=== PATIENT | female | born 1945 | race Caucasian/White ===

== ENCOUNTER → 2017-04-19 13:28 | Outpatient (CLI) | payer MEDICARE, SELFPAY ==
--- NOTE | 2017-04-19 13:34 | MRI_ITS ---
STUDY: MRI BRAIN WITH AND WITHOUT CONTRAST REASON FOR EXAM: Female, 72 years old. Chronic headaches TECHNIQUE: Standardized multiplanar fat and water weighted pulse sequences were obtained. 7 ml of Gadavist contrast material was administered intravenously for the contrast portion of the examination. COMPARISON: CT of the brain on April 17, 2014 FINDINGS: Mild atrophy and periventricular white matter ischemic changes without mass effect or restricted diffusion.. Normal bilateral basal ganglia. Normal thalami. There is no extra-axial fluid accumulation. Normal flow voids within the major intracranial circulation suggesting patency by spin echo criteria. Normal venous enhancement. There is no enhancing intra-axial or extra-axial abnormality. Normal sella turcica, pituitary gland, infundibular stalk, optic chiasm and hypothalamus. Normal tectal plate and pineal gland. Normal midbrain, swati and medulla. Normal cerebellum. Normal basal cisterns. Normal bilateral temporal bones. Normal bilateral internal auditory canals. There are postsurgical changes of the orbits.. There is mild mucosal thickening in the maxillary and ethmoid sinuses.. There are postsurgical changes involving the right maxillary antrum Normal calvarium and skull base. Normal visualized soft tissue structures. Normal visualized upper cervical spine. MRI/Brain W/WO Contrast IMPRESSION: Atrophy and periventricular white matter ischemic changes without evidence for acute infarct. No evidence for obstructive hydrocephalus mass or acute bleed. Bilateral maxillary and ethmoid sinus disease Electronically Signed: Steven Ratliff MD at 22:17 EST , Service support ,
== END ==
PROVIDERS: Family Provider Internal Medicine; PCP Internal Medicine; Visit Provider Internal Medicine
DX: R51 Headache (principal)
CPT/HCPCS: 70553; A9585

== ENCOUNTER → 2017-06-09 11:48 | Outpatient (CLI) | payer MEDICARE, SELFPAY ==
--- NOTE | 2017-06-09 11:52 | RAD_ITS ---
STUDY: X-RAY - THORACIC SPINE REASON FOR EXAM: Female, 72 years old. Chronic pain TECHNIQUE: 2 view(s) of the thoracic spine were obtained. COMPARISON: None. FINDINGS: Normal kyphosis of the thoracic spine. There is no substantial scoliosis. Normal thoracic vertebrae and endplates. Normal disc space heights. The soft tissue structures are unremarkable. RAD/Thoracic Spine 3 Views IMPRESSION: Normal x-ray examination of the thoracic spine. Electronically Signed: Jose Antonio Jensen DO at 0:00 EDT , Service support ,
--- NOTE | 2017-06-09 11:52 | RAD_ITS ---
STUDY: X-RAY - LUMBAR SPINE REASON FOR EXAM: Female, 72 years old. Chronic pain. TECHNIQUE: 5 view(s) of the lumbar spine were obtained. COMPARISON: Thoracic spine, June 09, 2017. FINDINGS: Normal lumbar lordosis. There is slight reversal of lumbar lordosis. There is a normal alignment of the vertebrae. There is multilevel endplate spondylosis of the lumbar vertebrae. There is multi-level degenerative disc disease with multi-level disc space narrowing. There is no evidence of acute fracture or loss of vertebral axial height. There is no demonstrated spondylolysis of the pars interarticulares. There is atherosclerotic calcification of the abdominal aorta without a demonstrated aneurysm. RAD/L/S Spine Min 4 Views IMPRESSION: Degenerative changes of the cervical spine without acute fracture or subluxation. Electronically Signed: Brennan Mike DO at 16:29 EDT Tel [phone], Service support ,
== END ==
PROVIDERS: Family Provider Internal Medicine; PCP Internal Medicine; Visit Provider Internal Medicine
DX: M47.896 Other spondylosis, lumbar region (principal); M51.16 Intervertebral disc disorders with radiculopathy, lumbar region; G89.29 Other chronic pain
CPT/HCPCS: 72072; 72110

== ENCOUNTER → 2017-07-07 09:28 | Outpatient (CLI) | payer MEDICARE, SELFPAY ==
[2017-07-07 10:25] LABS: AST(SGOT) 19 U/L (15-37); Alanine Aminotransfer ALT/SGPT 14 U/L (13-56); Albumin, Serum 3.7 g/dL (3.2-5.0); Alkaline Phosphatase 55 U/L (45-117); Bilirubin, Direct 0.09 mg/dL (0.00-0.30); Cholesterol 199 mg/dL (200); High Density Lipoprotein 80 mg/dL; Protein, Total 6.7 g/dL (6.4-8.2); Thyroid Stim Hormone (TSH) 5.71 uIU/mL (0.358-3.74); Triglycerides 92 mg/dL; Very Low Density Lipoprotein 18 mg/dL (5-40)
== END ==
PROVIDERS: Family Provider Internal Medicine; PCP Internal Medicine; Visit Provider Internal Medicine Cardiovascular Disease
DX: E78.5 Hyperlipidemia, unspecified (principal); R07.9 Chest pain, unspecified
CPT/HCPCS: 36415; 80061; 80076; 84443

== ENCOUNTER → 2017-07-15 06:15 | Outpatient (CLI) | payer MEDICARE, SELFPAY ==
--- NOTE | 2017-07-15 13:07 | STRESSREP ---
Stress Test Report Date: 07/15/2017 Procedure: Pharmacologic stress nuclear imaging study Indications: Chest pain Consent: Per the patient Procedure: The patient underwent pharmacologic (Regadenoson) evaluation with a peak heart rate of 90 beats per minute (60 predicted maximal heart rate) and a peak blood pressure of 158/52 mmHg. The baseline ECG demonstrated sinus rhythm; poor R-wave progression; nonspecific ST and T-wave abnormality. The peak pharmacologic ECG demonstrated no obvious ECG changes. There were no cardiac dysrhythmias pretest, during pharmacologic infusion, or recovery. There was no complaint of chest discomfort during pharmacologic infusion or recovery. The examination was discontinued secondary to completion of protocol. Impression: 1. Pharmacologic (Regadenoson) evaluation 2. Peak pharmacologic ECG with no obvious ECG changes. 3. There were no cardiac dysrhythmias pretest, during pharmacologic infusion, or recovery 4. Nuclear images pending Myocardial perfusion imaging study: Technique: The patient was injected with 11.7 millicuries of technetium 99m Cardiolite and subsequently rest SPECT Cardiolite nuclear imaging was obtained in the horizontal long, vertical long, and short axis views. The patient underwent pharmacologic (Regadenoson) evaluation with a peak heart rate of 90 beats per minute (60 % percent predicted maximal heart rate) and a peak blood pressure of 158/52 mmHg. The patient was injected with 3.5 millicuries of technetium 99m Cardiolite and subsequently stress SPECT Cardiolite nuclear imaging was obtained in the horizontal long, vertical long, and short axis views. A gated Cardiolite study at peak stress was obtained. Interpretation: Rest and stress SPECT Cardiolite nuclear imaging status post realignment, normalization, and attenuation correction demonstrate of uniform tracer uptake and myocardial perfusion appearing within normal limits. There is end systolic thickening and brightening. The gated Cardiolite study demonstrates myocardial thickening and inward wall motion. The reported LVEF is 70 %. Impression: 1. Rest and stress SPECT Cardiolite nuclear imaging demonstrate relative uniform tracer uptake and myocardial perfusion appearing within normal limits. 2. The gated Cardiolite study reports an LVEF of 70 %. This note was generated with [facility] software. It may contain incorrect words, spelling, and punctuation that were not noted in checking the note before signing.
== END ==
PROVIDERS: Family Provider Internal Medicine; PCP Internal Medicine; Visit Provider Internal Medicine Cardiovascular Disease
DX: I25.10 Atherosclerotic heart disease of native coronary artery without angina pectoris (principal); I48.0 Paroxysmal atrial fibrillation; I10 Essential (primary) hypertension; E78.5 Hyperlipidemia, unspecified; R07.9 Chest pain, unspecified
CPT/HCPCS: 78452; 93017; A9500; A4216; J2785

== ENCOUNTER → 2017-08-12 13:29 | Outpatient (CLI) | payer MEDICARE, SELFPAY ==
[2017-08-12 15:22] LABS: Thyroid Stim Hormone (TSH) 2.85 uIU/mL (0.358-3.74)
== END ==
PROVIDERS: Family Provider Internal Medicine; PCP Internal Medicine; Visit Provider Internal Medicine Cardiovascular Disease
DX: E03.9 Hypothyroidism, unspecified (principal)
CPT/HCPCS: 36415; 84443

== ENCOUNTER 2017-08-20 12:00 | Outpatient (RCR) | payer MEDICARE, SELFPAY ==
--- NOTE | 2017-07-07 14:27 | HP.PTEVAL_ITS ---
Patient's Visit Information LUPE ALCOCER is a 72 year old F referred to Physical Therapy by Zuri Gutierrez DO with a diagnosis of LOW BACK PAIN. Date of Evaluation: 07/07/17 Physical Therapist: Domenic Ayala PT, - Visit Plan Frequency: 2x /Week Duration: 5WEEKS Plan: POSTURAL EX'S,DLS ,MODALTIES - Subjective Subjective: This 72 y/o female presents with physical therapy low back pain for many years. Patient has symmtrical lumbar pain desribed ache. Patient seen DR barajas PT ,did x-rays. Symptoms worse with standing 5min ,walking,bending lifting. Symptoms resting in bed,ice. Patient has TENS unit. Denies parathesia/ tingling. Bowel/bladder good. Coughing/sneeezing increase symptoms. Sleeping good at night.Patient has h/o prior treatment PT cervical/lumbar. VOCATION: retired. SOCIAL: - Pain Bilateral Back Pain Intensity (Out of 10): 5 Pain Intensity Range: 10 - Objective POSTURE: mild foward posture,reduce lordosis ,mild thoracic kyphosis. GAIT: reciprocal pattern ,mild foward posture. NEURO:denies parathesia/tingling , reflexes L3-4,L4-5,L5-S1. PALAPTION: unremarkable. SYMMTRIES : align. MMT: quads/hams 4/5,4-/5,ankle 5/5. LUMBAR ROM: flexion min /mod loss ,mod extension ,side glides min loss. FLEXABLITY: hams min tight - Special Tests L/S Slump test left side: Negative L/S Slump test right side: Negative L/S Left Straight Leg Raise: Negative L/S Right Straight Leg Raise: Negative Lumbar Standing: Flexion - Mechanical Response: No effect Lumbar Standing: Flexion - Symptoms During Testing: Increases Lumbar Standing: Flexion - Symptoms After Testing: No worse Lumbar Standing: Extension - Mechanical Response: No effect Lumbar Standing: Extension - Symptoms During Testing: Increases Lumbar Standing: Extension - Symptoms After Testing: Worse - Goals Goal 1:: Independant with HEP. Goal Time Frame: 4-6 Weeks Goal 2:: Patient to be Independant with posture for ADL'S Goal Time Frame: 4-6 Weeks Goal 3:: Patient to decrease lumbar pain by 50% or greater to improve function Goal Time Frame: 4-6 Weeks Goal 4:: Patient improve lumbar ROM for function of recovery Goal Time Frame: 4-6 Weeks Goal 5:: Patient be able to perform ADL'S and housework tasks with min limiations Goal Time Frame: 4-6 Weeks - Rehabilitation Potential Physical Therapy Diagnosis: Patient has symmtrical lumbar pain which impairs ROM ,strength thus causes impairments with gait ,standing and ADL'S Rehabilitation Potential: Good - Anticipated Interventions Patient/Client Instruction: Educate patient on: Condition, Plan of Care For the Purpose of:: To decrease pain, To increase ROM, To improve muscle performance and motor function, To improve ability to perform ADL's, To improve ability of physical actions for home/community/work/leisure, To improve health of tissue, To decrease soft tissue restriction, To increase flexibility/ROM, To reduce risk of recurrence, To improve ability to perform tasks related to life management Therapeutic Exercise to Include: Strength training, Body mechanics, Postural training, Dynamic Lumbar Stabilization For the Purpose of:: To decrease pain, To increase ROM, To improve muscle performance and motor function, To increase tolerance to activity/condition/ position, To improve performance and independence with ADL's, To improve ability of physical actions for home/community/work/leisure, To improve health of tissue, To decrease soft tissue restriction, To improve ability to perform tasks related to life management Thank you for the opportunity to evaluate your patient. For Medicare and Medicare HMO plans, please review the plan of care and approve it. It will need to be FAXED BACK to us at [phone] for Medicare purposes. Please let me know if there are questions or concerns regarding this plan of care. Physician Signature: Date:
--- NOTE | 2017-08-06 12:06 | HP.PTREVAL_ITS ---
Zuri Gutierrez, DO, It has been my pleasure to treat LUPE ALCOCER over the last 7 visits for LOW BACK PAIN. Please see the progress note below for an update on the physical therapy plan of care! Subjective: Pt still has back pain. She reports that this is helping. She feels she is one big pain from head to knees with THOMPSON's. Pt is doing her exercises at home. Pt reports that she feels she can do her ADl's with min difficulty but stairs and laundry to the basement are hard. Objective/Function: Pt subjectively reports that the longer the day goes on the worse her posture gets. Stairs: up and down stairs recip with 1 hand rail. sit to stand: able to stand without UE support but a little unsteady. LUMBAR ROM: flexion 75% normal ROM, Ext 50% normal ROM, SB B 75% normal ROM ,. FLEXABLITY: hams min tight B ( alittle pain behind the knees with SLR testing). Plan Plan: Try to get 3 additiional visits from insurance to transfer to [facility] for core stability, Le strength, stretching..... Goals Goal 1:: Independant with HEP. Goal Time Frame: 4-6 Weeks Goal Progress: Goal Met Goal 2:: Patient to be Independant with posture for ADL'S Goal Time Frame: 4-6 Weeks Goal Progress: Progressing Goal 3:: Patient to decrease lumbar pain by 50% or greater to improve function Goal Time Frame: 4-6 Weeks Goal Progress: Progressing Goal 4:: Patient improve lumbar ROM for function of recovery Goal Time Frame: 4-6 Weeks Goal 5:: Patient be able to perform ADL'S and housework tasks with min limiations Goal Time Frame: 4-6 Weeks Goal Progress: Goal Met Anticipated Interventions Patient/Client Instruction: Educate patient on: Condition, Plan of Care For the Purpose of:: To decrease pain, To increase ROM, To improve muscle performance and motor function, To improve ability to perform ADL's, To improve ability of physical actions for home/community/work/leisure, To improve health of tissue, To decrease soft tissue restriction, To increase flexibility/ROM, To reduce risk of recurrence, To improve ability to perform tasks related to life management Therapeutic Exercise to Include: Strength training, Body mechanics, Postural training, Dynamic Lumbar Stabilization For the Purpose of:: To decrease pain, To increase ROM, To improve muscle performance and motor function, To increase tolerance to activity/condition/ position, To improve performance and independence with ADL's, To improve ability of physical actions for home/community/work/leisure, To improve health of tissue, To decrease soft tissue restriction, To improve ability to perform tasks related to life management Please do not hesitate to contact me at [phone] by phone or Fax: if you have questions or concerns regarding this new plan of care! Sincerely, Shanon Ferrara
--- NOTE | 2017-10-29 07:26 | HP.PTDCNRP_ITS ---
HP - Discharge Summary (1) - Patient Information LUPE ALCOCER was seen in my office for initial evaluation on 07/07/17. The following Plan of Care was established for this patient: Initial Frequency: 2x /Week Initial Duration: 5WEEKS - Anticipated Interventions Patient/Client Instruction: Educate patient on: Condition, Plan of Care For the Purpose of:: To decrease pain, To increase ROM, To improve muscle performance and motor function, To improve ability to perform ADL's, To improve ability of physical actions for home/community/work/leisure, To improve health of tissue, To decrease soft tissue restriction, To increase flexibility/ROM, To reduce risk of recurrence, To improve ability to perform tasks related to life management Therapeutic Exercise to Include: Strength training, Body mechanics, Postural training, Dynamic Lumbar Stabilization For the Purpose of:: To decrease pain, To increase ROM, To improve muscle performance and motor function, To increase tolerance to activity/condition/ position, To improve performance and independence with ADL's, To improve ability of physical actions for home/community/work/leisure, To improve health of tissue, To decrease soft tissue restriction, To improve ability to perform tasks related to life management This patient was last seen in our office 08/20/17. Pertinent comments regarding their Physical therapy will appear below: This patient seen for PT for low back pain for 9 visits DLS ,postural ex's , modalities for pain relieve then had a MRI . At this point ,patient is d/c . At this point I will be discontinuing this patient from physical therapy. I would be happy to see this patient again in the future if found appropriate by the physician. Thank you! Domenic Ayala, PT,
== END 2017-08-20 19:00 | disposition home or self-care (01) ==
LOC: PT 12:00
PROVIDERS: Family Provider Internal Medicine; PCP Internal Medicine; Visit Provider Internal Medicine
DX: M54.5 Low back pain (principal); E78.5 Hyperlipidemia, unspecified; R07.9 Chest pain, unspecified
CPT/HCPCS: 36415; 80061; 80076; 84443; 97035; 97110; 97162; 97530

== ENCOUNTER → 2017-08-25 16:27 | Outpatient (CLI) | payer MEDICARE, SELFPAY ==
--- NOTE | 2017-08-25 16:27 | DT_ITS ---
This patient was seen during an EMR downtime August 23, 2017 - August 30, 2017. This patient may have a combination of paper and electronic documentation or all paper documentation. All documentation is viewable within the e-chart portion of [facility] for each patient visit.
--- NOTE | 2017-08-25 16:30 | MRI_ITS ---
STUDY: MRI LUMBAR SPINE WITHOUT CONTRAST REASON FOR EXAM: Female, 72 years old. chronic low back pain, nki, no radiculopathy. TECHNIQUE: Standardized fat and water weighted pulse sequences were obtained in the sagittal and axial planes. COMPARISON: None FINDINGS: Normal lumbar lordosis. There is no substantial scoliosis. Normal conus medullaris that terminates at the L1 L1-2: There is mild disc space narrowing and anterior spondylosis. There is no significant central canal or foraminal stenosis. L2-3: There is moderate disc space narrowing and endplate spondylosis. There is a mild disc bulge asymmetric to the left with mild left foraminal stenosis. There is facet hypertrophy with mild central canal stenosis. There is no significant right foraminal stenosis. L3-4: There is moderate disc space narrowing and endplate spondylosis. There is a mild disc bulge and facet hypertrophy with mild central canal stenosis. There is mild bilateral foraminal stenosis. L4-5: There is moderate disc space narrowing and endplate spondylosis. There is moderate disc bulge asymmetric to the right with moderate right foraminal stenosis. There is facet hypertrophy with mild central canal and mild left foraminal stenosis. L5-S1: There is moderate disc space narrowing and endplate spondylosis. There is a mild disc bulge and facet arthropathy without significant central stenosis. There is moderate right and mild left foraminal stenosis. Normal visualized sacral ala. Normal visualized paraspinous soft tissue structures. MRI/Spine Lumbar (Routine) IMPRESSION: L4/L5: Moderate right foraminal stenosis. L5/S1: Moderate right foraminal stenosis Electronically Signed: Carlos Pizano MD at 8:39 EDT Tel , Service support ,
== END ==
PROVIDERS: Family Provider Internal Medicine; PCP Internal Medicine; Visit Provider Internal Medicine
DX: M54.5 Low back pain (principal)
CPT/HCPCS: 72148

== ENCOUNTER → 2017-11-10 12:41 | Outpatient (CLI) | payer MEDICARE, SELFPAY ==
[2017-11-10 13:37] LABS: Absolute Lymphocyte Count 1.23 X10^3/ul (0.83-4.51); Absolute Neutrophil Count 3.1 X10^3/uL (2.0-7.7); Basophil# 0.03 X10^3/uL; Basophil% 0.6 % (0-1); Eosinophil# 0.05 X10^3/uL; Hematocrit 36.1 % (37-47); Hemoglobin 11.9 g/dl (12.0-15.0); Lymphocyte # 1.23 X10^3/ul (4.0); Lymphocyte % 25.7 % (19-41); Mean Corpuscular Hgb 31.5 pg (27.0-32.0); Mean Corpuscular Volume 95.5 fL (81-99); Mean Platelet Vol. 10.2 fl (6.2-12.0); Monocyte# 0.39 X10^3/uL; Monocyte% 8.2 % (0-10); Neutrophil # 3.08 X10^3/uL (2.7-7.7); Neutrophil % 64.5 % (47-70); POSITIVE COUNT NO; POSITIVE DIFFERENTIAL NO; POSITIVE MORPHOLOGY NO; Platelet Count 274 K/mm3 (150-450); RBC Distribution Width CV 12.4 % (11.6-14.6); RBC Distribution Width SD 42.2 fl (35.1-43.9); Red Blood Count 3.78 M/mm3 (4.2-5.4); White Blood Count 4.8 K/mm3 (4.4-11.0)
[2017-11-10 14:05] LABS: Hemoglobin A1c 5.5 % (4.2-6.3)
[2017-11-10 14:10] LABS: BUN 30 mg/dL (7-18); Creatinine, Serum 1.56 mg/dL (0.55-1.02); EST Glomerular Filtration Rate 35 mL/min (>60); Glucose 96 mg/dL (74-106)
[2017-11-10 14:11] LABS: ALB/GLOB Ratio 1.2 RATIO (0.9-2.4); AST(SGOT) 25 U/L (15-37); Alanine Aminotransfer ALT/SGPT 21 U/L (13-56); Albumin, Serum 4.3 g/dL (3.2-5.0); Alkaline Phosphatase 39 U/L (45-117); Anion Gap 9 (5-15); BUN/Creat Ratio 19.2 RATIO (10-20); Calcium,Total 9.2 mg/dL (8.5-10.1); Chloride 102 mmol/L (98-107); Cholesterol 180 mg/dL (200); Est Glom Filt Rate - Afr Amer 42 mL/min (>60); Globulin 3.5 g/dL (2.2-4.2); High Density Lipoprotein 76 mg/dL; Potassium 3.7 mmol/L (3.5-5.1); Protein, Total 7.8 g/dL (6.4-8.2); Sodium Level 136 mmol/L (136-145); Thyroid Stim Hormone (TSH) 4.65 uIU/mL (0.358-3.74); Triglycerides 88 mg/dL; Very Low Density Lipoprotein 18 mg/dL (5-40)
== END ==
PROVIDERS: Family Provider Internal Medicine; PCP Internal Medicine; Visit Provider Internal Medicine
DX: R73.09 Other abnormal glucose (principal); E78.4 Other hyperlipidemia; R94.6 Abnormal results of thyroid function studies
CPT/HCPCS: 36415; 80053; 80061; 83036; 84443; 85025

== ENCOUNTER → 2017-12-10 10:06 | Outpatient (CLI) | payer MEDICARE, SELFPAY ==
--- NOTE | 2017-12-10 10:09 | CDU_ITS ---
Reason For Study: Stenosis Rt. Velocities/BP Lt. Velocities/BP Prox CCA 84.4/15.8 cm/sec. Prox CCA 89.6/9.43 cm/sec. Mid CCA 80.9/13.5 cm/sec. Mid CCA 101/19.6 cm/sec. Dist CCA 85/19.3 cm/sec. Dist CCA 83.3/17.3 cm/sec. Prox ICA 84.4/18.2 cm/sec. Prox ICA 105/18.1 cm/sec. Mid ICA 93.8/24.6 cm/sec. Mid ICA 86.6/17 cm/sec. Dist ICA 107/32.2 cm/sec. Dist ICA 87.9/21.7 cm/sec. Rt. ICA/CCA = 1.27. Lt. ICA/CCA = 1.17. Prox ECA 123 cm/sec. Prox ECA 87.9 cm/sec. Rt. Vert. 54.2/10.2 cm/sec. Lt. Vert. 64/15.3 cm/sec. Right Extracranial There is intimal thickening but no significant atherosclerotic plaque noted in the right common carotid artery. There is heterogeneous, irregular atherosclerotic plaque noted in the right internal carotid artery. There is heterogeneous, irregular atherosclerotic plaque noted in the right external carotid artery. Antegrade flow is noted in the right vertebral artery. Left Extracranial There is intimal thickening but no significant atherosclerotic plaque noted in the left common carotid artery. There is heterogeneous, smooth atherosclerotic plaque noted in the left internal carotid artery. There is heterogeneous, smooth atherosclerotic plaque noted in the left external carotid artery. Antegrade flow is noted in the left vertebral artery. Procedure Carotid Duplex 25072. Exam performed in department. Interpretation Summary Mild (<50%) stenosis right extracranial internal carotid. Mild (<50%) stenosis left extracranial internal carotid. Flow within the vertebral arteries is antegrade bilaterally. Ordering Physician: Zuri Gutierrez Referring Physician: Zuri Gutierrez Performed By: Riaz Ashley RVT and Student
--- NOTE | 2017-12-10 10:48 | BI_ITS ---
MAMMOGRAPHY - BILATERAL SCREENING REASON FOR EXAM: Female, 72 years old. Routine annual screening examination. PERTINENT HISTORY: Sister with breast cancer. TECHNIQUE: Digital bilateral breast pee (3D mammographic acquisition) in the CC and MLO projections. 2-D mediolateral oblique (MLO) and craniocaudad (CC) views of both breasts were obtained. CAD: Full Field Digital Mammography with Computer Added Detection was performed. COMPARISON: Comparison is made with prior examination dated November 19, 2016 and November 19, 2015. FINDINGS: Breast Composition: The breasts are heterogeneously dense, which may obscure small masses. There are no dominant masses or suspicious calcifications. Stable bilateral secretory calcification. No other significant abnormalities are identified. There has been no significant change since the prior study. BI/SCREENING MAMM (CAD), BILAT IMPRESSION: Stable bilateral screening mammogram. Yearly follow-up mammogram recommended. (A) ASSESSMENT CATEGORY: BIRADS Category 2: Benign. A letter regarding these results will be sent to the patient by the facility within 30 days. Approximately 10% of breast cancers are not detected by mammography. A normal mammogram should not delay biopsy of a clinically suspicious abnormality. [id number] Electronically Signed: Johnny Gilman MD at 13:14 EDT Tel [phone], Service support ,
== END ==
PROVIDERS: Family Provider Internal Medicine; PCP Internal Medicine; Visit Provider Internal Medicine
DX: I65.23 Occlusion and stenosis of bilateral carotid arteries (principal); Z12.31 Encounter for screening mammogram for malignant neoplasm of breast
CPT/HCPCS: 77063; 77067; 93880

== ENCOUNTER → 2017-12-23 11:25 | Outpatient (CLI) | payer MEDICARE, SELFPAY ==
--- NOTE | 2017-12-23 11:30 | RAD_ITS ---
STUDY: X-RAY - THORACIC SPINE REASON FOR EXAM: Female, 72 years old. Upper back pain TECHNIQUE: 2 view(s) of the thoracic spine were obtained. COMPARISON: 06/09/2017 FINDINGS: There is an increase in the normal thoracic kyphosis. There is no substantial scoliosis. There is multilevel endplate spondylosis of the thoracic vertebrae. There is multilevel disc space narrowing of the thoracic spine. The soft tissue structures are unremarkable. RAD/Thoracic Spine 2 Views IMPRESSION: Multilevel degenerative changes, no demonstrated fracture Electronically Signed: Deshawn Odonnell MD at 15:23 EDT , Service support ,
--- NOTE | 2017-12-23 11:31 | RAD_ITS ---
STUDY: X-RAY - CERVICAL SPINE REASON FOR EXAM: Female, 72 years old. Neck pain and headache TECHNIQUE: 3 view(s) of the cervical spine were obtained. COMPARISON: 2015 FINDINGS: Normal anterior atlantoaxial articulation. Normal odontoid process. Normal cervical lordosis. There is multi-level endplate spondylosis. There is multi-level degenerative disc disease with multilevel disc space narrowing. The soft tissue structures are unremarkable. There is no demonstrated fracture of the cervical spine. RAD/Cerv Spine 2 or 3 Views IMPRESSION: Multilevel degenerative changes, no demonstrated fracture Electronically Signed: Deshawn Odonnell MD at 15:23 EDT , Service support ,
== END ==
PROVIDERS: Family Provider Internal Medicine; PCP Internal Medicine; Referring Provider Nurse Practitioner Family; Visit Provider Nurse Practitioner Family
DX: M54.6 Pain in thoracic spine (principal); M54.2 Cervicalgia
CPT/HCPCS: 72040; 72070

== ENCOUNTER → 2018-02-16 09:09 | Outpatient (CLI) | payer MEDICARE, SELFPAY ==
[2018-01-25 11:19] VITALS: BMI 25.0
[2018-02-16 10:30] LABS: Absolute Lymphocyte Count 1.48 X10^3/ul (0.83-4.51); Basophil# 0.04 X10^3/uL; Eosinophil# 0.13 X10^3/uL; Eosinophils% 3.2 % (0-5); Hematocrit 36.7 % (37-47); Hemoglobin 11.2 g/dl (12.0-15.0); Lymphocyte # 1.48 X10^3/ul (4.0); Lymphocyte % 36.8 % (19-41); Mean Corp Hgb Conc 30.5 g/gl (32-36); Mean Corpuscular Hgb 30.8 pg (27.0-32.0); Mean Corpuscular Volume 100.8 fL (81-99); Mean Platelet Vol. 10.2 fl (6.2-12.0); Monocyte# 0.37 X10^3/uL; Monocyte% 9.2 % (0-10); Neutrophil % 49.8 % (47-70); Platelet Count 249 K/mm3 (150-450); RBC Distribution Width CV 13.1 % (11.6-14.6); RBC Distribution Width SD 48.1 fl (35.1-43.9); Red Blood Count 3.64 M/mm3 (4.2-5.4)
[2018-02-16 10:41] LABS: POSITIVE COUNT NO; POSITIVE DIFFERENTIAL NO; POSITIVE MORPHOLOGY NO
[2018-02-16 11:01] LABS: Hemoglobin A1c 5.5 % (4.2-6.3)
[2018-02-16 11:13] LABS: ALB/GLOB Ratio 1.1 RATIO (0.9-2.4); AST(SGOT) 12 U/L (15-37); Alanine Aminotransfer ALT/SGPT 17 U/L (13-56); Albumin, Serum 3.6 g/dL (3.2-5.0); Alkaline Phosphatase 40 U/L (45-117); Anion Gap 7 (5-15); BUN 25 mg/dL (7-18); BUN/Creat Ratio 20.3 RATIO (10-20); Calcium,Total 9.2 mg/dL (8.5-10.1); Chloride 108 mmol/L (98-107); Cholesterol 183 mg/dL (200); Creatinine, Serum 1.23 mg/dL (0.55-1.02); EST Glomerular Filtration Rate 46 mL/min (>60); Est Glom Filt Rate - Afr Amer 55 mL/min (>60); Globulin 3.4 g/dL (2.2-4.2); Glucose 90 mg/dL (74-106); High Density Lipoprotein 80 mg/dL; Potassium 4.4 mmol/L (3.5-5.1); Sodium Level 144 mmol/L (136-145); Triglycerides 82 mg/dL; Very Low Density Lipoprotein 16 mg/dL (5-40)
--- OUTSIDE RECORDS SUMMARY | 2018-04-13 15:05 | XMS RPT_ITS | Continuity of Care Document ---
:1945 Author Organization [facility] Address [address] [facility] [address] [place] [address] Phone Care Team Providers Name Role Phone Enrike Jaimes DO Unavailable Cipriano JC, Mike Avelar Unavailable Dayron Monique Unavailable Domenic Navarrete Nixa Unavailable Steven Carlisle MD Unavailable [facility]ly [facility], [facility] Unavailable Phong Graham Unavailable Mao Benitez Unavailable Unavailable Sonam Adams Unavailable Unavailable Albert JC, Madyson Roman Unavailable Unavailable Unavailable Problems Name Dates Details Abnormal stress test (R94.39, 794.39) Status: Active Abnormal TSH (R79.89, 790.6) Comments: adjust meds Status: Active Actinic keratoses (L57.0, 702.0) Comments: cryo x 1 lesion left foreram 45 sec with good response consent signed Status: Active Arthritis (M19.90, 716.90) Status: Active Atrial fibrillation (I48.91, 427.31) Status: Active Bilateral carotid artery stenosis (I65.23, 433.10) Comments: risk factor modificaion Status: Active BMI 25.0-25.9,adult (Z68.25, V85.21) Status: Active Bronchitis, acute (J20.9, 466.0) Status: Active Chest pain at rest (R07.9, 786.50) Status: Active Chronic headaches (R51, 784.0) Comments: and memory loss- abnormal ct of brain Status: Active Chronic low back pain without sciatica (M54.5, 724.2) Status: Active Chronic right shoulder pain (M25.511, 719.41) Status: Active Chronic thoracic back pain (M54.6, 724.1) Status: Active COPD (chronic obstructive pulmonary disease) (J44.9, 496) Status: Active Coronary artery disease (I25.10, 414.00) Status: Active Deliveries (Parity) Comments: 1. 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, 724.02) Status: Active Gastroesophageal reflux disease without esophagitis (K21.9, 530.81) Comments: chronic stable-continue present regimen Status: Active Headache (R51, 784.0) Status: Active Hypertension, benign (I10, 401.1) Comments: chronic stable-continue present regimen Status: Active 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 (G43.719, 346.71) Status: Active Low back pain (Renamed from Lumbago) (M54.5, 724.2) Status: Active Lung nodule (R91.1, 793.11) Status: Active [facility] Physical Status: Active [facility] PHYSICAL Status: Active Medicare annual wellness visit, initial (Z00.00, V70.0) Status: Active Memory loss (R41.3, 780.93) Comments: she see neuro Status: Active Need for prophylactic vaccination and inoculation against influenza (Renamed from Need for immunization against influenza) (Z23, V04.81) Status: Active Need for prophylactic vaccination and inoculation against influenza (Renamed from Need for immunization against influenza) (Z23, V04.81) Status: Active Obstructive sleep apnea, adult (G47.33, 327.23) Status: Active Orthostasis (I95.1, 458.0) Comments: push fluids support hose slow position change and change losarten to lunch Status: Active Other hyperlipidemia (E78.49, 272.4) Comments: good control Status: Active Other osteoporosis (M81.8, 733.09) Comments: we are ordering prolia Status: Active Pneumococcal vaccination given (Z23, V06.6) Status: Active Postmenopausal (Renamed from Postmenopausal status) (Z78.0, V49.81) Status: Active Pregnancies () Comments: 1. Status: Active Pulmonary emboli (I26.99, 415.19) Comments: last cta shows improve Status: Active Thoracic spine pain (M54.6, 724.1) Comments: has had pt nsaids and xrays still painful Status: Active Tobacco abuse, in remission (Renamed from Tobacco dependence in remission) (F17.201, V15.82) Status: Active Trigger finger of left thumb (M65.312, 727.03) Status: Active Unspecified Diagnosis Status: Active Medications Name Dates Details Advair Diskus 250-50 MCG/DOSE Inhalation Aerosol Powder Breath Activated 1 puff Aero Pow Br Act bid for 90 days Quantity: 3 {Disk} Refills: 3 Ordered:25-Jan-2017 Fast DO Enrike AFast DO, Enrike A Start : 25-Jan-2017 Active AMIODARONE HCL, 200MG (Oral Tablet) 1 (one) Tablet Tablet two times daily for 30 days Quantity: 60 {Tablet} Refills: 0 Ordered:02-Jul-2015 Fast DO, Enrike AFast DO, Enrike A Start : 02-Jul-2015 Active AmLODIPine Besylate 10 MG Oral Tablet 1 (one) Tablet daily for 90 days Quantity: 90 {Tablet} Refills: 3 Ordered:09-Oct-2017 Faviocatalina HUSAINnj MCDUFFIE, Enrike A Start : 09-Oct-2017 Active ASPIRIN LOW DOSE, 81MG (Oral Tablet) 1 tab daily (81 MG) Active Atorvastatin Calcium 80 MG Oral Tablet 1 (one) Tablet daily for 0 days Quantity: 90 {Tablet} Refills: 3 Ordered:22-Feb-2018 Enrike LISHAnj DO, Enrike A Start : 22-Feb-2018 Active CALCIUM, 500MG (Oral Tablet) 2 tabs daily (500 MG) Active Carvedilol 25 MG Oral Tablet 1/2 Tablet bid for 0 days Quantity: 90 {Tablet} Refills: 3 Ordered:07-Mar-2018 Favioa LISHAnj MCDUFFIE, Enrike A Start : 07-Mar-2018 Active Dexilant 60 MG Oral Capsule Delayed Release 1 (one) Capsule DR daily for 90 days Quantity: 90 {Capsule} Refills: 3 Ordered:26-Jan-2018 Mao Benitez Start : 26-Jan-2018 Active DULoxetine HCl 60 MG Oral Capsule Delayed Release Particles 1 (one) Capsule qd in evening for 0 days Quantity: 90 {Capsule} Refills: 3 Ordered:22-Feb-2018 Faviocatalina HUSAINnj MCDUFFIE, Enrike A Start : 22-Feb-2018 Active IPRATROPIUM BROMIDE, 0.06% (Nasal Solution) 2 sprays each nostril daily (0.06 %) Active Isosorbide Dinitrate 30 MG Oral Tablet 1 tab Tablet daily for 0 days Quantity: 90 {Tablet} Refills: 3 Ordered:22-Feb-2018 Faviocatalina HUSAINnj MCDUFFIE, Enrike A Start : 22-Feb-2018 Active Levothyroxine Sodium 25 MCG Oral Tablet 1 (one) Tablet qd for 0 days Quantity: 114 {Tablet} Refills: 3 Ordered:22-Feb-2018 Favioa LISHAnj DO, Enrike A Start : 22-Feb-2018 Active Comments:2 on sat and sun Losartan Potassium-HCTZ 100-25 MG Oral Tablet 1 (one) Tablet qd for 90 days Quantity: 90 {Tablet} Refills: 3 Ordered:26-Jan-2018 Mao Benitez Start : 26-Jan-2018 Active Meloxicam 15 MG Oral Tablet 1 (one) Tablet daily for 90 days Quantity: 90 {Tablet} Refills: 3 Ordered:05-Aug-2017 Enrike Jaimes DO, DO, Enrike Arnold Start : 05-Aug-2017 Active Montelukast Sodium 10 MG Oral Tablet 1 (one) Tablet daily for 90 days Quantity: 90 {Tablet} Refills: 3 Ordered:01-Mar-2018 Enrike Jaimes DO, DO, Enrike Arnold Start : 01-Mar-2018 Active MULTIVITAMIN (PO Tab) 1 (one) daily Active Prolia 60 MG/ML Subcutaneous Solution 1 (one) Solution Solution 1 injection every 6 months for 0 days Quantity: 1 {Pre-filled_Pen_Syringe} Refills: 1 Ordered:12-Jul-2017 Enrike Jaimes DO, DO, Debra A Start : 12-Jul-2017 Active Comments:Pt gets funding thru the [employer] so send a bill to either them or the pt and then they will [id number] 07/28/16 RaNITidine HCl 300 MG Oral Tablet 1 tab Tablet daily for 90 days Quantity: 90 {Tablet} Refills: 3 Ordered:26-Jan-2018 Mao Benitez Start : 26-Jan-2018 Active VITAMIN E, 400UNIT (Oral Tablet) 1 (one) daily (400 UNIT) Active Xarelto 20 MG Oral Tablet 1 (one) Tablet daily for 0 days Quantity: 30 {Tablet} Refills: 3 Ordered:17-Jan-2018 Enrike Jaimes DO, DO, Enrike Arnold Start : 17-Jan-2018 Active Cefdinir 300 MG Oral Capsule 1 (one) Capsule bid for 0 days Quantity: 28 {Capsule} Refills: 0 Ordered:09-Jun-2017 Mao Benitez Start : 13-Apr-2017 End : 09-Jun-2017 Inactive Hydrocodone-Acetaminophen 5-325 MG Oral Tablet 1 (one) Tablet q 8 hours prn for 0 days Quantity: 20 {Tablet} Refills: 0 Ordered:17-Nov-2017 MONICA Ruelas Start : 13-Aug-2017 End : 17-Nov-2017 Inactive Comments:twenty Klor-Con M20 20 MEQ Oral Tablet Extended Release 1 (one) Tablet ER bid for 5 days Quantity: 10 {Tablet} Refills: 0 Ordered:09-Apr-2016 Madyson Montiel MD Start : 09-Apr-2016 End : 14-Apr-2016 Inactive LEVAQUIN, 500MG (Oral Tablet) 1 (one) Tablet daily [id number] for 14 days Quantity: 14 {Tablet} Refills: 0 Ordered:23-Apr-2014 Enrike Jaimes DO, DO Enrike A Start : 23-Apr-2014 End : 07-May-2014 Inactive Comments:with probiotic PredniSONE 10 MG Oral Tablet 3 (three) Tablet pills for 3 days 2 pils for 3 days 1 pill for 3 days for 0 days Quantity: 18 {Tablet} Refills: 0 Ordered:26-Mar-2017 Enrike Jaimes DOnj Enrike A Start : 02-Feb-2017 End : 26-Mar-2017 Inactive Comments:take with food in [facility] meloxicam while on this Promethazine HCl 12.5 MG Oral Tablet 1 (one) Tablet q 6 hours prn for 0 days Quantity: 20 {Tablet} Refills: 0 Ordered:14-Apr-2016 MONICA Ruelas Start : 09-Apr-2016 End : 14-Apr-2016 Inactive Comments:twenty TRAMADOL HCL, 50MG (Oral Tablet) 1 (one) Tablet daily for 30 days Quantity: 30 {Tablet} Refills: 0 Ordered:24-Oct-2014 Enrike Jaimes DO, DO Enrike A Start : 24-Oct-2014 End : 23-Nov-2014 Inactive Comments:thirty VITAMIN D3, 1000UNIT (Oral Capsule) 1 cap daily (1000 UNIT) Inactive Amitriptyline HCl 10 MG Oral Tablet 2 (two) Tablet daily for 90 days Quantity: 180 {Tablet} Refills: 3 Ordered:04-Sep-2016 Sonam Adams Start : 31-May-2015 End : 04-Sep-2016 Discontinued DIVALPROEX SODIUM, 500MG (Oral Tablet Delayed Release) [address] daily for 0 days Quantity: 60 {Tablet} Refills: 0 Ordered:13-Nov-2014 Enrike Jaimes DO, DO Enrike A Start : 13-Nov-2014 End : 13-Nov-2014 Discontinued Comments:Dr. Navarrete RANITIDINE HCL, 300MG (Oral Capsule) 1 cap daily (300 MG) End : 17-Jul-2015 Discontinued Allergies and Adverse Reactions Name Dates Details No Known Allergies (Allergy) Onset: 25-Dec-2016 Status: Active No Known Drug Allergies (Allergy) Onset: 16-Apr-2014 Status: Active Past Medical History Name Dates Details Abnormal CT of the chest (R93.89, 793.2) Status: Resolved as of 16-Nov-2017 Abnormal urine (R82.90, 791.9) Status: Inactive as of 18-Dec-2016 Acute bronchitis (J20.9, 466.0) Status: Resolved as of 16-Nov-2017 Acute pain of left knee (M25.562, 719.46) Comments: seeing knapic Status: Resolved as of 18-Dec-2016 Acute sinusitis (J01.90, 461.9) Status: Resolved as of 16-Nov-2017 Allergic rhinitis (J30.9, 477.9) Status: Inactive as of 09-Jun-2017 Anemia (D64.9, 285.9) Status: Resolved as of 16-Nov-2017 Atypical chest pain (R07.89, 786.59) Comments: think fibro - has had thorough cardio pulm workup and tender to touch on exam Status: Resolved as of 18-Dec-2016 BMI 22.0-22.9, adult (Z68.22, V85.1) Status: Inactive as of 09-Jun-2017 BMI 23.0-23.9, adult (Z68.23, V85.1) Status: Inactive as of 22-Feb-2018 BMI 24.0-24.9, adult (Z68.24, V85.1) Status: Resolved as of 16-Nov-2017 BMI 24.0-24.9, adult (Z68.24, V85.1) Status: Resolved as of 17-Nov-2017 BMI 25.0-25.9,adult (Z68.25, V85.21) Status: Resolved as of 18-Dec-2016 Body mass index (BMI) 23.0-23.9, adult (Z68.23, V85.1) Status: Resolved as of 18-Dec-2016 Chest pain, unspecified type (R07.9, 786.50) Comments: has had 2 stress test in last month and cta of chest which show clots gone and had rencent pneumonia- so will followup onthat?? wonder musclular?rib out of place Status: Resolved as of 18-Dec-2016 COPD exacerbation (J44.1, 491.21) Status: Resolved as of 16-Nov-2017 Cough (R05, 786.2) Status: Inactive as of 09-Jun-2017 Cough (R05, 786.2) Comments: see pulm Status: Resolved as of 25-Sep-2014 D-dimer, elevated (R79.89, 790.92) Status: Resolved as of 23-Apr-2014 Dehydration (E86.0, 276.51) Comments: had liter of fluid last , feeling better, needs labs checked today been taking potassium bid doing betetr now eating and drinking now. Status: Resolved as of 14-Apr-2016 Drug toxicity (R89.2, 796.0) Status: Resolved as of 14-Jun-2014 Encounter for screening mammogram for breast cancer (Renamed from Encounter for screening mammogram for malignant neoplasm of breast) (Z12.31, V76.12) Status: Resolved as of 16-Nov-2017 Fatigue (R53.83, 780.79) Status: Resolved as of 16-Nov-2017 Gastroenteritis (K52.9, 558.9) Comments: think. iral seeing this now. evualate at home with meds and [facility] i went to house, called in [employer] [employer], told her brat diet slowly, my nurse went out to finish IV and draw labs. Status: Resolved as of 16-Nov-2017 Hypokalemia (E87.6, 276.8) Comments: will recheck related to diarrhea and vomting. Status: Resolved as of 16-Nov-2017 Impaired Fasting Glucose (Renamed from Elevated fasting blood sugar) (R73.01, 790.21) Status: Resolved as of 16-Nov-2017 Muscle pain, cervical (M54.2, 723.1) Status: Resolved as of 16-Nov-2017 Nausea (R11.0, 787.02) Status: Resolved as of 16-Nov-2017 Neck pain (M54.2, 723.1) Comments: doing pt some improve Status: Inactive as of 09-Jun-2017 Need for zoster vaccination (Renamed from Need for shingles vaccine) (Z23, V04.89) Status: Resolved as of 16-Nov-2017 Neoplasm of uncertain behavior of skin (D48.5, 238.2) Comments: 5 mm punch biopsy left forearm done after consent signed and 1percent lido with epi for anesthesia- patient tolerated well discussed risk bleeding infection- may need more removal done if cancer- sent for pathology Status: Resolved as of 16-Nov-2017 Non-smoker (Z78.9, V49.89) Status: Resolved as of 16-Nov-2017 Other specified nutritional anemias (D53.8, 281.8) Comments: chronic stable-continue present regimen Status: Resolved as of 16-Nov-2017 Precordial pain (R07.2, 786.51) Status: Resolved as of 16-Nov-2017 Right upper quadrant pain (R10.11, 789.01) Status: Resolved as of 16-Nov-2017 screening Status: Inactive as of 11-Feb-2015 Shortness of breath at rest (R06.02, 786.05) Status: Resolved as of 16-Nov-2017 Swelling of Limb (Renamed from Limb swelling) (M79.89, 729.81) Status: Resolved as of 23-Apr-2014 Syncopal episodes (R55, 780.2) Status: Resolved as of 16-Nov-2017 Syncope (R55, 780.2) Status: Resolved as of 14-Jun-2014 Unspecified Diagnosis Status: Resolved as of 16-Nov-2017 Unspecified Diagnosis Status: Inactive as of 11-Feb-2015 Unstable angina (I20.0, 411.1) Status: Resolved as of 16-Nov-2017 Procedures Procedure Dates Details bone spur right foot Completed Jaw Surgery Completed Sinus Surgery Completed Date Value Details 25-Jan-2018 Oncology Visit Report Result: Comments: See Note; NOTES: [facility] [address] [place] [address] [place] [address] OFFICE VISIT Date of Service: 01/25/18 1145 MR#: [id number] Acct: [id number] Name: LUPE LOPEZ Rep #: [id number] : 1945 From: Red Spaulding MD Age/Sex: 72/F Location: OMD Status: Signed Subjective - Date of Service Date of Service:: 01/25/18 - Chief Complaint F/u for anemia and Neutro penia - History of Present Illness Ms. Lupe Lopez is a pleasant 72 year old woman with a past medical history for coronary artery disease, arthritis, osteoporosis, KATINA and hypertension who present ed with incidental findings of leukopenia and anemia. Subsequently she underwent BMBX 07/31/2014, which showed variable cellular marrow, multiple minute lymphoid aggregates in clot section (polytopic by IHC). She developed an unprovoked PE 06/13/15. Began Xarelto and continues per cardiology for management of paroxysmal atrial fibrillation. She was found to have iron deficiency and started on Iron and o range juice. She comes in for follow up. - Past Medical/Social History Past Medical History Past Medical History: Anemia,COPD,Heart disease,Hyperlipidemia, Hypertension,Pneumonia Other Past Medical Hi story: Cough Pulmonary Embolism Past Surgical History Other Surgical History: Jaw surgery, sinus surgery, foot surgery, hand surgery Mole removed 12-10-15\ skin leison on forehead and left elbow remov ed pre cancer 12-25-16 Family History Paternal Past Medical History: Unknown Paternal History of Cancer Bone cancer Maternal Past Medical History: Unknown Social History Social History: No changes Sm oking Status Former smoker Review of Systems Constitutional:: Denies: Fever, Sweats, Weight loss, Appetite change, Chills Cardiovascular:: Denies: Chest pain, Palpitations, Dyspnea on exertion, Ortho pnea, PND, Shortness of breath Respiratory: Denies: Cough, Hemoptysis, Shortness of Breath, Wheezing Gastrointestinal:: Denies: Abdominal pain, Nausea, Vomiting, Diarrhea, Constipation, Hematochezia Gen itourinary: Denies: Dysuria, Hematuria, 15, Flank pain Musculoskeletal:: Denies: Back pain, Myalgia, Arthralgia Skin: Denies: Rash, Skin Changes, Wounds Neurological:: Denies: Headache, Dizziness, Visua l changes, Tinnitus, Hearing loss Psychiatric: Denies: Anxiety, Depression, Homicidal Ideations, Suicidal Ideations Vital Signs Height 5 ft 5 in Weight: 68.266 kg Weight in Pounds 150.5 lbs Pulse Ox 98 - Physical Exam General: Alert, Oriented x3, No apparent distress HEENT: Atraumatic, PERRLA, EOMI, Normocephalic Oropharynx:: Dry mucosa Neck:: Supple, Trachea midline. Negative for: JVD, bilateral Cardiac:: Regular rate, Regular rhythm, Normal S1, Normal S2. Negative for: Murmur Lungs: Clear to auscultation, Excusion symmetrical. Negative for: Rhonchi, Wheezes Laboratory Data: Laboratory Tests Assessment and Plan Iron Deficiency-resolved. Anemia-mild and cyclical. Neutropenia- mild and cyclical. Clinically stable, no need for therapy. Plan is to continue Iron supplements with Vitamin C o r [place] juice. Check stool for FOBT. RTC 6 months with CBC, CMP, Iron studies. Medications: Prescriptions This Visit Medication Instructions Recorded Meloxicam [Mobic] 15 mg PO DAILY 06/16/16 Rivaroxa ban [Xarelto] 20 mg PO DAILY 06/29/16 Primary Care Provider: Enrike Jaimes DO Referring Provider: - Problem List (1) Iron deficiency Status: Resolved (2) Anemia Status: Chronic Qualifiers: Anemia typ e: unspecified type Qualified Code(s): D64.9 - Anemia, unspecified (3) Leukopenia Status: Chronic Code Visit Office Visits / Consults: 39629 OV L3 Est 01/25/18 1153 <Electronically signed by Red Spaulding MD> Date Red Spaulding MD Cosigner Signature: Date (if applicable) CC: Enrike Jaimes DO 23-Dec-2017 Cerv Spine 2 or 3 Views Result: Comments: See Note; NOTES: [facility] Imaging Services [address] [place] [id number] Cerv Spine 2 or 3 Views MR#: [id number] Acct: [id number] Name: LUPE LOPEZ Rep #: [id number] : 1945 F 72 From: Ming Odonnell MD PCP: Enrike Jaimes DO Status: REG CLI Study: Cerv Spine 2 or 3 Views Date of Exam: 12/23/17 Exam# [id number] Ordering Dr: Karla Berry EXECUTIVE ADMINISTRATIVE ASSISTANT-C STUDY: X-RAY - C ERVICAL SPINE REASON FOR EXAM: Female, 72 years old. Neck pain and headache TECHNIQUE: 3 view(s) of the cervical spine were obtained. COMPARISON: 2015 FINDINGS: N ormal anterior atlantoaxial articulation. Normal odontoid process. Normal cervical lordosis. There is multi-level endplate spondylosis. There is multi-level degenerative disc disease with multilevel di sc space narrowing. The soft tissue structures are unremarkable. There is no demonstrated fracture of the cervical spine. RAD/Cerv Spine 2 or 3 Views IMPRESSION: Multilevel degenerative changes, no demonstrated fracture Electronically Signed: Deshawn Odonnell MD at 15:23 EDT , Service support , Fax CC: Enrike Jaimes DO; Karla Berry Sugar Cane Grower: Signed 23-Dec-2017 Thoracic Spine 2 Views Result: Comments: See Note; NOTES: [facility] Imaging Services [address] [place] [id number] Thoracic Spine 2 Views MR#: [id number] Acct: [id number] Name: LUPE LOPEZ Rep #: [id number] : 1945 F 72 From: Ming Odonnell MD PCP: Enrike Jaimes DO Status: REG CLI Study: Thoracic Spine 2 Views Date of Exam: 12/23/17 Exam# [id number] Ordering Dr: Karla Berry STUDY: X-RAY - THO RACIC SPINE REASON FOR EXAM: Female, 72 years old. Upper back pain TECHNIQUE: 2 view(s) of the thoracic spine were obtained. COMPARISON: 06/09/2017 FINDINGS: There is an increase in the normal thoracic kyphosis. There is no substantial scoliosis. There is multilevel endplate spondylosis of the thoracic vertebrae. There is multilevel disc space narrowing of the th oracic spine. The soft tissue structures are unremarkable. RAD/Thoracic Spine 2 Views IMPRESSION: Multilevel degenerative changes, no demonstrat ed fracture Electronically Signed: Deshawn Odonnell MD at 15:23 EDT , Service support , CC: Enrike Jaimes DO; Karla LOPEZ Prebish Sugar Cane Grower: Signed 11-Dec-2017 Carotid Duplex Ultrasound Result: Comments: See Note; NOTES: [facility] Cardiovascular Services [address] [place] [address] Carotid Duplex Ultrasound 12/10/17 1013 MR#: [id number] Acct: [id number] Name: LUPE BOOGIE Rep #: [id number] : 1945 72 From: Brice Murphy MD Attending Dr: Enrike Jaimes DO Status: REG CLI Ordering Dr: Enrike Jaimes DO Date: 12/10/17 Location: [facility] Sex: F C Admitted: Reason For Study: Stenosis Rt. Velocities/BP Lt. Velocities/BP Prox CCA 84.4/15.8 cm/sec. Prox CCA 89.6/9.43 cm/sec. Mid CCA 80.9/13.5 cm/sec. Mid CCA 101/19.6 cm/sec. Dist CCA 85/19.3 cm/sec. Dist CCA 83.3/1 7.3 cm/sec. Prox ICA 84.4/18.2 cm/sec. Prox ICA 105/18.1 cm/sec. Mid ICA 93.8/24.6 cm/sec. Mid ICA 86.6/17 cm/sec. Dist ICA 107/32.2 cm/sec. Dist ICA 87.9/21.7 cm/sec. Rt. ICA/CCA = 1.27. Lt. ICA/CCA = 1.17. Prox ECA 123 cm/sec. Prox ECA 87.9 cm/sec. Rt. Vert. 54.2/10.2 cm/sec. Lt. Vert. 64/15.3 cm/sec. Right Extracranial There is intimal thickening but no significant atherosclerotic plaque noted in the right common carotid artery. There is heterogeneous, irregular atherosclerotic plaque noted in the right internal carotid artery. There is heterogeneous, irregular atherosclerotic plaque noted in th e right external carotid artery. Antegrade flow is noted in the right vertebral artery. Left Extracranial There is intimal thickening but no significant atherosclerotic plaque noted in the left common carotid artery. There is heterogeneous, smooth atherosclerotic plaque noted in the left internal carotid artery. There is heterogeneous, smooth atherosclerotic plaque noted in the left external carotid artery. Antegrade flow is noted in the left vertebral artery. Procedure Carotid Duplex 24571. Exam performed in department. Interpretation Summary Mild (<50%) stenosis right extracranial inter nal carotid. Mild (<50%) stenosis left extracranial internal carotid. Flow within the vertebral arteries is antegrade bilaterally. Ordering Physician: Enrike Jaimes Referring Physician: Enrike Jaimes Performed By: Riaz Ashley RVT and Student 12/11/17 1406 Date Brice Murphy MD CC: Enrike Jaimes DO Date Dictated: 12/10/17 1013 Date Transcribed: 12/11/17 1406 Sugar Cane Grower: Signed 10-Dec-2017 SCREENING MAMM (CAD), BILAT Result: Comments: See Note; NOTES: [facility] Imaging Services [address] [place] [address] SCREENING MAMM (CAD), BILAT MR#: [id number] Acct: [id number] Name: LUPE LOPEZ Rep #: [id number] : 1945 F 72 From: Johnny Gilman MD PCP: Enrike Jaimes DO Status: REG CLI Study: SCREENING MAMM (CAD), BILAT Date of Exam: 12/10/17 Exam# [id number] Ordering Dr: Enrike Jaimes DO MAMM OGRAPHY - BILATERAL SCREENING REASON FOR EXAM: Female, 72 years old. Routine annual screening examination. PERTINENT HISTORY: Sister with breast cancer. TECHNIQUE: Digital bilateral breast pee (3D m ammographic acquisition) in the CC and MLO projections. 2-D mediolateral oblique (MLO) and craniocaudad (CC) views of both breasts were obtained. CAD: Full Field Digital Mammography with Computer Added Detection was performed. COMPARISON: Comparison is made with prior examination dated November 19, 2016 and November 19, 2015. FINDINGS: Breast Composition: The breasts are heterogeneously dense, which may obscure small masses. There are no dominant masses or suspicious calcifications. Stable bilateral secretory calcification. No other significant abnormalities are i dentified. There has been no significant change since the prior study. BI/SCREENING MAMM (CAD), BILAT IMPRESSION: Stable bilateral screening mamm ogram. Yearly follow-up mammogram recommended. (A) ASSESSMENT CATEGORY: BIRADS Category 2: Benign. A letter regarding these results will be sent to the patient by [facility] within 30 days. Approximately 10% of breast cancers are not detected by mammography. A normal mammogram should not delay biopsy of a clinically suspicious abnormality. [id number] Electronical ly Signed: Johnny Gilman MD at 13:14 EDT Tel [phone], Service support , CC: Enrike Jaimes DO Sugar Cane Grower: Signed 30-Nov-2017 Pulmonary Visit Report Result: Comments: See Note; NOTES: [facility] [address] [place] [address] OFFICE VISIT Date of Service: 11/30/17 MR#: [id number] Acct: [id number] Name: LUPE BOOGIE Rep #: [id number] : 1945 Provider: Merlin Pop MD Age/Sex: 72/F Location: [facility] Status: Signed Assessment AND Plan Problems 1. Moderate persistent asthma without complication J45. 40 2. Lung nodule R91.1 3. Paroxysmal atrial fibrillation I48.0 Plan Appears to be doing well from a respiratory standpoint. Patient does follow with oncology for lung nodule. Will continue on Advair t herapy. Will repeat pulmonary function test prior to next visit to ensure stability. Patient does have a history of paroxysmal A. fib, but appears to be in rhythm on physical exam. Patient is on appropr iate anticoagulation without bleeding complications. Patient has yet to receive a flu shot, so one will be given. Continue current therapy. Orders Orders: Medications Discontinued: azelastine admini ster into [id number] mcg (0.14 mL) Intranasal BIDJ30.2 Merlin Pop MD nostril Discontinued Reason: Pt no longer taking HPI 6 M FU: Chief Complaint: Chronic cough Details: Patient is a 72-year-old [facility] female, currently under care of Dr. Jaimes, who presents for evaluation secondary to chronic cough. Since last visit, patient denies any ER visits, hospitalizations or prednisone burst. Patient fe els that overall she is subjectively unchanged compared to previous. Patient states she has been compliant with her Advair therapy. Patient denies any complications such as thrush, hoarseness or sore t hroat. Patient estimates that she uses her albuterol approximately once per month. Patient continues to have significant issues with sinus congestion and postnasal drip associated with seasonal allergi es. Patient states that she has been receiving allergy shots, but has not noted any significant change in overall condition. Patient does have 2 nasal sprays on her Sarah, but states that she only uses 1 of them. Patient believes this is Flonase, but is not sure. Patient denies any complications such as epistaxis. Patient has remained on blood thinners and rate control for her paroxysmal A. fib. Patie nt denies any recent palpitations, lower extremity edema or change in weight. Intake Vital Signs09/11/18 Height 5 ft 5 in 11/30/17 Weight: 66.224 kg Intake Visit Reasons: 6 M FU Multilith Operator Required: No Accompanied by: Family / Other Allergies No Known Allergies Allergy (Verified 11/30/17 06:54) Medications Amlodipine [Norvasc] 10 mg PO DAILY 06/20/15 [History Confirmed 11/30/17] Aspirin [Aspi rin, Baby] 81 mg PO DAILY@0800 06/20/15 [History Confirmed 11/30/17] Atorvastatin Calcium [Lipitor] 60 mg PO QHS 06/20/15 [History Confirmed 11/30/17] Calcium Carbonate/Vitamin D3 [Calcium 600-Vit D3 40 0 Caplet] 1 ea PO DAILY 06/20/15 [History Confirmed 11/30/17] Carvedilol [Coreg (Beta Jonn)] 12.5 mg PO BID 06/20/15 [History Confirmed 11/30/17] Cholecalciferol (VIT D3) [Vitamin D3] 1,000 unit PO D AILY 06/20/15 [History Confirmed 11/30/17] Dexlansoprazole [Dexilant] 60 mg PO DAILY 06/20/15 [History Confirmed 11/30/17] Losartan/Hydrochlorothiazide [Hyzaar 100-25 Tablet] 1 tab PO DAILY 06/20/15 [Hi story Confirmed 11/30/17] Montelukast [Singulair] 10 mg PO DAILY 06/20/15 [History Confirmed 11/30/17] Opcon-A 1 drp OP PRN PRN 06/20/15 [History Confirmed 11/30/17] Ranitidine [Zantac] 300 mg PO DAILY 06/20/15 [History Confirmed 11/30/17] Vitamin E 1,000 unit PO DAILY 06/20/15 [History Confirmed 11/30/17] Meloxicam [Mobic] 15 mg PO DAILY 06/16/16 [History Confirmed 11/30/17] Rivaroxaban [Xarelto] 20 mg PO DAILY 06/29/16 [History Confirmed 11/30/17] fluticasone 250 mcg-salmeterol 50 mcg/dose blistr powdr for inhalation 1 inh INHALATION Q12H 06/16/17 [History Confirmed 11/30/17] fluticasone 50 mcg/ac tuation nasal spray,suspension 1 spray INTRANASAL BID #16 g 06/21/17 [Rx Confirmed 11/30/17] isosorbide dinitrate 30 mg tablet 30 mg PO QDAY tab 07/01/17 [History Confirmed 11/30/17] ascorbic acid (michaela min C) 500 mg capsule 500 mg PO QDAY cap 07/05/17 [History Confirmed 11/30/17] duloxetine 30 mg capsule,delayed release 30 mg PO QDAY 07/05/17 [History Confirmed 11/30/17] ferrous sulfate 325 mg (65 mg iron) tablet 325 mg PO QDAY tab 07/05/17 [History Confirmed 11/30/17] levothyroxine 25 mcg tablet 25 mcg PO QDAY #30 tab 07/08/17 [Rx Confirmed 11/30/17] amiodarone 200 mg tablet 200 mg PO QDAY #90 tab 07/19/17 [Rx Confirmed 11/30/17] PFSH Medical History Carotid stenosis (Chronic) GERD (gastroesophageal reflux disease) (Chronic) Lung nodule (Chronic) Atherosclerotic heart disease of [place] coronary artery without angina pectoris (Chronic) Moderate persistent asthma (Chronic) Chest pain (Acute) COPD (chronic obstructive pulmonary disease) (Chronic) Paroxysmal atrial fibrillation (Chronic) Hyperlipidemia (Chronic) Iron deficiency (Resolved) Hypertension (Chronic) Fibromyalgia (Chronic) History of pulmonary embolism (Chronic) Surgical History (Rev iewed 11/30/17 @ 06:54 by Lakesha Henriquez) History of foot surgery (Resolved) History of hand surgery (Resolved) History of mandibular surgery (Resolved) History of sinus surgery (Resolved) mole remova l (Resolved) Family History Sister Breast cancer Brother Heart disease Sister Diabetes Social History Smoking Status: Former smoker second hand exposu re: No alcohol intake: never substance use type: does not use Review of Systems Const CONSTITUTIONAL: Positive seasonal allergies; negative anorexia, body ache, chills, daytime sleepiness, fever( s), night sweats, oral thrush, stops breathing during sleep, weight loss, sleeping in chair, fatigue, weight loss, weight gain, frequent colds, other, headache(s) or orthopnea EETM Ear Nose Throat Mouth : Positive hearing normal and nasal discharge; negative hard of hearing, hoarseness, dry mouth in morning, change in vision, itchy eyes, eye pain, swallowing Difficulty, ear pain, nose bleed, headache(s ), mouth pain, nasal congestion, post nasal drip, sinus pain, sinus pressure, sore throat or other Cardio Cardiovascular: Negative chest pain, chest pain at rest, chest pain with activity, irregular hea rt rhythm, edema, shortness of breath when lying down, palpitations, murmur or other Resp Respiratory: Positive as per HPI and cough cough: Positive productive color: Positive thick and clear; negative shortness of breath, pain with cough, wheezing, chest congestion, chest tightness, pain on inspiration, inhalers, increase use of rescue inhalers, snoring, apnea or other Gastro Gastrointestional: Negat anjel bloody stools, change in appetite, difficulty swallowing, reflux, hematemesis, melena stool, loose stool, constipation or other Genitourinary: Negative blood in urine, nocturia, pain with urinati on or other Musc Musculoskeletal: Negative body pain, back pain, neck pain or other Skin/Breast Skin/Breast: Negative dry skin, itching, rash, unusual bruising, breast lump or other Neuro Neurological: Negative restless legs, confusion, weakness or other Psych Psychocological: Negative abnormal sleep pattern, anxiety, thoughts of hurting self/others, hopelessness or other Lymph Lymphatic: Negative eas y bleeding, easy bruising, swollen lymph nodes or other Exam Const Constitutional: Positive conversant, cooperative, in no acute respiratory distress, healthy appearing, well developed, well nourished and good hygiene; negative smells of smoke, appears older than stated age or ill appearing Head Head: Positive normocephalic and atraumatic; negative cyanosis of lips/distal nose, frontal sinus tendern ess or maxillary sinus tenderness Eyes Eye: Positive clear conjunctiva; negative nystagmus, scleral abnormality or cataract present Ears Ear: Positive hearing normal and external ears normal; negative h gonzález of hearing Nose Nose: Positive external nose normal, septum normal and clear nasal discharge; negative epistaxis or nasal polyp Mouth Mouth: Positive oral mucosae normal, no lesions and posterior or opharynx is adequate; negative post nasal drip, malodorous breath or oral thrush present Mallampati Score: II: Mallampati Score Neck Neck: Positive normal visual inspection, full ROM and trachea midline ; negative lymphadenopathy or JVD Chest Wall Chest: Positive normal inspection of the chest and symmetric chest movement; negative crepitus or tenderness Resp lung sounds: Positive clear to auscultation , good air exchange, normal expiratory time and normal respiratory effort; negative wheezes, rhonchi, rales, use of accessory muscles, wheeze present on forced exhalation or dullness to percussion Cardi o Cardiac: Positive regular rate, regular rhythm, S1 normal and S2 normal; negative murmur, rub or gallop GI GI: Positive normal to inspection and normal bowel sounds; negative distended, ascites or epi gastric tenderness Genitourinary: Positive deferred Musc Musculoskeletal: Positive steady gait; negative using an assistive device for ambulation, kyphosis or scoliosis Skin Pulmonary Skin Exam: Posi tive intact; negative rash, lesion, ulcers, erythema or dermal atrophy Pulses Pulse: Yes radial pulses present Extremities Extremities: Yes capillary refill normal, No clubbing, No cyanosis, No edema, N o stasis dermatitis Neuro Neurologic: Yes conversant, Yes no focal neuro deficits, Yes normal concentration, Yes understands questions, Yes cooperative, Yes normal cognition, Yes normal coordination Lym ph Lymphatic: No lymphadenopathy Psych Appearance: Positive grossly normal Mental Status: Positive mental status grossly normal Mood: Positive congruent mood Affect: Positive normal affect Immunizatio ns flu vacc (65yr up)-MF59C(PF) 45 mcg(15 mcgx3)/0.5 mL IM syringe Performing Provider: Merlin Pop MD Administered by: Lakesha Henriquez on 11/30/17 10:27 Dose Route Admin Location Lot Number Ex piration Date [facility] Internal Security Manager 0.5 mL IM Left Deltoid [id number] 07/19/17 48061-549-30 SEQIRUS VIS Given Date VIS Publication Date 11/30/17 10/26/14 Eligibility Eligibility Date Coding Level of Care Code O ff vis,est,level 3 Diagnoses Moderate persistent asthma without complication J45.40 Asthma complication type: uncomplicated Lung nodule R91.1 Paroxysmal atrial fibrillation I48.0 11/30/17 1054 & #60;Electronically signed by Merlin Pop MD> Date Merlin Mujica Signature: Date (if applicable) CC: Enrike Jaimes DO 09-Sep-2017 Downtime Report Result: Comments: See Note; NOTES: [facility] Medical Records Department [address] [place] [address] Downtime Report MR#: [id number] Acct: [id number] Name: LUPE LOPEZ Rep #: [id number] : 1945 72 From: Turner Diop PCP: Enrike Jaimes DO Status: REG CLI This patient was seen during an EMR downtime August 23, 2017 - August 30, 2017. This patient may have a combination of rosa maria r and electronic documentation or all paper documentation. All documentation is viewable within the e-chart portion of [employer] for each patient visit. 27-Aug-2017 Spine Lumbar (Routine) Result: Comments: See Note; NOTES: [facility] Imaging Services [address] [place] [address] Spine Lumbar (Routine) MR#: [id number] Acct: [id number] Name: CHASE LOPEZCatalina Rep #: [id number] : 1945 F 72 From: Carlos Pizano PCP: Enrike Jaimes DO Status: REG CLI Study: Spine Lumbar (Routine) Date of Exam: 08/25/17 Exam# [id number] Ordering Dr: Enrike Jaimes DO STUDY: MRI LUMBAR SPINE WITHOUT CONTRAST REASON FOR EXAM: Female, 72 years old. chronic low back pain, nki, no radiculopathy. TECHNIQUE: Standardized fat and water weighted pulse sequences were obtained in the sagittal and axial planes. COMPARISON: None FINDINGS: Normal lumbar lordosis. There is no substantial scoliosis. Normal conus medullaris that terminates at the L1 L1-2: There is mild disc space narrowing and anterior spondylosis. There is no significant central canal or foraminal stenosis. L2-3: There is moderate disc space narrowing and endplate spondylosis. There is a mil d disc bulge asymmetric to the left with mild left foraminal stenosis. There is facet hypertrophy with mild central canal stenosis. There is no significant right foraminal stenosis. L3-4: There is mode rate disc space narrowing and endplate spondylosis. There is a mild disc bulge and facet hypertrophy with mild central canal stenosis. There is mild bilateral foraminal stenosis. L4-5: There is moderat e disc space narrowing and endplate spondylosis. There is moderate disc bulge asymmetric to the right with moderate right foraminal stenosis. There is facet hypertrophy with mild central canal and mild left foraminal stenosis. L5-S1: There is moderate disc space narrowing and endplate spondylosis. There is a mild disc bulge and facet arthropathy without significant central stenosis. There is moderate right and mild left foraminal stenosis. Normal visualized sacral ala. Normal visualized paraspinous soft tissue structures. MRI/Spine Lumbar ( Routine) IMPRESSION: L4/L5: Moderate right foraminal stenosis. L5/S1: Moderate right foraminal stenosis Electronically Signed: Carlos Pizano MD at 8:39 EDT Tel , Service suppo rt , CC: Ernike Jaimes DO Sugar Cane Grower: Signed 11-Aug-2017 Re-Evaluation - PT (1) Result: Comments: See Note; NOTES: [facility] [address] [place] [address]. [address] [place] [address] Fax REEVALUATION / MEDICARE RECERTI FICATION PHYSICAL THERAPY MR#: [id number] Acct: [id number] Name: LUPE LOPEZ Rep #: [id number] : 1945 72 From: Shanon Ferrara MPT Referring DrBrooke: Enrike Jaimes DO Status: REG RCR Insurance: [facility] MEDICARE PPO SELF PAY INSURANCE Enrike Fast, DO, It has been my pleasure to treat LUPE LOPEZ over the last 7 visits for LOW BACK PAIN. Please see the progress note below for an update on [facility] physical therapy plan of care! Subjective: Pt still has back pain. She reports that this is helping. She feels she is one big pain from head to knees with ROME's. Pt is doing her exercises at home. Pt reports that she feels she can do her ADl's with min difficulty but stairs and laundry to the basement are hard. Objective/Function: Pt subjectively reports that the longer the day goes on the worse her posture gets. Stairs: up and down stairs recip with 1 hand rail. sit to stand: able to stand without UE support but a little unsteady. LUMBAR ROM: flexion 75% normal ROM, Ext 50% normal ROM, SB B 75% n ormal ROM ,. FLEXABLITY: hams min tight B ( alittle pain behind the knees with SLR testing). Plan Plan: Try to get 3 additiional visits from insurance to transfer to [facility] program for c ore stability, Le strength, stretching..... Goals Goal 1:: Independant with HEP. Goal Time Frame: 4-6 Weeks Goal Progress: Goal Met Goal 2:: Patient to be Independant with posture for ADL'S Goal Time F rame: 4-6 Weeks Goal Progress: Progressing Goal 3:: Patient to decrease lumbar pain by 50% or greater to improve function Goal Time Frame: 4-6 Weeks Goal Progress: Progressing Goal 4:: Patient improve l umbar ROM for function of recovery Goal Time Frame: 4-6 Weeks Goal 5:: Patient be able to perform ADL'S and housework tasks with min limiations Goal Time Frame: 4-6 Weeks Goal Progress: Goal Met Antici pated Interventions Patient/Client Instruction: Educate patient on: Condition, Plan of Care For the Purpose of:: To decrease pain, To increase ROM, To improve muscle performance and motor function, To i mprove ability to perform ADL's, To improve ability of physical actions for home/community/work/leisure, To improve health of tissue, To decrease soft tissue restriction, To increase flexibility/ROM, To reduce risk of recurrence, To improve ability to perform tasks related to life management Therapeutic Exercise to Include: Strength training, Body mechanics, Postural training, Dynamic Lumbar Stabiliza tion For the Purpose of:: To decrease pain, To increase ROM, To improve muscle performance and motor function, To increase tolerance to activity/condition/position, To improve performance and independen ce with ADL's, To improve ability of physical actions for home/community/work/leisure, To improve health of tissue, To decrease soft tissue restriction, To improve ability to perform tasks related to li fe management Please do not hesitate to contact me at [phone] by phone or if you have questions or concerns regarding this new plan of care! Sincerely, Shanon Ferrara &#60 ;Electronically signed by Shanon Ferrara MPT> 08/11/17 1913 CC: Enrike Jaimes DO Signed For Medicare only, by signing this I certify the plan of care. Physicians Signature Date 27-Jul-2017 Oncology Visit Report Result: Comments: See Note; NOTES: [facility] Oncology [address] [place] [address] OFFICE VISIT Date of Service: 07/27/17 1128 MR#: [id number] Acct: [id number] Name: LUPE LOPEZ Rep #: [id number] : 1945 From: Red Spaulding MD Age/Sex: 72/F Location: OMD Status: Signed Subjective - Date of Service Date of Service:: 07/27/17 - Chief Complaint F/u for anemia and Neutro penia - History of Present Illness Ms. Lupe Lopez is a pleasant 72 year old woman with a past medical history for coronary artery disease, arthritis, osteoporosis, KATINA and hypertension who present ed with incidental findings of leukopenia and anemia. Subsequently she underwent BMBX 07/31/2014, which showed variable cellular marrow, multiple minute lymphoid aggregates in clot section (polytopic by IHC). She developed an unprovoked PE 06/13/15. Began Xarelto and continues per cardiology for management of paroxysmal atrial fibrillation. She was found to have iron deficiency and started on Iron and o range juice. She comes in for follow up. - Past Medical/Social History Past Medical History Past Medical History: Anemia,COPD,Heart disease,Hyperlipidemia, Hypertension,Pneumonia Other Past Medical Hi story: Cough Pulmonary Embolism Past Surgical History Other Surgical History: Jaw surgery, sinus surgery, foot surgery, hand surgery Mole removed 12-10-15\ skin leison on forehead and left elbow remov ed pre cancer 12-25-16 Family History Paternal Past Medical History: Unknown Paternal History of Cancer Bone cancer Maternal Past Medical History: Unknown Social History Social History: No changes Sm oking Status Former smoker Review of Systems Constitutional:: Denies: Fever, Sweats, Weight loss, Appetite change, Chills Cardiovascular:: Denies: Chest pain, Palpitations, Dyspnea on exertion, Ortho pnea, PND, Shortness of breath Respiratory: Denies: Cough, Hemoptysis, Shortness of Breath, Wheezing Gastrointestinal:: Denies: Abdominal pain, Nausea, Vomiting, Diarrhea, Constipation, Hematochezia Gen itourinary: Denies: Dysuria, Hematuria, 15, Flank pain Musculoskeletal:: Denies: Back pain, Myalgia, Arthralgia Skin: Denies: Rash, Skin Changes, Wounds Neurological:: Denies: Headache, Dizziness, Visua l changes, Tinnitus, Hearing loss Psychiatric: Denies: Anxiety, Depression, Homicidal Ideations, Suicidal Ideations Vital Signs Height 5 ft 5 in Weight: 67.132 kg Weight in Pounds 148.0 lbs Pulse Ox 98 - Physical Exam General: Alert, Oriented x3, No apparent distress Laboratory Data: Laboratory Tests WBC Hgb Plt Count Absolute Neuts (auto) Iron 55 TIBC Iron Saturation Ferritin 29 Albumin 4.0 Assessment and Plan Iron Deficiency-resolved. Anemia resolved. Neutropenia resolved. Plan is to continue Iron supplements with Vitamin C or [place] juice. RTC 6 months with CBC, CMP, Iron studies. Wy dications: Prescriptions This Visit Medication Instructions Recorded Meloxicam [Mobic] 15 mg PO DAILY 06/16/16 Rivaroxaban [Xarelto] 20 mg PO DAILY 06/29/16 Primary Care Provider: Enrike Jaimes DO Refe rring Provider: - Problem List (1) Iron deficiency Status: Resolved Code Visit Office Visits / Consults: 08202 OV L3 Est 07/27/17 1135 <Electronically signed by Red Spaulding MD> Date Red Spaulding MD Cosigner Signature: Date (if applicable) CC: 15-Jul-2017 Stress Report Result: Comments: See Note; NOTES: [facility] Cardiovascular Services [address] [place] [address] MR#: [id number] Acct: [id number] Name: LUPE LOPEZ Rep #: [id number] : [birth year] 72 From: Mike Cota MD Primary Care: Enrike Jaimes DO Status: REG CLI Ordering Dr: Sex: F C Stress Test Report Date: 07/15/2017 Procedure: Pharmacologic stress nuclear imaging study Indicat ions: Chest pain Consent: Per the patient Procedure: The patient underwent pharmacologic (Regadenoson) evaluation with a peak heart rate of 90 beats per minute (60 predicted maximal heart rate) and a peak blood pressure of 158/52 mmHg. The baseline ECG demonstrated sinus rhythm; poor R-wave progression; nonspecific ST and T-wave abnormality. The peak pharmacologic ECG demonstrated no obvious ECG c hanges. There were no cardiac dysrhythmias pretest, during pharmacologic infusion, or recovery. There was no complaint of chest discomfort during pharmacologic infusion or recovery. The examination w as discontinued secondary to completion of protocol. Impression: 1. Pharmacologic (Regadenoson) evaluation 2. Peak pharmacologic ECG with no obvious ECG changes. 3. There were no cardiac dysrhythmias pretest, during pharmacologic infusion, or recovery 4. Nuclear images pending Myocardial perfusion imaging study: Technique: The patient was injected with 11.7 millicuries of technetium 99m Cardiolit e and subsequently rest SPECT Cardiolite nuclear imaging was obtained in the horizontal long, vertical long, and short axis views. The patient underwent pharmacologic (Regadenoson) evaluation with a pea k heart rate of 90 beats per minute (60 % percent predicted maximal heart rate) and a peak blood pressure of 158/52 mmHg. The patient was injected with 3.5 millicuries of technetium 99m Cardiolite and s ubsequently stress SPECT Cardiolite nuclear imaging was obtained in the horizontal long, vertical long, and short axis views. A gated Cardiolite study at peak stress was obtained. Interpretation: Rest and stress SPECT Cardiolite nuclear imaging status post realignment, normalization, and attenuation correction demonstrate of uniform tracer uptake and myocardial perfusion appearing within normal limi ts. There is end systolic thickening and brightening. The gated Cardiolite study demonstrates myocardial thickening and inward wall motion. The reported LVEF is 70 %. Impression: 1. Rest and stress SP ECT Cardiolite nuclear imaging demonstrate relative uniform tracer uptake and myocardial perfusion appearing within normal limits. 2. The gated Cardiolite study reports an LVEF of 70 %. This note was g enerated with [employer] software. It may contain incorrect words, spelling, and punctuation that were not noted in checking the note before signing. 07/15/17 1311 <Electronically s igned by Mike Cota MD> Date Mike Cota MD CC: Enrike Jaimes DO; Mike Cota MD Date Dictated: 07/15/17 130 Date Transcribed: 07/15/17 130 Sugar Cane Grower: PM Signed 08-Jul-2017 Inital Evaluation (1) - PT Result: Comments: See Note; NOTES: [facility] Physical Therapy [facility] [place], [place] [id number] Fax REHABILITATION SERVICES INITIAL EVALUATION MR#: [id number] Acct: [id number] Name: LUPE LOPEZ Rep #: [id number] : 1945 72 From: Domenic Ayala PT, Cert. MDT, OCS Referring DrBrooke: Enrike Jaimes DO Status: REG RCR Insurance: [employer] MEDIC[employer] PPO SELF PAY INSURANCE Patient's Visit Information LUPE LOPEZ is a 72 year old F referred to Physical Therapy by Enrike Jaimes DO with a diagnosis of LOW BACK PAIN. Date of Evaluat ion: 07/07/17 Physical Therapist: Domenic Ayala PT, - Visit Plan Frequency: 2x /Week Duration: 5WEEKS Plan: POSTURAL EX'S,DLS ,MODALTIES - Subjective Subjective: This 72 y/o female presents with ph ysical therapy low back pain for many years. Patient has symmtrical lumbar pain desribed ache. Patient seen DR recommended PT ,did x-rays. Symptoms worse with standing 5min ,walking,bending lifting. Sym ptoms resting in bed,ice. Patient has TENS unit. Denies parathesia/tingling. Bowel/bladder good. Coughing/sneeezing increase symptoms. Sleeping good at night.Patient has h/o prior treatment PT cervical/ lumbar. VOCATION: retired. SOCIAL: - Pain Bilateral Back Pain Intensity (Out of 10): 5 Pain Intensity Range: 10 - Objective POSTURE: mild foward posture,reduce lordosis ,mild thoracic kyphosis . GAIT: reciprocal pattern ,mild foward posture. NEURO:denies parathesia/tingling ,reflexes L3-4,L4-5,L5-S1. PALAPTION: unremarkable. SYMMTRIES : align. MMT: quads/hams 4/5,4-/5,ankle 5/5. LUMBAR ROM: f lexion min /mod loss ,mod extension,side glides min loss. FLEXABLITY: hams min tight - Special Tests L/S Slump test left side: Negative L/S Slump test right side: Negative L/S Left Straight Leg Raise: Negative L/S Right Straight Leg Raise: Negative Lumbar Standing: Flexion - Mechanical Response: No effect Lumbar Standing: Flexion - Symptoms During Testing: Increases Lumbar Standing: Flexion - Symptom s After Testing: No worse Lumbar Standing: Extension - Mechanical Response: No effect Lumbar Standing: Extension - Symptoms During Testing: Increases Lumbar Standing: Extension - Symptoms After Testing: Worse - Goals Goal 1:: Independant with HEP. Goal Time Frame: 4-6 Weeks Goal 2:: Patient to be Independant with posture for ADL'S Goal Time Frame: 4-6 Weeks Goal 3:: Patient to decrease lumbar pain by 50% or greater to improve function Goal Time Frame: 4-6 Weeks Goal 4:: Patient improve lumbar ROM for function of recovery Goal Time Frame: 4-6 Weeks Goal 5:: Patient be able to perform ADL'S and house work tasks with min limiations Goal Time Frame: 4-6 Weeks - Rehabilitation Potential Physical Therapy Diagnosis: Patient has symmtrical lumbar pain which impairs ROM,strength thus causes impairments wi th gait ,standing and ADL'S Rehabilitation Potential: Good - Anticipated Interventions Patient/Client Instruction: Educate patient on: Condition, Plan of Care For the Purpose of:: To decrease pain, To increase ROM, To improve muscle performance and motor function, To improve ability to perform ADL's, To improve ability of physical actions for home/community/work/leisure, To improve health of tissue, To decrease soft tissue restriction, To increase flexibility/ROM, To reduce risk of recurrence, To improve ability to perform tasks related to life management Therapeutic Exercise to Include: Strength t raining, Body mechanics, Postural training, Dynamic Lumbar Stabilization For the Purpose of:: To decrease pain, To increase ROM, To improve muscle performance and motor function, To increase tolerance t o activity/condition/position, To improve performance and independence with ADL's, To improve ability of physical actions for home/community/work/leisure, To improve health of tissue, To decrease soft t issue restriction, To improve ability to perform tasks related to life management Thank you for the opportunity to evaluate your patient. For Medicare and Medicare HMO plans, please review the plan of care and approve it. It will need to be FAXED BACK to us at [phone] for Medicare purposes. Please let me know if there are questions or concerns regarding this plan of care. Physician Luther william: Date: <Electronically signed by Domenic Ayala PT, Cert. FABRIZIO, MELO> 07/08/17 1332 CC: Enrike Jaimes DO D HEMA Signed For Medicare only, by signing this I certify the plan of care. Physicians Signature Date 05-Jul-2017 Cardiology Visit Report Result: Comments: See Note; NOTES: [facility] [address] [place] [address] OFFICE VISIT Date of Service: 07/05/17 MR#: [id number] Acct: [id number] Name: LUPE LOPEZ Rep #: [id number] : 1945 Provider: Mike Cota MD Age/Sex: 72/F Location: [facility] Status: Signed HPI HPI Details: LUPE LOPEZ, is a 72 F who presents to the office today for for outpatien t cardiovascular follow-up. Since her last visit of 10/02/2016 she states overall she is doing reasonably well. She denies any ongoing palpitations or rapid heart rates. She continues to note episodes of chest discomfort which she states are mainly mid sternal to right sided. They occur sometimes with increased breathing. They do not necessarily associated with nausea, emesis, or diaphoresis. She has d enied orthopnea, PND, and peripheral pitting edema. There has been no near syncope or syncope. Her last lipid profile appears to been in November 2016 at which time it appeared to be under reasonably good control. Her previous transthoracic echocardiogram from 06/12/2015 is as noted below. Interpretation Summary Left ventricular systolic function is normal. The estimated ejection fraction is 65 %. T he left atrium is mildly enlarged. There is mild mitral annular calcification. Mild (1+) mitral valve insufficiency. Mild tricuspid valve insufficiency. Mild diffuse aortic valve thickening. Trivial aor tic valve insufficiency. Right ventricular systolic pressure estimated to be 35 mmHg. Transmitral diastolic flow velocities suggest diastolic dysfunction (pseudonormal pattern). Her last stress test fr om 06/28/2015 is as noted below. CONCLUSION: 1. Normal pharmacologic myocardial perfusion stress test with no evidence of ischemia. 2. Preserved ejection fraction. Her previous diagnostic cardiac cathete rization from [facility] from 05/03/2009 is as noted below. ASSESSMENT: 1. Mild to moderate coronary atherosclerosis, non-flow limiting by angiography. 2. Presered left [id number] systolic a nd diastolic function. CLINICAL CORRELATION: This Is a 64-year-old wtio presents with angina ha1ng atypical features, she has nonflowIlmTting disease hr which aggressiw medical therapy is warranted Incl uding aspirin, beta jonn, DAPHNEY Inhibitor, and statin therapy. She did have ectopic atrial lachycardia for which beta jonn gien in the orthodontic laboratory technician, she will be started on beta jonn upon discharge ho ny, She will ultimately follow up with her primary physician and cardiclogist as an outpatient. EMMA GARCIA, DO, FACC, FSCAI, FACQI He also has continued laboratory follow-up based upon being on amiod arone therapy. It appears that she has had follow-up hepatic studies earlier this year. Her TSH was from November of last year. She has had PFTs less than a year ago. She is also had a chest CT scan pe rformed less than a year ago. Intake Vital Signs07/05/17 Height 5 ft 5 in 07/05/17 Weight: 149 lb 07/05/17 Body Mass Index (BMI) 24.7 07/05/17 Blood Pressure 152/64 Intake Visit Reasons: 9 M FU Amador hernandez No Known Allergies Allergy (Verified 07/05/17 10:21) Medications Amlodipine [Norvasc] 10 mg PO DAILY 06/20/15 [History Confirmed 07/05/17] Aspirin [Aspirin, Baby] 81 mg PO DAILY@0800 [History Confirmed 07/05/17] Atorvastatin Calcium [Lipitor] 60 mg PO QHS 06/20/15 [History Confirmed 07/05/17] Calcium Carbonate/Vitamin D3 [Calcium 600-Vit D3 400 Caplet] 1 ea PO DAILY 06/20/15 [His tory Confirmed 07/05/17] Carvedilol [Coreg (Beta Jonn)] 12.5 mg PO BID 06/20/15 [History Confirmed 07/05/17] Cholecalciferol (VIT D3) [Vitamin D3] 1,000 unit PO DAILY 06/20/15 [History Confirmed 06/20 09/06] Dexlansoprazole [Dexilant] 60 mg PO DAILY 06/20/15 [History Confirmed 07/05/17] Losartan/Hydrochlorothiazide [Hyzaar 100-25 Tablet] 1 tab PO DAILY 06/20/15 [History Confirmed 07/05/17] Montelukast [Singulair] 10 mg PO DAILY 06/20/15 [History Confirmed 07/05/17] Opcon-A 1 drp OP PRN PRN 06/20/15 [History Confirmed 07/05/17] Ranitidine [Zantac] 300 mg PO DAILY 06/20/15 [History Confirmed 07/05/17] Vitamin E 1,000 unit PO DAILY 06/20/15 [History Confirmed 07/05/17] Meloxicam [Mobic] 15 mg PO DAILY 06/16/16 [History Confirmed 07/05/17] Rivaroxaban [Xarelto] 20 mg PO DAILY 06/29/16 [History Confirm ed 07/05/17] fluticasone 250 mcg-salmeterol 50 mcg/dose blistr powdr for inhalation 1 inh INHALATION Q12H 06/16/17 [History Confirmed 07/05/17] azelastine 0.15 % (205.5 mcg) nasal spray 205.5 mcg INTRAN SHAI BID #30 ml 06/21/17 [Rx Confirmed 07/05/17] fluticasone 50 mcg/actuation nasal spray,suspension 1 spray INTRANASAL BID #16 g 06/21/17 [Rx Confirmed 07/05/17] amiodarone 200 mg tablet 200 mg PO QDAY 07/01/17 [History Confirmed 07/05/17] isosorbide dinitrate 30 mg tablet 30 mg PO QDAY tab 07/01/17 [History Confirmed 07/05/17] ascorbic acid (vitamin C) 500 mg capsule 500 mg PO QDAY cap 07/05/17 [His tory Confirmed 07/05/17] duloxetine 30 mg capsule,delayed release 30 mg PO QDAY 07/05/17 [History Confirmed 07/05/17] ferrous sulfate 325 mg (65 mg iron) tablet 325 mg PO QDAY tab 07/05/17 [History Conf irmed 07/05/17] [facility] Medical History Carotid stenosis (Chronic) GERD (gastroesophageal reflux disease) (Chronic) Lung nodule (Chronic) Atherosclerotic heart disease of [place] coronary artery without angina pectoris (Chronic) Moderate persistent asthma (Chronic) Chest pain (Acute) COPD (chronic obstructive pulmonary disease) (Chronic) Paroxysmal atria l fibrillation (Chronic) Hyperlipidemia (Chronic) Iron deficiency (Chronic) Hypertension (Chronic) Fibromyalgia (Chronic) History of pulmonary embolism (Chronic) Surgical History History of foot surgery (Resolved) History of hand surgery (Resolved) History of mandibular surgery (Resolved) History of sinus surgery (Resolved) mole removal (Resolved) F amily History Sister Breast cancer Brother Heart disease Sister Diabetes Social History Smoking Status: Former smoker second hand exposure: No alcohol intake: never substance use type: does not use ROS Const Const: Positive for fatigue; negative for body ache, fever(s), chills, night sweats, daytime sleepiness, difficulty sleeping, weight gain, weight loss, increased appetite, poor appetite, anorexia, other, frequent falls, weakness, excessive sweating or headache(s) Eyes Eyes: Negative for blind spots, loss of peripheral vision, transient lo ss of vision, change in vision, floaters, tunnel vision, other, blurry vision or double vision ENT ENT: Negative for dizziness, headache(s), tongue swelling, lip swelling or balance problems Cardio Ches t Pain: Yes Character: other (Heaviness) Onset: at rest Location: mid sternal, right chest Duration: minutes, hours (Up to 30 minutes) Exacerbation: other (Breathing), rest Palpitations: No Edema: None Muscle aches with walking: None Additional Details: Chest pain, mid sternal to right chest, as a heaviness, worsened with breathing but also at rest. She states Dr. Pop believes it is most likely mus culoskeletal. Resp Respiratory: Negative for SOB with activity, SOB at rest, SOB orthopnea\SOB lying down, Cough, Coughing up blood/hemoptysis, chest congestion, pain on inspiration, snoring, stridor, w heezing, crackles, paroxysmal nocturnal dyspnea or other Additional Details: Patient reports constant dry cough GI GI: Negative nausea, vomiting, heartburn, constipation, belching, bloating, cramping, v omiting blood/hematemesis, bright, red blood in stools, black,tarry stools, loose stools, Difficulty Swallowing or other : Negative for hematuria, frequent nighttime urination/ nocturia, erectile d ysfunction or abnormal vaginal bleeding Musc Musc: Positive for muscle aches/ myalgia (Chronic back pain / starting therapy.); negative for balance problems, muscle weakness or joint pain Skin Skin: Neg ative redness, non-healing lesions, unusual bruising, skin ulcer, wounds, jaundice, other or rash Neuro Neuro: Negative for lightheadedness, near syncope, syncope, orthostatic symptoms, confusion, memor y loss, restless legs, vertigo, seizures, lack of coordination, other, frequent falls, weakness, blurry vision, double vision, dizziness or headache(s) John Hematologic/Lymphatic: Negative for easy blee ding, easy bruising, enlarged lymph nodes or other Endo Endo: Positive for fatigue; negative for cold intolerance, heat intolerance, excessive sweating, flushing, increased thirst/drinking, increased hu nger, hair loss, hair growth or other Psych Psych: Negative for anxiety, depression, thoughts of harming anyone, thoughts of harming yourself, visual hallucinations, panic attacks or audible hallucinati ons Allergy Allergy/Immunology: Negative for throat swelling, Negative for hives, Negative for tongue swelling, Negative for lip swelling, Negative for rash Cardiology Exam Const Appearance: cooperati ve, healthy appearing, comfortable and well developed Nutritional Appearance: average body habitus Orientation: alert, awake and oriented x3 Head Head: normal to inspection and normocephalic Ears: heari ng grossly normal bilaterally Nose: external nose normal Face and Sinus: face symmetric Mouth: oral mucosae normal Teeth and gingiva: fair dentition Eyes General: appearance normal, both eyes and all re lated structures Eyelids: eyelids normal Conjunctivae: conjunctivae normal Pupils: PERRL EOM: EOM intact bilaterally Neck Neck: normal visual inspection Carotids: normal carotid upstroke Chest Chest ins pection: normal inspection of the chest and symmetric chest movement Auscultation: Bilateral: Clear to Auscultation Cardio Palpation: normal PMI Heart sounds: S1 normal and S2 normal GI GI: normal to in spection, soft, no hepatosplenomegaly and bowel sounds present Neuro General: alert, awake, oriented x3, gait normal and moves all extremities Skin Skin: no rashes or lesions noted Extremities Pulses: N ormal: Right Radial Pulse, Left Radial Pulse Lower Extremity Edema: None: Bilateral Psych Psychological: normal affect Assessment AND Plan 1. Paroxysmal atrial fibrillation I48.0 Plan She appears to b e remaining in sinus rhythm at this time. This is based upon her follow-up ECG today demonstrating sinus rhythm/sinus bradycardia with a first-degree AV block with no acute ECG changes. She will contin ue her current medical therapy which has included medications for rate control therapy as well as antiarrhythmic therapy and anticoagulant therapy. Orders Orders: 2. CAD (coronary artery disease) I25.1 0 Plan She does have a history of underlying CAD. The previous studies are as noted above. She continues with chest discomfort which is somewhat atypical and may be musculoskeletal. However she will be reassessed with a follow-up pharmacologic stress nuclear imaging study. Depending upon the results she may or may not need further evaluation with diagnostic cardiac catheterization. Orders Orders: 3. Hyperlipidemia, unspecified hyperlipidemia type E78.5 Plan She will continue risk factor evaluation and care. This will include a future fasting lipid/hepatic profile. Orders Orders: 4. Essential hyper tension I10 Plan She states her blood pressure does fluctuate up and down. She notes that is not uncommon it may elevate in the physician's office and then be normal later on in the day. At the present time there been no abrupt changes in her medications. If her blood pressure trends are noted to be elevating that her medications may need to be adjusted. Orders Orders: 5. Chest pain, unspecified type R07.9 Plan Again she does have chest discomfort. It is somewhat atypical. However based upon her cardiovascular risk factors and previous diagnosis she will be reassessed with a follow-up pharmacologic stress nuclear imaging study. Orders Orders: Plan Detail Additional Comments She will continue medical management. She will undergo outpatient evaluation as noted above. She will continue with future outpatient cardiovascular follow-up as well. She will notify the office of any concerns in the interim. In the meantime she will continue to follow with her primary care physician. She will also follow with her hollock maker based on her underlying pulmonary disease process and history of pulmonary embolism. Thank you for allowing me to participate in the care of your patient. Please don't hesitate to call if any issues arise. This note was generated using a voice recognition system and there may be incorrect words, spelling or punctuation that were not noted when reviewing the office note prior to saving. Follow Up 9 Months (PFM) Coding Level of Care Code Off vis,est,level 4 Diagnoses Paroxysmal atrial fibrillation I48.0 CAD (coronary artery disease) I25.10 Coronary Disease-Associated Arter y/Lesion type: [place] artery Hyperlipidemia, unspecified hyperlipidemia type E78.5 Hyperlipidemia type: unspecified Essential hypertension I10 Hypertension type: essential hypertension Chest pain, unspe cified type R07.9 Chest pain type: unspecified Coding Level of Care Code Off vis,est,level 4 Diagnoses Paroxysmal atrial fibrillation I48.0 CAD (coronary artery disease) I25.10 Coronary Disease-Assoc iated Artery/Lesion type: [place] artery Hyperlipidemia, unspecified hyperlipidemia type E78.5 Hyperlipidemia type: unspecified Essential hypertension I10 Hypertension type: essential hypertension Chest pain, unspecified type R07.9 Chest pain type: unspecified 07/05/17 1123 <Electronically signed by Mike Cota MD> Date Mike washburn MD Cosigner Signature: Date (if applicable) CC: Enrike Jaimes DO 05-Jul-2017 12 Lead EKG performed by [facility] Result: Comments: See Note; NOTES: [facility] [address] [place] [address] 12 Lead EKG performed by [facility] 07/05/17 1033 MR#: [id number] Acct: [id number] Name: LUPE SANDOVAL Rep #: [id number] : 1945 72 From: Mike Cota MD Attending Dr: Mike Cota MD Status: DEP AMB Ordering Dr: Mike Cota MD Date: 07/05/17 Location: [facility] Sex: F C Admitted: BMS/12 Lead EKG performed by [facility] ECG Report Interpretation Sinus Bradycardia -First degree A-V block Poor R wave progressionElectronically signed on 2017 at 11:45 by Mike Cota 07/05/17 1146 Date Mike Cota MD CC: Enrike Jaimes DO Date Dictated: 07/05/171032 Date Transcribed: 07/05/171032 Sugar Cane Grower: PM Signed 16-Jun-2017 Pulmonary Visit Report Result: Comments: See Note; NOTES: [facility] [id number] [facility] [place] [address] OFFICE VISIT Date of Service: 06/16/17 MR#: [id number] Acct: [id number] Name: LUPE BOOGIE Rep #: [id number] : 1945 Provider: Kirsten Padilla Age/Sex: 72/F Location: [facility] Status: Signed Assessment AND Plan 1. Moderate persistent asthma without complication J45.40 St atus Chronic Plan Continue Advair. She does not appear to be in exacerbation of her asthma today. No indication for antibiotics or prednisone. Will attempt to control the postnasal drip, therefore contr olling her cough. Placing her on Dymista 1 spray each nostril twice daily. She has been encouraged to contact the office after 2 weeks on the medication she has not seen improvement in her symptoms. Ot genet, follow-up with Dr. Pop in 6 months. 2. Seasonal allergic rhinitis, unspecified trigger J30.2 Status Chronic Plan Plan to step up therapy for the postnasal drip. Otherwise no maintenance medi cation changes. Follow-up with Dr. Pop in 6 months. Plan Detail Other Medications New: azelastine-fluticasone 137-50 mcg/spray (Dymista) administer in1 spray Intranasal BID to each nostril Follow U p 6 Months (BWA) HPI 6 M FU: Chief Complaint: Cough HPI Comments Details: This patient presents the office today for a routine follow-up on her moderate persistent asthma and seasonal allergies. She i s ambulatory and currently on room air. She reports that over the last 6 months she has not been to the ED urgent care for any breathing problems. She has not required antibiotics or prednisone for any respiratory illnesses. She does admit that she had the flu twice over the winter but did not require antibiotics to treated. He treated her symptoms, rested and overcame the illness w [facility] intervention. She continues to use Advair twice daily. She does rinse her mouth out after each use. She denies any medication side effects such as sore throat or thrush. She is using her ipratro pium bromide nasal spray, but continues to have a postnasal drip. She also continues to have a chronic nonproductive cough. She denies any sputum production or hemoptysis. She denies any wheezing, chest tightness or chest pain. She has not experienced any palpitations. She denies any fever, body aches or chills. See complete review of systems. She does report some dyspnea on exertion, occasionally she feels short of breath at rest. His symptoms have not changed since her last office visit, is not worse and has not gotten any better. Intake Vital Signs06/16/17 Height 5 ft 5 in 06/16/17 Weight: 144 lb Intake Visit Reasons: 6 M FU Allergies No Known Allergies Allergy (Verified 06/16/17 10:18) Medications Amlodipine [Norvasc] 10 mg PO DAILY 06/20/15 [History Confirmed 06/16/17] Aspirin [Aspi rin, Baby] 81 mg PO DAILY@0800 06/20/15 [History Confirmed 06/16/17] Atorvastatin Calcium [Lipitor] 60 mg PO QHS 06/20/15 [History Confirmed 06/16/17] Calcium Carbonate/Vitamin D3 [Calcium 600-Vit D3 40 0 Caplet] 1 ea PO DAILY 06/20/15 [History Confirmed 06/16/17] Carvedilol [Coreg (Beta Jonn)] 12.5 mg PO BID 06/20/15 [History Confirmed 06/16/17] Cholecalciferol (VIT D3) [Vitamin D3] 1,000 unit PO D AILY 06/20/15 [History Confirmed 06/16/17] Dexlansoprazole [Dexilant] 60 mg PO DAILY 06/20/15 [History Confirmed 06/16/17] Ipratropium [place] 0.06% [ATROVENT NASAL SPRAY] 1 spray NASAL PRN PRN 06/20/15 [History Confirmed 06/16/17] Isosorbide Dinitrate [Isordil] 30 mg PO DAILY 06/20/15 [History Confirmed 06/16/17] Losartan/Hydrochlorothiazide [Hyzaar 100-25 Tablet] 1 tab PO DAILY 06/20/15 [History Con firmed 06/16/17] Montelukast [Singulair] 10 mg PO DAILY 06/20/15 [History Confirmed 06/16/17] Multivitamins,Therapeutic [Multivitamin] 1 tab PO DAILY 06/20/15 [History Confirmed 06/16/17] Opcon-A 1 drp OP PRN PRN 06/20/15 [History Confirmed 06/16/17] Ranitidine [Zantac] 300 mg PO DAILY 06/20/15 [History Confirmed 06/16/17] Vitamin E 1,000 unit PO DAILY 06/20/15 [History Confirmed 06/16/17] Meloxicam [ Mobic] 15 mg PO DAILY 06/16/16 [History Confirmed 06/16/17] Amiodarone HCl 200 tab PO DAILY 06/29/16 [History Confirmed 06/16/17] Rivaroxaban [Xarelto] 20 mg PO DAILY 06/29/16 [History Confirmed 8] azelastine-fluticasone 137 mcg-50 mcg/spray nasal spray 1 spray INTRANASAL BID #23 g 06/16/17 [Rx Confirmed 06/16/17] fluticasone 250 mcg-salmeterol 50 mcg/dose blistr powdr for inhalation 1 inh INHA LATION Q12H 06/16/17 [History Confirmed 06/16/17] PFSH Medical History MOLE REMOVAL (Acute) Lung nodule (Chronic) Chronic cough (Chronic) Chest discomfort (Chronic) History of pulmonary embolism (Resolved) BMI 26.0-26.9,adult (Chronic) Atherosclerotic heart disease of [place] coronary artery without angina pectoris (Chronic) Moderate persistent asthma (Chronic) Seasonal allergies (Chronic) Pneumonia (Suspected) CAD (coronary artery disease) (Chronic) Chest pain (Acute) Pulmonary embolism on right (Chronic) COPD (chronic obstructive pulmonary d isease) (Chronic) Paroxysmal atrial fibrillation (Chronic) Hyperlipidemia (Chronic) Iron deficiency (Chronic) Neutropenia (Resolved) Anemia (Resolved) Hypertension (Chronic) Surgical History History of mandibular surgery (Resolved) History of sinus surgery (Resolved) H/O foot surgery (Resolved) H/O hand surgery (Resolved) Family History (Revie wed06/16/17 @ 17:00 by MARLENI SharmaC) Sister Breast cancer Brother Heart disease Sister Diabetes Social History Smoking Status: Former smoker second hand exposure: No alcohol intake: never substance use type: does not use Review of Systems Const CONSTITUTIONAL: Positive fatigue; negative anorexia, body ache, chills, daytime sleepiness, fever(s), night sweats, oral thrush, stops parris athing during sleep, weight loss, sleeping in chair, weight loss, weight gain, frequent colds, seasonal allergies, other, headache(s) or orthopnea EETM Ear Nose Throat Mouth: Positive hearing normal, na kanchan discharge and post nasal drip; negative hard of hearing, hoarseness, dry mouth in morning, change in vision, itchy eyes, eye pain, swallowing Difficulty, ear pain, nose bleed, headache(s), mouth jez n, nasal congestion, sinus pain, sinus pressure, sore throat or other Cardio Cardiovascular: Negative chest pain, chest pain at rest, chest pain with activity, irregular heart rhythm, edema, shortness o f breath when lying down, palpitations, murmur or other Resp Respiratory: Positive as per HPI, shortness of breath and cough cough: Positive non-productive; negative pain with cough, wheezing, chest con gestion, chest tightness, pain on inspiration, inhalers, increase use of rescue inhalers, snoring, apnea or other Gastro Gastrointestional: Negative bloody stools, change in appetite, difficulty swallow ing, reflux, hematemesis, melena stool, loose stool, constipation or other Genitourinary: Negative blood in urine, nocturia, pain with urination or other Musc Musculoskeletal: Negative body pain, elle k pain, neck pain or other Skin/Breast Skin/Breast: Negative dry skin, itching, rash, unusual bruising, breast lump or other Neuro Neurological: Negative restless legs, confusion, weakness or other Psyc h Psychocological: Negative abnormal sleep pattern, anxiety, thoughts of hurting self/others, hopelessness or other Lymph Lymphatic: Negative easy bleeding, easy bruising, swollen lymph nodes or other Exam Const Constitutional: Positive conversant, cooperative, in no acute respiratory distress, healthy appearing, well developed, well nourished and good hygiene Head Head: Positive normocephalic and a traumatic; negative cyanosis of lips/distal nose Eyes Eye: Positive clear conjunctiva and nystagmus; negative scleral abnormality Ears Ear: Positive hearing normal and external ears normal; negative angeline d of hearing Nose Nose: Positive external nose normal and no nasal discharge; negative epistaxis Mouth Mouth: Positive post nasal drip, oral mucosae normal, no lesions, good dentition and posterior orop harynx is adequate; negative malodorous breath or oral thrush present Mallampati Score: I: Mallampati Score Neck Neck: Positive normal visual inspection, full ROM and trachea midline; negative lymphaden opathy, JVD or tender Chest Wall Chest: Positive normal inspection of the chest and symmetric chest movement; negative increased A/P diameter Resp lung sounds: Positive clear to auscultation, good air e xchange, normal expiratory time and normal respiratory effort; negative wheezes, wheeze present on forced exhalation, rhonchi, rales or dullness to percussion Cardio Cardiac: Positive regular rate, regu lar rhythm, S1 normal and S2 normal; negative murmur GI GI: Positive normal to inspection and normal bowel sounds; negative distended Genitourinary: Positive deferred Musc Musculoskeletal: Positive s teady gait and ROM normal; negative kyphosis or scoliosis Skin Pulmonary Skin Exam: Positive intact; negative rash, lesion, ulcers, erythema or scaly Pulses Pulse: Yes pulses normal x4 extremities Extre mities Extremities: No edema, Yes capillary refill normal, No clubbing, No cyanosis, No stasis dermatitis Neuro Neurologic: Yes conversant, Yes no focal neuro deficits, Yes cooperative, Yes normal cogni tion, Yes normal coordination, Yes normal concentration, Yes understands questions Lymph Lymphatic: No lymphadenopathy, No tenderness, No cervical adenopathy, No axillary adenopathy Psych Appearance: Po sitive grossly normal, eye contact and well kempt Mental Status: Positive mental status grossly normal Mood: Positive congruent mood Affect: Positive normal affect Coding Level of Care Code Off vis,es t,level 4 Diagnoses Moderate persistent asthma without complication J45.40 Asthma complication type: uncomplicated Seasonal allergic rhinitis, unspecified trigger J30.2 Allergic rhinitis trigger: unspe cified 06/16/17 9786 <Electronically signed by Kirsten LOPEZ> Date Kirsten Simer Signature: Date ___ (if applicable) CC: Enrike Jaimes DO 09-Jun-2017 L/S Spine Min 4 Views Result: Comments: See Note; NOTES: [facility] Imaging Services [address] [place] [address] L/S Spine Min 4 Views MR#: [id number] Acct: [id number] Name: LUPE LOPEZ Rep #: [id number] : 1945 F 72 From: Brennan Mike DO PCP: Enrike Jaimes DO Status: REG CLI Study: L/S Spine Min 4 Views Date of Exam: 06/09/17 Exam# [id number] Ordering Dr: Enrike Jaimes DO STUDY: X-RAY - LUMBAR S PINE REASON FOR EXAM: Female, 72 years old. Chronic pain. TECHNIQUE: 5 view(s) of the lumbar spine were obtained. COMPARISON: Thoracic spine, June 09, 2017. FIND INGS: Normal lumbar lordosis. There is slight reversal of lumbar lordosis. There is a normal alignment of the vertebrae. There is multilevel endplate spondylosis of the lumbar vertebrae. There is multi -level degenerative disc disease with multi-level disc space narrowing. There is no evidence of acute fracture or loss of vertebral axial height. There is no demonstrated spondylolysis of the pars inter articulares. There is atherosclerotic calcification of the abdominal aorta without a demonstrated aneurysm. 0072 RAD/L/S Spine Min 4 Views IMPRESSION : Degenerative changes of the cervical spine without acute fracture or subluxation. Electronically Signed: Brennan Mike DO at 16:29 EDT Tel [phone], Service support , Fax CC: Enrike Jaimes DO Sugar Cane Grower: Signed 09-Jun-2017 Thoracic Spine 3 Views Result: Comments: See Note; NOTES: [facility] Imaging Services [address] [place] [address] Thoracic Spine 3 Views MR#: [id number] Acct: [id number] Name: LUPE LOPEZ Rep #: [id number] : 1945 F 72 From: Jose Antonio Jensen PCP: Enrike Jaimes DO Status: REG CLI Study: Thoracic Spine 3 Views Date of Exam: 06/09/17 Exam# [id number] Ordering Dr: Enrike Jaimes DO STUDY: X-RAY - THORACIC SP INE REASON FOR EXAM: Female, 72 years old. Chronic pain TECHNIQUE: 2 view(s) of the thoracic spine were obtained. COMPARISON: None. FINDINGS: Normal kyphosis of t he thoracic spine. There is no substantial scoliosis. Normal thoracic vertebrae and endplates. Normal disc space heights. The soft tissue structures are unremarkable. _ RAD/Thoracic Spine 3 Views IMPRESSION: Normal x-ray examination of the thoracic spine. Electronically Signed: Jose Antonio Jensen DO at 0:00 EDT , Service suppo rt , CC: Enrike Jaimes DO Sugar Cane Grower: Signed 19-Apr-2017 Brain W/WO Contrast Result: Comments: See Note; NOTES: [facility] Imaging Services [address] [place] [address] Brain W/WO Contrast MR#: [id number] Acct: [id number] Name: LUPE LOPEZ Rep #: [id number] : 1945 F 72 From: Steven Ratliff MD PCP: Enrike Jaimes DO Status: REG CLI Study: Brain W/WO Contrast Date of Exam: 04/19/17 Exam# [id number] Ordering Dr: Enrike Jaimes DO STUDY: MRI BRAIN WITH AN D WITHOUT CONTRAST REASON FOR EXAM: Female, 72 years old. Chronic headaches TECHNIQUE: Standardized multiplanar fat and water weighted pulse sequences were obtained. 7 ml of Gadavist contrast material was administered intravenously for the contrast portion of the examination. COMPARISON: CT of the brain on April 17, 2014 FINDINGS: Mild atrophy and periventricu lar white matter ischemic changes without mass effect or restricted diffusion.. Normal bilateral basal ganglia. Normal thalami. There is no extra-axial fluid accumulation. Normal flow voids within the major intracranial circulation suggesting patency by spin echo criteria. Normal venous enhancement. There is no enhancing intra-axial or extra-axial abnormality. Normal sella turcica, pituitary gland, infundibular stalk, optic chiasm and hypothalamus. Normal tectal plate and pineal gland. Normal midbrain, swati and medulla. Normal cerebellum. Normal basal cisterns. Normal bilateral temporal bones. N ormal bilateral internal auditory canals. There are postsurgical changes of the orbits.. There is mild mucosal thickening in the maxillary and ethmoid sinuses.. There are postsurgical changes involving the right maxillary antrum Normal calvarium and skull base. Normal visualized soft tissue structures. Normal visualized upper cervical spine. MR I/Brain W/WO Contrast IMPRESSION: Atrophy and periventricular white matter ischemic changes without evidence for acute infarct. No evidence for obstructive hydrocephalus mass or acute bleed. Bilateral m axillary and ethmoid sinus disease Electronically Signed: Steven Ratliff MD at 22:17 EST , Service support , CC: Enrike Jaimes DO Sugar Cane Grower: Signed 05-Jan-2017 Hepatobilliary Img w/Pharm Int Result: Comments: See Note; NOTES: [facility] Imaging Services [address] [place] [address] Hepatobilliary Img w/Pharm Int MR#: [id number] Acct: [id number] Name: LUPE LOPEZ Rep # : [id number] : 1945 F 71 From: Dom Sorto DO PCP: Enrike Jaimes DO Status: REG CLI Study: Hepatobilliary Img w/Pharm Int Date of Exam: 01/05/17 Exam# [id number] Ordering Dr: Enrike Jaimes DO CLI NICAL: 71-year-old female with history of right upper quadrant abdominal pain. RADIONUCLIDE HEPATOBILIARY SCINTIGRAPHY COMPARISON: Gallbladder ultrasound report 12/23/2016 FINDINGS: Following the int ravenous administration of 5.6 mCi of 99m Tc Mebrofenin, hepatobiliary images reveal: 1. Relatively prompt and homogeneous radiopharmaceutical concentration is noted by a normal sized liver. No parench ymal defects are identified. 2. Gallbladder activity is identified at 10 minutes post radiopharmaceutical administration. 3. Intestinal tract is not visualized during 60 minutes of sequential image acqu isition. Small bowel is defined following the administration of the fatty meal. 4. Washout of the radiopharmaceutical by the hepatic parenchyma appears qualitatively normal. The patient was administere d a fatty meal (8 ounces Boost). The post fatty meal ingestion gallbladder ejection fraction calculated at 52 minutes was noted to be 84.0 % (normal greater than 30%). NM/Hepatobill iary Img w/Pharm Int IMPRESSION: 1. NORMAL 99m Tc Mebrofenin hepatobiliary imaging examination with fatty meal ingestion. A. A gallbladder ejection fraction calculated to be greater than 30% following the administration of an ingested fatty meal makes the probability of functional hepatobiliary disease (gallbladder and/or sphincter of Oddi dyskinesia) and/or organic hepatobiliary disease (chronic sagrario lculous cholecystitis and/or cystic duct syndrome) to be low. (Minesh and Jonathan, J Nucl Med 43: 1603, 2002). Electronically Signed: Dom Sorto DO at 11:45 EDT Tel , Service support , CC: Enrike Jaimes DO Sugar Cane Grower: Signed 23-Dec-2016 Gallbladder Result: Comments: See Note; NOTES: [facility] Imaging Services [address] [place] [address] Gallbladder MR#: [id number] Acct: [id number] Name: LUPE LOPEZ Rep #: [id number] : F 71 From: Terri Dash MD PCP: Enrike Jaimes DO Status: REG CLI Study: Gallbladder Date of Exam: 12/23/16 Exam# [id number] Ordering Dr: Enrike Jamies DO US Gallbladder (abdomen limited) INDICATION: RUQ PAIN X 1 WEEK COMPARISON: None TECHNIQUE: Ultrasonographic grayscale and limited Doppler investigation of the right upper quadrant. FINDINGS: The liver measures 12 cm and demonstrate s normal echogenicity. The gallbladder appears unremarkable without evidence of colon wall thickening or pericholecystic fluid. Adjacent bowel is noted. Mcneill sign is negative. There is no evidence of pericholecystic fluid. Pancreas is not well seen. Right kidney is normal in size with 13 cm and demonstrates no evidence of hydronephrosis. A 6 cm cortical renal cyst is incidentally noted. ORDER #: [id number] US/Gallbladder IMPRESSION: 6 cm right cortical renal cyst. Unremarkable gallbladder. at 0058 Reported and signed b y: Terri Dash MD Electronically Signed: Terri Dash MD at 23:56 EDT Tel , Service support , CC: Enrike Jaimes DO Sugar Cane Grower: Signed 19-Nov-2016 SCREENING MAMM (CAD), BILAT Result: Comments: See Note; NOTES: [facility] Imaging Services [address] [place] [address] SCREENING MAMM (CAD), BILAT MR#: [id number] Acct: [id number] Name: LUPE LOPEZ Rep #: [id number] : 1945 F 71 From: Johnny Gilman MD PCP: Enrike Jaimes DO Status: REG CLI Study: SCREENING MAMM (CAD), BILAT Date of Exam: 11/19/16 Exam# [id number] Ordering Dr: Enrike Jaimes DO MAMM OGRAPHY - BILATERAL SCREENING REASON FOR EXAM: Female, 71 years old. Routine annual screening examination. PERTINENT HISTORY: Sister with breast cancer. TECHNIQUE: Digital bilateral breast pee (3D m ammographic acquisition) in the CC and MLO projections. 2-D mediolateral oblique (MLO) and craniocaudad (CC) views of both breasts were obtained. CAD: Full Field Digital Mammography with Computer Added Detection was performed. COMPARISON: Comparison is made with prior study dated November 19, 2015 and October 02, 2014. FINDINGS: Breast Composition: The breasts are hete rogeneously dense, which may obscure small masses. There are no dominant masses or suspicious calcifications. Stable appearance of the vascular and secretory calcifications. No other significant abnor malities are identified. There has been no significant change since the prior study. HPBI/SCREENING MAMM (CAD), BILAT IMPRESSION: Stable bilatera l screening mammogram. Yearly follow-up mammogram recommended. (A) ASSESSMENT CATEGORY: BIRADS Category 2: Benign. A letter regarding these results will be sent to the patient by the facility within 30 days. Approximately 10% of breast cancers are not detected by mammography. A normal mammogram should not delay biopsy of a clinically suspicious abnormality. RS20 15 Electronically Signed: Johnny Gilman MD at 11:14 EDT Tel [phone], Service support , CC: Enrike Jaimes DO Sugar Cane Grower: Signed 17-Nov-2016 6 Minute Walk Test Result: Comments: See Note; NOTES: [facility] Pulmonary Services/Neurology [address] [place] [address] MR#: [id number] Acct: [id number] Name: LUPE LOPEZ Rep #: [id number] : 04/14/1944 71 From: Merlin Pop MD Referring Dr: Kirsten Padilla EXECUTIVE ADMINISTRATIVE ASSISTANT Date: Ordering Dr: Sex: F C Location: PSN PSN 6 Minute Walk Test - 6 Minute Walk Test 6 Minute Walk Test: 6 Minute Walk Test PS N:6-Minute Walk Test Start: 11/17/16 11:09 Freq: Status: Active Document 11/17/16 11:00 HG (Rec: 11/17/16 11:11 HG [id number]) 6 Minute Walk Test Date Performed 11/17/16 Time Performed 11:00 Height 1.65 m W eight: 63.503 kg Weight in Pounds 140.[address]: Kirsten Padilla Assistive device used: None Pre-test Oxygen Delivery Method Room Air Pulse Ox 99 Pulse Rate (beats/min) 64 Dyspnea Masood Scale (0 -10) 1 Exertion Masood Scale (6-20) 6 1st minute Oxygen Delivery Method Room Air Pulse Ox 98 Pulse Rate (beats/min) 67 2nd minute Oxygen Delivery Method Room Air Pulse Ox 98 Pulse Rate (beats/min) 72 3rd minute Oxygen Delivery Method Room Air Pulse Ox 97 Pulse Rate (beats/min) 76 4th minute Oxygen Delivery Method Room Air Pulse Ox 98 Pulse Rate (beats/min) 74 5th minute Oxygen Delivery Method Room Air P ulse Ox 97 Pulse Rate (beats/min) 74 6th minute Oxygen Delivery Method Room Air Pulse Ox 98 Pulse Rate (beats/min) 75 Post-test Oxygen Delivery Method Room Air Pulse Ox 98 Pulse Rate (beats/min) 71 Dysp salma Masood Scale (0-10) 2 Exertion Masood Scale (6-20) 8 Full Laps Walked 14 Partial Lap, Number of Tiles Walked 0 Total Distance Walked (ft) 826 - Interpretation Interpretation: The patient was able to ambulate a total of 826 feet over the course of 6 minutes on room air with no assistive devices or breaks. The patient experienced no significant desaturation or tachycardia. These findings are consist ent with a musculoskeletal limitation exercise tolerance. - Recommendations Recommendations: No supplemental oxygen is indicated at this time. 11/17/16 154 <Electronically signed by Merlin Pop MD> Date Merlin Pop MD CC: Date Dictated: 11/17/161548 Date Transcribed: 11/17/161548 Sugar Cane Grower: Merlin Pop Signed 12-Nov-2016 Pulmonary Function Report Comp Result: Comments: See Note; NOTES: [facility] Pulmonary Services/Neurology [address] [place] [address] MR#: [id number] Acct: [id number] Name: LUPE LOPEZ Rep #: [id number] : 71 From: Merlin Pop MD Referring Dr: Kirsten Padilla EXECUTIVE ADMINISTRATIVE ASSISTANT Status: REG CLI Ordering Dr: Date: Location: [facility] Sex: F C COMPLETE PULMONARY FUNCTION TEST INTERPRETATION Brief HPI: Patient is a 71 year old female, currently under the care of myself, who presents to [facility] for complete pulmonary function tests secondary to diagnosis of COPD. Respiratory therapist reports good effort and reproducible results. Interpretation: Forced expiration spirometry shows a mild large airways obstructive ventilatory defect with an FEV1 of 80 % predicted. There is a signifi cant bronchodilator response by ATS criteria. Spirograms are of good quality and plateau slowly, indicating slowly emptying areas of the lungs. The respiratory flow volume loop shows a decreased expirat ory flow rates at high lung volumes consistent with small airways obstruction. Lung volumes by body plethysmography show a normal total lung capacity at 5 L, 98 % predicted. All other lung volumes are within normal limits. Diffusion capacity by carbon monoxide is normal at 82 % predicted. The airway resistance is normal. Previous pulmonary function tests from 12/06/2015 show no significant change. Impression: Partially reversible mild large airways obstructive ventilatory defect with relatively preserved diffusion capacity. 11/12/166 <Electronically signed by Merlin Pop MD&#6 2; Date Merlin Pop MD CC: Merlin Pop MD; Enrike Jaimes DO Date Dictated: 11/12/16 1533 Date Transcribed: 11/12/161532 Sugar Cane Grower: EDENILSON Signed 06-Oct-2016 Chest without Contrast Result: Comments: See Note; NOTES: [facility] Imaging Services [address] [place] [address] Verdana 4d Chest without Contrast MR#: [id number] Acct: [id number] Name: LUPE LOPEZ p #: [id number] : 1945 F 71 From: Sonam Hendricks MD PCP: Enrike Jaimes DO Status: REG CLI Study: Chest without Contrast Date of Exam: 10/06/16 Exam# [id number] Ordering Dr: Enrike Jaimes DO STUDY: CT CHEST WITHOUT CONTRAST REASON FOR EXAM: Female, 71 years old. Follow-up nodule RADIATION DOSAGE (If Supplied By Facility): CTDIvol = ( 8.47 ) mGy, DLP = ( 317.35 ) mGycm TECHNIQUE: Transaxial suha ging was performed without the administration of intravenous contrast material. Multiplanar coronal and sagittal images were reformatted. Individualized dose optimization techniques were used for this CT. COMPARISON: February 21, 2016 FINDINGS: There is a 3 mm opacity in the periphery of the right middle lobe on image 52. There is a 4 mm opacity in the periphery of the right lower lobe on image 62. There is a 3 mm opacity in the superior segment of the right lower lobe on image 42. There is a 3 mm opacity in the superior segment of the left lower lobe on image 50. There is minimal scarring in the lingula. There is no demonstrated pleural abnormality. There is mild enlargement of the heart. Coronary artery calcifications are present. Normal mediastinum. Norm al hilar regions. Normal unenhanced pulmonary arteries. There is atherosclerotic calcification of the aortic arch with tortuosity and elongation of the aortic arch and descending thoracic aorta. There are mild degenerative changes in the visualized spine. There is a 5 cm benign cyst in the lower pole of the right kidney. There are small cysts scattered in the liver. __ CT/Chest without Contrast IMPRESSION: There are a few scattered nodular opacities which measure less than 5 mm in size. Based on the new Fleischner criteria, no further follow-up is needed. There is no pleural effusion or significant lymphadenopathy. There is no focal airspace disease. Electronically Signed: Sonam Hendricks MD at 23:59 EDT Tel [phone], Service support , CC: Enrike Jaimes DO Sugar Cane Grower: Signed 29-Sep-2016 Dexa Bone Density Study (HP) Result: Comments: See Note; NOTES: [facility] Imaging Services [address] [place] [address] Verdana 4d Dexa Bone Density Study (HP) MR#: [id number] Acct: [id number] Name: BRAYDON LOPEZ Rep #: [id number] : 1945 F 71 From: Johnny Gilman MD PCP: Enrike Jaimes DO Status: [facility] CLI Study: Dexa Bone Density Study (HP) Date of Exam: 09/29/16 Exam# [id number] Ordering Dr: Szymanski DO STUDY: DUAL ENERGY X-RAY ABSORPTIOMETRY / DXA REASON FOR EXAM: Female, 71 years old. The patient is postmenopausal. Loss of height. TECHNIQUE: Bone Mineral Density (BMD) measurements of lumba r spine and bilateral hips were obtained. COMPARISON: None. FINDINGS: Lumbar Spine (L1-L4): g/cm2 (0.910) / T-score (-2.1) / Z-score (- 0.4) Findings are suggestive of osteopenia with a moderate fracture risk. Increased thoracic kyphosis. Left Femur Total: g/cm2 (0.636) / T-score (-3.0) / Z-score (-1.4) Left Femoral Neck: g/cm2 (0.679) / T-score (-2.6) / Z-score (-0.8) Right Femur Total: g/cm2 (0.647) / T-score (-2.9) / Z-score (-1.3) Right Femoral Neck: g/cm2 (0.653) / T-score (-2.8) / Z-score (-1.0) BD/Dexa Bone Density Study () IMPRESSION: The patient is considered osteoporotic as outlined below according to World Kade Organization (WHO) criteria with a high fracture risk. Reference Information: The T-score is the number of standard deviations above or below the standard which is normal for young adults at their peak bone mineral density. The World Health Organization (WHO) interprets the T-scores as follows: Above -1 Normal bone density Between -1 and -2.5 Osteopenia Equal to / or below -2.5 Osteoporosis As a practical clinical guideline, osteopenia may be graded as follows: Mild -1 through -1.5 Moderate -1.6 through -2.0 Severe -2.1 through -2.4 The Z-score is the number of standard deviations above or below age-matched controls. A Z-score of les s than -1.5 would be considered abnormal. References: 1. NIH Osteoporosis and Related Bone Diseases http://www.osteo.org 2. International Society for Clinical Densitometry http://www.iscd.org 3. Nation al Osteoporosis Foundation http://www.nof.org Electronically Signed: Johnny Gilman MD at 9:38 EDT Tel [phone], Service support , CC: Enrike Jaimes DO Sugar Cane Grower: Signed 19-Sep-2016 Carotid Duplex Ultrasound Result: Comments: See Note; NOTES: [facility] Cardiovascular Services [address] [place] [address] Carotid Duplex Ultrasound 09/18/16 1406 MR#: [id number] Acct: [id number] Name: LUPE BOOGIE Rep #: [id number] : 1945 71 From: Brice Murphy MD Attending Dr: Enrike Jaimes DO Status: REG CLI Ordering Dr: Enrike Jaimes DO Date: 09/18/16 Location: [facility] Sex: F C Admitted: Reason For Study: carotid stenosis Rt. Velocities/BP Lt. Velocities/BP Prox CCA 86.2/12.9 cm/sec. Prox CCA 92.6/12.3 cm/sec. Mid CCA 100.0/16.4 cm/sec. Mid CCA 106.0/17.6 cm/sec. Dist CCA 94.4/21.1 cm/sec. Di st CCA 107.0/19.3 cm/sec. Prox ICA 86.8/22.3 cm/sec. Prox ICA 109.0/19.6 cm/sec. Mid ICA 109.0/28.7 cm/sec. Mid ICA 126.0/20.4 cm/sec. Dist ICA 122.0/33.4 cm/sec. Dist ICA 105.0/28.7 cm/sec. Rt. ICA/CCA = 122.0/100.0=1.2. Lt. ICA/CCA = 126.0/106.0=1.2. Prox ECA 181.0/11.0 cm/sec. Prox ECA 135.0/6.29 cm/sec. Rt. Vert. 55.4/12.2 cm/sec. Lt. Vert. 61.7/13.7 cm/sec. Right Extracranial There is intimal th ickening but no significant atherosclerotic plaque noted in the right common carotid artery. There is heterogeneous, irregular atherosclerotic plaque noted in the right internal carotid artery. There is heterogeneous, irregular atherosclerotic plaque noted in the right external carotid artery. Antegrade flow is noted in the right vertebral artery. Left Extracranial There is intimal thickening but no significant atherosclerotic plaque noted in the left common carotid artery. There is heterogeneous, irregular atherosclerotic plaque noted in the left internal carotid artery. There is heterogeneous, sm ooth atherosclerotic plaque noted in the left external carotid artery. Antegrade flow is noted in the left vertebral artery. Procedure Carotid Duplex 36383. The exam was diagnostic. Exam performed in [facility]. Interpretation Summary Mild (<50%) stenosis right extracranial internal carotid. Mild (<50%) stenosis left extracranial internal carotid. Flow within the vertebral arteries i s antegrade bilaterally. There has been no significant change since a prior study on 05/23/2015. Or dering Physician: Enrike Jaimes Referring Physician: Enrike Jaimes Performed By: Wendy López, RDCS, RVT 09/19/16 0944 Date Brice Murphy MD CC: Enrike Jaimes DO Date Dictated: 09/18/16 1406 Date Transcribed: 09/19/16943 Sugar Cane Grower: Signed 16-Sep-2016 PT D/C Summary (1) Result: Comments: See Note; NOTES: [facility] Physical Therapy [facility] [place] [address] Fax REHABILITATION SERVICES DISCHAR GE SUMMARY MR#: [id number] Acct: [id number] Name: LUPE LOPEZ Rep #: [id number] : 1945 71 From: Shanon CASTILLO Referring DrBrooke: Enrike Jaimes DO Status: REG RCR Insurance: ANTH MEDICARE P PO HP - PT D/C Summary It has been my pleasure to treat LUPE LOPEZ under orders from Enrike Jaimes DO, for the diagnosis of Neck Pain for a total of 12 visit(s). Discharge Date: 09/15/16 Please see the following information for a summary of their discharge status. - Subjective Subjective: Pt has some R shoulder blade pain that has been there for a long time and that pain comes and goes. L si ded neck pain that she came in for is gone. Still has ROME every day but that is improved and that has been there for years and the only thing that helped that was a series of botox injections but insuran ce does not comever that. Doing HEP at home. - Pain Neck Pain Pain Intensity (Out of 10): 3 Shoulder blade pain Pain Intensity (Out of 10): 4 - Overall Improvement % Improvement: 100 - Objecti ve Objective/Function: Pt felt a little less tight with MT today. - Goals Goal 1:: I HEP Goal Progress: Goal Met Goal 2:: Decrease frequency of ROME to 2X/ week instead if every day. Goal Progress: Progr essing Goal 3:: Increase c-spine AROM by 25% each plane (C-spine AROM at time of the eval: C-spine AROM: flex 75%, ext 50%, Rot L 50%, Rot R 75%, SB B 50%) Goal Progress: Goal Met Goal 4:: Decrease neck pain to 1/10 with ADL's Goal Progress: Progressing Goal 5:: Sit with upright posture during treatment sessions. Goal Progress: Goal Met - Plan Plan: C-spine AROM:flex 100%, ext 50%, SB R 75%, SB L 100 %, Rot B 80%. Posture is good. ROME is 1X/ day - D/C Information Discharge Comments: DC PT If there are questions or concerns regarding this patient's physical therapy, please feel free to call me at . Thank you for the referral of this patient. Sincerely, Shanon Ferrara <Electronically signed by Shanon Ferrara MPT> 09/16/16 1054 CC: Enrike Jaimes DO Signed 26-Aug-2016 Re-Evaluation - PT (1) Result: Comments: See Note; NOTES: [facility] [address] [place] [address]. [address] [place] [address] Fax REEVALUATION / MEDICARE RECERTI KALEN Juanito 4d PHYSICAL THERAPY MR#: [id number] Acct: [id number] Name: LUPE LOPEZ Rep #: [id number] : 1945 71 From: Shanon Ferrara MPT Referring DrBrooke: Enrike Jaimes DO Status: REG RCR Insu erika: AN[employer]M MEDICARE PPO Enrike Jaimes DO, It has been my pleasure to treat LUPE LOPEZ over the last 8 visits for Neck Pain. Please see the progress note below for an update on the physical th erapy plan of care! Subjective: Pt reports that her pain depends on the day. She feels that PT is helping because she can move her neck much better than she did. She still having trouble with her shoul maddy blade area. She feels better when she leaves therapy. ROME still everyday but somedays they are not as bad as other days. Objective/Function: Posture: Sits with more upright posture. C-spine AROM: fle x 75%, ext 50% , SB B 50% B, Rot B 75% (still tight especially with upper traps and with side bending). Retraction and extension of the c-spine decreased R sided scapular pain. Palpation: tender and TIG HT along sub occiput and mid and upper trap areas Plan Plan: Await insurance approval for additional visits to increase c-spine AROM, decrease muscular tightness via manual and or traction, decrease fr eq of ROME and continued HEP, postural exercises and modalities PRN. Goals Goal 1:: I HEP Goal Time Frame: 4-6 Weeks Goal Progress: Goal Met Goal 2:: Decrease frequency of ROME to 2X/ week instead if every day. Goal Time Frame: 4-6 Weeks Goal Progress: Progressing Goal 3:: Increase c-spine AROM by 25% each plane (C-spine AROM at time of the eval: C-spine AROM: flex 75%, ext 50%, Rot L 50%, Rot R 75%, SB B 50%) Goal Time Frame: 4-6 Weeks Goal 4:: Decrease neck pain to 1/10 with ADL's Goal Time Frame: 4-6 Weeks Goal Progress: Progressing Goal 5:: Sit with upright posture during treatment sessions. Goal T sen Frame: 4-6 Weeks Goal Progress: Progressing Anticipated Interventions Patient/Client Instruction: Educate patient on: Plan of Care For the Purpose of:: To decrease pain, To increase ROM, To improve nutrient delivery to tissue, To improve muscle performance and motor function Therapeutic Exercise to Include: Strength training, Postural training, Flexibilty training, Relaxation training, Passive RO M, Active ROM, Scapular Strength/Stabilization For the Purpose of:: To decrease pain, To decrease swelling/inflammation, To increase ROM, To improve nutrient delivery to tissue, To improve muscle perfor patrica and motor function, To improve ability to perform ADL's Manual Therapy Techniques to Include: Passive ROM, Soft tissue mobilization For the Purpose of:: To decrease pain, To decrease swelling/infl ammation, To increase ROM, To increase oxygenation perfusion, To improve muscle performance and motor function, To improve ability to perform ADL's IF ES: Yes Cryotherapy (ice pack, ice massage): Yes Th ermo therapy (hot pack): Yes Ultrasound (thermal/non thermal): Yes For the Purpose of:: To decrease pain, To decrease swelling/inflammation, To increase ROM, To improve nutrient delivery to tissue, To i mprove muscle performance and motor function, To improve ability to perform ADL's Please do not hesitate to contact me at [phone] by phone or if you have questions or concerns reg arding this new plan of care! Sincerely, Shanon Ferrara <Electronically signed by Shanon Ferrara MPT> 08/26/16 1829 CC: Enrike Jaimes DO Signed For Medic are only, by signing this I certify the plan of care. Physicians Signature Date 28-Jul-2016 Inital Evaluation (1) - PT Result: Comments: See Note; NOTES: [facility] [place], [place] [address] Fax REHABILITATION SERVICES INITIAL EVALUATION MR#: [id number] Acct: [id number] Name: LUPE LOPEZ Rep #: [id number] : 1945 71 From: Shanon CASTILLO Referring Dr.: Enrike Jaimes DO Status: REG RCR Insurance: [employer]M MEDICARE F[employer]OM BLUE Patient's Visit Information LUPE LOPEZ is a 71 year old F referred to Physical Therapy by Enrike Jaimes DO with a diagnosis of Neck Pain. Date of Evaluation: 07/28/16 Physical Therap ist: Shanon Ferrara - Visit Plan Frequency: 2x /Week Duration: 4-6 Weeks Plan: 2X/ week for 4-6 weeks for C-spine MT to parapsinals, occiput, mid traps and upper traps, postural exercise and scapular s tability, modalities for pain control with HEP and modalities PRN - Subjective Subjective: Pt reports that she has neck pain that started about a week ago. It just started hurting and it hurt worse and worse and then she went to the Dr. She says that it hurts on the L side of her neck and goes down to shoulders. It is both side but hurts more on the L today. Dr did not do x-rays. She has had off and on neck pain for awhile and has had PT before for it. Pt did do the tractin over the door a few years ago and that healed. Pt has no arm N AND t or weakness. Pt is not sleeping well because of neck pain . She has a ROME almost every day - Pain Neck Pain Pain Intensity (Out of 10): 6 - Objective C-spine AROM: flex 75%, ext 50%, Rot L 50%, Rot R 75%, SB B 50%. UE AROM: WFL B. UE MMT: SHoulder flex, ab d ER, IR 4/5 B. Palpation: extremely tight B mid traps and c-spine paraspinals. VERY tender at occiput as well. Supine manual traction and suboccipital release was a little uncomfotable for the pt but w hen we were done X 5 min her ROME had decreased and her neck felt less stiff. Posture: Sits with Increased PPT and rounded shoulders with slight FW head posture - Goals Goal 1:: I HEP Goal Time Frame: 4- 6 Weeks Goal 2:: Decrease frequency of ROME to 2X/ week instead if every day. Goal Time Frame: 4-6 Weeks Goal 3:: Increase c-spine AROM by 25% each plane (C-spine AROM at time of the eval: C-spine AROM: f diane 75%, ext 50%, Rot L 50%, Rot R 75%, SB B 50%) Goal Time Frame: 4-6 Weeks Goal 4:: Decrease neck pain to 1/10 with ADL's Goal Time Frame: 4-6 Weeks Goal 5:: Sit with upright posture during treatment sessions. Goal Time Frame: 4-6 Weeks - Rehabilitation Potential Rehabilitation Potential: Good - Anticipated Interventions Patient/Client Instruction: Educate patient on: Plan of Care For the Purpose of:: To decrease pain, To increase ROM, To improve nutrient delivery to tissue, To improve muscle performance and motor function Therapeutic Exercise to Include: Strength training, Postural training, Fl exibilty training, Relaxation training, Passive ROM, Active ROM, Scapular Strength/Stabilization For the Purpose of:: To decrease pain, To decrease swelling/inflammation, To increase ROM, To improve nut rient delivery to tissue, To improve muscle performance and motor function, To improve ability to perform ADL's Manual Therapy Techniques to Include: Passive ROM, Soft tissue mobilization For the Purpos e of:: To decrease pain, To decrease swelling/inflammation, To increase ROM, To increase oxygenation perfusion, To improve muscle performance and motor function, To improve ability to perform ADL's IF E S: Yes Cryotherapy (ice pack, ice massage): Yes Thermo therapy (hot pack): Yes Ultrasound (thermal/non thermal): Yes For the Purpose of:: To decrease pain, To decrease swelling/inflammation, To increase ROM, To improve nutrient delivery to tissue, To improve muscle performance and motor function, To improve ability to perform ADL's Thank you for the opportunity to evaluate your patient. For Medic are and Medicare HMO plans, please review the plan of care and approve it. It will need to be FAXED BACK to us at [phone] for Medicare purposes. Please let me know if there are questions or reza rns regarding this plan of care. Physician Signature: Date: <Electronically signed by Shanon Ferrara MPT> 07/28/16 1629 CC: Enrike Jaimes DO Signed For Medicare only, by signing this I certify the plan of care. Physicians Signature Date 08-Jul-2016 Oncology Progress Note Result: Comments: See Note; NOTES: [facility] Medical Records Department [address] [place] [address] Oncology Progress Note MR#: [id number] Acct: [id number] Name: LUPE LOPEZ Rep #: [id number] : 1945 71 From: Red Spaulding MD PCP: Enrike Jaimes DO Status: REG RCR DATE OF SERVICE: 06/29/2016 PROBLEM: Leukopenia and anemia. CHIEF COMPLAINT: Followup for leukopenia and anem ia. HISTORY OF PRESENTING ILLNESS: A 71-year-old woman presented with leukopenia and anemia. She had a bone marrow biopsy in 2014, which showed no abnormalities to explain leukopenia and anemia. The pa tieradha is on observation, comes in for followup today. REVIEW OF SYSTEMS: She feels well, denies weight loss, fever, nausea, vomiting, bruising, numbness or tingling sensation in the legs. All other sys tems reviewed and negative. PHYSICAL EXAMINATION: VITAL SIGNS: Reviewed. Blood pressure 134/74, pulse is 54, respirations 18, temperature 97.6. GENERAL: Elderly woman in no acute distress. LABS: 06/29 reviewed. WBC 4.7, hemoglobin 11.1, platelets 246, neutrophil count 2.7. ASSESSMENT: Mild anemia, leukopenia is resolved based on today's labs. Discussed findings with the patient. PLAN: To cont inue observation. Return to clinic in 6 months with CBC, CMP, iron profile, vitamin B12 and folate. Rde Spaulding MD T: NTS JOB: [id number] 07/08/16 1043 <Electronically signed by Red Spaulding MD> Date Red Spaulding MD Cosigner Signature (If Indicated): Date CC: Date Dictated: 06/20 Date Transcribed: 06/30/162251 Sugar Cane Grower: Signed 21-Feb-2016 Chest without Contrast Result: Comments: See Note; NOTES: [facility] Imaging Services [address] [place] [address] Verdana 4d Chest without Contrast MR#: [id number] Acct: [id number] Name: LUPE LOPEZ p #: [id number] : 1945 F 71 From: Barrett Small MD PCP: Enrike Jaimes DO Status: REG CLI Study: Chest without Contrast Date of Exam: 02/21/16 Exam# [id number] Ordering Dr: Enrike Jaimes DO STUDY : CT CHEST WITHOUT CONTRAST REASON FOR EXAM: Female, 71 years old. Follow-up lung nodule. RADIATION DOSAGE (If Supplied By Facility): CTDIvol = ( 9.25 ) mGy, DLP = ( 339.86 ) mGycm TECHNIQUE: Transax ial imaging was performed without the administration of intravenous contrast material. Individualized dose optimization techniques were used for this CT. COMPARISON: CTA chest 06/20/2015. CT scan chest 10/24/2015. FINDINGS: As seen on axial images 70-71, there is a 6.9 x 4.0 mm noncalcified lung nodule in the lateral periphery of the right lower lobe (average diame ter 5.4 mm).. This has not increased in size since the October 2014 exam. There is mild atelectasis within the lung bases. There are no demonstrated acute pulmonary infiltrates. There is no demonstrated pleural abnormality. Normal heart and pericardium. There are coronary artery calcifications. Normal mediastinum. Normal hilar regions. Normal unenhanced pulmonary arteries. There are atherosclerotic c alcifications of the thoracic aorta and great vessels. There are multi-level degenerative changes of the thoracic spine. There is no demonstrated abnormality of the visualized upper abdomen. CT/Chest without Contrast IMPRESSION: 5.4 mm right lower lobe lung nodule demonstrates stability over the last 16 months. Based on Fleischner Society Harley gray, suggested follow-up for a 4-6 mm lung nodule is as follows: Low risk patients: Follow-up CT Chest at 12 months. If no change, no further imaging needed. High risk patients: Initial follow-up CT Chest at 6 -12 months and then at 18 - 24 months if no change. Atherosclerosis. No evidence for acute cardiopulmonary pathology. Electronically Signed: Barrett Small MD at 2:43 EST , Service support [phone], CC: Enrike Jaimes DO Sugar Cane Grower: Signed 08-Dec-2015 Pulmonary Function Report Comp Result: Comments: See Note; NOTES: [facility] Pulmonary Services/Neurology [facility] [place] [address] Pulmonary Function Test (Comp) MR#: [id number] Acct: [id number] Name: Evelia LOPEZ Rep #: [id number] : 1945 70 From: Merlin Pop MD Referring Dr: Kirsten Padilla EXECUTIVE ADMINISTRATIVE ASSISTANT Status: REG CLI Ordering Dr: Kirsten Padilla EXECUTIVE ADMINISTRATIVE ASSISTANT-C Date: 12/06/15 Location: [facility] Sex: F C DATE OF S VICE: 12/06/2015 BRIEF HISTORY OF PRESENT ILLNESS: The patient is a 70-year-old female, currently under the care of Kirsten Padilla, who presents for complete pulmonary function test braulio osborne to a diagnosis of chronic cough. Respiratory therapist reported good patient effort and reproducible results. INTERPRETATION: Forced expiration spirometry demonstrates a mild large airways obstruc tive ventilatory defect. There is no significant response to bronchodilators using strict ATS criteria. Spirograms are of good quality and do not plateau indicating slowly emptying areas of the lung. Th e respiratory flow volume loop shows decreased expiratory flow rates at all lung volumes consistent with airways obstruction. Lung volumes by body plethysmography show all lung volumes within normal li mits; however, there is a trend towards air trapping with hyperinflation. This did not reach clinical significance. Diffusion capacity by single breath carbon monoxide is preserved at 80% of predicted. Airway resistance is normal. This study was compared to a previous study completed on December 26, 2014, which shows no significant change in spirometry. IMPRESSION: Irreversible 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 MD Geri GALLO C: The patient's primary care physician T: NTS JOB: [id number] 12/08/15 0651 <Electronically signed by Merlin Pop MD> Date __ Merlin Pop MD CC: Merlin Pop MD; Kirsten Padilla; Enrike Jaimes DO Date Dictated: 12/07/15 1235 Date Transcribed: 12/07/15 1235 Sugar Cane Grower: Signed 19-Nov-2015 Bilat Scrn Digital AND CAD Result: Comments: See Note; NOTES: [facility] Imaging Services [address] [place] [address] Verdana 4d Bilat Scrn Digital AND CAD MR#: [id number] Acct: [id number] Name: DYLAN LOPEZ Rep #: [id number] : 1945 F 70 From: Johnny Gilman MD PCP: Enrike Jaimes DO Status: REG CLI Study: Bilat Scrn Digital AND CAD Date of Exam: 11/19/15 Exam# [id number] Ordering Dr: Enrike Jaimes DO MAMMOGRAPHY - BILATERAL SCREENING REASON FOR EXAM: Female, 70 years old. Routine annual screening examination. PERTINENT HISTORY: Sister with breast cancer. TECHNIQUE: Digital bilateral breast pee (3D mammographic acquisition) in the CC and MLO projections. 2-D mediolateral oblique (MLO) and craniocaudad (CC) views of both breasts were obtained. CAD: Full Field Digital Mammography with Comp uter Added Detection was performed. COMPARISON: Comparison is made with prior study dated October 02, 2014. FINDINGS: Breast Composition: The breasts are heterogeneous ly dense, which may obscure small masses. There are no dominant masses or suspicious calcifications. No other significant abnormalities are identified. There has been no significant change since the p rior study. HPBI/Bilat Scrn Digital AND CAD IMPRESSION: Stable bilateral screening mammogram. Yearly follow-up mammogram recommended. (A) ASSESSMENT CATEGORY: BIRADS Category 1: Negative. A letter regarding these results will be sent to the patient by the facility within 30 days. Approximately 10% of breas t cancers are not detected by mammography. A normal mammogram should not delay biopsy of a clinically suspicious abnormality. [id number] Electronically Signed: Johnny Gilman MD at 8:15 ED T Tel [phone], Service support [phone], CC: Enrike Jaimes DO Sugar Cane Grower: Signed 07-Oct-2015 Knee 4 or More Views Result: Comments: See Note; NOTES: [facility] Imaging Services [address] [place] [address] Verda 4d Knee 4 or More Views MR#: [id number] Acct: [id number] Name: LUPE LOPEZ Rep #: [id number] : 1945 F 70 From: Johnny Gilman MD PCP: Enrike Jaimes DO Status: REG CLI Study: Knee 4 or More Views Date of Exam: 10/07/15 Exam# [id number] Ordering Dr: Yamileth Jaimes DO STUDY: X-RAY - LEFT KNEE REASON FOR EXAM: Female, 70 years old. Atraumatic knee pain. TECHNIQUE: 4 view(s) of the knee. COMPARISON: None. FINDING S: Normal visualized distal femur. Normal visualized proximal tibia and fibula. Normal proximal tibiofibular articulation. Normal medial femorotibial compartment. Normal lateral femorotibial compar tment. Normal patellofemoral articulation. Minimal joint effusion. IMPRESSION: Minimal joint effusion. Electronically Signed: Johnny Gilman MD at 13:02 EDT Tel [phone], Service support [phone], RAD/Knee 4 or More Views IMPRESSION: Minimal joint effusion. Electronically Signed: Johnny Gilman MD at 13:02 EDT Tel [phone], Service support [phone], CC: Enrike Jaimes DO Sugar Cane Grower: Signed 27-Aug-2015 PT D/C Summary (1) Result: Comments: See Note; NOTES: [facility] [address] [place] [address]. [address] [place], [place] [address] Fax REHABILITATION RVICES DISCHARGE SUMMARY MR#: [id number] Acct: [id number] Name: LUPE LOPEZ Rep #: [id number] : 1945 70 From: Domenic Ayala PT, Cert. MDT Referring DrBrooke: Enrike Jaimes DO Status: REG R CR Insurance: AN[employer]M MEDICARE F[facility]OM [facility] - PT D/C Summary It has been my pleasure to treat LUPE LOPEZ under orders from Enrike Jaimes DO, for the diagnosis of CHRONIC RIGHT SHOULDER JEZ N /CERVICAL OA for a total of 7 visit(s). Discharge Date: 08/27/15 Please see the following information for a summary of their discharge status. - Subjective Subjective: RIGHT SCAPULAR SORE..THO RACIC ALSO MY KNEE IS PAIN FULL TODAY . MAY SEE MD. NO CERVICAL PAIN - Pain Right Shoulder Pain Intensity (Out of 10): 0 Right Scapula Pain Intensity (Out of 10): 3 Bilateral Neck Pain Intensity (Out of 10): 0 - Overall Improvement % Improvement: 40 - Objective Objective/Function: POSTURE: MILD FOWARD POSTURE. PALPATION : RIGHT SCAPULAR MT. BUE ROM : WFL. CERVICAL ROM : M IN LOSS ALL PLNES FLEXION WFL NO PAIN OTHER STRETCHING UT - Goals Goal 1:: Independant with HEP. Goal Progress: Goal Met Goal 2:: Independant with posture for ADL'S Goal Progress: Goal Met Goal 3 :: Decrease cervical and shoulder pain by 50% or greater to improve function and ADLS'S Goal Progress: Progressing Goal 4:: Patient be able to perform ADLS' and houswork activities with min limitation s. Goal 5:: pATIENT TO BE D/C TO prophalaxis Goal Progress: Progressing - Plan Plan: D/C - D/C Information Discharge Comments: Patient progrssing toward goals responded well with tx but cont to have tighyness spasm right scapuar ,manual techqnues helps to decrease pain alog with postural ex's If there are questions or concerns regarding this patient's physical therapy, please feel free to c all me at [phone]. Thank you for the referral of this patient. Sincerely, Domenic Ayala <Electronically signed by Domenic Ayala PT, Cert. JCT> 08/27/15 1406 CC: Enrike Jaimes DO Signed -Jul-2015 Inital Evaluation (1) - PT Result: Comments: See Note; NOTES: [facility] [address] [place] [address]. [address] [place] [address] Fax REHABILITATION SE RVICES INITIAL EVALUATION MR#: [id number] Acct: [id number] Name: LUPE LOPEZ Rep #: [id number] : 1945 70 From: Domenic Ayala PT, CertBrooke JCT Referring DrBrooke: Enrike Jaimes DO Status: REG RCR Insurance: [employer]M MEDICARE FREEDOM BLUE Patient's Visit Information LUPE LOPEZ is a 70 year old F referred to Physical Therapy by Enrike Jaimes with a diagnosis of CHRONIC RIGHT SHOULDER PAIN /CERVICAL OA. Date of Evaluation: 08/05/15 Physical Therapist: Domenic Ayala - Visit Plan Frequency: 2x /Week Duration: 4 Weeks - Subjective Subjective: This 70 y/o female presents to hysical therapy with cervical pain and shoulder pain for severla years which has been worseing past several months. Location of pain right lower scapular and anterior shoulder pain. Symptoms worse wit h lifting ,turning neck affects neck. Symptoms better with TENS unit at home. Denies parathesia/tingling. Denies nausea/ tinnitus/. History of cervical /shoulder pain . No injury's or predisposing fact ors.Patient also c/o ROME. SOCIAL: . VOCATION: retired - Pain Right Shoulder Pain Intensity (Out of 10): 3 Pain Intensity Range: 10 Comment: anterior Right Scapula Pain Intensity (Out of 10): 3 Pain Intensity Range: 10 Bilateral Neck Pain Intensity (Out of 10): 3 Pain Intensity Range: 10 - Objective POSTURE: rounded shoulders head foward,right scapular winging. PALPA TION: anterior shoulder. NUERO: denies parathesia/tinglin ,reflexes 2/3 C5-6-7,MYTOMES inact. AROM CERVICAL : flexion min ,extension/rotation/lateral flexion mod limited. AROM SHOULDER : flexion /abdu ction 150 degrees,ER 90 ,IR 75 degrees. with 1:1 G-H ratio,. CAPSULAR:mild tight. MMT: RTC 4/5,deltoid 4-/5,bicep/tricep 4/5 - Special Tests C/S Radiculapathy - Left Upper limb tension test: Negativ e C/S Radiculapathy - Right Upper limb tension test: Negative C/S Radiculapathy - Left Spurlings: Negative C/S Radiculapathy - Right Spurlings: Negative C/S Radiculapathy - Left Cervical distraction : Negative C/S Radiculapathy - Right Cervical distraction: Negative Vertebral Artery Test: Negative Cervical Sitting: Protrusion - Mechanical Response: No effect Cervical Sitting: Protrusion - Sympt oms During Testing: No effect Cervical Sitting: Protrusion - Symptoms After Testing: No effect Cervical Sitting: Retraction - Mechanical Response: No effect Cervical Sitting: Retraction - Symptoms Du ring Testing: Increases Cervical Sitting: Retraction - Symptoms After Testing: No worse Comments:: ERP R Shoulder Empty Can - SS: Negative R Shoulder Belly Press - SupScap: Negative R Shoulder Neer - Impingement: Negative R Shoulder Rainey Vinicius - Impingement: Negative - Goals Goal 1:: Independant with HEP. Goal Time Frame: 4-6 Weeks Goal 2:: Independant with posture for ADL'S Goal Time Frame: 4-6 Weeks Goal 3:: Decrease cervical and shoulder pain by 50% or greater to improve function and ADLS'S Goal Time Frame: 4-6 Weeks Goal 4:: Patient be able to perform ADLS' and houswork activ ities with min limitations. Goal Time Frame: 4-6 Weeks Goal 5:: pATIENT TO BE D/C TO prophalaxis Goal Time Frame: 4-6 Weeks - Rehabilitation Potential Physical Therapy Diagnosis: This is patient h as history of cervical pain and shoulder pain which with positive response with cervical traction impairs finction and ADL'S thus will benifit from skilled PT Rehabilitation Potential: Good - Antic ipated Interventions Patient/Client Instruction: Educate patient on: Condition, Plan of Care For the Purpose of:: To decrease pain, To increase ROM, To improve muscle performance and motor function, T o improve ability to perform ADL's, To increase tolerance to activity/condition/ position, To improve ability of physical actions for home/community/work/leisure, To improve health of tissue, To increa se flexibility/ROM, To improve ability to perform tasks related to life management Therapeutic Exercise to Include: Strength training, Body mechanics, Postural training, Flexibilty training, Active R OM For the Purpose of:: To decrease pain, To increase ROM, To improve nutrient delivery to tissue, To improve muscle performance and motor function, To increase tolerance to activity/condition/ positio n, To improve performance and independence with ADL's, To improve ability of physical actions for home/community/work/leisure, To decrease soft tissue restriction, To increase flexibility/ROM, To impr ove ability to perform tasks related to life management Manual Therapy Techniques to Include: Mobilization Comment: crvical traction For the Purpose of:: To decrease pain, To increase ROM, To improve health of tissue, To decrease soft tissue restriction, To increase flexibility/ROM, To improve safety, To improve ability to perform tasks related to life management IF ES: Yes Cryotherapy (ice pac k, ice massage): Yes Thermo therapy (hot pack): Yes Ultrasound (thermal/non thermal): Yes For the Purpose of:: To decrease pain, To increase ROM, To increase oxygenation perfusion, To increase ene ance to activity/condition/position, To improve health of tissue, To decrease soft tissue restriction Thank you for the opportunity to evaluate your patient. For Medicare and Medicare HMO plans, please review the plan of care and approve it. It will need to be FAXED BACK to us at [phone] for Medicare purposes. Please let me know if there are questions or concerns regarding this plan o f care. Physician Signature: Date: <Electronically signed by Domenic Ayala PT, Cert. MDT> 08/06/15 1016 CC: Enrike mauro DO Signed For Medicare only, by signing this I certify the plan of care. Physicians Signature Date 30-Jul-2015 Cerv Spine 4 or 5 Views Result: Comments: See Note; NOTES: [facility] Imaging Services [address] [place] [address] Verdana 4d Cerv Spine 4 or 5 Views MR#: [id number] Acct: [id number] Name: LUPE MCCARTHY Rep #: [id number] : 1945 F 70 From: Vu Hankins MD PCP: Enrike Jaimes DO Status: REG CLI Study: Cerv Spine 4 or 5 Views Date of Exam: 07/30/15 Exam# [id number] Ordering Dr: Szymanski DO STUDY: X-RAY - CERVICAL SPINE REASON FOR EXAM: Female, 70 years old. Neck pain extending into shoulder. TECHNIQUE: 6 view(s) of the cervical spine were obtained. COMPARISON: None ____ FINDINGS: There is diffuse osteopenia. Normal anterior atlantoaxial articulation. Normal odontoid process. Normal cervical lordosis. Normal vertebral bodies and end plates. There is intervertebral disc space narrowing at C4-5, C5-6 and C6-7 with osteophyte formation. There is bilateral neural foraminal encroachment at C5-6 and C6-7 bilaterally. There is uncovert ebral and facet joint sclerosis. There is marked carotid calcifications bilaterally. IMPRESSION: Diffuse osteopenia with moderate cervical spondylosis. Electr onically Signed: Vu Hankins MD at 17:12 EDT , Service support [phone], RAD/Cerv Spine 4 or 5 Views IMPRESSION: Diffuse oste openia with moderate cervical spondylosis. Electronically Signed: Vu Hankins MD at 17:12 EDT , Service support [phone], CC: Enrike Jaimes DO Sugar Cane Grower: Signed 30-Jul-2015 Shoulder min 2 Views Result: Comments: See Note; NOTES: [facility] Imaging Services [address] [place] [id number] Verdana 4d Shoulder min 2 Views MR#: [id number] Acct: [id number] Name: LUPE LOPEZ Rep #: [id number] : 1945 F 70 From: Vu Hankins MD PCP: Enrike Jaimes DO Status: REG CLI Study: Shoulder min 2 Views Date of Exam: 07/30/15 Exam# [id number] Ordering Dr: Enrike Jaimes DO STUDY: X-RAY - RIGHT SHOULDER REASON FOR EXAM: Female, 70 years old. Right shoulder pain. TECHNIQUE: 4 view(s) of the shoulder. COMPARISON: None. FINDIN GS: Normal glenohumeral articulation. Normal acromioclavicular joint. Normal acromion. Normal humeral head and visualized proximal humerus. The soft tissue structures are unremarkable. Normal vi sualized pulmonary apex. IMPRESSION: Normal x-ray examination of the shoulder. Electronically Signed: Vu Hankins MD at 17:12 EDT Tel , Service support [phone], RAD/Shoulder min 2 Views IMPRESSION: Normal x-ray examination of the shoulder. Electronically Signed: Vu Hankins MD 07/29 at 17:12 EDT , Service support [phone], CC: Enrike Jaimes DO [employer]ane Grower: Signed 02-Jul-2015 Chest PA and Lateral Result: Comments: See Note; NOTES: [facility] Imaging Services [address] [place] [address] Verdana 4d Chest PA and Lateral MR#: [id number] Acct: [id number] Name: LUPE LOPEZ Rep #: [id number] : 1945 F 70 From: Johnny Gilman MD PCP: Enrike Jaimes DO Status: REG CLI Study: Chest PA and Lateral Date of Exam: 07/02/15 Exam# [id number] Ordering Dr: Yamileth Jaimes DO STUDY: X-RAY CHEST REASON FOR EXAM: Female, 70 years old. Chest pain. Back pain. TECHNIQUE: PA and lateral views of the chest. COMPARISON: Comparison is made with prior examination yuval ed June 20, 2015 FINDINGS: Hyperinflation. The previously seen right upper lobe infiltrate has resolved. Scattered calcified granulomas. There is no demonstra benjamin pleural abnormality. Normal size heart. Normal mediastinum and iglesia. Normal visualized pulmonary arteries. There is atherosclerotic calcification of the aortic arch with tortuosity. There is demineralization of the osseous structures. Normal visualized ribs, clavicles, and shoulders. There is no demonstrated abnormality of the visualized soft tissue structures of the upper abdomen. ___ IMPRESSION: The previously seen right upper lobe infiltrate has resolved. No acute abnormality is seen at this time. Electronically Signed: Johnny Gilman MD at 11:24 EDT Tel [phone], Service support [phone], RAD/Chest PA and Lateral IMPRESSION: The previously seen right upper lobe infiltrate rome s resolved. No acute abnormality is seen at this time. Electronically Signed: Johnny Gilman MD at 11:24 EDT Tel [phone], Service support [phone], CC: Enrike Jaimes DO [employer] Cane Grower: Signed 02-Jul-2015 ELECTROCARDIOGRAM, COMPLETE (ECG) ([id number]) Comments: ekg showed normal sinus rhythym, normal axis, no acute st/t wave changes sinus maggie Result: [MEASUREMENTS ANALYSIS] Date of Test: 07/02/2015 10:18:39; Heart Rate: 56; CT Interval: 222; QRS: 100; QT Interval: 448; Corrected QT Interval (QTc): 441; P Wave [place]: 90; QRS Wave [place]: 6; T Wave [place]: 18; Blood Pressure: 156/64 [ECG DIAGNOSTIC STATEMENTS] Date of Test: 07/02/2015 10:18:39; Summary: Sinus Bradycardia -First degree A-V block Tessy = 222BORDERLINE RHYTHM 02-Jul-2015 Spirometry (77477) Comments: good effort and curve normal Result: 24-Jun-2015 Venous Duplex Lower Extremity Result: Comments: See Note; NOTES: [facility] Cardiovascular Services [address] [place] [address] Venous Duplex US - Ibrahima Extrem 06/24/15 1102 MR#: [id number] Acct: [id number] Name: LUPE LOPEZ Rep #: [id number] : 1945 70 From: Brice Murphy MD Attending Dr: Enrike Jaimes DO Status: REG CLI Ordering Dr: Enrike Jaimes DO Date: 06/24/15 Location: [facility] Sex: F C Admitted: Reason For Study: Pulmonary Embolism RIGHT LEFT GSV is normal. GSV is normal. CFV is compressible, spontaneous, phasic, CFV is compressible, spontaneous, phasic , competent and de monstrates normal competent, and demonstrates normal augmentation. augmentation. FV is compressible, spontaneous, phasic, FV is compressible, spontaneous, phasic, competent and demonstrates normal co mpetent and demonstrates normal augmentation. augmentation. POP V is compressible, spontaneous, phasic, POP V is compressible, spontaneous, phasic, competent and demonstrates normal competent and de monstrates normal augmentation. augmentation. PTV is compressible. T/P Trunk is compressible. RT PerV is compressible. PTV is compressible. Bright intraluminal echoes noted in Rt T/P LT PerV is comp ressible. Trunk consistent with chronic clot (very small area). Procedure Exam performed in department. A preliminary report was called and/or faxed to Dr. Jaimes. Interpretation Summary Chronic deep vein thrombosis is noted in the right tibio-peroneal trunk, which demonstrates bright intraluminal echogenicity. The remainder of the right lower extremity deep venous system is patent and comp ressible. Deep veins of the left lower extremity are patent and compressible segmentally. There is no evidence of left lower extremity deep vein thrombosis. Valvular competence appears intact within the proximal deep venous systems bilaterally. The greater saphenous veins appear bilaterally patent and compressible segmentally. Ordering Physician: Enrike Jaimes Referring Physician: Enrike Jaimes Performed By: Asia Rogers, STEVE, RVT 07:0 8 PM 06/24/15 1908 Date Brice Murphy MD CC: Enrike Jaimes DO Date Dictated: 06/24/15 1102 Date Transcribed: 06/24/15 1908 Sugar Cane Grower: Signed 20-Jun-2015 CTA Chest W/WO Contrast Result: Comments: See Note; NOTES: [facility] Imaging Services [address] [place] [address] Verdana 4d CTA Chest W/WO Contrast MR#: [id number] Acct: [id number] Name: LUPE MCCARTHY Rep #: [id number] : 1945 F 70 From: Johnny Gilman MD PCP: Enrike Jaimes DO Status: REG ER Study: CTA Chest W/WO Contrast Date of Exam: 06/20/15 Exam# [id number] Ordering Dr: Sonam Colon MD STUDY: CTA CHEST REASON FOR EXAM: Female, 70 years old. Chest pain. History of recent pulmonary embolism. RADIATION DOSAGE (If Supplied By Facility): CTDIvol = ( 26.16 ) mGy, D LP = ( 616.38 ) mGycm TECHNIQUE: The examination was performed with the intravenous administration of 100CC ml of Isovue 370 contrast material. Post-processing of the angiographic images was perfor med, with multiplanar reformation and 3D reconstruction. Individualized dose optimization techniques were used for this CT. COMPARISON: Comparison is made with prior study dated June 13, 2015. __ FINDINGS: The previously seen intraluminal filling defects in the right and left upper lobe pulmonary arterial branches are not seen at this time. Normal thoraci c aorta and visualized great vessels. There is no demonstrated aortic dissection. Normal heart and pericardium. Normal mediastinum. Mild enlargement of right hilar lymph node. Normal visualized trachea and bronchi. The lungs are well expanded. There now is evidence of focal infiltrate in the posterior aspect of the right upper lobe. This most likely represents a focal pneumonic infiltrate. Stable 3 mm noncalcified nodule in the peripheral anterior aspect of the right lower lobe. Stable lingular scarring. Normal pleura. Normal chest wall structures. There are degenerative changes o f thoracic spine. Is a small cyst in the medial aspect of the left kidney. IMPRESSION: New infiltrate in the posterior lateral aspect of the right upper lobe. The previously seen pulmonary emboli in the upper lobes are not seen at this time. Electronically Signed: Johnny Gilman MD at 15:25 EDT Tel [phone], Service support [phone], CC: Enrike Jaimes DO; Sonam Sheth MD Sugar Cane Grower: Signed 20-Jun-2015 Chest 1 View (Portable) Result: Comments: See Note; NOTES: [facility] Imaging Services [address] [place] [address] Verda 4d Chest 1 View (Portable) MR#: [id number] Acct: [id number] Name: LUPE MCCARTHY Rep #: [id number] : 1945 F 70 From: Johnny Gilman MD PCP: Enrike Jaimes DO Status: REG ER Study: Chest 1 View (Portable) Date of Exam: 06/20/15 Exam# [id number] Ordering Dr: Sonam Colon MD STUDY: X-RAY CHEST REASON FOR EXAM: Female, 70 years old. 2 day history of right-sided chest pain. TECHNIQUE: Single AP portable view of the chest. COMPARISON: Comparison is made with prior study dated June 13, 2015. FINDINGS: EKG electrodes are seen. There now is evidence of a focal infiltration in the right upper lobe. Followup is recommended. There is no demonstrated pleural abnormality. Normal size heart. Normal mediastinum and iglesia. Normal visualized pulmonary arteries. There is atherosclerotic calcification of the aorti c arch with tortuosity. Normal visualized thoracic spine. Normal visualized ribs, clavicles, and shoulders. There is no demonstrated abnormality of the visualized soft tissue structures of the up per abdomen. IMPRESSION: Focal infiltration in the right upper lobe. Electronically Signed: Johnny Gilman MD at 13:07 EDT Tel [phone], Se rvice support [phone], RAD/Chest 1 View (Portable) IMPRESSION: Focal infiltration in the right upper lobe. Electronically Signed: Johnny Gilman MD at 13:07 EDT Tel [phone], Service support [phone], CC: Enrike Jaimes DO; Sonam Sheth MD Sugar Cane Grower: Signed 20-Jun-2015 ELECTROCARDIOGRAM, COMPLETE (ECG) ([id number]) Result: [MEASUREMENTS ANALYSIS] Date of Test: 06/20/2015 10:36:19; Heart Rate: 61; CT Interval: 216; QRS: 100; QT Interval: 426; Corrected QT Interval (QTc): 427; P Wave [place]: 62; QRS Wave [place]: 8; T Wave [place]: 28; Blood Pressure: 160/62 [ECG DIAGNOSTIC STATEMENTS] Date of Test: 06/20/2015 10:36:19; Summary: Sinus Rhythm WITHIN NORMAL LIMITS 15-Jun-2015 Echocardiogram Complete Result: Comments: See Note; NOTES: [facility] Cardiovascular Services [address] [place] [id number] Echo Complete 06/12/15 1110 MR#: [id number] Acct: [id number] Name: LUPE PHILLIPS Rep #: [id number] : 1945 70 From: Mike Cota MD Attending Dr: Mike Cota MD Status: PRE CLI Ordering Dr: Mike Cota MD Date: 06/12/15 Location: [facility] Sex: F C Admit benjamin: Reason For Study: CAD/ASHD Procedure This was a 2D Doppler, Color Flow transthoracic echocardiogram. The exam was of adequate technical quality. Exam performed in department. PT did NOT take am HTN med, will take as soon as she gets home and monitor her BP this afternoon. Instructed to call [facility] if systolic BP does not return to her normal (130's). Left Ventricle Normal LV size. Left ventricular systolic function is normal. The estimated ejection fraction is 65 %. No regional wall motion abnormalities noted. Right Ventricle Normal RV size. Normal systolic function. Atria The left atrium is mildly enlarged. Normal right atrium. No doppler evidence for ASD. Mitral Valve There is mild mitral annular calcification. Normal mitral valve. Mild (1+) mitral valve insufficiency. Tricuspid Valve Normal tricuspid valve. Mild tricuspid valve insufficiency. Right ventricular systolic pressure estimated to be 35 mmHg. Aortic Valve Trisinus/trileaflet a ortic valve. Mild diffuse aortic valve thickening. Trivial aortic valve insufficiency. Pulmonic Valve The pulmonic valve is not well visualized. Great Vessels Normal sized aortic root. Pericardi um/Pleural No pericardial effusion. MMode/2D Measurements AND Calculations LVIDd: 4.6 cm IVSd: 1.1 cm Ao root diam: 3.0 cm LVIDs: 2.5 cm LVPWd: 0.91 cm RVDd: 3.3 cm FS: 44.9 % LAV(MOD-bp): 74.6 ml LA A4 area: 21.2 cm2 RA A4 area: 16.7 cm2 LAV(MOD-bp) Indexed: 41.5 ml/m2 LAV(MOD-sp2): 73.3 ml LAV(MOD-sp4): 68. 6 ml Doppler Measurements AND Calculations MV E max jose: 127.8 cm/sec Lat Peak E' Jose: 8.5 cm/sec Med Peak E' Jose: 11.2 cm/sec MV A max jose: 65.3 cm/sec E/E' lat: 15.0 E/E' med: 11.4 MV E/A: 2.0 Ao V2 max: 140.4 cm/sec LV V1 max: 100.8 cm/sec MR max jose: 515.7 cm/sec Ao max P.9 mmHg LV V1 max P.1 mmHg MR max P.4 mmHg Ao max PG (full): 3.8 mmHg PA V2 max: 86.2 cm/sec TR max jose: 273.4 cm/sec TR max P.1 mmH g Interpretation Summary Left ventricular systolic function is normal. The estimated ejection fraction is 65 %. The left atrium is mildly enlarged. There is mild mitral annular calcification. Mild (1+) mitral valve insufficiency. Mild tricuspid valve insufficiency. Mild diffuse aortic valve thickening. Trivial aortic valve insufficiency. Right ventricular systolic pressure estimated to be 35 mmHg. Transmitral diastolic flow velocities suggest diastolic dysfunction (pseudonormal pattern). ____ __ Ordering Physician: Mike Cota Referring Physician: Enrike Jaimes Performed By: Wendy López, RDCS, RVT 06/15/15 122 6 Date Mike Cota MD CC: Enrike Jaimes DO; Mike Cota MD Date Dictated: 06/12/15 1110 Date Transcribed: 06/15/15 1226 Sugar Cane Grower: Signed 13-Jun-2015 History and Physical Exam Result: Comments: See Note; NOTES: [facility] Medical Records Department [address] [place] [address] History and Physical 06/13/15 1251 MR#: [id number] Acct: [id number] Name: LUEP LOPEZ Rep #: [id number] : 1945 70 From: Jess Sparrow MD PCP: Enrike Jaimes DO Status: REG ER Y Location: ED History of Present Illness Date of Admission: 06/13/15 ief Complaint: Cough, right-sided chest pain. The patient is a 70 year old F with past medical history as mentioned above presented to the emergency room because of cough and right-sided chest pain. F ew days ago, she started having symptoms of upper respiratory tract infection with cough with white sputum, nasal congestion and malaise. For the last couple of days, she has been having right upper c hest pain, pressure -like pain, mainly on the right side of the chest, occasionally aggravated by coughing or deep breath, associated with mild shortness of breath and has been constant since yesterday . She denied left-sided chest pain, palpitation, syncope or presyncope. Couple of weeks ago, she had nuclear stress test which apparently has been abnormal, scheduled to go for cardiac catheterization on 06/26/2015. Today, she went to her PCPs office and she felt dizzy and lightheaded, EKG was done and she was very short of breath and she was sent to the emergency room. In the ER, she was dyspneic and short of breath, vital signs were stable, pulse oximeter was 100% on 2 L nasal cannula. Routine blood work is remarkable for chronic anemia and creatinine of 1.3. EKG showed normal sinus rhythm, n o acute ischemic changes. Chest x-ray showed no acute findings. CT angiography of the chest showed right upper lung PE. Past Medical History Past Medical History (Chronic Problems): Chronic Proble ms Hyperlipidemia (Chronic) Hypertension (Chronic) Paroxysmal atrial fibrillation (Chronic) Pulmonary embolism on right (Chronic) Allergies No Known Allergies Allergy (Verified 07/16/14 14:04) Home Medications: Ambulatory Orders Medication Instructions Recorded Amitriptyline HCl [Amitriptyline 20 mg PO DAILY 07/02/14 HCl] Amlodipine [Norvasc] 5 mg PO DAILY 07/02/14 Aspirin [ Aspirin, Baby] 81 mg PO DAILY@0800 07/02/14 Atorvastatin Calcium [Lipitor] 60 mg PO QHS 07/02/14 Azelastine HCl [Astelin] 2 spray NASAL DAILY 07/02/14 Calcium (Elemental) 500 mg PO BID 07/02/14 Carvedilol [Coreg] 12.5 mg PO BID 07/02/14 Cholecalciferol (VIT D3) [Vitamin 1,000 unit PO DAILY 07/02/14 D3] Dexlansoprazole [Dexilant] 60 mg PO DAILY 07/02/14 Fluticasone/Salmeterol [Advair 1 puff INHALATION BID 07/02/14 250/50 Mcg Diskus] Isosorbide Mononitrate [Imdur] 30 mg PO DAILY 07/02/14 Losartan/Hydrochlorothiazide 100 mg PO DAILY 07/02/14 [Losartan-Hctz 100-25 mg Tab] Mo ntelukast [Singulair] 10 mg PO DAILY 07/02/14 Ranitidine [Zantac] 300 mg PO DAILY 07/02/14 TraMADol [Ultram (G)] 50 mg PO Q6H PRN PRN 07/02/14 Meloxicam [Mobic] 15 mg PO DAILY 07/05/14 Multivit -Min/FA/Lycopene/Lut 1 tab PO DAILY 07/12/14 [Centrum Silver Tablet] Surgical History: - - Bilateral jaw surgery. 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 Denies: Edema, Heaviness, Light Headedness, Orthopnea, Palpitations, Paroxysmal Noc. Dyspnea, Syncope Res piratory: Reports: Cough, Shortness of breath upon exertion, Sputum production. Denies: Hemoptysis, Pleuritic Pain, Wheezing Gastrointestinal: Denies: Abdominal Pain, Constipation, Diarrhea, Nausea, V omiting Genitourinary: Denies: Dysuria, Frequency, Hematuria Musculoskeletal: Denies: Arm Pain, Back Pain, Foot Pain Skin: Denies: Dryness, Rash Neurological: Denies: Balance problems, Blurred visio n, Double vision, Change in Speech, Slurred speech, Confusion, Focal weakness, Headaches, Incoordination, Numbness Psychiatric: Denies: Anxiety, Depression Endocrine: Denies: Change in Body Habitus, Polydipsia VTE Information - Inpt Only VTE Present on Admission: No VTE Mechan Device Prophylaxis: None VTE Pharm Prophylaxis ordered?: No - Physical Exam General: Alert, Oriented x3, Cooperativ e HEENT: Atraumatic, PERRLA, EOMI Oral: Moist Mucosa, No Gingival or Mucosal Lesions/ Ulcerations Neck: Supple, No JVD, Negative Carotid Bruits, Thyroid Normal Size and Texture Lungs: Clear to auscu ltation, No rhonchi, No wheeze, No rales Cardiovascular: Regular rate, Regular Rhythm, Normal S1, Normal S2 Abdomen: Bowel Sounds Present, Soft, Non Tender, Non-Distended, No Hepato-splenomegaly Extr emities: No clubbing, No cyanosis, No edema Skin: No rashes, No breakdown Neurological: Neuro grossly intact Psych/Mental Status: Normal Affect, Appropriate Vital Signs Temp Pulse Resp BP Pulse O x 97.2 F 54 18 113/55 98 06/13/15 10:09 06/13/15 12:48 06/13/15 12:48 06/13/15 12:48 06/13/15 12:48 Oxygen Flow Rate 2 Oxygen Delivery Method Nasal Cannula Weight: 169 lb 15.622 oz Body Mass Index (BMI) 28.3 Laboratory Tests Past 24 Hrs 06/13/15 10:25 WBC 6.0 RBC 3.73 L Hgb 11.7 L Hct 34.8 L MCV 93.3 MCH 31.4 MCHC 33.6 RDW 12.8 RDW Differential 41.9 Plt Count 208 MPV 10.7 Immature Gran % (Auto) 0.200 Neut % (Auto) 51.1 Lymph % (Auto) 33.9 Barnes % (Auto) 11.5 H Eos % (Auto) 2.3 Baso % (Auto) 1.0 Absolute Neuts (auto) 3.1 Absolute Lymphs (auto) 2. 03 Total Counted Not Reportable PT 13.4 INR 1.0 Sodium 142 Potassium 3.6 Chloride 106 Carbon Dioxide 26.0 Anion Gap 10 BUN 25 H Creatinine 1.31 H Estim Creat Clear Calc 35.96 Est GFR (MDRD) Af Amer 52 L Est GFR (MDRD) Non-Af 43 L BUN/Creatinine Ratio 19.1 Glucose 104 Calcium 9.8 Total Creatine Kinase 69 CK-MB (CK-2) < 0.5 CK-MB (CK-2) Rel Index TNP Tropo ayden I < 0.02 B-Natriuretic Peptide 94.1 Assessment/Plan Active and Suspected Problems COPD (chronic obstructive pulmonary disease) (Acute) This is a 70 years old female patient admit benjamin because of right upper chest pain, cough and mild shortness of breath and she was found to have right upper lung PE. She had history of recent nuclear stress test and she is scheduled to go for ca rdiac catheterization on 2015. #1 pleuritic chest pain/right lung PE: She received 1 dose of subcu Lovenox in the ER, therapeutic dose. At this time, vital signs are stable, pulse ox is 98% on 2 L by nasal cannula. Plan: Admit to PCU, cardiac monitoring, serial cardiac enzymes because of recent abnormal stress test, start Zyrtec to twice a day, incentive spirometer, PT OT ventilation and treatment. #2 cough/acute bronchitis: Chest x-ray showed no acute findings. CT angiography of the chest showed no acute infiltrate. Plan: Incentive spirometer, testing for influenza types a and B, R obitussin when necessary. #3 chronic iron deficiency anemia: Admission hemoglobin stable, no evidence of active bleeding. She follows up with as outpatient and she is getting iron injections. At this time, stable, no indication for transfusion or iron injection. #4 mild dehydration: As indicated by slight elevated creatinine. Baseline creatinine is normal. Admission creatinine is 1.3. Pl an: IV fluids, repeat BMP tomorrow morning. #5 hypertension: Blood pressure stable, continue home medications. #6 hyperlipidemia: Continue statins. #7 COPD: Clinically stable, DuoNeb every 6 hours . #8 paroxysmal A. fib: At this time, she is in sinus rhythm. EKG reviewed. She never been on anticoagulation in the past. #9 DVT prophylaxis: Started on Xarelto. This note was generated with Dra ba dictation software. It may contain incorrect words, spelling, and punctuation that were not noted in checking the note before signing. 06/13/15 1300 <Electronically signed by Jess correa MD> Date Jess Sparrow MD Cosigner Signature (if applicable): Date CC: Enrike Jaimes DO; Jess Sparrow Signed 13-Jun-2015 Chest 1 View (Portable) Result: Comments: See Note; NOTES: [facility] Imaging Services [address] [place] [address] Verdana 4d Chest 1 View (Portable) MR#: [id number] Acct: [id number] Name: LUPE MCCARTHY Rep #: [id number] : 1945 F 70 From: Vu Hankins MD PCP: Enrike Jaimes DO Status: REG ER Study: Chest 1 View (Portable) Date of Exam: 06/13/15 Exam# [id number] Ordering Dr: Jessie Ogden MD STUDY: X-RAY CHEST REASON FOR EXAM: Female, 70 years old. Right- sided chest pain starting this morning. TECHNIQUE: Single frontal view of the chest. COMPARISON: None. FINDINGS: The lungs are mildly hyperexpanded and there are granulomatous calcifications. There is no demonstrated pleural abnormality. There is cardiomegaly. Normal mediast inum and iglesia. Normal visualized pulmonary arteries. There is aortic tortuosity with calcification. Normal visualized thoracic spine. Normal visualized ribs, clavicles, and shoulders. There is no demonstrated abnormality of the visualized soft tissue structures of the upper abdomen. IMPRESSION: Cardiomegaly with mild hyperexpansion. No acute or active c ardiopulmonary disease. Electronically Signed: Vu Hankins MD at 10:55 EDT , Service support [phone], RAD/Chest 1 View (Port able) IMPRESSION: Cardiomegaly with mild hyperexpansion. No acute or active cardiopulmonary disease. Electronically Signed: Vu Hankins MD at 10:55 EDT , Service sup port [phone], CC: Enrike Jaimes DO; Kane Ogden MD Sugar Cane Grower: Signed 13-Jun-2015 CTA Chest W/WO Contrast Result: Comments: See Note; NOTES: [facility] Imaging Services [address] [place] [address] Verdana 4d CTA Chest W/WO Contrast MR#: [id number] Acct: [id number] Name: LUPE MCCARTHY Rep #: [id number] : 1945 F 70 From: Johnny Gilman MD PCP: Enrike Jaimes DO Status: REG ER Study: CTA Chest W/WO Contrast Date of Exam: 06/13/15 Exam# [id number] Ordering Dr: Kane Lujan MD STUDY: CTA CHEST REASON FOR EXAM: Female, 70 years old. Right-sided chest pain. Cough. RADIATION DOSAGE (If Supplied By Facility): CTDIvol = ( 21.02 ) mGy, DLP = ( 606.33 ) mGy cm TECHNIQUE: The examination was performed with the intravenous administration of 75cc ml of Isovue 370 contrast material. Post-processing of the angiographic images was performed, with multiplanar reformation and 3D reconstruction. COMPARISON: Comparison is made with prior study dated October 23, 2014. FINDINGS: Filling defects are seen in the right uppe r lobe pulmonary arterial branches in keeping with the pulmonary embolism. Small intrarenal filling defects are also seen in the left upper lobe pulmonary branches. Normal thoracic aorta and visuali zed great vessels. There is no demonstrated aortic dissection. Normal heart and pericardium. Normal mediastinum. Slightly enlarged right hilar lymph node. Normal visualized trachea and bronchi. Hyperinflation. Stable 3 mm noncalcified nodule in the peripheral anterior aspect of the right lower lobe adjacent to the right major fissure. This is unchanged. Stable focal scarring in the lingula r segment of the left upper lobe as well as mild scarring at the lung bases. Normal pleura. Normal chest wall structures. There are degenerative changes of thoracic spine. Normal visualized upp er abdomen. IMPRESSION: Findings in keeping with the pulmonary emboli in the right and left upper lobe pulmonary arterial branches. N.B. : The above informatio n has been verbally conveyed by Johnny Gilman MD to [facility] ED RN, on 06/13/2015 12:08:48 (ET). Electronically Signed: Johnny Gilman MD at 12:08 EDT Tel [phone], Service support [phone], N.B. : The above information has been verbally conveyed by Johnny Gilman MD to [facility] ED RN, on 06/13/2015 12:08:48 (ET). CC: Favio Jaimes DO; Kane Ogden MD Sugar Cane Grower: Signed 13-Jun-2015 EKG ([id number]) Comments: nsr no acute chg Result: [MEASUREMENTS ANALYSIS] Date of Test: 06/13/2015 09:41:07; Heart Rate: 71; CT Interval: 194; QRS: 96; QT Interval: 420; Corrected QT Interval (QTc): 439; P Wave Lex[place]: 68; QRS Wave [place]: 2; T Wave [place]: 29; Blood Pressure: 140/70 [ECG DIAGNOSTIC STATEMENTS] Date of Test: 06/13/2015 09:41:07; Summary: Sinus Rhythm WITHIN NORMAL LIMITS 23-May-2015 Carotid Duplex Ultrasound Result: Comments: See Note; NOTES: [facility] Cardiovascular Services [address] [place] [address] Carotid Duplex Ultrasound 05/23/15813 MR#: [id number] Acct: [id number] Name: LUPE LOPEZ Rep #: [id number] : 1945 70 From: Brice Murphy MD Attending Dr: Enrike Jaimes DO Status: REG CLI Ordering Dr: Enrike Jaimes DO Date: 05/23/15 Location: CVS Sex: F C Adm itted: Reason For Study: carotid stenosis Rt. Velocities/BP Lt. Velocities/BP Prox CCA 100/24.6 cm/sec. Prox CCA 87.9/16.4 cm/sec. Mid CCA 92.0/25.2 cm/sec. Mid CCA 98.5/27.0 cm/sec. Dist CC A 79.2/20.5 cm/sec. Dist CCA 80.3/23.5 cm/sec. Prox ICA 52.8/19.3 cm/sec. Prox ICA 106/28.7 cm/sec. Mid ICA 107/35.2 cm/sec. Mid ICA 90.9/28.7 cm/sec. Dist ICA 96.6/34.8 cm/sec. Dist ICA 112/36.7 cm/ sec. Rt. ICA/CCA = 1.2. Lt. ICA/CCA = 1.1. Prox ECA 140/15.7 cm/sec. Prox ECA 87.9/7.62 cm/sec. Rt. Vert. 57.5/15.2 cm/sec. Lt. Vert. 69.1/18.9 cm/sec. Right Extracranial There is homogeneous, smo oth atherosclerotic plaque noted in the right common carotid artery. There is heterogeneous, irregular atherosclerotic plaque noted in the right internal carotid artery. There is heterogeneous, irreg ular atherosclerotic plaque noted in the right external carotid artery. Antegrade flow is noted in the right vertebral artery. Left Extracranial There is homogeneous, smooth atherosclerotic plaque n oted in the left common carotid artery. There is heterogeneous, irregular atherosclerotic plaque noted in the left internal carotid artery. There is heterogeneous, irregular atherosclerotic plaque n oted in the left external carotid artery. Antegrade flow is noted in the left vertebral artery. Procedure Carotid Duplex [id number]. The exam was diagnostic. Exam performed in department. Interpretatio n Summary Mild (<50%) stenosis right extracranial internal carotid. Mild (<50%) stenosis left extracranial internal carotid. Flow within the vertebral arteries is antegrade bilaterall y. There has been no significant change since a prior study on 05/03/2014. Ordering Physician: Enrike Jaimes Performed By: Rufino Ashley, RVT 05/23/15 2330 Date Brice Hoyt rn, MD CC: Enrike Jaimes DO Date Dictated: 05/23/1514 Date Transcribed: 05/23/15 233 Sugar Cane Grower: Signed 23-May-2015 Nuclear Stress Test - Treadmil Result: Comments: See Note; NOTES: [facility] Imaging Services [address] [place] [address] Verda 4d Nuclear Stress Test - Treadmil MR#: [id number] Acct: [id number] N ruel: LUPE LOPEZ Rep #: [id number] : 1945 70 From: Mike Cota MD Primary Care: Enrike Jaimes DO Status: REG CLI Ordering Dr: Enrike Jaimes DO Sex: F C DATE OF SERVICE: 05/23/2015 EX ERCISE TOLERANCE TEST: The patient exercised on a Merlin protocol for 6 minutes completing stage 2 achieving a peak heart rate of 193 beats per minute(128% predicted maximum heart rate) and a peak blo od pressure of 194/68 mmHg and a peak MET capacity of approximately 7 METs. The baseline ECG demonstrated normal sinus rhythm. The peak exercise ECG demonstrated approximately [address]-se gment depression in leads II, III, aVF with gradual resolution towards baseline in recovery. There was an occasional PAC and PVC during recovery. Irregular narrow complex tachycardia (peak heart ra te of approximately 190 beats per minute) with associated ST and T-wave changes (depression/inversion) during exercise with spontaneous resolution to sinus rhythm during exercise appearing compatible with an episode of paroxysmal atrial fibrillation. There was no complaint of chest discomfort during exercise or recovery. The examination was discontinued secondary to dyspnea. IMPRESSION: 1. T echnically adequate (percent predicted maximum heart rate greater than 85%) exercise tolerance test. 2. Peak exercise ECG with approximately [address]- segment depression in leads II, III, aVF with gradual resolution towards baseline in recovery. 3. Occasional PAC and PVC during recovery. 4. Irregular narrow complex tachycardia (peak heart rate of approximately 190 beats per minute) wi th associated ST and T-wave changes (depression/inversion) during exercise with spontaneous resolution to sinus rhythm during exercise appearing compatible with an episode of paroxysmal atrial fibrill ation. 5. Nuclear images pending. MYOCARDIAL PERFUSION IMAGING STUDY: TECHNIQUE: The patient was injected with 10.7 mCi of Tc99m Cardiolite and subsequently rest SPECT Cardiolite nuclear imaging was obtained in the horizontal long, vertical long and short axes views. The patient exercised on a Merlin protocol for 6 minutes completing stage 2, achieving a peak heart rate of 193 beats per minute , 128% predicted maximum heart rate) and a peak blood pressure of 194/68 mmHg and a peak MET capacity of 7 METs. The patient was injected with 31.4 mCi of Tc99m Cardiolite and subsequently stress SPEC T Cardiolite nuclear imaging was obtained in the horizontal long, vertical long and short axes views. A gated Cardiolite study at peak stress was obtained. INTERPRETATION: Rest and stress SPECT Car diolite nuclear imaging, status post realignment and normalization, demonstrates at rest significant extracardiac and gastrointestinal tracer uptake near the inferior and inferolateral segments. This is less prominent following stress. Otherwise, there appears to be relative uniform tracer uptake. There is notation of end systolic thickening and brightening. The gated Cardiolite study demonstrates myocardial thickening and inward wall motion. The reported LVEF is 72%. There are no myocardial perfusion changes considered diagnostic for stress-induced myocardial ischemia or previous myocardial injury/infarction. IMPRESSION: 1. Rest and stress SPECT Cardiolite nuclear imaging demonstrate relative uniform tracer uptake and myocardial perfusion appearing within normal limits. 2. The gated C ardiolite study reports an LVEF of 72%. Mike Cota MD T: [facility] JOB: [id number] 05/23/152009 <Electronically signed by Mike Cota MD> Date Mike Cota MD CC: Enrike Jaimes DO Date Dictated: 05/23/15 1023 Date Transcribed: 05/23/15 1023 Sugar Cane Grower: Signed 20-May-2015 ELECTROCARDIOGRAM, COMPLETE (ECG) ([id number]) Comments: ekg showed normal sinus rhythym, normal axis, no acute st/t wave changes Result: [MEASUREMENTS ANALYSIS] Date of Test: 05/20/2015 11:04:03; Heart Rate: 63; CT Interval: 210; QRS: 99; QT Interval: 408; Corrected QT Interval (QTc): 413; P Wave Lexington: 56; QRS Wave Lexington: 10; T Wave Lexington: 27; Blood Pressure: 152/76 [ECG DIAGNOSTIC STATEMENTS] Date of Test: 05/20/2015 11:04:03; Summary: Sinus Rhythm WITHIN NORMAL LIMITS 11-Apr-2015 12 Lead Electrocardiogram Result: Comments: See Note; NOTES: [facility] Cardiovascular Services [address] [place] [address] 12 Lead EKG 03/28/15 1548 MR#: [id number] Acct: [id number] Name: LUPE BOOGIE Rep #: [id number] : 1945 70 From: Mike Cota MD Attending Dr: Kane Spain DO Status: REG CLI Ordering Dr: Vu Lagos PA-C Date: 03/28/15 Location: LAB Sex: F C Admitted : Test Reason : PREOP Blood Pressure : / mmHG Vent. Rate : 062 BPM Atrial Rate : 062 BPM P-R Int : 194 ms QRS Dur : 094 ms QT Int : 402 ms P-R-T Axes : 083 003 029 degrees QTc Int : 4 08 ms Normal sinus rhythm Normal ECG Confirmed by CIPRIANO JC, MIKE ([id number]), editor & co founder TERRI DIOP ([id number]) on 04/11/2015 2:14:19 PM Referred By: CHRISTOPHER Confirmed By:MIKE COTA MD 04/11/15 141 4 Date Mike Cota MD CC: Enrike Jaimes DO Date Dictated: 03/28/15 1548 Date Transcribed: 03/28/15 1548 Sugar Cane Grower: Signed 25-Dec-2014 Pulmonary Function Report Comp Result: Comments: See Note; NOTES: [facility] Pulmonary Services/Neurology [address] [place] [address] Pulmonary Function Test (Comp) MR#: [id number] Acct: [id number] Name: LUPE PHILLIPS Rep #: [id number] : 1945 69 From: Merlin Pop MD Referring Dr: Merlin Pop MD Status: REG CLI Ordering Dr: Merlin Pop MD Date: 11/27/14 Location: [facility] Sex: F C DATE OF SERVICE: 11/27/2014 BRIEF HISTORY OF PRESENT ILLNESS: The patient is a 69-year-old female, currently under the care of myself, who presents for a complete pulmonary function test secondary to a diagnosis of chronic cough and lung nodule. The respiratory therapist reported good patient effort and reproducible results. INTERPRETATION: Forced expiration spirometry demonstrates a mild l arge airways obstructive ventilatory defect. There is no significant response to bronchodilators. Spirograms are of good quality and do not plateau indicating slowing emptying areas of the lung. The r espiratory flow volume loop shows decreased expiratory flow rates at high lung volumes consistent with small airways obstruction. Lung volumes by body plethysmography show all lung volumes within no rmal limits. Diffusion capacity by single breath carbon monoxide is at the lower limit of normal. Airway resistance is normal. No previous studies are available for comparison. IMPRESSION: Irreve rsible mild large airways obstructive ventilatory defect with preserved diffusion capacity and lung volumes. MERLIN POP MD T: [facility] JOB: [id number] . Date: 11/28/14 Tech.: Temp: PBar: Height(in.): Weight(lbs.): Diagnosis: Medication: : Dyspnea Rest: Dyspnea Exercise: Cough: Productive (cc): Persistent: Smoker: How Long (pk/yrs): Stopped (yrs): Cigarettes: Cigars: 1 1438 <Electronically signed by Merlin Pop MD> Date Merlin Pop MD CC: Merlin Pop MD; Enrike Jaimes DO Date Dictated: 11/03 Date Transcribed: 11/27/141628 Sugar Cane Grower: Signed 23-Oct-2014 PT Discharge Summary Result: Comments: See Note; NOTES: [facility] Physical Therapy [facility] [address] [place] [address]. [address] [place] [address] Fax REHABILITATION SERVICES DISCHARGE SUMMARY MR#: [id number] Acct: [id number] Name: LUPE LOPEZ Rep #: [id number] : 1945 69 From: Barbie Mcguire Referring DrBrooke: Enrike Jaimes DO Status: DIS RCR Eval Date: Dischar ge Date: 10/19/14 DATE OF SERVICE: Date of initial evaluation was September 26, 2014. Lupe Lopez is a 69-year-old female referred to physical therapy by Dr. Jaimes with medical diagnosis of bilatera l knee pain. The patient attended physical therapy for 7 visits. Subjectively, at this time, she feels a little bit better. The hardest part is getting up from the floor. She sees the MD in a few wee ks. Pain at its worst is 6/10, best is 2/10. OBJECTIVE: POSTURE: Forward head, rounded shoulders, increased kyphosis. GAIT: No deviation noted. PALPATION: Tender along medial joint line. FLEXIBILI TY: Hamstrings have a mild restriction. STRENGTH: Core strength/stabilization is fair. Hip strength is 4+/5 throughout. Knee flexion, extension 5/5, dorsiflexion and plantar flexion 5/5. BALANCE: The patient can single leg stance for approximately 5 seconds without loss of balance. Her LEFS score is 48/80 with a G code of 8979 CI, G8980 CJ. PT feels at this time the patient is making progress tow ards goal. She would like to be discharged and continue independent with a home exercise program with [employer]neakers. Barbie Mcguire DPT T: [facility] JOB: [id number] <Electronically signed by Monika Mcguire > 10/23/14 1021 CC: Signed 23-Oct-2014 Chest WITH Contrast Result: Comments: See Note; NOTES: [facility] Imaging Services [address] [place] [address] CAT Scan Report MR#: [id number] Acct: [id number] Name: LUPE LOPEZ Rep #: [id number] : 1945 F 69 From: Johnny Gilman MD PCP: Enrike Jaimes DO Status: REG CLI Study: Chest WITH Contrast Date of Exam: 10/23/14 Exam# [id number] Ordering Dr: Merlin Pop MD STUDY: CT CHEST WITH CONTRAST REASON FOR EXAM: Female, 69 years old. Chronic cough. RADIATION DOSAGE (If Supplied By Facility): CTDIvol = ( 12.86 ) mGy, DLP = ( 499.70 ) mGycm TECHNIQUE: High resolution t ransaxial imaging was performed following intravenous administration of 100mL ml of Isovue 300 contrast material. Multiplanar coronal and sagittal images were reformatted. COMPARISON: Comparison is made with prior examination dated April 17, 2014. FINDINGS: Hyperinflation. Stable 3 mm noncalcified nodule in the peripheral anterior aspect of the right lo wer lobe adjacent to the right major fissure there are the previously seen areas of groundglass appearance have almost completely cleared. Stable scarring is seen in the lateral anterior aspect of th e lingular segment of the left upper lobe. The previously seen nodular density in the medial aspect of the right lower lobe adjacent to the right cardiac shadow in the region of the right pulmonary ve ins, has decreased in size. It presently measures 1.1 cm. This most likely represents an area of scarring and volume loss. No new abnormality is seen. There is no demonstrated pleural abnormality. There are calcifications of the coronary arteries. Normal mediastinum. Normal hilar regions. Normal enhanced pulmonary arteries. There is atherosclerotic calcification of the aortic arch with tortuo sity and elongation of the aortic arch and descending thoracic aorta. There are multi-level degenerative changes of the thoracic spine. There is no demonstrated abnormality of the visualized upper a bdomen. IMPRESSION: Since prior study, the previously seen areas of groundglass appearance in the lower lobes has almost completely cleared. The previously seen density in the medial aspect of the right lower lobe has improved. Electronically Signed: Johnny Gilman MD at 14:28 EDT Tel [phone], Service support [phone], Fax CC: Merlin Pop MD; Enrike Jaimes DO Sugar Cane Grower: Signed 02-Oct-2014 Bilat Screvelia Digital AND CAD Result: Comments: See Note; NOTES: [facility] Imaging Services [address] [place] [address] Breast Imaging Report MR#: [id number] Acct: [id number] Name: LUPE LOPEZ Rep #: [id number] : 1945 F 69 From: Johnny Gilman MD PCP: Enrike Jaimes DO Status: REG CLI Study: Bilat Scrn Digital AND CAD Date of Exam: 10/02/14 Exam# [id number] Ordering Dr: Enrike Jaimes DO MAMMOGRAPHY - BILATERAL SCREENING REASON FOR EXAM: Female, 69 years old. Routine annual screening examination. PERTINENT HISTORY: Sister with breast cancer. TECHNIQUE: Digital examination. Medi olateral oblique (MLO) and craniocaudad (CC) views of both breasts were obtained. CAD: CAD was performed on this study. COMPARISON: Comparison is made with prior examination dated July 07, 2012. FINDINGS: Breast Composition: The breasts are heterogeneously dense, which may obscure small masses. There are no dominant masses or suspicious calcifications. No other significant abnormalities are identified. There has been no significant change since the prior study. IMPRESSION: Stable bilateral screening mammogram . Yearly follow-up recommended. (A) ASSESSMENT CATEGORY: BIRADS Category 1: Negative. A [facility] regarding these results [facility] days. Approximately 10% of breast cancers are not detected by mammography. A normal mammogram should not delay biopsy of a clinically suspicious abnormality. Electronically Signed: Isma Gilman MD at 12:54 EDT Tel [phone], Service support [phone], CC: Enrike Jaimes DO Sugar Cane Grower: Signed 27-Sep-2014 Inital Evaluation - PT Result: Comments: See Note; NOTES: [facility] Physical Therapy [facility] [place] [address] Fax REHABILITATION SERVICES INITIAL EVALUATION MR#: [id number] Acct: [id number] Name: LUPE LOPEZ Rep #: [id number] : 1945 69 From: Barbie Mcguire Referring DrBrooke: Enrike Jaimes DO Status: REG RCR Insurance: [employer] Eval Date: DATE OF SERVICE: 09/26/2014 REASON FOR EVALUATION: Lupe is a 69-year-old female referred to physical therapy by Dr. Jaimes with medical diagnosis of bilateral knee pain. SUBJECTIVE: The patient reports that she has had knee pain on and off for years. Pain at its worst is an 8/10, best is a 3/10, currently is 3- 4/10. Aggravated by going down stairs and s quatting. Eases are knee sleeve. No radiating pain, no numbness and tingling. The patient reports dull and achy most of the time, but sometimes it is sharp and shooting when she goes up and down stair s. She reports that she had x-rays, which showed that there was a kneecap issue. Sleep is disturbed. She is very active and watches her grandchildren throughout the week. 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 MEDICATIONS: The patient has a list if needed. Goals are to have less pain in knees and increase d movement. OBJECTIVE: POSTURE: Forward head, rounded shoulders, increased kyphosis. GAIT: Slightly antalgic with toes pointed out to the side and decreased stance time with short steps. PALPATION : Tender along the medial joint line bilaterally. RANGE OF MOTION: 0 degrees of extension to 125 degrees of flexion. SENSATION/REFLEXES: Intact. FLEXIBILITY: Hamstrings have a moderate restriction. STRENGTH: Core strength/stabilization is fair minus. Hip strength is 4-/5 throughout. Knee flexion, extension is 4+/5, dorsiflexion and plantar flexion is 5/5. BALANCE: The patient can weight shift; h owever, she is unable to single leg stance without upper extremity assistance. SPECIAL TESTS: Ascend and descend stairs reciprocally, but does report pain. LEFS score is 56/80 with a G code of 8978 CJ, G8979 CI. INITIAL TREATMENT EVALUATION: Educated the patient on diagnosis and plan of care. The patient is agreeable to plan of care. Instructed the patient on home exercise program, which incl uded importance of movement. ASSESSMENT: Lupe is a 69-year-old female referred to physical therapy with medical diagnosis of bilateral knee pain. The patient presents with hypomobility. The liz ent has decreased lower extremity strength, flexibility, muscular endurance, abnormal gait pattern, increased pain with stairs. The patient's rehab potential is fair. The patient will benefit from [facility] physical therapy to solve the following problems and meet the following goals. PROBLEM LIST: 1. Decreased knowledge of home exercise program. 2. Decreased strength. 3. Abnormal gait pattern. 4. Increased pain with stairs. GOALS: 1. The patient will be independent with home exercise program progression. 2. The patient will demonstrate 5/5 strength in lower extremity where deficit to ea se ADLs. 3. The patient will ambulate greater than 300 feet with a normalized gait pattern. 4. The patient will ascend and descend 8-inch stairs reciprocally with 1 handrail with 0/10 pain. PLAN O F CARE: The patient will be seen 3 times a week for 4 weeks. The patient will be educated on diagnosis and plan of care. The patient will be educated on home exercise program progression. Interventio ns to include therapeutic exercise, therapeutic activity, neuromuscular education, gait, manual modalities. The patient's discharge plan is independent with home exercise program and return to normali zed activities with decreased pain. Barbie Mcguire DPT T: FERNIE JOB: [id number] <Electronically signed by Barbie Mcguire > 09/27/14 0823 CC: Signed For Medicare only, by signing this I certify the plan of care. Physicians Signature Date 14-Jun-2014 Knee 4 or More Views Result: Comments: See Note; NOTES: [facility] Imaging Services [address] [place] [address] Radiology Report MR#: [id number] Acct: [id number] Name: LUPE LOPEZ Rep #: [id number] : 1945 F 69 From: Frank Sewell MD PCP: Enrike Jaimes DO Status: REG CLI Study: Knee 4 or More Views Date of Exam: 06/14/14 Exam# [id number] Ordering Dr: Enrike Jaimes DO STUDY: X-R AY - RIGHT KNEE REASON FOR EXAM: Female, 69 years old. Bilateral knee pain TECHNIQUE: 4 view(s) of the knee, obtained with weightbearing on AP and lateral. COMPARISON: None. FINDINGS: Normal visualized distal femur. Normal visualized proximal tibia and fibula. Normal proximal tibiofibular articulation. There is generalized osteopenia There is very mil d relative narrowing of the medial compartment joint space. Normal lateral femorotibial compartment. Normal patellofemoral articulation. The soft tissue structures are unremarkable. IMPRESSION: Narrowing of the medial compartment joint space right knee. Generalized osteopenia. Electronically Signed: Ming Sewell MD at 7:48 EDT Tel , Service support [phone], CC: Enrike Jaimes DO [employer]er: Signed 14-Jun-2014 Knee 4 or More Views Result: Comments: See Note; NOTES: [facility] Imaging Services [address] [place] [address] Radiology Report MR#: [id number] Acct: [id number] Name: LUPE LOPEZ Rep #: [id number] : 1945 F 69 From: Frank Sewell MD PCP: Enrike Jaimes DO Status: REG CLI Study: Knee 4 or More Views Date of Exam: 06/14/14 Exam# [id number] Ordering Dr: Enrike Jaimes DO STUDY: X-R AY - LEFT KNEE REASON FOR EXAM: Female, 69 years old. Bilateral knee pain TECHNIQUE: 4 view(s) of the knee, AP and lateral with weightbearing. COMPARISON: None. _ FINDINGS: Normal visualized distal femur. Normal visualized proximal tibia and fibula. Normal proximal tibiofibular articulation. There is generalized osteopenia. There appears to be slight rel ative narrowing of the medial compartment joint space seen on the AP weightbearing view. Normal lateral femorotibial compartment. Normal patellofemoral articulation. The soft tissue structures are u nremarkable. IMPRESSION: Mild relative narrowing of the medial compartment joint space left knee. Generalized osteopenia. Electronically Signed: Ming Carlos che, MD at 7:50 EDT Tel , Service support [phone], RAD/Knee 4 or More Views IMPRESSION: Mild relative narrowing of the medial co mpartment joint space left knee. Generalized osteopenia. Electronically Signed: iMng Sewell MD at 7:50 EDT Tel , Service support [phone], CC: Enrike Jaimes DO [employer]er: Signed 16-May-2014 Carotid Duplex Ultrasound Result: Comments: See Note; NOTES: [facility] Cardiovascular Services [address] [place] [address] 05/03/14 1014 MR#: [id number] Acct: [id number] Name: LUPE LOPEZ Rep #: [id number] : 1945 69 From: Brice Murphy MD Attending Dr: Enrike Jaimes DO Status: REG CLI Ordering Dr: Date: 05/16/14 Location: [facility] Sex: F C Admitted: Rt. Velocities/BP Lt. Velocities/BP Prox CCA 89.1/23.5 cm/sec. Prox CCA 103/28.1 cm/sec. Mid CCA 106/29.9 cm/sec. Mid CCA 113/34.6 cm/sec. Dist CCA 92.0/25.2 cm/sec. Dist CCA 100/30.5 cm/sec. Prox ICA 76.8/24.6 cm/sec. Prox ICA 89.1/ 29.3 cm/sec. Mid ICA 101/33.4 cm/sec. Mid ICA 108/38.1 cm/sec. Dist ICA 117/42.8 cm/sec. Dist ICA 125/47.1 cm/sec. Rt. ICA/CCA = 1.1. Lt. ICA/CCA = 1.1. Prox ECA 93.8/9.38 cm/sec. Prox ECA 87.4/ 9.38 cm/sec. Rt. Vert. 62.1/17.6 cm/sec. Lt. Vert. 87.2/ 25.1 cm/sec. Right Extracranial There is homogeneous, smooth atherosclerotic plaque noted in the right common carotid artery. There is hete rogeneous, irregular atherosclerotic plaque noted in the right internal carotid artery. There is heterogeneous, irregular atherosclerotic plaque noted in the right external carotid artery. Antegrade flow is noted in the right vertebral artery. Left Extracranial There is homogeneous, smooth atherosclerotic plaque noted in the left common carotid artery. There is heterogeneous, irregular athero sclerotic plaque noted in the left internal carotid artery. There is heterogeneous, irregular atherosclerotic plaque noted in the left external carotid artery. Antegrade flow is noted in the left ve rtebral artery. Procedure Carotid Duplex 15424. The exam was diagnostic. Exam performed in department. Interpretation Summary Mild (<50%) stenosis right extracranial internal carotid. Mild (<50%) stenosis left extracranial internal carotid. Flow within the vertebral arteries is antegrade bilaterally. ___ Ordering Physician: Enrike Jaimes D.O. Performed By: Rufino Ashley, RVT 05/03/14 1107 Date ____ Brice Murphy MD CC: Enrike Jaimes DO Date Dictated: 05/03/14 1014 Date Transcribed: 05/03/14 1107 [employer]ane [employer]er: Signed 23-Apr-2014 [facility] ([id number]) Comments: good effort and curve normal Result: 17-Apr-2014 Brain/Head W/WO Contrast Result: Comments: See Note; NOTES: [facility] Imaging Services [address] [place] [address] CAT Scan Report MR#: [id number] Acct: [id number] Name: LUPE LOPEZ Rep #: [id number] : 1945 F 69 From: Johnny Gilman MD PCP: Enrike Jaimes DO Status: REG CLI Study: Brain/Head W/WO Contrast Date of Exam: 04/17/14 Exam# [id number] Ordering Dr: Enrike Jaimes DO STUDY: CT BRAIN WITH AND WITHOUT CONTRAST REASON FOR EXAM: Female, 69 years old. Syncope. RADIATION DOSAGE (If Supplied By Facility): CTDIvol = ( 58 ) mGy, DLP = ( 1042 ) mGycm TECHNIQUE: Transaxial CT imaging of the brain was performed pre and post contrast administration. The examination was performed with intravenous administration of 100CC ml of Isovue 300 contrast material. COMPARISON: None. FINDINGS: Normal soft tissue structures. Normal calvarium. There is mild cerebral atrophy with widening of the extra- axial spaces and ventricular dilatation. T here are areas of decreased attenuation within the white matter tracts of the supratentorial brain, consistent with microvascular disease changes. Normal basal ganglia and thalami. Normal brainstem. Normal cerebellum. There is no intracranial hemorrhage. There are no findings of an acute ischemic infarction. There is calcification of the vertebral arteries as well as the cavernous portions of t he internal carotid arteries bilaterally. Prior maxillary surgery with screw fixation device. Mild mucosal thickening of the left maxillary sinus as well as thickening of the right sphenoid sinus. IMPRESSION: Chronic involutional changes of the brain. Status post sinus surgery with mucosal thickening of left maxillary sinus and right sphenoid sinus. Ebony ctronically Signed: Johnny Gilman MD at 15:01 EST Tel [phone], Service support [phone], CC: Enrike Jaimes DO [employer]er: Signed 17-Apr-2014 CTA Chest W/WO Contrast Result: Comments: See Note; NOTES: [facility] Imaging Services [address] [place] [address] CAT Scan Report MR#: [id number] Acct: [id number] Name: LUPE LOPEZ Rep #: [id number] : 1945 F 69 From: Johnny Gilman MD PCP: Enrike Jaimes DO Status: REG CLI Study: CTA Chest W/WO Contrast Date of Exam: 04/17/14 Exam# [id number] Ordering Dr: Enrike Jaimes DO STUDY: C TA CHEST REASON FOR EXAM: Female, 69 years old. Elevated d-dimer. RADIATION DOSAGE (If Supplied By Facility): CTDIvol = ( 17.85 ) mGy, DLP = ( 655.48 ) mGycm TECHNIQUE: The examination was perfor med with the intravenous administration of 100CC ml of Isovue 300 contrast material. Post-processing of the angiographic images was performed, with multiplanar reformation and 3D reconstruction. CO MPARISON: None. FINDINGS: Normal enhancement of the main pulmonary artery and right and left pulmonary arteries. Normal enhancement of the bilateral peripheral pulmonary arteries. There is no demonstrated pulmonary embolism. There is atherosclerotic calcification of the aortic arch with tortuosity. There is no demonstrated aortic dissection. There are c alcifications of the coronary arteries. Normal mediastinum. Normal hilar regions. Normal visualized trachea and bronchi. The lungs are well expanded. There are scattered areas of increased groundg lass appearance in the peripheral aspect of the right upper lobe as well as abutting the major fissure in the posterior aspect of the right upper lobe. Mild increased markings also seen along the dep endent portions of both lower lobes suggestive of a dependent bibasilar atelectasis. Mild increased groundglass appearance is also seen in the right infrahilar region. There is evidence of a 1.6 cm x 1.4 cm nodular density in the medial aspect of the right lower lobe adjacent to the right cardiac shadow in the region of the right pulmonary veins. This may represent a focal area of scarring. A rep eat CT scan in 4 months is recommended. Normal pleura. Normal chest wall structures. There are degenerative changes of thoracic spine. Normal visualized upper abdomen. IMPRESSION: There is no evidence of pulmonary embolism. Scattered areas of groundglass appearance in both lungs as described. This may represent early pneumonitis. 1.6 cm x 1.4 cm nod ular density in the medial aspect of right lower lobe as described. A four-month followup examination is recommended. Electronically Signed: Johnny Gilman MD at 14:38 EST Tel [phone], Service support [phone], CC: Enrike Jaimes DO [employer]er: Signed Immunization Name Dates Details Influenza vaccine, split, 3yrs &>, IM (FLUZONE) on: Nov-2017 Influenza, preserv. free, enhanced immunogncty, IM on: 14-Dec-2016 Comments: Site: LD Lot #: [id number] Pneumococcal conjugate vaccine, 13 valent, IM on: 22-Apr-2017 Comments: Site: LD Lot #: [id number] Family History Unknown Family Member Name Dates Details Brother 1 Comments: living with cad with cabg and has heart valve issues- at 70- heart issues Status: Active Father Comments: father in 60s from bone cancer Status: Active Mother Comments: in her 60s from ALS Status: Active Sister 1 Comments: in her early 70s from mi Status: Active Sister 2 Comments: - mva and had breast cancer- from the accident Status: Active Sister 3 Comments: alzheimers - in early 70s- 81- she quit eating Status: Active Social History Name Dates Details Caffeine Use Status: Active No Drug Use Status: Active Non Drinker/No Alcohol Use Status: Active Tobacco use: Former smoker. 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 Status: Active Smoking Status Name Dates Details Former smoker Vital Signs Date Test Result Details [id number] Temperature 97.6 f Comments: Method: Temporal Pulse 58 /min Comments: Pattern: Regular Respiration Rate 16 /min Comments: Pattern: Unlabored BP Systolic 132 mm[Hg] Comments: Patient Position: Sitting; Cuff Location: Left Arm; Cuff Size: Standard BP Diastolic 70 mm[Hg] Comments: Patient Position: Sitting; Cuff Location: Left Arm; Cuff Size: Standard Weight 151 lb Height 64.75 in Body Mass Index Calculated 25.32 kg/m2 Body Surface Area Calculated 1.75 m2 [id number] Pulse 72 /min Comments: Pattern: Regular BP Systolic 100 mm[Hg] Comments: Patient Position: Standing; Cuff Location: Left Arm; Cuff Size: Standard BP Diastolic 70 mm[Hg] Comments: Patient Position: Standing; Cuff Location: Left Arm; Cuff Size: Standard :32 Pulse 72 /min Comments: Pattern: Regular BP Systolic 110 mm[Hg] Comments: Patient Position: Sitting; Cuff Location: Left Arm; Cuff Size: Standard BP Diastolic 74 mm[Hg] Comments: Patient Position: Sitting; Cuff Location: Left Arm; Cuff Size: Standard :31 Temperature 97.8 f Comments: Method: Temporal Pulse 76 /min Comments: Pattern: Regular Respiration Rate 20 /min Comments: Pattern: Unlabored O2 SAT 98 % Comments: Room air BP Systolic 140 mm[Hg] Comments: Patient Position: Supine; Cuff Location: Left Arm; Cuff Size: Standard BP Diastolic 74 mm[Hg] Comments: Patient Position: Supine; Cuff Location: Left Arm; Cuff Size: Standard Weight 142 lb Height 64.75 in Body Mass Index Calculated 23.81 kg/m2 Body Surface Area Calculated 1.71 m2 :38 Temperature 97.6 f Comments: Method: Temporal Pulse 70 /min Comments: Pattern: Regular Respiration Rate 16 /min Comments: Pattern: Unlabored BP Systolic 134 mm[Hg] Comments: Patient Position: Sitting; Cuff Location: Left Arm; Cuff Size: Standard BP Diastolic 60 mm[Hg] Comments: Patient Position: Sitting; Cuff Location: Left Arm; Cuff Size: Standard Weight 149 lb Height 64.75 in Body Mass Index Calculated 24.99 kg/m2 Body Surface Area Calculated 1.74 m2 :42 Temperature 97.1 f Comments: Method: Temporal Pulse 68 /min Comments: Pattern: Regular Respiration Rate 16 /min Comments: Pattern: Unlabored BP Systolic 120 mm[Hg] Comments: Patient Position: Sitting; Cuff Location: Left Arm; Cuff Size: Standard BP Diastolic 60 mm[Hg] Comments: Patient Position: Sitting; Cuff Location: Left Arm; Cuff Size: Standard Weight 149 lb Height 64.75 in Body Mass Index Calculated 24.99 kg/m2 Body Surface Area Calculated 1.74 m2 :49 Temperature 97.3 f Comments: Method: Temporal Pulse 64 /min Comments: Pattern: Regular Respiration Rate 16 /min Comments: Pattern: Unlabored BP Systolic 140 mm[Hg] Comments: Patient Position: Sitting; Cuff Location: Left Arm; Cuff Size: Standard BP Diastolic 70 mm[Hg] Comments: Patient Position: Sitting; Cuff Location: Left Arm; Cuff Size: Standard Weight 149 lb Height 64.75 in Body Mass Index Calculated 24.99 kg/m2 Body Surface Area Calculated 1.74 m2 :03 Temperature 97.5 f Comments: Method: Temporal Pulse 53 /min Comments: Pattern: Regular Respiration Rate 16 /min Comments: Pattern: Unlabored BP Systolic 158 mm[Hg] Comments: Patient Position: Sitting; Cuff Location: Left Arm; Cuff Size: Standard BP Diastolic 62 mm[Hg] Comments: Patient Position: Sitting; Cuff Location: Left Arm; Cuff Size: Standard Weight 145 lb Height 64.75 in Body Mass Index Calculated 24.32 kg/m2 Body Surface Area Calculated 1.72 m2 :33 Temperature 97.8 f Comments: Method: Temporal Pulse 68 /min Comments: Pattern: Regular Respiration Rate 16 /min Comments: Pattern: Unlabored BP Systolic 120 mm[Hg] Comments: Patient Position: Sitting; Cuff Location: Left Arm; Cuff Size: Standard BP Diastolic 60 mm[Hg] Comments: Patient Position: Sitting; Cuff Location: Left Arm; Cuff Size: Standard Weight 137 lb Height 64.75 in Body Mass Index Calculated 22.97 kg/m2 Body Surface Area Calculated 1.68 m2 :06 Temperature 97.1 f Comments: Method: Temporal Pulse 60 /min Comments: Pattern: Regular Respiration Rate 16 /min Comments: Pattern: Unlabored O2 SAT 100 % Comments: Room air BP Systolic 148 mm[Hg] Comments: Patient Position: Sitting; Cuff Location: Left Arm; Cuff Size: Standard BP Diastolic 76 mm[Hg] Comments: Patient Position: Sitting; Cuff Location: Left Arm; Cuff Size: Standard Weight 144 lb Height 64.75 in Body Mass Index Calculated 24.15 kg/m2 Body Surface Area Calculated 1.72 m2 :29 Temperature 96.2 f Comments: Method: Temporal Pulse 52 /min Comments: Pattern: Regular Respiration Rate 16 /min Comments: Pattern: Unlabored BP Systolic 122 mm[Hg] Comments: Patient Position: Sitting; Cuff Location: Left Arm; Cuff Size: Standard BP Diastolic 60 mm[Hg] Comments: Patient Position: Sitting; Cuff Location: Left Arm; Cuff Size: Standard Weight 144 lb Height 64.75 in Body Mass Index Calculated 24.15 kg/m2 Body Surface Area Calculated 1.72 m2 [id number] Comments: recheck : 142/60 Temperature 97.9 f Comments: Method: Temporal Pulse 64 /min Comments: Pattern: Regular Respiration Rate 20 /min Comments: Pattern: Unlabored O2 SAT 98 % Comments: Room air BP Systolic 166 mm[Hg] Comments: Patient Position: Sitting; Cuff Location: Left Arm; Cuff Size: Standard BP Diastolic 80 mm[Hg] Comments: Patient Position: Sitting; Cuff Location: Left Arm; Cuff Size: Standard Weight 144 lb Height 64.75 in Body Mass Index Calculated 24.15 kg/m2 Body Surface Area Calculated 1.72 m2 :59 Temperature 97.9 f Comments: Method: Temporal Pulse 56 /min Comments: Pattern: Regular Respiration Rate 16 /min Comments: Pattern: Unlabored O2 SAT 97 % Comments: Room air BP Systolic 140 mm[Hg] Comments: Patient Position: Sitting; Cuff Location: Left Arm; Cuff Size: Standard BP Diastolic 64 mm[Hg] Comments: Patient Position: Sitting; Cuff Location: Left Arm; Cuff Size: Standard Weight 139 lb Height 64.75 in Body Mass Index Calculated 23.31 kg/m2 Body Surface Area Calculated 1.69 m2 :31 Temperature 97 f Comments: Method: Temporal Pulse 60 /min Comments: Pattern: Regular Respiration Rate 16 /min Comments: Pattern: Unlabored O2 SAT 98 % Comments: Room air BP Systolic 112 mm[Hg] Comments: Patient Position: Sitting; Cuff Location: Left Arm; Cuff Size: Standard BP Diastolic 52 mm[Hg] Comments: Patient Position: Sitting; Cuff Location: Left Arm; Cuff Size: Standard Weight 142 lb Height 64.75 in Body Mass Index Calculated 23.81 kg/m2 Body Surface Area Calculated 1.71 m2 :12 Temperature 96.8 f Comments: Method: Temporal Pulse 65 /min Comments: Pattern: Regular Respiration Rate 16 /min Comments: Pattern: Unlabored O2 SAT 97 % Comments: Room air BP Systolic 148 mm[Hg] Comments: Patient Position: Sitting; Cuff Location: Left Arm; Cuff Size: Standard BP Diastolic 74 mm[Hg] Comments: Patient Position: Sitting; Cuff Location: Left Arm; Cuff Size: Standard Weight 145 lb Height 64.75 in Body Mass Index Calculated 24.32 kg/m2 Body Surface Area Calculated 1.72 m2 :45 Temperature 96.6 f Comments: Method: Tympanic Pulse 60 /min Comments: Pattern: Regular Respiration Rate 18 /min Comments: Pattern: Unlabored O2 SAT 97 % Comments: Room air BP Systolic 118 mm[Hg] Comments: Patient Position: Sitting; Cuff Location: Left Arm; Cuff Size: Standard BP Diastolic 58 mm[Hg] Comments: Patient Position: Sitting; Cuff Location: Left Arm; Cuff Size: Standard Weight 147.5 lb Height 64.75 in Body Mass Index Calculated 24.73 kg/m2 Body Surface Area Calculated 1.73 m2 :56 Temperature 97.6 f Comments: Method: Temporal Pulse 64 /min Comments: Pattern: Regular Respiration Rate 20 /min Comments: Pattern: Unlabored O2 SAT 97 % Comments: Room air BP Systolic 140 mm[Hg] Comments: Patient Position: Sitting; Cuff Location: Left Arm; Cuff Size: Standard BP Diastolic 70 mm[Hg] Comments: Patient Position: Sitting; Cuff Location: Left Arm; Cuff Size: Standard Weight 146 lb Height 64.75 in Body Mass Index Calculated 24.48 kg/m2 Body Surface Area Calculated 1.73 m2 :19 Comments: feels afwbrile. therometer not work Pulse 55 /min Comments: Pattern: Regular Respiration Rate 16 /min O2 SAT 99 % Comments: Room air BP Systolic 132 mm[Hg] Comments: Patient Position: Sitting BP Diastolic 70 mm[Hg] Comments: Patient Position: Sitting :11 Temperature 96.6 f Comments: Method: Temporal Pulse 58 /min Comments: Pattern: Regular Respiration Rate 16 /min Comments: Pattern: Unlabored O2 SAT 99 % Comments: Room air BP Systolic 142 mm[Hg] Comments: Patient Position: Sitting; Cuff Location: Left Arm; Cuff Size: Standard BP Diastolic 64 mm[Hg] Comments: Patient Position: Sitting; Cuff Location: Left Arm; Cuff Size: Standard Weight 155 lb Height 64.75 in Body Mass Index Calculated 25.99 kg/m2 Body Surface Area Calculated 1.77 m2 :13 Temperature 96.9 f Comments: Method: Temporal Pulse 52 /min Comments: Pattern: Regular Respiration Rate 15 /min Comments: Pattern: Unlabored O2 SAT 95 % Comments: Room air BP Systolic 142 mm[Hg] Comments: Patient Position: Sitting; Cuff Location: Left Arm; Cuff Size: Standard BP Diastolic 70 mm[Hg] Comments: Patient Position: Sitting; Cuff Location: Left Arm; Cuff Size: Standard Weight 149 lb Height 64.75 in Body Mass Index Calculated 24.99 kg/m2 Body Surface Area Calculated 1.74 m2 :28 Temperature 97 f Comments: Method: Temporal Pulse 64 /min Comments: Pattern: Regular Respiration Rate 16 /min Comments: Pattern: Unlabored O2 SAT 97 % Comments: Room air BP Systolic 132 mm[Hg] Comments: Patient Position: Sitting; Cuff Location: Left Arm; Cuff Size: Standard BP Diastolic 62 mm[Hg] Comments: Patient Position: Sitting; Cuff Location: Left Arm; Cuff Size: Standard Weight 149 lb Height 64.75 in Body Mass Index Calculated 24.99 kg/m2 Body Surface Area Calculated 1.74 m2 :09 Temperature 96.8 f Comments: Method: Temporal Pulse 52 /min Comments: Pattern: Regular Respiration Rate 16 /min Comments: Pattern: Unlabored O2 SAT 96 % Comments: Room air BP Systolic 132 mm[Hg] Comments: Patient Position: Sitting; Cuff Location: Left Arm; Cuff Size: Standard BP Diastolic 64 mm[Hg] Comments: Patient Position: Sitting; Cuff Location: Left Arm; Cuff Size: Standard Weight 152 lb Height 64.75 in Body Mass Index Calculated 25.49 kg/m2 Body Surface Area Calculated 1.76 m2 :36 Temperature 97.6 f Comments: Method: Temporal Pulse 54 /min Comments: Pattern: Regular Respiration Rate 15 /min Comments: Pattern: Unlabored O2 SAT 98 % Comments: Room air BP Systolic 100 mm[Hg] Comments: Patient Position: Sitting; Cuff Location: Left Arm; Cuff Size: Standard BP Diastolic 54 mm[Hg] Comments: Patient Position: Sitting; Cuff Location: Left Arm; Cuff Size: Standard Weight 159 lb Height 64.75 in Body Mass Index Calculated 26.66 kg/m2 Body Surface Area Calculated 1.79 m2 :07 Temperature 97.2 f Comments: Method: Temporal Pulse 62 /min Comments: Pattern: Regular Respiration Rate 15 /min Comments: Pattern: Unlabored O2 SAT 96 % Comments: Room air BP Systolic 150 mm[Hg] Comments: Patient Position: Sitting; Cuff Location: Left Arm; Cuff Size: Standard BP Diastolic 82 mm[Hg] Comments: Patient Position: Sitting; Cuff Location: Left Arm; Cuff Size: Standard Weight 159 lb Height 64.75 in Body Mass Index Calculated 26.66 kg/m2 Body Surface Area Calculated 1.79 m2 :37 Temperature 97.2 f Comments: Method: Temporal Pulse 58 /min Comments: Pattern: Regular Respiration Rate 15 /min Comments: Pattern: Unlabored O2 SAT 99 % Comments: Room air BP Systolic 156 mm[Hg] Comments: Patient Position: Sitting; Cuff Location: Left Arm; Cuff Size: Standard BP Diastolic 64 mm[Hg] Comments: Patient Position: Sitting; Cuff Location: Left Arm; Cuff Size: Standard Weight 159 lb Height 64.5 in Body Mass Index Calculated 26.87 kg/m2 Body Surface Area Calculated 1.78 m2 :30 BP Systolic 160 mm[Hg] Comments: Patient Position: Sitting; Cuff Location: Left Arm; Cuff Size: Standard BP Diastolic 62 mm[Hg] Comments: Patient Position: Sitting; Cuff Location: Left Arm; Cuff Size: Standard :43 Temperature 97.6 f Comments: Method: Temporal Pulse 78 /min Comments: Pattern: Regular Respiration Rate 20 /min Comments: Pattern: Unlabored O2 SAT 98 % Comments: Room air BP Systolic 140 mm[Hg] Comments: Patient Position: Sitting; Cuff Location: Left Arm; Cuff Size: Standard BP Diastolic 80 mm[Hg] Comments: Patient Position: Sitting; Cuff Location: Left Arm; Cuff Size: Standard Weight 158 lb Height 64.5 in Body Mass Index Calculated 26.7 kg/m2 Body Surface Area Calculated 1.78 m2 :47 Temperature 97 f Comments: Method: Temporal Pulse 62 /min Comments: Pattern: Regular Respiration Rate 16 /min Comments: Pattern: Unlabored O2 SAT 99 % Comments: Room air BP Systolic 124 mm[Hg] Comments: Patient Position: Sitting; Cuff Location: Left Arm; Cuff Size: Standard BP Diastolic 82 mm[Hg] Comments: Patient Position: Sitting; Cuff Location: Left Arm; Cuff Size: Standard Weight 158 lb Height 64.5 in Body Mass Index Calculated 26.7 kg/m2 Body Surface Area Calculated 1.78 m2 :13 Temperature 97.7 f Comments: Method: Temporal Pulse 62 /min Comments: Pattern: Regular Respiration Rate 15 /min Comments: Pattern: Unlabored O2 SAT 96 % Comments: Room air BP Systolic 140 mm[Hg] Comments: Patient Position: Sitting; Cuff Location: Left Arm; Cuff Size: Standard BP Diastolic 70 mm[Hg] Comments: Patient Position: Sitting; Cuff Location: Left Arm; Cuff Size: Standard Weight 162 lb Height 64.5 in Body Mass Index Calculated 27.38 kg/m2 Body Surface Area Calculated 1.8 m2 :26 Temperature 97.2 f Comments: Method: Temporal Pulse 68 /min Comments: Pattern: Regular Respiration Rate 15 /min Comments: Pattern: Unlabored BP Systolic 152 mm[Hg] Comments: Patient Position: Sitting; Cuff Location: Left Arm; Cuff Size: Standard BP Diastolic 76 mm[Hg] Comments: Patient Position: Sitting; Cuff Location: Left Arm; Cuff Size: Standard Weight 162 lb Height 64.5 in Body Mass Index Calculated 27.38 kg/m2 Body Surface Area Calculated 1.8 m2 :12 Temperature 97.3 f Comments: Method: Temporal Pulse 73 /min Comments: Pattern: Regular Respiration Rate 16 /min Comments: Pattern: Unlabored O2 SAT 95 % Comments: Room air BP Systolic 142 mm[Hg] Comments: Patient Position: Sitting; Cuff Location: Left Arm; Cuff Size: Standard BP Diastolic 72 mm[Hg] Comments: Patient Position: Sitting; Cuff Location: Left Arm; Cuff Size: Standard Weight 164 lb Height 64.5 in Body Mass Index Calculated 27.72 kg/m2 Body Surface Area Calculated 1.81 m2 :17 Temperature 97.8 f Comments: Method: Temporal Pulse 61 /min Comments: Pattern: Regular Respiration Rate 17 /min Comments: Pattern: Unlabored BP Systolic 132 mm[Hg] Comments: Patient Position: Sitting; Cuff Location: Left Arm; Cuff Size: Standard BP Diastolic 74 mm[Hg] Comments: Patient Position: Sitting; Cuff Location: Left Arm; Cuff Size: Standard Weight 157 lb Height 64.5 in Body Mass Index Calculated 26.53 kg/m2 Body Surface Area Calculated 1.77 m2 :25 Temperature 97.1 f Comments: Method: Oral Pulse 68 /min Comments: Pattern: Regular Respiration Rate 16 /min Comments: Pattern: Unlabored BP Systolic 116 mm[Hg] Comments: Patient Position: Sitting; Cuff Location: Left Arm; Cuff Size: Standard BP Diastolic 62 mm[Hg] Comments: Patient Position: Sitting; Cuff Location: Left Arm; Cuff Size: Standard Weight 154 lb Height 64.5 in Body Mass Index Calculated 26.03 kg/m2 Body Surface Area Calculated 1.76 m2 :19 Temperature 96.7 f Pulse 60 /min Comments: Pattern: Regular Respiration Rate 16 /min Comments: Pattern: Unlabored BP Systolic 100 mm[Hg] Comments: Patient Position: Sitting; Cuff Location: Left Arm; Cuff Size: Standard BP Diastolic 60 mm[Hg] Comments: Patient Position: Sitting; Cuff Location: Left Arm; Cuff Size: Standard Weight 154 lb Height 64.5 in Body Mass Index Calculated 26.03 kg/m2 Body Surface Area Calculated 1.76 m2 :13 Temperature 97.2 f Pulse 72 /min Comments: Pattern: Regular Respiration Rate 16 /min Comments: Pattern: Unlabored BP Systolic 132 mm[Hg] Comments: Patient Position: Sitting; Cuff Location: Left Arm; Cuff Size: Standard BP Diastolic 76 mm[Hg] Comments: Patient Position: Sitting; Cuff Location: Left Arm; Cuff Size: Standard Weight 152 lb Height 64.5 in Body Mass Index Calculated 25.69 kg/m2 Body Surface Area Calculated 1.75 m2 :58 Temperature 97.7 f Pulse 52 /min Comments: Pattern: Regular Respiration Rate 16 /min Comments: Pattern: Unlabored BP Systolic 154 mm[Hg] Comments: Patient Position: Sitting; Cuff Location: Left Arm; Cuff Size: Standard BP Diastolic 84 mm[Hg] Comments: Patient Position: Sitting; Cuff Location: Left Arm; Cuff Size: Standard Weight 150 lb Height 64.5 in Body Mass Index Calculated 25.35 kg/m2 Body Surface Area Calculated 1.74 m2 :36 Comments: Orthoslaying 178/80 Pulse 78sitting 182/84 pulse 83standing 180/88 pulse 89 Temperature 99.2 f Pulse 84 /min Comments: Pattern: Regular Respiration Rate 16 /min Comments: Pattern: Unlabored BP Systolic 152 mm[Hg] Comments: Patient Position: Sitting; Cuff Location: Left Arm; Cuff Size: Large BP Diastolic 80 mm[Hg] Comments: Patient Position: Sitting; Cuff Location: Left Arm; Cuff Size: Large Weight 150 lb Height 64.5 in Body Mass Index Calculated 25.35 kg/m2 Body Surface Area Calculated 1.74 m2 Results Date Description Value Details [id number] CBC W/Diff, Automated Comments: [facility] [address] [place], [place], [id number] Absolute Lymph 1.48 {X10_3/ul} (Normal) Range: 0.83-4.51 Absolute Neut 2.0 {X10_3/uL} (Normal) Range: 2.0-7.7 IM GRAN % 0.000 % (Normal) Range: 0.0-0.9 Comments: IG% - Immature Granulocytes (promyelocytes, myelocytes andmetamyelocytes) > 1% indicates that a LEFT SHIFT is Present. BASO% 1.0 % (Normal) Range: 0-1 EO% 3.2 % (Normal) Range: 0-5 MONO% 9.2 % (Normal) Range: 0-10 LY% 36.8 % (Normal) Range: 19-41 NEUT% 49.8 % (Normal) Range: 47-70 MPV 10.2 fL (Normal) Range: 6.2-12.0 PLT 249 K/mm3 (Normal) Range: 150-450 RDW SD 48.1 fL (Abnormal) Range: 35.1-43.9 RDW CV 13.1 % (Normal) Range: 11.6-14.6 MCHC 30.5 {g/gl} (Abnormal) Range: 32-36 MCH 30.8 pg (Normal) Range: 27.0-32.0 MCV 100.8 fL (Abnormal) Range: 81-99 HCT 36.7 % (Abnormal) Range: 37-47 HGB 11.2 g/dL (Abnormal) Range: 12.0-15.0 RBC 3.64 {M/mm3} (Abnormal) Range: 4.2-5.4 WBC 4.0 K/mm3 (Abnormal) Range: 4.4-11.0 :15 Comprehensive Metabolic Profil Comments: [facility] [address] [place], [place], [id number] GAP 7 (Normal) Range: 5-15 CO2 29.0 mmol/L (Normal) Range: 21.0-32.0 CL 108 mmol/L (Abnormal) Range: 98-107 K 4.4 mmol/L (Normal) Range: 3.5-5.1 NA 144 mmol/L (Normal) Range: 136-145 T BILI 0.30 mg/dL (Normal) Range: 0.20-1.00 ALT 17 U/L (Normal) Range: 13-56 ALK P 40 U/L (Abnormal) Range: 45-117 AST 12 U/L (Abnormal) Range: 15-37 CA 9.2 mg/dL (Normal) Range: 8.5-10.1 A/G 1.1 {RATIO} (Normal) Range: 0.9-2.4 GLOB 3.4 g/dL (Normal) Range: 2.2-4.2 ALB 3.6 g/dL (Normal) Range: 3.2-5.0 T PROT 7.0 g/dL (Normal) Range: 6.4-8.2 BUN/CRE 20.3 {RATIO} (Abnormal) Range: 10-20 EST GFR - AA 55 mL/min (Abnormal) Comments: GFR Calc EST GFR 46 mL/min (Abnormal) Comments: Non- GFR Calc CREAT,SERUM 1.23 mg/dL (Abnormal) Range: 0.55-1.02 Comments: The validity of the calculated GFR AND GFRAA in patients over70 years has not been determined. Clinical correlation isessential. BUN 25 mg/dL (Abnormal) Range: 7-18 GLU 90 mg/dL (Normal) Range: 74-106 Comments: Please note revised GLUCOSE reference range zvbntxoaq53/02/2018. 37-Euk-89911:15 Hemoglobin A1c Comments: [facility] [address] [place], [place], [address] HGB A1C 5.5 % (Normal) Range: 4.2-6.3 :15 Lipid Profile Comments: [facility] [address] [place], [place], [id number] VLDL 16 mg/dL (Normal) Range: 5-40 LDL 87 mg/dL (Normal) Range: 0-130 HDL 80 mg/dL (Normal) Comments: The drugs N-Acetylcysteine and Metamizole may falselydepress this assay. Reference Range HDL <40 mg/dL Low HDL Cholesterol HDL >or= 60 mg/dL High HDL Cholesterol TRIG 82 mg/dL (Normal) Comments: The drugs N-Acetylcysteine and Metamizole may falselydepress this assay.Serum Triglycerides Reference Interval Normal <150 mg/dL Borderline high 150 - 199 mg/dL High 200 - 499 mg/dL Very High > or = 500 mg/dL CHOL 183 mg/dL (Normal) Comments: <200 mg/dL Desirable 200-240 mg/dL Borderline >240 mg/dL High Risk [id number]:15 Thyroid Stim Hormone (TSH) Comments: [facility] [address] [place], [place], [address] TSH 4.30 {uIU/mL} (Abnormal) Range: 0.358-3.74 1-Xmr-070133:25 Stool Occult Blood iFOB Comments: [facility] [address] [place], [place], [address] STOB See Note (Normal) Comments: Reason for Laboratory Test . STOB iFOBOccult Blood Negative [id number] CBC W/Diff, Automated Comments: Reason for Laboratory Test .[facility] [address] [place], [place], [id number] Absolute Lymph 1.23 {X10_3/ul} (Normal) Range: 0.83-4.51 Absolute Neut 1.8 {X10_3/uL} (Abnormal) Range: 2.0-7.7 IM GRAN % 0.000 % (Normal) Range: 0.0-0.9 Comments: IG% - Immature Granulocytes (promyelocytes, myelocytes andmetamyelocytes) > 1% indicates that a LEFT SHIFT is Present. BASO% 0.9 % (Normal) Range: 0-1 EO% 2.6 % (Normal) Range: 0-5 MONO% 9.9 % (Normal) Range: 0-10 LY% 35.8 % (Normal) Range: 19-41 NEUT% 50.8 % (Normal) Range: 47-70 MPV 10.1 fL (Normal) Range: 6.2-12.0 PLT 230 K/mm3 (Normal) Range: 150-450 RDW SD 46.3 fL (Abnormal) Range: 35.1-43.9 RDW CV 12.8 % (Normal) Range: 11.6-14.6 MCHC 31.3 {g/gl} (Abnormal) Range: 32-36 MCH 31.9 pg (Normal) Range: 27.0-32.0 MCV 101.8 fL (Abnormal) Range: 81-99 HCT 34.5 % (Abnormal) Range: 37-47 HGB 10.8 g/dL (Abnormal) Range: 12.0-15.0 RBC 3.39 {M/mm3} (Abnormal) Range: 4.2-5.4 WBC 3.4 K/mm3 (Abnormal) Range: 4.4-11.0 [id number]-[id number]:07 Comprehensive Metabolic Profil Comments: Reason for Laboratory Test .[facility] [address] [place], [place], [id number] GAP 7 (Normal) Range: 5-15 CO2 29.0 mmol/L (Normal) Range: 21.0-32.0 CL 106 mmol/L (Normal) Range: 98-107 K 3.9 mmol/L (Normal) Range: 3.5-5.1 NA 142 mmol/L (Normal) Range: 136-145 T BILI 0.40 mg/dL (Normal) Range: 0.20-1.00 ALT 14 U/L (Normal) Range: 13-56 ALK P 37 U/L (Abnormal) Range: 45-117 AST 15 U/L (Normal) Range: 15-37 CA 8.9 mg/dL (Normal) Range: 8.5-10.1 A/G 1.2 {RATIO} (Normal) Range: 0.9-2.4 GLOB 3.2 g/dL (Normal) Range: 2.2-4.2 ALB 3.8 g/dL (Normal) Range: 3.2-5.0 T PROT 7.0 g/dL (Normal) Range: 6.4-8.2 BUN/CRE 24.1 {RATIO} (Abnormal) Range: 10-20 Estimated CRCL 40.86 ml/min (Normal) EST GFR - AA 61 mL/min (Normal) Comments: GFR Calc EST GFR 51 mL/min (Abnormal) Comments: Non- GFR Calc CREAT,SERUM 1.12 mg/dL (Abnormal) Range: 0.55-1.02 Comments: The validity of the calculated GFR AND GFRAA in patients over70 years has not been determined. Clinical correlation isessential. BUN 27 mg/dL (Abnormal) Range: 7-18 GLU 88 mg/dL (Normal) Range: 74-106 Comments: Please note revised GLUCOSE reference range nunldoocu10/02/2018. 80-Yqz-132763:07 Ferritin Comments: Reason for Laboratory Test .[facility] [address] [place], [place], [address] FERRITIN 26 ng/mL (Normal) Range: 8-252 35-Ash-346621:07 Iron+Iron Binding Capacity Comments: Reason for Laboratory Test .[facility] [address] [place], [place], [address] IRON SATURATION 17.0 % (Normal) Range: 15.0-55.0 IRON 56 ug/dL (Normal) Range: 50-170 TIBC 329 ug/dL (Normal) Range: 250-450 92-Uoe-[id number]:47 CBC W/Diff, Automated Comments: [facility] [address] [place], [place], [id number] Absolute Lymph 1.23 {X10_3/ul} (Normal) Range: 0.83-4.51 Absolute Neut 3.1 {X10_3/uL} (Normal) Range: 2.0-7.7 IM GRAN % 0.000 % (Normal) Range: 0.0-0.9 Comments: IG% - Immature Granulocytes (promyelocytes, myelocytes andmetamyelocytes) > 1% indicates that a LEFT SHIFT is Present. BASO% 0.6 % (Normal) Range: 0-1 EO% 1.0 % (Normal) Range: 0-5 MONO% 8.2 % (Normal) Range: 0-10 LY% 25.7 % (Normal) Range: 19-41 NEUT% 64.5 % (Normal) Range: 47-70 MPV 10.2 fL (Normal) Range: 6.2-12.0 PLT 274 K/mm3 (Normal) Range: 150-450 RDW SD 42.2 fL (Normal) Range: 35.1-43.9 RDW CV 12.4 % (Normal) Range: 11.6-14.6 MCHC 33.0 {g/gl} (Normal) Range: 32-36 MCH 31.5 pg (Normal) Range: 27.0-32.0 MCV 95.5 fL (Normal) Range: 81-99 HCT 36.1 % (Abnormal) Range: 37-47 HGB 11.9 g/dL (Abnormal) Range: 12.0-15.0 RBC 3.78 {M/mm3} (Abnormal) Range: 4.2-5.4 WBC 4.8 K/mm3 (Normal) Range: 4.4-11.0 34-Omb-234985:47 Comprehensive Metabolic Profil Comments: [facility] [address] [place], [address] GAP 9 (Normal) Range: 5-15 CO2 25.0 mmol/L (Normal) Range: 21.0-32.0 CL 102 mmol/L (Normal) Range: 98-107 K 3.7 mmol/L (Normal) Range: 3.5-5.1 NA 136 mmol/L (Normal) Range: 136-145 T BILI 0.70 mg/dL (Normal) Range: 0.20-1.00 ALT 21 U/L (Normal) Range: 13-56 ALK P 39 U/L (Abnormal) Range: 45-117 AST 25 U/L (Normal) Range: 15-37 CA 9.2 mg/dL (Normal) Range: 8.5-10.1 A/G 1.2 {RATIO} (Normal) Range: 0.9-2.4 GLOB 3.5 g/dL (Normal) Range: 2.2-4.2 ALB 4.3 g/dL (Normal) Range: 3.2-5.0 T PROT 7.8 g/dL (Normal) Range: 6.4-8.2 BUN/CRE 19.2 {RATIO} (Normal) Range: 10-20 EST GFR - AA 42 mL/min (Abnormal) Comments: GFR Calc EST GFR 35 mL/min (Abnormal) Comments: Non- GFR Calc CREAT,SERUM 1.56 mg/dL (Abnormal) Range: 0.55-1.02 Comments: The validity of the calculated GFR AND GFRAA in patients over70 years has not been determined. Clinical correlation isessential. BUN 30 mg/dL (Abnormal) Range: 7-18 GLU 96 mg/dL (Normal) Range: 74-106 Comments: Please note revised GLUCOSE reference range dcjzyygtu45/02/2018. 99-Tht-202102:47 Hemoglobin A1c Comments: [facility] [address] [place], [id number] HGB A1C 5.5 % (Normal) Range: 4.2-6.3 91-Sdk-249178:47 Lipid Profile Comments: [facility] [address] [place], [address] VLDL 18 mg/dL (Normal) Range: 5-40 LDL 86 mg/dL (Normal) Range: 0-130 HDL 76 mg/dL (Normal) Comments: The drugs N-Acetylcysteine and Metamizole may falselydepress this assay. Reference Range HDL <40 mg/dL Low HDL Cholesterol HDL >or= 60 mg/dL High HDL Cholesterol TRIG 88 mg/dL (Normal) Comments: The drugs N-Acetylcysteine and Metamizole may falselydepress this assay.Serum Triglycerides Reference Interval Normal <150 mg/dL Borderline high 150 - 199 mg/dL High 200 - 499 mg/dL Very High > or = 500 mg/dL CHOL 180 mg/dL (Normal) Comments: <200 mg/dL Desirable 200-240 mg/dL Borderline >240 mg/dL High Risk [id number]-[id number]:47 Thyroid Stim Hormone (TSH) Comments: [facility] [address] [place], [id number] TSH 4.65 {uIU/mL} (Abnormal) Range: 0.358-3.74 10-Bsa-944319:32 Thyroid Stim Hormone (TSH) Comments: [facility] [address] [place], [place], [address] TSH 2.85 {uIU/mL} (Normal) Range: 0.358-3.74 48-Rul-12195:27 Microscopic Examination Comments: PATIENT WAS FASTINGPERFORMED BY: [facility] [address] [facility] [id number] Bacteria Few (Normal) Mucus Threads Present (Normal) Cast Type Hyaline casts (Normal) Casts Present {/lpf} (Abnormal) Epithelial Cells (non renal) 0-10 {/hpf} (Normal) Range: 0 - 10 RBC 0-2 {/hpf} (Normal) Range: 0 - 2 WBC 0-5 {/hpf} (Normal) Range: 0 - 5 :49 CBC W/Diff, Automated Comments: Reason for Laboratory Test [facility] [address] [place], [place], [address] Absolute Lymph 1.48 {X10_3/ul} (Normal) Range: 0.83-4.51 Absolute Neut 2.1 {X10_3/uL} (Normal) Range: 2.0-7.7 IM GRAN % 0.000 % (Normal) Range: 0.0-0.9 Comments: IG% - Immature Granulocytes (promyelocytes, myelocytes andmetamyelocytes) > 1% indicates that a LEFT SHIFT is Present. BASO% 1.0 % (Normal) Range: 0-1 EO% 2.7 % (Normal) Range: 0-5 MONO% 9.6 % (Normal) Range: 0-10 LY% 35.7 % (Normal) Range: 19-41 NEUT% 51.0 % (Normal) Range: 47-70 MPV 10.4 fL (Normal) Range: 6.2-12.0 PLT 233 K/mm3 (Normal) Range: 150-450 RDW SD 44.0 fL (Abnormal) Range: 35.1-43.9 RDW CV 12.4 % (Normal) Range: 11.6-14.6 MCHC 31.9 {g/gl} (Abnormal) Range: 32-36 MCH 31.6 pg (Normal) Range: 27.0-32.0 MCV 98.9 fL (Normal) Range: 81-99 HCT 37.3 % (Normal) Range: 37-47 HGB 11.9 g/dL (Abnormal) Range: 12.0-15.0 RBC 3.77 {M/mm3} (Abnormal) Range: 4.2-5.4 WBC 4.2 K/mm3 (Abnormal) Range: 4.4-11.0 20-Jul-20178:49 Comprehensive Metabolic Profil Comments: Reason for Laboratory Test [facility] [address] [place], [address] GAP 5 (Normal) Range: 5-15 CO2 31.0 mmol/L (Normal) Range: 21.0-32.0 CL 107 mmol/L (Normal) Range: 98-107 K 4.0 mmol/L (Normal) Range: 3.5-5.1 NA 143 mmol/L (Normal) Range: 136-145 T BILI 0.40 mg/dL (Normal) Range: 0.20-1.00 ALT 19 U/L (Normal) Range: 13-56 ALK P 54 U/L (Normal) Range: 45-117 AST 19 U/L (Normal) Range: 15-37 CA 9.2 mg/dL (Normal) Range: 8.5-10.1 A/G 1.2 {RATIO} (Normal) Range: 0.9-2.4 GLOB 3.3 g/dL (Normal) Range: 2.2-4.2 ALB 4.0 g/dL (Normal) Range: 3.2-5.0 T PROT 7.3 g/dL (Normal) Range: 6.4-8.2 BUN/CRE 22.3 {RATIO} (Abnormal) Range: 10-20 Estimated CRCL 37.82 ml/min (Normal) EST GFR - AA 56 mL/min (Abnormal) Comments: GFR Calc EST GFR 46 mL/min (Abnormal) Comments: Non- GFR Calc CREAT,SERUM 1.21 mg/dL (Abnormal) Range: 0.55-1.02 Comments: The validity of the calculated GFR AND GFRAA in patients over70 years has not been determined. Clinical correlation isessential. BUN 27 mg/dL (Abnormal) Range: 7-18 GLU 85 mg/dL (Normal) Range: 74-106 Comments: Please note revised GLUCOSE reference range dylzghsxc26/02/2018. 20-Jul-20178:49 Ferritin Comments: [facility] [address] [place], [address] FERRITIN 29 ng/mL (Normal) Range: 8-252 20-Jul-20178:49 Iron Comments: Reason for Laboratory Test [facility] [address] [place], [address] IRON 55 ug/dL (Normal) Range: 50-170 :32 Lipid Profile Comments: [facility] [address] [place], [place], [address] VLDL 18 mg/dL (Normal) Range: 5-40 LDL 101 mg/dL (Normal) Range: 0-130 HDL 80 mg/dL (Normal) Comments: The drugs N-Acetylcysteine and Metamizole may falselydepress this assay. Reference Range HDL <40 mg/dL Low HDL Cholesterol HDL >or= 60 mg/dL High HDL Cholesterol TRIG 92 mg/dL (Normal) Comments: The drugs N-Acetylcysteine and Metamizole may falselydepress this assay.Serum Triglycerides Reference Interval Normal <150 mg/dL Borderline high 150 - 199 mg/dL High 200 - 499 mg/dL Very High > or = 500 mg/dL CHOL 199 mg/dL (Normal) Comments: <200 mg/dL Desirable 200-240 mg/dL Borderline >240 mg/dL High Risk :32 Liver Profile Comments: [facility] [address] [place], [address] D BILI 0.09 mg/dL (Normal) Range: 0.00-0.30 T BILI 0.50 mg/dL (Normal) Range: 0.20-1.00 ALT 14 U/L (Normal) Range: 13-56 ALK P 55 U/L (Normal) Range: 45-117 AST 19 U/L (Normal) Range: 15-37 GLOB 3.0 g/dL (Normal) Range: 2.2-4.2 ALB 3.7 g/dL (Normal) Range: 3.2-5.0 T PROT 6.7 g/dL (Normal) Range: 6.4-8.2 :32 Thyroid Stim Hormone (TSH) Comments: [facility] [address] [place], [address] TSH 5.71 {uIU/mL} (Abnormal) Range: 0.358-3.74 :27 SED RATE ERYTHROCYTE (97796) Comments: PATIENT WAS FASTINGPERFORMED BY: [facility] [id number] Sedimentation Rate-Westergren 8 mm/h (Normal) Range: 0-40 :27 C-REACTIVE PROTEIN (49565) Comments: PATIENT WAS FASTINGPERFORMED BY: [facility] [facility] [id number] C-Reactive Protein, Quant 0.6 mg/L (Normal) Range: 0.0-4.9 :27 FOLIC ACID SERUM (00100) Comments: PATIENT WAS FASTINGPERFORMED BY: [facility] [facility] [id number] Folate (Folic Acid), Serum >20.0 ng/mL (Normal) Comments: A serum folate concentration of less than 3.1 ng/mL isconsidered to represent clinical deficiency. :27 VITAMIN B-12 (CYANOCOBALAMIN) Comments: PATIENT WAS FASTINGPERFORMED BY: [facility] [id number] ([id number]) Vitamin B12 681 pg/mL (Normal) Range: 232-1245 :27 TSH (THYROID STIMULATING Comments: PATIENT WAS FASTINGPERFORMED BY: [facility] [id number] HORMONE) (71164) TSH 6.650 {uIU/mL} (Abnormal) Range: 0.450-4.500 :27 LIPID PANEL (04168) Comments: PATIENT WAS FASTINGPERFORMED BY: [facility] [id number] LDL/HDL Ratio 1.4 {ratio} (Normal) Range: 0.0-3.2 Comments: LDL/HDL Ratio Men Women 1/2 Avg.Risk 1.0 1.5 Av g.Risk 3.6 3.2 2X Avg.Risk 6.2 5.0 3X Avg.Risk 8.0 6.1 LDL Cholesterol Calc 105 mg/dL (Abnormal) Range: 0-99 VLDL Cholesterol Tk 16 mg/dL (Normal) Range: 5-40 HDL Cholesterol 74 mg/dL (Normal) Triglycerides 82 mg/dL (Normal) Range: 0-149 Cholesterol, Total 195 mg/dL (Normal) Range: 100-199 :27 HGB A1C (00362) Comments: PATIENT WAS FASTINGPERFORMED BY: [facility] [id number] Hemoglobin A1c 5.6 % (Normal) Range: 4.8-5.6 Comments: . Pre-diabetes: 5.7 - 6.4 Diabetes: >6.4 Glycemic control for adults with diabetes: <7.0 :27 serum free light chains Comments: PATIENT WAS FASTINGPERFORMED BY: [facility] [facility] [id number] ([address]) [place]/Lambda Ratio,S 1.18 (Normal) Range: 0.26-1.65 Free Lambda Lt Chains,S 19.1 mg/L (Normal) Range: 5.7-26.3 Free [place] Lt Chains,S 22.5 mg/L (Abnormal) Range: 3.3-19.4 :27 urine immunofixation (47838) Comments: PATIENT WAS FASTINGPERFORMED BY: [facility] [facility] [id number] THEE Interpretation:U UPEIP (Normal) Comments: No monoclonality detected. :27 serum immunofixation (70504) Comments: PATIENT WAS FASTINGPERFORMED BY: [facility] [facility] [id number] Immunoglobulin M, Qn, Serum 68 mg/dL (Normal) Range: 26-217 Immunoglobulin A, Qn, Serum 111 mg/dL (Normal) Range: 64-422 Immunoglobulin G, Qn, Serum 669 mg/dL (Abnormal) Range: 700-1600 Immunofixation Result, Serum UPEIP (Normal) Comments: No monoclonality detected. :27 URINALYSIS, W/ MICRO (82592) Comments: PATIENT WAS FASTINGPERFORMED BY: [facility] [facility] [id number] Microscopic Examination See below: (Normal) Comments: Microscopic was indicated and was performed. Microscopic Examination MICRON (Normal) Comments: Microscopic follows if indicated. Nitrite, Urine Negative (Normal) Urobilinogen,Semi-Qn 0.2 mg/dL (Normal) Range: 0.2-1.0 Bilirubin Negative (Normal) Occult Blood Negative (Normal) Ketones Negative (Normal) Glucose Negative (Normal) Protein Negative (Normal) WBC Esterase Negative (Normal) Appearance Clear (Normal) Urine-Color Yellow (Normal) pH 6.0 (Normal) Range: 5.0-7.5 Specific [place] 1.019 (Normal) Range: 1.005-1.030 08-Ugy-70657:27 METABOLIC PANEL, COMPREHENSIVE Comments: PATIENT WAS FASTINGPERFORMED BY: [facility] [facility] [id number] (82891) ALT (SGPT) 12 [iU]/L (Normal) Range: 0-32 AST (SGOT) 20 [iU]/L (Normal) Range: 0-40 Alkaline Phosphatase 52 [iU]/L (Normal) Range: 39-117 Bilirubin, Total 0.4 mg/dL (Normal) Range: 0.0-1.2 A/G Ratio 1.9 (Normal) Range: 1.2-2.2 Globulin, Total 2.3 g/dL (Normal) Range: 1.5-4.5 Albumin 4.4 g/dL (Normal) Range: 3.5-4.8 Protein, Total 6.7 g/dL (Normal) Range: 6.0-8.5 Calcium 9.1 mg/dL (Normal) Range: 8.7-10.3 Carbon Dioxide, Total 26 mmol/L (Normal) Range: 18-29 Chloride 103 mmol/L (Normal) Range: 96-106 Potassium 4.8 mmol/L (Normal) Range: 3.5-5.2 Sodium 143 mmol/L (Normal) Range: 134-144 BUN/Creatinine Ratio 20 (Normal) Range: 12-28 eGFR If Africn Am 44 mL/min/1.73 (Abnormal) eGFR If NonAfricn Am 39 mL/min/1.73 (Abnormal) Creatinine 1.37 mg/dL (Abnormal) Range: 0.57-1.00 BUN 27 mg/dL (Normal) Range: 8-27 Glucose 91 mg/dL (Normal) Range: 65-99 [id number] CBC W/Diff, Automated Comments: Reason for Laboratory Test .[facility] [id number] [place], [place], [id number] Absolute Lymph 0.91 {X10_3/ul} (Normal) Range: 0.83-4.51 Absolute Neut 3.5 {X10_3/uL} (Normal) Range: 2.0-7.7 IM GRAN % 0.000 % (Normal) Range: 0.0-0.9 Comments: IG% - Immature Granulocytes (promyelocytes, myelocytes andmetamyelocytes) > 1% indicates that a LEFT SHIFT is Present. BASO% 0.8 % (Normal) Range: 0-1 EO% 1.4 % (Normal) Range: 0-5 MONO% 11.0 % (Abnormal) Range: 0-10 LY% 17.9 % (Abnormal) Range: 19-41 NEUT% 68.9 % (Normal) Range: 47-70 MPV 11.3 fL (Normal) Range: 6.2-12.0 PLT 248 K/mm3 (Normal) Range: 150-450 RDW SD 45.2 fL (Abnormal) Range: 35.1-43.9 RDW CV 13.1 % (Normal) Range: 11.6-14.6 MCHC 31.9 {g/gl} (Abnormal) Range: 32-36 MCH 31.1 pg (Normal) Range: 27.0-32.0 MCV 97.2 fL (Normal) Range: 81-99 HCT 38.5 % (Normal) Range: 37-47 HGB 12.3 g/dL (Normal) Range: 12.0-15.0 RBC 3.96 {M/mm3} (Abnormal) Range: 4.2-5.4 WBC 5.1 K/mm3 (Normal) Range: 4.4-11.0 3-Atj-506789:14 Comprehensive Metabolic Profil Comments: Reason for Laboratory Test .Is Patient Taking Vitamins or Folic Acid Supplements? [facility] [address] [place], [place], [id number] GAP 7 (Normal) Range: 5-15 CO2 30.0 mmol/L (Normal) Range: 21.0-32.0 CL 105 mmol/L (Normal) Range: 98-107 K 3.5 mmol/L (Normal) Range: 3.5-5.1 NA 142 mmol/L (Normal) Range: 136-145 T BILI 0.40 mg/dL (Normal) Range: 0.20-1.00 ALT 28 U/L (Normal) Range: 12-78 ALK P 56 U/L (Normal) Range: 45-117 AST 28 U/L (Normal) Range: 15-37 CA 9.3 mg/dL (Normal) Range: 8.5-10.1 A/G 1.2 {RATIO} (Normal) Range: 0.9-2.4 GLOB 3.4 g/dL (Normal) Range: 2.2-4.2 ALB 4.1 g/dL (Normal) Range: 3.4-5.0 Comments: Please note revised Albumin AND Globulin reference rangeeffective 2017. T PROT 7.5 g/dL (Normal) Range: 6.4-8.2 BUN/CRE 23.3 {RATIO} (Abnormal) Range: 10-20 Estimated CRCL 34.40 ml/min (Normal) EST GFR - AA 50 mL/min (Abnormal) Comments: GFR Calc EST GFR 42 mL/min (Abnormal) Comments: Non- GFR Calc CREAT,SERUM 1.33 mg/dL (Abnormal) Range: 0.55-1.02 Comments: The validity of the calculated GFR AND GFRAA in patients over70 years has not been determined. Clinical correlation isessential. BUN 31 mg/dL (Abnormal) Range: 7-18 GLU 100 mg/dL (Normal) Range: 70-110 [id number]-[id number]:14 Ferritin Comments: Reason for Laboratory Test .Is Patient Taking Vitamins or Folic Acid Supplements? [facility] [address] [place], [place], [id number] FERRITIN 42 ng/mL (Normal) Range: 8-252 [id number]-Woq-[id number]:14 Folates, (Folic Acid) Comments: Reason for Laboratory Test .Is Patient Taking Vitamins or Folic Acid Supplements? [facility] [address] [place], [address] FOLATES 82.80 ng/mL (Abnormal) Range: 3.1-55.4 Comments: Please note revised Folates reference range ipqntozgs24/14/2017. 6-Bag-[id number]:14 Iron+Iron Binding Capacity Comments: Reason for Laboratory Test .Is Patient Taking Vitamins or Folic Acid Supplements? [facility] [address] [place], [address] IRON SATURATION 10.7 % (Abnormal) Range: 15.0-55.0 IRON 36 ug/dL (Abnormal) Range: 50-170 TIBC 335 ug/dL (Normal) Range: 250-450 4-Mzj-909036:14 Vitamin B12 > 2000 pg/mL (Abnormal) Comments: Reason for Laboratory Test .[facility] [address] [place], [id number] Range: 211-911 46-Srq-548487:06 Stool Occult Blood iFOB Comments: [facility] [address] [place], [address] STOB See Note (Normal) Comments: Reason for Laboratory Test . STOB iFOBOccult Blood Negative 32-Voz-19265:18 CBC W/Diff, Automated Comments: [facility] [address] [place], [id number] Absolute Lymph 1.31 {X10_3/ul} (Normal) Range: 0.83-4.51 Absolute Neut 1.6 {X10_3/uL} (Abnormal) Range: 2.0-7.7 IM GRAN % 0.000 % (Normal) Range: 0.0-0.9 Comments: IG% - Immature Granulocytes (promyelocytes, myelocytes andmetamyelocytes) > 1% indicates that a LEFT SHIFT is Present. BASO% 1.2 % (Abnormal) Range: 0-1 EO% 3.5 % (Normal) Range: 0-5 MONO% 10.2 % (Abnormal) Range: 0-10 LY% 38.2 % (Normal) Range: 19-41 NEUT% 46.9 % (Abnormal) Range: 47-70 MPV 10.0 fL (Normal) Range: 6.2-12.0 PLT 272 K/mm3 (Normal) Range: 150-450 RDW SD 49.5 fL (Abnormal) Range: 35.1-43.9 RDW CV 13.7 % (Normal) Range: 11.6-14.6 MCHC 30.2 {g/gl} (Abnormal) Range: 32-36 MCH 29.9 pg (Normal) Range: 27.0-32.0 MCV 98.9 fL (Normal) Range: 81-99 HCT 34.4 % (Abnormal) Range: 37-47 HGB 10.4 g/dL (Abnormal) Range: 12.0-15.0 RBC 3.48 {M/mm3} (Abnormal) Range: 4.2-5.4 WBC 3.4 K/mm3 (Abnormal) Range: 4.4-11.0 71-Euu-37514:18 Comprehensive Metabolic Profil Comments: Is Patient Taking Vitamins or Folic Acid Supplements? [facility] [address] [place], [address] GAP 7 (Normal) Range: 5-15 CO2 28.0 mmol/L (Normal) Range: 21.0-32.0 CL 106 mmol/L (Normal) Range: 98-107 K 4.0 mmol/L (Normal) Range: 3.5-5.1 NA 141 mmol/L (Normal) Range: 136-145 T BILI 0.40 mg/dL (Normal) Range: 0.20-1.00 ALT 17 U/L (Normal) Range: 12-78 ALK P 46 U/L (Normal) Range: 45-117 AST 17 U/L (Normal) Range: 15-37 CA 8.7 mg/dL (Normal) Range: 8.5-10.1 A/G 1.1 {RATIO} (Normal) Range: 0.9-2.4 GLOB 3.5 g/dL (Normal) Range: 2.3-3.5 ALB 3.7 g/dL (Normal) Range: 3.4-5.0 T PROT 7.2 g/dL (Normal) Range: 6.4-8.2 BUN/CRE 24.3 {RATIO} (Abnormal) Range: 10-20 Estimated CRCL 46.90 ml/min (Normal) EST GFR - AA 71 mL/min (Normal) Comments: GFR Calc EST GFR 59 mL/min (Abnormal) Comments: Non- GFR Calc CREAT,SERUM 0.99 mg/dL (Normal) Range: 0.55-1.02 Comments: The validity of the calculated GFR AND GFRAA in patients over70 years has not been determined. Clinical correlation isessential. BUN 24 mg/dL (Abnormal) Range: 7-18 GLU 92 mg/dL (Normal) Range: 70-110 :18 Ferritin Comments: Is Patient Taking Vitamins or Folic Acid Supplements? [facility] [address] [place], [place], [id number] FERRITIN 16 ng/mL (Normal) Range: 8-252 :18 Folates, (Folic Acid) Comments: Is Patient Taking Vitamins or Folic Acid Supplements? [facility] [address] [place], [place], [id number] FOLATES 67.80 ng/mL (Abnormal) Range: 3.1-17.5 :18 Iron+Iron Binding Capacity Comments: Is Patient Taking Vitamins or Folic Acid Supplements? [facility] [address] [place], [place], [phone] IRON SATURATION 11.2 % (Abnormal) Range: 15.0-55.0 IRON 41 ug/dL (Abnormal) Range: 50-170 TIBC 367 ug/dL (Normal) Range: 250-450 :18 Vitamin B12 1297 pg/mL (Abnormal) Comments: [facility] [address] [place], [place], [id number] Range: 211-911 78-Fgm-331341:09 Urinalysis, Office (83741) UA - LEUKOCYTE ESTERASE Negative (Normal) UA - NITRITE Negative (Normal) URINE UROBILINGN DIPAK TIMED 2 mg/dL (Normal) UA - PROTEIN Negative mg/dL (Normal) UA - PH 6.0 (Normal) UA - BLOOD Hemolyzed Trace (Normal) UA - SPECIFIC GRAVITY 1.015 (Normal) UA - KETONES Negative mg/dL (Normal) UA - BILIRUBIN Negative (Normal) UA - GLUCOSE Negative (Normal) 28-Zgz-870283:09 Blood Glucose , Office (97379) Blood Glucose , Office 91 (Normal) 04-Igh-807072:09 HgA1C , Office (41473) HgA1C , Office 5.3 % (Normal) Range: 4.6 - 7.1 :01 CBC W/Diff, Automated Comments: [facility] [address] [place], [place], [id number] Absolute Lymph 0.96 {X10_3/ul} (Normal) Range: 0.83-4.51 Absolute Neut 3.6 {X10_3/uL} (Normal) Range: 2.0-7.7 IM GRAN % 0.000 % (Normal) Range: 0.0-0.9 Comments: IG% - Immature Granulocytes (promyelocytes, myelocytes andmetamyelocytes) > 1% indicates that a LEFT SHIFT is Present. BASO% 0.6 % (Normal) Range: 0-1 EO% 2.0 % (Normal) Range: 0-5 MONO% 7.6 % (Normal) Range: 0-10 LY% 19.1 % (Normal) Range: 19-41 NEUT% 70.7 % (Abnormal) Range: 47-70 MPV 10.3 fL (Normal) Range: 6.2-12.0 PLT 242 K/mm3 (Normal) Range: 150-450 RDW SD 49.7 fL (Abnormal) Range: 35.1-43.9 RDW CV 13.8 % (Normal) Range: 11.6-14.6 MCHC 31.3 {g/gl} (Abnormal) Range: 32-36 MCH 30.3 pg (Normal) Range: 27.0-32.0 MCV 97.0 fL (Normal) Range: 81-99 HCT 35.2 % (Abnormal) Range: 37-47 HGB 11.0 g/dL (Abnormal) Range: 12.0-15.0 RBC 3.63 {M/mm3} (Abnormal) Range: 4.2-5.4 WBC 5.0 K/mm3 (Normal) Range: 4.4-11.0 :01 Comprehensive Metabolic Profil Comments: [facility] [address] [place], [place], [address] GAP 12 (Normal) Range: 5-15 CO2 24.0 mmol/L (Normal) Range: 21.0-32.0 CL 103 mmol/L (Normal) Range: 98-107 K 3.8 mmol/L (Normal) Range: 3.5-5.1 NA 139 mmol/L (Normal) Range: 136-145 T BILI 0.30 mg/dL (Normal) Range: 0.20-1.00 ALT 25 U/L (Normal) Range: 12-78 ALK P 53 U/L (Normal) Range: 45-117 AST 23 U/L (Normal) Range: 15-37 CA 8.8 mg/dL (Normal) Range: 8.5-10.1 A/G 0.9 {RATIO} (Normal) Range: 0.9-2.4 GLOB 3.8 g/dL (Abnormal) Range: 2.3-3.5 ALB 3.6 g/dL (Normal) Range: 3.4-5.0 T PROT 7.4 g/dL (Normal) Range: 6.4-8.2 BUN/CRE 19.8 {RATIO} (Normal) Range: 10-20 EST GFR - AA 59 mL/min (Abnormal) Comments: GFR Calc EST GFR 49 mL/min (Abnormal) Comments: Non- GFR Calc CREAT,SERUM 1.16 mg/dL (Abnormal) Range: 0.55-1.02 Comments: The validity of the calculated GFR AND GFRAA in patients over70 years has not been determined. Clinical correlation isessential. BUN 23 mg/dL (Abnormal) Range: 7-18 GLU 90 mg/dL (Normal) Range: 70-110 :01 Hemoglobin A1c Comments: [facility] [address] [place], [place], [phone] HGB A1C 5.3 % (Normal) Range: 4.2-6.3 :01 THEE + Protein Elect, Serum Comments: Is Patient Fasting? [facility] (refer to report for specific site)refer to report for address and phone number NOTE: Comment (Normal) Comments: Protein electrophoresis scan will follow via computer,mail, or in flight technician delivery. THEE RESULT,S Comment (Normal) Comments: No monoclonality detected. A/G RATIO 1.2 (Normal) Range: 0.7-1.7 GLOBULIN, TOTAL 3.1 g/dL (Normal) Range: 2.2-3.9 M-SPIKE g/dL (Normal) Comments: Not Observed GAMMA GLOBULIN 0.7 g/dL (Normal) Range: 0.4-1.8 BETA GLOBULIN 0.9 g/dL (Normal) Range: 0.7-1.3 BDDGJ-8-BMRR 1.0 g/dL (Normal) Range: 0.4-1.0 FAMNR-1-QNDG 0.5 g/dL (Abnormal) Range: 0.0-0.4 ALBUMIN 3.6 g/dL (Normal) Range: 2.9-4.4 IMMUNOGL M 70 mg/dL (Normal) Range: 26-217 IMMUNO A 114 mg/dL (Normal) Range: 64-422 IMMUNO G 679 mg/dL (Abnormal) Range: 700-1600 PROTEIN,TOTAL 6.7 g/dL (Normal) Range: 6.0-8.5 :01 Immunofixation Urine Comments: Is Patient Fasting? [facility] (refer to report for specific site)refer to report for address and phone number THEE Urine Comment (Normal) Comments: No monoclonality detected.Performed at: [facility] [address] [id number] Director: Samm Galvan PhD, Phone: [phone] 81-Jgp-09472:01 Lipid Profile Comments: [facility] [address] [facility]. [place], [place], [phone] VLDL 19 mg/dL (Normal) Range: 5-40 LDL 75 mg/dL (Normal) Range: 0-130 HDL 77 mg/dL (Normal) Comments: The drugs N-Acetylcysteine and Metamizole may falselydepress this assay. Reference Range HDL <40 mg/dL Low HDL Cholesterol HDL >or= 60 mg/dL High HDL Cholesterol TRIG 96 mg/dL (Normal) Comments: The drugs N-Acetylcysteine and Metamizole may falselydepress this assay.Serum Triglycerides Reference Interval Normal <150 mg/dL Borderline high 150 - 199 mg/dL High 200 - 499 mg/dL Very High > or = 500 mg/dL CHOL 171 mg/dL (Normal) Comments: <200 mg/dL Desirable 200-240 mg/dL Borderline >240 mg/dL High Risk :01 Thyroid Stim Hormone (TSH) Comments: [facility] [address] [place], [id number] TSH 4.87 {uIU/mL} (Abnormal) Range: 0.358-3.74 :01 Vitamin D,25 Hydroxy Comments: [facility] [address] [place], [id number] Vitamin D 25-OH 27.3 ng/mL (Normal) Comments: Vitamin D 25(OH) Status Range Deficiency <20 ng/mL (50nmol/L) Insuffciency 20 - 30 ng/mL (50 - 75 nmol/L) Sufficiency 30 - 100 ng/mL (75 - 250 nmol/L) Toxicity >100 ng/mL (>250 nmol/L) :54 CBC W/Diff, Automated Comments: [facility] [address] [place], [id number] Absolute Lymph 1.70 {X10_3/ul} (Normal) Range: 0.83-4.51 Absolute Neut 2.3 {X10_3/uL} (Normal) Range: 2.0-7.7 IM GRAN % 0.000 % (Normal) Range: 0.0-0.9 Comments: IG% - Immature Granulocytes (promyelocytes, myelocytes andmetamyelocytes) > 1% indicates that a LEFT SHIFT is Present. BASO% 1.1 % (Abnormal) Range: 0-1 EO% 2.9 % (Normal) Range: 0-5 MONO% 8.0 % (Normal) Range: 0-10 LY% 37.8 % (Normal) Range: 19-41 NEUT% 50.2 % (Normal) Range: 47-70 MPV 10.5 fL (Normal) Range: 6.2-12.0 PLT 249 K/mm3 (Normal) Range: 150-450 RDW SD 45.1 fL (Abnormal) Range: 35.1-43.9 RDW CV 13.4 % (Normal) Range: 11.6-14.6 MCHC 31.6 {g/gl} (Abnormal) Range: 32-36 MCH 30.6 pg (Normal) Range: 27.0-32.0 MCV 96.9 fL (Normal) Range: 81-99 HCT 34.2 % (Abnormal) Range: 37-47 HGB 10.8 g/dL (Abnormal) Range: 12.0-15.0 RBC 3.53 {M/mm3} (Abnormal) Range: 4.2-5.4 WBC 4.5 K/mm3 (Normal) Range: 4.4-11.0 :54 Comprehensive Metabolic Profil Comments: 'TROP' Serial specimen #1, #2, #3, or #4: [address] [place] [address] [address] [place], [address] GAP 8 (Normal) Range: 5-15 CO2 25.0 mmol/L (Normal) Range: 21.0-32.0 CL 108 mmol/L (Abnormal) Range: 98-107 K 3.8 mmol/L (Normal) Range: 3.5-5.1 NA 141 mmol/L (Normal) Range: 136-145 T BILI 0.30 mg/dL (Normal) Range: 0.20-1.00 ALT 18 U/L (Normal) Range: 12-78 ALK P 70 U/L (Normal) Range: 45-117 AST 17 U/L (Normal) Range: 15-37 CA 7.6 mg/dL (Abnormal) Range: 8.5-10.1 A/G 1.1 {RATIO} (Normal) Range: 0.9-2.4 GLOB 3.3 g/dL (Normal) Range: 2.3-3.5 ALB 3.6 g/dL (Normal) Range: 3.4-5.0 T PROT 6.9 g/dL (Normal) Range: 6.4-8.2 BUN/CRE 28.2 {RATIO} (Abnormal) Range: 10-20 EST GFR - AA 55 mL/min (Abnormal) Comments: GFR Calc EST GFR 45 mL/min (Abnormal) Comments: Non- GFR Calc CREAT,SERUM 1.24 mg/dL (Abnormal) Range: 0.55-1.02 Comments: The validity of the calculated GFR AND GFRAA in patients over70 years has not been determined. Clinical correlation isessential. BUN 35 mg/dL (Abnormal) Range: 7-18 GLU 91 mg/dL (Normal) Range: 70-110 :54 Hemoglobin A1c Comments: [facility] [address] [place], [address] HGB A1C 5.9 % (Normal) Range: 4.2-6.3 :54 Lipid Profile Comments: 'TROP' Serial specimen #1, #2, #3, or #4: [address] [place] [address] [place], [address] VLDL 31 mg/dL (Normal) Range: 5-40 LDL 67 mg/dL (Normal) Range: 0-130 HDL 66 mg/dL (Normal) Comments: The drugs N-Acetylcysteine and Metamizole may falsely deressthis assay. Reference Range HDL <40 mg/dL Low HDL Cholesterol HDL >or= 60 mg/dL High HDL Cholesterol TRIG 153 mg/dL (Normal) Comments: The drugs N-Acetylcysteine and Metamizole may falsely deressthis assay.Serum Triglycerides Reference Interval Normal <150 mg/dL Borderline high 150 - 199 mg/dL High 200 - 499 mg/dL Very High > or = 500 mg/dL CHOL 164 mg/dL (Normal) Comments: <200 mg/dL Desirable 200-240 mg/dL Borderline >240 mg/dL High Risk :54 Thyroid Stim Hormone (TSH) Comments: 'TROP' Serial specimen #1, #2, #3, or #4: [address] [place] [address] [address] [place], [address] TSH 4.73 {uIU/mL} (Abnormal) Range: 0.358-3.74 :54 Troponin-I Comments: 'TROP' Serial specimen #1, #2, #3, or #4: [address] [place] [address] [place], [address] TROPONIN-I < 0.02 ng/mL (Normal) Comments: TROPONIN-I EXPECTED VALUES <0.05 NEGATIVE 0.06 - 0.59 AT RISK OF UT > OR = 0.60 SUGGEST UT [id number]-Zig-076726:51 CBC W/Diff, Auto - EPLAB Comments: Order Date: 01/01/16Order Info: [id number] - *CBC w/Diff - oncology ONLYComments: DRAW AND HOLD SERUM TUBEOrder Date: 01/01/16Order Info: [id number] - *CBC w/Diff - oncology ONLYComments: DRAW AND HOLD SERUM Only TUBEAt [facility] Outpatient [facility] Medical Oncologypatients receive CBC w/auto Differential ONLY. Physicianwill place an order for a manual differential or Pathologistreview at his discretion. [facility] OUTPATIENT [facility]. [address] [place] [place] [address] [employer]ATIONAL [employer]ATIONS PROFESSOR: JOSE KOHLI DO PH:[phone] Date: 01/01/16Order Info: [id number] - *MISC - Miscellaneous Lab Test #1Comments: Test(s) Ordered by Physician:[facility] [address] [place], [address] Absolute Lymph 1.39 {X10_3/uL} (Normal) Range: 0.83-4.51 Absolute Neut 2.7 {X10_3/uL} (Normal) Range: 2.0-7.7 BASO% 1.6 % (Abnormal) Range: 0-1 EO% 3.7 % (Normal) Range: 0-5 MONO% 7.6 % (Normal) Range: 0-10 LY% 29.4 % (Normal) Range: 19-41 NEUT% 57.8 % (Normal) Range: 47-70 MPV 7.2 fL (Normal) Range: 6.2-12.0 PLT 246 K/mm3 (Normal) Range: 150-450 RDW 13.6 % (Normal) Range: 11.6-14.6 MCHC 32.8 g/dL (Normal) Range: 32-36 MCH 31.7 pg (Normal) Range: 27.0-32.0 MCV 96.6 fL (Normal) Range: 81-99 HCT 33.8 % (Abnormal) Range: 37-47 HGB 11.1 g/dL (Abnormal) Range: 12.0-15.0 RBC 3.51 {M/mm3} (Abnormal) Range: 4.2-5.4 WBC 4.7 K/mm3 (Normal) Range: 4.4-11.0 38-Jbh-211203:51 Comprehensive Metabolic Comments: Order Date: 01/01/16Order Info: [id number] - *CMP Complete Metabolic PanelOrder Info: [id number] - *Uric Acid BloodOrder Info: 2500-7 - *TIBCOrder Info: [id number] - *IronOrder Info: [id number] - *FerritinComments: Ashlyn Martin son:Order Info: [id number] - *LDH -LDH (Lactate Dehydrogenase)Order Date: 01/01/16Order Info: [id number] - *MISC - Miscellaneous Lab Test #1Comments: Test(s) Ordered by Physician:FOLATESSerial Specimen #1, # 2 or #3? 1Is Patient Taking Vitamins or Folic Acid Supplements? [facility] [address] [place], [address] GAP 2 (Abnormal) Range: 5-15 CO2 29.0 mmol/L (Normal) Range: 21.0-32.0 CL 109 mmol/L (Abnormal) Range: 98-107 K 3.8 mmol/L (Normal) Range: 3.5-5.1 NA 140 mmol/L (Normal) Range: 136-145 T BILI 0.50 mg/dL (Normal) Range: 0.20-1.00 ALT 18 U/L (Normal) Range: 12-78 ALK P 75 U/L (Normal) Range: 45-117 AST 20 U/L (Normal) Range: 15-37 CA 9.0 mg/dL (Normal) Range: 8.5-10.1 A/G 1.1 {RATIO} (Normal) Range: 0.9-2.4 GLOB 3.3 g/dL (Normal) Range: 2.3-3.5 ALB 3.7 g/dL (Normal) Range: 3.4-5.0 T PROT 7.0 g/dL (Normal) Range: 6.4-8.2 BUN/CRE 25.2 {RATIO} (Abnormal) Range: 10-20 Estimated CRCL 43.39 ml/min (Normal) EST GFR - AA 65 mL/min (Normal) Comments: GFR Calc EST GFR 54 mL/min (Abnormal) Comments: Non- GFR Calc CREAT,SERUM 1.07 mg/dL (Abnormal) Range: 0.55-1.02 Comments: The validity of the calculated GFR AND GFRAA in patients over70 years has not been determined. Clinical correlation isessential. BUN 27 mg/dL (Abnormal) Range: 7-18 GLU 89 mg/dL (Normal) Range: 70-110 85-Yeq-364340:51 Ferritin Comments: Order Date: 01/01/16Order Info: [id number] - *CMP Complete Metabolic PanelOrder Info: 4-1 - *Uric Acid BloodOrder Info: 2500-7 - *TIBCOrder Info: [id number] - *IronOrder Info: [id number] - *FerritinComments: Ashlyn son:Order Info: [id number] - *LDH -LDH (Lactate Dehydrogenase)Order Date: 01/01/16Order Info: [id number] - *MISC - Miscellaneous Lab Test #1Comments: Test(s) Ordered by Physician:FOLATESSerial Specimen #1, # 2 or #3? 1Is Patient Taking Vitamins or Folic Acid Supplements? [facility] [address] [place], [place], [id number] FERRITIN 14 ng/mL (Normal) Range: 8-252 58-Mhm-081401:51 Folates, (Folic Acid) Comments: Order Date: 01/01/16Order Info: [id number] - *CMP Complete Metabolic PanelOrder Info: 4-1 - *Uric Acid BloodOrder Info: 2500-7 - *TIBCOrder Info: [id number] - *IronOrder Info: [id number] - *FerritinComments: Ashlyn son:Order Info: 2532-0 - *LDH -LDH (Lactate Dehydrogenase)Order Date: 01/01/16Order Info: [id number] - *MISC - Miscellaneous Lab Test #1Comments: Test(s) Ordered by Physician:FOLATESSerial Specimen #1, # 2 or #3? 1Is Patient Taking Vitamins or Folic Acid Supplements? [facility] [address] [place], [address] FOLATES 72.40 ng/mL (Abnormal) Range: 3.1-17.5 23-Ggd-012391:51 Iron Comments: Order Date: 01/01/16Order Info: 0786-1 - *CMP Complete Metabolic PanelOrder Info: 3083-1 - *Uric Acid BloodOrder Info: 2500-7 - *TIBCOrder Info: 2498-4 - *IronOrder Info: 2276-4 - *FerritinComments: Ashlyn son:Order Info: 2532-0 - *LDH -LDH (Lactate Dehydrogenase)Order Date: 01/01/16Order Info: [id number] - *MISC - Miscellaneous Lab Test #1Comments: Test(s) Ordered by Physician:FOLATESSerial Specimen #1, # 2 or #3? 1Is Patient Taking Vitamins or Folic Acid Supplements? [facility] [address] [place], [place], [id number] IRON 40 ug/dL (Abnormal) Range: 50-170 73-Qhu-423422:51 Iron Binding Capacity,Total Comments: Order Date: 01/01/16Order Info: 86-1 - *CMP Complete Metabolic PanelOrder Info: 3083-03 - *Uric Acid BloodOrder Info: 2500-7 - *TIBCOrder Info: 2498-4 - *IronOrder Info: 2276-4 - *FerritinComments: Ashlyn son:Order Info: 2532-0 - *LDH -LDH (Lactate Dehydrogenase)Order Date: 01/01/16Order Info: 3-1 - *MISC - Miscellaneous Lab Test #1Comments: Test(s) Ordered by Physician:FOLATESSerial Specimen #1, # 2 or #3? 1Is Patient Taking Vitamins or Folic Acid Supplements? [facility] [address] [place], [place], [address] TIBC 354 ug/dL (Normal) Range: 250-450 70-Fwp-473863:51 LDH 199 U/L (Normal) Comments: Order Date: 01/01/16Order Info: 0786-1 - *CMP Complete Metabolic PanelOrder Info: 4-1 - *Uric Acid BloodOrder Info: 2500-7 - *TIBCOrder Info: 2498-4 - *IronOrder Info: 2276-4 - *FerritinComments: Ashlyn son:Order Info: 2532-0 - *LDH -LDH (Lactate Dehydrogenase)Order Date: 01/01/16Order Info: 0453-1 - *MISC - Miscellaneous Lab Test #1Comments: Test(s) Ordered by Physician:FOLATESSerial Specimen #1, # 2 or #3? 1Is Patient Taking Vitamins or Folic Acid Supplements? [facility] [address] [place], [address] Range: 84-246 14-Uqe-508715:51 Uric Acid Comments: Order Date: 01/01/16Order Info: 0786-1 - *CMP Complete Metabolic PanelOrder Info: 3084-1 - *Uric Acid BloodOrder Info: 2500-7 - *TIBCOrder Info: 2498-4 - *IronOrder Info: 2276-4 - *FerritinComments: Ashlyn son:Order Info: 2532-0 - *LDH -LDH (Lactate Dehydrogenase)Order Date: 01/01/16Order Info: 0453-1 - *MISC - Miscellaneous Lab Test #1Comments: Test(s) Ordered by Physician:FOLATESSerial Specimen #1, # 2 or #3? 1Is Patient Taking Vitamins or Folic Acid Supplements? [facility] [address] [place], [address] URIC 3.9 mg/dL (Normal) Range: 2.6-6.0 Comments: The drugs N-Acetylcysteine and Metamizole may falsely deressthis assay. [id number]-Gth-[id number]:51 Vitamin B12 809 pg/mL (Normal) Comments: Order Date: 01/01/16Order Info: 2132-9 - *B-12Order Date: 01/01/16Order Info: 0453-1 - *MISC - Miscellaneous Lab Test #1[facility] [address] [place], [address] Range: 211-911 45-Juu-810438:41 D-Dimer Quantitative (DVT/PE) Comments: Order Date: 06/15/16Order Info: 68655-7 - *DDIMQ - Fibrin Degrd Ultrsens Qual/SemiquanOrder Date: 06/15/16Order Info: 79131-1 - *DDIMQ - Fibrin Degrd Ultrsens Qual/[facility] [address] [place], [place], [id number] D-DIMER QUANT 0.28 {FEU/ug/m} (Normal) Range: 0.27-0.49 Comments: NORMAL D-Dimer level (<0.50) indicates no DVT or PE. 1-Hxx-390373:15 Thyroxine (T4) Free, Direct, S Comments: PATIENT NOT FASTINGPERFORMED BY: CB [facility] [id number] [facility] [id number] T4,Free(Direct) 1.22 ng/dL Range: 0.82-1.77 (Normal) Triiodothyronine,Free,Seru 2.2 pg/mL (Normal) Comments: PATIENT NOT FASTINGPERFORMED BY: CB [facility] [id number] [facility] [id number] 4:15 m Range: 2.0-4.4 Written Authorization WAR (Normal) Comments: PATIENT NOT FASTINGPERFORMED BY: CB [facility] [id number] [facility] [id number] 4:15 Comments: Written Authorization Received.Authorization received from MAO BENITEZ [id number] by Jyothi Boland [id number]-Bmx-494606:15 [facility] ([id number]) Comments: PATIENT NOT FASTINGPERFORMED BY: [facility] [id number] [facility] [id number] Please note: SPRCS (Normal) Comments: Protein electrophoresis scan will follow via computer, mail, orcourier delivery. A/G Ratio 1.3 (Normal) Range: 0.7-1.7 Globulin, Total 2.8 g/dL (Normal) Range: 2.2-3.9 M-Abhinav Not Observed g/dL (Normal) Gamma Globulin 0.8 g/dL (Normal) Range: 0.4-1.8 Beta Globulin 0.8 g/dL (Normal) Range: 0.7-1.3 Nyrue-5-Qvbttsij 0.9 g/dL (Normal) Range: 0.4-1.0 Ptdow-9-Gruamcwm 0.2 g/dL (Normal) Range: 0.0-0.4 Albumin 3.6 g/dL (Normal) Range: 2.9-4.4 Protein, Total, Serum 6.4 g/dL (Normal) Range: 6.0-8.5 6-Ysf-419210:15 UPEP ([id number]) Comments: PATIENT NOT FASTINGPERFORMED BY: Blink MessengerSaint [facility] Hospital at SussexCulkmp4296 [facility] [id number] Please note: SPRCS (Normal) Comments: Protein electrophoresis scan will follow via computer, mail, orcourier delivery. M-Abhinav, % Not Observed % (Normal) Gamma Globulin, U 39.7 % (Normal) Beta Globulin, U 30.6 % (Normal) Ojeht-1-Npmmcorr, U 6.8 % (Normal) Ydxrf-7-Bevjntfg, U 2.0 % (Normal) Albumin, U 21.0 % (Normal) Protein,Total,Urine 4.5 mg/dL (Normal) 2-Ugs-201853:15 TSH ([id number]) Comments: PATIENT NOT FASTINGPERFORMED BY: LabMooter MediaSaint Clare's Hospital at SussexZnvekj0526 [facility] [id number] TSH 7.400 {uIU/mL} (Abnormal) Range: 0.450-4.500 3-Epy-461368:15 CBC WITH MANUAL DIFF (32475) Comments: PATIENT NOT FASTINGPERFORMED BY: [place] [facility]6370 [facility] [id number] Immature Grans (Abs) 0.0 {x10E3/uL} (Normal) Range: 0.0-0.1 Immature Granulocytes 0 % (Normal) Baso (Absolute) 0.1 {x10E3/uL} (Normal) Range: 0.0-0.2 Eos (Absolute) 0.1 {x10E3/uL} (Normal) Range: 0.0-0.4 Monocytes(Absolute) 0.3 {x10E3/uL} (Normal) Range: 0.1-0.9 Lymphs (Absolute) 1.6 {x10E3/uL} (Normal) Range: 0.7-3.1 Neutrophils (Absolute) 2.4 {x10E3/uL} (Normal) Range: 1.4-7.0 Basos 1 % (Normal) Eos 3 % (Normal) Monocytes 7 % (Normal) Lymphs 36 % (Normal) Neutrophils 53 % (Normal) Platelets 277 {x10E3/uL} (Normal) Range: 150-379 RDW 14.8 % (Normal) Range: 12.3-15.4 MCHC 32.7 g/dL (Normal) Range: 31.5-35.7 MCH 29.9 pg (Normal) Range: 26.6-33.0 MCV 91 fL (Normal) Range: 79-97 Hematocrit 31.5 % (Abnormal) Range: 34.0-46.6 Hemoglobin 10.3 g/dL (Abnormal) Range: 11.1-15.9 RBC 3.45 {x10E6/uL} (Abnormal) Range: 3.77-5.28 WBC 4.5 {x10E3/uL} (Normal) Range: 3.4-10.8 8-Grg-018773:15 RETICULOCYTE COUNT (87451) Comments: PATIENT NOT FASTINGPERFORMED BY: Blink MessengerCarlsbad Medical CenterUhygnq4195 [facility] [id number] Reticulocyte Count 1.0 % (Normal) Range: 0.6-2.6 9-Srb-844422:15 LDH (LD) (LACTATE DEHYDROGENASE) Comments: PATIENT NOT FASTINGPERFORMED BY: Blink MessengerSaint Clare's Hospital at SussexLcebbd6840 [facility] [id number] (94235) LDH 185 [iU]/L (Normal) Range: 119-226 6-Pwv-588478:15 Iron Binding Capacity (TIBC) Comments: PATIENT NOT FASTINGPERFORMED BY: Blink MessengerSaint Clare's Hospital at SussexYutlbz4989 [facility] [id number] (27412) Iron Saturation 16 % (Normal) Range: 15-55 Iron, Serum 55 ug/dL (Normal) Range: 27-139 UIBC 281 ug/dL (Normal) Range: 118-369 Iron Bind.Cap.(TIBC) 336 ug/dL (Normal) Range: 250-450 8-Ueg-040474:15 Vitamin B-12 (cyanocobalamin) Comments: PATIENT NOT FASTINGPERFORMED BY: Blink MessengerSaint Clare's Hospital at SussexDcxfmq0051 [facility] [id number] (49053) Vitamin B12 979 pg/mL (Abnormal) Range: 211-946 1-Pls-099910:15 Folic Acid Serum (07866) Comments: PATIENT NOT FASTINGPERFORMED BY: LabAscension [facility] Hospital6370 [facility] [id number] Folate (Folic Acid), Serum >20.0 ng/mL (Normal) Comments: A serum folate concentration of less than 3.1 ng/mL isconsidered to represent clinical deficiency. 4-Gdx-488436:15 Ferritin (46658) Comments: PATIENT NOT FASTINGPERFORMED BY: LabCoSaint Clare's Hospital at SussexEnclhl9066 [facility] [id number] Ferritin, Serum 30 ng/mL (Normal) Range: 15-150 39-Knd-100432:05 CBC W/Diff, Automated Comments: [facility] [address] [place], [address] Absolute Lymph 1.49 {X10_3/ul} (Normal) Range: 0.83-4.51 Absolute Neut 2.6 {X10_3/uL} (Normal) Range: 2.0-7.7 IM GRAN % 0.000 % (Normal) Range: 0.0-0.9 Comments: IG% - Immature Granulocytes (promyelocytes, myelocytes andmetamyelocytes) > 1% indicates that a LEFT SHIFT is Present. BASO% 0.9 % (Normal) Range: 0-1 EO% 3.0 % (Normal) Range: 0-5 MONO% 8.4 % (Normal) Range: 0-10 LY% 32.2 % (Normal) Range: 19-41 NEUT% 55.5 % (Normal) Range: 47-70 MPV 10.6 fL (Normal) Range: 6.2-12.0 PLT 258 K/mm3 (Normal) Range: 150-450 RDW SD 49.4 fL (Abnormal) Range: 35.1-43.9 RDW CV 14.2 % (Normal) Range: 11.6-14.6 MCHC 31.2 {g/gl} (Abnormal) Range: 32-36 MCH 29.8 pg (Normal) Range: 27.0-32.0 MCV 95.7 fL (Normal) Range: 81-99 HCT 31.1 % (Abnormal) Range: 37-47 HGB 9.7 g/dL (Abnormal) Range: 12.0-15.0 RBC 3.25 {M/mm3} (Abnormal) Range: 4.2-5.4 WBC 4.6 K/mm3 (Normal) Range: 4.4-11.0 13-Sqg-477031:05 Comprehensive Metabolic Profil Comments: [facility] [address] [place], [place], [address] GAP 8 (Normal) Range: 5-15 CO2 28.0 mmol/L (Normal) Range: 21.0-32.0 CL 105 mmol/L (Normal) Range: 98-107 K 3.6 mmol/L (Normal) Range: 3.5-5.1 NA 141 mmol/L (Normal) Range: 136-145 T BILI 0.40 mg/dL (Normal) Range: 0.20-1.00 ALT 17 U/L (Normal) Range: 12-78 ALK P 63 U/L (Normal) Range: 45-117 AST 16 U/L (Normal) Range: 15-37 CA 9.0 mg/dL (Normal) Range: 8.5-10.1 A/G 1.2 {RATIO} (Normal) Range: 0.9-2.4 GLOB 2.9 g/dL (Normal) Range: 2.3-3.5 ALB 3.6 g/dL (Normal) Range: 3.4-5.0 T PROT 6.5 g/dL (Normal) Range: 6.4-8.2 BUN/CRE 30.2 {RATIO} (Abnormal) Range: 10-20 EST GFR - AA 66 mL/min (Normal) Comments: GFR Calc EST GFR 54 mL/min (Abnormal) Comments: Non- GFR Calc CREAT,SERUM 1.06 mg/dL (Abnormal) Range: 0.55-1.02 Comments: The validity of the calculated GFR AND GFRAA in patients over70 years has not been determined. Clinical correlation isessential. BUN 32 mg/dL (Abnormal) Range: 7-18 GLU 86 mg/dL (Normal) Range: 70-110 92-Prr-040725:05 Hemoglobin A1c Comments: [facility] [address], [address] HGB A1C 5.2 % (Normal) Range: 4.2-6.3 88-Wth-502379:05 Lipid Profile Comments: [facility] [address] [place], [address] VLDL 22 mg/dL (Normal) Range: 5-40 LDL 83 mg/dL (Normal) Range: 0-130 HDL 64 mg/dL (Normal) Comments: The drugs N-Acetylcysteine and Metamizole may falsely deressthis assay. Reference Range HDL <40 mg/dL Low HDL Cholesterol HDL >or= 60 mg/dL High HDL Cholesterol TRIG 112 mg/dL (Normal) Comments: The drugs N-Acetylcysteine and Metamizole may falsely deressthis assay.Serum Triglycerides Reference Interval Normal <150 mg/dL Borderline high 150 - 199 mg/dL High 200 - 499 mg/dL Very High > or = 500 mg/dL CHOL 169 mg/dL (Normal) Comments: <200 mg/dL Desirable 200-240 mg/dL Borderline >240 mg/dL High Risk 48-Sgt-105692:05 Microalb:Creat Ratio,Random UR Comments: [facility] [address] [place], [address] MALB:CREAT 5.0 {mg/g_CRE} (Normal) MICROALBUMIN,UR 7.2 mg/L (Normal) UR CREAT 144.00 mg/dL (Normal) 50-Gdu-491325:05 Vitamin D,25 Hydroxy Comments: [facility] [address]rav[address] [place], [address] Vitamin D 25-OH 40.3 ng/mL (Normal) Comments: Vitamin D 25(OH) Status Range Deficiency <20 ng/mL (50nmol/L) Insuffciency 20 - 30 ng/mL (50 - 75 nmol/L) Sufficiency 30 - 100 ng/mL (75 - 250 nmol/L) Toxicity >100 ng/mL (>250 nmol/L) 71-Sfx-90622:27 CBC with auto diff (53993) Comments: PATIENT WAS FASTINGPERFORMED BY: LabCoSaint Clare's Hospital at SussexHyyiis8970 [facility] [id number] Immature Grans (Abs) 0.0 {x10E3/uL} (Normal) Range: 0.0-0.1 Immature Granulocytes 0 % (Normal) Baso (Absolute) 0.1 {x10E3/uL} (Normal) Range: 0.0-0.2 Eos (Absolute) 0.1 {x10E3/uL} (Normal) Range: 0.0-0.4 Monocytes(Absolute) 0.2 {x10E3/uL} (Normal) Range: 0.1-0.9 Lymphs (Absolute) 1.2 {x10E3/uL} (Normal) Range: 0.7-3.1 Neutrophils (Absolute) 1.7 {x10E3/uL} (Normal) Range: 1.4-7.0 Basos 2 % (Normal) Eos 3 % (Normal) Monocytes 7 % (Normal) Lymphs 36 % (Normal) Neutrophils 52 % (Normal) Platelets 268 {x10E3/uL} (Normal) Range: 150-379 RDW 13.4 % (Normal) Range: 12.3-15.4 MCHC 33.7 g/dL (Normal) Range: 31.5-35.7 MCH 31.0 pg (Normal) Range: 26.6-33.0 MCV 92 fL (Normal) Range: 79-97 Hematocrit 34.4 % (Normal) Range: 34.0-46.6 Hemoglobin 11.6 g/dL (Normal) Range: 11.1-15.9 RBC 3.74 {x10E6/uL} (Abnormal) Range: 3.77-5.28 WBC 3.3 {x10E3/uL} (Abnormal) Range: 3.4-10.8 48-Ova-143587:35 MAGNESIUM (96069) Comments: PATIENT NOT FASTINGPERFORMED BY: [facility] Jhglmh5050 [facility] [id number] Magnesium, Serum 1.8 mg/dL (Normal) Range: 1.6-2.3 :35 POTASSIUM SERUM (84964) Comments: PATIENT NOT FASTINGPERFORMED BY: [facility] Insyat3672 [facility] [id number] Potassium, Serum 4.5 mmol/L (Normal) Range: 3.5-5.2 :00 CBC W/Diff, Automated Comments: [facility] [address] [place], [address] Absolute Lymph 0.91 {X10_3/ul} (Normal) Range: 0.83-4.51 Absolute Neut 2.0 {X10_3/uL} (Normal) Range: 2.0-7.7 IM GRAN % 0.000 % (Normal) Range: 0.0-0.9 Comments: IG% - Immature Granulocytes (promyelocytes, myelocytes andmetamyelocytes) > 1% indicates that a LEFT SHIFT is Present. BASO% 0.3 % (Normal) Range: 0-1 EO% 0.6 % (Normal) Range: 0-5 MONO% 15.9 % (Abnormal) Range: 0-10 LY% 26.3 % (Normal) Range: 19-41 NEUT% 56.9 % (Normal) Range: 47-70 MPV 11.0 fL (Normal) Range: 6.2-12.0 PLT 204 K/mm3 (Normal) Range: 150-450 RDW SD 44.6 fL (Abnormal) Range: 35.1-43.9 RDW CV 12.9 % (Normal) Range: 11.6-14.6 MCHC 31.6 {g/gl} (Abnormal) Range: 32-36 MCH 29.6 pg (Normal) Range: 27.0-32.0 MCV 93.8 fL (Normal) Range: 81-99 HCT 30.4 % (Abnormal) Range: 37-47 HGB 9.6 g/dL (Abnormal) Range: 12.0-15.0 RBC 3.24 {M/mm3} (Abnormal) Range: 4.2-5.4 WBC 3.5 K/mm3 (Abnormal) Range: 4.4-11.0 :00 Comprehensive Metabolic Profil Comments: [facility] [address] [place], [place], [id number] GAP 8 (Normal) Range: 5-15 CO2 31.0 mmol/L (Normal) Range: 21.0-32.0 CL 108 mmol/L (Abnormal) Range: 98-107 K 3.0 mmol/L (Abnormal) Range: 3.5-5.1 NA 147 mmol/L (Abnormal) Range: 136-145 T BILI 0.40 mg/dL (Normal) Range: 0.20-1.00 ALT 46 U/L (Normal) Range: 12-78 ALK P 63 U/L (Normal) Range: 45-117 AST 53 U/L (Abnormal) Range: 15-37 CA 8.1 mg/dL (Abnormal) Range: 8.5-10.1 A/G 1.2 {RATIO} (Normal) Range: 0.9-2.4 GLOB 2.6 g/dL (Normal) Range: 2.3-3.5 ALB 3.0 g/dL (Abnormal) Range: 3.4-5.0 T PROT 5.6 g/dL (Abnormal) Range: 6.4-8.2 BUN/CRE 23.0 {RATIO} (Abnormal) Range: 10-20 EST GFR - AA 83 mL/min (Normal) Comments: GFR Calc EST GFR 68 mL/min (Normal) Comments: Non- GFR Calc CREAT,SERUM 0.87 mg/dL (Normal) Range: 0.55-1.02 Comments: The validity of the calculated GFR AND GFRAA in patients over70 years has not been determined. Clinical correlation isessential. BUN 20 mg/dL (Abnormal) Range: 7-18 GLU 75 mg/dL (Normal) Range: 70-110 82-Rse-62307:00 Erythrocyte Sed Rate Comments: [facility] [address] [place], [place], [id number] SED RATE 21 mm/h (Normal) Range: 0-30 2-Mca-100414:37 CBC W/Diff, Automated Comments: [facility] [address] [place], [place], [id number] Absolute Lymph 1.96 {X10_3/ul} (Normal) Range: 0.83-4.51 Absolute Neut 2.9 {X10_3/uL} (Normal) Range: 2.0-7.7 IM GRAN % 0.000 % (Normal) Range: 0.0-0.9 Comments: IG% - Immature Granulocytes (promyelocytes, myelocytes andmetamyelocytes) > 1% indicates that a LEFT SHIFT is Present. BASO% 0.9 % (Normal) Range: 0-1 EO% 1.3 % (Normal) Range: 0-5 MONO% 8.8 % (Normal) Range: 0-10 LY% 36.0 % (Normal) Range: 19-41 NEUT% 53.0 % (Normal) Range: 47-70 MPV 10.8 fL (Normal) Range: 6.2-12.0 PLT 271 K/mm3 (Normal) Range: 150-450 RDW SD 41.3 fL (Normal) Range: 35.1-43.9 RDW CV 12.2 % (Normal) Range: 11.6-14.6 MCHC 31.5 {g/gl} (Abnormal) Range: 32-36 MCH 30.9 pg (Normal) Range: 27.0-32.0 MCV 98.2 fL (Normal) Range: 81-99 HCT 32.1 % (Abnormal) Range: 37-47 HGB 10.1 g/dL (Abnormal) Range: 12.0-15.0 RBC 3.27 {M/mm3} (Abnormal) Range: 4.2-5.4 WBC 5.5 K/mm3 (Normal) Range: 4.4-11.0 :37 Thyroid Stim Hormone (TSH) Comments: [address] [place], [address] TSH 4.43 {uIU/mL} (Abnormal) Range: 0.358-3.74 :37 Vitamin B12 969 pg/mL (Abnormal) Comments: [address] [place], [address] Range: 211-911 29-Jan-20160:00 CBC W/ Manual Differential Comments: [address] [place], [address] RED CELL MORPH NORM C+C {NORMAL} (Normal) PLT EST ADEQUATE (Normal) EOS 1 % (Normal) Range: 0-5 MONOCYTE 7 % (Normal) Range: 0-10 LYMPH 29 % (Normal) Range: 19-41 SEGS 63 % (Normal) Range: 47-70 CELLS COUNTED 100 (Normal) Absolute Neut 2.4 {X10_3/uL} (Normal) Range: 2.0-7.7 PLT 215 K/mm3 (Normal) Range: 150-450 MCHC 31.5 {g/gl} (Abnormal) Range: 32-36 MCH 30.8 pg (Normal) Range: 27.0-32.0 MCV 97.8 fL (Normal) Range: 81-99 HCT 30.5 % (Abnormal) Range: 37-47 HGB 9.6 g/dL (Abnormal) Range: 12.0-15.0 RBC 3.12 {M/mm3} (Abnormal) Range: 4.2-5.4 WBC 4.5 K/mm3 (Normal) Range: 4.4-11.0 29-Jan-20160:00 Comprehensive Metabolic Profil Comments: ADD ON TSHHas Patient had X-rays with Contrast this admission? NIs Patient on Heparin? [facility] [address] [place], [place], [id number] GAP 7 (Normal) Range: 5-15 CO2 30.0 mmol/L (Normal) Range: 21.0-32.0 CL 110 mmol/L (Abnormal) Range: 98-107 K 3.6 mmol/L (Normal) Range: 3.5-5.1 NA 147 mmol/L (Abnormal) Range: 136-145 T BILI 0.40 mg/dL (Normal) Range: 0.20-1.00 ALT 19 U/L (Normal) Range: 12-78 ALK P 62 U/L (Normal) Range: 45-117 AST 17 U/L (Normal) Range: 15-37 CA 8.9 mg/dL (Normal) Range: 8.5-10.1 A/G 1.6 {RATIO} (Normal) Range: 0.9-2.4 GLOB 2.3 g/dL (Normal) Range: 2.3-3.5 ALB 3.7 g/dL (Normal) Range: 3.4-5.0 T PROT 6.0 g/dL (Abnormal) Range: 6.4-8.2 BUN/CRE 27.2 {RATIO} (Abnormal) Range: 10-20 EST GFR - AA 60 mL/min (Normal) Comments: GFR Calc EST GFR 50 mL/min (Abnormal) Comments: Non- GFR Calc CREAT,SERUM 1.14 mg/dL (Abnormal) Range: 0.55-1.02 Comments: The validity of the calculated GFR AND GFRAA in patients over70 years has not been determined. Clinical correlation isessential. BUN 31 mg/dL (Abnormal) Range: 7-18 GLU 86 mg/dL (Normal) Range: 70-110 :00 Free T3 Comments: ADD ON TSHHas Patient had X-rays with Contrast this admission? NIs Patient on Heparin? [facility] [address] [place], [place], [id number] FREE T3 2.1 pg/mL (Abnormal) Range: 2.18-3.98 :00 T4 Free Direct Comments: ADD ON TSHHas Patient had X-rays with Contrast this admission? NIs Patient on Heparin? [facility] [address] [place], [address] T4 FREE DIRECT 1.30 ng/dL (Normal) Range: 0.76-1.46 29-Jan-20160:00 Thyroid Peroxidase AB Comments: [facility] (refer to report for specific site)refer to report for address and phone number TPO AB [phone] 6 {IU/mL} (Normal) Range: 0-34 Comments: Performed at: [facility] [address] [id number] Director: Samm Galvan PhD, Phone: [phone] 29-Jan-20160:00 Thyroid Stim Hormone (TSH) Comments: ADD ON TSHHas Patient had X-rays with Contrast this admission? NIs Patient on Heparin? [facility] [address] [place], [address] TSH 5.27 {uIU/mL} (Abnormal) Range: 0.358-3.74 87-Knu-676138:38 CBC W/Diff, Auto - EPLAB Comments: At [facility] Outpatient [facility] [place] Medical Oncologypatients receive CBC w/auto Differential ONLY. Physicianwill place an order for a manual differential or Pathologistreview at his discretion. [facility] OUTPATIENT [facility]. [address] [place] [address] INTERNATIONAL RELATIONS PROFESSOR: JOSE KOHLI DO PH:[phone] [facility] [address] [place], [place], [address] Absolute Lymph 1.55 {X10_3/uL} (Normal) Range: 0.83-4.51 Absolute Neut 3.2 {X10_3/uL} (Normal) Range: 2.0-7.7 BASO% 0.9 % (Normal) Range: 0-1 EO% 3.3 % (Normal) Range: 0-5 MONO% 7.2 % (Normal) Range: 0-10 LY% 28.6 % (Normal) Range: 19-41 NEUT% 60.0 % (Normal) Range: 47-70 MPV 6.6 fL (Normal) Range: 6.2-12.0 PLT 205 K/mm3 (Normal) Range: 150-450 RDW 12.5 % (Normal) Range: 11.6-14.6 MCHC 32.6 g/dL (Normal) Range: 32-36 MCH 32.5 pg (Abnormal) Range: 27.0-32.0 MCV 99.7 fL (Abnormal) Range: 81-99 HCT 33.7 % (Abnormal) Range: 37-47 HGB 11.0 g/dL (Abnormal) Range: 12.0-15.0 RBC 3.38 {M/mm3} (Abnormal) Range: 4.2-5.4 WBC 5.4 K/mm3 (Normal) Range: 4.4-11.0 00-Oho-594750:19 Pathology Report Comments: PERFORMED BY: 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 THE SURGICAL MARGINIS INKED BLUE AND THE SPEC IMEN IS BISECTED. THE SPECIMEN IS SUBMITTEDIN CASSETTE(S) A./CORCOR/CORPathologist provided ICD-10:D04.62CPT .[id number] 45-Inj-654556:15 HgA1C , Office (50938) HgA1C , Office 5.7 % (Normal) Range: 4.6 - 7.1 :13 CBC W/Diff, Automated Comments: [facility] [address] [place], [place], [address] Absolute Lymph 1.90 {X10_3/ul} (Normal) Range: 0.83-4.51 Absolute Neut 2.2 {X10_3/uL} (Normal) Range: 2.0-7.7 IM GRAN % 0.000 % (Normal) Range: 0.0-0.9 Comments: IG% - Immature Granulocytes (promyelocytes, myelocytes andmetamyelocytes) > 1% indicates that a LEFT SHIFT is Present. BASO% 0.9 % (Normal) Range: 0-1 EO% 1.6 % (Normal) Range: 0-5 MONO% 6.9 % (Normal) Range: 0-10 LY% 42.4 % (Abnormal) Range: 19-41 NEUT% 48.2 % (Normal) Range: 47-70 MPV 10.3 fL (Normal) Range: 6.2-12.0 PLT 248 K/mm3 (Normal) Range: 150-450 RDW SD 44.0 fL (Abnormal) Range: 35.1-43.9 RDW CV 12.8 % (Normal) Range: 11.6-14.6 MCHC 31.8 {g/gl} (Abnormal) Range: 32-36 MCH 30.8 pg (Normal) Range: 27.0-32.0 MCV 96.9 fL (Normal) Range: 81-99 HCT 37.1 % (Normal) Range: 37-47 HGB 11.8 g/dL (Abnormal) Range: 12.0-15.0 RBC 3.83 {M/mm3} (Abnormal) Range: 4.2-5.4 WBC 4.5 K/mm3 (Normal) Range: 4.4-11.0 00-Aax-420337:13 Comprehensive Metabolic Profil Comments: [facility] [address] [place], [place], [address] GAP 6 (Normal) Range: 5-15 CO2 30.0 mmol/L (Normal) Range: 21.0-32.0 CL 103 mmol/L (Normal) Range: 98-107 K 3.5 mmol/L (Normal) Range: 3.5-5.1 NA 139 mmol/L (Normal) Range: 136-145 T BILI 0.50 mg/dL (Normal) Range: 0.20-1.00 ALT 20 U/L (Normal) Range: 12-78 ALK P 65 U/L (Normal) Range: 50-136 AST 19 U/L (Normal) Range: 15-37 CA 9.3 mg/dL (Normal) Range: 8.5-10.1 A/G 1.2 {RATIO} (Normal) Range: 0.9-2.4 GLOB 3.3 g/dL (Normal) Range: 2.3-3.5 ALB 3.9 g/dL (Normal) Range: 3.4-5.0 T PROT 7.2 g/dL (Normal) Range: 6.4-8.2 BUN/CRE 17.7 {RATIO} (Normal) Range: 10-20 EST GFR - AA 61 mL/min (Normal) Comments: GFR Calc EST GFR 51 mL/min (Abnormal) Comments: Non- GFR Calc CREAT,SERUM 1.13 mg/dL (Normal) Range: 0.55-1.20 Comments: The validity of the calculated GFR AND GFRAA in patients over70 years has not been determined. Clinical correlation isessential. BUN 20 mg/dL (Abnormal) Range: 7-18 GLU 89 mg/dL (Normal) Range: 70-110 82-Mba-101908:13 CRP Comments: [facility] [address] [place], [place], [id number] C-REACTIVE PROT < 2.90 mg/L (Normal) Range: 0.0-3.0 Comments: C-Reactive Protein (CRP) provides useful information for thediagnosis, therapy and monitoring of inflammatory processesand associated diseases. For the evaluation of Relative Riskfor Cardiovascular Dise ase, a High Sensitivity CRP (HSCRP)should be ordered. 84-Lgy-639683:13 Erythrocyte Sed Rate Comments: [facility] [address] [place], [place], [id number] SED RATE 13 mm/h (Normal) Range: 0-30 81-Cps-981755:13 Lipid Profile Comments: [facility] [address] [place], [address] VLDL 32 mg/dL (Normal) Range: 5-40 LDL 86 mg/dL (Normal) Range: 0-130 HDL 60 mg/dL (Normal) Comments: The drugs N-Acetylcysteine and Metamizole may falsely deressthis assay. Reference Range HDL <40 mg/dL Low HDL Cholesterol HDL >or= 60 mg/dL High HDL Cholesterol TRIG 160 mg/dL (Normal) Comments: The drugs N-Acetylcysteine and Metamizole may falsely deressthis assay.Serum Triglycerides Reference Interval Normal <150 mg/dL Borderline high 150 - 199 mg/dL High 200 - 499 mg/dL Very High > or = 500 mg/dL CHOL 178 mg/dL (Normal) Comments: <200 mg/dL Desirable 200-240 mg/dL Borderline >240 mg/dL High Risk 64-Oer-068063:13 Rheumatoid Factor Comments: [facility] [address] [place], [place], [id number] RHEUMATOID FAC < 10.0 {IU/mL} (Normal) 58-Lbg-372439:13 Thyroid Stim Hormone (TSH) Comments: [facility] [address] [place], [address] TSH 4.62 {uIU/mL} (Abnormal) Range: 0.358-3.74 :54 Lipid Profile Comments: ORDERED: CBCD, CMP, LDH, URIC, XTRADR.FAST ORDERED: LIPID, CMP, VITD, CBCDWSum[facility] [address] [place], [address] VLDL 20 mg/dL (Normal) Range: 5-40 LDL 70 mg/dL (Normal) Range: 0-130 HDL 82 mg/dL (Normal) Comments: Reference Range HDL <40 mg/dL Low HDL Cholesterol HDL >or= 60 mg/dL High HDL Cholesterol TRIG 102 mg/dL (Normal) Comments: Serum Triglycerides Reference Interval Normal <150 mg/dL Borderline high 150 - 199 mg/dL High 200 - 499 mg/dL Very High > or = 500 mg/dL CHOL 172 mg/dL (Normal) Comments: <200 mg/dL Desirable 200-240 mg/dL Borderline >240 mg/dL High Risk :54 Vitamin D,25 Hydroxy Comments: [facility] [id number]. [place], [address] Vitamin D 25-OH 43.8 ng/mL (Normal) Comments: Vitamin D 25(OH) Status Range Deficiency <20 ng/mL (50nmol/L) Insuffciency 20 - 30 ng/mL (50 - 75 nmol/L) Sufficiency 30 - 100 ng/mL (75 - 250 nmol/L) Toxicity >100 ng/mL (>250 nmol/L) :53 CBC W/Diff, Automated Comments: [facility] [id number] [place], [address] Absolute Lymph 1.63 {X10_3/ul} (Normal) Range: 0.83-4.51 Absolute Neut 1.8 {X10_3/uL} (Abnormal) Range: 2.0-7.7 IM GRAN % 0.000 % (Normal) Range: 0.0-0.9 Comments: IG% - Immature Granulocytes (promyelocytes, myelocytes andmetamyelocytes) > 1% indicates that a LEFT SHIFT is Present. BASO% 2.2 % (Abnormal) Range: 0-1 EO% 3.8 % (Normal) Range: 0-5 MONO% 11.0 % (Abnormal) Range: 0-10 LY% 39.1 % (Normal) Range: 19-41 NEUT% 43.9 % (Abnormal) Range: 47-70 MPV 11.2 fL (Normal) Range: 6.2-12.0 PLT 223 K/mm3 (Normal) Range: 150-450 RDW SD 45.1 fL (Abnormal) Range: 35.1-43.9 RDW CV 13.4 % (Normal) Range: 11.6-14.6 MCHC 31.6 {g/gl} (Abnormal) Range: 32-36 MCH 30.7 pg (Normal) Range: 27.0-32.0 MCV 97.2 fL (Normal) Range: 81-99 HCT 35.1 % (Abnormal) Range: 37-47 HGB 11.1 g/dL (Abnormal) Range: 12.0-15.0 RBC 3.61 {M/mm3} (Abnormal) Range: 4.2-5.4 WBC 4.2 K/mm3 (Abnormal) Range: 4.4-11.0 :53 Comprehensive Metabolic Profil Comments: [facility] [id number] [place], [place], [id number] GAP 7 (Normal) Range: 5-15 CO2 32.0 mmol/L (Normal) Range: 21.0-32.0 CL 105 mmol/L (Normal) Range: 98-107 K 3.8 mmol/L (Normal) Range: 3.5-5.1 NA 144 mmol/L (Normal) Range: 136-145 T BILI 0.50 mg/dL (Normal) Range: 0.20-1.00 ALT 22 U/L (Normal) Range: 12-78 ALK P 56 U/L (Normal) Range: 50-136 AST 19 U/L (Normal) Range: 15-37 CA 9.8 mg/dL (Normal) Range: 8.5-10.1 A/G 1.2 {RATIO} (Normal) Range: 0.9-2.4 GLOB 3.3 g/dL (Normal) Range: 2.3-3.5 ALB 4.0 g/dL (Normal) Range: 3.4-5.0 T PROT 7.3 g/dL (Normal) Range: 6.4-8.2 BUN/CRE 21.2 {RATIO} (Abnormal) Range: 10-20 EST GFR - AA 61 mL/min (Normal) Comments: GFR Calc EST GFR 51 mL/min (Abnormal) Comments: Non- GFR Calc CREAT,SERUM 1.13 mg/dL (Normal) Range: 0.55-1.20 Comments: The validity of the calculated GFR AND GFRAA in patients over70 years has not been determined. Clinical correlation isessential. BUN 24 mg/dL (Abnormal) Range: 7-18 GLU 84 mg/dL (Normal) Range: 70-110 :53 LDH 182 U/L (Normal) Comments: [facility] [id number] [place], [place], [id number] Range: 84-246 :53 Uric Acid Comments: [facility] [id number] [place], [place], [id number] URIC 4.4 mg/dL (Normal) Range: 2.6-6.0 [id number] CBC W/Diff, Auto - EPLAB Comments: At [facility] Medical Oncologypatients receive CBC w/auto Differential ONLY. Physicianwill place an order for a manual differential or Pathologistreview at his discretion. [facility]. [address] [place] [address] INTERNATIONAL RELATIONS PROFESSOR: JOSE KOHLI DO PH:[phone] [address] [place], [place], [id number] Absolute Lymph 1.40 {X10_3/uL} (Normal) Range: 0.83-4.51 Absolute Neut 2.1 {X10_3/uL} (Normal) Range: 2.0-7.7 BASO% 2.2 % (Abnormal) Range: 0-1 EO% 3.4 % (Normal) Range: 0-5 MONO% 8.3 % (Normal) Range: 0-10 LY% 34.8 % (Normal) Range: 19-41 NEUT% 51.4 % (Normal) Range: 47-70 MPV 8.8 fL (Normal) Range: 6.2-12.0 PLT 227 K/mm3 (Normal) Range: 150-450 RDW 12.1 % (Normal) Range: 11.6-14.6 MCHC 34.8 g/dL (Normal) Range: 32-36 MCH 32.6 pg (Abnormal) Range: 27.0-32.0 MCV 93.6 fL (Normal) Range: 81-99 HCT 32.9 % (Abnormal) Range: 37-47 HGB 11.4 g/dL (Abnormal) Range: 12.0-15.0 RBC 3.51 {M/mm3} (Abnormal) Range: 4.2-5.4 WBC 4.0 K/mm3 (Abnormal) Range: 4.4-11.0 13-Mqr-[id number]:43 CBC W/Diff, Automated Comments: [facility] [address] [place], [place], [id number] Absolute Lymph 1.46 {X10_3/ul} (Normal) Range: 0.83-4.51 Absolute Neut 2.0 {X10_3/uL} (Normal) Range: 2.0-7.7 IM GRAN % 0.300 % (Normal) Range: 0.0-0.9 Comments: IG% - Immature Granulocytes (promyelocytes, myelocytes andmetamyelocytes) > 1% indicates that a LEFT SHIFT is Present. BASO% 1.3 % (Abnormal) Range: 0-1 EO% 2.5 % (Normal) Range: 0-5 MONO% 8.6 % (Normal) Range: 0-10 LY% 36.8 % (Normal) Range: 19-41 NEUT% 50.5 % (Normal) Range: 47-70 MPV 11.0 fL (Normal) Range: 6.2-12.0 PLT 240 K/mm3 (Normal) Range: 150-450 RDW SD 42.5 fL (Normal) Range: 35.1-43.9 RDW CV 12.7 % (Normal) Range: 11.6-14.6 MCHC 31.1 {g/gl} (Abnormal) Range: 32-36 MCH 29.9 pg (Normal) Range: 27.0-32.0 MCV 95.9 fL (Normal) Range: 81-99 HCT 35.0 % (Abnormal) Range: 37-47 HGB 10.9 g/dL (Abnormal) Range: 12.0-15.0 RBC 3.65 {M/mm3} (Abnormal) Range: 4.2-5.4 WBC 4.0 K/mm3 (Abnormal) Range: 4.4-11.0 :43 CRP Comments: 'TROP' Serial specimen #1, #2, #3, or #4: [facility] [address] [place], [address] C-REACTIVE PROT < 2.90 mg/L (Normal) Range: 0.0-3.0 Comments: C-Reactive Protein (CRP) provides useful information for thediagnosis, therapy and monitoring of inflammatory processesand associated diseases. For the evaluation of Relative Riskfor Cardiovascular Dise ase, a High Sensitivity CRP (HSCRP)should be ordered. :43 CRP Comments: 'TROP' Serial specimen #1, #2, #3, or #4: [facility] [address] [place], [address] C-REACTIVE PROT < 2.90 mg/L (Normal) Range: 0.0-3.0 Comments: C-Reactive Protein (CRP) provides useful information for thediagnosis, therapy and monitoring of inflammatory processesand associated diseases. For the evaluation of Relative Riskfor Cardiovascular Dise ase, a High Sensitivity CRP (HSCRP)should be ordered. :43 Erythrocyte Sed Rate Comments: [facility] [address] [place], [place], [id number] SED RATE 9 mm/h (Normal) Range: 0-30 :43 ASSAY, TROPONIN, QUANTITATIVE Comments: stat; 'TROP' Serial specimen #1, #2, #3, or #4: [address] [place], [place], [id number] (aka Troponin I) ([address]) TROPONIN-I < 0.02 ng/mL (Normal) Comments: TROPONIN-I EXPECTED VALUES <0.05 NEGATIVE 0.06 - 0.59 AT RISK OF UT > OR = 0.60 SUGGEST UT 57-Cyi-130564:15 Basic Metabolic Profile (BMP) Comments: PLEASE REDRAW PREVIOUS SPECIMENS MISLABELED'TROP' Serial specimen #1, #2, #3, or #4: 1'CKMB' Serial Specimen #1, #2 or #3? [facility] [address] [place], [address] GAP 2 (Abnormal) Range: 5-15 CO2 31.0 mmol/L (Normal) Range: 21.0-32.0 CL 108 mmol/L (Abnormal) Range: 98-107 K 4.1 mmol/L (Normal) Range: 3.5-5.1 Comments: Slight Hemolysis, Result may be falsely increased. NA 141 mmol/L (Normal) Range: 136-145 CA 9.7 mg/dL (Normal) Range: 8.5-10.1 BUN/CRE 18.7 {RATIO} (Normal) Range: 10-20 Estimated CRCL 44.02 ml/min (Normal) EST GFR - AA 65 mL/min (Normal) Comments: GFR Calc EST GFR 54 mL/min (Abnormal) Comments: Non- GFR Calc CREAT,SERUM 1.07 mg/dL (Normal) Range: 0.55-1.20 Comments: The validity of the calculated GFR AND GFRAA in patients over70 years has not been determined. Clinical correlation isessential. BUN 20 mg/dL (Abnormal) Range: 7-18 GLU 103 mg/dL (Normal) Range: 70-110 39-Jdo-930941:15 CBC W/Diff, Automated Comments: [facility] [address], [address] Absolute Lymph 1.99 {X10_3/ul} (Normal) Range: 0.83-4.51 Absolute Neut 3.1 {X10_3/uL} (Normal) Range: 2.0-7.7 IM GRAN % 0.200 % (Normal) Range: 0.0-0.9 Comments: IG% - Immature Granulocytes (promyelocytes, myelocytes andmetamyelocytes) > 1% indicates that a LEFT SHIFT is Present. BASO% 0.5 % (Normal) Range: 0-1 EO% 3.6 % (Normal) Range: 0-5 MONO% 7.7 % (Normal) Range: 0-10 LY% 34.2 % (Normal) Range: 19-41 NEUT% 53.8 % (Normal) Range: 47-70 MPV 10.7 fL (Normal) Range: 6.2-12.0 PLT 249 K/mm3 (Normal) Range: 150-450 RDW SD 42.5 fL (Normal) Range: 35.1-43.9 RDW CV 12.6 % (Normal) Range: 11.6-14.6 MCHC 33.0 {g/gl} (Normal) Range: 32-36 MCH 31.4 pg (Normal) Range: 27.0-32.0 MCV 95.0 fL (Normal) Range: 81-99 HCT 32.4 % (Abnormal) Range: 37-47 HGB 10.7 g/dL (Abnormal) Range: 12.0-15.0 RBC 3.41 {M/mm3} (Abnormal) Range: 4.2-5.4 WBC 5.8 K/mm3 (Normal) Range: 4.4-11.0 40-Nih-166388:15 CK-MB Quantitative and Index Comments: PLEASE REDRAW PREVIOUS SPECIMENS MISLABELED'TROP' Serial specimen #1, #2, #3, or #4: 1'CKMB' Serial Specimen #1, #2 or #3? 1[facility] [address] [facility]. [place], [place], [address] CKRI 0.7 % (Normal) Range: 0.0-1.4 Comments: RELATIVE INDEX >1.5% IS PRESUMPTIVELY POSITIVE CPKMB 0.6 ng/mL (Normal) Range: 0.0-5.0 Comments: CK-MB and RI Interpretation MB Relative Index Non-AMI <or= 5 NA Indeterminate > 5 <or= 4 AMI > 5 > 4 CPK TOTAL 82 U/L (Normal) Range: 26-192 37-Ucy-837030:15 Partial Thromboplast Time Comments: [facility] [address] [place], [place], [id number] PTT 48.2 s (Abnormal) Range: 24.1-36.2 17-Dnm-665545:15 Prothrombin Time w/INR Comments: [facility] [address] [place], [place], [address] INR 2.3 (Normal) PROTIME 25.3 s (Abnormal) Range: 11.7-14.9 38-Rzh-263409:15 Troponin-I Comments: PLEASE REDRAW PREVIOUS SPECIMENS MISLABELED'TROP' Serial specimen #1, #2, #3, or #4: 1'CKMB' Serial Specimen #1, #2 or #3? 1[facility] [address] [place], [place], [address] TROPONIN-I < 0.02 ng/mL (Normal) Comments: TROPONIN-I EXPECTED VALUES <0.05 NEGATIVE 0.06 - 0.59 AT RISK OF UT > OR = 0.60 SUGGEST UT 52-Wwt-[id number]:25 Basic Metabolic Profile (BMP) Comments: Serial Specimen #1, #2 or #3? 1'TROP' Serial specimen #1, #2, #3, or #4: [facility] [address]yt[address] [place], [place], [address] GAP 10 (Normal) Range: 5-15 CO2 26.0 mmol/L (Normal) Range: 21.0-32.0 CL 106 mmol/L (Normal) Range: 98-107 K 3.6 mmol/L (Normal) Range: 3.5-5.1 NA 142 mmol/L (Normal) Range: 136-145 CA 9.8 mg/dL (Normal) Range: 8.5-10.1 BUN/CRE 19.1 {RATIO} (Normal) Range: 10-20 Estimated CRCL 35.96 ml/min (Normal) EST GFR - AA 52 mL/min (Abnormal) Comments: GFR Calc EST GFR 43 mL/min (Abnormal) Comments: Non- GFR Calc CREAT,SERUM 1.31 mg/dL (Abnormal) Range: 0.55-1.20 Comments: The validity of the calculated GFR AND GFRAA in patients over70 years has not been determined. Clinical correlation isessential. BUN 25 mg/dL (Abnormal) Range: 7-18 GLU 104 mg/dL (Normal) Range: 70-110 12-Dih-102719:25 BNP,B-Type NATRIURETIC PEPTIDE Comments: [facility] [address] [place], [place], [address] B-TYPE STEFAN PEP 94.1 pg/mL (Normal) Range: 0-100 27-Tcg-273598:25 CBC W/Diff, Automated Comments: [facility] [address] [place], [place], [address] Absolute Lymph 2.03 {X10_3/ul} (Normal) Range: 0.83-4.51 Absolute Neut 3.1 {X10_3/uL} (Normal) Range: 2.0-7.7 IM GRAN % 0.200 % (Normal) Range: 0.0-0.9 Comments: IG% - Immature Granulocytes (promyelocytes, myelocytes andmetamyelocytes) > 1% indicates that a LEFT SHIFT is Present. BASO% 1.0 % (Normal) Range: 0-1 EO% 2.3 % (Normal) Range: 0-5 MONO% 11.5 % (Abnormal) Range: 0-10 LY% 33.9 % (Normal) Range: 19-41 NEUT% 51.1 % (Normal) Range: 47-70 MPV 10.7 fL (Normal) Range: 6.2-12.0 PLT 208 K/mm3 (Normal) Range: 150-450 RDW SD 41.9 fL (Normal) Range: 35.1-43.9 RDW CV 12.8 % (Normal) Range: 11.6-14.6 MCHC 33.6 {g/gl} (Normal) Range: 32-36 MCH 31.4 pg (Normal) Range: 27.0-32.0 MCV 93.3 fL (Normal) Range: 81-99 HCT 34.8 % (Abnormal) Range: 37-47 HGB 11.7 g/dL (Abnormal) Range: 12.0-15.0 RBC 3.73 {M/mm3} (Abnormal) Range: 4.2-5.4 WBC 6.0 K/mm3 (Normal) Range: 4.4-11.0 26-Wms-102526:25 CK-MB Quantitative and Index Comments: Serial Specimen #1, #2 or #3? 1'TROP' Serial specimen #1, #2, #3, or #4: [address] [place] [address] [address] [facility] [place], [address] CKRI Test not performed % (Normal) Range: 0.0-1.4 CPKMB < 0.5 ng/mL (Normal) Range: 0.0-5.0 Comments: CK-MB and RI Interpretation MB Relative Index Non-AMI <or= 5 NA Indeterminate > 5 <or= 4 AMI > 5 > 4 CPK TOTAL 69 U/L (Normal) Range: 26-192 03-Ldq-659656:25 Prothrombin Time w/INR Comments: [facility] [address]dvj[address] V[address] [facility] [place], [address] INR 1.0 (Normal) PROTIME 13.4 s (Normal) Range: 11.7-14.9 [id number]-Gbq-015447:25 Troponin-I Comments: Serial Specimen #1, #2 or #3? 1'TROP' Serial specimen #1, #2, #3, or #4: [address] [place] [address] [address] [facility]. [place], [place], [address] TROPONIN-I < 0.02 ng/mL (Normal) Comments: TROPONIN-I EXPECTED VALUES <0.05 NEGATIVE 0.06 - 0.59 AT RISK OF UT > OR = 0.60 SUGGEST UT 02-Gec-024810:50 Urinalysis, Office (24667) UA - LEUKOCYTE ESTERASE Small (Normal) UA - NITRITE Negative (Normal) URINE UROBILINGN DIPAK TIMED Normal mg/dL (Normal) UA - PROTEIN Negative mg/dL (Normal) UA - PH 7.0 (Normal) UA - BLOOD Non Hemolyzed Trace (Normal) UA - SPECIFIC GRAVITY 1.015 (Normal) UA - KETONES Negative mg/dL (Normal) UA - BILIRUBIN Negative (Normal) UA - GLUCOSE Negative (Normal) 90-Kmd-685254:16 URINE ELLE CULTURE-IDENTIFICATN Comments: PATIENT NOT FASTINGPERFORMED BY: [facility] Oevddv4[address] Stephanie Burrelljody [place] [id number] Information: [id number] ([id number]) Result 1 MUG (Normal) Comments: Mixed urogenital flora1,000 Colonies/mL Urine Culture,Comprehensive Final report (Normal) :58 CBC W/Diff, Automated Comments: [facility] [address]fps[address] Rodriguez[address] [place], [place], [id number] ; non-emergent till apt Absolute Lymph 1.57 {X10_3/ul} (Normal) Range: 0.83-4.51 Absolute Neut 3.5 {X10_3/uL} (Normal) Range: 2.0-7.7 IM GRAN % 0.000 % (Normal) Range: 0.0-0.9 Comments: IG% - Immature Granulocytes (promyelocytes, myelocytes andmetamyelocytes) > 1% indicates that a LEFT SHIFT is Present. BASO% 0.5 % (Normal) Range: 0-1 EO% 2.2 % (Normal) Range: 0-5 MONO% 7.0 % (Normal) Range: 0-10 LY% 28.2 % (Normal) Range: 19-41 NEUT% 62.1 % (Normal) Range: 47-70 MPV 10.8 fL (Normal) Range: 6.2-12.0 PLT 236 K/mm3 (Normal) Range: 150-450 RDW SD 45.1 fL (Abnormal) Range: 35.1-43.9 RDW CV 13.1 % (Normal) Range: 11.6-14.6 MCHC 31.9 {g/gl} (Abnormal) Range: 32-36 MCH 30.5 pg (Normal) Range: 27.0-32.0 MCV 95.7 fL (Normal) Range: 81-99 HCT 35.4 % (Abnormal) Range: 37-47 HGB 11.3 g/dL (Abnormal) Range: 12.0-15.0 RBC 3.70 {M/mm3} (Abnormal) Range: 4.2-5.4 WBC 5.6 K/mm3 (Normal) Range: 4.4-11.0 :58 Comprehensive Metabolic Profil Comments: [facility] [address] [place], [place], [address] GAP 8 (Normal) Range: 5-15 CO2 30.0 mmol/L (Normal) Range: 21.0-32.0 CL 107 mmol/L (Normal) Range: 98-107 K 3.6 mmol/L (Normal) Range: 3.5-5.1 NA 145 mmol/L (Normal) Range: 136-145 T BILI 0.50 mg/dL (Normal) Range: 0.20-1.00 ALT 17 U/L (Normal) Range: 12-78 ALK P 52 U/L (Normal) Range: 50-136 AST 19 U/L (Normal) Range: 15-37 CA 9.4 mg/dL (Normal) Range: 8.5-10.1 A/G 1.2 {RATIO} (Normal) Range: 0.9-2.4 GLOB 3.3 g/dL (Normal) Range: 2.3-3.5 ALB 3.9 g/dL (Normal) Range: 3.4-5.0 T PROT 7.2 g/dL (Normal) Range: 6.4-8.2 BUN/CRE 24.2 {RATIO} (Abnormal) Range: 10-20 EST GFR - AA 75 mL/min (Normal) Comments: GFR Calc EST GFR 62 mL/min (Normal) Comments: Non- GFR Calc CREAT,SERUM 0.95 mg/dL (Normal) Range: 0.55-1.20 Comments: The validity of the calculated GFR AND GFRAA in patients over70 years has not been determined. Clinical correlation isessential. BUN 23 mg/dL (Abnormal) Range: 7-18 GLU 85 mg/dL (Normal) Range: 70-110 :58 Hemoglobin A1c Comments: [facility] [address] [place], [address] HGB A1C 5.9 % (Normal) Range: 4.2-6.3 :58 Lipid Profile Comments: [facility] [address] [place], [address] VLDL 14 mg/dL (Normal) Range: 5-40 LDL 73 mg/dL (Normal) Range: 0-130 HDL 85 mg/dL (Normal) Comments: Reference Range HDL <40 mg/dL Low HDL Cholesterol HDL >or= 60 mg/dL High HDL Cholesterol TRIG 70 mg/dL (Normal) Comments: Serum Triglycerides Reference Interval Normal <150 mg/dL Borderline high 150 - 199 mg/dL High 200 - 499 mg/dL Very High > or = 500 mg/dL CHOL 172 mg/dL (Normal) Comments: <200 mg/dL Desirable 200-240 mg/dL Borderline >240 mg/dL High Risk :58 Urinalysis, Complete Comments: How was Urine Obtained? CLEAN [facility] [address]av[address] [place], [address] MUCUS, URINE 0 SEEN {/hpf} (Normal) BACTERIA 1+ {/hpf} (Normal) SQUAM EPI 0-5 SEEN {/hpf} (Normal) Range: 5-10 RBC-UA 0-5 SEEN {/hpf} (Normal) Range: 0-5 WBC 10-25 SEEN {/hpf} (Normal) Range: 0-5 LEUK ESTERASE 100 /ul (Abnormal) OCCULT BLOOD-UR 50 /ul (Abnormal) NITRITE UR Negative (Normal) UROBILI Normal mg/dL (Normal) PROT DIPSTX Negative mg/dL (Normal) pH UR 6.5 (Normal) Range: 5.0 - 8.0 SP.GR. DIPSTX 1.010 (Normal) Range: 1.002-1.030 KETONE UR Negative mg/dL (Normal) BILIRUBIN URINE Negative mg/dL (Normal) GLUCOSE, UR Normal mg/dL (Normal) CLARITY Sl. Cloudy (Normal) COLOR Yellow (Normal) 78-Yhs-02997:26 CBC W/Diff, Auto - EPLAB Comments: At [facility] Outpatient [facility] Medical Oncologypatients receive CBC w/auto Differential ONLY. Physicianwill place an order for a manual differential or Pathologistreview at his discretion. [facility] OUTPATIENT [facility]. [address] [place] [address] INTERNATIONAL RELATIONS PROFESSOR: JOSE KOHLI DO PH:[phone] [facility] [address]sojb[address] [place], [address] ; ordered by Dr. Evgeny Farmer Absolute Lymph 1.88 {X10_3/uL} (Normal) Range: 0.83-4.51 Absolute Neut 4.5 {X10_3/uL} (Normal) Range: 2.0-7.7 BASO% 1.3 % (Abnormal) Range: 0-1 EO% 1.7 % (Normal) Range: 0-5 MONO% 6.0 % (Normal) Range: 0-10 LY% 26.7 % (Normal) Range: 19-41 NEUT% 64.3 % (Normal) Range: 47-70 MPV 7.5 fL (Normal) Range: 6.2-12.0 PLT 196 K/mm3 (Normal) Range: 150-450 RDW 11.8 % (Normal) Range: 11.6-14.6 MCHC 34.8 g/dL (Normal) Range: 32-36 MCH 30.4 pg (Normal) Range: 27.0-32.0 MCV 87.3 fL (Normal) Range: 81-99 HCT 32.6 % (Abnormal) Range: 37-47 HGB 11.4 g/dL (Abnormal) Range: 12.0-15.0 RBC 3.73 {M/mm3} (Abnormal) Range: 4.2-5.4 WBC 7.0 K/mm3 (Normal) Range: 4.4-11.0 4-Zkm-232157:30 Basic Metabolic Profile (BMP) Comments: [facility] [address]ely[address] [place], [address] GAP 8 (Normal) Range: 5-15 CO2 27.0 mmol/L (Normal) Range: 21.0-32.0 CL 110 mmol/L (Abnormal) Range: 98-107 K 4.0 mmol/L (Normal) Range: 3.5-5.1 NA 145 mmol/L (Normal) Range: 136-145 CA 9.0 mg/dL (Normal) Range: 8.5-10.1 BUN/CRE 34.3 {RATIO} (Abnormal) Range: 10-20 EST GFR - AA 86 mL/min (Normal) Comments: GFR Calc EST GFR 71 mL/min (Normal) Comments: Non- GFR Calc CREAT,SERUM 0.85 mg/dL (Normal) Range: 0.55-1.20 Comments: The validity of the calculated GFR AND GFRAA in patients over70 years has not been determined. Clinical correlation isessential. BUN 29 mg/dL (Abnormal) Range: 7-18 GLU 84 mg/dL (Normal) Range: 70-110 6-Qlo-024217:30 CBC-Complete Blood Cnt No Diff Comments: [facility] [address] [place], [place], [id number] MPV 11.8 fL (Normal) Range: 6.2-12.0 PLT 195 K/mm3 (Normal) Range: 150-450 RDW SD 42.7 fL (Normal) Range: 35.1-43.9 RDW CV 12.7 % (Normal) Range: 11.6-14.6 MCHC 31.7 {g/gl} (Abnormal) Range: 32-36 MCH 30.2 pg (Normal) Range: 27.0-32.0 MCV 95.3 fL (Normal) Range: 81-99 HCT 34.4 % (Abnormal) Range: 37-47 HGB 10.9 g/dL (Abnormal) Range: 12.0-15.0 RBC 3.61 {M/mm3} (Abnormal) Range: 4.2-5.4 WBC 6.7 K/mm3 (Normal) Range: 4.4-11.0 29-Xzq-515482:37 CBC W/Diff, Auto - EPLAB Comments: At [facility] Outpatient [facility] Medical Oncologypatients receive CBC w/auto Differential ONLY. Physicianwill place an order for a manual differential or Pathologistreview at his discretion. [facility] OUTPATIENT [facility]. [address] [place] [address] INTERNATIONAL RELATIONS PROFESSOR: JOSE KOHLI DO PH:[phone] [facility] [address] [place], [place], [address] Absolute Lymph 1.77 {X10_3/uL} (Normal) Range: 0.83-4.51 Absolute Neut 1.9 {X10_3/uL} (Abnormal) Range: 2.0-7.7 BASO% 2.0 % (Abnormal) Range: 0-1 EO% 3.2 % (Normal) Range: 0-5 MONO% 8.4 % (Normal) Range: 0-10 LY% 41.3 % (Abnormal) Range: 19-41 NEUT% 45.1 % (Abnormal) Range: 47-70 MPV 6.9 fL (Normal) Range: 6.2-12.0 PLT 194 K/mm3 (Normal) Range: 150-450 RDW 11.5 % (Abnormal) Range: 11.6-14.6 MCHC 33.3 g/dL (Normal) Range: 32-36 MCH 30.1 pg (Normal) Range: 27.0-32.0 MCV 90.5 fL (Normal) Range: 81-99 HCT 33.7 % (Abnormal) Range: 37-47 HGB 11.2 g/dL (Abnormal) Range: 12.0-15.0 RBC 3.72 {M/mm3} (Abnormal) Range: 4.2-5.4 WBC 4.3 K/mm3 (Abnormal) Range: 4.4-11.0 77-Tak-176614:37 Comprehensive Metabolic Profil Comments: Serial Specimen #1, #2 or #3? 1Is Patient Taking Vitamins or Folic Acid Supplements? [facility] [address] [place], [place], [address] GAP 7 (Normal) Range: 5-15 CO2 29.0 mmol/L (Normal) Range: 21.0-32.0 CL 109 mmol/L (Abnormal) Range: 98-107 K 4.1 mmol/L (Normal) Range: 3.5-5.1 NA 145 mmol/L (Normal) Range: 136-145 T BILI 0.60 mg/dL (Normal) Range: 0.20-1.00 ALT 20 U/L (Normal) Range: 12-78 ALK P 45 U/L (Abnormal) Range: 50-136 AST 21 U/L (Normal) Range: 15-37 CA 8.9 mg/dL (Normal) Range: 8.5-10.1 A/G 1.4 {RATIO} (Normal) Range: 0.9-2.4 GLOB 2.9 g/dL (Normal) Range: 2.3-3.5 ALB 4.0 g/dL (Normal) Range: 3.4-5.0 T PROT 6.9 g/dL (Normal) Range: 6.4-8.2 BUN/CRE 37.2 {RATIO} (Abnormal) Range: 10-20 EST GFR - AA 76 mL/min (Normal) Comments: GFR Calc EST GFR 63 mL/min (Normal) Comments: Non- GFR Calc CREAT,SERUM 0.94 mg/dL (Normal) Range: 0.55-1.20 Comments: The validity of the calculated GFR AND GFRAA in patients over70 years has not been determined. Clinical correlation isessential. BUN 35 mg/dL (Abnormal) Range: 7-18 GLU 84 mg/dL (Normal) Range: 70-110 71-Ikc-276716:37 Ferritin Comments: Serial Specimen #1, #2 or #3? 1Is Patient Taking Vitamins or Folic Acid Supplements? [facility] [address] [place], [address] FERRITIN 80 ng/mL (Normal) Range: 8-252 73-Vun-923762:37 Folates, (Folic Acid) Comments: Serial Specimen #1, #2 or #3? 1Is Patient Taking Vitamins or Folic Acid Supplements? [facility] [address] [place], [address] FOLATES 63.40 ng/mL (Abnormal) Range: 3.1-17.5 06-Wnp-661836:37 Iron Comments: Serial Specimen #1, #2 or #3? 1Is Patient Taking Vitamins or Folic Acid Supplements? [facility] [address] [place], [address] IRON 71 ug/dL (Normal) Range: 50-170 57-Swg-843485:37 Iron Binding Capacity,Total Comments: Serial Specimen #1, #2 or #3? 1Is Patient Taking Vitamins or Folic Acid Supplements? [facility] [address] [place], [address] TIBC 335 ug/dL (Normal) Range: 250-450 59-Cbc-552818:37 LDH 162 U/L (Normal) Comments: Serial Specimen #1, #2 or #3? 1Is Patient Taking Vitamins or Folic Acid Supplements? [facility] [address] [place], [address] Range: 84-246 32-Kzr-988405:37 Uric Acid Comments: Serial Specimen #1, #2 or #3? 1Is Patient Taking Vitamins or Folic Acid Supplements? [facility] [address] [place], [address] URIC 4.5 mg/dL (Normal) Range: 2.6-6.0 39-Rad-925532:37 Vitamin B12 1077 pg/mL (Abnormal) Comments: [facility] [address] [place], [address] Range: 211-911 56-Bsd-363088:36 CBC W/Diff, Auto - EPLAB Comments: At [facility] Medical Oncologypatients receive CBC w/auto Differential ONLY. Physicianwill place an order for a manual differential or Pathologistreview at his discretion. [facility]. [address] [place] [address] INTERNATIONAL RELATIONS PROFESSOR: JOSE KOHLI DO PH:[phone] [address] Hospital [address] [place], [id number] Absolute Lymph 1.97 {X10_3/uL} (Normal) Range: 0.83-4.51 Absolute Neut 2.2 {X10_3/uL} (Normal) Range: 2.0-7.7 BASO% 1.9 % (Abnormal) Range: 0-1 EO% 4.5 % (Normal) Range: 0-5 MONO% 8.1 % (Normal) Range: 0-10 LY% 40.9 % (Normal) Range: 19-41 NEUT% 44.6 % (Abnormal) Range: 47-70 MPV 7.3 fL (Normal) Range: 6.2-12.0 PLT 216 K/mm3 (Normal) Range: 150-450 RDW 12.2 % (Normal) Range: 11.6-14.6 MCHC 33.1 g/dL (Normal) Range: 32-36 MCH 30.6 pg (Normal) Range: 27.0-32.0 MCV 92.4 fL (Normal) Range: 81-99 HCT 34.2 % (Abnormal) Range: 37-47 HGB 11.3 g/dL (Abnormal) Range: 12.0-15.0 RBC 3.71 {M/mm3} (Abnormal) Range: 4.2-5.4 WBC 4.8 K/mm3 (Normal) Range: 4.4-11.0 :48 Vitamin D Hydroxy ([id number]) Comments: PATIENT WAS FASTINGPERFORMED BY: [facility] [facility] [id number] Vitamin D, 25-Hydroxy 32.8 ng/mL (Normal) Range: 30.0-100.0 Comments: Vitamin D deficiency has been defined by the [facility] and an Endocrine Society practice guideline as alevel of serum 25-OH vitamin D less than 20 ng/mL (1,2).The Endocrine Society went on to further define vitamin Dinsufficiency as a level between 21 and 29 ng/mL (2).1. IOM ([place] [employer]). 2010. Dietary reference intakes for calcium and D. [place]: The National Academies Press.2. Jose Carlos MF, Flip [place], David ROME, et al. Evaluation, treatment, and prevention of vitamin D deficiency: an Endocrine Society clinical practice guideline. JCEM. 2010; 96(7):1911-30. :48 CBC with auto diff Comments: PATIENT WAS FASTINGPERFORMED BY: [facility] [address]arlakelin[address] [facility] [id number] Information: [id number] ([id number]) Immature Grans (Abs) 0.0 {x10E3/uL} (Normal) Range: 0.0-0.1 Immature Granulocytes 0 % (Normal) Baso (Absolute) 0.1 {x10E3/uL} (Normal) Range: 0.0-0.2 Eos (Absolute) 0.1 {x10E3/uL} (Normal) Range: 0.0-0.4 Monocytes(Absolute) 0.4 {x10E3/uL} (Normal) Range: 0.1-0.9 Lymphs (Absolute) 2.1 {x10E3/uL} (Normal) Range: 0.7-3.1 Neutrophils (Absolute) 2.1 {x10E3/uL} (Normal) Range: 1.4-7.0 Basos 1 % (Normal) Eos 3 % (Normal) Monocytes 9 % (Normal) Lymphs 44 % (Normal) Neutrophils 43 % (Normal) Platelets 231 {x10E3/uL} (Normal) Range: 150-379 RDW 13.3 % (Normal) Range: 12.3-15.4 MCHC 33.2 g/dL (Normal) Range: 31.5-35.7 MCH 30.1 pg (Normal) Range: 26.6-33.0 MCV 91 fL (Normal) Range: 79-97 Hematocrit 33.7 % (Abnormal) Range: 34.0-46.6 Hemoglobin 11.2 g/dL (Normal) Range: 11.1-15.9 RBC 3.72 {x10E6/uL} (Abnormal) Range: 3.77-5.28 WBC 4.8 {x10E3/uL} (Normal) Range: 3.4-10.8 :48 METABOLIC PANEL, COMPREHENSIVE Comments: PATIENT WAS FASTINGPERFORMED BY: [facility]ty[facility] [facility] [id number] ([id number]) ALT (SGPT) 10 [iU]/L (Normal) Range: 0-32 AST (SGOT) 22 [iU]/L (Normal) Range: 0-40 Alkaline Phosphatase, S 42 [iU]/L (Normal) Range: 39-117 Bilirubin, Total 0.3 mg/dL (Normal) Range: 0.0-1.2 A/G Ratio 1.8 (Normal) Range: 1.1-2.5 Globulin, Total 2.3 g/dL (Normal) Range: 1.5-4.5 Albumin, Serum 4.1 g/dL (Normal) Range: 3.6-4.8 Protein, Total, Serum 6.4 g/dL (Normal) Range: 6.0-8.5 Calcium, Serum 9.3 mg/dL (Normal) Range: 8.7-10.3 Carbon Dioxide, Total 23 mmol/L (Normal) Range: 18-29 Chloride, Serum 105 mmol/L (Normal) Range: 97-108 Potassium, Serum 4.3 mmol/L (Normal) Range: 3.5-5.2 Sodium, Serum 144 mmol/L (Normal) Range: 134-144 BUN/Creatinine Ratio 26 (Normal) Range: 11-26 eGFR If Africn Am 61 mL/min/1.73 (Normal) eGFR If NonAfricn Am 53 mL/min/1.73 (Abnormal) Creatinine, Serum 1.07 mg/dL (Abnormal) Range: 0.57-1.00 BUN 28 mg/dL (Abnormal) Range: 8-27 Glucose, Serum 92 mg/dL (Normal) Range: 65-99 :48 LIPID PANEL (73015) Comments: PATIENT WAS FASTINGPERFORMED BY: [employer] [facility] [id number] LDL/HDL Ratio 1.2 {ratio_units} (Normal) Range: 0.0-3.2 Comments: LDL/HDL Ratio Men Women 1/2 Avg.Risk 1.0 1.5 Av g.Risk 3.6 3.2 2X Avg.Risk 6.2 5.0 3X Avg.Risk 8.0 6.1 LDL Cholesterol Calc 76 mg/dL (Normal) Range: 0-99 VLDL Cholesterol Tk 26 mg/dL (Normal) Range: 5-40 HDL Cholesterol 63 mg/dL (Normal) Comments: According to ATP-III Guidelines, HDL-C >59 mg/dL is considered anegative risk factor for CHD. Triglycerides 131 mg/dL (Normal) Range: 0-149 Cholesterol, Total 165 mg/dL (Normal) Range: 100-199 :48 MICROALBUMIN: CREATININE RATIO Comments: PATIENT WAS FASTINGPERFORMED BY: [employer] [facility] [id number] ([id number]) AND (31846) Microalb/Creat Ratio 64.2 {mg/g_creat} (Abnormal) Range: 0.0-30.0 Microalbumin, Urine 46.3 ug/mL (Abnormal) Range: 0.0-17.0 Creatinine, Urine 72.1 mg/dL (Normal) Range: 15.0-278.0 :48 Hemoglobin Glyclated (HGB A1C) Comments: PATIENT WAS FASTINGPERFORMED BY: [employer] [facility] [id number] (17479) Hemoglobin A1c 5.7 % (Abnormal) Range: 4.8-5.6 Comments: . Pre-diabetes: 5.7 - 6.4 Diabetes: >6.4 Glycemic control for adults with diabetes: <7.0 43-Zhs-210070:28 CBC W/Diff, Auto - EPLAB Comments: At [facility] Outpatient [facility] Medical Oncologypatients receive CBC w/auto Differential ONLY. Physicianwill place an order for a manual differential or Pathologistreview at his discretion. [facility]. [address] [place] [address] INTERNATIONAL RELATIONS PROFESSOR: JOSE KOHLI DO PH:[phone] performed at:[facility] [address] [place], [place] [id number] ; handled by evgeny Absolute Lymph 1.89 {X10_3/uL} (Normal) Range: 0.83-4.51 Absolute Neut 2.9 {X10_3/uL} (Normal) Range: 2.0-7.7 BASO% 1.6 % (Abnormal) Range: 0-1 EO% 3.4 % (Normal) Range: 0-5 MONO% 6.1 % (Normal) Range: 0-10 LY% 35.1 % (Normal) Range: 19-41 NEUT% 53.8 % (Normal) Range: 47-70 MPV 7.4 fL (Normal) Range: 6.2-12.0 PLT 225 K/mm3 (Normal) Range: 150-450 RDW 12.7 % (Normal) Range: 11.6-14.6 MCHC 34.0 g/dL (Normal) Range: 32-36 MCH 30.0 pg (Normal) Range: 27.0-32.0 MCV 88.3 fL (Normal) Range: 81-99 HCT 32.0 % (Abnormal) Range: 37-47 HGB 10.9 g/dL (Abnormal) Range: 12.0-15.0 RBC 3.62 {M/mm3} (Abnormal) Range: 4.2-5.4 WBC 5.4 K/mm3 (Normal) Range: 4.4-11.0 :56 CBC W/Diff, Auto - EPLAB Only Comments: At [facility] Out[facility] Medical Oncologypatients receive CBC w/auto Differential ONLY. Physicianwill place an order for a manual differential or Pathologistreview at his discretion. [facility]. [address] [place] [address] INTERNATIONAL RELATIONS PROFESSOR: JOSE KOHLI DO PH:[phone] performed at:[facility] [address] [place] [address] Absolute Neut 2.6 {X10_3/uL} (Normal) Range: 2.0-7.7 BASO% 1.4 % (Abnormal) Range: 0-1 EO% 3.1 % (Normal) Range: 0-5 MONO% 7.2 % (Normal) Range: 0-10 LY% 36.2 % (Normal) Range: 19-41 NEUT% 52.1 % (Normal) Range: 47-70 MPV 7.7 fL (Normal) Range: 6.2-12.0 PLT 209 K/mm3 (Normal) Range: 150-450 RDW 12.2 % (Normal) Range: 11.6-14.6 MCHC 33.7 g/dL (Normal) Range: 32-36 MCH 29.7 pg (Normal) Range: 27.0-32.0 MCV 88.1 fL (Normal) Range: 81-99 HCT 33.2 % (Abnormal) Range: 37-47 HGB 11.2 g/dL (Abnormal) Range: 12.0-15.0 RBC 3.76 {M/mm3} (Abnormal) Range: 4.2-5.4 WBC 5.1 K/mm3 (Normal) Range: 4.4-11.0 :27 Serum Creatinine AND GFR Comments: Test performed at:[facility] [address] [place] [address] EST GFR - AA 62 mL/min (Normal) EST GFR 51 mL/min (Abnormal) CREAT,SERUM 1.12 mg/dL (Normal) Range: 0.55-1.20 Comments: Please note revised CREATININE reference range /22/2015. 4-Zpf-319461:38 CBC W/Diff, Auto - EPLAB Only Comments: At [facility] Outpatient [facility] Medical Oncologypatients receive CBC w/auto Differential ONLY. Physicianwill place an order for a manual differential or Pathologistreview at his discretion. [facility] OUTPATIENT [facility]. [address] [place] [address] INTERNATIONAL RELATIONS PROFESSOR: JOSE KOHLI DO PH:[phone] performed at:[facility] [address] [place], [place] [id number] Absolute Neut 3.0 {X10_3/uL} (Normal) Range: 2.0-7.7 BASO% 1.6 % (Abnormal) Range: 0-1 EO% 2.1 % (Normal) Range: 0-5 MONO% 7.3 % (Normal) Range: 0-10 LY% 38.2 % (Normal) Range: 19-41 NEUT% 50.9 % (Normal) Range: 47-70 MPV 8.3 fL (Normal) Range: 6.2-12.0 PLT 202 K/mm3 (Normal) Range: 150-450 RDW 12.7 % (Normal) Range: 11.6-14.6 MCHC 33.3 g/dL (Normal) Range: 32-36 MCH 29.5 pg (Normal) Range: 27.0-32.0 MCV 88.4 fL (Normal) Range: 81-99 HCT 34.2 % (Abnormal) Range: 37-47 HGB 11.4 g/dL (Abnormal) Range: 12.0-15.0 RBC 3.87 {M/mm3} (Abnormal) Range: 4.2-5.4 WBC 5.8 K/mm3 (Normal) Range: 4.4-11.0 53-Udg-719748:12 FLURESCNT ANTIB SCRN EA Comments: PATIENT WAS FASTINGPERFORMED BY: [facility] [id number] Information: [id number] (83994) celiac profile Immunoglobulin A, Qn, Serum 119 mg/dL (Normal) Range: 91-414 Endomysial Antibody IgA Negative (Normal) t-Transglutaminase (tTG) IgG <2 U/mL (Normal) Range: 0-5 Comments: Negative 0 - 5 Weak Positive 6 - 9 Positive >9 t-Transglutaminase (tTG) IgA <2 U/mL (Normal) Range: 0-3 Comments: Negative 0 - 3 Weak Positive 4 - 10 Positive >10 . Tissue Transglutaminase (tTG) has been identified as the endomysial antigen. Studies have demonstr- ated that endomysial IgA antibo dies have over 99% specificity for gluten sensitive enteropathy. Deamidated Gliadin Abs, IgG 3 {units} (Normal) Range: 0-19 Comments: Negative 0 - 19 Weak Positive 20 - 30 Moderate to Strong Positive >30 Deamidated Gliadin Abs, IgA 3 {units} (Normal) Range: 0-19 Comments: Negative 0 - 19 Weak Positive 20 - 30 Moderate to Strong Positive >30 65-Uff-873912:12 IMMUNOASSAY, ANALYTE Comments: PATIENT WAS FASTINGPERFORMED BY: [facility] [id number] (NON-INFECT) (73066) celiac profile Mitochondrial (M2) Antibody <20.0 {Units} (Normal) Range: 0.0-20.0 Comments: Negative 0.0 - 20.0 Equivocal 20.1 - 24.9 Positive >24.9 . Mitochondrial (M2) Antibodies are found in 90-96% of patients with primary biliary cirrhosis. 70-Len-560124:12 IGA/IGD/IGG/IGM-EACH (70873) Comments: PATIENT WAS FASTINGPERFORMED BY: [employer] [facility] [facility] [id number] Immunoglobulin E, Total 2 {IU/mL} (Normal) Range: 0-100 Immunoglobulin M, Qn, Serum 72 mg/dL (Normal) Range: 40-230 Immunoglobulin G, Qn, Serum 884 mg/dL (Normal) Range: 700-1600 65-Bmy-983493:12 METABOLIC PANEL, COMPREHENSIVE Comments: PATIENT WAS FASTINGPERFORMED BY: [facility] [id number] (04527) ALT (SGPT) 12 [iU]/L (Normal) Range: 0-32 AST (SGOT) 22 [iU]/L (Normal) Range: 0-40 Alkaline Phosphatase, S 50 [iU]/L (Normal) Range: 39-117 Bilirubin, Total 0.5 mg/dL (Normal) Range: 0.0-1.2 A/G Ratio 2.0 (Normal) Range: 1.1-2.5 Globulin, Total 2.2 g/dL (Normal) Range: 1.5-4.5 Albumin, Serum 4.3 g/dL (Normal) Range: 3.6-4.8 Protein, Total, Serum 6.5 g/dL (Normal) Range: 6.0-8.5 Calcium, Serum 9.2 mg/dL (Normal) Range: 8.7-10.3 Carbon Dioxide, Total 23 mmol/L (Normal) Range: 18-29 Chloride, Serum 105 mmol/L (Normal) Range: 97-108 Potassium, Serum 4.3 mmol/L (Normal) Range: 3.5-5.2 Sodium, Serum 143 mmol/L (Normal) Range: 134-144 BUN/Creatinine Ratio 27 (Abnormal) Range: 11-26 eGFR If Africn Am 63 mL/min/1.73 (Normal) eGFR If NonAfricn Am 55 mL/min/1.73 (Abnormal) Creatinine, Serum 1.04 mg/dL (Abnormal) Range: 0.57-1.00 BUN 28 mg/dL (Abnormal) Range: 8-27 Glucose, Serum 94 mg/dL (Normal) Range: 65-99 86-Hqr-188409:12 LIPID PANEL (08277) Comments: PATIENT WAS FASTINGPERFORMED BY: [facility] Jvtkps0228 [facility] [id number] LDL/HDL Ratio 1.2 {ratio_units} (Normal) Range: 0.0-3.2 Comments: LDL/HDL Ratio Men Women 1/2 Avg.Risk 1.0 1.5 Av g.Risk 3.6 3.2 2X Avg.Risk 6.2 5.0 3X Avg.Risk 8.0 6.1 LDL Cholesterol Calc 77 mg/dL (Normal) Range: 0-99 VLDL Cholesterol Tk 28 mg/dL (Normal) Range: 5-40 HDL Cholesterol 63 mg/dL (Normal) Comments: According to ATP-III Guidelines, HDL-C >59 mg/dL is considered anegative risk factor for CHD. Triglycerides 141 mg/dL (Normal) Range: 0-149 Cholesterol, Total 168 mg/dL (Normal) Range: 100-199 4-Fyt-772621:25 HgA1C , Office (98474) HgA1C , Office 5.8 % (Normal) Range: 4.6 - 7.1 :0 COLON BIOPSY (CHOOSE See Note (Normal) Comments: Test performed at:[facility] [address] [place], [place] [id number] 4 SITE) Comments: Patient: LUPE LOPEZ : 1945 (69/F) Acct Num: [id number] Phys: Samm Boo Unit Num: [id number] Loc: LABSPEC Specimen: [id number] Received: 09/13/14 - 1609 Spec Type: C CHASE BX TISSUES TISSUES: GROSS DESCRIPTION Received is one container labeled with the patient name and designated biopsy polyp at mid transverse. The specimen consists of one irreg ular fragment of light gonzalez soft tissue that measures 0.3 x 0.2 x 0.1 cm. The specimen is totallysubmitted in one cassette. / AM: 09/17/14 TC:5 CPT: 36940 HEADER OPERATION: Colonoscopy with biopsy PRE-OP DIAGNOSIS: Anemia TISSUE SUBMITTED: Biopsy polyp - mid transverse - rule out adenoma MICROSCOPIC DIAGNOSIS Mid transverse colon polyp, biopsy: Tubular adenoma. AM: 09/17 Signed Jose Kohli 09/17/14 <signature on file> :58 CBC W/Diff, Auto - EPLAB Only Comments: At [facility] Outpatient [facility] Medical Oncologypatients receive CBC w/auto Differential ONLY. Physicianwill place an order for a manual differential or Pathologistreview at his discretion. [facility] OUTPATIENT [facility]. [address] [place] [address] INTERNATIONAL RELATIONS PROFESSOR: JOSE KOHLI DO PH:[phone] performed at:[facility] [address] [place], [place] [id number] Absolute Neut 1.6 {X10_3/uL} Range: 2.0-7.7 (Abnormal) BASO% 2.1 % (Abnormal) Range: 0-1 EO% 3.2 % (Normal) Range: 0-5 MONO% 8.7 % (Normal) Range: 0-10 LY% 45.7 % (Abnormal) Range: 19-41 NEUT% 40.3 % (Abnormal) Range: 47-70 MPV 7.2 fL (Normal) Range: 6.2-12.0 PLT 205 K/mm3 (Normal) Range: 150-450 RDW 12.6 % (Normal) Range: 11.6-14.6 MCHC 33.9 g/dL (Normal) Range: 32-36 MCH 30.3 pg (Normal) Range: 27.0-32.0 MCV 89.5 fL (Normal) Range: 81-99 HCT 32.2 % (Abnormal) Range: 37-47 HGB 10.9 g/dL (Abnormal) Range: 12.0-15.0 RBC 3.60 {M/mm3} Range: 4.2-5.4 (Abnormal) WBC 4.1 K/mm3 (Abnormal) Range: 4.4-11.0 : BONE MARROW BIOPSY See Note (Normal) Comments: Test performed at:[facility] [address] [place] [address] 00 Comments: Patient: LUPE LOPEZ : 1945 (69/F) Acct Num: [id number] Phys: Evgeny Farmer Unit Num: [id number] Loc: [facility] Specimen: [id number] Received: 07/31/14 - 1215 Spec Type: BMB TISSUES TISSUES: ADDENDUM Addendum Number 1 CYTOGENETICS REPORT FROM [employer] [facility] INTERPRETATION AND COMMENTS: Karyotype: 46,XX[20] A normal female karyotype w as observed in twenty metaphases analyzed. Please see complete report in e-chart or EMR for further details Addendum Signed [facility] 5 <signature on file> BONE MARROW GROSS A - Received is a container labeled with the patient's name and designated lefthip. The specimen consists of a piece of gonzalez bone measur ing 1.5 cm in length and 0.2 cm in diameter. The specimen is totally submitted in one cassette after decalcification. B - Received labeled with the patient's name and designated bone marrow aspirate left hip is a specimen that consists of approximately 9 cc of bloody fluid that on filtration yields multiple minute fragments of light gonzalez soft tissue measuring in aggregate 2.5 x 2 x < 0.1 cm. T he specimen is totally submitted in one cassette. C - Also received are 15 unstained and 1 stained slides. The unstained slides are submitted for appropriate staining. Also received are 2 green t op tubes which are sent to [facility] for flow cytometry and cytogenetics. / AM: 07/31/14 TC:5 CPT: 01423, 92254, 03499 x2, 39883 x3, 67795 BONE MARROW STUDY CBC DATE: 07/31/14 WBC 4.1; RBC 3.60; HGB 10.9; HCT 32.2; MCV 89.5; RDW 12.6; PLTS 205,000. SEGS 4.3%; LYMPHS 45,7%; MONOS 8.7%; EOS 3.2%; BASOS 2.1%. PERIPHERAL SMEAR: Submitted. RBC: Normocytic anemia. WBC: Neutro penia. PLTS: Normomorphic. BONE MARROW ASPIRATE DIFFERENTIAL: 200 cell count. Blasts % (normal 0-2): 2 Promyelocytes % (normal 1-5): 1 Myelocytes and metamyelocytes % (normal 17-41): 24 B ands and Segs % (normal 15-32): 26 Eos % (normal 1-6): 2 Basos % (normal 0-1): 0 Monocytes % (normal 0-4): 1 Erythroid Precursors % (no rmal 17-35): 32 Lymphocytes % (normal 7-13): 11 Plasma Cells % (normal 0-2): 1 ASPIRATE FINDINGS: Site: Left hip. Spicular / Cellular M/E ratio: 1.75 (Normal 1.5 - 4.0) Megakaryocytes : Normomorphic. Erythropoiesis: Normoblastic. Granulopoiesis: Progressive. CORE BIOPSY FINDINGS: Site: Left hip. Adequacy: Adequate. Cellularity %: Variable 5-30% M/E ratio: Within cesia l limits. Megakaryocytes: Adequate Bony trabeculae: Within normal limits. Granulomas: None. Lymphoid aggregate(s): None. Atypical infiltrate(s): None. ASPIRATE CLOT FINDINGS: Site: Left h ip. Marrow Particles: Many. Cellularity %: 25% M/E ratio: Within normal limits. Megakaryocytes: Adequate. Granuloma(s): None. Lymphoid aggregate(s): Multiple, minute and polytypic by IHC. Atypical infiltrate(s): See Above. SPECIAL STAINS (with matched controls): Iron: Stainable iron present. Reticulin: Within normal limits. PAS: Highlights myeloid elements and megakaryocytes. COMMENT IHC ([id number]) supports the above diagnosis. Flow cytometry study from [facility] shows no phenotypic evidence of excess blasts, myeloid dysmaturation or non-Hodgkin lymphoma. Cytogenetic s is pendingat this time. Case has been reviewed in consultation with Dr. Nguyen who concurs with the abovediagnosis. IDC:SJ BONE MARROW DIAGNOSIS Bone marrow biopsy, clot and aspiration (pa rts A-C): Variable cellular bone marrow (0-30%). Multiple minute lymphoid aggregates in clot section (polytypic by IHC). Peripheral anemia and neutropenia. AM: 08/02/14 HEADER OPERATION: Bone marrow biopsy PRE-OPERATIVE DIAGNOSIS: Anemia TISSUE SUBMITTED: A - Core, B - Clot, C - Smears and send outs Signed [facility] 08/06/14 <signature on file> : IMMUNOHISTOCHEMISTRY See Note (Normal) Comments: Test performed at:[facility] [address] [place] [address] 00 Comments: Patient: LUPE LOPEZ : 1945 (69/F) Acct Num: [id number] Phys: Evgeny Farmer Unit Num: [id number] Loc: MARY Specimen: [id number] Received: 08/01/14 - 1158 Spec Type: IMMUN O TISSUES TISSUES: SPECIMEN INFORMATION: Tissue Source: Bone marrow biopsy and clot Clinical Info: Anemia Specimen Number: [id number] A AND B CPT code: 84072, 52763 x19 METHOD OLOGY: Deparaffinized sections of prefer/formalin-fixed tissue or PAP/DQ stained slides are incubated with monoclonal/polyclonal antibodies/oligonucleotide probes. Localization is made via biotin guanakito e immunoperoxidase method. Appropriate controls are performed and reacted as expected. Results on target cell population are indicated in the following table: RESULTS: ANTIBODY / CLONE RESULT Block A CD3 (LN10/PS1) negative CD5 (4C7/SP10) negative CD10 (56C6) negative CD20 (MJ1/L26) negative CD23 (1B12) negative CD45 (X16/99/ RP2/18) positive CD79a (11E3) negative BCL-2 (BCL2/100/D5) negative BCL- 6 (LN22/YN410X/A8) negative Cyclin D 1/BCL-1 (SP4) negative Block B CD3 (LN10/PS1) positive CD5 (4C7/SP10) positive CD10 (56C6) negative CD20 (MJ1/L26) negative CD23 (1B12) negative CD45 (X16/99/ RP2/18) positive CD79a (11E3) negative BCL-2 (BCL2/100/D5) positive BCL-6 (LN22/KK353Q/A8) nega tive Cyclin D1/BCL-1 (SP4) negative These tests were developed and their performance characteristics determined by [facility]. They may not have been cleared or approved by the U.S. Food and Drug Administration. The FDA has determined that such clearance or approval is not necessary. INTERPRETATION: A. Bone marrow biopsy: Polytypic lymphoid aggregates. B. Bone marrow clot: Polytypic lymphoid aggregates. Comment: There is no evidence of lymphoma. AM:jeniffer 08/02/14 PHYSICIAN AND INSTITUTION [place] [address] Signed [facility] 08/06/14 <signature on file> 0-Roi-825766:59 CBC W/Diff, Auto - EPLAB Only Comments: At [facility] Outpatient [facility] Medical Oncologypatients receive CBC w/auto Differential ONLY. Physicianwill place an order for a manual differential or Pathologistreview at his discretion. [facility]. [address] [place] [address] INTERNATIONAL RELATIONS PROFESSOR: JOSE KOHLI DO PH:[phone] performed at:[facility] [address] [place], [place] [phone] Absolute Neut 2.3 {X10_3/uL} (Normal) Range: 2.0-7.7 BASO% 2.0 % (Abnormal) Range: 0-1 EO% 1.5 % (Normal) Range: 0-5 MONO% 9.6 % (Normal) Range: 0-10 LY% 43.7 % (Abnormal) Range: 19-41 NEUT% 43.2 % (Abnormal) Range: 47-70 MPV 7.0 fL (Normal) Range: 6.2-12.0 PLT 207 K/mm3 (Normal) Range: 150-450 RDW 12.9 % (Normal) Range: 11.6-14.6 MCHC 33.9 g/dL (Normal) Range: 32-36 MCH 30.7 pg (Normal) Range: 27.0-32.0 MCV 90.8 fL (Normal) Range: 81-99 HCT 31.1 % (Abnormal) Range: 37-47 HGB 10.5 g/dL (Abnormal) Range: 12.0-15.0 RBC 3.42 {M/mm3} (Abnormal) Range: 4.2-5.4 WBC 5.2 K/mm3 (Normal) Range: 4.4-11.0 90-Geo-78168:23 CBC W/Diff, Auto - EPLAB Only Comments: At [facility] patientsreceive CBC w/auto Differential ONLY. Physician will placean order for a manual differential or Pathologist review athis discretion. [facility]. [address] [place] [address] INTERNATIONAL RELATIONS PROFESSOR: JOSE KOHLI DO PH:[phone] performed at:[facility] [address] [place], [place] [id number] Absolute Neut 2.0 {X10_3/uL} (Normal) Range: 2.0-7.7 BASO% 1.7 % (Abnormal) Range: 0-1 EO% 2.0 % (Normal) Range: 0-5 MONO% 9.1 % (Normal) Range: 0-10 LY% 37.6 % (Normal) Range: 19-41 NEUT% 49.6 % (Normal) Range: 47-70 MPV 7.1 fL (Normal) Range: 6.2-12.0 PLT 215 K/mm3 (Normal) Range: 150-450 RDW 12.4 % (Normal) Range: 11.6-14.6 MCHC 33.4 g/dL (Normal) Range: 32-36 MCH 30.1 pg (Normal) Range: 27.0-32.0 MCV 89.9 fL (Normal) Range: 81-99 HCT 32.0 % (Abnormal) Range: 37-47 HGB 10.7 g/dL (Abnormal) Range: 12.0-15.0 RBC 3.56 {M/mm3} (Abnormal) Range: 4.2-5.4 WBC 4.0 K/mm3 (Abnormal) Range: 4.4-11.0 33-Tfg-65702:23 Comprehensive Metabolic Profil Comments: Serial Specimen #1, #2 or #3? 1Test performed at:[facility] [address] [place], [place] [id number] GAP 6 (Normal) Range: 5-15 CO2 30.0 mmol/L (Normal) Range: 21.0-32.0 CL 104 mmol/L (Normal) Range: 98-107 K 4.2 mmol/L (Normal) Range: 3.5-5.1 NA 140 mmol/L (Normal) Range: 136-145 T BILI 0.50 mg/dL (Normal) Range: 0.00-4.00 ALT 16 U/L (Normal) Range: 12-78 ALK P 57 U/L (Normal) Range: 50-136 AST 19 U/L (Normal) Range: 15-37 CA 9.2 mg/dL (Normal) Range: 8.5-10.1 A/G 1.2 {RATIO} (Normal) Range: 0.9-2.4 GLOB 3.1 g/dL (Normal) Range: 2.7-4.2 ALB 3.8 g/dL (Normal) Range: 3.4-5.0 T PROT 6.9 g/dL (Normal) Range: 6.4-8.2 BUN/CRE 33.0 {RATIO} (Abnormal) Range: 10-20 EST GFR - AA 70 mL/min (Normal) EST GFR 58 mL/min (Abnormal) CREAT,SERUM 1.0 mg/dL (Normal) Range: 0.6-1.0 BUN 33 mg/dL (Abnormal) Range: 7-18 GLU 78 mg/dL (Normal) Range: 70-110 :23 Ferritin Comments: Serial Specimen #1, #2 or #3? 1Test performed at:[facility] [address] [place] [address] FERRITIN 255 ng/mL (Abnormal) Range: 8-252 :23 Iron Comments: Serial Specimen #1, #2 or #3? 1Test performed at:[facility] [address] [place] [address] IRON 72 ug/dL (Normal) Range: 50-170 :23 Iron Binding Capacity,Total Comments: Serial Specimen #1, #2 or #3? 1Test performed at:[facility] [address] [place] [address] TIBC 320 ug/dL (Normal) Range: 250-450 :23 LDH 176 U/L (Normal) Comments: Serial Specimen #1, #2 or #3? 1Test performed at:[facility] [address] [place] [address] Range: 87-241 :23 Uric Acid Comments: Serial Specimen #1, #2 or #3? 1Test performed at:[facility] [address] [place] [address] URIC 5.2 mg/dL (Normal) Range: 2.6-6.0 :45 Copper, Serum or Plasma Comments: Test performed at:[facility] [address] [place] [address] COPPER 112 ug/dL (Normal) Range: 72-166 Comments: Detection Limit = 5Performed at: [facility] SussexVerfjj[address] [place], [place] [address] Director: Scot Nuñez PhD, Phone: [phone] at: [facility] LabCoAmy [place] [address] [place], [place] [address]Eww Director: Satish Mayer MD, Phone: [phone] 25-Jun-20149:45 Lead, Blood Adult 16+yrs Comments: Test performed at:[facility] [address] [facility] [place] [address] LEAD *Form (Normal) Comments: None Detected Environmental Exposure: WHO Recommendation <20 Occupational Exposure: OSHA Lead Std 40 NIKI 30 Detection Limit = 1 6-Lee-126199:43 Comprehensive Metabolic Profil Comments: Serial Specimen #1, #2 or #3? 1Is Patient Taking Vitamins or Folic Acid Supplements? NTest performed at:[facility] [address] [facility]. [place], [place] [id number] GAP 6 (Normal) Range: 5-15 CO2 30.0 mmol/L (Normal) Range: 21.0-32.0 CL 105 mmol/L (Normal) Range: 98-107 K 4.0 mmol/L (Normal) Range: 3.5-5.1 NA 141 mmol/L (Normal) Range: 136-145 T BILI 0.40 mg/dL (Normal) Range: 0.00-4.00 ALT 15 U/L (Normal) Range: 12-78 ALK P 63 U/L (Normal) Range: 50-136 AST 21 U/L (Normal) Range: 15-37 CA 9.4 mg/dL (Normal) Range: 8.5-10.1 A/G 1.2 {RATIO} (Normal) Range: 0.9-2.4 GLOB 3.2 g/dL (Normal) Range: 2.7-4.2 ALB 3.9 g/dL (Normal) Range: 3.4-5.0 T PROT 7.1 g/dL (Normal) Range: 6.4-8.2 BUN/CRE 27.0 {RATIO} (Abnormal) Range: 10-20 EST GFR - AA 70 mL/min (Normal) EST GFR 58 mL/min (Abnormal) CREAT,SERUM 1.0 mg/dL (Normal) Range: 0.6-1.0 BUN 27 mg/dL (Abnormal) Range: 7-18 GLU 86 mg/dL (Normal) Range: 70-110 [id number] Direct Antiglobulin Diann YUVAL Comments: Test performed at:[facility] [id number] [place] [address] DIRECT DIANN= NEG w/POLYSPECIFIC (Normal) [id number] Erythropoietin Comments: Is Patient Fasting? NTest performed at:[facility] [id number] [place] [address] ERYTHROP [id number] 24.8 m[iU]/mL (Abnormal) Range: 2.6-18.5 [id number] Ferritin Comments: Serial Specimen #1, #2 or #3? 1Is Patient Taking Vitamins or Folic Acid Supplements? NTest performed at:[facility] [id number] [place] [address] FERRITIN 11 ng/mL (Normal) Range: 8-252 [id number] Folates, (Folic Acid) Comments: Serial Specimen #1, #2 or #3? 1Is Patient Taking Vitamins or Folic Acid Supplements? NTest performed at:[facility] [id number] [place] [address] FOLATES 48.80 ng/mL (Abnormal) Range: 3.1-17.5 :43 Haptoglobin Comments: Is Patient Fasting? NTest performed at:[facility] [id number] [place] [address] HAPTOGLOB 1628 224 mg/dL (Abnormal) Range: 34-200 Comments: Performed at: - [facility] [id number] Director: Scot Nuñez PhD, Phone: [phone] 3-Rhx-413332:43 THEE + Protein Elect, Serum Comments: Is Patient Fasting? NTest performed at:[facility] [address] [place] [address] NOTE: Comment (Normal) Comments: Protein electrophoresis scan will follow via computer,mail, or in flight technician delivery. THEE RESULT,S Comment: (Normal) Comments: THEE SHOWS ATYPICAL LAMBDA. A/G RATIO 1.4 (Normal) Range: 0.7-2.0 GLOBULIN, TOTAL 2.8 g/dL (Normal) Range: 2.0-4.5 M-SPIKE (Normal) Comments: Not Observed GAMMA GLOBULIN 0.9 g/dL (Normal) Range: 0.5-1.6 BETA GLOBULIN 0.9 g/dL (Normal) Range: 0.6-1.3 SKTEB-4-EDSL 0.9 g/dL (Normal) Range: 0.4-1.2 RHGRU-5-XGDB 0.3 g/dL (Normal) Range: 0.1-0.4 ALBUMIN 3.9 g/dL (Normal) Range: 3.2-5.6 IMMUNOGL M 1792 69 mg/dL (Normal) Range: 40-230 IMMUNO A 1784 133 mg/dL (Normal) Range: 91-414 IMMUNO G 1776 959 mg/dL (Normal) Range: 700-1600 PROTEIN,TOTAL 6.7 g/dL (Normal) Range: 6.0-8.5 :43 Iron Binding Capacity,Total Comments: Serial Specimen #1, #2 or #3? 1Is Patient Taking Vitamins or Folic Acid Supplements? NTest performed at:[facility] [address] [place] [address] TIBC 407 ug/dL (Normal) Range: 250-450 0-Jjx-099667:43 [place] Lambda Light Chains Comments: Is Patient Fasting? NTest performed at:[facility] Ttmvgwmxqz4023 [facility] [place] [address] KAPPA/LAMBDA % 1.35 (Normal) Range: 0.26-1.65 FR LAMBDA LT CH 18.72 mg/L (Normal) Range: 5.71-26.30 FR KAPPA LT CHN 25.25 mg/L (Abnormal) Range: 3.30-19.40 4-Rof-965996:43 LDH 173 U/L (Normal) Comments: Serial Specimen #1, #2 or #3? 1Is Patient Taking Vitamins or Folic Acid Supplements? NTest performed at:[facility] [address] [place] [address] Range: 87-241 6-Nle-649069:43 Retic Panel Comments: Test performed at:[facility] [address] [place] [address] IPF 2.5 % (Normal) Range: 1.0-7.9 Comments: Low PLT + Low IPF suggest a bone marrow production disorderLow PLT + high IPF suggests peripheral destruction(e.g.ITP, TTP, HIT, DIC, autoimmune) or bone marrow recoveryTrending of serial IPF measuremen ts is recommended whenevaluating for bone marrow responesValue above normal range indicates an increase in RBCcellular response from bone marrow. RET-HE 27.6 pg (Abnormal) Range: 30-35 IM RET FRACTION 5.50 % (Normal) Range: 3.00-15.90 RETIC 0.97 % (Normal) Range: 0.5-1.5 8-Fpe-856313:43 Thyroid Stim Hormone (TSH) Comments: Serial Specimen #1, #2 or #3? 1Is Patient Taking Vitamins or Folic Acid Supplements? NTest performed at:[facility] [address] [place] [address] TSH 1.87 {uIU/mL} (Normal) Range: 0.358-3.74 5-Ldz-577653:43 Uric Acid Comments: Serial Specimen #1, #2 or #3? 1Is Patient Taking Vitamins or Folic Acid Supplements? NTest performed at:[facility] [address] [place] [address] URIC 5.0 mg/dL (Normal) Range: 2.6-6.0 8-Bpn-171421:43 Vitamin B12 548 pg/mL (Normal) Comments: Test performed at:[facility] [address] [place] [address] Range: 211-911 8-Zxm-995994:42 CBC W/Diff, Auto - EPLAB Only Comments: [facility] patientsreceive CBC w/auto Differential ONLY. Physician will placean order for a manual differential or Pathologist review athis discretion. [facility]. [address] [place] [address] [place] [address] INTERNATIONAL RELATIONS PROFESSOR: JOSE KOHLI DO PH:[phone] performed at:[facility] [address] [place] [address] Absolute Neut 2.6 {X10_3/uL} (Normal) Range: 2.0-7.7 BASO% 1.8 % (Abnormal) Range: 0-1 EO% 2.1 % (Normal) Range: 0-5 MONO% 7.8 % (Normal) Range: 0-10 LY% 33.9 % (Normal) Range: 19-41 NEUT% 54.4 % (Normal) Range: 47-70 MPV 7.4 fL (Normal) Range: 6.2-12.0 PLT 236 K/mm3 (Normal) Range: 150-450 RDW 11.8 % (Normal) Range: 11.6-14.6 MCHC 35.9 g/dL (Normal) Range: 32-36 MCH 32.5 pg (Abnormal) Range: 27.0-32.0 MCV 90.5 fL (Normal) Range: 81-99 HCT 28.3 % (Abnormal) Range: 37-47 HGB 10.2 g/dL (Abnormal) Range: 12.0-15.0 RBC 3.13 {M/mm3} (Abnormal) Range: 4.2-5.4 WBC 4.8 K/mm3 (Normal) Range: 4.4-11.0 55-Puj-42167:56 METABOLIC PANEL, COMPREHENSIVE Comments: PATIENT WAS FASTINGPERFORMED BY: [facility] SussexFeskkp2073 [facility] [id number] ([id number]) ALT (SGPT) 5 [iU]/L (Normal) Range: 0-32 AST (SGOT) 17 [iU]/L (Normal) Range: 0-40 Alkaline Phosphatase, S 51 [iU]/L (Normal) Range: 39-117 Bilirubin, Total 0.4 mg/dL (Normal) Range: 0.0-1.2 A/G Ratio 1.8 (Normal) Range: 1.1-2.5 Globulin, Total 2.4 g/dL (Normal) Range: 1.5-4.5 Albumin, Serum 4.2 g/dL (Normal) Range: 3.6-4.8 Protein, Total, Serum 6.6 g/dL (Normal) Range: 6.0-8.5 Calcium, Serum 9.4 mg/dL (Normal) Range: 8.7-10.3 Carbon Dioxide, Total 24 mmol/L (Normal) Range: 18-29 Chloride, Serum 100 mmol/L (Normal) Range: 97-108 Potassium, Serum 4.1 mmol/L (Normal) Range: 3.5-5.2 Sodium, Serum 140 mmol/L (Normal) Range: 134-144 BUN/Creatinine Ratio 29 (Abnormal) Range: 11-26 eGFR If Africn Am 76 mL/min/1.73 (Normal) eGFR If NonAfricn Am 66 mL/min/1.73 (Normal) Creatinine, Serum 0.89 mg/dL (Normal) Range: 0.57-1.00 BUN 26 mg/dL (Normal) Range: 8-27 Glucose, Serum 96 mg/dL (Normal) Range: 65-99 :56 LIPID PANEL (26955) Comments: PATIENT WAS FASTINGPERFORMED BY: [facility]70 [facility] [id number] LDL/HDL Ratio 1.3 {ratio_units} (Normal) Range: 0.0-3.2 Comments: LDL/HDL Ratio Men Women 1/2 Avg.Risk 1.0 1.5 Av g.Risk 3.6 3.2 2X Avg.Risk 6.2 5.0 3X Avg.Risk 8.0 6.1 LDL Cholesterol Calc 87 mg/dL (Normal) Range: 0-99 VLDL Cholesterol Tk 22 mg/dL (Normal) Range: 5-40 HDL Cholesterol 67 mg/dL (Normal) Comments: According to ATP-III Guidelines, HDL-C >59 mg/dL is considered anegative risk factor for CHD. Triglycerides 112 mg/dL (Normal) Range: 0-149 Cholesterol, Total 176 mg/dL (Normal) Range: 100-199 :56 CBC W/AUTO DIFF WBC Comments: PATIENT WAS FASTINGPERFORMED BY: [facility] [facility] [id number] Information: [id number] (34502) Immature Grans (Abs) 0.0 {x10E3/uL} (Normal) Range: 0.0-0.1 Immature Granulocytes 0 % (Normal) Baso (Absolute) 0.0 {x10E3/uL} (Normal) Range: 0.0-0.2 Eos (Absolute) 0.0 {x10E3/uL} (Normal) Range: 0.0-0.4 Monocytes(Absolute) 0.4 {x10E3/uL} (Normal) Range: 0.1-0.9 Lymphs (Absolute) 2.1 {x10E3/uL} (Normal) Range: 0.7-3.1 Neutrophils (Absolute) 2.2 {x10E3/uL} (Normal) Range: 1.4-7.0 Basos 1 % (Normal) Eos 1 % (Normal) Monocytes 9 % (Normal) Lymphs 43 % (Normal) Neutrophils 46 % (Normal) Platelets 275 {x10E3/uL} (Normal) Range: 150-379 RDW 13.2 % (Normal) Range: 12.3-15.4 MCHC 31.9 g/dL (Normal) Range: 31.5-35.7 MCH 29.7 pg (Normal) Range: 26.6-33.0 MCV 93 fL (Normal) Range: 79-97 Hematocrit 30.1 % (Abnormal) Range: 34.0-46.6 Hemoglobin 9.6 g/dL (Abnormal) Range: 11.1-15.9 RBC 3.23 {x10E6/uL} (Abnormal) Range: 3.77-5.28 WBC 4.8 {x10E3/uL} (Normal) Range: 3.4-10.8 9-Sdg-399728:44 Protein Electro, Random Urine Comments: PATIENT WAS FASTINGPERFORMED BY: [facility]6[address] [facility] [id number] Please note: SPRCS (Normal) Comments: Protein electrophoresis scan will follow via computer, mail, orcourier delivery. M-Abhinav, % Not Observed % (Normal) Gamma Globulin, U 19.9 % (Normal) Beta Globulin, U 25.8 % (Normal) Dgcun-7-Lpehzvpz, U 12.8 % (Normal) Hippk-3-Myabneiu, U 1.3 % (Normal) Albumin, U 40.2 % (Normal) Protein,Total,Urine 13.5 mg/dL (Normal) Range: 0.0-15.0 :44 Protein Electro.,S Comments: PATIENT WAS FASTINGPERFORMED BY: [place] [id number] [facility] [id number]; will review on 05/07 appt Please note: SPRCS (Normal) Comments: Protein electrophoresis scan will follow via computer, mail, orcourier delivery. A/G Ratio 1.2 (Normal) Range: 0.7-2.0 Globulin, Total 3.0 g/dL (Normal) Range: 2.0-4.5 M-Abhinav Not Observed g/dL (Normal) Gamma Globulin 1.0 g/dL (Normal) Range: 0.5-1.6 Beta Globulin 0.8 g/dL (Normal) Range: 0.6-1.3 Omcqs-9-Sodexhrh 0.9 g/dL (Normal) Range: 0.4-1.2 Myudn-3-Uoctsnzg 0.3 g/dL (Normal) Range: 0.1-0.4 Albumin 3.7 g/dL (Normal) Range: 3.2-5.6 Protein, Total, Serum 6.7 g/dL (Normal) Range: 6.0-8.5 Written Authorization WAR (Normal) Comments: PATIENT WAS FASTINGPERFORMED BY: [facility] [facility] [id number] :44 Comments: Written Authorization Received.Authorization received from ENRIKE JAIMSE [phone] by Jyothi Boland :44 LIPID PANEL (30624) Comments: PATIENT WAS FASTINGPERFORMED BY: [facility] [facility] [id number] LDL/HDL Ratio 1.9 {ratio_units} (Normal) Range: 0.0-3.2 Comments: LDL/HDL Ratio Men Women 1/2 Avg.Risk 1.0 1.5 Av g.Risk 3.6 3.2 2X Avg.Risk 6.2 5.0 3X Avg.Risk 8.0 6.1 LDL Cholesterol Calc 116 mg/dL (Abnormal) Range: 0-99 VLDL Cholesterol Tk 34 mg/dL (Normal) Range: 5-40 HDL Cholesterol 61 mg/dL (Normal) Comments: According to ATP-III Guidelines, HDL-C >59 mg/dL is considered anegative risk factor for CHD. Triglycerides 171 mg/dL (Abnormal) Range: 0-149 Cholesterol, Total 211 mg/dL (Abnormal) Range: 100-199 8-Wrh-768299:37 FECAL OCCULT- Tubes sent home (69689) FECAL OCCULT HGB ASSAY, QUAL, 1-3 SIMULTANEOU positive (Normal) 2-Jtt-318211:44 RETICULOCYTE COUNT MANUL Comments: PATIENT WAS FASTINGPERFORMED BY: [facility] [id number] ([id number]) Reticulocyte Count 1.6 % (Normal) Range: 0.6-2.6 5-Adi-748078:44 LDH (LD) (LACTATE DEHYDROGENASE) Comments: PATIENT WAS FASTINGPERFORMED BY: [facility] [id number] (15557) LDH 207 [iU]/L (Normal) Range: 119-226 5-Eyk-696595:44 IRON BINDING CAPACITY (TIBC) Comments: PATIENT WAS FASTINGPERFORMED BY: [facility] [id number] (63443) Iron Saturation 16 % (Normal) Range: 15-55 Iron, Serum 50 ug/dL (Normal) Range: 35-155 UIBC 270 ug/dL (Normal) Range: 150-375 Iron Bind.Cap.(TIBC) 320 ug/dL (Normal) Range: 250-450 4-Rwq-405581:44 FERRITIN (85173) Comments: PATIENT WAS FASTINGPERFORMED BY: [facility] [id number] Ferritin, Serum 84 ng/mL (Normal) Range: 15-150 9-Rdn-461728:44 CBC W/AUTO DIFF WBC (65785) Comments: PATIENT WAS FASTINGPERFORMED BY: [facility] [id number] Immature Grans (Abs) 0.0 {x10E3/uL} (Normal) Range: 0.0-0.1 Immature Granulocytes 0 % (Normal) Baso (Absolute) 0.1 {x10E3/uL} (Normal) Range: 0.0-0.2 Eos (Absolute) 0.1 {x10E3/uL} (Normal) Range: 0.0-0.4 Monocytes(Absolute) 0.4 {x10E3/uL} (Normal) Range: 0.1-0.9 Lymphs (Absolute) 1.6 {x10E3/uL} (Normal) Range: 0.7-3.1 Neutrophils (Absolute) 1.7 {x10E3/uL} (Normal) Range: 1.4-7.0 Basos 2 % (Normal) Eos 1 % (Normal) Monocytes 12 % (Normal) Lymphs 42 % (Normal) Neutrophils 43 % (Normal) Platelets 343 {x10E3/uL} (Normal) Range: 150-379 RDW 15.6 % (Abnormal) Range: 12.3-15.4 MCHC 32.4 g/dL (Normal) Range: 31.5-35.7 MCH 30.4 pg (Normal) Range: 26.6-33.0 MCV 94 fL (Normal) Range: 79-97 Hematocrit 32.7 % (Abnormal) Range: 34.0-46.6 Hemoglobin 10.6 g/dL (Abnormal) Range: 11.1-15.9 RBC 3.49 {x10E6/uL} (Abnormal) Range: 3.77-5.28 WBC 3.8 {x10E3/uL} (Normal) Range: 3.4-10.8 :44 MICROALBUMIN: CREATININE RATIO Comments: PATIENT WAS FASTINGPERFORMED BY: [facility] [place] [id number] [facility] [id number] (26854) AND (17899) Microalb/Creat Ratio 21.9 {mg/g_creat} (Normal) Range: 0.0-30.0 Microalbumin, Urine 22.0 ug/mL (Abnormal) Range: 0.0-17.0 Creatinine, Urine 100.3 mg/dL (Normal) Range: 15.0-278.0 :44 Hemoglobin Glyclated (HGB A1C) Comments: PATIENT WAS FASTINGPERFORMED BY: [facility] [facility] [id number] (64159) Hemoglobin A1c 5.5 % (Normal) Range: 4.8-5.6 Comments: . Increased risk for diabetes: 5.7 - 6.4 Diabetes: >6.4 Glycemic control for adults with diabetes: <7.0 :39 Microscopic Examination Comments: PATIENT NOT FASTINGPERFORMED BY: [facility]6[address] [facility] [id number] Bacteria Few (Normal) Mucus Threads Present (Normal) Epithelial Cells (non renal) 0-10 {/hpf} (Normal) Range: 0 - 10 RBC 0-2 {/hpf} (Normal) Range: 0 - 2 WBC 6-10 {/hpf} (Abnormal) Range: 0 - 5 :37 D-Dimer (31894) Comments: PATIENT NOT FASTINGPERFORMED BY: [facility]6[address] [facility] [id number] Information: [id number] D-Dimer 0.84 {mg/L_FEU} (Abnormal) Range: 0.00-0.49 Comments: In conjunction with a non-high clinical probability assessment, anormal (<0.50 mg/L FEU) result excludes deep vein thrombosis (DVT)and pulmonary embolism (PE) with high sensitivity. :39 Vitamin D Hydroxy (35104) Comments: PATIENT NOT FASTINGPERFORMED BY: [facility] [facility] [id number] Vitamin D, 25-Hydroxy 38.7 ng/mL (Normal) Range: 30.0-100.0 Comments: Vitamin D deficiency has been defined by the [place] of[employer] and an Endocrine Society practice guideline as alevel of serum 25-OH vitamin D less than 20 ng/mL (1,2).The Endocrine Society went on to further define vitamin Dinsufficiency as a level between 21 and 29 ng/mL (2).1. IOM ([place] of [employer]). 2010. Dietary reference intakes for calcium and D. [place]: The National Academies Press.2. Jose Carlos MF, Flip NC, David ROME, et al. Evaluation, treatment, and prevention of vitamin D deficiency: an Endocrine Society clinical practice guideline. JCEM. 2010; 96(7):1911-30. 54-Mix-116787:39 Valproic Acid (83944) Comments: PATIENT NOT FASTINGPERFORMED BY: [facility] Pnvkkw[address] Brown RoadDublin [place] [id number] Valproic Acid (Depakote),S 105 ug/mL (Abnormal) Range: 50-100 Comments: Detection Limit = 4 <4 indicates None Detected . Toxicity may occur at levels of 100-500. Measurements of free unbound valproic acid may improve the assess- ment of clinical response.Patient drug level exceeds published reference range. Evaluateclinically for signs of potential toxicity. 60-Qfa-509547:39 VITAMIN B-12 (CYANOCOBALAMIN) Comments: PATIENT NOT FASTINGPERFORMED BY: [facility] [address]ut[address] [place] [place] [id number] (46231) Vitamin B12 1017 pg/mL (Abnormal) Range: 211-946 87-Ppf-479133:39 FERRITIN (22883) Comments: PATIENT NOT FASTINGPERFORMED BY: [facility] [address]axhd[address] [place] [id number] Ferritin, Serum 77 ng/mL (Normal) Range: 15-150 59-Wum-107353:39 IRON (82654) Comments: PATIENT NOT FASTINGPERFORMED BY: [facility] [address]zznxy[address] [place] Search ToolsDublin [place] [id number] Iron, Serum 32 ug/dL (Abnormal) Range: 35-155 29-Qbr-156696:39 CBC W/AUTO DIFF WBC Comments: PATIENT NOT FASTINGPERFORMED BY: [facility] Wdfgcb04[address] Search ToolsDublin [place] [id number] Information: [id number],2ND ORDER NO DRAW F EE (54359) Immature Grans (Abs) 0.0 {x10E3/uL} (Normal) Range: 0.0-0.1 Immature Granulocytes 0 % (Normal) Baso (Absolute) 0.0 {x10E3/uL} (Normal) Range: 0.0-0.2 Eos (Absolute) 0.0 {x10E3/uL} (Normal) Range: 0.0-0.4 Monocytes(Absolute) 0.6 {x10E3/uL} (Normal) Range: 0.1-0.9 Lymphs (Absolute) 2.3 {x10E3/uL} (Normal) Range: 0.7-3.1 Neutrophils (Absolute) 3.3 {x10E3/uL} (Normal) Range: 1.4-7.0 Basos 0 % (Normal) Eos 0 % (Normal) Monocytes 9 % (Normal) Lymphs 37 % (Normal) Neutrophils 54 % (Normal) Platelets 217 {x10E3/uL} (Normal) Range: 150-379 RDW 15.5 % (Abnormal) Range: 12.3-15.4 MCHC 33.1 g/dL (Normal) Range: 31.5-35.7 MCH 30.4 pg (Normal) Range: 26.6-33.0 MCV 92 fL (Normal) Range: 79-97 Hematocrit 29.6 % (Abnormal) Range: 34.0-46.6 Hemoglobin 9.8 g/dL (Abnormal) Range: 11.1-15.9 RBC 3.22 {x10E6/uL} (Abnormal) Range: 3.77-5.28 WBC 6.2 {x10E3/uL} (Normal) Range: 3.4-10.8 68-Iaw-643996:39 TSH (18602) Comments: PATIENT NOT FASTINGPERFORMED BY: [facility] Ebcmxe4408 [facility] [id number] TSH 1.800 {uIU/mL} (Normal) Range: 0.450-4.500 56-Zlf-975154:39 URINALYSIS, W/ MICRO (76224) Comments: PATIENT NOT FASTINGPERFORMED BY: [facility] Furtqj2059 [facility] [id number] Microscopic Examination See below: (Normal) Comments: Microscopic was indicated and was performed. Nitrite, Urine Negative (Normal) Urobilinogen,Semi-Qn 0.2 mg/dL (Normal) Range: 0.0-1.9 Bilirubin Negative (Normal) Occult Blood Negative (Normal) Ketones Negative (Normal) Glucose Negative (Normal) Protein Negative (Normal) WBC Esterase 1+ (Abnormal) Appearance Clear (Normal) Urine-Color Yellow (Normal) pH 6.5 (Normal) Range: 5.0-7.5 Specific [place] 1.013 (Normal) Range: 1.005-1.030 60-Fbc-354732:39 METABOLIC PANEL, COMPREHENSIVE Comments: PATIENT NOT FASTINGPERFORMED BY: [facility]Co[facility] SussexVolzyx2376 [facility] [id number] (87745) ALT (SGPT) 5 [iU]/L (Normal) Range: 0-32 AST (SGOT) 16 [iU]/L (Normal) Range: 0-40 Alkaline Phosphatase, S 41 [iU]/L (Normal) Range: 39-117 Bilirubin, Total 0.3 mg/dL (Normal) Range: 0.0-1.2 A/G Ratio 1.8 (Normal) Range: 1.1-2.5 Globulin, Total 2.3 g/dL (Normal) Range: 1.5-4.5 Albumin, Serum 4.1 g/dL (Normal) Range: 3.6-4.8 Protein, Total, Serum 6.4 g/dL (Normal) Range: 6.0-8.5 Calcium, Serum 9.3 mg/dL (Normal) Range: 8.7-10.3 Comments: Please note reference interval change Carbon Dioxide, Total 30 mmol/L (Abnormal) Range: 18-29 Chloride, Serum 97 mmol/L (Normal) Range: 97-108 Potassium, Serum 3.6 mmol/L (Normal) Range: 3.5-5.2 Sodium, Serum 143 mmol/L (Normal) Range: 134-144 BUN/Creatinine Ratio 25 (Normal) Range: 11-26 eGFR If Africn Am 76 mL/min/1.73 (Normal) eGFR If NonAfricn Am 66 mL/min/1.73 (Normal) Creatinine, Serum 0.89 mg/dL (Normal) Range: 0.57-1.00 BUN 22 mg/dL (Normal) Range: 8-27 Glucose, Serum 103 mg/dL (Abnormal) Range: 65-99 Plan of Care Name Dates Details Instructions Unspecified Diagnosis : Eprescribed prescriptions (G8553) Indication: Unspecified Diagnosis BMI 24.0-24.9, adult : Eprescribed prescriptions (G8553) Indication: BMI 24.0-24.9, adult Foraminal stenosis of lumbar region : Eprescribed prescriptions (G8553) Indication: Foraminal stenosis of lumbar region Thoracic spine pain : Eprescribed prescriptions (G8553) Indication: Thoracic spine pain Low back pain (Renamed from Lumbago) : Eprescribed prescriptions (G8553) Indication: Low back pain (Renamed from Lumbago) BMI 22.0-22.9, adult : Eprescribed prescriptions (G8553) Indication: BMI 22.0-22.9, adult Cough : Eprescribed prescriptions (G8553) Indication: Cough Actinic keratoses : Eprescribed prescriptions (G8553) Indication: Actinic keratoses Fibromyalgia (Renamed from Diffuse myofascial pain syndrome) : Eprescribed prescriptions (G8553) Indication: Fibromyalgia (Renamed from Diffuse myofascial pain syndrome) Non-smoker : Eprescribed prescriptions (G8553) Indication: Non-smoker Non-smoker : Eprescribed prescriptions (G8553) Indication: Non-smoker Other hyperlipidemia : Eprescribed prescriptions (G8553) Indication: Other hyperlipidemia [facility] Physical : Eprescribed prescriptions (G8553) Indication: [facility] Physical Impaired Fasting Glucose (Renamed from Elevated fasting blood sugar) : Eprescribed prescriptions (G8553) Indication: Impaired Fasting Glucose (Renamed from Elevated fasting blood sugar) Acute pain of left knee : Eprescribed prescriptions (G8553) Indication: Acute pain of left knee Chronic right shoulder pain : Eprescribed prescriptions (G8553) Indication: Chronic right shoulder pain Medicare annual wellness visit, initial : Eprescribed prescriptions (G8553) Indication: Medicare annual wellness visit, initial Chest pain, unspecified type : Eprescribed prescriptions (G8553) Indication: Chest pain, unspecified type Pulmonary emboli : Eprescribed prescriptions (G8553) Indication: Pulmonary emboli Abnormal stress test : Eprescribed prescriptions (G8553) Indication: Abnormal stress test Impaired Fasting Glucose (Renamed from Elevated fasting blood sugar) : Eprescribed prescriptions (G8553) Indication: Impaired Fasting Glucose (Renamed from Elevated fasting blood sugar) Other hyperlipidemia : Eprescribed prescriptions (G8553) Indication: Other hyperlipidemia Impaired Fasting Glucose (Renamed from Elevated fasting blood sugar) : Eprescribed prescriptions (G8553) Indication: Impaired Fasting Glucose (Renamed from Elevated fasting blood sugar) Other hyperlipidemia : Eprescribed prescriptions (G8553) Indication: Other hyperlipidemia Other hyperlipidemia : Diet, Exercise, and Wt loss Indication: Other hyperlipidemia Other hyperlipidemia : Eprescribed prescriptions (G8553) Indication: Other hyperlipidemia Other hyperlipidemia : Eprescribed prescriptions (G8553) Indication: Other hyperlipidemia Syncope : Fainting (Syncope) *: syncope Indication: Syncope Syncope : Eprescribed prescriptions (G8553) Indication: Syncope Planned Observations CBC W/AUTO DIFF WBC (00492)Indication: Hypertension, benign On: :29 Request METABOLIC PANEL, COMPREHENSIVE (06412)Indication: Hypertension, benign On: :29 Request CBC with auto diff (22875)Indication: Elevated hemoglobin A1c On: 02-Ukr-731389:16 Request METABOLIC PANEL, COMPREHENSIVE (19015)Indication: Elevated hemoglobin A1c On: 88-Swd-010578:16 Request HGB A1C (41064)Indication: Elevated hemoglobin A1c On: 93-Iso-515516:16 Request LIPID PANEL (87304)Indication: Other hyperlipidemia On: 65-Ibv-707106:16 Request TSH (85877)Indication: Abnormal TSH On: 10-Tbs-987420:09 Request TSH (THYROID STIMULATING HORMONE) (72195)Indication: Abnormal TSH On: 90-Dpz-782375:15 Request LIPID PANEL (07313)Indication: Other hyperlipidemia On: 22-Fpx-108084:14 Request CBC with auto diff (31221)Indication: Elevated hemoglobin A1c On: 42-Rwh-282301:14 Request METABOLIC PANEL, COMPREHENSIVE (95039)Indication: Elevated hemoglobin A1c On: 72-Esx-224457:14 Request HGB A1C (14702)Indication: Elevated hemoglobin A1c On: 38-Bsx-777037:14 Request CBC W/AUTO DIFF WBC (60529)Indication: Anemia On: 64-Arh-567080:30 Request CBC with auto diff (45081)Indication: Anemia On: 07-Gtj-670805:02 Request METABOLIC PANEL, COMPREHENSIVE (45338)Indication: Impaired Fasting Glucose (Renamed from Elevated fasting blood sugar) On: 39-Tst-218610:02 Request TSH (46677)Indication: Abnormal TSH On: 77-Zvr-611361:01 Request SED RATE ERYTHROCYTE (89226)Indication: Anemia On: :58 Request C-REACTIVE PROTEIN (42929)Indication: Anemia On: :58 Request FOLIC ACID SERUM (29088)Indication: Anemia On: :58 Request VITAMIN B-12 (CYANOCOBALAMIN) (47523)Indication: Anemia On: :58 Request IGA/IGD/IGG/IGM-EACH (69132)Indication: Anemia On: :33 Request CBC W/AUTO DIFF WBC (57694)Indication: Impaired Fasting Glucose (Renamed from Elevated fasting blood sugar) On: : Request METABOLIC PANEL, COMPREHENSIVE (16528)Indication: Impaired Fasting Glucose (Renamed from Elevated fasting blood sugar) On: : Request Vitamin D Hydroxy (26292)Indication: Other osteoporosis On: : Request CBC with auto diff ([id number])Indication: Anemia On: :22 Request TSH (THYROID STIMULATING HORMONE) ([id number])Indication: Abnormal TSH On: :21 Request HGB A1C (88126)Indication: Impaired Fasting Glucose (Renamed from Elevated fasting blood sugar) On: : Request serum immunofixation (20317)Indication: Anemia On: : Request urine immunofixation ([id number])Indication: Anemia On: : Request LIPID PANEL ([id number])Indication: Other hyperlipidemia On: :15 Request METABOLIC PANEL, COMPREHENSIVE (15615)Indication: Hypertension, benign On: [id number] Request LIPID PANEL ([id number])Indication: Fibromyalgia (Renamed from Diffuse myofascial pain syndrome) On: 62-Mwf-[id number]:14 Request TSH (THYROID STIMULATING HORMONE) ([id number])Indication: Abnormal TSH On: :15 Request HGB A1C (38743)Indication: Impaired Fasting Glucose (Renamed from Elevated fasting blood sugar) On: :15 Request CBC with auto diff (85845)Indication: Hypertension, benign On: :15 Request METABOLIC PANEL, COMPREHENSIVE ([id number])Indication: Hypertension, benign On: :15 Request LIPID PANEL ([id number])Indication: Other hyperlipidemia On: :14 Request ASSAY, TROPONIN, QUANTITATIVE (aka Troponin I) ([id number])Indication: Atypical chest pain On: 9-Cyp-048836:02 Request TSH ([id number])Indication: Abnormal TSH On: 6-Jxw-516342:56 Request CBC WITH MANUAL DIFF ([id number])Indication: Other specified nutritional anemias On: 1-Xpi-231555:48 Request Comments: 1 month TSH (THYROID STIMULATING HORMONE) ([id number])Indication: Hypertension, benign On: :15 Request Iron ([id number])Indication: Anemia On: 2-Xen-792386:59 Request METABOLIC PANEL, COMPREHENSIVE ([id number])Indication: Other osteoporosis On: 1-Syx-377547:01 Request Vitamin D Hydroxy (03661)Indication: Other osteoporosis On: :37 Request LIPID PANEL ([id number])Indication: Other hyperlipidemia On: :36 Request HGB A1C ([id number])Indication: Impaired Fasting Glucose (Renamed from Elevated fasting blood sugar) On: :35 Request MICROALBUMIN: CREATININE RATIO ([id number]) AND ([id number])Indication: Impaired Fasting Glucose (Renamed from Elevated fasting blood sugar) On: :35 Request Metabolic Panel, Comprehensive ([id number])Indication: Gastroenteritis On: 86-Qdn-030366:09 Request CBC, Platelets & Auto Diff ([id number])Indication: Gastroenteritis On: 89-Epx-573744:09 Request Sed Rate Erythrocyte ([id number])Indication: Gastroenteritis On: 07-Vqc-277729:09 Request CBC WITH MANUAL DIFF ([id number])Indication: Anemia On: :12 Request Comments: 6 weeks TSH ([id number])Indication: Abnormal TSH On: 6-Phi-267631:11 Request Comments: 6 weeks VITAMIN B-12 (CYANOCOBALAMIN) ([id number])Indication: Anemia On: :39 Request TSH ([id number])Indication: Abnormal TSH On: 50-Fij-09177:40 Request CBC W/AUTO DIFF WBC ([id number])Indication: Anemia On: 99-Ije-37417:40 Request TSH ([id number])Indication: Abnormal TSH On: 35-Opc-55133:25 Request Comments: ADD ON METABOLIC PANEL, COMPREHENSIVE ([id number])Indication: Impaired Fasting Glucose (Renamed from Elevated fasting blood sugar) On: 69-Dyi-749827:43 Request Anti-TPO Antibody ([id number])Indication: Abnormal TSH On: :42 Request T4, FREE (THYROXINE) ([id number])Indication: Abnormal TSH On: :42 Request T3, FREE (TRIDOTHYRONINE) ([id number])Indication: Abnormal TSH On: :42 Request RHEUMATOID FACTOR-QUANT ([id number])Indication: Chronic right shoulder pain On: :32 Request SED RATE ERYTHROCYTE ([id number])Indication: Chronic right shoulder pain On: :32 Request C-REACTIVE PROTEIN ([id number])Indication: Chronic right shoulder pain On: :32 Request CBC W/AUTO DIFF WBC ([id number])Indication: Hypertension, benign On: :31 Request METABOLIC PANEL, COMPREHENSIVE ([id number])Indication: Hypertension, benign On: :31 Request LIPID PANEL ([id number])Indication: Other hyperlipidemia On: :31 Request TSH ([id number])Indication: Chest pain at rest On: 38-Xww-600761:31 Request HGB A1C ([id number])Indication: Impaired Fasting Glucose (Renamed from Elevated fasting blood sugar) On: 3-Kes-638784:00 Request CBC with auto diff ([id number])Indication: Impaired Fasting Glucose (Renamed from Elevated fasting blood sugar) On: 9-Tkn-183083:00 Request METABOLIC PANEL, COMPREHENSIVE ([id number])Indication: Impaired Fasting Glucose (Renamed from Elevated fasting blood sugar) On: 1-Qrf-137320:00 Request LIPID PANEL ([id number])Indication: Other hyperlipidemia On: 3-Vas-510760:00 Request VITAMIN B-12 (CYANOCOBALAMIN) ([id number])Indication: Other specified nutritional anemias On: 0-Otn-580544:59 Request Vitamin D Hydroxy ([id number])Indication: Other osteoporosis On: :59 Request CBC (AUTO) ([id number])Indication: Other osteoporosis On: :48 Request Vitamin D Hydroxy ([id number])Indication: Other osteoporosis On: :48 Request METABOLIC PANEL, COMPREHENSIVE ([id number])Indication: Other hyperlipidemia On: :48 Request LIPID PANEL ([id number])Indication: Other hyperlipidemia On: :48 Request SED RATE ERYTHROCYTE ([id number])Indication: Chest pain, unspecified type On: :39 Request Comments: stat C-REACTIVE PROTEIN ([id number])Indication: Chest pain, unspecified type On: :39 Request Comments: stat CBC W/AUTO DIFF WBC ([id number])Indication: Chest pain, unspecified type On: :39 Request Comments: stat Hemoglobin Glyclated (HGB A1C) ([id number])Indication: Impaired Fasting Glucose (Renamed from Elevated fasting blood sugar) On: 36-Lif-583379:50 Request URINALYSIS, W/ MICRO ([id number])Indication: Hypertension, benign On: 85-Mda-602234:49 Request CBC with auto diff ([id number])Indication: Other specified nutritional anemias On: 98-Xxz-997656:49 Request METABOLIC PANEL, COMPREHENSIVE ([id number])Indication: Other specified nutritional anemias On: 65-Iyx-587501:49 Request LIPID PANEL ([id number])Indication: Other hyperlipidemia On: 94-Thq-572348:49 Request CBC W/AUTO DIFF WBC ([id number])Indication: Other specified nutritional anemias On: :24 Request METABOLIC PANEL, COMPREHENSIVE ([id number])Indication: Other hyperlipidemia On: 30-Vrq-184698:24 Request LIPID PANEL ([id number])Indication: Other hyperlipidemia On: 30-Vln-092589:24 Request IRON ([id number])Indication: Other specified nutritional anemias On: 8-Khg-154643:37 Request Planned Encounters Medical; [facility] Exam (DF Nurse) - On: 11-May-2018 8:45 [facility] NURSE, [facility] Medical; [facility] Exam (Doctor) - On: 30-May-2018 13:30 [facility] Albert JC, Madyson Roman Planned Procedures Radiology - Cervical SpineBy: Fast On: 19-Nov-2017 Intent DO, Enrike A Fast DO, Enrike A Cartoid DopplerBy: Fast DO, Enrike A On: 17-Nov-2017 Intent Fast DO, Enrike A SCREENING DIGITAL TOMOSYNTHESIS OF On: 17-Nov-2017 Intent BREAST ([id number])By: Fast DO, Enrike A Fast DO, Enrike A MRI OF THORACIC SPINE WITHOUT On: 13-Aug-2017 Intent CONTRAST ([id number])By: Fast DO, Enrike A Fast DO, Enrike A MRI LUMBAR SPINE W/O CONTRAST On: 13-Aug-2017 Intent ([id number])By: Fast DO, Enrike A Fast DO, Enrike A INJECTION, PROLIA ([id number])By: Fast On: 26-Jul-2017 Intent DO, Enrike A Fast DO, Enrike A Comments: Prolia prefilled syringe 60mg/mlLot:[id number]:10/2019L arm SQPt tolerated wellMLONG ,ORTHOTICS TECHNICIAN Radiology - Lumbar SpineBy: Fast DO, On: 09-Jun-2017 Intent Enrike A Fast DO, Enrike A Radiology - Thoracic SpineBy: Fast On: 09-Jun-2017 Intent DO, Enrike A Fast DO, Enrike A MRI OF BRAIN WITH AND WITHOUT On: 13-Apr-2017 Intent CONTRAST ([id number])By: Fast DO, Enrike A Fast DO, Enrike A ELECTROCARDIOGRAM, COMPLETE (ECG) On: 13-Apr-2017 Intent ([id number])By: Fast DO, Enrike A Fast DO, Comments: ekg showed normal sinus rhythym, normal axis, no acute st/t wave changes sinus maggie n o change Enrike A Nuclear Medicine - HIDA w/CCKBy: On: 28-Dec-2016 Intent Fast DO, Enrike A Fast DO, Enrike A Ultrasound - GallbladderBy: Fast DO, On: 18-Dec-2016 Intent Enrike A Fast DO, Enrike A SCREENING DIGITAL TOMOSYNTHESIS OF On: 30-Sep-2016 Intent BREAST ([id number])By: Fast DO, Enrike A Comments: end of oct Fast DO, Enrike A CT - Chest (Without Contrast)By: On: 30-Sep-2016 Intent Fast DO, Enrike A Fast DO, Enrike A Cartoid DopplerBy: Fast DO, Enrike A On: 04-Sep-2016 Intent Fast DO, Enrike A DEXA SCAN AXIAL SKELETON ([id number])By: On: 04-Sep-2016 Intent Fast DO, Enrike A Fast DO, Enrike A Comments: mid september INJECTION, PROLIA ([id number])By: Fast On: 26-Aug-2016 Intent DO, Enrike A Fast DO, Enrike A Comments: prolialot:[id number]:12ite:lt subqroute:subqdose:60mg/mlD.ARNOLDO Ardon ELECTROCARDIOGRAM, COMPLETE (ECG) On: 22-Jul-2016 Intent ([id number])By: Fast DO, Enrike A Fast DO, Comments: ekg showed normal sinus rhythym, normal axis, no acute st/t wave changes Enrike A Cartoid DopplerBy: Fast DO, Enrike A On: 25-May-2016 Intent Fast DO, Enrike A Comments: bilateral INFUSION, NORMAL SALINE SOLUTION , On: 09-Apr-2016 Intent 1000 CC (Special Coverage Instructions Apply. See MCM: 2049) ([id number])By: Madyson Montiel MD ELECTROCARDIOGRAM, COMPLETE (ECG) On: 12-Feb-2016 Intent ([id number])By: Fast DO, Enrike A Fast DO, Comments: ekg showed normal sinus rhythym, normal axis, no acute st/t wave changes Enrike A CT - Chest (Without Contrast)By: On: 12-Feb-2016 Intent Fast DO, Enrike A Fast DO, Enrike A Flu Vaccine (Quadrivalent) [id number]: On: 12-Feb-2016 Intent Fast DO, Enrike A Fast DO, Enrike A Comments: FLUlot: [id number]:17site:Lt deltoidroute:IMdose:.5mlARNOLDO WALLACE ADMINISTRATION OF INFLUENZA VIRUS On: 12-Feb-2016 Intent VACCINE ([id number])By: Fast DO, Enrike A Fast DO, Enrike A MAMMOGRAM, SCREENING, BOTH BREAST On: 13-Nov-2015 Intent ([id number])By: Fast DO, Enrike A Fast DO, Enrike A Radiology - Knee - Left - Weight On: 07-Oct-2015 Intent BearingBy: Fast DO, Enrike A Fast DO, Comments: with sunrise view Enrike A Radiology - Shoulder - RightBy: Fast On: 30-Jul-2015 Intent DO, Enrike A Fast DO, Enrike A Radiology - Cervical SpineBy: Fast On: 30-Jul-2015 Intent DO, Enrike A Fast DO, Enrike A Radiology - Chest- PA and LatBy: On: 02-Jul-2015 Intent Fast DO, Enrike A Fast DO, Enrike A Comments: stat- call results Doppler Ultrasound OtherBy: Fast DO, On: 18-Jun-2015 Intent Enrike A Fast DO, Enrike A Comments: both legs Holter Monitor 24 hrsBy: Fast DO, On: 27-May-2015 Intent Enrike A Fast DO, Enrike A Nuclear Stress Test/Stress On: 20-May-2015 Intent SPECT/TreadmillBy: Fast DO, Enrike A Fast DO, Enrike A Cartoid DopplerBy: Fast DO, Enrike A On: 20-May-2015 Intent Fast DO, Enrike A ZOSTER VACC, [place] ([id number])By: Reva, On: 06-Mar-2015 Intent Ferguson Comments: Zosterlot:[id number]:01/26/16ite:lt subqroute:subqDEMICK, SMA PNEUM VAC ADLT/IMUMNOSPR, SBC/INTRM On: 20-Feb-2015 Intent ([id number])By: Visit, Nurse Comments: Pnuemovaxlot:[id number]:10/30/16site:lt deltoidroute:IMDose:.5mlDEMICK, SMA Flu Vaccine (Quadrivalent) [id number]: On: 11-Feb-2015 Intent Fast DO, Enrike A Fast DO, Enrike A Comments: Lot #:[id number] date: 08/2015Amount given:prefilled syringeSite given:L Dltd, IMGiven by: MARGOTH Garibay and ABN signed ADMINISTRATION OF INFLUENZA VIRUS On: 11-Feb-2015 Intent VACCINE ([id number])By: Fast DO, Enrike A Fast DO, Enrike A MAMMOGRAM, SCREENING, BOTH BREAST On: 25-Sep-2014 Intent ([id number])By: Fast DO, Enrike A Fast DO, Enrike A Radiology - Knee - Left - Weight On: 14-Jun-2014 Intent BearingBy: Fast DO, Enrike A Fast DO, Enrike A Radiology - Knee - Right - Weight On: 14-Jun-2014 Intent BearingBy: Fast DO, Enrike A Fast DO, Enrike A Cartoid DopplerBy: Fast DO, Enrike A On: 23-Apr-2014 Intent Fast DO, Enrike A COMPUTED TOMOGRAPHY ANGIOGRAPHY OF On: 17-Apr-2014 Intent CHEST WITH AND WITHOUT CONTRAST ([id number])By: Enrike Jaimes DO A Fast DO, Enrike A CT - Brain/HeadBy: Fast DO, Enrike A On: 16-Apr-2014 Intent Fast DO, Enrike A Doppler Ultrasound OtherBy: Fast DO, On: 16-Apr-2014 Intent Enrike A Fast DO, Enrike A EKG ([id number])By: Matt MCDUFFIE Enrike A On: 16-Apr-2014 Intent Fast DO, Enrike A Comments: ekg showed normal sinus rhythym, normal axis, no acute st/t wave changes Planned Medications INFUSION, NORMAL SALINE SOLUTION , 1000 CC Ordered: 09-Apr-2016 Pending Madyson Montiel MD INJECTION, PROLIA Ordered: 26-Aug-2016 Pending Fast DO, Enrike A Fast DO, Enrike A INJECTION, PROLIA Ordered: 26-Jul-2017 Pending Fast DO, Enrike A Fast DO, Enrike A Instructions Name Dates Details Unspecified Diagnosis : How to access health information online Indication: Unspecified Diagnosis Unspecified Diagnosis : How to access health information online - Detail Indication: Unspecified Diagnosis Unspecified Diagnosis : Patient Instructions Indication: Unspecified Diagnosis BMI 23.0-23.9, adult : How to access health information online Indication: BMI 23.0-23.9, adult BMI 23.0-23.9, adult : How to access health information online - Detail Indication: BMI 23.0-23.9, adult BMI 23.0-23.9, adult : Patient Instructions Indication: BMI 23.0-23.9, adult BMI 24.0-24.9, adult : How to access health information online Indication: BMI 24.0-24.9, adult BMI 24.0-24.9, adult : How to access health information online - Detail Indication: BMI 24.0-24.9, adult BMI 24.0-24.9, adult : Patient Instructions Indication: BMI 24.0-24.9, adult Foraminal stenosis of lumbar region : How to access health information online Indication: 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 : How to access health information online Indication: 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 : How to access health information online - Detail Indication: 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 : Patient Instructions Indication: Foraminal stenosis of lumbar region Thoracic spine pain : How to access health information online Indication: Thoracic spine pain Thoracic spine pain : How to access health information online - Detail Indication: Thoracic spine pain Thoracic spine pain : Patient Instructions Indication: Thoracic spine pain Low back pain (Renamed from Lumbago) : How to access health information online Indication: Low back pain (Renamed from Lumbago) Low back pain (Renamed from Lumbago) : How to access health information online - Detail Indication: Low back pain (Renamed from Lumbago) Low back pain (Renamed from Lumbago) : Patient Instructions Indication: Low back pain (Renamed from Lumbago) BMI 22.0-22.9, adult : How to access health information online Indication: BMI 22.0-22.9, adult BMI 22.0-22.9, adult : How to access health information online - Detail Indication: BMI 22.0-22.9, adult BMI 22.0-22.9, adult : Patient Instructions Indication: BMI 22.0-22.9, adult Cough : How to access health information online Indication: Cough Cough : How to access health information online - Detail Indication: Cough Cough : Patient Instructions Indication: Cough Actinic keratoses : How to access health information online Indication: Actinic keratoses Actinic keratoses : How to access health information online - Detail Indication: Actinic keratoses Actinic keratoses : Patient Instructions Indication: Actinic keratoses Impaired Fasting Glucose (Renamed from Elevated fasting blood sugar) : How to access health information online Indication: Impaired Fasting Glucose (Renamed from Elevated fasting blood sugar) Impaired Fasting Glucose (Renamed from Elevated fasting blood sugar) : How to access health information online - Detail Indication: Impaired Fasting Glucose (Renamed from Elevated fasting blood sugar) Impaired Fasting Glucose (Renamed from Elevated fasting blood sugar) : Patient Instructions Indication: Impaired Fasting Glucose (Renamed from Elevated fasting blood sugar) Fibromyalgia (Renamed from Diffuse myofascial pain syndrome) : How to access health information online Indication: Fibromyalgia (Renamed from Diffuse myofascial pain syndrome) Fibromyalgia (Renamed from Diffuse myofascial pain syndrome) : How to access health information online - Detail Indication: Fibromyalgia (Renamed from Diffuse myofascial pain syndrome) Fibromyalgia (Renamed from Diffuse myofascial pain syndrome) : Patient Instructions Indication: Fibromyalgia (Renamed from Diffuse myofascial pain syndrome) Non-smoker : How to access health information online Indication: Non-smoker Non-smoker : How to access health information online - Detail Indication: Non-smoker Non-smoker : Patient Instructions Indication: Non-smoker Non-smoker : How to access health information online Indication: Non-smoker Non-smoker : How to access health information online - Detail Indication: Non-smoker Non-smoker : Patient Instructions Indication: Non-smoker Other hyperlipidemia : How to access health information online Indication: Other hyperlipidemia Other hyperlipidemia : How to access health information online - Detail Indication: Other hyperlipidemia Other hyperlipidemia : Patient Instructions Indication: Other hyperlipidemia Dehydration : How to access health information online Indication: Dehydration Dehydration : How to access health information online - Detail Indication: Dehydration Dehydration : Patient Instructions Indication: Dehydration [facility] Physical : How to access health information online Indication: [facility] Physical [facility] Physical : How to access health information online - Detail Indication: [facility] Physical [facility] Physical : Patient Instructions Indication: [facility] Physical Neoplasm of uncertain behavior of skin : How to access health information online Indication: Neoplasm of uncertain behavior of skin Neoplasm of uncertain behavior of skin : How to access health information online - Detail Indication: Neoplasm of uncertain behavior of skin Neoplasm of uncertain behavior of skin : Patient Instructions Indication: Neoplasm of uncertain behavior of skin Impaired Fasting Glucose (Renamed from Elevated fasting blood sugar) : How to access health information online Indication: Impaired Fasting Glucose (Renamed from Elevated fasting blood sugar) Impaired Fasting Glucose (Renamed from Elevated fasting blood sugar) : How to access health information online - Detail Indication: Impaired Fasting Glucose (Renamed from Elevated fasting blood sugar) Impaired Fasting Glucose (Renamed from Elevated fasting blood sugar) : Patient Instructions Indication: Impaired Fasting Glucose (Renamed from Elevated fasting blood sugar) Acute pain of left knee : How to access health information online Indication: Acute pain of left knee Acute pain of left knee : How to access health information online - Detail Indication: Acute pain of left knee Acute pain of left knee : Patient Instructions Indication: Acute pain of left knee Chronic right shoulder pain : How to access health information online Indication: Chronic right shoulder pain Chronic right shoulder pain : How to access health information online - Detail Indication: Chronic right shoulder pain Chronic right shoulder pain : Patient Instructions Indication: Chronic right shoulder pain Medicare annual wellness visit, initial : How to access health information online Indication: Medicare annual wellness visit, initial Medicare annual wellness visit, initial : How to access health information online - Detail Indication: Medicare annual wellness visit, initial Medicare annual wellness visit, initial : Patient Instructions Indication: Medicare annual wellness visit, initial Chest pain, unspecified type : How to access health information online Indication: Chest pain, unspecified type Chest pain, unspecified type : How to access health information online - Detail Indication: Chest pain, unspecified type Chest pain, unspecified type : Patient Instructions Indication: Chest pain, unspecified type Pulmonary emboli : How to access health information online Indication: Pulmonary emboli Pulmonary emboli : How to access health information online - Detail Indication: Pulmonary emboli Pulmonary emboli : Patient Instructions Indication: Pulmonary emboli Pulmonary emboli : How to access health information online Indication: Pulmonary emboli Pulmonary emboli : How to access health information online - Detail Indication: Pulmonary emboli Pulmonary emboli : Patient Instructions Indication: Pulmonary emboli Abnormal stress test : How to access health information online Indication: Abnormal stress test Abnormal stress test : How to access health information online - Detail Indication: Abnormal stress test Abnormal stress test : Patient Instructions Indication: Abnormal stress test Impaired Fasting Glucose (Renamed from Elevated fasting blood sugar) : How to access health information online Indication: Impaired Fasting Glucose (Renamed from Elevated fasting blood sugar) Impaired Fasting Glucose (Renamed from Elevated fasting blood sugar) : How to access health information online - Detail Indication: Impaired Fasting Glucose (Renamed from Elevated fasting blood sugar) Impaired Fasting Glucose (Renamed from Elevated fasting blood sugar) : Patient Instructions Indication: Impaired Fasting Glucose (Renamed from Elevated fasting blood sugar) Other hyperlipidemia : How to access health information online Indication: Other hyperlipidemia Other hyperlipidemia : How to access health information online - Detail Indication: Other hyperlipidemia Other hyperlipidemia : Patient Instructions Indication: Other hyperlipidemia Other osteoporosis : How to access health information online Indication: Other osteoporosis Other osteoporosis : How to access health information online - Detail Indication: Other osteoporosis Other osteoporosis : Patient Instructions Indication: Other osteoporosis Impaired Fasting Glucose (Renamed from Elevated fasting blood sugar) : Patient Instructions Indication: Impaired Fasting Glucose (Renamed from Elevated fasting blood sugar) Other hyperlipidemia : Patient Instructions Indication: Other hyperlipidemia Other hyperlipidemia : Patient Instructions Indication: Other hyperlipidemia Other hyperlipidemia : Patient Instructions Indication: Other hyperlipidemia Syncope : Patient Instructions Indication: Syncope Advance Directives Name Dates Details Immunization Registry [place] - Effective on 02/22/2018. Effective: 22-Feb-2018 Expiration date unspecified Encounters Office Visit On: 22-Feb-2018 12:48 Encounter Reason: Follow up tests - Date: (02/16 blood work)., [ADDITIONAL REASON] Follow up for chronic medical issues - The patient feels well with minor complai End: 22-Feb-2018 21:28 nts, has good energy level and is sleeping well (new mask for CPAP so sleeping better). Patient has been compliant with instructions. Current medication use: no side effects and compliant with dosing re gimen. Patient sleeps 6 hours per night. Impact of disease: emotional impact-moderate. Nutrition: balanced diet and supplemental vitamins. The medical issues the patient is following up for include card iac issues, depression, fibromyalgia, gastric reflux, high blood pressure, high cholesterol, hypothyroid, osteoporosis/osteopenia and other (KATINA, memory loss, hx. PE). Note for Follow up for chronic me dical issues: her weight up she said eating too much junk food- bp is good- got new mask for cpap and sleeping better and energy better- just had eye exam needs cataract surgery both eyes daughter says she doing better the fog is better - tolerating meds taking 2 thyroid on wednesday not missing- she getting injections in the back from Dr Lema and really helping and per her daughter she doing alot better Encounter Diagnosis: Unspecified Diagnosis , Tobacco abuse, in remission (Renamed from Tobacco dependence in remission), BMI 25.0-25.9,adult, Other hyperlipidemia, Abnormal TSH, Chronic low back pain without sciatica, Memory loss, Elevated hemoglobin A1c, Hypertension, benign, Other osteoporosis, Bilateral carotid artery stenosis [facility] Phone Encounter On: 19-Nov-2017 9:16 Encounter Diagnosis: Chronic headaches End: 19-Nov-2017 9:18 [facility] Office Visit On: 17-Nov-2017 15:30 Encounter Reason: Follow up for chronic medical issues - The patient does not feel well and has decreased energy level. Patient has been compliant with instructions. Current medication use: no side effects and compliant End: 18-Nov-2017 21:59 with dosing regimen. Patient sleeps 5 hours per night. Impact of disease: emotional impact-moderate. Nutrition: balanced diet and supplemental vitamins. The medical issues the patient is following up fo r include cardiac issues, depression, fibromyalgia, gastric reflux, high blood pressure, high cholesterol, hypothyroid, osteoporosis/osteopenia and other (KATINA, memory loss, hx. PE). Note for Follow up for chronic medical issues: went over med list with daughter and patient and discussed dizzy -change meds aaround- is orthostatic - bp good no afib sx no stroke sx no chest pain just hurts from head to toe with spine issues and getting spinal injection by dr Rivera Diagnosis: Abnormal TSH, BMI 23.0-23.9, adult, Tobacco abuse, in remission (Renamed from Tobacco dependence in remission), Memory loss, Elevated hemoglobin A1c, Encounter for screening mammogram for breast cancer (Renamed from Encounter for screening mammogram for malignant neoplasm of breast), Other hyperlipidemia, Bilateral carotid artery stenosis, Hypertension, benign, Chronic low back pain without sciatica, Orthostasis [facility] Office Visit On: 17-Sep-2017 11:33 Encounter Reason: Skin Lesions - Lesion(s) are located on the left arm. The patient describes the lesion(s) as itchy, brown and white. Onset was month(s) ago. The symptoms occur constantly. The patient describes this as worsening. End: 17-Sep-2017 11:54 Encounter Diagnosis: Non-smoker, BMI 24.0-24.9, adult, Actinic keratoses [facility] Office Visit On: 06-Sep-2017 15:37 Encounter Reason: Follow up acute care visit - The patient feels the same (did physical therapy but was not helpful. Back is still feeling the same as it did before). Patient has been compliant with instructions. Current End: 10-Sep-2017 8:37 medication use: no side effects (hydrocodone), compliant with dosing regimen and considered effective by patient. Note for Follow up acute care visit: sx same had injection in back years ago, [ADDITIONAL REASON] Follow up tests - Date: (08/27/17 MRI back). Encounter Diagnosis: Non-smoker, BMI 24.0-24.9, adult, Foraminal stenosis of lumbar region, Chronic low back pain without sciatica, Hypertension, benign, Other hyperlipidemia, Elevated hemoglobin A1c, Abnormal TSH [facility] Visit On: 13-Aug-2017 9:38 Encounter Reason: Follow up for chronic medical issues - The patient feels well with minor complaints (Having a lot of headaches and back pain. Seeing Bavis for the headaches and doing therapy for the back pain but doesn End: 16-Aug-2017 19:16 't seem to be helping), has good energy level and is sleeping poorly (depends on the day). Patient has been compliant with instructions. Current medication use: no side effects, compliant with dosing re gimen and considered effective by patient. Patient sleeps 5 (depends on the dayl trouble falling asleep and gets up to use the restrooom) hours per night. Impact of disease: emotional impact-mild. Nutri tion: balanced diet and supplemental vitamins. The medical issues the patient is following up for include blood sugar issues, cardiac issues, fibromyalgia, gastric reflux, high blood pressure, high chol esterol, osteoporosis/osteopenia and other (KATINA, anemia, migraine, PE). Note for Follow up for chronic medical issues: she had pt and taking meloxicam still alot of pain in low back and throacic and c ervical- she saw liliana in june but didnt address memory so will call his office and ask him to do so - she saw cardio we reviewed her labs, [ADDITIONAL REASON] Follow up tests - Date: (08/10 blood work). Encounter Diagnosis: Tobacco abuse, in remission (Renamed from Tobacco dependence in remission), BMI 24.0-24.9, adult, Chronic low back pain without sciatica, Thoracic spine pain, Hypertension, benign, Other hyperlipidemia, Elevated hemoglobin A1c, Abnormal TSH [facility] Visit On: 26-Jul-2017 10:52 Encounter Reason: Injections - The medication the patient is here to receive is other (prolia).Encounter Diagnosis: Other osteoporosis End: 26-Jul-2017 11:46 [facility] Visit On: 09-Jun-2017 10:55 Encounter Reason: Follow up for chronic medical issues - The patient feels well with minor complaints (a lot of back pain. Uses a TENZ unit at home but only helps so much. Neck pain and headaches as well), has decreased End: 10-Jun-2017 9:03 energy level (feels lazy, no motivation) and is sleeping poorly. Patient has been compliant with instructions. Current medication use: no side effects, compliant with dosing regimen and considered effec tive by patient. Patient sleeps 5 (depends on the dayl trouble falling asleep and gets up to use the restrooom) hours per night. Impact of disease: emotional impact-mild. Nutrition: balanced diet and stearns pplemental vitamins. The medical issues the patient is following up for include blood sugar issues, cardiac issues, fibromyalgia, gastric reflux, high blood pressure, high cholesterol, osteoporosis/oste openia and other (KATINA, anemia, migraine, PE). Note for Follow up for chronic medical issues: back pain chornic there all time certain things maybe worse no falls- her neck did get better with pt all t magalie symptoms back again - she maybe doing some of pt exercsies at home-cymbalta increase may have helped pain of fibro other locations-Encounter Diagnosis: Tobacco abuse, in remission (Renamed from Tobacco dependence in remission), BMI 24.0-24.9, adult, Low back pain (Renamed from Lumbago), Chronic thoracic back pain, Hypertension, benign, Fibromyalgia (Renamed from Diffuse myofascial pain syndrome), Memory loss, Other hyperlipidemia, Abnormal TSH, Impaired Fasting Glucose (Renamed from Elevated fasting blood sugar), Anemia [facility] Visit On: 29-Apr-2017 21:00 Encounter Diagnosis: Unspecified Diagnosis End: 02-May-2017 18:25 [facility] Visit On: 13-Apr-2017 9:33 Encounter Reason: Physical female exam - General health: feels well with minor complaints (has had a chest cold for a couple weeks), has decreased energy level, is sleeping poorly and is sleeping well. The patient's appe End: 29-Apr-2017 20:58 tite is normal. Nutrition: normal/adequate. Exercises 0 days per week. Sleeps on average 5 hours per night. Normal bowel and bladder habits. Safety measures include appropriate use of safety belts and h ome smoke detectors. There are no current emotional problems. screening, colonoscopy and screening, mammography. Note for Physical exam: has cut back on chips and junk and weight has come down and bp is better-- she has had cough sticking around couple weeks- and no fever but wont go away- little sob no wheeze- back been bothering whole back using tens no falls- energy level better- did just see hem e and blood count improved get his letter- no more abdominal pain-Encounter Diagnosis: Tobacco abuse, in remission (Renamed from Tobacco dependence in remission), BMI 22.0-22.9, adult, Anemia, Impaired Fasting Glucose (Renamed from Elevated fasting blood sugar), [facility], Other hyperlipidemia, Memory loss, Abnormal TSH, Hypertension, benign, Acute sinusitis, Fibromyalgia (Renamed from Diffuse myofascial pain syndrome), Chronic headaches [facility] Visit On: 02-Feb-2017 13:01 Encounter Reason: Cough - The onset of the cough has been 3 weeks ago. The cough is characterized as productive of mucoid sputum. The amount of sputum produced is scanty. The cough occurs all the time. The symptoms have End: 02-Feb-2017 13:31 been associated with headache, hoarseness, runny nose and sore throat, while the symptoms have not been associated with fever or wheezing. the color of the sputum is clear. Note for Cough : throat be tter now but still moist cough and sob no fever- no wheezingEncounter Diagnosis: Cough, BMI 24.0-24.9, adult, Tobacco abuse, in remission (Renamed from Tobacco dependence in remission), COPD exacerbation, Acute bronchitis [facility] Phone Encounter On: 28-Dec-2016 16:39 Encounter Diagnosis: Right upper quadrant pain End: 28-Dec-2016 16:41 [facility] Office Visit On: 25-Dec-2016 10:26 Encounter Reason: Skin Lesion, Facial - Symptoms include pigmentation change and lesion itching. The condition involves a single lesion. Lesion(s) are located on the right forehead. The patient describes the lesion(s) as End: 25-Dec-2016 10:51 flat. Onset was year(s) ago. The patient describes this as worsening. Note for Facial skin lesion: also noted one on left forearmEncounter Diagnosis: Actinic keratoses, BMI 24.0-24.9, adult [facility] Visit On: 18-Dec-2016 11:00 Encounter Reason: Follow up for chronic medical issues - The patient feels well with minor complaints and has decreased energy level. Patient has been compliant with instructions. Current medication use: no side effects, End: 18-Dec-2016 15:07 compliant with dosing regimen and considered effective by patient. Patient sleeps 5 hours per night. Impact of disease: emotional impact-mild. Nutrition: balanced diet and supplemental vitamins. The me dical issues the patient is following up for include blood sugar issues, cardiac issues, fibromyalgia, gastric reflux, high blood pressure, high cholesterol, osteoporosis/osteopenia and other (KATINA, anem ia, migraine, PE). Note for Follow up for chronic medical issues: other than abd sx she has been feeling better - her neck feeling better with pt and her knees better with the shot- she occ back pain if overdoes it - not feeling like bp is up- - no gerdEncounter Diagnosis: BMI 24.0- 24.9, adult, Impaired Fasting Glucose (Renamed from Elevated fasting blood sugar), Tobacco abuse, in remission (Renamed from Tobacco dependence in remission), Right upper quadrant pain, Hypertension, benign, Gastroesophageal reflux disease without esophagitis, Anemia, Actinic keratoses [facility] Visit On: 30-Sep-2016 9:51 Encounter Reason: Follow up Meds - The patient feels well with minor complaints, has good energy level and is sleeping poorly. Patient has been compliant with instructions. Current medication use: no side effects and com End: 02-Oct-2016 14:47 pliant with dosing regimen. Patient sleeps 5 hours per night. Note for Follow up Meds: Follow-up on starting Duloxitine for fibromyalgia pain. Pt states its helps and sometimes depending on the day, h as aches and pains.- her neck issues is better- she toekrating the duloxetine- she tolerate prolia and definitley needs because bone density worse we talked about walking as important for bones, [ADDITIONAL REASON] Follow up tests - Diagnostic tests include other (carotid doppler and bone dexa). Date: (09/19/16). Encounter Diagnosis: Fibromyalgia (Renamed from Diffuse myofascial pain syndrome), Body mass index (BMI) 23.0-23.9, adult, Non-smoker, Other osteoporosis, Bilateral carotid artery stenosis, Hypertension, benign, Other hyperlipidemia, Abnormal TSH, Impaired Fasting Glucose (Renamed from Elevated fasting blood sugar), Lung nodule, Anemia, Encounter for screening mammogram for breast cancer (Renamed from Encounter for screening mammogram for malignant neoplasm of breast) [facility] Visit On: 04-Sep-2016 10:21 Encounter Reason: Follow up for chronic medical issues - The patient feels well with minor complaints (back pain which she is doing therapy for and seems to be helping and fatigue), has decreased energy level and is slee End: 06-Sep-2016 20:43 ping poorly. Patient has been compliant with instructions. Current medication use: no side effects and compliant with dosing regimen. Patient sleeps 5 hours per night. Nutrition: balanced diet and inapp ropriate diet. The medical issues the patient is following up for include All identified problems below, blood sugar issues, cardiac issues (cad), fibromyalgia, gastric reflux, high blood pressure, high cholesterol, osteoporosis/osteopenia and other (anemia, ROME, allergic rhinitis, arthritis, katina, carotid stenosis). Note for Follow up for chronic medical issues: she is doing therapy and with some dieudonne nges in therapy - seems to be some improvement but next day seems back to where was- allergies not too ??bad except some watery itchy- gtting allergy shots- she is not eating the junk like used to and weight down and bp is good, [ADDITIONAL REASON] Follow up tests - Diagnostic tests include other (labs). Date: (08/31/16). Encounter Diagnosis: Non-smoker, Fibromyalgia (Renamed from Diffuse myofascial pain syndrome), Neck pain, Atypical chest pain, Abnormal TSH, Hypertension, benign, Bilateral carotid artery stenosis, Other osteoporosis, Postmenopausal (Renamed from Postmenopausal status), Body mass index (BMI) 23.0-23.9, adult [facility] Visit On: 26-Aug-2016 10:31 Encounter Reason: Nurse procedure visit - The symptoms have been associated with other (prolia).Encounter Diagnosis: Other osteoporosis End: 26-Aug-2016 10:53 [facility] Visit On: 22-Jul-2016 16:09 Encounter Reason: Neck pain - The onset of the neck pain has been sudden following no specific incident and has been occurring in a persistent pattern for 3 days. The course has been gradually improving. The neck pain i End: 23-Jul-2016 21:12 s described as a moderate sharp stabbing. The neck pain is described as being located in the sides of cervical spine. The back pain does not radiate The symptoms have been associated with neck stiffness and headache, while the symptoms have not been associated with chills, dysuria, fever or trauma. Note for Neck pain : left side of neck sharp and radiate into jaw- not into arm- chest maybe as well- this like the chest symptoms she worked up before for by geeta kang- told is muscular- not happening now- not sweaty not sob -not happening with exertion -not predicatable hurts worse to move neck - had carotids doneEncounter Diagnosis: BMI 25.0-25.9,adult, Non-smoker, Neck pain, Abnormal TSH, Atypical chest pain [facility] Phone Encounter On: 27-May-2016 14:46 Encounter Diagnosis: Other specified nutritional anemias End: 27-May-2016 14:50 [facility] Visit On: 25-May-2016 11:07 Encounter Reason: Follow up for chronic medical issues - The patient feels well with no complaints, has good energy level and is sleeping well. Patient has been compliant with instructions. Current medication use: no ayush End: 25-May-2016 22:33 e effects and compliant with dosing regimen. Patient sleeps 6 (alternates- sometimes 3hrs) hours per night. Nutrition: balanced diet and inappropriate diet. The medical issues the patient is following u p for include All identified problems below, blood sugar issues, cardiac issues (cad), fibromyalgia, gastric reflux, high blood pressure, high cholesterol, osteoporosis/osteopenia and other (anemia, ROME, allergic rhinitis, arthritis, katina, carotid stenosis). Note for Follow up for chronic medical issues: did have eye exam and no more gi sx and bp is good and sugar is normal and has cut back on sweets- she is seeing Dr Graham and had allergy testing and is allergic to everything and now getting allergy injections - hasnt changed cough yet but early the ear is intermittent sharp pain- knees better - Cipriano thinks her chest sx are muscluar , [ADDITIONAL REASON] Follow up tests - Diagnostic tests include other (labs). Date: (04/2016). Encounter Diagnosis: Other hyperlipidemia, Non-smoker, BMI 25.0- 25.9,adult, Gastroesophageal reflux disease without esophagitis, Bilateral carotid artery stenosis, Abnormal TSH, Anemia, Hypertension, benign, Lung nodule, Impaired Fasting Glucose (Renamed from Elevated fasting blood sugar) [facility] Visit On: 14-Apr-2016 14:56 Encounter Reason: Follow up acute care visit - The patient feeling better since last seen and improving. Patient has been compliant with instructions. Current medication use: no side effects, compliant with dosing regime End: 14-Apr-2016 15:19 n and considered effective by patient. Patient sleeps 7 hours per night. Impact of disease: emotional impact-mild. Nutrition: balanced diet and supplemental vitamins. The medical issues the patient is following up for include other (dehydration ). Encounter Diagnosis: Dehydration, Non-smoker, Hypokalemia [facility] Phone Encounter On: 09-Apr-2016 14:28 Encounter Diagnosis: Hypokalemia End: 09-Apr-2016 14:30 [facility] Visit On: 09-Apr-2016 11:15 Encounter Diagnosis: Gastroenteritis, Dehydration, Atrial fibrillation End: 09-Apr-2016 12:19 [facility] Phone Encounter On: 09-Apr-2016 10:17 Encounter Diagnosis: Nausea End: 09-Apr-2016 10:24 [facility] Lab Order On: 09-Apr-2016 9:08 Encounter Diagnosis: Gastroenteritis End: 09-Apr-2016 10:09 [facility] Phone Encounter On: 24-Feb-2016 16:10 Encounter Diagnosis: Abnormal TSH, Anemia End: 24-Feb-2016 16:13 [facility] Visit On: 12-Feb-2016 8:07 Encounter Reason: Physical female exam - General health: feels well with no complaints, has good energy level and is sleeping well. The patient's appetite is normal. Nutrition: normal/adequate. Exercises 2 days per week. End: 26-Feb-2016 22:16 Sleeps on average 7 hours per night. Normal bowel and bladder habits. Safety measures include appropriate use of safety belts and home smoke detectors. There are no current emotional problems. 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 Date: (01/29/16). Encounter Diagnosis: [facility], Non-smoker, BMI 25.0-25.9,adult, Need for prophylactic vaccination and inoculation against influenza (Renamed from Need for immunization against influenza), Lung nodule, Anemia, Abnormal TSH, Impaired Fasting Glucose (Renamed from Elevated fasting blood sugar), Gastroesophageal reflux disease without esophagitis, Bilateral carotid artery stenosis, Other hyperlipidemia, Osteoporosis, Memory loss [facility] Phone Encounter On: 30-Jan-2016 7:25 Encounter Diagnosis: Abnormal TSH End: 30-Jan-2016 7:26 [facility] Visit On: 20-Nov-2015 11:12 Encounter Reason: Punch Biopsy - abnormal skin lesion on left upper forearm-elbow area.Encounter Diagnosis: Neoplasm of uncertain behavior of skin, Non-smoker End: 20-Nov-2015 13:13 [facility] Visit On: 13-Nov-2015 15:11 Encounter Reason: Follow up for chronic medical issues - The patient feels well with minor complaints (cough continues, clear mucas), has good energy level and is sleeping well. Patient has been compliant with instructio End: 17-Nov-2015 20:03 ns. Current medication use: no side effects and compliant with dosing regimen. Patient sleeps 6 (alternates- sometimes 3hrs) hours per night. Nutrition: inappropriate diet. The medical issues the patien t is following up for include All identified problems below, blood sugar issues, cardiac issues (cad), fibromyalgia, gastric reflux, high blood pressure, high cholesterol, osteoporosis/osteopenia and ot her (anemia, ROME, allergic rhinitis, arthritis, katina, carotid stenosis). Note for Follow up for chronic medical issues: has seen lung doc they are follwoing lung nodule not growin gand she back on advai r for copd/cough - and was [facility] they monitoring her = bp is good weight down few pounds and watching her diet - no gerd- - saw Christopher for knee and he iniitiating treatment not quite as bad- she has had cough for many years and seen pulm for workup - she apprentlyhas longstanding allergies used to get shots not getting now would reconsider, [ADDITIONAL REASON] Follow up tests - Diagnostic tests include other (labs). Date: (11/05/15). Encounter Diagnosis: Impaired Fasting Glucose (Renamed from Elevated fasting blood sugar), Non-smoker, Abnormal TSH, Acute pain of left knee, Hypertension, benign, Other specified nutritional anemias, Bilateral carotid artery stenosis, Gastroesophageal reflux disease without esophagitis, COPD (chronic obstructive pulmonary disease), Encounter for screening mammogram for breast cancer (Renamed from Encounter for screening mammogram for malignant neoplasm of breast), Cough, Neoplasm of uncertain behavior of skin [facility] Visit On: 07-Oct-2015 11:07 Encounter Reason: Knee Pain - Symptoms include knee pain, decreased range of motion, difficulty bearing weight and difficulty ambulating, while symptoms do not include swelling, warmth, redness or stiffness. Symptoms are End: 07-Oct-2015 11:44 located in the left knee. The pain radiates to the left lower leg. The patient describes the pain as sharp and aching. Onset was sudden week(s) ago. The symptoms occur constantly. The patient describes symptoms as moderate in severity and worsening. Symptoms are exacerbated by motion at the knee, weight bearing, walking, kneeling and squatting. Associated symptoms do not include fever or chills. The patient is not currently being treated for this problem. Note for Knee pain: weight down hasnt been eating as much junk- new issue ab out 2 weeks notice left knee hurts on the side and back when walki ng- not with sitting much- no trauma not swelling- tylenol not helpingEncounter Diagnosis: Acute pain of left knee [facility] Office Visit On: 30-Jul-2015 11:30 Encounter Reason: Follow up tests - Diagnostic tests include other (labs). Date: (07/27/15). Current symptoms include other (cervical back issues continue- radiating into right shoulder now)., End: 01-Aug-2015 22:14 [ADDITIONAL REASON] Shoulder Problem - Note for Shoulder problem: right shoulder bothers her and neck stiff - pain into axilla and radiates ??down to upper arm- no weak or numb in arm- can radiate into [id number] Encounter Diagnosis: Chronic right shoulder pain, Tobacco abuse, in remission (Renamed from Tobacco dependence in remission), Hypertension, benign, Other hyperlipidemia, Chest pain at rest [facility] Visit On: 17-Jul-2015 9:53 Encounter Reason: Annual Medicare Exam - The patient had reviewed and updated the family history, medication/s, past medical history and social history. Yes the patient did have (Mini mental exam passed with .whispe End: 18-Jul-2015 9:39 r test passed with 05/22.) a mini mental status exam done today. The activities of daily living the patient needs help with are none. The patient has driven in past 6 months, but the patient has not had f ecal incontinence, had urinary incontinence, missed or ran out of medications to soon, fallen in the past 6 months, gotten lost, has a medalert necklace or bracelet, put area rugs through house or put h andrails in bathroom. The patient has completed the following preventative measures: mammography (2014) and colonoscopy (08/2014- repeat in 4 years). The patient does have durable power of consumer attorney and l iving will (she thinks). The patient has noticed staying at home rather than doing something new or going out and lack of energy. Other providers contributing to the patient's care are extrusion former (Dr. Cota), hollock maker (Dr. Pop) and other: (Digital Advisor- Dr. Villa sees eye dr mann.). Note for Annual Medicare Exam: bps have been good at home- saw cardio about cp they feel it is blood clot doing it-at this point Encounter Diagnosis: Medicare annual wellness visit, initial, Other hyperlipidemia, Osteoporosis [facility] Office Visit On: 02-Jul-2015 9:34 Encounter Reason: Back pain - The onset of the pain has been sudden and has been occurring in a persistent pattern for 2 days. The course has been increasing. The pain is characterized as stabbing. The pain is described End: 02-Jul-2015 22:47 as being located in the upper back (thorasic area- where bra is). There are no precipitating factors. The symptoms have no aggravating factors. The symptoms have no relieving factors. There has been no associated abdominal pain, chills, fever or hip pain. Note for Pain: Radiates into her chest.- mid thoracic and up to shoulders and into chest- not more sob- cough has improved- not coughing up much - no fever- just came on yesterday when sitting on couch-hadnt been doing anything prior- she saw Dr montiel on 06/19 for chest pain this unlike that she was sent to er and had stress test and seen by car meek - stress test neg and cta showed the blood clots looked better but had pneumonia- was sent home on cefdiniir- she said she had some of this while in hospitla and this not as bad as the pain while in the hospital -- p[ain is constant- -moving and coughing doesnt make worse - but can reach and pinpoint with left hand over right shoulder where hurt and can reproduce - Encounter Diagnosis: Chest pain, unspecified type, Pulmonary emboli [facility] Visit On: 20-Jun-2015 9:43 Encounter Reason: Follow up acute care visit - The patient worsening. Patient has been compliant with instructions. Current medication use: no side effects, compliant with dosing regimen and considered effective by patie End: 20-Jun-2015 12:12 nt. Patient sleeps 7 hours per night. Impact of disease: emotional impact-mild. Nutrition: balanced diet and supplemental vitamins. The medical issues the patient is following up for include other (PE/chest pain ).Encounter Diagnosis: Pulmonary emboli, Tobacco abuse, in remission (Renamed from Tobacco dependence in remission), Unstable angina [facility] Office Visit On: 18-Jun-2015 11:41 Encounter Reason: Transition into care - The patient is transitioning into care from a hospital and a summary of care was reviewed ., [ADDITIONAL REASON] Follow up hospital - Reason for ER visit: note: (PE). The patient feels well wit End: 18-Jun-2015 22:57 h minor complaints (feeling better, but some sore throat yet and coughing), has decreased energy level and is sleeping well. Patient has been compliant with instructions. Current medication use: no side effects and compliant with dosing regimen. Patient sleeps 5 hours per night. Note for Follow up hospital: had chest pain sent to er had bilateral pulm emboli- and is on xarelto- no travel and no rece nt procedures- she saw Dr Pop prior to coming - and should be on xarelto for 6 months- no leg swelling- sx have improved less pain little sob Encounter Diagnosis: Pulmonary emboli, Lung nodule, Bilateral carotid artery stenosis, Bronchitis, acute [facility] Historical Summary On: 17-Jun-2015 13:57 Encounter Diagnosis: Pulmonary emboli End: 17-Jun-2015 14:34 [facility] Office Visit On: 13-Jun-2015 9:34 Encounter Diagnosis: Chest pain at rest, Shortness of breath at rest, Hypertension, benign, Coronary artery disease, Abnormal stress test End: 13-Jun-2015 9:54 [facility] Phone Encounter On: 31-May-2015 15:06 Encounter Diagnosis: Hypertension, benign End: 31-May-2015 15:07 [facility] Office Visit On: 27-May-2015 10:10 Encounter Reason: Follow up tests - Diagnostic tests include cardiovascular nuclear scan and treadmill exercise stress test. Date: (05/23/15). Note for Discuss procedure results: she does occasionally have palps has cut End: 27-May-2015 22:27 back on caffeine no chest pain recently- and her bp ??looks better since last visit - is taking aspirin dailyEncounter Diagnosis: Abnormal stress test, Atrial fibrillation, Bilateral carotid artery stenosis, Hypertension, benign [facility] Office Visit On: 20-May-2015 10:15 Encounter Reason: Follow up for chronic medical issues - The patient feels well with minor complaints (allergies flared up- singular not helping), has good energy level and is sleeping well. Patient has been compliant wi End: 21-May-2015 20:28 th instructions. Current medication use: no side effects and compliant with dosing regimen. Patient sleeps 7 hours per night. Nutrition: inappropriate diet. The medical issues the patient is following u p for include All identified problems below, blood sugar issues, cardiac issues (cad), fibromyalgia, gastric reflux, high blood pressure, high cholesterol, osteoporosis/osteopenia and other (anemia, ROME, allergic rhinitis, arthritis, katina, carotid stenosis). Note for Follow up for chronic medical issues: she feeling pretty good other than allergy symtpoms- getting chest pain at night has happen once e very few months like used to- lasts minutes to hour never with exertion no sob no syncope- doesnt take anything just goes away- not sure if gerd, [ADDITIONAL REASON] Follow up tests - Diagnostic tests include other (labs). Date: (05/10/15). Encounter Diagnosis: Impaired Fasting Glucose (Renamed from Elevated fasting blood sugar), Bilateral carotid artery stenosis, Precordial pain, Other specified nutritional anemias, Osteoporosis, Gastroesophageal reflux disease without esophagitis, Hypertension, benign, Other hyperlipidemia, Abnormal urine [facility] Office Visit On: 06-Mar-2015 11:06 Encounter Diagnosis: Need for zoster vaccination (Renamed from Need for shingles vaccine) End: 06-Mar-2015 11:20 [facility] Office Visit On: 20-Feb-2015 9:55 Encounter Reason: Injections - The medication the patient is here to receive is other.Encounter Diagnosis: Pneumococcal vaccination given End: 20-Feb-2015 10:23 [facility] Office Visit On: 11-Feb-2015 10:58 Encounter Reason: Follow up for chronic medical issues - The patient feels well with minor complaints (left leg pain), has good energy level and is sleeping well. Patient has been compliant with instructions. Current med End: 11-Feb-2015 11:50 ication use: no side effects and compliant with dosing regimen. Patient sleeps 7 hours per night. Nutrition: inappropriate diet. The medical issues the patient is following up for include All identified problems below, blood sugar issues, cardiac issues (cad), fibromyalgia, gastric reflux, high blood pressure, high cholesterol, osteoporosis/osteopenia and other (anemia, ROME, allergic rhinitis, arthriti s, katina, carotid stenosis). Note for Follow up for chronic medical issues: she saw neuro they put her back on valproex and we talked about how that gave her toxicity before- she having headaches and he trying to set her up with bipap to see if helps- she ;seeing heme and her count doing better has follwoup in next 2 months- seeing Yassine and her lung nodule and stuff is getting better- still coughing and he working ont his=- no gerd or stomach issues- no syncope, [ADDITIONAL REASON] Follow up tests - Diagnostic tests include other (labs). Date: (01/2015). , [ADDITIONAL REASON] Leg pain - The leg pain began gradually over time and has been occurring for months. The symptoms have been occurring in an intermittent pattern. The symptoms are described as a tig htness and piercing pain and are moderate in severity. There is involvement of the left lower extremity. Note for Leg pain: comes and goes- happens when stands up or streetches out- if bends knee sto ps - never with sitting- lasts tendinous - only lasts seconds we discussed come back if becomes mopre persistant think tendon or nerve Encounter Diagnosis: Other hyperlipidemia, Need for prophylactic vaccination and inoculation against influenza (Renamed from Need for immunization against influenza), Other specified nutritional anemias, Trigger finger of left thumb, Bilateral carotid artery stenosis, Hypertension, benign, GERD (gastroesophageal reflux disease), Lung Nodule (518.89), Impaired Fasting Glucose (Renamed from Elevated fasting blood sugar) [facility] Office Visit On: 13-Nov-2014 11:05 Encounter Reason: Follow up tests - Diagnostic tests include other (labs). Date: (11.05.2014 & 10.23.14 & 10.02.14). Note for Discuss procedure results: Feeling good other than her chronic cough and headaches which she sees neuro for., End: 13-Nov-2014 22:40 [ADDITIONAL REASON] Trigger Finger - Left thumb. Duration of couple weeks. No known cause or injury. Aches and sometimes hurts. Encounter Diagnosis: Headache (784.0), Osteoporosis (733.00), Hypertension,benign(401.1), GERD (530.81), Hyperlipidemia, Unspecified (272.4), Impaired Fasting Glucose (Renamed from Elevated fasting blood sugar), Knee Pain (Renamed from Gonalgia), Trigger thumb [facility] Phone Encounter On: 31-Oct-2014 10:25 Encounter Diagnosis: Osteoporosis (733.00) End: 31-Oct-2014 10:28 [facility] Phone Encounter On: 25-Oct-2014 10:43 [facility] End: 25-Oct-2014 10:52 Refill Request On: 09-Oct-2014 11:54 Encounter Diagnosis: Headache (784.0) End: 09-Oct-2014 12:01 [facility] Office Visit On: 25-Sep-2014 10:11 Encounter Reason: Follow up for chronic medical issues - The patient feels well with minor complaints (priya naiknt helping with the knee pain/arthritis), has good energy level and is sleeping well. Patient has been compli End: 25-Sep-2014 22:08 ant with instructions. Current medication use: no side effects and compliant with dosing regimen. Patient sleeps 7 hours per night. Nutrition: inappropriate diet. The medical issues the patient is follo wing up for include All identified problems below, blood sugar issues, cardiac issues (cad), fibromyalgia, gastric reflux, high blood pressure, high cholesterol, osteoporosis/osteopenia and other (anemi a, ROME, allergic rhinitis, arthritis, katina, carotid stenosis). Note for Follow up for chronic medical issues: he saw Dr Burns and had bone marrow biopsy and told neg - she was getting iv iron and wouldn t hold so had colonsocopy- one polyp and followup 4 years per patient she has appt with jade today- saw pulm and doing more workup on nodule and pfts- and amitryptyline not effective- on botox workedEncounter Diagnosis: Impaired Fasting Glucose (Renamed from Elevated fasting blood sugar), Headache (784.0), Lung Nodule (518.89), Hyperlipidemia, Unspecified (272.4), Anemia(285.9), Knee Pain (Renamed from Gonalgia), Hypertension,benign(401.1), GERD (530.81), screening [facility] Office Visit On: 14-Jun-2014 11:16 Encounter Reason: Follow up tests - Diagnostic tests include other (labs). Date: (06/05/14). Follow up visit with no current symptoms. Note for Discuss procedure results: Pt states she's feeling much better.-not dizzy s End: 14-Jun-2014 13:14 yncope and thinking better - and bp is good - knees hurt alot not swelling stairs an issue- has appt with dr Pop next weekEncounter Diagnosis: Hyperlipidemia, Unspecified (272.4), Knee Pain (Renamed from Gonalgia), Headache (784.0), Drug toxicity , Syncope, Carotid Stenosis (433.10), Anemia(285.9), Lung Nodule (518.89), Cough [facility] Office Visit On: 07-May-2014 10:10 Encounter Reason: Follow up tests - Diagnostic tests include other (labs). Date: (04/23/14). Current symptoms include joint pains (right shoulder- arthritis?). Note for Discuss procedure results: nomore dizzy or syncope End: 07-May-2014 20:07 and bp was better- no gerd -feeling signfiicantly better- hemoglobin coming up - may have been the toxicity from depakote- still cough despite levaquin has had for long time- shoulder beter now last week had hard time lifting no trauma better now Encounter Diagnosis: Hyperlipidemia, Unspecified (272.4), Abnormal CT of the chest, Anemia(285.9), Carotid Stenosis (433.10), Lung Nodule (518.89), Cough, Hypertension,benign(401.1) [facility] Phone Encounter On: 24-Apr-2014 10:14 [facility] End: 24-Apr-2014 10:20 Office Visit On: 23-Apr-2014 9:54 Encounter Reason: Follow up tests - Diagnostic tests include CT scan (cta chest and brain) and other (labs). Date: (04/16/14 and 04/17/14). Current symptoms include other (bp's have been elevated). Note for Discuss proced End: 24-Apr-2014 15:54 ure results: in general feeling better she is less sedate off depakaote and edema better and balance better and fatigue better- she was using divalproex for headaches- - not getting headaches back off this- sees Katy for cpap and liliana for rome- was not taking losarten that she has rx and needs to with bp - cough crhonic ??but some better with levaquin- was told anemic in [place] but long time ago- she not see blood in stool or dark stools and had colosnocopy few years ago ok and no blood in stoolEncounter Diagnosis: Hyperlipidemia, Unspecified (272.4), Headache (784.0), arthritis,unspecified (716.90), Hypertension,benign(401.1), Cough, Lung Nodule (518.89), Carotid Stenosis (433.10), Impaired Fasting Glucose (Renamed from Elevated fasting blood sugar), Anemia(285.9), Allergic Rhinitis(477.9), GERD (530.81), Coronary Artery Disease (414.00), D-dimer, elevated, Swelling of Limb (Renamed from Limb swelling), Drug toxicity [facility] Phone Encounter On: 17-Apr-2014 16:21 Encounter Diagnosis: Unspecified Diagnosis End: 17-Apr-2014 16:23 [facility] Phone Encounter On: 17-Apr-2014 12:58 Encounter Diagnosis: D-dimer, elevated End: 17-Apr-2014 13:00 [facility] Office Visit On: 16-Apr-2014 14:23 Encounter Reason: Syncope - The onset of the syncope has been sudden and has been occurring in an intermittent pattern for 3 months. The course has been recurrent. There has been no associated chest pain, dizziness, head End: 16-Apr-2014 22:47 ache, nausea, palpitations, sweating or vertigo. Note for Syncope: gets glaze over eyes looses color- and then goes out- usually when standing - not when sitting- usually when changes position- was ab le to run and work out side until last 2 years- - 4-5 years ago had - had cath and has blockages- saw Dr wiggins for same sx- and just had echo doesnt have results- , [ADDITIONAL REASON] Edema - The onset of the edema has been gradual and has been occurring in an intermittent pattern for 3 months. The course has been increasing. The edema is described as being locat ed in both lower extremities. There has been no associated abdominal pain, chest pain, dyspnea, redness or calf pain. Note for Edema: checks bp at home routienly at home running 130/90- but sometimes diastolic 70s - Encounter Diagnosis: Syncope, Swelling of Limb (Renamed from Limb swelling), Fatigue [facility] Payers [place]/Medicare Adv Olivia LOPEZ; a guarantor
--- OUTSIDE RECORDS SUMMARY | 2018-04-13 15:08 | XMS RPT_ITS | Continuity of Care Document ---
:1945 Author Organization [facility] Address [address] [place] [address] Phone Care Team Providers Name Role Phone Enrike Jaimes DO Unavailable Cipriano JC, Mike Avelar Unavailable Dayron Monique Unavailable Domenic Navarrete Orlando Unavailable Steven Carlisle MD Unavailable [facility], [facility] Unavailable Phong Graham Unavailable Mao Benitez Unavailable [...] 90 {Tablet} Refills: 3 Ordered:09-Oct-2017 Faviocatalina HUSAINnj MCUDFFIE, Enrike A Start : 09-Oct-2017 Active ASPIRIN [...] 12-Jul-2017 Active Comments:Pt gets funding thru the [employer] so send a bill to either them or the pt and then they will re-bypcfks-dya 07/28/16 RaNITidine HCl 300 MG Oral Tablet [...] 500MG (Oral Tablet) 1 (one) Tablet daily p14bmle for 14 days Quantity: 14 {Tablet} Refills: [...] : 26-Mar-2017 Inactive Comments:take with food in [facility] meloxicam while on this Promethazine HCl 12.5 [...] evualate at [facility] i [facility], called in [employer], told her brat diet slowly, my nurse [...] Visit Report Result: Comments: See Note; NOTES: [facility] [address] [place] [address] [place] [address] OFFICE VISIT Date of Service: 01/25/18 1145 MR#: [id number] Acct: [id number] Name: LUPE LOPEZ Rep #: [id number] : 1945 From: Red Spaulding MD Age/Sex: [...] Iron supplements with Vitamin C o r [place] juice. Check stool for FOBT. RTC 6 [...] Chronic Code Visit Office Visits / Consults: 62306 OV L3 Est 01/25/18 1153 <Electronically signed by Red Spaulding MD> Date Red Spaulding MD Cosigner Signature: Date (if applicable) CC: Enrike Jaimes DO 23-Dec-2017 Cerv Spine 2 or 3 Views Result: Comments: See Note; NOTES: [facility] Imaging Services [address] [place] [address] Cerv Spine 2 or 3 Views MR#: [id number] Acct: [id number] Name: LUPE LOPEZ Rep #: [id number] : 1945 F 72 From: Ming Odonnell MD PCP: Enrike Jaimes DO Status: REG CLI Study: Cerv Spine 2 or 3 Views Date of Exam: 12/23/17 Exam# [id number] Ordering Dr: Karla Berry PRODUCTION MACHINIST-C STUDY: X-RAY - C ERVICAL SPINE REASON [...] Fax CC: Enrike Jaimes DO; Karla Berry Automatic Dry Starch Operator: Signed 23-Dec-2017 Thoracic Spine 2 Views Result: Comments: See Note; NOTES: [facility] Imaging Services [address] [place] [address] Thoracic Spine 2 Views MR#: [id number] Acct: [id number] Name: LUPE LOPEZ Rep #: [id number] : 1945 F 72 From: Ming Odonnell MD PCP: Enrike Jaimes DO Status: REG CLI Study: Thoracic Spine 2 Views Date of Exam: 12/23/17 Exam# [id number] Ordering Dr: Karla Berry STUDY: X-RAY - [...] CC: Enrike Jaimes DO; Karla LOPEZ Prebish Automatic Dry Starch Operator: Signed 11-Dec-2017 Carotid Duplex Ultrasound Result: Comments: See Note; NOTES: [facility] Cardiovascular Services [address] [place] [address] Carotid Duplex Ultrasound 12/10/17 1013 MR#: [id number] Acct: [id number] Name: LUPE BOOGIE Rep #: [id number] : 1945 72 From: Brice Murphy MD Attending Dr: Enrike Jaimes DO Status: REG CLI Ordering Dr: Enrike Jaimes DO Date: 12/10/17 Location: [facility] Sex: F C Admitted: Reason For Study: [...] the left vertebral artery. Procedure Carotid Duplex 94244. Exam performed in department. Interpretation Summary Mild (<50%) stenosis right extracranial inter nal carotid. Mild (<50%) stenosis left extracranial internal carotid. Flow within the vertebral arteries is antegrade bilaterally. Ordering Physician: Enrike Jaimes Referring Physician: Enrike Jaimes Performed By: Riaz Ashley RVT and Student 12/11/17 1406 Date Brice Murphy MD CC: Enrike Jaimes DO Date Dictated: 12/10/17 1013 Date Transcribed: 12/11/17 1406 Automatic Dry Starch Operator: Signed 10-Dec-2017 SCREENING MAMM (CAD), BILAT Result: Comments: See Note; NOTES: [facility] Imaging Services [address] [place] [address] SCREENING MAMM (CAD), BILAT MR#: [id number] Acct: [id number] Name: LUPE LOPEZ Rep #: [id number] : 1945 F 72 From: Johnny Gilman MD PCP: Enrike Jaimes DO Status: REG CLI Study: SCREENING MAMM (CAD), BILAT Date of Exam: 12/10/17 Exam# [id number] Ordering Dr: Enrike Jaimes DO MAMM OGRAPHY [...] will be sent to the patient by [facility] within 30 days. Approximately 10% of breast cancers are not detected by mammography. A normal mammogram should not delay biopsy of a clinically suspicious abnormality. [id number] Electronical ly Signed: Johnny Gilman MD at 13:14 EDT Tel [phone], Service support , CC: Enrike Jaimes DO Automatic Dry Starch Operator: Signed 30-Nov-2017 Pulmonary Visit Report Result: Comments: See Note; NOTES: [facility] [place] [address] [place] [address] OFFICE VISIT Date of Service: 11/30/17 MR#: [id number] Acct: [id number] Name: LUPE BOOGIE Rep #: [id number] : 1945 Provider: Merlin Pop MD Age/Sex: 72/F [place] [facility] Status: Signed Assessment AND Plan Problems 1. [...] Orders: Medications Discontinued: azelastine admini ster into oeot366.5 mcg (0.14 mL) Intranasal BIDJ30.2 Merlin Pop MD nostril Discontinued Reason: Pt no longer taking HPI 6 M FU: Chief Complaint: Chronic cough Details: Patient is a 72-[facility] [place] [facility], currently under care of Dr. 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 Accompanied by: Family / Other [...] Lung nodule (Chronic) Atherosclerotic heart disease of [place] coronary artery without angina pectoris (Chronic) Moderate [...] Admin Location Lot Number Ex piration Date [facility] Public Health Program Manager 0.5 mL IM Left Deltoid [id number] 07/19/17 87988-170-95 SEQIRUS VIS Given Date VIS Publication Date [...] Downtime Report Result: Comments: See Note; NOTES: [facility] Medical Records Department [address] [place] [address] Downtime Report MR#: [id number] Acct: [id number] Name: LUPE LOPEZ Rep #: [id number] : 1945 72 From: Turner Diop PCP: Enrike Jaimes DO Status: REG CLI This patient was seen during an EMR downtime August 23, 2017 - August 30, 2017. This patient may have a combination of rosa maria r and electronic documentation or all paper documentation. All documentation is viewable within the e-chart portion of [employer] for each patient visit. 27-Aug-2017 Spine Lumbar (Routine) Result: Comments: See Note; NOTES: [facility] Imaging Services [address] [place] [address] Spine Lumbar (Routine) MR#: [id number] Acct: [id number] Name: CHASE LOPEZCatalina Rep #: [id number] : 1945 F 72 From: Carlos Pizano PCP: Enrike Jaimes DO Status: REG CLI Study: Spine Lumbar (Routine) Date of Exam: 08/25/17 Exam# [id number] Ordering Dr: Enrike Jaimes DO STUDY: MRI [...] Tel , Service suppo rt , CC: Enrike Jaimes DO Automatic Dry Starch Operator: Signed 11-Aug-2017 Re-Evaluation - PT (1) Result: Comments: See Note; NOTES: [facility] [address] [place] [address]. [address] [place] [address] Fax REEVALUATION / MEDICARE RECERTI FICATION PHYSICAL THERAPY MR#: [id number] Acct: [id number] Name: LUPE LOPEZ Rep #: [id number] : 1945 72 From: Shanon Ferrara MPT Referring DrBrooke: Enrike Jaimes DO Status: REG RCR Insurance: [facility] MEDICARE PPO SELF PAY INSURANCE Enrike Fast, DO, It has been my pleasure to treat LUPE LOPEZ over the last 7 visits for LOW BACK PAIN. Please see the progress note below for an update on [facility] physical therapy plan of care! Subjective: Pt [...] do not hesitate to contact me at [phone] by phone or if you have questions or concerns regarding this new plan of care! Sincerely, Shanon Ferrara &#60 ;Electronically signed by Shanon Ferrara MPT> 08/11/17 1913 CC: Enrike Jaimes DO Signed For Medicare only, by signing this I certify the plan of care. Physicians Signature Date 27-Jul-2017 Oncology Visit Report Result: Comments: See Note; NOTES: [facility] [address] [facility] [place] [address] OFFICE VISIT Date of Service: 07/27/17 1128 MR#: [id number] Acct: [id number] Name: LUPE LOPEZ Rep #: [id number] : 1945 From: Red Spaulding MD Age/Sex: [...] continue Iron supplements with Vitamin C or [place] juice. RTC 6 months with CBC, CMP, Iron studies. Md dications: Prescriptions This Visit Medication Instructions Recorded Meloxicam [Mobic] 15 mg PO DAILY 06/16/16 Rivaroxaban [Xarelto] 20 mg PO DAILY 06/29/16 Primary Care Provider: Enrike Jaimes DO Refe rring Provider: - Problem List (1) Iron deficiency Status: Resolved Code Visit Office Visits / Consults: 69783 OV L3 Est 07/27/17 1135 <Electronically signed by Red Spaluding MD> Date Red Spaulding MD Cosigner Signature: Date (if applicable) CC: 15-Jul-2017 Stress Report Result: Comments: See Note; NOTES: [facility] Cardiovascular Services [address] [place] [address] MR#: [id number] Acct: [id number] Name: LUPE LOPEZ Rep #: [id number] : [birth year] 72 From: Mike Cota MD [...] %. This note was g enerated with Fres[employer] Mediaation software. It may contain incorrect words, spelling, and punctuation that were not noted in checking the note before signing. 07/15/17 1311 <Electronically s igned by Mike Cota MD> Date Mike Cota MD CC: Enrike Jaimes DO; Mike Cota MD Date Dictated: 07/15/17 130 Date Transcribed: 07/15/17 130 Automatic Dry Starch Operator: PM Signed 08-Jul-2017 Inital Evaluation (1) - PT Result: Comments: See Note; NOTES: [facility] Physical Therapy [address] [place], [place] [address] Fax REHABILITATION SERVICES INITIAL EVALUATION MR#: [id number] Acct: [id number] Name: LUPE LOPEZ Rep #: [id number] [...] to be FAXED BACK to us at [phone] for Medicare purposes. Please let me know [...] Visit Report Result: Comments: See Note; NOTES: [facility] [address] [place] [address] OFFICE VISIT Date of Service: 07/05/17 MR#: [id number] Acct: [id number] Name: LUPE LOPEZ Rep #: [id number] : 1945 Provider: Mike Cota MD Age/Sex: 72/F [place] [facility] Status: Signed HPI HPI Details: LUPE LOPEZ, [...] Her previous diagnostic cardiac cathete rization from [facility] from 05/03/2009 is as noted below. ASSESSMENT: 1. Mild to moderate coronary atherosclerosis, non-flow limiting by angiography. 2. Presered left vtyf9tdtwe systolic a nd diastolic function. CLINICAL CORRELATION: This Is a 64-year-old wtio presents with angina ha1ng atypical features, she has nonflowIlmTting disease hr which aggressiw medical therapy is warranted Incl uding aspirin, beta jonn, DAPHNEY Inhibitor, and statin therapy. 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 She will also follow with her machinist/machine builder based on her underlying pulmonary disease process [...] disease) I25.10 Coronary Disease-Associated Arter y/Lesion type: [place] artery Hyperlipidemia, unspecified hyperlipidemia type E78.5 Hyperlipidemia type: unspecified Essential hypertension I10 Hypertension type: essential hypertension Chest pain, unspe cified type R07.9 Chest pain type: unspecified Coding Level of Care Code Off vis,est,level 4 Diagnoses Paroxysmal atrial fibrillation I48.0 CAD (coronary artery disease) I25.10 Coronary Disease-Assoc iated Artery/Lesion type: [place] artery Hyperlipidemia, unspecified hyperlipidemia type E78.5 Hyperlipidemia type: unspecified Essential hypertension I10 Hypertension type: essential hypertension Chest pain, unspecified type R07.9 Chest pain type: unspecified 07/05/17 1123 <Electronically signed by Mike Cota MD> Date Mike washburn MD Cosigner Signature: Date (if applicable) CC: Enrike Jaimes DO 05-Jul-2017 12 Lead EKG performed by [facility] Result: Comments: See Note; NOTES: [facility] [address] [place] [address] 12 Lead EKG performed by [facility] 07/05/17 1033 MR#: [id number] Acct: [id number] Name: LUPE SANDOVAL Rep #: [id number] : 1945 72 From: Mike Cota MD Attending Dr: Mike Cota MD Status: DEP AMB Ordering Dr: Mike Cota MD Date: 07/05/17 [place] [facility] [place]: F C Admitted: BMS/12 Lead EKG performed by [facility] ECG Report Interpretation Sinus Bradycardia -First degree A-V block Poor R wave progressionElectronically signed on 2017 at 11:45 by Mike Cota 07/05/17 1146 Date Mike Cota MD CC: Enrike Jaimes DO Date Dictated: 07/05/171032 Date Transcribed: 07/05/171032 Automatic Dry Starch Operator: PM Signed 16-Jun-2017 Pulmonary Visit Report Result: Comments: See Note; NOTES: [facility] [place] [address] [facility] [place] [address] OFFICE VISIT Date of Service: 06/16/17 MR#: [id number] Acct: [id number] Name: LUPE BOOGIE Rep #: [id number] : 1945 Provider: Kirsten Padilla Age/Sex: 72/F Location[place] [facility] Status: Signed Assessment AND Plan 1. Moderate [...] symptoms, rested and overcame the illness w [facility] intervention. She continues to use Advair twice [...] PO DAILY 06/20/15 [History Confirmed 06/16/17] Ipratropium [place] 0.06% [ATROVENT NASAL SPRAY] 1 spray NASAL [...] BMI 26.0-26.9,adult (Chronic) Atherosclerotic heart disease of [place] coronary artery without angina pectoris (Chronic) Moderate [...] J30.2 Allergic rhinitis trigger: unspe cified 06/16/17 8776 <Electronically signed by Kirsten LOPEZ> Date Kirsten Simer Signature: Date ___ (if applicable) CC: Enrike Jaimes DO 09-Jun-2017 L/S Spine Min 4 Views Result: Comments: See Note; NOTES: [facility] Imaging Services [address] [place] [address] L/S Spine Min 4 Views MR#: [id number] Acct: [id number] Name: LUPE LOPEZ Rep #: [id number] : 1945 F 72 From: Brennan Mike DO PCP: Enrike Jaimes DO Status: REG CLI Study: L/S Spine Min 4 Views Date of Exam: 06/09/17 Exam# [id number] Ordering Dr: Enrike Jaimes DO STUDY: X-RAY [...] Brennan Mike DO at 16:29 EDT Tel [phone], Service support , Fax CC: Enrike Jaimes DO Automatic Dry Starch Operator: Signed 09-Jun-2017 Thoracic Spine 3 Views Result: Comments: See Note; NOTES: [facility] Imaging Services [address] [place] [address] Thoracic Spine 3 Views MR#: [id number] Acct: [id number] Name: LUPE LOPEZ Rep #: [id number] : 1945 F 72 From: Jose Antonio Jensen PCP: Enrike Jaimes DO Status: REG CLI Study: Thoracic Spine 3 Views Date of Exam: 06/09/17 Exam# [id number] Ordering Dr: Enrike Jaimes DO STUDY: X-RAY [...] suppo rt , CC: Enrike Jaimes DO Automatic Dry Starch Operator: Signed 19-Apr-2017 Brain W/WO Contrast Result: Comments: See Note; NOTES: [facility] Imaging Services [address] [place] [address] Brain W/WO Contrast MR#: [id number] Acct: [id number] Name: LUPE LOPEZ Rep #: [id number] : 1945 F 72 From: Steven Ratliff MD PCP: Enrike Jaimes DO Status: REG CLI Study: Brain W/WO Contrast Date of Exam: 04/19/17 Exam# [id number] Ordering Dr: Enrike Jaimes DO STUDY: MRI [...] Service support , CC: Enrike Jaimes DO Automatic Dry Starch Operator: Signed 05-Jan-2017 Hepatobilliary Img w/Pharm Int Result: Comments: See Note; NOTES: [facility] Imaging Services [address] [place] [address] Hepatobilliary Img w/Pharm Int MR#: [id number] Acct: [id number] Name: LUPE LOPEZ Rep # : [id number] : 1945 F 71 From: Dom Sorto DO PCP: Enrike Jaimes DO Status: REG CLI Study: Hepatobilliary Img w/Pharm Int Date of Exam: 01/05/17 Exam# [id number] Ordering Dr: Enrike Jaimes DO CLI NICAL: [...] Service support , CC: Enrike Jaimes DO Automatic Dry Starch Operator: Signed 23-Dec-2016 Gallbladder Result: Comments: See Note; NOTES: [facility] Imaging Services [address] [place] [address] Gallbladder MR#: [id number] Acct: [id number] Name: LUPE LOPEZ Rep #: [id number] : F 71 From: Terri Dash MD PCP: Enrike Jaimes DO Status: REG CLI Study: Gallbladder Date of Exam: 12/23/16 Exam# [id number] Ordering Dr: Enrike Jaimes DO US Gallbladder (abdomen limited) INDICATION: RUQ [...] Service support , CC: Enrike Jaimes DO Automatic Dry Starch Operator: Signed 19-Nov-2016 SCREENING MAMM (CAD), BILAT Result: Comments: See Note; NOTES: [facility] Imaging Services [address] [place] [address] SCREENING MAMM (CAD), BILAT MR#: [id number] Acct: [id number] Name: LUPE LOPEZ Rep #: [id number] : 1945 F 71 From: Johnny Gilman MD PCP: Enrike Jaimes DO Status: REG CLI Study: SCREENING MAMM (CAD), BILAT Date of Exam: 11/19/16 Exam# [id number] Ordering Dr: Enrike Jaimes DO MAMM OGRAPHY [...] Johnny Gilman MD at 11:14 EDT Tel [phone], Service support , CC: Enrike Jaimes DO Automatic Dry Starch Operator: Signed 17-Nov-2016 6 Minute Walk Test Result: Comments: See Note; NOTES: [facility] Pulmonary Services/Neurology [address] [place] [address] MR#: [id number] Acct: [id number] Name: LUPE LOPEZ Rep #: [id number] : 04/14/1944 71 From: Merlin Pop MD Referring Dr: Kirsten Padilla PRODUCTION MACHINIST Date: Ordering Dr: Sex: F C Location: PSN PSN 6 Minute Walk Test - 6 Minute Walk Test 6 Minute Walk Test: 6 Minute Walk Test PS N:6-Minute Walk Test Start: 11/17/16 11:09 Freq: Status: Active Document 11/17/16 11:00 HG (Rec: 11/17/16 11:11 HG [id number]) 6 Minute Walk Test Date Performed 11/17/16 [...] CC: Date Dictated: 11/17/161548 Date Transcribed: 11/17/161548 Automatic Dry Starch Operator: Merlin Pop Signed 12-Nov-2016 Pulmonary Function Report Comp Result: Comments: See Note; NOTES: [facility] Pulmonary Services/Neurology [address] [place] [address] MR#: [id number] Acct: [id number] Name: LUPE LOPEZ Rep #: [id number] : 71 From: Merlin Pop MD Referring Dr: Kirsten Padilla PRODUCTION MACHINIST Status: REG CLI Ordering Dr: Date: Location: [facility] Sex: F C COMPLETE PULMONARY FUNCTION TEST INTERPRETATION Brief HPI: Patient is a 71 year old female, currently under the care of myself, who presents to [facility] for complete pulmonary function tests secondary to [...] Date Dictated: 11/12/16 1533 Date Transcribed: 11/12/161532 Automatic Dry Starch Operator: EDENILSON Signed 06-Oct-2016 Chest without Contrast Result: Comments: See Note; NOTES: [facility] Imaging Services [address] [place] [address] Verdana 4d Chest without Contrast MR#: [id number] Acct: [id number] Name: LUPE LOPEZ p #: [id number] : 1945 F 71 From: Sonam Hendricks MD PCP: Enrike Jaimes DO Status: REG CLI Study: Chest without Contrast Date of Exam: 10/06/16 Exam# [id number] Ordering Dr: Enrike Jaimes DO STUDY: CT [...] Sonam Hendricks MD at 23:59 EDT Tel [phone], Service support , CC: Enrike Jaimes DO Automatic Dry Starch Operator: Signed 29-Sep-2016 Dexa Bone Density Study (HP) Result: Comments: See Note; NOTES: [facility] Imaging Services [address] [place] [address] Verdana 4d Dexa Bone Density Study (HP) MR#: [id number] Acct: [id number] Name: BRAYDON LOPEZ Rep #: [id number] : 1945 F 71 From: Jhonny Gilman MD PCP: Enrike Jaimes DO Status: [facility] CLI Study: Dexa Bone Density Study (HP) Date of Exam: 09/29/16 Exam# [id number] Ordering Dr: Szymanski DO STUDY: DUAL ENERGY [...] Johnny Gilman MD at 9:38 EDT Tel [phone], Service support , CC: Enrike Jaimes DO Automatic Dry Starch Operator: Signed 19-Sep-2016 Carotid Duplex Ultrasound Result: Comments: See Note; NOTES: [facility] Cardiovascular Services [address] [place] [address] Carotid Duplex Ultrasound 09/18/16 1406 MR#: [id number] Acct: [id number] Name: LUPE BOOGIE Rep #: [id number] : 1945 71 From: Brice Murphy MD Attending Dr: Enrike Jaimes DO Status: REG CLI Ordering Dr: Enrike Jaimes DO Date: 09/18/16 Location: [facility] Sex: F C Admitted: Reason For Study: [...] the left vertebral artery. Procedure Carotid Duplex 64616. The exam was diagnostic. Exam performed in [facility]. Interpretation Summary Mild (<50%) stenosis [...] Date Dictated: 09/18/16 1406 Date Transcribed: 09/19/16943 Automatic Dry Starch Operator: Signed 16-Sep-2016 PT D/C Summary (1) Result: Comments: See Note; NOTES: [facility] Physical Therapy Health[address] [place] [address] Fax REHABILITATION SERVICES DISCHAR GE SUMMARY MR#: [id number] Acct: [id number] Name: LUPE LOPEZ Rep #: [id number] [...] PT (1) Result: Comments: See Note; NOTES: [facility] Physical Therapy [facility] [address] [place] [address]. [address] [place] [address] Fax REEVALUATION / MEDICARE RECERTI KALEN Juanito 4d PHYSICAL THERAPY MR#: [id number] Acct: [id number] Name: LUPE LOPEZ Rep #: [id number] : 1945 71 From: Shanon Ferrara MPT [...] do not hesitate to contact me at [phone] by phone or if you have questions or concerns reg arding this new plan of care! Sincerely, Shanon Ferrara <Electronically signed by Shanon Ferrara MPT> 08/26/16 1826 CC: Enrike Jaimes DO Signed For Medic are only, by signing this I certify the plan of care. Physicians Signature Date 28-Jul-2016 Inital Evaluation (1) - PT Result: Comments: See Note; NOTES: [facility] Physical Therapy [facility] [place], [place] [address] Fax REHABILITATION SERVICES INITIAL EVALUATION MR#: [id number] Acct: [id number] Name: LUPE LOPEZ Rep #: [id number] [...] to be FAXED BACK to us at [phone] for Medicare purposes. Please let me know if there are questions or reza rns regarding this plan of care. Physician Signature: Date: <Electronically signed by Shanon Ferrara MPT> 07/28/16 1629 CC: Enrike Jaimes DO Signed For Medicare only, by signing this I certify the plan of care. Physicians Signature Date 08-Jul-2016 Oncology Progress Note Result: Comments: See Note; NOTES: [facility] Medical Records Department [address] [place] [address] Oncology Progress Note MR#: [id number] Acct: [id number] Name: LUPE LOPEZ Rep #: [id number] : 1945 71 From: Red Spaulding MD [...] CMP, iron profile, vitamin B12 and folate. Red Spaulding MD T: NTS JOB: [id number] 07/08/16 1043 <Electronically signed by Red Spaulding MD> Date Red Spaulding MD Cosigner Signature (If Indicated): Date CC: Date Dictated: 06/20 Date Transcribed: 06/30/162251 Automatic Dry Starch Operator: Signed 21-Feb-2016 Chest without Contrast Result: Comments: See Note; NOTES: [facility] Imaging Services [address] [place] [address] Verdana 4d Chest without Contrast MR#: [id number] Acct: [id number] Name: LUPE LOPEZ p #: [id number] : 1945 F 71 From: Barrett Small MD PCP: Enrike Jaimes DO Status: REG CLI Study: Chest without Contrast Date of Exam: 02/21/16 Exam# [id number] Ordering Dr: Enrike Jaimes DO STUDY : [...] MD at 2:43 EST , Service support [phone], CC: Enrike Jaimes DO Automatic Dry Starch Operator: Signed 08-Dec-2015 Pulmonary Function Report Comp Result: Comments: See Note; NOTES: [facility] Pulmonary Services/Neurology [facility] [place] [address] Pulmonary Function Test (Comp) MR#: [id number] Acct: [id number] Name: Evelia LOPEZ Rep #: [id number] : 1945 70 From: Merlin Pop MD Referring Dr: Kirsten Padilla PRODUCTION MACHINIST Status: REG CLI Ordering Dr: Kirsten Padilla PRODUCTION MACHINIST-C Date: 12/06/15 Location: [facility] Sex: F C DATE OF S VICE: [...] patient's primary care physician T: NTS JOB: [id number] 12/08/15 0651 <Electronically signed by Merlin Pop MD> Date __ Merlin Pop MD CC: Merlin Pop MD; Kirsten Padilla; Enrike Jaimes DO Date Dictated: 12/07/15 1235 Date Transcribed: 12/07/15 1235 Automatic Dry Starch Operator: Signed 19-Nov-2015 Bilat Scrn Digital AND CAD Result: Comments: See Note; NOTES: [facility] Imaging Services [address] [place] [address] Verdana 4d Bilat Scrn Digital AND CAD MR#: [id number] Acct: [id number] Name: DYLAN LOPEZ Rep #: [id number] : 1945 F 70 From: Johnny Gilman MD PCP: Enrike Jaimes DO Status: REG CLI Study: Bilat Scrn Digital AND CAD Date of Exam: 11/19/15 Exam# [id number] Ordering Dr: Enrike Jaimes DO MAMMOGRAPHY - [...] delay biopsy of a clinically suspicious abnormality. [id number] Electronically Signed: Johnny Gilman MD at 8:15 ED T Tel [phone], Service support [phone], CC: Enrike Jaimes DO Automatic Dry Starch Operator: Signed 07-Oct-2015 Knee 4 or More Views Result: Comments: See Note; NOTES: [facility] Imaging Services [address] [place] [address] Verda 4d Knee 4 or More Views MR#: [id number] Acct: [id number] Name: LUPE LOPEZ Rep #: [id number] : 1945 F 70 From: Johnny Gilman MD PCP: Enrike Jaimes DO Status: REG CLI Study: Knee 4 or More Views Date of Exam: 10/07/15 Exam# [id number] Ordering Dr: Yamileth Jaimes DO STUDY: X-RAY [...] Johnny Gilman MD at 13:02 EDT Tel [phone], Service support [phone], RAD/Knee 4 or More Views IMPRESSION: Minimal joint effusion. Electronically Signed: Johnny Gilman MD at 13:02 EDT Tel [phone], Service support [phone], CC: Enrike Jaimes DO Automatic Dry Starch Operator: Signed 27-Aug-2015 PT D/C Summary (1) Result: Comments: See Note; NOTES: [facility] Physical [facility] [address] [place] [address]. [address] [place], [place] [address] Fax REHABILITATION RVICES DISCHARGE SUMMARY MR#: [id number] Acct: [id number] Name: LUPE LOPEZ Rep #: [id number] : 1945 70 From: Domenic Ayala PT, Cert. MDT Referring DrBrooke: Enrike Jaimes DO Status: REG R CR Insurance: [employer] MED[employer]ARE [facility] - PT D/C Summary It has been [...] feel free to c all me at [phone]. Thank you for the referral of this patient. Sincerely, Domenic Ayala <Electronically signed by Domenic Ayala PT, Cert. JCT> 08/27/15 1406 CC: Enrike Jaimes DO Signed -Jul-2015 Inital Evaluation (1) - PT Result: Comments: See Note; NOTES: [facility] Physical Therapy [facility] [address] [place] [address]. [address] [place] [address] Fax REHABILITATION SE RVICES INITIAL EVALUATION MR#: [id number] Acct: [id number] Name: LUPE LOPEZ Rep #: [id number] : 1945 70 From: Domenic Ayala PT, [...] to be FAXED BACK to us at [phone] for Medicare purposes. Please let me know [...] 5 Views Result: Comments: See Note; NOTES: [facility] Imaging Services [address] [place] [address] Verdana 4d Cerv Spine 4 or 5 Views MR#: [id number] Acct: [id number] Name: LUPE MCCARTHY Rep #: [id number] : 1945 F 70 From: Vu Hankins MD PCP: Enrike Jaimes DO Status: REG CLI Study: Cerv Spine 4 or 5 Views Date of Exam: 07/30/15 Exam# [id number] Ordering Dr: Szymanski DO STUDY: X-RAY - [...] MD at 17:12 EDT , Service support [phone], RAD/Cerv Spine 4 or 5 Views IMPRESSION: Diffuse oste openia with moderate cervical spondylosis. Electronically Signed: Vu Hankins MD at 17:12 EDT , Service support [phone], CC: Enrike Jaimes DO Automatic Dry Starch Operator: Signed 30-Jul-2015 Shoulder min 2 Views Result: Comments: See Note; NOTES: [facility] Imaging Services [address] [place] [address] Verdana 4d Shoulder min 2 Views MR#: [id number] Acct: [id number] Name: LUPE LOPEZ Rep #: [id number] : 1945 F 70 From: Vu Hankins MD PCP: Enrike Jaimes DO Status: REG CLI Study: Shoulder min 2 Views Date of Exam: 07/30/15 Exam# [id number] Ordering Dr: Enrike Jaimes DO STUDY: X-RAY [...] at 17:12 EDT Tel , Service support [phone], RAD/Shoulder min 2 Views IMPRESSION: Normal x-ray examination of the shoulder. Electronically Signed: Vu Hankins MD 07/29 at 17:12 EDT , Service support [phone], CC: Enrike Jaimes DO Automatic Dry Starch Operator: Signed 02-Jul-2015 Chest PA and Lateral Result: Comments: See Note; NOTES: [facility] Imaging Services [address] [place] [address] Verdana 4d Chest PA and Lateral MR#: [id number] Acct: [id number] Name: LUPE LOPEZ Rep #: [id number] : 1945 F 70 From: Johnny Gilman MD PCP: Enrike Jaimes DO Status: REG CLI Study: Chest PA and Lateral Date of Exam: 07/02/15 Exam# [id number] Ordering Dr: Yamileth Jaimes DO STUDY: X-RAY [...] Johnny Gilman MD at 11:24 EDT Tel [phone], Service support [phone], RAD/Chest PA and Lateral IMPRESSION: The previously seen right upper lobe infiltrate rome s resolved. No acute abnormality is seen at this time. Electronically Signed: Johnny Gilman MD at 11:24 EDT Tel [phone], Service support [phone], CC: Enrike Jaimes DO Automatic Dry Starch Operator: Signed 02-Jul-2015 ELECTROCARDIOGRAM, COMPLETE (ECG) (05095) Comments: ekg showed normal sinus rhythym, normal axis, no acute st/t wave changes sinus maggie Result: [MEASUREMENTS ANALYSIS] Date of Test: 07/02/2015 10:18:39; Heart Rate: 56; OK Interval: 222; QRS: 100; QT Interval: 448; Corrected QT Interval (QTc): 441; P Wave [place]: 90; QRS Wave [place]: 6; T Wave [place]: 18; Blood Pressure: 156/64 [ECG DIAGNOSTIC STATEMENTS] Date of Test: 07/02/2015 10:18:39; Summary: Sinus Bradycardia -First degree A-V block Tessy = 222BORDERLINE RHYTHM 02-Jul-2015 Spirometry (62363) Comments: good effort and curve normal Result: 24-Jun-2015 Venous Duplex Lower Extremity Result: Comments: See Note; NOTES: [facility] Cardiovascular Services [address] [place] [address] Venous Duplex US - Ibrahima Extrem 06/24/15 1102 MR#: [id number] Acct: [id number] Name: LUPE LOPEZ Rep #: [id number] : 1945 70 From: Brice Murphy MD [...] Dictated: 06/24/15 1102 Date Transcribed: 06/24/15 1908 Automatic Dry Starch Operator: Signed 20-Jun-2015 CTA Chest W/WO Contrast Result: Comments: See Note; NOTES: [facility] Imaging Services [address] [place] [address] Verdana 4d CTA Chest W/WO Contrast MR#: [id number] Acct: [id number] Name: LUPE MCCARTHY Rep #: [id number] : 1945 F 70 From: Johnny Gilman MD PCP: Enrike Jaimes DO Status: REG ER Study: CTA Chest W/WO Contrast Date of Exam: 06/20/15 Exam# [id number] Ordering Dr: Sonam Colon MD STUDY: CTA [...] Johnny Gilman MD at 15:25 EDT Tel [phone], Service support , CC: Enrike Jaimes DO; Sonam Sheth MD Automatic Dry Starch Operator: Signed 20-Jun-2015 Chest 1 View (Portable) Result: Comments: See Note; NOTES: [facility] Imaging Services [address] [place] [address] Verda 4d Chest 1 View (Portable) MR#: [id number] Acct: [id number] Name: LUPE MCCARTHY Rep #: [id number] : 1945 F 70 From: Johnny Gilman MD PCP: Enrike Jaimes DO Status: REG ER Study: Chest 1 View (Portable) Date of Exam: 06/20/15 Exam# [id number] Ordering Dr: Sonam Colon MD STUDY: X-RAY [...] Johnny Gilman MD at 13:07 EDT Tel [phone], Se rvice support [phone], RAD/Chest 1 View (Portable) IMPRESSION: Focal infiltration in the right upper lobe. Electronically Signed: Johnny Gilman MD at 13:07 EDT Tel [phone], Service support [phone], CC: Enrike Jaimes DO; Sonam Sheth MD Automatic Dry Starch Operator: Signed 20-Jun-2015 ELECTROCARDIOGRAM, COMPLETE (ECG) (45702) Result: [MEASUREMENTS ANALYSIS] Date of Test: 06/20/2015 10:36:19; Heart Rate: 61; OK Interval: 216; QRS: 100; QT Interval: 426; Corrected QT Interval (QTc): 427; P Wave [place]: 62; QRS Wave [place]: 8; T Wave [place]: 28; Blood Pressure: 160/62 [ECG DIAGNOSTIC STATEMENTS] Date of Test: 06/20/2015 10:36:19; Summary: Sinus Rhythm WITHIN NORMAL LIMITS 15-Jun-2015 Echocardiogram Complete Result: Comments: See Note; NOTES: [facility] Cardiovascular Services [address] [place] [address] Echo Complete 06/12/15 1110 MR#: [id number] Acct: [id number] Name: LUPE PHILLIPS Rep #: [id number] : 1945 70 From: Mike Cota MD Attending Dr: Mike Cota MD Status: PRE CLI Ordering Dr: Mike Cota MD Date: 06/12/15 Location: [facility] Sex: F C Admit benjamin: Reason For Study: CAD/ASHD Procedure This was a 2D Doppler, Color Flow transthoracic echocardiogram. The exam was of adequate technical quality. Exam performed in department. PT did NOT take am HTN med, will take as soon as she gets home and monitor her BP this afternoon. Instructed to call [facility] if systolic BP does not [...] Dictated: 06/12/15 1110 Date Transcribed: 06/15/15 1226 Automatic Dry Starch Operator: Signed 13-Jun-2015 History and Physical Exam Result: Comments: See Note; NOTES: [facility] Medical Records Department [address] [place] [address] History and Physical 06/13/15 1251 MR#: [id number] Acct: [id number] Name: LUPE LOPEZ Rep #: [id number] : 1945 70 From: Jess Sparrow MD [...] surgery. 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 ENGINEER history Lives: Spouse/ Significant Other Smoking [...] % (Auto) 51.1 Lymph % (Auto) 33.9 [place] % (Auto) 11.5 H Eos % (Auto) [...] View (Portable) Result: Comments: See Note; NOTES: [facility] Imaging Services [address] [place] [address] Verdana 4d Chest 1 View (Portable) MR#: [id number] Acct: [id number] Name: LUPE MCCARTHY Rep #: [id number] : 1945 F 70 From: Vu Hankins MD PCP: Enrike Jaimes DO Status: REG ER Study: Chest 1 View (Portable) Date of Exam: 06/13/15 Exam# [id number] Ordering Dr: Jessie Ogden MD STUDY: X-RAY [...] MD at 10:55 EDT , Service support [phone], RAD/Chest 1 View (Port able) IMPRESSION: Cardiomegaly with mild hyperexpansion. No acute or active cardiopulmonary disease. Electronically Signed: Vu Hankins MD at 10:55 EDT , Service sup port [phone], CC: Enrike Jaimes DO; Kane Ogden MD Automatic Dry Starch Operator: Signed 13-Jun-2015 CTA Chest W/WO Contrast Result: Comments: See Note; NOTES: [facility] Imaging Services [address] [place] [address] Verdana 4d CTA Chest W/WO Contrast MR#: [id number] Acct: [id number] Name: LUPE MCCARTHY Rep #: [id number] : 1945 F 70 From: Johnny Gilman MD PCP: Enrike Jaimes DO Status: REG ER Study: CTA Chest W/WO Contrast Date of Exam: 06/13/15 Exam# [id number] Ordering Dr: Kane Lujan MD STUDY: CTA [...] verbally conveyed by Johnny Gilman MD to [facility] ED RN, on 06/13/2015 12:08:48 (ET). Electronically Signed: Johnny Gilman MD at 12:08 EDT Tel [phone], Service support [phone], N.B. : The above information has been verbally conveyed by Johnny Gilman MD to [facility] ED RN, on 06/13/2015 12:08:48 (ET). CC: Favio Jaimes DO; Kane Ogden MD Automatic Dry Starch Operator: Signed 13-Jun-2015 EKG (64881) Comments: nsr no acute chg Result: [MEASUREMENTS ANALYSIS] Date of Test: 06/13/2015 09:41:07; Heart Rate: 71; OK Interval: 194; QRS: 96; QT Interval: 420; Corrected QT Interval (QTc): 439; P Wave [place]: 68; QRS Wave [place]: 2; T Wave [place]: 29; Blood Pressure: 140/70 [ECG DIAGNOSTIC STATEMENTS] Date of Test: 06/13/2015 09:41:07; Summary: Sinus Rhythm WITHIN NORMAL LIMITS 23-May-2015 Carotid Duplex Ultrasound Result: Comments: See Note; NOTES: [facility] Cardiovascular Services [address] [place] [address] Carotid Duplex Ultrasound 05/23/15813 MR#: [id number] Acct: [id number] Name: LUPE LOPEZ Rep #: [id number] : 1945 70 From: Brice Murphy MD [...] the left vertebral artery. Procedure Carotid Duplex 97819. The exam was diagnostic. Exam performed in [...] Date Dictated: 05/23/1514 Date Transcribed: 05/23/15 233 Automatic Dry Starch Operator: Signed 23-May-2015 Nuclear Stress Test - Treadmil Result: Comments: See Note; NOTES: [facility] Imaging Services [address] [place] [address] Verda 4d Nuclear Stress Test - Treadmil MR#: [id number] Acct: [id number] N ruel: LUPE LOPEZ Rep #: [id number] : 1945 70 From: Mike Cota MD [...] LVEF of 72%. Mike Cota MD T: [facility] JOB: [id number] 05/23/152009 <Electronically signed by Mike Cota MD> Date Mike Cota MD CC: Enrike Jaimes DO Date Dictated: 05/23/15 1023 Date Transcribed: 05/23/15 1023 Automatic Dry Starch Operator: Signed 20-May-2015 ELECTROCARDIOGRAM, COMPLETE (ECG) (24563) Comments: ekg showed normal sinus rhythym, normal axis, no acute st/t wave changes Result: [MEASUREMENTS ANALYSIS] Date of Test: 05/20/2015 11:04:03; Heart Rate: 63; OK Interval: 210; QRS: 99; QT Interval: 408; Corrected QT Interval (QTc): 413; P Wave [place]: 56; QRS Wave [place]: 10; T Wave [place]: 27; Blood Pressure: 152/76 [ECG DIAGNOSTIC STATEMENTS] Date of Test: 05/20/2015 11:04:03; Summary: Sinus Rhythm WITHIN NORMAL LIMITS 11-Apr-2015 12 Lead Electrocardiogram Result: Comments: See Note; NOTES: [facility] Cardiovascular Services [address] [place] [address] 1945[address] 12 Lead EKG 03/28/15 1548 MR#: [id number] Acct: [id number] Name: LUPE BOOGIE Rep #: [id number] : 1945 70 From: Mike Cota MD [...] Normal ECG Confirmed by CIPRIANO JC, MIKE ([id number]), editor index TERRI DIOP (56) on 04/11/2015 2:14:19 PM Referred By: CHRISTOPHER Confirmed By:MIKE COTA MD 04/11/15 141 4 Date Mike Cota MD CC: Enrike Jaimes DO Date Dictated: 03/28/15 1548 Date Transcribed: 03/28/15 1548 Automatic Dry Starch Operator: Signed 25-Dec-2014 Pulmonary Function Report Comp Result: Comments: See Note; NOTES: [facility] Pulmonary Services/Neurology [address] [place] [address] Pulmonary Function Test (Comp) MR#: [id number] Acct: [id number] Name: LUPE PHILLIPS Rep #: [id number] : 1945 69 From: Merlin Pop MD Referring Dr: Merlin Pop MD Status: REG CLI Ordering Dr: Merlin Pop MD Date: 11/27/14 Location: [facility] Sex: F C DATE OF SERVICE: 11/27/2014 [...] and lung volumes. MERLIN POP MD T: [facility] JOB: [id number] . Date: 11/28/14 Tech.: Temp: PBar: Height(in.): Weight(lbs.): Diagnosis: Medication: : Dyspnea Rest: Dyspnea Exercise: Cough: Productive (cc): Persistent: Smoker: How Long (pk/yrs): Stopped (yrs): Cigarettes: Cigars: 1 1438 <Electronically signed by Merlin Pop MD> Date Merlin Pop MD CC: Merlin Ppo MD; Enrike Jaimes DO Date Dictated: 11/03 Date Transcribed: 11/27/141628 Automatic Dry Starch Operator: Signed 23-Oct-2014 PT Discharge Summary Result: Comments: See Note; NOTES: [facility] Physical [facility] [address] [place] [address]. [address] [place] [address] Fax REHABILITATION SERVICES DISCHARGE SUMMARY MR#: [id number] Acct: [id number] Name: LUPE LOPEZ Rep #: [id number] : 1945 69 From: Barbie Mcguire Referring [...] Sneakers. Barbie Mcguire DPT T: [facility] JOB: [id number] <Electronically signed by Monika Mcguire > 10/23/14 1021 CC: Signed 23-Oct-2014 Chest WITH Contrast Result: Comments: See Note; NOTES: [facility] Imaging Services [address] [place] [address] CAT Scan Report MR#: [id number] Acct: [id number] Name: LUPE LOPEZ Rep #: [id number] : 1945 F 69 From: Johnny Gilman MD PCP: Enrike Jaimes DO Status: REG CLI Study: Chest WITH Contrast Date of Exam: 10/23/14 Exam# [id number] Ordering Dr: Merlin Pop MD STUDY: CT [...] Johnny Gilman MD at 14:28 EDT Tel [phone], Service support [phone], Fax CC: Merlin Pop MD; Enrike Jaimes DO Automatic Dry Starch Operator: Signed 02-Oct-2014 Bilat Screvelia Digital AND CAD Result: Comments: See Note; NOTES: [facility] Imaging Services [address] [place] [address] Breast Imaging Report MR#: [id number] Acct: [id number] Name: LUPE LOPEZ Rep #: [id number] : 1945 F 69 From: Johnny Gilman MD PCP: Enrike Jaimes DO Status: REG CLI Study: Bilat Scrn Digital AND CAD Date of Exam: 10/02/14 Exam# [id number] Ordering Dr: Enrike Jaimes DO MAMMOGRAPHY - [...] [facility]. Approximately 10% of breast cancers are not detected by mammography. A normal mammogram should not delay biopsy of a clinically suspicious abnormality. Electronically Signed: Isma Gilman MD at 12:54 EDT Tel [phone], Service support [phone], CC: Enrike Jaimes DO Automatic Dry Starch Operator: Signed 27-Sep-2014 Inital Evaluation - PT Result: Comments: See Note; NOTES: [facility]. [address] [place] [address] Fax REHABILITATION SERVICES INITIAL EVALUATION MR#: [id number] Acct: [id number] Name: LUPE LOPEZ Rep #: [id number] : 1945 69 From: Barbie Mcguire Referring [...] no stent that she does see a deckhand shrimp boat. MEDICATIONS: The patient has a list if [...] is fair. The patient will benefit from [facility] physical therapy to solve the following [...] pain. Barbie Mcguire DPT T: [facility] JOB: [id number] <Electronically signed by Barbie Mcguire > 09/27/14 0823 CC: Signed For Medicare only, by signing this I certify the plan of care. Physicians Signature Date 14-Jun-2014 Knee 4 or More Views Result: Comments: See Note; NOTES: [facility] Imaging Services [address] [place] [address] Radiology Report MR#: [id number] Acct: [id number] Name: LUPE LOPEZ Rep #: [id number] : 1945 F 69 From: Frank Sewell MD PCP: Enrike Jaimes DO Status: REG CLI Study: Knee 4 or More Views Date of Exam: 06/14/14 Exam# [id number] Ordering Dr: Enrike Jaimes DO STUDY: X-R [...] at 7:48 EDT Tel , Service support [phone], CC: Enrike Jaimes DO Automatic Dry Starch Operator: Signed 14-Jun-2014 Knee 4 or More Views Result: Comments: See Note; NOTES: [facility] Imaging Services [address] [place] [address] Radiology Report MR#: [id number] Acct: [id number] Name: LUPE LOPEZ Rep #: [id number] : 1945 F 69 From: Frank Sewell MD PCP: Enrike Jaimes DO Status: REG CLI Study: Knee 4 or More Views Date of Exam: 06/14/14 Exam# [id number] Ordering Dr: Enrike Jaimes DO STUDY: X-R [...] at 7:50 EDT Tel , Service support [phone], RAD/Knee 4 or More Views IMPRESSION: Mild relative narrowing of the medial co mpartment joint space left knee. Generalized osteopenia. Electronically Signed: iMng Sewell MD at 7:50 EDT Tel , Service support [phone], CC: Enrike Jaimes DO Automatic Dry Starch Operator: Signed 16-May-2014 Carotid Duplex Ultrasound Result: Comments: See Note; NOTES: [facility] Cardiovascular Services [address] [place] [address] 05/03/14 1014 MR#: [id number] Acct: [id number] Name: LUPE LOPEZ Rep #: [id number] [...] left ve rtebral artery. Procedure Carotid Duplex 21220. The exam was diagnostic. Exam performed in department. Interpretation Summary Mild (<50%) stenosis right extracranial internal carotid. Mild (<50%) stenosis left extracranial internal carotid. Flow within the vertebral arteries is antegrade bilaterally. ___ Ordering Physician: Enrike Jaimes D.O. Performed By: Rufino Ashley, RVT 05/03/14 1107 Date ____ Brice Murphy MD CC: Enrike Jaimes DO Date Dictated: 05/03/14 1014 Date Transcribed: 05/03/14 1107 Automatic Dry Starch Operator: Signed 23-Apr-2014 [facility] ([id number]) Comments: good effort and curve normal Result: 17-Apr-2014 Brain/Head W/WO Contrast Result: Comments: See Note; NOTES: [facility] Imaging Services [address] [place] [address] CAT Scan Report MR#: [id number] Acct: [id number] Name: LUPE LOPEZ Rep #: [id number] : 1945 F 69 From: Johnny Gilman MD PCP: Enrike Jaimes DO Status: REG CLI Study: Brain/Head W/WO Contrast Date of Exam: 04/17/14 Exam# [id number] Ordering Dr: Enrike Jaimes DO STUDY: CT [...] Johnny Gilman MD at 15:01 EST Tel [phone], Service support [phone], CC: Enrike Jaimes DO Automatic Dry Starch Operator: Signed 17-Apr-2014 CTA Chest W/WO Contrast Result: Comments: See Note; NOTES: [facility] Imaging Services [address] [place] [address] CAT Scan Report MR#: [id number] Acct: [id number] Name: LUPE LOPEZ Rep #: [id number] : 1945 F 69 From: Johnny Gilman MD PCP: Enrike Jaimes DO Status: REG CLI Study: CTA Chest W/WO Contrast Date of Exam: 04/17/14 Exam# [id number] Ordering Dr: Enrike Jaimes DO STUDY: C [...] Johnny Gilman MD at 14:38 EST Tel [phone], Service support [phone], CC: Enrike Jaimes DO Automatic Dry Starch Operator: Signed Immunization Name Dates Details Influenza vaccine, split, 3yrs &>, IM (FLUZONE) on: Nov-2017 Influenza, preserv. 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 [place], [place], [address] Absolute Lymph 1.48 {X10_3/ul} (Normal) Range: 0.83-4.51 [...] Range: 4.4-11.0 :15 Comprehensive Metabolic Profil Comments: [facility] [address] [place], [place], [address] GAP 7 (Normal) Range: 5-15 CO2 29.0 [...] Comments: Please note revised GLUCOSE reference range dqfegejuz39/02/2018. 06-Cty-86977:15 Hemoglobin A1c Comments: [facility] [address] [place], [place], [address] HGB A1C 5.5 % (Normal) Range: 4.2-6.3 :15 Lipid Profile Comments: [facility] [address] [place], [place], [address] VLDL 16 mg/dL (Normal) Range: 5-40 LDL [...] 200-240 mg/dL Borderline >240 mg/dL High Risk 65-Zux-75385:15 Thyroid Stim Hormone (TSH) Comments: [facility] [address] [facility] [address] [place], [place], [address] TSH 4.30 {uIU/mL} (Abnormal) Range: 0.358-3.74 7-Bcm-098763:25 Stool Occult Blood iFOB Comments: [facility] [address] [place], [place], [address] STOB See Note (Normal) Comments: Reason for Laboratory Test . STOB iFOBOccult Blood Negative 80-Ywf-222659:07 CBC W/Diff, Automated Comments: Reason for Laboratory Test .[facility] [address] [facility] [address] [place], [place], [address] Absolute Lymph 1.23 {X10_3/ul} (Normal) Range: 0.83-4.51 [...] 4.2-5.4 WBC 3.4 K/mm3 (Abnormal) Range: 4.4-11.0 62-Dxl-199572:07 Comprehensive Metabolic Profil Comments: Reason for Laboratory Test .[facility] [address] [place], [place], [address] GAP 7 (Normal) Range: 5-15 CO2 29.0 [...] Comments: Please note revised GLUCOSE reference range kuszelncu32/02/2018. 51-Has-785939:07 Ferritin Comments: Reason for Laboratory Test .[facility] [address] [place], [place], [address] FERRITIN 26 ng/mL (Normal) Range: 8-252 09-Bea-718136:07 Iron+Iron Binding Capacity Comments: Reason for Laboratory Test .[facility] [address] [place], [place], [address] IRON SATURATION 17.0 % (Normal) Range: 15.0-55.0 IRON 56 ug/dL (Normal) Range: 50-170 TIBC 329 ug/dL (Normal) Range: 250-450 90-Ghu-262109:47 CBC W/Diff, Automated Comments: [facility] [address] [address] [place], [place], [address] Absolute Lymph 1.23 {X10_3/ul} (Normal) Range: 0.83-4.51 [...] 4.2-5.4 WBC 4.8 K/mm3 (Normal) Range: 4.4-11.0 04-Gqn-547612:47 Comprehensive Metabolic Profil Comments: [facility] Anmbpippty4[address] [place], [address] GAP 9 (Normal) Range: 5-15 CO2 25.0 [...] Comments: Please note revised GLUCOSE reference range /02/2018. 19-Hkp-264956:47 Hemoglobin A1c Comments: [facility] Ptkpjdgwrg8251 [address]. [place], [address] HGB A1C 5.5 % (Normal) Range: 4.2-6.3 52-Lav-878343:47 Lipid Profile Comments: [facility] Ejxcbdforq6372 [address]. [place], [address]1 VLDL 18 mg/dL (Normal) Range: 5-40 LDL [...] 200-240 mg/dL Borderline >240 mg/dL High Risk 23-Wal-027003:47 Thyroid Stim Hormone (TSH) Comments: [facility] Jxuaxdsoqz9663 [address] Rodriguez. [place], [id number] TSH 4.65 {uIU/mL} (Abnormal) Range: 0.358-3.74 37-Kac-859187:32 Thyroid Stim Hormone (TSH) Comments: [facility] Dcbewhxfny2645 [address]. [place], [place], [address] TSH 2.85 {uIU/mL} (Normal) Range: 0.358-3.74 08-Qir-90364:27 Microscopic Examination Comments: PATIENT WAS FASTINGPERFORMED BY: [facility] Nrfotj3314 [facility] [id number] Bacteria Few (Normal) Mucus Threads Present (Normal) Cast Type Hyaline casts (Normal) Casts Present {/lpf} (Abnormal) Epithelial Cells (non renal) 0-10 {/hpf} (Normal) Range: 0 - 10 RBC 0-2 {/hpf} (Normal) Range: 0 - 2 WBC 0-5 {/hpf} (Normal) Range: 0 - 5 :49 CBC W/Diff, Automated Comments: Reason for Laboratory Test [facility] Lblgwkxxsy8860 [address] [place], [place], [address] Absolute Lymph 1.48 {X10_3/ul} (Normal) Range: 0.83-4.51 [...] Metabolic Profil Comments: Reason for Laboratory Test [facility] Rxamefvmwu7487 [place], [address] GAP 5 (Normal) Range: 5-15 [...] Comments: Please note revised GLUCOSE reference range wlortezcn37/02/2018. 20-Jul-20178:49 Ferritin Comments: Reason for Laboratory Test [facility] Wgghkpllfg6700 [place], [address] FERRITIN 29 ng/mL (Normal) Range: 8-252 20-Jul-20178:49 Iron Comments: Reason for Laboratory Test [facility] Ptcuyoerdo4168 [place], [address] IRON 55 ug/dL (Normal) Range: 50-170 :32 Lipid Profile Comments: [facility] Yxvsfohkuw3984 [address] [place], [place], [id number] VLDL 18 mg/dL (Normal) Range: 5-40 LDL [...] mg/dL High Risk :32 Liver Profile Comments: [facility] Szevmccath0562 [place], [address] D BILI 0.09 mg/dL (Normal) Range: 0.00-0.30 T BILI 0.50 mg/dL (Normal) Range: 0.20-1.00 ALT 14 U/L (Normal) Range: 13-56 ALK P 55 U/L (Normal) Range: 45-117 AST 19 U/L (Normal) Range: 15-37 GLOB 3.0 g/dL (Normal) Range: 2.2-4.2 ALB 3.7 g/dL (Normal) Range: 3.2-5.0 T PROT 6.7 g/dL (Normal) Range: 6.4-8.2 :32 Thyroid Stim Hormone (TSH) Comments: [facility] Hpcrtakodv1042 [place], [address] TSH 5.71 {uIU/mL} (Abnormal) Range: 0.358-3.74 :27 SED RATE ERYTHROCYTE (68434) Comments: PATIENT WAS FASTINGPERFORMED BY: LabCoNew Bridge Medical CenterGfbmop3661 [facility] [id number] Sedimentation Rate-Westergren 8 mm/h (Normal) Range: 0-40 :27 C-REACTIVE PROTEIN (50850) Comments: PATIENT WAS FASTINGPERFORMED BY: [facility]6370 [facility] [id number] C-Reactive Protein, Quant 0.6 mg/L (Normal) Range: 0.0-4.9 :27 FOLIC ACID SERUM (49168) Comments: PATIENT WAS FASTINGPERFORMED BY: [facility]6370 [facility] [id number] Folate (Folic Acid), Serum >20.0 ng/mL (Normal) Comments: A serum folate concentration of less than 3.1 ng/mL isconsidered to represent clinical deficiency. :27 VITAMIN B-12 (CYANOCOBALAMIN) Comments: PATIENT WAS FASTINGPERFORMED BY: [facility]6370 [facility] [id number] (81252) Vitamin B12 681 pg/mL (Normal) Range: 232-1245 :27 TSH (THYROID STIMULATING Comments: PATIENT WAS FASTINGPERFORMED BY: [facility]6370 [facility] [id number] HORMONE) (28048) TSH 6.650 {uIU/mL} (Abnormal) Range: 0.450-4.500 :27 LIPID PANEL (13246) Comments: PATIENT WAS FASTINGPERFORMED BY: [facility]6370 [facility] [id number] LDL/HDL Ratio 1.4 {ratio} (Normal) Range: 0.0-3.2 [...] mg/dL (Normal) Range: 100-199 :27 HGB A1C (08915) Comments: PATIENT WAS FASTINGPERFORMED BY: [facility]6370 [facility] [id number] Hemoglobin A1c 5.6 % (Normal) Range: 4.8-5.6 Comments: . Pre-diabetes: 5.7 - 6.4 Diabetes: >6.4 Glycemic control for adults with diabetes: <7.0 :27 serum free light chains Comments: PATIENT WAS FASTINGPERFORMED BY: ChipSensorsNew Bridge Medical CenterQlvynm6235 [facility] [id number] (76311) [place]/Lambda Ratio,S 1.18 (Normal) Range: 0.26-1.65 Free Lambda Lt Chains,S 19.1 mg/L (Normal) Range: 5.7-26.3 Free [place] Lt Chains,S 22.5 mg/L (Abnormal) Range: 3.3-19.4 :27 urine immunofixation (05098) Comments: PATIENT WAS FASTINGPERFORMED BY: [facility]6370 [facility] [id number] THEE Interpretation:U UPEIP (Normal) Comments: No monoclonality detected. :27 serum immunofixation (55690) Comments: PATIENT WAS FASTINGPERFORMED BY: [facility]6370 [facility] [id number] Immunoglobulin M, Qn, Serum 68 mg/dL (Normal) Range: 26-217 Immunoglobulin A, Qn, Serum 111 mg/dL (Normal) Range: 64-422 Immunoglobulin G, Qn, Serum 669 mg/dL (Abnormal) Range: 700-1600 Immunofixation Result, Serum UPEIP (Normal) Comments: No monoclonality detected. :27 URINALYSIS, W/ MICRO (17466) Comments: PATIENT WAS FASTINGPERFORMED BY: [facility]6370 [facility] [id number] Microscopic Examination See below: (Normal) Comments: Microscopic was indicated and was performed. Microscopic Examination MICRON (Normal) Comments: Microscopic follows if indicated. Nitrite, Urine Negative (Normal) Urobilinogen,Semi-Qn 0.2 mg/dL (Normal) Range: 0.2-1.0 Bilirubin Negative (Normal) Occult Blood Negative (Normal) Ketones Negative (Normal) Glucose Negative (Normal) Protein Negative (Normal) WBC Esterase Negative (Normal) Appearance Clear (Normal) Urine-Color Yellow (Normal) pH 6.0 (Normal) Range: 5.0-7.5 Specific [place] 1.019 (Normal) Range: 1.005-1.030 71-Vyv-86245:27 METABOLIC PANEL, COMPREHENSIVE Comments: PATIENT WAS FASTINGPERFORMED BY: [facility]6370 [facility] [id number] (01420) ALT (SGPT) 12 [iU]/L (Normal) Range: 0-32 [...] 8-27 Glucose 91 mg/dL (Normal) Range: 65-99 4-Mer-618380:14 CBC W/Diff, Automated Comments: Reason for Laboratory Test .[facility] Mskqgriuzo93[address] [place], [place], [address] Absolute Lymph 0.91 {X10_3/ul} (Normal) Range: 0.83-4.51 [...] 4.2-5.4 WBC 5.1 K/mm3 (Normal) Range: 4.4-11.0 9-Cit-112011:14 Comprehensive Metabolic Profil Comments: Reason for Laboratory Test .Is Patient Taking Vitamins or Folic Acid Supplements? [facility] [address] [place], [place], [address] GAP 7 (Normal) Range: 5-15 CO2 30.0 [...] 7-18 GLU 100 mg/dL (Normal) Range: 70-110 8-Qwe-875037:14 Ferritin Comments: Reason for Laboratory Test .Is Patient Taking Vitamins or Folic Acid Supplements? [facility] [address] [place], [place], [address] FERRITIN 42 ng/mL (Normal) Range: 8-252 7-Jzg-214874:14 Folates, (Folic Acid) Comments: Reason for Laboratory Test .Is Patient Taking Vitamins or Folic Acid Supplements? [facility] [address] [place], [address] FOLATES 82.80 ng/mL (Abnormal) Range: 3.1-55.4 Comments: Please note revised Folates reference range /14/2017. 8-Iek-543491:14 Iron+Iron Binding Capacity Comments: Reason for Laboratory Test .Is Patient Taking Vitamins or Folic Acid Supplements? [facility] Nfccxtykoj8941 [address] [place], [address] IRON SATURATION 10.7 % (Abnormal) Range: 15.0-55.0 IRON 36 ug/dL (Abnormal) Range: 50-170 TIBC 335 ug/dL (Normal) Range: 250-450 8-Pdm-724803:14 Vitamin B12 > 2000 pg/mL (Abnormal) Comments: Reason for Laboratory Test .[facility] Ndkncerglz2314 [address] [place], [address] Range: 211-911 08-Mhj-078999:06 Stool Occult Blood iFOB Comments: [facility] Armgygqumb34[address] [place], [address] STOB See Note (Normal) Comments: Reason for Laboratory Test . STOB iFOBOccult Blood Negative 83-Bnb-99487:18 CBC W/Diff, Automated Comments: [facility] Dhdjjlxcjg3975 [address]. [place], [address] Absolute Lymph 1.31 {X10_3/ul} (Normal) Range: 0.83-4.51 [...] 4.2-5.4 WBC 3.4 K/mm3 (Abnormal) Range: 4.4-11.0 56-Qoj-13221:18 Comprehensive Metabolic Profil Comments: Is Patient Taking Vitamins or Folic Acid Supplements? [facility] Tmfbnbjdxc1437 [place], [address] GAP 7 (Normal) Range: 5-15 CO2 28.0 [...] Taking Vitamins or Folic Acid Supplements? [facility] Fmvzyzduot5499 [address] [place], [place], [address] FERRITIN 16 ng/mL (Normal) Range: 8-252 :18 Folates, (Folic Acid) Comments: Is Patient Taking Vitamins or Folic Acid Supplements? [facility] Awmlvftkfl8164 [address] [place], [place], [address] FOLATES 67.80 ng/mL (Abnormal) Range: 3.1-17.5 :18 Iron+Iron Binding Capacity Comments: Is Patient Taking Vitamins or Folic Acid Supplements? [facility] Qvwipoztec7406 [address] [place], [place], [address] IRON SATURATION 11.2 % (Abnormal) Range: 15.0-55.0 IRON 41 ug/dL (Abnormal) Range: 50-170 TIBC 367 ug/dL (Normal) Range: 250-450 :18 Vitamin B12 1297 pg/mL (Abnormal) Comments: [facility] Pliwogaqct4817 [address] [place], [place], [address] Range: 211-911 64-Liy-621237:09 Urinalysis, Office (00438) UA - LEUKOCYTE ESTERASE Negative (Normal) UA - NITRITE Negative (Normal) URINE UROBILINGN DIPAK TIMED 2 mg/dL (Normal) UA - PROTEIN Negative mg/dL (Normal) UA - PH 6.0 (Normal) UA - BLOOD Hemolyzed Trace (Normal) UA - SPECIFIC GRAVITY 1.015 (Normal) UA - KETONES Negative mg/dL (Normal) UA - BILIRUBIN Negative (Normal) UA - GLUCOSE Negative (Normal) 61-Lht-111443:09 Blood Glucose , Office (38463) Blood Glucose , Office 91 (Normal) 58-Kai-422592:09 HgA1C , Office (07285) HgA1C , Office 5.3 % (Normal) Range: 4.6 - 7.1 :01 CBC W/Diff, Automated Comments: [facility] [address] [place], [place], [address] Absolute Lymph 0.96 {X10_3/ul} (Normal) Range: 0.83-4.51 [...] Range: 4.4-11.0 :01 Comprehensive Metabolic Profil Comments: [facility] [address] [place], [place], [address] GAP 12 (Normal) Range: 5-15 CO2 24.0 [...] (Normal) Range: 70-110 :01 Hemoglobin A1c Comments: [facility] Vadptlwqku25[address] [place], [place], [address] HGB A1C 5.3 % (Normal) Range: 4.2-6.3 :01 THEE + Protein Elect, Serum Comments: Is Patient Fasting? [facility] (refer to report for specific site)refer to report for address and phone number NOTE: Comment (Normal) Comments: Protein electrophoresis scan will follow via computer,mail, or editor index delivery. THEE RESULT,S Comment (Normal) Comments: No monoclonality detected. A/G RATIO 1.2 (Normal) Range: 0.7-1.7 GLOBULIN, TOTAL 3.1 g/dL (Normal) Range: 2.2-3.9 M-SPIKE g/dL (Normal) Comments: Not Observed GAMMA GLOBULIN 0.7 g/dL (Normal) Range: 0.4-1.8 BETA GLOBULIN 0.9 g/dL (Normal) Range: 0.7-1.3 BYKDB-2-MDHA 1.0 g/dL (Normal) Range: 0.4-1.0 QCFKW-8-WPCN 0.5 g/dL (Abnormal) Range: 0.0-0.4 ALBUMIN 3.6 [...] Comment (Normal) Comments: No monoclonality detected.Performed at: [facility] [address] [id number] Director: Samm Galvan PhD, Phone: [phone] 33-Kcf-81861:01 Lipid Profile Comments: [facility] Ogmvdukobu2912 [address] [facility] [place], [place], [address] VLDL 19 mg/dL (Normal) Range: 5-40 LDL [...] Risk :01 Thyroid Stim Hormone (TSH) Comments: [facility] Daycplyhip3545 [address]. [place], [address] TSH 4.87 {uIU/mL} (Abnormal) Range: 0.358-3.74 :01 Vitamin D,25 Hydroxy Comments: [facility] Mhdpintvrd4051 [address] [place], [address] Vitamin D 25-OH 27.3 ng/mL (Normal) Comments: Vitamin D 25(OH) Status Range Deficiency <20 ng/mL (50nmol/L) Insuffciency 20 - 30 ng/mL (50 - 75 nmol/L) Sufficiency 30 - 100 ng/mL (75 - 250 nmol/L) Toxicity >100 ng/mL (>250 nmol/L) :54 CBC W/Diff, Automated Comments: [facility] Fiaeczgojt0447 [address] Rdoriguez. [place], [address] Absolute Lymph 1.70 {X10_3/ul} (Normal) Range: 0.83-4.51 [...] Serial specimen #1, #2, #3, or #4: [address] [place] [address] Ayhhmbvqft[address] [place], [address] GAP 8 (Normal) Range: 5-15 CO2 25.0 [...] (Normal) Range: 70-110 :54 Hemoglobin A1c Comments: [facility] Uhcddoezbg5195 [place], [address] HGB A1C 5.9 % (Normal) Range: 4.2-6.3 :54 Lipid Profile Comments: 'TROP' Serial specimen #1, #2, #3, or #4: [address] [place] [address] [place], [address] VLDL 31 mg/dL (Normal) Range: 5-40 [...] Serial specimen #1, #2, #3, or #4: [address] [place] [address] Sgohkgfvaf4380 [place], [address] TSH 4.73 {uIU/mL} (Abnormal) Range: 0.358-3.74 :54 Troponin-I Comments: 'TROP' Serial specimen #1, #2, #3, or #4: [address] [place] [address] [place], [address] TROPONIN-I < 0.02 ng/mL (Normal) Comments: TROPONIN-I EXPECTED VALUES <0.05 NEGATIVE 0.06 - 0.59 AT RISK OF OK > OR = 0.60 SUGGEST OK 96-Qfo-749725:51 CBC W/Diff, Auto - EPLAB Comments: Order Date: 01/01/16Order Info: [id number] - *CBC w/Diff - oncology ONLYComments: DRAW AND HOLD SERUM TUBEOrder Date: 01/01/16Order Info: [id number] - *CBC w/Diff - oncology ONLYComments: DRAW AND HOLD SERUM Only TUBEAt [facility] Medical Oncologypatients receive CBC w/auto Differential ONLY. Physicianwill place an order for a manual differential or Pathologistreview at his discretion. [facility]. [address] [place] [address] [address] HVAC LEAD: JOSE KOHLI DO PH:[phone] Date: 01/01/16Order Info: [id number] - *MISC - Miscellaneous Lab Test #1Comments: Test(s) Ordered by Physician:[facility] Sidxoeffxk[address] [place], [address] Absolute Lymph 1.39 {X10_3/uL} (Normal) Range: 0.83-4.51 [...] 4.2-5.4 WBC 4.7 K/mm3 (Normal) Range: 4.4-11.0 02-Wlq-914337:51 Comprehensive Metabolic Comments: Order Date: 01/01/16Order Info: [id number] - *CMP Complete Metabolic PanelOrder Info: 3084-1 - *Uric Acid BloodOrder Info: 2500-7 - *TIBCOrder Info: 3028-4 - *IronOrder Info: 8676-4 - *FerritinComments: Ashlyn Martin son:Order Info: 2532-0 - *LDH -LDH (Lactate Dehydrogenase)Order Date: 01/01/16Order Info: [id number] - *MISC - Miscellaneous Lab Test #1Comments: Test(s) Ordered by Physician:FOLATESSerial Specimen #1, # 2 or #3? 1Is Patient Taking Vitamins or Folic Acid Supplements? [facility] Irjycfwsed[address] [place], [address] GAP 2 (Abnormal) Range: 5-15 CO2 29.0 [...] 7-18 GLU 89 mg/dL (Normal) Range: 70-110 90-Btq-809892:51 Ferritin Comments: Order Date: 01/01/16Order Info: 0786-1 [...] Taking Vitamins or Folic Acid Supplements? [facility] [address] [place], [place], [address] FERRITIN 14 ng/mL (Normal) Range: 8-252 99-Sqj-951452:51 Folates, (Folic Acid) Comments: Order Date: 01/01/16Order [...] Taking Vitamins or Folic Acid Supplements? [facility] [address] [place], [address] FOLATES 72.40 ng/mL (Abnormal) Range: 3.1-17.5 58-May-735777:51 Iron Comments: Order Date: 01/01/16Order Info: 0786-1 [...] Taking Vitamins or Folic Acid Supplements? [facility] Eqflearyeg6693 [address] [place], [place], [address] IRON 40 ug/dL (Abnormal) Range: 50-170 32-Ump-952159:51 Iron Binding Capacity,Total Comments: Order Date: 01/01/16Order [...] Taking Vitamins or Folic Acid Supplements? [facility] Lpibdgsplw1174 [address] [place], [place], [address] TIBC 354 ug/dL (Normal) Range: 250-450 09-Xdi-449448:51 LDH 199 U/L (Normal) Comments: Order Date: [...] Taking Vitamins or Folic Acid Supplements? [facility] [address] [place], [address] Range: 84-246 29-Inu-356757:51 Uric Acid Comments: Order Date: 01/01/16Order Info: [...] Taking Vitamins or Folic Acid Supplements? [facility] [address] [place], [address] URIC 3.9 mg/dL (Normal) Range: 2.6-6.0 Comments: The drugs N-Acetylcysteine and Metamizole may falsely deressthis assay. 69-Ogn-905213:51 Vitamin B12 809 pg/mL (Normal) Comments: Order Date: 01/01/16Order Info: [id number] - *B-12Order Date: 01/01/16Order Info: 0453-1 - *MISC - Miscellaneous Lab Test [facility] [address]rwx[address] [place], [address] Range: 211-911 02-Cya-619892:41 D-Dimer Quantitative (DVT/PE) Comments: Order Date: 06/15/16Order Info: [id number] - *DDIMQ - Fibrin Degrd Ultrsens Qual/SemiquanOrder Date: 06/15/16Order Info: [id number] - *DDIMQ - Fibrin Degrd Ultrsens Qual/[facility] Udcqxwtflw[address] [place], [place], [address] D-DIMER QUANT 0.28 {FEU/ug/m} (Normal) Range: 0.27-0.49 Comments: NORMAL D-Dimer level (<0.50) indicates no DVT or PE. 6-Ubb-105474:15 Thyroxine (T4) Free, Direct, S Comments: PATIENT NOT FASTINGPERFORMED BY: CB [facility] Vmikqe2778 [facility] [id number] T4,Free(Direct) 1.22 ng/dL Range: 0.82-1.77 (Normal) Triiodothyronine,Free,Seru 2.2 pg/mL (Normal) Comments: PATIENT NOT FASTINGPERFORMED BY: [facility] Iuhaos1384 [facility] [id number] 4:15 m Range: 2.0-4.4 Written Authorization WAR (Normal) Comments: PATIENT NOT FASTINGPERFORMED BY: [facility] Wauoks8604 [facility] [id number] 4:15 Comments: Written Authorization Received.Authorization received from MAO BENITEZ [id number] by Jyothi Boland 0-Szr-886643:15 [facility] (94061) Comments: PATIENT NOT FASTINGPERFORMED BY: [facility] Pvvypf3178 [facility] [id number] Please note: SPRCS (Normal) Comments: Protein electrophoresis scan will follow via computer, mail, orcourier delivery. A/G Ratio 1.3 (Normal) Range: 0.7-1.7 Globulin, Total 2.8 g/dL (Normal) Range: 2.2-3.9 M-Abhinav Not Observed g/dL (Normal) Gamma Globulin 0.8 g/dL (Normal) Range: 0.4-1.8 Beta Globulin 0.8 g/dL (Normal) Range: 0.7-1.3 Onbte-0-Tegahfox 0.9 g/dL (Normal) Range: 0.4-1.0 Aodqk-8-Oqgxngef 0.2 g/dL (Normal) Range: 0.0-0.4 Albumin 3.6 g/dL (Normal) Range: 2.9-4.4 Protein, Total, Serum 6.4 g/dL (Normal) Range: 6.0-8.5 9-Hnp-701094:15 UPEP (54904) Comments: PATIENT NOT FASTINGPERFORMED BY: ChipSensorsNew Bridge Medical CenterKcfkwj5508 [facility] [id number] Please note: SPRCS (Normal) Comments: Protein electrophoresis scan will follow via computer, mail, orcourier delivery. M-Abhinav, % Not Observed % (Normal) Gamma Globulin, U 39.7 % (Normal) Beta Globulin, U 30.6 % (Normal) Dsakj-7-Oognaknk, U 6.8 % (Normal) Icmxh-3-Zphildzm, U 2.0 % (Normal) Albumin, U 21.0 % (Normal) Protein,Total,Urine 4.5 mg/dL (Normal) 2-Xem-051760:15 TSH (15321) Comments: PATIENT NOT FASTINGPERFORMED BY: LabOBOOKNew Bridge Medical CenterFfjqpl3503 [facility] [id number] TSH 7.400 {uIU/mL} (Abnormal) Range: 0.450-4.500 3-Dsv-471593:15 CBC WITH MANUAL DIFF (41143) Comments: PATIENT NOT FASTINGPERFORMED BY: JobyalM[facility]aren [facility]6370 [facility] [id number] Immature Grans (Abs) 0.0 {x10E3/uL} (Normal) Range: [...] 3.77-5.28 WBC 4.5 {x10E3/uL} (Normal) Range: 3.4-10.8 9-Mtu-429001:15 RETICULOCYTE COUNT (67381) Comments: PATIENT NOT FASTINGPERFORMED BY: ChipSensorsNorthern Navajo Medical CenterYtdlgm8621 [facility] [id number] Reticulocyte Count 1.0 % (Normal) Range: 0.6-2.6 7-Tgc-952557:15 LDH (LD) (LACTATE DEHYDROGENASE) Comments: PATIENT NOT FASTINGPERFORMED BY: ChipSensorsNew Bridge Medical CenterLofydk4175 [facility] [id number] (29184) LDH 185 [iU]/L (Normal) Range: 119-226 2-Oun-506893:15 Iron Binding Capacity (TIBC) Comments: PATIENT NOT FASTINGPERFORMED BY: ChipSensorsNew Bridge Medical CenterVjvxmo1925 [facility] [id number] (85517) Iron Saturation 16 % (Normal) Range: 15-55 Iron, Serum 55 ug/dL (Normal) Range: 27-139 UIBC 281 ug/dL (Normal) Range: 118-369 Iron Bind.Cap.(TIBC) 336 ug/dL (Normal) Range: 250-450 8-Upu-686278:15 Vitamin B-12 (cyanocobalamin) Comments: PATIENT NOT FASTINGPERFORMED BY: ChipSensorsNew Bridge Medical CenterFvhaze0049 [facility] [id number] (31150) Vitamin B12 979 pg/mL (Abnormal) Range: 211-946 3-Vox-356591:15 Folic Acid Serum (29389) Comments: PATIENT NOT FASTINGPERFORMED BY: LabMclaren [facility] Michigan6370 [facility] [id number] Folate (Folic Acid), Serum >20.0 ng/mL (Normal) Comments: A serum folate concentration of less than 3.1 ng/mL isconsidered to represent clinical deficiency. 7-Vzu-809842:15 Ferritin (70894) Comments: PATIENT NOT FASTINGPERFORMED BY: LabCoNew Bridge Medical CenterJihaqb9510 [facility] [id number] Ferritin, Serum 30 ng/mL (Normal) Range: 15-150 68-Syq-750685:05 CBC W/Diff, Automated Comments: [facility] Krejmmoekp[address] [place], [address] Absolute Lymph 1.49 {X10_3/ul} (Normal) Range: 0.83-4.51 [...] 4.2-5.4 WBC 4.6 K/mm3 (Normal) Range: 4.4-11.0 30-Fjz-212214:05 Comprehensive Metabolic Profil Comments: [facility] [address]whutbqxcp[address] [place], [place], [address] GAP 8 (Normal) Range: 5-15 CO2 28.0 [...] 7-18 GLU 86 mg/dL (Normal) Range: 70-110 97-Gmv-375166:05 Hemoglobin A1c Comments: [facility] Lruvefhxur[address] [place], [address] HGB A1C 5.2 % (Normal) Range: 4.2-6.3 71-Vzw-771034:05 Lipid Profile Comments: [facility] Totdoqzsay2613 [place], [address] VLDL 22 mg/dL (Normal) Range: 5-40 [...] 200-240 mg/dL Borderline >240 mg/dL High Risk 97-Gyo-702753:05 Microalb:Creat Ratio,Random UR Comments: [facility] Esgzgmkjfl3613 [place], [address] MALB:CREAT 5.0 {mg/g_CRE} (Normal) MICROALBUMIN,UR 7.2 mg/L (Normal) UR CREAT 144.00 mg/dL (Normal) 29-Bes-611490:05 Vitamin D,25 Hydroxy Comments: [facility] Tefjsydszq0427 [place], [address] Vitamin D 25-OH 40.3 ng/mL (Normal) Comments: Vitamin D 25(OH) Status Range Deficiency <20 ng/mL (50nmol/L) Insuffciency 20 - 30 ng/mL (50 - 75 nmol/L) Sufficiency 30 - 100 ng/mL (75 - 250 nmol/L) Toxicity >100 ng/mL (>250 nmol/L) [id number]-Lqe-60418:27 CBC with auto diff (80683) Comments: PATIENT WAS FASTINGPERFORMED BY: [id number] [id number] Immature Grans (Abs) 0.0 {x10E3/uL} (Normal) Range: [...] 3.77-5.28 WBC 3.3 {x10E3/uL} (Abnormal) Range: 3.4-10.8 [id number]:35 MAGNESIUM (71485) Comments: PATIENT NOT FASTINGPERFORMED BY: [facility] [id number] [facility] [id number] Magnesium, Serum 1.8 mg/dL (Normal) Range: 1.6-2.3 :35 POTASSIUM SERUM (89789) Comments: PATIENT NOT FASTINGPERFORMED BY: [facility] [id number] [facility] [id number] Potassium, Serum 4.5 mmol/L (Normal) Range: 3.5-5.2 :00 CBC W/Diff, Automated Comments: [facility] [address] [place], [address] Absolute Lymph 0.91 {X10_3/ul} (Normal) [...] Range: 4.4-11.0 :00 Comprehensive Metabolic Profil Comments: [facility] [address] [place], [place], [address] GAP 8 (Normal) Range: 5-15 CO2 31.0 [...] 7-18 GLU 75 mg/dL (Normal) Range: 70-110 17-Pxh-56394:00 Erythrocyte Sed Rate Comments: [facility] [address] [place], [place], [address] SED RATE 21 mm/h (Normal) Range: 0-30 9-Kqh-120329:37 CBC W/Diff, Automated Comments: [facility] [address] [place], [place], [address] Absolute Lymph 1.96 {X10_3/ul} (Normal) Range: 0.83-4.51 [...] 4.4-11.0 :37 Thyroid Stim Hormone (TSH) Comments: [address] [place], [address] TSH 4.43 {uIU/mL} (Abnormal) Range: 0.358-3.74 :37 Vitamin B12 969 pg/mL (Abnormal) Comments: [address] [place], [address] Range: 211-911 29-Jan-20160:00 CBC W/ Manual Differential Comments: [address] [place], [address] RED CELL MORPH NORM C+C [...] this admission? NIs Patient on Heparin? [facility] [address]fo[address] [place], [place], [address] GAP 7 (Normal) Range: 5-15 CO2 30.0 [...] this admission? NIs Patient on Heparin? [facility] [address] [place], [place], [id number] FREE T3 2.1 pg/mL (Abnormal) Range: 2.18-3.98 :00 T4 Free Direct Comments: ADD ON TSHHas Patient had X-rays with Contrast this admission? NIs Patient on Heparin? [facility] [address] [place], [address] T4 FREE DIRECT 1.30 ng/dL (Normal) Range: 0.76-1.46 29-Jan-20160:00 Thyroid Peroxidase AB Comments: [facility] (refer to report for specific site)refer to report for address and phone number TPO AB 6676 6 {IU/mL} (Normal) Range: 0-34 Comments: Performed at: [facility] [address] [id number] Director: Samm Galvan PhD, Phone: [phone] 29-Jan-20160:00 Thyroid Stim Hormone (TSH) Comments: ADD ON TSHHas Patient had X-rays with Contrast this admission? NIs Patient on Heparin? [facility] [address] [place], [address] TSH 5.27 {uIU/mL} (Abnormal) Range: 0.358-3.74 11-Oca-592060:38 CBC W/Diff, Auto - EPLAB Comments: At [facility] Outpatient [facility] [place] Medical Oncologypatients receive CBC w/auto Differential ONLY. Physicianwill place an order for a manual differential or Pathologistreview at his discretion. [facility]. [address] [place] [address] [place] [address] HVAC LEAD: JOSE KOHLI DO PH:[phone] Health [facility] [address] [place], [place], [address] Absolute Lymph 1.55 {X10_3/uL} (Normal) Range: 0.83-4.51 [...] 4.2-5.4 WBC 5.4 K/mm3 (Normal) Range: 4.4-11.0 58-Wcb-572207:19 Pathology Report Comments: PERFORMED BY: [facility] [place] Cyto Xilfe94026 [facility] [id number] BY: [facility] Dermatopathology Odfxmqa043 [address] [id number] Information: [id number] See MATER Comments: Material submitted: .PUNCH BIOPSY [...] SPECIMEN IS SUBMITTEDIN CASSETTE(S) A./CORCOR/CORPathologist provided ICD-10:D04.62CPT .310753 34-Phq-649543:15 HgA1C , Office (99151) HgA1C , Office 5.7 % (Normal) Range: 4.6 - 7.1 :13 CBC W/Diff, Automated Comments: [facility] [address] [place], [place], [address] Absolute Lymph 1.90 {X10_3/ul} (Normal) Range: 0.83-4.51 [...] 4.2-5.4 WBC 4.5 K/mm3 (Normal) Range: 4.4-11.0 50-Poy-869794:13 Comprehensive Metabolic Profil Comments: [facility] [address] [place], [place], [address] GAP 6 (Normal) Range: 5-15 CO2 30.0 [...] 7-18 GLU 89 mg/dL (Normal) Range: 70-110 27-Prg-135918:13 CRP Comments: [facility] [address] [place], [place], [address] C-REACTIVE PROT < 2.90 mg/L (Normal) Range: 0.0-3.0 Comments: C-Reactive Protein (CRP) provides useful information for thediagnosis, therapy and monitoring of inflammatory processesand associated diseases. For the evaluation of Relative Riskfor Cardiovascular Dise ase, a High Sensitivity CRP (HSCRP)should be ordered. 54-Dhp-594601:13 Erythrocyte Sed Rate Comments: [facility] [address] [place], [place], [address] SED RATE 13 mm/h (Normal) Range: 0-30 45-Bdc-392588:13 Lipid Profile Comments: [facility] [address] [place], [address] VLDL 32 mg/dL (Normal) Range: [...] 200-240 mg/dL Borderline >240 mg/dL High Risk 28-Onh-185214:13 Rheumatoid Factor Comments: [facility] [address] [place], [place], [address] RHEUMATOID FAC < 10.0 {IU/mL} (Normal) 18-Kvn-721264:13 Thyroid Stim Hormone (TSH) Comments: [facility] [address] [place], [address] TSH 4.62 {uIU/mL} (Abnormal) Range: 0.358-3.74 :54 Lipid Profile Comments: ORDERED: CBCD, CMP, LDH, URIC, XTRADR.FAST ORDERED: LIPID, CMP, VITD, CBCDWMercy [facility] X[address]nb[address] [place], [address] VLDL 20 mg/dL (Normal) Range: 5-40 [...] High Risk :54 Vitamin D,25 Hydroxy Comments: [facility] [address] [place], [address] Vitamin D 25-OH 43.8 ng/mL (Normal) Comments: Vitamin D 25(OH) Status Range Deficiency <20 ng/mL (50nmol/L) Insuffciency 20 - 30 ng/mL (50 - 75 nmol/L) Sufficiency 30 - 100 ng/mL (75 - 250 nmol/L) Toxicity >100 ng/mL (>250 nmol/L) :53 CBC W/Diff, Automated Comments: [facility] [address] [place], [address] Absolute Lymph [...] Range: 4.4-11.0 :53 Comprehensive Metabolic Profil Comments: [facility] [address] [place], [place], [address] GAP 7 (Normal) Range: 5-15 CO2 32.0 [...] 70-110 :53 LDH 182 U/L (Normal) Comments: [facility] [address] [place], [place], [address] Range: 84-246 :53 Uric Acid Comments: [facility] [address] [place], [place], [address] URIC 4.4 mg/dL (Normal) Range: 2.6-6.0 92-Wgc-392445:49 CBC W/Diff, Auto - EPLAB Comments: At [facility] Outpatient [facility] Medical Oncologypatients receive CBC w/auto Differential ONLY. Physicianwill place an order for a manual differential or Pathologistreview at his discretion. [facility]. [address] [place] [address] [address] HVAC LEAD: JOSE KOHLI DO PH:[phone] Health [facility] [address] [place], [place], [address] Absolute Lymph 1.40 {X10_3/uL} (Normal) Range: 0.83-4.51 [...] 4.2-5.4 WBC 4.0 K/mm3 (Abnormal) Range: 4.4-11.0 44-Tgm-027711:43 CBC W/Diff, Automated Comments: [facility] [address] [place], [place], [address] Absolute Lymph 1.46 {X10_3/ul} (Normal) Range: 0.83-4.51 [...] Serial specimen #1, #2, #3, or #4: [facility] [address] [place], [address] C-REACTIVE PROT < 2.90 mg/L (Normal) Range: 0.0-3.0 Comments: C-Reactive Protein (CRP) provides useful information for thediagnosis, therapy and monitoring of inflammatory processesand associated diseases. For the evaluation of Relative Riskfor Cardiovascular Dise ase, a High Sensitivity CRP (HSCRP)should be ordered. :43 CRP Comments: 'TROP' Serial specimen #1, #2, #3, or #4: [facility] [address] [place], [address] C-REACTIVE PROT < 2.90 mg/L (Normal) Range: 0.0-3.0 Comments: C-Reactive Protein (CRP) provides useful information for thediagnosis, therapy and monitoring of inflammatory processesand associated diseases. For the evaluation of Relative Riskfor Cardiovascular Dise ase, a High Sensitivity CRP (HSCRP)should be ordered. :43 Erythrocyte Sed Rate Comments: [facility] [address] [place], [place], [address] SED RATE 9 mm/h (Normal) Range: 0-30 :43 ASSAY, TROPONIN, QUANTITATIVE Comments: stat; 'TROP' Serial specimen #1, #2, #3, or #4: [address] [place], [place], [address] (aka Troponin I) ([address]653) TROPONIN-I < 0.02 ng/mL (Normal) Comments: TROPONIN-I EXPECTED VALUES <0.05 NEGATIVE 0.06 - 0.59 AT RISK OF OK > OR = 0.60 SUGGEST OK 94-Jdl-652326:15 Basic Metabolic Profile (BMP) Comments: PLEASE REDRAW PREVIOUS SPECIMENS MISLABELED'TROP' Serial specimen #1, #2, #3, or #4: 1'CKMB' Serial Specimen #1, #2 or #3? [facility] [address]xcfv[address] [place], [address] GAP 2 (Abnormal) Range: 5-15 [...] 7-18 GLU 103 mg/dL (Normal) Range: 70-110 63-Thb-682705:15 CBC W/Diff, Automated Comments: [facility] [address] [place], [address] Absolute Lymph 1.99 {X10_3/ul} (Normal) [...] 4.2-5.4 WBC 5.8 K/mm3 (Normal) Range: 4.4-11.0 30-Avr-100341:15 CK-MB Quantitative and Index Comments: PLEASE REDRAW PREVIOUS SPECIMENS MISLABELED'TROP' Serial specimen #1, #2, #3, or #4: 1'CKMB' Serial Specimen #1, #2 or #3? 1[facility] Ztzhhoskdt9533 [facility]. [place], [place], [address] CKRI 0.7 % (Normal) Range: 0.0-1.4 Comments: RELATIVE INDEX >1.5% IS PRESUMPTIVELY POSITIVE CPKMB 0.6 ng/mL (Normal) Range: 0.0-5.0 Comments: CK-MB and RI Interpretation MB Relative Index Non-AMI <or= 5 NA Indeterminate > 5 <or= 4 AMI > 5 > 4 CPK TOTAL 82 U/L (Normal) Range: 26-192 20-Bed-214287:15 Partial Thromboplast Time Comments: [facility] [address] [place], [place], [address] PTT 48.2 s (Abnormal) Range: 24.1-36.2 22-Evu-475176:15 Prothrombin Time w/INR Comments: [facility] [address] [place], [place], [address] INR 2.3 (Normal) PROTIME 25.3 s (Abnormal) Range: 11.7-14.9 46-Fem-526509:15 Troponin-I Comments: PLEASE REDRAW PREVIOUS SPECIMENS MISLABELED'TROP' Serial specimen #1, #2, #3, or #4: 1'CKMB' Serial Specimen #1, #2 or #3? [facility] [address]fa[address] [place], [place], [address] TROPONIN-I < 0.02 ng/mL (Normal) Comments: TROPONIN-I EXPECTED VALUES <0.05 NEGATIVE 0.06 - 0.59 AT RISK OF OK > OR = 0.60 SUGGEST OK 17-Sri-478541:25 Basic Metabolic Profile (BMP) Comments: Serial Specimen #1, #2 or #3? 1'TROP' Serial specimen #1, #2, #3, or #4: 1[facility] [address] [place], [place], [address] GAP 10 (Normal) Range: 5-15 CO2 26.0 [...] 7-18 GLU 104 mg/dL (Normal) Range: 70-110 79-Kvm-623629:25 BNP,B-Type NATRIURETIC PEPTIDE Comments: [facility] [address] [place], [place], [address] B-TYPE STEFAN PEP 94.1 pg/mL (Normal) Range: 0-100 29-Jzq-027783:25 CBC W/Diff, Automated Comments: [facility] [address] [place], [place], [address] Absolute Lymph 2.03 {X10_3/ul} (Normal) Range: 0.83-4.51 [...] 4.2-5.4 WBC 6.0 K/mm3 (Normal) Range: 4.4-11.0 99-Ejo-318172:25 CK-MB Quantitative and Index Comments: Serial Specimen #1, #2 or #3? 1'TROP' Serial specimen #1, #2, #3, or #4: [address] [place] [address] [address] [facility] [place], [address] CKRI Test not performed % (Normal) Range: 0.0-1.4 CPKMB < 0.5 ng/mL (Normal) Range: 0.0-5.0 Comments: CK-MB and RI Interpretation MB Relative Index Non-AMI <or= 5 NA Indeterminate > 5 <or= 4 AMI > 5 > 4 CPK TOTAL 69 U/L (Normal) Range: 26-192 92-Bdv-715687:25 Prothrombin Time w/INR Comments: [facility] [address] [facility] [place], [address] INR 1.0 (Normal) PROTIME 13.4 s (Normal) Range: 11.7-14.9 45-Voo-500639:25 Troponin-I Comments: Serial Specimen #1, #2 or #3? 1'TROP' Serial specimen #1, #2, #3, or #4: [address] [place] [address] Wbeguuehin[address] [facility]. [place], [place], [address] TROPONIN-I < 0.02 ng/mL (Normal) Comments: TROPONIN-I EXPECTED VALUES <0.05 NEGATIVE 0.06 - 0.59 AT RISK OF OK > OR = 0.60 SUGGEST OK 74-Ksz-308534:50 Urinalysis, Office (74442) UA - LEUKOCYTE ESTERASE Small (Normal) UA - NITRITE Negative (Normal) URINE UROBILINGN DIPAK TIMED Normal mg/dL (Normal) UA - PROTEIN Negative mg/dL (Normal) UA - PH 7.0 (Normal) UA - BLOOD Non Hemolyzed Trace (Normal) UA - SPECIFIC GRAVITY 1.015 (Normal) UA - KETONES Negative mg/dL (Normal) UA - BILIRUBIN Negative (Normal) UA - GLUCOSE Negative (Normal) 24-Myc-596840:16 URINE ELLE CULTURE-IDENTIFICATN Comments: PATIENT NOT FASTINGPERFORMED BY: [facility] Prxpbl9648 Stephanie Burrelljody MD [id number] Information: [id number] ([id number]) Result 1 MUG (Normal) Comments: Mixed urogenital flora1,000 Colonies/mL Urine Culture,Comprehensive Final report (Normal) :58 CBC W/Diff, Automated Comments: [facility] [address] [place], [place], [address] ; non-emergent till apt Absolute Lymph 1.57 [...] Range: 4.4-11.0 :58 Comprehensive Metabolic Profil Comments: [facility] [address] [place], [place], [address] GAP 8 (Normal) Range: 5-15 CO2 30.0 [...] (Normal) Range: 70-110 :58 Hemoglobin A1c Comments: [facility] [address] [place], [address] HGB A1C 5.9 % (Normal) Range: 4.2-6.3 :58 Lipid Profile Comments: [facility] [address] [place], [address] VLDL 14 mg/dL (Normal) Range: [...] Complete Comments: How was Urine Obtained? CLEAN [facility] [address] [place], [address] MUCUS, URINE 0 SEEN {/hpf} [...] CLARITY Sl. Cloudy (Normal) COLOR Yellow (Normal) 32-Zuc-86279:26 CBC W/Diff, Auto - EPLAB Comments: At [facility] Outpatient [facility] Medical Oncologypatients receive CBC w/auto Differential ONLY. Physicianwill place an order for a manual differential or Pathologistreview at his discretion. [facility]. [address] [place] [address] [address] HVAC LEAD: JOSE KOHLI DO PH:[phone] Health [facility] [address] [place], [address] ; ordered by Dr[address] Evgeny [...] 4.2-5.4 WBC 7.0 K/mm3 (Normal) Range: 4.4-11.0 2-Utd-407934:30 Basic Metabolic Profile (BMP) Comments: [facility] [address] [place], [address] GAP 8 (Normal) Range: 5-15 CO2 27.0 [...] 7-18 GLU 84 mg/dL (Normal) Range: 70-110 5-Xzw-290157:30 CBC-Complete Blood Cnt No Diff Comments: [facility] [address] [place], [place], [address] MPV 11.8 fL (Normal) Range: 6.2-12.0 PLT [...] 4.2-5.4 WBC 6.7 K/mm3 (Normal) Range: 4.4-11.0 96-Ctr-581602:37 CBC W/Diff, Auto - EPLAB Comments: At [facility] Outpatient [facility] Medical Oncologypatients receive CBC w/auto Differential ONLY. Physicianwill place an order for a manual differential or Pathologistreview at his discretion. [facility]. [address] [place] [place] [address] [address] HVAC LEAD: JOSE KOHLI DO PH:[phone] Health [facility] Hospital [facility] [address] [place], [place], [address] Absolute Lymph 1.77 {X10_3/uL} (Normal) Range: 0.83-4.51 [...] 4.2-5.4 WBC 4.3 K/mm3 (Abnormal) Range: 4.4-11.0 55-Sfq-500418:37 Comprehensive Metabolic Profil Comments: Serial Specimen #1, #2 or #3? 1Is Patient Taking Vitamins or Folic Acid Supplements? [facility] [address]farj[address] [place], [place], [address] GAP 7 (Normal) Range: 5-15 CO2 29.0 [...] 7-18 GLU 84 mg/dL (Normal) Range: 70-110 64-Rio-326216:37 Ferritin Comments: Serial Specimen #1, #2 or #3? 1Is Patient Taking Vitamins or Folic Acid Supplements? [facility] [address] [place], [address] FERRITIN 80 ng/mL (Normal) Range: 8-252 71-Qph-721163:37 Folates, (Folic Acid) Comments: Serial Specimen #1, #2 or #3? 1Is Patient Taking Vitamins or Folic Acid Supplements? [facility] [address] [place], [address] FOLATES 63.40 ng/mL (Abnormal) Range: 3.1-17.5 35-Nbo-228610:37 Iron Comments: Serial Specimen #1, #2 or #3? 1Is Patient Taking Vitamins or Folic Acid Supplements? [facility] [address] [place], [address] IRON 71 ug/dL (Normal) Range: 50-170 92-Gkm-032879:37 Iron Binding Capacity,Total Comments: Serial Specimen #1, #2 or #3? 1Is Patient Taking Vitamins or Folic Acid Supplements? [facility] [address] [place], [address] TIBC 335 ug/dL (Normal) Range: 250-450 96-Bpq-605757:37 LDH 162 U/L (Normal) Comments: Serial Specimen #1, #2 or #3? 1Is Patient Taking Vitamins or Folic Acid Supplements? [facility] [address] [place], [address] Range: 84-246 56-Waf-677412:37 Uric Acid Comments: Serial Specimen #1, #2 or #3? 1Is Patient Taking Vitamins or Folic Acid Supplements? [facility] [address]ibznq[address] [place], [address] URIC 4.5 mg/dL (Normal) Range: 2.6-6.0 78-Obu-455251:37 Vitamin B12 1077 pg/mL (Abnormal) Comments: [facility] [address]smf[address]afs[address] [place], [address] Range: 211-911 85-Jbw-446715:36 CBC W/Diff, Auto - EPLAB Comments: At [facility] Outpatient [facility], [place] Medical Oncologypatients receive CBC w/auto Differential ONLY. Physicianwill place an order for a manual differential or Pathologistreview at his discretion. [facility]. [address] [place] [address] HVAC LEAD: JOSE KOHLI DO PH:[phone] Health [facility] Hospital [facility] [address]bcby[address] [place], [address] Absolute Lymph 1.97 {X10_3/uL} (Normal) Range: 0.83-4.51 [...] (Normal) Range: 4.4-11.0 :48 Vitamin D Hydroxy (13733) Comments: PATIENT WAS FASTINGPERFORMED BY: [facility]6370 [facility] [id number] Vitamin D, 25-Hydroxy 32.8 ng/mL (Normal) Range: 30.0-100.0 Comments: Vitamin D deficiency has been defined by the [place] of[facility]ighcine and an Endocrine Society practice guideline as alevel of serum 25-OH vitamin D less than 20 ng/mL (1,2).The Endocrine Society went on to further define vitamin Dinsufficiency as a level between 21 and 29 ng/mL (2).1. IOM ([place] of Medicine). 2010. Dietary reference intakes for calcium and D. [place]: The National Academies Press.2. Jose Carlos MF, Flip [place], David ROME, et al. Evaluation, treatment, and prevention of vitamin D deficiency: an Endocrine Society clinical practice guideline. JCEM. 2010; 96(7):1911-30. :48 CBC with auto diff Comments: PATIENT WAS FASTINGPERFORMED BY: [facility]inalin6370 [facility] [id number] Information: [id number] (21275) Immature Grans (Abs) 0.0 {x10E3/uL} (Normal) Range: [...] PANEL, COMPREHENSIVE Comments: PATIENT WAS FASTINGPERFORMED BY: [facility]New [facility] CenterCrtztf0307 [facility] [id number] (56482) ALT (SGPT) 10 [iU]/L (Normal) Range: 0-32 [...] mg/dL (Normal) Range: 65-99 :48 LIPID PANEL (21576) Comments: PATIENT WAS FASTINGPERFORMED BY: [employer] [facility] [id number] LDL/HDL Ratio 1.2 {ratio_units} (Normal) Range: 0.0-3.2 [...] CREATININE RATIO Comments: PATIENT WAS FASTINGPERFORMED BY: [employer] [facility] [id number] (70352) AND (86600) Microalb/Creat Ratio 64.2 {mg/g_creat} (Abnormal) Range: 0.0-30.0 Microalbumin, Urine 46.3 ug/mL (Abnormal) Range: 0.0-17.0 Creatinine, Urine 72.1 mg/dL (Normal) Range: 15.0-278.0 :48 Hemoglobin Glyclated (HGB A1C) Comments: PATIENT WAS FASTINGPERFORMED BY: [employer] [facility] [id number] (39442) Hemoglobin A1c 5.7 % (Abnormal) Range: 4.8-5.6 Comments: . Pre-diabetes: 5.7 - 6.4 Diabetes: >6.4 Glycemic control for adults with diabetes: <7.0 98-Oze-631607:28 CBC W/Diff, Auto - EPLAB Comments: At [facility] Outpatient [facility] Medical Oncologypatients receive CBC w/auto Differential ONLY. Physicianwill place an order for a manual differential or Pathologistreview at his discretion. [facility]. [address] [place] [address] [address] HVAC LEAD: JOSE KOHLI DO PH:[phone] performed at:[facility] [address] [place], [place] [address] ; handled by evgeny Absolute Lymph 1.89 [...] W/Diff, Auto - EPLAB Only Comments: At [facility] Outpatient [facility] Medical Oncologypatients receive CBC w/auto Differential ONLY. Physicianwill place an order for a manual differential or Pathologistreview at his discretion. [facility]. [address] [place] [address] [address] HVAC LEAD: JOSE KOHLI DO PH:[phone] performed at:[facility] [address] [place] [address] Absolute Neut 2.6 {X10_3/uL} (Normal) [...] Serum Creatinine AND GFR Comments: Test performed at:[facility] [address] [place] [address] EST GFR - AA 62 mL/min (Normal) EST GFR 51 mL/min (Abnormal) CREAT,SERUM 1.12 mg/dL (Normal) Range: 0.55-1.20 Comments: Please note revised CREATININE reference range ectsjknqv91/22/2015. 4-Bgd-916564:38 CBC W/Diff, Auto - EPLAB Only Comments: At [facility] Outpatient [facility] Medical Oncologypatients receive CBC w/auto Differential ONLY. Physicianwill place an order for a manual differential or Pathologistreview at his discretion. [facility]. [address] [place] [place] [address] [place] [address] HVAC LEAD: JOSE KOHLI DO PH:[phone] performed at:[facility] [address] [place], [place] [address] Absolute Neut 3.0 {X10_3/uL} (Normal) Range: 2.0-7.7 [...] 4.2-5.4 WBC 5.8 K/mm3 (Normal) Range: 4.4-11.0 14-Joq-840493:12 FLURESCNT ANTIB SCRN EA Comments: PATIENT WAS FASTINGPERFORMED BY: [facility]CoNew [facility] CenterMoarzd6916 [facility] [id number] Information: [id number] (17525) celiac profile Immunoglobulin A, Qn, Serum 119 [...] - 30 Moderate to Strong Positive >30 53-Hct-410513:12 IMMUNOASSAY, ANALYTE Comments: PATIENT WAS FASTINGPERFORMED BY: [facility] [id number] (NON-INFECT) (04026) celiac profile Mitochondrial (M2) Antibody <20.0 {Units} (Normal) Range: 0.0-20.0 Comments: Negative 0.0 - 20.0 Equivocal 20.1 - 24.9 Positive >24.9 . Mitochondrial (M2) Antibodies are found in 90-96% of patients with primary biliary cirrhosis. 92-Qip-717062:12 IGA/IGD/IGG/IGM-EACH (62825) Comments: PATIENT WAS FASTINGPERFORMED BY: [facility]6370 [facility]ery[facility] [id number] Immunoglobulin E, Total 2 {IU/mL} (Normal) Range: 0-100 Immunoglobulin M, Qn, Serum 72 mg/dL (Normal) Range: 40-230 Immunoglobulin G, Qn, Serum 884 mg/dL (Normal) Range: 700-1600 64-Wez-070706:12 METABOLIC PANEL, COMPREHENSIVE Comments: PATIENT WAS FASTINGPERFORMED BY: [facility] [id number] (31307) ALT (SGPT) 12 [iU]/L (Normal) Range: 0-32 [...] Glucose, Serum 94 mg/dL (Normal) Range: 65-99 79-Vdq-760058:12 LIPID PANEL (97754) Comments: PATIENT WAS FASTINGPERFORMED BY: [id number] [id number] LDL/HDL Ratio 1.2 {ratio_units} (Normal) Range: 0.0-3.2 [...] Cholesterol, Total 168 mg/dL (Normal) Range: 100-199 [id number]-Enx-353186:25 HgA1C , Office (67001) HgA1C , Office 5.8 % (Normal) Range: 4.6 - 7.1 :0 COLON BIOPSY (CHOOSE See Note (Normal) Comments: Test performed at:[facility] [address] [place], [place] [address] 4 SITE) Comments: Patient: LUPE LOPEZ : 1945 (69/F) Acct Num: [id number] Phys: Samm Boo Unit Num: [id number] Loc: LABSPEC Specimen: [id number] Received: 09/13/14 - 1609 Spec Type: C CHASE BX TISSUES TISSUES: GROSS DESCRIPTION Received is one container labeled with the patient name and designated biopsy polyp at mid transverse. The specimen consists of one irreg ular fragment of light gonzalez soft tissue that measures 0.3 x 0.2 x 0.1 cm. The specimen is totallysubmitted in one cassette. / AM: 09/17/14 TC:5 CPT: 00153 HEADER OPERATION: Colonoscopy with biopsy PRE-OP DIAGNOSIS: Anemia TISSUE SUBMITTED: Biopsy polyp - mid transverse - rule out adenoma MICROSCOPIC DIAGNOSIS Mid transverse colon polyp, biopsy: Tubular adenoma. AM: 09/17 Signed Jose Kohli 09/17/14 <signature on file> :58 CBC W/Diff, Auto - EPLAB Only Comments: At [facility] Outpatient [facility] Medical Oncologypatients receive CBC w/auto Differential ONLY. Physicianwill place an order for a manual differential or Pathologistreview at his discretion. [facility] OUTPATIENT [facility]. [address] [place] [address] [place] [address] HVAC LEAD: JOSE KOHLI DO PH:[phone] performed at:[facility] [address] [place], [place] [address] Absolute Neut 1.6 {X10_3/uL} Range: 2.0-7.7 (Abnormal) [...] BIOPSY See Note (Normal) Comments: Test performed at:[facility] [address] [place] [address] 00 Comments: Patient: LUPE LOPEZ : 1945 (69/F) Acct Num: [id number] Phys: Evgeny Farmer Unit Num: [id number] Loc: [facility] Specimen: [id number] Received: 07/31/14 - 1215 Spec Type: BMB TISSUES TISSUES: ADDENDUM Addendum Number 1 CYTOGENETICS REPORT FROM [employer] INTERPRETATION AND COMMENTS: Karyotype: 46,XX[20] A normal female karyotype w as observed in twenty metaphases analyzed. Please see complete report in e-chart or EMR for further details Addendum Signed Jose [facility] 5 <signature on file> BONE MARROW GROSS [...] and cytogenetics. / AM: 07/31/14 TC:5 CPT: 14671, 72213, 62307 x2, 10834 x3, 65083 BONE MARROW STUDY CBC DATE: 07/31/14 WBC [...] Highlights myeloid elements and megakaryocytes. COMMENT IHC ([id number]) supports the above diagnosis. Flow cytometry study [...] - Smears and send outs Signed Jose [facility] 08/06/14 <signature on file> : IMMUNOHISTOCHEMISTRY See Note (Normal) Comments: Test performed at:[facility] [address] [place] [address] 00 Comments: Patient: LUPE LOPEZ : 1945 (69/F) Acct Num: [id number] Phys: Evgeny Farmer Unit Num: [id number] Loc: MARY Specimen: [id number] Received: 08/01/14 - 1158 Spec Type: IMMUN O TISSUES TISSUES: SPECIMEN INFORMATION: Tissue Source: Bone marrow biopsy and clot Clinical Info: Anemia Specimen Number: [id number] A AND B CPT code: 77770, 77506 x19 METHOD OLOGY: Deparaffinized sections of prefer/formalin-fixed [...] (11E3) negative BCL-2 (BCL2/100/D5) negative BCL- 6 (LN22/YA759K/A8) negative Cyclin D 1/BCL-1 (SP4) negative Block B CD3 (LN10/PS1) positive CD5 (4C7/SP10) positive CD10 (56C6) negative CD20 (MJ1/L26) negative CD23 (1B12) negative CD45 (X16/99/ RP2/18) positive CD79a (11E3) negative BCL-2 (BCL2/100/D5) positive BCL-6 (LN22/IM155O/A8) nega tive Cyclin D1/BCL-1 (SP4) negative These tests were developed and their performance characteristics determined by [facility]. They may not have been cleared or approved by the U.S. Food and Drug Administration. The FDA has determined that such clearance or approval is not necessary. INTERPRETATION: A. Bone marrow biopsy: Polytypic lymphoid aggregates. B. Bone marrow clot: Polytypic lymphoid aggregates. Comment: There is no evidence of lymphoma. AM:jeniffer 08/02/14 PHYSICIAN AND INSTITUTION [place] [address] Signed Jose [facility] 08/06/14 <signature on file> 1-Xkm-165246:59 CBC W/Diff, Auto - EPLAB Only Comments: At [facility] Outpatient [facility] Medical Oncologypatients receive CBC w/auto Differential ONLY. Physicianwill place an order for a manual differential or Pathologistreview at his discretion. [facility]. [address] [place] [address] [address] HVAC LEAD: JOSE KOHLI DO PH:[phone] performed at:[facility] [address] [place], [place] [phone] Absolute Neut 2.3 {X10_3/uL} (Normal) Range: 2.0-7.7 [...] 4.2-5.4 WBC 5.2 K/mm3 (Normal) Range: 4.4-11.0 69-Xzc-29590:23 CBC W/Diff, Auto - EPLAB Only Comments: At [facility] Outpatient [facility] patientsreceive CBC w/auto Differential ONLY. Physician will placean order for a manual differential or Pathologist review athis discretion. [facility]. [address] [place] [address] [address] HVAC LEAD: JOSE KOHLI DO PH:[phone] performed at:[facility] [address] [place], [place] [phone] Absolute Neut 2.0 {X10_3/uL} (Normal) Range: 2.0-7.7 [...] 4.2-5.4 WBC 4.0 K/mm3 (Abnormal) Range: 4.4-11.0 43-Vns-99822:23 Comprehensive Metabolic Profil Comments: Serial Specimen #1, #2 or #3? 1Test performed at:[facility] [address] [place], [place] [id number] GAP 6 (Normal) Range: 5-15 CO2 30.0 [...] Specimen #1, #2 or #3? 1Test performed at:[facility] [address] [place] [address] FERRITIN 255 ng/mL (Abnormal) Range: 8-252 :23 Iron Comments: Serial Specimen #1, #2 or #3? 1Test performed at:[facility] [address] [place] [address] IRON 72 ug/dL (Normal) Range: 50-170 :23 Iron Binding Capacity,Total Comments: Serial Specimen #1, #2 or #3? 1Test performed at:[facility] [address] [place] [address] TIBC 320 ug/dL (Normal) Range: 250-450 :23 LDH 176 U/L (Normal) Comments: Serial Specimen #1, #2 or #3? 1Test performed at:[facility] [address] [place] [address] Range: 87-241 :23 Uric Acid Comments: Serial Specimen #1, #2 or #3? 1Test performed at:[facility] [address] [place] [address] URIC 5.2 mg/dL (Normal) Range: 2.6-6.0 :45 Copper, Serum or Plasma Comments: Test performed at:[facility] [address] [place] [address] COPPER 112 ug/dL (Normal) Range: 72-166 Comments: Detection Limit = 5Performed at: [facility]CoNew [facility] CenterJobetq1493 [place], [place] [id number] Director: Scot Nuñez PhD, Phone: [phone] at: [facility] LabCoTonya [place] [address] [place], [place] [address]Hyv Director: Satish Mayer MD, Phone: [phone] 25-Jun-20149:45 Lead, Blood Adult 16+yrs Comments: Test performed at:[facility] [address] [facility] [place] [address] LEAD *Form (Normal) Comments: None Detected Environmental Exposure: WHO Recommendation <20 Occupational Exposure: OSHA Lead Std 40 NIKI 30 Detection Limit = 1 8-Ybz-276884:43 Comprehensive Metabolic Profil Comments: Serial Specimen #1, #2 or #3? 1Is Patient Taking Vitamins or Folic Acid Supplements? NTest performed at:[facility] [address] [facility]. [place], [place] [phone] GAP 6 (Normal) Range: 5-15 CO2 30.0 [...] 7-18 GLU 86 mg/dL (Normal) Range: 70-110 6-Fui-460353:43 Direct Antiglobulin Diann YUVAL Comments: Test performed at:[facility] [address] [place] [address] DIRECT DAINN= NEG w/POLYSPECIFIC (Normal) 3-Lug-398287:43 Erythropoietin Comments: Is Patient Fasting? NTest performed at:[facility] [address] [place] [address] ERYTHROP [id number] 24.8 m[iU]/mL (Abnormal) Range: 2.6-18.5 2-Uff-184644:43 Ferritin Comments: Serial Specimen #1, #2 or #3? 1Is Patient Taking Vitamins or Folic Acid Supplements? NTest performed at:[facility] [address] [place] [address] FERRITIN 11 ng/mL (Normal) Range: 8-252 6-Fmz-396128:43 Folates, (Folic Acid) Comments: Serial Specimen #1, #2 or #3? 1Is Patient Taking Vitamins or Folic Acid Supplements? NTest performed at:[facility] [address] [place] [address] FOLATES 48.80 ng/mL (Abnormal) Range: 3.1-17.5 :43 Haptoglobin Comments: Is Patient Fasting? NTest performed at:[facility] [address] [place] [address] HAPTOGLOB 1628 224 mg/dL (Abnormal) Range: 34-200 Comments: Performed at: - [facility] [id number] Director: Scot Nuñez PhD, Phone: [phone] 1-Mpe-174053:43 THEE + Protein Elect, Serum Comments: Is Patient Fasting? NTest performed at:[facility] [address] [place] [address] NOTE: Comment (Normal) Comments: Protein electrophoresis scan will follow via computer,mail, or editor index delivery. THEE RESULT,S Comment: (Normal) Comments: THEE SHOWS ATYPICAL LAMBDA. A/G RATIO 1.4 (Normal) Range: 0.7-2.0 GLOBULIN, TOTAL 2.8 g/dL (Normal) Range: 2.0-4.5 M-SPIKE (Normal) Comments: Not Observed GAMMA GLOBULIN 0.9 g/dL (Normal) Range: 0.5-1.6 BETA GLOBULIN 0.9 g/dL (Normal) Range: 0.6-1.3 OWKUE-1-IVZH 0.9 g/dL (Normal) Range: 0.4-1.2 QLOEO-8-TSBZ 0.3 g/dL (Normal) Range: 0.1-0.4 ALBUMIN 3.9 g/dL (Normal) Range: 3.2-5.6 IMMUNOGL M 1792 69 mg/dL (Normal) Range: 40-230 IMMUNO A 1784 133 mg/dL (Normal) Range: 91-414 IMMUNO G 1776 959 mg/dL (Normal) Range: 700-1600 PROTEIN,TOTAL 6.7 g/dL (Normal) Range: 6.0-8.5 :43 Iron Binding Capacity,Total Comments: Serial Specimen #1, #2 or #3? 1Is Patient Taking Vitamins or Folic Acid Supplements? NTest performed at:[facility] [address] [place] [address] TIBC 407 ug/dL (Normal) Range: 250-450 7-Sgo-133244:43 [place] L[employer] Light Chains Comments: Is Patient Fasting? NTest performed at:[facility] [address] [facility] [place] [address] KAPPA/LAMBDA % 1.35 (Normal) Range: 0.26-1.65 FR LAMBDA LT CH 18.72 mg/L (Normal) Range: 5.71-26.30 FR KAPPA LT CHN 25.25 mg/L (Abnormal) Range: 3.30-19.40 0-Kgf-785077:43 LDH 173 U/L (Normal) Comments: Serial Specimen #1, #2 or #3? 1Is Patient Taking Vitamins or Folic Acid Supplements? NTest performed at:[facility] [address] [place] [address] Range: 87-241 2-Nts-389521:43 Retic Panel Comments: Test performed at:[facility] [address] [place] [address] IPF 2.5 % (Normal) Range: 1.0-7.9 [...] 3.00-15.90 RETIC 0.97 % (Normal) Range: 0.5-1.5 5-Hcy-859291:43 Thyroid Stim Hormone (TSH) Comments: Serial Specimen #1, #2 or #3? 1Is Patient Taking Vitamins or Folic Acid Supplements? NTest performed at:[facility] [address] [place] [address] TSH 1.87 {uIU/mL} (Normal) Range: 0.358-3.74 8-Mos-253210:43 Uric Acid Comments: Serial Specimen #1, #2 or #3? 1Is Patient Taking Vitamins or Folic Acid Supplements? NTest performed at:[facility] [address] [place] [address] URIC 5.0 mg/dL (Normal) Range: 2.6-6.0 2-Nav-495829:43 Vitamin B12 548 pg/mL (Normal) Comments: Test performed at:[facility] [address] [place] [address] Range: 211-911 0-Mbn-702779:42 CBC W/Diff, Auto - EPLAB Only Comments: At [facility] patientsreceive CBC w/auto Differential ONLY. Physician will placean order for a manual differential or Pathologist review athis discretion. [facility]. [address] [place] [place] [address] [address] HVAC LEAD: JOSE KOHLI DO PH:[phone] performed at:[facility] [address] [place] [address] Absolute Neut 2.6 {X10_3/uL} (Normal) Range: 2.0-7.7 [...] 4.2-5.4 WBC 4.8 K/mm3 (Normal) Range: 4.4-11.0 37-Map-13076:56 METABOLIC PANEL, COMPREHENSIVE Comments: PATIENT WAS FASTINGPERFORMED BY: [facility]CoNew [facility] Medical CenterSqfvvl4927 [facility] [id number] (289[address]) ALT (SGPT) 5 [iU]/L (Normal) Range: 0-32 [...] mg/dL (Normal) Range: 65-99 :56 LIPID PANEL (49037) Comments: PATIENT WAS FASTINGPERFORMED BY: [employer] [id number] LDL/HDL Ratio 1.3 {ratio_units} (Normal) Range: 0.0-3.2 [...] DIFF WBC Comments: PATIENT WAS FASTINGPERFORMED BY: [employer] [facility] [id number] Information: [id number] (03173) Immature Grans (Abs) 0.0 {x10E3/uL} (Normal) Range: [...] 3.77-5.28 WBC 4.8 {x10E3/uL} (Normal) Range: 3.4-10.8 7-Bya-115655:44 Protein Electro, Random Urine Comments: PATIENT WAS FASTINGPERFORMED BY: [facility]6370 [facility] [id number] Please note: SPRCS (Normal) Comments: Protein electrophoresis scan will follow via computer, mail, orcourier delivery. M-Abhinav, % Not Observed % (Normal) Gamma Globulin, U 19.9 % (Normal) Beta Globulin, U 25.8 % (Normal) Ksaqf-9-Pxdnsbxg, U 12.8 % (Normal) Hmmtr-8-Xrtanqen, U 1.3 % (Normal) Albumin, U 40.2 % (Normal) Protein,Total,Urine 13.5 mg/dL (Normal) Range: 0.0-15.0 :44 Protein Electro.,S Comments: PATIENT WAS FASTINGPERFORMED BY: [place] [id number] [facility] [id number]; will review on 05/07 appt Please note: SPRCS (Normal) Comments: Protein electrophoresis scan will follow via computer, mail, orcourier delivery. A/G Ratio 1.2 (Normal) Range: 0.7-2.0 Globulin, Total 3.0 g/dL (Normal) Range: 2.0-4.5 M-Abhinav Not Observed g/dL (Normal) Gamma Globulin 1.0 g/dL (Normal) Range: 0.5-1.6 Beta Globulin 0.8 g/dL (Normal) Range: 0.6-1.3 Ehbpo-4-Sknpfqdh 0.9 g/dL (Normal) Range: 0.4-1.2 Jgsut-6-Ijwiouda 0.3 g/dL (Normal) Range: 0.1-0.4 Albumin 3.7 g/dL (Normal) Range: 3.2-5.6 Protein, Total, Serum 6.7 g/dL (Normal) Range: 6.0-8.5 Written Authorization WAR (Normal) Comments: PATIENT WAS FASTINGPERFORMED BY: [facility]6370 [facility] [id number] :44 Comments: Written Authorization Received.Authorization received from ENRIKE JAIMES [id number] by Jyothi Boland :44 LIPID PANEL (54059) Comments: PATIENT WAS FASTINGPERFORMED BY: [facility]6370 [facility] [id number] LDL/HDL Ratio 1.9 {ratio_units} (Normal) Range: 0.0-3.2 [...] Cholesterol, Total 211 mg/dL (Abnormal) Range: 100-199 7-Zqm-042221:37 FECAL OCCULT- Tubes sent home (97046) FECAL OCCULT HGB ASSAY, QUAL, 1-3 SIMULTANEOU positive (Normal) 4-Dpc-694519:44 RETICULOCYTE COUNT MANUL Comments: PATIENT WAS FASTINGPERFORMED BY: [facility] [id number] (84828) Reticulocyte Count 1.6 % (Normal) Range: 0.6-2.6 0-Wav-709808:44 LDH (LD) (LACTATE DEHYDROGENASE) Comments: PATIENT WAS FASTINGPERFORMED BY: [facility] [facility] [id number] (37823) LDH 207 [iU]/L (Normal) Range: 119-226 1-Exx-490511:44 IRON BINDING CAPACITY (TIBC) Comments: PATIENT WAS FASTINGPERFORMED BY: [facility] [id number] (47302) Iron Saturation 16 % (Normal) Range: 15-55 Iron, Serum 50 ug/dL (Normal) Range: 35-155 UIBC 270 ug/dL (Normal) Range: 150-375 Iron Bind.Cap.(TIBC) 320 ug/dL (Normal) Range: 250-450 1-Aet-396476:44 FERRITIN (92220) Comments: PATIENT WAS FASTINGPERFORMED BY: [facility] [id number] Ferritin, Serum 84 ng/mL (Normal) Range: 15-150 3-Umg-105155:44 CBC W/AUTO DIFF WBC (37226) Comments: PATIENT WAS FASTINGPERFORMED BY: [facility] [id number] Immature Grans (Abs) 0.0 {x10E3/uL} (Normal) Range: [...] CREATININE RATIO Comments: PATIENT WAS FASTINGPERFORMED BY: [facility]CoJames [place] [id number] [facility] [id number] (08385) AND (24717) Microalb/Creat Ratio 21.9 {mg/g_creat} (Normal) Range: 0.0-30.0 Microalbumin, Urine 22.0 ug/mL (Abnormal) Range: 0.0-17.0 Creatinine, Urine 100.3 mg/dL (Normal) Range: 15.0-278.0 :44 Hemoglobin Glyclated (HGB A1C) Comments: PATIENT WAS FASTINGPERFORMED BY: [facility]6370 [facility] [id number] (66871) Hemoglobin A1c 5.5 % (Normal) Range: 4.8-5.6 Comments: . Increased risk for diabetes: 5.7 - 6.4 Diabetes: >6.4 Glycemic control for adults with diabetes: <7.0 :39 Microscopic Examination Comments: PATIENT NOT FASTINGPERFORMED BY: [facility]6370 [facility] [id number] Bacteria Few (Normal) Mucus Threads Present (Normal) Epithelial Cells (non renal) 0-10 {/hpf} (Normal) Range: 0 - 10 RBC 0-2 {/hpf} (Normal) Range: 0 - 2 WBC 6-10 {/hpf} (Abnormal) Range: 0 - 5 :37 D-Dimer (81412) Comments: PATIENT NOT FASTINGPERFORMED BY: [facility]6370 [facility] [id number] Information: [id number] D-Dimer 0.84 {mg/L_FEU} (Abnormal) Range: 0.00-0.49 Comments: In conjunction with a non-high clinical probability assessment, anormal (<0.50 mg/L FEU) result excludes deep vein thrombosis (DVT)and pulmonary embolism (PE) with high sensitivity. :39 Vitamin D Hydroxy (81048) Comments: PATIENT NOT FASTINGPERFORMED BY: [facility]6370 [facility] [id number] Vitamin D, 25-Hydroxy 38.7 ng/mL (Normal) Range: 30.0-100.0 Comments: Vitamin D deficiency has been defined by the [place] ofMedicine and an Endocrine Society practice guideline as alevel of serum 25-OH vitamin D less than 20 ng/mL (1,2).The Endocrine Society went on to further define vitamin Dinsufficiency as a level between 21 and 29 ng/mL (2).1. IOM ([place] of Medicine). 2010. Dietary reference intakes for calcium and D. [place]: The National Academies Press.2. Jose Carlos MF, Flip [place], David ROME, et al. Evaluation, treatment, and prevention of vitamin D deficiency: an Endocrine Society clinical practice guideline. JCEM. 2010; 96(7):1911-30. 96-Gky-073839:39 Valproic Acid (75644) Comments: PATIENT NOT FASTINGPERFORMED BY: [facility] [address] RoadDublin [place] [id number] Valproic Acid (Depakote),S 105 ug/mL (Abnormal) Range: 50-100 Comments: Detection Limit = 4 <4 indicates None Detected . Toxicity may occur at levels of 100-500. Measurements of free unbound valproic acid may improve the assess- ment of clinical response.Patient drug level exceeds published reference range. Evaluateclinically for signs of potential toxicity. 32-Lyj-494513:39 VITAMIN B-12 (CYANOCOBALAMIN) Comments: PATIENT NOT FASTINGPERFORMED BY: [facility] [address] [place] [id number] (51746) Vitamin B12 1017 pg/mL (Abnormal) Range: 211-946 83-Mhx-562175:39 FERRITIN (02480) Comments: PATIENT NOT FASTINGPERFORMED BY: [facility] [address] [place] [id number] Ferritin, Serum 77 ng/mL (Normal) Range: 15-150 73-Eou-568737:39 IRON (72024) Comments: PATIENT NOT FASTINGPERFORMED BY: [facility] [address] [id number] Iron, Serum 32 ug/dL (Abnormal) Range: 35-155 26-Tfs-952249:39 CBC W/AUTO DIFF WBC Comments: PATIENT NOT FASTINGPERFORMED BY: [facility] [address]xfja[address] [id number] Information: [id number],2ND ORDER NO DRAW F EE (41329) Immature Grans (Abs) 0.0 {x10E3/uL} (Normal) Range: [...] 3.77-5.28 WBC 6.2 {x10E3/uL} (Normal) Range: 3.4-10.8 99-Trc-046978:39 TSH (06242) Comments: PATIENT NOT FASTINGPERFORMED BY: [employer] Gdrfyi5050 [facility] [id number] TSH 1.800 {uIU/mL} (Normal) Range: 0.450-4.500 04-Wef-829359:39 URINALYSIS, W/ MICRO (05631) Comments: PATIENT NOT FASTINGPERFORMED BY: [employer] Fwuwlg1570 [facility] [id number] Microscopic Examination See below: (Normal) Comments: Microscopic was indicated and was performed. Nitrite, Urine Negative (Normal) Urobilinogen,Semi-Qn 0.2 mg/dL (Normal) Range: 0.0-1.9 Bilirubin Negative (Normal) Occult Blood Negative (Normal) Ketones Negative (Normal) Glucose Negative (Normal) Protein Negative (Normal) WBC Esterase 1+ (Abnormal) Appearance Clear (Normal) Urine-Color Yellow (Normal) pH 6.5 (Normal) Range: 5.0-7.5 Specific [place] 1.013 (Normal) Range: 1.005-1.030 27-Ckm-026188:39 METABOLIC PANEL, COMPREHENSIVE Comments: PATIENT NOT FASTINGPERFORMED BY: [facility]CoNew [facility] Medical CenterRrafsl5445 [facility] [id number] (74838) ALT (SGPT) 5 [iU]/L (Normal) Range: 0-32 [...] Syncope Planned Observations CBC W/AUTO DIFF WBC (48020)Indication: Hypertension, benign On: :29 Request METABOLIC PANEL, COMPREHENSIVE (30251)Indication: Hypertension, benign On: :29 Request CBC with auto diff (10967)Indication: Elevated hemoglobin A1c On: 38-Rcj-546942:16 Request METABOLIC PANEL, COMPREHENSIVE (45242)Indication: Elevated hemoglobin A1c On: 55-Lrn-283066:16 Request HGB A1C (06329)Indication: Elevated hemoglobin A1c On: 50-Eou-309280:16 Request LIPID PANEL (08141)Indication: Other hyperlipidemia On: 72-Epj-838636:16 Request TSH (90936)Indication: Abnormal TSH On: 04-Uzu-758816:09 Request TSH (THYROID STIMULATING HORMONE) (03578)Indication: Abnormal TSH On: 44-Wud-058114:15 Request LIPID PANEL (57115)Indication: Other hyperlipidemia On: 36-Swf-513485:14 Request CBC with auto diff (06475)Indication: Elevated hemoglobin A1c On: 18-Inv-057560:14 Request METABOLIC PANEL, COMPREHENSIVE (73028)Indication: Elevated hemoglobin A1c On: 00-Xyc-262359:14 Request HGB A1C (73704)Indication: Elevated hemoglobin A1c On: 58-Eui-255697:14 Request CBC W/AUTO DIFF WBC (13745)Indication: Anemia On: 48-Xek-257490:30 Request CBC with auto diff (08636)Indication: Anemia On: 66-Txz-931835:02 Request METABOLIC PANEL, COMPREHENSIVE (43441)Indication: Impaired Fasting Glucose (Renamed from Elevated fasting blood sugar) On: 57-Vxh-347007:02 Request TSH (90448)Indication: Abnormal TSH On: 51-Ehb-269893:01 Request SED RATE ERYTHROCYTE (29227)Indication: Anemia On: :58 Request C-REACTIVE PROTEIN (81955)Indication: Anemia On: :58 Request FOLIC ACID SERUM (26938)Indication: Anemia On: :58 Request VITAMIN B-12 (CYANOCOBALAMIN) (43765)Indication: Anemia On: :58 Request IGA/IGD/IGG/IGM-EACH (36618)Indication: Anemia On: :33 Request CBC W/AUTO DIFF WBC (24003)Indication: Impaired Fasting Glucose (Renamed from Elevated fasting blood sugar) On: : Request METABOLIC PANEL, COMPREHENSIVE (75455)Indication: Impaired Fasting Glucose (Renamed from Elevated fasting blood sugar) On: : Request Vitamin D Hydroxy (66361)Indication: Other osteoporosis On: : Request CBC with auto diff (74335)Indication: Anemia On: :22 Request TSH (THYROID STIMULATING HORMONE) (64407)Indication: Abnormal TSH On: :21 Request HGB A1C (71825)Indication: Impaired Fasting Glucose (Renamed from Elevated fasting blood sugar) On: : Request serum immunofixation (10417)Indication: Anemia On: : Request urine immunofixation (18265)Indication: Anemia On: : Request LIPID PANEL (76072)Indication: Other hyperlipidemia On: :15 Request METABOLIC PANEL, COMPREHENSIVE (37543)Indication: Hypertension, benign On: 22-Gjh-986956:14 Request LIPID PANEL (89055)Indication: Fibromyalgia (Renamed from Diffuse myofascial pain syndrome) On: 21-Xdd-322308:14 Request TSH (THYROID STIMULATING HORMONE) (06020)Indication: Abnormal TSH On: :15 Request HGB A1C (73117)Indication: Impaired Fasting Glucose (Renamed from Elevated fasting blood sugar) On: :15 Request CBC with auto diff (95025)Indication: Hypertension, benign On: :15 Request METABOLIC PANEL, COMPREHENSIVE ([id number])Indication: Hypertension, benign On: :15 Request LIPID PANEL ([id number])Indication: Other hyperlipidemia On: :14 Request ASSAY, TROPONIN, QUANTITATIVE (aka Troponin I) (74784)Indication: Atypical chest pain On: 9-Umn-264885:02 Request TSH (83601)Indication: Abnormal TSH On: 5-Owa-163100:56 Request CBC WITH MANUAL DIFF (86324)Indication: Other specified nutritional anemias On: 2-Bdw-848773:48 Request Comments: 1 month TSH (THYROID STIMULATING HORMONE) (65439)Indication: Hypertension, benign On: :15 Request Iron (95346)Indication: Anemia On: 0-Ymj-606437:59 Request METABOLIC PANEL, COMPREHENSIVE (67547)Indication: Other osteoporosis On: 9-Xue-914726:01 Request Vitamin D Hydroxy (23120)Indication: Other osteoporosis On: :37 Request LIPID PANEL (69106)Indication: Other hyperlipidemia On: :36 Request HGB A1C (02090)Indication: Impaired Fasting Glucose (Renamed from Elevated fasting blood sugar) On: :35 Request MICROALBUMIN: CREATININE RATIO ([id number]) AND (78378)Indication: Impaired Fasting Glucose (Renamed from Elevated fasting blood sugar) On: :35 Request Metabolic Panel, Comprehensive (27701)Indication: Gastroenteritis On: 62-Egy-346878:09 Request CBC, Platelets & Auto Diff ([id number])Indication: Gastroenteritis On: 04-Ixl-716138:09 Request Sed Rate Erythrocyte (75650)Indication: Gastroenteritis On: 53-Who-545137:09 Request CBC WITH MANUAL DIFF (22685)Indication: Anemia On: :12 Request Comments: 6 weeks TSH (98721)Indication: Abnormal TSH On: 8-Lfs-101926:11 Request Comments: 6 weeks VITAMIN B-12 (CYANOCOBALAMIN) (84187)Indication: Anemia On: :39 Request TSH ([id number])Indication: Abnormal TSH On: 04-Zdf-60792:40 Request CBC W/AUTO DIFF WBC (86333)Indication: Anemia On: 43-Hpl-79189:40 Request TSH (59004)Indication: Abnormal TSH On: 74-Itc-86077:25 Request Comments: ADD ON METABOLIC PANEL, COMPREHENSIVE (22371)Indication: Impaired Fasting Glucose (Renamed from Elevated fasting blood sugar) On: 88-Fra-251025:43 Request Anti-TPO Antibody (13132)Indication: Abnormal TSH On: :42 Request T4, FREE (THYROXINE) (05102)Indication: Abnormal TSH On: :42 Request T3, FREE (TRIDOTHYRONINE) (61604)Indication: Abnormal TSH On: :42 Request RHEUMATOID FACTOR-QUANT (33563)Indication: Chronic right shoulder pain On: :32 Request SED RATE ERYTHROCYTE (06454)Indication: Chronic right shoulder pain On: :32 Request C-REACTIVE PROTEIN (27448)Indication: Chronic right shoulder pain On: :32 Request CBC W/AUTO DIFF WBC (04171)Indication: Hypertension, benign On: :31 Request METABOLIC PANEL, COMPREHENSIVE (48032)Indication: Hypertension, benign On: :31 Request LIPID PANEL ([id number])Indication: Other hyperlipidemia On: :31 Request TSH (86145)Indication: Chest pain at rest On: 20-Vcx-123770:31 Request HGB A1C (72479)Indication: Impaired Fasting Glucose (Renamed from Elevated fasting blood sugar) On: 6-Thx-738063:00 Request CBC with auto diff ([id number])Indication: Impaired Fasting Glucose (Renamed from Elevated fasting blood sugar) On: 9-Kjz-527193:00 Request METABOLIC PANEL, COMPREHENSIVE (19905)Indication: Impaired Fasting Glucose (Renamed from Elevated fasting blood sugar) On: 4-Phl-940481:00 Request LIPID PANEL (76354)Indication: Other hyperlipidemia On: 5-Utv-028530:00 Request VITAMIN B-12 (CYANOCOBALAMIN) ([id number])Indication: Other specified nutritional anemias On: 2-Ypy-410250:59 Request Vitamin D Hydroxy (52493)Indication: Other osteoporosis On: :59 Request CBC (AUTO) (18134)Indication: Other osteoporosis On: :48 Request Vitamin D Hydroxy (30053)Indication: Other osteoporosis On: :48 Request METABOLIC PANEL, COMPREHENSIVE (62501)Indication: Other hyperlipidemia On: :48 Request LIPID PANEL (65000)Indication: Other hyperlipidemia On: :48 Request SED RATE ERYTHROCYTE (89763)Indication: Chest pain, unspecified type On: :39 Request Comments: stat C-REACTIVE PROTEIN (31523)Indication: Chest pain, unspecified type On: :39 Request Comments: stat CBC W/AUTO DIFF WBC (28105)Indication: Chest pain, unspecified type On: :39 Request Comments: stat Hemoglobin Glyclated (HGB A1C) (08513)Indication: Impaired Fasting Glucose (Renamed from Elevated fasting blood sugar) On: 43-Vpg-929111:50 Request URINALYSIS, W/ MICRO ([id number])Indication: Hypertension, benign On: 02-Qak-326139:49 Request CBC with auto diff ([id number])Indication: Other specified nutritional anemias On: 12-Hcn-745298:49 Request METABOLIC PANEL, COMPREHENSIVE (32155)Indication: Other specified nutritional anemias On: 32-Zth-728686:49 Request LIPID PANEL (13024)Indication: Other hyperlipidemia On: 24-Nxz-345597:49 Request CBC W/AUTO DIFF WBC ([id number])Indication: Other specified nutritional anemias On: :24 Request METABOLIC PANEL, COMPREHENSIVE (12171)Indication: Other hyperlipidemia On: 55-Vhq-422451:24 Request LIPID PANEL (23607)Indication: Other hyperlipidemia On: 50-Pou-563471:24 Request IRON ([id number])Indication: Other specified nutritional anemias On: 8-Mnf-201684:37 Request Planned Encounters Medical; [facility] [...] DIGITAL TOMOSYNTHESIS OF On: 17-Nov-2017 Intent BREAST ([id number])By: Fast DO, Enrike A Fast DO, Enrike A MRI OF THORACIC SPINE WITHOUT On: 13-Aug-2017 Intent CONTRAST ([id number])By: Fast DO, Enrike A Fast DO, Enrike A MRI LUMBAR SPINE W/O CONTRAST On: 13-Aug-2017 Intent ([id number])By: Fast DO, Enrike A Fast DO, Enrike A INJECTION, PROLIA ([id number])By: Fast On: 26-Jul-2017 Intent DO, Enrike A Fast DO, Enrike A Comments: Prolia prefilled syringe 60mg/mlLot:[id number]:10/2019L arm SQPt tolerated wellMLONG ,M[employer] WORKER Radiology - Lumbar SpineBy: Fast DO, On: 09-Jun-2017 Intent Enrike A Fast DO, Enrike A Radiology - Thoracic SpineBy: Fast On: 09-Jun-2017 Intent DO, Enrike A Fast DO, Enrike A MRI OF BRAIN WITH AND WITHOUT On: 13-Apr-2017 Intent CONTRAST ([id number])By: Fast DO, Enrike A Fast DO, Enrike A ELECTROCARDIOGRAM, COMPLETE (ECG) On: 13-Apr-2017 Intent ([id number])By: Fast DO, Enrike A Fast DO, Comments: [...] DIGITAL TOMOSYNTHESIS OF On: 30-Sep-2016 Intent BREAST ([id number])By: Fast DO, Enrike A Comments: end of oct Fast DO, Enrike A CT - Chest (Without Contrast)By: On: 30-Sep-2016 Intent Fast DO, Enrike A Fast DO, Enrike A Cartoid DopplerBy: Fast DO, Enrike A On: 04-Sep-2016 Intent Fast DO, Enrike A DEXA SCAN AXIAL SKELETON ([id number])By: On: 04-Sep-2016 Intent Fast DO, Enrike A Fast DO, Enrike A Comments: mid september INJECTION, PROLIA ([id number])By: Fast On: 26-Aug-2016 Intent DO, Enrike A Fast DO, Enrike A Comments: prolialot:[id number]:12ite:lt subqroute:subqdose:60mg/mlD.ARNOLDO Ardon ELECTROCARDIOGRAM, COMPLETE (ECG) On: 22-Jul-2016 Intent ([id number])By: Fast DO, Enrike A Fast DO, Comments: ekg showed normal sinus rhythym, normal axis, no acute st/t wave changes Enrike A Cartoid DopplerBy: Fast DO, Enrike A On: 25-May-2016 Intent Fast DO, Enrike A Comments: bilateral INFUSION, NORMAL SALINE SOLUTION , On: 09-Apr-2016 Intent 1000 CC (Special Coverage Instructions Apply. See MCM: 2049) ([id number])By: Madyson Montiel MD ELECTROCARDIOGRAM, COMPLETE (ECG) On: 12-Feb-2016 Intent ([id number])By: Fast DO, Enrike A Fast DO, Comments: ekg showed normal sinus rhythym, normal axis, no acute st/t wave changes Enrike A CT - Chest (Without Contrast)By: On: 12-Feb-2016 Intent Fast DO, Enrike A Fast DO, Enrike A Flu Vaccine (Quadrivalent) 15435Pg: On: 12-Feb-2016 Intent Fast DO, Enrike A Fast DO, Enrike A Comments: FLUlot: [id number]:Lt deltoidroute:IMdose:.5mlARNOLDO WALLACE ADMINISTRATION OF INFLUENZA VIRUS On: 12-Feb-2016 Intent VACCINE ([id number])By: Fast DO, Enrike A Fast DO, Enrike A MAMMOGRAM, SCREENING, BOTH BREAST On: 13-Nov-2015 Intent ([id number])By: Fast DO, Enrike A Fast DO, Enrike [...] Intent Fast DO, Enrike A ZOSTER VACC, [place] (32408)By: Reva, On: 06-Mar-2015 Intent [place] Comments: Zosterlot:[id number]:01/26/16ite:lt subqroute:subqDEMICK, SMA PNEUM VAC ADLT/IMUMNOSPR, SBC/INTRM On: 20-Feb-2015 Intent ([id number])By: Visit, Nurse Comments: Pnuemovaxlot:[id number]:10/30/16site:lt deltoidroute:IMDose:.5mlDEMICK, SMA Flu Vaccine (Quadrivalent) 65364Dc: On: 11-Feb-2015 Intent Fast DO, Enrike A Fast DO, Enrike A Comments: Lot #:[id number] date: 08/2015Amount given:prefilled syringeSite given:L Dltd, IMGiven by: MARGOTH Garibay and ABN signed ADMINISTRATION OF INFLUENZA VIRUS On: 11-Feb-2015 Intent VACCINE ([id number])By: Fast DO, Enrike A Fast DO, Enrike A MAMMOGRAM, SCREENING, BOTH BREAST On: 25-Sep-2014 Intent ([id number])By: Fast DO, Enrike A Fast DO, Enrike [...] 17-Apr-2014 Intent CHEST WITH AND WITHOUT CONTRAST ([id number])By: Enrike Jaimes DO A Fast DO, Enrike A CT - Brain/HeadBy: Fast DO, Enrike A On: 16-Apr-2014 Intent Fast DO, Enrike A Doppler Ultrasound OtherBy: Fast DO, On: 16-Apr-2014 Intent Enrike A Fast DO, Enrike A EKG ([id number])By: Matt MCDUFFIE Enrike A On: 16-Apr-2014 Intent [...] Advance Directives Name Dates Details Immunization Registry [place] - Effective on 02/22/2018. Effective: 22-Feb-2018 Expiration [...] for copd/cough - [facility] = bp is good [...] The patient does have durable power of care manager cna and l iving will (she thinks). The patient has noticed staying at home rather than doing something new or going out and lack of energy. Other providers contributing to the patient's care are deckhand shrimp boat (Dr. Cota), machinist/machine builder (Dr. Pop) and other: (Motor Runner- Dr. Villa sees eye dr mann.). Note [...] Limb swelling), Fatigue [facility] Payers Crump/Medicare Adv Olivia LOPEZ; a guarantor
--- OUTSIDE RECORDS SUMMARY | 2018-04-13 15:10 | XMS RPT_ITS | Continuity of Care Document ---
:1945 Author Organization [facility] Address [address] [facility] [address] [place] [address] Phone Care Team Providers Name Role Phone Enrike Jaimes DO Unavailable Cipriano JC, Mike Avelar Unavailable Dayron Monique Unavailable Domenic Navarrete Forreston Unavailable Steven Carlisle MD Unavailable [facility], [facility] Unavailable Phong Graham Unavailable Mao [...] 12-Jul-2017 Active Comments:Pt gets funding thru the [employer] so send a bill to either them or the pt and then they will az-ybtkwdr-egn 07/28/16 RaNITidine HCl 300 MG Oral Tablet [...] 500MG (Oral Tablet) 1 (one) Tablet daily t49sprr for 14 days Quantity: 14 {Tablet} Refills: [...] evualate at home with meds and [facility]. i went to house, called in [place], told her brat diet slowly, my nurse [...] Visit Report Result: Comments: See Note; NOTES: [facility] Oncology [address] [place] [address] [place] [address] OFFICE VISIT Date of Service: 01/25/18 1145 MR#: [id number] Acct: [id number] Name: LUPE LOPEZ Rep #: [id number] : 1945 From: Red Spaulding MD Age/Sex: [...] Iron supplements with Vitamin C o r Terry juice. Check stool for FOBT. RTC 6 [...] Chronic Code Visit Office Visits / Consults: 47220 OV L3 Est 01/25/18 1153 <Electronically signed by Red Spaulding MD> Date Red Spaulding MD Cosigner Signature: Date (if applicable) CC: Enrike Jaimes DO 23-Dec-2017 Cerv Spine 2 or 3 Views Result: Comments: See Note; NOTES: [facility] Imaging Services [address] [place] [address] Cerv Spine 2 or 3 Views MR#: [id number] Acct: [id number] Name: LUPE LOPEZ Rep #: [id number] : 1945 F 72 From: Ming Odonnell MD PCP: Enrike Jaimes DO Status: REG CLI Study: Cerv Spine 2 or 3 Views Date of Exam: 12/23/17 Exam# [id number] Ordering Dr: Karla Berry ARMATURE CONNECTOR-C STUDY: X-RAY - C ERVICAL SPINE REASON [...] Fax CC: Enrike Jaimes DO; Karla Berry Director Organizational: Signed 23-Dec-2017 Thoracic Spine 2 Views Result: Comments: See Note; NOTES: [facility] Imaging Services [address] [place] [address] Thoracic Spine 2 Views MR#: [id number] Acct: [id number] Name: LUPE LOPEZ Rep #: [id number] : 1945 F 72 From: Ming Odonnell MD PCP: Enrike Jaimes DO Status: REG CLI Study: Thoracic Spine 2 Views Date of Exam: 12/23/17 Exam# [id number] Ordering Dr: Karla Berry STUDY: X-RAY - [...] CC: Enrike Jaimes DO; Karla LOPEZ Prebish Director Organizational: Signed 11-Dec-2017 Carotid Duplex Ultrasound Result: Comments: See Note; NOTES: [facility] Cardiovascular Services [address] [place] [address] Carotid Duplex Ultrasound 12/10/17 1013 MR#: [id number] Acct: [id number] Name: LUPE BOOGIE Rep #: [id number] : 1945 72 From: Brice Murphy MD Attending Dr: Enrike Jaimes DO Status: REG CLI Ordering Dr: Enrike Jaimes DO Date: 12/10/17 Location: [facility] Sex: F C Admitted: Reason For [...] the left vertebral artery. Procedure Carotid Duplex 08491. Exam performed in department. Interpretation Summary Mild (<50%) stenosis right extracranial inter nal carotid. Mild (<50%) stenosis left extracranial internal carotid. Flow within the vertebral arteries is antegrade bilaterally. Ordering Physician: Enrike Jaimes Referring Physician: Enrike Jaimes Performed By: Riaz Ashley RVT and Student 12/11/17 1406 Date Brice Murphy MD CC: Enrike Jaimes DO Date Dictated: 12/10/17 1013 Date Transcribed: 12/11/17 1406 Director Organizational: Signed 10-Dec-2017 SCREENING MAMM (CAD), BILAT Result: Comments: See Note; NOTES: [facility] Imaging Services [address] [place] [address] SCREENING MAMM (CAD), BILAT MR#: [id number] Acct: [id number] Name: LUPE LOPEZ Rep #: [id number] : 1945 F 72 From: Johnny Gilman MD PCP: Enrike Jaimes DO Status: REG CLI Study: SCREENING MAMM (CAD), BILAT Date of Exam: 12/10/17 Exam# [id number] Ordering Dr: Enrike Jaimes DO MAMM OGRAPHY [...] will be sent to the patient by [facility] within 30 days. Approximately 10% of breast cancers are not detected by mammography. A normal mammogram should not delay biopsy of a clinically suspicious abnormality. [id number] Electronical ly Signed: Johnny Gilman MD at 13:14 EDT Tel [phone], Service support , CC: Enrike Jaimes DO Director Organizational: Signed 30-Nov-2017 Pulmonary Visit Report Result: Comments: See Note; NOTES: [facility] [place] [address] [place] [address] OFFICE VISIT Date of Service: 11/30/17 MR#: [id number] Acct: [id number] Name: LUPE BOOGIE Rep #: [id number] : 1945 Provider: Merlin Pop MD Age/Sex: 72/F Location: [facility] Status: Signed Assessment AND Plan [...] Orders: Medications Discontinued: azelastine admini ster into sjhx239.5 mcg (0.14 mL) Intranasal BIDJ30.2 Merlin Pop MD nostril Discontinued Reason: Pt no longer taking HPI 6 M FU: Chief Complaint: Chronic cough Details: [facility] 72[facility] currently under care of Dr. Jaimes, [...] kg Intake Visit Reasons: 6 M FU Child Welfare Manager Required: No Accompanied by: Family / Other [...] Lung nodule (Chronic) Atherosclerotic heart disease of [place] coronary artery without angina pectoris (Chronic) Moderate [...] Admin Location Lot Number Ex piration Date [facility] Hot Pipe Gauger 0.5 mL IM Left Deltoid [id number] 07/19/17 38034-222-92 SEQIRUS VIS Given Date VIS Publication Date [...] Downtime Report Result: Comments: See Note; NOTES: [facility] Medical Records Department [address] [place] [address] Downtime Report MR#: [id number] Acct: [id number] Name: LUPE LOPEZ Rep #: [id number] : 1945 72 From: Turner Diop PCP: Enrike Jaimes DO Status: REG CLI This patient was seen during an EMR downtime August 23, 2017 - August 30, 2017. This patient may have a combination of rosa maria r and electronic documentation or all paper documentation. All documentation is viewable within the e-chart portion of [employer] for each patient visit. 27-Aug-2017 Spine Lumbar (Routine) Result: Comments: See Note; NOTES: [facility] Imaging Services [address] [place] [address] Spine Lumbar (Routine) MR#: [id number] Acct: [id number] Name: CHASE LOPEZCatalina Rep #: [id number] : 1945 F 72 From: Carlos Pizano PCP: Enrike Jaimes DO Status: REG CLI Study: Spine Lumbar (Routine) Date of Exam: 08/25/17 Exam# [id number] Ordering Dr: Enrike Jaimes DO STUDY: MRI [...] suppo rt , CC: Enrike Jaimes DO Director Organizational: Signed 11-Aug-2017 Re-Evaluation - PT (1) Result: Comments: See Note; NOTES: [facility] [address] [place] [address]. [address] [place] [address] Fax REEVALUATION / MEDICARE RECERTI FICATION PHYSICAL THERAPY MR#: [id number] Acct: [id number] Name: LUPE LOPEZ Rep #: [id number] : 1945 72 From: Shanon Ferrara MPT Referring DrBrooke: Enrike Jaimes DO Status: REG RCR Insurance: [facility] MEDICARE PPO SELF PAY INSURANCE Enrike Fast, DO, It has been my pleasure to treat LUPE LOPEZ over the last 7 visits for LOW BACK PAIN. Please see the progress note below for an update on [facility] physical therapy plan of care! Subjective: [...] do not hesitate to contact me at [phone] by phone or if you have questions or concerns regarding this new plan of care! Sincerely, Shanon Ferrara &#60 ;Electronically signed by Shanon Ferrara MPT> 08/11/17 1913 CC: Enrike Jaimes DO Signed For Medicare only, by signing this I certify the plan of care. Physicians Signature Date 27-Jul-2017 Oncology Visit Report Result: Comments: See Note; NOTES: [facility] Oncology [address] [place] [address] OFFICE VISIT Date of Service: 07/27/17 1128 MR#: [id number] Acct: [id number] Name: LUPE LOPEZ Rep #: [id number] : 1945 From: Red Spaulding MD Age/Sex: [...] continue Iron supplements with Vitamin C or Terry juice. RTC 6 months with CBC, CMP, Iron studies. Nh dications: Prescriptions This Visit Medication Instructions Recorded Meloxicam [Mobic] 15 mg PO DAILY 06/16/16 Rivaroxaban [Xarelto] 20 mg PO DAILY 06/29/16 Primary Care Provider: Enrike Jaimes DO Refe rring Provider: - Problem List (1) Iron deficiency Status: Resolved Code Visit Office Visits / Consults: 67412 OV L3 Est 07/27/17 1135 <Electronically signed by Red Spaulding MD> Date Red Spaulding MD Cosigner Signature: Date (if applicable) CC: 15-Jul-2017 Stress Report Result: Comments: See Note; NOTES: [facility] Cardiovascular Services [address] [place] [address] MR#: [id number] Acct: [id number] Name: LUPE LOPEZ Rep #: [id number] : [birth year] 72 From: Mike Cota MD [...] %. This note was g enerated with [employer]ation software. It may contain incorrect words, spelling, and punctuation that were not noted in checking the note before signing. 07/15/17 1311 <Electronically s igned by Mike Cota MD> Date Mike Cota MD CC: Enrike Jaimes DO; Mike Cota MD Date Dictated: 07/15/17 130 Date Transcribed: 07/15/17 130 Director Organizational: PM Signed 08-Jul-2017 Inital Evaluation (1) - PT Result: Comments: See Note; NOTES: [facility] Physical Therapy [facility] [place], [place] [address] Fax REHABILITATION SERVICES INITIAL EVALUATION MR#: [id number] Acct: [id number] Name: LUPE LOPEZ Rep #: [id number] [...] to be FAXED BACK to us at [phone] for Medicare purposes. Please let me know [...] Visit Report Result: Comments: See Note; NOTES: [facility] [address] [place] [address] OFFICE VISIT Date of Service: 07/05/17 MR#: [id number] Acct: [id number] Name: LUPE LOPEZ Rep #: [id number] : 1945 Provider: Mike Cota MD Age/Sex: 72/F Location: [facility] Status: Signed HPI HPI Details: LUPE [...] Her previous diagnostic cardiac cathete rization from [facility] from 05/03/2009 is as noted below. ASSESSMENT: 1. Mild to moderate coronary atherosclerosis, non-flow limiting by angiography. 2. Presered left mipz4ckvye systolic a nd diastolic function. CLINICAL CORRELATION: This Is a 64-year-old wtio presents with angina ha1ng atypical features, she has nonflowIlmTting disease hr which aggressiw medical therapy is warranted Incl uding aspirin, beta jonn, DAPHNEY Inhibitor, and statin therapy. 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 She will also follow with her last putter away based on her underlying pulmonary disease process [...] disease) I25.10 Coronary Disease-Associated Arter y/Lesion type: [place] artery Hyperlipidemia, unspecified hyperlipidemia type E78.5 Hyperlipidemia type: unspecified Essential hypertension I10 Hypertension type: essential hypertension Chest pain, unspe cified type R07.9 Chest pain type: unspecified Coding Level of Care Code Off vis,est,level 4 Diagnoses Paroxysmal atrial fibrillation I48.0 CAD (coronary artery disease) I25.10 Coronary Disease-Assoc iated Artery/Lesion type: [place] artery Hyperlipidemia, unspecified hyperlipidemia type E78.5 Hyperlipidemia type: unspecified Essential hypertension I10 Hypertension type: essential hypertension Chest pain, unspecified type R07.9 Chest pain type: unspecified 07/05/17 1123 <Electronically signed by Mike Cota MD> Date Mike washburn MD Cosigner Signature: Date (if applicable) CC: Enrike Jaimes DO 05-Jul-2017 12 Lead EKG performed by [facility] Result: Comments: See Note; NOTES: [facility] [address] [place] [address] 12 Lead EKG performed by [facility] 07/05/17 1033 MR#: [id number] Acct: [id number] Name: LUPE SANDOVAL Rep #: [id number] : 1945 72 From: Mike Cota MD Attending Dr: Mike Cota MD Status: DEP AMB Ordering Dr: Mike Cota MD Date: 07/05/17 Location: [facility] Sex: F C Admitted: BMS/12 Lead EKG performed by [facility] ECG Report Interpretation Sinus Bradycardia -First degree A-V block Poor R wave progressionElectronically signed on 2017 at 11:45 by Mike Cota 07/05/17 1146 Date Mike Cota MD CC: Enrike Jaimes DO Date Dictated: 07/05/171032 Date Transcribed: 07/05/171032 Director Organizational: PM Signed 16-Jun-2017 Pulmonary Visit Report Result: Comments: See Note; NOTES: [facility] [place] [address] [facility] [place] [address] OFFICE VISIT Date of Service: 06/16/17 MR#: [id number] Acct: [id number] Name: LUPE BOOGIE Rep #: [id number] : 1945 Provider: Kirsten Padilla Age/Sex: 72/F Location: [facility] Status: Signed Assessment AND Plan [...] symptoms, rested and overcame the illness w [facility] intervention. She continues to use Advair [...] PO DAILY 06/20/15 [History Confirmed 06/16/17] Ipratropium Regina 0.06% [ATROVENT NASAL SPRAY] 1 spray NASAL [...] BMI 26.0-26.9,adult (Chronic) Atherosclerotic heart disease of [place] coronary artery without angina pectoris (Chronic) Moderate [...] J30.2 Allergic rhinitis trigger: unspe cified 06/16/17 7626 <Electronically signed by Kirsten LOPEZ> Date Kirsten Simer Signature: Date ___ (if applicable) CC: Enrike Jaimes DO 09-Jun-2017 L/S Spine Min 4 Views Result: Comments: See Note; NOTES: [facility] Imaging Services [address] [place] [address] L/S Spine Min 4 Views MR#: [id number] Acct: [id number] Name: LUPE LOPEZ Rep #: [id number] : 1945 F 72 From: Brennan Mike DO PCP: Enrike Jaimes DO Status: REG CLI Study: L/S Spine Min 4 Views Date of Exam: 06/09/17 Exam# [id number] Ordering Dr: Enrike Jaimes DO STUDY: X-RAY [...] Brennan Mike DO at 16:29 EDT Tel [phone], Service support , Fax CC: Enrike Jaimes DO Director Organizational: Signed 09-Jun-2017 Thoracic Spine 3 Views Result: Comments: See Note; NOTES: [facility] Imaging Services [address] [place] [address] Thoracic Spine 3 Views MR#: [id number] Acct: [id number] Name: LUPE LOPEZ Rep #: [id number] : 1945 F 72 From: Jose Antonio Jensen PCP: Enrike Jaimes DO Status: REG CLI Study: Thoracic Spine 3 Views Date of Exam: 06/09/17 Exam# [id number] Ordering Dr: Enrike Jaimes DO STUDY: X-RAY [...] suppo rt , CC: Enrike Jaimes DO Director Organizational: Signed 19-Apr-2017 Brain W/WO Contrast Result: Comments: See Note; NOTES: [facility] Imaging Services [address] [place] [address] Brain W/WO Contrast MR#: [id number] Acct: [id number] Name: LUPE LOPEZ Rep #: [id number] : 1945 F 72 From: Steven Ratliff MD PCP: Enrike Jaimes DO Status: REG CLI Study: Brain W/WO Contrast Date of Exam: 04/19/17 Exam# [id number] Ordering Dr: Enrike Jaimes DO STUDY: MRI [...] Service support , CC: Enrike Jaimes DO Director Organizational: Signed 05-Jan-2017 Hepatobilliary Img w/Pharm Int Result: Comments: See Note; NOTES: [facility] Imaging Services [address] [place] [address] Hepatobilliary Img w/Pharm Int MR#: [id number] Acct: [id number] Name: LUPE LOPEZ Rep # : [id number] : 1945 F 71 From: Dom Sorto DO PCP: Enrike Jaimes DO Status: REG CLI Study: Hepatobilliary Img w/Pharm Int Date of Exam: 01/05/17 Exam# [id number] Ordering Dr: Enrike Jaimes DO CLI NICAL: [...] Service support , CC: Enrike Jaimes DO Director Organizational: Signed 23-Dec-2016 Gallbladder Result: Comments: See Note; NOTES: [facility] Imaging Services [address] [place] [address] Gallbladder MR#: [id number] Acct: [id number] Name: LUPE LOPEZ Rep #: [id number] : F 71 From: Terri Dash MD PCP: Enrike Jaimes DO Status: REG CLI Study: Gallbladder Date of Exam: 12/23/16 Exam# [id number] Ordering Dr: Enrike Jaimes DO US Gallbladder [...] Service support , CC: Enrike Jaimes DO Director Organizational: Signed 19-Nov-2016 SCREENING MAMM (CAD), BILAT Result: Comments: See Note; NOTES: [facility] Imaging Services [address] [place] [address] SCREENING MAMM (CAD), BILAT MR#: [id number] Acct: [id number] Name: LUPE LOPEZ Rep #: [id number] : 1945 F 71 From: Johnny Gilman MD PCP: Enrike Jaimes DO Status: REG CLI Study: SCREENING MAMM (CAD), BILAT Date of Exam: 11/19/16 Exam# [id number] Ordering Dr: Enrike Jaimes DO MAMM OGRAPHY [...] Johnny Gilman MD at 11:14 EDT Tel [phone], Service support , CC: Enrike Jaimes DO Director Organizational: Signed 17-Nov-2016 6 Minute Walk Test Result: Comments: See Note; NOTES: [facility] Pulmonary Services/Neurology [address] [place] [address] MR#: [id number] Acct: [id number] Name: LUPE LOPEZ Rep #: [id number] : 04/14/1944 71 From: Merlin Pop MD Referring Dr: Kirsten Padilla ARMATURE CONNECTOR Date: Ordering Dr: Sex: F C Location: PSN PSN 6 Minute Walk Test - 6 Minute Walk Test 6 Minute Walk Test: 6 Minute Walk Test PS N:6-Minute Walk Test Start: 11/17/16 11:09 Freq: Status: Active Document 11/17/16 11:00 HG (Rec: 11/17/16 11:11 HG [id number]) 6 Minute Walk Test Date Performed 11/17/16 [...] CC: Date Dictated: 11/17/161548 Date Transcribed: 11/17/161548 Director Organizational: Merlin Pop Signed 12-Nov-2016 Pulmonary Function Report Comp Result: Comments: See Note; NOTES: [facility] Pulmonary Services/Neurology [address] [place] [address] MR#: [id number] Acct: [id number] Name: LUPE LOPEZ Rep #: [id number] : 71 From: Merlin Pop MD Referring Dr: Kirsten Padilla ARMATURE CONNECTOR Status: REG CLI Ordering Dr: Date: Location: [facility] Sex: F C COMPLETE PULMONARY FUNCTION TEST INTERPRETATION Brief HPI: Patient is a 71 year old female, currently under the care of myself, who presents to [facility] for complete pulmonary function tests secondary [...] Date Dictated: 11/12/16 1533 Date Transcribed: 11/12/161532 Director Organizational: EDENILSON Signed 06-Oct-2016 Chest without Contrast Result: Comments: See Note; NOTES: [facility] Imaging Services [address] [place] [address] Verdana 4d Chest without Contrast MR#: [id number] Acct: [id number] Name: LUPE LOPEZ p #: [id number] : 1945 F 71 From: Sonam Hendricks MD PCP: Enrike Jaimes DO Status: REG CLI Study: Chest without Contrast Date of Exam: 10/06/16 Exam# [id number] Ordering Dr: Enrike Jaimes DO STUDY: CT [...] Sonam Hendricks MD at 23:59 EDT Tel [phone], Service support , CC: Enrike Jaimes DO Director Organizational: Signed 29-Sep-2016 Dexa Bone Density Study (HP) Result: Comments: See Note; NOTES: [facility] Imaging Services [address] [place] [address] Verdana 4d Dexa Bone Density Study (HP) MR#: [id number] Acct: [id number] Name: BRAYDON LOPEZ Rep #: [id number] : 1945 F 71 From: Johnny Gilman MD PCP: Enrike Jaimes DO Status: [facility] CLI Study: Dexa Bone Density Study (HP) Date of Exam: 09/29/16 Exam# [id number] Ordering Dr: Szymanski DO STUDY: DUAL ENERGY [...] Johnny Gilman MD at 9:38 EDT Tel [phone], Service support , CC: Enrike Jaimes DO Director Organizational: Signed 19-Sep-2016 Carotid Duplex Ultrasound Result: Comments: See Note; NOTES: [facility] Cardiovascular Services [address] [place] [address] Carotid Duplex Ultrasound 09/18/16 1406 MR#: [id number] Acct: [id number] Name: LUPE BOOGIE Rep #: [id number] : 1945 71 From: Brice Murphy MD Attending Dr: Enrike Jaimes DO Status: REG CLI Ordering Dr: Enrike Jaimes DO Date: 09/18/16 Location: [facility] Sex: F C Admitted: Reason For [...] the left vertebral artery. Procedure Carotid Duplex 80589. The exam was diagnostic. Exam performed in [facility]. Interpretation Summary Mild (<50%) stenosis right extracranial [...] Date Dictated: 09/18/16 1406 Date Transcribed: 09/19/16943 Director Organizational: Signed 16-Sep-2016 PT D/C Summary (1) Result: Comments: See Note; NOTES: [facility] [place] [address] Fax REHABILITATION SERVICES DISCHAR GE SUMMARY MR#: [id number] Acct: [id number] Name: LUPE LOPEZ Rep #: [id number] [...] please feel free to call me at [phone]. Thank you for the referral of this patient. Sincerely, Shanon Ferrara <Electronically signed by Shanon Ferrara MPT> 09/16/16 1054 CC: Enrike Jaimes DO Signed 26-Aug-2016 Re-Evaluation - PT (1) Result: Comments: See Note; NOTES: [facility] [address] [place] [address]. [address] [place] [address] Fax REEVALUATION / MEDICARE RECERTI KALEN Juanito 4d PHYSICAL THERAPY MR#: [id number] Acct: [id number] Name: LUPE LOPEZ Rep #: [id number] : 1945 71 From: Shanon Ferrara MPT Referring DrBrooke: Enrike Jaimes DO Status: REG RCR Insu eirka: [employer] MEDIC[employer] PPO Enrike Jaimes DO, It [...] do not hesitate to contact me at [phone] by phone or if you have questions or concerns reg arding this new plan of care! Sincerely, Shanon Ferrara <Electronically signed by Shanon Ferrara MPT> 08/26/16 1824 CC: Enrike Jaimes DO Signed For Medic are only, by signing this I certify the plan of care. Physicians Signature Date 28-Jul-2016 Inital Evaluation (1) - PT Result: Comments: See Note; NOTES: [facility] [place], [place] [address] Fax REHABILITATION SERVICES INITIAL EVALUATION MR#: [id number] Acct: [id number] Name: LUPE LOPEZ Rep #: [id number] [...] to be FAXED BACK to us at [phone] for Medicare purposes. Please let me know if there are questions or reza rns regarding this plan of care. Physician Signature: Date: <Electronically signed by Shanon Ferrara MPT> 07/28/16 1629 CC: Enrike Jaimes DO Signed For Medicare only, by signing this I certify the plan of care. Physicians Signature Date 08-Jul-2016 Oncology Progress Note Result: Comments: See Note; NOTES: [facility] Medical Records Department [address] [place] [address] Oncology Progress Note MR#: [id number] Acct: [id number] Name: LUPE LOPEZ Rep #: [id number] : 1945 71 From: Red Spaulding MD [...] folate. Red Spaulding MD T: NTS JOB: [id number] 07/08/16 1043 <Electronically signed by Red Spaulding MD> Date Red Spaulding MD Cosigner Signature (If Indicated): Date CC: Date Dictated: 06/20 Date Transcribed: 06/30/162251 Director Organizational: Signed 21-Feb-2016 Chest without Contrast Result: Comments: See Note; NOTES: [facility] Imaging Services [address] [place] [address] Verdana 4d Chest without Contrast MR#: [id number] Acct: [id number] Name: LUPE LOPEZ p #: [id number] : 1945 F 71 From: Barrett Small MD PCP: Enrike Jaimes DO Status: REG CLI Study: Chest without Contrast Date of Exam: 02/21/16 Exam# [id number] Ordering Dr: Enrike Jaimes DO STUDY : [...] MD at 2:43 EST , Service support [phone], CC: Enrike Jaimes DO Director Organizational: Signed 08-Dec-2015 Pulmonary Function Report Comp Result: Comments: See Note; NOTES: [facility] Pulmonary Services/Neurology [facility] [place] [address] Pulmonary Function Test (Comp) MR#: [id number] Acct: [id number] Name: Evelia LOPEZ Rep #: [id number] : 1945 70 From: Merlin Pop MD Referring Dr: Kirsten Padilla ARMATURE CONNECTOR Status: REG CLI Ordering Dr: Kirsten Padilla ARMATURE CONNECTOR-C Date: 12/06/15 Location: [facility] Sex: F C DATE OF S VICE: [...] patient's primary care physician T: NTS JOB: [id number] 12/08/15 0651 <Electronically signed by Merlin Pop MD> Date __ Merlin Pop MD CC: Merlin Pop MD; Kirsten Padilla; Enrike Jaimes DO Date Dictated: 12/07/15 1235 Date Transcribed: 12/07/15 1235 Director Organizational: Signed 19-Nov-2015 Bilat Scrn Digital AND CAD Result: Comments: See Note; NOTES: [facility] Imaging Services [address] [place] [address] Verdana 4d Bilat Scrn Digital AND CAD MR#: [id number] Acct: [id number] Name: DYLAN LOPEZ Rep #: [id number] : 1945 F 70 From: Johnny Gilman MD PCP: Enrike Jaimes DO Status: REG CLI Study: Bilat Scrn Digital AND CAD Date of Exam: 11/19/15 Exam# [id number] Ordering Dr: Enrike Jaimes DO MAMMOGRAPHY - [...] delay biopsy of a clinically suspicious abnormality. [id number] Electronically Signed: Johnny Gilman MD at 8:15 ED T Tel [phone], Service support [phone], CC: Enrike Jaimes DO Director Organizational: Signed 07-Oct-2015 Knee 4 or More Views Result: Comments: See Note; NOTES: [facility] Imaging Services [address] [place] [address] 120[address] Verda 4d Knee 4 or More Views MR#: [id number] Acct: [id number] Name: LUPE LOPEZ Rep #: [id number] : 1945 F 70 From: Johnny Gilman MD PCP: Enrike Jaimes DO Status: REG CLI Study: Knee 4 or More Views Date of Exam: 10/07/15 Exam# [id number] Ordering Dr: Yamileth Jaimes DO STUDY: X-RAY [...] Johnny Gilman MD at 13:02 EDT Tel [phone], Service support [phone], RAD/Knee 4 or More Views IMPRESSION: Minimal joint effusion. Electronically Signed: Johnny Gilman MD at 13:02 EDT Tel [phone], Service support [phone], CC: Enrike Jaimes DO Director Organizational: Signed 27-Aug-2015 PT D/C Summary (1) Result: Comments: See Note; NOTES: [facility] [address] [place] [address]. [address] [place], [place] [address] Fax REHABILITATION RVICES DISCHARGE SUMMARY MR#: [id number] Acct: [id number] Name: LUPE LOPEZ Rep #: [id number] : 1945 70 From: Domenic Ayala PT, Cert. MDT Referring DrBrooke: Enrike Jaimes DO Status: REG R CR Insurance: [employer] MEDICARE [facility] - PT D/C Summary It has [...] feel free to c all me at [phone]. Thank you for the referral of this patient. Sincerely, Domenic Ayala <Electronically signed by Domenic Ayala PT, Cert. JCT> 08/27/15 1406 CC: Enrike Jaimes DO Signed -Jul-2015 Inital Evaluation (1) - PT Result: Comments: See Note; NOTES: [facility] [address] [place] [address]. [address] [place] [address] Fax REHABILITATION SE RVICES INITIAL EVALUATION MR#: [id number] Acct: [id number] Name: LUPE LOPEZ Rep #: [id number] : 1945 70 From: Domenic Ayala PT, [...] to be FAXED BACK to us at [phone] for Medicare purposes. Please let me know [...] 5 Views Result: Comments: See Note; NOTES: [facility] Imaging Services [address] [place] [address] Verdana 4d Cerv Spine 4 or 5 Views MR#: [id number] Acct: [id number] Name: LUPE MCCARTHY Rep #: [id number] : 1945 F 70 From: Vu Hankins MD PCP: Enrike Jaimes DO Status: REG CLI Study: Cerv Spine 4 or 5 Views Date of Exam: 07/30/15 Exam# [id number] Ordering Dr: Szymanski DO STUDY: X-RAY - [...] MD at 17:12 EDT , Service support [phone], RAD/Cerv Spine 4 or 5 Views IMPRESSION: Diffuse oste openia with moderate cervical spondylosis. Electronically Signed: uV Hankins MD at 17:12 EDT , Service support [phone], CC: Enrike Jaimes DO Director Organizational: Signed 30-Jul-2015 Shoulder min 2 Views Result: Comments: See Note; NOTES: [facility] Imaging Services [address] [place] [address] Verdana 4d Shoulder min 2 Views MR#: [id number] Acct: [id number] Name: LUPE LOPEZ Rep #: [id number] : 1945 F 70 From: Vu Hankins MD PCP: Enrike Jaimes DO Status: REG CLI Study: Shoulder min 2 Views Date of Exam: 07/30/15 Exam# [id number] Ordering Dr: Enrike Jaimes DO STUDY: X-RAY [...] at 17:12 EDT Tel , Service support [phone], RAD/Shoulder min 2 Views IMPRESSION: Normal x-ray examination of the shoulder. Electronically Signed: Vu Hankins MD 07/29 at 17:12 EDT , Service support [phone], CC: Enrike Jaimes DO Director Organizational: Signed 02-Jul-2015 Chest PA and Lateral Result: Comments: See Note; NOTES: [facility] Imaging Services [address] [place] [address] Verdana 4d Chest PA and Lateral MR#: [id number] Acct: [id number] Name: LUPE LOPEZ Rep #: [id number] : 1945 F 70 From: Johnny Gilman MD PCP: Enrike Jaimes DO Status: REG CLI Study: Chest PA and Lateral Date of Exam: 07/02/15 Exam# [id number] Ordering Dr: Yamileth Jaimes DO STUDY: X-RAY [...] Johnny Gilman MD at 11:24 EDT Tel [phone], Service support [phone], RAD/Chest PA and Lateral IMPRESSION: The previously seen right upper lobe infiltrate rome s resolved. No acute abnormality is seen at this time. Electronically Signed: Johnny Gilman MD at 11:24 EDT Tel [phone], Service support [phone], CC: Enrike Jaimes DO Director Organizational: Signed 02-Jul-2015 ELECTROCARDIOGRAM, COMPLETE (ECG) (98166) Comments: ekg showed normal sinus rhythym, normal axis, no acute st/t wave changes sinus maggie Result: [MEASUREMENTS ANALYSIS] Date of Test: 07/02/2015 10:18:39; Heart Rate: 56; CO Interval: 222; QRS: 100; QT Interval: 448; Corrected QT Interval (QTc): 441; P Wave [place]: 90; QRS Wave [place]: 6; T Wave [place]: 18; Blood Pressure: 156/64 [ECG DIAGNOSTIC STATEMENTS] Date of Test: 07/02/2015 10:18:39; Summary: Sinus Bradycardia -First degree A-V block Tessy = 222BORDERLINE RHYTHM 02-Jul-2015 Spirometry (49975) Comments: good effort and curve normal Result: 24-Jun-2015 Venous Duplex Lower Extremity Result: Comments: See Note; NOTES: [facility] Cardiovascular Services [address] [place] [address] Venous Duplex US - Ibrahima Extrem 06/24/15 1102 MR#: [id number] Acct: [id number] Name: LUPE LOPEZ Rep #: [id number] : 1945 70 From: Brice Murphy MD [...] Dictated: 06/24/15 1102 Date Transcribed: 06/24/15 1908 Director Organizational: Signed 20-Jun-2015 CTA Chest W/WO Contrast Result: Comments: See Note; NOTES: [facility] Imaging Services [address] [place] [address] Verdana 4d CTA Chest W/WO Contrast MR#: [id number] Acct: [id number] Name: LUPE MCCARTHY Rep #: [id number] : 1945 F 70 From: Johnny Gilman MD PCP: Enrike Jaimes DO Status: REG ER Study: CTA Chest W/WO Contrast Date of Exam: 06/20/15 Exam# [id number] Ordering Dr: Sonam Colon MD STUDY: CTA [...] Johnny Gilman MD at 15:25 EDT Tel [phone], Service support , CC: Enrike Jaimes DO; Sonam Sheth MD Director Organizational: Signed 20-Jun-2015 Chest 1 View (Portable) Result: Comments: See Note; NOTES: [facility] Imaging Services [address] [place] [address] Verda 4d Chest 1 View (Portable) MR#: [id number] Acct: [id number] Name: LUPE MCCARTHY Rep #: [id number] : 1945 F 70 From: Johnny Gilman MD PCP: Enrike Jaimes DO Status: REG ER Study: Chest 1 View (Portable) Date of Exam: 06/20/15 Exam# [id number] Ordering Dr: Sonam Colon MD STUDY: X-RAY [...] Johnny Gilman MD at 13:07 EDT Tel [phone], Se rvice support [phone], RAD/Chest 1 View (Portable) IMPRESSION: Focal infiltration in the right upper lobe. Electronically Signed: Johnny Gilman MD at 13:07 EDT Tel [phone], Service support [phone], CC: Enrike Jaimes DO; Sonam Sheth MD Director Organizational: Signed 20-Jun-2015 ELECTROCARDIOGRAM, COMPLETE (ECG) (03718) Result: [MEASUREMENTS ANALYSIS] Date of Test: 06/20/2015 10:36:19; Heart Rate: 61; CO Interval: 216; QRS: 100; QT Interval: 426; Corrected QT Interval (QTc): 427; P Wave [place]: 62; QRS Wave [place]: 8; T Wave [place]: 28; Blood Pressure: 160/62 [ECG DIAGNOSTIC STATEMENTS] Date of Test: 06/20/2015 10:36:19; Summary: Sinus Rhythm WITHIN NORMAL LIMITS 15-Jun-2015 Echocardiogram Complete Result: Comments: See Note; NOTES: [facility] Cardiovascular Services [address] [place] [address] Echo Complete 06/12/15 1110 MR#: [id number] Acct: [id number] Name: LUPE PHILLIPS Rep #: [id number] : 1945 70 From: Mike Cota MD Attending Dr: Mike Cota MD Status: PRE CLI Ordering Dr: Mike Cota MD Date: 06/12/15 Location: [facility] Sex: F C Admit benjamin: Reason For Study: CAD/ASHD Procedure This was a 2D Doppler, Color Flow transthoracic echocardiogram. The exam was of adequate technical quality. Exam performed in department. PT did NOT take am HTN med, will take as soon as she gets home and monitor her BP this afternoon. Instructed to call [facility] if systolic BP does not [...] Dictated: 06/12/15 1110 Date Transcribed: 06/15/15 1226 Director Organizational: Signed 13-Jun-2015 History and Physical Exam Result: Comments: See Note; NOTES: [facility] Medical Records Department [address] [place] [address] History and Physical 06/13/15 1251 MR#: [id number] Acct: [id number] Name: LUPE LOPEZ Rep #: [id number] : 1945 70 From: Jess Sparrow MD [...] surgery. 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 Lives: Spouse/ Significant Other Smoking Status: [...] % (Auto) 51.1 Lymph % (Auto) 33.9 Bureau % (Auto) 11.5 H Eos % (Auto) [...] View (Portable) Result: Comments: See Note; NOTES: [facility] Imaging Services [address] [place] [address] Verdana 4d Chest 1 View (Portable) MR#: [id number] Acct: [id number] Name: LUPE MCCARTHY Rep #: [id number] : 1945 F 70 From: Vu Hankins MD PCP: Enrike Jaimes DO Status: REG ER Study: Chest 1 View (Portable) Date of Exam: 06/13/15 Exam# [id number] Ordering Dr: Jessie Ogden MD STUDY: X-RAY [...] MD at 10:55 EDT , Service support [phone], RAD/Chest 1 View (Port able) IMPRESSION: Cardiomegaly with mild hyperexpansion. No acute or active cardiopulmonary disease. Electronically Signed: Vu Hankins MD at 10:55 EDT , Service sup port [phone], CC: Enrike Jaimes DO; Kane Ogden MD Director Organizational: Signed 13-Jun-2015 CTA Chest W/WO Contrast Result: Comments: See Note; NOTES: [facility] Imaging Services [address] [place] [address] Verdana 4d CTA Chest W/WO Contrast MR#: [id number] Acct: [id number] Name: LUPE MCCARTHY Rep #: [id number] : 1945 F 70 From: Johnny Gilman MD PCP: Enrike Jaimes DO Status: REG ER Study: CTA Chest W/WO Contrast Date of Exam: 06/13/15 Exam# [id number] Ordering Dr: Kane Lujan MD STUDY: CTA [...] verbally conveyed by Johnny Gilman MD to [facility] ED RN, on 06/13/2015 12:08:48 (ET). Electronically Signed: Johnny Gilman MD at 12:08 EDT Tel [phone], Service support [phone], N.B. : The above information has been verbally conveyed by Johnny Gilman MD to [facility] ED RN, on 06/13/2015 12:08:48 (ET). CC: Favio Jaimes DO; Kane Ogden MD Director Organizational: Signed 13-Jun-2015 EKG (25147) Comments: nsr no acute chg Result: [MEASUREMENTS ANALYSIS] Date of Test: 06/13/2015 09:41:07; Heart Rate: 71; CO Interval: 194; QRS: 96; QT Interval: 420; Corrected QT Interval (QTc): 439; P Wave [place]: 68; QRS Wave [place]: 2; T Wave [place]: 29; Blood Pressure: 140/70 [ECG DIAGNOSTIC STATEMENTS] Date of Test: 06/13/2015 09:41:07; Summary: Sinus Rhythm WITHIN NORMAL LIMITS 23-May-2015 Carotid Duplex Ultrasound Result: Comments: See Note; NOTES: [facility] Cardiovascular Services [address] [place] [address] Carotid Duplex Ultrasound 05/23/15813 MR#: [id number] Acct: [id number] Name: LUPE LOPEZ Rep #: [id number] : 1945 70 From: Brice Murphy MD [...] the left vertebral artery. Procedure Carotid Duplex 28386. The exam was diagnostic. Exam performed in [...] Date Dictated: 05/23/1514 Date Transcribed: 05/23/15 233 Director Organizational: Signed 23-May-2015 Nuclear Stress Test - Treadmil Result: Comments: See Note; NOTES: [facility] Imaging Services [address] [place] [address] Verda 4d Nuclear Stress Test - Treadmil MR#: [id number] Acct: [id number] N ruel: LUPE LOPEZ Rep #: [id number] : 1945 70 From: Mike Cota MD [...] LVEF of 72%. Mike Cota MD T: [facility] JOB: [id number] 05/23/152009 <Electronically signed by Mike Cota MD> Date Mike Cota MD CC: Enrike Jaimes DO Date Dictated: 05/23/15 1023 Date Transcribed: 05/23/15 1023 Director Organizational: Signed 20-May-2015 ELECTROCARDIOGRAM, COMPLETE (ECG) (23555) Comments: ekg showed normal sinus rhythym, normal axis, no acute st/t wave changes Result: [MEASUREMENTS ANALYSIS] Date of Test: 05/20/2015 11:04:03; Heart Rate: 63; CO Interval: 210; QRS: 99; QT Interval: 408; Corrected QT Interval (QTc): 413; P Wave [place]: 56; QRS Wave [place]: 10; T Wave [place]: 27; Blood Pressure: 152/76 [ECG DIAGNOSTIC STATEMENTS] Date of Test: 05/20/2015 11:04:03; Summary: Sinus Rhythm WITHIN NORMAL LIMITS 11-Apr-2015 12 Lead Electrocardiogram Result: Comments: See Note; NOTES: [facility] Cardiovascular Services [address] [place] [address]68 12 Lead EKG 03/28/15 1548 MR#: [id number] Acct: [id number] Name: LUPE BOOGIE Rep #: [id number] : 1945 70 From: Mike Cota MD [...] Normal ECG Confirmed by CIPRIANO JC, MIKE ([id number]), editor city TERRI DIOP ([id number]) on 04/11/2015 2:14:19 PM Referred By: CHRISTOPHER Confirmed By:MIKE COTA MD 04/11/15 141 4 Date Mike Cota MD CC: Enrike Jaimes DO Date Dictated: 03/28/15 1548 Date Transcribed: 03/28/15 1548 Director Organizational: Signed 25-Dec-2014 Pulmonary Function Report Comp Result: Comments: See Note; NOTES: [facility] Pulmonary Services/Neurology [address] [place] [address] Pulmonary Function Test (Comp) MR#: [id number] Acct: [id number] Name: LUPE PHILLIPS Rep #: [id number] : 1945 69 From: Merlin Pop MD Referring Dr: Merlin Pop MD Status: REG CLI Ordering Dr: Merlin Pop MD Date: 11/27/14 Location: [facility] Sex: F C DATE OF SERVICE: 11/27/2014 [...] and lung volumes. MERLIN POP MD T: [facility] JOB: [id number] . Date: 11/28/14 Tech.: Temp: PBar: Height(in.): Weight(lbs.): Diagnosis: Medication: : Dyspnea Rest: Dyspnea Exercise: Cough: Productive (cc): Persistent: Smoker: How Long (pk/yrs): Stopped (yrs): Cigarettes: Cigars: 1 1438 <Electronically signed by Merlin Pop MD> Date Merlin Pop MD CC: Merlin Pop MD; Enrike Jaimes DO Date Dictated: 11/03 Date Transcribed: 11/27/141628 Director Organizational: Signed 23-Oct-2014 PT Discharge Summary Result: Comments: See Note; NOTES: [facility] [address] [place] [address]. [address] [place] [address] Fax REHABILITATION SERVICES DISCHARGE SUMMARY MR#: [id number] Acct: [id number] Name: LUPE LOPEZ Rep #: [id number] : 1945 69 From: Barbie Mcguire Referring [...] Sneakers. Barbie Mcguire DPT T: [facility] JOB: [id number] <Electronically signed by Monika Mcguire > 10/23/14 1021 CC: Signed 23-Oct-2014 Chest WITH Contrast Result: Comments: See Note; NOTES: [facility] Imaging Services [address] [place] [address] CAT Scan Report MR#: [id number] Acct: [id number] Name: LUPE LOPEZ Rep #: [id number] : 1945 F 69 From: Johnny Gilman MD PCP: Enrike Jaimes DO Status: REG CLI Study: Chest WITH Contrast Date of Exam: 10/23/14 Exam# [id number] Ordering Dr: Merlin Pop MD STUDY: CT [...] Johnny Gilman MD at 14:28 EDT Tel [phone], Service support [phone], Fax CC: Merlin Pop MD; Enrike Jaimes DO Director Organizational: Signed 02-Oct-2014 Bilat Screvelia Digital AND CAD Result: Comments: See Note; NOTES: [facility] Imaging Services [address] [place] [address] Breast Imaging Report MR#: [id number] Acct: [id number] Name: LUPE LOPEZ Rep #: [id number] : 1945 F 69 From: Johnny Gilman MD PCP: Enrike Jaimes DO Status: REG CLI Study: Bilat Scrn Digital AND CAD Date of Exam: 10/02/14 Exam# [id number] Ordering Dr: Enrike Jaimes DO MAMMOGRAPHY - [...] [facility]. Approximately 10% of breast cancers are not detected by mammography. A normal mammogram should not delay biopsy of a clinically suspicious abnormality. Electronically Signed: Isma Gilman MD at 12:54 EDT Tel [phone], Service support [phone], CC: Enrike Jaimes DO Director Organizational: Signed 27-Sep-2014 Inital Evaluation - PT Result: Comments: See Note; NOTES: [facility]. [address] [place] [address] Fax REHABILITATION SERVICES INITIAL EVALUATION MR#: [id number] Acct: [id number] Name: LUPE LOPEZ Rep #: [id number] : 1945 69 From: Barbie Mcguire Referring [...] no stent that she does see a floor tech. MEDICATIONS: The patient has a list if [...] is fair. The patient will benefit from [facility] physical therapy to solve the following [...] pain. Barbie Mcguire DPT T: [facility] JOB: [id number] <Electronically signed by Barbie Mcguire > 09/27/14 0823 CC: Signed For Medicare only, by signing this I certify the plan of care. Physicians Signature Date 14-Jun-2014 Knee 4 or More Views Result: Comments: See Note; NOTES: [facility] Imaging Services [address] [place] [address] Radiology Report MR#: [id number] Acct: [id number] Name: LUPE LOPEZ Rep #: [id number] : 1945 F 69 From: Frank Sewell MD PCP: Enrike Jaimes DO Status: REG CLI Study: Knee 4 or More Views Date of Exam: 06/14/14 Exam# [id number] Ordering Dr: Enrike Jaimes DO STUDY: X-R [...] at 7:48 EDT Tel , Service support [phone], CC: Enrike Jaimes DO Director Organizational: Signed 14-Jun-2014 Knee 4 or More Views Result: Comments: See Note; NOTES: [facility] Imaging Services [address] [place] [address] Radiology Report MR#: [id number] Acct: [id number] Name: LUPE LOPEZ Rep #: [id number] : 1945 F 69 From: Frank Sewell MD PCP: Enrike Jaimes DO Status: REG CLI Study: Knee 4 or More Views Date of Exam: 06/14/14 Exam# [id number] Ordering Dr: Enrike Jaimes DO STUDY: X-R [...] at 7:50 EDT Tel , Service support [phone], RAD/Knee 4 or More Views IMPRESSION: Mild relative narrowing of the medial co mpartment joint space left knee. Generalized osteopenia. Electronically Signed: Ming Sewell MD at 7:50 EDT Tel , Service support [phone], CC: Enrike Jaimes DO Director Organizational: Signed 16-May-2014 Carotid Duplex Ultrasound Result: Comments: See Note; NOTES: [facility] Cardiovascular Services [address] [place] [address] 05/03/14 1014 MR#: [id number] Acct: [id number] Name: LUPE LOPEZ Rep #: [id number] [...] left ve rtebral artery. Procedure Carotid Duplex 79351. The exam was diagnostic. Exam performed in department. Interpretation Summary Mild (<50%) stenosis right extracranial internal carotid. Mild (<50%) stenosis left extracranial internal carotid. Flow within the vertebral arteries is antegrade bilaterally. ___ Ordering Physician: Enrike Jaimes D.O. Performed By: Rufino Ashley, RVT 05/03/14 1107 Date ____ Brice Murphy MD CC: Enrike Jaimes DO Date Dictated: 05/03/14 1014 Date Transcribed: 05/03/14 1107 Director Organizational: Signed 23-Apr-2014 [facility] ([address]) Comments: good effort and curve normal Result: 17-Apr-2014 Brain/Head W/WO Contrast Result: Comments: See Note; NOTES: [facility] Imaging Services [address] [place] [address] CAT Scan Report MR#: [id number] Acct: [id number] Name: LUPE LOPEZ Rep #: [id number] : 1945 F 69 From: Johnny Gilman MD PCP: Enrike Jaimes DO Status: REG CLI Study: Brain/Head W/WO Contrast Date of Exam: 04/17/14 Exam# [id number] Ordering Dr: Enrike Jaimes DO STUDY: CT [...] Johnny Gilman MD at 15:01 EST Tel [phone], Service support [phone], CC: Enrike Jaimes DO Director Organizational: Signed 17-Apr-2014 CTA Chest W/WO Contrast Result: Comments: See Note; NOTES: [facility] Imaging Services [address] [place] [address] CAT Scan Report MR#: [id number] Acct: [id number] Name: LUPE LOPEZ Rep #: [id number] : 1945 F 69 From: Johnny Gilman MD PCP: Enrike Jaimes DO Status: REG CLI Study: CTA Chest W/WO Contrast Date of Exam: 04/17/14 Exam# [id number] Ordering Dr: Enrike Jaimes DO STUDY: C [...] Johnny Gilman MD at 14:38 EST Tel [phone], Service support [phone], CC: Enrike Jaimes DO Director Organizational: Signed Immunization Name Dates Details Influenza vaccine, split, 3yrs &>, IM (FLUZONE) on: Nov-2017 Influenza, preserv. 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 [place], [place], [address] Absolute Lymph 1.48 {X10_3/ul} (Normal) Range: 0.83-4.51 [...] Range: 4.4-11.0 :15 Comprehensive Metabolic Profil Comments: [facility] [address] [place], [place], [address] GAP 7 (Normal) Range: 5-15 CO2 29.0 [...] Comments: Please note revised GLUCOSE reference range gdjvznrra54/02/2018. 40-Kih-57831:15 Hemoglobin A1c Comments: [facility] [address] [place], [place], [address] HGB A1C 5.5 % (Normal) Range: 4.2-6.3 :15 Lipid Profile Comments: [facility] [address] [place], [place], [address] VLDL 16 mg/dL (Normal) Range: 5-40 LDL [...] 200-240 mg/dL Borderline >240 mg/dL High Risk 72-Eiu-66767:15 Thyroid Stim Hormone (TSH) Comments: [facility] [address] [facility] [place], [place], [address] TSH 4.30 {uIU/mL} (Abnormal) Range: 0.358-3.74 4-Smy-797821:25 Stool Occult Blood iFOB Comments: [facility] [address] [place], [place], [address] STOB See Note (Normal) Comments: Reason for Laboratory Test . STOB iFOBOccult Blood Negative 21-Cpu-138990:07 CBC W/Diff, Automated Comments: Reason for Laboratory Test .[facility] [address] [place], [place], [address] Absolute Lymph 1.23 {X10_3/ul} (Normal) Range: 0.83-4.51 [...] 4.2-5.4 WBC 3.4 K/mm3 (Abnormal) Range: 4.4-11.0 23-Ijk-808073:07 Comprehensive Metabolic Profil Comments: Reason for Laboratory Test .[facility] [address] [place], [place], [address] GAP 7 (Normal) Range: 5-15 CO2 29.0 [...] Comments: Please note revised GLUCOSE reference range sgwlyhmrh21/02/2018. 92-Vck-761404:07 Ferritin Comments: Reason for Laboratory Test .[facility] [address] [place], [place], [address] FERRITIN 26 ng/mL (Normal) Range: 8-252 14-Fcg-265902:07 Iron+Iron Binding Capacity Comments: Reason for Laboratory Test .[facility] [address] [place], [place], [address] IRON SATURATION 17.0 % (Normal) Range: 15.0-55.0 IRON 56 ug/dL (Normal) Range: 50-170 TIBC 329 ug/dL (Normal) Range: 250-450 76-Zxd-896357:47 CBC W/Diff, Automated Comments: [facility] [address] [place], [place], [address] Absolute Lymph 1.23 {X10_3/ul} (Normal) Range: 0.83-4.51 [...] 4.2-5.4 WBC 4.8 K/mm3 (Normal) Range: 4.4-11.0 14-Udu-420143:47 Comprehensive Metabolic Profil Comments: [facility] [address] [place], [address] GAP 9 (Normal) Range: 5-15 CO2 25.0 [...] Comments: Please note revised GLUCOSE reference range abjnzbzgu50/02/2018. 41-Geu-751891:47 Hemoglobin A1c Comments: [facility] [address] [place], [address] HGB A1C 5.5 % (Normal) Range: 4.2-6.3 99-Gwh-546897:47 Lipid Profile Comments: [facility] [address] [place], [address] VLDL 18 mg/dL (Normal) Range: 5-40 LDL [...] 200-240 mg/dL Borderline >240 mg/dL High Risk 87-Uwb-353242:47 Thyroid Stim Hormone (TSH) Comments: [facility] Qqjdvguoky[address]. [place], [id number] TSH 4.65 {uIU/mL} (Abnormal) Range: 0.358-3.74 41-Vxp-106605:32 Thyroid Stim Hormone (TSH) Comments: [facility] Kcdbruhazn5643 [address]. [place], [place], [address] TSH 2.85 {uIU/mL} (Normal) Range: 0.358-3.74 44-Yxe-71995:27 Microscopic Examination Comments: PATIENT WAS FASTINGPERFORMED BY: [facility] Bxesgm7557 [facility] [id number] Bacteria Few (Normal) Mucus Threads Present (Normal) Cast Type Hyaline casts (Normal) Casts Present {/lpf} (Abnormal) Epithelial Cells (non renal) 0-10 {/hpf} (Normal) Range: 0 - 10 RBC 0-2 {/hpf} (Normal) Range: 0 - 2 WBC 0-5 {/hpf} (Normal) Range: 0 - 5 :49 CBC W/Diff, Automated Comments: Reason for Laboratory Test [facility] Wukufvjunb[address] [place], [place], [address] Absolute Lymph 1.48 {X10_3/ul} (Normal) Range: 0.83-4.51 [...] Metabolic Profil Comments: Reason for Laboratory Test [facility] Lhpahcepbk7751 [place], [address] GAP 5 (Normal) Range: 5-15 [...] Comments: Please note revised GLUCOSE reference range bhzlcxnsa02/02/2018. 20-Jul-20178:49 Ferritin Comments: [facility] Bksaozkxru2912 [place], [address] FERRITIN 29 ng/mL (Normal) Range: 8-252 20-Jul-20178:49 Iron Comments: Reason for Laboratory Test [facility] Evsiegvmfh4109 [place], [address] IRON 55 ug/dL (Normal) Range: 50-170 :32 Lipid Profile Comments: [facility] Veigxdrhsc1530 [address] [place], [place], [address] VLDL 18 mg/dL (Normal) Range: 5-40 LDL [...] mg/dL High Risk :32 Liver Profile Comments: [facility] Rixuhuxkhg7054 [place], [address] D BILI 0.09 mg/dL (Normal) Range: 0.00-0.30 T BILI 0.50 mg/dL (Normal) Range: 0.20-1.00 ALT 14 U/L (Normal) Range: 13-56 ALK P 55 U/L (Normal) Range: 45-117 AST 19 U/L (Normal) Range: 15-37 GLOB 3.0 g/dL (Normal) Range: 2.2-4.2 ALB 3.7 g/dL (Normal) Range: 3.2-5.0 T PROT 6.7 g/dL (Normal) Range: 6.4-8.2 :32 Thyroid Stim Hormone (TSH) Comments: [facility] Naappqpttf1078 [place], [address] TSH 5.71 {uIU/mL} (Abnormal) Range: 0.358-3.74 :27 SED RATE ERYTHROCYTE (26203) Comments: PATIENT WAS FASTINGPERFORMED BY: [facility]CoAtl[facility] CampusOdsjoj5147 [facility] [id number] Sedimentation Rate-Westergren 8 mm/h (Normal) Range: 0-40 :27 C-REACTIVE PROTEIN (56897) Comments: PATIENT WAS FASTINGPERFORMED BY: [facility]6370 [facility] [id number] C-Reactive Protein, Quant 0.6 mg/L (Normal) Range: 0.0-4.9 :27 FOLIC ACID SERUM (69633) Comments: PATIENT WAS FASTINGPERFORMED BY: [facility]6370 [facility] [id number] Folate (Folic Acid), Serum >20.0 ng/mL (Normal) Comments: A serum folate concentration of less than 3.1 ng/mL isconsidered to represent clinical deficiency. :27 VITAMIN B-12 (CYANOCOBALAMIN) Comments: PATIENT WAS FASTINGPERFORMED BY: [facility]6370 [facility] [id number] (05301) Vitamin B12 681 pg/mL (Normal) Range: 232-1245 :27 TSH (THYROID STIMULATING Comments: PATIENT WAS FASTINGPERFORMED BY: [facility]6370 [facility] [id number] HORMONE) (34845) TSH 6.650 {uIU/mL} (Abnormal) Range: 0.450-4.500 :27 LIPID PANEL (83315) Comments: PATIENT WAS FASTINGPERFORMED BY: [facility]6370 [facility] [id number] LDL/HDL Ratio 1.4 {ratio} (Normal) Range: 0.0-3.2 [...] mg/dL (Normal) Range: 100-199 :27 HGB A1C (54893) Comments: PATIENT WAS FASTINGPERFORMED BY: [facility]6370 [facility] [id number] Hemoglobin A1c 5.6 % (Normal) Range: 4.8-5.6 Comments: . Pre-diabetes: 5.7 - 6.4 Diabetes: >6.4 Glycemic control for adults with diabetes: <7.0 :27 serum free light chains Comments: PATIENT WAS FASTINGPERFORMED BY: AproposeAtl[facility]Care [facility] CampusKxpgay1102 [facility] [id number] (50891) Sperry/Lambda Ratio,S 1.18 (Normal) Range: 0.26-1.65 Free Lambda Lt Chains,S 19.1 mg/L (Normal) Range: 5.7-26.3 Free Sperry Lt Chains,S 22.5 mg/L (Abnormal) Range: 3.3-19.4 :27 urine immunofixation (27221) Comments: PATIENT WAS FASTINGPERFORMED BY: [facility]6370 [facility] [id number] THEE Interpretation:U UPEIP (Normal) Comments: No monoclonality detected. :27 serum immunofixation (36414) Comments: PATIENT WAS FASTINGPERFORMED BY: [facility]6370 [facility] [id number] Immunoglobulin M, Qn, Serum 68 mg/dL (Normal) Range: 26-217 Immunoglobulin A, Qn, Serum 111 mg/dL (Normal) Range: 64-422 Immunoglobulin G, Qn, Serum 669 mg/dL (Abnormal) Range: 700-1600 Immunofixation Result, Serum UPEIP (Normal) Comments: No monoclonality detected. :27 URINALYSIS, W/ MICRO (68110) Comments: PATIENT WAS FASTINGPERFORMED BY: [facility]6370 [facility] [id number] Microscopic Examination See below: (Normal) Comments: Microscopic was indicated and was performed. Microscopic Examination MICRON (Normal) Comments: Microscopic follows if indicated. Nitrite, Urine Negative (Normal) Urobilinogen,Semi-Qn 0.2 mg/dL (Normal) Range: 0.2-1.0 Bilirubin Negative (Normal) Occult Blood Negative (Normal) Ketones Negative (Normal) Glucose Negative (Normal) Protein Negative (Normal) WBC Esterase Negative (Normal) Appearance Clear (Normal) Urine-Color Yellow (Normal) pH 6.0 (Normal) Range: 5.0-7.5 Specific [place] 1.019 (Normal) Range: 1.005-1.030 68-Vce-56811:27 METABOLIC PANEL, COMPREHENSIVE Comments: PATIENT WAS FASTINGPERFORMED BY: [facility]6370 [facility] [id number] (17899) ALT (SGPT) 12 [iU]/L (Normal) Range: 0-32 [...] 8-27 Glucose 91 mg/dL (Normal) Range: 65-99 4-Kbu-759367:14 CBC W/Diff, Automated Comments: Reason for Laboratory Test .[facility] Nmlwuqhaxi17[address] [place], [place], [address] Absolute Lymph 0.91 {X10_3/ul} (Normal) Range: 0.83-4.51 [...] 4.2-5.4 WBC 5.1 K/mm3 (Normal) Range: 4.4-11.0 0-Gsl-539511:14 Comprehensive Metabolic Profil Comments: Reason for Laboratory Test .Is Patient Taking Vitamins or Folic Acid Supplements? [facility] [address] [place], [place], [address] GAP 7 (Normal) Range: 5-15 CO2 30.0 [...] 7-18 GLU 100 mg/dL (Normal) Range: 70-110 5-Okc-529595:14 Ferritin Comments: Reason for Laboratory Test .Is Patient Taking Vitamins or Folic Acid Supplements? [facility] [address] [place], [place], [address] FERRITIN 42 ng/mL (Normal) Range: 8-252 0-Mur-953326:14 Folates, (Folic Acid) Comments: Reason for Laboratory Test .Is Patient Taking Vitamins or Folic Acid Supplements? [facility] [address] [place], [address] FOLATES 82.80 ng/mL (Abnormal) Range: 3.1-55.4 Comments: Please note revised Folates reference range /14/2017. 9-Lag-744820:14 Iron+Iron Binding Capacity Comments: Reason for Laboratory Test .Is Patient Taking Vitamins or Folic Acid Supplements? [facility] Sweumqtcez5989 [address]. [place], [address] IRON SATURATION 10.7 % (Abnormal) Range: 15.0-55.0 IRON 36 ug/dL (Abnormal) Range: 50-170 TIBC 335 ug/dL (Normal) Range: 250-450 2-Rdc-603268:14 Vitamin B12 > 2000 pg/mL (Abnormal) Comments: Reason for Laboratory Test .[facility] Miylloimwl2006 [address]. [place], [id number] Range: 211-911 28-Pgs-297242:06 Stool Occult Blood iFOB Comments: [facility] Kkphtbqvvg7[address], [address] STOB See Note (Normal) Comments: Reason for Laboratory Test . STOB iFOBOccult Blood Negative 75-Cil-33674:18 CBC W/Diff, Automated Comments: [facility] Prdwfzecgy8059 [address]. [place], [address] Absolute Lymph 1.31 {X10_3/ul} (Normal) Range: 0.83-4.51 [...] 4.2-5.4 WBC 3.4 K/mm3 (Abnormal) Range: 4.4-11.0 39-Ziu-42709:18 Comprehensive Metabolic Profil Comments: Is Patient Taking Vitamins or Folic Acid Supplements? [facility] Aprmscuuda1009 [place], [address] GAP 7 (Normal) Range: 5-15 CO2 28.0 [...] Patient Taking Vitamins or Folic Acid Supplements? [facility] Okynocpphg7937 [address] [place], [place], [address] FERRITIN 16 ng/mL (Normal) Range: 8-252 :18 Folates, (Folic Acid) Comments: Is Patient Taking Vitamins or Folic Acid Supplements? [facility] Ybyjdusbcd7151 [address]. [place], [place], [address] FOLATES 67.80 ng/mL (Abnormal) Range: 3.1-17.5 :18 Iron+Iron Binding Capacity Comments: Is Patient Taking Vitamins or Folic Acid Supplements? [facility] Vtsnypebus9586 [address] [place], [place], [address] IRON SATURATION 11.2 % (Abnormal) Range: 15.0-55.0 IRON 41 ug/dL (Abnormal) Range: 50-170 TIBC 367 ug/dL (Normal) Range: 250-450 :18 Vitamin B12 1297 pg/mL (Abnormal) Comments: [facility] Zqloxwcbzh0440 [address] [place], [place], [address] Range: 211-911 93-Htu-831839:09 Urinalysis, Office (54270) UA - LEUKOCYTE ESTERASE Negative (Normal) UA - NITRITE Negative (Normal) URINE UROBILINGN DIPAK TIMED 2 mg/dL (Normal) UA - PROTEIN Negative mg/dL (Normal) UA - PH 6.0 (Normal) UA - BLOOD Hemolyzed Trace (Normal) UA - SPECIFIC GRAVITY 1.015 (Normal) UA - KETONES Negative mg/dL (Normal) UA - BILIRUBIN Negative (Normal) UA - GLUCOSE Negative (Normal) 92-Aaz-277324:09 Blood Glucose , Office (36057) Blood Glucose , Office 91 (Normal) 61-Glp-154678:09 HgA1C , Office (21106) HgA1C , Office 5.3 % (Normal) Range: 4.6 - 7.1 :01 CBC W/Diff, Automated Comments: [facility] [address] [place], [place], [address] Absolute Lymph 0.96 {X10_3/ul} (Normal) Range: 0.83-4.51 [...] Range: 4.4-11.0 :01 Comprehensive Metabolic Profil Comments: [facility] [address]jas[address]uq[address] [place], [place], [address] GAP 12 (Normal) Range: 5-15 CO2 24.0 [...] (Normal) Range: 70-110 :01 Hemoglobin A1c Comments: [facility] Ddpbnwkfgk7[address] [place], [place], [address] HGB A1C 5.3 % (Normal) Range: 4.2-6.3 :01 THEE + Protein Elect, Serum Comments: Is Patient F[facility]? [facility] (refer to report for specific site)refer to report for address and phone number NOTE: Comment (Normal) Comments: Protein electrophoresis scan will follow via computer,mail, or pattern molder delivery. THEE RESULT,S Comment (Normal) Comments: No monoclonality detected. A/G RATIO 1.2 (Normal) Range: 0.7-1.7 GLOBULIN, TOTAL 3.1 g/dL (Normal) Range: 2.2-3.9 M-SPIKE g/dL (Normal) Comments: Not Observed GAMMA GLOBULIN 0.7 g/dL (Normal) Range: 0.4-1.8 BETA GLOBULIN 0.9 g/dL (Normal) Range: 0.7-1.3 WIYUT-3-CVAD 1.0 g/dL (Normal) Range: 0.4-1.0 KJIBF-0-BBYX 0.5 g/dL (Abnormal) Range: 0.0-0.4 ALBUMIN 3.6 [...] Comment (Normal) Comments: No monoclonality detected.Performed at: [facility] [address] [id number] Director: Samm Galvan PhD, Phone: [phone] 72-Hym-64476:01 Lipid Profile Comments: [facility] Shvgxzuofg94[address] [facility] [place], [place], [address] VLDL 19 mg/dL (Normal) Range: 5-40 LDL [...] Risk :01 Thyroid Stim Hormone (TSH) Comments: [facility] Glpuolapar8[address]. [place], [address] TSH 4.87 {uIU/mL} (Abnormal) Range: 0.358-3.74 :01 Vitamin D,25 Hydroxy Comments: [facility] Irilykezbf1422 [address]. [place], [address] Vitamin D 25-OH 27.3 ng/mL (Normal) Comments: Vitamin D 25(OH) Status Range Deficiency <20 ng/mL (50nmol/L) Insuffciency 20 - 30 ng/mL (50 - 75 nmol/L) Sufficiency 30 - 100 ng/mL (75 - 250 nmol/L) Toxicity >100 ng/mL (>250 nmol/L) :54 CBC W/Diff, Automated Comments: [facility] Mmhtqsguul7484 [address]. [place], [address] Absolute Lymph 1.70 {X10_3/ul} (Normal) Range: 0.83-4.51 [...] Serial specimen #1, #2, #3, or #4: [address] [place] [address] Gtvslexchc7586 [place], [address] GAP 8 (Normal) Range: 5-15 CO2 25.0 [...] (Normal) Range: 70-110 :54 Hemoglobin A1c Comments: [facility] Dxkluovlcs7676 [place], [address] HGB A1C 5.9 % (Normal) Range: 4.2-6.3 :54 Lipid Profile Comments: 'TROP' Serial specimen #1, #2, #3, or #4: [address] [place] [address] [place], [address] VLDL 31 mg/dL (Normal) Range: 5-40 [...] Serial specimen #1, #2, #3, or #4: [address] [place] [address] Euugeqjhbh2693 [place], [address] TSH 4.73 {uIU/mL} (Abnormal) Range: 0.358-3.74 :54 Troponin-I Comments: 'TROP' Serial specimen #1, #2, #3, or #4: [address] [place] [address] [place], [address] TROPONIN-I < 0.02 ng/mL (Normal) Comments: TROPONIN-I EXPECTED VALUES <0.05 NEGATIVE 0.06 - 0.59 AT RISK OF GA > OR = 0.60 SUGGEST GA 16-Joj-299482:51 CBC W/Diff, Auto - EPLAB Comments: Order Date: 01/01/16Order Info: [id number] - *CBC w/Diff - oncology ONLYComments: DRAW AND HOLD SERUM TUBEOrder Date: 01/01/16Order Info: [id number] - *CBC w/Diff - oncology ONLYComments: DRAW AND HOLD SERUM Only TUBEAt [facility] Outpatient [facility] Medical Oncologypatients receive CBC w/auto Differential ONLY. Physicianwill place an order for a manual differential or Pathologistreview at his discretion. [facility] OUTPATIENT [facility]. [address] [place] [address] [address] PARTS DESIGNER: JOSE KOHLI DO PH:[phone] Date: 01/01/16Order Info: [id number] - *MISC - Miscellaneous Lab Test #1Comments: Test(s) Ordered by Physician:[facility] Acnmcplvcw[address] [place], [address] Absolute Lymph 1.39 {X10_3/uL} (Normal) Range: 0.83-4.51 [...] 4.2-5.4 WBC 4.7 K/mm3 (Normal) Range: 4.4-11.0 07-Ywn-587239:51 Comprehensive Metabolic Comments: Order Date: 01/01/16Order Info: [id number] - *CMP Complete Metabolic PanelOrder Info: 3084-1 - *Uric Acid BloodOrder Info: 2500-7 - *TIBCOrder Info: 1228-4 - *IronOrder Info: 9946-4 - *FerritinComments: Ashlyn Martin son:Order Info: 2532-0 - *LDH -LDH (Lactate Dehydrogenase)Order Date: 01/01/16Order Info: [id number] - *MISC - Miscellaneous Lab Test #1Comments: Test(s) Ordered by Physician:FOLATESSerial Specimen #1, # 2 or #3? 1Is Patient Taking Vitamins or Folic Acid Supplements? [facility] Ghsmkjlzzb[address] [place], [address] GAP 2 (Abnormal) Range: 5-15 CO2 29.0 [...] 7-18 GLU 89 mg/dL (Normal) Range: 70-110 67-Xff-555684:51 Ferritin Comments: Order Date: 01/01/16Order Info: [id number] [...] Patient Taking Vitamins or Folic Acid Supplements? [facility] [address] [place], [place], [phone] FERRITIN 14 ng/mL (Normal) Range: 8-252 01-Snh-907869:51 Folates, (Folic Acid) Comments: Order Date: 01/01/16Order [...] Patient Taking Vitamins or Folic Acid Supplements? [facility] [address] [place], [address] FOLATES 72.40 ng/mL (Abnormal) Range: 3.1-17.5 91-Rrv-270767:51 Iron Comments: Order Date: 01/01/16Order Info: [id number] [...] Patient Taking Vitamins or Folic Acid Supplements? [facility] Z[address]wofuka[address] [place], [place], [address] IRON 40 ug/dL (Abnormal) Range: 50-170 31-Goh-795885:51 Iron Binding Capacity,Total Comments: Order Date: 01/01/16Order [...] Patient Taking Vitamins or Folic Acid Supplements? [facility] Cnsrxkxcea[address] [place], [place], [address] TIBC 354 ug/dL (Normal) Range: 250-450 38-Dbk-583262:51 LDH 199 U/L (Normal) Comments: Order Date: [...] Patient Taking Vitamins or Folic Acid Supplements? [facility] [address]rx[address] [place], [address] Range: 84-246 42-Yub-194172:51 Uric Acid Comments: Order Date: 01/01/16Order Info: [...] Patient Taking Vitamins or Folic Acid Supplements? [facility] [address] [place], [address] URIC 3.9 mg/dL (Normal) Range: 2.6-6.0 Comments: The drugs N-Acetylcysteine and Metamizole may falsely deressthis assay. 60-Lkc-562745:51 Vitamin B12 809 pg/mL (Normal) Comments: Order Date: 01/01/16Order Info: [id number] - *B-12Order Date: 01/01/16Order Info: [id number] - *MISC - Miscellaneous Lab Test [facility] [address]wektjx[address] [place], [address] Range: 211-911 74-Qsz-945853:41 D-Dimer Quantitative (DVT/PE) Comments: Order Date: 06/15/16Order Info: [id number] - *DDIMQ - Fibrin Degrd Ultrsens Qual/SemiquanOrder Date: 06/15/16Order Info: [id number] - *DDIMQ - Fibrin Degrd Ultrsens Qual/[facility] M[address]eydkibeg[address] [place], [place], [address] D-DIMER QUANT 0.28 {FEU/ug/m} (Normal) Range: 0.27-0.49 Comments: NORMAL D-Dimer level (<0.50) indicates no DVT or PE. 0-Tem-123469:15 Thyroxine (T4) Free, Direct, S Comments: PATIENT NOT FASTINGPERFORMED BY: CB [facility] Vcvysp1766 [facility] [id number] T4,Free(Direct) 1.22 ng/dL Range: 0.82-1.77 (Normal) Triiodothyronine,Free,Seru 2.2 pg/mL (Normal) Comments: PATIENT NOT FASTINGPERFORMED BY: [facility] Lxixam9234 [facility] [id number] 4:15 m Range: 2.0-4.4 Written Authorization WAR (Normal) Comments: PATIENT NOT FASTINGPERFORMED BY: [facility] Yxwinb3369 [facility] [id number] 4:15 Comments: Written Authorization Received.Authorization received from MAO BENITEZ [id number] by Jyothi Boland 7-Biv-876655:15 [facility] (33625) Comments: PATIENT NOT FASTINGPERFORMED BY: [facility] Rlggnf2454 [facility] [id number] Please note: SPRCS (Normal) Comments: Protein electrophoresis scan will follow via computer, mail, orcourier delivery. A/G Ratio 1.3 (Normal) Range: 0.7-1.7 Globulin, Total 2.8 g/dL (Normal) Range: 2.2-3.9 M-Abhinav Not Observed g/dL (Normal) Gamma Globulin 0.8 g/dL (Normal) Range: 0.4-1.8 Beta Globulin 0.8 g/dL (Normal) Range: 0.7-1.3 Mxuge-2-Hxpqlfpl 0.9 g/dL (Normal) Range: 0.4-1.0 Nzmmt-3-Eyulypvm 0.2 g/dL (Normal) Range: 0.0-0.4 Albumin 3.6 g/dL (Normal) Range: 2.9-4.4 Protein, Total, Serum 6.4 g/dL (Normal) Range: 6.0-8.5 5-Ckr-841210:15 UPEP (60898) Comments: PATIENT NOT FASTINGPERFORMED BY: AproposeAtlantiCare [facility] CampusCjrhvt5887 [facility] [id number] Please note: SPRCS (Normal) Comments: Protein electrophoresis scan will follow via computer, mail, orcourier delivery. M-Abhinav, % Not Observed % (Normal) Gamma Globulin, U 39.7 % (Normal) Beta Globulin, U 30.6 % (Normal) Wxgim-5-Semstyvf, U 6.8 % (Normal) Bhayg-9-Yhgbuzfs, U 2.0 % (Normal) Albumin, U 21.0 % (Normal) Protein,Total,Urine 4.5 mg/dL (Normal) 2-Nvo-065503:15 TSH (07110) Comments: PATIENT NOT FASTINGPERFORMED BY: LabSilverCloud HealthAtlantiCare [facility] Main[facility] CampusRpbzvl9852 [facility] [id number] TSH 7.400 {uIU/mL} (Abnormal) Range: 0.450-4.500 8-Klc-647612:15 CBC WITH MANUAL DIFF (40406) Comments: PATIENT NOT FASTINGPERFORMED BY: [facility]6370 [facility] [id number] Immature Grans (Abs) 0.0 {x10E3/uL} (Normal) Range: [...] 3.77-5.28 WBC 4.5 {x10E3/uL} (Normal) Range: 3.4-10.8 7-Wvg-044533:15 RETICULOCYTE COUNT (71996) Comments: PATIENT NOT FASTINGPERFORMED BY: AproposeAdvanced Care Hospital of Southern New MexicoCmxlrq9528 [facility] [id number] Reticulocyte Count 1.0 % (Normal) Range: 0.6-2.6 3-Yea-327001:15 LDH (LD) (LACTATE DEHYDROGENASE) Comments: PATIENT NOT FASTINGPERFORMED BY: AproposeAtl[facility]Care [facility] CampusNqxllv0360 [facility] [id number] (11981) LDH 185 [iU]/L (Normal) Range: 119-226 6-Knp-700318:15 Iron Binding Capacity (TIBC) Comments: PATIENT NOT FASTINGPERFORMED BY: AproposeAtlantiCare [facility] Main[facility] CampusEqxsbv0169 [facility] [id number] (71263) Iron Saturation 16 % (Normal) Range: 15-55 Iron, Serum 55 ug/dL (Normal) Range: 27-139 UIBC 281 ug/dL (Normal) Range: 118-369 Iron Bind.Cap.(TIBC) 336 ug/dL (Normal) Range: 250-450 9-Lsl-181753:15 Vitamin B-12 (cyanocobalamin) Comments: PATIENT NOT FASTINGPERFORMED BY: AproposeAtlantiCare [facility], Main[facility] CampusHmzjde5521 [facility] [id number] (84457) Vitamin B12 979 pg/mL (Abnormal) Range: 211-946 9-Umi-232885:15 Folic Acid Serum (80959) Comments: PATIENT NOT FASTINGPERFORMED BY: LabAscension Borgess Hospital6370 [facility] [id number] Folate (Folic Acid), Serum >20.0 ng/mL (Normal) Comments: A serum folate concentration of less than 3.1 ng/mL isconsidered to represent clinical deficiency. 2-Acq-015200:15 Ferritin (48924) Comments: PATIENT NOT FASTINGPERFORMED BY: LabCoAtlantiCare [facility], Main[facility] CampusOyhvwy8629 [facility] [id number] Ferritin, Serum 30 ng/mL (Normal) Range: 15-150 28-Had-859538:05 CBC W/Diff, Automated Comments: [facility] Ujlipcxhcy8[address] [place], [address] Absolute Lymph 1.49 {X10_3/ul} (Normal) Range: 0.83-4.51 [...] 4.2-5.4 WBC 4.6 K/mm3 (Normal) Range: 4.4-11.0 46-Nay-435969:05 Comprehensive Metabolic Profil Comments: [facility] [address]ecspqpl[address] [place], [place], [address] GAP 8 (Normal) Range: 5-15 CO2 28.0 [...] 7-18 GLU 86 mg/dL (Normal) Range: 70-110 05-Wjv-187910:05 Hemoglobin A1c Comments: [facility] Lwboivmrqz86[address] [place], [address] HGB A1C 5.2 % (Normal) Range: 4.2-6.3 05-Cyr-661178:05 Lipid Profile Comments: [facility] [address] [place], [address] VLDL 22 mg/dL (Normal) Range: 5-40 [...] 200-240 mg/dL Borderline >240 mg/dL High Risk 51-Iow-284903:05 Microalb:Creat Ratio,Random UR Comments: [facility] Ixsgsdlibg01[address] [place], [address] MALB:CREAT 5.0 {mg/g_CRE} (Normal) MICROALBUMIN,UR 7.2 mg/L (Normal) UR CREAT 144.00 mg/dL (Normal) 57-Tpe-026322:05 Vitamin D,25 Hydroxy Comments: [facility] Havqduybos3468 [place], [address] Vitamin D 25-OH 40.3 ng/mL (Normal) Comments: Vitamin D 25(OH) Status Range Deficiency <20 ng/mL (50nmol/L) Insuffciency 20 - 30 ng/mL (50 - 75 nmol/L) Sufficiency 30 - 100 ng/mL (75 - 250 nmol/L) Toxicity >100 ng/mL (>250 nmol/L) 21-Ego-47162:27 CBC with auto diff (91949) Comments: PATIENT WAS FASTINGPERFORMED BY: LabCoAtlantiCare [facility], [facility] CampusInwqsl3166 [facility] [id number] Immature Grans (Abs) 0.0 {x10E3/uL} (Normal) Range: [...] 3.77-5.28 WBC 3.3 {x10E3/uL} (Abnormal) Range: 3.4-10.8 73-Nyf-103698:35 MAGNESIUM (62616) Comments: PATIENT NOT FASTINGPERFORMED BY: [facility] Cknzfu5335 [facility] [id number] Magnesium, Serum 1.8 mg/dL (Normal) Range: 1.6-2.3 :35 POTASSIUM SERUM (70156) Comments: PATIENT NOT FASTINGPERFORMED BY: [facility] Cdgopr5403 [facility] [id number] Potassium, Serum 4.5 mmol/L (Normal) Range: 3.5-5.2 :00 CBC W/Diff, Automated Comments: [facility] [id number] [place], [address] Absolute Lymph 0.91 {X10_3/ul} (Normal) [...] Range: 4.4-11.0 :00 Comprehensive Metabolic Profil Comments: [facility] [id number] [place], [place], [id number] GAP 8 (Normal) Range: 5-15 CO2 31.0 [...] 7-18 GLU 75 mg/dL (Normal) Range: 70-110 [id number]-Ppk-[id number]:00 Erythrocyte Sed Rate Comments: [facility] [id number] [place], [place], [id number] SED RATE 21 mm/h (Normal) Range: 0-30 [id number]-[id number] CBC W/Diff, Automated Comments: [facility] [id number] [place], [place], [id number] Absolute Lymph 1.96 {X10_3/ul} (Normal) Range: 0.83-4.51 [...] 4.4-11.0 :37 Thyroid Stim Hormone (TSH) Comments: [address] [place], [address] TSH 4.43 {uIU/mL} (Abnormal) Range: 0.358-3.74 :37 Vitamin B12 969 pg/mL (Abnormal) Comments: [address] [place], [address] Range: 211-911 29-Jan-20160:00 CBC W/ Manual Differential Comments: [address] [place], [address] RED CELL MORPH NORM C+C [...] Contrast this admission? NIs Patient on Heparin? [facility] [address] [place], [place], [address] GAP 7 (Normal) Range: 5-15 CO2 30.0 [...] Contrast this admission? NIs Patient on Heparin? [facility] [address] [place], [place], [address] FREE T3 2.1 pg/mL (Abnormal) Range: 2.18-3.98 :00 T4 Free Direct Comments: ADD ON TSHHas Patient had X-rays with Contrast this admission? NIs Patient on Heparin? [facility] [address] [place], [address] T4 FREE DIRECT 1.30 ng/dL (Normal) Range: 0.76-1.46 29-Jan-20160:00 Thyroid Peroxidase AB Comments: [facility] (refer to report for specific site)refer to report for address and phone number TPO AB 6676 6 {IU/mL} (Normal) Range: 0-34 Comments: Performed at: [facility] [address] [id number] Director: Samm Galvan PhD, Phone: [phone] 29-Jan-20160:00 Thyroid Stim Hormone (TSH) Comments: ADD ON TSHHas Patient had X-rays with Contrast this admission? NIs Patient on Heparin? [facility] [address] [place], [address] TSH 5.27 {uIU/mL} (Abnormal) Range: 0.358-3.74 02-Aps-710867:38 CBC W/Diff, Auto - EPLAB Comments: At [facility] Outpatient [facility] [place] Medical Oncologypatients receive CBC w/auto Differential ONLY. Physicianwill place an order for a manual differential or Pathologistreview at his discretion. [facility] OUTPATIENT [facility]. [address] [place] [address] [address] PARTS DESIGNER: JOSE KOHLI DO PH:[phone] Hospital [address]xnqx[address] [place], [place], [address] Absolute Lymph 1.55 {X10_3/uL} (Normal) Range: 0.83-4.51 [...] 4.2-5.4 WBC 5.4 K/mm3 (Normal) Range: 4.4-11.0 46-Pja-497925:19 Pathology Report Comments: PERFORMED BY: [facility] Leota Cyto Ynojo79756 [facility] [id number] BY: [facility] Dermatopathology Xvlxwqg[address] [id number] Information: [id number] See MATER Comments: Material submitted: .PUNCH BIOPSY [...] SPECIMEN IS SUBMITTEDIN CASSETTE(S) A./CORCOR/CORPathologist provided ICD-10:D04.62CPT .667397 86-Lwg-475304:15 HgA1C , Office (35127) HgA1C , Office 5.7 % (Normal) Range: 4.6 - 7.1 :13 CBC W/Diff, Automated Comments: [facility] [address] [place], [place], [address] Absolute Lymph 1.90 {X10_3/ul} (Normal) Range: 0.83-4.51 [...] 4.2-5.4 WBC 4.5 K/mm3 (Normal) Range: 4.4-11.0 93-Pgj-404978:13 Comprehensive Metabolic Profil Comments: [facility] Tngulbbnqt[address] [place], [place], [address] GAP 6 (Normal) Range: 5-15 CO2 30.0 [...] 7-18 GLU 89 mg/dL (Normal) Range: 70-110 64-Vzm-971923:13 CRP Comments: [facility] [address] [place], [place], [address] C-REACTIVE PROT < 2.90 mg/L (Normal) Range: 0.0-3.0 Comments: C-Reactive Protein (CRP) provides useful information for thediagnosis, therapy and monitoring of inflammatory processesand associated diseases. For the evaluation of Relative Riskfor Cardiovascular Dise ase, a High Sensitivity CRP (HSCRP)should be ordered. 26-Rzw-187039:13 Erythrocyte Sed Rate Comments: [facility] [address] [place], [place], [address] SED RATE 13 mm/h (Normal) Range: 0-30 11-Ztb-538826:13 Lipid Profile Comments: [facility] [address] [place], [address] VLDL 32 mg/dL (Normal) Range: [...] 200-240 mg/dL Borderline >240 mg/dL High Risk 06-Wba-720775:13 Rheumatoid Factor Comments: [facility] [address] [place], [place], [address] RHEUMATOID FAC < 10.0 {IU/mL} (Normal) 41-Ssw-891126:13 Thyroid Stim Hormone (TSH) Comments: [facility] [address] [place], [address] TSH 4.62 {uIU/mL} (Abnormal) Range: 0.358-3.74 :54 Lipid Profile Comments: ORDERED: CBCD, CMP, LDH, URIC, XTRADR.FAST ORDERED: LIPID, CMP, VITD, CBCDWParkwood Hospital [address] [place], [address] VLDL 20 mg/dL (Normal) Range: 5-40 [...] High Risk :54 Vitamin D,25 Hydroxy Comments: [facility] [address]ktv[address] [place], [address] Vitamin D 25-OH 43.8 ng/mL (Normal) Comments: Vitamin D 25(OH) Status Range Deficiency <20 ng/mL (50nmol/L) Insuffciency 20 - 30 ng/mL (50 - 75 nmol/L) Sufficiency 30 - 100 ng/mL (75 - 250 nmol/L) Toxicity >100 ng/mL (>250 nmol/L) :53 CBC W/Diff, Automated Comments: [facility] [address] [place], [address] Absolute Lymph [...] Range: 4.4-11.0 :53 Comprehensive Metabolic Profil Comments: [facility] [address] [place], [place], [address] GAP 7 (Normal) Range: 5-15 CO2 32.0 [...] 70-110 :53 LDH 182 U/L (Normal) Comments: [facility] [address]rsx[address] [place], [place], [address] Range: 84-246 :53 Uric Acid Comments: [facility] [address]rugp[address] [place], [place], [address] URIC 4.4 mg/dL (Normal) Range: 2.6-6.0 76-Tcz-834872:49 CBC W/Diff, Auto - EPLAB Comments: At [facility] Outpatient [facility] Medical Oncologypatients receive CBC w/auto Differential ONLY. Physicianwill place an order for a manual differential or Pathologistreview at his discretion. [facility]. [address] [place] [address] [address] PARTS DESIGNER: JOSE KOHLI DO PH:[phone] Hospital [address]jtxt[address] [place], [place], [address] Absolute Lymph 1.40 {X10_3/uL} (Normal) Range: 0.83-4.51 [...] 4.2-5.4 WBC 4.0 K/mm3 (Abnormal) Range: 4.4-11.0 75-Wtr-057544:43 CBC W/Diff, Automated Comments: [facility] [address] [place], [place], [address] Absolute Lymph 1.46 {X10_3/ul} (Normal) Range: 0.83-4.51 [...] Serial specimen #1, #2, #3, or #4: [facility] [address] [place], [address] C-REACTIVE PROT < 2.90 mg/L (Normal) Range: 0.0-3.0 Comments: C-Reactive Protein (CRP) provides useful information for thediagnosis, therapy and monitoring of inflammatory processesand associated diseases. For the evaluation of Relative Riskfor Cardiovascular Dise ase, a High Sensitivity CRP (HSCRP)should be ordered. :43 CRP Comments: 'TROP' Serial specimen #1, #2, #3, or #4: [facility] [address] [place], [address] C-REACTIVE PROT < 2.90 mg/L (Normal) Range: 0.0-3.0 Comments: C-Reactive Protein (CRP) provides useful information for thediagnosis, therapy and monitoring of inflammatory processesand associated diseases. For the evaluation of Relative Riskfor Cardiovascular Dise ase, a High Sensitivity CRP (HSCRP)should be ordered. :43 Erythrocyte Sed Rate Comments: [facility] [address] [place], [place], [address] SED RATE 9 mm/h (Normal) Range: 0-30 :43 ASSAY, TROPONIN, QUANTITATIVE Comments: stat; 'TROP' Serial specimen #1, #2, #3, or #4: [address] [place], [place], [address] (aka Troponin I) (16715) TROPONIN-I < 0.02 ng/mL (Normal) Comments: TROPONIN-I EXPECTED VALUES <0.05 NEGATIVE 0.06 - 0.59 AT RISK OF GA > OR = 0.60 SUGGEST GA 80-Gjx-957555:15 Basic Metabolic Profile (BMP) Comments: PLEASE REDRAW PREVIOUS SPECIMENS MISLABELED'TROP' Serial specimen #1, #2, #3, or #4: 1'CKMB' Serial Specimen #1, #2 or #3? [facility] [address]glja[address] [place], [address] GAP 2 (Abnormal) Range: 5-15 [...] 7-18 GLU 103 mg/dL (Normal) Range: 70-110 70-Qnd-228932:15 CBC W/Diff, Automated Comments: [facility] [address]sfkwzg[address] [place], [address] Absolute Lymph 1.99 {X10_3/ul} (Normal) [...] 4.2-5.4 WBC 5.8 K/mm3 (Normal) Range: 4.4-11.0 39-Lia-280684:15 CK-MB Quantitative and Index Comments: PLEASE REDRAW PREVIOUS SPECIMENS MISLABELED'TROP' Serial specimen #1, #2, #3, or #4: 1'CKMB' Serial Specimen #1, #2 or #3? 1[facility] Qhpfnquzms1270 [facility]. [place], [place], [address] CKRI 0.7 % (Normal) Range: 0.0-1.4 Comments: RELATIVE INDEX >1.5% IS PRESUMPTIVELY POSITIVE CPKMB 0.6 ng/mL (Normal) Range: 0.0-5.0 Comments: CK-MB and RI Interpretation MB Relative Index Non-AMI <or= 5 NA Indeterminate > 5 <or= 4 AMI > 5 > 4 CPK TOTAL 82 U/L (Normal) Range: 26-192 62-Sgm-153981:15 Partial Thromboplast Time Comments: [facility] [address] [place], [place], [address] PTT 48.2 s (Abnormal) Range: 24.1-36.2 01-Teu-989063:15 Prothrombin Time w/INR Comments: [facility] [address]kb[address] [place], [place], [address] INR 2.3 (Normal) PROTIME 25.3 s (Abnormal) Range: 11.7-14.9 90-Gmq-498600:15 Troponin-I Comments: PLEASE REDRAW PREVIOUS SPECIMENS MISLABELED'TROP' Serial specimen #1, #2, #3, or #4: 1'CKMB' Serial Specimen #1, #2 or #3? [facility] [address]vspjdp[address] [place], [place], [address] TROPONIN-I < 0.02 ng/mL (Normal) Comments: TROPONIN-I EXPECTED VALUES <0.05 NEGATIVE 0.06 - 0.59 AT RISK OF GA > OR = 0.60 SUGGEST GA 63-Mcg-011185:25 Basic Metabolic Profile (BMP) Comments: Serial Specimen #1, #2 or #3? 1'TROP' Serial specimen #1, #2, #3, or #4: [facility] [address]xlnhfj[address] [place], [place], [address] GAP 10 (Normal) Range: 5-15 CO2 26.0 [...] 7-18 GLU 104 mg/dL (Normal) Range: 70-110 27-Trh-800027:25 BNP,B-Type NATRIURETIC PEPTIDE Comments: [facility] [address] [place], [place], [address] B-TYPE STEFAN PEP 94.1 pg/mL (Normal) Range: 0-100 28-Jlu-994234:25 CBC W/Diff, Automated Comments: [facility] [address] [place], [place], [address] Absolute Lymph 2.03 {X10_3/ul} (Normal) Range: 0.83-4.51 [...] 4.2-5.4 WBC 6.0 K/mm3 (Normal) Range: 4.4-11.0 54-Voq-600494:25 CK-MB Quantitative and Index Comments: Serial Specimen #1, #2 or #3? 1'TROP' Serial specimen #1, #2, #3, or #4: [address] [place] [address] [place], [address] CKRI Test not performed % (Normal) Range: 0.0-1.4 CPKMB < 0.5 ng/mL (Normal) Range: 0.0-5.0 Comments: CK-MB and RI Interpretation MB Relative Index Non-AMI <or= 5 NA Indeterminate > 5 <or= 4 AMI > 5 > 4 CPK TOTAL 69 U/L (Normal) Range: 26-192 63-Qlj-834715:25 Prothrombin Time w/INR Comments: [facility] [address]eq[address] [place], [address] INR 1.0 (Normal) PROTIME 13.4 s (Normal) Range: 11.7-14.9 53-Zet-816953:25 Troponin-I Comments: Serial Specimen #1, #2 or #3? 1'TROP' Serial specimen #1, #2, #3, or #4: [address] [place] [address] Tfvpphtmvd3567 [facility]. [place], [place], [address] TROPONIN-I < 0.02 ng/mL (Normal) Comments: TROPONIN-I EXPECTED VALUES <0.05 NEGATIVE 0.06 - 0.59 AT RISK OF GA > OR = 0.60 SUGGEST GA 24-Qrm-503335:50 Urinalysis, Office (64842) UA - LEUKOCYTE ESTERASE Small (Normal) UA - NITRITE Negative (Normal) URINE UROBILINGN DIPAK TIMED Normal mg/dL (Normal) UA - PROTEIN Negative mg/dL (Normal) UA - PH 7.0 (Normal) UA - BLOOD Non Hemolyzed Trace (Normal) UA - SPECIFIC GRAVITY 1.015 (Normal) UA - KETONES Negative mg/dL (Normal) UA - BILIRUBIN Negative (Normal) UA - GLUCOSE Negative (Normal) 66-Lxg-617728:16 URINE ELLE CULTURE-IDENTIFICATN Comments: PATIENT NOT FASTINGPERFORMED BY: [facility] [address]gt6[address] [place] [id number] Information: [id number] (72550) Result 1 MUG (Normal) Comments: Mixed urogenital flora1,000 Colonies/mL Urine Culture,Comprehensive Final report (Normal) :58 CBC W/Diff, Automated Comments: [facility] [address]th[address] [place], [place], [address] ; non-emergent till apt Absolute Lymph 1.57 [...] Range: 4.4-11.0 :58 Comprehensive Metabolic Profil Comments: [facility] [address] [place], [place], [address] GAP 8 (Normal) Range: 5-15 CO2 30.0 [...] (Normal) Range: 70-110 :58 Hemoglobin A1c Comments: [facility] [address] [place], [address] HGB A1C 5.9 % (Normal) Range: 4.2-6.3 :58 Lipid Profile Comments: [facility] [address] [place], [address] VLDL 14 mg/dL (Normal) Range: [...] Complete Comments: How was Urine Obtained? CLEAN [facility] [address]jtgotnk[address] [place], [address] MUCUS, URINE 0 SEEN {/hpf} [...] CLARITY Sl. Cloudy (Normal) COLOR Yellow (Normal) 52-Lpq-95336:26 CBC W/Diff, Auto - EPLAB Comments: At [facility] Outpatient [facility] Medical Oncologypatients receive CBC w/auto Differential ONLY. Physicianwill place an order for a manual differential or Pathologistreview at his discretion. [facility] OUTPATIENT [facility]. [address] [place] [address] [address] PARTS DESIGNER: JOSE KOHLI DO PH:[phone] Hospital [address] [place], [address] ; ordered by Dr. Evgeny [...] 4.2-5.4 WBC 7.0 K/mm3 (Normal) Range: 4.4-11.0 4-Qeb-648114:30 Basic Metabolic Profile (BMP) Comments: [facility] [address]rdjf[address] [place], [address] GAP 8 (Normal) Range: 5-15 CO2 27.0 [...] 7-18 GLU 84 mg/dL (Normal) Range: 70-110 6-Jza-927780:30 CBC-Complete Blood Cnt No Diff Comments: [facility] [address] [place], [place], [address] MPV 11.8 fL (Normal) Range: 6.2-12.0 PLT [...] 4.2-5.4 WBC 6.7 K/mm3 (Normal) Range: 4.4-11.0 29-Vxj-344006:37 CBC W/Diff, Auto - EPLAB Comments: At [facility] Outpatient [facility] Medical Oncologypatients receive CBC w/auto Differential ONLY. Physicianwill place an order for a manual differential or Pathologistreview at his discretion. [facility] OUTPATIENT [facility]. [address] [place] [address] [address] PARTS DESIGNER: JOSE KOHLI DO PH:[phone] Hospital [address] [place], [place], [address] Absolute Lymph 1.77 {X10_3/uL} (Normal) Range: 0.83-4.51 [...] 4.2-5.4 WBC 4.3 K/mm3 (Abnormal) Range: 4.4-11.0 78-Oce-381231:37 Comprehensive Metabolic Profil Comments: Serial Specimen #1, #2 or #3? 1Is Patient Taking Vitamins or Folic Acid Supplements? [facility] [address] [place], [place], [address] GAP 7 (Normal) Range: 5-15 CO2 29.0 [...] 7-18 GLU 84 mg/dL (Normal) Range: 70-110 90-Wkj-789851:37 Ferritin Comments: Serial Specimen #1, #2 or #3? 1Is Patient Taking Vitamins or Folic Acid Supplements? [facility] [address] [place], [address] FERRITIN 80 ng/mL (Normal) Range: 8-252 71-Fmu-201276:37 Folates, (Folic Acid) Comments: Serial Specimen #1, #2 or #3? 1Is Patient Taking Vitamins or Folic Acid Supplements? [facility] [address] [place], [address] FOLATES 63.40 ng/mL (Abnormal) Range: 3.1-17.5 71-Odm-470726:37 Iron Comments: Serial Specimen #1, #2 or #3? 1Is Patient Taking Vitamins or Folic Acid Supplements? [facility] [address] [place], [address] IRON 71 ug/dL (Normal) Range: 50-170 98-Ofe-299096:37 Iron Binding Capacity,Total Comments: Serial Specimen #1, #2 or #3? 1Is Patient Taking Vitamins or Folic Acid Supplements? [facility] [address] [place], [address] TIBC 335 ug/dL (Normal) Range: 250-450 94-Sfo-282275:37 LDH 162 U/L (Normal) Comments: Serial Specimen #1, #2 or #3? 1Is Patient Taking Vitamins or Folic Acid Supplements? [facility] [address] [place], [address] Range: 84-246 17-Kwi-218475:37 Uric Acid Comments: Serial Specimen #1, #2 or #3? 1Is Patient Taking Vitamins or Folic Acid Supplements? [facility] [address]frx[address]wm[address] [place], [address] URIC 4.5 mg/dL (Normal) Range: 2.6-6.0 39-Hbe-432585:37 Vitamin B12 1077 pg/mL (Abnormal) Comments: [facility] [address] [place], [address] Range: 211-911 82-Mtx-691018:36 CBC W/Diff, Auto - EPLAB Comments: At [facility] Outpatient [facility] [place] Medical Oncologypatients receive CBC w/auto Differential ONLY. Physicianwill place an order for a manual differential or Pathologistreview at his discretion. [facility]. [address] [place] [address] PARTS DESIGNER: JOSE KOHLI DO PH:[phone] Hospital [address]mlzza[address] [place], [address] Absolute Lymph 1.97 {X10_3/uL} (Normal) Range: 0.83-4.51 [...] (Normal) Range: 4.4-11.0 :48 Vitamin D Hydroxy (29693) Comments: PATIENT WAS FASTINGPERFORMED BY: [facility]6370 [facility] [id number] Vitamin D, 25-Hydroxy 32.8 ng/mL (Normal) Range: 30.0-100.0 Comments: Vitamin D deficiency has been defined by the Pelsor ofSheltering Arms Hospitalcine and an Endocrine Society practice guideline as alevel of serum 25-OH vitamin D less than 20 ng/mL (1,2).The Endocrine Society went on to further define vitamin Dinsufficiency as a level between 21 and 29 ng/mL (2).1. IOM (Pelsor of Medicine). 2010. Dietary reference intakes for calcium and D. [place]: The National Academies Press.2. JoseC arlos MF, Flip NC, David ROME, et al. Evaluation, treatment, and prevention of vitamin D deficiency: an Endocrine Society clinical practice guideline. JCEM. 2010; 96(7):1911-30. :48 CBC with auto diff Comments: PATIENT WAS FASTINGPERFORMED BY: [facility]in6370 [facility] [id number] Information: [id number] (08707) Immature Grans (Abs) 0.0 {x10E3/uL} (Normal) Range: [...] PANEL, COMPREHENSIVE Comments: PATIENT WAS FASTINGPERFORMED BY: [facility]CoAtl[facility]Care [facility] CampusIqznev3815 [facility] [id number] (99126) ALT (SGPT) 10 [iU]/L (Normal) Range: 0-32 [...] mg/dL (Normal) Range: 65-99 :48 LIPID PANEL (93970) Comments: PATIENT WAS FASTINGPERFORMED BY: [employer] [facility] [id number] LDL/HDL Ratio 1.2 {ratio_units} (Normal) Range: 0.0-3.2 [...] CREATININE RATIO Comments: PATIENT WAS FASTINGPERFORMED BY: [employer] [facility] [id number] (74883) AND (25959) Microalb/Creat Ratio 64.2 {mg/g_creat} (Abnormal) Range: 0.0-30.0 Microalbumin, Urine 46.3 ug/mL (Abnormal) Range: 0.0-17.0 Creatinine, Urine 72.1 mg/dL (Normal) Range: 15.0-278.0 :48 Hemoglobin Glyclated (HGB A1C) Comments: PATIENT WAS FASTINGPERFORMED BY: [employer] [facility] [id number] (39208) Hemoglobin A1c 5.7 % (Abnormal) Range: 4.8-5.6 Comments: . Pre-diabetes: 5.7 - 6.4 Diabetes: >6.4 Glycemic control for adults with diabetes: <7.0 26-Qer-861356:28 CBC W/Diff, Auto - EPLAB Comments: At [facility] Outpatient [facility] Medical Oncologypatients receive CBC w/auto Differential ONLY. Physicianwill place an order for a manual differential or Pathologistreview at his discretion. [facility]. [address] [place] [address] [address] PARTS DESIGNER: JOSE KOHLI DO PH:[phone] performed at:[facility] Laborato [address] [place], [place] [address] ; handled by evgeny Absolute Lymph 1.89 [...] W/Diff, Auto - EPLAB Only Comments: At [facility] Outpatient [facility] Medical Oncologypatients receive CBC w/auto Differential ONLY. Physicianwill place an order for a manual differential or Pathologistreview at his discretion. [facility]. [address] [place] [address] [address] PARTS DESIGNER: JOSE KOHLI DO PH:[phone] performed at:[facility] Laborato [address] [place] [address] Absolute Neut 2.6 {X10_3/uL} (Normal) [...] Serum Creatinine AND GFR Comments: Test performed at:[facility] [address] [place] [address] EST GFR - AA 62 mL/min (Normal) EST GFR 51 mL/min (Abnormal) CREAT,SERUM 1.12 mg/dL (Normal) Range: 0.55-1.20 Comments: Please note revised CREATININE reference range oqysozfri89/22/2015. 2-Gtc-301689:38 CBC W/Diff, Auto - EPLAB Only Comments: At [facility] Outpatient [facility] Medical Oncologypatients receive CBC w/auto Differential ONLY. Physicianwill place an order for a manual differential or Pathologistreview at his discretion. [facility] OUTPATIENT [facility]. [address] [place] [address] [address] PARTS DESIGNER: JOSE KOHLI DO PH:[phone] performed at:[facility] Laborato [address] [place], [place] [address] Absolute Neut 3.0 {X10_3/uL} (Normal) Range: 2.0-7.7 [...] 4.2-5.4 WBC 5.8 K/mm3 (Normal) Range: 4.4-11.0 70-Ucm-801340:12 FLURESCNT ANTIB SCRN EA Comments: PATIENT WAS FASTINGPERFORMED BY: [facility]CoAtl[facility] CampusOrxapi4613 [facility] [id number] Information: [id number] (28605) celiac profile Immunoglobulin A, Qn, Serum 119 [...] - 30 Moderate to Strong Positive >30 78-Akt-854999:12 IMMUNOASSAY, ANALYTE Comments: PATIENT WAS FASTINGPERFORMED BY: [email or web address]Former[facility] [id number] (NON-INFECT) (77760) celiac profile Mitochondrial (M2) Antibody <20.0 {Units} (Normal) Range: 0.0-20.0 Comments: Negative 0.0 - 20.0 Equivocal 20.1 - 24.9 Positive >24.9 . Mitochondrial (M2) Antibodies are found in 90-96% of patients with primary biliary cirrhosis. 52-Bxs-672625:12 IGA/IGD/IGG/IGM-EACH (85900) Comments: PATIENT WAS FASTINGPERFORMED BY: [employer]6370 [facility]ianAt[facility] [id number] Immunoglobulin E, Total 2 {IU/mL} (Normal) Range: 0-100 Immunoglobulin M, Qn, Serum 72 mg/dL (Normal) Range: 40-230 Immunoglobulin G, Qn, Serum 884 mg/dL (Normal) Range: 700-1600 92-Qwp-448975:12 METABOLIC PANEL, COMPREHENSIVE Comments: PATIENT WAS FASTINGPERFORMED BY: [email or web address]Former[facility] [id number] (84260) ALT (SGPT) 12 [iU]/L (Normal) Range: 0-32 [...] Glucose, Serum 94 mg/dL (Normal) Range: 65-99 24-Dbw-854432:12 LIPID PANEL (52402) Comments: PATIENT WAS FASTINGPERFORMED BY: [facility] Dbjlhl8415 [facility] [id number] LDL/HDL Ratio 1.2 {ratio_units} (Normal) Range: 0.0-3.2 [...] Cholesterol, Total 168 mg/dL (Normal) Range: 100-199 1-Xpf-673669:25 HgA1C , Office (71393) HgA1C , Office 5.8 % (Normal) Range: 4.6 - 7.1 :0 COLON BIOPSY (CHOOSE See Note (Normal) Comments: Test performed at:[facility] [address] [place], [place] [address] 4 SITE) Comments: Patient: LUPE LOPEZ : 1945 (69/F) Acct Num: [id number] Phys: Samm Boo Unit Num: [id number] Loc: [facility] Specimen: [id number] Received: 09/13/14 - 1609 Spec Type: C CHASE BX TISSUES TISSUES: GROSS DESCRIPTION Received is one container labeled with the patient name and designated biopsy polyp at mid transverse. The specimen consists of one irreg ular fragment of light gonzalez soft tissue that measures 0.3 x 0.2 x 0.1 cm. The specimen is totallysubmitted in one cassette. / AM: 09/17/14 TC:5 CPT: 48260 HEADER OPERATION: Colonoscopy with biopsy PRE-OP DIAGNOSIS: Anemia TISSUE SUBMITTED: Biopsy polyp - mid transverse - rule out adenoma MICROSCOPIC DIAGNOSIS Mid transverse colon polyp, biopsy: Tubular adenoma. AM: 09/17 Signed Jose Kohli 09/17/14 <signature on file> :58 CBC W/Diff, Auto - EPLAB Only Comments: At [facility] Outpatient [facility] Medical Oncologypatients receive CBC w/auto Differential ONLY. Physicianwill place an order for a manual differential or Pathologistreview at his discretion. [facility] OUTPATIENT [facility]. [address] [place] [address] [address] PARTS DESIGNER: JOSE KOHLI DO PH:[phone] performed at:[facility] [address] [place], [place] [id number] Absolute Neut 1.6 {X10_3/uL} Range: 2.0-7.7 (Abnormal) [...] BIOPSY See Note (Normal) Comments: Test performed at:[facility] [address] [place] [address] 00 Comments: Patient: LUPE LOPEZ : 1945 (69/F) Acct Num: [id number] Phys: Evgeny Farmer Unit Num: [id number] Loc: [facility] Specimen: [id number] Received: 07/31/14 - 1215 Spec Type: BMB TISSUES TISSUES: ADDENDUM Addendum Number 1 CYTOGENETICS REPORT FROM [facility] INTERPRETATION AND COMMENTS: Karyotype: 46,XX[20] A normal female karyotype w as observed in twenty metaphases analyzed. Please see complete report in e-chart or EMR for further details Addendum Signed Jose [facility] 5 <signature on file> BONE MARROW GROSS [...] and cytogenetics. / AM: 07/31/14 TC:5 CPT: 21785, 45532, 63178 x2, 95189 x3, 53285 BONE MARROW STUDY CBC DATE: 07/31/14 WBC [...] Highlights myeloid elements and megakaryocytes. COMMENT IHC ([id number]) supports the above diagnosis. Flow cytometry study [...] - Smears and send outs Signed Jose [facility] 08/06/14 <signature on file> : IMMUNOHISTOCHEMISTRY See Note (Normal) Comments: Test performed at:[facility] [address] [place] [address] 00 Comments: Patient: LUPE LOPEZ : 1945 (69/F) Acct Num: [id number] Phys: Evgeny Farmer Unit Num: [id number] Loc: MARY Specimen: [id number] Received: 08/01/14 - 1158 Spec Type: IMMUN O TISSUES TISSUES: SPECIMEN INFORMATION: Tissue Source: Bone marrow biopsy and clot Clinical Info: Anemia Specimen Number: [id number] A AND B CPT code: 10602, 07465 x19 METHOD OLOGY: Deparaffinized sections of prefer/formalin-fixed [...] (11E3) negative BCL-2 (BCL2/100/D5) negative BCL- 6 (LN22/YR320X/A8) negative Cyclin D 1/BCL-1 (SP4) negative Block B CD3 (LN10/PS1) positive CD5 (4C7/SP10) positive CD10 (56C6) negative CD20 (MJ1/L26) negative CD23 (1B12) negative CD45 (X16/99/ RP2/18) positive CD79a (11E3) negative BCL-2 (BCL2/100/D5) positive BCL-6 (LN22/NX422K/A8) nega tive Cyclin D1/BCL-1 (SP4) negative These tests were developed and their performance characteristics determined by [facility]. They may not have been cleared or approved by the U.S. Food and Drug Administration. The FDA has determined that such clearance or approval is not necessary. INTERPRETATION: A. Bone marrow biopsy: Polytypic lymphoid aggregates. B. Bone marrow clot: Polytypic lymphoid aggregates. Comment: There is no evidence of lymphoma. AM:jeniffer 08/02/14 PHYSICIAN AND INSTITUTION [place] [address] Signed Jose [facility] 08/06/14 <signature on file> 2-Sfz-812061:59 CBC W/Diff, Auto - EPLAB Only Comments: At [facility] Outpatient [facility] Medical Oncologypatients receive CBC w/auto Differential ONLY. Physicianwill place an order for a manual differential or Pathologistreview at his discretion. [facility]. [address] [place] [address] [address] PARTS DESIGNER: JOSE KOHLI DO PH:[phone] performed at:[facility] [address] [place], [place] [id number] Absolute Neut 2.3 {X10_3/uL} (Normal) Range: 2.0-7.7 [...] 4.2-5.4 WBC 5.2 K/mm3 (Normal) Range: 4.4-11.0 30-Zkr-91127:23 CBC W/Diff, Auto - EPLAB Only Comments: At [facility] Outpatient [facility] patientsreceive CBC w/auto Differential ONLY. Physician will placean order for a manual differential or Pathologist review athis discretion. [facility]. [address] [place] [address] [address] PARTS DESIGNER: JOSE KOHLI DO PH:[phone] performed at:[facility] [address] [place], [place] [id number] Absolute Neut 2.0 {X10_3/uL} (Normal) Range: 2.0-7.7 [...] 4.2-5.4 WBC 4.0 K/mm3 (Abnormal) Range: 4.4-11.0 29-Nhp-29308:23 Comprehensive Metabolic Profil Comments: Serial Specimen #1, #2 or #3? 1Test performed at:[facility] [address] [place], [place] [id number] GAP 6 (Normal) Range: 5-15 CO2 30.0 [...] Specimen #1, #2 or #3? 1Test performed at:[facility] [address] [place] [address] FERRITIN 255 ng/mL (Abnormal) Range: 8-252 :23 Iron Comments: Serial Specimen #1, #2 or #3? 1Test performed at:[facility] [address] [place] [address] IRON 72 ug/dL (Normal) Range: 50-170 :23 Iron Binding Capacity,Total Comments: Serial Specimen #1, #2 or #3? 1Test performed at:[facility] [address] [place] [address] TIBC 320 ug/dL (Normal) Range: 250-450 :23 LDH 176 U/L (Normal) Comments: Serial Specimen #1, #2 or #3? 1Test performed at:[facility] [address] [place] [address] Range: 87-241 :23 Uric Acid Comments: Serial Specimen #1, #2 or #3? 1Test performed at:[facility] [address] [place] [address] URIC 5.2 mg/dL (Normal) Range: 2.6-6.0 :45 Copper, Serum or Plasma Comments: Test performed at:[facility] [address] [place] [address] COPPER 112 ug/dL (Normal) Range: 72-166 Comments: Detection Limit = 5Performed at: [facility] LabCoAtl[facility] CampusShgiit[address] [place], [place] [id number] Director: Scot Nuñez PhD, Phone: [phone] at: [facility] LabCoJames [place] [address] [place], [place] [id number] Director: Satish Mayer MD, Phone: [phone] 25-Jun-20149:45 Lead, Blood Adult 16+yrs Comments: Test performed at:[facility] [address] [facility] [place] [address] LEAD *Form (Normal) Comments: None Detected Environmental Exposure: WHO Recommendation <20 Occupational Exposure: OSHA Lead Std 40 NIKI 30 Detection Limit = 1 7-Zrf-151669:43 Comprehensive Metabolic Profil Comments: Serial Specimen #1, #2 or #3? 1Is Patient Taking Vitamins or Folic Acid Supplements? NTest performed at:[facility] [address] [facility] [place], [place] [id number] GAP 6 (Normal) Range: 5-15 CO2 30.0 [...] 7-18 GLU 86 mg/dL (Normal) Range: 70-110 5-Izt-144482:43 Direct Antiglobulin Diann YUVAL Comments: Test performed at:[facility] [address] [place] [address] DIRECT DIANN= NEG w/POLYSPECIFIC (Normal) 3-Vpz-368453:43 Erythropoietin Comments: Is Patient Fasting? NTest performed at:[facility] [address] [place] [address] ERYTHROP 500580 24.8 m[iU]/mL (Abnormal) Range: 2.6-18.5 1-Tny-987402:43 Ferritin Comments: Serial Specimen #1, #2 or #3? 1Is Patient Taking Vitamins or Folic Acid Supplements? NTest performed at:[facility] [address] [place] [address] FERRITIN 11 ng/mL (Normal) Range: 8-252 6-Xfi-548440:43 Folates, (Folic Acid) Comments: Serial Specimen #1, #2 or #3? 1Is Patient Taking Vitamins or Folic Acid Supplements? NTest performed at:[facility] [address] [place] [address] FOLATES 48.80 ng/mL (Abnormal) Range: 3.1-17.5 :43 Haptoglobin Comments: Is Patient Fasting? NTest performed at:[facility] [address] [place] [address] HAPTOGLOB 1628 224 mg/dL (Abnormal) Range: 34-200 Comments: Performed at: - [facility] [id number] Director: Scot Nuñez PhD, Phone: [phone] 9-Xop-555360:43 THEE + Protein Elect, Serum Comments: Is Patient Fasting? NTest performed at:[facility] [address] [place] [address] NOTE: Comment (Normal) Comments: Protein electrophoresis scan will follow via computer,mail, or pattern molder delivery. THEE RESULT,S Comment: (Normal) Comments: THEE SHOWS ATYPICAL LAMBDA. A/G RATIO 1.4 (Normal) Range: 0.7-2.0 GLOBULIN, TOTAL 2.8 g/dL (Normal) Range: 2.0-4.5 M-SPIKE (Normal) Comments: Not Observed GAMMA GLOBULIN 0.9 g/dL (Normal) Range: 0.5-1.6 BETA GLOBULIN 0.9 g/dL (Normal) Range: 0.6-1.3 DQWFY-3-MCPZ 0.9 g/dL (Normal) Range: 0.4-1.2 IALTT-0-EMPG 0.3 g/dL (Normal) Range: 0.1-0.4 ALBUMIN 3.9 g/dL (Normal) Range: 3.2-5.6 IMMUNOGL M 1792 69 mg/dL (Normal) Range: 40-230 IMMUNO A 1784 133 mg/dL (Normal) Range: 91-414 IMMUNO G 1776 959 mg/dL (Normal) Range: 700-1600 PROTEIN,TOTAL 6.7 g/dL (Normal) Range: 6.0-8.5 :43 Iron Binding Capacity,Total Comments: Serial Specimen #1, #2 or #3? 1Is Patient Taking Vitamins or Folic Acid Supplements? NTest performed at:[facility] [address] [place] [address] TIBC 407 ug/dL (Normal) Range: 250-450 9-Pja-501121:43 Sperry Lambda Light Chains Comments: Is Patient Fasting? NTest performed at:[facility] [address] [facility] [address] KAPPA/LAMBDA % 1.35 (Normal) Range: 0.26-1.65 FR LAMBDA LT CH 18.72 mg/L (Normal) Range: 5.71-26.30 FR KAPPA LT CHN 25.25 mg/L (Abnormal) Range: 3.30-19.40 6-Fik-876319:43 LDH 173 U/L (Normal) Comments: Serial Specimen #1, #2 or #3? 1Is Patient Taking Vitamins or Folic Acid Supplements? NTest performed at:[facility] [address] [place] [address] Range: 87-241 0-Pou-950339:43 Retic Panel Comments: Test performed at:[facility] [address] [place] [address] IPF 2.5 % (Normal) Range: 1.0-7.9 [...] 3.00-15.90 RETIC 0.97 % (Normal) Range: 0.5-1.5 2-Att-536304:43 Thyroid Stim Hormone (TSH) Comments: Serial Specimen #1, #2 or #3? 1Is Patient Taking Vitamins or Folic Acid Supplements? NTest performed at:[facility] [address] [place] [address] TSH 1.87 {uIU/mL} (Normal) Range: 0.358-3.74 0-Cxt-735736:43 Uric Acid Comments: Serial Specimen #1, #2 or #3? 1Is Patient Taking Vitamins or Folic Acid Supplements? NTest performed at:[facility] [address] [place] [address] URIC 5.0 mg/dL (Normal) Range: 2.6-6.0 1-Xfw-583726:43 Vitamin B12 548 pg/mL (Normal) Comments: Test performed at:[facility] [address] [place] [address] Range: 211-911 1-Xkc-075480:42 CBC W/Diff, Auto - EPLAB Only Comments: At [facility] patientsreceive CBC w/auto Differential ONLY. Physician will placean order for a manual differential or Pathologist review athis discretion. [facility]. [address] [place] [address] [place] [address] PARTS DESIGNER: JOSE KOHLI DO PH:[phone] performed at:[facility] [address] [place] [address] Absolute Neut 2.6 {X10_3/uL} (Normal) Range: 2.0-7.7 [...] 4.2-5.4 WBC 4.8 K/mm3 (Normal) Range: 4.4-11.0 30-Uor-91865:56 METABOLIC PANEL, COMPREHENSIVE Comments: PATIENT WAS FASTINGPERFORMED BY: [facility]CoAtl[facility] CampusUubxqh3951 [facility] [id number] ([address]) ALT (SGPT) 5 [iU]/L (Normal) Range: 0-32 [...] mg/dL (Normal) Range: 65-99 :56 LIPID PANEL (76029) Comments: PATIENT WAS FASTINGPERFORMED BY: [employer] [facility] [id number] LDL/HDL Ratio 1.3 {ratio_units} (Normal) Range: 0.0-3.2 [...] DIFF WBC Comments: PATIENT WAS FASTINGPERFORMED BY: [employer] [facility] [id number] Information: [id number] (54221) Immature Grans (Abs) 0.0 {x10E3/uL} (Normal) Range: [...] 3.77-5.28 WBC 4.8 {x10E3/uL} (Normal) Range: 3.4-10.8 7-Fwi-212259:44 Protein Electro, Random Urine Comments: PATIENT WAS FASTINGPERFORMED BY: [facility]6370 [facility] [id number] Please note: SPRCS (Normal) Comments: Protein electrophoresis scan will follow via computer, mail, orcourier delivery. M-Abhinav, % Not Observed % (Normal) Gamma Globulin, U 19.9 % (Normal) Beta Globulin, U 25.8 % (Normal) Mwezi-6-Qhkjtbok, U 12.8 % (Normal) Fmsci-5-Bksehhwu, U 1.3 % (Normal) Albumin, U 40.2 % (Normal) Protein,Total,Urine 13.5 mg/dL (Normal) Range: 0.0-15.0 :44 Protein Electro.,S Comments: PATIENT WAS FASTINGPERFORMED BY: [facility] [place] [id number] [facility] [id number]; will review on 05/07 appt Please note: SPRCS (Normal) Comments: Protein electrophoresis scan will follow via computer, mail, orcourier delivery. A/G Ratio 1.2 (Normal) Range: 0.7-2.0 Globulin, Total 3.0 g/dL (Normal) Range: 2.0-4.5 M-Abhinav Not Observed g/dL (Normal) Gamma Globulin 1.0 g/dL (Normal) Range: 0.5-1.6 Beta Globulin 0.8 g/dL (Normal) Range: 0.6-1.3 Nfbsl-8-Shlfqqvn 0.9 g/dL (Normal) Range: 0.4-1.2 Rkevn-4-Wziapjjn 0.3 g/dL (Normal) Range: 0.1-0.4 Albumin 3.7 g/dL (Normal) Range: 3.2-5.6 Protein, Total, Serum 6.7 g/dL (Normal) Range: 6.0-8.5 Written Authorization WAR (Normal) Comments: PATIENT WAS FASTINGPERFORMED BY: [facility]6370 [facility] [id number] :44 Comments: Written Authorization Received.Authorization received from ENRIKE JAIMES [id number] by Jyothi Boland :44 LIPID PANEL (98629) Comments: PATIENT WAS FASTINGPERFORMED BY: [facility]6370 [facility] [id number] LDL/HDL Ratio 1.9 {ratio_units} (Normal) Range: 0.0-3.2 [...] Cholesterol, Total 211 mg/dL (Abnormal) Range: 100-199 6-Qjq-264279:37 FECAL OCCULT- Tubes sent home (58782) FECAL OCCULT HGB ASSAY, QUAL, 1-3 SIMULTANEOU positive (Normal) 8-Sfk-259829:44 RETICULOCYTE COUNT MANUL Comments: PATIENT WAS FASTINGPERFORMED BY: [employer].comFormerly [facility] [id number] (57023) Reticulocyte Count 1.6 % (Normal) Range: 0.6-2.6 8-Abf-419904:44 LDH (LD) (LACTATE DEHYDROGENASE) Comments: PATIENT WAS FASTINGPERFORMED BY: [facility] [id number] (72027) LDH 207 [iU]/L (Normal) Range: 119-226 4-Cfm-290041:44 IRON BINDING CAPACITY (TIBC) Comments: PATIENT WAS FASTINGPERFORMED BY: [employer] [id number] (12618) Iron Saturation 16 % (Normal) Range: 15-55 Iron, Serum 50 ug/dL (Normal) Range: 35-155 UIBC 270 ug/dL (Normal) Range: 150-375 Iron Bind.Cap.(TIBC) 320 ug/dL (Normal) Range: 250-450 6-Ibv-924431:44 FERRITIN (72548) Comments: PATIENT WAS FASTINGPERFORMED BY: [employer]Former[facility] [id number] Ferritin, Serum 84 ng/mL (Normal) Range: 15-150 7-Dzs-423751:44 CBC W/AUTO DIFF WBC (28888) Comments: PATIENT WAS FASTINGPERFORMED BY: [facility] [id number] Immature Grans (Abs) 0.0 {x10E3/uL} (Normal) Range: [...] CREATININE RATIO Comments: PATIENT WAS FASTINGPERFORMED BY: LabCoYolanda [place] [id number] [facility] [id number] (53584) AND (76773) Microalb/Creat Ratio 21.9 {mg/g_creat} (Normal) Range: 0.0-30.0 Microalbumin, Urine 22.0 ug/mL (Abnormal) Range: 0.0-17.0 Creatinine, Urine 100.3 mg/dL (Normal) Range: 15.0-278.0 :44 Hemoglobin Glyclated (HGB A1C) Comments: PATIENT WAS FASTINGPERFORMED BY: [facility]6370 [facility] [id number] (95804) Hemoglobin A1c 5.5 % (Normal) Range: 4.8-5.6 Comments: . Increased risk for diabetes: 5.7 - 6.4 Diabetes: >6.4 Glycemic control for adults with diabetes: <7.0 :39 Microscopic Examination Comments: PATIENT NOT FASTINGPERFORMED BY: [facility]6370 [facility] [id number] Bacteria Few (Normal) Mucus Threads Present (Normal) Epithelial Cells (non renal) 0-10 {/hpf} (Normal) Range: 0 - 10 RBC 0-2 {/hpf} (Normal) Range: 0 - 2 WBC 6-10 {/hpf} (Abnormal) Range: 0 - 5 :37 D-Dimer (12766) Comments: PATIENT NOT FASTINGPERFORMED BY: [facility]6370 [facility] [id number] Information: [id number] D-Dimer 0.84 {mg/L_FEU} (Abnormal) Range: 0.00-0.49 Comments: In conjunction with a non-high clinical probability assessment, anormal (<0.50 mg/L FEU) result excludes deep vein thrombosis (DVT)and pulmonary embolism (PE) with high sensitivity. :39 Vitamin D Hydroxy (50262) Comments: PATIENT NOT FASTINGPERFORMED BY: [facility]6370 [facility] [id number] Vitamin D, 25-Hydroxy 38.7 ng/mL (Normal) Range: 30.0-100.0 Comments: Vitamin D deficiency has been defined by the Pelsor ofMedicine and an Endocrine Society practice guideline as alevel of serum 25-OH vitamin D less than 20 ng/mL (1,2).The Endocrine Society went on to further define vitamin Dinsufficiency as a level between 21 and 29 ng/mL (2).1. IOM ([place] of Medicine). 2010. Dietary reference intakes for calcium and D. [place]: The National Academies Press.2. Jose Carlos MF, Flip [place], David ROME, et al. Evaluation, treatment, and prevention of vitamin D deficiency: an Endocrine Society clinical practice guideline. JCEM. 2010; 96(7):1911-30. 36-Mku-679438:39 Valproic Acid (36935) Comments: PATIENT NOT FASTINGPERFORMED BY: [facility] [address]dhc[address] RoadDublin [place] [id number] Valproic Acid (Depakote),S 105 ug/mL (Abnormal) Range: 50-100 Comments: Detection Limit = 4 <4 indicates None Detected . Toxicity may occur at levels of 100-500. Measurements of free unbound valproic acid may improve the assess- ment of clinical response.Patient drug level exceeds published reference range. Evaluateclinically for signs of potential toxicity. 37-Ckc-472323:39 VITAMIN B-12 (CYANOCOBALAMIN) Comments: PATIENT NOT FASTINGPERFORMED BY: [facility] [address] [place] [id number] (79933) Vitamin B12 1017 pg/mL (Abnormal) Range: 211-946 15-Vxy-945149:39 FERRITIN (06119) Comments: PATIENT NOT FASTINGPERFORMED BY: [facility] [address] EZ[address] [place] [id number] Ferritin, Serum 77 ng/mL (Normal) Range: 15-150 97-Gwy-507803:39 IRON (77496) Comments: PATIENT NOT FASTINGPERFORMED BY: [facility] [address] [place]awbone[place] [id number] Iron, Serum 32 ug/dL (Abnormal) Range: 35-155 66-Pmn-213476:39 CBC W/AUTO DIFF WBC Comments: PATIENT NOT FASTINGPERFORMED BY: CB [facility] [address]awbone[address] [place] [id number] Information: [id number],2ND ORDER NO DRAW F EE (50574) Immature Grans (Abs) 0.0 {x10E3/uL} (Normal) Range: [...] 3.77-5.28 WBC 6.2 {x10E3/uL} (Normal) Range: 3.4-10.8 41-Gha-544641:39 TSH (55727) Comments: PATIENT NOT FASTINGPERFORMED BY: [employer] Twdnfs1970 [facility] [id number] TSH 1.800 {uIU/mL} (Normal) Range: 0.450-4.500 91-Qci-673581:39 URINALYSIS, W/ MICRO (42242) Comments: PATIENT NOT FASTINGPERFORMED BY: [employer] Fhrbhf1111 [facility] [id number] Microscopic Examination See below: (Normal) Comments: Microscopic was indicated and was performed. Nitrite, Urine Negative (Normal) Urobilinogen,Semi-Qn 0.2 mg/dL (Normal) Range: 0.0-1.9 Bilirubin Negative (Normal) Occult Blood Negative (Normal) Ketones Negative (Normal) Glucose Negative (Normal) Protein Negative (Normal) WBC Esterase 1+ (Abnormal) Appearance Clear (Normal) Urine-Color Yellow (Normal) pH 6.5 (Normal) Range: 5.0-7.5 Specific [place] 1.013 (Normal) Range: 1.005-1.030 11-Upf-983177:39 METABOLIC PANEL, COMPREHENSIVE Comments: PATIENT NOT FASTINGPERFORMED BY: [facility]CoAtl[facility] CampusYbptws9272 [facility] [id number] (52181) ALT (SGPT) 5 [iU]/L (Normal) Range: 0-32 [...] Syncope Planned Observations CBC W/AUTO DIFF WBC (78316)Indication: Hypertension, benign On: :29 Request METABOLIC PANEL, COMPREHENSIVE (09562)Indication: Hypertension, benign On: :29 Request CBC with auto diff (10731)Indication: Elevated hemoglobin A1c On: 00-Fdm-155284:16 Request METABOLIC PANEL, COMPREHENSIVE (95786)Indication: Elevated hemoglobin A1c On: 99-Emy-001864:16 Request HGB A1C (60275)Indication: Elevated hemoglobin A1c On: 35-Cuo-300828:16 Request LIPID PANEL (54094)Indication: Other hyperlipidemia On: 05-Myq-630940:16 Request TSH (67482)Indication: Abnormal TSH On: 60-Ems-527430:09 Request TSH (THYROID STIMULATING HORMONE) (87218)Indication: Abnormal TSH On: 50-Xvq-133430:15 Request LIPID PANEL (11171)Indication: Other hyperlipidemia On: 13-Ajx-109414:14 Request CBC with auto diff (53215)Indication: Elevated hemoglobin A1c On: 54-Tke-322872:14 Request METABOLIC PANEL, COMPREHENSIVE (93178)Indication: Elevated hemoglobin A1c On: 26-Qhf-272346:14 Request HGB A1C (85680)Indication: Elevated hemoglobin A1c On: 67-Owz-123716:14 Request CBC W/AUTO DIFF WBC (26375)Indication: Anemia On: 38-Ngp-162031:30 Request CBC with auto diff (14743)Indication: Anemia On: 35-Kzi-350218:02 Request METABOLIC PANEL, COMPREHENSIVE (59294)Indication: Impaired Fasting Glucose (Renamed from Elevated fasting blood sugar) On: 36-Ynr-448668:02 Request TSH (44099)Indication: Abnormal TSH On: 04-Dvk-507802:01 Request SED RATE ERYTHROCYTE (33185)Indication: Anemia On: :58 Request C-REACTIVE PROTEIN (68283)Indication: Anemia On: :58 Request FOLIC ACID SERUM (13059)Indication: Anemia On: :58 Request VITAMIN B-12 (CYANOCOBALAMIN) (35353)Indication: Anemia On: :58 Request IGA/IGD/IGG/IGM-EACH (28787)Indication: Anemia On: :33 Request CBC W/AUTO DIFF WBC (04587)Indication: Impaired Fasting Glucose (Renamed from Elevated fasting blood sugar) On: : Request METABOLIC PANEL, COMPREHENSIVE (66320)Indication: Impaired Fasting Glucose (Renamed from Elevated fasting blood sugar) On: : Request Vitamin D Hydroxy (75519)Indication: Other osteoporosis On: : Request CBC with auto diff (09001)Indication: Anemia On: :22 Request TSH (THYROID STIMULATING HORMONE) (10807)Indication: Abnormal TSH On: :21 Request HGB A1C (96162)Indication: Impaired Fasting Glucose (Renamed from Elevated fasting blood sugar) On: : Request serum immunofixation (89253)Indication: Anemia On: : Request urine immunofixation (65955)Indication: Anemia On: : Request LIPID PANEL (83748)Indication: Other hyperlipidemia On: :15 Request METABOLIC PANEL, COMPREHENSIVE (93347)Indication: Hypertension, benign On: 43-Mhl-898903:14 Request LIPID PANEL (59160)Indication: Fibromyalgia (Renamed from Diffuse myofascial pain syndrome) On: 63-Yib-879487:14 Request TSH (THYROID STIMULATING HORMONE) (02393)Indication: Abnormal TSH On: :15 Request HGB A1C (96398)Indication: Impaired Fasting Glucose (Renamed from Elevated fasting blood sugar) On: :15 Request CBC with auto diff (45074)Indication: Hypertension, benign On: :15 Request METABOLIC PANEL, COMPREHENSIVE (51404)Indication: Hypertension, benign On: :15 Request LIPID PANEL (90229)Indication: Other hyperlipidemia On: :14 Request ASSAY, TROPONIN, QUANTITATIVE (aka Troponin I) (97936)Indication: Atypical chest pain On: 7-Pgv-018724:02 Request TSH (10418)Indication: Abnormal TSH On: 5-Wxu-450647:56 Request CBC WITH MANUAL DIFF (02509)Indication: Other specified nutritional anemias On: 9-Mvi-232371:48 Request Comments: 1 month TSH (THYROID STIMULATING HORMONE) (38044)Indication: Hypertension, benign On: :15 Request Iron (91757)Indication: Anemia On: 2-Fsi-140895:59 Request METABOLIC PANEL, COMPREHENSIVE (86592)Indication: Other osteoporosis On: 9-Fen-654872:01 Request Vitamin D Hydroxy (63750)Indication: Other osteoporosis On: :37 Request LIPID PANEL (58081)Indication: Other hyperlipidemia On: :36 Request HGB A1C (25938)Indication: Impaired Fasting Glucose (Renamed from Elevated fasting blood sugar) On: :35 Request MICROALBUMIN: CREATININE RATIO (59643) AND (26838)Indication: Impaired Fasting Glucose (Renamed from Elevated fasting blood sugar) On: :35 Request Metabolic Panel, Comprehensive (70053)Indication: Gastroenteritis On: 86-Sya-928005:09 Request CBC, Platelets & Auto Diff (34008)Indication: Gastroenteritis On: 26-Oyd-079310:09 Request Sed Rate Erythrocyte (40991)Indication: Gastroenteritis On: 92-Psr-237803:09 Request CBC WITH MANUAL DIFF (14629)Indication: Anemia On: :12 Request Comments: 6 weeks TSH (69552)Indication: Abnormal TSH On: 5-Fpm-662264:11 Request Comments: 6 weeks VITAMIN B-12 (CYANOCOBALAMIN) (39351)Indication: Anemia On: :39 Request TSH (27181)Indication: Abnormal TSH On: 92-Gqg-98106:40 Request CBC W/AUTO DIFF WBC (80188)Indication: Anemia On: 85-Zfi-95943:40 Request TSH (47335)Indication: Abnormal TSH On: 38-Yed-70318:25 Request Comments: ADD ON METABOLIC PANEL, COMPREHENSIVE (99053)Indication: Impaired Fasting Glucose (Renamed from Elevated fasting blood sugar) On: 43-Aii-849192:43 Request Anti-TPO Antibody (69248)Indication: Abnormal TSH On: :42 Request T4, FREE (THYROXINE) (59565)Indication: Abnormal TSH On: :42 Request T3, FREE (TRIDOTHYRONINE) (18854)Indication: Abnormal TSH On: :42 Request RHEUMATOID FACTOR-QUANT ([id number])Indication: Chronic right shoulder pain On: :32 Request SED RATE ERYTHROCYTE ([id number])Indication: Chronic right shoulder pain On: :32 Request C-REACTIVE PROTEIN ([id number])Indication: Chronic right shoulder pain On: :32 Request CBC W/AUTO DIFF WBC ([id number])Indication: Hypertension, benign On: :31 Request METABOLIC PANEL, COMPREHENSIVE ([id number])Indication: Hypertension, benign On: :31 Request LIPID PANEL ([id number])Indication: Other hyperlipidemia On: :31 Request TSH ([id number])Indication: Chest pain at rest On: [id number]:31 Request HGB A1C (04589)Indication: Impaired Fasting Glucose (Renamed from Elevated fasting blood sugar) On: 2-Trf-828155:00 Request CBC with auto diff ([id number])Indication: Impaired Fasting Glucose (Renamed from Elevated fasting blood sugar) On: 0-Slo-900615:00 Request METABOLIC PANEL, COMPREHENSIVE ([id number])Indication: Impaired Fasting Glucose (Renamed from Elevated fasting blood sugar) On: 9-Lfj-706855:00 Request LIPID PANEL ([id number])Indication: Other hyperlipidemia On: 5-Jeo-026472:00 Request VITAMIN B-12 (CYANOCOBALAMIN) ([id number])Indication: Other specified nutritional anemias On: 6-Kre-344819:59 Request Vitamin D Hydroxy (68574)Indication: Other osteoporosis On: :59 Request CBC (AUTO) ([id number])Indication: Other osteoporosis On: :48 Request Vitamin D Hydroxy ([id number])Indication: Other osteoporosis On: :48 Request METABOLIC PANEL, COMPREHENSIVE ([id number])Indication: Other hyperlipidemia On: :48 Request LIPID PANEL ([id number])Indication: Other hyperlipidemia On: :48 Request SED RATE ERYTHROCYTE ([id number])Indication: Chest pain, unspecified type On: :39 Request Comments: stat C-REACTIVE PROTEIN ([id number])Indication: Chest pain, unspecified type On: :39 Request Comments: stat CBC W/AUTO DIFF WBC ([id number])Indication: Chest pain, unspecified type On: :39 Request Comments: stat Hemoglobin Glyclated (HGB A1C) ([id number])Indication: Impaired Fasting Glucose (Renamed from Elevated fasting blood sugar) On: 04-Hqz-141646:50 Request URINALYSIS, W/ MICRO ([id number])Indication: Hypertension, benign On: 16-Gkf-254654:49 Request CBC with auto diff ([id number])Indication: Other specified nutritional anemias On: 99-Muk-208418:49 Request METABOLIC PANEL, COMPREHENSIVE ([id number])Indication: Other specified nutritional anemias On: 79-Gej-331937:49 Request LIPID PANEL ([id number])Indication: Other hyperlipidemia On: 10-Hab-518460:49 Request CBC W/AUTO DIFF WBC ([id number])Indication: Other specified nutritional anemias On: :24 Request METABOLIC PANEL, COMPREHENSIVE ([id number])Indication: Other hyperlipidemia On: 63-Shd-260525:24 Request LIPID PANEL ([id number])Indication: Other hyperlipidemia On: 40-Szk-292009:24 Request IRON ([id number])Indication: Other specified nutritional anemias On: 8-Iil-918185:37 Request Planned Encounters Medical; [facility] [...] DIGITAL TOMOSYNTHESIS OF On: 17-Nov-2017 Intent BREAST ([id number])By: Fast DO, Enrike A Fast DO, Enrike A MRI OF THORACIC SPINE WITHOUT On: 13-Aug-2017 Intent CONTRAST ([id number])By: Fast DO, Enrike A Fast DO, Enrike A MRI LUMBAR SPINE W/O CONTRAST On: 13-Aug-2017 Intent ([id number])By: Fast DO, Enrike A Fast DO, Enrike A INJECTION, PROLIA ([id number])By: Fast On: 26-Jul-2017 Intent DO, Enrike A Fast DO, Enrike A Comments: Prolia prefilled syringe 60mg/mlLot:[id number]:10/2019L arm SQPt tolerated wellMLONG ,CUSTOM TAILOR APPRENTICE Radiology - Lumbar SpineBy: Fast DO, On: 09-Jun-2017 Intent Enrike A Fast DO, Enrike A Radiology - Thoracic SpineBy: Fast On: 09-Jun-2017 Intent DO, Enrike A Fast DO, Enrike A MRI OF BRAIN WITH AND WITHOUT On: 13-Apr-2017 Intent CONTRAST ([id number])By: Fast DO, Enrike A Fast DO, Enrike A ELECTROCARDIOGRAM, COMPLETE (ECG) On: 13-Apr-2017 Intent ([id number])By: Fast DO, Enrike A Fast DO, Comments: [...] DIGITAL TOMOSYNTHESIS OF On: 30-Sep-2016 Intent BREAST ([id number])By: Fast DO, Enrike A Comments: end of oct Fast DO, Enrike A CT - Chest (Without Contrast)By: On: 30-Sep-2016 Intent Fast DO, Enrike A Fast DO, Enrike A Cartoid DopplerBy: Fast DO, Enrike A On: 04-Sep-2016 Intent Fast DO, Enrike A DEXA SCAN AXIAL SKELETON ([id number])By: On: 04-Sep-2016 Intent Fast DO, Enrike A Fast DO, Enrike A Comments: mid september INJECTION, PROLIA ([id number])By: Fast On: 26-Aug-2016 Intent DO, Enrike A Fast DO, Enrike A Comments: prolialot:[id number]:12ite:lt subqroute:subqdose:60mg/mlD.ARNOLDO Ardon ELECTROCARDIOGRAM, COMPLETE (ECG) On: 22-Jul-2016 Intent ([id number])By: Fast DO, Enrike A Fast DO, Comments: ekg showed normal sinus rhythym, normal axis, no acute st/t wave changes Enrike A Cartoid DopplerBy: Fast DO, Enrike A On: 25-May-2016 Intent Fast DO, Enrike A Comments: bilateral INFUSION, NORMAL SALINE SOLUTION , On: 09-Apr-2016 Intent 1000 CC (Special Coverage Instructions Apply. See MCM: 2049) ([id number])By: Madyson Montiel MD ELECTROCARDIOGRAM, COMPLETE (ECG) On: 12-Feb-2016 Intent ([id number])By: Fast DO, Enrike A Fast DO, Comments: ekg showed normal sinus rhythym, normal axis, no acute st/t wave changes Enrike A CT - Chest (Without Contrast)By: On: 12-Feb-2016 Intent Fast DO, Enrike A Fast DO, Enrike A Flu Vaccine (Quadrivalent) 97822Nc: On: 12-Feb-2016 Intent Fast DO, Enrike A Fast DO, Enrike A Comments: FLUlot: [id number]:Lt deltoidroute:IMdose:.5mlARNOLDO WALLACE ADMINISTRATION OF INFLUENZA VIRUS On: 12-Feb-2016 Intent VACCINE ([id number])By: Fast DO, Enrike A Fast DO, Enrike A MAMMOGRAM, SCREENING, BOTH BREAST On: 13-Nov-2015 Intent ([id number])By: Fast DO, Enrike A Fast DO, Enrike [...] Intent Fast DO, Enrike [place] ([id number])By: Reva, On: 06-Mar-2015 Intent [place] Comments: Zosterlot:[id number]:01/26/16ite:lt subqroute:subqDEMICK, SMA PNEUM VAC ADLT/IMUMNOSPR, SBC/INTRM On: 20-Feb-2015 Intent ([id number])By: Visit, Nurse Comments: Pnuemovaxlot:[id number]:10/30/16site:lt deltoidroute:IMDose:.5mlDEMICK, SMA Flu Vaccine (Quadrivalent) [id number]: On: 11-Feb-2015 Intent Fast DO, Enrike A Fast DO, Enrike A Comments: Lot #:[id number] date: 08/2015Amount given:prefilled syringeSite given:L Dltd, IMGiven by: MARGOTH Garibay and ABN signed ADMINISTRATION OF INFLUENZA VIRUS On: 11-Feb-2015 Intent VACCINE ([id number])By: Fast DO, Enrike A Fast DO, Enrike A MAMMOGRAM, SCREENING, BOTH BREAST On: 25-Sep-2014 Intent ([id number])By: Fast DO, Enrike A Fast DO, Enrike [...] 17-Apr-2014 Intent CHEST WITH AND WITHOUT CONTRAST ([id number])By: Enrike Jaimes DO A Fast DO, Enrike A CT - Brain/HeadBy: Fast DO, Enrike A On: 16-Apr-2014 Intent Fast DO, Enrike A Doppler Ultrasound OtherBy: Fast DO, On: 16-Apr-2014 Intent Enrike A Fast DO, Enrike A EKG ([id number])By: Matt MCDUFFIE Enrike A On: 16-Apr-2014 Intent [...] Advance Directives Name Dates Details Immunization Registry [place] - Effective on 02/22/2018. Effective: 22-Feb-2018 Expiration [...] for copd/cough - and was back [facility] they monitoring her = bp is [...] The patient does have durable power of document review attorney and l iving will (she thinks). The patient has noticed staying at home rather than doing something new or going out and lack of energy. Other providers contributing to the patient's care are floor tech (Dr. Cota), last putter away (Dr. Pop) and other: (Crm Solution Architect- Dr. Villa sees eye dr mann.). Note [...] Limb swelling), Fatigue [facility] Payers [place] [employer]/Medicare Adv Olivia LOPEZ; a guarantor
--- OUTSIDE RECORDS SUMMARY | 2018-04-13 15:13 | XMS RPT_ITS | Continuity of Care Document ---
:1945 Author Organization [facility] Address [address] [facility] [address] [place] [address] Phone Care Team Providers Name Role Phone Enrike Jaimes DO Unavailable Cipriano JC, Mike Avelar Unavailable Dayron Monique Unavailable Domenic Navarrete Dovray Unavailable Steven Carlisle MD Unavailable [facility] Unavailable Phong Graham Unavailable Mao Benitez [...] days Quantity: 90 {Tablet} Refills: 3 Ordered:09-Oct-2017 Fast DOFaviocatalina HUSAINnj MCDUFFIE, Enrike A Start : 09-Oct-2017 Active ASPIRIN LOW DOSE, 81MG (Oral Tablet) 1 tab daily (81 MG) Active Atorvastatin Calcium 80 MG Oral Tablet 1 (one) Tablet daily for 0 days Quantity: 90 {Tablet} Refills: 3 Ordered:22-Feb-2018 Matt MCDUFFIE Enrike LISHAnj DO, Enrike A Start : 22-Feb-2018 Active CALCIUM, 500MG (Oral Tablet) 2 tabs daily (500 MG) Active Carvedilol 25 MG Oral Tablet 1/2 Tablet bid for 90 days Quantity: 90 {Tablet} Refills: 3 Ordered:25-Jan-2017 Matt MCDUFFIEFaviocatalina HUSAINnj MCDUFFIE, Enrike A Start : 25-Jan-2017 Active Dexilant 60 MG Oral Capsule Delayed Release 1 (one) Capsule DR daily for 90 days Quantity: 90 {Capsule} Refills: 3 Ordered:26-Jan-2018 Mao Benitez Start : 26-Jan-2018 Active DULoxetine HCl 60 MG Oral Capsule Delayed Release Particles 1 (one) Capsule qd in evening for 0 days Quantity: 90 {Capsule} Refills: 3 Ordered:22-Feb-2018 Matt MCDUFFIEFaviocatalina HUSAINnj MCDUFFIE, Enrike A Start : 22-Feb-2018 Active IPRATROPIUM BROMIDE, 0.06% (Nasal Solution) 2 sprays each nostril daily (0.06 %) Active Isosorbide Dinitrate 30 MG Oral Tablet 1 tab Tablet daily for 0 days Quantity: 90 {Tablet} Refills: 3 Ordered:22-Feb-2018 Matt MCDUFFIEFaviocatalina HUSAINnj MCDUFFIE Enrike A Start : 22-Feb-2018 Active Levothyroxine Sodium 25 MCG Oral Tablet 1 (one) Tablet qd for 0 days Quantity: 114 {Tablet} Refills: 3 Ordered:22-Feb-2018 Faviocatalina HUSAINnj MCDUFFIE, Enrike A Start : 22-Feb-2018 Active Comments:2 [...] 12-Jul-2017 Active Comments:Pt gets funding thru the [employer] so send a bill to either them or the pt and then they will is-[id number]-diw 07/28/16 RaNITidine HCl 300 MG Oral Tablet [...] 500MG (Oral Tablet) 1 (one) Tablet daily [id number] for 14 days Quantity: 14 {Tablet} Refills: [...] : 26-Mar-2017 Inactive Comments:take with food in [facility] meloxicam while on this Promethazine HCl 12.5 [...] home with meds and afib [facility]. i went to house, called in [employer], told her brat diet slowly, my nurse [...] Visit Report Result: Comments: See Note; NOTES: [facility] [address] [place] [address] [place] [address] OFFICE VISIT Date of Service: 01/25/18 1145 MR#: [id number] Acct: [id number] Name: LUPE LOPEZ Rep #: [id number] : 1945 From: Red Spaulding MD Age/Sex: [...] Iron supplements with Vitamin C o r Mora juice. Check stool for FOBT. RTC 6 [...] Chronic Code Visit Office Visits / Consults: 79579 OV L3 Est 01/25/18 1153 <Electronically signed by Red Spaulding MD> Date Red Spaulding MD Cosigner Signature: Date (if applicable) CC: Enrike Jaimes DO 23-Dec-2017 Cerv Spine 2 or 3 Views Result: Comments: See Note; NOTES: [facility] Imaging Services [address] [place] [address] Cerv Spine 2 or 3 Views MR#: [id number] Acct: [id number] Name: LUPE LOPEZ Rep #: [id number] : 1945 F 72 From: Ming Odonnell MD PCP: Enrike Jaimes DO Status: REG CLI Study: Cerv Spine 2 or 3 Views Date of Exam: 12/23/17 Exam# [id number] Ordering Dr: Karla Berry FACILITY MAINTENANCE MANAGER-C STUDY: X-RAY - C ERVICAL SPINE REASON [...] Fax CC: Enrike Jaimes DO; Karla Berry Lace Stripper: Signed 23-Dec-2017 Thoracic Spine 2 Views Result: Comments: See Note; NOTES: [facility] Imaging Services [address] [place] [address] Thoracic Spine 2 Views MR#: [id number] Acct: [id number] Name: LUPE LOPEZ Rep #: [id number] : 1945 F 72 From: Ming Odonnell MD PCP: Enrike Jaimes DO Status: REG CLI Study: Thoracic Spine 2 Views Date of Exam: 12/23/17 Exam# [id number] Ordering Dr: Karla Berry STUDY: X-RAY - [...] CC: Enrike Jaimes DO; Karla LOPEZ Prebish Lace Stripper: Signed 11-Dec-2017 Carotid Duplex Ultrasound Result: Comments: See Note; NOTES: [facility] Cardiovascular Services [address] [place] [address] Carotid Duplex Ultrasound 12/10/17 1013 MR#: [id number] Acct: [id number] Name: LUPE BOOGIE Rep #: [id number] : 1945 72 From: Brice Murphy MD Attending Dr: Enrike Jaimes DO Status: REG CLI Ordering Dr: Enrike Jaimes DO Date: 12/10/17 Location: [facility] Sex: F C Admitted: Reason For Study: [...] the left vertebral artery. Procedure Carotid Duplex 15244. Exam performed in department. Interpretation Summary Mild (<50%) stenosis right extracranial inter nal carotid. Mild (<50%) stenosis left extracranial internal carotid. Flow within the vertebral arteries is antegrade bilaterally. Ordering Physician: Enrike Jaimes Referring Physician: Enrike Jaimes Performed By: Riaz Ashley RVT and Student 12/11/17 1406 Date Brice Murphy MD CC: Enrike Jaimes DO Date Dictated: 12/10/17 1013 Date Transcribed: 12/11/17 1406 Lace Stripper: Signed 10-Dec-2017 SCREENING MAMM (CAD), BILAT Result: Comments: See Note; NOTES: [facility] Imaging Services [address] [place] [address] SCREENING MAMM (CAD), BILAT MR#: [id number] Acct: [id number] Name: LUPE LOPEZ Rep #: [id number] : 1945 F 72 From: Johnny Gilman MD PCP: Enrike Jaimes DO Status: REG CLI Study: SCREENING MAMM (CAD), BILAT Date of Exam: 12/10/17 Exam# [id number] Ordering Dr: Enrike Jaimes DO MAMM OGRAPHY [...] will be sent to the patient by [facility] within 30 days. Approximately 10% of breast cancers are not detected by mammography. A normal mammogram should not delay biopsy of a clinically suspicious abnormality. [id number] Electronical ly Signed: Johnny Gilman MD at 13:14 EDT Tel [phone], Service support , CC: Enrike Jaimes DO Lace Stripper: Signed 30-Nov-2017 Pulmonary Visit Report Result: Comments: See Note; NOTES: [facility] [address] [place] [address] OFFICE VISIT Date of Service: 11/30/17 MR#: [id number] Acct: [id number] Name: LUPE BOOGIE Rep #: [id number] : 1945 Provider: Merlin Pop MD Age/Sex: 72/F [place] [facility] Status: Signed Assessment AND [...] Orders: Medications Discontinued: azelastine admini ster into zakr937.5 mcg (0.14 mL) Intranasal BIDJ30.2 Merlin Pop MD nostril Discontinued Reason: Pt no longer taking HPI 6 M FU: Chief Complaint: Chronic cough Details: [facility] 72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 This patient may have a combination of rosa maria r and electronic documentation or all paper documentation. All documentation is viewable within the e-chart portion of In[facility] for each patient visit. 27-Aug-2017 Spine Lumbar (Routine) Result: Comments: See Note; NOTES: [facility] Imaging Services [address] [place] [address] Spine Lumbar (Routine) MR#: [id number] Acct: [id number] Name: CHASE LOPEZCatalina Rep #: [id number] : 1945 F 72 From: Carlos Pizano PCP: Enrike Jaimes DO Status: REG CLI Study: Spine Lumbar (Routine) Date of Exam: 08/25/17 Exam# [id number] Ordering Dr: Enrike Jaimes DO STUDY: MRI [...] suppo rt , CC: Enrike Jaimes DO Lace Stripper: Signed 11-Aug-2017 Re-Evaluation - PT (1) Result: Comments: See Note; NOTES: [facility] [address] [place] [address]. [address] [place] [address] Fax REEVALUATION / MEDICARE RECERTI FICATION PHYSICAL THERAPY MR#: [id number] Acct: [id number] Name: LUPE LOPEZ Rep #: [id number] : 1945 72 From: Shanon Ferrara MPT Referring DrBrooke: Enrike Jaimes DO Status: REG RCR Insurance: [facility] MEDICARE PPO SELF PAY INSURANCE Enrike Fast, DO, It has been my pleasure to treat LUPE LOPEZ over the last 7 visits for LOW BACK PAIN. Please see the progress note below for an update on [facility] physical therapy plan of care! Subjective: [...] do not hesitate to contact me at [phone] by phone or if you have questions or concerns regarding this new plan of care! Sincerely, Shanon Ferrara &#60 ;Electronically signed by Shanon Ferrara MPT> 08/11/17 1913 CC: Enrike Jaimes DO Signed For Medicare only, by signing this I certify the plan of care. Physicians Signature Date 27-Jul-2017 Oncology Visit Report Result: Comments: See Note; NOTES: [facility] [address] [place] [address] OFFICE VISIT Date of Service: 07/27/17 1128 MR#: [id number] Acct: [id number] Name: LUPE LOPEZ Rep #: [id number] : 1945 From: Red Spaulding MD Age/Sex: [...] continue Iron supplements with Vitamin C or Mora juice. RTC 6 months with CBC, CMP, Iron studies. Wy dications: Prescriptions This Visit Medication Instructions Recorded Meloxicam [Mobic] 15 mg PO DAILY 06/16/16 Rivaroxaban [Xarelto] 20 mg PO DAILY 06/29/16 Primary Care Provider: Enrike Jaimes DO Refe rring Provider: - Problem List (1) Iron deficiency Status: Resolved Code Visit Office Visits / Consults: 79070 OV L3 Est 07/27/17 1135 <Electronically signed by Red Spaulding MD> Date Red Spaulding MD Cosigner Signature: Date (if applicable) CC: 15-Jul-2017 Stress Report Result: Comments: See Note; NOTES: [facility] Cardiovascular Services [address] [place] [address] MR#: [id number] Acct: [id number] Name: LUPE LOPEZ Rep #: [id number] : [birth year] 72 From: Mike Cota MD [...] %. This note was g enerated with VSE EV[employer] ROSS[employer]ation software. It may contain incorrect words, spelling, and punctuation that were not noted in checking the note before signing. 07/15/17 1311 <Electronically s igned by Mike Cota MD> Date Mike Cota MD CC: Enrike Jaimes DO; Mike Cota MD Date Dictated: 07/15/17 130 Date Transcribed: 07/15/17 130 Lace Stripper: PM Signed 08-Jul-2017 Inital Evaluation (1) - PT Result: Comments: See Note; NOTES: [facility] [place], [place] [address] Fax REHABILITATION SERVICES INITIAL EVALUATION MR#: [id number] Acct: [id number] Name: LUPE LOPEZ Rep #: [id number] [...] to be FAXED BACK to us at [phone] for Medicare purposes. Please let me know [...] Visit Report Result: Comments: See Note; NOTES: [facility] [address] [place] [address] OFFICE VISIT Date of Service: 07/05/17 MR#: [id number] Acct: [id number] Name: LUPE LOPEZ Rep #: [id number] : 1945 Provider: Mike Cota MD Age/Sex: 72/F [place] [facility] Status: Signed HPI HPI Details: LUPE LOPEZ, [...] Her previous diagnostic cardiac cathete rization from [facility] from 05/03/2009 is as noted below. ASSESSMENT: 1. Mild to moderate coronary atherosclerosis, non-flow limiting by angiography. 2. Presered left [id number] systolic a nd diastolic function. CLINICAL CORRELATION: This Is a 64-year-old wtio presents with angina ha1ng atypical features, she has nonflowIlmTting disease hr which aggressiw medical therapy is warranted Incl uding aspirin, beta jonn, DAPHNEY Inhibitor, and statin therapy. 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 She will also follow with her software sales manager based on her underlying pulmonary disease process [...] disease) I25.10 Coronary Disease-Associated Arter y/Lesion type: kiowa tribe artery Hyperlipidemia, unspecified hyperlipidemia type E78.5 Hyperlipidemia type: unspecified Essential hypertension I10 Hypertension type: essential hypertension Chest pain, unspe cified type R07.9 Chest pain type: unspecified Coding Level of Care Code Off vis,est,level 4 Diagnoses Paroxysmal atrial fibrillation I48.0 CAD (coronary artery disease) I25.10 Coronary Disease-Assoc iated Artery/Lesion type: ki[place] tribe artery Hyperlipidemia, unspecified hyperlipidemia type E78.5 Hyperlipidemia type: unspecified Essential hypertension I10 Hypertension type: essential hypertension Chest pain, unspecified type R07.9 Chest pain type: unspecified 07/05/17 1123 <Electronically signed by Mike Cota MD> Date Mike washburn MD Cosigner Signature: Date (if applicable) CC: Enrike Jaimes DO 05-Jul-2017 12 Lead EKG performed [place] [facility] Result: Comments: See Note; NOTES: [facility] [address] [place] [address] 12 Lead EKG performed by [facility] 07/05/17 1033 MR#: [id number] Acct: [id number] Name: LUPE SANDOVAL Rep #: [id number] : 1945 72 From: Mike Cota MD Attending Dr: Mike Cota MD Status: DEP AMB Ordering Dr: Mike Cota MD Date: 07/05/17 Location: [facility] Sex: F C Admitted: BMS/12 Lead EKG performed by [facility] ECG Report Interpretation Sinus Bradycardia -First degree A-V block Poor R wave progressionElectronically signed on 2017 at 11:45 by Mike Cota 07/05/17 1146 Date Mike Cota MD CC: Enrike Jaimes DO Date Dictated: 07/05/171032 Date Transcribed: 07/05/171032 Lace Stripper: PM Signed 16-Jun-2017 Pulmonary Visit Report Result: Comments: See Note; NOTES: [facility] [address] [facility] [place] [address] OFFICE VISIT Date of Service: 06/16/17 MR#: [id number] Acct: [id number] Name: LUPE BOOGIE Rep #: [id number] : 1945 Provider: Kirsten Padilla Age/Sex: 72/F [place] [facility] Status: Signed Assessment AND [...] symptoms, rested and overcame the illness w [facility] intervention. 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) Moderate [...] J30.2 Allergic rhinitis trigger: unspe cified 06/16/17 7106 <Electronically signed by Kirsten LOPEZ> Date Kirsten Simer Signature: Date ___ (if applicable) CC: Enrike Jaimes DO 09-Jun-2017 L/S Spine Min 4 Views Result: Comments: See Note; NOTES: [facility] Imaging Services [address] [place] [address] L/S Spine Min 4 Views MR#: [id number] Acct: [id number] Name: LUPE LOPEZ Rep #: [id number] : 1945 F 72 From: Brennan Mike DO PCP: Enrike Jaimes DO Status: REG CLI Study: L/S Spine Min 4 Views Date of Exam: 06/09/17 Exam# [id number] Ordering Dr: Enrike Jaimes DO STUDY: X-RAY [...] Brennan Mike DO at 16:29 EDT Tel [phone], Service support , Fax CC: Enrike Jaimes DO Lace Stripper: Signed 09-Jun-2017 Thoracic Spine 3 Views Result: Comments: See Note; NOTES: [facility] Imaging Services [address] [place] [address] Thoracic Spine 3 Views MR#: [id number] Acct: [id number] Name: LUPE LOPEZ Rep #: [id number] : 1945 F 72 From: Jose Antonio Jensen PCP: Enrike Jaimes DO Status: REG CLI Study: Thoracic Spine 3 Views Date of Exam: 06/09/17 Exam# [id number] Ordering Dr: Enrike Jaimes DO STUDY: X-RAY [...] suppo rt , CC: Enrike Jaimes DO Lace Stripper: Signed 19-Apr-2017 Brain W/WO Contrast Result: Comments: See Note; NOTES: [facility] Imaging Services [address] [place] [address] Brain W/WO Contrast MR#: [id number] Acct: [id number] Name: LUPE LOPEZ Rep #: [id number] : 1945 F 72 From: Steven Ratliff MD PCP: Enrike Jaimes DO Status: REG CLI Study: Brain W/WO Contrast Date of Exam: 04/19/17 Exam# [id number] Ordering Dr: Enrike Jaimes DO STUDY: MRI [...] Service support , CC: Enrike Jaimes DO Lace Stripper: Signed 05-Jan-2017 Hepatobilliary Img w/Pharm Int Result: Comments: See Note; NOTES: [facility] Imaging Services [address] [place] [address] Hepatobilliary Img w/Pharm Int MR#: [id number] Acct: [id number] Name: LUPE LOPEZ Rep # : [id number] : 1945 F 71 From: Dom Sorto DO PCP: Enrike Jaimes DO Status: REG CLI Study: Hepatobilliary Img w/Pharm Int Date of Exam: 01/05/17 Exam# [id number] Ordering Dr: Enrike Jaimes DO CLI NICAL: [...] Service support , CC: Enrike Jaimes DO Lace Stripper: Signed 23-Dec-2016 Gallbladder Result: Comments: See Note; NOTES: [facility] Imaging Services [address] [place] [address] Gallbladder MR#: [id number] Acct: [id number] Name: LUPE LOPEZ Rep #: [id number] : F 71 From: Terri Dash MD PCP: Enrike Jaimes DO Status: REG CLI Study: Gallbladder Date of Exam: 12/23/16 Exam# [id number] Ordering Dr: Enrike Jaimes DO US Gallbladder [...] Service support , CC: Enrike Jaimes DO Lace Stripper: Signed 19-Nov-2016 SCREENING MAMM (CAD), BILAT Result: Comments: See Note; NOTES: [facility] Imaging Services [address] [place] [address] SCREENING MAMM (CAD), BILAT MR#: [id number] Acct: [id number] Name: LUPE LOPEZ Rep #: [id number] : 1945 F 71 From: Johnny Gilman MD PCP: Enrike Jaimes DO Status: REG CLI Study: SCREENING MAMM (CAD), BILAT Date of Exam: 11/19/16 Exam# [id number] Ordering Dr: Enrike Jaimes DO MAMM OGRAPHY [...] Johnny Gilman MD at 11:14 EDT Tel [phone], Service support , CC: Enrike Jaimes DO Lace Stripper: Signed 17-Nov-2016 6 Minute Walk Test Result: Comments: See Note; NOTES: [facility] Pulmonary Services/Neurology [address] [place] [address] MR#: [id number] Acct: [id number] Name: LUPE LOPEZ Rep #: [id number] : 04/14/1944 71 From: Merlin Pop MD Referring Dr: Kirsten Padilla FACILITY MAINTENANCE MANAGER Date: Ordering Dr: Sex: F C Location: PSN PSN 6 Minute Walk Test - 6 Minute Walk Test 6 Minute Walk Test: 6 Minute Walk Test PS N:6-Minute Walk Test Start: 11/17/16 11:09 Freq: Status: Active Document 11/17/16 11:00 HG (Rec: 11/17/16 11:11 HG [id number]) 6 Minute Walk Test Date Performed 11/17/16 [...] CC: Date Dictated: 11/17/161548 Date Transcribed: 11/17/161548 Lace Stripper: Merlin Pop Signed 12-Nov-2016 Pulmonary Function Report Comp Result: Comments: See Note; NOTES: [facility] Pulmonary Services/Neurology [address] [place] [address] MR#: [id number] Acct: [id number] Name: LUPE LOPEZ Rep #: [id number] : 71 From: Merlin Pop MD Referring Dr: Kirsten Padilla FACILITY MAINTENANCE MANAGER Status: REG CLI Ordering Dr: Date: Location: [facility] Sex: F C COMPLETE PULMONARY FUNCTION TEST INTERPRETATION Brief HPI: Patient is a 71 year old female, currently under the care of myself, who presents to [facility] for complete pulmonary function tests secondary [...] Date Dictated: 11/12/16 1533 Date Transcribed: 11/12/161532 Lace Stripper: EDENILSON Signed 06-Oct-2016 Chest without Contrast Result: Comments: See Note; NOTES: [facility] Imaging Services [address] [place] [address] Verdana 4d Chest without Contrast MR#: [id number] Acct: [id number] Name: LUPE LOPEZ p #: [id number] : 1945 F 71 From: Sonam Hendricks MD PCP: Enrike Jaimes DO Status: REG CLI Study: Chest without Contrast Date of Exam: 10/06/16 Exam# [id number] Ordering Dr: Enrike Jaimes DO STUDY: CT [...] Sonam Hendricks MD at 23:59 EDT Tel [phone], Service support , CC: Enrike Jaimes DO Lace Stripper: Signed 29-Sep-2016 Dexa Bone Density Study (HP) Result: Comments: See Note; NOTES: [facility] Imaging Services [address] [place] [address] Verdana 4d Dexa Bone Density Study (HP) MR#: [id number] Acct: [id number] Name: BRAYDON LOPEZ Rep #: [id number] : 1945 F 71 From: Johnny Gilman MD PCP: nErike Jaimes DO Status: [facility] CLI Study: Dexa Bone Density Study (HP) Date of Exam: 09/29/16 Exam# [id number] Ordering Dr: Szymanski DO STUDY: DUAL ENERGY [...] Johnny Gilman MD at 9:38 EDT Tel [phone], Service support , CC: Enrike Jaimes DO Lace Stripper: Signed 19-Sep-2016 Carotid Duplex Ultrasound Result: Comments: See Note; NOTES: [facility] Cardiovascular Services [address] [place] [address] Carotid Duplex Ultrasound 09/18/16 1406 MR#: [id number] Acct: [id number] Name: LUPE BOOGIE Rep #: [id number] : 1945 71 From: Brice Murphy MD Attending Dr: Enrike Jaimes DO Status: REG CLI Ordering Dr: Enrike Jaimes DO Date: 09/18/16 Location: [facility] Sex: F C Admitted: Reason For Study: [...] the left vertebral artery. Procedure Carotid Duplex 12002. The exam was diagnostic. Exam performed in [facility]. Interpretation Summary Mild (<50%) stenosis right [...] Date Dictated: 09/18/16 1406 Date Transcribed: 09/19/16943 Lace Stripper: Signed 16-Sep-2016 PT D/C Summary (1) Result: Comments: See Note; NOTES: [facility] [place] [address] Fax REHABILITATION SERVICES DISCHAR GE SUMMARY MR#: [id number] Acct: [id number] Name: LUPE LOPEZ Rep #: [id number] [...] please feel free to call me at [phone]. Thank you for the referral of this patient. Sincerely, Shanon Ferrara <Electronically signed by Shanon Ferrara MPT> 09/16/16 1054 CC: Enrike Jaimes DO Signed 26-Aug-2016 Re-Evaluation - PT (1) Result: Comments: See Note; NOTES: [facility] [address] [place] [address]. [address] [place] [address] Fax REEVALUATION / MEDICARE RECERTI KALEN Juanito 4d PHYSICAL THERAPY MR#: [id number] Acct: [id number] Name: LUPE LOPEZ Rep #: [id number] : 1945 71 From: Shanon Ferrara MPT [...] do not hesitate to contact me at [phone] by phone or if you have questions or concerns reg arding this new plan of care! Sincerely, Shanon Ferrara <Electronically signed by Shanon Ferrara MPT> 08/26/16 1825 CC: Enrike Jaimes DO Signed For Medic are only, by signing this I certify the plan of care. Physicians Signature Date 28-Jul-2016 Inital Evaluation (1) - PT Result: Comments: See Note; NOTES: [facility] [place], [place] [address] Fax REHABILITATION SERVICES INITIAL EVALUATION MR#: [id number] Acct: [id number] Name: LUEP LOPEZ Rep #: [id number] : 1945 71 From: Shanon CASTILLO Referring Dr.: Enrike Jaimes DO Status: REG RCR Insurance: [employer] Patient's Visit Information LUPE LOEPZ is a 71 year old F referred [...] to be FAXED BACK to us at [phone] for Medicare purposes. Please let me know if there are questions or reza rns regarding this plan of care. Physician Signature: Date: <Electronically signed by Shanon Ferrara MPT> 07/28/16 1629 CC: Enrike Jaimes DO Signed For Medicare only, by signing this I certify the plan of care. Physicians Signature Date 08-Jul-2016 Oncology Progress Note Result: Comments: See Note; NOTES: [facility] Medical Records Department [address] [place] [address] Oncology Progress Note MR#: [id number] Acct: [id number] Name: LUPE LOPEZ Rep #: [id number] : 1945 71 From: Red Spaulding MD [...] folate. Red Spaulding MD T: NTS JOB: [id number] 07/08/16 1043 <Electronically signed by Red Spaulding MD> Date Red Spaulding MD Cosigner Signature (If Indicated): Date CC: Date Dictated: 06/20 Date Transcribed: 06/30/162251 Lace Stripper: Signed 21-Feb-2016 Chest without Contrast Result: Comments: See Note; NOTES: [facility] Imaging Services [address] [place] [address] Verdana 4d Chest without Contrast MR#: [id number] Acct: [id number] Name: LUPE LOPEZ p #: [id number] : 1945 F 71 From: Barrett Small MD PCP: Enrike Jaimes DO Status: REG CLI Study: Chest without Contrast Date of Exam: 02/21/16 Exam# [id number] Ordering Dr: Enrike Jaimes DO STUDY : [...] MD at 2:43 EST , Service support [phone], CC: Enrike Jaimes DO Lace Stripper: Signed 08-Dec-2015 Pulmonary Function Report Comp Result: Comments: See Note; NOTES: [facility] Pulmonary Services/Neurology [facility] [place] [address] Pulmonary Function Test (Comp) MR#: [id number] Acct: [id number] Name: Evelia LOPEZ Rep #: [id number] : 1945 70 From: Merlin Pop MD Referring Dr: Kirsten Padilla FACILITY MAINTENANCE MANAGER Status: REG CLI Ordering Dr: Kirsten Padilla FACILITY MAINTENANCE MANAGER-C Date: 12/06/15 Location: [facility] Sex: F C DATE OF S [...] patient's primary care physician T: NTS JOB: [id number] 12/08/15 0651 <Electronically signed by Merlin Pop MD> Date __ Merlin Pop MD CC: Merlin Pop MD; Kirsten Padilla; Enrike Jaimes DO Date Dictated: 12/07/15 1235 Date Transcribed: 12/07/15 1235 Lace Stripper: Signed 19-Nov-2015 Bilat Scrn Digital AND CAD Result: Comments: See Note; NOTES: [facility] Imaging Services [address] [place] [address] Verdana 4d Bilat Scrn Digital AND CAD MR#: [id number] Acct: [id number] Name: DYLAN LOPEZ Rep #: [id number] : 1945 F 70 From: Johnny Gilman MD PCP: Enrike Jaimes DO Status: REG CLI Study: Bilat Scrn Digital AND CAD Date of Exam: 11/19/15 Exam# [id number] Ordering Dr: Enrike Jaimes DO MAMMOGRAPHY - [...] delay biopsy of a clinically suspicious abnormality. [id number] Electronically Signed: Johnny Gilman MD at 8:15 ED T Tel [phone], Service support [phone], CC: Enrike Jaimes DO Lace Stripper: Signed 07-Oct-2015 Knee 4 or More Views Result: Comments: See Note; NOTES: [facility] Imaging Services [address] [place] [address] Verda 4d Knee 4 or More Views MR#: [id number] Acct: [id number] Name: LUPE LOPEZ Rep #: [id number] : 1945 F 70 From: Johnny Gilman MD PCP: Enrike Jaimes DO Status: REG CLI Study: Knee 4 or More Views Date of Exam: 10/07/15 Exam# [id number] Ordering Dr: Yamileth Jaimes DO STUDY: X-RAY [...] Johnny Gilman MD at 13:02 EDT Tel [phone], Service support [phone], RAD/Knee 4 or More Views IMPRESSION: Minimal joint effusion. Electronically Signed: Johnny Gilman MD at 13:02 EDT Tel [phone], Service support [phone], CC: Enrike Jaimes DO Lace Stripper: Signed 27-Aug-2015 PT D/C Summary (1) Result: Comments: See Note; NOTES: [facility] [address] [place] [address]. [address] [place], [place] [address] Fax REHABILITATION RVICES DISCHARGE SUMMARY MR#: [id number] Acct: [id number] Name: LUPE LOPEZ Rep #: [id number] : 1945 70 From: Domenic Ayala PT, Cert. MDT Referring DrBrooke: Enrike Jaimes DO Status: REG R CR Insurance: [employer] MEDICARE [facility] - PT D/C Summary It has [...] feel free to c all me at [phone]. Thank you for the referral of this patient. Sincerely, Domenic Ayala <Electronically signed by Domenic Ayala PT, Cert. JCT> 08/27/15 1406 CC: Enrike Jaimes DO Signed -Jul-2015 Inital Evaluation (1) - PT Result: Comments: See Note; NOTES: [facility] [address] [place] [address]. [address] [place] [address] Fax REHABILITATION SE RVICES INITIAL EVALUATION MR#: [id number] Acct: [id number] Name: LUPE LOPEZ Rep #: [id number] : 1945 70 From: Domenic Ayala PT, [...] to be FAXED BACK to us at [phone] for Medicare purposes. Please let me know [...] 5 Views Result: Comments: See Note; NOTES: [facility] Imaging Services [address] [place] [address] Verdana 4d Cerv Spine 4 or 5 Views MR#: [id number] Acct: [id number] Name: LUPE MCCARTHY Rep #: [id number] : 1945 F 70 From: Vu Hankins MD PCP: Enrike Jaimes DO Status: REG CLI Study: Cerv Spine 4 or 5 Views Date of Exam: 07/30/15 Exam# [id number] Ordering Dr: Szymanski DO STUDY: X-RAY - [...] MD at 17:12 EDT , Service support [phone], RAD/Cerv Spine 4 or 5 Views IMPRESSION: Diffuse oste openia with moderate cervical spondylosis. Electronically Signed: Vu Hankins MD at 17:12 EDT , Service support [phone], CC: Enrike Jaimes DO Lace Stripper: Signed 30-Jul-2015 Shoulder min 2 Views Result: Comments: See Note; NOTES: [facility] Imaging Services [address] [place] [address] Verdana 4d Shoulder min 2 Views MR#: [id number] Acct: [id number] Name: LUPE LOPEZ Rep #: [id number] : 1945 F 70 From: Vu Hankins MD PCP: Enrike Jaimes DO Status: REG CLI Study: Shoulder min 2 Views Date of Exam: 07/30/15 Exam# [id number] Ordering Dr: Enrike Jaimes DO STUDY: X-RAY [...] at 17:12 EDT Tel , Service support [phone], RAD/Shoulder min 2 Views IMPRESSION: Normal x-ray examination of the shoulder. Electronically Signed: Vu Hankins MD 07/29 at 17:12 EDT , Service support [phone], CC: Enrike Jaimes DO Lace Stripper: Signed 02-Jul-2015 Chest PA and Lateral Result: Comments: See Note; NOTES: [facility] Imaging Services [address] [place] [address] Verdana 4d Chest PA and Lateral MR#: [id number] Acct: [id number] Name: LUPE LOPEZ Rep #: [id number] : 1945 F 70 From: Johnny Gilman MD PCP: Enrike Jaimes DO Status: REG CLI Study: Chest PA and Lateral Date of Exam: 07/02/15 Exam# [id number] Ordering Dr: Yamileth Jaimes DO STUDY: X-RAY [...] Johnny Gilman MD at 11:24 EDT Tel [phone], Service support [phone], RAD/Chest PA and Lateral IMPRESSION: The previously seen right upper lobe infiltrate rome s resolved. No acute abnormality is seen at this time. Electronically Signed: Johnny Gilman MD at 11:24 EDT Tel [phone], Service support [phone], CC: Enrike Jaimes DO Lace Stripper: Signed 02-Jul-2015 ELECTROCARDIOGRAM, COMPLETE (ECG) (20949) Comments: ekg showed normal sinus rhythym, normal axis, no acute st/t wave changes sinus maggie Result: [MEASUREMENTS ANALYSIS] Date of Test: 07/02/2015 10:18:39; Heart Rate: 56; [place] Interval: 222; QRS: 100; QT Interval: 448; Corrected QT Interval (QTc): 441; P Wave [place]: 90; QRS Wave [place]: 6; T Wave [place]: 18; Blood Pressure: 156/64 [ECG DIAGNOSTIC STATEMENTS] Date of Test: 07/02/2015 10:18:39; Summary: Sinus Bradycardia -First degree A-V block Tessy = 222BORDERLINE RHYTHM 02-Jul-2015 Spirometry (94038) Comments: good effort and curve normal Result: 24-Jun-2015 Venous Duplex Lower Extremity Result: Comments: See Note; NOTES: [facility] Cardiovascular Services [address] [place] [address] Venous Duplex US - Ibrahima Extrem 06/24/15 1102 MR#: [id number] Acct: [id number] Name: LUPE LOPEZ Rep #: [id number] : 1945 70 From: Brice Murphy MD [...] Dictated: 06/24/15 1102 Date Transcribed: 06/24/15 1908 Lace Stripper: Signed 20-Jun-2015 CTA Chest W/WO Contrast Result: Comments: See Note; NOTES: [facility] Imaging Services [address] [place] [address] Verdana 4d CTA Chest W/WO Contrast MR#: [id number] Acct: [id number] Name: LUPE MCCARTHY Rep #: [id number] : 1945 F 70 From: Johnny Gilman MD PCP: Enrike Jaimes DO Status: REG ER Study: CTA Chest W/WO Contrast Date of Exam: 06/20/15 Exam# [id number] Ordering Dr: Sonam Colon MD STUDY: CTA [...] Johnny Gilman MD at 15:25 EDT Tel [phone], Service support [phone], CC: Enrike Jaimes DO; Sonam Sheth MD Lace Stripper: Signed 20-Jun-2015 Chest 1 View (Portable) Result: Comments: See Note; NOTES: [facility] Imaging Services [address] [place] [address] Verda 4d Chest 1 View (Portable) MR#: [id number] Acct: [id number] Name: LUPE MCCARTHY Rep #: [id number] : 1945 F 70 From: Johnny Gilman MD PCP: Enrike Jaimes DO Status: REG ER Study: Chest 1 View (Portable) Date of Exam: 06/20/15 Exam# [id number] Ordering Dr: Sonam Colon MD STUDY: X-RAY [...] Johnny Gilman MD at 13:07 EDT Tel [phone], Se rvice support [phone], RAD/Chest 1 View (Portable) IMPRESSION: Focal infiltration in the right upper lobe. Electronically Signed: Johnny Gilman MD at 13:07 EDT Tel [phone], Service support [phone], CC: Enrike Jaimes DO; Sonam Sheth MD Lace Stripper: Signed 20-Jun-2015 ELECTROCARDIOGRAM, COMPLETE (ECG) (89405) Result: [MEASUREMENTS ANALYSIS] Date of Test: 06/20/2015 10:36:19; Heart Rate: 61; [place] Interval: 216; QRS: 100; QT Interval: 426; Corrected QT Interval (QTc): 427; P Wave [place]: 62; QRS Wave [place]: 8; T Wave [place]: 28; Blood Pressure: 160/62 [ECG DIAGNOSTIC STATEMENTS] Date of Test: 06/20/2015 10:36:19; Summary: Sinus Rhythm WITHIN NORMAL LIMITS 15-Jun-2015 Echocardiogram Complete Result: Comments: See Note; NOTES: [facility] Cardiovascular Services [address] [place] [address] Echo Complete 06/12/15 1110 MR#: [id number] Acct: [id number] Name: LUPE PHILLIPS Rep #: [id number] : 1945 70 From: Mike Cota MD Attending Dr: Mike Cota MD Status: PRE CLI Ordering Dr: Mike Cota MD Date: 06/12/15 Location: [facility] Sex: F C Admit benjamin: Reason For Study: CAD/ASHD Procedure This was a 2D Doppler, Color Flow transthoracic echocardiogram. The exam was of adequate technical quality. Exam performed in department. PT did NOT take am HTN med, will take as soon as she gets home and monitor her BP this afternoon. Instructed to call [facility] if systolic BP does not [...] Dictated: 06/12/15 1110 Date Transcribed: 06/15/15 1226 Lace Stripper: Signed 13-Jun-2015 History and Physical Exam Result: Comments: See Note; NOTES: [facility] Medical Records Department [address] [place] [address] History and Physical 06/13/15 1251 MR#: [id number] Acct: [id number] Name: LUPE LOPEZ Rep #: [id number] : 1945 70 From: Jess Sparrow MD [...] surgery. 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 % (Auto) 11.5 H Eos % (Auto) [...] View (Portable) Result: Comments: See Note; NOTES: [facility] Imaging Services [address] [place] [address] Verdana 4d Chest 1 View (Portable) MR#: [id number] Acct: [id number] Name: LUPE MCCARTHY Rep #: [id number] : 1945 F 70 From: Vu Hankins MD PCP: Enrike Jaimes DO Status: REG ER Study: Chest 1 View (Portable) Date of Exam: 06/13/15 Exam# [id number] Ordering Dr: Jessie Ogden MD STUDY: X-RAY [...] MD at 10:55 EDT , Service support [phone], RAD/Chest 1 View (Port able) IMPRESSION: Cardiomegaly with mild hyperexpansion. No acute or active cardiopulmonary disease. Electronically Signed: Vu Hankins MD at 10:55 EDT , Service sup port [phone], CC: Enrike Jaimes DO; Kane Ogden MD Lace Stripper: Signed 13-Jun-2015 CTA Chest W/WO Contrast Result: Comments: See Note; NOTES: [facility] Imaging Services [address] [place] [address] Verdana 4d CTA Chest W/WO Contrast MR#: [id number] Acct: [id number] Name: LUPE MCCARTHY Rep #: [id number] : 1945 F 70 From: Johnny Gilman MD PCP: Enrike Jaimes DO Status: REG ER Study: CTA Chest W/WO Contrast Date of Exam: 06/13/15 Exam# [id number] Ordering Dr: Kane Lujan MD STUDY: CTA [...] verbally conveyed by Johnny Gilman MD to [facility] ED RN, on 06/13/2015 12:08:48 (ET). Electronically Signed: Johnny Gilman MD at 12:08 EDT Tel [phone], Service support [phone], N.B. : The above information has been verbally conveyed by Johnny Gilman MD to [facility] ED RN, on 06/13/2015 12:08:48 (ET). CC: Favio Jaimes DO; Kane Ogden MD Lace Stripper: Signed 13-Jun-2015 EKG (93575) Comments: nsr no acute chg Result: [MEASUREMENTS ANALYSIS] Date of Test: 06/13/2015 09:41:07; Heart Rate: 71; [place] Interval: 194; QRS: 96; QT Interval: 420; Corrected QT Interval (QTc): 439; P Wave [place]: 68; QRS Wave [place]: 2; T Wave [place]: 29; Blood Pressure: 140/70 [ECG DIAGNOSTIC STATEMENTS] Date of Test: 06/13/2015 09:41:07; Summary: Sinus Rhythm WITHIN NORMAL LIMITS 23-May-2015 Carotid Duplex Ultrasound Result: Comments: See Note; NOTES: [facility] Cardiovascular Services [address] [place] [address] Carotid Duplex Ultrasound 05/23/15813 MR#: [id number] Acct: [id number] Name: LUPE LOPEZ Rep #: [id number] : 1945 70 From: Brice Murphy MD [...] the left vertebral artery. Procedure Carotid Duplex 47420. The exam was diagnostic. Exam performed in [...] Date Dictated: 05/23/1514 Date Transcribed: 05/23/15 233 Lace Stripper: Signed 23-May-2015 Nuclear Stress Test - Treadmil Result: Comments: See Note; NOTES: [facility] Imaging Services [address] [place] [address] Verda 4d Nuclear Stress Test - Treadmil MR#: [id number] Acct: [id number] N ruel: LUPE LOPEZ Rep #: [id number] : 1945 70 From: Mike Cota MD [...] MD T: [facility] JOB: [id number] 05/23/152009 <Electronically signed by Mike Cota MD> Date Mike Cota MD CC: Enrike Jaimes DO Date Dictated: 05/23/15 1023 Date Transcribed: 05/23/15 1023 Lace Stripper: Signed 20-May-2015 ELECTROCARDIOGRAM, COMPLETE (ECG) (05572) Comments: ekg showed normal sinus rhythym, normal axis, no acute st/t wave changes Result: [MEASUREMENTS ANALYSIS] Date of Test: 05/20/2015 11:04:03; Heart Rate: 63; [place] Interval: 210; QRS: 99; QT Interval: 408; Corrected QT Interval (QTc): 413; P Wave [place]: 56; QRS Wave [place]: 10; T Wave [place]: 27; Blood Pressure: 152/76 [ECG DIAGNOSTIC STATEMENTS] Date of Test: 05/20/2015 11:04:03; Summary: Sinus Rhythm WITHIN NORMAL LIMITS 11-Apr-2015 12 Lead Electrocardiogram Result: Comments: See Note; NOTES: [facility] Cardiovascular Services [address] [place] [address] 12 Lead EKG 03/28/15 1548 MR#: [id number] Acct: [id number] Name: LUPE BOOGIE Rep #: [id number] : 1945 70 From: Mike Cota MD [...] Normal ECG Confirmed by CIPRIANO JC, MIKE ([id number]), editorial project manager TERRI DIOP ([id number]) on 04/11/2015 2:14:19 PM Referred By: CHRISTOPHER Confirmed By:MIKE COTA MD 04/11/15 141 4 Date Mike Cota MD CC: Enrike Jaimes DO Date Dictated: 03/28/15 1548 Date Transcribed: 03/28/15 1548 Lace Stripper: Signed 25-Dec-2014 Pulmonary Function Report Comp Result: Comments: See Note; NOTES: [facility] Pulmonary Services/Neurology [address] [place] [address] Pulmonary Function Test (Comp) MR#: [id number] Acct: [id number] Name: LUPE PHILLIPS Rep #: [id number] : 1945 69 From: Merlin Pop MD Referring Dr: Merlin Pop MD Status: REG CLI Ordering Dr: eMrlin Pop MD Date: 11/27/14 Location: [facility] Sex: F C DATE OF SERVICE: [...] MD T: [facility] JOB: [id number] . Date: 11/28/14 Tech.: Temp: PBar: Height(in.): Weight(lbs.): Diagnosis: Medication: : Dyspnea Rest: Dyspnea Exercise: Cough: Productive (cc): Persistent: Smoker: How Long (pk/yrs): Stopped (yrs): Cigarettes: Cigars: 1 1438 <Electronically signed by Merlin Pop MD> Date Merlin Pop MD CC: Merlin Pop MD; Enrike Jaimes DO Date Dictated: 11/03 Date Transcribed: 11/27/141628 Lace Stripper: Signed 23-Oct-2014 PT Discharge Summary Result: Comments: See Note; NOTES: [facility] [address] [place] [address]. [address] [place] [address] Fax REHABILITATION SERVICES DISCHARGE SUMMARY MR#: [id number] Acct: [id number] Name: LUPE LOPEZ Rep #: [id number] : 1945 69 From: aBrbie Mcguire Referring DrBrooke: Enrike Jaimes DO Status: [...] Sneakers. Barbie Mcguire DPT T: FERNIE JOB: [id number] <Electronically signed by Monika Mcguire > 10/23/14 1021 CC: Signed 23-Oct-2014 Chest WITH Contrast Result: Comments: See Note; NOTES: [facility] Imaging Services [address] [place] [address] CAT Scan Report MR#: [id number] Acct: [id number] Name: LUPE LOPEZ Rep #: [id number] : 1945 F 69 From: Johnny Gilman MD PCP: Enrike Jaimes DO Status: REG CLI Study: Chest WITH Contrast Date of Exam: 10/23/14 Exam# [id number] Ordering Dr: Merlin Pop MD STUDY: CT [...] Johnny Gilman MD at 14:28 EDT Tel [phone], Service support [phone], Fax CC: Merlin Pop MD; Enrike Jaimes DO Lace Stripper: Signed 02-Oct-2014 Bilat [place]ia Digital AND CAD Result: Comments: See Note; NOTES: [facility] Imaging Services [address] [place] [address] Breast Imaging Report MR#: [id number] Acct: [id number] Name: LUPE LOPEZ Rep #: [id number] : 1945 F 69 From: Johnny Gilman MD PCP: Enrike Jaimes DO Status: REG CLI Study: Bilat Scrn Digital AND CAD Date of Exam: 10/02/14 Exam# [id number] Ordering Dr: Enrike Jaimes DO MAMMOGRAPHY - [...] [facility]. Approximately 10% of breast cancers are not detected by mammography. A normal mammogram should not delay biopsy of a clinically suspicious abnormality. Electronically Signed: Isma Gilman MD at 12:54 EDT Tel [phone], Service support [phone], CC: Enrike Jaimes DO Lace Stripper: Signed 27-Sep-2014 Inital Evaluation - PT Result: Comments: See Note; NOTES: [facility]. [address] [place] [address] Fax REHABILITATION SERVICES INITIAL EVALUATION MR#: [id number] Acct: [id number] Name: LUPE LOPEZ Rep #: [id number] : 1945 69 From: Barbie Mcguire Referring [...] no stent that she does see a residential carpet installer. MEDICATIONS: The patient has a list if [...] is fair. The patient will benefit from [facility] physical therapy to solve the following problems [...] pain. Barbie Mcguire DPT T: [facility] JOB: [id number] <Electronically signed by Barbie Mcguire > 09/27/14 0823 CC: Signed For Medicare only, by signing this I certify the plan of care. Physicians Signature Date 14-Jun-2014 Knee 4 or More Views Result: Comments: See Note; NOTES: [facility] Imaging Services [address] [place] [address] Radiology Report MR#: [id number] Acct: [id number] Name: LUPE LOPEZ Rep #: [id number] : 1945 F 69 From: Frank Sewell MD PCP: Enrike Jaimes DO Status: REG CLI Study: Knee 4 or More Views Date of Exam: 06/14/14 Exam# [id number] Ordering Dr: Enrike Jaimes DO STUDY: X-R [...] at 7:48 EDT Tel , Service support [phone], CC: Enrike Jaimes DO Lace Stripper: Signed 14-Jun-2014 Knee 4 or More Views Result: Comments: See Note; NOTES: [facility] Imaging Services [address] [place] [address] Radiology Report MR#: [id number] Acct: [id number] Name: LUPE LOPEZ Rep #: [id number] : 1945 F 69 From: Frank Sewell MD PCP: Enrike Jaimes DO Status: REG CLI Study: Knee 4 or More Views Date of Exam: 06/14/14 Exam# [id number] Ordering Dr: Enrike Jaimes DO STUDY: X-R [...] at 7:50 EDT Tel , Service support [phone], RAD/Knee 4 or More Views IMPRESSION: Mild relative narrowing of the medial co mpartment joint space left knee. Generalized osteopenia. Electronically Signed: Ming Sewell MD at 7:50 EDT Tel , Service support [phone], CC: Enrike Jaimes DO Lace Stripper: Signed 16-May-2014 Carotid Duplex Ultrasound Result: Comments: See Note; NOTES: [facility] Cardiovascular Services [address] [place] [address] 05/03/14 1014 MR#: [id number] Acct: [id number] Name: LUPE LOPEZ Rep #: [id number] [...] left ve rtebral artery. Procedure Carotid Duplex 50793. The exam was diagnostic. Exam performed in department. Interpretation Summary Mild (<50%) stenosis right extracranial internal carotid. Mild (<50%) stenosis left extracranial internal carotid. Flow within the vertebral arteries is antegrade bilaterally. ___ Ordering Physician: Enrike Jaimes D.O. Performed By: Rufino Ashley, RVT 05/03/14 1107 Date ____ Brice Murphy MD CC: Enrike Jaimes DO Date Dictated: 05/03/14 1014 Date Transcribed: 05/03/14 1107 Lace Stripper: Signed 23-Apr-2014 [facility] ([id number]) Comments: good effort and curve normal Result: 17-Apr-2014 Brain/Head W/WO Contrast Result: Comments: See Note; NOTES: [facility] Imaging Services [address] [place] [address] CAT Scan Report MR#: [id number] Acct: [id number] Name: LUPE LOPEZ Rep #: [id number] : 1945 F 69 From: Johnny Gilman MD PCP: Enrike Jaimes DO Status: REG CLI Study: Brain/Head W/WO Contrast Date of Exam: 04/17/14 Exam# [id number] Ordering Dr: Enrike Jaimes DO STUDY: CT [...] Johnny Gilman MD at 15:01 EST Tel [phone], Service support [phone], CC: Enrike Jaimes DO Lace Stripper: Signed 17-Apr-2014 CTA Chest W/WO Contrast Result: Comments: See Note; NOTES: [facility] Imaging Services [address] [place] [address] CAT Scan Report MR#: [id number] Acct: [id number] Name: LUPE LOPEZ Rep #: [id number] : 1945 F 69 From: Johnny Gilman MD PCP: Enrike Jaimes DO Status: REG CLI Study: CTA Chest W/WO Contrast Date of Exam: 04/17/14 Exam# [id number] Ordering Dr: Enrike Jaimes DO STUDY: C [...] Johnny Gilman MD at 14:38 EST Tel [phone], Service support [phone], CC: Enrike Jaimes DO Lace Stripper: Signed Immunization Name Dates Details Influenza vaccine, split, 3yrs &>, IM (FLUZONE) on: Nov-2017 Influenza, preserv. 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 [place], [place], [address] Absolute Lymph 1.48 {X10_3/ul} (Normal) Range: 0.83-4.51 [...] Range: 4.4-11.0 :15 Comprehensive Metabolic Profil Comments: [facility] [address] [place], [id number] GAP 7 (Normal) Range: 5-15 CO2 29.0 [...] Please note revised GLUCOSE reference range /02/2018. 95-Hto-53596:15 Hemoglobin A1c Comments: [facility] [address] [place], [place], [address] HGB A1C 5.5 % (Normal) Range: 4.2-6.3 :15 Lipid Profile Comments: [facility] [address] [place], [place], [id number] VLDL 16 mg/dL (Normal) Range: 5-40 LDL [...] 200-240 mg/dL Borderline >240 mg/dL High Risk 52-Wlu-73853:15 Thyroid Stim Hormone (TSH) Comments: [facility] [address] [facility] [address] [place], [place], [address] TSH 4.30 {uIU/mL} (Abnormal) Range: 0.358-3.74 3-Dfc-630767:25 Stool Occult Blood iFOB Comments: [facility] [address] [place], [place], [address] STOB See Note (Normal) Comments: Reason for Laboratory Test . STOB iFOBOccult Blood Negative 14-Cpi-663381:07 CBC W/Diff, Automated Comments: Reason for Laboratory Test .[facility] [address] [place], [place], [address] Absolute Lymph 1.23 {X10_3/ul} (Normal) Range: 0.83-4.51 [...] 4.2-5.4 WBC 3.4 K/mm3 (Abnormal) Range: 4.4-11.0 96-Elg-600537:07 Comprehensive Metabolic Profil Comments: Reason for Laboratory Test .[facility] [address] [place], [place], [address] GAP 7 (Normal) Range: 5-15 CO2 29.0 [...] Please note revised GLUCOSE reference range /02/2018. 01-Xvu-478328:07 Ferritin Comments: Reason for Laboratory Test .[facility] [address] [place], [place], [address] FERRITIN 26 ng/mL (Normal) Range: 8-252 39-Mtv-749297:07 Iron+Iron Binding Capacity Comments: Reason for Laboratory Test .[facility] [address] [place], [place], [address] IRON SATURATION 17.0 % (Normal) Range: 15.0-55.0 IRON 56 ug/dL (Normal) Range: 50-170 TIBC 329 ug/dL (Normal) Range: 250-450 04-Ndk-729554:47 CBC W/Diff, Automated Comments: [facility] [address] [place], [place], [address] Absolute Lymph 1.23 {X10_3/ul} (Normal) Range: 0.83-4.51 [...] 4.2-5.4 WBC 4.8 K/mm3 (Normal) Range: 4.4-11.0 53-Xrm-971840:47 Comprehensive Metabolic Profil Comments: [facility] [address] [place], [address] GAP 9 (Normal) Range: 5-15 CO2 25.0 [...] Comments: Please note revised GLUCOSE reference range ufhriqukk55/02/2018. 35-Qvx-767972:47 Hemoglobin A1c Comments: [facility] [address] [place], [address] HGB A1C 5.5 % (Normal) Range: 4.2-6.3 82-Lqu-526859:47 Lipid Profile Comments: [facility] [address] [place], [address] VLDL 18 mg/dL (Normal) Range: 5-40 LDL [...] 200-240 mg/dL Borderline >240 mg/dL High Risk 78-Dsw-358938:47 Thyroid Stim Hormone (TSH) Comments: [facility] [address] [place], [address] TSH 4.65 {uIU/mL} (Abnormal) Range: 0.358-3.74 96-Teu-058417:32 Thyroid Stim Hormone (TSH) Comments: [facility] [address] [place], [place], [address] TSH 2.85 {uIU/mL} (Normal) Range: 0.358-3.74 90-Bgs-10573:27 Microscopic Examination Comments: PATIENT WAS FASTINGPERFORMED BY: [facility] Qygblz1994 [facility] [id number] Bacteria Few (Normal) Mucus Threads Present (Normal) Cast Type Hyaline casts (Normal) Casts Present {/lpf} (Abnormal) Epithelial Cells (non renal) 0-10 {/hpf} (Normal) Range: 0 - 10 RBC 0-2 {/hpf} (Normal) Range: 0 - 2 WBC 0-5 {/hpf} (Normal) Range: 0 - 5 :49 CBC W/Diff, Automated Comments: Reason for Laboratory Test [facility] [address] [place], [place], [address] Absolute Lymph 1.48 {X10_3/ul} (Normal) Range: 0.83-4.51 [...] Metabolic Profil Comments: Reason for Laboratory Test [facility] [address] [place], [address] GAP 5 (Normal) Range: 5-15 [...] Comments: Please note revised GLUCOSE reference range dnyqwekhv88/02/2018. 20-Jul-20178:49 Ferritin Comments: Reason for [facility] [address] [place], [address] FERRITIN 29 ng/mL (Normal) Range: 8-252 20-Jul-20178:49 Iron Comments: Reason for Laboratory Test [facility] [address] [place], [address] IRON 55 ug/dL (Normal) Range: 50-170 :32 Lipid Profile Comments: [facility] [address] [place], [place], [address] VLDL 18 mg/dL (Normal) Range: 5-40 LDL [...] mg/dL High Risk :32 Liver Profile Comments: [facility] [address] [place], [address] D BILI 0.09 mg/dL (Normal) Range: 0.00-0.30 T BILI 0.50 mg/dL (Normal) Range: 0.20-1.00 ALT 14 U/L (Normal) Range: 13-56 ALK P 55 U/L (Normal) Range: 45-117 AST 19 U/L (Normal) Range: 15-37 GLOB 3.0 g/dL (Normal) Range: 2.2-4.2 ALB 3.7 g/dL (Normal) Range: 3.2-5.0 T PROT 6.7 g/dL (Normal) Range: 6.4-8.2 :32 Thyroid Stim Hormone (TSH) Comments: [facility] [address] [place], [address] TSH 5.71 {uIU/mL} (Abnormal) Range: 0.358-3.74 :27 SED RATE ERYTHROCYTE (69786) Comments: PATIENT WAS FASTINGPERFORMED BY: LabCoPSE&G [facility] Specialized HospitalGbfjbk7218 [facility] [id number] Sedimentation Rate-Westergren 8 mm/h (Normal) Range: 0-40 :27 C-REACTIVE PROTEIN (92444) Comments: PATIENT WAS FASTINGPERFORMED BY: [facility]6370 [facility] [id number] C-Reactive Protein, Quant 0.6 mg/L (Normal) Range: 0.0-4.9 :27 FOLIC ACID SERUM (46000) Comments: PATIENT WAS FASTINGPERFORMED BY: [facility]6370 [facility] [id number] Folate (Folic Acid), Serum >20.0 ng/mL (Normal) Comments: A serum folate concentration of less than 3.1 ng/mL isconsidered to represent clinical deficiency. :27 VITAMIN B-12 (CYANOCOBALAMIN) Comments: PATIENT WAS FASTINGPERFORMED BY: [facility]6370 [facility] [id number] (62161) Vitamin B12 681 pg/mL (Normal) Range: 232-1245 :27 TSH (THYROID STIMULATING Comments: PATIENT WAS FASTINGPERFORMED BY: [facility]6370 [facility] [id number] HORMONE) (35052) TSH 6.650 {uIU/mL} (Abnormal) Range: 0.450-4.500 :27 LIPID PANEL (57994) Comments: PATIENT WAS FASTINGPERFORMED BY: [facility]6370 [facility] [id number] LDL/HDL Ratio 1.4 {ratio} (Normal) Range: 0.0-3.2 [...] mg/dL (Normal) Range: 100-199 :27 HGB A1C (94179) Comments: PATIENT WAS FASTINGPERFORMED BY: [facility]6370 [facility] [id number] Hemoglobin A1c 5.6 % (Normal) Range: 4.8-5.6 Comments: . Pre-diabetes: 5.7 - 6.4 Diabetes: >6.4 Glycemic control for adults with diabetes: <7.0 :27 serum free light chains Comments: PATIENT WAS FASTINGPERFORMED BY: Cricket MediaPSE&G [facility] Specialized HospitalXbxplz4462 [facility] [id number] (21307) Kremmling/Lambda Ratio,S 1.18 (Normal) Range: 0.26-1.65 Free Lambda Lt Chains,S 19.1 mg/L (Normal) Range: 5.7-26.3 Free Kremmling Lt Chains,S 22.5 mg/L (Abnormal) Range: 3.3-19.4 :27 urine immunofixation (13635) Comments: PATIENT WAS FASTINGPERFORMED BY: [facility]6370 [facility] [id number] THEE Interpretation:U UPEIP (Normal) Comments: No monoclonality detected. :27 serum immunofixation (60686) Comments: PATIENT WAS FASTINGPERFORMED BY: [facility]6370 [facility] [id number] Immunoglobulin M, Qn, Serum 68 mg/dL (Normal) Range: 26-217 Immunoglobulin A, Qn, Serum 111 mg/dL (Normal) Range: 64-422 Immunoglobulin G, Qn, Serum 669 mg/dL (Abnormal) Range: 700-1600 Immunofixation Result, Serum UPEIP (Normal) Comments: No monoclonality detected. :27 URINALYSIS, W/ MICRO (75138) Comments: PATIENT WAS FASTINGPERFORMED BY: [facility]6370 [facility] [id number] Microscopic Examination See below: (Normal) Comments: Microscopic was indicated and was performed. Microscopic Examination MICRON (Normal) Comments: Microscopic follows if indicated. Nitrite, Urine Negative (Normal) Urobilinogen,Semi-Qn 0.2 mg/dL (Normal) Range: 0.2-1.0 Bilirubin Negative (Normal) Occult Blood Negative (Normal) Ketones Negative (Normal) Glucose Negative (Normal) Protein Negative (Normal) WBC Esterase Negative (Normal) Appearance Clear (Normal) Urine-Color Yellow (Normal) pH 6.0 (Normal) Range: 5.0-7.5 Specific [place] 1.019 (Normal) Range: 1.005-1.030 69-Omr-09031:27 METABOLIC PANEL, COMPREHENSIVE Comments: PATIENT WAS FASTINGPERFORMED BY: [facility]6370 [facility] [id number] (65652) ALT (SGPT) 12 [iU]/L (Normal) Range: 0-32 [...] 8-27 Glucose 91 mg/dL (Normal) Range: 65-99 7-Xsf-980653:14 CBC W/Diff, Automated Comments: Reason for Laboratory Test .[facility] [address] [place], [place], [address] Absolute Lymph 0.91 {X10_3/ul} (Normal) Range: 0.83-4.51 [...] 4.2-5.4 WBC 5.1 K/mm3 (Normal) Range: 4.4-11.0 9-Cdd-524803:14 Comprehensive Metabolic Profil Comments: Reason for Laboratory Test .Is Patient Taking Vitamins or Folic Acid Supplements? [facility] [address] [place], [place], [address] GAP 7 (Normal) Range: 5-15 CO2 30.0 [...] 7-18 GLU 100 mg/dL (Normal) Range: 70-110 8-Udm-347936:14 Ferritin Comments: Reason for Laboratory Test .Is Patient Taking Vitamins or Folic Acid Supplements? [facility] [address] [place], [place], [address] FERRITIN 42 ng/mL (Normal) Range: 8-252 6-Cdg-091001:14 Folates, (Folic Acid) Comments: Reason for Laboratory Test .Is Patient Taking Vitamins or Folic Acid Supplements? [facility] [address] [place], [address] FOLATES 82.80 ng/mL (Abnormal) Range: 3.1-55.4 Comments: Please note revised Folates reference range zocypoloz14/14/2017. 2-Nvg-712868:14 Iron+Iron Binding Capacity Comments: Reason for Laboratory Test .Is Patient Taking Vitamins or Folic Acid Supplements? [facility] [address] [place], [address] IRON SATURATION 10.7 % (Abnormal) Range: 15.0-55.0 IRON 36 ug/dL (Abnormal) Range: 50-170 TIBC 335 ug/dL (Normal) Range: 250-450 7-Fab-411797:14 Vitamin B12 > 2000 pg/mL (Abnormal) Comments: Reason for Laboratory Test .[facility] [address] [place], [address] Range: 211-911 41-Bjm-594301:06 Stool Occult Blood iFOB Comments: [facility] [address] [place], [address] STOB See Note (Normal) Comments: Reason for Laboratory Test . STOB iFOBOccult Blood Negative 82-Blv-15828:18 CBC W/Diff, Automated Comments: [facility] [address]sf[address] [place], [address] Absolute Lymph 1.31 {X10_3/ul} (Normal) Range: 0.83-4.51 [...] 4.2-5.4 WBC 3.4 K/mm3 (Abnormal) Range: 4.4-11.0 02-Tqm-52947:18 Comprehensive Metabolic Profil Comments: Is Patient Taking Vitamins or Folic Acid Supplements? [facility] [address] [place], [address] GAP 7 (Normal) Range: 5-15 CO2 28.0 [...] Patient Taking Vitamins or Folic Acid Supplements? [facility] [address] [place], [place], [address] FERRITIN 16 ng/mL (Normal) Range: 8-252 :18 Folates, (Folic Acid) Comments: Is Patient Taking Vitamins or Folic Acid Supplements? [facility] [address] [place], [place], [address] FOLATES 67.80 ng/mL (Abnormal) Range: 3.1-17.5 :18 Iron+Iron Binding Capacity Comments: Is Patient Taking Vitamins or Folic Acid Supplements? [facility] [address] [place], [place], [address] IRON SATURATION 11.2 % (Abnormal) Range: 15.0-55.0 IRON 41 ug/dL (Abnormal) Range: 50-170 TIBC 367 ug/dL (Normal) Range: 250-450 :18 Vitamin B12 1297 pg/mL (Abnormal) Comments: [facility] [address] [place], [place], [address] Range: 211-911 24-Itw-503256:09 Urinalysis, Office (55891) UA - LEUKOCYTE ESTERASE Negative (Normal) UA - NITRITE Negative (Normal) URINE UROBILINGN DIPAK TIMED 2 mg/dL (Normal) UA - PROTEIN Negative mg/dL (Normal) UA - PH 6.0 (Normal) UA - BLOOD Hemolyzed Trace (Normal) UA - SPECIFIC GRAVITY 1.015 (Normal) UA - KETONES Negative mg/dL (Normal) UA - BILIRUBIN Negative (Normal) UA - GLUCOSE Negative (Normal) 96-Jhh-446163:09 Blood Glucose , Office (66837) Blood Glucose , Office 91 (Normal) 66-Ilh-725427:09 HgA1C , Office (26722) HgA1C , Office 5.3 % (Normal) Range: 4.6 - 7.1 :01 CBC W/Diff, Automated Comments: [facility] [address] [place], [place], [address] Absolute Lymph 0.96 {X10_3/ul} (Normal) Range: 0.83-4.51 [...] Range: 4.4-11.0 :01 Comprehensive Metabolic Profil Comments: [facility] [address] [place], [place], [address] GAP 12 (Normal) Range: 5-15 CO2 24.0 [...] (Normal) Range: 70-110 :01 Hemoglobin A1c Comments: [facility] [address] [place], [place], [address] HGB A1C 5.3 % (Normal) Range: 4.2-6.3 :01 THEE + Protein Elect, Serum Comments: Is Patient F[facility]? [facility] (refer to report for specific site)refer to report for address and phone number NOTE: Comment (Normal) Comments: Protein electrophoresis scan will follow via computer,mail, or mushroom growth media mixer delivery. THEE RESULT,S Comment (Normal) Comments: No monoclonality detected. A/G RATIO 1.2 (Normal) Range: 0.7-1.7 GLOBULIN, TOTAL 3.1 g/dL (Normal) Range: 2.2-3.9 M-SPIKE g/dL (Normal) Comments: Not Observed GAMMA GLOBULIN 0.7 g/dL (Normal) Range: 0.4-1.8 BETA GLOBULIN 0.9 g/dL (Normal) Range: 0.7-1.3 FXFLS-0-CIPW 1.0 g/dL (Normal) Range: 0.4-1.0 TMXWT-2-INAP 0.5 g/dL (Abnormal) Range: 0.0-0.4 ALBUMIN 3.6 [...] Comment (Normal) Comments: No monoclonality detected.Performed at: [email or web address] - [facility] [address] [id number] Director: Samm Galvan PhD, Phone: [phone] 64-Wvc-88601:01 Lipid Profile Comments: [facility] [address] [facility]. [place], [place], [address] VLDL 19 mg/dL (Normal) Range: 5-40 LDL [...] Risk :01 Thyroid Stim Hormone (TSH) Comments: [facility] [address] [place], [address] TSH 4.87 {uIU/mL} (Abnormal) Range: 0.358-3.74 :01 Vitamin D,25 Hydroxy Comments: [facility] [address] [place], [address] Vitamin D 25-OH 27.3 ng/mL (Normal) Comments: Vitamin D 25(OH) Status Range Deficiency <20 ng/mL (50nmol/L) Insuffciency 20 - 30 ng/mL (50 - 75 nmol/L) Sufficiency 30 - 100 ng/mL (75 - 250 nmol/L) Toxicity >100 ng/mL (>250 nmol/L) :54 CBC W/Diff, Automated Comments: [facility] [address] [place], [address] Absolute Lymph 1.70 {X10_3/ul} (Normal) Range: 0.83-4.51 [...] Serial specimen #1, #2, #3, or #4: [address] [place] [address] [address] [place], [address] GAP 8 (Normal) Range: 5-15 CO2 25.0 [...] (Normal) Range: 70-110 :54 Hemoglobin A1c Comments: [facility] [address] [place], [address] HGB A1C 5.9 % (Normal) Range: 4.2-6.3 :54 Lipid Profile Comments: 'TROP' Serial specimen #1, #2, #3, or #4: [address] [place] [address] [place], [address] VLDL 31 mg/dL (Normal) Range: 5-40 [...] Serial specimen #1, #2, #3, or #4: [address] [place] [address] [address] [place], [address] TSH 4.73 {uIU/mL} (Abnormal) Range: 0.358-3.74 :54 Troponin-I Comments: 'TROP' Serial specimen #1, #2, #3, or #4: [address] [place] [address] [place], [address] TROPONIN-I < 0.02 ng/mL (Normal) Comments: TROPONIN-I EXPECTED VALUES <0.05 NEGATIVE 0.06 - 0.59 AT RISK OF [place] > OR = 0.60 SUGGEST [place] 99-Uyb-367754:51 CBC W/Diff, Auto - EPLAB Comments: Order Date: 01/01/16Order Info: [id number] - *CBC w/Diff - oncology ONLYComments: DRAW AND HOLD SERUM TUBEOrder Date: 01/01/16Order Info: [id number] - *CBC w/Diff - oncology ONLYComments: DRAW AND HOLD SERUM Only TUBEAt [facility] Outpatient [facility] Medical Oncologypatients receive CBC w/auto Differential ONLY. Physicianwill place an order for a manual differential or Pathologistreview at his discretion. [facility] OUTPATIENT [facility]. [address] [address] [address] CARDIOGRAPHER: JOSE KOHLI DO PH:[phone] Date: 01/01/16Order Info: [id number] - *MISC - Miscellaneous Lab Test #1Comments: Test(s) Ordered by Physician:[facility] [address] [place], [address] Absolute Lymph 1.39 {X10_3/uL} (Normal) Range: 0.83-4.51 [...] 4.2-5.4 WBC 4.7 K/mm3 (Normal) Range: 4.4-11.0 69-Yzr-047460:51 Comprehensive Metabolic Comments: Order Date: 01/01/16Order Info: [id number] - *CMP Complete Metabolic PanelOrder Info: 3084-1 - *Uric Acid BloodOrder Info: 2500-7 - *TIBCOrder Info: 5708-4 - *IronOrder Info: 2466-4 - *FerritinComments: Ashlyn Martin son:Order Info: 2532-0 - *LDH -LDH (Lactate Dehydrogenase)Order Date: 01/01/16Order Info: [id number] - *MISC - Miscellaneous Lab Test #1Comments: Test(s) Ordered by Physician:FOLATESSerial Specimen #1, # 2 or #3? 1Is Patient Taking Vitamins or Folic Acid Supplements? [facility] [address] [place], [address] GAP 2 (Abnormal) Range: 5-15 CO2 29.0 [...] 7-18 GLU 89 mg/dL (Normal) Range: 70-110 86-Obj-282484:51 Ferritin Comments: Order Date: 01/01/16Order Info: [id number] [...] Patient Taking Vitamins or Folic Acid Supplements? [facility] [address] [place], [place], [address] FERRITIN 14 ng/mL (Normal) Range: 8-252 19-Dbl-082926:51 Folates, (Folic Acid) Comments: Order Date: 01/01/16Order [...] Patient Taking Vitamins or Folic Acid Supplements? [facility] [address] [place], [address] FOLATES 72.40 ng/mL (Abnormal) Range: 3.1-17.5 98-Hrm-150567:51 Iron Comments: Order Date: 01/01/16Order Info: [id number] [...] Patient Taking Vitamins or Folic Acid Supplements? [facility] [address] [place], [place], [address] IRON 40 ug/dL (Abnormal) Range: 50-170 02-Iag-795898:51 Iron Binding Capacity,Total Comments: Order Date: 01/01/16Order [...] Patient Taking Vitamins or Folic Acid Supplements? [facility] [address] [place], [place], [address] TIBC 354 ug/dL (Normal) Range: 250-450 97-Dif-956478:51 LDH 199 U/L (Normal) Comments: Order Date: [...] Patient Taking Vitamins or Folic Acid Supplements? [facility] [address] [place], [address] Range: 84-246 96-Zmv-447404:51 Uric Acid Comments: Order Date: 01/01/16Order Info: [...] Patient Taking Vitamins or Folic Acid Supplements? [facility] [address] [place], [address] URIC 3.9 mg/dL (Normal) Range: 2.6-6.0 Comments: The drugs N-Acetylcysteine and Metamizole may falsely deressthis assay. 50-Jhl-591708:51 Vitamin B12 809 pg/mL (Normal) Comments: Order Date: 01/01/16Order Info: [id number] - *B-12Order Date: 01/01/16Order Info: 0453-1 - *MISC - Miscellaneous [facility] [address] [place], [address] Range: 211-911 99-Utx-104905:41 D-Dimer Quantitative (DVT/PE) Comments: Order Date: 06/15/16Order Info: [id number] - *DDIMQ - Fibrin Degrd Ultrsens Qual/SemiquanOrder Date: 06/15/16Order Info: [id number] - *DDIMQ - Fibrin Degrd Ultrsens Qual/[facility] [address] [place], [place], [address] D-DIMER QUANT 0.28 {FEU/ug/m} (Normal) Range: 0.27-0.49 Comments: NORMAL D-Dimer level (<0.50) indicates no DVT or PE. 2-Fwg-515163:15 Thyroxine (T4) Free, Direct, S Comments: PATIENT NOT FASTINGPERFORMED BY: [facility] Yfunfb9034 [facility] [id number] T4,Free(Direct) 1.22 ng/dL Range: 0.82-1.77 (Normal) Triiodothyronine,Free,Seru 2.2 pg/mL (Normal) Comments: PATIENT NOT FASTINGPERFORMED BY: [facility] Vdhzuz9673 [facility] [id number] 4:15 m Range: 2.0-4.4 Written Authorization WAR (Normal) Comments: PATIENT NOT FASTINGPERFORMED BY: [facility] Jppzuh9177 [facility] [id number] 4:15 Comments: Written Authorization Received.Authorization received from MAO BENITEZ [id number] by Jyothi Boland 4-Kwd-237724:15 [facility] ([id number]) Comments: PATIENT NOT FASTINGPERFORMED BY: [facility] Axfbuj3766 [facility] [id number] Please note: SPRCS (Normal) Comments: Protein electrophoresis scan will follow via computer, mail, orcourier delivery. A/G Ratio 1.3 (Normal) Range: 0.7-1.7 Globulin, Total 2.8 g/dL (Normal) Range: 2.2-3.9 M-Abhinav Not Observed g/dL (Normal) Gamma Globulin 0.8 g/dL (Normal) Range: 0.4-1.8 Beta Globulin 0.8 g/dL (Normal) Range: 0.7-1.3 Kpzms-0-Jlbljtzi 0.9 g/dL (Normal) Range: 0.4-1.0 Buzxr-7-Uizvqcnx 0.2 g/dL (Normal) Range: 0.0-0.4 Albumin 3.6 g/dL (Normal) Range: 2.9-4.4 Protein, Total, Serum 6.4 g/dL (Normal) Range: 6.0-8.5 8-Vtm-688218:15 UPEP (39066) Comments: PATIENT NOT FASTINGPERFORMED BY: Cricket MediaPSE&G Children's Specialized HospitalXickhh2846 [facility] [id number] Please note: SPRCS (Normal) Comments: Protein electrophoresis scan will follow via computer, mail, orcourier delivery. M-Abhinav, % Not Observed % (Normal) Gamma Globulin, U 39.7 % (Normal) Beta Globulin, U 30.6 % (Normal) Wrxlc-5-Faeolqet, U 6.8 % (Normal) Amruo-2-Ffbhqnjp, U 2.0 % (Normal) Albumin, U 21.0 % (Normal) Protein,Total,Urine 4.5 mg/dL (Normal) 5-Bvo-992560:15 TSH (59078) Comments: PATIENT NOT FASTINGPERFORMED BY: LabRBM TechnologiesPSE&G Children's Specialized HospitalKiwlvp0477 [facility] [id number] TSH 7.400 {uIU/mL} (Abnormal) Range: 0.450-4.500 6-Rcd-118452:15 CBC WITH MANUAL DIFF (95029) Comments: PATIENT NOT FASTINGPERFORMED BY: [facility]hythmBr[facility] Hospital6370 [facility] [id number] Immature Grans (Abs) 0.0 {x10E3/uL} (Normal) Range: [...] 3.77-5.28 WBC 4.5 {x10E3/uL} (Normal) Range: 3.4-10.8 2-Nnk-898829:15 RETICULOCYTE COUNT (03132) Comments: PATIENT NOT FASTINGPERFORMED BY: Cricket MediaLovelace Women's HospitalHwvnrn6182 [facility] [id number] Reticulocyte Count 1.0 % (Normal) Range: 0.6-2.6 4-Nrx-387291:15 LDH (LD) (LACTATE DEHYDROGENASE) Comments: PATIENT NOT FASTINGPERFORMED BY: Cricket MediaPSE&G Children's Specialized HospitalUlaowo4180 [facility] [id number] (11252) LDH 185 [iU]/L (Normal) Range: 119-226 8-Qwi-604575:15 Iron Binding Capacity (TIBC) Comments: PATIENT NOT FASTINGPERFORMED BY: Cricket MediaPSE&G Children's Specialized HospitalRybobf7710 [facility] [id number] (52719) Iron Saturation 16 % (Normal) Range: 15-55 Iron, Serum 55 ug/dL (Normal) Range: 27-139 UIBC 281 ug/dL (Normal) Range: 118-369 Iron Bind.Cap.(TIBC) 336 ug/dL (Normal) Range: 250-450 3-Hrd-873777:15 Vitamin B-12 (cyanocobalamin) Comments: PATIENT NOT FASTINGPERFORMED BY: Cricket MediaPSE&G Children[facility] Specialized HospitalStqqcm9020 [facility] [id number] (66461) Vitamin B12 979 pg/mL (Abnormal) Range: 211-946 5-Spg-377284:15 Folic Acid Serum (94708) Comments: PATIENT NOT FASTINGPERFORMED BY: LabBronson [facility] Hospital6370 [facility] [id number] Folate (Folic Acid), Serum >20.0 ng/mL (Normal) Comments: A serum folate concentration of less than 3.1 ng/mL isconsidered to represent clinical deficiency. 1-Okf-068891:15 Ferritin (50994) Comments: PATIENT NOT FASTINGPERFORMED BY: LabCoPSE&G Children's Specialized HospitalIfdgis1529 [facility] [id number] Ferritin, Serum 30 ng/mL (Normal) Range: 15-150 [id number]-[id number]:05 CBC W/Diff, Automated Comments: [facility] [id number] [place], [address] Absolute Lymph 1.49 {X10_3/ul} (Normal) Range: 0.83-4.51 [...] 4.2-5.4 WBC 4.6 K/mm3 (Normal) Range: 4.4-11.0 [id number]-Toe-[id number]:05 Comprehensive Metabolic Profil Comments: [facility] [id number] [place], [place], [address] GAP 8 (Normal) Range: 5-15 CO2 28.0 [...] 7-18 GLU 86 mg/dL (Normal) Range: 70-110 [id number]-Dtx-[id number]:05 Hemoglobin A1c Comments: [facility] [id number] [address] [place], [address] HGB A1C 5.2 % (Normal) Range: 4.2-6.3 56-Mas-723879:05 Lipid Profile Comments: [facility] F[address]zp[address] [place], [address] VLDL 22 mg/dL (Normal) Range: 5-40 [...] 200-240 mg/dL Borderline >240 mg/dL High Risk 11-Xwv-211058:05 Microalb:Creat Ratio,Random UR Comments: [facility] Bpfjrqwceu[address] [place], [address] MALB:CREAT 5.0 {mg/g_CRE} (Normal) MICROALBUMIN,UR 7.2 mg/L (Normal) UR CREAT 144.00 mg/dL (Normal) 57-Gae-222713:05 Vitamin D,25 Hydroxy Comments: [facility] Apoajvnvjn1099 [place], [address] Vitamin D 25-OH 40.3 ng/mL (Normal) Comments: Vitamin D 25(OH) Status Range Deficiency <20 ng/mL (50nmol/L) Insuffciency 20 - 30 ng/mL (50 - 75 nmol/L) Sufficiency 30 - 100 ng/mL (75 - 250 nmol/L) Toxicity >100 ng/mL (>250 nmol/L) 60-Qly-03693:27 CBC with auto diff (18561) Comments: PATIENT WAS FASTINGPERFORMED BY: [facility] HospitalZjtzop5087 [facility] [id number] Immature Grans (Abs) 0.0 {x10E3/uL} (Normal) Range: [...] 3.77-5.28 WBC 3.3 {x10E3/uL} (Abnormal) Range: 3.4-10.8 04-Onq-156244:35 MAGNESIUM (38500) Comments: PATIENT NOT FASTINGPERFORMED BY: [facility] Zsnxav2606 [facility] [id number] Magnesium, Serum 1.8 mg/dL (Normal) Range: 1.6-2.3 :35 POTASSIUM SERUM (79587) Comments: PATIENT NOT FASTINGPERFORMED BY: [facility] Nkdulj4329 [facility] [id number] Potassium, Serum 4.5 mmol/L (Normal) Range: 3.5-5.2 :00 CBC W/Diff, Automated Comments: [facility] [address] [place], [address] Absolute Lymph 0.91 {X10_3/ul} (Normal) [...] Range: 4.4-11.0 :00 Comprehensive Metabolic Profil Comments: [facility] Ooezfgbuuc2417 [address] [place], [place], [address] GAP 8 (Normal) Range: 5-15 CO2 31.0 [...] 7-18 GLU 75 mg/dL (Normal) Range: 70-110 38-Kkv-55337:00 Erythrocyte Sed Rate Comments: [facility] [address] [place], [place], [address] SED RATE 21 mm/h (Normal) Range: 0-30 7-Dwo-592050:37 CBC W/Diff, Automated Comments: [facility] [address] [place], [place], [address] Absolute Lymph 1.96 {X10_3/ul} (Normal) Range: 0.83-4.51 [...] 4.4-11.0 :37 Thyroid Stim Hormone (TSH) Comments: [address] [place], [address] TSH 4.43 {uIU/mL} (Abnormal) Range: 0.358-3.74 :37 Vitamin B12 969 pg/mL (Abnormal) Comments: [address] [place], [address] Range: 211-911 29-Jan-20160:00 CBC W/ Manual Differential Comments: [address] [place], [address] RED CELL MORPH NORM C+C [...] Contrast this admission? NIs Patient on Heparin? [facility] Rlztvzcowi8684 [place], [place], [address] GAP 7 (Normal) Range: 5-15 CO2 30.0 [...] Contrast this admission? NIs Patient on Heparin? [facility] [address] [place], [place], [address] FREE T3 2.1 pg/mL (Abnormal) Range: 2.18-3.98 :00 T4 Free Direct Comments: ADD ON TSHHas Patient had X-rays with Contrast this admission? NIs Patient on Heparin? [facility] [address] [place], [address] T4 FREE DIRECT 1.30 ng/dL (Normal) Range: 0.76-1.46 29-Jan-20160:00 Thyroid Peroxidase AB Comments: [facility] (refer to report for specific site)refer to report for address and phone number TPO AB 6676 6 {IU/mL} (Normal) Range: 0-34 Comments: Performed at: [facility] [address] [id number] Director: Samm Galvan PhD, Phone: [phone] 29-Jan-20160:00 Thyroid Stim Hormone (TSH) Comments: ADD ON TSHHas Patient had X-rays with Contrast this admission? NIs Patient on Heparin? [facility] [address] [place], [address] TSH 5.27 {uIU/mL} (Abnormal) Range: 0.358-3.74 79-Eqc-098217:38 CBC W/Diff, Auto - EPLAB Comments: At [facility] Outpatient [facility] [place] Medical Oncologypatients receive CBC w/auto Differential ONLY. Physicianwill place an order for a manual differential or Pathologistreview at his discretion. [facility] OUTPATIENT [facility]. [address] [address] [place] [address] CARDIOGRAPHER: JOSE KOHLI DO PH:[phone] Hospital [address]hjprkk[address] [place], [place], [address] Absolute Lymph 1.55 {X10_3/uL} (Normal) Range: 0.83-4.51 [...] 4.2-5.4 WBC 5.4 K/mm3 (Normal) Range: 4.4-11.0 40-Emo-366067:19 Pathology Report Comments: PERFORMED BY: [facility] [place] Cyto Txjjn01923 [facility] [id number] BY: [facility] Dermatopathology Kdwzenh[address] [id number] Information: [id number] See MATER Comments: Material submitted: .PUNCH BIOPSY [...] SPECIMEN IS SUBMITTEDIN CASSETTE(S) A./CORCOR/CORPathologist provided ICD-10:D04.62CPT .355960 32-Qom-288568:15 HgA1C , Office (76520) HgA1C , Office 5.7 % (Normal) Range: 4.6 - 7.1 :13 CBC W/Diff, Automated Comments: [facility] [address] [place], [place], [address] Absolute Lymph 1.90 {X10_3/ul} (Normal) Range: 0.83-4.51 [...] 4.2-5.4 WBC 4.5 K/mm3 (Normal) Range: 4.4-11.0 26-Zfo-960414:13 Comprehensive Metabolic Profil Comments: [facility] Ntemyzcest4513 [address] [place], [place], [address] GAP 6 (Normal) Range: 5-15 CO2 30.0 [...] 7-18 GLU 89 mg/dL (Normal) Range: 70-110 46-Ixw-498871:13 CRP Comments: [facility] [address] [place], [place], [address] C-REACTIVE PROT < 2.90 mg/L (Normal) Range: 0.0-3.0 Comments: C-Reactive Protein (CRP) provides useful information for thediagnosis, therapy and monitoring of inflammatory processesand associated diseases. For the evaluation of Relative Riskfor Cardiovascular Dise ase, a High Sensitivity CRP (HSCRP)should be ordered. 87-Jkf-732128:13 Erythrocyte Sed Rate Comments: [facility] [address] [place], [place], [address] SED RATE 13 mm/h (Normal) Range: 0-30 69-Vkk-104648:13 Lipid Profile Comments: [facility] [address] [place], [address] VLDL 32 mg/dL (Normal) Range: [...] 200-240 mg/dL Borderline >240 mg/dL High Risk 44-Som-764201:13 Rheumatoid Factor Comments: [facility] [address] [place], [place], [address] RHEUMATOID FAC < 10.0 {IU/mL} (Normal) 43-Dor-259640:13 Thyroid Stim Hormone (TSH) Comments: [facility] Gsaeshtphz7926 [place], [address] TSH 4.62 {uIU/mL} (Abnormal) Range: 0.358-3.74 :54 Lipid Profile Comments: ORDERED: CBCD, CMP, LDH, URIC, XTRADR.FAST ORDERED: LIPID, CMP, VITD, CBCDW[facility] Nobyfnzlsh668[address] [place], [address] VLDL 20 mg/dL (Normal) Range: 5-40 [...] High Risk :54 Vitamin D,25 Hydroxy Comments: [facility] Qrpknalfsn[address] [place], [address] Vitamin D 25-OH 43.8 ng/mL (Normal) Comments: Vitamin D 25(OH) Status Range Deficiency <20 ng/mL (50nmol/L) Insuffciency 20 - 30 ng/mL (50 - 75 nmol/L) Sufficiency 30 - 100 ng/mL (75 - 250 nmol/L) Toxicity >100 ng/mL (>250 nmol/L) :53 CBC W/Diff, Automated Comments: [facility] Tordjdccjf[address] [place], [address] Absolute Lymph [...] Range: 4.4-11.0 :53 Comprehensive Metabolic Profil Comments: [facility] Kklpmcfnhb27[address] [place], [place], [address] GAP 7 (Normal) Range: 5-15 CO2 32.0 [...] 70-110 :53 LDH 182 U/L (Normal) Comments: [facility] T[address]httsfkbp[address] [place], [place], [address] Range: 84-246 :53 Uric Acid Comments: [facility] Ihybuwsguz[address] [place], [place], [address] URIC 4.4 mg/dL (Normal) Range: 2.6-6.0 95-Iep-482193:49 CBC W/Diff, Auto - EPLAB Comments: At [facility] Outpatient [facility] Medical Oncologypatients receive CBC w/auto Differential ONLY. Physicianwill place an order for a manual differential or Pathologistreview at his discretion. [facility]. [address] [address] [place] [address] CARDIOGRAPHER: JOSE KOHLI DO PH:[phone] Hospital U[address]jiiwkax[address] [place], [place], [address] Absolute Lymph 1.40 {X10_3/uL} (Normal) Range: 0.83-4.51 [...] 4.2-5.4 WBC 4.0 K/mm3 (Abnormal) Range: 4.4-11.0 73-Zfq-105796:43 CBC W/Diff, Automated Comments: [facility] Xynrmcsjvv80[address] [place], [place], [address] Absolute Lymph 1.46 {X10_3/ul} (Normal) Range: 0.83-4.51 [...] Serial specimen #1, #2, #3, or #4: [facility] [address] [place], [address] C-REACTIVE PROT < 2.90 mg/L (Normal) Range: 0.0-3.0 Comments: C-Reactive Protein (CRP) provides useful information for thediagnosis, therapy and monitoring of inflammatory processesand associated diseases. For the evaluation of Relative Riskfor Cardiovascular Dise ase, a High Sensitivity CRP (HSCRP)should be ordered. :43 CRP Comments: 'TROP' Serial specimen #1, #2, #3, or #4: [facility] [address] [place], [address] C-REACTIVE PROT < 2.90 mg/L (Normal) Range: 0.0-3.0 Comments: C-Reactive Protein (CRP) provides useful information for thediagnosis, therapy and monitoring of inflammatory processesand associated diseases. For the evaluation of Relative Riskfor Cardiovascular Dise ase, a High Sensitivity CRP (HSCRP)should be ordered. :43 Erythrocyte Sed Rate Comments: [facility] [address] [place], [place], [address] SED RATE 9 mm/h (Normal) Range: 0-30 :43 ASSAY, TROPONIN, QUANTITATIVE Comments: stat; 'TROP' Serial specimen #1, #2, #3, or #4: [address] [place], [place], [address] (aka Troponin I) (87826) TROPONIN-I < 0.02 ng/mL (Normal) Comments: TROPONIN-I EXPECTED VALUES <0.05 NEGATIVE 0.06 - 0.59 AT RISK OF W[place] > OR = 0.60 SUGGEST W[place] 63-Rtl-357818:15 Basic Metabolic Profile (BMP) Comments: PLEASE REDRAW PREVIOUS SPECIMENS MISLABELED'TROP' Serial specimen #1, #2, #3, or #4: 1'CKMB' Serial Specimen #1, #2 or #3? [facility] [address]dxipw[address] [place], [address] GAP 2 (Abnormal) Range: 5-15 [...] 7-18 GLU 103 mg/dL (Normal) Range: 70-110 57-Iqq-544508:15 CBC W/Diff, Automated Comments: [facility] T[address]fovscyyi8[address] [place], [address] Absolute Lymph 1.99 {X10_3/ul} (Normal) [...] 4.2-5.4 WBC 5.8 K/mm3 (Normal) Range: 4.4-11.0 54-Gfq-323114:15 CK-MB Quantitative and Index Comments: PLEASE REDRAW PREVIOUS SPECIMENS MISLABELED'TROP' Serial specimen #1, #2, #3, or #4: 1'CKMB' Serial Specimen #1, #2 or #3? 1[facility] Pgislfvbdo8821 [facility]. [place], [place], [address] CKRI 0.7 % (Normal) Range: 0.0-1.4 Comments: RELATIVE INDEX >1.5% IS PRESUMPTIVELY POSITIVE CPKMB 0.6 ng/mL (Normal) Range: 0.0-5.0 Comments: CK-MB and RI Interpretation MB Relative Index Non-AMI <or= 5 NA Indeterminate > 5 <or= 4 AMI > 5 > 4 CPK TOTAL 82 U/L (Normal) Range: 26-192 91-Foj-210844:15 Partial Thromboplast Time Comments: [facility] Yrtfixayvl[address] [place], [place], [address] PTT 48.2 s (Abnormal) Range: 24.1-36.2 02-Aur-484562:15 Prothrombin Time w/INR Comments: [facility] Dyvtypptfy[address] [place], [place], [address] INR 2.3 (Normal) PROTIME 25.3 s (Abnormal) Range: 11.7-14.9 20-Nqj-366305:15 Troponin-I Comments: PLEASE REDRAW PREVIOUS SPECIMENS MISLABELED'TROP' Serial specimen #1, #2, #3, or #4: 1'CKMB' Serial Specimen #1, #2 or #3? [facility] Wdvidhdbqw3008 [address] [place], [place], [address] TROPONIN-I < 0.02 ng/mL (Normal) Comments: TROPONIN-I EXPECTED VALUES <0.05 NEGATIVE 0.06 - 0.59 AT RISK OF W[place] > OR = 0.60 SUGGEST WY 01-Oep-855058:25 Basic Metabolic Profile (BMP) Comments: Serial Specimen #1, #2 or #3? 1'TROP' Serial specimen #1, #2, #3, or #4: [facility] Isxiuudedw80[address] [place], [place], [address] GAP 10 (Normal) Range: 5-15 CO2 26.0 [...] 7-18 GLU 104 mg/dL (Normal) Range: 70-110 04-Dxe-236199:25 BNP,B-Type NATRIURETIC PEPTIDE Comments: [facility] [address] [place], [place], [address] B-TYPE STEFAN PEP 94.1 pg/mL (Normal) Range: 0-100 99-Tyl-276013:25 CBC W/Diff, Automated Comments: [facility] [address] [place], [place], [address] Absolute Lymph 2.03 {X10_3/ul} (Normal) Range: 0.83-4.51 [...] 4.2-5.4 WBC 6.0 K/mm3 (Normal) Range: 4.4-11.0 79-Sol-206890:25 CK-MB Quantitative and Index Comments: Serial Specimen #1, #2 or #3? 1'TROP' Serial specimen #1, #2, #3, or #4: [address] [place] [address] [address] [facility] [place], [address] CKRI Test not performed % (Normal) Range: 0.0-1.4 CPKMB < 0.5 ng/mL (Normal) Range: 0.0-5.0 Comments: CK-MB and RI Interpretation MB Relative Index Non-AMI <or= 5 NA Indeterminate > 5 <or= 4 AMI > 5 > 4 CPK TOTAL 69 U/L (Normal) Range: 26-192 43-Tji-010273:25 Prothrombin Time w/INR Comments: [facility] Gitlebrwia1518 [address] [facility] [place], [address] INR 1.0 (Normal) PROTIME 13.4 s (Normal) Range: 11.7-14.9 88-Ekx-599794:25 Troponin-I Comments: Serial Specimen #1, #2 or #3? 1'TROP' Serial specimen #1, #2, #3, or #4: [address] [place] [address] Dryqwgpuxj7781 [facility]. [place], [place], [address] TROPONIN-I < 0.02 ng/mL (Normal) Comments: TROPONIN-I EXPECTED VALUES <0.05 NEGATIVE 0.06 - 0.59 AT RISK OF [place] > OR = 0.60 SUGGEST W[place] 25-Zfq-831584:50 Urinalysis, Office (83240) UA - LEUKOCYTE ESTERASE Small (Normal) UA - NITRITE Negative (Normal) URINE UROBILINGN DIPAK TIMED Normal mg/dL (Normal) UA - PROTEIN Negative mg/dL (Normal) UA - PH 7.0 (Normal) UA - BLOOD Non Hemolyzed Trace (Normal) UA - SPECIFIC GRAVITY 1.015 (Normal) UA - KETONES Negative mg/dL (Normal) UA - BILIRUBIN Negative (Normal) UA - GLUCOSE Negative (Normal) 02-Wul-090963:16 URINE ELLE CULTURE-IDENTIFICATN Comments: PATIENT NOT FASTINGPERFORMED BY: [facility] Smgjoe0727 [address] [place] [id number] Information: [id number] ([id number]) Result 1 MUG (Normal) Comments: Mixed urogenital flora1,000 Colonies/mL Urine Culture,Comprehensive Final report (Normal) :58 CBC W/Diff, Automated Comments: [facility] Kwbuwehhtj[address] [place], [place], [address] ; non-emergent till apt Absolute Lymph 1.57 [...] Range: 4.4-11.0 :58 Comprehensive Metabolic Profil Comments: [facility] I[address]zlai[address] [place], [place], [address] GAP 8 (Normal) Range: 5-15 CO2 30.0 [...] (Normal) Range: 70-110 :58 Hemoglobin A1c Comments: [facility] Bcgcsdqciy9[address] [place], [address] HGB A1C 5.9 % (Normal) Range: 4.2-6.3 :58 Lipid Profile Comments: [facility] [address] [place], [address] VLDL 14 mg/dL (Normal) Range: [...] Complete Comments: How was Urine Obtained? CLEAN [facility] [address] [place], [address] MUCUS, URINE 0 SEEN {/hpf} [...] CLARITY Sl. Cloudy (Normal) COLOR Yellow (Normal) 49-Alf-94583:26 CBC W/Diff, Auto - EPLAB Comments: At [facility] Outpatient [facility] Medical Oncologypatients receive CBC w/auto Differential ONLY. Physicianwill place an order for a manual differential or Pathologistreview at his discretion. [facility] OUTPATIENT [facility]. [address] [address] [place] [address] CARDIOGRAPHER: JOSE KOHLI DO PH:[phone] Hospital U[address]znwxkry2652 [place], [address] ; ordered by Dr. Evgeny [...] 4.2-5.4 WBC 7.0 K/mm3 (Normal) Range: 4.4-11.0 1-Kso-903604:30 Basic Metabolic Profile (BMP) Comments: [facility] [address]czzapx[address] [place], [address] GAP 8 (Normal) Range: 5-15 CO2 27.0 [...] 7-18 GLU 84 mg/dL (Normal) Range: 70-110 0-Wre-153521:30 CBC-Complete Blood Cnt No Diff Comments: [facility] Tgabbyyfxb[address] [place], [place], [address] MPV 11.8 fL (Normal) Range: 6.2-12.0 PLT [...] 4.2-5.4 WBC 6.7 K/mm3 (Normal) Range: 4.4-11.0 90-Eri-120262:37 CBC W/Diff, Auto - EPLAB Comments: At [facility] Outpatient [facility] Medical Oncologypatients receive CBC w/auto Differential ONLY. Physicianwill place an order for a manual differential or Pathologistreview at his discretion. [facility] OUTPATIENT [facility]. [address] [address] [place] [address] CARDIOGRAPHER: JOSE KOHLI DO PH:[phone] Hospital [address] [place], [place], [address] Absolute Lymph 1.77 {X10_3/uL} (Normal) Range: 0.83-4.51 [...] 4.2-5.4 WBC 4.3 K/mm3 (Abnormal) Range: 4.4-11.0 38-Vnp-475726:37 Comprehensive Metabolic Profil Comments: Serial Specimen #1, #2 or #3? 1Is Patient Taking Vitamins or Folic Acid Supplements? [facility] Cdfozceucx1011 [place], [place], [address] GAP 7 (Normal) Range: 5-15 CO2 29.0 [...] 7-18 GLU 84 mg/dL (Normal) Range: 70-110 30-Jfa-953539:37 Ferritin Comments: Serial Specimen #1, #2 or #3? 1Is Patient Taking Vitamins or Folic Acid Supplements? [facility] [address] [place], [address] FERRITIN 80 ng/mL (Normal) Range: 8-252 94-Dau-651273:37 Folates, (Folic Acid) Comments: Serial Specimen #1, #2 or #3? 1Is Patient Taking Vitamins or Folic Acid Supplements? [facility] [address] [place], [address] FOLATES 63.40 ng/mL (Abnormal) Range: 3.1-17.5 11-Ilp-511141:37 Iron Comments: Serial Specimen #1, #2 or #3? 1Is Patient Taking Vitamins or Folic Acid Supplements? [facility] [address] [place], [address] IRON 71 ug/dL (Normal) Range: 50-170 63-Xik-865017:37 Iron Binding Capacity,Total Comments: Serial Specimen #1, #2 or #3? 1Is Patient Taking Vitamins or Folic Acid Supplements? [facility] [address] [place], [address] TIBC 335 ug/dL (Normal) Range: 250-450 25-Bim-360582:37 LDH 162 U/L (Normal) Comments: Serial Specimen #1, #2 or #3? 1Is Patient Taking Vitamins or Folic Acid Supplements? [facility] Y[address] [place], [address] Range: 84-246 10-Cvd-724462:37 Uric Acid Comments: Serial Specimen #1, #2 or #3? 1Is Patient Taking Vitamins or Folic Acid Supplements? [facility] Xuppxyamlp3675 [address] [place], [address] URIC 4.5 mg/dL (Normal) Range: 2.6-6.0 09-Pjp-789458:37 Vitamin B12 1077 pg/mL (Abnormal) Comments: [facility] Yxazdljhdn17[address] [place], [address] Range: 211-911 14-Wwd-032416:36 CBC W/Diff, Auto - EPLAB Comments: At [facility] Outpatient [facility] [place] Medical Oncologypatients receive CBC w/auto Differential ONLY. Physicianwill place an order for a manual differential or Pathologistreview at his discretion. [facility]. [address] [place] [place] [address] CARDIOGRAPHER: JOSE KOHLI DO PH:[phone] Hospital Fkurmkvsco3635 [address] [place], [address] Absolute Lymph 1.97 {X10_3/uL} (Normal) Range: 0.83-4.51 [...] (Normal) Range: 4.4-11.0 :48 Vitamin D Hydroxy (76032) Comments: PATIENT WAS FASTINGPERFORMED BY: [facility]6370 [facility] [id number] Vitamin D, 25-Hydroxy 32.8 ng/mL (Normal) Range: 30.0-100.0 Comments: Vitamin D deficiency has been defined by the [place] ofMer[facility] Health – The Jewish Hospitalcine and an Endocrine Society practice guideline as alevel of serum 25-OH vitamin D less than 20 ng/mL (1,2).The Endocrine Society went on to further define vitamin Dinsufficiency as a level between 21 and 29 ng/mL (2).1. IOM ([place] of Medicine). 2010. Dietary reference intakes for calcium and D. [place]: The National Academies Press.2. Jose Carlos MF, Flip [place], David ROME, et al. Evaluation, treatment, and prevention of vitamin D deficiency: an Endocrine Society clinical practice guideline. JCEM. 2010; 96(7):1911-30. :48 CBC with auto diff Comments: PATIENT WAS FASTINGPERFORMED BY: [facility]lin6370 [facility] [id number] Information: [id number] ([id number]) Immature Grans (Abs) 0.0 {x10E3/uL} (Normal) Range: [...] PANEL, COMPREHENSIVE Comments: PATIENT WAS FASTINGPERFORMED BY: LabCoP[facility] HospitalMbesqy4402 [facility] [id number] ([id number]) ALT (SGPT) 10 [iU]/L (Normal) Range: 0-32 [...] mg/dL (Normal) Range: 65-99 :48 LIPID PANEL (35578) Comments: PATIENT WAS FASTINGPERFORMED BY: [facility] [id number] LDL/HDL Ratio 1.2 {ratio_units} (Normal) Range: 0.0-3.2 [...] CREATININE RATIO Comments: PATIENT WAS FASTINGPERFORMED BY: [facility] [id number] (59577) AND (16684) Microalb/Creat Ratio 64.2 {mg/g_creat} (Abnormal) Range: 0.0-30.0 Microalbumin, Urine 46.3 ug/mL (Abnormal) Range: 0.0-17.0 Creatinine, Urine 72.1 mg/dL (Normal) Range: 15.0-278.0 :48 Hemoglobin Glyclated (HGB A1C) Comments: PATIENT WAS FASTINGPERFORMED BY: [facility] [id number] (61397) Hemoglobin A1c 5.7 % (Abnormal) Range: 4.8-5.6 Comments: . Pre-diabetes: 5.7 - 6.4 Diabetes: >6.4 Glycemic control for adults with diabetes: <7.0 62-Wqj-928522:28 CBC W/Diff, Auto - EPLAB Comments: At [facility] Outpatient [facility] Medical Oncologypatients receive CBC w/auto Differential ONLY. Physicianwill place an order for a manual differential or Pathologistreview at his discretion. [facility]. [address] [address] [address] CARDIOGRAPHER: JOSE KOHLI DO PH:[phone] performed at:[facility] Laborato qc[address] [place], [place] [address] ; handled by evgeny Absolute Lymph 1.89 [...] W/Diff, Auto - EPLAB Only Comments: At [facility] Outpatient [facility] Medical Oncologypatients receive CBC w/auto Differential ONLY. Physicianwill place an order for a manual differential or Pathologistreview at his discretion. [facility]. [address] [address] [place] [address] CARDIOGRAPHER: JOSE KOHLI DO PH:[phone] performed at:[facility] Laborato [address] [place] [address] Absolute Neut 2.6 {X10_3/uL} (Normal) [...] Serum Creatinine AND GFR Comments: Test performed at:[facility] [address] [place] [address] EST GFR - AA 62 mL/min (Normal) EST GFR 51 mL/min (Abnormal) CREAT,SERUM 1.12 mg/dL (Normal) Range: 0.55-1.20 Comments: Please note revised CREATININE reference range cznaojbys98/22/2015. 5-Amj-482250:38 CBC W/Diff, Auto - EPLAB Only Comments: At [facility] Outpatient [facility] Medical Oncologypatients receive CBC w/auto Differential ONLY. Physicianwill place an order for a manual differential or Pathologistreview at his discretion. [facility] OUTPATIENT [facility]. [address] [address] [address] CARDIOGRAPHER: JOSE KOHLI DO PH:[phone] performed at:[facility] [address] [place], [place] [address] Absolute Neut 3.0 {X10_3/uL} (Normal) Range: 2.0-7.7 [...] 4.2-5.4 WBC 5.8 K/mm3 (Normal) Range: 4.4-11.0 [id number]:12 FLURESCNT ANTIB SCRN EA Comments: PATIENT WAS FASTINGPERFORMED BY: [id number] [id number] Information: [id number] ([id number]) celiac profile Immunoglobulin A, Qn, Serum 119 [...] - 30 Moderate to Strong Positive >30 [id number]:12 IMMUNOASSAY, ANALYTE Comments: PATIENT WAS FASTINGPERFORMED BY: [facility] [id number] (NON-INFECT) ([id number]) celiac profile Mitochondrial (M2) Antibody <20.0 {Units} (Normal) Range: 0.0-20.0 Comments: Negative 0.0 - 20.0 Equivocal 20.1 - 24.9 Positive >24.9 . Mitochondrial (M2) Antibodies are found in 90-96% of patients with primary biliary cirrhosis. [id number]:12 IGA/IGD/IGG/IGM-EACH (43446) Comments: PATIENT WAS FASTINGPERFORMED BY: ContentRealtime6370 382 CommunicationsDosher [facility] Hospital [id number] Immunoglobulin E, Total 2 {IU/mL} (Normal) Range: 0-100 Immunoglobulin M, Qn, Serum 72 mg/dL (Normal) Range: 40-230 Immunoglobulin G, Qn, Serum 884 mg/dL (Normal) Range: 700-1600 21-Mya-303861:12 METABOLIC PANEL, COMPREHENSIVE Comments: PATIENT WAS FASTINGPERFORMED BY: [facility] BiosensorsNov[facility] [id number] (68713) ALT (SGPT) 12 [iU]/L (Normal) Range: 0-32 [...] Glucose, Serum 94 mg/dL (Normal) Range: 65-99 18-Plo-101334:12 LIPID PANEL (88561) Comments: PATIENT WAS FASTINGPERFORMED BY: [facility] Geubxi8510 [facility] [id number] LDL/HDL Ratio 1.2 {ratio_units} (Normal) Range: 0.0-3.2 [...] Cholesterol, Total 168 mg/dL (Normal) Range: 100-199 3-Usx-584826:25 HgA1C , Office (99676) HgA1C , Office 5.8 % (Normal) Range: 4.6 - 7.1 :0 COLON BIOPSY (CHOOSE See Note (Normal) Comments: Test performed at:[facility] [address] [place], [place] [id number] 4 SITE) Comments: Patient: LUPE LOPEZ : 1945 (69/F) Acct Num: [id number] Phys: Samm Boo Unit Num: [id number] Loc: LABSPEC Specimen: [id number] Received: 09/13/14 - 1609 Spec Type: C CHASE BX TISSUES TISSUES: GROSS DESCRIPTION Received is one container labeled with the patient name and designated biopsy polyp at mid transverse. The specimen consists of one irreg ular fragment of light gonzalez soft tissue that measures 0.3 x 0.2 x 0.1 cm. The specimen is totallysubmitted in one cassette. / AM: 09/17/14 TC:5 CPT: 90632 HEADER OPERATION: Colonoscopy with biopsy PRE-OP DIAGNOSIS: Anemia TISSUE SUBMITTED: Biopsy polyp - mid transverse - rule out adenoma MICROSCOPIC DIAGNOSIS Mid transverse colon polyp, biopsy: Tubular adenoma. AM: 09/17 Signed Jose Kohli 09/17/14 <signature on file> :58 CBC W/Diff, Auto - EPLAB Only Comments: At [facility] Medical Oncologypatients receive CBC w/auto Differential ONLY. Physicianwill place an order for a manual differential or Pathologistreview at his discretion. [facility]. [address] [address] [place] [address] CARDIOGRAPHER: JOSE KOHLI DO PH:[phone] performed at:[facility] [address] [place], [place] [address] Absolute Neut 1.6 {X10_3/uL} Range: 2.0-7.7 (Abnormal) [...] BIOPSY See Note (Normal) Comments: Test performed at:[facility] [address] [place] [address] 00 Comments: Patient: LUPE LOPEZ : 1945 (69/F) Acct Num: [id number] Phys: Evgeny Farmer Unit Num: [id number] Loc: [facility] Specimen: [id number] Received: 07/31/14 - 1215 Spec Type: BMB TISSUES TISSUES: ADDENDUM Addendum Number 1 CYTOGENETICS REPORT FROM [email or web address] INTERPRETATION AND COMMENTS: Karyotype: 46,XX[20] A normal female karyotype w as observed in twenty metaphases analyzed. Please see complete report in e-chart or EMR for further details Addendum Signed Jose [facility] 5 <signature on file> BONE MARROW GROSS [...] and cytogenetics. / AM: 07/31/14 TC:5 CPT: 15615, 07961, 46306 x2, 16052 x3, 19290 BONE MARROW STUDY CBC DATE: 07/31/14 WBC [...] Highlights myeloid elements and megakaryocytes. COMMENT IHC ([id number]) supports the above diagnosis. Flow cytometry study [...] - Smears and send outs Signed Jose [facility] 08/06/14 <signature on file> : IMMUNOHISTOCHEMISTRY See Note (Normal) Comments: Test performed at:[facility] [address] [place] [address] 00 Comments: Patient: LUPE LOPEZ : 1945 (69/F) Acct Num: [id number] Phys: Evgeny Farmer Unit Num: [id number] Loc: [facility] Specimen: [id number] Received: 08/01/14 - 1158 Spec Type: IMMUN O TISSUES TISSUES: SPECIMEN INFORMATION: Tissue Source: Bone marrow biopsy and clot Clinical Info: Anemia Specimen Number: [id number] A AND B CPT code: 47377, 67040 x19 METHOD OLOGY: Deparaffinized sections of prefer/formalin-fixed [...] (11E3) negative BCL-2 (BCL2/100/D5) negative BCL- 6 (LN22/OD999O/A8) negative Cyclin D 1/BCL-1 (SP4) negative Block B CD3 (LN10/PS1) positive CD5 (4C7/SP10) positive CD10 (56C6) negative CD20 (MJ1/L26) negative CD23 (1B12) negative CD45 (X16/99/ RP2/18) positive CD79a (11E3) negative BCL-2 (BCL2/100/D5) positive BCL-6 (LN22/WL925S/A8) nega tive Cyclin D1/BCL-1 (SP4) negative These tests were developed and their performance characteristics determined by [facility]. They may not have been cleared or approved by the U.S. Food and Drug Administration. The FDA has determined that such clearance or approval is not necessary. INTERPRETATION: A. Bone marrow biopsy: Polytypic lymphoid aggregates. B. Bone marrow clot: Polytypic lymphoid aggregates. Comment: There is no evidence of lymphoma. AM:jeniffer 08/02/14 PHYSICIAN AND INSTITUTION [place] [address] Signed Jose [facility] 08/06/14 <signature on file> 7-Aao-264376:59 CBC W/Diff, Auto - EPLAB Only Comments: At [facility] Medical Oncologypatients receive CBC w/auto Differential ONLY. Physicianwill place an order for a manual differential or Pathologistreview at his discretion. [facility]. [address] [address] [place] [address] CARDIOGRAPHER: JOSE KOHLI DO PH:[phone] performed at:[facility] [address] [place], [place] [address] Absolute Neut 2.3 {X10_3/uL} (Normal) Range: 2.0-7.7 [...] 4.2-5.4 WBC 5.2 K/mm3 (Normal) Range: 4.4-11.0 82-Byn-50422:23 CBC W/Diff, Auto - EPLAB Only Comments: At [facility] Outpatient [facility] patientsreceive CBC w/auto Differential ONLY. Physician will placean order for a manual differential or Pathologist review athis discretion. [facility]. [address] [address] [address] CARDIOGRAPHER: JOSE KOHLI DO PH:[phone] performed at:[facility] [address] [place], [place] [address] Absolute Neut 2.0 {X10_3/uL} (Normal) Range: 2.0-7.7 [...] 4.2-5.4 WBC 4.0 K/mm3 (Abnormal) Range: 4.4-11.0 14-Pkr-68683:23 Comprehensive Metabolic Profil Comments: Serial Specimen #1, #2 or #3? 1Test performed at:[facility] [address] [place], [place] [address] GAP 6 (Normal) Range: 5-15 CO2 30.0 [...] Specimen #1, #2 or #3? 1Test performed at:[facility] [address] [place] [address] FERRITIN 255 ng/mL (Abnormal) Range: 8-252 :23 Iron Comments: Serial Specimen #1, #2 or #3? 1Test performed at:[facility] [address] [place] [address] IRON 72 ug/dL (Normal) Range: 50-170 :23 Iron Binding Capacity,Total Comments: Serial Specimen #1, #2 or #3? 1Test performed at:[facility] [address] [place] [address] TIBC 320 ug/dL (Normal) Range: 250-450 :23 LDH 176 U/L (Normal) Comments: Serial Specimen #1, #2 or #3? 1Test performed at:[facility] [address] [place] [address] Range: 87-241 :23 Uric Acid Comments: Serial Specimen #1, #2 or #3? 1Test performed at:[facility] [address] [place] [address] URIC 5.2 mg/dL (Normal) Range: 2.6-6.0 :45 Copper, Serum or Plasma Comments: Test performed at:[facility] [address] [place] [address] COPPER 112 ug/dL (Normal) Range: 72-166 Comments: Detection Limit = 5Performed at: [facility] LabCoPSE&G Children's Specialized HospitalEqzhww5399 [place], [place] [id number] Director: Scot Nuñez PhD, Phone: [phone] at: [facility] LabCoDonald Ville [address] [place], [place] [address]Qrk Director: Satish Mayer MD, Phone: [phone] 25-Jun-20149:45 Lead, Blood Adult 16+yrs Comments: Test performed at:[facility] [address] [facility] [place] [address] LEAD *Form (Normal) Comments: None Detected Environmental Exposure: WHO Recommendation <20 Occupational Exposure: OSHA Lead Std 40 NIKI 30 Detection Limit = 1 2-Lpn-336930:43 Comprehensive Metabolic Profil Comments: Serial Specimen #1, #2 or #3? 1Is Patient Taking Vitamins or Folic Acid Supplements? NTest performed at:[facility] F[address] [facility]. [place], [place] [address] GAP 6 (Normal) Range: 5-15 CO2 30.0 [...] 7-18 GLU 86 mg/dL (Normal) Range: 70-110 7-Ydy-621515:43 Direct Antiglobulin Diann YUVAL Comments: Test performed at:[facility] [address] [place] [address] DIRECT DIANN= NEG w/POLYSPECIFIC (Normal) 0-Gdu-654986:43 Erythropoietin Comments: Is Patient Fasting? NTest performed at:[facility] [address] [place] [address] ERYTHROP 138282 24.8 m[iU]/mL (Abnormal) Range: 2.6-18.5 6-Ntt-017255:43 Ferritin Comments: Serial Specimen #1, #2 or #3? 1Is Patient Taking Vitamins or Folic Acid Supplements? NTest performed at:[facility] [address] [place] [address] FERRITIN 11 ng/mL (Normal) Range: 8-252 9-Ktn-186433:43 Folates, (Folic Acid) Comments: Serial Specimen #1, #2 or #3? 1Is Patient Taking Vitamins or Folic Acid Supplements? NTest performed at:[facility] [address] [place] [address] FOLATES 48.80 ng/mL (Abnormal) Range: 3.1-17.5 :43 Haptoglobin Comments: Is Patient Fasting? NTest performed at:[facility] [address] [place] [address] HAPTOGLOB 1628 224 mg/dL (Abnormal) Range: 34-200 Comments: Performed at: - [facility]Co[address] [id number] Director: Scot Nuñez PhD, Phone: [phone] 4-Zzy-083275:43 THEE + Protein Elect, Serum Comments: Is Patient Fasting? NTest performed at:[facility] [address] [place] [address] NOTE: Comment (Normal) Comments: Protein electrophoresis scan will follow via computer,mail, or mushroom growth media mixer delivery. THEE RESULT,S Comment: (Normal) Comments: THEE SHOWS ATYPICAL LAMBDA. A/G RATIO 1.4 (Normal) Range: 0.7-2.0 GLOBULIN, TOTAL 2.8 g/dL (Normal) Range: 2.0-4.5 M-SPIKE (Normal) Comments: Not Observed GAMMA GLOBULIN 0.9 g/dL (Normal) Range: 0.5-1.6 BETA GLOBULIN 0.9 g/dL (Normal) Range: 0.6-1.3 AOTCH-9-ESBZ 0.9 g/dL (Normal) Range: 0.4-1.2 WGOCI-2-PXQF 0.3 g/dL (Normal) Range: 0.1-0.4 ALBUMIN 3.9 g/dL (Normal) Range: 3.2-5.6 IMMUNOGL M 1792 69 mg/dL (Normal) Range: 40-230 IMMUNO A 1784 133 mg/dL (Normal) Range: 91-414 IMMUNO G 1776 959 mg/dL (Normal) Range: 700-1600 PROTEIN,TOTAL 6.7 g/dL (Normal) Range: 6.0-8.5 :43 Iron Binding Capacity,Total Comments: Serial Specimen #1, #2 or #3? 1Is Patient Taking Vitamins or Folic Acid Supplements? NTest performed at:[facility] [address] [place] [address] TIBC 407 ug/dL (Normal) Range: 250-450 7-Efe-746764:43 Kremmling Lambda Light Chains Comments: Is Patient Fasting? NTest performed at:[facility] [address] [facility] [place] [address] KAPPA/LAMBDA % 1.35 (Normal) Range: 0.26-1.65 FR LAMBDA LT CH 18.72 mg/L (Normal) Range: 5.71-26.30 FR KAPPA LT CHN 25.25 mg/L (Abnormal) Range: 3.30-19.40 3-Nsn-437486:43 LDH 173 U/L (Normal) Comments: Serial Specimen #1, #2 or #3? 1Is Patient Taking Vitamins or Folic Acid Supplements? NTest performed at:[facility] [address] [place] [address] Range: 87-241 3-Fcx-705125:43 Retic Panel Comments: Test performed at:[facility] [address] [place] [address] IPF 2.5 % (Normal) Range: 1.0-7.9 [...] 3.00-15.90 RETIC 0.97 % (Normal) Range: 0.5-1.5 7-Ung-242872:43 Thyroid Stim Hormone (TSH) Comments: Serial Specimen #1, #2 or #3? 1Is Patient Taking Vitamins or Folic Acid Supplements? NTest performed at:[facility] [address] [place] [address] TSH 1.87 {uIU/mL} (Normal) Range: 0.358-3.74 4-Dwc-728362:43 Uric Acid Comments: Serial Specimen #1, #2 or #3? 1Is Patient Taking Vitamins or Folic Acid Supplements? NTest performed at:[facility] [address] [place] [address] URIC 5.0 mg/dL (Normal) Range: 2.6-6.0 1-Drq-068854:43 Vitamin B12 548 pg/mL (Normal) Comments: Test performed at:[facility] [address] [place] [address] Range: 211-911 1-Dwk-422200:42 CBC W/Diff, Auto - EPLAB Only Comments: At [facility] patientsreceive CBC w/auto Differential ONLY. Physician will placean order for a manual differential or Pathologist review athis discretion. [facility]. [address] [address] [place] [address] CARDIOGRAPHER: JOSE KOHLI DO PH:[phone] performed at:[facility] [address] [place] [address] Absolute Neut 2.6 {X10_3/uL} (Normal) Range: 2.0-7.7 [...] 4.2-5.4 WBC 4.8 K/mm3 (Normal) Range: 4.4-11.0 90-Xdy-22078:56 METABOLIC PANEL, COMPREHENSIVE Comments: PATIENT WAS FASTINGPERFORMED BY: LabCoPSE&[facility] Children[facility] Specialized HospitalNnnqnb6671 [facility] [id number] (77168) ALT (SGPT) 5 [iU]/L (Normal) Range: 0-32 [...] mg/dL (Normal) Range: 65-99 :56 LIPID PANEL (65474) Comments: PATIENT WAS FASTINGPERFORMED BY: [employer]70 [facility]Nov[facility] [id number] LDL/HDL Ratio 1.3 {ratio_units} (Normal) Range: 0.0-3.2 [...] DIFF WBC Comments: PATIENT WAS FASTINGPERFORMED BY: ContentRealtime6370 [facility] [id number] Information: [id number] (20177) Immature Grans (Abs) 0.0 {x10E3/uL} (Normal) Range: [...] 3.77-5.28 WBC 4.8 {x10E3/uL} (Normal) Range: 3.4-10.8 0-Nqd-467224:44 Protein Electro, Random Urine Comments: PATIENT WAS FASTINGPERFORMED BY: [facility]6370 [facility] [id number] Please note: SPRCS (Normal) Comments: Protein electrophoresis scan will follow via computer, mail, orcourier delivery. M-Abhinav, % Not Observed % (Normal) Gamma Globulin, U 19.9 % (Normal) Beta Globulin, U 25.8 % (Normal) Plrwz-3-Qnukyghf, U 12.8 % (Normal) Firal-6-Gkqkvbow, U 1.3 % (Normal) Albumin, U 40.2 % (Normal) Protein,Total,Urine 13.5 mg/dL (Normal) Range: 0.0-15.0 :44 Protein Electro.,S Comments: PATIENT WAS FASTINGPERFORMED BY: [place] 5277570 [facility] [id number]; will review on 05/07 appt Please note: SPRCS (Normal) Comments: Protein electrophoresis scan will follow via computer, mail, orcourier delivery. A/G Ratio 1.2 (Normal) Range: 0.7-2.0 Globulin, Total 3.0 g/dL (Normal) Range: 2.0-4.5 M-Abhinav Not Observed g/dL (Normal) Gamma Globulin 1.0 g/dL (Normal) Range: 0.5-1.6 Beta Globulin 0.8 g/dL (Normal) Range: 0.6-1.3 Rwmmm-2-Vqoyhcsw 0.9 g/dL (Normal) Range: 0.4-1.2 Pxkki-6-Fvqozjxw 0.3 g/dL (Normal) Range: 0.1-0.4 Albumin 3.7 g/dL (Normal) Range: 3.2-5.6 Protein, Total, Serum 6.7 g/dL (Normal) Range: 6.0-8.5 Written Authorization WAR (Normal) Comments: PATIENT WAS FASTINGPERFORMED BY: [facility]6370 [facility] [id number] :44 Comments: Written Authorization Received.Authorization received from ENRIKE JAIMES [id number] by Jyothi Boland :44 LIPID PANEL (44528) Comments: PATIENT WAS FASTINGPERFORMED BY: [facility]6370 [facility] [id number] LDL/HDL Ratio 1.9 {ratio_units} (Normal) Range: 0.0-3.2 [...] Cholesterol, Total 211 mg/dL (Abnormal) Range: 100-199 9-Dmf-212575:37 FECAL OCCULT- Tubes sent home (15467) FECAL OCCULT HGB ASSAY, QUAL, 1-3 SIMULTANEOU positive (Normal) 1-Swf-949275:44 RETICULOCYTE COUNT MANUL Comments: PATIENT WAS FASTINGPERFORMED BY: [facility] BiosensorsNov[facility] [id number] (40383) Reticulocyte Count 1.6 % (Normal) Range: 0.6-2.6 1-Wss-136176:44 LDH (LD) (LACTATE DEHYDROGENASE) Comments: PATIENT WAS FASTINGPERFORMED BY: [employer] Media ManagementDosher Memorial Hospital [id number] (71555) LDH 207 [iU]/L (Normal) Range: 119-226 2-Pxh-768968:44 IRON BINDING CAPACITY (TIBC) Comments: PATIENT WAS FASTINGPERFORMED BY: [facility] BiosensorsNov[facility] [id number] (42916) Iron Saturation 16 % (Normal) Range: 15-55 Iron, Serum 50 ug/dL (Normal) Range: 35-155 UIBC 270 ug/dL (Normal) Range: 150-375 Iron Bind.Cap.(TIBC) 320 ug/dL (Normal) Range: 250-450 5-Vtv-544570:44 FERRITIN (99879) Comments: PATIENT WAS FASTINGPERFORMED BY: [facility] BiosensorsNov[facility] [id number] Ferritin, Serum 84 ng/mL (Normal) Range: 15-150 6-Jni-910617:44 CBC W/AUTO DIFF WBC (98191) Comments: PATIENT WAS FASTINGPERFORMED BY: [employer] ManagementDosher Memorial Hospital [id number] Immature Grans (Abs) 0.0 {x10E3/uL} (Normal) Range: [...] CREATININE RATIO Comments: PATIENT WAS FASTINGPERFORMED BY: LabCoBrian Ville 8184470 [facility] [id number] (04055) AND (25833) Microalb/Creat Ratio 21.9 {mg/g_creat} (Normal) Range: 0.0-30.0 Microalbumin, Urine 22.0 ug/mL (Abnormal) Range: 0.0-17.0 Creatinine, Urine 100.3 mg/dL (Normal) Range: 15.0-278.0 :44 Hemoglobin Glyclated (HGB A1C) Comments: PATIENT WAS FASTINGPERFORMED BY: [facility]6370 [facility] [id number] (10457) Hemoglobin A1c 5.5 % (Normal) Range: 4.8-5.6 Comments: . Increased risk for diabetes: 5.7 - 6.4 Diabetes: >6.4 Glycemic control for adults with diabetes: <7.0 :39 Microscopic Examination Comments: PATIENT NOT FASTINGPERFORMED BY: [facility]6370 [facility] [id number] Bacteria Few (Normal) Mucus Threads Present (Normal) Epithelial Cells (non renal) 0-10 {/hpf} (Normal) Range: 0 - 10 RBC 0-2 {/hpf} (Normal) Range: 0 - 2 WBC 6-10 {/hpf} (Abnormal) Range: 0 - 5 :37 D-Dimer (09570) Comments: PATIENT NOT FASTINGPERFORMED BY: [facility]6370 [facility] [id number] Information: [id number] D-Dimer 0.84 {mg/L_FEU} (Abnormal) Range: 0.00-0.49 Comments: In conjunction with a non-high clinical probability assessment, anormal (<0.50 mg/L FEU) result excludes deep vein thrombosis (DVT)and pulmonary embolism (PE) with high sensitivity. :39 Vitamin D Hydroxy (79251) Comments: PATIENT NOT FASTINGPERFORMED BY: [facility]6370 [facility] [id number] Vitamin D, 25-Hydroxy 38.7 ng/mL (Normal) Range: 30.0-100.0 Comments: Vitamin D deficiency has been defined by the [place] ofMedicine and an Endocrine Society practice guideline as alevel of serum 25-OH vitamin D less than 20 ng/mL (1,2).The Endocrine Society went on to further define vitamin Dinsufficiency as a level between 21 and 29 ng/mL (2).1. IOM ([place] of Medicine). 2010. Dietary reference intakes for calcium and D. [place]: The National Academies Press.2. Jose Carlos MF, Flip [place], David ROME, et al. Evaluation, treatment, and prevention of vitamin D deficiency: an Endocrine Society clinical practice guideline. JCEM. 2010; 96(7):1911-30. 61-Www-283811:39 Valproic Acid (18561) Comments: PATIENT NOT FASTINGPERFORMED BY: CB [facility] [address] Brown RoadDublin [place] [id number] Valproic Acid (Depakote),S 105 ug/mL (Abnormal) Range: 50-100 Comments: Detection Limit = 4 <4 indicates None Detected . Toxicity may occur at levels of 100-500. Measurements of free unbound valproic acid may improve the assess- ment of clinical response.Patient drug level exceeds published reference range. Evaluateclinically for signs of potential toxicity. 41-Oad-567059:39 VITAMIN B-12 (CYANOCOBALAMIN) Comments: PATIENT NOT FASTINGPERFORMED BY: [facility] [address] [place] [id number] (71545) Vitamin B12 1017 pg/mL (Abnormal) Range: 211-946 03-Myg-800566:39 FERRITIN (78095) Comments: PATIENT NOT FASTINGPERFORMED BY: [facility] [address] Software[address] [place] [id number] Ferritin, Serum 77 ng/mL (Normal) Range: 15-150 52-Stk-529014:39 IRON (83176) Comments: PATIENT NOT FASTINGPERFORMED BY: [facility] [address] MixCommerceDublin [place] [id number] Iron, Serum 32 ug/dL (Abnormal) Range: 35-155 12-Ypo-140238:39 CBC W/AUTO DIFF WBC Comments: PATIENT NOT FASTINGPERFORMED BY: CB [facility] [address] MixCommerceDublin [place] [id number] Information: [id number],2ND ORDER NO DRAW F EE (24730) Immature Grans (Abs) 0.0 {x10E3/uL} (Normal) Range: [...] 3.77-5.28 WBC 6.2 {x10E3/uL} (Normal) Range: 3.4-10.8 72-Mnv-062208:39 TSH (81335) Comments: PATIENT NOT FASTINGPERFORMED BY: [employer] Akurjs6252 [facility] [id number] TSH 1.800 {uIU/mL} (Normal) Range: 0.450-4.500 93-Lwc-705971:39 URINALYSIS, W/ MICRO (51931) Comments: PATIENT NOT FASTINGPERFORMED BY: [employer] Zonznl1682 [facility] [id number] Microscopic Examination See below: (Normal) Comments: Microscopic was indicated and was performed. Nitrite, Urine Negative (Normal) Urobilinogen,Semi-Qn 0.2 mg/dL (Normal) Range: 0.0-1.9 Bilirubin Negative (Normal) Occult Blood Negative (Normal) Ketones Negative (Normal) Glucose Negative (Normal) Protein Negative (Normal) WBC Esterase 1+ (Abnormal) Appearance Clear (Normal) Urine-Color Yellow (Normal) pH 6.5 (Normal) Range: 5.0-7.5 Specific [place] 1.013 (Normal) Range: 1.005-1.030 98-Vxj-549238:39 METABOLIC PANEL, COMPREHENSIVE Comments: PATIENT NOT FASTINGPERFORMED BY: LabCoPSE&G Children's Specialized HospitalBslpqb5648 [facility] [id number] (76960) ALT (SGPT) 5 [iU]/L (Normal) Range: 0-32 [...] Syncope Planned Observations CBC W/AUTO DIFF WBC (62398)Indication: Hypertension, benign On: :29 Request METABOLIC PANEL, COMPREHENSIVE (67400)Indication: Hypertension, benign On: :29 Request CBC with auto diff (21294)Indication: Elevated hemoglobin A1c On: 35-Rvm-326794:16 Request METABOLIC PANEL, COMPREHENSIVE (25375)Indication: Elevated hemoglobin A1c On: 76-Wpa-217202:16 Request HGB A1C (07542)Indication: Elevated hemoglobin A1c On: 84-Hur-342782:16 Request LIPID PANEL (90774)Indication: Other hyperlipidemia On: 05-Ziu-289788:16 Request TSH (20618)Indication: Abnormal TSH On: 09-Hed-076158:09 Request TSH (THYROID STIMULATING HORMONE) (09922)Indication: Abnormal TSH On: 73-Qnk-581086:15 Request LIPID PANEL (40805)Indication: Other hyperlipidemia On: 20-Ffh-663551:14 Request CBC with auto diff (42402)Indication: Elevated hemoglobin A1c On: 90-Euf-101446:14 Request METABOLIC PANEL, COMPREHENSIVE (48424)Indication: Elevated hemoglobin A1c On: 80-Yyw-928577:14 Request HGB A1C (14446)Indication: Elevated hemoglobin A1c On: 57-Etz-178221:14 Request CBC W/AUTO DIFF WBC (28761)Indication: Anemia On: 98-Zsv-794389:30 Request CBC with auto diff (00587)Indication: Anemia On: 75-Arb-176410:02 Request METABOLIC PANEL, COMPREHENSIVE (78146)Indication: Impaired Fasting Glucose (Renamed from Elevated fasting blood sugar) On: 16-Cjc-603378:02 Request TSH (92562)Indication: Abnormal TSH On: 18-Dtv-030878:01 Request SED RATE ERYTHROCYTE (79794)Indication: Anemia On: :58 Request C-REACTIVE PROTEIN (77724)Indication: Anemia On: :58 Request FOLIC ACID SERUM (96261)Indication: Anemia On: :58 Request VITAMIN B-12 (CYANOCOBALAMIN) (01508)Indication: Anemia On: :58 Request IGA/IGD/IGG/IGM-EACH (82272)Indication: Anemia On: :33 Request CBC W/AUTO DIFF WBC (19234)Indication: Impaired Fasting Glucose (Renamed from Elevated fasting blood sugar) On: : Request METABOLIC PANEL, COMPREHENSIVE (60515)Indication: Impaired Fasting Glucose (Renamed from Elevated fasting blood sugar) On: : Request Vitamin D Hydroxy (35623)Indication: Other osteoporosis On: : Request CBC with auto diff (96958)Indication: Anemia On: :22 Request TSH (THYROID STIMULATING HORMONE) (25880)Indication: Abnormal TSH On: :21 Request HGB A1C (73062)Indication: Impaired Fasting Glucose (Renamed from Elevated fasting blood sugar) On: : Request serum immunofixation (75847)Indication: Anemia On: : Request urine immunofixation (44584)Indication: Anemia On: : Request LIPID PANEL ([id number])Indication: Other hyperlipidemia On: :15 Request METABOLIC PANEL, COMPREHENSIVE ([id number])Indication: Hypertension, benign On: 14-Gjb-748274:14 Request LIPID PANEL ([id number])Indication: Fibromyalgia (Renamed from Diffuse myofascial pain syndrome) On: 86-Ylu-392328:14 Request TSH (THYROID STIMULATING HORMONE) ([id number])Indication: Abnormal TSH On: :15 Request HGB A1C ([id number])Indication: Impaired Fasting Glucose (Renamed from Elevated fasting blood sugar) On: :15 Request CBC with auto diff ([id number])Indication: Hypertension, benign On: :15 Request METABOLIC PANEL, COMPREHENSIVE (54034)Indication: Hypertension, benign On: :15 Request LIPID PANEL (30604)Indication: Other hyperlipidemia On: :14 Request ASSAY, TROPONIN, QUANTITATIVE (aka Troponin I) (79392)Indication: Atypical chest pain On: 7-Eap-028418:02 Request TSH (36889)Indication: Abnormal TSH On: 5-Rim-409687:56 Request CBC WITH MANUAL DIFF ([id number])Indication: Other specified nutritional anemias On: 5-Ume-355980:48 Request Comments: 1 month TSH (THYROID STIMULATING HORMONE) (11778)Indication: Hypertension, benign On: :15 Request Iron (38398)Indication: Anemia On: 1-Wca-538912:59 Request METABOLIC PANEL, COMPREHENSIVE (85877)Indication: Other osteoporosis On: 0-Cgo-790411:01 Request Vitamin D Hydroxy (13268)Indication: Other osteoporosis On: :37 Request LIPID PANEL (32884)Indication: Other hyperlipidemia On: :36 Request HGB A1C (57192)Indication: Impaired Fasting Glucose (Renamed from Elevated fasting blood sugar) On: :35 Request MICROALBUMIN: CREATININE RATIO (60375) AND (74660)Indication: Impaired Fasting Glucose (Renamed from Elevated fasting blood sugar) On: :35 Request Metabolic Panel, Comprehensive (62557)Indication: Gastroenteritis On: 07-Yqa-919863:09 Request CBC, Platelets & Auto Diff ([id number])Indication: Gastroenteritis On: 13-Rbo-022550:09 Request Sed Rate Erythrocyte (97018)Indication: Gastroenteritis On: 69-Apb-475247:09 Request CBC WITH MANUAL DIFF (29053)Indication: Anemia On: :12 Request Comments: 6 weeks TSH (89882)Indication: Abnormal TSH On: 8-Ucb-325286:11 Request Comments: 6 weeks VITAMIN B-12 (CYANOCOBALAMIN) (53415)Indication: Anemia On: :39 Request TSH ([id number])Indication: Abnormal TSH On: 50-Wco-41323:40 Request CBC W/AUTO DIFF WBC (03554)Indication: Anemia On: 59-Taf-18584:40 Request TSH ([id number])Indication: Abnormal TSH On: 80-Vqk-13516:25 Request Comments: ADD ON METABOLIC PANEL, COMPREHENSIVE ([id number])Indication: Impaired Fasting Glucose (Renamed from Elevated fasting blood sugar) On: 97-Ekp-468759:43 Request Anti-TPO Antibody (85880)Indication: Abnormal TSH On: :42 Request T4, FREE (THYROXINE) (25902)Indication: Abnormal TSH On: :42 Request T3, FREE (TRIDOTHYRONINE) ([id number])Indication: Abnormal TSH On: :42 Request RHEUMATOID FACTOR-QUANT (37390)Indication: Chronic right shoulder pain On: :32 Request SED RATE ERYTHROCYTE (70763)Indication: Chronic right shoulder pain On: :32 Request C-REACTIVE PROTEIN (56606)Indication: Chronic right shoulder pain On: :32 Request CBC W/AUTO DIFF WBC (35563)Indication: Hypertension, benign On: :31 Request METABOLIC PANEL, COMPREHENSIVE (34382)Indication: Hypertension, benign On: :31 Request LIPID PANEL (53599)Indication: Other hyperlipidemia On: :31 Request TSH ([id number])Indication: Chest pain at rest On: 18-Mxf-860124:31 Request HGB A1C (20231)Indication: Impaired Fasting Glucose (Renamed from Elevated fasting blood sugar) On: 1-Kac-472816:00 Request CBC with auto diff ([id number])Indication: Impaired Fasting Glucose (Renamed from Elevated fasting blood sugar) On: 2-Qsu-649437:00 Request METABOLIC PANEL, COMPREHENSIVE (65537)Indication: Impaired Fasting Glucose (Renamed from Elevated fasting blood sugar) On: 5-Ulb-104137:00 Request LIPID PANEL (36484)Indication: Other hyperlipidemia On: 7-Qmp-624425:00 Request VITAMIN B-12 (CYANOCOBALAMIN) (55507)Indication: Other specified nutritional anemias On: 1-Phf-121482:59 Request Vitamin D Hydroxy (68215)Indication: Other osteoporosis On: :59 Request CBC (AUTO) ([id number])Indication: Other osteoporosis On: :48 Request Vitamin D Hydroxy ([id number])Indication: Other osteoporosis On: :48 Request METABOLIC PANEL, COMPREHENSIVE (88804)Indication: Other hyperlipidemia On: :48 Request LIPID PANEL ([id number])Indication: Other hyperlipidemia On: :48 Request SED RATE ERYTHROCYTE (37201)Indication: Chest pain, unspecified type On: :39 Request Comments: stat C-REACTIVE PROTEIN ([id number])Indication: Chest pain, unspecified type On: :39 Request Comments: stat CBC W/AUTO DIFF WBC (56743)Indication: Chest pain, unspecified type On: :39 Request Comments: stat Hemoglobin Glyclated (HGB A1C) ([id number])Indication: Impaired Fasting Glucose (Renamed from Elevated fasting blood sugar) On: 43-Due-867125:50 Request URINALYSIS, W/ MICRO (93773)Indication: Hypertension, benign On: 80-Jnx-284776:49 Request CBC with auto diff ([id number])Indication: Other specified nutritional anemias On: 08-Ija-499942:49 Request METABOLIC PANEL, COMPREHENSIVE (22752)Indication: Other specified nutritional anemias On: 95-Cdb-714161:49 Request LIPID PANEL ([id number])Indication: Other hyperlipidemia On: 69-Otk-909441:49 Request CBC W/AUTO DIFF WBC ([id number])Indication: Other specified nutritional anemias On: :24 Request METABOLIC PANEL, COMPREHENSIVE (63472)Indication: Other hyperlipidemia On: 31-Npx-676162:24 Request LIPID PANEL ([id number])Indication: Other hyperlipidemia On: 73-Cjl-971638:24 Request IRON ([id number])Indication: Other specified nutritional anemias On: 3-Rwm-233887:37 Request Planned Encounters Medical; [facility] [...] DIGITAL TOMOSYNTHESIS OF On: 17-Nov-2017 Intent BREAST ([id number])By: Fast DO, Enrike A Fast DO, Enrike A MRI OF THORACIC SPINE WITHOUT On: 13-Aug-2017 Intent CONTRAST ([id number])By: Fast DO, Enrike A Fast DO, Enrike A MRI LUMBAR SPINE W/O CONTRAST On: 13-Aug-2017 Intent ([id number])By: Fast DO, Enrike A Fast DO, Enrike A INJECTION, PROLIA ([id number])By: Fast On: 26-Jul-2017 Intent DO, Enrike A Fast DO, Enrike A Comments: Prolia prefilled syringe 60mg/mlLot:[id number]:10/2019L arm SQPt tolerated wellMLONG ,PLANT OPERATIONS VICE PRESIDENT Radiology - Lumbar SpineBy: Fast DO, On: 09-Jun-2017 Intent Enrike A Fast DO, Enrike A Radiology - Thoracic SpineBy: Fast On: 09-Jun-2017 Intent DO, Enrike A Fast DO, Enrike A MRI OF BRAIN WITH AND WITHOUT On: 13-Apr-2017 Intent CONTRAST ([id number])By: Fast DO, Enrike A Fast DO, Enrike A ELECTROCARDIOGRAM, COMPLETE (ECG) On: 13-Apr-2017 Intent ([id number])By: Fast DO, Enrike A Fast DO, Comments: [...] DIGITAL TOMOSYNTHESIS OF On: 30-Sep-2016 Intent BREAST ([id number])By: Fast DO, Enrike A Comments: end of oct Fast DO, Enrike A CT - Chest (Without Contrast)By: On: 30-Sep-2016 Intent Fast DO, Enrike A Fast DO, Enrike A Cartoid DopplerBy: Fast DO, Enrike A On: 04-Sep-2016 Intent Fast DO, Enrike A DEXA SCAN AXIAL SKELETON ([id number])By: On: 04-Sep-2016 Intent Fast DO, Enrike A Fast DO, Enrike A Comments: mid september INJECTION, PROLIA ([id number])By: Fast On: 26-Aug-2016 Intent DO, Enrike A Fast DO, Enrike A Comments: prolialot:[id number]:12ite:lt subqroute:subqdose:60mg/mlD.ARNOLDO Ardon ELECTROCARDIOGRAM, COMPLETE (ECG) On: 22-Jul-2016 Intent (02419)By: Fast DO, Enrike A Fast DO, Comments: ekg showed normal sinus rhythym, normal axis, no acute st/t wave changes Enrike A Cartoid DopplerBy: Fast DO, Enrike A On: 25-May-2016 Intent Fast DO, Enrike A Comments: bilateral INFUSION, NORMAL SALINE SOLUTION , On: 09-Apr-2016 Intent 1000 CC (Special Coverage Instructions Apply. See MCM: 2049) ([id number])By: Madyson Montiel MD ELECTROCARDIOGRAM, COMPLETE (ECG) On: 12-Feb-2016 Intent ([id number])By: Fast DO, Enrike A Fast DO, Comments: ekg showed normal sinus rhythym, normal axis, no acute st/t wave changes Enrike A CT - Chest (Without Contrast)By: On: 12-Feb-2016 Intent Fast DO, Enrike A Fast DO, Enrike A Flu Vaccine (Quadrivalent) 27511Zq: On: 12-Feb-2016 Intent Fast DO, Enrike A Fast DO, Enrike A Comments: FLUlot: [id number]:Lt deltoidroute:IMdose:.5mlARNOLDO WALLACE ADMINISTRATION OF INFLUENZA VIRUS On: 12-Feb-2016 Intent VACCINE ([id number])By: Fast DO, Enrike A Fast DO, Enrike A MAMMOGRAM, SCREENING, BOTH BREAST On: 13-Nov-2015 Intent ([id number])By: Fast DO, Enrike A Fast DO, Enrike [...] Intent Fast DO, Enrike A [place] ([id number])By: Reva, On: 06-Mar-2015 Intent Elliott Comments: Zosterlot:[id number]:01/26/16ite:lt subqroute:subqDEMICK, SMA PNEUM VAC ADLT/IMUMNOSPR, SBC/INTRM On: 20-Feb-2015 Intent ([id number])By: Visit, Nurse Comments: Pnuemovaxlot:[id number]:10/30/16site:lt deltoidroute:IMDose:.5mlDEMICK, SMA Flu Vaccine (Quadrivalent) 89339Wg: On: 11-Feb-2015 Intent Fast DO, Enrike A Fast DO, Enrike A Comments: Lot #:[id number] date: 08/2015Amount given:prefilled syringeSite given:L Dltd, IMGiven by: MARGOTH Garibay and ABN signed ADMINISTRATION OF INFLUENZA VIRUS On: 11-Feb-2015 Intent VACCINE ([id number])By: Fast DO, Enrike A Fast DO, Enrike A MAMMOGRAM, SCREENING, BOTH BREAST On: 25-Sep-2014 Intent ([id number])By: Fast DO, Enrike A Fast DO, Enrike [...] 17-Apr-2014 Intent CHEST WITH AND WITHOUT CONTRAST ([id number])By: Enrike Jaimes DO A Fast DO, Enrike A CT - Brain/HeadBy: Fast DO, Enrike A On: 16-Apr-2014 Intent Fast DO, Enrike A Doppler Ultrasound OtherBy: Fast DO, On: 16-Apr-2014 Intent Enrike A Fast DO, Enrike A EKG (60706)By: Matt MCDUFFIE Enrike A On: 16-Apr-2014 Intent [...] Advance Directives Name Dates Details Immunization Registry [place] - Effective on 02/22/2018. Effective: 22-Feb-2018 Expiration [...] for copd/cough - and was back at [facility] they monitoring her = bp is good [...] The patient does have durable power of patent prosecution attorney and l iving will (she thinks). The patient has noticed staying at home rather than doing something new or going out and lack of energy. Other providers contributing to the patient's care are residential carpet installer (Dr. Cota), software sales manager (Dr. Pop) and other: (Plastic Roller- Dr. Villa sees eye dr mann.). Note [...] Limb swelling), Fatigue [facility] Payers [place]/Medicare Adv Olivia LOPEZ; a guarantor
--- OUTSIDE RECORDS SUMMARY | 2018-04-13 15:15 | XMS RPT_ITS | Continuity of Care Document ---
:1945 Author Organization [facility] Address [address] [facility] [address] [place] [address] Phone Care Team Providers Name Role Phone Enrike Jaimes DO Unavailable Cipriano JC, Mike Avelar Unavailable Dayron Monique Unavailable Domenic Navarrete [place] Unavailable Steven Carlisle MD Unavailable [facility] Unavailable Phong Graham Unavailable MONICA Ruelas Unavailable Unavailable Mao Benitez Unavailable Unavailable Sonam Adams Unavailable Unavailable Albert JC, Madyson Roman Unavailable Unavailable Unavailable Problems Name Dates Details Abnormal stress test (R94.39, 794.39) Status: Active Abnormal TSH (R79.89, 790.6) Status: Active Actinic keratoses (L57.0, 702.0) Comments: cryo x 1 lesion left foreram 45 sec with good response consent signed Status: Active Arthritis (M19.90, 716.90) Status: Active Atrial fibrillation (I48.91, 427.31) Status: Active Bilateral carotid artery stenosis (I65.23, 433.10) Comments: risk factor modification Status: Active BMI 25.0-25.9,adult (Z68.25, V85.21) Status: [...] Status: Active Elevated hemoglobin A1c (R73.09, 790.29) Status: Active Encounter for screening mammogram for [...] V70.0) Status: Active Memory loss (R41.3, 780.93) Status: Active Need for prophylactic vaccination and [...] Quantity: 3 {Disk} Refills: 3 Ordered:25-Jan-2017 Fast DOEnrike DO Enrike A Start : 25-Jan-2017 Active AMIODARONE HCL, 200MG (Oral Tablet) 1 (one) Tablet Tablet two times daily for 30 days Quantity: 60 {Tablet} Refills: 0 Ordered:02-Jul-2015 Fast Enrike MCDUFFIE DO Enrike A Start : 02-Jul-2015 Active AmLODIPine Besylate 10 MG Oral Tablet 1 (one) Tablet daily for 90 days Quantity: 90 {Tablet} Refills: 3 Ordered:09-Oct-2017 Fast Enrike MCDUFFIE DO Enrike A Start : 09-Oct-2017 Active ASPIRIN LOW DOSE, 81MG (Oral Tablet) 1 tab daily (81 MG) Active Atorvastatin Calcium 80 MG Oral Tablet 1 (one) Tablet daily for 0 days Quantity: 90 {Tablet} Refills: 3 Ordered:22-Feb-2018 Matt MCDUFFIEFavioa Enrike Urbano DO A Start : 22-Feb-2018 Active CALCIUM, 500MG (Oral Tablet) 2 tabs daily (500 MG) Active Carvedilol 25 MG Oral Tablet 1/2 Tablet bid for 90 days Quantity: 90 {Tablet} Refills: 3 Ordered:25-Jan-2017 Matt MCDUFFIEEnrike DO, Debra A Start : 25-Jan-2017 Active Dexilant 60 MG Oral Capsule Delayed Release 1 (one) Capsule DR daily for 90 days Quantity: 90 {Capsule} Refills: 3 Ordered:26-Jan-2018 Mao Benitez Start : 26-Jan-2018 Active DULoxetine HCl 60 MG Oral Capsule Delayed Release Particles 1 (one) Capsule qd in evening for 0 days Quantity: 90 {Capsule} Refills: 3 Ordered:22-Feb-2018 Matt MCDUFFIEEnrike DO, Debra A Start : 22-Feb-2018 Active IPRATROPIUM BROMIDE, 0.06% (Nasal Solution) 2 sprays each nostril daily (0.06 %) Active Isosorbide Dinitrate 30 MG Oral Tablet 1 tab Tablet daily for 0 days Quantity: 90 {Tablet} Refills: 3 Ordered:22-Feb-2018 Matt MCDUFFIEEnrike DO, Debra A Start : 22-Feb-2018 Active Levothyroxine Sodium 25 MCG Oral Tablet 1 (one) Tablet qd for 0 days Quantity: 114 {Tablet} Refills: 3 Ordered:22-Feb-2018 Matt MCDUFFIEEnrike DO, Debra A Start : 22-Feb-2018 Active Comments:2 on sat and sun Losartan Potassium-HCTZ 100-25 MG Oral Tablet 1 (one) Tablet qd for 90 days Quantity: 90 {Tablet} Refills: 3 Ordered:26-Jan-2018 Mao Benitez Start : 26-Jan-2018 Active Meloxicam 15 MG Oral Tablet 1 (one) Tablet daily for 90 days Quantity: 90 {Tablet} Refills: 3 Ordered:05-Aug-2017 Matt MCDUFFIEEnrike DO, Debra A Start : 05-Aug-2017 Active Montelukast Sodium 10 MG Oral Tablet 1 (one) Tablet daily for 90 days Quantity: 90 {Tablet} Refills: 3 Ordered:25-Jan-2017 Enrike Jaimes DO, DO, Debra A Start : 25-Jan-2017 Active MULTIVITAMIN (PO Tab) 1 (one) daily Active Prolia 60 MG/ML Subcutaneous Solution 1 (one) Solution Solution 1 injection every 6 months for 0 days Quantity: 1 {Pre-filled_Pen_Syringe} Refills: 1 Ordered:12-Jul-2017 Enrike Jaimes DO, DO, Debra A Start : 12-Jul-2017 Active Comments:Pt gets funding thru the [employer] so send a bill to either them or the pt and then they will il-cibpkav-nys 07/28/16 RaNITidine HCl 300 MG Oral Tablet 1 tab Tablet daily for 90 days Quantity: 90 {Tablet} Refills: 3 Ordered:26-Jan-2018 Mao Benitez Start : 26-Jan-2018 Active VITAMIN E, 400UNIT (Oral Tablet) 1 (one) daily (400 UNIT) Active Xarelto 20 MG Oral Tablet 1 (one) Tablet daily for 0 days Quantity: 30 {Tablet} Refills: 3 Ordered:17-Jan-2018 Enrike Jaimes DO, DO, Debra A Start : 17-Jan-2018 Active Cefdinir 300 MG [...] 500MG (Oral Tablet) 1 (one) Tablet daily l28sgjm for 14 days Quantity: 14 {Tablet} Refills: 0 Ordered:23-Apr-2014 Enrike Jaimes DO, DO, Enrike A Start : 23-Apr-2014 End : 07-May-2014 Inactive Comments:with probiotic PredniSONE 10 MG Oral Tablet 3 (three) Tablet pills for 3 days 2 pils for 3 days 1 pill for 3 days for 0 days Quantity: 18 {Tablet} Refills: 0 Ordered:26-Mar-2017 Enrike Jaimes DOnj Enrike A Start : 02-Feb-2017 End : 26-Mar-2017 Inactive Comments:take with food in [facility] meloxicam while on this Promethazine HCl 12.5 MG Oral Tablet 1 (one) Tablet q 6 hours prn for 0 days Quantity: 20 {Tablet} Refills: 0 Ordered:14-Apr-2016 MONICA Ruelas Start : 09-Apr-2016 End : 14-Apr-2016 Inactive Comments:twenty TRAMADOL HCL, 50MG (Oral Tablet) 1 (one) Tablet daily for 30 days Quantity: 30 {Tablet} Refills: 0 Ordered:24-Oct-2014 Enrike Jaimes DOnj Enrike A Start : 24-Oct-2014 End : [...] now. evualate at home with meds and ib [facility] labs. i went to house, called in [employer], told her brat diet slowly, my nurse [...] Visit Report Result: Comments: See Note; NOTES: [facility] Oncology [facility] [place] [address] OFFICE VISIT Date of Service: 01/25/18 1145 MR#: [id number] Acct: [id number] Name: LUPE LOPEZ Rep #: [id number] : 1945 From: Red Spaulding MD Age/Sex: [...] Iron supplements with Vitamin C o r Caroline juice. Check stool for FOBT. RTC 6 [...] Chronic Code Visit Office Visits / Consults: 43368 OV L3 Est 01/25/18 1153 <Electronically signed by Red Spaulding MD> Date Red Spaulding MD Cosigner Signature: Date (if applicable) CC: Enrike Jaimes DO 23-Dec-2017 Cerv Spine 2 or 3 Views Result: Comments: See Note; NOTES: [facility] Imaging Services [address] [place] [address] Cerv Spine 2 or 3 Views MR#: [id number] Acct: [id number] Name: LUPE LOPEZ Rep #: [id number] : 1945 F 72 From: Ming Odonnell MD PCP: Enrike Jaimes DO Status: REG CLI Study: Cerv Spine 2 or 3 Views Date of Exam: 12/23/17 Exam# [id number] Ordering Dr: Karla Berry PHARMACY RESOURCE TECH-C STUDY: X-RAY - C ERVICAL SPINE REASON [...] Fax CC: Enrike Jaimes DO; Karla Berry Communications Administrator: Signed 23-Dec-2017 Thoracic Spine 2 Views Result: Comments: See Note; NOTES: [facility] Imaging Services [address] [place] [address] Thoracic Spine 2 Views MR#: [id number] Acct: [id number] Name: LUPE LOPEZ Rep #: [id number] : 1945 F 72 From: Ming Odonnell MD PCP: Enrike Jaimes DO Status: REG CLI Study: Thoracic Spine 2 Views Date of Exam: 12/23/17 Exam# [id number] Ordering Dr: Karla Berry STUDY: X-RAY - [...] CC: Enrike Jaimes DO; Karla LOPEZ Prebish Communications Administrator: Signed 11-Dec-2017 Carotid Duplex Ultrasound Result: Comments: See Note; NOTES: [facility] Cardiovascular Services [address] [place] [address] Carotid Duplex Ultrasound 12/10/17 1013 MR#: [id number] Acct: [id number] Name: LUPE BOOGIE Rep #: [id number] : 1945 72 From: Brice Murphy MD Attending Dr: Enrike Jaimes DO Status: REG CLI Ordering Dr: Enrike Jaimes DO Date: 12/10/17 Location: [facility] Sex: F C Admitted: Reason [...] the left vertebral artery. Procedure Carotid Duplex 16378. Exam performed in department. Interpretation Summary Mild (<50%) stenosis right extracranial inter nal carotid. Mild (<50%) stenosis left extracranial internal carotid. Flow within the vertebral arteries is antegrade bilaterally. Ordering Physician: Enrike Jaimes Referring Physician: Enrike Jaimes Performed By: Riaz Ashley RVT and Student 12/11/17 1406 Date Brice Murphy MD CC: Enrike Jaimes DO Date Dictated: 12/10/17 1013 Date Transcribed: 12/11/17 1406 Communications Administrator: Signed 10-Dec-2017 SCREENING MAMM (CAD), BILAT Result: Comments: See Note; NOTES: [facility] Imaging Services [address] [place] [address] SCREENING MAMM (CAD), BILAT MR#: [id number] Acct: [id number] Name: LUPE LOPEZ Rep #: [id number] : 1945 F 72 From: Johnny Gilman MD PCP: Enrike Jaimes DO Status: [facility] Study: SCREENING MAMM (CAD), BILAT Date of Exam: 12/10/17 Exam# [id number] Ordering Dr: Enrike Jaimes DO MAMM OGRAPHY [...] will be sent to the patient by [facility] within 30 days. Approximately 10% of breast cancers are not detected by mammography. A normal mammogram should not delay biopsy of a clinically suspicious abnormality. [id number] Electronical ly Signed: Johnny Gilman MD at 13:14 EDT Tel [phone], Service support , CC: Enrike Jaimes DO Communications Administrator: Signed 30-Nov-2017 Pulmonary Visit Report Result: Comments: See Note; NOTES: [facility] [address] [place] [address] OFFICE VISIT Date of Service: 11/30/17 MR#: [id number] Acct: [id number] Name: LUPE BOOGIE Rep #: [id number] : 1945 Provider: Merlin Pop MD Age/Sex: 72/F [place] [facility] [place] Status: Signed Assessment AND Plan Problems 1. [...] Orders: Medications Discontinued: azelastine admini ster into iabh210.5 mcg (0.14 mL) Intranasal BIDJ30.2 Merlin Pop MD nostril Discontinued Reason: Pt no longer taking HPI 6 M FU: Chief Complaint: Chronic cough Details: Patient is a 72-year-old [facility] female, currently under care of Dr. Jaimes, [...] edema or change in weight. Intake Vital Signs11/30/17 Height 5 ft 5 in 11/30/17 Weight: 66.224 kg Intake Visit Reasons: 6 M FU Formulation Scientist Required: No Accompanied by: Family / Other [...] QDAY #90 tab 07/19/17 [Rx Confirmed 11/30/17] PFS Medical History Carotid stenosis (Chronic) GERD (gastroesophageal reflux disease) (Chronic) Lung nodule (Chronic) Atherosclerotic heart disease of [place] coronary artery without angina pectoris (Chronic) Moderate [...] Provider: Merlin Pop MD Administered by: Lakesha Henrqiuez on 11/30/17 10:27 Dose Route Admin Location Lot Number Ex piration Date [facility] [employer] 0.5 mL IM Left Deltoid [id number] 07/19/17 80569-521-50 SEQIRUS VIS Given Date VIS Publication Date 11/30/17 10/26/14 Eligibility Eligibility Date Coding Level of Care Code O ff vis,est,level 3 Diagnoses Moderate persistent asthma without complication J45.40 Asthma complication type: uncomplicated Lung nodule R91.1 Paroxysmal atrial fibrillation I48.0 11/30/17 1054 & #60;Electronically signed by Merlin Pop MD> Date Merlin Mujica Signature: Date (if applicable) CC: Enrike Matt MCDUFFIE 09-Sep-2017 Downtime Report Result: Comments: See Note; NOTES: [facility] Medical Records Department [address] [place] [address] Downtime Report MR#: [id number] Acct: [id number] Name: LUPE LOPEZ Rep #: [id number] : 1945 72 From: Turner Diop PCP: Enrike Jaimes DO Status: REG CLI This patient was seen during an EMR downtime August 23, 2017 - August 30, 2017. This patient may have a combination of rosa maria r and electronic documentation or all paper documentation. All documentation is viewable within the e-chart portion of [employer] for each patient visit. 27-Aug-2017 Spine Lumbar (Routine) Result: Comments: See Note; NOTES: [facility] Imaging Services [address] [place] [address] Spine Lumbar (Routine) MR#: [id number] Acct: [id number] Name: LUPE LOPEZ Rep #: [id number] : 1945 F 72 From: Carlos Pizano PCP: Enrike Jaimes DO Status: REG CLI Study: Spine Lumbar (Routine) Date of Exam: 08/25/17 Exam# [id number] Ordering Dr: Enrike Jaimes DO STUDY: MRI [...] suppo rt , CC: Enrike Jaimes DO Communications Administrator: Signed 11-Aug-2017 Re-Evaluation - PT (1) Result: Comments: See Note; NOTES: [facility] [address] [place] [address]. [address] [place], [place] [address] Fax REEVALUATION / MEDICARE RECERTI FICATION PHYSICAL THERAPY MR#: [id number] Acct: [id number] Name: LUPE LOPEZ Rep #: [id number] : 1945 72 From: Shanon Ferrara MPT Referring DrBrooke: Enrike Jaimes DO Status: REG RCR Insurance: AN [employer] MEDICARE PPO SELF PAY INSURANCE Enrike Jaimes DO, It has been my pleasure to treat LUPE LOPEZ over the last 7 visits for LOW BACK PAIN. Please see the progress note below for an update on [facility] physical therapy plan of care! Subjective: Pt [...] 4-6 Weeks Goal Progress: Goal Met Antici sena Interventions Patient/Client Instruction: Educate patient on: Condition, [...] do not hesitate to contact me at [phone] by phone or if you have questions or concerns regarding this new plan of care! Sincerely, Shanon Ferrara &#60 ;Electronically signed by Shanon Ferrara MPT> 08/11/17 1913 CC: Enrike Jaimes DO Signed For Medicare only, by signing this I certify the plan of care. Physicians Signature Date 27-Jul-2017 Oncology Visit Report Result: Comments: See Note; NOTES: [facility] [address] [facility] [place] [address] OFFICE VISIT Date of Service: 07/27/17 1128 MR#: [id number] Acct: [id number] Name: LUPE LOPEZ Rep #: [id number] : 1945 From: Red Spaulding MD Age/Sex: [...] continue Iron supplements with Vitamin C or Caroline juice. RTC 6 months with CBC, CMP, Iron studies. Me dications: Prescriptions This Visit Medication Instructions Recorded Meloxicam [Mobic] 15 mg PO DAILY 06/16/16 Rivaroxaban [Xarelto] 20 mg PO DAILY 06/29/16 Primary Care Provider: Enrike Jaimes DO Refe rring Provider: - Problem List (1) Iron deficiency Status: Resolved Code Visit Office Visits / Consults: 84058 OV L3 Est 07/27/17 1135 <Electronically signed by Red Spaulding MD> Date Red Matiasigner Signature: Date (if applicable) CC: 15-Jul-2017 Stress Report Result: Comments: See Note; NOTES: [facility] Cardiovascular Services [address] [place] [address] MR#: [id number] Acct: [id number] Name: LUPE LOPEZ Rep #: [id number] : [birth year] 72 From: Mike Cota MD [...] %. This note was g enerated with Right Mediaation software. It may contain incorrect words, spelling, and punctuation that were not noted in checking the note before signing. 07/15/17 1311 <Electronically s igned by Mike Cota MD> Date Mike Cota MD CC: Enrike Jaimes DO; Mike Cota MD Date Dictated: 07/15/171306 Date Transcribed: 07/15/171306 Communications Administrator: PM Signed 08-Jul-2017 Inital Evaluation (1) - PT Result: Comments: See Note; NOTES: [facility] [address] [place] [address]. [address] [place] [address] Fax REHABILITATION SERVICES INITIAL EVALUATION MR#: [id number] Acct: [id number] Name: LUPE LOPEZ Rep #: [id number] [...] lumbar pain desribed ache. Patient seen DR barajas PT ,did x-rays. Symptoms worse with standing [...] to be FAXED BACK to us at [phone] for Medicare purposes. Please let me know if there are questions or concerns regarding this plan of care. Physician Luther william: Date: <Electronically signed by Domenic Ayala PT, Cert. FABRIZIO, OCS> 07/08/17 1332 CC: Enrike Jaimes DO D HEMA Signed For Medicare only, by signing this I certify the plan of care. Physicians Signature Date 05-Jul-2017 Cardiology Visit Report Result: Comments: See Note; NOTES: [facility] [address] [place] [address] OFFICE VISIT Date of Service: 07/05/17 MR#: [id number] Acct: [id number] Name: LUPE LOPEZ Rep #: [id number] : 1945 Provider: Mike Cota MD Age/Sex: 72/F Location[place] [facility] [place] Status: Signed HPI HPI Details: [...] Her previous diagnostic cardiac cathete rization from [facility] from 05/03/2009 is as noted below. ASSESSMENT: 1. Mild to moderate coronary atherosclerosis, non-flow limiting by angiography. 2. Presered left gqid0ukexo systolic a nd diastolic function. CLINICAL CORRELATION: This Is a 64-year-old wtio presents with angina ha1ng atypical features, she has nonflowIlmTting disease hr which aggressiw medical therapy is warranted Incl uding aspirin, beta jonn, DAPHNEY Inhibitor, and statin therapy. 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 She will also follow with her egg worker based on her underlying pulmonary disease process [...] disease) I25.10 Coronary Disease-Associated Arter y/Lesion type: [place] artery Hyperlipidemia, unspecified hyperlipidemia type E78.5 Hyperlipidemia type: unspecified Essential hypertension I10 Hypertension type: essential hypertension Chest pain, unspe cified type R07.9 Chest pain type: unspecified Coding Level of Care Code Off vis,est,level 4 Diagnoses Paroxysmal atrial fibrillation I48.0 CAD (coronary artery disease) I25.10 Coronary Disease-Assoc iated Artery/Lesion type: [place] artery Hyperlipidemia, unspecified hyperlipidemia type E78.5 Hyperlipidemia type: unspecified Essential hypertension I10 Hypertension type: essential hypertension Chest pain, unspecified type R07.9 Chest pain type: unspecified 07/05/17 1123 <Electronically signed by Mike Cota MD> Date Mike washburn MD Cosigner Signature: Date (if applicable) CC: Enrike Jaimes DO 05-Jul-2017 12 Lead EKG performed by [facility] [place] Result: Comments: See Note; NOTES: [facility] [address] [place] [address] 12 Lead EKG performed by [facility] [place] 07/05/17 1033 MR#: [id number] Acct: [id number] Name: LUPE SANDOVAL Rep #: [id number] : 1945 72 From: Mike Cota MD Attending Dr: Mike Cota MD Status: DEP [facility] Ordering Dr: Mike Cota MD Date: 07/05/17 Location: [facility] [place] Sex: F C Admitted: BMS/12 Lead EKG performed by [facility] [place] ECG Report Interpretation Sinus Bradycardia -First degree A-V block Poor R wave progressionElectronically signed on 2017 at 11:45 by Mike Cota 07/05/17 1146 Date Mike Cota MD CC: Enrike Jaimes DO Date Dictated: 07/05/17 1033 Date Transcribed: 07/05/171032 Communications Administrator: PM Signed 16-Jun-2017 Pulmonary Visit Report Result: Comments: See Note; NOTES: [facility] [address] [place] [address] OFFICE VISIT Date of Service: 06/16/17 MR#: [id number] Acct: [id number] Name: LUPE BOOGIE Rep #: [id number] : 1945 Provider: Kirsten Padilla Age/Sex: 72/F Location: [facility] [place] Status: Signed Assessment AND Plan 1. Moderate [...] not seen improvement in her symptoms. Ot [place], follow-up with Dr. Pop in 6 months. [...] symptoms, rested and overcame the illness w ithout intervention. She continues to use Advair twice [...] PO DAILY 06/20/15 [History Confirmed 06/16/17] Ipratropium [place] 0.06% [ATROVENT NASAL SPRAY] 1 spray NASAL PRN PRN 06/20/15 [History Confirmed 06/16/17] Isosorbide Dinitrate [Isordil] 30 mg PO DAILY 06/20/15 [History Confirmed 06/16/17] Losartan/Hydrochlorothiazide [Hyzaar 100-25 Tablet] 1 tab PO DAILY 03/31/16 [History Con firmed 06/16/17] Montelukast [Singulair] 10 [...] BMI 26.0-26.9,adult (Chronic) Atherosclerotic heart disease of [place] coronary artery without angina pectoris (Chronic) Moderate [...] H/O hand surgery (Resolved) Family History (Revie wed 03/28/18 @ 17:00 by JESSICA Sharma) Sister Breast cancer Brother Heart disease Sister [...] J30.2 Allergic rhinitis trigger: unspe cified 06/16/17 1706 <Electronically signed by Kirsten YEPEZC> Date Kirsten Padilla PHARMACY RESOURCE TECH-C Cosigner Signature: Date ___ (if applicable) CC: Enrike Jaimes DO 09-Jun-2017 L/S Spine Min 4 Views Result: Comments: See Note; NOTES: [facility] Imaging Services [address] [place] [address] L/S Spine Min 4 Views MR#: [id number] Acct: [id number] Name: LUPE LOPEZ Rep #: [id number] : 1945 F 72 From: Brennan Mike DO PCP: Enrike Jaimes DO Status: REG CLI Study: L/S Spine Min 4 Views Date of Exam: 06/09/17 Exam# [id number] Ordering Dr: Enrike Jaimes DO STUDY: X-RAY [...] Brennan Mike DO at 16:29 EDT Tel [phone], Service support , Fax CC: Enrike Jaimes DO Communications Administrator: Signed 09-Jun-2017 Thoracic Spine 3 Views Result: Comments: See Note; NOTES: [facility] Imaging Services [address] [place] [address] Thoracic Spine 3 Views MR#: [id number] Acct: [id number] Name: MACKBOBBRAYDONDUY Rep #: [id number] : 1945 F 72 From: Jose Antonio Jensen PCP: Enrike Jaimes DO Status: REG CLI Study: Thoracic Spine 3 Views Date of Exam: 06/09/17 Exam# [id number] Ordering Dr: Enrike Jaimes DO STUDY: X-RAY [...] suppo rt , CC: Enrike Jaimes DO Communications Administrator: Signed 19-Apr-2017 Brain W/WO Contrast Result: Comments: See Note; NOTES: [facility] Imaging Services [address] [place] [address] Brain W/WO Contrast MR#: [id number] Acct: [id number] Name: LUPE LOPEZ Rep #: [id number] : 1945 F 72 From: Steven Ratliff MD PCP: Enrike Jaimes DO Status: REG CLI Study: Brain W/WO Contrast Date of Exam: 04/19/17 Exam# [id number] Ordering Dr: Enrike Jaimes DO STUDY: MRI [...] Service support , CC: Enrike Jaimes DO Communications Administrator: Signed 05-Jan-2017 Hepatobilliary Img w/Pharm Int Result: Comments: See Note; NOTES: [facility] Imaging Services [place] [address] Hepatobilliary Img w/Pharm Int MR#: [id number] Acct: [id number] Name: LUPE LOPEZ Rep # : [id number] : 1945 F 71 From: Dom Sorto DO PCP: Enrike Jaimes DO Status: REG CLI Study: Hepatobilliary Img w/Pharm Int Date of Exam: 01/05/17 Exam# [id number] Ordering Dr: Enrike Jaimes DO CLI NICAL: [...] Tel , Service support , CC: Enrike Jaimse DO Communications Administrator: Signed 23-Dec-2016 Gallbladder Result: Comments: See Note; NOTES: [facility] Imaging Services [address] [place] [address] Gallbladder MR#: [id number] Acct: [id number] Name: LUPE LOPEZ Rep #: [id number] : F 71 From: Terri Dash MD PCP: Enrike Jaimes DO Status: REG CLI Study: Gallbladder Date of Exam: 12/23/16 Exam# [id number] Ordering Dr: Enrike Jaimes DO US Gallbladder [...] Service support , CC: Enrike Jaimes DO Communications Administrator: Signed 19-Nov-2016 SCREENING MAMM (CAD), BILAT Result: Comments: See Note; NOTES: [facility] Imaging Services [address] [place] [address] SCREENING MAMM (CAD), BILAT MR#: [id number] Acct: [id number] Name: LUPE LOPEZ Rep #: [id number] : 1945 F 71 From: Johnny Gilman MD PCP: Enrike Jaimes DO Status: REG CLI Study: SCREENING MAMM (CAD), BILAT Date of Exam: 11/19/16 Exam# [id number] Ordering Dr: Enrike Jaimes DO MAMM OGRAPHY [...] Johnny Gilman MD at 11:14 EDT Tel [phone], Service support , CC: Enrike Jaimes DO Communications Administrator: Signed 17-Nov-2016 6 Minute Walk Test Result: Comments: See Note; NOTES: [facility] Pulmonary Services/Neurology [address] [place] [address] MR#: [id number] Acct: [id number] Name: LUPE LOPEZ Rep #: [id number] : 04/14/1944 71 From: Merlin Pop MD Referring Dr: Kirsten Padilla NP Date: Ordering Dr: Sex: F C Location: PSN PSN 6 Minute Walk Test - 6 Minute Walk Test 6 Minute Walk Test: 6 Minute Walk Test PS N:6-Minute Walk Test Start: 11/17/16 11:09 Freq: Status: Active Document 11/17/16 11:00 HG (Rec: 11/17/16 11:11 HG [id number]) 6 Minute Walk Test Date Performed 11/17/16 [...] Ox 98 Pulse Rate (beats/min) 71 Dysp samla Masood Scale (0-10) 2 Exertion Masood Scale [...] CC: Date Dictated: 11/17/161548 Date Transcribed: 11/17/161548 Communications Administrator: Merlin Pop Signed 12-Nov-2016 Pulmonary Function Report Comp Result: Comments: See Note; NOTES: [facility] Pulmonary Services/Neurology [address] [place] [address] MR#: [id number] Acct: [id number] Name: LUPE LOPEZ Rep #: [id number] : 71 From: Merlin Pop MD Referring Dr: Kirsten Padilla PHARMACY RESOURCE TECH Status: REG CLI Ordering Dr: Date: Location: [facility] Sex: F C COMPLETE PULMONARY FUNCTION TEST INTERPRETATION Brief HPI: Patient is a 71 year old female, currently under the care of myself, who presents to [facility] for complete pulmonary function tests secondary to [...] ventilatory defect with relatively preserved diffusion capacity. 11/12/16 1536 <Electronically signed by Merlin Pop MD&#6 2; Date Merlin Pop MD CC: Merlin Pop MD; Enrike Jaimes DO Date Dictated: 11/12/163 Date Transcribed: 11/12/161532 Communications Administrator: EDENILSON Signed 06-Oct-2016 Chest without Contrast Result: Comments: See Note; NOTES: [facility] Imaging Services [address] [place] [address] Obduliadana 4d Chest without Contrast MR#: [id number] Acct: [id number] Name: LUPE LOPEZ p #: [id number] : 1945 F 71 From: Sonam Hendricks MD PCP: Enrike Jaimes DO Status: REG CLI Study: Chest without Contrast Date of Exam: 10/06/16 Exam# [id number] Ordering Dr: Enrike Jaimes DO STUDY: CT [...] Sonam Hendricks MD at 23:59 EDT Tel [phone], Service support , CC: Enrike Jaimes DO Communications Administrator: Signed 29-Sep-2016 Dexa Bone Density Study (HP) Result: Comments: See Note; NOTES: [facility] Imaging Services [address] [place] [address] Verda 4d Dexa Bone Density Study (HP) MR#: [id number] Acct: [id number] Name: BRAYDON LOPEZ Rep #: [id number] : 1945 F 71 From: Johnny Gilman MD PCP: Enrike Jaimes DO Status: REG CLI Study: Dexa Bone Density Study (HP) Date of Exam: 09/29/16 Exam# [id number] Ordering Dr: Szymanski DO STUDY: DUAL ENERGY [...] / Z-score (-1.0) BD/Dexa Bone Density Study (HP) IMPRESSION: The patient is considered osteoporotic as [...] International Society for Clinical Densitometry http://www.iscd.org 3. [facility] al Osteoporosis Foundation http://www.nof.org Electronically Signed: Johnny Gilman MD at 9:38 EDT Tel [phone], Service support , CC: Enrike Jaimes DO Communications Administrator: Signed 19-Sep-2016 Carotid Duplex Ultrasound Result: Comments: See Note; NOTES: [facility] Cardiovascular Services [address] [place] [address] Carotid Duplex Ultrasound 09/18/16 1406 MR#: [id number] Acct: [id number] Name: LUPE BOOGIE Rep #: [id number] : 1945 71 From: Brice Murphy MD Attending Dr: Enrike Jaimes DO Status: REG CLI Ordering Dr: Enrike Jaimes DO Date: 09/18/16 Location: [facility] Sex: F C Admitted: Reason For Study: [...] the left vertebral artery. Procedure Carotid Duplex 35019. The exam was diagnostic. Exam performed in [facility]. Interpretation Summary Mild (<50%) stenosis right extracranial internal carotid. Mild (<50%) stenosis left extracranial internal carotid. Flow within the vertebral arteries i s antegrade bilaterally. There has been no significant change since a prior study on 05/23/2015. Or dering Physician: Enrike Jaimes Referring Physician: Enrike Jaimes Performed By: Wendy López, STEVE, RVT 09/19/16 0944 Date Brice Murphy MD CC: Enrike Jaimes DO Date Dictated: 09/18/16 1406 Date Transcribed: 09/19/16 0944 Communications Administrator: Signed 16-Sep-2016 PT D/C Summary (1) Result: Comments: See Note; NOTES: [facility] Physical Therapy [facility] [address] [place] [address]. [address] [place], [place] [id number] Fax [facility] MR#: [id number] Acct: [id number] Name: LUPE LOPEZ Rep #: [id number] : 1945 71 From: Shanon CASTILLO Referring DrBrooke: Enrike Jaimes DO Status: REG RCR Insurance: ANTHEM MEDICARE P PO HP - PT D/C [...] was a series of botox injections but insumary escobedo does not comever that. Doing HEP at [...] PT (1) Result: Comments: See Note; NOTES: [facility] Physical Therapy [facility]. [address] [place] [address] Fax REEVALUATION / MEDICARE RECERTI FICARANZA Solomon 4d PHYSICAL THERAPY MR#: [id number] Acct: [id number] Name: CARLYNCHASECatalina Rep #: [id number] : 1945 71 From: Shanon Ferrara MPT Referring DrBrooke: Enrike Jaimes DO Status: REG RCR Insu erika: ANTHEM MEDICARE PPO Enrike Jaimes, DO, It has been my pleasure to treat LUPE LOPEZ over the last 8 visits for Neck Pain. Please see the progress note below for an update on the physical era plan of care! Subjective: Pt reports that [...] do not hesitate to contact me at [phone] by phone or if you have questions or concerns reg arding this new plan of care! Sincerely, Shanon Ferrara <Electronically signed by Shanon Ferrara MPT> 08/26/16 1827 CC: Enrike Jaimes DO Signed For Medic are only, by signing this I certify the plan of care. Physicians Signature Date 28-Jul-2016 Inital Evaluation (1) - PT Result: Comments: See Note; NOTES: [facility] Physical Therapy [facility] [address] [place], [place] [address] Fax REHABILITATION SERVICES INITIAL EVALUATION MR#: [id number] Acct: [id number] Name: LUPE LOPEZ Rep #: [id number] : 1945 71 From: Shanon CASTILLO Referring Dr.: Enrike Jaimes DO Status: REG RCR Insurance: ANTHEM MEDICARE [employer] Patient's Visit Information NINETTA MCKEAL is a 71 year old F referred to Physical Therapy by Enrike Jaimes DO with a diagnosis of Neck Pain. Date of Evaluation: 07/28/16 Physical Therap ist: Shanon Alem - Visit Plan Frequency: 2x /Week Duration: [...] to be FAXED BACK to us at [phone] for Medicare purposes. Please let me know if there are questions or reza rns regarding this plan of care. Physician Signature: Date: <Electronically signed by Shanon Ferrara MPT> 07/28/16 1629 CC: Enrike Jaimes DO Signed For Medicare only, by signing this I certify the plan of care. Physicians Signature Date 08-Jul-2016 Oncology Progress Note Result: Comments: See Note; NOTES: [facility] Medical Records Department [address] [place] [address] Oncology Progress Note MR#: [id number] Acct: [id number] Name: LUPE LOPEZ Rep #: [id number] : 1945 71 From: Red Spaulding MD PCP: Enrike Jaimes DO Status: REG RCR DATE OF SERVICE: 06/29/2016 PROBLEM: Leukopenia and anemia. CHIEF COMPLAINT: Followup for leukopenia and anem ia. HISTORY OF PRESENTING ILLNESS: A 71-year-old woman presented with leukopenia and anemia. She had a bone marrow biopsy in 2014, which showed no abnormalities to explain leukopenia and anemia. The pa tient is on observation, comes in for followup [...] folate. Red Spaulding MD T: NTS JOB: [id number] 07/08/16 1043 <Electronically signed by Red Spaulding MD> Date Red Spaulding MD Cosigner Signature (If Indicated): Date CC: Date Dictated: 06/20 Date Transcribed: 06/30/162251 Communications Administrator: Signed 21-Feb-2016 Chest without Contrast Result: Comments: See Note; NOTES: [facility] Imaging Services [address] [place] [address] Verdana 4d Chest without Contrast MR#: [id number] Acct: [id number] Name: LUPE LOPEZ Kristen p #: [id number] : 1945 F 71 From: Barrett Small MD PCP: Enrike Jaimes DO Status: REG CLI Study: Chest without Contrast Date of Exam: 02/21/16 Exam# [id number] Ordering Dr: Enrike Jaimes DO STUDY : [...] MD at 2:43 EST , Service support [phone], CC: Enrike Jaimes DO Communications Administrator: Signed 08-Dec-2015 Pulmonary Function Report Comp Result: Comments: See Note; NOTES: [facility] Pulmonary Services/Neurology [facility] [place] [address] Pulmonary Function Test (Comp) MR#: [id number] Acct: [id number] Name: Oliver LOPEZ Rep #: [id number] : 1945 70 From: Merlin Pop MD Referring Dr: Kirsten Padilla PHARMACY RESOURCE TECH Status: REG CLI Ordering Dr: Kirsten Padilla PHARMACY RESOURCE TECH-C Date: 12/06/15 Location: [facility] Sex: F C [facility] BRIEF HISTORY OF PRESENT ILLNESS: The [...] C: The patient's primary care physician T: FERNIE JOB: [id number] 12/08/15 0651 <Electronically signed by Merlin Pop MD> Date __ Merlin Pop MD CC: Merlin Pop MD; Kirsten Padilla; Enrike Jaimes DO Date Dictated: 12/07/15 1235 Date Transcribed: 12/07/15 1235 Communications Administrator: Signed 19-Nov-2015 Bilat Scrn Digital AND CAD Result: Comments: See Note; NOTES: [facility] Imaging Services [address] [place] [address] Verdana 4d Bilat Scrn Digital AND CAD MR#: [id number] Acct: [id number] Name: DYLAN LOPEZ Rep #: [id number] : 1945 F 70 From: Johnny Gilman MD PCP: Enrike Jaimes DO Status: REG CLI Study: Bilat Scrn Digital AND CAD Date of Exam: 11/19/15 Exam# [id number] Ordering Dr: Enrike Jaimes DO MAMMOGRAPHY - [...] delay biopsy of a clinically suspicious abnormality. [id number] Electronically Signed: Johnny Gilman MD at 8:15 ED T Tel [phone], Service support [phone], CC: Enrike Jaimes DO Communications Administrator: Signed 07-Oct-2015 Knee 4 or More Views Result: Comments: See Note; NOTES: [facility] Imaging Services [address] [place] [address] Verdana 4d Knee 4 or More Views MR#: [id number] Acct: [id number] Name: LUPE LOPEZ Rep #: [id number] : 1945 F 70 From: Johnny Gilman MD PCP: Enrike Jaimes DO Status: REG CLI Study: Knee 4 or More Views Date of Exam: 10/07/15 Exam# [id number] Ordering Dr: Yamileth Jaimes DO STUDY: X-RAY [...] Johnny Gilman MD at 13:02 EDT Tel [phone], Service support [phone], RAD/Knee 4 or More Views IMPRESSION: Minimal joint effusion. Electronically Signed: Johnny Gilman MD at 13:02 EDT Tel [phone], Service support [phone], CC: Enrike Jaimes DO Communications Administrator: Signed 27-Aug-2015 PT D/C Summary (1) Result: Comments: See Note; NOTES: [facility] Physical Therapy [facility] [address] [place] [address] [address] [place] [address] Fax REHABILITATION RVICES DISCHARGE SUMMARY MR#: [id number] Acct: [id number] Name: LUPE LOPEZ Rep #: [id number] : 1945 70 From: Domenic Ayala PT Cert. T Referring DrBrooke: Enrike Jaimes DO Status: REG R CR Insurance: ANTHEM MEDICARE [facility] - PT D/C Summary It [...] feel free to c all me at [phone]. Thank you for the referral of this patient. Sincerely, Domenic Ayala <Electronically signed by Cert. BABITA Bonilla PTT> 08/27/15 140 CC: Enrike Jaimes DO Signed 06-Aug-2015 Inital Evaluation (1) - PT Result: Comments: See Note; NOTES: [facility] Physical Therapy [facility] [address] [place] [address]. [address] [place], [place] [address] Fax [facility] INITIAL EVALUATION MR#: [id number] Acct: [id number] Name: LUPE LOPEZ Rep #: [id number] : 1945 70 From: Cert. BABITA Bonilla PTT Referring DrBrooke: Enrike Jaimes DO Status: REG [...] to be FAXED BACK to us at [phone] for Medicare purposes. Please let me know [...] 5 Views Result: Comments: See Note; NOTES: [facility] Imaging Services [address] [place] [address] Verdana 4d Cerv Spine 4 or 5 Views MR#: [id number] Acct: [id number] Name: LUPE MCCARTHY Rep #: [id number] : 1945 F 70 From: Vu Hankins MD PCP: Enrike Jaimes DO Status: REG CLI Study: Cerv Spine 4 or 5 Views Date of Exam: 07/30/15 Exam# [id number] Ordering Dr: Szymanski DO STUDY: X-RAY - [...] MD at 17:12 EDT , Service support [phone], RAD/Cerv Spine 4 or 5 Views IMPRESSION: Diffuse oste openia with moderate cervical spondylosis. Electronically Signed: Vu Hankins MD at 17:12 EDT , Service support [phone], CC: Enrike Jaimes DO Communications Administrator: Signed 30-Jul-2015 Shoulder min 2 Views Result: Comments: See Note; NOTES: [facility] Imaging Services [address] [place] [address] Verdana 4d Shoulder min 2 Views MR#: [id number] Acct: [id number] Name: LUPE LOPEZ Rep #: [id number] : 1945 F 70 From: Vu Hankins MD PCP: Enrike Jaimes DO Status: REG CLI Study: Shoulder min 2 Views Date of Exam: 07/30/15 Exam# [id number] Ordering Dr: Enrike Jaimes DO STUDY: X-RAY [...] at 17:12 EDT Tel , Service support [phone], RAD/Shoulder min 2 Views IMPRESSION: Normal x-ray examination of the shoulder. Electronically Signed: Vu Hankins MD 07/29 at 17:12 EDT , Service support [phone], CC: Enrike Jaimes DO Communications Administrator: Signed 02-Jul-2015 Chest PA and Lateral Result: Comments: See Note; NOTES: [facility] Imaging Services [address] [place] [address] Verdana 4d Chest PA and Lateral MR#: [id number] Acct: [id number] Name: LUPE LOPEZ Rep #: [id number] : 1945 F 70 From: Johnny Gilman MD PCP: Enrike Jaimes DO Status: REG CLI Study: Chest PA and Lateral Date of Exam: 07/02/15 Exam# [id number] Ordering Dr: Yamileth Jaimes DO STUDY: X-RAY [...] Johnny Gilman MD at 11:24 EDT Tel [phone], Service support [phone], RAD/Chest PA and Lateral IMPRESSION: The previously seen right upper lobe infiltrate rome s resolved. No acute abnormality is seen at this time. Electronically Signed: Johnny Gilman MD at 11:24 EDT Tel [phone], Service support [phone], CC: Enrike Jaimes DO Communications Administrator: Signed 02-Jul-2015 ELECTROCARDIOGRAM, COMPLETE (ECG) (07057) Comments: ekg showed normal sinus rhythym, normal axis, no acute st/t wave changes sinus maggie Result: [MEASUREMENTS ANALYSIS] Date of Test: 07/02/2015 10:18:39; Heart Rate: 56; MT Interval: 222; QRS: 100; QT Interval: 448; Corrected QT Interval (QTc): 441; P Wave [place]: 90; QRS Wave [place]: 6; T Wave [place]: 18; Blood Pressure: 156/64 [ECG DIAGNOSTIC STATEMENTS] Date of Test: 07/02/2015 10:18:39; Summary: Sinus Bradycardia -First degree A-V block Tessy = 222BORDERLINE RHYTHM 02-Jul-2015 Spirometry (88772) Comments: good effort and curve normal Result: 24-Jun-2015 Venous Duplex Lower Extremity Result: Comments: See Note; NOTES: [facility] Cardiovascular Services [address] [place] [address] Venous Duplex US - Ibrahima Extrem 06/24/15 1102 MR#: [id number] Acct: [id number] Name: LUPE LOPEZ Rep #: [id number] : 1945 70 From: Brice Murphy MD [...] Physician: Enrike Jaimes Performed By: Asia Rogers, RDCS, RVT 07:0 8 PM 06/24/15 1908 Date Brice Murphy MD CC: Enrike Jaimes DO Date Dictated: 06/24/15 110 Date Transcribed: 06/24/151907 Communications Administrator: Signed 20-Jun-2015 CTA Chest W/WO Contrast Result: Comments: See Note; NOTES: [facility] Imaging Services [address] [place] [address] Glenna 4d CTA Chest W/WO Contrast MR#: [id number] Acct: [id number] Name: LUPE MCCARTHY Rep #: [id number] : 1945 F 70 From: Johnny Gilman MD PCP: Enrike Jaimes DO Status: REG ER Study: CTA Chest W/WO Contrast Date of Exam: 06/20/15 Exam# [id number] Ordering Dr: Sonam Colon MD STUDY: CTA [...] Johnny Gilman MD at 15:25 EDT Tel [phone], Service support [phone], CC: Enrike Jaimes DO; Sonam Sheth MD Communications Administrator: Signed 20-Jun-2015 Chest 1 View (Portable) Result: Comments: See Note; NOTES: [facility] Imaging Services [address] [place] [address] Verdana 4d Chest 1 View (Portable) MR#: [id number] Acct: [id number] Name: LUPE MCCARTHY Rep #: [id number] : 1945 F 70 From: Johnny Gilman MD PCP: Enrike Jaimes DO Status: REG ER Study: Chest 1 View (Portable) Date of Exam: 06/20/15 Exam# [id number] Ordering Dr: Sonam Colon MD STUDY: X-RAY [...] Johnny Gilman MD at 13:07 EDT Tel [phone], Se rvice support [phone], RAD/Chest 1 View (Portable) IMPRESSION: Focal infiltration in the right upper lobe. Electronically Signed: Johnny Gilman MD at 13:07 EDT Tel [phone], Service support [phone], CC: Enrike Jaimes DO; Sonam Sheth MD Communications Administrator: Signed 20-Jun-2015 ELECTROCARDIOGRAM, COMPLETE (ECG) (55635) Result: [MEASUREMENTS ANALYSIS] Date of Test: 06/20/2015 10:36:19; Heart Rate: 61; MT Interval: 216; QRS: 100; QT Interval: 426; Corrected QT Interval (QTc): 427; P Wave [place]: 62; QRS Wave [place]: 8; T Wave [place]: 28; Blood Pressure: 160/62 [ECG DIAGNOSTIC STATEMENTS] Date of Test: 06/20/2015 10:36:19; Summary: Sinus Rhythm WITHIN NORMAL LIMITS 15-Jun-2015 Echocardiogram Complete Result: Comments: See Note; NOTES: [facility] Cardiovascular Services [address] [place] [address] Echo Complete 06/12/15 1110 MR#: [id number] Acct: [id number] Name: LUPE PHILLIPS Rep #: [id number] : 1945 70 From: Mike Cota MD Attending Dr: Mike Cota MD Status: PRE CLI Ordering Dr: Mike Cota MD Date: 06/12/15 Location: [facility] Sex: F C Admit benjamin: Reason For Study: CAD/ASHD Procedure This was a 2D Doppler, Color Flow transthoracic echocardiogram. The exam was of adequate technical quality. Exam performed in department. PT did NOT take am HTN med, will take as soon as she gets home and monitor her BP this afternoon. Instructed to call [facility] if systolic BP does not [...] Physician: Enrike Jaimes Performed By: Wendy López, STEVE, RVT 06/15/15 122 6 Date Mike Cota MD CC: Enrike Jaimes DO; Mike Cota MD Date Dictated: 06/12/15 1110 Date Transcribed: 06/15/15 1226 Communications Administrator: Signed 13-Jun-2015 History and Physical Exam Result: Comments: See Note; NOTES: [facility] Medical Records Department [address] [place] [address] History and Physical 06/13/15 1251 MR#: [id number] Acct: [id number] Name: LUPE LOPEZ Rep #: [id number] : 1945 70 From: Jess Sparrow MD PCP: Enrike aJimes DO Status: REG ER Y Location: ED [...] surgery. Psychiatric History: No pertinent psych hx COMMUNITY ENGAGEMENT SPECIALIST History: No pertinent COMMUNITY ENGAGEMENT SPECIALIST history Lives: Spouse/ Significant Other Smoking Status: [...] % (Auto) 51.1 Lymph % (Auto) 33.9 [place] % (Auto) 11.5 H Eos % (Auto) [...] View (Portable) Result: Comments: See Note; NOTES: [facility] Imaging Services [address] [place] [address] Verdana 4d Chest 1 View (Portable) MR#: [id number] Acct: [id number] Name: LUPE MCCARTHY Rep #: [id number] : 1945 F 70 From: Vu Hankins MD PCP: Enrike Jaimes DO Status: REG ER Study: Chest 1 View (Portable) Date of Exam: 06/13/15 Exam# [id number] Ordering Dr: Jessie Ogden MD STUDY: X-RAY [...] MD at 10:55 EDT , Service support [phone], RAD/Chest 1 View (Port able) IMPRESSION: Cardiomegaly with mild hyperexpansion. No acute or active cardiopulmonary disease. Electronically Signed: Vu Hankins MD at 10:55 EDT , Service sup port [phone], CC: Enrike Jaimes DO; Kane Ogden MD Communications Administrator: Signed 13-Jun-2015 CTA Chest W/WO Contrast Result: Comments: See Note; NOTES: [facility] Imaging Services [address] [place] [address] Verdana 4d CTA Chest W/WO Contrast MR#: [id number] Acct: [id number] Name: LUPE MCCARTHY Rep #: [id number] : 1945 F 70 From: Johnny Gilman MD PCP: Enrike Jaimes DO Status: REG ER Study: CTA Chest W/WO Contrast Date of Exam: 06/13/15 Exam# [id number] Ordering Dr: Kane Lujan MD STUDY: CTA [...] verbally conveyed by Johnny Gilman MD to [facility] ED RN, on 06/13/2015 12:08:48 (ET). Electronically Signed: Johnny Gilman MD at 12:08 EDT Tel [phone], Service support [phone], N.B. : The above information has been verbally conveyed by Johnny Gilman MD to [facility] ED RN, on 06/13/2015 12:08:48 (ET). CC: Favio Jaimes DO; Kane Ogden MD Communications Administrator: Signed 13-Jun-2015 EKG (05126) Comments: nsr no acute chg Result: [MEASUREMENTS ANALYSIS] Date of Test: 06/13/2015 09:41:07; Heart Rate: 71; MT Interval: 194; QRS: 96; QT Interval: 420; Corrected QT Interval (QTc): 439; P Wave [place]: 68; QRS Wave [place]: 2; T Wave [place]: 29; Blood Pressure: 140/70 [ECG DIAGNOSTIC STATEMENTS] Date of Test: 06/13/2015 09:41:07; Summary: Sinus Rhythm WITHIN NORMAL LIMITS 23-May-2015 Carotid Duplex Ultrasound Result: Comments: See Note; NOTES: [facility] Cardiovascular Services [address] [place] [address] Carotid Duplex Ultrasound 05/23/15 0814 MR#: [id number] Acct: [id number] Name: LUPE LOPEZ Rep #: [id number] : 1945 70 From: Brice Murphy MD [...] the left vertebral artery. Procedure Carotid Duplex 57148. The exam was diagnostic. Exam performed in [...] MD CC: Enrike Jaimes DO Date Dictated: 05/23/15813 Date Transcribed: 05/23/152329 Communications Administrator: Signed 23-May-2015 Nuclear Stress Test - Treadmil Result: Comments: See Note; NOTES: [facility] Imaging Services [address] [place] [address] Verdana 4d Nuclear Stress Test - Treadmil MR#: [id number] Acct: [id number] N ruel: LUPE LOPEZ Rep #: [id number] : 1945 70 From: Mike Cota MD [...] ardiolite study reports an LVEF of 72%. iMke Cota MD T: [facility] JOB: [id number] 05/23/152009 <Electronically signed by Mike Cota MD> Date Mike Cota MD CC: Enrike Jaimes DO Date Dictated: 05/23/15 1023 Date Transcribed: 05/23/15 1023 Communications Administrator: Signed 20-May-2015 ELECTROCARDIOGRAM, COMPLETE (ECG) (68716) Comments: ekg showed normal sinus rhythym, normal axis, no acute st/t wave changes Result: [MEASUREMENTS ANALYSIS] Date of Test: 05/20/2015 11:04:03; Heart Rate: 63; MT Interval: 210; QRS: 99; QT Interval: 408; Corrected QT Interval (QTc): 413; P Wave [place]: 56; QRS Wave [place]: 10; T Wave [place]: 27; Blood Pressure: 152/76 [ECG DIAGNOSTIC STATEMENTS] Date of Test: 05/20/2015 11:04:03; Summary: Sinus Rhythm WITHIN NORMAL LIMITS 11-Apr-2015 12 Lead Electrocardiogram Result: Comments: See Note; NOTES: [facility] Cardiovascular Services [address] [place] [address] 12 Lead EKG 03/28/15 1548 MR#: [id number] Acct: [id number] Name: LUPE BOOGIE Rep #: [id number] : 1945 70 From: Mike Cota MD [...] Normal sinus rhythm Normal ECG Confirmed by MIKE COTA MD ([id number]), proposal editor TERRI DIOP ([id number]) on 04/11/2015 2:14:19 PM Referred By: CHRISTOPHER Confirmed By:MIKE COTA MD 04/11/15 141 4 Date Mike Cota MD CC: Enrike Jaimes DO Date Dictated: 03/28/15 1548 Date Transcribed: 03/28/151547 Communications Administrator: Signed 25-Dec-2014 Pulmonary Function Report Comp Result: Comments: See Note; NOTES: [facility] Pulmonary Services/Neurology [address] [address] Pulmonary Function Test (Comp) MR#: [id number] Acct: [id number] Name: LUPE PHILLIPS Rep #: [id number] : 1945 69 From: Merlin Pop MD Referring Dr: Merlin Pop MD Status: REG CLI Ordering Dr: Merlin Pop MD Date: 11/27/14 Location: [facility] Sex: F C DATE OF SERVICE: 11/27/2014 [...] preserved diffusion capacity and lung volumes. MERLIN OPP MD T: NTS JOB: [id number] . Date: 11/28/14 Tech.: Temp: PBar: Height(in.): Weight(lbs.): Diagnosis: Medication: : Dyspnea Rest: Dyspnea Exercise: Cough: Productive (cc): Persistent: Smoker: How Long (pk/yrs): Stopped (yrs): Cigarettes: Cigars: 1 1438 <Electronically signed by Merlin Pop MD> Date Merlin Pop MD CC: Merlin Pop MD; Enrike Jaimes DO Date Dictated: 11/03 Date Transcribed: 11/27/141628 Communications Administrator: Signed 23-Oct-2014 PT Discharge Summary Result: Comments: See Note; NOTES: [facility] Physical Therapy [facility] [address] [facility]. [address] [place] [address] Fax REHABILITATION SERVICES DISCHARGE SUMMARY MR#: [id number] Acct: [id number] Name: LUPE LOPEZ Rep #: [id number] : 1945 69 From: Barbie Mcguire Referring Dr.: Enrike Jaimes DO Status: DIS RCR Eval [...] Sneakers. Barbie Mcguire DPT T: FERNIE JOB: [id number] <Electronically signed by Monika Mcguire > 10/23/14 1021 CC: Signed 23-Oct-2014 Chest WITH Contrast Result: Comments: See Note; NOTES: [facility] Imaging Services [address] [place] [address] CAT Scan Report MR#: [id number] Acct: [id number] Name: LUPE LOPEZ Rep #: [id number] : 1945 F 69 From: Johnny Gilman MD PCP: Enrike Jaimes DO Status: REG CLI Study: Chest WITH Contrast Date of Exam: 10/23/14 Exam# [id number] Ordering Dr: Merlin Pop MD STUDY: CT [...] Johnny Gilman MD at 14:28 EDT Tel [phone], Service support [phone], Fax CC: Merlin Pop MD; Enrike Jaimes DO Communications Administrator: Signed 02-Oct-2014 Bilat Scrn Digital AND CAD Result: Comments: See Note; NOTES: [facility] Imaging Services [address] [place] [address] Breast Imaging Report MR#: [id number] Acct: [id number] Name: LUPE LOPEZ Rep #: [id number] : 1945 F 69 From: Johnny Gilman MD PCP: Enrike Jaimes DO Status: REG CLI Study: Bilat Scrn Digital AND CAD Date of Exam: 10/02/14 Exam# [id number] Ordering Dr: Enrike Jaimes DO MAMMOGRAPHY - [...] [facility]. Approximately 10% of breast cancers are not detected by mammography. A normal mammogram should not delay biopsy of a clinically suspicious abnormality. Electronically Signed: Isma Gilman MD at 12:54 EDT Tel [phone], Service support [phone], CC: Enrike Jaimes DO Communications Administrator: Signed 27-Sep-2014 Inital Evaluation - PT Result: Comments: See Note; NOTES: [facility] Physical Therapy [facility]. [address] [place], [place] [address] Fax REHABILITATION SERVICES INITIAL EVALUATION MR#: [id number] Acct: [id number] Name: LUPE LOPEZ Rep #: [id number] : 1945 69 From: Barbie Mcguire Referring [...] no stent that she does see a sweater operator. MEDICATIONS: The patient has a list if [...] is fair. The patient will benefit from [facility] physical therapy to solve the following [...] pain. Barbie Mcguire DPT T: FERNIE JOB: [id number] <Electronically signed by Barbie Mcguire > 09/27/14 0823 CC: Signed For Medicare only, by signing this I certify the plan of care. Physicians Signature Date 14-Jun-2014 Knee 4 or More Views Result: Comments: See Note; NOTES: [facility] Imaging Services [address] [place] [address] Radiology Report MR#: [id number] Acct: [id number] Name: LUPE LOPEZ Rep #: [id number] : 1945 F 69 From: Frank Sewell MD PCP: Enrike Jaimes DO Status: REG CLI Study: Knee 4 or More Views Date of Exam: 06/14/14 Exam# [id number] Ordering Dr: Enrike Jaimes DO STUDY: X-R [...] at 7:48 EDT Tel , Service support [phone], CC: Enrike Jaimes DO Communications Administrator: Signed 14-Jun-2014 Knee 4 or More Views Result: Comments: See Note; NOTES: [facility] Imaging Services [address] [place] [address] Radiology Report MR#: [id number] Acct: [id number] Name: LUPE LOPEZ Rep #: [id number] : 1945 F 69 From: Frank Sewell MD PCP: Enrike Jaimes DO Status: REG CLI Study: Knee 4 or More Views Date of Exam: 06/14/14 Exam# [id number] Ordering Dr: Enrike Jaimes DO STUDY: X-R [...] at 7:50 EDT Tel , Service support [phone], RAD/Knee 4 or More Views IMPRESSION: Mild relative narrowing of the medial co mpartment joint space left knee. Generalized osteopenia. Electronically Signed: Ming Sewell MD at 7:50 EDT Tel , Service support [phone], CC: Enrike Jaimes DO Communications Administrator: Signed 16-May-2014 Carotid Duplex Ultrasound Result: Comments: See Note; NOTES: [facility] Cardiovascular Services [address] [place] [address] 05/03/14 1014 MR#: [id number] Acct: [id number] Name: LUPE LOPEZ Rep #: [id number] [...] left ve rtebral artery. Procedure Carotid Duplex 57233. The exam was diagnostic. Exam performed in department. Interpretation Summary Mild (<50%) stenosis right extracranial internal carotid. Mild (<50%) stenosis left extracranial internal carotid. Flow within the vertebral arteries is antegrade bilaterally. ___ Ordering Physician: Enrike Jaimes D.O. Performed By: Rufino Ashley RVT 05/03/14 1107 Date ____ Brice Murphy MD CC: Enrike Jaimes DO Date Dictated: 05/03/14 1014 Date Transcribed: 05/03/14 1107 Communications Administrator: Signed 23-Apr-2014 Spirometry (03944) Comments: good effort and curve normal Result: 17-Apr-2014 Brain/Head W/WO Contrast Result: Comments: See Note; NOTES: [facility] Imaging Services [address] [place] [address] CAT Scan Report MR#: [id number] Acct: [id number] Name: LUPE LOPEZ Rep #: [id number] : 1945 F 69 From: Johnny Gilman MD PCP: Enrike Jaimes DO Status: REG CLI Study: Brain/Head W/WO Contrast Date of Exam: 04/17/14 Exam# [id number] Ordering Dr: Enrike Jaimes DO STUDY: CT [...] Johnny Gilman MD at 15:01 EST Tel [phone], Service support [phone], CC: Enrike Jaimes DO Communications Administrator: Signed 17-Apr-2014 CTA Chest W/WO Contrast Result: Comments: See Note; NOTES: [facility] Imaging Services [address] [place] [address] CAT Scan Report MR#: [id number] Acct: [id number] Name: LUPE LOPEZ Rep #: [id number] : 1945 F 69 From: Johnny Gilman MD PCP: Enrike Jaimes DO Status: REG CLI Study: CTA Chest W/WO Contrast Date of Exam: 04/17/14 Exam# [id number] Ordering Dr: Enrike Jaimes DO STUDY: C [...] Johnny Gilman MD at 14:38 EST Tel [phone], Service support [phone], CC: Enrike Jaimes DO Communications Administrator: Signed Immunization Name Dates Details Influenza vaccine, split, 3yrs &>, IM (FLUZONE) on: Nov-2017 Influenza, preserv. free, enhanced immunogncty, IM on: 14-Dec-2016 Comments: Site: LD Lot #: [id number] Pneumococcal conjugate vaccine, 13 valent, IM on: 22-Apr-2017 Comments: Site: LD Lot #: [id number] Family History Unknown Family Member Name Dates [...] Active Tobacco use: Former smoker. 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, [address] Absolute Lymph 1.48 {X10_3/ul} (Normal) Range: 0.83-4.51 [...] 4.2-5.4 WBC 4.0 K/mm3 (Abnormal) Range: 4.4-11.0 67-Yjv-35171:15 Comprehensive Metabolic Profil Comments: [facility] [address] [place], [place], [address] GAP 7 (Normal) Range: 5-15 CO2 29.0 [...] Please note revised GLUCOSE reference range /02/2018. :15 Hemoglobin A1c Comments: [facility] [address] [place], [place], [address] HGB A1C 5.5 % (Normal) Range: 4.2-6.3 :15 Lipid Profile Comments: [facility] [address] [place], [address] VLDL 16 mg/dL (Normal) Range: 5-40 LDL [...] 200-240 mg/dL Borderline >240 mg/dL High Risk 93-Rmx-25828:15 Thyroid Stim Hormone (TSH) Comments: [facility] [address] [place], [place], [address] TSH 4.30 {uIU/mL} (Abnormal) Range: 0.358-3.74 0-Klf-787961:25 Stool Occult Blood iFOB Comments: [facility] [address] [place], [place], [address] STOB See Note (Normal) Comments: Reason for Laboratory Test . STOB iFOBOccult Blood Negative 44-Sqr-482630:07 CBC W/Diff, Automated Comments: Reason for Laboratory Test .[facility] [address] [place], [place], [address] Absolute Lymph 1.23 {X10_3/ul} (Normal) Range: 0.83-4.51 [...] 4.2-5.4 WBC 3.4 K/mm3 (Abnormal) Range: 4.4-11.0 07-Snn-133832:07 Comprehensive Metabolic Profil Comments: Reason for Laboratory Test .[facility] [address] [place], [place], [address] GAP 7 (Normal) Range: 5-15 CO2 29.0 [...] Comments: Please note revised GLUCOSE reference range eegrdrbyo70/02/2018. 71-Vgq-132093:07 Ferritin Comments: Reason for Laboratory Test .[facility] [address] [place], [address] FERRITIN 26 ng/mL (Normal) Range: 8-252 92-Drn-219568:07 Iron+Iron Binding Capacity Comments: Reason for Laboratory Test .[facility] [address] [place], [address] IRON SATURATION 17.0 % (Normal) Range: 15.0-55.0 IRON 56 ug/dL (Normal) Range: 50-170 TIBC 329 ug/dL (Normal) Range: 250-450 17-Cqp-689356:47 CBC W/Diff, Automated Comments: [facility] [address] [place], [address] Absolute Lymph 1.23 {X10_3/ul} (Normal) Range: 0.83-4.51 [...] 4.2-5.4 WBC 4.8 K/mm3 (Normal) Range: 4.4-11.0 25-Lta-278197:47 Comprehensive Metabolic Profil Comments: [facility] [address] [place], [address] GAP 9 (Normal) Range: 5-15 CO2 25.0 [...] Comments: Please note revised GLUCOSE reference range udxqdqqrl03/04/2017. 48-Ppy-938760:47 Hemoglobin A1c Comments: [facility] [address] [place], [place], [address] HGB A1C 5.5 % (Normal) Range: 4.2-6.3 96-Qpv-615814:47 Lipid Profile Comments: [facility] [address] [place], [place], [address] VLDL 18 mg/dL (Normal) Range: 5-40 LDL [...] 200-240 mg/dL Borderline >240 mg/dL High Risk 72-Ouf-578733:47 Thyroid Stim Hormone (TSH) Comments: [facility] [address] [place], [place], [address] TSH 4.65 {uIU/mL} (Abnormal) Range: 0.358-3.74 33-Flj-452852:32 Thyroid Stim Hormone (TSH) Comments: [facility] [address] [place], [place], [address] TSH 2.85 {uIU/mL} (Normal) Range: 0.358-3.74 36-Meh-35629:27 Microscopic Examination Comments: PATIENT WAS FASTINGPERFORMED BY: [facility] Qmgvem5185 [facility] [id number] Bacteria Few (Normal) Mucus Threads Present (Normal) Cast Type Hyaline casts (Normal) Casts Present {/lpf} (Abnormal) Epithelial Cells (non renal) 0-10 {/hpf} (Normal) Range: 0 - 10 RBC 0-2 {/hpf} (Normal) Range: 0 - 2 WBC 0-5 {/hpf} (Normal) Range: 0 - 5 :49 CBC W/Diff, Automated Comments: Reason for Laboratory Test [facility] [address] [place], [address] Absolute Lymph 1.48 {X10_3/ul} (Normal) Range: 0.83-4.51 [...] Metabolic Profil Comments: Reason for Laboratory Test [facility] [address] [place], [place], [address] GAP 5 (Normal) Range: 5-15 CO2 31.0 [...] Comments: Please note revised GLUCOSE reference range heojckkmf34/02/2018. 20-Jul-20178:49 Ferritin Comments: Reason for Laboratory Test [facility] [address] [place], [address] FERRITIN 29 ng/mL (Normal) Range: 8-252 20-Jul-20178:49 Iron Comments: Reason for Laboratory Test [facility] [address] [place], [address] IRON 55 ug/dL (Normal) Range: 50-170 37-Nvk-22442:32 Lipid Profile Comments: [facility] [address] [place], [place], [address] VLDL 18 mg/dL (Normal) Range: 5-40 LDL [...] mg/dL High Risk :32 Liver Profile Comments: [facility] [address] [place], [address] D BILI 0.09 mg/dL (Normal) Range: 0.00-0.30 T BILI 0.50 mg/dL (Normal) Range: 0.20-1.00 ALT 14 U/L (Normal) Range: 13-56 ALK P 55 U/L (Normal) Range: 45-117 AST 19 U/L (Normal) Range: 15-37 GLOB 3.0 g/dL (Normal) Range: 2.2-4.2 ALB 3.7 g/dL (Normal) Range: 3.2-5.0 T PROT 6.7 g/dL (Normal) Range: 6.4-8.2 :32 Thyroid Stim Hormone (TSH) Comments: [facility] [address] [place], [address] TSH 5.71 {uIU/mL} (Abnormal) Range: 0.358-3.74 :27 SED RATE ERYTHROCYTE (89977) Comments: PATIENT WAS FASTINGPERFORMED BY: [facility] Ncathv9823 [facility] [id number] Sedimentation Rate-Westergren 8 mm/h (Normal) Range: 0-40 :27 C-REACTIVE PROTEIN (54965) Comments: PATIENT WAS FASTINGPERFORMED BY: [employer]6[address] [facility] [id number] C-Reactive Protein, Quant 0.6 mg/L (Normal) Range: 0.0-4.9 :27 FOLIC ACID SERUM (51144) Comments: PATIENT WAS FASTINGPERFORMED BY: [facility]6[address] [facility] [id number] Folate (Folic Acid), Serum >20.0 ng/mL (Normal) Comments: A serum folate concentration of less than 3.1 ng/mL isconsidered to represent clinical deficiency. :27 VITAMIN B-12 (CYANOCOBALAMIN) Comments: PATIENT WAS FASTINGPERFORMED BY: [employer]6[address] [facility] [id number] (53783) Vitamin B12 681 pg/mL (Normal) Range: 232-1245 :27 TSH (THYROID STIMULATING Comments: PATIENT WAS FASTINGPERFORMED BY: [facility]6[address] [facility] [id number] HORMONE) (78091) TSH 6.650 {uIU/mL} (Abnormal) Range: 0.450-4.500 :27 LIPID PANEL (75665) Comments: PATIENT WAS FASTINGPERFORMED BY: [facility]6[address] [facility] [id number] LDL/HDL Ratio 1.4 {ratio} (Normal) Range: 0.0-3.2 [...] mg/dL (Normal) Range: 100-199 :27 HGB A1C (11196) Comments: PATIENT WAS FASTINGPERFORMED BY: [employer]6[address] [facility] [id number] Hemoglobin A1c 5.6 % (Normal) Range: 4.8-5.6 Comments: . Pre-diabetes: 5.7 - 6.4 Diabetes: >6.4 Glycemic control for adults with diabetes: <7.0 :27 serum free light chains Comments: PATIENT WAS FASTINGPERFORMED BY: [employer]6[address] [facility] [id number] (40302) Caro/Lambda Ratio,S 1.18 (Normal) Range: 0.26-1.65 Free Lambda Lt Chains,S 19.1 mg/L (Normal) Range: 5.7-26.3 Free Caro Lt Chains,S 22.5 mg/L (Abnormal) Range: 3.3-19.4 :27 urine immunofixation (72151) Comments: PATIENT WAS FASTINGPERFORMED BY: [employer]6[address] [facility] [id number] THEE Interpretation:U UPEIP (Normal) Comments: No monoclonality detected. :27 serum immunofixation (71102) Comments: PATIENT WAS FASTINGPERFORMED BY: [employer]6[address] [facility] [id number] Immunoglobulin M, Qn, Serum 68 mg/dL (Normal) Range: 26-217 Immunoglobulin A, Qn, Serum 111 mg/dL (Normal) Range: 64-422 Immunoglobulin G, Qn, Serum 669 mg/dL (Abnormal) Range: 700-1600 Immunofixation Result, Serum UPEIP (Normal) Comments: No monoclonality detected. :27 URINALYSIS, W/ MICRO (23167) Comments: PATIENT WAS FASTINGPERFORMED BY: [facility]6[address] [facility] [id number] Microscopic Examination See below: (Normal) Comments: Microscopic was indicated and was performed. Microscopic Examination MICRON (Normal) Comments: Microscopic follows if indicated. Nitrite, Urine Negative (Normal) Urobilinogen,Semi-Qn 0.2 mg/dL (Normal) Range: 0.2-1.0 Bilirubin Negative (Normal) Occult Blood Negative (Normal) Ketones Negative (Normal) Glucose Negative (Normal) Protein Negative (Normal) WBC Esterase Negative (Normal) Appearance Clear (Normal) Urine-Color Yellow (Normal) pH 6.0 (Normal) Range: 5.0-7.5 Specific [place] 1.019 (Normal) Range: 1.005-1.030 38-Voj-40941:27 METABOLIC PANEL, COMPREHENSIVE Comments: PATIENT WAS FASTINGPERFORMED BY: [facility] [id number] (18624) ALT (SGPT) 12 [iU]/L (Normal) Range: 0-32 [...] 8-27 Glucose 91 mg/dL (Normal) Range: 65-99 5-Nmq-744273:14 CBC W/Diff, Automated Comments: Reason for Laboratory Test .[facility] [address] [place], [place], [address] Absolute Lymph 0.91 {X10_3/ul} (Normal) Range: 0.83-4.51 [...] 4.2-5.4 WBC 5.1 K/mm3 (Normal) Range: 4.4-11.0 7-Tsi-598251:14 Comprehensive Metabolic Profil Comments: Reason for Laboratory Test .Is Patient Taking Vitamins or Folic Acid Supplements? [facility] [address] [place], [address] GAP 7 (Normal) Range: 5-15 CO2 30.0 [...] 7-18 GLU 100 mg/dL (Normal) Range: 70-110 8-Php-432780:14 Ferritin Comments: Reason for Laboratory Test .Is Patient Taking Vitamins or Folic Acid Supplements? [facility] [address] [place], [place], [address] FERRITIN 42 ng/mL (Normal) Range: 8-252 9-Bbk-730957:14 Folates, (Folic Acid) Comments: Reason for Laboratory Test .Is Patient Taking Vitamins or Folic Acid Supplements? [facility] [address] [place], [place], [address] FOLATES 82.80 ng/mL (Abnormal) Range: 3.1-55.4 Comments: Please note revised Folates reference range /14/2017. 0-Xdx-947822:14 Iron+Iron Binding Capacity Comments: Reason for Laboratory Test .Is Patient Taking Vitamins or Folic Acid Supplements? [facility] [address] [place], [address] IRON SATURATION 10.7 % (Abnormal) Range: 15.0-55.0 IRON 36 ug/dL (Abnormal) Range: 50-170 TIBC 335 ug/dL (Normal) Range: 250-450 3-Bzj-406684:14 Vitamin B12 > 2000 pg/mL (Abnormal) Comments: Reason for Laboratory Test .[facility] [address] [place], [address] Range: 211-911 09-Xgl-195449:06 Stool Occult Blood iFOB Comments: [facility] [address] [place], [address] STOB See Note (Normal) Comments: Reason for Laboratory Test . STOB iFOBOccult Blood Negative 90-Zlf-28972:18 CBC W/Diff, Automated Comments: [facility] [address] [place], [address] Absolute Lymph 1.31 {X10_3/ul} (Normal) Range: 0.83-4.51 [...] 4.2-5.4 WBC 3.4 K/mm3 (Abnormal) Range: 4.4-11.0 :18 Comprehensive Metabolic Profil Comments: Is Patient Taking Vitamins or Folic Acid Supplements? [facility] [address] [place], [place], [address] GAP 7 (Normal) Range: 5-15 CO2 28.0 [...] Patient Taking Vitamins or Folic Acid Supplements? [facility] [address] [place], [address] FERRITIN 16 ng/mL (Normal) Range: 8-252 :18 Folates, (Folic Acid) Comments: Is Patient Taking Vitamins or Folic Acid Supplements? [facility] [address] [place], [address] FOLATES 67.80 ng/mL (Abnormal) Range: 3.1-17.5 :18 Iron+Iron Binding Capacity Comments: Is Patient Taking Vitamins or Folic Acid Supplements? [facility] [address] [place], [place], [address] IRON SATURATION 11.2 % (Abnormal) Range: 15.0-55.0 IRON 41 ug/dL (Abnormal) Range: 50-170 TIBC 367 ug/dL (Normal) Range: 250-450 :18 Vitamin B12 1297 pg/mL (Abnormal) Comments: [facility] [address] [place], [address] Range: 211-911 98-Kth-522951:09 Urinalysis, Office (26845) UA - LEUKOCYTE ESTERASE Negative (Normal) UA - NITRITE Negative (Normal) URINE UROBILINGN DIPAK TIMED 2 mg/dL (Normal) UA - PROTEIN Negative mg/dL (Normal) UA - PH 6.0 (Normal) UA - BLOOD Hemolyzed Trace (Normal) UA - SPECIFIC GRAVITY 1.015 (Normal) UA - KETONES Negative mg/dL (Normal) UA - BILIRUBIN Negative (Normal) UA - GLUCOSE Negative (Normal) 98-Dpb-872090:09 Blood Glucose , Office (58055) Blood Glucose , Office 91 (Normal) 87-Kyd-055471:09 HgA1C , Office (72555) HgA1C , Office 5.3 % (Normal) Range: 4.6 - 7.1 :01 CBC W/Diff, Automated Comments: [facility] [address] [place], [place], [address] Absolute Lymph 0.96 {X10_3/ul} (Normal) Range: 0.83-4.51 [...] Range: 4.4-11.0 :01 Comprehensive Metabolic Profil Comments: [facility] [address] [place], [place], [address] GAP 12 (Normal) Range: 5-15 CO2 24.0 [...] 7-18 GLU 90 mg/dL (Normal) Range: 70-110 71-Qxa-11779:01 Hemoglobin A1c Comments: [facility] [address] [place], [place], [address] HGB A1C 5.3 % (Normal) Range: 4.2-6.3 44-Avn-21726:01 THEE + Protein Elect, Serum Comments: Is Patient Fasting? [facility] (refer to report for specific site)refer to report for address and phone number NOTE: Comment (Normal) Comments: Protein electrophoresis scan will follow via computer,mail, or cuffing machine operator delivery. THEE RESULT,S Comment (Normal) Comments: No monoclonality detected. A/G RATIO 1.2 (Normal) Range: 0.7-1.7 GLOBULIN, TOTAL 3.1 g/dL (Normal) Range: 2.2-3.9 M-SPIKE g/dL (Normal) Comments: Not Observed GAMMA GLOBULIN 0.7 g/dL (Normal) Range: 0.4-1.8 BETA GLOBULIN 0.9 g/dL (Normal) Range: 0.7-1.3 MBQPG-9-POWR 1.0 g/dL (Normal) Range: 0.4-1.0 EOCZO-8-PAOV 0.5 g/dL (Abnormal) Range: 0.0-0.4 ALBUMIN 3.6 [...] Comment (Normal) Comments: No monoclonality detected.Performed at: [facility] [id number] Director: Samm Galvan PhD, Phone: [phone] 26-Ghs-23787:01 Lipid Profile Comments: [facility] [address] [place], [address] VLDL 19 mg/dL (Normal) Range: 5-40 LDL [...] Risk :01 Thyroid Stim Hormone (TSH) Comments: [facility] [address] [place], [address] TSH 4.87 {uIU/mL} (Abnormal) Range: 0.358-3.74 :01 Vitamin D,25 Hydroxy Comments: [facility] [address] [place], [address] Vitamin D 25-OH 27.3 ng/mL (Normal) Comments: Vitamin D 25(OH) Status Range Deficiency <20 ng/mL (50nmol/L) Insuffciency 20 - 30 ng/mL (50 - 75 nmol/L) Sufficiency 30 - 100 ng/mL (75 - 250 nmol/L) Toxicity >100 ng/mL (>250 nmol/L) :54 CBC W/Diff, Automated Comments: [facility] [address] [place], [address] Absolute Lymph 1.70 {X10_3/ul} (Normal) Range: 0.83-4.51 [...] Serial specimen #1, #2, #3, or #4: 1[facility] [address] [place], [address] GAP 8 (Normal) Range: 5-15 CO2 25.0 [...] (Normal) Range: 70-110 :54 Hemoglobin A1c Comments: [facility] [address] [place], [address] HGB A1C 5.9 % (Normal) Range: 4.2-6.3 :54 Lipid Profile Comments: 'TROP' Serial specimen #1, #2, #3, or #4: [address] [place] [address] [place], [address] VLDL 31 mg/dL (Normal) Range: 5-40 LDL [...] Serial specimen #1, #2, #3, or #4: [address] [place] [address] [place], [place], [address] TSH 4.73 {uIU/mL} (Abnormal) Range: 0.358-3.74 :54 Troponin-I Comments: 'TROP' Serial specimen #1, #2, #3, or #4: [address] [place] [address] [place], [address] TROPONIN-I < 0.02 ng/mL (Normal) Comments: TROPONIN-I EXPECTED VALUES <0.05 NEGATIVE 0.06 - 0.59 AT RISK OF MT > OR = 0.60 SUGGEST MT 90-Qcc-527362:51 CBC W/Diff, Auto - EPLAB Comments: Order Date: 01/01/16Order Info: [id number] - *CBC w/Diff - oncology ONLYComments: DRAW AND HOLD SERUM TUBEOrder Date: 01/01/16Order Info: [id number] - *CBC w/Diff - oncology ONLYComments: DRAW AND HOLD SERUM Only TUBEAt [facility] Medical Oncologypatients receive CBC w/auto Differential ONLY. Physicianwill place an order for a manual differential or Pathologistreview at his discretion. [facility]. [address] [address] [address] SEISMOGRAPH OPERATOR: JOSE KOHLI DO PH:[phone] Date: 01/01/16Order Info: [id number] - *MISC - Miscellaneous Lab Test #1Comments: Test(s) Ordered by Physician:[facility] [address] [place], [address] Absolute Lymph 1.39 {X10_3/uL} (Normal) Range: 0.83-4.51 [...] 4.2-5.4 WBC 4.7 K/mm3 (Normal) Range: 4.4-11.0 16-Xzh-632032:51 Comprehensive Metabolic Comments: Order Date: 01/01/16Order Info: [id number] - *CMP Complete Metabolic PanelOrder Info: 3084-1 - *Uric Acid BloodOrder Info: 2500-7 - *TIBCOrder Info: [id number] - *IronOrder Info: [id number] - *FerritinComments: Ashlyn Martin son:Order Info: 2532-0 - *LDH -LDH (Lactate Dehydrogenase)Order Date: 01/01/16Order Info: 0453-1 - *MISC - Miscellaneous Lab Test #1Comments: Test(s) Ordered by Physician:FOLATESSerial Specimen #1, # 2 or #3? 1Is Patient Taking Vitamins or Folic Acid Supplements? [facility] Mydzyhfyya[address] [place], [place], [address] GAP 2 (Abnormal) Range: 5-15 CO2 29.0 [...] 7-18 GLU 89 mg/dL (Normal) Range: 70-110 35-Kld-006430:51 Ferritin Comments: Order Date: 01/01/16Order Info: 0786-1 [...] Patient Taking Vitamins or Folic Acid Supplements? [facility] Alovsigewz[address] [place], [place], [address] FERRITIN 14 ng/mL (Normal) Range: 8-252 72-Ruq-224841:51 Folates, (Folic Acid) Comments: Order Date: 01/01/16Order [...] Patient Taking Vitamins or Folic Acid Supplements? [facility] Uhpvfefzen[address] [place], [place], [address] FOLATES 72.40 ng/mL (Abnormal) Range: 3.1-17.5 23-Fku-032487:51 Iron Comments: Order Date: 01/01/16Order Info: 0786-1 [...] Patient Taking Vitamins or Folic Acid Supplements? [facility] [address] [place], [place], [address] IRON 40 ug/dL (Abnormal) Range: 50-170 44-Qoy-277303:51 Iron Binding Capacity,Total Comments: Order Date: 01/01/16Order Info: 0786-1 - *CMP Complete Metabolic PanelOrder Info: 3083-03 - *Uric Acid BloodOrder Info: 2499-7 - *TIBCOrder Info: 2498-4 - *IronOrder Info: 2276-4 - *FerritinComments: Ashlyn son:Order Info: 2532-0 - *LDH -LDH (Lactate Dehydrogenase)Order Date: 01/01/16Order Info: 0453-1 - *MISC - Miscellaneous Lab Test #1Comments: Test(s) Ordered by Physician:FOLATESSerial Specimen #1, # 2 or #3? 1Is Patient Taking Vitamins or Folic Acid Supplements? [facility] [address] [place], [place], [address] TIBC 354 ug/dL (Normal) Range: 250-450 82-Yxl-874066:51 LDH 199 U/L (Normal) Comments: Order Date: [...] Patient Taking Vitamins or Folic Acid Supplements? [facility] Xivtdaahhi[address] [place], [address] Range: 84-246 12-Yvd-032229:51 Uric Acid Comments: Order Date: 01/01/16Order Info: [...] Patient Taking Vitamins or Folic Acid Supplements? [facility] Pkeowjzpvd[address] [place], [address] URIC 3.9 mg/dL (Normal) Range: 2.6-6.0 Comments: The drugs N-Acetylcysteine and Metamizole may falsely deressthis assay. 31-Vmo-375396:51 Vitamin B12 809 pg/mL (Normal) Comments: Order Date: 01/01/16Order Info: 2132-9 - *B-12Order Date: 01/01/16Order Info: 0453-1 - *MISC - Miscellaneous Lab Test #1[facility] Spombveshp[address] [place], [address] Range: 211-911 54-Max-666574:41 D-Dimer Quantitative (DVT/PE) Comments: Order Date: 06/15/16Order Info: 77787-7 - *DDIMQ - Fibrin Degrd Ultrsens Qual/SemiquanOrder Date: 06/15/16Order Info: 28922-4 - *DDIMQ - Fibrin Degrd Ultrsens Qual/SemiquanWSouthern [facility] [address] [place], [address] D-DIMER QUANT 0.28 {FEU/ug/m} (Normal) Range: 0.27-0.49 Comments: NORMAL D-Dimer level (<0.50) indicates no DVT or PE. 2-Dvt-286857:15 Thyroxine (T4) Free, Direct, S Comments: PATIENT NOT FASTINGPERFORMED BY: [facility] Dikuyb8224 [facility] [id number] T4,Free(Direct) 1.22 ng/dL Range: 0.82-1.77 (Normal) Triiodothyronine,Free,Seru 2.2 pg/mL (Normal) Comments: PATIENT NOT FASTINGPERFORMED BY: [facility] Izpgas4144 [facility] [id number] 4:15 m Range: 2.0-4.4 Written Authorization WAR (Normal) Comments: PATIENT NOT FASTINGPERFORMED BY: [facility] Yfmhce4882 [facility] [id number] 4:15 Comments: Written Authorization Received.Authorization received from MAO BENITEZ [id number] by Jyothi Boland 1-Srr-488188:15 [facility] ([id number]) Comments: PATIENT NOT FASTINGPERFORMED BY: [facility] Gxocty4028 [facility] [id number] Please note: SPRCS (Normal) Comments: Protein electrophoresis scan will follow via computer, mail, orcourier delivery. A/G Ratio 1.3 (Normal) Range: 0.7-1.7 Globulin, Total 2.8 g/dL (Normal) Range: 2.2-3.9 M-Abhinav Not Observed g/dL (Normal) Gamma Globulin 0.8 g/dL (Normal) Range: 0.4-1.8 Beta Globulin 0.8 g/dL (Normal) Range: 0.7-1.3 Cddyw-2-Gdgfclth 0.9 g/dL (Normal) Range: 0.4-1.0 Twlom-7-Miefuwuf 0.2 g/dL (Normal) Range: 0.0-0.4 Albumin 3.6 g/dL (Normal) Range: 2.9-4.4 Protein, Total, Serum 6.4 g/dL (Normal) Range: 6.0-8.5 0-Ugp-363531:15 UPEP (90849) Comments: PATIENT NOT FASTINGPERFORMED BY: [employer]6370 [facility] [id number] Please note: SPRCS (Normal) Comments: Protein electrophoresis scan will follow via computer, mail, orcourier delivery. M-Abhinav, % Not Observed % (Normal) Gamma Globulin, U 39.7 % (Normal) Beta Globulin, U 30.6 % (Normal) Onccw-9-Cljizczi, U 6.8 % (Normal) Jgguw-3-Fftvypfi, U 2.0 % (Normal) Albumin, U 21.0 % (Normal) Protein,Total,Urine 4.5 mg/dL (Normal) 8-Qxf-456794:15 TSH (67718) Comments: PATIENT NOT FASTINGPERFORMED BY: [facility]iaMeadowview Psych[facility] HospitalPbeizh7653 [facility] [id number] TSH 7.400 {uIU/mL} (Abnormal) Range: 0.450-4.500 9-Evo-834255:15 CBC WITH MANUAL DIFF (14824) Comments: PATIENT NOT FASTINGPERFORMED BY: [employer]6370 [facility] [id number] Immature Grans (Abs) 0.0 {x10E3/uL} (Normal) Range: [...] 3.77-5.28 WBC 4.5 {x10E3/uL} (Normal) Range: 3.4-10.8 7-Ilw-114347:15 RETICULOCYTE COUNT (13637) Comments: PATIENT NOT FASTINGPERFORMED BY: [employer] Jkwhac8061 [facility] [id number] Reticulocyte Count 1.0 % (Normal) Range: 0.6-2.6 7-Jgx-881493:15 LDH (LD) (LACTATE DEHYDROGENASE) Comments: PATIENT NOT FASTINGPERFORMED BY: [employer] Xopcvw7419 [facility] [id number] (67397) LDH 185 [iU]/L (Normal) Range: 119-226 9-Dzj-904475:15 Iron Binding Capacity (TIBC) Comments: PATIENT NOT FASTINGPERFORMED BY: [employer] Rbfedy7987 [facility] [id number] (09670) Iron Saturation 16 % (Normal) Range: 15-55 Iron, Serum 55 ug/dL (Normal) Range: 27-139 UIBC 281 ug/dL (Normal) Range: 118-369 Iron Bind.Cap.(TIBC) 336 ug/dL (Normal) Range: 250-450 0-Wax-745619:15 Vitamin B-12 (cyanocobalamin) Comments: PATIENT NOT FASTINGPERFORMED BY: [facility]iaM[facility] Psych[facility] HospitalAjbixz2377 [facility] [id number] (26615) Vitamin B12 979 pg/mL (Abnormal) Range: 211-946 2-Jrl-342502:15 Folic Acid Serum (80594) Comments: PATIENT NOT FASTINGPERFORMED BY: LabCoMeadowview Psychiatric HospitalJfrqav3889 [facility] [id number] Folate (Folic Acid), Serum >20.0 ng/mL (Normal) Comments: A serum folate concentration of less than 3.1 ng/mL isconsidered to represent clinical deficiency. 9-Xsp-996385:15 Ferritin (99573) Comments: PATIENT NOT FASTINGPERFORMED BY: [facility]CoM[facility] Psych[facility] HospitalFyrlfk5410 [facility] [id number] Ferritin, Serum 30 ng/mL (Normal) Range: 15-150 03-Hcw-310049:05 CBC W/Diff, Automated Comments: [facility] Hprwupyyin[address] [place], [address] Absolute Lymph 1.49 {X10_3/ul} (Normal) Range: 0.83-4.51 [...] 4.2-5.4 WBC 4.6 K/mm3 (Normal) Range: 4.4-11.0 94-Wzp-915027:05 Comprehensive Metabolic Profil Comments: [facility] Bkpkbwicvp[address] [place], [place], [address] GAP 8 (Normal) Range: 5-15 CO2 28.0 [...] 7-18 GLU 86 mg/dL (Normal) Range: 70-110 71-Apf-112672:05 Hemoglobin A1c Comments: [facility] Gghhkegtvr[address] [place], [place], [address] HGB A1C 5.2 % (Normal) Range: 4.2-6.3 44-Lvt-208925:05 Lipid Profile Comments: [facility] Aoxxgjefoj29[address] [place], [address] VLDL 22 mg/dL (Normal) Range: 5-40 LDL [...] 200-240 mg/dL Borderline >240 mg/dL High Risk 65-Sgg-410089:05 Microalb:Creat Ratio,Random UR Comments: [facility] Bbzkbmwmhk8[address] [place], [address] MALB:CREAT 5.0 {mg/g_CRE} (Normal) MICROALBUMIN,UR 7.2 mg/L (Normal) UR CREAT 144.00 mg/dL (Normal) 04-Erl-704491:05 Vitamin D,25 Hydroxy Comments: [facility] Ubouuenyji4949 [address] [place], [address] Vitamin D 25-OH 40.3 ng/mL (Normal) Comments: Vitamin D 25(OH) Status Range Deficiency <20 ng/mL (50nmol/L) Insuffciency 20 - 30 ng/mL (50 - 75 nmol/L) Sufficiency 30 - 100 ng/mL (75 - 250 nmol/L) Toxicity >100 ng/mL (>250 nmol/L) 73-Kdh-62919:27 CBC with auto diff (54561) Comments: PATIENT WAS FASTINGPERFORMED BY: [facility] Bscshc0102 Brown RoadDublin [place] [id number] Immature Grans (Abs) 0.0 {x10E3/uL} (Normal) Range: [...] 3.77-5.28 WBC 3.3 {x10E3/uL} (Abnormal) Range: 3.4-10.8 05-Rzj-794987:35 MAGNESIUM (09068) Comments: PATIENT NOT FASTINGPERFORMED BY: [facility]CoM[facility] Psych[facility] HospitalWysunm7467 [facility] [id number] Magnesium, Serum 1.8 mg/dL (Normal) Range: 1.6-2.3 :35 POTASSIUM SERUM (49753) Comments: PATIENT NOT FASTINGPERFORMED BY: [facility]6370 [facility] [id number] Potassium, Serum 4.5 mmol/L (Normal) Range: 3.5-5.2 06-Nsn-31815:00 CBC W/Diff, Automated Comments: [facility] Aufumfujbf220[address] [place], [address] Absolute Lymph 0.91 {X10_3/ul} (Normal) [...] 4.2-5.4 WBC 3.5 K/mm3 (Abnormal) Range: 4.4-11.0 29-Xdc-77723:00 Comprehensive Metabolic Profil Comments: [facility] Wrdakvthaf[address] [place], [place], [address] GAP 8 (Normal) Range: 5-15 CO2 31.0 [...] 7-18 GLU 75 mg/dL (Normal) Range: 70-110 18-Xws-34864:00 Erythrocyte Sed Rate Comments: [facility] Qismpaomwg1440 [facility]. [place], [place], [address] SED RATE 21 mm/h (Normal) Range: 0-30 0-Mra-933055:37 CBC W/Diff, Automated Comments: [facility] I[address] [facility] [address] [place], [place], [address] Absolute Lymph 1.96 {X10_3/ul} (Normal) Range: 0.83-4.51 [...] 4.4-11.0 :37 Thyroid Stim Hormone (TSH) Comments: [facility] [address] [place], [address] TSH 4.43 {uIU/mL} (Abnormal) Range: 0.358-3.74 :37 Vitamin B12 969 pg/mL (Abnormal) Comments: [facility] [address] [place], [address] Range: 211-911 29-Jan-20160:00 CBC W/ Manual Differential Comments: [facility] [address] [place], [address] RED CELL MORPH NORM C+C [...] Contrast this admission? NIs Patient on Heparin? [facility] Xbuqrgmzry9840 [facility] [place], [place], [address] GAP 7 (Normal) Range: 5-15 CO2 30.0 [...] Contrast this admission? NIs Patient on Heparin? [facility] Ckjarehibu[address]71 [address] [place], [address] FREE T3 2.1 pg/mL (Abnormal) Range: 2.18-3.98 :00 T4 Free Direct Comments: ADD ON TSHHas Patient had X-rays with Contrast this admission? NIs Patient on Heparin? [facility] Rdbnuighcb7407 [facility] [place], [address] T4 FREE DIRECT 1.30 ng/dL (Normal) Range: 0.76-1.46 29-Jan-20160:00 Thyroid Peroxidase AB Comments: [facility] (refer to report for specific site)refer to report for address and phone number TPO AB [phone] 6 {IU/mL} (Normal) Range: 0-34 Comments: Performed at: [address] [id number] Director: Samm Galvan PhD, Phone: [phone] 29-Jan-20160:00 Thyroid Stim Hormone (TSH) Comments: ADD ON TSHHas Patient had X-rays with Contrast this admission? NIs Patient on Heparin? [facility] Gfmykppmys9196 [facility] [place], [address] TSH 5.27 {uIU/mL} (Abnormal) Range: 0.358-3.74 70-Fzs-287614:38 CBC W/Diff, Auto - EPLAB Comments: At [facility] Outpatient [facility] Medical Oncologypatients receive CBC w/auto Differential ONLY. Physicianwill place an order for a manual differential or Pathologistreview at his discretion. [facility] OUTPATIENT [facility]. [address] [address] [address] SEISMOGRAPH OPERATOR: JOSE KOHLI DO PH:[phone]-Patterson Medical Center Pqhxbyvjcv5001 [place], [address] Absolute Lymph 1.55 {X10_3/uL} (Normal) Range: 0.83-4.51 [...] 4.2-5.4 WBC 5.4 K/mm3 (Normal) Range: 4.4-11.0 17-Lzg-528267:19 Pathology Report Comments: PERFORMED BY: [facility] [place] Cyto Rvrlt01163 [facility] [id number] BY: [facility] Dermatopathology Panuopo[address] [id number] Information: [id number] See MATER Comments: Material submitted: .PUNCH BIOPSY [...] SPECIMEN IS SUBMITTEDIN CASSETTE(S) A./CORCOR/CORPathologist provided ICD-10:D04.62CPT .879963 09-Nrj-096040:15 HgA1C , Office (44093) HgA1C , Office 5.7 % (Normal) Range: 4.6 - 7.1 57-Awj-513208:13 CBC W/Diff, Automated Comments: [facility] [address]jxoakwjnw[address] [place], [place], [address] Absolute Lymph 1.90 {X10_3/ul} (Normal) Range: 0.83-4.51 [...] 4.2-5.4 WBC 4.5 K/mm3 (Normal) Range: 4.4-11.0 56-Vub-284511:13 Comprehensive Metabolic Profil Comments: [facility] Bksfpevtvd9399 [place], [address] GAP 6 (Normal) Range: 5-15 CO2 30.0 [...] 7-18 GLU 89 mg/dL (Normal) Range: 70-110 02-Vuk-463360:13 CRP Comments: [facility] [address] [place], [place], [address] C-REACTIVE PROT < 2.90 mg/L (Normal) Range: 0.0-3.0 Comments: C-Reactive Protein (CRP) provides useful information for thediagnosis, therapy and monitoring of inflammatory processesand associated diseases. For the evaluation of Relative Riskfor Cardiovascular Dise ase, a High Sensitivity CRP (HSCRP)should be ordered. 94-Zns-623025:13 Erythrocyte Sed Rate Comments: [facility] [address] [place], [place], [address] SED RATE 13 mm/h (Normal) Range: 0-30 98-Jgs-256104:13 Lipid Profile Comments: [facility] [address] [place], [place], [address] VLDL 32 mg/dL (Normal) Range: 5-40 LDL [...] 200-240 mg/dL Borderline >240 mg/dL High Risk 91-Pkp-401343:13 Rheumatoid Factor Comments: [facility] [address] [place], [place], [address] RHEUMATOID FAC < 10.0 {IU/mL} (Normal) 19-Jwg-219814:13 Thyroid Stim Hormone (TSH) Comments: [facility] [address]mxoezqhel4832 [place], [address] TSH 4.62 {uIU/mL} (Abnormal) Range: 0.358-3.74 :54 Lipid Profile Comments: ORDERED: CBCD, CMP, LDH, URIC, XTRADR.FAST ORDERED: LIPID, CMP, VITD, CBCDWSouthern [facility] Center [address]ax[address]ulxkx[address] [place], [address] VLDL 20 mg/dL (Normal) Range: 5-40 [...] High Risk :54 Vitamin D,25 Hydroxy Comments: [facility] [address]qbqxrha[address] [place], [address] Vitamin D 25-OH 43.8 ng/mL (Normal) Comments: Vitamin D 25(OH) Status Range Deficiency <20 ng/mL (50nmol/L) Insuffciency 20 - 30 ng/mL (50 - 75 nmol/L) Sufficiency 30 - 100 ng/mL (75 - 250 nmol/L) Toxicity >100 ng/mL (>250 nmol/L) :53 CBC W/Diff, Automated Comments: [facility] [address]azfygz17[address] [place], [address] Absolute Lymph 1.63 {X10_3/ul} (Normal) Range: [...] Range: 4.4-11.0 :53 Comprehensive Metabolic Profil Comments: [facility] Mbsffxcdfr[address] [place], [address] GAP 7 (Normal) Range: 5-15 CO2 32.0 [...] 70-110 :53 LDH 182 U/L (Normal) Comments: [facility] Lgvedaovnw79[address] [place], [place], [address] Range: 84-246 :53 Uric Acid Comments: [facility] Egauixkhrx9251 [address] [place], [place], [address] URIC 4.4 mg/dL (Normal) Range: 2.6-6.0 81-Yis-485931:49 CBC W/Diff, Auto - EPLAB Comments: At [facility] Outpatient [facility] Medical Oncologypatients receive CBC w/auto Differential ONLY. Physicianwill place an order for a manual differential or Pathologistreview at his discretion. [facility] OUTPATIENT [facility]. [address] [place] [place] [address] SEISMOGRAPH OPERATOR: JOSE KOHLI DO PH:[phone]-Patterson Medical Center Yktrwytzlv1478 [address] [place], [place], [address] Absolute Lymph 1.40 {X10_3/uL} (Normal) Range: 0.83-4.51 [...] 4.2-5.4 WBC 4.0 K/mm3 (Abnormal) Range: 4.4-11.0 49-Ihb-060513:43 CBC W/Diff, Automated Comments: [facility] Zwpxfkukra5747 [facility]. [place], [place], [address] Absolute Lymph 1.46 {X10_3/ul} (Normal) Range: 0.83-4.51 [...] Serial specimen #1, #2, #3, or #4: [facility] [address]is[address] [place], [address] C-REACTIVE PROT < 2.90 mg/L (Normal) Range: 0.0-3.0 Comments: C-Reactive Protein (CRP) provides useful information for thediagnosis, therapy and monitoring of inflammatory processesand associated diseases. For the evaluation of Relative Riskfor Cardiovascular Dise ase, a High Sensitivity CRP (HSCRP)should be ordered. :43 CRP Comments: 'TROP' Serial specimen #1, #2, #3, or #4: [facility] [address] [place], [address] C-REACTIVE PROT < 2.90 mg/L (Normal) Range: 0.0-3.0 Comments: C-Reactive Protein (CRP) provides useful information for thediagnosis, therapy and monitoring of inflammatory processesand associated diseases. For the evaluation of Relative Riskfor Cardiovascular Dise ase, a High Sensitivity CRP (HSCRP)should be ordered. :43 Erythrocyte Sed Rate Comments: [facility] [address] [place], [address] SED RATE 9 mm/h (Normal) Range: 0-30 :43 ASSAY, TROPONIN, QUANTITATIVE Comments: stat; 'TROP' Serial specimen #1, #2, #3, or #4: [facility] [address] [place], [address] (aka Troponin I) (51407) TROPONIN-I < 0.02 ng/mL (Normal) Comments: TROPONIN-I EXPECTED VALUES <0.05 NEGATIVE 0.06 - 0.59 AT RISK OF MT > OR = 0.60 SUGGEST MT 30-Smc-039866:15 Basic Metabolic Profile (BMP) Comments: PLEASE REDRAW PREVIOUS SPECIMENS MISLABELED'TROP' Serial specimen #1, #2, #3, or #4: 1'CKMB' Serial Specimen #1, #2 or #3? 1WSouthern [facility] Ylyhtmqkof0294 [place], [address] GAP 2 (Abnormal) Range: 5-15 [...] 7-18 GLU 103 mg/dL (Normal) Range: 70-110 15-Eoj-562522:15 CBC W/Diff, Automated Comments: [facility] Wicejraikz[address] [place], [address] Absolute Lymph 1.99 {X10_3/ul} (Normal) [...] 4.2-5.4 WBC 5.8 K/mm3 (Normal) Range: 4.4-11.0 38-Lxn-961549:15 CK-MB Quantitative and Index Comments: PLEASE REDRAW PREVIOUS SPECIMENS MISLABELED'TROP' Serial specimen #1, #2, #3, or #4: 1'CKMB' Serial Specimen #1, #2 or #3? 1WSouthern [facility] Tpvvmlocjn[address] [place], [place], [address] CKRI 0.7 % (Normal) Range: 0.0-1.4 Comments: RELATIVE INDEX >1.5% IS PRESUMPTIVELY POSITIVE CPKMB 0.6 ng/mL (Normal) Range: 0.0-5.0 Comments: CK-MB and RI Interpretation MB Relative Index Non-AMI <or= 5 NA Indeterminate > 5 <or= 4 AMI > 5 > 4 CPK TOTAL 82 U/L (Normal) Range: 26-192 89-Ndc-766226:15 Partial Thromboplast Time Comments: [facility] Selsydkyzh[address] [place], [place], [address] PTT 48.2 s (Abnormal) Range: 24.1-36.2 27-Owk-300876:15 Prothrombin Time w/INR Comments: [facility] Nckkhmvsar17[address] [place], [place], [address] INR 2.3 (Normal) PROTIME 25.3 s (Abnormal) Range: 11.7-14.9 21-Puf-309682:15 Troponin-I Comments: PLEASE REDRAW PREVIOUS SPECIMENS MISLABELED'TROP' Serial specimen #1, #2, #3, or #4: 1'CKMB' Serial Specimen #1, #2 or #3? 1WS[facility] Gysvpneeog7[address] [place], [place], [address] TROPONIN-I < 0.02 ng/mL (Normal) Comments: TROPONIN-I EXPECTED VALUES <0.05 NEGATIVE 0.06 - 0.59 AT RISK OF MT > OR = 0.60 SUGGEST MT 77-Pzk-220118:25 Basic Metabolic Profile (BMP) Comments: Serial Specimen #1, #2 or #3? 1'TROP' Serial specimen #1, #2, #3, or #4: 1WS[facility] Exdbkdbnuu19[address] [place], [place], [address] GAP 10 (Normal) Range: 5-15 CO2 26.0 [...] 7-18 GLU 104 mg/dL (Normal) Range: 70-110 55-Ptx-172298:25 BNP,B-Type NATRIURETIC PEPTIDE Comments: [facility] Ofcfdoipxz94[address] [place], [place], [address] B-TYPE STEFAN PEP 94.1 pg/mL (Normal) Range: 0-100 10-Wxk-223760:25 CBC W/Diff, Automated Comments: [facility] Crpwwwjnrx43[address] [place], [place], [address] Absolute Lymph 2.03 {X10_3/ul} (Normal) Range: 0.83-4.51 [...] 4.2-5.4 WBC 6.0 K/mm3 (Normal) Range: 4.4-11.0 92-Bbw-413173:25 CK-MB Quantitative and Index Comments: Serial Specimen #1, #2 or #3? 1'TROP' Serial specimen #1, #2, #3, or #4: [address] [place] [address] [address]lhrovbs[address] [place], [place], [address] CKRI Test not performed % (Normal) Range: 0.0-1.4 CPKMB < 0.5 ng/mL (Normal) Range: 0.0-5.0 Comments: CK-MB and RI Interpretation MB Relative Index Non-AMI <or= 5 NA Indeterminate > 5 <or= 4 AMI > 5 > 4 CPK TOTAL 69 U/L (Normal) Range: 26-192 75-Tfa-148588:25 Prothrombin Time w/INR Comments: [facility] [address] [place], [address] INR 1.0 (Normal) PROTIME 13.4 s (Normal) Range: 11.7-14.9 19-Ypx-213426:25 Troponin-I Comments: Serial Specimen #1, #2 or #3? 1'TROP' Serial specimen #1, #2, #3, or #4: [address] [place] [address] [place], [place], [address] TROPONIN-I < 0.02 ng/mL (Normal) Comments: TROPONIN-I EXPECTED VALUES <0.05 NEGATIVE 0.06 - 0.59 AT RISK OF MT > OR = 0.60 SUGGEST MT 66-Avw-570963:50 Urinalysis, Office (37747) UA - LEUKOCYTE ESTERASE Small (Normal) UA - NITRITE Negative (Normal) URINE UROBILINGN DIPAK TIMED Normal mg/dL (Normal) UA - PROTEIN Negative mg/dL (Normal) UA - PH 7.0 (Normal) UA - BLOOD Non Hemolyzed Trace (Normal) UA - SPECIFIC GRAVITY 1.015 (Normal) UA - KETONES Negative mg/dL (Normal) UA - BILIRUBIN Negative (Normal) UA - GLUCOSE Negative (Normal) 90-Gbi-227776:16 URINE ELLE CULTURE-IDENTIFICATN Comments: PATIENT NOT FASTINGPERFORMED BY: [facility]42 Armstrong StreetDublin [place] [id number] Information: [id number] ([id number]) Result 1 MUG (Normal) Comments: Mixed urogenital flora1,000 Colonies/mL Urine Culture,Comprehensive Final report (Normal) :58 CBC W/Diff, Automated Comments: [facility] [address] [place], [place], [address] ; non-emergent till apt Absolute Lymph 1.57 [...] Range: 4.4-11.0 :58 Comprehensive Metabolic Profil Comments: [facility] [id number] [place], [place], [id number] GAP 8 (Normal) Range: 5-15 CO2 30.0 [...] (Normal) Range: 70-110 :58 Hemoglobin A1c Comments: [facility] [id number] [place], [address] HGB A1C 5.9 % (Normal) Range: 4.2-6.3 :58 Lipid Profile Comments: [facility] [address] [place], [address] VLDL 14 mg/dL (Normal) Range: [...] Complete Comments: How was Urine Obtained? CLEAN [facility] [id number] [place], [address] MUCUS, URINE 0 SEEN {/hpf} [...] CLARITY Sl. Cloudy (Normal) COLOR Yellow (Normal) [id number]:26 CBC W/Diff, Auto - EPLAB Comments: At [facility] Oncologypatients receive CBC w/auto Differential ONLY. Physicianwill place an order for a manual differential or Pathologistreview at his discretion. [facility]. [address] [place] [address] [address] SEISMOGRAPH OPERATOR: JOSE KOHLI DO PH:[phone] [address] [place], [address] ; ordered by Dr. Evgeny [...] 4.2-5.4 WBC 7.0 K/mm3 (Normal) Range: 4.4-11.0 6-Agh-759031:30 Basic Metabolic Profile (BMP) Comments: [facility] [address] [place], [address] GAP 8 (Normal) Range: 5-15 CO2 27.0 [...] 7-18 GLU 84 mg/dL (Normal) Range: 70-110 4-Mzh-375678:30 CBC-Complete Blood Cnt No Diff Comments: [facility] [address] [place], [place], [phone] MPV 11.8 fL (Normal) Range: 6.2-12.0 PLT [...] 4.2-5.4 WBC 6.7 K/mm3 (Normal) Range: 4.4-11.0 81-Lbc-418972:37 CBC W/Diff, Auto - EPLAB Comments: At [facility] Medical Oncologypatients receive CBC w/auto Differential ONLY. Physicianwill place an order for a manual differential or Pathologistreview at his discretion. [facility] OUTPATIENT [facility]. [address] [address] [place] [address] SEISMOGRAPH OPERATOR: JOSE KOHLI DO PH:[phone]-Pat[facility] Center [address] [place], [place], [phone] Absolute Lymph 1.77 {X10_3/uL} (Normal) Range: 0.83-4.51 [...] 4.2-5.4 WBC 4.3 K/mm3 (Abnormal) Range: 4.4-11.0 55-Kgn-789543:37 Comprehensive Metabolic Profil Comments: Serial Specimen #1, #2 or #3? 1Is Patient Taking Vitamins or Folic Acid Supplements? [facility] Pbghuamrjd[address] [facility] [place], [address] GAP 7 (Normal) Range: 5-15 CO2 29.0 [...] 7-18 GLU 84 mg/dL (Normal) Range: 70-110 76-Jvd-713905:37 Ferritin Comments: Serial Specimen #1, #2 or #3? 1Is Patient Taking Vitamins or Folic Acid Supplements? [facility] [address] [place], [address] FERRITIN 80 ng/mL (Normal) Range: 8-252 :37 Folates, (Folic Acid) Comments: Serial Specimen #1, #2 or #3? 1Is Patient Taking Vitamins or Folic Acid Supplements? [facility] [address] [place], [place], [phone] FOLATES 63.40 ng/mL (Abnormal) Range: 3.1-17.5 09-Uwh-687156:37 Iron Comments: Serial Specimen #1, #2 or #3? 1Is Patient Taking Vitamins or Folic Acid Supplements? [facility] [address] [place], [phone](710) IRON 71 ug/dL (Normal) Range: 50-170 58-Rps-371437:37 Iron Binding Capacity,Total Comments: Serial Specimen #1, #2 or #3? 1Is Patient Taking Vitamins or Folic Acid Supplements? [facility] [address] [place], [phone](518) TIBC 335 ug/dL (Normal) Range: 250-450 :37 LDH 162 U/L (Normal) Comments: Serial Specimen #1, #2 or #3? 1Is Patient Taking Vitamins or Folic Acid Supplements? [facility] [address] [place], [id number] Range: 84-246 71-Kvi-750885:37 Uric Acid Comments: Serial Specimen #1, #2 or #3? 1Is Patient Taking Vitamins or Folic Acid Supplements? [facility] [address] [place], [address] URIC 4.5 mg/dL (Normal) Range: 2.6-6.0 00-Rkz-737149:37 Vitamin B12 1077 pg/mL (Abnormal) Comments: [facility] [address] [place], [address] Range: 211-911 89-Tzt-729700:36 CBC W/Diff, Auto - EPLAB Comments: At [facility] Outpatient [facility], [place] Medical Oncologypatients receive CBC w/auto Differential ONLY. Physicianwill place an order for a manual differential or Pathologistreview at his discretion. [facility] OUTPATIENT [facility]. [address] [place] [address] [place] [address] SEISMOGRAPH OPERATOR: JOSE KOHLI DO PH:[phone]-Patterson Medical Center [address] [place], [address] Absolute Lymph 1.97 {X10_3/uL} (Normal) Range: 0.83-4.51 [...] (Normal) Range: 4.4-11.0 :48 Vitamin D Hydroxy (66549) Comments: PATIENT WAS FASTINGPERFORMED BY: [facility] [id number] Vitamin D, 25-Hydroxy 32.8 ng/mL (Normal) Range: 30.0-100.0 Comments: Vitamin D deficiency has been defined by the [place] of[employer] and an Endocrine Society practice guideline as alevel of serum 25-OH vitamin D less than 20 ng/mL (1,2).The Endocrine Society went on to further define vitamin Dinsufficiency as a level between 21 and 29 ng/mL (2).1. IOM ([place] of Medicine). 2010. Dietary reference intakes for calcium and D. [place]: The National Academies Press.2. Jose Carlos MF, Flip SIFUENTES, David ROME, et al. Evaluation, treatment, and prevention of vitamin D deficiency: an Endocrine Society clinical practice guideline. JCEM. 2010; 96(7):1911-30. :48 CBC with auto diff Comments: PATIENT WAS FASTINGPERFORMED BY: [facility]6370 [facility] [id number] Information: [id number] (50293) Immature Grans (Abs) 0.0 {x10E3/uL} (Normal) Range: [...] PANEL, COMPREHENSIVE Comments: PATIENT WAS FASTINGPERFORMED BY: [facility]CoM[facility] Psych[facility] HospitalKhedtz3200 [facility] [id number] (10144) ALT (SGPT) 10 [iU]/L (Normal) Range: 0-32 [...] mg/dL (Normal) Range: 65-99 :48 LIPID PANEL (11175) Comments: PATIENT WAS FASTINGPERFORMED BY: [employer] [facility] [id number] LDL/HDL Ratio 1.2 {ratio_units} (Normal) Range: 0.0-3.2 [...] CREATININE RATIO Comments: PATIENT WAS FASTINGPERFORMED BY: [address] [facility] [id number] (20582) AND (05165) Microalb/Creat Ratio 64.2 {mg/g_creat} (Abnormal) Range: 0.0-30.0 Microalbumin, Urine 46.3 ug/mL (Abnormal) Range: 0.0-17.0 Creatinine, Urine 72.1 mg/dL (Normal) Range: 15.0-278.0 :48 Hemoglobin Glyclated (HGB A1C) Comments: PATIENT WAS FASTINGPERFORMED BY: [address] [facility] [id number] (86586) Hemoglobin A1c 5.7 % (Abnormal) Range: 4.8-5.6 Comments: . Pre-diabetes: 5.7 - 6.4 Diabetes: >6.4 Glycemic control for adults with diabetes: <7.0 41-Hwl-254905:28 CBC W/Diff, Auto - EPLAB Comments: At [facility] Out[facility] Medical Oncologypatients receive CBC w/auto Differential ONLY. Physicianwill place an order for a manual differential or Pathologistreview at his discretion. [facility]. [address] [place] [place] [address] SEISMOGRAPH OPERATOR: JOSE KOHLI DO PH:[phone] performed at:[facility] [address] [place], [place] [phone] ; handled by evgeny Absolute Lymph 1.89 [...] W/Diff, Auto - EPLAB Only Comments: At [facility] Out[facility] Medical Oncologypatients receive CBC w/auto Differential ONLY. Physicianwill place an order for a manual differential or Pathologistreview at his discretion. [facility] OUTPATIENT [facility]. [address] [place] [place] [address] SEISMOGRAPH OPERATOR: JOSE KOHLI DO PH:[phone] performed at:[facility] [address] [place], [place] [phone] Absolute Neut 2.6 {X10_3/uL} (Normal) Range: 2.0-7.7 [...] Serum Creatinine AND GFR Comments: Test performed at:[facility] [address] [place], [place] [phone] EST GFR - AA 62 mL/min (Normal) EST GFR 51 mL/min (Abnormal) CREAT,SERUM 1.12 mg/dL (Normal) Range: 0.55-1.20 Comments: Please note revised CREATININE reference range mifdtibyr35/22/2015. 6-Xes-814912:38 CBC W/Diff, Auto - EPLAB Only Comments: At [facility] Out[facility] Medical Oncologypatients receive CBC w/auto Differential ONLY. Physicianwill place an order for a manual differential or Pathologistreview at his discretion. [facility]. [address] [place] [address] [place] [address] SEISMOGRAPH OPERATOR: JOSE KOHLI DO PH:[phone] performed at:[facility] Labor[address] [place], [place] [phone] Absolute Neut 3.0 {X10_3/uL} (Normal) Range: 2.0-7.7 [...] 4.2-5.4 WBC 5.8 K/mm3 (Normal) Range: 4.4-11.0 57-Zmm-772640:12 FLURESCNT ANTIB SCRN EA Comments: PATIENT WAS FASTINGPERFORMED BY: [facility]CoM[facility]view Psych[facility] HospitalSpinkk1465 [facility] [id number] Information: [id number] (66513) celiac profile Immunoglobulin A, Qn, Serum 119 [...] - 30 Moderate to Strong Positive >30 :12 IMMUNOASSAY, ANALYTE Comments: PATIENT WAS FASTINGPERFORMED BY: [employer] [place] [id number] (NON-INFECT) (30176) celiac profile Mitochondrial (M2) Antibody <20.0 {Units} (Normal) Range: 0.0-20.0 Comments: Negative 0.0 - 20.0 Equivocal 20.1 - 24.9 Positive >24.9 . Mitochondrial (M2) Antibodies are found in 90-96% of patients with primary biliary cirrhosis. 41-Sqq-689604:12 IGA/IGD/IGG/IGM-EACH (05531) Comments: PATIENT WAS FASTINGPERFORMED BY: [facility] [id number] Immunoglobulin E, Total 2 {IU/mL} (Normal) Range: 0-100 Immunoglobulin M, Qn, Serum 72 mg/dL (Normal) Range: 40-230 Immunoglobulin G, Qn, Serum 884 mg/dL (Normal) Range: 700-1600 74-Tey-428094:12 METABOLIC PANEL, COMPREHENSIVE Comments: PATIENT WAS FASTINGPERFORMED BY: [facility] [id number] (03492) ALT (SGPT) 12 [iU]/L (Normal) Range: 0-32 [...] Glucose, Serum 94 mg/dL (Normal) Range: 65-99 97-Urm-346716:12 LIPID PANEL (94777) Comments: PATIENT WAS FASTINGPERFORMED BY: [facility]CoM[facility] Psych[facility] HospitalFhnbxp7870 [facility] [id number] LDL/HDL Ratio 1.2 {ratio_units} (Normal) Range: 0.0-3.2 [...] Cholesterol, Total 168 mg/dL (Normal) Range: 100-199 4-Yvl-678858:25 HgA1C , Office (44918) HgA1C , Office 5.8 % (Normal) Range: 4.6 - 7.1 96-Bvl-123792:0 COLON BIOPSY (CHOOSE See Note (Normal) Comments: Test performed at:[facility] [address] [place], [place] [phone] 4 SITE) Comments: Patient: LUPE LOPEZ : 1945 (69/F) Acct Num: [id number] Phys: Samm Boo Unit Num: [id number] Loc: LABSPEC Specimen: [id number] Received: 09/13/14 - 1610 Spec Type: C OLON BX TISSUES TISSUES: GROSS DESCRIPTION Received is one container labeled with the patient name and designated biopsy polyp at mid transverse. The specimen consists of one irreg ular fragment of light gonzalez soft tissue that measures 0.3 x 0.2 x 0.1 cm. The specimen is totallysubmitted in one cassette. / AM: 09/17/14 TC:5 CPT: 46257 HEADER OPERATION: Colonoscopy with biopsy PRE-OP DIAGNOSIS: Anemia TISSUE SUBMITTED: Biopsy polyp - mid transverse - rule out adenoma MICROSCOPIC DIAGNOSIS Mid transverse colon polyp, biopsy: Tubular adenoma. AM: 09/17 Signed Jose Kohli 09/17/14 <signature on file> :58 CBC W/Diff, Auto - EPLAB Only Comments: At [facility] Out[facility] Medical Oncologypatients receive CBC w/auto Differential ONLY. Physicianwill place an order for a manual differential or Pathologistreview at his discretion. [facility] OUTPATIENT [facility]. [address] [place] [address] [place] [address] SEISMOGRAPH OPERATOR: JOSE KOHLI DO PH:[phone] performed at:[facility] Laborato [address] [place], [place] [phone] Absolute Neut 1.6 {X10_3/uL} Range: 2.0-7.7 (Abnormal) [...] BIOPSY See Note (Normal) Comments: Test performed at:[facility] [address] [place] [address] 00 Comments: Patient: LUPE LOPEZ : 1945 (69/F) Acct Num: [id number] Phys: Evgeny Farmer Unit Num: [id number] Loc: [facility] Specimen: [id number] Received: 07/31/14 - 1215 Spec Type: BMB TISSUES TISSUES: ADDENDUM Addendum Number 1 CYTOGENETICS REPORT FROM [facility] INTERPRETATION AND COMMENTS: Karyotype: 46,XX[20] A normal female karyotype w as observed in twenty metaphases analyzed. Please see complete report in e-chart or EMR for further details Addendum Signed [facility] 5 <signature on file> BONE MARROW [...] and cytogenetics. / AM: 07/31/14 TC:5 CPT: 02732, 80021, 67658 x2, 80415 x3, 59090 BONE MARROW STUDY CBC DATE: 07/31/14 WBC [...] Highlights myeloid elements and megakaryocytes. COMMENT IHC ([id number]) supports the above diagnosis. Flow cytometry study from [facility] shows no phenotypic evidence of excess blasts, [...] - Smears and send outs Signed Jose Seun 08/06/14 <signature on file> : IMMUNOHISTOCHEMISTRY See Note (Normal) Comments: Test performed at:[facility] [address] [place], [place] [address] 00 Comments: Patient: LUPE LOPEZ : 1945 (69/F) Acct Num: [id number] Phys: Evgeny Farmer Unit Num: [id number] Loc: [facility] Specimen: [id number] Received: 08/01/14 1158 Spec Type: IMMUN O TISSUES TISSUES: SPECIMEN INFORMATION: Tissue Source: Bone marrow biopsy and clot Clinical Info: Anemia Specimen Number: [id number] A AND B CPT code: 30602, 17684 x19 METHOD OLOGY: Deparaffinized sections of prefer/formalin-fixed [...] (11E3) negative BCL-2 (BCL2/100/D5) negative BCL- 6 (LN22/CZ560K/A8) negative Cyclin D 1/BCL-1 (SP4) negative Block B CD3 (LN10/PS1) positive CD5 (4C7/SP10) positive CD10 (56C6) negative CD20 (MJ1/L26) negative CD23 (1B12) negative CD45 (X16/99/ RP2/18) positive CD79a (11E3) negative BCL-2 (BCL2/100/D5) positive BCL-6 (LN22/WV541N/A8) nega tive Cyclin D1/BCL-1 (SP4) negative These tests were developed and their performance characteristics determined by [facility]. They may not have been cleared or approved by the U.S. Food and Drug Administration. The FDA has determined that such clearance or approval is not necessary. INTERPRETATION: A. Bone marrow biopsy: Polytypic lymphoid aggregates. B. Bone marrow clot: Polytypic lymphoid aggregates. Comment: There is no evidence of lymphoma. AM:jeniffer 08/02/14 PHYSICIAN AND INSTITUTION [place] [phone] Signed [facility] 08/06/14 <signature on file> 1-Ibo-274502:59 CBC W/Diff, Auto - EPLAB Only Comments: At [facility] Out[facility] Medical Oncologypatients receive CBC w/auto Differential ONLY. Physicianwill place an order for a manual differential or Pathologistreview at his discretion. [facility]. [address] [place] [phone] SEISMOGRAPH OPERATOR: JOSE KOHLI DO PH:[phone] performed at:[facility] [address] [place] [address] Absolute Neut 2.3 {X10_3/uL} (Normal) Range: 2.0-7.7 [...] 4.2-5.4 WBC 5.2 K/mm3 (Normal) Range: 4.4-11.0 28-Paq-32220:23 CBC W/Diff, Auto - EPLAB Only Comments: At [facility] Emergency Department patientsreceive CBC w/auto Differential ONLY. Physician will placean order for a manual differential or Pathologist review athis discretion. [facility]. [address] [place] [place] [address] SEISMOGRAPH OPERATOR: JOSE KOHLI DO PH:[phone] performed at:[facility] [address] [place] [address] Absolute Neut 2.0 {X10_3/uL} (Normal) Range: 2.0-7.7 [...] 4.2-5.4 WBC 4.0 K/mm3 (Abnormal) Range: 4.4-11.0 63-Fgm-15076:23 Comprehensive Metabolic Profil Comments: Serial Specimen #1, #2 or #3? 1Test performed at:[facility] [address] [place] [address] GAP 6 (Normal) Range: 5-15 CO2 30.0 [...] Specimen #1, #2 or #3? 1Test performed at:[facility] [address] [place] [address] FERRITIN 255 ng/mL (Abnormal) Range: 8-252 :23 Iron Comments: Serial Specimen #1, #2 or #3? 1Test performed at:[facility] [address] [place] [address] IRON 72 ug/dL (Normal) Range: 50-170 :23 Iron Binding Capacity,Total Comments: Serial Specimen #1, #2 or #3? 1Test performed at:[facility] [address] [place] [address] TIBC 320 ug/dL (Normal) Range: 250-450 :23 LDH 176 U/L (Normal) Comments: Serial Specimen #1, #2 or #3? 1Test performed at:[facility] [address] [place] [address] Range: 87-241 :23 Uric Acid Comments: Serial Specimen #1, #2 or #3? 1Test performed at:[facility] [address] [place] [address] URIC 5.2 mg/dL (Normal) Range: 2.6-6.0 :45 Copper, Serum or Plasma Comments: Test performed at:[address] [place] [address] COPPER 112 ug/dL (Normal) Range: 72-166 Comments: Detection Limit = 5Performed at: [facility], [place] [id number] Director: Scot Nuñez PhD, Phone: [phone] at: [address] [place], [place] [id number] Director: Satish Mayer MD, Phone: [phone] 25-Jun-20149:45 Lead, Blood Adult 16+yrs Comments: Test performed at:[facility] [address] [facility] [place] [address] LEAD *Form (Normal) Comments: None Detected Environmental Exposure: WHO Recommendation <20 Occupational Exposure: OSHA Lead Std 40 NIKI 30 Detection Limit = 1 0-Rrx-803689:43 Comprehensive Metabolic Profil Comments: Serial Specimen #1, #2 or #3? 1Is Patient Taking Vitamins or Folic Acid Supplements? NTest performed at:[facility] [address] [place] [address] GAP 6 (Normal) Range: 5-15 CO2 30.0 [...] 7-18 GLU 86 mg/dL (Normal) Range: 70-110 7-Dav-275184:43 Direct Antiglobulin Diann YUVAL Comments: Test performed at:[facility] [address] [place] [address] DIRECT DIANN= NEG w/POLYSPECIFIC (Normal) 0-Oka-169308:43 Erythropoietin Comments: Is Patient Fasting? NTest performed at:[facility] [address] [place] [address] ERYTHROP 584182 24.8 m[iU]/mL (Abnormal) Range: 2.6-18.5 9-Jpy-393635:43 Ferritin Comments: Serial Specimen #1, #2 or #3? 1Is Patient Taking Vitamins or Folic Acid Supplements? NTest performed at:[address] [place] [address] FERRITIN 11 ng/mL (Normal) Range: 8-252 7-Emc-506235:43 Folates, (Folic Acid) Comments: Serial Specimen #1, #2 or #3? 1Is Patient Taking Vitamins or Folic Acid Supplements? NTest performed at:[facility] [address] [place] [address] FOLATES 48.80 ng/mL (Abnormal) Range: 3.1-17.5 :43 Haptoglobin Comments: Is Patient Fasting? NTest performed at:[facility] [address] [facility] [place] [address] HAPTOGLOB 1628 224 mg/dL (Abnormal) Range: 34-200 Comments: Performed at: - [facility] [id number] Director: Scot Nuñez PhD, Phone: [phone] 5-Iyy-370079:43 THEE + Protein Elect, Serum Comments: Is Patient Fasting? NTest performed at:[facility] [address] [place] [address] NOTE: Comment (Normal) Comments: Protein electrophoresis scan will follow via computer,mail, or cuffing machine operator delivery. THEE RESULT,S Comment: (Normal) Comments: THEE SHOWS ATYPICAL LAMBDA. A/G RATIO 1.4 (Normal) Range: 0.7-2.0 GLOBULIN, TOTAL 2.8 g/dL (Normal) Range: 2.0-4.5 M-SPIKE (Normal) Comments: Not Observed GAMMA GLOBULIN 0.9 g/dL (Normal) Range: 0.5-1.6 BETA GLOBULIN 0.9 g/dL (Normal) Range: 0.6-1.3 WHKQM-1-HNDA 0.9 g/dL (Normal) Range: 0.4-1.2 CDGQV-4-KJIL 0.3 g/dL (Normal) Range: 0.1-0.4 ALBUMIN 3.9 g/dL (Normal) Range: 3.2-5.6 IMMUNOGL M 1792 69 mg/dL (Normal) Range: 40-230 IMMUNO A 1784 133 mg/dL (Normal) Range: 91-414 IMMUNO G 1776 959 mg/dL (Normal) Range: 700-1600 PROTEIN,TOTAL 6.7 g/dL (Normal) Range: 6.0-8.5 7-Cdc-398318:43 Iron Binding Capacity,Total Comments: Serial Specimen #1, #2 or #3? 1Is Patient Taking Vitamins or Folic Acid Supplements? NTest performed at:[facility] [address] [place] [address] TIBC 407 ug/dL (Normal) Range: 250-450 6-Dtk-449832:43 Caro Lambda Light Chains Comments: Is Patient Fasting? NTest performed at:[facility] [address] [place] [address] KAPPA/LAMBDA % 1.35 (Normal) Range: 0.26-1.65 FR LAMBDA LT CH 18.72 mg/L (Normal) Range: 5.71-26.30 FR KAPPA LT CHN 25.25 mg/L (Abnormal) Range: 3.30-19.40 4-Doi-112023:43 LDH 173 U/L (Normal) Comments: Serial Specimen #1, #2 or #3? 1Is Patient Taking Vitamins or Folic Acid Supplements? NTest performed at:[facility] [address] [place] [address] Range: 87-241 8-Ekq-412132:43 Retic Panel Comments: Test performed at:[facility] [address] [place] [address] IPF 2.5 % (Normal) Range: 1.0-7.9 [...] 3.00-15.90 RETIC 0.97 % (Normal) Range: 0.5-1.5 2-Taa-471853:43 Thyroid Stim Hormone (TSH) Comments: Serial Specimen #1, #2 or #3? 1Is Patient Taking Vitamins or Folic Acid Supplements? NTest performed at:[facility] [address] [place] [address] TSH 1.87 {uIU/mL} (Normal) Range: 0.358-3.74 :43 Uric Acid Comments: Serial Specimen #1, #2 or #3? 1Is Patient Taking Vitamins or Folic Acid Supplements? NTest performed at:[facility] [address] [place] [address] URIC 5.0 mg/dL (Normal) Range: 2.6-6.0 5-Dis-575348:43 Vitamin B12 548 pg/mL (Normal) Comments: Test performed at:[facility] [address] [place] [address] Range: 211-911 9-Yra-852330:42 CBC W/Diff, Auto - EPLAB Only Comments: At [facility] Outpatient [facility], [facility] patientsreceive CBC w/auto Differential ONLY. Physician will placean order for a manual differential or Pathologist review athis discretion. [facility]. [address] [place] [place] [address] [place] [address] SEISMOGRAPH OPERATOR: JOSE KOHLI DO PH:[phone] performed at:[facility] [address] [place] [address] Absolute Neut 2.6 {X10_3/uL} (Normal) [...] 4.2-5.4 WBC 4.8 K/mm3 (Normal) Range: 4.4-11.0 :56 METABOLIC PANEL, COMPREHENSIVE Comments: PATIENT WAS FASTINGPERFORMED BY: [facility]CoM[facility] Psych[facility] HospitalMczevm8944 [facility] [id number] (54309) ALT (SGPT) 5 [iU]/L (Normal) Range: 0-32 [...] mg/dL (Normal) Range: 65-99 :56 LIPID PANEL (91193) Comments: PATIENT WAS FASTINGPERFORMED BY: [facility] [id number] LDL/HDL Ratio 1.3 {ratio_units} (Normal) Range: 0.0-3.2 [...] DIFF WBC Comments: PATIENT WAS FASTINGPERFORMED BY: [employer] [facility]JamL[facility] [id number] Information: [id number] (80342) Immature Grans (Abs) 0.0 {x10E3/uL} (Normal) Range: [...] 3.77-5.28 WBC 4.8 {x10E3/uL} (Normal) Range: 3.4-10.8 8-Wgh-454733:44 Protein Electro, Random Urine Comments: PATIENT WAS FASTINGPERFORMED BY: [facility] [id number] Please note: SPRCS (Normal) Comments: Protein electrophoresis scan will follow via computer, mail, orcourier delivery. M-Abhinav, % Not Observed % (Normal) Gamma Globulin, U 19.9 % (Normal) Beta Globulin, U 25.8 % (Normal) Msfud-4-Vhbfwild, U 12.8 % (Normal) Djani-5-Mnuzfoqm, U 1.3 % (Normal) Albumin, U 40.2 % (Normal) Protein,Total,Urine 13.5 mg/dL (Normal) Range: 0.0-15.0 :44 Protein Electro.,S Comments: PATIENT WAS FASTINGPERFORMED BY: [facility]6370 [facility] [id number]; will review on 05/07 appt Please note: SPRCS (Normal) Comments: Protein electrophoresis scan will follow via computer, mail, orcourier delivery. A/G Ratio 1.2 (Normal) Range: 0.7-2.0 Globulin, Total 3.0 g/dL (Normal) Range: 2.0-4.5 M-Abhinav Not Observed g/dL (Normal) Gamma Globulin 1.0 g/dL (Normal) Range: 0.5-1.6 Beta Globulin 0.8 g/dL (Normal) Range: 0.6-1.3 Hindm-6-Mwbxxjvu 0.9 g/dL (Normal) Range: 0.4-1.2 Pcoya-3-Kqdbsyaj 0.3 g/dL (Normal) Range: 0.1-0.4 Albumin 3.7 g/dL (Normal) Range: 3.2-5.6 Protein, Total, Serum 6.7 g/dL (Normal) Range: 6.0-8.5 Written Authorization WAR (Normal) Comments: PATIENT WAS FASTINGPERFORMED BY: [facility]6370 [facility] [facility] [id number] :44 Comments: Written Authorization Received.Authorization received from ENRIKE JAIMES 01-01-7627Wacsue by Jyothi Boland :44 LIPID PANEL (15075) Comments: PATIENT WAS FASTINGPERFORMED BY: [facility]6[address] [facility] [id number] LDL/HDL Ratio 1.9 {ratio_units} (Normal) Range: 0.0-3.2 [...] Cholesterol, Total 211 mg/dL (Abnormal) Range: 100-199 1-Gtf-599945:37 FECAL OCCULT- Tubes sent home (52863) FECAL OCCULT HGB ASSAY, QUAL, 1-3 SIMULTANEOU positive (Normal) 9-Cqe-230161:[address] [facility] Comments: PATIENT WAS FASTINGPERFORMED BY: [facility] ElectricL[facility] [id number] ([id number]) Reticulocyte Count 1.6 % (Normal) Range: 0.6-2.6 2-Nmc-870579:44 LDH (LD) (LACTATE DEHYDROGENASE) Comments: PATIENT WAS FASTINGPERFORMED BY: [facility] ElectricL[facility] [id number] ([id number]) LDH 207 [iU]/L (Normal) Range: 119-226 4-Ene-944098:44 IRON BINDING CAPACITY (TIBC) Comments: PATIENT WAS FASTINGPERFORMED BY: [facility] ElectricL[facility] [id number] ([id number]) Iron Saturation 16 % (Normal) Range: 15-55 Iron, Serum 50 ug/dL (Normal) Range: 35-155 UIBC 270 ug/dL (Normal) Range: 150-375 Iron Bind.Cap.(TIBC) 320 ug/dL (Normal) Range: 250-450 2-Vaf-082307:44 FERRITIN (38949) Comments: PATIENT WAS FASTINGPERFORMED BY: [employer]70 WhoJamLake [facility] [id number] Ferritin, Serum 84 ng/mL (Normal) Range: 15-150 2-Fra-880107:44 CBC W/AUTO DIFF WBC (80820) Comments: PATIENT WAS FASTINGPERFORMED BY: [employer]6370 [facility] [id number] Immature Grans (Abs) 0.0 {x10E3/uL} (Normal) Range: [...] CREATININE RATIO Comments: PATIENT WAS FASTINGPERFORMED BY: [facility] [id number] ([id number]) AND (10388) Microalb/Creat Ratio 21.9 {mg/g_creat} (Normal) Range: 0.0-30.0 Microalbumin, Urine 22.0 ug/mL (Abnormal) Range: 0.0-17.0 Creatinine, Urine 100.3 mg/dL (Normal) Range: 15.0-278.0 2-Khc-661993:44 Hemoglobin Glyclated (HGB A1C) Comments: PATIENT WAS FASTINGPERFORMED BY: [facility]6[address] [facility] [id number] ([id number]) Hemoglobin A1c 5.5 % (Normal) Range: 4.8-5.6 Comments: . Increased risk for diabetes: 5.7 - 6.4 Diabetes: >6.4 Glycemic control for adults with diabetes: <7.0 :39 Microscopic Examination Comments: PATIENT NOT FASTINGPERFORMED BY: [facility]6[address] [facility] [id number] Bacteria Few (Normal) Mucus Threads Present (Normal) Epithelial Cells (non renal) 0-10 {/hpf} (Normal) Range: 0 - 10 RBC 0-2 {/hpf} (Normal) Range: 0 - 2 WBC 6-10 {/hpf} (Abnormal) Range: 0 - 5 :37 D-Dimer (19652) Comments: PATIENT NOT FASTINGPERFORMED BY: [facility]6370 [facility] [id number] Information: [id number] D-Dimer 0.84 {mg/L_FEU} (Abnormal) Range: 0.00-0.49 Comments: In conjunction with a non-high clinical probability assessment, anormal (<0.50 mg/L FEU) result excludes deep vein thrombosis (DVT)and pulmonary embolism (PE) with high sensitivity. :39 Vitamin D Hydroxy (20026) Comments: PATIENT NOT FASTINGPERFORMED BY: [facility]6[address] [facility] [id number] Vitamin D, 25-Hydroxy 38.7 ng/mL (Normal) Range: 30.0-100.0 Comments: Vitamin D deficiency has been defined by the [place] [employer] and an Endocrine Society practice guideline as alevel of serum 25-OH vitamin D less than 20 ng/mL (1,2).The Endocrine Society went on to further define vitamin Dinsufficiency as a level between 21 and 29 ng/mL (2).1. IOM ([place] [employer]). 2010. Dietary reference intakes for calcium and D. [place]: The National Academies Press.2. Jose Carlos MF, Flip SIFUENTES, David ROME, et al. Evaluation, treatment, and prevention of vitamin D deficiency: an Endocrine Society clinical practice guideline. JCEM. 2010; 96(7):1911-30. 49-Epg-281893:39 Valproic Acid (72362) Comments: PATIENT NOT FASTINGPERFORMED BY: CB [facility] Mzvpwa27[address] RoadDublin [place] [id number] Valproic Acid (Depakote),S 105 ug/mL (Abnormal) Range: 50-100 Comments: Detection Limit = 4 <4 indicates None Detected . Toxicity may occur at levels of 100-500. Measurements of free unbound valproic acid may improve the assess- ment of clinical response.Patient drug level exceeds published reference range. Evaluateclinically for signs of potential toxicity. 72-Mpf-082686:39 VITAMIN B-12 (CYANOCOBALAMIN) Comments: PATIENT NOT FASTINGPERFORMED BY: CB [facility] Pocpop0076 [address] RoadDublin [place] [id number] ([id number]) Vitamin B12 1017 pg/mL (Abnormal) Range: 211-946 70-Kcw-908168:39 FERRITIN (20405) Comments: PATIENT NOT FASTINGPERFORMED BY: CB [facility] Tntwge7[address] RoadDublin [place] [id number] Ferritin, Serum 77 ng/mL (Normal) Range: 15-150 :39 IRON (34221) Comments: PATIENT NOT FASTINGPERFORMED BY: CB [facility] Jqevbs56[address] RoadDublin [place] [id number] Iron, Serum 32 ug/dL (Abnormal) Range: 35-155 66-Vpb-683529:39 CBC W/AUTO DIFF WBC Comments: PATIENT NOT FASTINGPERFORMED BY: CB [facility] Rviewz84[address]Dublin [place] [id number] Information: G20961,2ND ORDER NO DRAW F EE (86491) Immature Grans (Abs) 0.0 {x10E3/uL} (Normal) Range: [...] 3.77-5.28 WBC 6.2 {x10E3/uL} (Normal) Range: 3.4-10.8 77-Bjj-830730:39 TSH (17837) Comments: PATIENT NOT FASTINGPERFORMED BY: LabCoMeadowview Psychiatric HospitalCfzwsc4237 [facility] [id number] TSH 1.800 {uIU/mL} (Normal) Range: 0.450-4.500 51-Xyl-792133:39 URINALYSIS, W/ MICRO (26982) Comments: PATIENT NOT FASTINGPERFORMED BY: LabCoMeadowview Psych[facility] HospitalSelxwp9681 [facility] [id number] Microscopic Examination See below: (Normal) Comments: Microscopic was indicated and was performed. Nitrite, Urine Negative (Normal) Urobilinogen,Semi-Qn 0.2 mg/dL (Normal) Range: 0.0-1.9 Bilirubin Negative (Normal) Occult Blood Negative (Normal) Ketones Negative (Normal) Glucose Negative (Normal) Protein Negative (Normal) WBC Esterase 1+ (Abnormal) Appearance Clear (Normal) Urine-Color Yellow (Normal) pH 6.5 (Normal) Range: 5.0-7.5 Specific [place] 1.013 (Normal) Range: 1.005-1.030 85-Xib-419076:39 METABOLIC PANEL, COMPREHENSIVE Comments: PATIENT NOT FASTINGPERFORMED BY: [facility] Lahrms1286 Stephanie BurrellLake [facility] Center [id number] ([id number]) ALT (SGPT) 5 [iU]/L (Normal) Range: 0-32 [...] Syncope Planned Observations CBC W/AUTO DIFF WBC (15522)Indication: Hypertension, benign On: :29 Request METABOLIC PANEL, COMPREHENSIVE (58534)Indication: Hypertension, benign On: 8-Vvn-195864:29 Request CBC with auto diff (56324)Indication: Elevated hemoglobin A1c On: 15-Pwq-809067:16 Request METABOLIC PANEL, COMPREHENSIVE (40786)Indication: Elevated hemoglobin A1c On: 54-Tze-937122:16 Request HGB A1C (67541)Indication: Elevated hemoglobin A1c On: 29-Sqx-933754:16 Request LIPID PANEL (34732)Indication: Other hyperlipidemia On: 38-Eud-147045:16 Request TSH (85776)Indication: Abnormal TSH On: 21-Ajq-554898:09 Request TSH (THYROID STIMULATING HORMONE) (89225)Indication: Abnormal TSH On: 20-Fku-418930:15 Request LIPID PANEL (89895)Indication: Other hyperlipidemia On: 73-Yzy-688871:14 Request CBC with auto diff (93862)Indication: Elevated hemoglobin A1c On: 55-Xst-429428:14 Request METABOLIC PANEL, COMPREHENSIVE (06127)Indication: Elevated hemoglobin A1c On: 10-Tvt-112769:14 Request HGB A1C (38722)Indication: Elevated hemoglobin A1c On: 50-Ecx-244114:14 Request CBC W/AUTO DIFF WBC (24517)Indication: Anemia On: 43-Soy-512814:30 Request CBC with auto diff (15542)Indication: Anemia On: 35-Jwz-319247:02 Request METABOLIC PANEL, COMPREHENSIVE (69682)Indication: Impaired Fasting Glucose (Renamed from Elevated fasting blood sugar) On: 97-Ezx-722464:02 Request TSH (08625)Indication: Abnormal TSH On: 68-Wmz-219047:01 Request SED RATE ERYTHROCYTE (61661)Indication: Anemia On: :58 Request C-REACTIVE PROTEIN (73392)Indication: Anemia On: :58 Request FOLIC ACID SERUM (92716)Indication: Anemia On: :58 Request VITAMIN B-12 (CYANOCOBALAMIN) (10749)Indication: Anemia On: :58 Request IGA/IGD/IGG/IGM-EACH (52250)Indication: Anemia On: :33 Request CBC W/AUTO DIFF WBC (91375)Indication: Impaired Fasting Glucose (Renamed from Elevated fasting blood sugar) On: : Request METABOLIC PANEL, COMPREHENSIVE (69741)Indication: Impaired Fasting Glucose (Renamed from Elevated fasting blood sugar) On: : Request Vitamin D Hydroxy (57924)Indication: Other osteoporosis On: :22 Request CBC with auto diff (24216)Indication: Anemia On: :22 Request TSH (THYROID STIMULATING HORMONE) (40372)Indication: Abnormal TSH On: :21 Request HGB A1C (07629)Indication: Impaired Fasting Glucose (Renamed from Elevated fasting blood sugar) On: :21 Request serum immunofixation (64973)Indication: Anemia On: : Request urine immunofixation (02618)Indication: Anemia On: :21 Request LIPID PANEL (91463)Indication: Other hyperlipidemia On: :15 Request METABOLIC PANEL, COMPREHENSIVE (34777)Indication: Hypertension, benign On: 56-Ymz-917809:14 Request LIPID PANEL (38162)Indication: Fibromyalgia (Renamed from Diffuse myofascial pain syndrome) On: 52-Zma-461133:14 Request TSH (THYROID STIMULATING HORMONE) (15938)Indication: Abnormal TSH On: :15 Request HGB A1C (39218)Indication: Impaired Fasting Glucose (Renamed from Elevated fasting blood sugar) On: :15 Request CBC with auto diff (99162)Indication: Hypertension, benign On: :15 Request METABOLIC PANEL, COMPREHENSIVE (56846)Indication: Hypertension, benign On: 2-Amx-607640:15 Request LIPID PANEL (22702)Indication: Other hyperlipidemia On: :14 Request ASSAY, TROPONIN, QUANTITATIVE (aka Troponin I) (21009)Indication: Atypical chest pain On: 2-Tbf-101192:02 Request TSH (59974)Indication: Abnormal TSH On: 6-Asa-316215:56 Request CBC WITH MANUAL DIFF (74673)Indication: Other specified nutritional anemias On: :48 Request Comments: 1 month TSH (THYROID STIMULATING HORMONE) (50353)Indication: Hypertension, benign On: 0-Rpu-733944:15 Request Iron (58088)Indication: Anemia On: 8-Ron-875043:59 Request METABOLIC PANEL, COMPREHENSIVE (90175)Indication: Other osteoporosis On: :01 Request Vitamin D Hydroxy (63330)Indication: Other osteoporosis On: :37 Request LIPID PANEL (97901)Indication: Other hyperlipidemia On: :36 Request HGB A1C (46425)Indication: Impaired Fasting Glucose (Renamed from Elevated fasting blood sugar) On: :35 Request MICROALBUMIN: CREATININE RATIO (36923) AND (38733)Indication: Impaired Fasting Glucose (Renamed from Elevated fasting blood sugar) On: :35 Request Metabolic Panel, Comprehensive (07784)Indication: Gastroenteritis On: 11-Jrc-884264:09 Request CBC, Platelets & Auto Diff (47088)Indication: Gastroenteritis On: :09 Request Sed Rate Erythrocyte (98933)Indication: Gastroenteritis On: 74-Btk-804447:09 Request CBC WITH MANUAL DIFF (12381)Indication: Anemia On: :12 Request Comments: 6 weeks TSH (21989)Indication: Abnormal TSH On: :11 Request Comments: 6 weeks VITAMIN B-12 (CYANOCOBALAMIN) (47697)Indication: Anemia On: :39 Request TSH (39180)Indication: Abnormal TSH On: :40 Request CBC W/AUTO DIFF WBC (07294)Indication: Anemia On: :40 Request TSH (02223)Indication: Abnormal TSH On: 77-Rxt-95896:25 Request Comments: ADD ON METABOLIC PANEL, COMPREHENSIVE (60173)Indication: Impaired Fasting Glucose (Renamed from Elevated fasting blood sugar) On: 84-Fot-008624:43 Request Anti-TPO Antibody (76927)Indication: Abnormal TSH On: :42 Request T4, FREE (THYROXINE) (78081)Indication: Abnormal TSH On: :42 Request T3, FREE (TRIDOTHYRONINE) (33494)Indication: Abnormal TSH On: :42 Request RHEUMATOID FACTOR-QUANT (78131)Indication: Chronic right shoulder pain On: : Request SED RATE ERYTHROCYTE (23802)Indication: Chronic right shoulder pain On: :32 Request C-REACTIVE PROTEIN (89043)Indication: Chronic right shoulder pain On: :32 Request CBC W/AUTO DIFF WBC (99942)Indication: Hypertension, benign On: :31 Request METABOLIC PANEL, COMPREHENSIVE (22538)Indication: Hypertension, benign On: :31 Request LIPID PANEL (35751)Indication: Other hyperlipidemia On: : Request TSH (98038)Indication: Chest pain at rest On: :31 Request HGB A1C (05879)Indication: Impaired Fasting Glucose (Renamed from Elevated fasting blood sugar) On: :00 Request CBC with auto diff (54765)Indication: Impaired Fasting Glucose (Renamed from Elevated fasting blood sugar) On: 1-Njz-429104:00 Request METABOLIC PANEL, COMPREHENSIVE (02080)Indication: Impaired Fasting Glucose (Renamed from Elevated fasting blood sugar) On: :00 Request LIPID PANEL (05964)Indication: Other hyperlipidemia On: 3-Lqn-404391:00 Request VITAMIN B-12 (CYANOCOBALAMIN) (72083)Indication: Other specified nutritional anemias On: 8-Ryl-188489:59 Request Vitamin D Hydroxy (10189)Indication: Other osteoporosis On: :59 Request CBC (AUTO) (79861)Indication: Other osteoporosis On: :48 Request Vitamin D Hydroxy (45264)Indication: Other osteoporosis On: :48 Request METABOLIC PANEL, COMPREHENSIVE (41306)Indication: Other hyperlipidemia On: :48 Request LIPID PANEL (71727)Indication: Other hyperlipidemia On: :48 Request SED RATE ERYTHROCYTE (25748)Indication: Chest pain, unspecified type On: :39 Request Comments: stat C-REACTIVE PROTEIN (02106)Indication: Chest pain, unspecified type On: :39 Request Comments: stat CBC W/AUTO DIFF WBC (16559)Indication: Chest pain, unspecified type On: :39 Request Comments: stat Hemoglobin Glyclated (HGB A1C) (15429)Indication: Impaired Fasting Glucose (Renamed from Elevated fasting blood sugar) On: 03-Wub-366049:50 Request URINALYSIS, W/ MICRO (47073)Indication: Hypertension, benign On: 91-Wxi-295000:49 Request CBC with auto diff (01983)Indication: Other specified nutritional anemias On: 96-Ytr-934192:49 Request METABOLIC PANEL, COMPREHENSIVE (20566)Indication: Other specified nutritional anemias On: 55-Bvn-639923:49 Request LIPID PANEL (24971)Indication: Other hyperlipidemia On: 55-Cei-170807:49 Request CBC W/AUTO DIFF WBC (42306)Indication: Other specified nutritional anemias On: :24 Request METABOLIC PANEL, COMPREHENSIVE (67938)Indication: Other hyperlipidemia On: :24 Request LIPID PANEL (20808)Indication: Other hyperlipidemia On: 46-Dcx-941426:24 Request IRON (43172)Indication: Other specified nutritional anemias On: 6-Olh-973373:37 Request Planned Encounters Medical; [facility] [...] DIGITAL TOMOSYNTHESIS OF On: 17-Nov-2017 Intent BREAST (94392)By: Fast DO, Enrike A Fast DO, Enrike A MRI OF THORACIC SPINE WITHOUT On: 13-Aug-2017 Intent CONTRAST (47149)By: Fast DO, Enrike A Fast DO, Enrike A MRI LUMBAR SPINE W/O CONTRAST On: 13-Aug-2017 Intent (88542)By: Fast DO, Enrike A Fast DO, Enrike A INJECTION, PROLIA (J0897)By: Fast On: 26-Jul-2017 Intent DO, Enrike A Fast DO, Enrike A Comments: Prolia prefilled syringe 60mg/mlLot:[id number]:10/2019L arm SQPt tolerated wellMLONG ,IT SYSTEMS ANALYST CONSULTANT Radiology - Lumbar SpineBy: Fast DO, On: 09-Jun-2017 Intent Enrike A Fast DO, Enrike A Radiology - Thoracic SpineBy: Fast On: 09-Jun-2017 Intent DO, Enrike A Fast DO, Enrike A MRI OF BRAIN WITH AND WITHOUT On: 13-Apr-2017 Intent CONTRAST (54682)By: Fast DO, Enrike A Fast DO, Enrike A ELECTROCARDIOGRAM, COMPLETE (ECG) On: 13-Apr-2017 Intent (88081)By: Fast DO, Enrike A Fast DO, Comments: [...] DIGITAL TOMOSYNTHESIS OF On: 30-Sep-2016 Intent BREAST (48578)By: Fast DO, Enrike A Comments: end oct Fast DO, Enrike A CT - Chest (Without Contrast)By: On: 30-Sep-2016 Intent Fast DO, Enrike A Fast DO, Enrike A Cartoid DopplerBy: Fast DO, Enrike A On: 04-Sep-2016 Intent Fast DO, Enrike A DEXA SCAN AXIAL SKELETON (18431)By: On: 04-Sep-2016 Intent Fast DO, Enrike A Fast DO, Enrike A Comments: mid september INJECTION, PROLIA (J0897)By: Fast On: 26-Aug-2016 Intent DO, Enrike A Fast DO, Enrike A Comments: prolialot:[id number]:12ite:lt subqroute:subqdose:60mg/mlD.ARNOLOD Ardon ELECTROCARDIOGRAM, COMPLETE (ECG) On: 22-Jul-2016 Intent (53591)By: Fast DO, Enrike A Fast DO, Comments: ekg showed normal sinus rhythym, normal axis, no acute st/t wave changes Enrike A Cartoid DopplerBy: Fast DO, Enrike A On: 25-May-2016 Intent Fast DO, Enrike A Comments: bilateral INFUSION, NORMAL SALINE SOLUTION , On: 09-Apr-2016 Intent 1000 CC (Special Coverage Instructions Apply. See MCM: 2049) (J7030)By: Albert JC, Madyson Roman ELECTROCARDIOGRAM, COMPLETE (ECG) On: 12-Feb-2016 Intent (15362)By: Fast DO, Enrike A Fast DO, Comments: ekg showed normal sinus rhythym, normal axis, no acute st/t wave changes Enrike A CT - Chest (Without Contrast)By: On: 12-Feb-2016 Intent Fast DO, Enrike A Fast DO, Enrike A Flu Vaccine (Quadrivalent) 78419Db: On: 12-Feb-2016 Intent Fast DO, Enrike A Fast DO, Enrike A Comments: FLUlot: [id number]:Lt deltoidroute:IMdose:.5mlARNOLDO WALLACE ADMINISTRATION OF INFLUENZA VIRUS On: 12-Feb-2016 Intent VACCINE (G0008)By: Fast DO, Enrike A Fast DO, Enrike A MAMMOGRAM, SCREENING, BOTH BREAST On: 13-Nov-2015 Intent (75687)By: Fast DO, Enrike A Fast DO, Enrike [...] Intent Fast DO, Enrike A [place]OST[place] VACC, [place] (74602)By: Reva, On: 06-Mar-2015 Intent [place] Comments: Zosterlot:[id number]:01/26/16ite:lt subqroute:subqDEMICK, SMA PNEUM VAC ADLT/IMUMNOSPR, SBC/INTRM On: 20-Feb-2015 Intent (24241)By: Visit, Nurse Comments: Pnuemovaxlot:[id number]:10/30/16site:lt deltoidroute:IMDose:.5mlDEMICK, SMA Flu Vaccine (Quadrivalent) 00511Rp: On: 11-Feb-2015 Intent Fast DO, Enrike A Fast DO, Enrike A Comments: Lot #:[id number] date: 08/2015Amount given:prefilled syringeSite given:L Dltd, IMGiven by: MARGOTH Garibay and ABN signed ADMINISTRATION OF INFLUENZA VIRUS On: 11-Feb-2015 Intent VACCINE (G0008)By: Fast DO, Enrike A Fast DO, Enrike A MAMMOGRAM, SCREENING, BOTH BREAST On: 25-Sep-2014 Intent (90593)By: Fast DO, Enrike A Fast DO, Enrike [...] 17-Apr-2014 Intent CHEST WITH AND WITHOUT CONTRAST (24965)By: Fast DO Enrike A Fast DO, Enrike A CT - Brain/HeadBy: Fast DO, Enrike A On: 16-Apr-2014 Intent Fast DO, Enrike A Doppler Ultrasound OtherBy: Fast DO, On: 16-Apr-2014 Intent Enrike A Fast DO, Enrike A EKG (16771)By: Fast DO, Enrike A On: 16-Apr-2014 Intent [...] Advance Directives Name Dates Details Immunization Registry Stacy - Effective on 02/22/2018. 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 The sc dical issues the patient is following up [...] is intermittent sharp pain- knees better - [employer] thinks her chest sx are muscluar , [...] current emotional problems. Note for Physical exam: [facility]- her blood pressures at home [...] for copd/cough - and [facility] monitoring her = bp is [...] did have (Mini mental exam passed with .opal End: 18-Jul-2015 9:39 r test passed with [...] The patient does have durable power of prosecuting attorney and l iving will (she thinks). The patient has noticed staying at home rather than doing something new or going out and lack of energy. Other providers contributing to the patient's care are sweater operator (Dr. Cota), egg worker (Dr. Pop) and other: (Educational Psychology Professor- Dr. Villa sees eye dr mann.). Note [...] with dosing regimen and considered effective by darwin End: 20-Jun-2015 12:12 nt. Patient sleeps 7 [...] scan and treadmill exercise stress test. Date: (3/3/16). Note for Discuss procedure results: she does [...] patient feels well with minor complaints (priya aranda helping with the knee pain/arthritis), has good [...] Limb swelling), Fatigue [facility] Payers Maxwell/Medicare Adv Olivia LOPEZ; a guarantor
--- OUTSIDE RECORDS SUMMARY | 2018-04-13 15:17 | XMS RPT_ITS | Continuity of Care Document ---
:1945 Author Organization [facility] Address [address] [place] [address] Phone Care Team Providers Name Role Phone Enrike Jaimes DO Unavailable Cipriano JC, Mike Avelar Unavailable Dayron Monique Unavailable Domenic Navarrete [place] Unavailable Steven Carlisle MD Unavailable [facility], [facility] Unavailable Phong Graham Unavailable MONICA Ruelas Unavailable Unavailable Sonam Adams Unavailable Unavailable Mao Benitez Unavailable Unavailable Albert JC, Madyson Roman Unavailable [...] Comments: risk factor modification Status: Active BMI 23.0-23.9, adult (Z68.23, V85.1) Status: Active Bronchitis, acute (J20.9, 466.0) Status: [...] Status: Active Memory loss (R41.3, 780.93) Comments: message to Landon to chinedu jourdan memory loss at this appt coming up Status: Active Need for prophylactic vaccination and [...] Status: Active Other osteoporosis (M81.8, 733.09) Comments: prolia due in dec Status: Active Pneumococcal vaccination given (Z23, V06.6) [...] of left thumb (M65.312, 727.03) Status: Active Medications Name Dates Details Advair Diskus 250-50 MCG/DOSE Inhalation Aerosol Powder Breath Activated 1 puff Aero Pow Br Act bid for 90 days Quantity: 3 {Disk} Refills: 3 Ordered:25-Jan-2017 Enrike MCDUFFIE DO Enrike A Start : 25-Jan-2017 Active AMIODARONE HCL, 200MG (Oral Tablet) 1 (one) Tablet Tablet two times daily for 30 days Quantity: 60 {Tablet} Refills: 0 Ordered:02-Jul-2015 Enrike Jaimes DO, DO Enrike A Start : 02-Jul-2015 Active AmLODIPine Besylate 10 MG Oral Tablet 1 (one) Tablet daily for 90 days Quantity: 90 {Tablet} Refills: 3 Ordered:09-Oct-2017 Enrike Jaimes DO AFnj MCDUFFIE Enrike A Start : 09-Oct-2017 Active ASPIRIN LOW DOSE, 81MG (Oral Tablet) 1 tab daily (81 MG) Active Atorvastatin Calcium 80 MG Oral Tablet 1 (one) Tablet daily for 30 days Quantity: 30 {Tablet} Refills: 3 Ordered:13-Aug-2017 Matt MCDUFFIE Enrike HUSAINnj MCDUFFIE, Enrike A Start : 13-Aug-2017 Active CALCIUM, 500MG (Oral Tablet) 2 tabs daily (500 MG) Active Carvedilol 25 MG Oral Tablet 1/2 Tablet bid for 90 days Quantity: 90 {Tablet} Refills: 3 Ordered:25-Jan-2017 Matt MCDUFFIEFaviogill HUSAINFavio mauro DOa A Start : 25-Jan-2017 Active Dexilant 60 MG Oral Capsule Delayed Release 1 (one) Capsule DR daily for 90 days Quantity: 90 {Capsule} Refills: 3 Ordered:26-Jan-2018 Mao Benitez Start : 26-Jan-2018 Active DULoxetine HCl 60 MG Oral Capsule Delayed Release Particles 1 (one) Capsule qd in evening for 0 days Quantity: 30 {Capsule} Refills: 6 Ordered:22-Dec-2017 Madyson Montiel MD Start : 22-Dec-2017 Active IPRATROPIUM BROMIDE, 0.06% (Nasal Solution) 2 sprays each nostril daily (0.06 %) Active Isosorbide Dinitrate 30 MG Oral Tablet 1 tab Tablet daily for 0 days Quantity: 30 {Tablet} Refills: 6 Ordered:04-Nov-2017 Matt MCDUFFIEEnrike LISHAFavio mauro DOa A Start : 04-Nov-2017 Active Levothyroxine Sodium 25 MCG Oral Tablet 1 (one) Tablet qd for 0 days Quantity: 34 {Tablet} Refills: 4 Ordered:17-Nov-2017 Matt MCDUFFIEEnrike LISHAnj MCDUFFIE Enrike A Start : 17-Nov-2017 Active Comments:2 on sundays Losartan Potassium-HCTZ 100-25 MG Oral Tablet 1 (one) Tablet qd for 90 days Quantity: 90 {Tablet} Refills: 3 Ordered:26-Jan-2018 Mao Benitez Start : 26-Jan-2018 Active Meloxicam 15 MG Oral Tablet 1 (one) Tablet daily for 90 days Quantity: 90 {Tablet} Refills: 3 Ordered:05-Aug-2017 Fast Enrike MCDUFFIE DO, Debra A Start : 05-Aug-2017 Active [...] 12-Jul-2017 Active Comments:Pt gets funding thru the [employer] so send a bill to either them or the pt and then they will [id number] 07/28/16 RaNITidine HCl 300 MG Oral Tablet [...] 500MG (Oral Tablet) 1 (one) Tablet daily [id number] for 14 days Quantity: 14 {Tablet} Refills: 0 Ordered:23-Apr-2014 Matt MCDUFFIE Enrike HUSAINnj Enrike A Start : 23-Apr-2014 End : 07-May-2014 Inactive Comments:with probiotic PredniSONE 10 MG Oral Tablet 3 (three) Tablet pills for 3 days 2 pils for 3 days 1 pill for 3 days for 0 days Quantity: 18 {Tablet} Refills: 0 Ordered:26-Mar-2017 Matt MCDUFFIE Enrike HUSAINnj Enrike A Start : 02-Feb-2017 End : 26-Mar-2017 Inactive Comments:take with food in [facility] while on this Promethazine HCl 12.5 MG Oral Tablet 1 (one) Tablet q 6 hours prn for 0 days Quantity: 20 {Tablet} Refills: 0 Ordered:14-Apr-2016 MONICA Ruelas Start : 09-Apr-2016 End : 14-Apr-2016 Inactive Comments:twenty TRAMADOL HCL, 50MG (Oral Tablet) 1 (one) Tablet daily for 30 days Quantity: 30 {Tablet} Refills: 0 Ordered:24-Oct-2014 Matt MCDUFFIE Enrike HUSAINnj MCDUFFIE Enrike A Start : 24-Oct-2014 End : [...] days Quantity: 60 {Tablet} Refills: 0 Ordered:13-Nov-2014 Matt MCDUFFIE Enrike HUSAINnj Enrike A Start : 13-Nov-2014 End : 13-Nov-2014 Discontinued Comments:Dr. Navarrete RANITIDINE HCL, 300MG (Oral Capsule) 1 cap daily (300 MG) End : 17-Jul-2015 Discontinued Allergies and Adverse Reactions Name Dates Details No Known Allergies (Allergy) Onset: 25-Dec-2016 Status: Active No Known Drug Allergies (Allergy) Onset: 16-Apr-2014 Status: Active Past Medical History Name Dates Details Abnormal CT of the chest (R93.8, 793.2) Status: Resolved as of 16-Nov-2017 Abnormal [...] V85.1) Status: Inactive as of 09-Jun-2017 BMI 24.0-24.9, adult (Z68.24, V85.1) Status: Resolved [...] evualate at home with meds and afib [facility]. i went to house, called in [employer], told her brat diet slowly, my nurse [...] Visit Report Result: Comments: See Note; NOTES: [facility] Oncology [address] [place] [address] [place] [address] OFFICE VISIT Date of Service: 01/25/18 1145 MR#: [id number] Acct: [id number] Name: LUPE LOPEZ Rep #: [id number] : 1945 From: Red Spaulding MD Age/Sex: [...] Iron supplements with Vitamin C o r [place] juice. Check stool for FOBT. RTC 6 [...] Chronic Code Visit Office Visits / Consults: 78923 OV L3 Est 01/25/18 1153 <Electronically signed by Red Spaulding MD> Date Red Spaulding MD Cosigner Signature: Date (if applicable) CC: Enrike Jaimes DO -Dec-2017 Cerv Spine 2 or 3 Views Result: Comments: See Note; NOTES: [facility] Imaging Services [address] [place] [address] Cerv Spine 2 or 3 Views MR#: [id number] Acct: [id number] Name: LUPE LOPEZ Rep #: [id number] : 1945 F 72 From: Ming Odonnell MD PCP: Enrike Jaimes DO Status: REG CLI Study: Cerv Spine 2 or 3 Views Date of Exam: 12/23/17 Exam# [id number] Ordering Dr: Karla Berry [employer] STUDY: X-RAY - C ERVICAL SPINE REASON [...] Fax CC: Enrike Jaimes DO; Karla Berry Stacker Straightener: Signed 23-Dec-2017 Thoracic Spine 2 Views Result: Comments: See Note; NOTES: [facility] Imaging Services [address] [place] [address] Thoracic Spine 2 Views MR#: [id number] Acct: [id number] Name: LUPE LOPEZ Rep #: [id number] : 1945 F 72 From: Ming Odonnell MD PCP: Enrike Jaimes DO Status: REG CLI Study: Thoracic Spine 2 Views Date of Exam: 12/23/17 Exam# [id number] Ordering Dr: Karla Berry STUDY: X-RAY - [...] CC: Enrike Jaimes DO; Karla LOPEZ Prebish Stacker Straightener: Signed 11-Dec-2017 Carotid Duplex Ultrasound Result: Comments: See Note; NOTES: [facility] Cardiovascular Services [address] [place] [address] Carotid Duplex Ultrasound 12/10/17 1013 MR#: [id number] Acct: [id number] Name: LUPE BOOGIE Rep #: [id number] : 1945 72 From: Brice Murphy MD Attending Dr: Enrike Jaimes DO Status: REG CLI Ordering Dr: Enrike Jaimes DO Date: 12/10/17 Location: [facility] Sex: F C Admitted: Reason For [...] the left vertebral artery. Procedure Carotid Duplex 25737. Exam performed in department. Interpretation Summary Mild (<50%) stenosis right extracranial inter nal carotid. Mild (<50%) stenosis left extracranial internal carotid. Flow within the vertebral arteries is antegrade bilaterally. Ordering Physician: Enrike Jaimes Referring Physician: Enrike Jaimes Performed By: Riaz Ashley RVT and Student 12/11/17 1406 Date Brice Murphy MD CC: Enrike Jaimes DO Date Dictated: 12/10/17 1013 Date Transcribed: 12/11/17 1406 Stacker Straightener: Signed 10-Dec-2017 SCREENING MAMM (CAD), BILAT Result: Comments: See Note; NOTES: [facility] Imaging Services [address] [place] [address] SCREENING MAMM (CAD), BILAT MR#: [id number] Acct: [id number] Name: LUPE LOPEZ Rep #: [id number] : 1945 F 72 From: Johnny Gilman MD PCP: Enrike Jaimes DO Status: [facility] Study: SCREENING MAMM (CAD), BILAT Date of Exam: 12/10/17 Exam# [id number] Ordering Dr: Enrike Jaimes DO MAMM OGRAPHY [...] will be sent to the patient by [facility] facility within 30 days. Approximately 10% of breast cancers are not detected by mammography. A normal mammogram should not delay biopsy of a clinically suspicious abnormality. [id number] Electronical ly Signed: Johnny Gilman MD at 13:14 EDT Tel [phone], Service support , CC: Enrike Jaimes DO Stacker Straightener: Signed 30-Nov-2017 Pulmonary Visit Report Result: Comments: See Note; NOTES: [facility] [address] [place] [address] OFFICE VISIT Date of Service: 11/30/17 MR#: [id number] Acct: [id number] Name: LUPE BOOGIE Rep #: [id number] : 1945 Provider: Merlin Pop MD Age/Sex: 72/F [place] [facility] Status: Signed Assessment AND Plan Problems 1. [...] Orders: Medications Discontinued: azelastine admini ster into afjn808.5 mcg (0.14 mL) Intranasal BIDJ30.2 Merlin Pop MD nostril Discontinued Reason: Pt no longer taking HPI 6 M FU: Chief Complaint: Chronic cough Details: Patient is a 72-year-old [facility] female, currently under care of Dr. 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) Moderate [...] Admin Location Lot Number Ex piration Date NDC Dry Pan Charger 0.5 mL IM Left Deltoid [id number] 07/19/17 11374-038-74 SEQIRUS VIS Given Date VIS Publication Date 11/30/17 10/26/14 Eligibility Eligibility Date Coding Level of Care Code O ff vis,est,level 3 Diagnoses Moderate persistent asthma without complication J45.40 Asthma complication type: uncomplicated Lung nodule R91.1 Paroxysmal atrial fibrillation I48.0 11/30/17 1054 & #60;Electronically signed by Merlin Pop MD> Date Merlin Pop MD Cosigner Signature: Date (if applicable) CC: Enrike Matt MCDUFFIE 09-Sep-2017 Downtime Report Result: Comments: See Note; NOTES: [facility] Medical Records Department [address] [place] [address] Downtime Report MR#: [id number] Acct: [id number] Name: LUPE LOPEZ Rep #: [id number] : 1945 72 From: Turner Diop PCP: Enrike Jaimes DO Status: REG CLI This patient was seen during an EMR downtime August 23, 2017 - August 30, 2017. This patient may have a combination of rosa maria r and electronic documentation or all paper documentation. All documentation is viewable within the e-chart portion of [facility] for each patient visit. 27-Aug-2017 Spine Lumbar (Routine) Result: Comments: See Note; NOTES: [facility] Imaging Services [address] [place] [address] Spine Lumbar (Routine) MR#: [id number] Acct: [id number] Name: LUPE LOPEZ Rep #: [id number] : 1945 F 72 From: Carlos Pizano PCP: Enrike Jaimes DO Status: REG CLI Study: Spine Lumbar (Routine) Date of Exam: 08/25/17 Exam# [id number] Ordering Dr: Enrike Jaimes DO STUDY: MRI [...] suppo rt , CC: Enrike Jaimes DO Stacker Straightener: Signed 11-Aug-2017 Re-Evaluation - PT (1) Result: Comments: See Note; NOTES: [facility] Physical Therapy [facility] [address] [place] [address]. [address] [place] [address] Fax REEVALUATION / MEDICARE RECERTI [facility] MR#: [id number] Acct: [id number] Name: LUPE LOPEZ Rep #: [id number] : 1945 72 From: Shanon Ferrara MPT Referring : Enrike Jaimes DO Status: REG RCR Insurance: [employer] MEDICARE PPO SELF PAY INSURANCE Enrike Jaimes DO, It has been my pleasure to treat LUPE LOPEZ over the last 7 visits for LOW BACK PAIN. Please see the progress note below for an update on th e physical therapy plan of care! Subjective: Pt [...] Frame: 4-6 Weeks Goal Progress: Goal Met [place] shetty Interventions Patient/Client Instruction: Educate patient on: Condition, [...] do not hesitate to contact me at [phone] by phone or if you have questions or concerns regarding this new plan of care! Sincerely, Shanon Ferrara &#60 ;Electronically signed by Shanon Ferrara MPT> 08/11/17 1913 CC: Enrike Jaimes DO Signed For Medicare only, by signing this I certify the plan of care. Physicians Signature Date 27-Jul-2017 Oncology Visit Report Result: Comments: See Note; NOTES: [facility] Oncology [address] [place] [address] [place] [address] OFFICE VISIT Date of Service: 07/27/17 1128 MR#: [id number] Acct: [id number] Name: LUPE LOPEZ Rep #: [id number] : 1945 From: Red Spaulding MD Age/Sex: [...] continue Iron supplements with Vitamin C or [place] juice. RTC 6 months with CBC, CMP, Iron studies. Me dications: Prescriptions This Visit Medication Instructions Recorded Meloxicam [Mobic] 15 mg PO DAILY 06/16/16 Rivaroxaban [Xarelto] 20 mg PO DAILY 06/29/16 Primary Care Provider: DO Louis Stone Provider: - Problem List (1) Iron deficiency Status: Resolved Code Visit Office Visits / Consults: 54076 OV L3 Est 07/27/17 1135 <Electronically signed by Red Spaulding MD> Date Rde Spaulding MD Cosigner Signature: Date (if applicable) CC: 15-Jul-2017 Stress Report Result: Comments: See Note; NOTES: [facility] Cardiovascular Services [address] [place] [address] MR#: [id number] Acct: [id number] Name: LUPE LOPEZ Rep #: [id number] : [birth year] 72 From: Mike Cota MD [...] %. This note was g enerated with WorldTVation software. It may contain incorrect words, spelling, and punctuation that were not noted in checking the note before signing. 07/15/17 1311 <Electronically s igned by Mike Cota MD> Date Mike Cota MD CC: Enrike Jaimes DO; Mike Cota MD Date Dictated: 07/15/17 1307 Date Transcribed: 07/15/171306 Stacker Straightener: PM Signed 08-Jul-2017 Inital Evaluation (1) - PT Result: Comments: See Note; NOTES: [facility] Physical Therapy [facility] [address] [place] [address]. [address] [place] [address] Fax REHABILITATION SERVICES INITIAL EVALUATION MR#: [id number] Acct: [id number] Name: LUPE LOPEZ Rep #: [id number] : 1945 72 From: Domenic Ayala PT, Cert. MDT, OCS Referring DrBrooke: Enrike Jaimes DO Status: REG RCR Insurance: [facility] MEDICARE PPO SELF PAY INSURANCE Patient's Visit [...] to be FAXED BACK to us at [phone] for Medicare purposes. Please let me know if there are questions or concerns regarding this plan of care. Physician Luther william: Date: <Electronically signed by Domenic Ayala PT, Cert. MDT, OCS> 07/08/17 1332 CC: Enrike Jaimes DO D HEMA Signed For Medicare only, by signing this I certify the plan of care. Physicians Signature Date 05-Jul-2017 Cardiology Visit Report Result: Comments: See Note; NOTES: [facility] [address] [place] [address] OFFICE VISIT Date of Service: 07/05/17 MR#: [id number] Acct: [id number] Name: LUPE LOPEZ Rep #: [id number] : 1945 Provider: Mike Cota MD Age/Sex: 72/F [place] [facility] [place] Status: Signed HPI HPI Details: LUPE [...] Her previous diagnostic cardiac cathete rization from [facility] from 05/03/2009 is as noted below. ASSESSMENT: 1. Mild to moderate coronary atherosclerosis, non-flow limiting by angiography. 2. Presered left taab8wkcvd systolic a nd diastolic function. CLINICAL CORRELATION: This Is a 64-year-old wtio presents with angina ha1ng atypical features, she has nonflowIlmTting disease hr which aggressiw medical therapy is warranted Incl uding aspirin, beta jonn, DAPHNEY Inhibitor, and statin therapy. 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 She will also follow with her business intelligence administrator based on her underlying pulmonary disease process [...] disease) I25.10 Coronary Disease-Associated Arter y/Lesion type: pokagon artery Hyperlipidemia, unspecified hyperlipidemia type E78.5 Hyperlipidemia type: unspecified Essential hypertension I10 Hypertension type: essential hypertension Chest pain, unspe cified type R07.9 Chest pain type: unspecified Coding Level of Care Code Off vis,est,level 4 Diagnoses Paroxysmal atrial fibrillation I48.0 CAD (coronary artery disease) I25.10 Coronary Disease-Assoc iated Artery/Lesion type: pok[place] artery Hyperlipidemia, unspecified hyperlipidemia type E78.5 Hyperlipidemia type: unspecified Essential hypertension I10 Hypertension type: essential hypertension Chest pain, unspecified type R07.9 Chest pain type: unspecified 07/05/17 1123 <Electronically signed by Mike Cota MD> Date Mike washburn MD Cosigner Signature: Date (if applicable) CC: Enrike Jaimes DO 05-Jul-2017 12 Lead EKG performed by [facility] Result: Comments: See Note; NOTES: [facility] [address] [place] [address] 12 Lead EKG performed by [facility] 07/05/17 1033 MR#: [id number] Acct: [id number] Name: LUPE SANDOVAL Rep #: [id number] : 1945 72 From: Mike Cota MD Attending Dr: Mike Cota MD Status: DEP [facility] Ordering Dr: Mike Cota MD Date: 07/05/17 [place] [facility] [place] Sex: F C Admitted[place] [facility]12 Lead EKG performed by [facility] ECG Report Interpretation Sinus Bradycardia -First degree A-V block Poor R wave progressionElectronically signed on 2017 at 11:45 by Mike Cota 07/05/17 1146 Date Mike Cota MD CC: Enrike Fast DO Date Dictated: 07/05/17 1033 Date Transcribed: 07/05/17 1033 Stacker Straightener: PM Signed 16-Jun-2017 Pulmonary Visit Report Result: Comments: See Note; NOTES: [facility] [place] [address] [place] [address] OFFICE VISIT Date of Service: 06/16/17 MR#: [id number] Acct: [id number] Name: LUPE BOOGIE Rep #: [id number] : 1945 Provider: Kirsten Padilla Age/Sex: 72/F [place] [facility] [place] Status: Signed Assessment AND Plan 1. 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) Moderate [...] hand surgery (Resolved) Family History (Revie wed 06/16/17 @ 17:00 by Kirsten Padilla, [employer]C) Sister Breast cancer Brother Heart disease Sister [...] cified 06/16/17 1706 <Electronically signed by Kirsten LOPEZ> Date Kirsten Padilla [employer] Cosigner Signature: Date ___ (if applicable) CC: Enrike Jaimes DO 09-Jun-2017 L/S Spine Min 4 Views Result: Comments: See Note; NOTES: [facility] Imaging Services [address] [place] [address] L/S Spine Min 4 Views MR#: [id number] Acct: [id number] Name: LUPE LOPEZ Rep #: [id number] : 1945 F 72 From: Brennan Mike DO PCP: Enrike Jaimes DO Status: REG CLI Study: L/S Spine Min 4 Views Date of Exam: 06/09/17 Exam# [id number] Ordering Dr: Enrike Jaimes DO STUDY: X-RAY [...] Brennan Mike DO at 16:29 EDT Tel [phone], Service support , Fax CC: Enrike Jaimes DO Stacker Straightener: Signed 09-Jun-2017 Thoracic Spine 3 Views Result: Comments: See Note; NOTES: [facility] Imaging Services [address] [place] [address] Thoracic Spine 3 Views MR#: [id number] Acct: [id number] Name: LUPE LOPEZ Rep #: [id number] : 1945 F 72 From: Jose Antonio Jensen PCP: Enrike Jaimes DO Status: REG CLI Study: Thoracic Spine 3 Views Date of Exam: 06/09/17 Exam# [id number] Ordering Dr: Enrike Jaimes DO STUDY: X-RAY [...] suppo rt , CC: Enrike Jaimes DO Stacker Straightener: Signed 19-Apr-2017 Brain W/WO Contrast Result: Comments: See Note; NOTES: [facility] Imaging Services [address] [place] [address] Brain W/WO Contrast MR#: [id number] Acct: [id number] Name: LUPE LOPEZ Rep #: [id number] : 1945 F 72 From: Steven Ratliff MD PCP: Enrike Jaimes DO Status: REG CLI Study: Brain W/WO Contrast Date of Exam: 04/19/17 Exam# [id number] Ordering Dr: Enrike Jaimes DO STUDY: MRI [...] Service support , CC: Enrike Jaimes DO Stacker Straightener: Signed 05-Jan-2017 Hepatobilliary Img w/Pharm Int Result: Comments: See Note; NOTES: [facility] Imaging Services [address] [place], [place] [address] [address] Hepatobilliary Img w/Pharm Int MR#: [id number] Acct: [id number] Name: LUPE LOPEZ Rep # : [id number] : 1945 F 71 From: Dom Sorto DO PCP: Enrike Jaimes DO Status: REG CLI Study: Hepatobilliary Img w/Pharm Int Date of Exam: 01/05/17 Exam# [id number] Ordering Dr: Enrike Jaimes DO CLI NICAL: [...] Service support , CC: Enrike Jaimes DO Stacker Straightener: Signed 23-Dec-2016 Gallbladder Result: Comments: See Note; NOTES: [facility] Imaging Services [address] [place] [address] Gallbladder MR#: [id number] Acct: [id number] Name: LUPE LOPEZ Rep #: [id number] : F 71 From: Terri Dash MD PCP: Enrike Jaimes DO Status: REG CLI Study: Gallbladder Date of Exam: 12/23/16 Exam# [id number] Ordering Dr: Enrike Jaimes DO US Gallbladder [...] Service support , CC: Enrike Jaimes DO Stacker Straightener: Signed 19-Nov-2016 SCREENING MAMM (CAD), BILAT Result: Comments: See Note; NOTES: [facility] Imaging Services [address] [place] [address] SCREENING MAMM (CAD), BILAT MR#: [id number] Acct: [id number] Name: LUPE LOPEZ Rep #: [id number] : 1945 F 71 From: Johnny Gilman MD PCP: Enrike Jaimes DO Status: REG CLI Study: SCREENING MAMM (CAD), BILAT Date of Exam: 11/19/16 Exam# [id number] Ordering Dr: Enrike Jaimes DO MAMM OGRAPHY [...] Johnny Gilman MD at 11:14 EDT Tel [phone], Service support , CC: Enrike Jaimes DO Stacker Straightener: Signed 17-Nov-2016 6 Minute Walk Test Result: Comments: See Note; NOTES: [facility] Pulmonary Services/Neurology [address] [place] [address] MR#: [id number] Acct: [id number] Name: LUPE LOPEZ Rep #: [id number] : 1 04/14/1944 71 From: Merlin Pop MD Referring Dr: Kirsten Padilla [employer] Date: Ordering Dr: Sex: F C Location: [facility] PSN 6 Minute Walk Test - 6 Minute Walk Test 6 Minute Walk Test: 6 Minute Walk Test PS N:6-Minute Walk Test Start: 11/17/16 11:09 Freq: Status: Active Document 11/17/16 11:00 HG (Rec: 11/17/16 11:11 HG [id number]) 6 Minute Walk Test Date Performed 11/17/16 [...] oxygen is indicated at this time. 11/17/16 1549 <Electronically signed by Merlin Pop MD> Date Merlin Pop MD CC: Date Dictated: 11/17/161548 Date Transcribed: 11/17/161548 Stacker Straightener: Merlin Pop Signed 12-Nov-2016 Pulmonary Function Report Comp Result: Comments: See Note; NOTES: [facility] Pulmonary Services/Neurology [address] [place] [address] MR#: [id number] Acct: [id number] Name: LUPE LOPEZ Rep #: [id number] : 71 From: Merlin Pop MD Referring Dr: Kirsten Padilla SUPERVIS[employer] Status: REG CLI Ordering Dr: Date: Location: [facility] Sex: F C COMPLETE PULMONARY FUNCTION TEST INTERPRETATION Brief HPI: Patient is a 71 year old female, currently under the care of myself, who presents to [facility] for complete pulmonary function tests [...] Pop MD CC: Merlin Pop MD; Enrike Fast DO Date Dictated: 11/12/161532 Date Transcribed: 11/12/161532 Stacker Straightener: EDENILSON Signed 06-Oct-2016 Chest without Contrast Result: Comments: See Note; NOTES: [facility] Imaging Services [address] [place] [address] Obduliadana 4d Chest without Contrast MR#: [id number] Acct: [id number] Name: LUPE LOPEZ p #: [id number] : 1945 F 71 From: Sonam Hendricks MD PCP: Enrike Jaimes DO Status: REG CLI Study: Chest without Contrast Date of Exam: 10/06/16 Exam# [id number] Ordering Dr: Enrike Jaimes DO STUDY: CT [...] Sonam Hendricks MD at 23:59 EDT Tel [phone], Service support , CC: Enrike Jaimes DO Stacker Straightener: Signed 29-Sep-2016 Dexa Bone Density Study (HP) Result: Comments: See Note; NOTES: [facility] Imaging Services [address] [place] [address] Verdana 4d Dexa Bone Density Study (HP) MR#: [id number] Acct: [id number] Name: BRAYDON LOPEZ Rep #: [id number] : 1945 F 71 From: Johnny Gilman MD PCP: Enrike Jaimes DO Status: REG CLI Study: Dexa Bone Density Study (HP) Date of Exam: 09/29/16 Exam# [id number] Ordering Dr: Szymanski DO STUDY: DUAL ENERGY [...] (0.653) / T-score (-2.8) / Z-score (-1.0) HP BD/Dexa Bone Density Study (HP) IMPRESSION: The [...] Johnny Gilman MD at 9:38 EDT Tel [phone], Service support , CC: Enrike Jaimes DO Stacker Straightener: Signed 19-Sep-2016 Carotid Duplex Ultrasound Result: Comments: See Note; NOTES: [facility] Cardiovascular Services [address] [place] [address] Carotid Duplex Ultrasound 09/18/16 1406 MR#: [id number] Acct: [id number] Name: LUPE BOOGIE Rep #: [id number] : 1945 71 From: Brice Murphy MD Attending Dr: Enrike Jaimes DO Status: REG CLI Ordering Dr: Enrike Jaimes DO Date: 09/18/16 Location: [facility] Sex: F C Admitted: Reason [...] the left vertebral artery. Procedure Carotid Duplex 03894. The exam was diagnostic. Exam performed in [facility]. Interpretation Summary Mild (<50%) stenosis right extracranial internal carotid. Mild (<50%) stenosis left extracranial internal carotid. Flow within the vertebral arteries i s antegrade bilaterally. There has been no significant change since a prior study on 05/23/2015. Or dering Physician: Enrike Jaimes Referring Physician: Enrike Jaimes Performed By: Wendy López, RDCS, RVT 09/19/1644 Date Brice Murphy MD CC: Enrike Jaimes DO Date Dictated: 09/18/16 1406 Date Transcribed: 09/19/16943 Stacker Straightener: Signed 16-Sep-2016 PT D/C Summary (1) Result: Comments: See Note; NOTES: [facility] Physical Therapy [facility] [address] [place] [address]. [address] [place], [place] [address] Fax [facility] MR#: [id number] Acct: [id number] Name: LUPE LOPEZ Rep #: [id number] [...] a series of botox injections but insumary ce does not comever that. Doing HEP [...] Sincerely, Shanon Ferrara <Electronically signed by Shanon CASTILLO> 09/16/16 1054 CC: Enrike Jaimes DO Signed 26-Aug-2016 Re-Evaluation - PT (1) Result: Comments: See Note; NOTES: [facility] Physical Therapy [facility] [facility]. [address] [place] [address] Fax REEVALUATION / MEDICARE RECERTI KALEN Solomon 4d PHYSICAL THERAPY MR#: [id number] Acct: [id number] Name: LUPE LOPEZ Rep #: [id number] : 1945 71 From: Shanon CASTILLO Referring DrBrooke: Enrike Fast DO Status: REG RCR Insu erika: [employer]M MEDICARE PPO Enrike Jaimes, DO, It has been my pleasure to treat LUPE LOPEZ over the last 8 visits for Neck Pain. Please see the progress note below for an update on the [facility] plan of care! Subjective: Pt reports that [...] Yes Cryotherapy (ice pack, ice massage): Yes ermo therapy (hot pack): Yes Ultrasound (thermal/non thermal): Yes For the Purpose of:: To decrease pain, To decrease swelling/inflammation, To increase ROM, To improve nutrient delivery to tissue, To i mprove muscle performance and motor function, To improve ability to perform ADL's Please do not hesitate to contact me at [phone] by phone or if you have questions or concerns reg arding this new plan of care! Sincerely, Shanon Ferrara <Electronically signed by Shanon Ferrara MPT> 08/26/16 1827 CC: Enrike Jaimes DO Signed For Medic are only, by signing this I certify the plan of care. Physicians Signature Date 28-Jul-2016 Inital Evaluation (1) - PT Result: Comments: See Note; NOTES: [facility] Physical Therapy [facility] [address] [place] [address] Rd[address] [place] [address] Fax REHABILITATION SERVICES INITIAL EVALUATION MR#: [id number] Acct: [id number] Name: LUPE LOPEZ Rep #: [id number] [...] opportunity to evaluate your patient. For Medic [facility] and Medicare HMO plans, please review the plan of care and approve it. It will need to be FAXED BACK to us at [phone] for Medicare purposes. Please let me know if there are questions or reza rns regarding this plan of care. Physician Signature: Date: <Electronically signed by Shanon Ferrara MPT> 07/28/16 1629 CC: Enrike Jaimes DO Signed For Medicare only, by signing this I certify the plan of care. Physicians Signature Date 08-Jul-2016 Oncology Progress Note Result: Comments: See Note; NOTES: [facility] Medical Records Department [address] [place] [address] Oncology Progress Note MR#: [id number] Acct: [id number] Name: LUPE LOPEZ Rep #: [id number] : 1945 71 From: Red Spaulding MD [...] B12 and folate. Red Spaulding MD T: [facility] JOB: [id number] 07/08/16 1043 <Electronically signed by Red Spaulding MD> Date Red Spaulding MD Cosigner Signature (If Indicated): Date CC: Date Dictated: 0404/07 Date Transcribed: 06/30/162251 Stacker Straightener: Signed 21-Feb-2016 Chest without Contrast Result: Comments: See Note; NOTES: [facility] Imaging Services [address] [place] [address] Verdana 4d Chest without Contrast MR#: [id number] Acct: [id number] Name: LUPE LOPEZ p #: [id number] : 1945 F 71 From: Barrett Small MD PCP: Enrike Jaimes DO Status: REG CLI Study: Chest without Contrast Date of Exam: 02/21/16 Exam# [id number] Ordering Dr: Enrike Jaimes DO STUDY : [...] MD at 2:43 EST , Service support [phone], CC: Enrike Jaimes DO Stacker Straightener: Signed 08-Dec-2015 Pulmonary Function Report Comp Result: Comments: See Note; NOTES: [facility] Pulmonary Services/Neurology [address] [place] [address] Pulmonary Function Test (Comp) MR#: [id number] Acct: [id number] Name: Oliver LOPEZ Rep #: [id number] : 1945 70 From: Merlin Pop MD Referring Dr: Kirsten Padilla SUPER[employer] WORK[employer] Status: REG CLI Ordering Dr: Kirsten Padilla SUPER[employer]-C Date: 12/06/15 Location: N Sex: F C DATE OF S ERVICE: 12/06/2015 BRIEF HISTORY OF PRESENT ILLNESS: The [...] 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 MERLIN POP MD C C: The patient's primary care physician T: NTS JOB: [id number] 12/08/15 0651 <Electronically signed by Merlin Pop MD> Date __ Merlin Pop MD CC: Merlin Pop MD; Kirsten Padilla; Enrike Jaimes DO Date Dictated: 12/07/15 1235 Date Transcribed: 12/07/15 1235 Stacker Straightener: Signed 19-Nov-2015 Bilat Scrn Digital AND CAD Result: Comments: See Note; NOTES: [facility] Imaging Services [address] [place] [address] Verdana 4d Bilat Scrn Digital AND CAD MR#: [id number] Acct: [id number] Name: DYLAN LOPEZ Rep #: [id number] : 1945 F 70 From: Johnny Gilman MD PCP: Enrike Jaimes DO Status: REG CLI Study: Bilat Scrn Digital AND CAD Date of Exam: 11/19/15 Exam# [id number] Ordering Dr: Enrike Jaimes DO MAMMOGRAPHY - [...] delay biopsy of a clinically suspicious abnormality. [id number] Electronically Signed: Johnny Gilman MD at 8:15 ED T Tel [phone], Service support [phone], CC: Enrike Jaimes DO Stacker Straightener: Signed 07-Oct-2015 Knee 4 or More Views Result: Comments: See Note; NOTES: [facility] Imaging Services [address] [place] [address] Verdana 4d Knee 4 or More Views MR#: [id number] Acct: [id number] Name: LUPE LOPEZ Rep #: [id number] : 1945 F 70 From: Johnny Gilman MD PCP: Enrike Jaimes DO Status: REG CLI Study: Knee 4 or More Views Date of Exam: 10/07/15 Exam# [id number] Ordering Dr: Yamileth Jaimes DO STUDY: X-RAY [...] Johnny Gilman MD at 13:02 EDT Tel [phone], Service support [phone], RAD/Knee 4 or More Views IMPRESSION: Minimal joint effusion. Electronically Signed: Johnny Gilman MD at 13:02 EDT Tel [phone], Service support [phone], CC: Enrike Jaimes DO Stacker Straightener: Signed 27-Aug-2015 PT D/C Summary (1) Result: Comments: See Note; NOTES: [facility] Physical Therapy [facility] [address] [place] [address]. [address] [place] [address] Fax REHABILITATION SE RVICES DISCHARGE SUMMARY MR#: [id number] Acct: [id number] Name: LUPE LOPEZ Rep #: [id number] : 1945 70 From: Domenic Ayala PT, Cert. MDT Referring Dr.: Enrike Jaimes DO Status: REG R CR Insurance: [employer]M MEDICARE FREED[employer] BLUE - PT D/C Summary It has been [...] IS PAIN FULL TODAY . MAY SEE . NO CERVICAL PAIN - Pain Right Shoulder [...] feel free to c all me at [phone]. Thank you for the referral of this patient. Sincerely, Domenic Ayala <Electronically signed by Domenic Ayala PT, Cert. JCT> 08/27/15 1406 CC: Enrike Jaimes DO Signed 06-Aug-2015 Inital Evaluation (1) - PT Result: Comments: See Note; NOTES: [facility] Physical Therapy [facility] [address] [place] [address] Fax REHABILITATION [facility] INITIAL EVALUATION MR#: [id number] Acct: [id number] Name: LUPE LOPEZ Rep #: [id number] : 1945 70 From: Cert. BABITA Bonilla [...] to be FAXED BACK to us at [phone] for Medicare purposes. Please let me know [...] 5 Views Result: Comments: See Note; NOTES: [facility] Imaging Services [address] [place] [address] Verdana 4d Cerv Spine 4 or 5 Views MR#: [id number] Acct: [id number] Name: LUPE MCCARTHY Rep #: [id number] : 1945 F 70 From: Vu Hankins MD PCP: Enrike Jaimes DO Status: REG CLI Study: Cerv Spine 4 or 5 Views Date of Exam: 07/30/15 Exam# [id number] Ordering Dr: Szymanski DO STUDY: X-RAY - [...] MD at 17:12 EDT , Service support [phone], RAD/Cerv Spine 4 or 5 Views IMPRESSION: Diffuse oste openia with moderate cervical spondylosis. Electronically Signed: Vu Hankins MD at 17:12 EDT , Service support [phone], CC: Enrike Jaimes DO Stacker Straightener: Signed 30-Jul-2015 Shoulder min 2 Views Result: Comments: See Note; NOTES: [facility] Imaging Services [address] [place] [address] [place] [address] 4d Shoulder min 2 Views MR#: [id number] Acct: [id number] Name: LUPE LOPEZ Rep #: [id number] : 1945 F 70 From: Vu Hankins MD PCP: Enrike Jaimes DO Status: REG CLI Study: Shoulder min 2 Views Date of Exam: 07/30/15 Exam# [id number] Ordering Dr: Enrike Jaimes DO STUDY: X-RAY [...] at 17:12 EDT Tel , Service support [phone], RAD/Shoulder min 2 Views IMPRESSION: Normal x-ray examination of the shoulder. Electronically Signed: Vu Hankins MD 07/29 at 17:12 EDT , Service support [phone], CC: Enrike Jaimes DO Stacker Straightener: Signed 02-Jul-2015 Chest PA and Lateral Result: Comments: See Note; NOTES: [facility] Imaging Services [address] [place] [address] Verdana 4d Chest PA and Lateral MR#: [id number] Acct: [id number] Name: LUPE LOPEZ Rep #: [id number] : 1945 F 70 From: Johnny Gilman MD PCP: Enrike Jaimes DO Status: REG CLI Study: Chest PA and Lateral Date of Exam: 07/02/15 Exam# [id number] Ordering Dr: Yamileth Jaimes DO STUDY: X-RAY [...] Johnny Gilman MD at 11:24 EDT Tel [phone], Service support [phone], RAD/Chest PA and Lateral IMPRESSION: The previously seen right upper lobe infiltrate rome s resolved. No acute abnormality is seen at this time. Electronically Signed: Johnny Gilman MD at 11:24 EDT Tel [phone], Service support [phone], CC: Enrike Jaimes DO Stacker Straightener: Signed 02-Jul-2015 ELECTROCARDIOGRAM, COMPLETE (ECG) (63228) Comments: ekg showed normal sinus rhythym, normal axis, no acute st/t wave changes sinus maggie Result: [MEASUREMENTS ANALYSIS] Date of Test: 07/02/2015 10:18:39; Heart Rate: 56; UT Interval: 222; QRS: 100; QT Interval: 448; Corrected QT Interval (QTc): 441; P Wave Cowpens: 90; QRS Wave Cowpens: 6; T Wave Cowpens: 18; Blood Pressure: 156/64 [ECG DIAGNOSTIC STATEMENTS] Date of Test: 07/02/2015 10:18:39; Summary: Sinus Bradycardia -First degree A-V block Tessy = 222BORDERLINE RHYTHM 02-Jul-2015 Spirometry (99358) Comments: good effort and curve normal Result: 24-Jun-2015 Venous Duplex Lower Extremity Result: Comments: See Note; NOTES: [facility] Cardiovascular Services [address] [place] [address] Venous Duplex US - Ibrahima Extrem 06/24/15 1102 MR#: [id number] Acct: [id number] Name: LUPE LOPEZ Rep #: [id number] : 1945 70 From: Brice Murphy MD [...] Asia Rogers, RDCS, RVT 07:0 8 PM 06/24/151907 Date Brice Murphy MD CC: Enrike Jaimes DO Date Dictated: 06/24/15 1102 Date Transcribed: 06/24/151907 Stacker Straightener: Signed 20-Jun-2015 CTA Chest W/WO Contrast Result: Comments: See Note; NOTES: [facility] Imaging Services [address] [place] [address] Verdana 4d CTA Chest W/WO Contrast MR#: [id number] Acct: [id number] Name: LUPE MCCARTHY Rep #: [id number] : 1945 F 70 From: Johnny Gilman MD PCP: Enrike Jaimes DO Status: REG ER Study: CTA Chest W/WO Contrast Date of Exam: 06/20/15 Exam# [id number] Ordering Dr: Sonam Colon MD STUDY: CTA [...] Johnny Gilman MD at 15:25 EDT Tel [phone], Service support , CC: Enrike Jaimes DO; Sonam Sheth MD Stacker Straightener: Signed 20-Jun-2015 Chest 1 View (Portable) Result: Comments: See Note; NOTES: [facility] Imaging Services [address] [place] [address] Verdana 4d Chest 1 View (Portable) MR#: [id number] Acct: [id number] Name: LUPE MCCARTHY Rep #: [id number] : 1945 F 70 From: Johnny Gilman MD PCP: Enrike Jaimes DO Status: REG ER Study: Chest 1 View (Portable) Date of Exam: 06/20/15 Exam# [id number] Ordering Dr: Sonam Colon MD STUDY: X-RAY [...] Johnny Gilman MD at 13:07 EDT Tel [phone], Se rvice support [phone], RAD/Chest 1 View (Portable) IMPRESSION: Focal infiltration in the right upper lobe. Electronically Signed: Johnny Gilman MD at 13:07 EDT Tel [phone], Service support [phone], CC: Enrike Jaimes DO; Sonam Sheth MD Stacker Straightener: Signed 20-Jun-2015 ELECTROCARDIOGRAM, COMPLETE (ECG) (75759) Result: [MEASUREMENTS ANALYSIS] Date of Test: 06/20/2015 10:36:19; Heart Rate: 61; UT Interval: 216; QRS: 100; QT Interval: 426; Corrected QT Interval (QTc): 427; P Wave Cowpens: 62; QRS Wave Cowpens: 8; T Wave Cowpens: 28; Blood Pressure: 160/62 [ECG DIAGNOSTIC STATEMENTS] Date of Test: 06/20/2015 10:36:19; Summary: Sinus Rhythm WITHIN NORMAL LIMITS 15-Jun-2015 Echocardiogram Complete Result: Comments: See Note; NOTES: [facility] Cardiovascular Services [address] [place] [address] Echo Complete 06/12/15 1110 MR#: [id number] Acct: [id number] Name: LUPE PHILLIPS Rep #: [id number] : 1945 70 From: Mike Cota MD Attending Dr: Mike Cota MD Status: PRE CLI Ordering Dr: Mike Cota MD Date: 06/12/15 Location: [facility] Sex: F C Admit benjamin: Reason For Study: CAD/ASHD Procedure This was a 2D Doppler, Color Flow transthoracic echocardiogram. The exam was of adequate technical quality. Exam performed in department. PT did NOT take am HTN med, will take as soon as she gets home and monitor her BP this afternoon. Instructed to call [facility] if systolic BP does not [...] Dictated: 06/12/15 1110 Date Transcribed: 06/15/15 1226 Stacker Straightener: Signed 13-Jun-2015 History and Physical Exam Result: Comments: See Note; NOTES: [facility] Medical Records Department [address] [facility] [place] [address] History and Physical 06/13/15 1251 MR#: [id number] Acct: [id number] Name: LUPE LOPEZ Rep #: [id number] : 1945 70 From: Jess Sparrow MD [...] surgery. Psychiatric History: No pertinent psych hx REFERRAL SPECIALIST History: No pertinent REFERRAL SPECIALIST history Lives: Spouse/ Significant Other Smoking [...] % (Auto) 51.1 Lymph % (Auto) 33.9 [place] % (Auto) 11.5 H Eos % (Auto) [...] noted in checking the note before signing. 03/24/16 1300 <Electronically signed by Jess correa MD> Date Jess Sparrow MD Cosigner Signature (if applicable): Date CC: Enrike Matt DO; Jess Sparrow Signed 13-Jun-2015 Chest 1 View (Portable) Result: Comments: See Note; NOTES: [facility] Imaging Services [address] [place] [address] Verdana 4d Chest 1 View (Portable) MR#: [id number] Acct: [id number] Name: GUCCI LUPE MONSIVAIS Rep #: [id number] : 1945 F 70 From: Vu Hankins MD PCP: Enrike Jaimes DO Status: REG ER Study: Chest 1 View (Portable) Date of Exam: 06/13/15 Exam# [id number] Ordering Dr: Jessie Odgen MD STUDY: X-RAY CHEST REASON FOR EXAM: [...] MD at 10:55 EDT , Service support [phone], RAD/Chest 1 View (Port able) IMPRESSION: Cardiomegaly with mild hyperexpansion. No acute or active cardiopulmonary disease. Electronically Signed: Vu Hankins MD at 10:55 EDT , Service sup port [phone], CC: Enrike Jaimes DO; Kane Ogden MD Stacker Straightener: Signed 13-Jun-2015 CTA Chest W/WO Contrast Result: Comments: See Note; NOTES: [facility] Imaging Services [address] [place] [address] Verdana 4d CTA Chest W/WO Contrast MR#: [id number] Acct: [id number] Name: LUPE MCCARTHY Rep #: [id number] : 1945 F 70 From: Johnny Gilman MD PCP: Enrike Jaimes DO Status: REG ER Study: CTA Chest W/WO Contrast Date of Exam: 06/13/15 Exam# [id number] Ordering Dr: Kane Lujan MD STUDY: CTA [...] verbally conveyed by Johnny Gilman MD to [facility] ED RN, on 06/13/2015 12:08:48 (ET). Electronically Signed: Johnny Gilman MD at 12:08 EDT Tel [phone], Service support [phone], N.B. : The above information has been verbally conveyed by Johnny Gilman MD to [facility] ED RN, on 06/13/2015 12:08:48 (ET). CC: Debr a Fast DO; Kane Ogden MD Stacker Straightener: Signed 13-Jun-2015 EKG (24647) Comments: nsr no acute chg Result: [MEASUREMENTS ANALYSIS] Date of Test: 06/13/2015 09:41:07; Heart Rate: 71; UT Interval: 194; QRS: 96; QT Interval: 420; Corrected QT Interval (QTc): 439; P Wave Cowpens: 68; QRS Wave Cowpens: 2; T Wave Cowpens: 29; Blood Pressure: 140/70 [ECG DIAGNOSTIC STATEMENTS] Date of Test: 06/13/2015 09:41:07; Summary: Sinus Rhythm WITHIN NORMAL LIMITS 23-May-2015 Carotid Duplex Ultrasound Result: Comments: See Note; NOTES: [facility] Cardiovascular Services [address] [place] [address] Carotid Duplex Ultrasound 05/23/15 0814 MR#: [id number] Acct: [id number] Name: LUPE LOPEZ Rep #: [id number] : 1945 70 From: Brice Murphy MD Attending Dr: Enrike Jaimes DO Status: REG CLI Ordering Dr: Enrike Jaimes DO Date: 05/23/15 Location: [facility] Sex: F C Adm itted: Reason For [...] the left vertebral artery. Procedure Carotid Duplex 41002. The exam was diagnostic. Exam performed in [...] DO Date Dictated: 05/23/15813 Date Transcribed: 05/23/152329 Stacker Straightener: Signed 23-May-2015 Nuclear Stress Test - Treadmil Result: Comments: See Note; NOTES: [facility] Imaging Services [address] [place] [address] Verdana 4d Nuclear Stress Test - Treadmil MR#: [id number] Acct: [id number] N ruel: LUPE LOPEZ Rep #: [id number] : 1945 70 From: Mike Cota MD [...] LVEF of 72%. Mike Cota MD T: NTS JOB: [id number] 05/23/152009 <Electronically signed by Mike Cota MD> Date Mike Cota MD CC: Enrike Jaimes DO Date Dictated: 05/23/15 1023 Date Transcribed: 05/23/15 1023 Stacker Straightener: Signed 20-May-2015 ELECTROCARDIOGRAM, COMPLETE (ECG) (56699) Comments: ekg showed normal sinus rhythym, normal axis, no acute st/t wave changes Result: [MEASUREMENTS ANALYSIS] Date of Test: 05/20/2015 11:04:03; Heart Rate: 63; UT Interval: 210; QRS: 99; QT Interval: 408; Corrected QT Interval (QTc): 413; P Wave Cowpens: 56; QRS Wave Cowpens: 10; T Wave Cowpens: 27; Blood Pressure: 152/76 [ECG DIAGNOSTIC STATEMENTS] Date of Test: 05/20/2015 11:04:03; Summary: Sinus Rhythm WITHIN NORMAL LIMITS 11-Apr-2015 12 Lead Electrocardiogram Result: Comments: See Note; NOTES: [facility] Cardiovascular Services [address] [place] [address] 12 Lead EKG 03/28/15 1548 MR#: [id number] Acct: [id number] Name: LUPE BOOGIE Rep #: [id number] : 1945 70 From: Mike Cota MD [...] Normal ECG Confirmed by CIPRIANO JC, MIKE ([id number]), editor trade journal TERRI DIOP ([id number]) on 04/11/2015 2:14:19 PM Referred By: CHRISTOPHER Confirmed By:MIKE COTA MD 04/11/15 141 4 Date Mike Cota MD CC: Enrike Jaimes DO Date Dictated: 03/28/15 1548 Date Transcribed: 03/28/15 1548 Stacker Straightener: Signed 25-Dec-2014 Pulmonary Function Report Comp Result: Comments: See Note; NOTES: [facility] Pulmonary Services/Neurology [address] [place] [address] Pulmonary Function Test (Comp) MR#: [id number] Acct: [id number] Name: LUPE PHILLIPS Rep #: [id number] : 1945 69 From: Merlin Pop MD Referring Dr: Merlin Pop MD Status: REG CLI Ordering Dr: Merlin Pop MD Date: 11/27/14 Location: [facility] Sex: F C DATE OF SERVICE: [...] and lung volumes. MERLIN POP MD T: NTS JOB: [id number] . Date: 11/28/14 Tech.: Temp: PBar: Height(in.): Weight(lbs.): Diagnosis: Medication: : Dyspnea Rest: Dyspnea Exercise: Cough: Productive (cc): Persistent: Smoker: How Long (pk/yrs): Stopped (yrs): Cigarettes: Cigars: 1 1438 <Electronically signed by Merlin Pop MD> Date Merlin Pop MD CC: Merlin Pop MD; Enrike Jaimes DO Date Dictated: 11/03 Date Transcribed: 11/27/141628 Stacker Straightener: Signed 23-Oct-2014 PT Discharge Summary Result: Comments: See Note; NOTES: [facility] Physical Therapy [facility] [address] [place] [address] Fax REHABILITATION SERVICES DISCHARGE SUMMARY MR#: [id number] Acct: [id number] Name: LUPE LOPEZ Rep #: [id number] : 1945 69 From: Barbie Mcguire Referring [...] Sneakers. Barbie Mcguire DPT T: FERNIE JOB: [id number] <Electronically signed by Monika Mcguire > 10/23/14 1021 CC: Signed 23-Oct-2014 Chest WITH Contrast Result: Comments: See Note; NOTES: [facility] Imaging Services [address] [place] [address] CAT Scan Report MR#: [id number] Acct: [id number] Name: LUPE LOPEZ Rep #: [id number] : 1945 F 69 From: Johnny Gilman MD PCP: Enrike Jaimes DO Status: REG CLI Study: Chest WITH Contrast Date of Exam: 10/23/14 Exam# [id number] Ordering Dr: Merlin Pop MD STUDY: CT [...] Johnny Gilman MD at 14:28 EDT Tel [phone], Service support [phone], Fax CC: Merlin Pop MD; Enrike Jaimes DO Stacker Straightener: Signed 02-Oct-2014 Bilnehemias Elias Digital AND CAD Result: Comments: See Note; NOTES: [facility] Imaging Services [address] [place] [address] Breast Imaging Report MR#: [id number] Acct: [id number] Name: LUPE LOPEZ Rep #: [id number] : 1945 F 69 From: Johnny Gilman MD PCP: Enrike Jaimes DO Status: REG CLI Study: Denisse Elias Digital AND CAD Date of Exam: 10/02/14 Exam# [id number] Ordering Dr: Enrike Jaimes DO MAMMOGRAPHY - [...] [facility]. Approximately 10% of breast cancers are not detected by mammography. A normal mammogram should not delay biopsy of a clinically suspicious abnormality. Electronically Signed: Isma Gilman MD at 12:54 EDT Tel [phone], Service support [phone], CC: Enrike Jaimes DO Stacker Straightener: Signed 27-Sep-2014 Inital Evaluation - PT Result: Comments: See Note; NOTES: [facility] Physical Therapy [facility] [address] [place] [address]. [address] [place] [address] Fax REHABILITATION SERVICES INITIAL EVALUATION MR#: [id number] Acct: [id number] Name: LUPE LOPEZ Rep #: [id number] : 1945 69 From: Barbie Mcguire Referring DrBrooke: Enrike Jaimes DO Status: REG RCR Insurance: [facility] MEDICARE [facility] Date: DATE OF SERVICE: 09/26/2014 REASON FOR [...] no stent that she does see a facilities project manager. MEDICATIONS: The patient has a list if [...] fair. [facility] the following problems [...] pain. Barbie Mcguire DPT T: FERNIE JOB: [id number] <Electronically signed by Barbie Mcguire > 09/27/14 0823 CC: Signed For Medicare only, by signing this I certify the plan of care. Physicians Signature Date 14-Jun-2014 Knee 4 or More Views Result: Comments: See Note; NOTES: [facility] Imaging Services [address] [place] [address] Radiology Report MR#: [id number] Acct: [id number] Name: LUPE LOPEZ Rep #: [id number] : 1945 F 69 From: Frank [place] MD PCP: Enrike Jaimes DO Status: REG CLI Study: Knee 4 or More Views Date of Exam: 06/14/14 Exam# [id number] Ordering Dr: Enrike Jaimes DO STUDY: X-R [...] at 7:48 EDT Tel , Service support [phone], CC: Enrike Jaimes DO Stacker Straightener: Signed 14-Jun-2014 Knee 4 or More Views Result: Comments: See Note; NOTES: [facility] Imaging Services [address] [place] [address] Radiology Report MR#: [id number] Acct: [id number] Name: LUPE LOPEZ Rep #: [id number] : 1945 F 69 From: Frank [place] MD PCP: Enrike Jaimes DO Status: REG CLI Study: Knee 4 or More Views Date of Exam: 06/14/14 Exam# [id number] Ordering Dr: Enrike Jaimes DO STUDY: X-R [...] at 7:50 EDT Tel , Service support [phone], RAD/Knee 4 or More Views IMPRESSION: Mild relative narrowing of the medial co mpartment joint space left knee. Generalized osteopenia. Electronically Signed: Ming [place] MD at 7:50 EDT Tel , Service support [phone], CC: Enrike Jaimes DO Stacker Straightener: Signed 16-May-2014 Carotid Duplex Ultrasound Result: Comments: See Note; NOTES: [facility] Cardiovascular Services [address] [place] [address] 05/03/14 1014 MR#: [id number] Acct: [id number] Name: LUPE LOPEZ Rep #: [id number] : 1945 69 From: Brice Murphy MD Attending Dr: Enrike Jaimes DO Status: REG CLI Ordering Dr: Date: 05/16/14 Location: [facility] Sex: F C Admitted: Rt. Velocities/BP Lt. [...] left ve rtebral artery. Procedure Carotid Duplex 60154. The exam was diagnostic. Exam performed in department. Interpretation Summary Mild (<50%) stenosis right extracranial internal carotid. Mild (<50%) stenosis left extracranial internal carotid. Flow within the vertebral arteries is antegrade bilaterally. ___ Ordering Physician: Enrike Jaimes D.O. Performed By: Rufino Ashley, RVT 05/03/14 1107 Date ____ Brice Murphy MD CC: Enrike Jaimes DO Date Dictated: 05/03/14 1014 Date Transcribed: 05/03/14 1107 Stacker Straightener: Signed 23-Apr-2014 Spirometry (09180) Comments: good effort and curve normal Result: 17-Apr-2014 Brain/Head W/WO Contrast Result: Comments: See Note; NOTES: [facility] Imaging Services [address] [place] [address] CAT Scan Report MR#: [id number] Acct: [id number] Name: LUPE LOPEZ Rep #: [id number] : 1945 F 69 From: Johnny Gilman MD PCP: Enrike Jaimes DO Status: REG CLI Study: Brain/Head W/WO Contrast Date of Exam: 04/17/14 Exam# [id number] Ordering Dr: Enrike Jaimes DO STUDY: CT [...] Johnny Gilman MD at 15:01 EST Tel [phone], Service support [phone], CC: Enrike Jaimes DO Stacker Straightener: Signed 17-Apr-2014 CTA Chest W/WO Contrast Result: Comments: See Note; NOTES: [facility] Imaging Services [address] [place] [address] CAT Scan Report MR#: [id number] Acct: [id number] Name: LUPE LOPEZ Rep #: [id number] : 1945 F 69 From: Johnny Gilman MD PCP: Enrike Jaimes DO Status: REG CLI Study: CTA Chest W/WO Contrast Date of Exam: 04/17/14 Exam# [id number] Ordering Dr: Enrike Jaimes DO STUDY: C [...] Johnny Gilman MD at 14:38 EST Tel [phone], Service support [phone], CC: Enrike Jaimes DO Stacker Straightener: Signed Immunization Name Dates Details Influenza, preserv. 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 [address] [place], [address] Absolute Lymph 1.23 {X10_3/ul} (Normal) Range: 0.83-4.51 [...] 4.2-5.4 WBC 3.4 K/mm3 (Abnormal) Range: 4.4-11.0 93-Xrc-464426:07 Comprehensive Metabolic Profil Comments: Reason for Laboratory Test .[facility] [address] [place], [place], [address] GAP 7 (Normal) Range: 5-15 CO2 29.0 [...] Please note revised GLUCOSE reference range /02/2018. 38-Fjv-743649:07 Ferritin Comments: Reason for Laboratory Test .[facility] [address] [place], [address] FERRITIN 26 ng/mL (Normal) Range: 8-252 35-Jxc-677378:07 Iron+Iron Binding Capacity Comments: Reason for Laboratory Test .[facility] [address] [place], [place], [address] IRON SATURATION 17.0 % (Normal) Range: 15.0-55.0 IRON 56 ug/dL (Normal) Range: 50-170 TIBC 329 ug/dL (Normal) Range: 250-450 22-Qhg-267760:47 CBC W/Diff, Automated Comments: [facility] [address] [place], [place], [address] Absolute Lymph 1.23 {X10_3/ul} (Normal) Range: 0.83-4.51 [...] 4.2-5.4 WBC 4.8 K/mm3 (Normal) Range: 4.4-11.0 23-Udm-954264:47 Comprehensive Metabolic Profil Comments: [facility] [address] [place], [place], [address] GAP 9 (Normal) Range: 5-15 CO2 25.0 [...] Comments: Please note revised GLUCOSE reference range nxamfloar72/02/2018. 28-Nhv-383187:47 Hemoglobin A1c Comments: [facility] [address] [place], [place], [address] HGB A1C 5.5 % (Normal) Range: 4.2-6.3 16-Ezu-658738:47 Lipid Profile Comments: [facility] [address] [place], [place], [address] VLDL 18 mg/dL (Normal) Range: 5-40 LDL [...] 200-240 mg/dL Borderline >240 mg/dL High Risk 34-Zan-755562:47 Thyroid Stim Hormone (TSH) Comments: [facility] [address] [place], [place], [address] TSH 4.65 {uIU/mL} (Abnormal) Range: 0.358-3.74 07-Lth-417201:32 Thyroid Stim Hormone (TSH) Comments: [facility] [address] [place], [address] TSH 2.85 {uIU/mL} (Normal) Range: 0.358-3.74 44-Vrb-78326:27 Microscopic Examination Comments: PATIENT WAS FASTINGPERFORMED BY: CHAN [facility] Jvphso[address] [facility] [id number] Bacteria Few (Normal) Mucus Threads Present (Normal) Cast Type Hyaline casts (Normal) Casts Present {/lpf} (Abnormal) Epithelial Cells (non renal) 0-10 {/hpf} (Normal) Range: 0 - 10 RBC 0-2 {/hpf} (Normal) Range: 0 - 2 WBC 0-5 {/hpf} (Normal) Range: 0 - 5 20-Jul-20178:49 CBC W/Diff, Automated Comments: Reason for Laboratory [facility] [address] [place], [address] Absolute Lymph 1.48 {X10_3/ul} (Normal) [...] Metabolic Profil Comments: Reason for Laboratory Test [facility] [address] [place], [place], [address] GAP 5 (Normal) Range: 5-15 CO2 31.0 [...] Comments: Please note revised GLUCOSE reference range odhcqqndi72/02/2018. 20-Jul-20178:49 Ferritin Comments: Reason for Laboratory Test [facility] [address] [place], [address] FERRITIN 29 ng/mL (Normal) Range: 8-252 :49 Iron Comments: Reason for Laboratory Test [facility]IAM[facility] [address] [place], [address] IRON 55 ug/dL (Normal) Range: 50-170 :32 Lipid Profile Comments: [facility] [address] [place], [address] VLDL 18 mg/dL (Normal) Range: 5-40 LDL [...] mg/dL High Risk :32 Liver Profile Comments: [facility] [address] [place], [address] D BILI 0.09 mg/dL (Normal) Range: 0.00-0.30 T BILI 0.50 mg/dL (Normal) Range: 0.20-1.00 ALT 14 U/L (Normal) Range: 13-56 ALK P 55 U/L (Normal) Range: 45-117 AST 19 U/L (Normal) Range: 15-37 GLOB 3.0 g/dL (Normal) Range: 2.2-4.2 ALB 3.7 g/dL (Normal) Range: 3.2-5.0 T PROT 6.7 g/dL (Normal) Range: 6.4-8.2 :32 Thyroid Stim Hormone (TSH) Comments: [facility] [address] [place], [address] TSH 5.71 {uIU/mL} (Abnormal) Range: 0.358-3.74 :27 SED RATE ERYTHROCYTE (54545) Comments: PATIENT WAS FASTINGPERFORMED BY: [facility] Xqpjfm7477 [facility] [id number] Sedimentation Rate-Westergren 8 mm/h (Normal) Range: 0-40 :27 C-REACTIVE PROTEIN (96873) Comments: PATIENT WAS FASTINGPERFORMED BY: [facility] Imxfmt1180 [facility] [id number] C-Reactive Protein, Quant 0.6 mg/L (Normal) Range: 0.0-4.9 :27 FOLIC ACID SERUM (93742) Comments: PATIENT WAS FASTINGPERFORMED BY: [facility] Qjsyqn1510 [facility] [id number] Folate (Folic Acid), Serum >20.0 ng/mL (Normal) Comments: A serum folate concentration of less than 3.1 ng/mL isconsidered to represent clinical deficiency. :27 VITAMIN B-12 (CYANOCOBALAMIN) Comments: PATIENT WAS FASTINGPERFORMED BY: [facility] Aojsha5194 [facility] [id number] (25172) Vitamin B12 681 pg/mL (Normal) Range: 232-1245 :27 TSH (THYROID STIMULATING Comments: PATIENT WAS FASTINGPERFORMED BY: NICO [facility] Ottmil8304 [facility] [id number] HORMONE) (25735) TSH 6.650 {uIU/mL} (Abnormal) Range: 0.450-4.500 :27 LIPID PANEL (35268) Comments: PATIENT WAS FASTINGPERFORMED BY: [facility] Wodkda0817 [facility] [id number] LDL/HDL Ratio 1.4 {ratio} (Normal) Range: 0.0-3.2 [...] mg/dL (Normal) Range: 100-199 :27 HGB A1C (89838) Comments: PATIENT WAS FASTINGPERFORMED BY: Cartour [facility] [id number] Hemoglobin A1c 5.6 % (Normal) Range: 4.8-5.6 Comments: . Pre-diabetes: 5.7 - 6.4 Diabetes: >6.4 Glycemic control for adults with diabetes: <7.0 :27 serum free light chains Comments: PATIENT WAS FASTINGPERFORMED BY: Tapiture70 [facility] [id number] (68174) Captree/Lambda Ratio,S 1.18 (Normal) Range: 0.26-1.65 Free Lambda Lt Chains,S 19.1 mg/L (Normal) Range: 5.7-26.3 Free Captree Lt Chains,S 22.5 mg/L (Abnormal) Range: 3.3-19.4 :27 urine immunofixation (68828) Comments: PATIENT WAS FASTINGPERFORMED BY: lifeIO6370 [facility] [id number] THEE Interpretation:U UPEIP (Normal) Comments: No monoclonality detected. :27 serum immunofixation (04003) Comments: PATIENT WAS FASTINGPERFORMED BY: sharing.[email or web address] [facility] [id number] Immunoglobulin M, Qn, Serum 68 mg/dL (Normal) Range: 26-217 Immunoglobulin A, Qn, Serum 111 mg/dL (Normal) Range: 64-422 Immunoglobulin G, Qn, Serum 669 mg/dL (Abnormal) Range: 700-1600 Immunofixation Result, Serum UPEIP (Normal) Comments: No monoclonality detected. :27 URINALYSIS, W/ MICRO (67783) Comments: PATIENT WAS FASTINGPERFORMED BY: Tapiture70 [facility] [id number] Microscopic Examination See below: (Normal) Comments: Microscopic was indicated and was performed. Microscopic Examination MICRON (Normal) Comments: Microscopic follows if indicated. Nitrite, Urine Negative (Normal) Urobilinogen,Semi-Qn 0.2 mg/dL (Normal) Range: 0.2-1.0 Bilirubin Negative (Normal) Occult Blood Negative (Normal) Ketones Negative (Normal) Glucose Negative (Normal) Protein Negative (Normal) WBC Esterase Negative (Normal) Appearance Clear (Normal) Urine-Color Yellow (Normal) pH 6.0 (Normal) Range: 5.0-7.5 Specific Marion 1.019 (Normal) Range: 1.005-1.030 :27 METABOLIC PANEL, COMPREHENSIVE Comments: PATIENT WAS FASTINGPERFORMED BY: [email or web address].[email or web address] [facility] [id number] (75506) ALT (SGPT) 12 [iU]/L (Normal) Range: 0-32 [...] 8-27 Glucose 91 mg/dL (Normal) Range: 65-99 7-Cqa-212047:14 CBC W/Diff, Automated Comments: Reason for Laboratory Test .[facility] [address] [place], [place], [address] Absolute Lymph 0.91 {X10_3/ul} (Normal) Range: 0.83-4.51 [...] 4.2-5.4 WBC 5.1 K/mm3 (Normal) Range: 4.4-11.0 4-Avy-217810:14 Comprehensive Metabolic Profil Comments: Reason for Laboratory Test .Is Patient Taking Vitamins or Folic Acid Supplements? [facility] [address] [place], [address] GAP 7 (Normal) Range: 5-15 CO2 30.0 [...] 7-18 GLU 100 mg/dL (Normal) Range: 70-110 7-Rtj-745138:14 Ferritin Comments: Reason for Laboratory Test .Is Patient Taking Vitamins or Folic Acid Supplements? [facility] [address] [place], [address] FERRITIN 42 ng/mL (Normal) Range: 8-252 8-Ohp-310039:14 Folates, (Folic Acid) Comments: Reason for Laboratory Test .Is Patient Taking Vitamins or Folic Acid Supplements? [facility] [address] [place], [address] FOLATES 82.80 ng/mL (Abnormal) Range: 3.1-55.4 Comments: Please note revised Folates reference range bbmibkqgz28/14/2017. 0-Kwh-056780:14 Iron+Iron Binding Capacity Comments: Reason for Laboratory Test .Is Patient Taking Vitamins or Folic Acid Supplements? [facility] [address] [place], [address] IRON SATURATION 10.7 % (Abnormal) Range: 15.0-55.0 IRON 36 ug/dL (Abnormal) Range: 50-170 TIBC 335 ug/dL (Normal) Range: 250-450 3-Gyv-370230:14 Vitamin B12 > 2000 pg/mL (Abnormal) Comments: Reason for Laboratory Test .[facility] [address] [place], [address] Range: 211-911 02-Drn-939145:06 Stool Occult Blood iFOB Comments: [address] [place], [address] STOB See Note (Normal) Comments: Reason for Laboratory Test . STOB iFOBOccult Blood Negative 81-Aso-44916:18 CBC W/Diff, Automated Comments: [facility] [address] [place], [address] Absolute Lymph 1.31 {X10_3/ul} (Normal) Range: 0.83-4.51 [...] 4.2-5.4 WBC 3.4 K/mm3 (Abnormal) Range: 4.4-11.0 89-Smi-65643:18 Comprehensive Metabolic Profil Comments: Is Patient Taking Vitamins or Folic Acid Supplements? [facility] [address] [place], [place], [address] GAP 7 (Normal) Range: 5-15 CO2 28.0 [...] Patient Taking Vitamins or Folic Acid Supplements? [facility] [address] [place], [address] FERRITIN 16 ng/mL (Normal) Range: 8-252 :18 Folates, (Folic Acid) Comments: Is Patient Taking Vitamins or Folic Acid Supplements? [facility] [address] [place], [address] FOLATES 67.80 ng/mL (Abnormal) Range: 3.1-17.5 :18 Iron+Iron Binding Capacity Comments: Is Patient Taking Vitamins or Folic Acid Supplements? [facility] [address] [place], [address] IRON SATURATION 11.2 % (Abnormal) Range: 15.0-55.0 IRON 41 ug/dL (Abnormal) Range: 50-170 TIBC 367 ug/dL (Normal) Range: 250-450 :18 Vitamin B12 1297 pg/mL (Abnormal) Comments: [facility] [address] [place], [address] Range: 211-911 83-Tyn-662953:09 Urinalysis, Office (99729) UA - LEUKOCYTE ESTERASE Negative (Normal) UA - NITRITE Negative (Normal) URINE UROBILINGN DIPAK TIMED 2 mg/dL (Normal) UA - PROTEIN Negative mg/dL (Normal) UA - PH 6.0 (Normal) UA - BLOOD Hemolyzed Trace (Normal) UA - SPECIFIC GRAVITY 1.015 (Normal) UA - KETONES Negative mg/dL (Normal) UA - BILIRUBIN Negative (Normal) UA - GLUCOSE Negative (Normal) :09 Blood Glucose , Office (50355) Blood Glucose , Office 91 (Normal) :09 HgA1C , Office (12438) HgA1C , Office 5.3 % (Normal) Range: 4.6 - 7.1 :01 CBC W/Diff, Automated Comments: [facility] [address] [place], [place], [address] Absolute Lymph 0.96 {X10_3/ul} (Normal) Range: 0.83-4.51 [...] Range: 4.4-11.0 :01 Comprehensive Metabolic Profil Comments: [facility] [address] [place], [place], [address] GAP 12 (Normal) Range: 5-15 CO2 24.0 [...] (Normal) Range: 70-110 :01 Hemoglobin A1c Comments: [facility] [address] [place], [place], [address] HGB A1C 5.3 % (Normal) Range: 4.2-6.3 :01 THEE + Protein Elect, Serum Comments: Is Patient Fasting? [facility] (refer to report for specific site)refer to report for address and phone number NOTE: Comment (Normal) Comments: Protein electrophoresis scan will follow via computer,mail, or it project coordinator delivery. THEE RESULT,S Comment (Normal) Comments: No monoclonality detected. A/G RATIO 1.2 (Normal) Range: 0.7-1.7 GLOBULIN, TOTAL 3.1 g/dL (Normal) Range: 2.2-3.9 M-SPIKE g/dL (Normal) Comments: Not Observed GAMMA GLOBULIN 0.7 g/dL (Normal) Range: 0.4-1.8 BETA GLOBULIN 0.9 g/dL (Normal) Range: 0.7-1.3 JFCPB-9-VURR 1.0 g/dL (Normal) Range: 0.4-1.0 MLZJU-6-DDXX 0.5 g/dL (Abnormal) Range: 0.0-0.4 ALBUMIN 3.6 [...] Comment (Normal) Comments: No monoclonality detected.Performed at: - [facility] [id number] Director: Samm Galvan PhD, Phone: [phone] Lipid Profile Comments: [facility] [address] [place], [address] VLDL 19 mg/dL (Normal) Range: [...] Risk :01 Thyroid Stim Hormone (TSH) Comments: [facility] [address] [place], [address] TSH 4.87 {uIU/mL} (Abnormal) Range: 0.358-3.74 :01 Vitamin D,25 Hydroxy Comments: [facility] [address] [place], [address] Vitamin D 25-OH 27.3 ng/mL (Normal) Comments: Vitamin D 25(OH) Status Range Deficiency <20 ng/mL (50nmol/L) Insuffciency 20 - 30 ng/mL (50 - 75 nmol/L) Sufficiency 30 - 100 ng/mL (75 - 250 nmol/L) Toxicity >100 ng/mL (>250 nmol/L) :54 CBC W/Diff, Automated Comments: [facility] [address] [place], [address] Absolute Lymph 1.70 {X10_3/ul} (Normal) Range: 0.83-4.51 [...] Serial specimen #1, #2, #3, or #4: 1[facility] [address]gm59[address] [place], [place], [address] GAP 8 (Normal) Range: 5-15 CO2 25.0 [...] (Normal) Range: 70-110 :54 Hemoglobin A1c Comments: [facility] [address] [place], [place], [address] HGB A1C 5.9 % (Normal) Range: 4.2-6.3 :54 Lipid Profile Comments: 'TROP' Serial specimen #1, #2, #3, or #4: [address] [place] [address] [place], [place], [address] VLDL 31 mg/dL (Normal) Range: 5-40 LDL [...] Serial specimen #1, #2, #3, or #4: [address] [place] [address] [place], [place], [address] TSH 4.73 {uIU/mL} (Abnormal) Range: 0.358-3.74 :54 Troponin-I Comments: 'TROP' Serial specimen #1, #2, #3, or #4: [address] [place] [address] [address] [place], [place], [address] TROPONIN-I < 0.02 ng/mL (Normal) Comments: TROPONIN-I EXPECTED VALUES <0.05 NEGATIVE 0.06 - 0.59 AT RISK OF TN > OR = 0.60 SUGGEST TN 22-Cke-827725:51 CBC W/Diff, Auto - EPLAB Comments: Order Date: 01/01/16Order Info: [id number] - *CBC w/Diff - oncology ONLYComments: DRAW AND HOLD SERUM TUBEOrder Date: 01/01/16Order Info: 0184-1E - *CBC w/Diff - oncology ONLYComments: DRAW AND HOLD SERUM Only TUBEAt [facility] Medical Oncologypatients receive CBC w/auto Differential ONLY. Physicianwill place an order for a manual differential or Pathologistreview at his discretion. [facility]. [address] [place] [address] [place] [address] SKIDWAY WORKER: JOSE KOHLI DO PH:[phone] Date: 01/01/16Order Info: 0453-1 - *MISC - Miscellaneous Lab Test #1Comments: Test(s) Ordered by Physician:[facility] [address] [place], [place], [address] Absolute Lymph 1.39 {X10_3/uL} (Normal) Range: 0.83-4.51 [...] 4.2-5.4 WBC 4.7 K/mm3 (Normal) Range: 4.4-11.0 10-Qpx-539575:51 Comprehensive Metabolic Comments: Order Date: 01/01/16Order Info: 0786-1 - *CMP Complete Metabolic PanelOrder Info: 3084-1 - *Uric Acid BloodOrder Info: 2500-7 - *TIBCOrder Info: 6008-4 - *IronOrder Info: 2276-4 - *FerritinComments: [place] Profil son:Order Info: 2532-0 - *LDH -LDH (Lactate Dehydrogenase)Order Date: 01/01/16Order Info: 0453-1 - *MISC - Miscellaneous Lab Test #1Comments: Test(s) Ordered by Physician:FOLATESSerial Specimen #1, # 2 or #3? 1Is Patient Taking Vitamins or Folic Acid Supplements? [facility] [address]zk[address] [place], [place], [address] GAP 2 (Abnormal) Range: 5-15 CO2 29.0 [...] 7-18 GLU 89 mg/dL (Normal) Range: 70-110 03-Ttd-134620:51 Ferritin Comments: Order Date: 01/01/16Order Info: 0786-1 [...] Patient Taking Vitamins or Folic Acid Supplements? [facility] [address] [place], [place], [address] FERRITIN 14 ng/mL (Normal) Range: 8-252 60-Lxk-444011:51 Folates, (Folic Acid) Comments: Order Date: 01/01/16Order [...] Patient Taking Vitamins or Folic Acid Supplements? [facility] [address] [place], [address] FOLATES 72.40 ng/mL (Abnormal) Range: 3.1-17.5 74-Usb-985259:51 Iron Comments: Order Date: 01/01/16Order Info: 0786-1 [...] Patient Taking Vitamins or Folic Acid Supplements? [facility] [address] [place], [address] IRON 40 ug/dL (Abnormal) Range: 50-170 69-Acl-801390:51 Iron Binding Capacity,Total Comments: Order Date: 01/01/16Order Info: 0786-1 - *CMP Complete Metabolic PanelOrder Info: 308-1 - *Uric Acid BloodOrder Info: 2500-7 - *TIBCOrder Info: 2498-4 - *IronOrder Info: 2276-4 - *FerritinComments: Ashlyn son:Order Info: 2532-0 - *LDH -LDH (Lactate Dehydrogenase)Order Date: 01/01/16Order Info: 3-1 - *MISC - Miscellaneous Lab Test #1Comments: Test(s) Ordered by Physician:FOLATESSerial Specimen #1, # 2 or #3? 1Is Patient Taking Vitamins or Folic Acid Supplements? [facility] [address] [place], [address]) TIBC 354 ug/dL (Normal) Range: 250-450 :51 LDH 199 U/L (Normal) Comments: Order Date: [...] Patient Taking Vitamins or Folic Acid Supplements? [facility] [address] [place], [place], [address] Range: 84-246 60-Rfv-697972:51 Uric Acid Comments: Order Date: 01/01/16Order Info: [...] Patient Taking Vitamins or Folic Acid Supplements? [facility] [address] [place], [place], [address] URIC 3.9 mg/dL (Normal) Range: 2.6-6.0 Comments: The drugs N-Acetylcysteine and Metamizole may falsely deressthis assay. 60-Efl-804853:51 Vitamin B12 809 pg/mL (Normal) Comments: Order Date: 01/01/16Order Info: 2132-9 - *B-12Order Date: 01/01/16Order Info: 0453-1 - *MISC - Miscellaneous Lab Test [facility] [address]ru[address] [place], [address] Range: 211-911 73-Psw-645361:41 D-Dimer Quantitative (DVT/PE) Comments: Order Date: 06/15/16Order Info: [id number] - *DDIMQ - Fibrin Degrd Ultrsens Qual/SemiquanOrder Date: 06/15/16Order Info: [id number] - *DDIMQ - Fibrin Degrd Ultrsens Qual/SemiquanWAv[facility] [address] [place], [address] D-DIMER QUANT 0.28 {FEU/ug/m} (Normal) Range: 0.27-0.49 Comments: NORMAL D-Dimer level (<0.50) indicates no DVT or PE. 6-Axq-848950:15 Thyroxine (T4) Free, Direct, S Comments: PATIENT NOT FASTINGPERFORMED BY: [employer] Lbzars3609 [facility] [id number] T4,Free(Direct) 1.22 ng/dL Range: 0.82-1.77 (Normal) Triiodothyronine,Free,Seru 2.2 pg/mL (Normal) Comments: PATIENT NOT FASTINGPERFORMED BY: [facility] Zxvpzq5478 [facility] [id number] 4:15 m Range: 2.0-4.4 Written Authorization WAR (Normal) Comments: PATIENT NOT FASTINGPERFORMED BY: [facility] Jupadk9159 [facility] [id number] 4:15 Comments: Written Authorization Received.Authorization received from MAO BENITEZ [id number] by Jyothi Boland 6-Ijm-473646:15 SPEP (40361) Comments: PATIENT NOT FASTINGPERFORMED BY: Cardinal HealthCoRobert Wood Johnson University HospitalBrxszq2165 [facility] [id number] Please note: SPRCS (Normal) Comments: Protein electrophoresis scan will follow via computer, mail, orcourier delivery. A/G Ratio 1.3 (Normal) Range: 0.7-1.7 Globulin, Total 2.8 g/dL (Normal) Range: 2.2-3.9 M-Abhinav Not Observed g/dL (Normal) Gamma Globulin 0.8 g/dL (Normal) Range: 0.4-1.8 Beta Globulin 0.8 g/dL (Normal) Range: 0.7-1.3 Ohmrd-6-Onnasvnl 0.9 g/dL (Normal) Range: 0.4-1.0 Vlbbz-2-Frdcomjt 0.2 g/dL (Normal) Range: 0.0-0.4 Albumin 3.6 g/dL (Normal) Range: 2.9-4.4 Protein, Total, Serum 6.4 g/dL (Normal) Range: 6.0-8.5 2-Wii-042380:15 UPEP (09845) Comments: PATIENT NOT FASTINGPERFORMED BY: [employer]70 [facility] [id number] Please note: SPRCS (Normal) Comments: Protein electrophoresis scan will follow via computer, mail, orcourier delivery. M-Abhinav, % Not Observed % (Normal) Gamma Globulin, U 39.7 % (Normal) Beta Globulin, U 30.6 % (Normal) Hoslb-3-Aqdyexed, U 6.8 % (Normal) Mahrr-3-Nbctdivz, U 2.0 % (Normal) Albumin, U 21.0 % (Normal) Protein,Total,Urine 4.5 mg/dL (Normal) 9-Jtx-580658:15 TSH (64057) Comments: PATIENT NOT FASTINGPERFORMED BY: [employer] Enpswh1842 [facility] [id number] TSH 7.400 {uIU/mL} (Abnormal) Range: 0.450-4.500 4-Uvu-680398:15 CBC WITH MANUAL DIFF (10140) Comments: PATIENT NOT FASTINGPERFORMED BY: [employer] Ycuxbh6673 [facility] [id number] Immature Grans (Abs) 0.0 {x10E3/uL} (Normal) Range: [...] 3.77-5.28 WBC 4.5 {x10E3/uL} (Normal) Range: 3.4-10.8 0-Shg-823133:15 RETICULOCYTE COUNT (13552) Comments: PATIENT NOT FASTINGPERFORMED BY: REGiMMUNE CorporationRobert Wood Johnson University HospitalCychak9816 [facility] [id number] Reticulocyte Count 1.0 % (Normal) Range: 0.6-2.6 6-Nfd-514930:15 LDH (LD) (LACTATE DEHYDROGENASE) Comments: PATIENT NOT FASTINGPERFORMED BY: REGiMMUNE CorporationRobert Wood Johnson University HospitalXlyhts5411 [facility] [id number] (21765) LDH 185 [iU]/L (Normal) Range: 119-226 7-Kjv-005620:15 Iron Binding Capacity (TIBC) Comments: PATIENT NOT FASTINGPERFORMED BY: REGiMMUNE CorporationRobert Wood Johnson University HospitalWqqdrs6453 [facility] [id number] (15064) Iron Saturation 16 % (Normal) Range: 15-55 Iron, Serum 55 ug/dL (Normal) Range: 27-139 UIBC 281 ug/dL (Normal) Range: 118-369 Iron Bind.Cap.(TIBC) 336 ug/dL (Normal) Range: 250-450 1-Kki-665612:15 Vitamin B-12 (cyanocobalamin) Comments: PATIENT NOT FASTINGPERFORMED BY: LabCoRobert Wood Johnson University HospitalCineow5679 [facility] [id number] (82553) Vitamin B12 979 pg/mL (Abnormal) Range: 211-946 4-Obq-314661:15 Folic Acid Serum (41760) Comments: PATIENT NOT FASTINGPERFORMED BY: LabCoRobert Wood Johnson University HospitalYvtlzw7056 [facility] [id number] Folate (Folic Acid), Serum >20.0 ng/mL (Normal) Comments: A serum folate concentration of less than 3.1 ng/mL isconsidered to represent clinical deficiency. 5-Vpt-907342:15 Ferritin (99614) Comments: PATIENT NOT FASTINGPERFORMED BY: [facility] Ooaink7522 [facility] [id number] Ferritin, Serum 30 ng/mL (Normal) Range: 15-150 14-Gea-215031:05 CBC W/Diff, Automated Comments: [facility] [address]jnxbvz[address] [place], [address] Absolute Lymph 1.49 {X10_3/ul} (Normal) Range: 0.83-4.51 [...] 4.2-5.4 WBC 4.6 K/mm3 (Normal) Range: 4.4-11.0 48-Fgy-700756:05 Comprehensive Metabolic Profil Comments: [facility] [address]feudsw[address] [place], [place], [address] GAP 8 (Normal) Range: 5-15 CO2 28.0 [...] 7-18 GLU 86 mg/dL (Normal) Range: 70-110 45-Ssu-188167:05 Hemoglobin A1c Comments: [facility] [address] [place], [address] HGB A1C 5.2 % (Normal) Range: 4.2-6.3 63-Bad-586037:05 Lipid Profile Comments: [facility] [address] [place], [address] VLDL 22 mg/dL (Normal) Range: 5-40 [...] 200-240 mg/dL Borderline >240 mg/dL High Risk 99-Pee-213700:05 Microalb:Creat Ratio,Random UR Comments: [facility] [address]yvxk[address] [place], [address] MALB:CREAT 5.0 {mg/g_CRE} (Normal) MICROALBUMIN,UR 7.2 mg/L (Normal) UR CREAT 144.00 mg/dL (Normal) 36-Vcg-150538:05 Vitamin D,25 Hydroxy Comments: [facility] [address]qbcbdds[address] [place], [address] Vitamin D 25-OH 40.3 ng/mL (Normal) Comments: Vitamin D 25(OH) Status Range Deficiency <20 ng/mL (50nmol/L) Insuffciency 20 - 30 ng/mL (50 - 75 nmol/L) Sufficiency 30 - 100 ng/mL (75 - 250 nmol/L) Toxicity >100 ng/mL (>250 nmol/L) 38-Cii-38990:27 CBC with auto diff (97438) Comments: PATIENT WAS FASTINGPERFORMED BY: [facility]6370 [facility] [id number] Immature Grans (Abs) 0.0 {x10E3/uL} (Normal) Range: [...] 3.77-5.28 WBC 3.3 {x10E3/uL} (Abnormal) Range: 3.4-10.8 26-Frk-750168:35 MAGNESIUM (45013) Comments: PATIENT NOT FASTINGPERFORMED BY: LabCoRobert Wood Johnson University HospitalVnqfzp8006 [facility] [id number] Magnesium, Serum 1.8 mg/dL (Normal) Range: 1.6-2.3 33-Tlv-348496:35 POTASSIUM SERUM (97936) Comments: PATIENT NOT FASTINGPERFORMED BY: [facility] Nvowya7943 [facility] [id number] Potassium, Serum 4.5 mmol/L (Normal) Range: 3.5-5.2 38-Nda-35210:00 CBC W/Diff, Automated Comments: [facility] [address]pr[address] [place], [place], [address] Absolute Lymph 0.91 {X10_3/ul} (Normal) Range: 0.83-4.51 [...] 4.2-5.4 WBC 3.5 K/mm3 (Abnormal) Range: 4.4-11.0 56-Ssf-50518:00 Comprehensive Metabolic Profil Comments: [facility] [address]cb[address]ohl[address] [place], [place], [address] GAP 8 (Normal) Range: 5-15 CO2 31.0 [...] 7-18 GLU 75 mg/dL (Normal) Range: 70-110 43-Jyd-44773:00 Erythrocyte Sed Rate Comments: [facility] [address]juxd[address] [place], [place], [address] SED RATE 21 mm/h (Normal) Range: 0-30 3-Meo-163038:37 CBC W/Diff, Automated Comments: [facility] [address] [place], [address] Absolute Lymph 1.96 {X10_3/ul} (Normal) Range: 0.83-4.51 [...] 4.4-11.0 :37 Thyroid Stim Hormone (TSH) Comments: [facility] [address] [place], [address] TSH 4.43 {uIU/mL} (Abnormal) Range: 0.358-3.74 :37 Vitamin B12 969 pg/mL (Abnormal) Comments: [facility] [address] [place], [address] Range: 211-911 :00 CBC W/ Manual Differential Comments: [facility] [address]fuyqlvesf[address] [place], [address] RED CELL MORPH NORM C+C [...] 4.2-5.4 WBC 4.5 K/mm3 (Normal) Range: 4.4-11.0 :00 Comprehensive Metabolic Profil Comments: ADD ON TSHHas Patient had X-rays with Contrast this admission? NIs Patient on Heparin? [facility] [address]qtzmltti[address] [place], [place], [address] GAP 7 (Normal) Range: 5-15 CO2 30.0 [...] Contrast this admission? NIs Patient on Heparin? [facility] Qsdqduzsvu1400 [facility]. [place], [place], [address] FREE T3 2.1 pg/mL (Abnormal) Range: 2.18-3.98 :00 T4 Free Direct Comments: ADD ON TSHHas Patient had X-rays with Contrast this admission? NIs Patient on Heparin? [facility] W[address]kxlkuqe101[address] [place], [address] T4 FREE DIRECT 1.30 ng/dL (Normal) Range: 0.76-1.46 :00 Thyroid Peroxidase AB Comments: [facility] (refer to report for specific site)refer to report for address and phone number TPO AB [phone] {IU/mL} (Normal) Range: 0-34 Comments: Performed at: [address] [id number] Director: Samm Galvan PhD, Phone: [phone] Thyroid Stim Hormone (TSH) Comments: ADD ON TSHHas Patient had X-rays with Contrast this admission? NIs Patient on Heparin? [facility] Kfzdbgrjeq4303 [facility]. [place], [place], [address] TSH 5.27 {uIU/mL} (Abnormal) Range: 0.358-3.74 30-Pbc-057804:38 CBC W/Diff, Auto - EPLAB Comments: At [facility] [place] [facility] Medical Oncologypatients receive CBC w/auto Differential ONLY. Physicianwill place an order for a manual differential or Pathologistreview at his discretion. [facility]. [address] [place] [address] [address] SKIDWAY WORKER: JOSE KOHLI DO PH:[phone] Health [address] [address]hpj[address] [place], [address] Absolute Lymph 1.55 {X10_3/uL} (Normal) Range: 0.83-4.51 [...] 4.2-5.4 WBC 5.4 K/mm3 (Normal) Range: 4.4-11.0 66-Uxy-856811:19 Pathology Report Comments: PERFORMED BY: KWCYT [facility] [place] Cyto Bbpyv57775 [facility] [id number] BY: [facility] Dermatopathology Zvxsuwb596 [facility] 3AW[facility] [id number] Information: [id number] See MATER Comments: Material submitted: .PUNCH BIOPSY [...] THE SPECIMEN IS SUBMITTEDIN CASSETTE(S) A./CORCOR/CORPathologist provided ICD-10:D04.62T .[id number] 70-Dhf-972090:15 HgA1C , Office (24830) HgA1C , Office 5.7 % (Normal) Range: 4.6 - 7.1 60-Nrv-878983:13 CBC W/Diff, Automated Comments: [facility] [address]ex[address], [address] Absolute Lymph 1.90 {X10_3/ul} (Normal) Range: 0.83-4.51 [...] 4.2-5.4 WBC 4.5 K/mm3 (Normal) Range: 4.4-11.0 85-Kds-287073:13 Comprehensive Metabolic Profil Comments: [facility] [address]av[address] [place], [address] GAP 6 (Normal) Range: 5-15 CO2 30.0 [...] 7-18 GLU 89 mg/dL (Normal) Range: 70-110 21-Uhr-239608:13 CRP Comments: [facility] [address] [place], [place], [id number] C-REACTIVE PROT < 2.90 mg/L (Normal) Range: 0.0-3.0 Comments: C-Reactive Protein (CRP) provides useful information for thediagnosis, therapy and monitoring of inflammatory processesand associated diseases. For the evaluation of Relative Riskfor Cardiovascular Dise ase, a High Sensitivity CRP (HSCRP)should be ordered. :13 Erythrocyte Sed Rate Comments: [facility] [address] [place], [place], [address] SED RATE 13 mm/h (Normal) Range: 0-30 26-Vpq-284209:13 Lipid Profile Comments: [facility] [address] [place], [place], [address] VLDL 32 mg/dL (Normal) Range: 5-40 LDL [...] 200-240 mg/dL Borderline >240 mg/dL High Risk 15-Hss-024754:13 Rheumatoid Factor Comments: [facility] [address]ft[address] [place], [address] RHEUMATOID FAC < 10.0 {IU/mL} (Normal) 45-Yfr-663892:13 Thyroid Stim Hormone (TSH) Comments: [facility] Rxpcswsclr[address] [place], [address] TSH 4.62 {uIU/mL} (Abnormal) Range: 0.358-3.74 :54 Lipid Profile Comments: ORDERED: CBCD, CMP, LDH, URIC, XTRADR.FAST ORDERED: LIPID, CMP, VITD, CBCDWAvita Health [facility] Xxyoocxzyv[address] [place], [address] VLDL 20 mg/dL (Normal) Range: 5-40 [...] High Risk :54 Vitamin D,25 Hydroxy Comments: [facility] [address]ltmjjq[address] [place], [address] Vitamin D 25-OH 43.8 ng/mL (Normal) Comments: Vitamin D 25(OH) Status Range Deficiency <20 ng/mL (50nmol/L) Insuffciency 20 - 30 ng/mL (50 - 75 nmol/L) Sufficiency 30 - 100 ng/mL (75 - 250 nmol/L) Toxicity >100 ng/mL (>250 nmol/L) :53 CBC W/Diff, Automated Comments: [facility] [address]zcy[address] [place], [place], [address] Absolute Lymph 1.63 {X10_3/ul} (Normal) Range: 0.83-4.51 [...] Range: 4.4-11.0 :53 Comprehensive Metabolic Profil Comments: [facility] [address]htasoz[address] [place], [place], [address] GAP 7 (Normal) Range: 5-15 CO2 32.0 [...] 70-110 :53 LDH 182 U/L (Normal) Comments: [facility] [address] [place], [place], [address] Range: 84-246 :53 Uric Acid Comments: [facility] [address] [place], [place], [address] URIC 4.4 mg/dL (Normal) Range: 2.6-6.0 10-Rwn-720501:49 CBC W/Diff, Auto - EPLAB Comments: At [facility] Medical Oncologypatients receive CBC w/auto Differential ONLY. Physicianwill place an order for a manual differential or Pathologistreview at his discretion. [facility]. [address] [place] [address] [place] [address] SKIDWAY WORKER: JOSE KOHLI DO PH:[phone] Health St. [facility] Center [address]amsm[address] [place], [place], [address] Absolute Lymph 1.40 {X10_3/uL} (Normal) Range: 0.83-4.51 [...] 4.2-5.4 WBC 4.0 K/mm3 (Abnormal) Range: 4.4-11.0 57-Gfo-502614:43 CBC W/Diff, Automated Comments: [facility] Tykoxskyat[address] [place], [place], [address] Absolute Lymph 1.46 {X10_3/ul} (Normal) Range: 0.83-4.51 [...] Serial specimen #1, #2, #3, or #4: [facility] [address] [place] [address], [address] C-REACTIVE PROT < 2.90 mg/L (Normal) Range: 0.0-3.0 Comments: C-Reactive Protein (CRP) provides useful information for thediagnosis, therapy and monitoring of inflammatory processesand associated diseases. For the evaluation of Relative Riskfor Cardiovascular Dise ase, a High Sensitivity CRP (HSCRP)should be ordered. 89-Ntg-608541:43 CRP Comments: 'TROP' Serial specimen #1, #2, #3, or #4: [facility] [address]vf[address] [place], [address] C-REACTIVE PROT < 2.90 mg/L (Normal) Range: 0.0-3.0 Comments: C-Reactive Protein (CRP) provides useful information for thediagnosis, therapy and monitoring of inflammatory processesand associated diseases. For the evaluation of Relative Riskfor Cardiovascular Dise ase, a High Sensitivity CRP (HSCRP)should be ordered. 25-Sry-013002:43 Erythrocyte Sed Rate Comments: [facility] [address]tf[address] [place], [address] SED RATE 9 mm/h (Normal) Range: 0-30 80-Gqz-473478:43 ASSAY, TROPONIN, QUANTITATIVE Comments: stat; 'TROP' Serial specimen #1, #2, #3, or #4: INTMer[facility] [address]rfwwkr[address] [place], [address] (aka Troponin I) (60908) TROPONIN-I < 0.02 ng/mL (Normal) Comments: TROPONIN-I EXPECTED VALUES <0.05 NEGATIVE 0.06 - 0.59 AT RISK OF TN > OR = 0.60 SUGGEST TN 14-Wtj-429824:15 Basic Metabolic Profile (BMP) Comments: PLEASE REDRAW PREVIOUS SPECIMENS MISLABELED'TROP' Serial specimen #1, #2, #3, or #4: 1'CKMB' Serial Specimen #1, #2 or #3? 1[facility] [address] [place], [address] GAP 2 (Abnormal) Range: 5-15 CO2 31.0 [...] 7-18 GLU 103 mg/dL (Normal) Range: 70-110 71-Sso-954129:15 CBC W/Diff, Automated Comments: [facility] [address]vvndmpot[address] [place], [place], [address]) Absolute Lymph 1.99 {X10_3/ul} (Normal) Range: 0.83-4.51 [...] 4.2-5.4 WBC 5.8 K/mm3 (Normal) Range: 4.4-11.0 39-Rtg-795351:15 CK-MB Quantitative and Index Comments: PLEASE REDRAW PREVIOUS SPECIMENS MISLABELED'TROP' Serial specimen #1, #2, #3, or #4: 1'CKMB' Serial Specimen #1, #2 or #3? 1[facility] [address]duwwf[address] [place], [address] CKRI 0.7 % (Normal) Range: 0.0-1.4 Comments: RELATIVE INDEX >1.5% IS PRESUMPTIVELY POSITIVE CPKMB 0.6 ng/mL (Normal) Range: 0.0-5.0 Comments: CK-MB and RI Interpretation MB Relative Index Non-AMI <or= 5 NA Indeterminate > 5 <or= 4 AMI > 5 > 4 CPK TOTAL 82 U/L (Normal) Range: 26-192 93-Ggn-422452:15 Partial Thromboplast Time Comments: [facility] [address]wecs[address] [place], [address] PTT 48.2 s (Abnormal) Range: 24.1-36.2 36-Sxu-597428:15 Prothrombin Time w/INR Comments: [place] [address] [place], [address] INR 2.3 (Normal) PROTIME 25.3 s (Abnormal) Range: 11.7-14.9 13-Mfq-033044:15 Troponin-I Comments: PLEASE REDRAW PREVIOUS SPECIMENS MISLABELED'TROP' Serial specimen #1, #2, #3, or #4: 1'CKMB' Serial Specimen #1, #2 or #3? [address] [place] [address] [address] [place], [address] TROPONIN-I < 0.02 ng/mL (Normal) Comments: TROPONIN-I EXPECTED VALUES <0.05 NEGATIVE 0.06 - 0.59 AT RISK OF TN > OR = 0.60 SUGGEST TN 22-Lnn-146881:25 Basic Metabolic Profile (BMP) Comments: Serial Specimen #1, #2 or #3? 1'TROP' Serial specimen #1, #2, #3, or #4: [address] [place] [address] [address]ch[address] [place], [address] GAP 10 (Normal) Range: 5-15 CO2 26.0 [...] 7-18 GLU 104 mg/dL (Normal) Range: 70-110 21-Kpj-052493:25 BNP,B-Type NATRIURETIC PEPTIDE Comments: [facility] [address] [place], [address] B-TYPE STEFAN PEP 94.1 pg/mL (Normal) Range: 0-100 37-Cqo-505679:25 CBC W/Diff, Automated Comments: [facility] [address] [place], [place], [address] Absolute Lymph 2.03 {X10_3/ul} (Normal) Range: 0.83-4.51 [...] 4.2-5.4 WBC 6.0 K/mm3 (Normal) Range: 4.4-11.0 56-Yxz-976534:25 CK-MB Quantitative and Index Comments: Serial Specimen #1, #2 or #3? 1'TROP' Serial specimen #1, #2, #3, or #4: [address] [place] [address] [place], [address] CKRI Test not performed % (Normal) Range: 0.0-1.4 CPKMB < 0.5 ng/mL (Normal) Range: 0.0-5.0 Comments: CK-MB and RI Interpretation MB Relative Index Non-AMI <or= 5 NA Indeterminate > 5 <or= 4 AMI > 5 > 4 CPK TOTAL 69 U/L (Normal) Range: 26-192 14-Lti-018635:25 Prothrombin Time w/INR Comments: [facility] [address] [place], [address] INR 1.0 (Normal) PROTIME 13.4 s (Normal) Range: 11.7-14.9 43-Klk-397348:25 Troponin-I Comments: Serial Specimen #1, #2 or #3? 1'TROP' Serial specimen #1, #2, #3, or #4: [address] [place] [address] [place], [place], [address] TROPONIN-I < 0.02 ng/mL (Normal) Comments: TROPONIN-I EXPECTED VALUES <0.05 NEGATIVE 0.06 - 0.59 AT RISK OF TN > OR = 0.60 SUGGEST TN 14-Cod-174443:50 Urinalysis, Office (81453) UA - LEUKOCYTE ESTERASE Small (Normal) UA - NITRITE Negative (Normal) URINE UROBILINGN DIPAK TIMED Normal mg/dL (Normal) UA - PROTEIN Negative mg/dL (Normal) UA - PH 7.0 (Normal) UA - BLOOD Non Hemolyzed Trace (Normal) UA - SPECIFIC GRAVITY 1.015 (Normal) UA - KETONES Negative mg/dL (Normal) UA - BILIRUBIN Negative (Normal) UA - GLUCOSE Negative (Normal) 14-Drq-133629:16 URINE ELLE CULTURE-IDENTIFICATN Comments: PATIENT NOT FASTINGPERFORMED BY: [facility] Bxjick4846 [facility] [id number] Information: [id number] ([id number]) Result 1 MUG (Normal) Comments: Mixed urogenital flora1,000 Colonies/mL Urine Culture,Comprehensive Final report (Normal) 07-Qlx-65691:58 CBC W/Diff, Automated Comments: [facility] [address]owyhgqx87[address] [place], [place], [address] ; non-emergent till apt Absolute Lymph 1.57 [...] Range: 4.4-11.0 :58 Comprehensive Metabolic Profil Comments: [facility] [address] [place], [address] GAP 8 (Normal) Range: 5-15 CO2 30.0 [...] (Normal) Range: 70-110 :58 Hemoglobin A1c Comments: [facility] [address] [place], [place], [address] HGB A1C 5.9 % (Normal) Range: 4.2-6.3 :58 Lipid Profile Comments: [facility] Nvkurrndua[address] [place], [place], [address] VLDL 14 mg/dL (Normal) Range: 5-40 LDL [...] Urinalysis, Complete Comments: How was Urine Obtained? [facility] [address]qynuwg[address] [place], [place], [address] MUCUS, URINE 0 SEEN {/hpf} (Normal) BACTERIA [...] CLARITY Sl. Cloudy (Normal) COLOR Yellow (Normal) :26 CBC W/Diff, Auto - EPLAB Comments: At [facility] Medical Oncologypatients receive CBC w/auto Differential ONLY. Physicianwill place an order for a manual differential or Pathologistreview at his discretion. [facility]. [address] [place] [address] SKIDWAY WORKER: JOSE KOHLI DO PH:[phone] Health St. [facility] [address]fyn[address] [place], [address] ; ordered by Dr[address] Evgeny [...] 4.2-5.4 WBC 7.0 K/mm3 (Normal) Range: 4.4-11.0 1-Uvp-828687:30 Basic Metabolic Profile (BMP) Comments: [facility] [address]av[address] [place], [place], [address] GAP 8 (Normal) Range: 5-15 CO2 27.0 [...] 7-18 GLU 84 mg/dL (Normal) Range: 70-110 3-Yqx-563390:30 CBC-Complete Blood Cnt No Diff Comments: [facility] [address]po[address] [place], [address] MPV 11.8 fL (Normal) Range: 6.2-12.0 PLT [...] 4.2-5.4 WBC 6.7 K/mm3 (Normal) Range: 4.4-11.0 49-Wnd-653907:37 CBC W/Diff, Auto - EPLAB Comments: At [facility] Medical Oncologypatients receive CBC w/auto Differential ONLY. Physicianwill place an order for a manual differential or Pathologistreview at his discretion. [facility]. [address] [address] SKIDWAY WORKER: JOSE KOHLI DO PH:[phone] Health St. [facility] [id number] [place], [address] Absolute Lymph 1.77 {X10_3/uL} (Normal) Range: 0.83-4.51 [...] 4.2-5.4 WBC 4.3 K/mm3 (Abnormal) Range: 4.4-11.0 [id number] Comprehensive Metabolic Profil Comments: Serial Specimen #1, #2 or #3? 1Is Patient Taking Vitamins or Folic Acid Supplements? [facility] [id number] [place], [place], [id number] GAP 7 (Normal) Range: 5-15 CO2 29.0 [...] 7-18 GLU 84 mg/dL (Normal) Range: 70-110 [id number] Ferritin Comments: Serial Specimen #1, #2 or #3? 1Is Patient Taking Vitamins or Folic Acid Supplements? [facility] [id number] [place], [place], [id number] FERRITIN 80 ng/mL (Normal) Range: 8-252 [id number]-[id number] Folates, (Folic Acid) Comments: Serial Specimen #1, #2 or #3? 1Is Patient Taking Vitamins or Folic Acid Supplements? [facility] [id number] [place], [place], [id number] FOLATES 63.40 ng/mL (Abnormal) Range: 3.1-17.5 [id number] Iron Comments: Serial Specimen #1, #2 or #3? 1Is Patient Taking Vitamins or Folic Acid Supplements? [facility] [id number] [place], [place], [id number] IRON 71 ug/dL (Normal) Range: 50-170 [id number]:37 Iron Binding Capacity,Total Comments: Serial Specimen #1, #2 or #3? 1Is Patient Taking Vitamins or Folic Acid Supplements? [facility] [address] [place], [address] TIBC 335 ug/dL (Normal) Range: 250-450 73-Yhr-793750:37 LDH 162 U/L (Normal) Comments: Serial Specimen #1, #2 or #3? 1Is Patient Taking Vitamins or Folic Acid Supplements? [facility] [address] [place], [address] Range: 84-246 34-Bgm-843299:37 Uric Acid Comments: Serial Specimen #1, #2 or #3? 1Is Patient Taking Vitamins or Folic Acid Supplements? [facility] [address] [place], [address] URIC 4.5 mg/dL (Normal) Range: 2.6-6.0 96-Hte-751868:37 Vitamin B12 1077 pg/mL (Abnormal) Comments: [facility] [address] [place], [id number] Range: 211-911 90-Vew-299694:36 CBC W/Diff, Auto - EPLAB Comments: At [facility] Medical Oncologypatients receive CBC w/auto Differential ONLY. Physicianwill place an order for a manual differential or Pathologistreview at his discretion. [facility]. [address] [place] [address] SKIDWAY WORKER: JOSE KOHLI DO PH:[phone] Health [facility] [address] [place], [address] Absolute Lymph 1.97 {X10_3/uL} (Normal) Range: 0.83-4.51 [...] (Normal) Range: 4.4-11.0 :48 Vitamin D Hydroxy (68539) Comments: PATIENT WAS FASTINGPERFORMED BY: [employer] [facility] [id number] Vitamin D, 25-Hydroxy 32.8 ng/mL (Normal) Range: 30.0-100.0 Comments: Vitamin D deficiency has been defined by the [place] of[place]icine and an Endocrine Society practice guideline as alevel of serum 25-OH vitamin D less than 20 ng/mL (1,2).The Endocrine Society went on to further define vitamin Dinsufficiency as a level between 21 and 29 ng/mL (2).1. IOM ([place] of Medicine). 2010. Dietary reference intakes for calcium and D. [place]: The National Academies Press.2. Jose Carlos MF, Flip SIFUENTES, David ROME, et al. Evaluation, treatment, and prevention of vitamin D deficiency: an Endocrine Society clinical practice guideline. JCEM. 2010; 96(7):1911-30. :48 CBC with auto diff Comments: PATIENT WAS FASTINGPERFORMED BY: [facility]6370 [facility] [id number] Information: [id number] ([id number]) Immature Grans (Abs) 0.0 {x10E3/uL} (Normal) Range: [...] PANEL, COMPREHENSIVE Comments: PATIENT WAS FASTINGPERFORMED BY: LabCoRobert Wood Johnson University HospitalFbxpdk0616 [facility] [id number] (33499) ALT (SGPT) 10 [iU]/L (Normal) Range: 0-32 [...] mg/dL (Normal) Range: 65-99 :48 LIPID PANEL (65821) Comments: PATIENT WAS FASTINGPERFORMED BY: [facility] [id number] LDL/HDL Ratio 1.2 {ratio_units} (Normal) Range: 0.0-3.2 [...] CREATININE RATIO Comments: PATIENT WAS FASTINGPERFORMED BY: [employer]70 [facility] [id number] (57072) AND (67667) Microalb/Creat Ratio 64.2 {mg/g_creat} (Abnormal) Range: 0.0-30.0 Microalbumin, Urine 46.3 ug/mL (Abnormal) Range: 0.0-17.0 Creatinine, Urine 72.1 mg/dL (Normal) Range: 15.0-278.0 :48 Hemoglobin Glyclated (HGB A1C) Comments: PATIENT WAS FASTINGPERFORMED BY: LabCoRobert Wood Johnson University HospitalBkixai8133 [facility] [id number] (42925) Hemoglobin A1c 5.7 % (Abnormal) Range: 4.8-5.6 Comments: . Pre-diabetes: 5.7 - 6.4 Diabetes: >6.4 Glycemic control for adults with diabetes: <7.0 39-Bkv-420004:28 CBC W/Diff, Auto - EPLAB Comments: At [facility] Medical Oncologypatients receive CBC w/auto Differential ONLY. Physicianwill place an order for a manual differential or Pathologistreview at his discretion. [facility]. [address] [place] [address] SKIDWAY WORKER: JOSE KOHLI DO PH:[phone] performed at:[facility] Laborato [address] [place], [place] [address] ; handled by evgeny Absolute Lymph 1.89 [...] W/Diff, Auto - EPLAB Only Comments: At [facility] Medical Oncologypatients receive CBC w/auto Differential ONLY. Physicianwill place an order for a manual differential or Pathologistreview at his discretion. [facility]. [address] [place] [address] SKIDWAY WORKER: JOSE KOHLI DO PH:[phone] performed at:[facility] Laborato [address] [place], [place] [address] Absolute Neut 2.6 {X10_3/uL} (Normal) Range: 2.0-7.7 [...] Serum Creatinine AND GFR Comments: Test performed at:[facility] [address] [place], [place] [address] EST GFR - AA 62 mL/min (Normal) EST GFR 51 mL/min (Abnormal) CREAT,SERUM 1.12 mg/dL (Normal) Range: 0.55-1.20 Comments: Please note revised CREATININE reference range /22/2015. 1-Pde-389466:38 CBC W/Diff, Auto - EPLAB Only Comments: At [facility] Medical Oncologypatients receive CBC w/auto Differential ONLY. Physicianwill place an order for a manual differential or Pathologistreview at his discretion. [facility] OUT[facility]IENT [facility]. [address] [place] [address] SKIDWAY WORKER: JOSE KOHLI DO PH:[phone] performed at:[facility] Laborato [address] [place] [address] Absolute Neut 3.0 {X10_3/uL} (Normal) Range: 2.0-7.7 [...] 4.2-5.4 WBC 5.8 K/mm3 (Normal) Range: 4.4-11.0 63-Mlw-962830:12 FLURESCNT ANTIB SCRN EA Comments: PATIENT WAS FASTINGPERFORMED BY: [facility] Hnromk7768 [facility] [id number] Information: [id number] (75910) celiac profile Immunoglobulin A, Qn, Serum 119 [...] - 30 Moderate to Strong Positive >30 60-Uhw-873723:12 IMMUNOASSAY, ANALYTE Comments: PATIENT WAS FASTINGPERFORMED BY: lifeIO6370 [facility] [id number] (NON-INFECT) (97911) celiac profile Mitochondrial (M2) Antibody <20.0 {Units} (Normal) Range: 0.0-20.0 Comments: Negative 0.0 - 20.0 Equivocal 20.1 - 24.9 Positive >24.9 . Mitochondrial (M2) Antibodies are found in 90-96% of patients with primary biliary cirrhosis. 19-Ats-797806:12 IGA/IGD/IGG/IGM-EACH (79354) Comments: PATIENT WAS FASTINGPERFORMED BY: lifeIO6370 [facility] [id number] Immunoglobulin E, Total 2 {IU/mL} (Normal) Range: 0-100 Immunoglobulin M, Qn, Serum 72 mg/dL (Normal) Range: 40-230 Immunoglobulin G, Qn, Serum 884 mg/dL (Normal) Range: 700-1600 37-Wbx-460509:12 METABOLIC PANEL, COMPREHENSIVE Comments: PATIENT WAS FASTINGPERFORMED BY: REGiMMUNE CorporationAcoma-Canoncito-Laguna HospitalUnbofz2864 [facility] [id number] (93325) ALT (SGPT) 12 [iU]/L (Normal) Range: 0-32 [...] Glucose, Serum 94 mg/dL (Normal) Range: 65-99 62-Pin-475537:12 LIPID PANEL (51462) Comments: PATIENT WAS FASTINGPERFORMED BY: REGiMMUNE CorporationRobert Wood Johnson University HospitalOmhyqz9034 [facility] [id number] LDL/HDL Ratio 1.2 {ratio_units} (Normal) Range: 0.0-3.2 [...] Cholesterol, Total 168 mg/dL (Normal) Range: 100-199 :25 HgA1C , Office (13953) HgA1C , Office 5.8 % (Normal) Range: 4.6 - 7.1 :0 COLON BIOPSY (CHOOSE See Note (Normal) Comments: Test performed at:[facility] [address] [place], [place] [address] 4 SITE) Comments: Patient: LUPE LOPEZ : 1945 (69/F) Acct Num: [id number] Phys: Samm Boo Unit Num: [id number] Loc: LABSPEC Specimen: [id number] Received: 09/13/14 - 1610 Spec Type: C CHASE BX TISSUES TISSUES: GROSS DESCRIPTION Received is one container labeled with the patient name and designated biopsy polyp at mid transverse. The specimen consists of one irreg ular fragment of light gonzalez soft tissue that measures 0.3 x 0.2 x 0.1 cm. The specimen is totallysubmitted in one cassette. / AM: 09/17/14 TC:5 CPT: 97348 HEADER OPERATION: Colonoscopy with biopsy PRE-OP DIAGNOSIS: Anemia TISSUE SUBMITTED: Biopsy polyp - mid transverse - rule out adenoma MICROSCOPIC DIAGNOSIS Mid transverse colon polyp, biopsy: Tubular adenoma. AM: 09/17 Signed Jose [facility] 09/17/14 <signature on file> :58 CBC W/Diff, Auto - EPLAB Only Comments: At [facility] Oncologypatients receive CBC w/auto Differential ONLY. Physicianwill place an order for a manual differential or Pathologistreview at his discretion. [facility]. [address] [place] [address] SKIDWAY WORKER: JOSE KOHLI DO PH:[phone] performed at:[facility] Laborato [address] [place], [place] [address] Absolute Neut 1.6 {X10_3/uL} Range: 2.0-7.7 (Abnormal) [...] BIOPSY See Note (Normal) Comments: Test performed at:[facility] [address] [place], [place] [address] 00 Comments: Patient: LUPE LOPEZ : 1945 (69/F) Acct Num: [id number] Phys: Evgeny Farmer Unit Num: [id number] Loc: [facility] Specimen: [id number] Received: 07/31/14 - 1215 Spec Type: BMB TISSUES TISSUES: ADDENDUM Addendum Number 1 CYTOGENETICS REPORT FROM [employer] INTERPRETATION AND COMMENTS: Karyotype: 46,XX[20] A normal female karyotype w as observed in twenty metaphases analyzed. Please see complete report in e-chart or EMR for further details Addendum Signed Jose Kohli 5 <signature on file> BONE MARROW GROSS [...] and cytogenetics. / AM: 07/31/14 TC:5 CPT: 52276, 31693, 28698 x2, 60840 x3, 75344 BONE MARROW STUDY CBC DATE: 07/31/14 WBC [...] Highlights myeloid elements and megakaryocytes. COMMENT IHC ([id number]) supports the above diagnosis. Flow cytometry study [...] - Smears and send outs Signed Jose Kohli 08/06/14 <signature on file> : IMMUNOHISTOCHEMISTRY See Note (Normal) Comments: Test performed at:[facility] [address] [place] [address] 00 Comments: Patient: LUPE LOPEZ : 1945 (69/F) Acct Num: [id number] Phys: Evgeny Farmer Unit Num: [id number] Loc: [facility] Specimen: [id number] Received: 08/01/141157 Spec Type: IMMUN O TISSUES TISSUES: SPECIMEN INFORMATION: Tissue Source: Bone marrow biopsy and clot Clinical Info: Anemia Specimen Number: [id number] A AND B CPT code: 56938, 77990 x19 METHOD OLOGY: Deparaffinized sections of prefer/formalin-fixed [...] (11E3) negative BCL-2 (BCL2/100/D5) negative BCL- 6 (LN22/GJ684I/A8) negative Cyclin D 1/BCL-1 (SP4) negative Block B CD3 (LN10/PS1) positive CD5 (4C7/SP10) positive CD10 (56C6) negative CD20 (MJ1/L26) negative CD23 (1B12) negative CD45 (X16/99/ RP2/18) positive CD79a (11E3) negative BCL-2 (BCL2/100/D5) positive BCL-6 (LN22/BX859D/A8) nega tive Cyclin D1/BCL-1 (SP4) negative These tests were developed and their performance characteristics determined by [facility]. They may not have been cleared or approved by the U.S. Food and Drug Administration. The FDA has determined that such clearance or approval is not necessary. INTERPRETATION: A. Bone marrow biopsy: Polytypic lymphoid aggregates. B. Bone marrow clot: Polytypic lymphoid aggregates. Comment: There is no evidence of lymphoma. AM:jeniffer 08/02/14 PHYSICIAN AND INSTITUTION [place] [address] Signed Jose Kohli 08/06/14 <signature on file> 4-Cqy-277269:59 CBC W/Diff, Auto - EPLAB Only Comments: At [facility] Medical Oncologypatients receive CBC w/auto Differential ONLY. Physicianwill place an order for a manual differential or Pathologistreview at his discretion. [facility]. [address] [place] [address] SKIDWAY WORKER: JOSE KOHLI DO PH:[phone] performed at:[facility] [address] [place], [place] [address] Absolute Neut 2.3 {X10_3/uL} (Normal) Range: 2.0-7.7 [...] 4.2-5.4 WBC 5.2 K/mm3 (Normal) Range: 4.4-11.0 :23 CBC W/Diff, Auto - EPLAB Only Comments: At [facility] patientsreceive CBC w/auto Differential ONLY. Physician will placean order for a manual differential or Pathologist review athis discretion. [facility]. [address] [place] [address] SKIDWAY WORKER: JOSE KOHLI DO PH:[phone] performed at:[facility] [address] [place] [address] Absolute Neut 2.0 {X10_3/uL} (Normal) [...] 4.2-5.4 WBC 4.0 K/mm3 (Abnormal) Range: 4.4-11.0 81-Ctw-61469:23 Comprehensive Metabolic Profil Comments: Serial Specimen #1, #2 or #3? 1Test performed at:[facility] [address] [address] GAP 6 (Normal) Range: 5-15 [...] Specimen #1, #2 or #3? 1Test performed at:[facility] [address] [place] [address] FERRITIN 255 ng/mL (Abnormal) Range: 8-252 :23 Iron Comments: Serial Specimen #1, #2 or #3? 1Test performed at:[facility] [address] [place] [address] IRON 72 ug/dL (Normal) Range: 50-170 :23 Iron Binding Capacity,Total Comments: Serial Specimen #1, #2 or #3? 1Test performed at:[facility] [address] [place] [address] TIBC 320 ug/dL (Normal) Range: 250-450 :23 LDH 176 U/L (Normal) Comments: Serial Specimen #1, #2 or #3? 1Test performed at:[facility] [address] [place] [address] Range: 87-241 :23 Uric Acid Comments: Serial Specimen #1, #2 or #3? 1Test performed at:[facility] [address] [place] [address] URIC 5.2 mg/dL (Normal) Range: 2.6-6.0 :45 Copper, Serum or Plasma Comments: Test performed at:[facility] [address] [place] [address] COPPER 112 ug/dL (Normal) Range: 72-166 Comments: Detection Limit = 5Performed at: [facility] [address] [id number] Director: Scot Nuñez PhD, Phone: [phone] at: [facility] [address] [id number] Director: Satish Mayer MD, Phone: [phone] 25-Jun-20149:45 Lead, Blood Adult 16+yrs Comments: Test performed at:[facility] 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 1Is Patient Taking Vitamins or Folic Acid Supplements? NTest performed at:[facility] [address] [place], [place] [address] GAP 6 (Normal) Range: 5-15 CO2 30.0 [...] 7-18 GLU 86 mg/dL (Normal) Range: 70-110 7-Iox-438108:43 Direct Antiglobulin Diann YUVAL Comments: Test performed at:[facility] [address] [place] [address] DIRECT DIANN= NEG w/POLYSPECIFIC (Normal) 6-Yur-337719:43 Erythropoietin Comments: Is Patient Fasting? NTest performed at:[facility] [address] [place] [address] ERYTHROP 589816 24.8 m[iU]/mL (Abnormal) Range: 2.6-18.5 6-Jkt-821935:43 Ferritin Comments: Serial Specimen #1, #2 or #3? 1Is Patient Taking Vitamins or Folic Acid Supplements? NTest performed at:[facility] [address] [place] [address] FERRITIN 11 ng/mL (Normal) Range: 8-252 5-Wav-720496:43 Folates, (Folic Acid) Comments: Serial Specimen #1, #2 or #3? 1Is Patient Taking Vitamins or Folic Acid Supplements? NTest performed at:[facility] [address] [place] [address] FOLATES 48.80 ng/mL (Abnormal) Range: 3.1-17.5 7-Zbs-308789:43 Haptoglobin Comments: Is Patient Fasting? NTest performed at:[facility] [address] [facility] [place] [place] [address] HAPTOGLOB 1628 224 mg/dL (Abnormal) Range: 34-200 Comments: Performed at: - [facility] [id number] Director: Scot Nuñez PhD, Phone: [phone] 9-Wcu-367751:43 THEE + Protein Elect, Serum Comments: Is Patient Fasting? NTest performed at:[facility] [address] [place] [address] NOTE: Comment (Normal) Comments: Protein electrophoresis scan will follow via computer,mail, or it project coordinator delivery. THEE RESULT,S Comment: (Normal) Comments: THEE SHOWS ATYPICAL LAMBDA. A/G RATIO 1.4 (Normal) Range: 0.7-2.0 GLOBULIN, TOTAL 2.8 g/dL (Normal) Range: 2.0-4.5 M-SPIKE (Normal) Comments: Not Observed GAMMA GLOBULIN 0.9 g/dL (Normal) Range: 0.5-1.6 BETA GLOBULIN 0.9 g/dL (Normal) Range: 0.6-1.3 KPWVG-9-NKZD 0.9 g/dL (Normal) Range: 0.4-1.2 MPXMG-2-FRAY 0.3 g/dL (Normal) Range: 0.1-0.4 ALBUMIN 3.9 g/dL (Normal) Range: 3.2-5.6 IMMUNOGL M 1792 69 mg/dL (Normal) Range: 40-230 IMMUNO A 1784 133 mg/dL (Normal) Range: 91-414 IMMUNO G 1776 959 mg/dL (Normal) Range: 700-1600 PROTEIN,TOTAL 6.7 g/dL (Normal) Range: 6.0-8.5 4-Bze-725110:43 Iron Binding Capacity,Total Comments: Serial Specimen #1, #2 or #3? 1Is Patient Taking Vitamins or Folic Acid Supplements? NTest performed at:[facility] [address] [place] [address] TIBC 407 ug/dL (Normal) Range: 250-450 0-Rkz-937052:43 Captree Lambda Light Chains Comments: Is Patient Fasting? NTest performed at:[facility] [address] [place] [address] KAPPA/LAMBDA % 1.35 (Normal) Range: 0.26-1.65 FR LAMBDA LT CH 18.72 mg/L (Normal) Range: 5.71-26.30 FR KAPPA LT CHN 25.25 mg/L (Abnormal) Range: 3.30-19.40 :43 LDH 173 U/L (Normal) Comments: Serial Specimen #1, #2 or #3? 1Is Patient Taking Vitamins or Folic Acid Supplements? NTest performed at:[facility] [address] [place] [address] Range: 87-241 4-Kyv-837391:43 Retic Panel Comments: Test performed at:[facility] [address] [place] [address] IPF 2.5 % (Normal) Range: 1.0-7.9 [...] 3.00-15.90 RETIC 0.97 % (Normal) Range: 0.5-1.5 :43 Thyroid Stim Hormone (TSH) Comments: Serial Specimen #1, #2 or #3? 1Is Patient Taking Vitamins or Folic Acid Supplements? NTest performed at:[facility] [address] [place] [address] TSH 1.87 {uIU/mL} (Normal) Range: 0.358-3.74 2-Bwl-562206:43 Uric Acid Comments: Serial Specimen #1, #2 or #3? 1Is Patient Taking Vitamins or Folic Acid Supplements? NTest performed at:[facility] [address] [place] [address] URIC 5.0 mg/dL (Normal) Range: 2.6-6.0 :43 Vitamin B12 548 pg/mL (Normal) Comments: Test performed at:[facility] [address] [place], [place] [address] Range: 211-911 :42 CBC W/Diff, Auto - EPLAB Only Comments: At [facility] patientsreceive CBC w/auto Differential ONLY. Physician will placean order for a manual differential or Pathologist review athis discretion. [facility]. [address] [place] [address] SKIDWAY WORKER: JOSE KOHLI DO PH:[phone] performed at:[facility] [address] [place], [place] [address] Absolute Neut 2.6 {X10_3/uL} (Normal) Range: 2.0-7.7 [...] PANEL, COMPREHENSIVE Comments: PATIENT WAS FASTINGPERFORMED BY: LabCoAcoma-Canoncito-Laguna HospitalTclvtg7713 [facility] [id number] (02298) ALT (SGPT) 5 [iU]/L (Normal) Range: 0-32 [...] Glucose, Serum 96 mg/dL (Normal) Range: 65-99 98-Vkq-25318:56 LIPID PANEL (07705) Comments: PATIENT WAS FASTINGPERFORMED BY: LabCoRobert Wood Johnson University HospitalMzvxts9757 [facility] [id number] LDL/HDL Ratio 1.3 {ratio_units} (Normal) Range: 0.0-3.2 [...] DIFF WBC Comments: PATIENT WAS FASTINGPERFORMED BY: LabCoRobert Wood Johnson University HospitalRdsmqk5349 [facility] [id number] Information: [id number] (66880) Immature Grans (Abs) 0.0 {x10E3/uL} (Normal) Range: [...] 3.77-5.28 WBC 4.8 {x10E3/uL} (Normal) Range: 3.4-10.8 :44 Protein Electro, Random Urine Comments: PATIENT WAS FASTINGPERFORMED BY: [facility]Former[facility]6370 [facility] [id number] Please note: SPRCS (Normal) Comments: Protein electrophoresis scan will follow via computer, mail, orcourier delivery. M-Abhinav, % Not Observed % (Normal) Gamma Globulin, U 19.9 % (Normal) Beta Globulin, U 25.8 % (Normal) Ebwfe-9-Qloyiqwb, U 12.8 % (Normal) Gdbff-8-Vowmfals, U 1.3 % (Normal) Albumin, U 40.2 % (Normal) Protein,Total,Urine 13.5 mg/dL (Normal) Range: 0.0-15.0 :44 Protein Electro.,S Comments: PATIENT WAS FASTINGPERFORMED BY: REGiMMUNE CorporationRobert Wood Johnson University HospitalLehkxw0648 [facility] [id number]; will review on 05/07 appt Please note: SPRCS (Normal) Comments: Protein electrophoresis scan will follow via computer, mail, orcourier delivery. A/G Ratio 1.2 (Normal) Range: 0.7-2.0 Globulin, Total 3.0 g/dL (Normal) Range: 2.0-4.5 M-Abhinav Not Observed g/dL (Normal) Gamma Globulin 1.0 g/dL (Normal) Range: 0.5-1.6 Beta Globulin 0.8 g/dL (Normal) Range: 0.6-1.3 Ojfez-4-Qyongdzy 0.9 g/dL (Normal) Range: 0.4-1.2 Qltzs-1-Jcbjcszc 0.3 g/dL (Normal) Range: 0.1-0.4 Albumin 3.7 g/dL (Normal) Range: 3.2-5.6 Protein, Total, Serum 6.7 g/dL (Normal) Range: 6.0-8.5 Written Authorization WAR (Normal) Comments: PATIENT WAS FASTINGPERFORMED BY: [facility]6370 [facility] [id number] :44 Comments: Written Authorization Received.Authorization received from ENRIKE JAIMES [id number] by Jyothi Boland 3-Uqd-848388:44 LIPID PANEL (66419) Comments: PATIENT WAS FASTINGPERFORMED BY: [employer] Gvylyd0784 [facility] [id number] LDL/HDL Ratio 1.9 {ratio_units} (Normal) Range: 0.0-3.2 [...] Cholesterol, Total 211 mg/dL (Abnormal) Range: 100-199 3-Sdy-653007:37 FECAL OCCULT- Tubes sent home (18600) FECAL OCCULT HGB ASSAY, QUAL, 1-3 SIMULTANEOU positive (Normal) 4-Heg-973908:44 RETICULOCYTE COUNT [facility] Comments: PATIENT WAS FASTINGPERFORMED BY: [employer] Hfhcui6930 [facility] [id number] (81737) Reticulocyte Count 1.6 % (Normal) Range: 0.6-2.6 0-Bfi-983415:44 LDH (LD) (LACTATE DEHYDROGENASE) Comments: PATIENT WAS FASTINGPERFORMED BY: [employer] cicayda [facility] [id number] (33780) LDH 207 [iU]/L (Normal) Range: 119-226 5-Rgc-061130:44 IRON BINDING CAPACITY (TIBC) Comments: PATIENT WAS FASTINGPERFORMED BY: [employer] Kzvcfa1929 [facility] [id number] (82516) Iron Saturation 16 % (Normal) Range: 15-55 Iron, Serum 50 ug/dL (Normal) Range: 35-155 UIBC 270 ug/dL (Normal) Range: 150-375 Iron Bind.Cap.(TIBC) 320 ug/dL (Normal) Range: 250-450 :44 FERRITIN (50707) Comments: PATIENT WAS FASTINGPERFORMED BY: CHAN REGiMMUNE CorporationRobert Wood Johnson University HospitalBqfwpn7587 [facility] [id number] Ferritin, Serum 84 ng/mL (Normal) Range: 15-150 :44 CBC W/AUTO DIFF WBC (71720) Comments: PATIENT WAS FASTINGPERFORMED BY: REGiMMUNE CorporationRobert Wood Johnson University HospitalChlguu9137 [facility] [id number] Immature Grans (Abs) 0.0 {x10E3/uL} (Normal) Range: [...] CREATININE RATIO Comments: PATIENT WAS FASTINGPERFORMED BY: LabThe Rehabilitation Institute Of St. LouisFdbgkl7036 [facility] [id number] ([id number]) AND (86356) Microalb/Creat Ratio 21.9 {mg/g_creat} (Normal) Range: 0.0-30.0 Microalbumin, Urine 22.0 ug/mL (Abnormal) Range: 0.0-17.0 Creatinine, Urine 100.3 mg/dL (Normal) Range: 15.0-278.0 :44 Hemoglobin Glyclated (HGB A1C) Comments: PATIENT WAS FASTINGPERFORMED BY: [facility]Former[facility]6370 [facility] [id number] ([id number]) Hemoglobin A1c 5.5 % (Normal) Range: 4.8-5.6 Comments: . Increased risk for diabetes: 5.7 - 6.4 Diabetes: >6.4 Glycemic control for adults with diabetes: <7.0 44-Eai-354126:39 Microscopic Examination Comments: PATIENT NOT FASTINGPERFORMED BY: [facility] HealthThe [facility] Institute Of St. LouisJvjfaj2653 [facility] [id number] Bacteria Few (Normal) Mucus Threads Present (Normal) Epithelial Cells (non renal) 0-10 {/hpf} (Normal) Range: 0 - 10 RBC 0-2 {/hpf} (Normal) Range: 0 - 2 WBC 6-10 {/hpf} (Abnormal) Range: 0 - 5 84-Odi-346881:37 D-Dimer (86430) Comments: PATIENT NOT FASTINGPERFORMED BY: [facility]6370 [facility] [id number] Information: [id number] D-Dimer 0.84 {mg/L_FEU} (Abnormal) Range: 0.00-0.49 Comments: In conjunction with a non-high clinical probability assessment, anormal (<0.50 mg/L FEU) result excludes deep vein thrombosis (DVT)and pulmonary embolism (PE) with high sensitivity. :39 Vitamin D Hydroxy (33977) Comments: PATIENT NOT FASTINGPERFORMED BY: [facility]6370 [facility] [id number] Vitamin D, 25-Hydroxy 38.7 ng/mL (Normal) Range: 30.0-100.0 Comments: Vitamin D deficiency has been defined by the [place] of[place]icine and an Endocrine Society practice guideline as alevel of serum 25-OH vitamin D less than 20 ng/mL (1,2).The Endocrine Society went on to further define vitamin Dinsufficiency as a level between 21 and 29 ng/mL (2).1. IOM ([place] of Medicine). 2010. Dietary reference intakes for calcium and D. [place]: The National Academies Press.2. Jose Carlos MF, Flip SIFUENTES, David ROME, et al. Evaluation, treatment, and prevention of vitamin D deficiency: an Endocrine Society clinical practice guideline. JCEM. 2010; 96(7):1911-30. 68-Abs-530391:39 Valproic Acid (66999) Comments: PATIENT NOT FASTINGPERFORMED BY: CB [facility] Ixdwjf95[address] RoadDublin [place] [id number] Valproic Acid (Depakote),S 105 ug/mL (Abnormal) Range: 50-100 Comments: Detection Limit = 4 <4 indicates None Detected . Toxicity may occur at levels of 100-500. Measurements of free unbound valproic acid may improve the assess- ment of clinical response.Patient drug level exceeds published reference range. Evaluateclinically for signs of potential toxicity. 02-Yxr-207982:39 VITAMIN B-12 (CYANOCOBALAMIN) Comments: PATIENT NOT FASTINGPERFORMED BY: CB [facility] Syqynv[address] [place] [id number] ([id number]) Vitamin B12 1017 pg/mL (Abnormal) Range: 211-946 62-Ukg-701556:39 FERRITIN (65094) Comments: PATIENT NOT FASTINGPERFORMED BY: CB [facility] Ixmzhb[address] RoadDublin [place] [id number] Ferritin, Serum 77 ng/mL (Normal) Range: 15-150 72-Zyg-515130:39 IRON (19779) Comments: PATIENT NOT FASTINGPERFORMED BY: CB [facility] Kwijrh70[address] RoadDublin [place] [id number] Iron, Serum 32 ug/dL (Abnormal) Range: 35-155 49-Uhy-917965:39 CBC W/AUTO DIFF WBC Comments: PATIENT NOT FASTINGPERFORMED BY: LabCoJason [place]ille 3422570 [facility] [id number] Information: [id number],2ND ORDER NO DRAW F EE (37623) Immature Grans (Abs) 0.0 {x10E3/uL} (Normal) Range: [...] 3.77-5.28 WBC 6.2 {x10E3/uL} (Normal) Range: 3.4-10.8 :39 TSH (61387) Comments: PATIENT NOT FASTINGPERFORMED BY: LabCoRobert Wood Johnson University HospitalFhmysy4124 [facility] [id number] TSH 1.800 {uIU/mL} (Normal) Range: 0.450-4.500 41-Pww-483571:39 URINALYSIS, W/ MICRO (21708) Comments: PATIENT NOT FASTINGPERFORMED BY: [employer] Pabefz9793 [facility] [id number] Microscopic Examination See below: (Normal) Comments: Microscopic was indicated and was performed. Nitrite, Urine Negative (Normal) Urobilinogen,Semi-Qn 0.2 mg/dL (Normal) Range: 0.0-1.9 Bilirubin Negative (Normal) Occult Blood Negative (Normal) Ketones Negative (Normal) Glucose Negative (Normal) Protein Negative (Normal) WBC Esterase 1+ (Abnormal) Appearance Clear (Normal) Urine-Color Yellow (Normal) pH 6.5 (Normal) Range: 5.0-7.5 Specific [place] 1.013 (Normal) Range: 1.005-1.030 :39 METABOLIC PANEL, COMPREHENSIVE Comments: PATIENT NOT FASTINGPERFORMED BY: [employer] Mbssvi5424 [facility] [id number] ([id number]) ALT (SGPT) 5 [iU]/L (Normal) Range: 0-32 [...] Plan of Care Name Dates Details Instructions BMI 24.0-24.9, adult : Eprescribed prescriptions (G8553) [...] prescriptions (G8553) Indication: Syncope Planned Observations CBC with auto diff ([id number])Indication: Elevated hemoglobin A1c On: 09-Rvz-195403:16 Request METABOLIC PANEL, COMPREHENSIVE (85133)Indication: Elevated hemoglobin A1c On: 59-Eao-372022:16 Request HGB A1C (07448)Indication: Elevated hemoglobin A1c On: 78-Beu-114092:16 Request LIPID PANEL (14953)Indication: Other hyperlipidemia On: 87-Yra-651364:16 Request TSH (29892)Indication: Abnormal TSH On: 17-Oaq-797229:09 Request TSH (THYROID STIMULATING HORMONE) (56339)Indication: Abnormal TSH On: 56-Iaq-569608:15 Request LIPID PANEL (70988)Indication: Other hyperlipidemia On: 77-Lth-590866:14 Request CBC with auto diff (29348)Indication: Elevated hemoglobin A1c On: 93-Yac-947865:14 Request METABOLIC PANEL, COMPREHENSIVE (51485)Indication: Elevated hemoglobin A1c On: 67-Kth-973275:14 Request HGB A1C (10055)Indication: Elevated hemoglobin A1c On: 56-Jtw-553172:14 Request CBC W/AUTO DIFF WBC (67048)Indication: Anemia On: 29-Sjt-820360:30 Request CBC with auto diff (49375)Indication: Anemia On: 63-Uyk-712463:02 Request METABOLIC PANEL, COMPREHENSIVE (52642)Indication: Impaired Fasting Glucose (Renamed from Elevated fasting blood sugar) On: 24-Gig-856390:02 Request TSH (22680)Indication: Abnormal TSH On: 75-Bdu-719597:01 Request SED RATE ERYTHROCYTE (01895)Indication: Anemia On: :58 Request C-REACTIVE PROTEIN (93914)Indication: Anemia On: :58 Request FOLIC ACID SERUM (28520)Indication: Anemia On: :58 Request VITAMIN B-12 (CYANOCOBALAMIN) (79640)Indication: Anemia On: :58 Request IGA/IGD/IGG/IGM-EACH (32098)Indication: Anemia On: 72-Bgr-398825:33 Request CBC W/AUTO DIFF WBC (42625)Indication: Impaired Fasting Glucose (Renamed from Elevated fasting blood sugar) On: 87-Yhh-282606:31 Request METABOLIC PANEL, COMPREHENSIVE (52152)Indication: Impaired Fasting Glucose (Renamed from Elevated fasting blood sugar) On: 65-Uei-415457:31 Request Vitamin D Hydroxy (51227)Indication: Other osteoporosis On: 20-Znk-790791:22 Request CBC with auto diff (87809)Indication: Anemia On: 50-Yuw-359166:22 Request TSH (THYROID STIMULATING HORMONE) (54824)Indication: Abnormal TSH On: 57-Osj-332656:21 Request HGB A1C (69803)Indication: Impaired Fasting Glucose (Renamed from Elevated fasting blood sugar) On: 84-Ady-919474:21 Request serum immunofixation (83919)Indication: Anemia On: 29-Mzp-957995:21 Request urine immunofixation (83447)Indication: Anemia On: 80-Rux-891229:21 Request LIPID PANEL (11632)Indication: Other hyperlipidemia On: 49-Ufs-572264:15 Request METABOLIC PANEL, COMPREHENSIVE (45488)Indication: Hypertension, benign On: 98-Aoo-426035:14 Request LIPID PANEL (22026)Indication: Fibromyalgia (Renamed from Diffuse myofascial pain syndrome) On: 09-Kjc-955767:14 Request TSH (THYROID STIMULATING HORMONE) (71968)Indication: Abnormal TSH On: 8-Xpn-797972:15 Request HGB A1C (07507)Indication: Impaired Fasting Glucose (Renamed from Elevated fasting blood sugar) On: :15 Request CBC with auto diff (09164)Indication: Hypertension, benign On: :15 Request METABOLIC PANEL, COMPREHENSIVE (11152)Indication: Hypertension, benign On: :15 Request LIPID PANEL (52143)Indication: Other hyperlipidemia On: :14 Request ASSAY, TROPONIN, QUANTITATIVE (aka Troponin I) (22917)Indication: Atypical chest pain On: 8-Oin-435553:02 Request TSH (50180)Indication: Abnormal TSH On: 4-Ann-949592:56 Request CBC WITH MANUAL DIFF (11497)Indication: Other specified nutritional anemias On: 0-Jnw-959426:48 Request Comments: 1 month TSH (THYROID STIMULATING HORMONE) (99294)Indication: Hypertension, benign On: 2-Kkv-448363:15 Request Iron (53292)Indication: Anemia On: 8-Gad-850707:59 Request METABOLIC PANEL, COMPREHENSIVE (61375)Indication: Other osteoporosis On: :01 Request Vitamin D Hydroxy (46259)Indication: Other osteoporosis On: :37 Request LIPID PANEL (66986)Indication: Other hyperlipidemia On: :36 Request HGB A1C (97234)Indication: Impaired Fasting Glucose (Renamed from Elevated fasting blood sugar) On: :35 Request MICROALBUMIN: CREATININE RATIO (15336) AND (46959)Indication: Impaired Fasting Glucose (Renamed from Elevated fasting blood sugar) On: :35 Request Metabolic Panel, Comprehensive (37442)Indication: Gastroenteritis On: 43-Dzo-893159:09 Request CBC, Platelets & Auto Diff (53348)Indication: Gastroenteritis On: 71-Xrq-951481:09 Request Sed Rate Erythrocyte (67436)Indication: Gastroenteritis On: 43-Kcm-359272:09 Request CBC WITH MANUAL DIFF (67780)Indication: Anemia On: 5-Aht-075266:12 Request Comments: 6 weeks TSH (14770)Indication: Abnormal TSH On: 5-Efo-874977:11 Request Comments: 6 weeks VITAMIN B-12 (CYANOCOBALAMIN) (27403)Indication: Anemia On: 78-Zly-34301:39 Request TSH (40047)Indication: Abnormal TSH On: 63-Xdw-88267:40 Request CBC W/AUTO DIFF WBC (00473)Indication: Anemia On: :40 Request TSH (00685)Indication: Abnormal TSH On: 36-Xhh-65135:25 Request Comments: ADD ON METABOLIC PANEL, COMPREHENSIVE (35897)Indication: Impaired Fasting Glucose (Renamed from Elevated fasting blood sugar) On: :43 Request Anti-TPO Antibody (40005)Indication: Abnormal TSH On: :42 Request T4, FREE (THYROXINE) (01770)Indication: Abnormal TSH On: :42 Request T3, FREE (TRIDOTHYRONINE) (29304)Indication: Abnormal TSH On: :42 Request RHEUMATOID FACTOR-QUANT (81619)Indication: Chronic right shoulder pain On: :32 Request SED RATE ERYTHROCYTE (25906)Indication: Chronic right shoulder pain On: :32 Request C-REACTIVE PROTEIN (03111)Indication: Chronic right shoulder pain On: :32 Request CBC W/AUTO DIFF WBC (72158)Indication: Hypertension, benign On: :31 Request METABOLIC PANEL, COMPREHENSIVE (85749)Indication: Hypertension, benign On: :31 Request LIPID PANEL (01383)Indication: Other hyperlipidemia On: :31 Request TSH (44174)Indication: Chest pain at rest On: :31 Request HGB A1C (02512)Indication: Impaired Fasting Glucose (Renamed from Elevated fasting blood sugar) On: 4-Txa-814447:00 Request CBC with auto diff (91105)Indication: Impaired Fasting Glucose (Renamed from Elevated fasting blood sugar) On: 0-Qgm-120179:00 Request METABOLIC PANEL, COMPREHENSIVE (18049)Indication: Impaired Fasting Glucose (Renamed from Elevated fasting blood sugar) On: 8-Obc-820371:00 Request LIPID PANEL (13816)Indication: Other hyperlipidemia On: 0-Aym-822014: Request VITAMIN B-12 (CYANOCOBALAMIN) (76032)Indication: Other specified nutritional anemias On: 5-Xyv-837658:59 Request Vitamin D Hydroxy (27755)Indication: Other osteoporosis On: 6-Ljc-934240:59 Request CBC (AUTO) (37211)Indication: Other osteoporosis On: 75-Qbu-508487:48 Request Vitamin D Hydroxy (01034)Indication: Other osteoporosis On: 34-Hkv-153795:48 Request METABOLIC PANEL, COMPREHENSIVE (46214)Indication: Other hyperlipidemia On: :48 Request LIPID PANEL (70595)Indication: Other hyperlipidemia On: :48 Request SED RATE ERYTHROCYTE (65665)Indication: Chest pain, unspecified type On: :39 Request Comments: stat C-REACTIVE PROTEIN (59413)Indication: Chest pain, unspecified type On: :39 Request Comments: stat CBC W/AUTO DIFF WBC (60565)Indication: Chest pain, unspecified type On: 52-Bvj-563491:39 Request Comments: stat Hemoglobin Glyclated (HGB A1C) (19167)Indication: Impaired Fasting Glucose (Renamed from Elevated fasting blood sugar) On: 30-Dkr-417016:50 Request URINALYSIS, W/ MICRO (75477)Indication: Hypertension, benign On: 50-Vwu-242035:49 Request CBC with auto diff ([id number])Indication: Other specified nutritional anemias On: 21-Jax-650352:49 Request METABOLIC PANEL, COMPREHENSIVE (81788)Indication: Other specified nutritional anemias On: 13-Xld-739044:49 Request LIPID PANEL (33487)Indication: Other hyperlipidemia On: 48-Roz-931422:49 Request CBC W/AUTO DIFF WBC (40158)Indication: Other specified nutritional anemias On: 22-Uqp-568955:24 Request METABOLIC PANEL, COMPREHENSIVE (79873)Indication: Other hyperlipidemia On: :24 Request LIPID PANEL (51782)Indication: Other hyperlipidemia On: :24 Request IRON ([id number])Indication: Other specified nutritional anemias On: 7-Rwa-439975:37 Request Planned Encounters Medical; [facility] 3 Month FU - On: 22-Feb-2018 13:00 [facility] Fast DO, Enrike A Fast DO, Enrike A Planned Procedures Radiology - Cervical SpineBy: Fast On: 19-Nov-2017 Intent DO, Enrike A Fast DO, Enrike A Cartoid DopplerBy: Fast DO, Enrike A On: 17-Nov-2017 Intent Fast DO, Enrike A SCREENING DIGITAL TOMOSYNTHESIS OF On: 17-Nov-2017 Intent BREAST (43247)By: Fast DO, Enrike A Fast DO, Enrike A MRI OF THORACIC SPINE WITHOUT On: 13-Aug-2017 Intent CONTRAST (81933)By: Fast DO, Enrike A Fast DO, Enrike A MRI LUMBAR SPINE W/O CONTRAST On: 13-Aug-2017 Intent (56829)By: Fast DO, Enrike A Fast DO, Enrike A INJECTION, PROLIA (J0897)By: Fast On: 26-Jul-2017 Intent DO, Enrike A Fast DO, Enrike A Comments: Prolia prefilled syringe 60mg/mlLot:[id number]:10/2019L arm SQPt tolerated wellMLONG ,CERAMIC COATER MACHINE Radiology - Lumbar SpineBy: Fast DO, On: 09-Jun-2017 Intent Enrike A Fast DO, Enrike A Radiology - Thoracic SpineBy: Fast On: 09-Jun-2017 Intent DO, Enrike A Fast DO, Enrike A MRI OF BRAIN WITH AND WITHOUT On: 13-Apr-2017 Intent CONTRAST (16763)By: Fast DO, Enrike A Fast DO, Enrike A ELECTROCARDIOGRAM, COMPLETE (ECG) On: 13-Apr-2017 Intent (53574)By: Fast DO, Enrike A Fast DO, Comments: [...] DIGITAL TOMOSYNTHESIS OF On: 30-Sep-2016 Intent BREAST (78623)By: Fast DO, Enrike A Comments: end of oct Fast DO, Enrike A CT - Chest (Without Contrast)By: On: 30-Sep-2016 Intent Fast DO, Enrike A Fast DO, Enrike A Cartoid DopplerBy: Fast DO, Enrike A On: 04-Sep-2016 Intent Fast DO, Enrike A DEXA SCAN AXIAL SKELETON (78260)By: On: 04-Sep-2016 Intent Fast DO, Enrike A Fast DO, Enrike A Comments: mid september INJECTION, PROLIA (J0897)By: Fast On: 26-Aug-2016 Intent DO, Enrike A Fast DO, Enrike A Comments: prolialot:[id number]:ite:lt subqroute:subqdose:60mg/mlD.ARNOLDO Ardon ELECTROCARDIOGRAM, COMPLETE (ECG) On: 22-Jul-2016 Intent (90750)By: Fast DO, Enrike A Fast DO, Comments: ekg showed normal sinus rhythym, normal axis, no acute st/t wave changes Enrike A Cartoid DopplerBy: Fast DO, Enrike A On: 25-May-2016 Intent Fast DO, Enrike A Comments: bilateral INFUSION, NORMAL SALINE SOLUTION , On: 09-Apr-2016 Intent 1000 CC (Special Coverage Instructions Apply. See MCM: 2049) (J7030)By: Madyson Montiel MD ELECTROCARDIOGRAM, COMPLETE (ECG) On: 12-Feb-2016 Intent (39017)By: Fast DO, Enrike A Fast DO, Comments: ekg showed normal sinus rhythym, normal axis, no acute st/t wave changes Enrike A CT - Chest (Without Contrast)By: On: 12-Feb-2016 Intent Fast DO, Enrike A Fast DO, Enrike A Flu Vaccine (Quadrivalent) 41192Wr: On: 12-Feb-2016 Intent Fast DO, Enrike A Fast DO, Enrike A Comments: FLUlot: [id number]:08/05site:Lt deltoidroute:IMdose:.5mlARNOLDO WALLACE ADMINISTRATION OF INFLUENZA VIRUS On: 12-Feb-2016 Intent VACCINE (G0008)By: Fast DO, Enrike A Fast DO, Enrike A MAMMOGRAM, SCREENING, BOTH BREAST On: 13-Nov-2015 Intent (08826)By: Fast DO, Enrike A Fast DO, Enrike [...] Intent Fast DO, Enrike A ZOSTER VACC, [place] (06546)By: Reva, On: 06-Mar-2015 Intent Elliott Comments: Zosterlot:[id number]:01/26/16ite:lt subqroute:subqDEMICK, SMA PNEUM VAC ADLT/IMUMNOSPR, SBC/INTRM On: 20-Feb-2015 Intent (75382)By: Visit, Nurse Comments: Pnuemovaxlot:[id number]:10/30/16site:lt deltoidroute:IMDose:.5mlDEMICK, SMA Flu Vaccine (Quadrivalent) 40239Jp: On: 11-Feb-2015 Intent Fast DO, Enrike A Fast DO, Enrike A Comments: Lot #:[id number] date: 08/2015Amount given:prefilled syringeSite given:L Dltd, IMGiven by: MARGOTH Garibay and ABN signed ADMINISTRATION OF INFLUENZA VIRUS On: 11-Feb-2015 Intent VACCINE (G0008)By: Fast DO, Enrike A Fast DO, Enrike A MAMMOGRAM, SCREENING, BOTH BREAST On: 25-Sep-2014 Intent (40862)By: Fast DO, Enrike A Fast DO, Enrike [...] 17-Apr-2014 Intent CHEST WITH AND WITHOUT CONTRAST (73295)By: Matt MCDUFFIE Enrike A Fast DO, Enrike A CT - Brain/HeadBy: Fast DO, Enrike A On: 16-Apr-2014 Intent Fast DO, Enrike A Doppler Ultrasound OtherBy: Fast DO, On: 16-Apr-2014 Intent Enrike A Fast DO, Enrike A EKG (41666)By: Fast DO Enrike A On: 16-Apr-2014 Intent Fast DO, [...] DO, Enrike A Instructions Name Dates Details BMI 23.0-23.9, adult : How to access [...] hyperlipidemia Syncope : Patient Instructions Indication: Syncope Encounters Phone Encounter On: 19-Nov-2017 9:16 Encounter Diagnosis: [...] lot of headaches and back pain. Seeing Landon for the headaches and doing therapy for [...] and throacic and c ervical- she saw landon in june but didnt address memory so [...] taken off arm -was benign and saw Christopehr does hae arthritis in knee he gave her [...] for copd/cough - [facility] = bp is good [...] The patient does have durable power of corporate associate attorney and l iving will (she thinks). The patient has noticed staying at home rather than doing something new or going out and lack of energy. Other providers contributing to the patient's care are facilities project manager (Dr. Cota), business intelligence administrator (Dr. 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 Villa sees eye dr mann.). Note [...] patient feels well with minor complaints (priya isnt helping with the knee pain/arthritis), has good [...] issue- [facility]: Hyperlipidemia, Unspecified (272.4), Knee Pain (Renamed [...] off this- sees Katy for cpap and landon for rome- was not taking losarten that [...] Limb swelling), Fatigue [facility] Payers [place]/Medicare Adv Olivia LOPEZ; a guarantor
--- OUTSIDE RECORDS SUMMARY | 2018-04-13 15:20 | XMS RPT_ITS | Continuity of Care Document ---
:1945 Author Organization [facility] Address [address] [place] [address] Phone Care Team Providers Name Role Phone Enrike Jaimes DO Unavailable Cipriano JC, Mike Avelar Unavailable Dayron Monique Unavailable Domenic Navarrete Hilham Unavailable Steven Carlisle MD Unavailable [facility], [facility] Unavailable Phong Graham Unavailable MONICA Ruelas Unavailable [...] Quantity: 90 {Tablet} Refills: 3 Ordered:25-Jan-2017 Matt MCDUFFIEFaviocatalian HUSAINFavio mauro DOa A Start : 25-Jan-2017 [...] 12-Jul-2017 Active Comments:Pt gets funding thru the [employer] so send a bill to either them or the pt and then they will [id number] 07/28/16 RaNITidine HCl 300 MG Oral Tablet 1 tab Tablet daily for 90 days Quantity: 90 {Tablet} Refills: 3 Ordered:25-Jan-2017 Enrike Jaimes DO, DO, Debra A Start : 25-Jan-2017 Active VITAMIN E, 400UNIT (Oral Tablet) 1 [...] 500MG (Oral Tablet) 1 (one) Tablet daily b78geit for 14 days Quantity: 14 {Tablet} Refills: 0 Ordered:23-Apr-2014 Matt MCDUFFIE Enrike HUSAINnj Favioa A Start : 23-Apr-2014 End : 07-May-2014 Inactive Comments:with probiotic PredniSONE 10 MG Oral Tablet 3 (three) Tablet pills for 3 days 2 pils for 3 days 1 pill for 3 days for 0 days Quantity: 18 {Tablet} Refills: 0 Ordered:26-Mar-2017 Matt MCDUFFIE Enrike HUSAINFavio mauro DOa A Start : 02-Feb-2017 End : 26-Mar-2017 Inactive Comments:take with food in [facility] meloxicam while on this Promethazine HCl 12.5 MG Oral Tablet 1 (one) Tablet q 6 hours prn for 0 days Quantity: 20 {Tablet} Refills: 0 Ordered:14-Apr-2016 MONICA Ruelas Start : 09-Apr-2016 End : 14-Apr-2016 Inactive Comments:twenty TRAMADOL HCL, 50MG (Oral Tablet) 1 (one) Tablet daily for 30 days Quantity: 30 {Tablet} Refills: 0 Ordered:24-Oct-2014 Matt MCDUFFIE Enrike HUSAINFavio mauro DOa A Start : 24-Oct-2014 End : 23-Nov-2014 [...] Refills: 0 Ordered:13-Nov-2014 Matt MCDUFFIE Enrike HUSAINnj MCDUFFIE Enrike A Start : 13-Nov-2014 End : [...] evualate at home with meds and afib [facility] labs. [facility] told [facility] brat diet slowly, my nurse [...] Visit Report Result: Comments: See Note; NOTES: [facility] Oncology [facility] [place] [address] OFFICE VISIT Date of Service: 01/25/18 1145 MR#: [id number] Acct: [id number] Name: LUPE LOPEZ Rep #: [id number] : 1945 From: Red Spaulding MD Age/Sex: [...] Iron supplements with Vitamin C o r Clyo juice. Check stool for FOBT. RTC 6 [...] Chronic Code Visit Office Visits / Consults: 50285 OV L3 Est 01/25/18 1153 <Electronically signed by Red Spaulding MD> Date Red Spaulding MD Cosigner Signature: Date (if applicable) CC: Enrike Jaimes DO 23-Dec-2017 Cerv Spine 2 or 3 Views Result: Comments: See Note; NOTES: [facility] Imaging Services [address] [place] [address] Cerv Spine 2 or 3 Views MR#: [id number] Acct: [id number] Name: LUPE LOPEZ Rep #: [id number] : 1945 F 72 From: Ming Odonnell MD PCP: Enrike Jaimes DO Status: REG CLI Study: Cerv Spine 2 or 3 Views Date of Exam: 12/23/17 Exam# [id number] Ordering Dr: Karla Berry PULP REFINER OPERATOR-C STUDY: X-RAY - C ERVICAL SPINE REASON [...] Fax CC: Enrike Jaimes DO; Karla Berry Database Marketing Analyst: Signed 23-Dec-2017 Thoracic Spine 2 Views Result: Comments: See Note; NOTES: [facility] Imaging Services [address] [place] [address] Thoracic Spine 2 Views MR#: [id number] Acct: [id number] Name: LUPE LOPEZ Rep #: [id number] : 1945 F 72 From: Ming Odonnell MD PCP: Enrike Jaimes DO Status: REG CLI Study: Thoracic Spine 2 Views Date of Exam: 12/23/17 Exam# [id number] Ordering Dr: Karla Berry STUDY: X-RAY - [...] CC: Enrike Jaimes DO; Karla LOPEZ Prebish Database Marketing Analyst: Signed 11-Dec-2017 Carotid Duplex Ultrasound Result: Comments: See Note; NOTES: [facility] Cardiovascular Services [address] [place] [address] Carotid Duplex Ultrasound 12/10/17 1013 MR#: [id number] Acct: [id number] Name: LUPE BOOGIE Rep #: [id number] : 1945 72 From: Brice Murphy MD [...] the left vertebral artery. Procedure Carotid Duplex 16141. Exam performed in department. Interpretation Summary Mild (<50%) stenosis right extracranial inter nal carotid. Mild (<50%) stenosis left extracranial internal carotid. Flow within the vertebral arteries is antegrade bilaterally. Ordering Physician: Enrike Jaimes Referring Physician: Enrike Jaimes Performed By: Riaz Ashley RVT and Student 12/11/17 1406 Date Brice Murphy MD CC: Enrike Jaimes DO Date Dictated: 12/10/17 1013 Date Transcribed: 12/11/17 1406 Database Marketing Analyst: Signed 10-Dec-2017 SCREENING MAMM (CAD), BILAT Result: Comments: See Note; NOTES: [facility] Imaging Services [address] [place] [address] SCREENING MAMM (CAD), BILAT MR#: [id number] Acct: [id number] Name: LUPE LOPEZ Rep #: [id number] : 1945 F 72 From: Johnny Gilman MD PCP: Enrike Jaimes DO Status: [facility] Study: SCREENING MAMM (CAD), BILAT Date of Exam: 12/10/17 Exam# [id number] Ordering Dr: Enrike Jaimes DO MAMM OGRAPHY [...] be sent to the patient by [facility] within 30 days. Approximately 10% of breast cancers are not detected by mammography. A normal mammogram should not delay biopsy of a clinically suspicious abnormality. [id number] Electronical ly Signed: Johnny Gilman MD at 13:14 EDT Tel [phone], Service support , CC: Enrike Jaimes DO Database Marketing Analyst: Signed 30-Nov-2017 Pulmonary Visit Report Result: Comments: See Note; NOTES: [facility] [address] [place] [address] OFFICE VISIT Date of Service: 11/30/17 MR#: [id number] Acct: [id number] Name: LUPE BOOGIE Rep #: [id number] : 1945 Provider: Merlin Pop MD Age/Sex: 72/F [facility] Status: Signed Assessment AND Plan Problems 1. [...] Orders: Medications Discontinued: azelastine admini ster into zddc017.5 mcg (0.14 mL) Intranasal BIDJ30.2 Merlin Pop MD nostril Discontinued Reason: Pt no longer taking HPI 6 M FU: Chief Complaint: Chronic cough Details: Patient is a 72-year-old [facility] female, currently under care of Dr. 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 This patient may have a combination of rosa maria r and electronic documentation or all paper documentation. All documentation is viewable within the e-chart portion of [employer] for each patient visit. 27-Aug-2017 Spine Lumbar (Routine) Result: Comments: See Note; NOTES: [facility] Imaging Services [address] [place] [address] Spine Lumbar (Routine) MR#: [id number] Acct: [id number] Name: LUPE LOPEZ Rep #: [id number] : 1945 F 72 From: Carlos Pizano PCP: Enrike Jaimes DO Status: REG CLI Study: Spine Lumbar (Routine) Date of Exam: 08/25/17 Exam# [id number] Ordering Dr: Enrike Jaimes DO STUDY: MRI [...] suppo rt , CC: Enrike Jaimes DO Database Marketing Analyst: Signed 11-Aug-2017 Re-Evaluation - PT (1) Result: Comments: See Note; NOTES: [facility] Physical Therapy [facility] [address] [place] [address]. [address] [place], [place] [address] Fax [facility] MR#: [id number] Acct: [id number] Name: LUPE LOPEZ Rep #: [id number] : 1945 72 From: Shanon CASTILLO Referring : Enrike Jaimes DO Status: REG RCR Insurance: AN THEM MEDICARE PPO SELF PAY INSURANCE Enrike Jaimes DO, It has been my pleasure to treat LUPE LOPEZ over the last 7 visits for LOW BACK PAIN. Please see the progress note below for an update on [facility] physical therapy plan of care! Subjective: [...] do not hesitate to contact me at [phone] by phone or if you have questions or concerns regarding this new plan of care! Sincerely, Shanon Ferrara &#60 ;Electronically signed by Shanon Ferrara MPT> 08/11/17 1913 CC: Enrike Jaimes DO Signed For Medicare only, by signing this I certify the plan of care. Physicians Signature Date 27-Jul-2017 Oncology Visit Report Result: Comments: See Note; NOTES: [facility] Oncology [address] [place] [address] [place] [address] OFFICE VISIT Date of Service: 07/27/17 1128 MR#: [id number] Acct: [id number] Name: LUPE LOPEZ Rep #: [id number] : 1945 From: Red Spaulding MD Age/Sex: [...] continue Iron supplements with Vitamin C or Clyo juice. RTC 6 months with CBC, CMP, Iron studies. Me dications: Prescriptions This Visit Medication Instructions Recorded Meloxicam [Mobic] 15 mg PO DAILY 06/16/16 Rivaroxaban [Xarelto] 20 mg PO DAILY 06/29/16 Primary Care Provider: DO Louis Stone Provider: - Problem List (1) Iron deficiency Status: Resolved Code Visit Office Visits / Consults: 70940 OV L3 Est 07/27/17 1135 <Electronically signed by Red Spaulding MD> Date Red Spaulding [facility] Signature: Date (if applicable) CC: 15-Jul-2017 Stress Report Result: Comments: See Note; NOTES: [facility] Cardiovascular Services [address] [place] [address] MR#: [id number] Acct: [id number] Name: LUPE LOPEZ Rep #: [id number] : [birth year] 72 From: Mike Cota MD [...] %. This note was g enerated with TimeGeniusation software. It may contain incorrect words, spelling, and punctuation that were not noted in checking the note before signing. 07/15/17 1311 <Electronically s igned by Mike Cota MD> Date Mike Cota MD CC: Enrike Jaimes DO; Mike Cota MD Date Dictated: 07/15/17 1307 Date Transcribed: 07/15/171306 Database Marketing Analyst: PM Signed 08-Jul-2017 Inital Evaluation (1) - PT Result: Comments: See Note; NOTES: [facility] Physical Therapy [facility] [address] [place] [address]. [address] [place] [address] Fax REHABILITATION SERVICES INITIAL EVALUATION MR#: [id number] Acct: [id number] Name: LUPE LOPEZ Rep #: [id number] [...] of Evaluat ion: 07/07/17 Physical Therapist: Domenic Aayla PT, - Visit Plan Frequency: 2x /Week [...] to be FAXED BACK to us at [phone] for Medicare purposes. Please let me know if there are questions or concerns regarding this plan of care. Physician Luther william: Date: <Electronically signed by Domenic Ayala PT, Cert. T, OCS> 07/08/17 1332 CC: Enrike Jaimes DO D HEMA Signed For Medicare only, by signing this I certify the plan of care. Physicians Signature Date 05-Jul-2017 Cardiology Visit Report Result: Comments: See Note; NOTES: [facility] [address] [place] [address] OFFICE VISIT Date of Service: 07/05/17 MR#: [id number] Acct: [id number] Name: LUPE LOPEZ Rep #: [id number] : 1945 Provider: Mike Cota MD Age/Sex: 72/F Location[place] [facility] Status: Signed HPI HPI Details: LUPE [...] Her previous diagnostic cardiac cathete rization from [facility] from 05/03/2009 is as noted below. ASSESSMENT: 1. Mild to moderate coronary atherosclerosis, non-flow limiting by angiography. 2. Presered left ruco5gechw systolic a nd diastolic function. CLINICAL CORRELATION: This Is a 64-year-old wtio presents with angina ha1ng atypical features, she has nonflowIlmTting disease hr which aggressiw medical therapy is warranted Incl uding aspirin, beta jonn, DAPHNEY Inhibitor, and statin therapy. 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 She will also follow with her console operator based on her underlying pulmonary disease process [...] disease) I25.10 Coronary Disease-Associated Arter y/Lesion type: diom[place] artery Hyperlipidemia, unspecified hyperlipidemia type E78.5 Hyperlipidemia type: unspecified Essential hypertension I10 Hypertension type: essential hypertension Chest pain, unspe cified type R07.9 Chest pain type: unspecified Coding Level of Care Code Off vis,est,level 4 Diagnoses Paroxysmal atrial fibrillation I48.0 CAD (coronary artery disease) I25.10 Coronary Disease-Assoc iated Artery/Lesion type: diomede artery Hyperlipidemia, unspecified hyperlipidemia type E78.5 Hyperlipidemia type: unspecified Essential hypertension I10 Hypertension type: essential hypertension Chest pain, unspecified type R07.9 Chest pain type: unspecified 07/05/17 1123 <Electronically signed by Mike Cota MD> Date Mike washburn MD Cosigner Signature: Date (if applicable) CC: Enrike Jamies DO 05-Jul-2017 12 Lead EKG performed by [facility] Result: Comments: See Note; NOTES: [facility] [address] [place] [address] 12 Lead EKG performed by [facility] 07/05/17 1033 MR#: [id number] Acct: [id number] Name: LUPE SANDOVAL Rep #: [id number] : 1945 72 From: Mike Cota MD Attending Dr: Mike Cota MD Status: DEP [facility] Ordering Dr: Mike Cota MD Date: 07/05/17 Location: [facility] Sex: F C Admitted: [facility]12 Lead EKG performed by [facility] ECG Report Interpretation Sinus Bradycardia -First degree A-V block Poor R wave progressionElectronically signed on 2017 at 11:45 by Mike Cota 07/05/17 1146 Date Mike Cota MD CC: Enrike Jaimes Date Dictated: 07/05/17 1033 Date Transcribed: 07/05/17 1033 Database Marketing Analyst: PM Signed 16-Jun-2017 Pulmonary Visit Report Result: Comments: See Note; NOTES: [facility] [address] [place] [address] OFFICE VISIT Date of Service: 06/16/17 MR#: [id number] Acct: [id number] Name: LUPE BOOGIE Rep #: [id number] : 1945 Provider: Kirsten Padilla Age/Sex: 72/F Location: [facility] Status: Signed Assessment AND Plan 1. 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) Moderate [...] History (Revie wed 06/16/17 @ 17:00 by JESSICA Sharma) Sister Breast [...] signed by Kirsten YEPEZC> Date Kirsten Padilla PULP REFINER OPERATOR-C Cosigner Signature: Date ___ (if applicable) CC: Enrike Jaimes DO 09-Jun-2017 L/S Spine Min 4 Views Result: Comments: See Note; NOTES: [facility] Imaging Services [address] [place] [address] L/S Spine Min 4 Views MR#: [id number] Acct: [id number] Name: LUPE LOPEZ Rep #: [id number] : 1945 F 72 From: Brennan Mike DO PCP: Enrike Jaimes DO Status: REG CLI Study: L/S Spine Min 4 Views Date of Exam: 06/09/17 Exam# [id number] Ordering Dr: Enrike Jaimes DO STUDY: X-RAY [...] Brennan Mike DO at 16:29 EDT Tel [phone], Service support , Fax CC: Enrike Jaimes DO Database Marketing Analyst: Signed 09-Jun-2017 Thoracic Spine 3 Views Result: Comments: See Note; NOTES: [facility] Imaging Services [address] [place] [address] Thoracic Spine 3 Views MR#: [id number] Acct: [id number] Name: LUPE LOPEZ Rep #: [id number] : 1945 F 72 From: Jose Antonio Jensen PCP: Enrike Jaimes DO Status: REG CLI Study: Thoracic Spine 3 Views Date of Exam: 06/09/17 Exam# [id number] Ordering Dr: Enrike Jaimes DO STUDY: X-RAY [...] suppo rt , CC: Enrike Jaimes DO Database Marketing Analyst: Signed 19-Apr-2017 Brain W/WO Contrast Result: Comments: See Note; NOTES: [facility] Imaging Services [address] [place] [address] Brain W/WO Contrast MR#: [id number] Acct: [id number] Name: LUPE LOPEZ Rep #: [id number] : 1945 F 72 From: Steven Ratliff MD PCP: Enrike Jaimes DO Status: REG CLI Study: Brain W/WO Contrast Date of Exam: 04/19/17 Exam# [id number] Ordering Dr: Enrike Jaimes DO STUDY: MRI [...] Service support , CC: Enrike Jaimes DO Database Marketing Analyst: Signed 05-Jan-2017 Hepatobilliary Img w/Pharm Int Result: Comments: See Note; NOTES: [facility] Imaging Services [address] [place] [address] [place] [address] Hepatobilliary Img w/Pharm Int MR#: [id number] Acct: [id number] Name: LUPE LOPEZ Rep # : [id number] : 1945 F 71 From: Dom Sorto DO PCP: Enrike Jaimes DO Status: REG CLI Study: Hepatobilliary Img w/Pharm Int Date of Exam: 01/05/17 Exam# [id number] Ordering Dr: Enrike Jaimes DO CLI NICAL: [...] Service support , CC: Enrike Jaimes DO Database Marketing Analyst: Signed 23-Dec-2016 Gallbladder Result: Comments: See Note; NOTES: [facility] Imaging Services [address] [place] [address] Gallbladder MR#: [id number] Acct: [id number] Name: LUPE LOPEZ Rep #: [id number] : F 71 From: Terri Dash MD PCP: Enrike Jaimes DO Status: REG CLI Study: Gallbladder Date of Exam: 12/23/16 Exam# [id number] Ordering Dr: Enrike Jaimes DO US Gallbladder [...] Service support , CC: Enrike Jaimes DO Database Marketing Analyst: Signed 19-Nov-2016 SCREENING MAMM (CAD), BILAT Result: Comments: See Note; NOTES: [facility] Imaging Services [address] [place] [address] SCREENING MAMM (CAD), BILAT MR#: [id number] Acct: [id number] Name: LUPE LOPEZ Rep #: [id number] : 1945 F 71 From: Johnny Gilman MD PCP: Enrike Jaimes DO Status: REG CLI Study: SCREENING MAMM (CAD), BILAT Date of Exam: 11/19/16 Exam# [id number] Ordering Dr: Enrike Jaimes DO MAMM OGRAPHY [...] Johnny Gilman MD at 11:14 EDT Tel [phone], Service support , CC: Enrike Jaimes DO Database Marketing Analyst: Signed 17-Nov-2016 6 Minute Walk Test Result: Comments: See Note; NOTES: [facility] Pulmonary Services/Neurology [address] [place] [address] MR#: [id number] Acct: [id number] Name: LUPE LOPEZ Rep #: [id number] : 1 04/14/1944 71 From: Merlin Pop MD Referring Dr: Kirsten Padilla PULP REFINER OPERATOR Date: Ordering Dr: Sex: F C Location: PSN PSN 6 Minute Walk Test - 6 Minute Walk Test 6 Minute Walk Test: 6 Minute Walk Test PS N:6-Minute Walk Test Start: 11/17/16 11:09 Freq: Status: Active Document 11/17/16 11:00 HG (Rec: 11/17/16 11:11 HG [id number]) 6 Minute Walk Test Date Performed 11/17/16 [...] CC: Date Dictated: 11/17/161548 Date Transcribed: 11/17/161548 Database Marketing Analyst: Merlin Pop Signed 12-Nov-2016 Pulmonary Function Report Comp Result: Comments: See Note; NOTES: [facility] Pulmonary Services/Neurology [address] [place] [address] MR#: [id number] Acct: [id number] Name: LUPE LOPEZ Rep #: [id number] : 71 From: Merlin Pop MD Referring Dr: Kirsten Padilla PULP REFINER OPERATOR Status: REG CLI Ordering Dr: Date: Location: [facility] Sex: F C COMPLETE PULMONARY FUNCTION TEST INTERPRETATION Brief HPI: Patient is a 71 year old female, currently under the care of myself, who presents to [facility] for complete pulmonary function tests secondary [...] Pop MD; Enrike Jaimes DO Date Dictated: 11/12/161532 Date Transcribed: 11/12/161532 Database Marketing Analyst: EDENILSON Signed 06-Oct-2016 Chest without Contrast Result: Comments: See Note; NOTES: [facility] Imaging Services [address] [place] [address] Obduliadana 4d Chest without Contrast MR#: [id number] Acct: [id number] Name: LUPE LOPEZ p #: [id number] : 1945 F 71 From: Sonam Hendricks MD PCP: Enrike Jaimes DO Status: REG CLI Study: Chest without Contrast Date of Exam: 10/06/16 Exam# [id number] Ordering Dr: Enrike Jaimes DO STUDY: CT [...] Sonam Hendricks MD at 23:59 EDT Tel [phone], Service support , CC: Enrike Jaimes DO Database Marketing Analyst: Signed 29-Sep-2016 Dexa Bone Density Study (HP) Result: Comments: See Note; NOTES: [facility] Imaging Services [address] [place] [address] Verdana 4d Dexa Bone Density Study (HP) MR#: [id number] Acct: [id number] Name: BRAYDON LOPEZ Rep #: [id number] : 1945 F 71 From: Johnny Gilman MD PCP: Enrike Jaimes DO Status: REG CLI Study: Dexa Bone Density Study (HP) Date of Exam: 09/29/16 Exam# [id number] Ordering Dr: Szymanski DO STUDY: DUAL ENERGY [...] Johnny Gilman MD at 9:38 EDT Tel [phone], Service support , CC: Enrike Jaimes DO Database Marketing Analyst: Signed 19-Sep-2016 Carotid Duplex Ultrasound Result: Comments: See Note; NOTES: [facility] Cardiovascular Services [address] [place] [address] Carotid Duplex Ultrasound 09/18/16 1406 MR#: [id number] Acct: [id number] Name: CARMEN HILLCHASECatalina Rep #: [id number] : 1945 71 From: Brice Murphy MD [...] the left vertebral artery. Procedure Carotid Duplex 42803. The exam was diagnostic. Exam performed in [facility]. Interpretation Summary Mild (<50%) stenosis [...] Dictated: 09/18/16 1406 Date Transcribed: 09/19/16 0944 Database Marketing Analyst: Signed 16-Sep-2016 PT D/C Summary (1) Result: Comments: See Note; NOTES: [facility] Physical Therapy [facility] [address] [place] [address]. [address] [place] [address] Fax [facility] MR#: [id number] Acct: [id number] Name: LUPE LOPEZ Rep #: [id number] [...] was a series of botox injections but janamary escobedo does not comever that. Doing HEP [...] PT (1) Result: Comments: See Note; NOTES: [facility]. [address] [place] [address] Fax REEVALUATION / MEDICARE RECERTI KALEN Solomon 4d PHYSICAL THERAPY MR#: [id number] Acct: [id number] Name: LUPE LOPEZ Rep #: [id number] : 1945 71 From: Shanon CASTILLO Referring Dr.: Enrike Fast DO Status: REG RCR Insu erika: [employer] MED[employer] PPO Enrike Jaimes, DO, It has been my pleasure to treat LUPE LOPEZ over the last 8 visits for Neck Pain. Please see the progress note below for an update on the [facility] plan of care! Subjective: Pt reports that [...] do not hesitate to contact me at [phone] by phone or if you have questions or concerns reg arding this new plan of care! Sincerely, Shanon Ferrara <Electronically signed by Shanon Ferrara MPT> 08/26/16 1827 CC: Enrike Jaimes DO Signed For Medic are only, by signing this I certify the plan of care. Physicians Signature Date 28-Jul-2016 Inital Evaluation (1) - PT Result: Comments: See Note; NOTES: [facility] Physical Therapy [facility] [address] [place] [address]. [address] [place] [address] Fax REHABILITATION SERVICES INITIAL EVALUATION MR#: [id number] Acct: [id number] Name: LUPE LOPEZ Rep #: [id number] : 1945 71 From: Shanon CASTILLO Referring DrBrooke: Enrike Jaimes DO Status: REG RCR Insurance: [facility] Patient's Visit Information LUPE LOPEZ is a [...] to be FAXED BACK to us at [phone] for Medicare purposes. Please let me know if there are questions or reza rns regarding this plan of care. Physician Signature: Date: <Electronically signed by Shanon Ferrara MPT> 07/28/16 1629 CC: Enrike Jaimes DO Signed For Medicare only, by signing this I certify the plan of care. Physicians Signature Date 08-Jul-2016 Oncology Progress Note Result: Comments: See Note; NOTES: [facility] Medical Records Department [address] [place] [address] Oncology Progress Note MR#: [id number] Acct: [id number] Name: LUPE LOPEZ Rep #: [id number] : 1945 71 From: Red Spaulding MD [...] folate. Red Spaulding MD T: NTS JOB: [id number] 07/08/16 1043 <Electronically signed by Red Spaulding MD> Date Red Spaulding MD Cosigner Signature (If Indicated): Date CC: Date Dictated: 06/20 Date Transcribed: 06/30/162251 Database Marketing Analyst: Signed 21-Feb-2016 Chest without Contrast Result: Comments: See Note; NOTES: [facility] Imaging Services [address] [place] [address] Verdana 4d Chest without Contrast MR#: [id number] Acct: [id number] Name: LUPE LOPEZ p #: [id number] : 1945 F 71 From: Barrett Small MD PCP: Enrike Jaimes DO Status: REG CLI Study: Chest without Contrast Date of Exam: 02/21/16 Exam# [id number] Ordering Dr: Enrike Jaimes DO STUDY : [...] last 16 months. Based on [facility], suggested follow-up for a 4-6 mm lung [...] MD at 2:43 EST , Service support [phone], CC: Enrike Jaimes DO Database Marketing Analyst: Signed 08-Dec-2015 Pulmonary Function Report Comp Result: Comments: See Note; NOTES: [facility] Pulmonary Services/Neurology [address] [place] [address] Pulmonary Function Test (Comp) MR#: [id number] Acct: [id number] Name: Oliver LOPEZ Rep #: [id number] : 1945 70 From: Merlin Pop MD Referring Dr: Kirsten Padilla PULP REFINER OPERATOR Status: REG CLI Ordering Dr: Kirsten Padilla PULP REFINER OPERATOR-C Date: 12/06/15 Location: N Sex: F C DATE OF S ERVICE: 12/06/2015 BRIEF HISTORY OF PRESENT ILLNESS: The patient is a 70-year-old female, currently under the care of iKrsten Padilla, who presents for complete pulmonary function [...] patient's primary care physician T: NTS JOB: [id number] 12/08/15 0651 <Electronically signed by Merlin Pop MD> Date __ Merlin Pop MD CC: Merlin Pop MD; Kirsten Padilla; Enrike Jaimes DO Date Dictated: 12/07/15 1235 Date Transcribed: 12/07/15 1235 Database Marketing Analyst: Signed 19-Nov-2015 Bilat Scrn Digital AND CAD Result: Comments: See Note; NOTES: [facility] Imaging Services [address] [place] [address] Verdana 4d Bilat Scrn Digital AND CAD MR#: [id number] Acct: [id number] Name: DYLAN LOPEZ Rep #: [id number] : 1945 F 70 From: Johnny Gilman MD PCP: Enrike Jaimes DO Status: REG CLI Study: Bilat Scrn Digital AND CAD Date of Exam: 11/19/15 Exam# [id number] Ordering Dr: Enrike Jaimes DO MAMMOGRAPHY - [...] delay biopsy of a clinically suspicious abnormality. [id number] Electronically Signed: Johnny Gilman MD at 8:15 ED T Tel [phone], Service support [phone], CC: Enrike Jaimes DO Database Marketing Analyst: Signed 07-Oct-2015 Knee 4 or More Views Result: Comments: See Note; NOTES: [facility] Imaging Services [address] [place] [address] Verda 4d Knee 4 or More Views MR#: [id number] Acct: [id number] Name: LUPE LOPEZ Rep #: [id number] : 1945 F 70 From: Johnny Gilman MD PCP: Enrike Jaimes DO Status: REG CLI Study: Knee 4 or More Views Date of Exam: 10/07/15 Exam# [id number] Ordering Dr: Yamileth Jaimes DO STUDY: X-RAY [...] IMPRESSION: Minimal joint effusion. Electronically Signed: Johnny Gimlan MD at 13:02 EDT Tel [phone], Service support [phone], RAD/Knee 4 or More Views IMPRESSION: Minimal joint effusion. Electronically Signed: Johnny Gilman MD at 13:02 EDT Tel [phone], Service support [phone], CC: Enrike Jaimes DO Database Marketing Analyst: Signed 27-Aug-2015 PT D/C Summary (1) Result: Comments: See Note; NOTES: [facility] Physical Therapy [facility] [address] [place], [place] [address] Fax REHABILITATION SE RVICES DISCHARGE SUMMARY MR#: [id number] Acct: [id number] Name: LUPE LOPEZ Rep #: [id number] : 1945 70 From: Domenic Ayala PT, [...] feel free to c all me at [phone]. Thank you for the referral of this patient. Sincerely, Domenic Ayala <Electronically signed by Domenic Ayala PT, Cert. JCT> 08/27/15 1406 CC: Enrike Jaimes DO Signed 06-Aug-2015 Inital Evaluation (1) - PT Result: Comments: See Note; NOTES: [facility] Physical [facility]. [address] [place] [address] Fax REHABILITATION SE RVICES INITIAL EVALUATION MR#: [id number] Acct: [id number] Name: LUPE LOPEZ Rep #: [id number] : 1945 70 From: Cert. BABITA Bonilla [...] to be FAXED BACK to us at [phone] for Medicare purposes. Please let me know [...] 5 Views Result: Comments: See Note; NOTES: [facility] Imaging Services [address] [place] [address] Verdana 4d Cerv Spine 4 or 5 Views MR#: [id number] Acct: [id number] Name: LUPE MCCARTHY Rep #: [id number] : 1945 F 70 From: Vu Hankins MD PCP: Enrike Jaimes DO Status: REG CLI Study: Cerv Spine 4 or 5 Views Date of Exam: 07/30/15 Exam# [id number] Ordering Dr: Szymanski DO STUDY: X-RAY - [...] MD at 17:12 EDT , Service support [phone], RAD/Cerv Spine 4 or 5 Views IMPRESSION: Diffuse oste openia with moderate cervical spondylosis. Electronically Signed: Vu Hankins MD at 17:12 EDT , Service support [phone], CC: Enrike Jaimes DO Database Marketing Analyst: Signed 30-Jul-2015 Shoulder min 2 Views Result: Comments: See Note; NOTES: [facility] Imaging Services [address] [place] [address] [facility] 4d Shoulder min 2 Views MR#: [id number] Acct: [id number] Name: LUPE LOPEZ Rep #: [id number] : 1945 F 70 From: Vu Hankins MD PCP: Enrike Jaimes DO Status: REG CLI Study: Shoulder min 2 Views Date of Exam: 07/30/15 Exam# [id number] Ordering Dr: Enrike Jaimes DO STUDY: X-RAY [...] at 17:12 EDT Tel , Service support [phone], RAD/Shoulder min 2 Views IMPRESSION: Normal x-ray examination of the shoulder. Electronically Signed: Vu Hankins MD 07/29 at 17:12 EDT , Service support [phone], CC: Enrike Jaimes DO Database Marketing Analyst: Signed 02-Jul-2015 Chest PA and Lateral Result: Comments: See Note; NOTES: [facility] Imaging Services [address] [place] [address] Verda 4d Chest PA and Lateral MR#: [id number] Acct: [id number] Name: LUPE LOPEZ Rep #: [id number] : 1945 F 70 From: Johnny Gilman MD PCP: Enrike Jaimes DO Status: REG CLI Study: Chest PA and Lateral Date of Exam: 07/02/15 Exam# [id number] Ordering Dr: Yamileth Jaimes DO STUDY: X-RAY [...] Johnny Gilman MD at 11:24 EDT Tel [phone], Service support [phone], RAD/Chest PA and Lateral IMPRESSION: The previously seen right upper lobe infiltrate rome s resolved. No acute abnormality is seen at this time. Electronically Signed: Johnny Gilman MD at 11:24 EDT Tel [phone], Service support [phone], CC: Enrike Jaimes DO Database Marketing Analyst: Signed 02-Jul-2015 ELECTROCARDIOGRAM, COMPLETE (ECG) (18434) Comments: ekg showed normal sinus rhythym, normal axis, no acute st/t wave changes sinus maggie Result: [MEASUREMENTS ANALYSIS] Date of Test: 07/02/2015 10:18:39; Heart Rate: 56; LA Interval: 222; QRS: 100; QT Interval: 448; Corrected QT Interval (QTc): 441; P Wave Walters: 90; QRS Wave Walters: 6; T Wave Walters: 18; Blood Pressure: 156/64 [ECG DIAGNOSTIC STATEMENTS] Date of Test: 07/02/2015 10:18:39; Summary: Sinus Bradycardia -First degree A-V block Tessy = 222BORDERLINE RHYTHM 02-Jul-2015 Spirometry (62033) Comments: good effort and curve normal Result: 24-Jun-2015 Venous Duplex Lower Extremity Result: Comments: See Note; NOTES: [facility] Cardiovascular Services [address] [place] [address] Venous Duplex US - Ibrahima Extrem 06/24/15 1102 MR#: [id number] Acct: [id number] Name: LUPE LOPEZ Rep #: [id number] : 1945 70 From: Brice Murphy MD [...] Date Dictated: 06/24/15 1102 Date Transcribed: 06/24/151907 Database Marketing Analyst: Signed 20-Jun-2015 CTA Chest W/WO Contrast Result: Comments: See Note; NOTES: [facility] Imaging Services [address] [place] [address] Obduliadamiguel angel 4d CTA Chest W/WO Contrast MR#: [id number] Acct: [id number] Name: LUPE MCCARTHY Rep #: [id number] : 1945 F 70 From: Johnny Gilman MD PCP: Enrike Jaimes DO Status: REG ER Study: CTA Chest W/WO Contrast Date of Exam: 06/20/15 Exam# [id number] Ordering Dr: Sonam Colon MD STUDY: CTA [...] Johnny Gilman MD at 15:25 EDT Tel [phone], Service support [phone], CC: Enrike Jaimes DO; Sonam Sheth MD Database Marketing Analyst: Signed 20-Jun-2015 Chest 1 View (Portable) Result: Comments: See Note; NOTES: [facility] Imaging Services [address] [place] [address] Verdana 4d Chest 1 View (Portable) MR#: [id number] Acct: [id number] Name: LUPE MCCARTHY Rep #: [id number] : 1945 F 70 From: Johnny Gilman MD PCP: Enrike Jaimes DO Status: REG ER Study: Chest 1 View (Portable) Date of Exam: 06/20/15 Exam# [id number] Ordering Dr: Sonam Colon MD STUDY: X-RAY [...] Johnny Gilman MD at 13:07 EDT Tel [phone], Se rvice support [phone], RAD/Chest 1 View (Portable) IMPRESSION: Focal infiltration in the right upper lobe. Electronically Signed: Johnny Gilman MD at 13:07 EDT Tel [phone], Service support [phone], CC: Enrike Jaimes DO; Sonam Sheth MD Database Marketing Analyst: Signed 20-Jun-2015 ELECTROCARDIOGRAM, COMPLETE (ECG) (76456) Result: [MEASUREMENTS ANALYSIS] Date of Test: 06/20/2015 10:36:19; Heart Rate: 61; LA Interval: 216; QRS: 100; QT Interval: 426; Corrected QT Interval (QTc): 427; P Wave Walters: 62; QRS Wave Walters: 8; T Wave Walters: 28; Blood Pressure: 160/62 [ECG DIAGNOSTIC STATEMENTS] Date of Test: 06/20/2015 10:36:19; Summary: Sinus Rhythm WITHIN NORMAL LIMITS 15-Jun-2015 Echocardiogram Complete Result: Comments: See Note; NOTES: [facility] Cardiovascular Services [address] [place] [address] Echo Complete 06/12/15 1110 MR#: [id number] Acct: [id number] Name: LUPE PHILLIPS Rep #: [id number] : 1945 70 From: Mike Cota MD Attending Dr: Mike Cota MD Status: PRE CLI Ordering Dr: Mike Cota MD Date: 06/12/15 Location: [facility] Sex: F C Admit benjamin: Reason For Study: CAD/ASHD Procedure This was a 2D Doppler, Color Flow transthoracic echocardiogram. The exam was of adequate technical quality. Exam performed in department. PT did NOT take am HTN med, will take as soon as she gets home and monitor her BP this afternoon. Instructed to call [facility] if systolic BP does not [...] Dictated: 06/12/15 1110 Date Transcribed: 06/15/15 1226 Database Marketing Analyst: Signed 13-Jun-2015 History and Physical Exam Result: Comments: See Note; NOTES: [facility] Medical Records Department [address] [place] [address] History and Physical 06/13/15 1251 MR#: [id number] Acct: [id number] Name: LUPE LOPEZ Rep #: [id number] : 1945 70 From: Jess Sparrow MD [...] surgery. 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 Lives: Spouse/ Significant Other Smoking Status: [...] % (Auto) 51.1 Lymph % (Auto) 33.9 Cheyenne % (Auto) 11.5 H Eos % (Auto) [...] Cosigner Signature (if applicable): Date CC: Enrike Fast DO; Jess Sparrow Signed 13-Jun-2015 Chest 1 View (Portable) Result: Comments: See Note; NOTES: [facility] Imaging Services [address] [place] [address] Verdana 4d Chest 1 View (Portable) MR#: [id number] Acct: [id number] Name: LUPE MCCARTHY Rep #: [id number] : 1945 F 70 From: Vu Hankins MD PCP: Enrike Jaimes DO Status: REG ER Study: Chest 1 View (Portable) Date of Exam: 06/13/15 Exam# [id number] Ordering Dr: Jessie Ogden MD STUDY: X-RAY [...] MD at 10:55 EDT , Service support [phone], RAD/Chest 1 View (Port able) IMPRESSION: Cardiomegaly with mild hyperexpansion. No acute or active cardiopulmonary disease. Electronically Signed: Vu Hankins MD at 10:55 EDT , Service sup port [phone], CC: Enriek Jaimes DO; Kane Ogden MD Database Marketing Analyst: Signed 13-Jun-2015 CTA Chest W/WO Contrast Result: Comments: See Note; NOTES: [facility] Imaging Services [address] [place] [address] Verdana 4d CTA Chest W/WO Contrast MR#: [id number] Acct: [id number] Name: LUPE MCCARTHY Rep #: [id number] : 1945 F 70 From: Johnny Gilman MD PCP: Enrike Jaimes DO Status: REG ER Study: CTA Chest W/WO Contrast Date of Exam: 06/13/15 Exam# [id number] Ordering Dr: Kane Lujan MD STUDY: CTA [...] verbally conveyed by Johnny Gilman MD to [facility] ED RN, on 06/13/2015 12:08:48 (ET). Electronically Signed: Johnny Gilman MD at 12:08 EDT Tel [phone], Service support [phone], N.B. : The above information has been verbally conveyed by Johnny Gilman MD to [facility] ED RN, on 06/13/2015 12:08:48 (ET). CC: Debr a Fast DO; Kane Ogden MD Database Marketing Analyst: Signed 13-Jun-2015 EKG (86974) Comments: nsr no acute chg Result: [MEASUREMENTS ANALYSIS] Date of Test: 06/13/2015 09:41:07; Heart Rate: 71; LA Interval: 194; QRS: 96; QT Interval: 420; Corrected QT Interval (QTc): 439; P Wave Walters: 68; QRS Wave Walters: 2; T Wave Walters: 29; Blood Pressure: 140/70 [ECG DIAGNOSTIC STATEMENTS] Date of Test: 06/13/2015 09:41:07; Summary: Sinus Rhythm WITHIN NORMAL LIMITS 23-May-2015 Carotid Duplex Ultrasound Result: Comments: See Note; NOTES: [facility] Cardiovascular Services [address] [place] [address] Carotid Duplex Ultrasound 05/23/1514 MR#: [id number] Acct: [id number] Name: LUPE LOPEZ Rep #: [id number] : 1945 70 From: Brice Murphy MD Attending Dr: Enrike Jaimes DO Status: REG CLI Ordering Dr: Enrike Jaimes DO Date: 05/23/15 Location: [facility] Sex: F C Adm itted: Reason For [...] the left vertebral artery. Procedure Carotid Duplex 15379. The exam was diagnostic. Exam performed in department. Interpretatio n Summary Mild (<50%) stenosis right extracranial internal carotid. Mild (<50%) stenosis left extracranial internal carotid. Flow within the vertebral arteries is antegrade bilaterall y. There has been no significant change since a prior study on 05/03/2014. Ordering Physician: Enrike Jaimes Performed By: Rufino Ashley RVT 05/23/15 2330 Date Brice Hoyt rn, MD CC: Enrike Jaimes DO Date Dictated: 05/23/1514 Date Transcribed: 05/23/15 233 Database Marketing Analyst: Signed 23-May-2015 Nuclear Stress Test - Treadmil Result: Comments: See Note; NOTES: [facility] Imaging Services [address] [place] [address] Verdana 4d Nuclear Stress Test - Treadmil MR#: [id number] Acct: [id number] N ruel: LUPE LOPEZ Rep #: [id number] : 1945 70 From: Mike Cota MD [...] LVEF of 72%. Mike Cota MD T: [facility] JOB: [id number] 05/23/152009 <Electronically signed by Mike Cota MD> Date Mike Cota MD CC: Enrike Jaimes DO Date Dictated: 05/23/15 1023 Date Transcribed: 05/23/15 1023 Database Marketing Analyst: Signed 20-May-2015 ELECTROCARDIOGRAM, COMPLETE (ECG) (16735) Comments: ekg showed normal sinus rhythym, normal axis, no acute st/t wave changes Result: [MEASUREMENTS ANALYSIS] Date of Test: 05/20/2015 11:04:03; Heart Rate: 63; LA Interval: 210; QRS: 99; QT Interval: 408; Corrected QT Interval (QTc): 413; P Wave Walters: 56; QRS Wave Walters: 10; T Wave Walters: 27; Blood Pressure: 152/76 [ECG DIAGNOSTIC STATEMENTS] Date of Test: 05/20/2015 11:04:03; Summary: Sinus Rhythm WITHIN NORMAL LIMITS 11-Apr-2015 12 Lead Electrocardiogram Result: Comments: See Note; NOTES: [facility] Cardiovascular Services [address] [place] [address] 12 Lead EKG 03/28/15 1548 MR#: [id number] Acct: [id number] Name: LUPE BOOGIE Rep #: [id number] : 1945 70 From: Mike Cota MD [...] Normal ECG Confirmed by CIPRIANO JC, MIKE ([id number]), news videotape editor TERRI DIOP ([id number]) on 04/11/2015 2:14:19 PM Referred By: CHRISTOPHER Confirmed By:MIKE COTA MD 04/11/15 141 4 Date Mike Cota MD CC: Enrike Jaimes DO Date Dictated: 03/28/15 1548 Date Transcribed: 03/28/15 154 Database Marketing Analyst: Signed 25-Dec-2014 Pulmonary Function Report Comp Result: Comments: See Note; NOTES: [facility] Pulmonary Services/Neurology [address] [place] [address] Pulmonary Function Test (Comp) MR#: [id number] Acct: [id number] Name: LUPE PHILLIPS Rep #: [id number] : 1945 69 From: Merlin Pop MD Referring Dr: Merlin Pop MD Status: REG CLI Ordering Dr: Merlin Pop MD Date: 11/27/14 Location: [facility] Sex: F C DATE OF SERVICE: [...] volumes. MERLIN POP MD T: NTS JOB: [id number] . Date: 11/28/14 Tech.: Temp: PBar: Height(in.): Weight(lbs.): Diagnosis: Medication: : Dyspnea Rest: Dyspnea Exercise: Cough: Productive (cc): Persistent: Smoker: How Long (pk/yrs): Stopped (yrs): Cigarettes: Cigars: 1 1438 <Electronically signed by Merlin Pop MD> Date Merlin Pop MD CC: Merlin Pop MD; Enrike Jaimes DO Date Dictated: 11/03 Date Transcribed: 11/27/141628 Database Marketing Analyst: Signed 23-Oct-2014 PT Discharge Summary Result: Comments: See Note; NOTES: [facility] Physical Therapy [facility] [address] [place] [id number] Fax REHABILITATION SERVICES DISCHARGE SUMMARY MR#: [id number] Acct: [id number] Name: LUPE LOPEZ Rep #: [id number] : 1945 69 From: Barbie Mcguire Referring [...] independent with a home exercise program with [employer]ne[employer]. Barbie Mcguire DPT T: [facility] JOB: [id number] <Electronically signed by Monika Mcguire > 10/23/14 1021 CC: Signed 23-Oct-2014 Chest WITH Contrast Result: Comments: See Note; NOTES: [facility] Imaging Services [address] [place] [address] CAT Scan Report MR#: [id number] Acct: [id number] Name: LUPE LOPEZ Rep #: [id number] : 1945 F 69 From: Johnny Gilman MD PCP: Enrike Jaimes DO Status: REG CLI Study: Chest WITH Contrast Date of Exam: 10/23/14 Exam# [id number] Ordering Dr: Merlin Pop MD STUDY: CT [...] Johnny Gilman MD at 14:28 EDT Tel [phone], Service support [phone], Fax CC: Merlin Pop MD; Enrike Jaimes DO Database Marketing Analyst: Signed 02-Oct-2014 Bilat Scrn Digital AND CAD Result: Comments: See Note; NOTES: [facility] Imaging Services [address] [place] [address] Breast Imaging Report MR#: [id number] Acct: [id number] Name: LUPE LOPEZ Rep #: [id number] : 1945 F 69 From: Johnny Gilman MD PCP: Enrike Jaimes DO Status: REG CLI Study: Bilat Scrn Digital AND CAD Date of Exam: 10/02/14 Exam# [id number] Ordering Dr: Enrike Jaimes DO MAMMOGRAPHY - [...] be sent to the patient by the facili ty within 30 days. Approximately 10% of breast cancers are not detected by mammography. A normal mammogram should not delay biopsy of a clinically suspicious abnormality. Electronically Signed: Isma Gilman MD at 12:54 EDT Tel [phone], Service support [phone], CC: Enrike Jaimes DO Database Marketing Analyst: Signed 27-Sep-2014 Inital Evaluation - PT Result: Comments: See Note; NOTES: [facility] [address] [place] [address]. [address] [place] [address] Fax REHABILITATION SERVICES INITIAL EVALUATION MR#: [id number] Acct: [id number] Name: LUPE LOPEZ Rep #: [id number] : 1945 69 From: Barbie Mcguire Referring [...] no stent that she does see a sample puller. MEDICATIONS: The patient has a list if [...] fair. The patient will benefit from [facility] physical therapy to solve the following [...] with decreased pain. Barbie Mcguire DPT T: NTS JOB: [id number] <Electronically signed by Barbie Mcguire > 09/27/14 0823 CC: Signed For Medicare only, by signing this I certify the plan of care. Physicians Signature Date 14-Jun-2014 Knee 4 or More Views Result: Comments: See Note; NOTES: [facility] Imaging Services [address] [place] [address] Radiology Report MR#: [id number] Acct: [id number] Name: LUPE LOPEZ Rep #: [id number] : 1945 F 69 From: Frank Sewell MD PCP: Enrike Jaimes DO Status: REG CLI Study: Knee 4 or More Views Date of Exam: 06/14/14 Exam# [id number] Ordering Dr: Enrike Jaimes DO STUDY: X-R [...] at 7:48 EDT Tel , Service support [phone], CC: Enrike Jaimes DO Database Marketing Analyst: Signed 14-Jun-2014 Knee 4 or More Views Result: Comments: See Note; NOTES: [facility] Imaging Services [address] [place] [address] Radiology Report MR#: [id number] Acct: [id number] Name: LUPE LOPEZ Rep #: [id number] : 1945 F 69 From: Frank Sewell MD PCP: Enrike Jaimes DO Status: REG CLI Study: Knee 4 or More Views Date of Exam: 06/14/14 Exam# [id number] Ordering Dr: Enrike Jaimes DO STUDY: X-R [...] at 7:50 EDT Tel , Service support [phone], RAD/Knee 4 or More Views IMPRESSION: Mild relative narrowing of the medial co mpartment joint space left knee. Generalized osteopenia. Electronically Signed: Ming Sewell MD at 7:50 EDT Tel , Service support [phone], CC: Enrike Jaimes DO Database Marketing Analyst: Signed 16-May-2014 Carotid Duplex Ultrasound Result: Comments: See Note; NOTES: [facility] Cardiovascular Services [address] [place] [address] 05/03/14 1014 MR#: [id number] Acct: [id number] Name: LUPE LOPEZ Rep #: [id number] : 1945 69 From: Brice Murphy MD Attending Dr: Enrike Jaimes DO Status: REG CLI Ordering Dr: Date: 05/16/14 Location: [facility] Sex: F C Admitted: Rt. Velocities/BP Lt. [...] left ve rtebral artery. Procedure Carotid Duplex 22834. The exam was diagnostic. Exam performed in department. Interpretation Summary Mild (<50%) stenosis right extracranial internal carotid. Mild (<50%) stenosis left extracranial internal carotid. Flow within the vertebral arteries is antegrade bilaterally. ___ Ordering Physician: Enrike Jaimes D.O. Performed By: Rufino Ashley, RVT 05/03/14 1107 Date ____ Brice Murphy MD CC: Enrike Jaimes DO Date Dictated: 05/03/14 1014 Date Transcribed: 05/03/14 110 Database Marketing Analyst: Signed 23-Apr-2014 Spirometry (05330) Comments: good effort and curve normal Result: 17-Apr-2014 Brain/Head W/WO Contrast Result: Comments: See Note; NOTES: [facility] Imaging Services [address] [place] [address] CAT Scan Report MR#: [id number] Acct: [id number] Name: LUPE LOPEZ Rep #: [id number] : 1945 F 69 From: Johnny Gilman MD PCP: Enrike Jaimes DO Status: REG CLI Study: Brain/Head W/WO Contrast Date of Exam: 04/17/14 Exam# [id number] Ordering Dr: Enrike Jaimes DO STUDY: CT [...] right sphenoid sinus. Ebony ctronically Signed: Johnny Gilamn MD at 15:01 EST Tel [phone], Service support [phone], CC: Enrike Jaimes DO Database Marketing Analyst: Signed 17-Apr-2014 CTA Chest W/WO Contrast Result: Comments: See Note; NOTES: [facility] Imaging Services [address] [place], [place] [address] [place] [address] CAT Scan Report MR#: [id number] Acct: [id number] Name: LUPE LOPEZ Rep #: [id number] : 1945 F 69 From: Johnny Gilman MD PCP: Fast DO,Enrike Status: REG CLI Study: CTA Chest W/WO Contrast Date of Exam: 04/17/14 Exam# [id number] Ordering Dr: Enrike Jaimes DO STUDY: C [...] Johnny Gilman MD at 14:38 EST Tel [phone], Service support [phone], CC: Enrike Jaimes DO Database Marketing Analyst: Signed Immunization Name Dates Details Influenza, preserv. 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 [place], [place], [address] Absolute Lymph 1.23 {X10_3/ul} (Normal) Range: 0.83-4.51 [...] 4.2-5.4 WBC 3.4 K/mm3 (Abnormal) Range: 4.4-11.0 32-Uhl-293089:07 Comprehensive Metabolic Profil Comments: Reason for Laboratory Test .[facility] [facility] [address] [place], [place], [address] GAP 7 (Normal) Range: 5-15 CO2 29.0 [...] Comments: Please note revised GLUCOSE reference range cdymqkjem95/02/2018. 81-Hwc-451352:07 Ferritin Comments: Reason for Laboratory Test .[facility] [address] [place], [address] FERRITIN 26 ng/mL (Normal) Range: 8-252 22-Owj-182524:07 Iron+Iron Binding Capacity Comments: Reason for Laboratory Test .[facility] [address] [place], [place], [address] IRON SATURATION 17.0 % (Normal) Range: 15.0-55.0 IRON 56 ug/dL (Normal) Range: 50-170 TIBC 329 ug/dL (Normal) Range: 250-450 49-Mzt-332672:47 CBC W/Diff, Automated Comments: [facility] [address] [place], [place], [address] Absolute Lymph 1.23 {X10_3/ul} (Normal) Range: 0.83-4.51 [...] 4.2-5.4 WBC 4.8 K/mm3 (Normal) Range: 4.4-11.0 20-Nxa-021668:47 Comprehensive Metabolic Profil Comments: [facility] Qxyscatzhy[address] [place], [place], [address] GAP 9 (Normal) Range: 5-15 CO2 25.0 [...] Comments: Please note revised GLUCOSE reference range idtfxdrnq18/02/2018. 24-Ken-010863:47 Hemoglobin A1c Comments: [facility] Ok[address] [place], [place], [address] HGB A1C 5.5 % (Normal) Range: 4.2-6.3 57-Iij-967231:47 Lipid Profile Comments: [facility] N[address] [place], [place], [address] VLDL 18 mg/dL (Normal) Range: 5-40 LDL [...] 200-240 mg/dL Borderline >240 mg/dL High Risk 63-Tvy-204523:47 Thyroid Stim Hormone (TSH) Comments: [facility] [address] [place], [place], [address] TSH 4.65 {uIU/mL} (Abnormal) Range: 0.358-3.74 59-Shr-811086:32 Thyroid Stim Hormone (TSH) Comments: [facility] [address] [place], [address] TSH 2.85 {uIU/mL} (Normal) Range: 0.358-3.74 43-Fyn-39295:27 Microscopic Examination Comments: PATIENT WAS FASTINGPERFORMED BY: [facility] Wlburh7249 [facility] [id number] Bacteria Few (Normal) Mucus Threads Present (Normal) Cast Type Hyaline casts (Normal) Casts Present {/lpf} (Abnormal) Epithelial Cells (non renal) 0-10 {/hpf} (Normal) Range: 0 - 10 RBC 0-2 {/hpf} (Normal) Range: 0 - 2 WBC 0-5 {/hpf} (Normal) Range: 0 - 5 20-Jul-20178:49 CBC W/Diff, Automated Comments: Reason for Laboratory Test [facility] [address]djxredb[address] [place], [address] Absolute Lymph 1.48 {X10_3/ul} (Normal) [...] Metabolic Profil Comments: Reason for Laboratory Test [facility] [address]zv[address] [place], [place], [address] GAP 5 (Normal) Range: 5-15 CO2 31.0 [...] Comments: Please note revised GLUCOSE reference range mygtvvwqq53/04/2017. 20-Jul-20178:49 Ferritin Comments: Reason for Laboratory Test AN[facility]AC[facility] [address]rgvjwj[address] [place], [phone] FERRITIN 29 ng/mL (Normal) Range: 8-252 20-Jul-20178:49 Iron Comments: Reason for Laboratory Test AN[facility]IACleveland [facility] [address]himry[address] [place], [address] IRON 55 ug/dL (Normal) Range: 50-170 :32 Lipid Profile Comments: [facility] [address]izkex[address] [place], [address] VLDL 18 mg/dL (Normal) Range: 5-40 LDL [...] mg/dL High Risk :32 Liver Profile Comments: [facility] [address]aru[address] [place], [id number] D BILI 0.09 mg/dL (Normal) Range: 0.00-0.30 T BILI 0.50 mg/dL (Normal) Range: 0.20-1.00 ALT 14 U/L (Normal) Range: 13-56 ALK P 55 U/L (Normal) Range: 45-117 AST 19 U/L (Normal) Range: 15-37 GLOB 3.0 g/dL (Normal) Range: 2.2-4.2 ALB 3.7 g/dL (Normal) Range: 3.2-5.0 T PROT 6.7 g/dL (Normal) Range: 6.4-8.2 :32 Thyroid Stim Hormone (TSH) Comments: [facility] [address] [place], [address] TSH 5.71 {uIU/mL} (Abnormal) Range: 0.358-3.74 :27 SED RATE ERYTHROCYTE (37177) Comments: PATIENT WAS FASTINGPERFORMED BY: [facility] Eugaqi0270 [facility] [id number] Sedimentation Rate-Westergren 8 mm/h (Normal) Range: 0-40 :27 C-REACTIVE PROTEIN (33321) Comments: PATIENT WAS FASTINGPERFORMED BY: LabWipit6370 [facility] [id number] C-Reactive Protein, Quant 0.6 mg/L (Normal) Range: 0.0-4.9 :27 FOLIC ACID SERUM (36232) Comments: PATIENT WAS FASTINGPERFORMED BY: [employer] Oazqsz1416 [facility] [id number] Folate (Folic Acid), Serum >20.0 ng/mL (Normal) Comments: A serum folate concentration of less than 3.1 ng/mL isconsidered to represent clinical deficiency. :27 VITAMIN B-12 (CYANOCOBALAMIN) Comments: PATIENT WAS FASTINGPERFORMED BY: [employer] Lhfehc4311 [facility] [id number] (57619) Vitamin B12 681 pg/mL (Normal) Range: 232-1245 :27 TSH (THYROID STIMULATING Comments: PATIENT WAS FASTINGPERFORMED BY: LabHeekya Vgrgjs0656 [facility] [id number] HORMONE) (72524) TSH 6.650 {uIU/mL} (Abnormal) Range: 0.450-4.500 :27 LIPID PANEL (21886) Comments: PATIENT WAS FASTINGPERFORMED BY: [facility] Aqjsxk2989 [facility] [id number] LDL/HDL Ratio 1.4 {ratio} (Normal) Range: 0.0-3.2 [...] mg/dL (Normal) Range: 100-199 :27 HGB A1C (96960) Comments: PATIENT WAS FASTINGPERFORMED BY: [employer] [facility] [id number] Hemoglobin A1c 5.6 % (Normal) Range: 4.8-5.6 Comments: . Pre-diabetes: 5.7 - 6.4 Diabetes: >6.4 Glycemic control for adults with diabetes: <7.0 :27 serum free light chains Comments: PATIENT WAS FASTINGPERFORMED BY: [employer] [facility] [id number] (57989) [place]/Lambda Ratio,S 1.18 (Normal) Range: 0.26-1.65 Free Lambda Lt Chains,S 19.1 mg/L (Normal) Range: 5.7-26.3 Free [place] Lt Chains,S 22.5 mg/L (Abnormal) Range: 3.3-19.4 :27 urine immunofixation (14192) Comments: PATIENT WAS FASTINGPERFORMED BY: [employer] [facility] [id number] THEE Interpretation:U UPEIP (Normal) Comments: No monoclonality detected. :27 serum immunofixation (94759) Comments: PATIENT WAS FASTINGPERFORMED BY: Secerno6370 [facility] [id number] Immunoglobulin M, Qn, Serum 68 mg/dL (Normal) Range: 26-217 Immunoglobulin A, Qn, Serum 111 mg/dL (Normal) Range: 64-422 Immunoglobulin G, Qn, Serum 669 mg/dL (Abnormal) Range: 700-1600 Immunofixation Result, Serum UPEIP (Normal) Comments: No monoclonality detected. :27 URINALYSIS, W/ MICRO (76498) Comments: PATIENT WAS FASTINGPERFORMED BY: [facility]GenEssex County HospitalUmbfls4599 [facility] [id number] Microscopic Examination See below: (Normal) Comments: Microscopic was indicated and was performed. Microscopic Examination MICRON (Normal) Comments: Microscopic follows if indicated. Nitrite, Urine Negative (Normal) Urobilinogen,Semi-Qn 0.2 mg/dL (Normal) Range: 0.2-1.0 Bilirubin Negative (Normal) Occult Blood Negative (Normal) Ketones Negative (Normal) Glucose Negative (Normal) Protein Negative (Normal) WBC Esterase Negative (Normal) Appearance Clear (Normal) Urine-Color Yellow (Normal) pH 6.0 (Normal) Range: 5.0-7.5 Specific [place] 1.019 (Normal) Range: 1.005-1.030 :27 METABOLIC PANEL, COMPREHENSIVE Comments: PATIENT WAS FASTINGPERFORMED BY: [facility]GenEs[facility] HospitalGrjple1938 [facility] [id number] (41678) ALT (SGPT) 12 [iU]/L (Normal) Range: 0-32 [...] 8-27 Glucose 91 mg/dL (Normal) Range: 65-99 1-Bms-110135:14 CBC W/Diff, Automated Comments: Reason for Laboratory Test .[facility] [address] [place], [place], [address] Absolute Lymph 0.91 {X10_3/ul} (Normal) Range: 0.83-4.51 [...] 4.2-5.4 WBC 5.1 K/mm3 (Normal) Range: 4.4-11.0 9-Ofd-116572:14 Comprehensive Metabolic Profil Comments: Reason for Laboratory Test .Is Patient Taking Vitamins or Folic Acid Supplements? [facility] [address] [place], [address] GAP 7 (Normal) Range: 5-15 CO2 30.0 [...] 7-18 GLU 100 mg/dL (Normal) Range: 70-110 1-Ahl-701694:14 Ferritin Comments: Reason for Laboratory Test .Is Patient Taking Vitamins or Folic Acid Supplements? [facility] [address] [place], [address] FERRITIN 42 ng/mL (Normal) Range: 8-252 3-Qsx-175658:14 Folates, (Folic Acid) Comments: Reason for Laboratory Test .Is Patient Taking Vitamins or Folic Acid Supplements? [facility] [address] [place], [phone] FOLATES 82.80 ng/mL (Abnormal) Range: 3.1-55.4 Comments: Please note revised Folates reference range dsmkmoiip35/14/2017. 8-Caq-446263:14 Iron+Iron Binding Capacity Comments: Reason for Laboratory Test .Is Patient Taking Vitamins or Folic Acid Supplements? [facility] I[address]uiqenz[address] [place], [address] IRON SATURATION 10.7 % (Abnormal) Range: 15.0-55.0 IRON 36 ug/dL (Abnormal) Range: 50-170 TIBC 335 ug/dL (Normal) Range: 250-450 2-Wlr-068938:14 Vitamin B12 > 2000 pg/mL (Abnormal) Comments: Reason for Laboratory Test .[facility] [address] [place], [address] Range: 211-911 57-Dhd-542757:06 Stool Occult Blood iFOB Comments: [facility] Xxyairdpju[address] [place], [address] STOB See Note (Normal) Comments: Reason for Laboratory Test . STOB iFOBOccult Blood Negative 17-Kxo-84529:18 CBC W/Diff, Automated Comments: [facility] Fallqcnsvv[address] [place], [address] Absolute Lymph 1.31 {X10_3/ul} (Normal) Range: 0.83-4.51 [...] 4.2-5.4 WBC 3.4 K/mm3 (Abnormal) Range: 4.4-11.0 19-Flr-15969:18 Comprehensive Metabolic Profil Comments: Is Patient Taking Vitamins or Folic Acid Supplements? [facility] Edfmnybeqs[address] [place], [address] GAP 7 (Normal) Range: 5-15 CO2 28.0 [...] Patient Taking Vitamins or Folic Acid Supplements? [facility] Sz[address]xhixeb[address] [place], [address] FERRITIN 16 ng/mL (Normal) Range: 8-252 :18 Folates, (Folic Acid) Comments: Is Patient Taking Vitamins or Folic Acid Supplements? [facility] [address]jprtikl[address] [place], [address] FOLATES 67.80 ng/mL (Abnormal) Range: 3.1-17.5 :18 Iron+Iron Binding Capacity Comments: Is Patient Taking Vitamins or Folic Acid Supplements? [facility] X[address]uguzqwm[address] [place], [address] IRON SATURATION 11.2 % (Abnormal) Range: 15.0-55.0 IRON 41 ug/dL (Abnormal) Range: 50-170 TIBC 367 ug/dL (Normal) Range: 250-450 :18 Vitamin B12 1297 pg/mL (Abnormal) Comments: [facility] [address]knwsmfly[address] [place], [address] Range: 211-911 27-Cwd-081546:09 Urinalysis, Office (98504) UA - LEUKOCYTE ESTERASE Negative (Normal) UA - NITRITE Negative (Normal) URINE UROBILINGN DIPAK TIMED 2 mg/dL (Normal) UA - PROTEIN Negative mg/dL (Normal) UA - PH 6.0 (Normal) UA - BLOOD Hemolyzed Trace (Normal) UA - SPECIFIC GRAVITY 1.015 (Normal) UA - KETONES Negative mg/dL (Normal) UA - BILIRUBIN Negative (Normal) UA - GLUCOSE Negative (Normal) :09 Blood Glucose , Office (82241) Blood Glucose , Office 91 (Normal) :09 HgA1C , Office (05769) HgA1C , Office 5.3 % (Normal) Range: 4.6 - 7.1 :01 CBC W/Diff, Automated Comments: [facility] [address] [place], [place], [address] Absolute Lymph 0.96 {X10_3/ul} (Normal) Range: 0.83-4.51 [...] Range: 4.4-11.0 :01 Comprehensive Metabolic Profil Comments: [facility] [address]far[address] [place], [place], [address] GAP 12 (Normal) Range: 5-15 CO2 24.0 [...] (Normal) Range: 70-110 :01 Hemoglobin A1c Comments: [facility] [address]permxf[address] [place], [place], [address] HGB A1C 5.3 % (Normal) Range: 4.2-6.3 :01 THEE + Protein Elect, Serum Comments: Is Patient Fasting? 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 THEE RESULT,S Comment (Normal) Comments: No monoclonality detected. A/G RATIO 1.2 (Normal) Range: 0.7-1.7 GLOBULIN, TOTAL 3.1 g/dL (Normal) Range: 2.2-3.9 M-SPIKE g/dL (Normal) Comments: Not Observed GAMMA GLOBULIN 0.7 g/dL (Normal) Range: 0.4-1.8 BETA GLOBULIN 0.9 g/dL (Normal) Range: 0.7-1.3 WUVSC-2-MXKZ 1.0 g/dL (Normal) Range: 0.4-1.0 MNSXV-7-OECS 0.5 g/dL (Abnormal) Range: 0.0-0.4 ALBUMIN 3.6 g/dL (Normal) Range: 2.9-4.4 IMMUNOGL M 70 mg/dL (Normal) Range: 26-217 IMMUNO A 114 mg/dL (Normal) Range: 64-422 IMMUNO G 679 mg/dL (Abnormal) Range: 700-1600 PROTEIN,TOTAL 6.7 g/dL (Normal) Range: 6.0-8.5 : Immunofixation Urine Comments: Is Patient Fasting? [facility] (refer to report for specific site)refer to report for address and phone number THEE Urine Comment (Normal) Comments: No monoclonality detected.Performed at: - [facility] [id number] Director: Samm Galvan PhD, Phone: [phone] Lipid Profile Comments: [facility] [address]yrigsm[address] [place], [address] VLDL 19 mg/dL (Normal) Range: [...] Risk :01 Thyroid Stim Hormone (TSH) Comments: [facility] [address] [place], [address] TSH 4.87 {uIU/mL} (Abnormal) Range: 0.358-3.74 :01 Vitamin D,25 Hydroxy Comments: [facility] [address]hb[address] [place], [address] Vitamin D 25-OH 27.3 ng/mL (Normal) Comments: Vitamin D 25(OH) Status Range Deficiency <20 ng/mL (50nmol/L) Insuffciency 20 - 30 ng/mL (50 - 75 nmol/L) Sufficiency 30 - 100 ng/mL (75 - 250 nmol/L) Toxicity >100 ng/mL (>250 nmol/L) :54 CBC W/Diff, Automated Comments: [facility] [address] [place], [place], [address] Absolute Lymph 1.70 {X10_3/ul} (Normal) Range: 0.83-4.51 [...] 4.2-5.4 WBC 4.5 K/mm3 (Normal) Range: 4.4-11.0 24-Deb-06872:54 Comprehensive Metabolic Profil Comments: 'TROP' Serial specimen #1, #2, #3, or #4: 1[facility] Hagsbfycwf6242 [place], [place], [address] GAP 8 (Normal) Range: 5-15 CO2 25.0 [...] (Normal) Range: 70-110 :54 Hemoglobin A1c Comments: [facility] [address] [place], [place], [address] HGB A1C 5.9 % (Normal) Range: 4.2-6.3 :54 Lipid Profile Comments: 'TROP' Serial specimen #1, #2, #3, or #4: [address] [place] [address] [place], [place], [address] VLDL 31 mg/dL (Normal) Range: 5-40 LDL [...] Serial specimen #1, #2, #3, or #4: [address] [place] [address] [place], [place], [address] TSH 4.73 {uIU/mL} (Abnormal) Range: 0.358-3.74 13-Vzg-39956:54 Troponin-I Comments: 'TROP' Serial specimen #1, #2, #3, or #4: [address] [place] [address] [address] [place], [place], [address] TROPONIN-I < 0.02 ng/mL (Normal) Comments: TROPONIN-I EXPECTED VALUES <0.05 NEGATIVE 0.06 - 0.[address] > OR = 0.[address] 57-Ume-199753:51 CBC W/Diff, Auto - EPLAB Comments: Order Date: 01/01/16Order Info: [id number] - *CBC w/Diff - oncology ONLYComments: DRAW AND HOLD SERUM TUBEOrder Date: 01/01/16Order Info: [id number] - *CBC w/Diff - oncology ONLYComments: DRAW AND HOLD SERUM Only TUBEAt [facility] [place] Medical Oncologypatients receive CBC w/auto Differential ONLY. Physicianwill place an order for a manual differential or Pathologistreview at his discretion. [facility]. [address] [place] [address] [address] RETAIL MAINTENANCE TECHNICIAN: JOSE KOHLI DO PH:[phone] Date: 01/01/16Order Info: [id number] - *MISC - Miscellaneous Lab Test #1Comments: Test(s) Ordered by Physician:[facility] [address]kzxhgs[address] [place], [place], [address] Absolute Lymph 1.39 {X10_3/uL} (Normal) Range: 0.83-4.51 [...] 4.2-5.4 WBC 4.7 K/mm3 (Normal) Range: 4.4-11.0 33-Tag-164767:51 Comprehensive Metabolic Comments: Order Date: 01/01/16Order Info: 0786-1 - *CMP Complete Metabolic PanelOrder Info: 3084-1 - *Uric Acid BloodOrder Info: 2500-7 - *TIBCOrder Info: 9468-4 - *IronOrder Info: 2276-4 - *FerritinComments: [place] Veronica son:Order Info: 2532-0 - *LDH -LDH (Lactate Dehydrogenase)Order Date: 01/01/16Order Info: 0453-1 - *MISC - Miscellaneous Lab Test #1Comments: Test(s) Ordered by Physician:FOLATESSerial Specimen #1, # 2 or #3? 1Is Patient Taking Vitamins or Folic Acid Supplements? [facility] [address]leab[address] [place], [address] GAP 2 (Abnormal) Range: 5-15 CO2 29.0 [...] 7-18 GLU 89 mg/dL (Normal) Range: 70-110 54-Qny-937601:51 Ferritin Comments: Order Date: 01/01/16Order Info: 0786-1 [...] Patient Taking Vitamins or Folic Acid Supplements? [facility] Iajsecikwa7810 [facility] [place], [place], [address] FERRITIN 14 ng/mL (Normal) Range: 8-252 73-Nlz-855822:51 Folates, (Folic Acid) Comments: Order Date: 01/01/16Order [...] Patient Taking Vitamins or Folic Acid Supplements? [facility] [address] [place], [address](588) FOLATES 72.40 ng/mL (Abnormal) Range: 3.1-17.5 20-Tkx-519527:51 Iron Comments: Order Date: 01/01/16Order Info: 0786-1 [...] Patient Taking Vitamins or Folic Acid Supplements? [facility] [address] [place], [address] IRON 40 ug/dL (Abnormal) Range: 50-170 51-Bgx-879032:51 Iron Binding Capacity,Total Comments: Order Date: 01/01/16Order Info: 0786-1 - *CMP Complete Metabolic PanelOrder Info: 1 - *Uric Acid BloodOrder Info: 2500-7 - *TIBCOrder Info: 2498-4 - *IronOrder Info: 2276-4 - *FerritinComments: Ashlyn son:Order Info: 2532-0 - *LDH -LDH (Lactate Dehydrogenase)Order Date: 01/01/16Order Info: 3-1 - *MISC - Miscellaneous Lab Test #1Comments: Test(s) Ordered by Physician:FOLATESSerial Specimen #1, # 2 or #3? 1Is Patient Taking Vitamins or Folic Acid Supplements? [facility] [address] [place], [address] TIBC 354 ug/dL (Normal) Range: 250-450 99-Bqh-253674:51 LDH 199 U/L (Normal) Comments: Order Date: [...] Patient Taking Vitamins or Folic Acid Supplements? [facility] [address] [place], [place], [address] Range: 84-246 41-Jfp-167472:51 Uric Acid Comments: Order Date: 01/01/16Order Info: [...] Patient Taking Vitamins or Folic Acid Supplements? [facility] [address] [place], [place], [address] URIC 3.9 mg/dL (Normal) Range: 2.6-6.0 Comments: The drugs N-Acetylcysteine and Metamizole may falsely deressthis assay. 37-Oin-547913:51 Vitamin B12 809 pg/mL (Normal) Comments: Order Date: 01/01/16Order Info: 2132-9 - *B-12Order Date: 01/01/16Order Info: 0453-1 - *MISC - Miscellaneous Lab Test #1W[facility] W[address]jtpinul[address] [place], [place], [address] Range: 211-911 10-Pgo-641030:41 D-Dimer Quantitative (DVT/PE) Comments: Order Date: 06/15/16Order Info: 23150-4 - *DDIMQ - Fibrin Degrd Ultrsens Qual/SemiquanOrder Date: 06/15/16Order Info: 19158-3 - *DDIMQ - Fibrin Degrd Ultrsens Qual/SemiquanWSelect [facility] [address]jsm[address] [place], [address] D-DIMER QUANT 0.28 {FEU/ug/m} (Normal) Range: 0.27-0.49 Comments: NORMAL D-Dimer level (<0.50) indicates no DVT or PE. 9-Ebh-862701:15 Thyroxine (T4) Free, Direct, S Comments: PATIENT NOT FASTINGPERFORMED BY: [employer] Ygpwuo2180 [facility] [id number] T4,Free(Direct) 1.22 ng/dL Range: 0.82-1.77 (Normal) Triiodothyronine,Free,Seru 2.2 pg/mL (Normal) Comments: PATIENT NOT FASTINGPERFORMED BY: [facility]ixCarondelet HealthGzhqxw6394 [facility] [id number] 4:15 m Range: 2.0-4.4 Written Authorization WAR (Normal) Comments: PATIENT NOT FASTINGPERFORMED BY: [facility]ixCarondelet HealthGetdco8699 [facility] [id number] 4:15 Comments: Written Authorization Received.Authorization received from MAO BENITEZ [id number] by Jyothi Boland 9-Tac-297047:15 SPEP ([id number]) Comments: PATIENT NOT FASTINGPERFORMED BY: [facility] Center6370 [facility] [id number] Please note: SPRCS (Normal) Comments: Protein electrophoresis scan will follow via computer, mail, orcourier delivery. A/G Ratio 1.3 (Normal) Range: 0.7-1.7 Globulin, Total 2.8 g/dL (Normal) Range: 2.2-3.9 M-Abhinav Not Observed g/dL (Normal) Gamma Globulin 0.8 g/dL (Normal) Range: 0.4-1.8 Beta Globulin 0.8 g/dL (Normal) Range: 0.7-1.3 Nbmxs-1-Kktxgylh 0.9 g/dL (Normal) Range: 0.4-1.0 Tpuzp-2-Ddddulyn 0.2 g/dL (Normal) Range: 0.0-0.4 Albumin 3.6 g/dL (Normal) Range: 2.9-4.4 Protein, Total, Serum 6.4 g/dL (Normal) Range: 6.0-8.5 4-Jkb-792259:15 UPEP (22153) Comments: PATIENT NOT FASTINGPERFORMED BY: [employer] Apyqma9565 [facility] [id number] Please note: SPRCS (Normal) Comments: Protein electrophoresis scan will follow via computer, mail, orcourier delivery. M-Abhinav, % Not Observed % (Normal) Gamma Globulin, U 39.7 % (Normal) Beta Globulin, U 30.6 % (Normal) Mssgz-3-Irbjlyha, U 6.8 % (Normal) Faznz-7-Uilzidsn, U 2.0 % (Normal) Albumin, U 21.0 % (Normal) Protein,Total,Urine 4.5 mg/dL (Normal) 1-Brf-986604:15 TSH (45444) Comments: PATIENT NOT FASTINGPERFORMED BY: [facility] Ssprjr9579 [facility] [id number] TSH 7.400 {uIU/mL} (Abnormal) Range: 0.450-4.500 2-Zbf-992527:15 CBC WITH MANUAL DIFF (60064) Comments: PATIENT NOT FASTINGPERFORMED BY: [facility] Nohier2471 [facility] [id number] Immature Grans (Abs) 0.0 {x10E3/uL} (Normal) Range: [...] 3.77-5.28 WBC 4.5 {x10E3/uL} (Normal) Range: 3.4-10.8 6-Neg-961038:15 RETICULOCYTE COUNT (80697) Comments: PATIENT NOT FASTINGPERFORMED BY: [facility]nedixCoEssex County HospitalSaflyp8937 [facility] [id number] Reticulocyte Count 1.0 % (Normal) Range: 0.6-2.6 2-Nra-208748:15 LDH (LD) (LACTATE DEHYDROGENASE) Comments: PATIENT NOT FASTINGPERFORMED BY: [facility] EnergyEssex County HospitalHlmsqt0802 [facility] [id number] (85467) LDH 185 [iU]/L (Normal) Range: 119-226 6-Nxh-175975:15 Iron Binding Capacity (TIBC) Comments: PATIENT NOT FASTINGPERFORMED BY: [facility]CoEs[facility] HospitalUpojhj6173 [facility] [id number] (96464) Iron Saturation 16 % (Normal) Range: 15-55 Iron, Serum 55 ug/dL (Normal) Range: 27-139 UIBC 281 ug/dL (Normal) Range: 118-369 Iron Bind.Cap.(TIBC) 336 ug/dL (Normal) Range: 250-450 5-Tfy-238425:15 Vitamin B-12 (cyanocobalamin) Comments: PATIENT NOT FASTINGPERFORMED BY: [facility] Hrseou8748 [facility] [id number] (60583) Vitamin B12 979 pg/mL (Abnormal) Range: 211-946 4-Cot-477937:15 Folic Acid Serum (47353) Comments: PATIENT NOT FASTINGPERFORMED BY: [facility] Ojdegj2537 [facility] [id number] Folate (Folic Acid), Serum >20.0 ng/mL (Normal) Comments: A serum folate concentration of less than 3.1 ng/mL isconsidered to represent clinical deficiency. 5-Ljq-938869:15 Ferritin (01472) Comments: PATIENT NOT FASTINGPERFORMED BY: [facility] [id number] [facility] [id number] Ferritin, Serum 30 ng/mL (Normal) Range: 15-150 75-Ehc-035085:05 CBC W/Diff, Automated Comments: [facility] [id number] [place], [address] Absolute Lymph 1.49 {X10_3/ul} (Normal) Range: 0.83-4.51 [...] 4.2-5.4 WBC 4.6 K/mm3 (Normal) Range: 4.4-11.0 01-Khi-882379:05 Comprehensive Metabolic Profil Comments: [facility] [id number] [place], [place], [id number] GAP 8 (Normal) Range: 5-15 CO2 28.0 [...] 7-18 GLU 86 mg/dL (Normal) Range: 70-110 75-Dyb-919379:05 Hemoglobin A1c Comments: [facility] [id number] [place], [address] HGB A1C 5.2 % (Normal) Range: 4.2-6.3 92-Qow-546026:05 Lipid Profile Comments: [facility] [address] [place], [address] VLDL 22 mg/dL (Normal) Range: 5-40 [...] 200-240 mg/dL Borderline >240 mg/dL High Risk 53-Zsa-883829:05 Microalb:Creat Ratio,Random UR Comments: [facility] [address] [place], [address] MALB:CREAT 5.0 {mg/g_CRE} (Normal) MICROALBUMIN,UR 7.2 mg/L (Normal) UR CREAT 144.00 mg/dL (Normal) 94-Sjz-090552:05 Vitamin D,25 Hydroxy Comments: [facility] [address] [place], [address] Vitamin D 25-OH 40.3 ng/mL (Normal) Comments: Vitamin D 25(OH) Status Range Deficiency <20 ng/mL (50nmol/L) Insuffciency 20 - 30 ng/mL (50 - 75 nmol/L) Sufficiency 30 - 100 ng/mL (75 - 250 nmol/L) Toxicity >100 ng/mL (>250 nmol/L) 00-Mpi-09501:27 CBC with auto diff (44601) Comments: PATIENT WAS FASTINGPERFORMED BY: [facility]CoEs[facility] HospitalBzzcfi5858 [facility] [id number] Immature Grans (Abs) 0.0 {x10E3/uL} (Normal) Range: [...] 3.77-5.28 WBC 3.3 {x10E3/uL} (Abnormal) Range: 3.4-10.8 89-Ezh-369297:35 MAGNESIUM (22968) Comments: PATIENT NOT FASTINGPERFORMED BY: [facility] Lajtdg1266 [facility] [id number] Magnesium, Serum 1.8 mg/dL (Normal) Range: 1.6-2.3 01-Hvq-605327:35 POTASSIUM SERUM (62535) Comments: PATIENT NOT FASTINGPERFORMED BY: [facility] Kzovxd0553 [facility] [id number] Potassium, Serum 4.5 mmol/L (Normal) Range: 3.5-5.2 71-Hic-15502:00 CBC W/Diff, Automated Comments: [facility] [address] [place], [place], [address] Absolute Lymph 0.91 {X10_3/ul} (Normal) Range: 0.83-4.51 [...] 4.2-5.4 WBC 3.5 K/mm3 (Abnormal) Range: 4.4-11.0 79-Iks-53975:00 Comprehensive Metabolic Profil Comments: [facility] [address] [place], [place], [address] GAP 8 (Normal) Range: 5-15 CO2 31.0 [...] 7-18 GLU 75 mg/dL (Normal) Range: 70-110 75-Nhg-81087:00 Erythrocyte Sed Rate Comments: [facility] [address] [place], [place], [address] SED RATE 21 mm/h (Normal) Range: 0-30 9-Krx-382448:37 CBC W/Diff, Automated Comments: [facility] [address] [place], [address] Absolute Lymph 1.96 {X10_3/ul} (Normal) [...] 4.2-5.4 WBC 5.5 K/mm3 (Normal) Range: 4.4-11.0 1-Alt-213560:37 Thyroid Stim Hormone (TSH) Comments: [facility] [address] [place], [address] TSH 4.43 {uIU/mL} (Abnormal) Range: 0.358-3.74 7-Muk-249362:37 Vitamin B12 969 pg/mL (Abnormal) Comments: [facility] [address] [place], [address] Range: 211-911 :00 CBC W/ Manual Differential Comments: [facility] [address] [place], [address] RED CELL MORPH NORM C+C [...] Contrast this admission? NIs Patient on Heparin? [facility] [address] [place], [place], [address] GAP 7 (Normal) Range: 5-15 CO2 30.0 [...] Contrast this admission? NIs Patient on Heparin? [facility] [address] [place], [place], [address] FREE T3 2.1 pg/mL (Abnormal) Range: 2.18-3.98 :00 T4 Free Direct Comments: ADD ON TSHHas Patient had X-rays with Contrast this admission? NIs Patient on Heparin? [facility] [address] [facility] [address] [place], [place], [address] T4 FREE DIRECT 1.30 ng/dL (Normal) Range: 0.76-1.46 29-Jan-20160:00 Thyroid Peroxidase AB Comments: [facility] (refer to report for specific site)refer to report for address and phone number TPO AB [phone] 6 {IU/mL} (Normal) Range: 0-34 Comments: Performed at: [address] [id number] Director: Samm Galvan PhD, Phone: [phone] 29-Jan-20160:00 Thyroid Stim Hormone (TSH) Comments: ADD ON TSHHas Patient had X-rays with Contrast this admission? NIs Patient on Heparin? [facility] [address] [place], [address] TSH 5.27 {uIU/mL} (Abnormal) Range: 0.358-3.74 33-Yjs-851379:38 CBC W/Diff, Auto - EPLAB Comments: At [facility] [place] [facility] Medical Oncologypatients receive CBC w/auto Differential ONLY. Physicianwill place an order for a manual differential or Pathologistreview at his discretion. [facility] OUTPATIENT [facility]. [address] [place] [address] [address] RETAIL MAINTENANCE TECHNICIAN: JOSE KOHLI DO PH:[phone] Clinic Hillcrest Hospital [address] [place], [address] Absolute Lymph 1.55 {X10_3/uL} (Normal) [...] 4.2-5.4 WBC 5.4 K/mm3 (Normal) Range: 4.4-11.0 03-Kkf-133644:19 Pathology Report Comments: PERFORMED BY: DogTime MediaSELECT MEDICAL SPECIAL[facility] LabCoN[facility] Hospital Cyto Kzffx43685 [facility] [id number] BY: [facility] Dermatopathology Rebucsf[address] [id number] Information: [id number] See MATER Comments: Material submitted: .PUNCH BIOPSY [...] SPECIMEN IS SUBMITTEDIN CASSETTE(S) A./CORCOR/CORPathologist provided ICD-10:D04.62CPT .[id number] 52-Hse-271037:15 HgA1C , Office (81572) HgA1C , Office 5.7 % (Normal) Range: 4.6 - 7.1 36-Zic-373374:13 CBC W/Diff, Automated Comments: [facility] [address] [place], [place], [address] Absolute Lymph 1.90 {X10_3/ul} (Normal) Range: 0.83-4.51 [...] 4.2-5.4 WBC 4.5 K/mm3 (Normal) Range: 4.4-11.0 75-Jmc-791491:13 Comprehensive Metabolic Profil Comments: [facility] [address] [place], [place], [address] GAP 6 (Normal) Range: 5-15 CO2 30.0 [...] 7-18 GLU 89 mg/dL (Normal) Range: 70-110 :13 CRP Comments: [facility] [address]zqygngw[address] [facility] [address] [place], [place], [address] C-REACTIVE PROT < 2.90 mg/L (Normal) Range: 0.0-3.0 Comments: C-Reactive Protein (CRP) provides useful information for thediagnosis, therapy and monitoring of inflammatory processesand associated diseases. For the evaluation of Relative Riskfor Cardiovascular Dise ase, a High Sensitivity CRP (HSCRP)should be ordered. :13 Erythrocyte Sed Rate Comments: [facility] [address] [place], [place], [address] SED RATE 13 mm/h (Normal) Range: 0-30 11-Hfs-105217:13 Lipid Profile Comments: [facility] [address] [place], [place], [address] VLDL 32 mg/dL (Normal) Range: 5-40 LDL [...] 200-240 mg/dL Borderline >240 mg/dL High Risk 67-Lda-248405:13 Rheumatoid Factor Comments: [facility] [address] [place], [address] RHEUMATOID FAC < 10.0 {IU/mL} (Normal) 27-Fag-532035:13 Thyroid Stim Hormone (TSH) Comments: [facility] Xrutdaefbr[address] [facility] [place], [address] TSH 4.62 {uIU/mL} (Abnormal) Range: 0.358-3.74 :54 Lipid Profile Comments: ORDERED: CBCD, CMP, LDH, URIC, XTRADR.FAST ORDERED: LIPID, CMP, VITD, CBCDWSelect Medical Specialty [facility] [address]dwwog[address] [place], [address] VLDL 20 mg/dL (Normal) Range: 5-40 [...] High Risk :54 Vitamin D,25 Hydroxy Comments: [facility] [address] [place], [address] Vitamin D 25-OH 43.8 ng/mL (Normal) Comments: Vitamin D 25(OH) Status Range Deficiency <20 ng/mL (50nmol/L) Insuffciency 20 - 30 ng/mL (50 - 75 nmol/L) Sufficiency 30 - 100 ng/mL (75 - 250 nmol/L) Toxicity >100 ng/mL (>250 nmol/L) :53 CBC W/Diff, Automated Comments: [facility] [address] [place], [place], [address] Absolute Lymph 1.63 {X10_3/ul} (Normal) Range: 0.83-4.51 [...] Range: 4.4-11.0 :53 Comprehensive Metabolic Profil Comments: [facility] [address] [place], [place], [address] GAP 7 (Normal) Range: 5-15 CO2 32.0 [...] 70-110 :53 LDH 182 U/L (Normal) Comments: [facility] [address] [place], [place], [address] Range: 84-246 :53 Uric Acid Comments: [facility] [address] [place], [place], [address] URIC 4.4 mg/dL (Normal) Range: 2.6-6.0 81-Bgd-153464:49 CBC W/Diff, Auto - EPLAB Comments: At [facility] Medical Oncologypatients receive CBC w/auto Differential ONLY. Physicianwill place an order for a manual differential or Pathologistreview at his discretion. [facility]. [address] [place] [address] [address] RETAIL MAINTENANCE TECHNICIAN: JOSE KOHLI DO PH:[phone] Clinic Hillcrest Hospital [address] [place], [address] Absolute Lymph 1.40 {X10_3/uL} (Normal) Range: 0.83-4.51 [...] 4.2-5.4 WBC 4.0 K/mm3 (Abnormal) Range: 4.4-11.0 48-Ska-912588:43 CBC W/Diff, Automated Comments: [facility] [address] [place], [address] Absolute Lymph 1.46 {X10_3/ul} (Normal) Range: 0.83-4.51 [...] Serial specimen #1, #2, #3, or #4: [facility] [address] [place] [address], [address] C-REACTIVE PROT < 2.90 mg/L (Normal) Range: 0.0-3.0 Comments: C-Reactive Protein (CRP) provides useful information for thediagnosis, therapy and monitoring of inflammatory processesand associated diseases. For the evaluation of Relative Riskfor Cardiovascular Dise ase, a High Sensitivity CRP (HSCRP)should be ordered. :43 CRP Comments: 'TROP' Serial specimen #1, #2, #3, or #4: [facility] [address] [place], [address] C-REACTIVE PROT < 2.90 mg/L (Normal) Range: 0.0-3.0 Comments: C-Reactive Protein (CRP) provides useful information for thediagnosis, therapy and monitoring of inflammatory processesand associated diseases. For the evaluation of Relative Riskfor Cardiovascular Dise ase, a High Sensitivity CRP (HSCRP)should be ordered. 38-Edf-755248:43 Erythrocyte Sed Rate Comments: [facility] [address] [place], [address] SED RATE 9 mm/h (Normal) Range: 0-30 51-Nov-219100:43 ASSAY, TROPONIN, QUANTITATIVE Comments: stat; 'TROP' Serial specimen #1, #2, #3, or #4: [facility] [address] [place], [address] (aka Troponin I) (90458) TROPONIN-I < 0.02 ng/mL (Normal) Comments: TROPONIN-I EXPECTED VALUES <0.05 NEGATIVE 0.06 - 0.[address] > OR = 0.[address] 58-Ict-450245:15 Basic Metabolic Profile (BMP) Comments: PLEASE REDRAW PREVIOUS SPECIMENS MISLABELED'TROP' Serial specimen #1, #2, #3, or #4: 1'CKMB' Serial Specimen #1, #2 or #3? 1[facility] [address] [place], [address] GAP 2 (Abnormal) Range: 5-15 CO2 31.0 [...] 7-18 GLU 103 mg/dL (Normal) Range: 70-110 67-Nut-436775:15 CBC W/Diff, Automated Comments: [facility] [address] [place], [place], [address] Absolute Lymph 1.99 {X10_3/ul} (Normal) Range: 0.83-4.51 [...] 4.2-5.4 WBC 5.8 K/mm3 (Normal) Range: 4.4-11.0 92-Zmg-500219:15 CK-MB Quantitative and Index Comments: PLEASE REDRAW PREVIOUS SPECIMENS MISLABELED'TROP' Serial specimen #1, #2, #3, or #4: 1'CKMB' Serial Specimen #1, #2 or #3? 1WSelect [facility] [address] [place], [address] CKRI 0.7 % (Normal) Range: 0.0-1.4 Comments: RELATIVE INDEX >1.5% IS PRESUMPTIVELY POSITIVE CPKMB 0.6 ng/mL (Normal) Range: 0.0-5.0 Comments: CK-MB and RI Interpretation MB Relative Index Non-AMI <or= 5 NA Indeterminate > 5 <or= 4 AMI > 5 > 4 CPK TOTAL 82 U/L (Normal) Range: 26-192 68-Imk-695869:15 Partial Thromboplast Time Comments: [facility] [address] [place], [address] PTT 48.2 s (Abnormal) Range: 24.1-36.2 77-Syd-495315:15 Prothrombin Time w/INR Comments: [place] [address] [place], [address] INR 2.3 (Normal) PROTIME 25.3 s (Abnormal) Range: 11.7-14.9 63-Cio-487615:15 Troponin-I Comments: PLEASE REDRAW PREVIOUS SPECIMENS MISLABELED'TROP' Serial specimen #1, #2, #3, or #4: 1'CKMB' Serial Specimen #1, #2 or #3? [address] [place] [address] [place], [address] TROPONIN-I < 0.02 ng/mL (Normal) Comments: TROPONIN-I EXPECTED VALUES <0.05 NEGATIVE 0.06 - 0.[address] > OR = 0.[address] 65-Huf-639436:25 Basic Metabolic Profile (BMP) Comments: Serial Specimen #1, #2 or #3? 1'TROP' Serial specimen #1, #2, #3, or #4: [address] [place] [address] [address] [place], [address] GAP 10 (Normal) Range: 5-15 CO2 [...] 7-18 GLU 104 mg/dL (Normal) Range: 70-110 12-Utb-400052:25 BNP,B-Type NATRIURETIC PEPTIDE Comments: [facility] [address] [facility] [address] [place], [place], [address] B-TYPE STEFAN PEP 94.1 pg/mL (Normal) Range: 0-100 26-Wel-146488:25 CBC W/Diff, Automated Comments: [facility] [address] [place], [place], [address] Absolute Lymph 2.03 {X10_3/ul} (Normal) Range: 0.83-4.51 [...] 4.2-5.4 WBC 6.0 K/mm3 (Normal) Range: 4.4-11.0 86-Hqs-068151:25 CK-MB Quantitative and Index Comments: Serial Specimen #1, #2 or #3? 1'TROP' Serial specimen #1, #2, #3, or #4: [address] [place] [address] [place], [address] CKRI Test not performed % (Normal) Range: 0.0-1.4 CPKMB < 0.5 ng/mL (Normal) Range: 0.0-5.0 Comments: CK-MB and RI Interpretation MB Relative Index Non-AMI <or= 5 NA Indeterminate > 5 <or= 4 AMI > 5 > 4 CPK TOTAL 69 U/L (Normal) Range: 26-192 07-Csl-890761:25 Prothrombin Time w/INR Comments: [facility] [address] [place], [address] INR 1.0 (Normal) PROTIME 13.4 s (Normal) Range: 11.7-14.9 59-Hvx-807108:25 Troponin-I Comments: Serial Specimen #1, #2 or #3? 1'TROP' Serial specimen #1, #2, #3, or #4: [address] [place] [address] [place], [address] TROPONIN-I < 0.02 ng/mL (Normal) Comments: TROPONIN-I EXPECTED VALUES <0.05 NEGATIVE 0.06 - 0.[address] > OR = 0.[address] 97-Lim-956777:50 Urinalysis, Office (35442) UA - LEUKOCYTE ESTERASE Small (Normal) UA - NITRITE Negative (Normal) URINE UROBILINGN DIPAK TIMED Normal mg/dL (Normal) UA - PROTEIN Negative mg/dL (Normal) UA - PH 7.0 (Normal) UA - BLOOD Non Hemolyzed Trace (Normal) UA - SPECIFIC GRAVITY 1.015 (Normal) UA - KETONES Negative mg/dL (Normal) UA - BILIRUBIN Negative (Normal) UA - GLUCOSE Negative (Normal) 99-Hih-738244:16 URINE ELLE CULTURE-IDENTIFICATN Comments: PATIENT NOT FASTINGPERFORMED BY: [facility] Ymbjqj3819 [facility] [id number] Information: [id number] ([id number]) Result 1 MUG (Normal) Comments: Mixed urogenital flora1,000 Colonies/mL Urine Culture,Comprehensive Final report (Normal) 22-Bjc-88845:58 CBC W/Diff, Automated Comments: [facility] [address] [place], [place], [address] ; non-emergent till apt Absolute Lymph 1.57 [...] 4.2-5.4 WBC 5.6 K/mm3 (Normal) Range: 4.4-11.0 89-Ocf-57277:58 Comprehensive Metabolic Profil Comments: [facility] [address] [place], [address] GAP 8 (Normal) Range: 5-15 CO2 30.0 [...] (Normal) Range: 70-110 :58 Hemoglobin A1c Comments: [facility] [address] [place], [place], [address] HGB A1C 5.9 % (Normal) Range: 4.2-6.3 :58 Lipid Profile Comments: [facility] [address] [place], [place], [address] VLDL 14 mg/dL (Normal) Range: 5-40 LDL [...] Complete Comments: How was Urine Obtained? CLEAN [facility] [address] [place], [address] MUCUS, URINE 0 SEEN {/hpf} [...] CBC W/Diff, Auto - EPLAB Comments: At [facility] Medical Oncologypatients receive CBC w/auto Differential ONLY. Physicianwill place an order for a manual differential or Pathologistreview at his discretion. [facility] OUTPATIENT [facility]. [address] [place] [address] [address] RETAIL MAINTENANCE TECHNICIAN: JOSE KOHLI DO PH:[phone] Clinic Hill[facility]st [facility] [address] [place], [address] ; ordered by Dr[address] Evgeny [...] 4.2-5.4 WBC 7.0 K/mm3 (Normal) Range: 4.4-11.0 1-Alq-489247:30 Basic Metabolic Profile (BMP) Comments: [facility] [address] [place], [place], [address] GAP 8 (Normal) Range: 5-15 CO2 27.0 [...] 7-18 GLU 84 mg/dL (Normal) Range: 70-110 8-Ezw-887090:30 CBC-Complete Blood Cnt No Diff Comments: [facility] [address]cl[address] [place], [address] MPV 11.8 fL (Normal) Range: [...] 4.2-5.4 WBC 6.7 K/mm3 (Normal) Range: 4.4-11.0 72-Pxn-330757:37 CBC W/Diff, Auto - EPLAB Comments: At [facility] Medical Oncologypatients receive CBC w/auto Differential ONLY. Physicianwill place an order for a manual differential or Pathologistreview at his discretion. [facility]IENT [facility]. [address] [place] [address] [address] RETAIL MAINTENANCE TECHNICIAN: JOSE KOHLI DO PH:[phone] Clinic Hillcrest Hospital [address] [place], [address] Absolute Lymph 1.77 {X10_3/uL} (Normal) [...] 4.2-5.4 WBC 4.3 K/mm3 (Abnormal) Range: 4.4-11.0 92-Gnc-637650:37 Comprehensive Metabolic Profil Comments: Serial Specimen #1, #2 or #3? 1Is Patient Taking Vitamins or Folic Acid Supplements? [facility] [address] [place], [place], [address] GAP 7 (Normal) Range: 5-15 CO2 29.0 [...] 7-18 GLU 84 mg/dL (Normal) Range: 70-110 48-Mjp-551124:37 Ferritin Comments: Serial Specimen #1, #2 or #3? 1Is Patient Taking Vitamins or Folic Acid Supplements? [facility] [address] [place], [address] FERRITIN 80 ng/mL (Normal) Range: 8-252 22-Tes-008393:37 Folates, (Folic Acid) Comments: Serial Specimen #1, #2 or #3? 1Is Patient Taking Vitamins or Folic Acid Supplements? [facility] [address] [place], [address] FOLATES 63.40 ng/mL (Abnormal) Range: 3.1-17.5 43-Hul-694901:37 Iron Comments: Serial Specimen #1, #2 or #3? 1Is Patient Taking Vitamins or Folic Acid Supplements? [facility] [address] [place], [address] IRON 71 ug/dL (Normal) Range: 50-170 51-Qwn-960229:37 Iron Binding Capacity,Total Comments: Serial Specimen #1, #2 or #3? 1Is Patient Taking Vitamins or Folic Acid Supplements? [facility] [address] [place], [address] TIBC 335 ug/dL (Normal) Range: 250-450 19-Xig-024955:37 LDH 162 U/L (Normal) Comments: Serial Specimen #1, #2 or #3? 1Is Patient Taking Vitamins or Folic Acid Supplements? [facility] [address] [place], [address] Range: 84-246 75-Lwn-742982:37 Uric Acid Comments: Serial Specimen #1, #2 or #3? 1Is Patient Taking Vitamins or Folic Acid Supplements? [facility] [address] [place], [address] URIC 4.5 mg/dL (Normal) Range: 2.6-6.0 33-Apu-812914:37 Vitamin B12 1077 pg/mL (Abnormal) Comments: [facility] [address] [place], [address] Range: 211-911 96-Tmu-410630:36 CBC W/Diff, Auto - EPLAB Comments: At [facility] Medical Oncologypatients receive CBC w/auto Differential ONLY. Physicianwill place an order for a manual differential or Pathologistreview at his discretion. [facility]. [address] [place] [address] [address] RETAIL MAINTENANCE TECHNICIAN: JOSE KOHLI DO PH:[phone] Clinic Hillcrest Hospital [address] [place], [address] Absolute Lymph 1.97 {X10_3/uL} (Normal) Range: [...] (Normal) Range: 4.4-11.0 :48 Vitamin D Hydroxy (55717) Comments: PATIENT WAS FASTINGPERFORMED BY: [employer] Moygtv1473 [facility] [id number] Vitamin D, 25-Hydroxy 32.8 ng/mL (Normal) Range: 30.0-100.0 Comments: Vitamin D deficiency has been defined by the [place] ofMedicine and an Endocrine Society practice guideline as alevel of serum 25-OH vitamin D less than 20 ng/mL (1,2).The Endocrine Society went on to further define vitamin Dinsufficiency as a level between 21 and 29 ng/mL (2).1. IOM ([place] of Medicine). 2010. Dietary reference intakes for calcium and D. [place]: The National Academies Press.2. Jose Carlos MF, Flip [place], David ROME, et al. Evaluation, treatment, and prevention of vitamin D deficiency: an Endocrine Society clinical practice guideline. JCEM. 2010; 96(7):1911-30. :48 CBC with auto diff Comments: PATIENT WAS FASTINGPERFORMED BY: [facility]ixA[facility] Center6370 [facility] [id number] Information: [id number] (80194) Immature Grans (Abs) 0.0 {x10E3/uL} (Normal) Range: [...] PANEL, COMPREHENSIVE Comments: PATIENT WAS FASTINGPERFORMED BY: LabApex [facility] Center6370 [facility] [id number] (16069) ALT (SGPT) 10 [iU]/L (Normal) Range: 0-32 [...] mg/dL (Normal) Range: 65-99 :48 LIPID PANEL (81879) Comments: PATIENT WAS FASTINGPERFORMED BY: [facility]tentiveAt[facility] [id number] LDL/HDL Ratio 1.2 {ratio_units} (Normal) Range: 0.0-3.2 [...] CREATININE RATIO Comments: PATIENT WAS FASTINGPERFORMED BY: Boni70 PuridifyAtrium Health [facility] [id number] (52083) AND (21723) Microalb/Creat Ratio 64.2 {mg/g_creat} (Abnormal) Range: 0.0-30.0 Microalbumin, Urine 46.3 ug/mL (Abnormal) Range: 0.0-17.0 Creatinine, Urine 72.1 mg/dL (Normal) Range: 15.0-278.0 :48 Hemoglobin Glyclated (HGB A1C) Comments: PATIENT WAS FASTINGPERFORMED BY: LabCoEssex County HospitalQcyqjt8726 [facility] [id number] (59012) Hemoglobin A1c 5.7 % (Abnormal) Range: 4.8-5.6 Comments: . Pre-diabetes: 5.7 - 6.4 Diabetes: >6.4 Glycemic control for adults with diabetes: <7.0 26-Oth-406934:28 CBC W/Diff, Auto - EPLAB Comments: At [facility] Medical Oncologypatients receive CBC w/auto Differential ONLY. Physicianwill place an order for a manual differential or Pathologistreview at his discretion. [facility]. [address] [place] [address] [address] RETAIL MAINTENANCE TECHNICIAN: JOSE KOHLI DO PH:[phone] performed at:[facility] [address] [place], [place] [id number] ; handled by evgeny Absolute Lymph 1.89 [...] W/Diff, Auto - EPLAB Only Comments: At [facility] Medical Oncologypatients receive CBC w/auto Differential ONLY. Physicianwill place an order for a manual differential or Pathologistreview at his discretion. [facility]. [address] [place] [address] [address] RETAIL MAINTENANCE TECHNICIAN: JOSE KOHLI DO PH:[phone] performed at:[facility] Laborato [address] [place], [place] [address] Absolute Neut 2.6 {X10_3/uL} (Normal) Range: 2.0-7.7 [...] Serum Creatinine AND GFR Comments: Test performed at:[facility] [address] [place], [place] [address] EST GFR - AA 62 mL/min (Normal) EST GFR 51 mL/min (Abnormal) CREAT,SERUM 1.12 mg/dL (Normal) Range: 0.55-1.20 Comments: Please note revised CREATININE reference range lsjavctws09/22/2015. 3-Mnp-222635:38 CBC W/Diff, Auto - EPLAB Only Comments: At [facility] Medical Oncologypatients receive CBC w/auto Differential ONLY. Physicianwill place an order for a manual differential or Pathologistreview at his discretion. [facility]. [address] [place] [address] [address] RETAIL MAINTENANCE TECHNICIAN: JOSE KOHLI DO PH:[phone] performed at:[facility] [id number] [place], [place] [address] Absolute Neut 3.0 {X10_3/uL} (Normal) Range: 2.0-7.7 [...] 4.2-5.4 WBC 5.8 K/mm3 (Normal) Range: 4.4-11.0 [id number] FLURESCNT ANTIB SCRN EA Comments: PATIENT WAS FASTINGPERFORMED BY: [employer] [id number] [facility] [id number] Information: [id number] ([id number]) celiac profile Immunoglobulin A, Qn, Serum 119 [...] IMMUNOASSAY, ANALYTE Comments: PATIENT WAS FASTINGPERFORMED BY: Secerno6370 [facility] [id number] (NON-INFECT) (08033) celiac profile Mitochondrial (M2) Antibody <20.0 {Units} (Normal) Range: 0.0-20.0 Comments: Negative 0.0 - 20.0 Equivocal 20.1 - 24.9 Positive >24.9 . Mitochondrial (M2) Antibodies are found in 90-96% of patients with primary biliary cirrhosis. 46-Qbk-159896:12 IGA/IGD/IGG/IGM-EACH (82187) Comments: PATIENT WAS FASTINGPERFORMED BY: [employer] Dkoger8630 [facility] [id number] Immunoglobulin E, Total 2 {IU/mL} (Normal) Range: 0-100 Immunoglobulin M, Qn, Serum 72 mg/dL (Normal) Range: 40-230 Immunoglobulin G, Qn, Serum 884 mg/dL (Normal) Range: 700-1600 07-Jrw-400533:12 METABOLIC PANEL, COMPREHENSIVE Comments: PATIENT WAS FASTINGPERFORMED BY: [employer] Lnshpi4803 [facility] [id number] (38530) ALT (SGPT) 12 [iU]/L (Normal) Range: 0-32 [...] Glucose, Serum 94 mg/dL (Normal) Range: 65-99 82-Ruo-712610:12 LIPID PANEL (20836) Comments: PATIENT WAS FASTINGPERFORMED BY: Tudoulin6370 [facility] [id number] LDL/HDL Ratio 1.2 {ratio_units} (Normal) Range: 0.0-3.2 [...] Cholesterol, Total 168 mg/dL (Normal) Range: 100-199 2-Fbh-145451:25 HgA1C , Office (22988) HgA1C , Office 5.8 % (Normal) Range: 4.6 - 7.1 05-Kzb-903081:0 COLON BIOPSY (CHOOSE See Note (Normal) Comments: Test performed at:[facility] [address] [place] [address] 4 SITE) Comments: Patient: LUPE LOPEZ : 1945 (69/F) Acct Num: [id number] Phys: Samm Boo Unit Num: [id number] Loc: LABSPEC Specimen: [id number] Received: 09/13/14 - 1610 Spec Type: C SYLVIEMARK BX TISSUES TISSUES: GROSS DESCRIPTION Received is one container labeled with the patient name and designated biopsy polyp at mid transverse. The specimen consists of one irreg ular fragment of light gonzalez soft tissue that measures 0.3 x 0.2 x 0.1 cm. The specimen is totallysubmitted in one cassette. / AM: 09/17/14 TC:5 CPT: 88505 HEADER OPERATION: Colonoscopy with biopsy PRE-OP DIAGNOSIS: Anemia TISSUE SUBMITTED: Biopsy polyp - mid transverse - rule out adenoma MICROSCOPIC DIAGNOSIS Mid transverse colon polyp, biopsy: Tubular adenoma. AM: 09/17 Signed [facility] 09/17/14 <signature on file> :58 CBC W/Diff, Auto - EPLAB Only Comments: At [facility] Oncologypatients receive CBC w/auto Differential ONLY. Physicianwill place an order for a manual differential or Pathologistreview at his discretion. [facility]. [address] [place] [address] [address] RETAIL MAINTENANCE TECHNICIAN: JOSE KOHLI DO PH:[phone] performed at:[facility] Laborato [address] [place], [place] [address] Absolute Neut 1.6 {X10_3/uL} Range: 2.0-7.7 (Abnormal) [...] BIOPSY See Note (Normal) Comments: Test performed at:[facility] [address] [place], [place] [address] 00 Comments: Patient: LUPE LOPEZ : 1945 (69/F) Acct Num: [id number] Phys: Evgeny Farmer Unit Num: [id number] Loc: [facility] Specimen: [id number] Received: 07/31/14 - 5 Spec Type: BMB TISSUES TISSUES: ADDENDUM Addendum Number 1 CYTOGENETICS REPORT FROM [facility] INTERPRETATION AND COMMENTS: Karyotype: 46,XX[20] A normal [...] and cytogenetics. / AM: 07/31/14 TC:5 CPT: 27358, 83505, 93289 x2, 36414 x3, 15087 BONE MARROW STUDY CBC DATE: 07/31/14 WBC [...] Highlights myeloid elements and megakaryocytes. COMMENT IHC ([id number]) supports the above diagnosis. Flow cytometry study from [facility] shows no phenotypic evidence of excess blasts, [...] - Smears and send outs Signed [facility] 08/06/14 <signature on file> : IMMUNOHISTOCHEMISTRY See Note (Normal) Comments: Test performed at:[facility] [address] [place], [place] [address] 00 Comments: Patient: LUPE LOPEZ : 1945 (69/F) Acct Num: [id number] Phys: Evgeny Farmer Unit Num: [id number] Loc: [place] Specimen: [id number] Received: 08/01/141157 Spec Type: IMMUN O TISSUES TISSUES: SPECIMEN INFORMATION: Tissue Source: Bone marrow biopsy and clot Clinical Info: Anemia Specimen Number: [id number] A AND B CPT code: 93375, 51734 x19 METHOD OLOGY: Deparaffinized sections of prefer/formalin-fixed [...] (11E3) negative BCL-2 (BCL2/100/D5) negative BCL- 6 (LN22/XN690K/A8) negative Cyclin D 1/BCL-1 (SP4) negative Block B CD3 (LN10/PS1) positive CD5 (4C7/SP10) positive CD10 (56C6) negative CD20 (MJ1/L26) negative CD23 (1B12) negative CD45 (X16/99/ RP2/18) positive CD79a (11E3) negative BCL-2 (BCL2/100/D5) positive BCL-6 (LN22/ZO238G/A8) nega tive Cyclin D1/BCL-1 (SP4) negative These tests were developed and their performance characteristics determined by [facility]. They may not have been cleared or approved by the U.S. Food and Drug Administration. The FDA has determined that such clearance or approval is not necessary. INTERPRETATION: A. Bone marrow biopsy: Polytypic lymphoid aggregates. B. Bone marrow clot: Polytypic lymphoid aggregates. Comment: There is no evidence of lymphoma. AM:jeniffer 08/02/14 PHYSICIAN AND INSTITUTION [place] [address] Signed Jose Kohli 08/06/14 <signature on file> :59 CBC W/Diff, Auto - EPLAB Only Comments: At [facility] Oncologypatients receive CBC w/auto Differential ONLY. Physicianwill place an order for a manual differential or Pathologistreview at his discretion. [facility]. [address] [place] [address] [address] RETAIL MAINTENANCE TECHNICIAN: JOSE KOHLI DO PH:[phone] performed at:[facility] Laborato [address] [place], [place] [address] Absolute Neut 2.3 {X10_3/uL} (Normal) Range: 2.0-7.7 [...] W/Diff, Auto - EPLAB Only Comments: At [facility] patientsreceive CBC w/auto Differential ONLY. Physician will placean order for a manual differential or Pathologist review athis discretion. [facility]. [address] [place] [address] [address] RETAIL MAINTENANCE TECHNICIAN: JOSE KOHLI DO PH:[phone] performed at:[facility] [address] [place] [address] Absolute Neut 2.0 {X10_3/uL} (Normal) [...] 4.2-5.4 WBC 4.0 K/mm3 (Abnormal) Range: 4.4-11.0 90-Jfg-49124:23 Comprehensive Metabolic Profil Comments: Serial Specimen #1, #2 or #3? 1Test performed at:[facility] [address] [place] [address] GAP 6 (Normal) Range: 5-15 [...] Specimen #1, #2 or #3? 1Test performed at:[facility] L[address]ks[address] [facility] [place] [address] FERRITIN 255 ng/mL (Abnormal) Range: 8-252 :23 Iron Comments: Serial Specimen #1, #2 or #3? 1Test performed at:[facility] [address] [place] [address] IRON 72 ug/dL (Normal) Range: 50-170 :23 Iron Binding Capacity,Total Comments: Serial Specimen #1, #2 or #3? 1Test performed at:[facility] [address] [facility] [place] [address] TIBC 320 ug/dL (Normal) Range: 250-450 :23 LDH 176 U/L (Normal) Comments: Serial Specimen #1, #2 or #3? 1Test performed at:[facility] [address] [facility] [place] [address] Range: 87-241 :23 Uric Acid Comments: Serial Specimen #1, #2 or #3? 1Test performed at:[facility] [address] [place] [address] URIC 5.2 mg/dL (Normal) Range: 2.6-6.0 :45 Copper, Serum or Plasma Comments: Test performed at:[facility] [address] [place] [address] COPPER 112 ug/dL (Normal) Range: 72-166 Comments: Detection Limit = 5Performed at: [facility] [address] [id number] Director: Scot Nuñez PhD, Phone: [phone] at: [facility] [id number] Director: Satish Mayer MD, Phone: [phone] :45 Lead, Blood Adult 16+yrs Comments: Test performed at:[facility] [address] [place] [address] LEAD *Form (Normal) Comments: None Detected Environmental Exposure: WHO Recommendation <20 Occupational Exposure: OSHA Lead Std 40 NIKI 30 Detection Limit = 1 8-Jre-795840:43 Comprehensive Metabolic Profil Comments: Serial Specimen #1, #2 or #3? 1Is Patient Taking Vitamins or Folic Acid Supplements? NTest performed at:[facility] [address] [place] [address] GAP 6 (Normal) Range: 5-15 [...] 7-18 GLU 86 mg/dL (Normal) Range: 70-110 9-Gfs-137326:43 Direct Antiglobulin Diann YUVAL Comments: Test performed at:[facility] [address] [place] [address] DIRECT DIANN= NEG w/POLYSPECIFIC (Normal) 9-Pbd-794498:43 Erythropoietin Comments: Is Patient Fasting? NTest performed at:[facility] [address] [place] [address] ERYTHROP [id number] 24.8 m[iU]/mL (Abnormal) Range: 2.6-18.5 4-Atk-694682:43 Ferritin Comments: Serial Specimen #1, #2 or #3? 1Is Patient Taking Vitamins or Folic Acid Supplements? NTest performed at:[facility] [address] [place] [address] FERRITIN 11 ng/mL (Normal) Range: 8-252 9-Huu-565760:43 Folates, (Folic Acid) Comments: Serial Specimen #1, #2 or #3? 1Is Patient Taking Vitamins or Folic Acid Supplements? NTest performed at:[facility] [address] [place] [address] FOLATES 48.80 ng/mL (Abnormal) Range: 3.1-17.5 1-Uip-400414:43 Haptoglobin Comments: Is Patient Fasting? NTest performed at:[facility] [address] [place], [place] [id number] HAPTOGLOB 1628 224 mg/dL (Abnormal) Range: 34-200 Comments: Performed at: - [facility] [id number] Director: Scot Nuñez PhD, Phone: [phone] 0-Nra-476316:43 THEE + Protein Elect, Serum Comments: Is Patient Fasting? NTest performed at:[facility] [address] [address] NOTE: Comment (Normal) Comments: Protein electrophoresis scan will follow via computer,mail, or m48 m60 armor crewman delivery. THEE RESULT,S Comment: (Normal) Comments: THEE SHOWS ATYPICAL LAMBDA. A/G RATIO 1.4 (Normal) Range: 0.7-2.0 GLOBULIN, TOTAL 2.8 g/dL (Normal) Range: 2.0-4.5 M-SPIKE (Normal) Comments: Not Observed GAMMA GLOBULIN 0.9 g/dL (Normal) Range: 0.5-1.6 BETA GLOBULIN 0.9 g/dL (Normal) Range: 0.6-1.3 FHNMO-1-GQDD 0.9 g/dL (Normal) Range: 0.4-1.2 FISUS-8-XNAD 0.3 g/dL (Normal) Range: 0.1-0.4 ALBUMIN 3.9 g/dL (Normal) Range: 3.2-5.6 IMMUNOGL M 1792 69 mg/dL (Normal) Range: 40-230 IMMUNO A 1784 133 mg/dL (Normal) Range: 91-414 IMMUNO G 1776 959 mg/dL (Normal) Range: 700-1600 PROTEIN,TOTAL 6.7 g/dL (Normal) Range: 6.0-8.5 0-Avq-268775:43 Iron Binding Capacity,Total Comments: Serial Specimen #1, #2 or #3? 1Is Patient Taking Vitamins or Folic Acid Supplements? NTest performed at:[facility] [address] [place] [address] TIBC 407 ug/dL (Normal) Range: 250-450 2-Bsd-715488:43 [place] Lambda Light Chains Comments: Is Patient Fasting? NTest performed at:[facility] [address] [place] [address] KAPPA/LAMBDA % 1.35 (Normal) Range: 0.26-1.65 FR LAMBDA LT CH 18.72 mg/L (Normal) Range: 5.71-26.30 FR KAPPA LT CHN 25.25 mg/L (Abnormal) Range: 3.30-19.40 :43 LDH 173 U/L (Normal) Comments: Serial Specimen #1, #2 or #3? 1Is Patient Taking Vitamins or Folic Acid Supplements? NTest performed at:[facility] [address] [place] [address] Range: 87-241 6-Ffq-226842:43 Retic Panel Comments: Test performed at:[facility] [address] [place] [address] IPF 2.5 % (Normal) Range: [...] 3.00-15.90 RETIC 0.97 % (Normal) Range: 0.5-1.5 5-Jok-704999:43 Thyroid Stim Hormone (TSH) Comments: Serial Specimen #1, #2 or #3? 1Is Patient Taking Vitamins or Folic Acid Supplements? NTest performed at:[facility] [address] [place] [address] TSH 1.87 {uIU/mL} (Normal) Range: 0.358-3.74 9-Zao-074012:43 Uric Acid Comments: Serial Specimen #1, #2 or #3? 1Is Patient Taking Vitamins or Folic Acid Supplements? NTest performed at:[facility] [address] [place] [address] URIC 5.0 mg/dL (Normal) Range: 2.6-6.0 :43 Vitamin B12 548 pg/mL (Normal) Comments: Test performed at:[facility] [address] [place] [id number] Range: 211-911 :42 CBC W/Diff, Auto - EPLAB Only Comments: At [facility] patientsreceive CBC w/auto Differential ONLY. Physician will placean order for a manual differential or Pathologist review athis discretion. [facility]. [address] [place] [address] [place] [address] RETAIL MAINTENANCE TECHNICIAN: JOSE KOHLI DO PH:[phone] performed at:[facility] [address] [place] [id number] Absolute Neut 2.6 {X10_3/uL} (Normal) Range: 2.0-7.7 [...] PANEL, COMPREHENSIVE Comments: PATIENT WAS FASTINGPERFORMED BY: [facility] HospitalZsyecz0029 [facility] [id number] (84118) ALT (SGPT) 5 [iU]/L (Normal) Range: 0-32 [...] Glucose, Serum 96 mg/dL (Normal) Range: 65-99 74-Vcp-16651:56 LIPID PANEL (06906) Comments: PATIENT WAS FASTINGPERFORMED BY: [facility] HospitalZeyuce8421 [facility] [id number] LDL/HDL Ratio 1.3 {ratio_units} (Normal) Range: 0.0-3.2 [...] DIFF WBC Comments: PATIENT WAS FASTINGPERFORMED BY: [facility] HospitalChvmky3410 [facility] [id number] Information: [id number] (96517) Immature Grans (Abs) 0.0 {x10E3/uL} (Normal) Range: [...] Random Urine Comments: PATIENT WAS FASTINGPERFORMED BY: [employer] EnergyEssex County HospitalDhhhnz8112 [facility] [id number] Please note: SPRCS (Normal) Comments: Protein electrophoresis scan will follow via computer, mail, orcourier delivery. M-Abhinva, % Not Observed % (Normal) Gamma Globulin, U 19.9 % (Normal) Beta Globulin, U 25.8 % (Normal) Rzmog-7-Ettmjzzm, U 12.8 % (Normal) Saunb-5-Bcvlhjyq, U 1.3 % (Normal) Albumin, U 40.2 % (Normal) Protein,Total,Urine 13.5 mg/dL (Normal) Range: 0.0-15.0 :44 Protein Electro.,S Comments: PATIENT WAS FASTINGPERFORMED BY: [facility]GenEssex County HospitalFygiaq7591 [facility] [id number]; will review on 05/07 appt Please note: SPRCS (Normal) Comments: Protein electrophoresis scan will follow via computer, mail, orcourier delivery. A/G Ratio 1.2 (Normal) Range: 0.7-2.0 Globulin, Total 3.0 g/dL (Normal) Range: 2.0-4.5 M-Abhinav Not Observed g/dL (Normal) Gamma Globulin 1.0 g/dL (Normal) Range: 0.5-1.6 Beta Globulin 0.8 g/dL (Normal) Range: 0.6-1.3 Wjwva-5-Pmoyvdjs 0.9 g/dL (Normal) Range: 0.4-1.2 Ymxop-7-Bwuwpllb 0.3 g/dL (Normal) Range: 0.1-0.4 Albumin 3.7 g/dL (Normal) Range: 3.2-5.6 Protein, Total, Serum 6.7 g/dL (Normal) Range: 6.0-8.5 Written Authorization WAR (Normal) Comments: PATIENT WAS FASTINGPERFORMED BY: [facility] EnergyEssex County HospitalAayrgc5992 [facility] [id number] :44 Comments: Written Authorization Received.Authorization received from ENRIKE JAIMES [id number] by Jyothi Boland 9-Xox-426217:44 LIPID PANEL (33823) Comments: PATIENT WAS FASTINGPERFORMED BY: [employer] Ejagrt3386 [facility] [id number] LDL/HDL Ratio 1.9 {ratio_units} (Normal) Range: 0.0-3.2 [...] Cholesterol, Total 211 mg/dL (Abnormal) Range: 100-199 6-Ucr-413179:37 FECAL OCCULT- Tubes sent home (13810) FECAL OCCULT HGB ASSAY, QUAL, 1-3 SIMULTANEOU positive (Normal) 3-Rpk-640177:44 RETICULOCYTE COUNT [facility] COR[facility]ATIONL Comments: PATIENT WAS FASTINGPERFORMED BY: [employer] Txsyrt6251 [facility] [id number] (50444) Reticulocyte Count 1.6 % (Normal) Range: 0.6-2.6 2-Iud-771074:44 LDH (LD) (LACTATE DEHYDROGENASE) Comments: PATIENT WAS FASTINGPERFORMED BY: Boni70 [facility] [id number] (93671) LDH 207 [iU]/L (Normal) Range: 119-226 0-Kug-083519:44 IRON BINDING CAPACITY (TIBC) Comments: PATIENT WAS FASTINGPERFORMED BY: Boni70 [facility] [id number] (96198) Iron Saturation 16 % (Normal) Range: 15-55 Iron, Serum 50 ug/dL (Normal) Range: 35-155 UIBC 270 ug/dL (Normal) Range: 150-375 Iron Bind.Cap.(TIBC) 320 ug/dL (Normal) Range: 250-450 :44 FERRITIN (40034) Comments: PATIENT WAS FASTINGPERFORMED BY: [facility] [id number] Ferritin, Serum 84 ng/mL (Normal) Range: 15-150 :44 CBC W/AUTO DIFF WBC (84780) Comments: PATIENT WAS FASTINGPERFORMED BY: [facility]CoEs[facility] HospitalNxsdqu6932 [facility] [id number] Immature Grans (Abs) 0.0 {x10E3/uL} (Normal) Range: [...] CREATININE RATIO Comments: PATIENT WAS FASTINGPERFORMED BY: [employer] Pevczb9206 [facility] [id number] (10249) AND (16699) Microalb/Creat Ratio 21.9 {mg/g_creat} (Normal) Range: 0.0-30.0 Microalbumin, Urine 22.0 ug/mL (Abnormal) Range: 0.0-17.0 Creatinine, Urine 100.3 mg/dL (Normal) Range: 15.0-278.0 :44 Hemoglobin Glyclated (HGB A1C) Comments: PATIENT WAS FASTINGPERFORMED BY: [employer] Zakada [facility] [id number] (12004) Hemoglobin A1c 5.5 % (Normal) Range: 4.8-5.6 Comments: . Increased risk for diabetes: 5.7 - 6.4 Diabetes: >6.4 Glycemic control for adults with diabetes: <7.0 :39 Microscopic Examination Comments: PATIENT NOT FASTINGPERFORMED BY: Effortless EnergyNew Sunrise Regional Treatment CenterRarsbb9175 [facility] [id number] Bacteria Few (Normal) Mucus Threads Present (Normal) Epithelial Cells (non renal) 0-10 {/hpf} (Normal) Range: 0 - 10 RBC 0-2 {/hpf} (Normal) Range: 0 - 2 WBC 6-10 {/hpf} (Abnormal) Range: 0 - 5 :37 D-Dimer (39871) Comments: PATIENT NOT FASTINGPERFORMED BY: SonnedixCarondelet HealthSfydcq5061 [facility] [id number] Information: [id number] D-Dimer 0.84 {mg/L_FEU} (Abnormal) Range: 0.00-0.49 Comments: In conjunction with a non-high clinical probability assessment, anormal (<0.50 mg/L FEU) result excludes deep vein thrombosis (DVT)and pulmonary embolism (PE) with high sensitivity. :39 Vitamin D Hydroxy (93214) Comments: PATIENT NOT FASTINGPERFORMED BY: [facility] Sxedrr6495 [facility] [id number] Vitamin D, 25-Hydroxy 38.7 ng/mL (Normal) Range: 30.0-100.0 Comments: Vitamin D deficiency has been defined by the [place] ofMedicine and an Endocrine Society practice guideline as alevel of serum 25-OH vitamin D less than 20 ng/mL (1,2).The Endocrine Society went on to further define vitamin Dinsufficiency as a level between 21 and 29 ng/mL (2).1. IOM ([place] of Medicine). 2010. Dietary reference intakes for calcium and D. [place]: The National Academies Press.2. Jose Carlos MF, Flip SIFUENTES, David ROME, et al. Evaluation, treatment, and prevention of vitamin D deficiency: an Endocrine Society clinical practice guideline. JCEM. 2010; 96(7):1911-30. :39 Valproic Acid (00424) Comments: PATIENT NOT FASTINGPERFORMED BY: CB [facility] Jslxfl[address] [place] [id number] Valproic Acid (Depakote),S 105 ug/mL (Abnormal) Range: 50-100 Comments: Detection Limit = 4 <4 indicates None Detected . Toxicity may occur at levels of 100-500. Measurements of free unbound valproic acid may improve the assess- ment of clinical response.Patient drug level exceeds published reference range. Evaluateclinically for signs of potential toxicity. 02-Mxn-732720:39 VITAMIN B-12 (CYANOCOBALAMIN) Comments: PATIENT NOT FASTINGPERFORMED BY: CB [facility] Wgtysr1404 [address] [place] [id number] (94583) Vitamin B12 1017 pg/mL (Abnormal) Range: 211-946 87-Wpk-066041:39 FERRITIN (64625) Comments: PATIENT NOT FASTINGPERFORMED BY: CB [facility] Betymx5691 [address] Road[address]ublin [place] [id number] Ferritin, Serum 77 ng/mL (Normal) Range: 15-150 64-Uug-490956:39 IRON (93697) Comments: PATIENT NOT FASTINGPERFORMED BY: CB [facility] Jpjstb6532 [address] Road[address] [place] [id number] Iron, Serum 32 ug/dL (Abnormal) Range: 35-155 94-Gbu-600198:39 CBC W/AUTO DIFF WBC Comments: PATIENT NOT FASTINGPERFORMED BY: [facility]CoEs[facility] HospitalGrrbna9536 [facility] [id number] Information: [id number],2ND ORDER NO DRAW F EE (95644) Immature Grans (Abs) 0.0 {x10E3/uL} (Normal) Range: [...] 6.2 {x10E3/uL} (Normal) Range: 3.4-10.8 :39 TSH (08316) Comments: PATIENT NOT FASTINGPERFORMED BY: [facility]Co[facility] HospitalWzklzj2285 [facility] [id number] TSH 1.800 {uIU/mL} (Normal) Range: 0.450-4.500 56-Bmb-882926:39 URINALYSIS, W/ MICRO (88866) Comments: PATIENT NOT FASTINGPERFORMED BY: SynGenEs[facility] HospitalBcrzsb5969 [facility] [id number] Microscopic Examination See below: (Normal) Comments: Microscopic was indicated and was performed. Nitrite, Urine Negative (Normal) Urobilinogen,Semi-Qn 0.2 mg/dL (Normal) Range: 0.0-1.9 Bilirubin Negative (Normal) Occult Blood Negative (Normal) Ketones Negative (Normal) Glucose Negative (Normal) Protein Negative (Normal) WBC Esterase 1+ (Abnormal) Appearance Clear (Normal) Urine-Color Yellow (Normal) pH 6.5 (Normal) Range: 5.0-7.5 Specific [place] 1.013 (Normal) Range: 1.005-1.030 :39 METABOLIC PANEL, COMPREHENSIVE Comments: PATIENT NOT FASTINGPERFORMED BY: [facility] Ncjwyl6521 [facility] [id number] (71454) ALT (SGPT) 5 [iU]/L (Normal) Range: 0-32 [...] Syncope Planned Observations CBC with auto diff (62673)Indication: Elevated hemoglobin A1c On: 10-Fth-267770:16 Request METABOLIC PANEL, COMPREHENSIVE (57747)Indication: Elevated hemoglobin A1c On: 29-Rys-499335:16 Request HGB A1C (48959)Indication: Elevated hemoglobin A1c On: 87-Adx-276973:16 Request LIPID PANEL (10336)Indication: Other hyperlipidemia On: 55-Mhu-728607:16 Request TSH (92244)Indication: Abnormal TSH On: 26-Txe-647478:09 Request TSH (THYROID STIMULATING HORMONE) (79178)Indication: Abnormal TSH On: 71-Wwp-809299:15 Request LIPID PANEL (57655)Indication: Other hyperlipidemia On: 95-Pvh-604233:14 Request CBC with auto diff (13398)Indication: Elevated hemoglobin A1c On: 04-Yyw-667989:14 Request METABOLIC PANEL, COMPREHENSIVE (28750)Indication: Elevated hemoglobin A1c On: 14-Ohg-615277:14 Request HGB A1C (95780)Indication: Elevated hemoglobin A1c On: 97-Jna-789414:14 Request CBC W/AUTO DIFF WBC (98838)Indication: Anemia On: 11-Ijj-756142:30 Request CBC with auto diff (93931)Indication: Anemia On: 59-Zxb-113679:02 Request METABOLIC PANEL, COMPREHENSIVE (48866)Indication: Impaired Fasting Glucose (Renamed from Elevated fasting blood sugar) On: 35-Fhd-416893:02 Request TSH (43106)Indication: Abnormal TSH On: 87-Tjr-217089:01 Request SED RATE ERYTHROCYTE (01806)Indication: Anemia On: :58 Request C-REACTIVE PROTEIN (44636)Indication: Anemia On: :58 Request FOLIC ACID SERUM (06155)Indication: Anemia On: :58 Request VITAMIN B-12 (CYANOCOBALAMIN) (48398)Indication: Anemia On: :58 Request IGA/IGD/IGG/IGM-EACH (53562)Indication: Anemia On: 46-Irg-626989:33 Request CBC W/AUTO DIFF WBC (22614)Indication: Impaired Fasting Glucose (Renamed from Elevated fasting blood sugar) On: 94-Tpk-622832:31 Request METABOLIC PANEL, COMPREHENSIVE (95327)Indication: Impaired Fasting Glucose (Renamed from Elevated fasting blood sugar) On: 07-Guh-968800:31 Request Vitamin D Hydroxy (84139)Indication: Other osteoporosis On: 92-Wwl-954770:22 Request CBC with auto diff (39672)Indication: Anemia On: 62-Pmm-659230:22 Request TSH (THYROID STIMULATING HORMONE) (44438)Indication: Abnormal TSH On: 61-Sxx-115917:21 Request HGB A1C (09975)Indication: Impaired Fasting Glucose (Renamed from Elevated fasting blood sugar) On: 62-Myk-986021:21 Request serum immunofixation (50403)Indication: Anemia On: 78-Lgv-835996:21 Request urine immunofixation ([id number])Indication: Anemia On: 27-Alk-510272:21 Request LIPID PANEL ([id number])Indication: Other hyperlipidemia On: :15 Request METABOLIC PANEL, COMPREHENSIVE (36504)Indication: Hypertension, benign On: 38-Zkj-557234:14 Request LIPID PANEL (28613)Indication: Fibromyalgia (Renamed from Diffuse myofascial pain syndrome) On: 27-Vbc-205777:14 Request TSH (THYROID STIMULATING HORMONE) ([id number])Indication: Abnormal TSH On: 5-Kkf-613344:15 Request HGB A1C (42555)Indication: Impaired Fasting Glucose (Renamed from Elevated fasting blood sugar) On: :15 Request CBC with auto diff ([id number])Indication: Hypertension, benign On: :15 Request METABOLIC PANEL, COMPREHENSIVE ([id number])Indication: Hypertension, benign On: 2-Gjc-389098:15 Request LIPID PANEL (63543)Indication: Other hyperlipidemia On: :14 Request ASSAY, TROPONIN, QUANTITATIVE (aka Troponin I) (42858)Indication: Atypical chest pain On: 6-Mrj-975378:02 Request TSH ([id number])Indication: Abnormal TSH On: 7-Tik-691519:56 Request CBC WITH MANUAL DIFF ([id number])Indication: Other specified nutritional anemias On: 4-Ilh-631394:48 Request Comments: 1 month TSH (THYROID STIMULATING HORMONE) (32461)Indication: Hypertension, benign On: :15 Request Iron (15499)Indication: Anemia On: 2-Ubr-894735:59 Request METABOLIC PANEL, COMPREHENSIVE (83121)Indication: Other osteoporosis On: :01 Request Vitamin D Hydroxy (86883)Indication: Other osteoporosis On: :37 Request LIPID PANEL (27442)Indication: Other hyperlipidemia On: :36 Request HGB A1C (48139)Indication: Impaired Fasting Glucose (Renamed from Elevated fasting blood sugar) On: :35 Request MICROALBUMIN: CREATININE RATIO (80806) AND ([id number])Indication: Impaired Fasting Glucose (Renamed from Elevated fasting blood sugar) On: :35 Request Metabolic Panel, Comprehensive ([id number])Indication: Gastroenteritis On: 52-Agc-390232:09 Request CBC, Platelets & Auto Diff (37144)Indication: Gastroenteritis On: 03-Nws-545520:09 Request Sed Rate Erythrocyte (58615)Indication: Gastroenteritis On: 30-Vok-282380:09 Request CBC WITH MANUAL DIFF ([id number])Indication: Anemia On: 3-Fpi-626604:12 Request Comments: 6 weeks TSH (85647)Indication: Abnormal TSH On: 2-Gze-146434:11 Request Comments: 6 weeks VITAMIN B-12 (CYANOCOBALAMIN) (51635)Indication: Anemia On: 61-Zbx-27780:39 Request TSH ([id number])Indication: Abnormal TSH On: 65-Fjh-29321:40 Request CBC W/AUTO DIFF WBC (30907)Indication: Anemia On: :40 Request TSH (80242)Indication: Abnormal TSH On: 45-Ali-73191:25 Request Comments: ADD ON METABOLIC PANEL, COMPREHENSIVE (85730)Indication: Impaired Fasting Glucose (Renamed from Elevated fasting blood sugar) On: :43 Request Anti-TPO Antibody ([id number])Indication: Abnormal TSH On: :42 Request T4, FREE (THYROXINE) ([id number])Indication: Abnormal TSH On: :42 Request T3, FREE (TRIDOTHYRONINE) (32682)Indication: Abnormal TSH On: :42 Request RHEUMATOID FACTOR-QUANT ([id number])Indication: Chronic right shoulder pain On: :32 Request SED RATE ERYTHROCYTE (10961)Indication: Chronic right shoulder pain On: :32 Request C-REACTIVE PROTEIN ([id number])Indication: Chronic right shoulder pain On: :32 Request CBC W/AUTO DIFF WBC ([id number])Indication: Hypertension, benign On: :31 Request METABOLIC PANEL, COMPREHENSIVE ([id number])Indication: Hypertension, benign On: :31 Request LIPID PANEL ([id number])Indication: Other hyperlipidemia On: :31 Request TSH ([id number])Indication: Chest pain at rest On: :31 Request HGB A1C (81249)Indication: Impaired Fasting Glucose (Renamed from Elevated fasting blood sugar) On: 2-Xhj-811929:00 Request CBC with auto diff ([id number])Indication: Impaired Fasting Glucose (Renamed from Elevated fasting blood sugar) On: 4-Ixp-474307:00 Request METABOLIC PANEL, COMPREHENSIVE ([id number])Indication: Impaired Fasting Glucose (Renamed from Elevated fasting blood sugar) On: 4-Bxz-081581:00 Request LIPID PANEL (75897)Indication: Other hyperlipidemia On: 5-Qan-651185:00 Request VITAMIN B-12 (CYANOCOBALAMIN) ([id number])Indication: Other specified nutritional anemias On: 3-Dst-724746:59 Request Vitamin D Hydroxy (34481)Indication: Other osteoporosis On: 8-Apo-253000:59 Request CBC (AUTO) ([id number])Indication: Other osteoporosis On: 31-Xto-988351:48 Request Vitamin D Hydroxy (75811)Indication: Other osteoporosis On: :48 Request METABOLIC PANEL, COMPREHENSIVE (19049)Indication: Other hyperlipidemia On: :48 Request LIPID PANEL (98474)Indication: Other hyperlipidemia On: :48 Request SED RATE ERYTHROCYTE ([id number])Indication: Chest pain, unspecified type On: :39 Request Comments: stat C-REACTIVE PROTEIN ([id number])Indication: Chest pain, unspecified type On: :39 Request Comments: stat CBC W/AUTO DIFF WBC ([id number])Indication: Chest pain, unspecified type On: :39 Request Comments: stat Hemoglobin Glyclated (HGB A1C) (36589)Indication: Impaired Fasting Glucose (Renamed from Elevated fasting blood sugar) On: 33-Dxi-875758:50 Request URINALYSIS, W/ MICRO (06621)Indication: Hypertension, benign On: 42-Nep-693055:49 Request CBC with auto diff ([id number])Indication: Other specified nutritional anemias On: 40-Etr-294441:49 Request METABOLIC PANEL, COMPREHENSIVE (21076)Indication: Other specified nutritional anemias On: 58-Guh-822447:49 Request LIPID PANEL ([id number])Indication: Other hyperlipidemia On: 69-Vsi-397214:49 Request CBC W/AUTO DIFF WBC ([id number])Indication: Other specified nutritional anemias On: :24 Request METABOLIC PANEL, COMPREHENSIVE (80802)Indication: Other hyperlipidemia On: :24 Request LIPID PANEL (07966)Indication: Other hyperlipidemia On: :24 Request IRON ([id number])Indication: Other specified nutritional anemias On: 9-Wia-979395:37 Request Planned Encounters Medical; [facility] 3 Month FU - On: 22-Feb-2018 13:00 [facility] Fast DO, Enrike A Fast DO, Enrike A Planned Procedures Radiology - Cervical SpineBy: Fast On: 19-Nov-2017 Intent DO, Enrike A Fast DO, Enrike A Cartoid DopplerBy: Fast DO, Enrike A On: 17-Nov-2017 Intent Fast DO, Enrike A SCREENING DIGITAL TOMOSYNTHESIS OF On: 17-Nov-2017 Intent BREAST ([id number])By: Fast DO, Enrike A Fast DO, Enrike A MRI OF THORACIC SPINE WITHOUT On: 13-Aug-2017 Intent CONTRAST ([id number])By: Fast DO, Enrike A Fast DO, Enrike A MRI LUMBAR SPINE W/O CONTRAST On: 13-Aug-2017 Intent ([id number])By: Fast DO, Enrike A Fast DO, Enrike A INJECTION, PROLIA ([id number])By: Fast On: 26-Jul-2017 Intent DO, Enrike A Fast DO, Enrike A Comments: Prolia prefilled syringe 60mg/mlLot:[id number]:10/2019L arm SQPt tolerated wellMLONG ,CASING FINISHER AND STUFFER Radiology - Lumbar SpineBy: Fast DO, On: 09-Jun-2017 Intent Enrike A Fast DO, Enrike A Radiology - Thoracic SpineBy: Fast On: 09-Jun-2017 Intent DO, Enrike A Fast DO, Enrike A MRI OF BRAIN WITH AND WITHOUT On: 13-Apr-2017 Intent CONTRAST ([id number])By: Fast DO, Enrike A Fast DO, Enrike A ELECTROCARDIOGRAM, COMPLETE (ECG) On: 13-Apr-2017 Intent ([id number])By: Fast DO, Enrike A Fast DO, Comments: [...] DIGITAL TOMOSYNTHESIS OF On: 30-Sep-2016 Intent BREAST ([id number])By: Fast DO, Enrike A Comments: end of oct Fast DO, Enrike A CT - Chest (Without Contrast)By: On: 30-Sep-2016 Intent Fast DO, Enrike A Fast DO, Enrike A Cartoid DopplerBy: Fast DO, Enrike A On: 04-Sep-2016 Intent Fast DO, Enrike A DEXA SCAN AXIAL SKELETON ([id number])By: On: 04-Sep-2016 Intent Fast DO, Enrike A Fast DO, Enrike A Comments: mid september INJECTION, PROLIA ([id number])By: Fast On: 26-Aug-2016 Intent DO, Enrike A Fast DO, Enrike A Comments: prolialot:[id number]:1218site:lt subqroute:subqdose:60mg/mlD.ARNOLDO Ardon ELECTROCARDIOGRAM, COMPLETE (ECG) On: 22-Jul-2016 Intent ([id number])By: Fast DO, Enrike A Fast DO, Comments: ekg showed normal sinus rhythym, normal axis, no acute st/t wave changes Enrike A Cartoid DopplerBy: Fast DO, Enrike A On: 25-May-2016 Intent Fast DO, Enrike A Comments: bilateral INFUSION, NORMAL SALINE SOLUTION , On: 09-Apr-2016 Intent 1000 CC (Special Coverage Instructions Apply. See MCM: 2049) ([id number])By: Madyson Montiel MD ELECTROCARDIOGRAM, COMPLETE (ECG) On: 12-Feb-2016 Intent ([id number])By: Matt DO, Enrike A Fast DO, Comments: ekg showed normal sinus rhythym, normal axis, no acute st/t wave changes Enrike A CT - Chest (Without Contrast)By: On: 12-Feb-2016 Intent Fast DO, Enrike A Fast DO, Enrike A Flu Vaccine (Quadrivalent) 60613Qm: On: 12-Feb-2016 Intent Fast DO, Enrike A Fast DO, Enrike A Comments: FLUlot: [id number]:08/05site:Lt deltoidroute:IMdose:.5mlARNOLDO WALLACE ADMINISTRATION OF INFLUENZA VIRUS On: 12-Feb-2016 Intent VACCINE ([id number])By: Fast DO, Enrike A Fast DO, Enrike A MAMMOGRAM, SCREENING, BOTH BREAST On: 13-Nov-2015 Intent ([id number])By: Fast DO, Enrike A Fast DO, Enrike [...] Intent Fast DO, Enrike A ZOSTER VACC, SC ([id number])By: eRva, On: 06-Mar-2015 Intent Elliott Comments: Zosterlot:[id number]:01/26/16ite:lt subqroute:subqDEMICK, SMA PNEUM VAC ADLT/IMUMNOSPR, SBC/INTRM On: 20-Feb-2015 Intent ([id number])By: Visit, Nurse Comments: Pnuemovaxlot:[id number]:10/30/16site:lt deltoidroute:IMDose:.5mlDEMICK, SMA Flu Vaccine (Quadrivalent) [id number]: On: 11-Feb-2015 Intent Fast DO, Enrike A Fast DO, Enrike A Comments: Lot #:[id number] date: 08/2015Amount given:prefilled syringeSite given:L Dltd, IMGiven by: MARGOTH Garibay and ABN signed ADMINISTRATION OF INFLUENZA VIRUS On: 11-Feb-2015 Intent VACCINE ([id number])By: Fast DO, Enrike A Fast DO, Enrike A MAMMOGRAM, SCREENING, BOTH BREAST On: 25-Sep-2014 Intent ([id number])By: Fast DO, Enrike A Fast DO, Enrike [...] 17-Apr-2014 Intent CHEST WITH AND WITHOUT CONTRAST ([id number])By: Fast DO Enrike A Fast DO, Enrike A CT - Brain/HeadBy: Fast DO, Enrike A On: 16-Apr-2014 Intent Fast DO, Enrike A Doppler Ultrasound OtherBy: Fast DO, On: 16-Apr-2014 Intent Enrike A Fast DO, Enrike A EKG (53482)By: Fast DO Enrike A On: 16-Apr-2014 Intent [...] [facility]int [facility] she did get rest of squamous cell removed taken off arm -was benign and saw Christopher does hae arthritis in knee he gave [...] for copd/cough - and was back at [facility] they monitoring her = bp is [...] The patient does have durable power of commercial real estate attorney and l iving will (she thinks). The patient has noticed staying at home rather than doing something new or going out and lack of energy. Other providers contributing to the patient's care are sample puller (Dr. Cota), console operator (Dr. Pop) and other: (Simulation Specialist- Dr. Villa sees eye dr mann.). Note [...] with dosing regimen and considered effective by patimonika End: 20-Jun-2015 12:12 nt. Patient sleeps 7 [...] Limb swelling), Fatigue [facility] Payers [employer]/Medicare Adv Olivia LOPEZ; a guarantor
--- OUTSIDE RECORDS SUMMARY | 2018-04-13 15:22 | XMS RPT_ITS | Continuity of Care Document ---
:1945 Author Organization [facility] Address [address] [facility] [address] [place] [address] Phone Care Team Providers Name Role Phone Enrike Jaimes DO Unavailable Cipriano JC, Mike Avelar Unavailable Dayron Monique Unavailable Domenic Navarrete [place] Unavailable Steven Carlisle MD Unavailable [facility] Unavailable Phong Graham Unavailable MONICA Ruelas [...] Quantity: 90 {Tablet} Refills: 3 Ordered:09-Oct-2017 Fast DOEnrike DO, Debra A Start : 09-Oct-2017 Active ASPIRIN LOW DOSE, 81MG (Oral Tablet) 1 tab daily (81 MG) Active Atorvastatin Calcium 80 MG Oral Tablet 1 (one) Tablet daily for 30 days Quantity: 30 {Tablet} Refills: 3 Ordered:13-Aug-2017 Matt MCDUFFIEFaviocatalina HUSAINnj MCDUFFIE Enrike A Start : 13-Aug-2017 Active CALCIUM, 500MG (Oral Tablet) 2 tabs daily (500 MG) Active Carvedilol 25 MG Oral Tablet 1/2 Tablet bid for 90 days Quantity: 90 {Tablet} Refills: 3 Ordered:25-Jan-2017 Matt MCDUFFIEEnrike DO, Debra A Start : 25-Jan-2017 Active Dexilant 60 MG Oral Capsule Delayed Release 1 (one) Capsule DR daily for 90 days Quantity: 90 {Capsule} Refills: 3 Ordered:25-Jan-2017 Matt MCDUFFIEEnrike DO, Debra A Start : 25-Jan-2017 Active DULoxetine HCl 60 MG Oral Capsule [...] 30 {Tablet} Refills: 6 Ordered:04-Nov-2017 Matt MCDUFFIEEnrike DO, Debra A Start : 04-Nov-2017 Active Levothyroxine Sodium 25 MCG Oral Tablet 1 (one) Tablet qd for 0 days Quantity: 34 {Tablet} Refills: 4 Ordered:17-Nov-2017 Matt MCDUFFIEEnrike DO, Debra A Start : 17-Nov-2017 Active Comments:2 on sundays Losartan Potassium-HCTZ 100-25 MG Oral Tablet 1 (one) Tablet qd for 90 days Quantity: 90 {Tablet} Refills: 3 Ordered:25-Jan-2017 Matt MCDUFFIEEnrike DO, Debra A Start : 25-Jan-2017 Active Meloxicam 15 MG Oral Tablet 1 (one) Tablet daily for 90 days Quantity: 90 {Tablet} Refills: 3 Ordered:17-May-2018 Enrike Jaimes DO, DO, Debra A Start : 05-Aug-2017 Active [...] 12-Jul-2017 Active Comments:Pt gets funding thru the [employer] so send a bill to either them or the pt and then they will [id number] 07/28/16 RaNITidine HCl 300 MG Oral Tablet [...] 500MG (Oral Tablet) 1 (one) Tablet daily [id number] for 14 days Quantity: 14 {Tablet} Refills: 0 Ordered:23-Apr-2014 Matt MCDUFFIE Enrike HUSAINEnrike mauro DO A Start : 23-Apr-2014 End : 07-May-2014 Inactive Comments:with probiotic PredniSONE 10 MG Oral Tablet 3 (three) Tablet pills for 3 days 2 pils for 3 days 1 pill for 3 days for 0 days Quantity: 18 {Tablet} Refills: 0 Ordered:26-Mar-2017 Matt MCDUFFIE Enrike HUSAINFavio mauro DOa A Start : 02-Feb-2017 End : 26-Mar-2017 Inactive Comments:take with food in [facility] meloxicam while on this Promethazine HCl 12.5 MG Oral Tablet 1 (one) Tablet q 6 hours prn for 0 days Quantity: 20 {Tablet} Refills: 0 Ordered:14-Apr-2016 MONICA Ruelas Start : 09-Apr-2016 End : 14-Apr-2016 Inactive Comments:twenty TRAMADOL HCL, 50MG (Oral Tablet) 1 (one) Tablet daily for 30 days Quantity: 30 {Tablet} Refills: 0 Ordered:24-Oct-2014 Matt MCDUFFIE Enrike HUSAINEnrike mauro DO A Start : 24-Oct-2014 End : 23-Nov-2014 [...] {Tablet} Refills: 0 Ordered:13-Nov-2014 Matt MCDUFFIE Enrike HUSAINEnrike mauro DO A Start : 13-Nov-2014 End : 13-Nov-2014 [...] evualate at home with meds and ib [facility] labs. i went to house, [facility], told her brat diet slowly, my [...] Completed Sinus Surgery Completed Date Value Details 23-Dec-2017 Cerv Spine 2 or 3 Views Result: Comments: See Note; NOTES: [facility] Imaging Services [address] [place] [address] Cerv Spine 2 or 3 Views MR#: [id number] Acct: [id number] Name: LUPE LOPEZ Rep #: [id number] : 1945 F 72 From: Ming Odonnell MD PCP: Enrike Jaimes DO Status: REG CLI Study: Cerv Spine 2 or 3 Views Date of Exam: 12/23/17 Exam# [id number] Ordering Dr: Karla Berry CALIBRATION TESTER-C STUDY: X-RAY - C ERVICAL SPINE REASON [...] Fax CC: Enrike Jaimes DO; Karla Berry Investigator Fraud: Signed 23-Dec-2017 Thoracic Spine 2 Views Result: Comments: See Note; NOTES: [facility] Imaging Services [address] [place] [address] Thoracic Spine 2 Views MR#: [id number] Acct: [id number] Name: LUPE LOPEZ Rep #: [id number] : 1945 F 72 From: Ming Odonnell MD PCP: Enrike Jaimes DO Status: REG CLI Study: Thoracic Spine 2 Views Date of Exam: 12/23/17 Exam# [id number] Ordering Dr: Karla Berry STUDY: X-RAY - [...] EDT , Service support , CC: Enrike Jamies DO; Karla LOPEZ Prebish Investigator Fraud: Signed 11-Dec-2017 Carotid Duplex Ultrasound Result: Comments: See Note; NOTES: [facility] Cardiovascular Services [address] [place] [address] Carotid Duplex Ultrasound 12/10/17 1013 MR#: [id number] Acct: [id number] Name: LUPE BOOGIE Rep #: [id number] : 1945 72 From: Brice Murphy MD [...] the left vertebral artery. Procedure Carotid Duplex 13409. Exam performed in department. Interpretation Summary Mild (<50%) stenosis right extracranial inter nal carotid. Mild (<50%) stenosis left extracranial internal carotid. Flow within the vertebral arteries is antegrade bilaterally. Ordering Physician: Enrike Jaimes Referring Physician: Enrike Jaimes Performed By: Riaz Ashley RVT and Student 12/11/17 1406 Date Brice Murphy MD CC: Enrike Jaimes DO Date Dictated: 12/10/17 1013 Date Transcribed: 12/11/17 1406 Investigator Fraud: Signed 10-Dec-2017 SCREENING MAMM (CAD), BILAT Result: Comments: See Note; NOTES: [facility] Imaging Services [address] [place] [address] SCREENING MAMM (CAD), BILAT MR#: [id number] Acct: [id number] Name: LUPE LOPEZ Rep #: [id number] : 1945 F 72 From: Johnny Gilman MD PCP: Enrike Jaimes DO Status: [facility] Study: SCREENING MAMM (CAD), BILAT Date of Exam: 12/10/17 Exam# [id number] Ordering Dr: Enrike Jaimes DO MAMM OGRAPHY [...] will be sent to the patient by located within [facility] facility within 30 days. Approximately 10% of breast cancers are not detected by mammography. A normal mammogram should not delay biopsy of a clinically suspicious abnormality. [id number] Electronical ly Signed: Johnny Gilman MD at 13:14 EDT Tel [phone], Service support , CC: Enrike Jaimes DO Investigator Fraud: Signed 30-Nov-2017 Pulmonary Visit Report Result: Comments: See Note; NOTES: [facility] [address] [place] [address] OFFICE VISIT Date of Service: 11/30/17 MR#: [id number] Acct: [id number] Name: LUPE BOOGIE Rep #: [id number] : 1945 Provider: Merlin Pop MD Age/Sex: 72/F Location: [facility].W Status: Signed Assessment AND Plan Problems 1. [...] Orders: Medications Discontinued: azelastine admini ster into miip967.5 mcg (0.14 mL) Intranasal BIDJ30.2 Merlin Pop MD nostril Discontinued Reason: Pt no longer taking HPI 6 M FU: Chief Complaint: Chronic cough Details: Patient is a 72-year-old [facility] female, currently under care of Dr. 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 Analyst 0.5 mL IM Left Deltoid [id number] 07/19/17 80376-174-91 SEQIRUS VIS Given Date VIS Publication Date [...] Downtime Report Result: Comments: See Note; NOTES: [facility] Medical Records Department [address] [place] [address] Downtime Report MR#: [id number] Acct: [id number] Name: LUPE LOPEZ Rep #: [id number] : 1945 72 From: Turner Diop PCP: Enriek Jaimes DO Status: REG CLI This patient was seen during an EMR downtime August 23, 2017 - August 30, 2017. This patient may have a combination of rosa maria r and electronic documentation or all paper documentation. All documentation is viewable within the e-chart portion of [facility] for each patient visit. 27-Aug-2017 Spine Lumbar (Routine) Result: Comments: See Note; NOTES: [facility] Imaging Services [address] [place] [address] Spine Lumbar (Routine) MR#: [id number] Acct: [id number] Name: LUPE LOPEZ Rep #: [id number] : 1945 F 72 From: Carlos Pizano PCP: Enrike Jaimes DO Status: REG CLI Study: Spine Lumbar (Routine) Date of Exam: 08/25/17 Exam# [id number] Ordering Dr: Enrike Jaimes DO STUDY: MRI [...] suppo rt , CC: Enrike Jaimes DO Investigator Fraud: Signed 11-Aug-2017 Re-Evaluation - PT (1) Result: Comments: See Note; NOTES: [facility] Physical Therapy Health[address] [place] [address] Fax REEVALUATION / MEDICARE RECERTI FICATION PHYSICAL THERAPY MR#: [id number] Acct: [id number] Name: LUPE LOPEZ Rep #: [id number] : 1945 72 From: Shanon Ferrara MPT Referring DrBrooke: Enrike Jaimes DO Status: REG RCR Insurance: AN [employer] MEDICARE PPO SELF PAY INSURANCE Enrike Jaimes DO, It has been my pleasure to treat LUPE LOPEZ over the last 7 visits for LOW BACK PAIN. Please see the progress note below for an update on e physical therapy plan of care! Subjective: [...] 4-6 Weeks Goal Progress: Goal Met Antici brittanyed Interventions Patient/Client Instruction: Educate patient on: Condition, [...] do not hesitate to contact me at [phone] by phone or if you have questions or concerns regarding this new plan of care! Sincerely, Shanon Ferrara &#60 ;Electronically signed by Shanon Ferrara MPT> 08/11/17 1913 CC: Enrike Jaimes DO Signed For Medicare only, by signing this I certify the plan of care. Physicians Signature Date 27-Jul-2017 Oncology Visit Report Result: Comments: See Note; NOTES: [facility] Oncology [address] [place] [address] OFFICE VISIT Date of Service: 07/27/17 1128 MR#: [id number] Acct: [id number] Name: LUPE LOPEZ Rep #: [id number] : 1945 From: Red Spaulding MD Age/Sex: [...] continue Iron supplements with Vitamin C or [place] juice. RTC 6 months with CBC, CMP, Iron studies. Ia dications: Prescriptions This Visit Medication Instructions Recorded Meloxicam [Mobic] 15 mg PO DAILY 06/16/16 Rivaroxaban [Xarelto] 20 mg PO DAILY 06/29/16 Primary Care Provider: DO Louis Stone rring Provider: - Problem List (1) Iron deficiency Status: Resolved Code Visit Office Visits / Consults: 81657 OV L3 Est 07/27/17 1135 <Electronically signed by Red Spaulidng MD> Date [facility] Signature: Date (if applicable) CC: 15-Jul-2017 Stress Report Result: Comments: See Note; NOTES: [facility] Cardiovascular Services [address] [place] [address] MR#: [id number] Acct: [id number] Name: LUPE LOPEZ Rep #: [id number] : [birth year] 72 From: Mike Cota MD [...] %. This note was g enerated with Artist Growthation software. It may contain incorrect words, spelling, and punctuation that were not noted in checking the note before signing. 07/15/17 1311 <Electronically s igned by Mike Cota MD> Date Mike Cota MD CC: Enrike Jaimes DO; Mike Cota MD Date Dictated: 07/15/17 1307 Date Transcribed: 07/15/171306 Investigator Fraud: PM Signed 08-Jul-2017 Inital Evaluation (1) - PT Result: Comments: See Note; NOTES: [facility] Therapy [facility] [address] [place] [address]. [address] [place] [address] Fax REHABILITATION SERVICES INITIAL EVALUATION MR#: [id number] Acct: [id number] Name: LUPE LOPEZ Rep #: [id number] [...] to be FAXED BACK to us at [phone] for Medicare purposes. Please let me know if there are questions or concerns regarding this plan of care. Physician Signa stewart: Date: <Electronically signed by Domenic Ayala PT, Cert. FABRIZIO, OCS> 07/08/17 1332 CC: Enrike Jaimes DO D HEMA Signed For Medicare only, by signing this I certify the plan of care. Physicians Signature Date 05-Jul-2017 Cardiology Visit Report Result: Comments: See Note; NOTES: [facility] [address] [place] [address] OFFICE VISIT Date of Service: 07/05/17 MR#: [id number] Acct: [id number] Name: LUPE LOPEZ Rep #: [id number] : 1945 Provider: Mike Cota MD Age/Sex: 72/F Location: [facility] Status: Signed HPI HPI Details: [...] Her previous diagnostic cardiac cathete rization from [facility] from 05/03/2009 is as noted below. ASSESSMENT: 1. Mild to moderate coronary atherosclerosis, non-flow limiting by angiography. 2. Presered left eecl9wjzbm systolic a nd diastolic function. CLINICAL CORRELATION: This Is a 64-year-old wtio presents with angina ha1ng atypical features, she has nonflowIlmTting disease hr which aggressiw medical therapy is warranted Incl uding aspirin, beta jonn, DAPHNEY Inhibitor, and statin therapy. 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 She will also follow with her finance intern based on her underlying pulmonary disease process [...] disease) I25.10 Coronary Disease-Associated Arter y/Lesion type: [place] artery Hyperlipidemia, unspecified hyperlipidemia type E78.5 Hyperlipidemia type: unspecified Essential hypertension I10 Hypertension type: essential hypertension Chest pain, unspe cified type R07.9 Chest pain type: unspecified Coding Level of Care Code Off vis,est,level 4 Diagnoses Paroxysmal atrial fibrillation I48.0 CAD (coronary artery disease) I25.10 Coronary Disease-Assoc iated Artery/Lesion type: [place] artery Hyperlipidemia, unspecified hyperlipidemia type E78.5 Hyperlipidemia type: unspecified Essential hypertension I10 Hypertension type: essential hypertension Chest pain, unspecified type R07.9 Chest pain type: unspecified 07/05/17 1123 <Electronically signed by Mike Cota MD> Date Mike washburn MD Cosigner Signature: Date (if applicable) CC: Enrike Jaimes DO 05-Jul-2017 12 Lead EKG performed by [facility] Result: Comments: See Note; NOTES: [facility] [address] [place] [address] 12 Lead EKG performed by [facility] 07/05/17 1033 MR#: [id number] Acct: [id number] Name: LUPE SANDOVAL Rep #: [id number] : 1945 72 From: Mike Cota MD Attending Dr: Mike Cota MD Status: DEP [facility] Ordering Dr: Mike Cota MD Date: 07/05/17 Location: [facility] Sex: F C Admitted: BMS/12 Lead EKG performed by [facility] ECG Report Interpretation Sinus Bradycardia -First degree A-V block Poor R wave progressionElectronically signed on 2017 at 11:45 by Mike Cota 07/05/17 1146 Date Mike Cota MD CC: Enrike Jaimes DO Date Dictated: 07/05/17 1033 Date Transcribed: 07/05/17 1033 Investigator Fraud: PM Signed 16-Jun-2017 Pulmonary Visit Report Result: Comments: See Note; NOTES: [facility] [place] [address] OFFICE VISIT Date of Service: 06/16/17 MR#: [id number] Acct: [id number] Name: LUPE BOOGIE Rep #: [id number] : 1945 Provider: Kirsten Padilla Age/Sex: 72/F Location: [facility].PMW Status: Signed Assessment AND Plan 1. Moderate [...] PO DAILY 06/20/15 [History Confirmed 06/16/17] Ipratropium [place] 0.06% [ATROVENT NASAL SPRAY] 1 spray NASAL [...] BMI 26.0-26.9,adult (Chronic) Atherosclerotic heart disease of [place] coronary artery without angina pectoris (Chronic) [...] hand surgery (Resolved) Family History (Revie wed 18 @ 17:00 by JESSICA Sharma) Sister Breast [...] signed by Kirsten LOPEZ> Date Kirsten Padilla CALIBRATION TESTER-C Cosigner Signature: Date ___ (if applicable) CC: Enrike Jaimes DO 09-Jun-2017 L/S Spine Min 4 Views Result: Comments: See Note; NOTES: [facility] Imaging Services [address] [place] [address] L/S Spine Min 4 Views MR#: [id number] Acct: [id number] Name: LUPE LOPEZ Rep #: [id number] : 1945 F 72 From: Brennan Mike DO PCP: Enrike Jaimes DO Status: REG CLI Study: L/S Spine Min 4 Views Date of Exam: 06/09/17 Exam# [id number] Ordering Dr: Enrike Jaimes DO STUDY: X-RAY [...] Brennan Mike DO at 16:29 EDT Tel [phone], Service support , Fax CC: Enrike Jaimes DO Investigator Fraud: Signed 09-Jun-2017 Thoracic Spine 3 Views Result: Comments: See Note; NOTES: [facility] Imaging Services [address] [place] [address] Thoracic Spine 3 Views MR#: [id number] Acct: [id number] Name: CHASE LOPEZCatalina Rep #: [id number] : 1945 F 72 From: Jose Antonio Jensen PCP: Enrike Jaimes DO Status: REG CLI Study: Thoracic Spine 3 Views Date of Exam: 06/09/17 Exam# [id number] Ordering Dr: Enrike Jaimes DO STUDY: X-RAY [...] suppo rt , CC: Enrike Jaimes DO Investigator Fraud: Signed 19-Apr-2017 Brain W/WO Contrast Result: Comments: See Note; NOTES: [facility] Imaging Services [address] [place] [address] Brain W/WO Contrast MR#: [id number] Acct: [id number] Name: LUPE LOPEZ Rep #: [id number] : 1945 F 72 From: Steven Ratliff MD PCP: Enrike Jaimes DO Status: REG CLI Study: Brain W/WO Contrast Date of Exam: 04/19/17 Exam# [id number] Ordering Dr: Enrike Jaimes DO STUDY: MRI [...] Service support , CC: Enrike Jaimes DO Investigator Fraud: Signed 05-Jan-2017 Hepatobilliary Img w/Pharm Int Result: Comments: See Note; NOTES: [facility] Imaging Services [address] [place] [address] Hepatobilliary Img w/Pharm Int MR#: [id number] Acct: [id number] Name: LUPE LOPEZ Rep # : [id number] : 1945 F 71 From: Dom Sorto DO PCP: Enrike Jaimes DO Status: REG CLI Study: Hepatobilliary Img w/Pharm Int Date of Exam: 01/05/17 Exam# [id number] Ordering Dr: Enrike Jaimes DO CLI NICAL: [...] Service support , CC: Enrike Jaimes DO Investigator Fraud: Signed 23-Dec-2016 Gallbladder Result: Comments: See Note; NOTES: [facility] Imaging Services [address] [place] [address] Gallbladder MR#: [id number] Acct: [id number] Name: LUPE LOPEZ Rep #: [id number] : F 71 From: Terri Dash MD PCP: Enrike Jaimes DO Status: REG CLI Study: Gallbladder Date of Exam: 12/23/16 Exam# [id number] Ordering Dr: Enrike Jaimes DO US Gallbladder [...] Service support , CC: Enrike Jaimes DO Investigator Fraud: Signed 19-Nov-2016 SCREENING MAMM (CAD), BILAT Result: Comments: See Note; NOTES: [facility] Imaging Services [address] [place] [address] SCREENING MAMM (CAD), BILAT MR#: [id number] Acct: [id number] Name: LUPE LOPEZ Rep #: [id number] : 1945 F 71 From: Johnny Gilman MD PCP: Enrike Jaimes DO Status: REG CLI Study: SCREENING MAMM (CAD), BILAT Date of Exam: 11/19/16 Exam# [id number] Ordering Dr: Enrike Jaimes DO MAMM OGRAPHY [...] clinically suspicious abnormality. RS20 15 Electronically Signed: oJhnny Gilman MD at 11:14 EDT Tel [phone], Service support , CC: Enrike Jaimes DO Investigator Fraud: Signed 17-Nov-2016 6 Minute Walk Test Result: Comments: See Note; NOTES: [facility] Pulmonary Services/Neurology [address] [place] [address] MR#: [id number] Acct: [id number] Name: LUPE LOPEZ Rep #: [id number] : 1 04/14/1944 71 From: Merlin Pop MD Referring Dr: Kirsten Padilla NP Date: Ordering Dr: Sex: F C Location: PSN PSN 6 Minute Walk Test - 6 Minute Walk Test 6 Minute Walk Test: 6 Minute Walk Test PS N:6-Minute Walk Test Start: 11/17/16 11:09 Freq: Status: Active Document 11/17/16 11:00 HG (Rec: 11/17/16 11:11 HG [id number]) 6 Minute Walk Test Date Performed 11/17/16 [...] CC: Date Dictated: 11/17/161548 Date Transcribed: 11/17/161548 Investigator Fraud: Merlin Pop Signed 12-Nov-2016 Pulmonary Function Report Comp Result: Comments: See Note; NOTES: [facility] Pulmonary Services/Neurology [address] [place] [address] MR#: [id number] Acct: [id number] Name: LUPE LOPEZ Rep #: [id number] : 71 From: Merlin Pop MD Referring Dr: Kirsten Padilla CALIBRATION TESTER Status: REG CLI Ordering Dr: Date: Location: [facility] Sex: F C COMPLETE PULMONARY FUNCTION TEST INTERPRETATION Brief HPI: Patient is a 71 year old female, currently under the care of myself, who presents to [facility] for complete pulmonary function tests [...] DO Date Dictated: 11/12/161532 Date Transcribed: 11/12/161532 Investigator Fraud: EDENILSON Signed 06-Oct-2016 Chest without Contrast Result: Comments: See Note; NOTES: [facility] Imaging Services [address] [place] [address] Verdana 4d Chest without Contrast MR#: [id number] Acct: [id number] Name: LUPE LOPEZ p #: [id number] : 1945 F 71 From: Sonam Hendricks MD PCP: Enrike Jaimes DO Status: REG CLI Study: Chest without Contrast Date of Exam: 10/06/16 Exam# [id number] Ordering Dr: Enrike Jaimes DO STUDY: CT [...] Sonam Hendricks MD at 23:59 EDT Tel [phone], Service support , CC: Enrike Jaimes DO Investigator Fraud: Signed 29-Sep-2016 Dexa Bone Density Study (HP) Result: Comments: See Note; NOTES: [facility] Imaging Services [address] [place] [address] Verdana 4d Dexa Bone Density Study (HP) MR#: [id number] Acct: [id number] Name: BRAYDON LOPEZ Rep #: [id number] : 1945 F 71 From: Johnny Gilman MD PCP: Enrike Jaimes DO Status: REG CLI Study: Dexa Bone Density Study (HP) Date of Exam: 09/29/16 Exam# [id number] Ordering Dr: Szymanski DO STUDY: DUAL ENERGY [...] Johnny Gilman MD at 9:38 EDT Tel [phone], Service support , CC: Enrike Jaimes DO Investigator Fraud: Signed 19-Sep-2016 Carotid Duplex Ultrasound Result: Comments: See Note; NOTES: [facility] Cardiovascular Services [address] [place], [place] [address] [address] Carotid Duplex Ultrasound 09/18/16 1406 MR#: [id number] Acct: [id number] Name: LUPE BOOGIE #: [id number] : 1945 71 From: Brice Murphy MD Attending Dr: Enrike Jaimes DO Status: REG CLI Ordering Dr: Enrike Jaimes DO Date: 09/18/16 Location: [facility] Sex: F C Admitted: Reason For Study: [...] the left vertebral artery. Procedure Carotid Duplex 76754. The exam was diagnostic. Exam performed in [facility]. Interpretation Summary Mild (<50%) [...] Dictated: 09/18/16 1406 Date Transcribed: 09/19/16 0944 Investigator Fraud: Signed 16-Sep-2016 PT D/C Summary (1) Result: Comments: See Note; NOTES: [facility] Physical Therapy Health[address] [place], [place] [address] Fax REHABILITATION SERVICES DISCHAR SUMMARY MR#: [id number] Acct: [id number] Name: LUPE LOPEZ Rep #: [id number] [...] please feel free to call me at [phone]. Thank you for the referral of this patient. Sincerely, Shanon Ferrara <Electronically signed by Shanon Ferrara MPT> 09/16/16 1054 CC: Enrike Jaimes DO Signed 26-Aug-2016 Re-Evaluation - PT (1) Result: Comments: See Note; NOTES: [facility] [address] [place] [address]. [address] [place], [place] [address] Fax REEVALUATION / MEDICARE RECERTI MICHOACANOARANZA Solomon 4d PHYSICAL THERAPY MR#: [id number] Acct: [id number] Name: LUPE LOPEZ Rep #: [id number] : 1945 71 From: Shanon Ferrara MPT Referring DrBrooke: Enrike Jaimes DO Status: REG RCR Insu erika: [employer] PPO Enrike Jaimes, DO, It has been my pleasure to treat LUPE LOPEZ over the last 8 visits for Neck Pain. Please see the progress note below for an update on the physical [facility] plan of care! Subjective: Pt reports that [...] do not hesitate to contact me at [phone] by phone or if you have questions or concerns reg arding this new plan of care! Sincerely, Shanon Ferrara <Electronically signed by Shanon Ferrara MPT> 08/26/16 1827 CC: Enrike Jaimes DO Signed For Medic are only, by signing this I certify the plan of care. Physicians Signature Date 28-Jul-2016 Inital Evaluation (1) - PT Result: Comments: See Note; NOTES: [facility] Therapy [facility] [address] [place] [address] [address] [place] [address] Fax REHABILITATION SERVICES INITIAL EVALUATION MR#: [id number] Acct: [id number] Name: LUPE LOPEZ Rep #: [id number] [...] to be FAXED BACK to us at [phone] for Medicare purposes. Please let me know if there are questions or reza rns regarding this plan of care. Physician Signature: Date: <Electronically signed by Shanon Ferrara MPT> 07/28/16 1629 CC: Enrike Jaimes DO Signed For Medicare only, by signing this I certify the plan of care. Physicians Signature Date 08-Jul-2016 Oncology Progress Note Result: Comments: See Note; NOTES: [facility] Medical Records Department [address] [place] [address] Oncology Progress Note MR#: [id number] Acct: [id number] Name: LUPE LOPEZ Rep #: [id number] : 1945 71 From: Red Spaulding MD [...] folate. Red Spaulding MD T: NTS JOB: [id number] 07/08/16 1043 <Electronically signed by Red Spaulding MD> Date Red Spaulding MD Cosigner Signature (If Indicated): Date CC: Date Dictated: 06/20 Date Transcribed: 06/30/162251 Investigator Fraud: Signed 21-Feb-2016 Chest without Contrast Result: Comments: See Note; NOTES: [facility] Imaging Services [address] [place] [address] Verdana 4d Chest without Contrast MR#: [id number] Acct: [id number] Name: LUPE LOPEZ p #: [id number] : 1945 F 71 From: Barrett Small MD PCP: Enrike Jaimes DO Status: REG CLI Study: Chest without Contrast Date of Exam: 02/21/16 Exam# [id number] Ordering Dr: Enrike Jaimes DO STUDY : [...] 16 months. Based on Fleischner Society Harley eliralph, suggested follow-up for a 4-6 mm lung [...] MD at 2:43 EST , Service support [phone], CC: Enrike Jaimes DO Investigator Fraud: Signed 08-Dec-2015 Pulmonary Function Report Comp Result: Comments: See Note; NOTES: [facility] Pulmonary Services/Neurology [address] [place] [address] Pulmonary Function Test (Comp) MR#: [id number] Acct: [id number] Name: Oliver LOPEZ Rep #: [id number] : 1945 70 From: Merlin Pop MD Referring Dr: Kirsten Padilla CALIBRATION TESTER Status: REG CLI Ordering Dr: Kirsten Padilla CALIBRATION TESTER-C Date: 12/06/15 Location: [facility] Sex: F C DATE OF S ERVICE: [...] patient's primary care physician T: FERNIE JOB: [id number] 12/08/15 0651 <Electronically signed by Merlin Pop MD> Date __ Merlin Pop MD CC: Merlin Pop MD; Kirsten Padilla; Enrike Jaimes DO Date Dictated: 12/07/15 1235 Date Transcribed: 12/07/15 1235 Investigator Fraud: Signed 19-Nov-2015 Bilat Scrn Digital AND CAD Result: Comments: See Note; NOTES: [facility] Imaging Services [address] [facility] [place] [address] Verdana 4d Bilat Scrn Digital AND CAD MR#: [id number] Acct: [id number] Name: DYLAN LOPEZ Rep #: [id number] : 1945 F 70 From: Johnny Gilman MD PCP: Enrike Jaimes DO Status: REG CLI Study: Bilat Scrn Digital AND CAD Date of Exam: 11/19/15 Exam# [id number] Ordering Dr: Enrike Jaimes DO MAMMOGRAPHY - [...] delay biopsy of a clinically suspicious abnormality. NY1024 Electronically Signed: Johnny Gilman MD at 8:15 ED T Tel [phone], Service support [phone], CC: Enrike Jaimes DO Investigator Fraud: Signed 07-Oct-2015 Knee 4 or More Views Result: Comments: See Note; NOTES: [facility] Imaging Services [address] [place] [address] Verdana 4d Knee 4 or More Views MR#: [id number] Acct: [id number] Name: LUPE LOPEZ Rep #: [id number] : 1945 F 70 From: Johnny Gilman MD PCP: Enrike Jaimes DO Status: REG CLI Study: Knee 4 or More Views Date of Exam: 10/07/15 Exam# [id number] Ordering Dr: Yamileth Jaimes DO STUDY: X-RAY [...] Johnny Gilman MD at 13:02 EDT Tel [phone], Service support [phone], RAD/Knee 4 or More Views IMPRESSION: Minimal joint effusion. Electronically Signed: Johnny Gilman MD at 13:02 EDT Tel [phone], Service support [phone], CC: Enrike Jaimes DO Investigator Fraud: Signed 27-Aug-2015 PT D/C Summary (1) Result: Comments: See Note; NOTES: [facility] Physical Therapy [facility] [address] [place] [address]. [address] [place] [address] Fax REHABILITATION SE RVICES DISCHARGE SUMMARY MR#: [id number] Acct: [id number] Name: LUPE LOPEZ Rep #: [id number] : 1945 70 From: Domenic Ayala PT, [...] feel free to c all me at [phone]. Thank you for the referral of this patient. Sincerely, Domenic Ayala <Electronically signed by Cert. BABITA Bonilla PTT> 08/27/15 1406 CC: Enrike Jaimes DO Signed 06-Aug-2015 Inital Evaluation (1) - PT Result: Comments: See Note; NOTES: [facility] Physical Therapy [facility] [address] [place] [address]. [address] [place] [address] Fax REHABILITATION SE RVICES INITIAL EVALUATION MR#: [id number] Acct: [id number] Name: LUPE LOPEZ Rep #: [id number] : 1945 70 From: Cert. BABITA Bonilla [...] to be FAXED BACK to us at [phone] for Medicare purposes. Please let me know [...] 5 Views Result: Comments: See Note; NOTES: [facility] Imaging Services [address] [place] [address] Verdana 4d Cerv Spine 4 or 5 Views MR#: [id number] Acct: [id number] Name: LUPE MCCARTHY Rep #: [id number] : 1945 F 70 From: Vu Hankins MD PCP: Enrike Jaimes DO Status: REG CLI Study: Cerv Spine 4 or 5 Views Date of Exam: 07/30/15 Exam# [id number] Ordering Dr: Szymanski DO STUDY: X-RAY - [...] MD at 17:12 EDT , Service support [phone], RAD/Cerv Spine 4 or 5 Views IMPRESSION: Diffuse oste openia with moderate cervical spondylosis. Electronically Signed: Vu Hankins MD at 17:12 EDT , Service support [phone], CC: Enrike Jaimes DO Investigator Fraud: Signed 30-Jul-2015 Shoulder min 2 Views Result: Comments: See Note; NOTES: [facility] Imaging Services [address] [place] [place] [address] Verda 4d Shoulder min 2 Views MR#: [id number] Acct: [id number] Name: LUPE LOPEZ Rep #: [id number] : 1945 F 70 From: Vu Hankins MD PCP: Enrike Jaimes DO Status: REG CLI Study: Shoulder min 2 Views Date of Exam: 07/30/15 Exam# [id number] Ordering Dr: Enrike Jaimes DO STUDY: X-RAY [...] at 17:12 EDT Tel , Service support [phone], RAD/Shoulder min 2 Views IMPRESSION: Normal x-ray examination of the shoulder. Electronically Signed: Vu Hankins MD 07/29 at 17:12 EDT , Service support [phone], CC: Enrike Jaimes DO Investigator Fraud: Signed 02-Jul-2015 Chest PA and Lateral Result: Comments: See Note; NOTES: [facility] Imaging Services [address] [place] [address] Verdana 4d Chest PA and Lateral MR#: [id number] Acct: [id number] Name: LUPE LOPEZ Rep #: [id number] : 1945 F 70 From: Johnny Gilman MD PCP: Enrike Jaimes DO Status: REG CLI Study: Chest PA and Lateral Date of Exam: 07/02/15 Exam# [id number] Ordering Dr: Yamileth Jaimes DO STUDY: X-RAY [...] Johnny Gilman MD at 11:24 EDT Tel [phone], Service support [phone], RAD/Chest PA and Lateral IMPRESSION: The previously seen right upper lobe infiltrate rome s resolved. No acute abnormality is seen at this time. Electronically Signed: Johnny Gilman MD at 11:24 EDT Tel [phone], Service support [phone], CC: Enrike Jaimes DO Investigator Fraud: Signed 02-Jul-2015 ELECTROCARDIOGRAM, COMPLETE (ECG) (02082) Comments: ekg showed normal sinus rhythym, normal axis, no acute st/t wave changes sinus maggie Result: [MEASUREMENTS ANALYSIS] Date of Test: 07/02/2015 10:18:39; Heart Rate: 56; MN Interval: 222; QRS: 100; QT Interval: 448; Corrected QT Interval (QTc): 441; P Wave Nettleton: 90; QRS Wave Nettleton: 6; T Wave Nettleton: 18; Blood Pressure: 156/64 [ECG DIAGNOSTIC STATEMENTS] Date of Test: 07/02/2015 10:18:39; Summary: Sinus Bradycardia -First degree A-V block Tessy = 222BORDERLINE RHYTHM 02-Jul-2015 Spirometry (92726) Comments: good effort and curve normal Result: 24-Jun-2015 Venous Duplex Lower Extremity Result: Comments: See Note; NOTES: [facility] Cardiovascular Services [address] [place] [address] Venous Duplex US - Ibrahima Extrem 06/24/15 1102 MR#: [id number] Acct: [id number] Name: LUPE LOPEZ Rep #: [id number] : 1945 70 From: Brice Murphy MD [...] Date Dictated: 06/24/15 1102 Date Transcribed: 06/24/151907 Investigator Fraud: Signed 20-Jun-2015 CTA Chest W/WO Contrast Result: Comments: See Note; NOTES: [facility] Imaging Services [address] [place] [address] Glenna 4d CTA Chest W/WO Contrast MR#: [id number] Acct: [id number] Name: LUPE MCCARTHY Rep #: [id number] : 1945 F 70 From: Johnny Gilman MD PCP: Enrike Jaimes DO Status: REG ER Study: CTA Chest W/WO Contrast Date of Exam: 06/20/15 Exam# [id number] Ordering Dr: Sonam Colon MD STUDY: CTA [...] Johnny Gilman MD at 15:25 EDT Tel [phone], Service support , CC: Enrike Jaimes DO; Sonam Sheth MD Investigator Fraud: Signed 20-Jun-2015 Chest 1 View (Portable) Result: Comments: See Note; NOTES: [facility] Imaging Services [address] [address] Verdana 4d Chest 1 View (Portable) MR#: [id number] Acct: [id number] Name: LUPE MCCARTHY Rep #: [id number] : 1945 F 70 From: Johnny Gilman MD PCP: Enrike Jaimes DO Status: REG ER Study: Chest 1 View (Portable) Date of Exam: 06/20/15 Exam# [id number] Ordering Dr: Sonam Colon MD STUDY: X-RAY [...] Johnny Gilman MD at 13:07 EDT Tel [phone], Se rvice support [phone], RAD/Chest 1 View (Portable) IMPRESSION: Focal infiltration in the right upper lobe. Electronically Signed: Johnny Gilman MD at 13:07 EDT Tel [phone], Service support [phone], CC: Enrike Jaimes DO; Sonam Sheth MD Investigator Fraud: Signed 20-Jun-2015 ELECTROCARDIOGRAM, COMPLETE (ECG) (40204) Result: [MEASUREMENTS ANALYSIS] Date of Test: 06/20/2015 10:36:19; Heart Rate: 61; MN Interval: 216; QRS: 100; QT Interval: 426; Corrected QT Interval (QTc): 427; P Wave Nettleton: 62; QRS Wave Nettleton: 8; T Wave Nettleton: 28; Blood Pressure: 160/62 [ECG DIAGNOSTIC STATEMENTS] Date of Test: 06/20/2015 10:36:19; Summary: Sinus Rhythm WITHIN NORMAL LIMITS 15-Jun-2015 Echocardiogram Complete Result: Comments: See Note; NOTES: [facility] Cardiovascular Services [address] [place] [address] Echo Complete 06/12/15 1110 MR#: [id number] Acct: [id number] Name: LUPE PHILLIPS Rep #: [id number] : 1945 70 From: Mike Cota MD Attending Dr: Mike Cota MD Status: PRE CLI Ordering Dr: Mike Cota MD Date: 06/12/15 Location: [facility] Sex: F C Admit benjamin: Reason For Study: CAD/ASHD Procedure This was a 2D Doppler, Color Flow transthoracic echocardiogram. The exam was of adequate technical quality. Exam performed in department. PT did NOT take am HTN med, will take as soon as she gets home and monitor her BP this afternoon. Instructed to call [facility] if systolic BP does not [...] (pseudonormal pattern). ____ __ Ordering Physician: Mike Ctoa Referring Physician: Enrike Jaimes Performed By: Wendy López, STEVE, RVT 06/15/15 122 6 Date Mike Cota MD CC: Enrike Jaimes DO; Mike Cota MD Date Dictated: 06/12/15 1110 Date Transcribed: 06/15/15 1226 Investigator Fraud: Signed 13-Jun-2015 History and Physical Exam Result: Comments: See Note; NOTES: [facility] Medical Records Department [address] [place] [address] History and Physical 06/13/15 1251 MR#: [id number] Acct: [id number] Name: LUPE LOPEZ Rep #: [id number] : 1945 70 From: Jess Sparrow MD [...] surgery. Psychiatric History: No pertinent psych hx POLICY SPECIALIST History: No pertinent POLICY SPECIALIST history Lives: Spouse/ Significant Other Smoking [...] % (Auto) 51.1 Lymph % (Auto) 33.9 [place] % (Auto) 11.5 H Eos % (Auto) [...] View (Portable) Result: Comments: See Note; NOTES: [facility] Imaging Services [address] [place] [address] Verdana 4d Chest 1 View (Portable) MR#: [id number] Acct: [id number] Name: LUPE MCCARTHY Rep #: [id number] : 1945 F 70 From: Vu Hankins MD PCP: Enrike Jaimes DO Status: REG ER Study: Chest 1 View (Portable) Date of Exam: 06/13/15 Exam# [id number] Ordering Dr: Jessie Ogden MD STUDY: X-RAY [...] MD at 10:55 EDT , Service support [phone], RAD/Chest 1 View (Port able) IMPRESSION: Cardiomegaly with mild hyperexpansion. No acute or active cardiopulmonary disease. Electronically Signed: Vu Hankins MD at 10:55 EDT , Service sup port [phone], CC: Enrike Jaimes DO; Kane Ogden MD Investigator Fraud: Signed 13-Jun-2015 CTA Chest W/WO Contrast Result: Comments: See Note; NOTES: [facility] Imaging Services [address] [place] [address] Verdana 4d CTA Chest W/WO Contrast MR#: [id number] Acct: [id number] Name: LUPE MCCARTHY Rep #: [id number] : 1945 F 70 From: Johnny Gilman MD PCP: Enrike Jaimes DO Status: REG ER Study: CTA Chest W/WO Contrast Date of Exam: 06/13/15 Exam# [id number] Ordering Dr: Kane Lujan MD STUDY: CTA [...] Johnny Gilman MD at 12:08 EDT Tel [phone], Service support [phone], N.B. : The above information has been verbally conveyed by Johnny Gilman MD to [facility] ED RN, on 06/13/2015 12:08:48 (ET). CC: Favio Jaimes DO; Kane Ogden MD Investigator Fraud: Signed 13-Jun-2015 EKG (89683) Comments: nsr no acute chg Result: [MEASUREMENTS ANALYSIS] Date of Test: 06/13/2015 09:41:07; Heart Rate: 71; MN Interval: 194; QRS: 96; QT Interval: 420; Corrected QT Interval (QTc): 439; P Wave Nettleton: 68; QRS Wave Nettleton: 2; T Wave Nettleton: 29; Blood Pressure: 140/70 [ECG DIAGNOSTIC STATEMENTS] Date of Test: 06/13/2015 09:41:07; Summary: Sinus Rhythm WITHIN NORMAL LIMITS 23-May-2015 Carotid Duplex Ultrasound Result: Comments: See Note; NOTES: [facility] Cardiovascular Services [address] [place] [address] Carotid Duplex Ultrasound 05/23/15 0814 MR#: [id number] Acct: [id number] Name: LUPE LOPEZ Rep #: [id number] : 1945 70 From: Brice Murphy MD Attending Dr: Enrike Jaimes DO Status: REG CLI Ordering Dr: Enrike Jaimes DO Date: 05/23/15 Location: [facility] Sex: F C Adm itted: Reason For [...] the left vertebral artery. Procedure Carotid Duplex 61189. The exam was diagnostic. Exam performed in department. Interpretatio n Summary Mild (<50%) stenosis right extracranial internal carotid. Mild (<50%) stenosis left extracranial internal carotid. Flow within the vertebral arteries is antegrade bilaterall y. There has been no significant change since a prior study on 05/03/2014. Ordering Physician: Enirke Jaimes Performed By: Rufino Ashley, RVT 05/23/15 2330 Date Brice Hoyt rn, MD CC: Enrike Jaimes DO Date Dictated: 05/23/1514 Date Transcribed: 05/23/15 233 Investigator Fraud: Signed 23-May-2015 Nuclear Stress Test - Treadmil Result: Comments: See Note; NOTES: [facility] Imaging Services [address] [place] [address] Verdana 4d Nuclear Stress Test - Treadmil MR#: [id number] Acct: [id number] N ruel: LUPE LOPEZ Rep #: [id number] : 1945 70 From: Mike Cota MD [...] LVEF of 72%. Mike Cota MD T: [facility] JOB: [id number] 05/23/152009 <Electronically signed by Mike Cota MD> Date Mike Cota MD CC: Enrike Jaimes DO Date Dictated: 05/23/15 1023 Date Transcribed: 05/23/15 1023 Investigator Fraud: Signed 20-May-2015 ELECTROCARDIOGRAM, COMPLETE (ECG) (87150) Comments: ekg showed normal sinus rhythym, normal axis, no acute st/t wave changes Result: [MEASUREMENTS ANALYSIS] Date of Test: 05/20/2015 11:04:03; Heart Rate: 63; MN Interval: 210; QRS: 99; QT Interval: 408; Corrected QT Interval (QTc): 413; P Wave Nettleton: 56; QRS Wave Nettleton: 10; T Wave Nettleton: 27; Blood Pressure: 152/76 [ECG DIAGNOSTIC STATEMENTS] Date of Test: 05/20/2015 11:04:03; Summary: Sinus Rhythm WITHIN NORMAL LIMITS 11-Apr-2015 12 Lead Electrocardiogram Result: Comments: See Note; NOTES: [facility] Cardiovascular Services [address] [place] [address] 12 Lead EKG 03/28/15 1548 MR#: [id number] Acct: [id number] Name: LUPE BOOGIE Rep #: [id number] : 1945 70 From: Mike Cota MD [...] Normal ECG Confirmed by MIKE COTA MD ([id number]), publication editor TERRI DIOP ([id number]) on 04/11/2015 2:14:19 PM Referred By: CHRISTOPHER Confirmed By:MIKE COTA MD 04/11/15 141 4 Date Mike Cota MD CC: Enrike Jaimes DO Date Dictated: 03/28/15 1548 Date Transcribed: 03/28/151547 Investigator Fraud: Signed 25-Dec-2014 Pulmonary Function Report Comp Result: Comments: See Note; NOTES: [facility] Pulmonary Services/Neurology [address] [place] [address] Pulmonary Function Test (Comp) MR#: [id number] Acct: [id number] Name: LUPE PHILLIPS Rep #: [id number] : 1945 69 From: Merlin Pop MD Referring Dr: Merlin Pop MD Status: REG CLI Ordering Dr: Merlin Pop MD Date: 11/27/14 Location: [facility] Sex: F C DATE OF [...] volumes. MERLIN POP MD T: NTS JOB: [id number] . Date: 11/28/14 Tech.: Temp: PBar: Height(in.): Weight(lbs.): Diagnosis: Medication: : Dyspnea Rest: Dyspnea Exercise: Cough: Productive (cc): Persistent: Smoker: How Long (pk/yrs): Stopped (yrs): Cigarettes: Cigars: 1 1438 <Electronically signed by Merlin Pop MD> Date Merlin Pop MD CC: Merlin Pop MD; Enrike Jaimes DO Date Dictated: 11/03 Date Transcribed: 11/27/141628 Investigator Fraud: Signed 23-Oct-2014 PT Discharge Summary Result: Comments: See Note; NOTES: [facility] Physical Therapy [facility] [address] [place] [address] Fax REHABILITATION SERVICES DISCHARGE SUMMARY MR#: [id number] Acct: [id number] Name: LUPE LOPEZ Rep #: [id number] : 1945 69 From: Barbie Mcguire Referring [...] Sneakers. Barbie Mcguire DPT T: FERNIE JOB: [id number] <Electronically signed by Monika Mcguire > 10/23/14 1021 CC: Signed 23-Oct-2014 Chest WITH Contrast Result: Comments: See Note; NOTES: [facility] Imaging Services [address] [facility] [place] [address] CAT Scan Report MR#: [id number] Acct: [id number] Name: LUPE LOPEZ Rep #: [id number] : 1945 F 69 From: Johnny Gilman MD PCP: Enrike Jaimes DO Status: REG CLI Study: Chest WITH Contrast Date of Exam: 10/23/14 Exam# [id number] Ordering Dr: Merlin Pop MD STUDY: CT [...] Johnny Gilman MD at 14:28 EDT Tel [phone], Service support [phone], Fax CC: Merlin Pop MD; Enrike Jaimes DO Investigator Fraud: Signed 02-Oct-2014 Bilat Scrn Digital AND CAD Result: Comments: See Note; NOTES: [facility] Imaging Services [address] [place] [address] Breast Imaging Report MR#: [id number] Acct: [id number] Name: LUPE LOPEZ Rep #: [id number] : 1945 F 69 From: Johnny Gilman MD PCP: Enrike Jaimes DO Status: REG CLI Study: Bilat Scrn Digital AND CAD Date of Exam: 10/02/14 Exam# [id number] Ordering Dr: Enrike Jaimes DO MAMMOGRAPHY - [...] [facility]. Approximately 10% of breast cancers are not detected by mammography. A normal mammogram should not delay biopsy of a clinically suspicious abnormality. Electronically Signed: Isma Gilman MD at 12:54 EDT Tel [phone], Service support [phone], CC: Enrike Jaimes DO Investigator Fraud: Signed 27-Sep-2014 Inital Evaluation - PT Result: Comments: See Note; NOTES: [facility] Physical Therapy [facility] [address] [place] [address]. [address] [place] [address] Fax REHABILITATION SERVICES INITIAL EVALUATION MR#: [id number] Acct: [id number] Name: LUPE LOPEZ Rep #: [id number] : 1945 69 From: Barbie Mcguire Referring DrBrooke: Enrike Jaimes DO Status: REG R Insurance: [employer] Eval Date: [...] no stent that she does see a transitions rn care coordinator. MEDICATIONS: The patient has a list if [...] fair. The patient will benefit from [facility] physical therapy to solve the following [...] pain. Barbie Mcguire DPT T: [facility] JOB: [id number] <Electronically signed by Barbie Mcguire > 09/27/14 0823 CC: Signed For Medicare only, by signing this I certify the plan of care. Physicians Signature Date 14-Jun-2014 Knee 4 or More Views Result: Comments: See Note; NOTES: [facility] Imaging Services [address] [place] [address] Radiology Report MR#: [id number] Acct: [id number] Name: LUPE LOPEZ Rep #: [id number] : 1945 F 69 From: Frank Sewell MD PCP: Enrike Jaimes DO Status: REG CLI Study: Knee 4 or More Views Date of Exam: 06/14/14 Exam# [id number] Ordering Dr: Enrike Jaimes DO STUDY: X-R [...] at 7:48 EDT Tel , Service support [phone], CC: Enrike Jaimes DO Investigator Fraud: Signed 14-Jun-2014 Knee 4 or More Views Result: Comments: See Note; NOTES: [facility] Imaging Services [address] [place] [address] Radiology Report MR#: [id number] Acct: [id number] Name: LUPE LOPEZ Rep #: [id number] : 1945 F 69 From: Frank Sewell MD PCP: Enrike Jaimes DO Status: REG CLI Study: Knee 4 or More Views Date of Exam: 06/14/14 Exam# [id number] Ordering Dr: Enrike Jaimes DO STUDY: X-R [...] at 7:50 EDT Tel , Service support [phone], RAD/Knee 4 or More Views IMPRESSION: Mild relative narrowing of the medial co mpartment joint space left knee. Generalized osteopenia. Electronically Signed: Ming Sewell MD at 7:50 EDT Tel , Service support [phone], CC: Enrike Jaimes DO Investigator Fraud: Signed 16-May-2014 Carotid Duplex Ultrasound Result: Comments: See Note; NOTES: [facility] Cardiovascular Services [address] [address] 05/03/14 1014 MR#: [id number] Acct: [id number] Name: LUPE LOPEZ Rep #: [id number] [...] left ve rtebral artery. Procedure Carotid Duplex 11530. The exam was diagnostic. Exam performed in department. Interpretation Summary Mild (<50%) stenosis right extracranial internal carotid. Mild (<50%) stenosis left extracranial internal carotid. Flow within the vertebral arteries is antegrade bilaterally. ___ Ordering Physician: Enrike Jaimes D.O. Performed By: Rufino Ashley, RVT 05/03/14 1107 Date ____ Brice Murphy MD CC: Enrike Jaimes DO Date Dictated: 05/03/14 1014 Date Transcribed: 05/03/14 1107 Investigator Fraud: Signed 23-Apr-2014 Spirometry (80469) Comments: good effort and curve normal Result: 17-Apr-2014 Brain/Head W/WO Contrast Result: Comments: See Note; NOTES: [facility] Imaging Services [address] [facility] [place] [address] CAT Scan Report MR#: [id number] Acct: [id number] Name: LUPE LOPEZ Rep #: [id number] : 1945 F 69 From: Johnny Gilman MD PCP: Enrike Jaimes DO Status: REG CLI Study: Brain/Head W/WO Contrast Date of Exam: 04/17/14 Exam# [id number] Ordering Dr: Enrike Jaimes DO STUDY: CT [...] Johnny Gilman MD at 15:01 EST Tel [phone], Service support [phone], CC: Enrike Jaimes DO Investigator Fraud: Signed 17-Apr-2014 CTA Chest W/WO Contrast Result: Comments: See Note; NOTES: [facility] Imaging Services [address] [place] [address] CAT Scan Report MR#: [id number] Acct: [id number] Name: LUPE LOPEZ Rep #: [id number] : 1945 F 69 From: Johnny Gilman MD PCP: Enrike Jaimes DO Status: REG CLI Study: CTA Chest W/WO Contrast Date of Exam: 04/17/14 Exam# [id number] Ordering Dr: Enrike Jaimes DO STUDY: C [...] Johnny Gilman MD at 14:38 EST Tel [phone], Service support [phone], CC: Enrike Jaimes DO Investigator Fraud: Signed Immunization Name Dates Details Influenza, preserv. 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, [address] Absolute Lymph 1.23 {X10_3/ul} (Normal) Range: 0.83-4.51 [...] 4.2-5.4 WBC 4.8 K/mm3 (Normal) Range: 4.4-11.0 49-Eux-205072:47 Comprehensive Metabolic Profil Comments: [facility] Usyoyemugb8919 [address] [place], [place], [address] GAP 9 (Normal) Range: 5-15 CO2 25.0 [...] Comments: Please note revised GLUCOSE reference range hbjbanmoj82/02/2018. 98-Pnk-284879:47 Hemoglobin A1c Comments: [facility] Yuooeqjqss9039 [facility] [place], [place], [address] HGB A1C 5.5 % (Normal) Range: 4.2-6.3 94-Aqw-309597:47 Lipid Profile Comments: [facility] Jhrstsrwsn8298 [facility] [place], [place], [address] VLDL 18 mg/dL (Normal) Range: 5-40 LDL [...] 200-240 mg/dL Borderline >240 mg/dL High Risk 97-Cbd-887463:47 Thyroid Stim Hormone (TSH) Comments: [facility] [address] [place], [address] TSH 4.65 {uIU/mL} (Abnormal) Range: 0.358-3.74 93-Vwj-165902:32 Thyroid Stim Hormone (TSH) Comments: [facility] Kucvrdzpqs9[address] [place], [address] TSH 2.85 {uIU/mL} (Normal) Range: 0.358-3.74 01-Uly-71885:27 Microscopic Examination Comments: PATIENT WAS FASTINGPERFORMED BY: [facility]Vfeqkt4764 [facility] [id number] Bacteria Few (Normal) Mucus Threads Present (Normal) Cast Type Hyaline casts (Normal) Casts Present {/lpf} (Abnormal) Epithelial Cells (non renal) 0-10 {/hpf} (Normal) Range: 0 - 10 RBC 0-2 {/hpf} (Normal) Range: 0 - 2 WBC 0-5 {/hpf} (Normal) Range: 0 - 5 20-Jul-20178:49 CBC W/Diff, Automated Comments: Reason for Laboratory Test [facility] Qkojleujrx4494 [place], [address] Absolute Lymph 1.48 {X10_3/ul} (Normal) [...] Metabolic Profil Comments: Reason for Laboratory Test [facility] Nopffxxtkk1835 [address]. [place], [place], [address] GAP 5 (Normal) Range: 5-15 CO2 31.0 [...] Comments: Please note revised GLUCOSE reference range nvqbivojc87/02/2018. :49 Ferritin Comments: Reason for Laboratory Test [facility] Xdjensmflt97[address] [place], [address] FERRITIN 29 ng/mL (Normal) Range: 8-252 :49 Iron Comments: Reason for Laboratory Test [facility] Iqxopgjdwe55[address]. [place], [address] IRON 55 ug/dL (Normal) Range: 50-170 :32 Lipid Profile Comments: [facility] Pqbrqppgjg[address]. [place], [address] VLDL 18 mg/dL (Normal) Range: 5-40 LDL [...] mg/dL High Risk :32 Liver Profile Comments: [facility] Kpvmrfrciu7965 [address]. [place], [place], [address] D BILI 0.09 mg/dL (Normal) Range: 0.00-0.30 T BILI 0.50 mg/dL (Normal) Range: 0.20-1.00 ALT 14 U/L (Normal) Range: 13-56 ALK P 55 U/L (Normal) Range: 45-117 AST 19 U/L (Normal) Range: 15-37 GLOB 3.0 g/dL (Normal) Range: 2.2-4.2 ALB 3.7 g/dL (Normal) Range: 3.2-5.0 T PROT 6.7 g/dL (Normal) Range: 6.4-8.2 :32 Thyroid Stim Hormone (TSH) Comments: [facility] [address]hknklclm3960 [place], [address] TSH 5.71 {uIU/mL} (Abnormal) Range: 0.358-3.74 :27 SED RATE ERYTHROCYTE (66685) Comments: PATIENT WAS FASTINGPERFORMED BY: [facility] Acczel8241 [facility] [id number] Sedimentation Rate-Westergren 8 mm/h (Normal) Range: 0-40 :27 C-REACTIVE PROTEIN (21549) Comments: PATIENT WAS FASTINGPERFORMED BY: SmartFleet6370 [facility] [id number] C-Reactive Protein, Quant 0.6 mg/L (Normal) Range: 0.0-4.9 :27 FOLIC ACID SERUM (92880) Comments: PATIENT WAS FASTINGPERFORMED BY: [employer] Forkyf9214 [facility] [id number] Folate (Folic Acid), Serum >20.0 ng/mL (Normal) Comments: A serum folate concentration of less than 3.1 ng/mL isconsidered to represent clinical deficiency. :27 VITAMIN B-12 (CYANOCOBALAMIN) Comments: PATIENT WAS FASTINGPERFORMED BY: [employer] Njnnho4242 [facility] [id number] (01184) Vitamin B12 681 pg/mL (Normal) Range: 232-1245 :27 TSH (THYROID STIMULATING Comments: PATIENT WAS FASTINGPERFORMED BY: [facility] HospitalBbofmi3674 [facility] [id number] HORMONE) (81935) TSH 6.650 {uIU/mL} (Abnormal) Range: 0.450-4.500 :27 LIPID PANEL (65744) Comments: PATIENT WAS FASTINGPERFORMED BY: [facility]Zngtkj0664 [facility] [id number] LDL/HDL Ratio 1.4 {ratio} (Normal) Range: 0.0-3.2 [...] mg/dL (Normal) Range: 100-199 :27 HGB A1C (38075) Comments: PATIENT WAS FASTINGPERFORMED BY: [facility]Isgqzr7737 [facility] [id number] Hemoglobin A1c 5.6 % (Normal) Range: 4.8-5.6 Comments: . Pre-diabetes: 5.7 - 6.4 Diabetes: >6.4 Glycemic control for adults with diabetes: <7.0 :27 serum free light chains Comments: PATIENT WAS FASTINGPERFORMED BY: [facility]Vefghm6527 [facility] [id number] (25041) Bodfish/Lambda Ratio,S 1.18 (Normal) Range: 0.26-1.65 Free Lambda Lt Chains,S 19.1 mg/L (Normal) Range: 5.7-26.3 Free Bodfish Lt Chains,S 22.5 mg/L (Abnormal) Range: 3.3-19.4 94-Ehl-93392:27 urine immunofixation (93070) Comments: PATIENT WAS FASTINGPERFORMED BY: [facility]Ojxibk9464 [facility] [id number] THEE Interpretation:U UPEIP (Normal) Comments: No monoclonality detected. :27 serum immunofixation (28618) Comments: PATIENT WAS FASTINGPERFORMED BY: [facility]Oykqzj2411 [facility] [id number] Immunoglobulin M, Qn, Serum 68 mg/dL (Normal) Range: 26-217 Immunoglobulin A, Qn, Serum 111 mg/dL (Normal) Range: 64-422 Immunoglobulin G, Qn, Serum 669 mg/dL (Abnormal) Range: 700-1600 Immunofixation Result, Serum UPEIP (Normal) Comments: No monoclonality detected. :27 URINALYSIS, W/ MICRO (51730) Comments: PATIENT WAS FASTINGPERFORMED BY: [facility]Fgxsnz2688 [facility] [id number] Microscopic Examination See below: (Normal) Comments: Microscopic was indicated and was performed. Microscopic Examination MICRON (Normal) Comments: Microscopic follows if indicated. Nitrite, Urine Negative (Normal) Urobilinogen,Semi-Qn 0.2 mg/dL (Normal) Range: 0.2-1.0 Bilirubin Negative (Normal) Occult Blood Negative (Normal) Ketones Negative (Normal) Glucose Negative (Normal) Protein Negative (Normal) WBC Esterase Negative (Normal) Appearance Clear (Normal) Urine-Color Yellow (Normal) pH 6.0 (Normal) Range: 5.0-7.5 Specific [place] 1.019 (Normal) Range: 1.005-1.030 :27 METABOLIC PANEL, COMPREHENSIVE Comments: PATIENT WAS FASTINGPERFORMED BY: [employer] Kfjlqg4312 [facility] [id number] (89990) ALT (SGPT) 12 [iU]/L (Normal) Range: 0-32 [...] 8-27 Glucose 91 mg/dL (Normal) Range: 65-99 9-Eaf-032382:14 CBC W/Diff, Automated Comments: Reason for Laboratory Test .[facility] Uicatpjhyc0568 [place], [address] Absolute Lymph 0.91 {X10_3/ul} (Normal) Range: 0.83-4.51 [...] 4.2-5.4 WBC 5.1 K/mm3 (Normal) Range: 4.4-11.0 5-Ymy-111962:14 Comprehensive Metabolic Profil Comments: Reason for Laboratory Test .Is Patient Taking Vitamins or Folic Acid Supplements? [facility] Coyxovemet3997 [address]. [place], [place], [address] GAP 7 (Normal) Range: 5-15 CO2 30.0 [...] 7-18 GLU 100 mg/dL (Normal) Range: 70-110 0-Awp-019718:14 Ferritin Comments: Reason for Laboratory Test .Is Patient Taking Vitamins or Folic Acid Supplements? [facility] Ytbimatsig6009 [address]. [place], [id number] FERRITIN 42 ng/mL (Normal) Range: 8-252 8-Pwr-816601:14 Folates, (Folic Acid) Comments: Reason for Laboratory Test .Is Patient Taking Vitamins or Folic Acid Supplements? [facility] Gbiihafeph2435 [address]. [place], [address] FOLATES 82.80 ng/mL (Abnormal) Range: 3.1-55.4 Comments: Please note revised Folates reference range wiwashqne76/14/2017. 8-Rnd-854588:14 Iron+Iron Binding Capacity Comments: Reason for Laboratory Test .Is Patient Taking Vitamins or Folic Acid Supplements? [facility] Qwwsmylyfz2145 [address]. [place], [address] IRON SATURATION 10.7 % (Abnormal) Range: 15.0-55.0 IRON 36 ug/dL (Abnormal) Range: 50-170 TIBC 335 ug/dL (Normal) Range: 250-450 9-Lth-368633:14 Vitamin B12 > 2000 pg/mL (Abnormal) Comments: Reason for Laboratory Test .[facility] Qsztncghop2956 [address]. [place], [id number] Range: 211-911 01-Dpk-444846:06 Stool Occult Blood iFOB Comments: [address] [place], [address] STOB See Note (Normal) Comments: Reason for Laboratory Test . STOB iFOBOccult Blood Negative 17-Xuu-67832:18 CBC W/Diff, Automated Comments: [facility] Cuffcdwtgs7893 [address]. [place], [address] Absolute Lymph 1.31 {X10_3/ul} (Normal) Range: 0.83-4.51 [...] 4.2-5.4 WBC 3.4 K/mm3 (Abnormal) Range: 4.4-11.0 72-Tsw-17937:18 Comprehensive Metabolic Profil Comments: Is Patient Taking Vitamins or Folic Acid Supplements? [facility] Lgpkalxjji3882 [facility] Jef. [place], [place], [address] GAP 7 (Normal) Range: 5-15 CO2 28.0 [...] Vitamins or Folic Acid Supplements? [facility] [address]cf[address] [place], [place], [address] FERRITIN 16 ng/mL (Normal) Range: 8-252 :18 Folates, (Folic Acid) Comments: Is Patient Taking Vitamins or Folic Acid Supplements? [facility] [address]xcap[address] [place], [address] FOLATES 67.80 ng/mL (Abnormal) Range: 3.1-17.5 :18 Iron+Iron Binding Capacity Comments: Is Patient Taking Vitamins or Folic Acid Supplements? [facility] [address]xc[address] [place], [address] IRON SATURATION 11.2 % (Abnormal) Range: 15.0-55.0 IRON 41 ug/dL (Abnormal) Range: 50-170 TIBC 367 ug/dL (Normal) Range: 250-450 :18 Vitamin B12 1297 pg/mL (Abnormal) Comments: [facility] [address] [place], [address] Range: 211-911 00-Vbd-840922:09 Urinalysis, Office (56040) UA - LEUKOCYTE ESTERASE Negative (Normal) UA - NITRITE Negative (Normal) URINE UROBILINGN DIPAK TIMED 2 mg/dL (Normal) UA - PROTEIN Negative mg/dL (Normal) UA - PH 6.0 (Normal) UA - BLOOD Hemolyzed Trace (Normal) UA - SPECIFIC GRAVITY 1.015 (Normal) UA - KETONES Negative mg/dL (Normal) UA - BILIRUBIN Negative (Normal) UA - GLUCOSE Negative (Normal) :09 Blood Glucose , Office (94364) Blood Glucose , Office 91 (Normal) :09 HgA1C , Office (45168) HgA1C , Office 5.3 % (Normal) Range: 4.6 - 7.1 :01 CBC W/Diff, Automated Comments: [facility] Lhmcdyfhfh0361 [address]. [place], [place], [address] Absolute Lymph 0.96 {X10_3/ul} (Normal) Range: 0.83-4.51 [...] Range: 4.4-11.0 :01 Comprehensive Metabolic Profil Comments: [facility] Xcaqalugbu5215 [address]. [place], [place], [address] GAP 12 (Normal) Range: 5-15 CO2 24.0 [...] 7-18 GLU 90 mg/dL (Normal) Range: 70-110 83-Eln-17269:01 Hemoglobin A1c Comments: [facility] Iqbqzddbxn8374 [place], [address] HGB A1C 5.3 % (Normal) Range: 4.2-6.3 : THEE + Protein Elect, Serum Comments: Is Patient Fasting? [facility] (refer to report for specific site)refer to report for address and phone number NOTE: Comment (Normal) Comments: Protein electrophoresis scan will follow via computer,mail, or policyholder information clerk delivery. THEE RESULT,S Comment (Normal) Comments: No monoclonality detected. A/G RATIO 1.2 (Normal) Range: 0.7-1.7 GLOBULIN, TOTAL 3.1 g/dL (Normal) Range: 2.2-3.9 M-SPIKE g/dL (Normal) Comments: Not Observed GAMMA GLOBULIN 0.7 g/dL (Normal) Range: 0.4-1.8 BETA GLOBULIN 0.9 g/dL (Normal) Range: 0.7-1.3 EHHWU-3-BRZX 1.0 g/dL (Normal) Range: 0.4-1.0 JEQDM-4-BCUH 0.5 g/dL (Abnormal) Range: 0.0-0.4 ALBUMIN 3.6 [...] (Normal) Comments: No monoclonality detected.Performed at: - [facility] [address] [id number] Director: Samm Galvan PhD, Phone: [phone] Lipid Profile Comments: [facility] Jzpfcnsozf2036 [place], [address] VLDL 19 mg/dL (Normal) Range: [...] Risk :01 Thyroid Stim Hormone (TSH) Comments: [facility] Mfirlkdawp0838 [address] [place], [place], [address] TSH 4.87 {uIU/mL} (Abnormal) Range: 0.358-3.74 :01 Vitamin D,25 Hydroxy Comments: [facility] Cbxvjazjmv6647 [address]. [place], [place], [address] Vitamin D 25-OH 27.3 ng/mL (Normal) Comments: Vitamin D 25(OH) Status Range Deficiency <20 ng/mL (50nmol/L) Insuffciency 20 - 30 ng/mL (50 - 75 nmol/L) Sufficiency 30 - 100 ng/mL (75 - 250 nmol/L) Toxicity >100 ng/mL (>250 nmol/L) :54 CBC W/Diff, Automated Comments: [facility] Mfeorevunk7922 [address]. [place], [place], [address] Absolute Lymph 1.70 {X10_3/ul} (Normal) Range: 0.83-4.51 [...] 4.2-5.4 WBC 4.5 K/mm3 (Normal) Range: 4.4-11.0 62-Bnj-58599:54 Comprehensive Metabolic Profil Comments: 'TROP' Serial specimen #1, #2, #3, or #4: 1[facility] Sccptoycjt6466 [place], [place], [address] GAP 8 (Normal) Range: 5-15 CO2 25.0 [...] (Normal) Range: 70-110 :54 Hemoglobin A1c Comments: [facility] [address] [place], [place], [address] HGB A1C 5.9 % (Normal) Range: 4.2-6.3 :54 Lipid Profile Comments: 'TROP' Serial specimen #1, #2, #3, or #4: [address] [place] [address] [place], [place], [address] VLDL 31 mg/dL (Normal) Range: 5-40 LDL [...] Serial specimen #1, #2, #3, or #4: [address] [place] [address] [place], [address] TSH 4.73 {uIU/mL} (Abnormal) Range: 0.358-3.74 05-Kcx-85087:54 Troponin-I Comments: 'TROP' Serial specimen #1, #2, #3, or #4: [address] [place] [address] Pmvhduwztm5370 [place], [address] TROPONIN-I < 0.02 ng/mL (Normal) Comments: TROPONIN-I EXPECTED VALUES <0.05 NEGATIVE 0.06 - 0.59 AT RISK OF DC > OR = 0.60 SUGGEST DC 00-Ezn-472827:51 CBC W/Diff, Auto - EPLAB Comments: Order Date: 01/01/16Order Info: [id number] - *CBC w/Diff - oncology ONLYComments: DRAW AND HOLD SERUM TUBEOrder Date: 01/01/16Order Info: [id number] - *CBC w/Diff - oncology ONLYComments: DRAW AND HOLD SERUM Only TUBEAt [facility] Medical Oncologypatients receive CBC w/auto Differential ONLY. Physicianwill place an order for a manual differential or Pathologistreview at his discretion. [facility]. [address] [address] [address] PEANUT ROASTER: JOSE KOHLI DO PH:[phone] Date: 01/01/16Order Info: [id number] - *MISC - Miscellaneous Lab Test #1Comments: Test(s) Ordered by Physician:[facility] Vriruoepzl28[address] [place], [address] Absolute Lymph 1.39 {X10_3/uL} (Normal) Range: 0.83-4.51 [...] 4.2-5.4 WBC 4.7 K/mm3 (Normal) Range: 4.4-11.0 54-Aqz-854971:51 Comprehensive Metabolic Comments: Order Date: 01/01/16Order Info: [id number] - *CMP Complete Metabolic PanelOrder Info: 3084-1 - *Uric Acid BloodOrder Info: 2500-7 - *TIBCOrder Info: 2498-4 - *IronOrder Info: 2276-4 - *FerritinComments: Ashlyn Profil son:Order Info: 2532-0 - *LDH -LDH (Lactate Dehydrogenase)Order Date: 01/01/16Order Info: [id number] - *MISC - Miscellaneous Lab Test #1Comments: Test(s) Ordered by Physician:FOLATESSerial Specimen #1, # 2 or #3? 1Is Patient Taking Vitamins or Folic Acid Supplements? [facility] Pxogjbrzzj6210 [place], [place], [address] GAP 2 (Abnormal) Range: 5-15 CO2 29.0 [...] 7-18 GLU 89 mg/dL (Normal) Range: 70-110 43-Goz-412069:51 Ferritin Comments: Order Date: 01/01/16Order Info: 0786-1 - *CMP Complete Metabolic PanelOrder Info: 3084-1 - *Uric Acid BloodOrder Info: 2499-7 - *TIBCOrder Info: 2498-4 - *IronOrder Info: 6-4 - *FerritinComments: Ashlyn son:Order Info: 2532-0 - *LDH -LDH (Lactate Dehydrogenase)Order Date: 01/01/16Order Info: [id number] - *MISC - Miscellaneous Lab Test #1Comments: Test(s) Ordered by Physician:FOLATESSerial Specimen #1, # 2 or #3? 1Is Patient Taking Vitamins or Folic Acid Supplements? [facility] Qbjrvgtmbi9710 [address] [place], [place], [address] FERRITIN 14 ng/mL (Normal) Range: 8-252 84-Zzh-282890:51 Folates, (Folic Acid) Comments: Order Date: 01/01/16Order [...] Vitamins or Folic Acid Supplements? [facility] Qenqdbbzeb63[address] [place], [address] FOLATES 72.40 ng/mL (Abnormal) Range: 3.1-17.5 33-Zsx-236909:51 Iron Comments: Order Date: 01/01/16Order Info: 0786-1 [...] Vitamins or Folic Acid Supplements? [facility] Avpyhlfsdj4170 [address]. [place], [address] IRON 40 ug/dL (Abnormal) Range: 50-170 29-Hxm-623999:51 Iron Binding Capacity,Total Comments: Order Date: 01/01/16Order [...] Vitamins or Folic Acid Supplements? [facility] [address] [place], [address] TIBC 354 ug/dL (Normal) Range: 250-450 :51 [...] Vitamins or Folic Acid Supplements? [facility] [address] [place], [address] Range: 84-246 97-Imb-070245:51 Uric Acid Comments: Order Date: 01/01/16Order Info: [...] Vitamins or Folic Acid Supplements? [facility] Gikpzwzsrl4[address]. [place], [address] URIC 3.9 mg/dL (Normal) Range: 2.6-6.0 Comments: The drugs N-Acetylcysteine and Metamizole may falsely deressthis assay. 13-Clg-696404:51 Vitamin B12 809 pg/mL (Normal) Comments: Order Date: 01/01/16Order Info: [id number] - *B-12Order Date: 01/01/16Order Info: 0453-1 - *MISC - Miscellaneous Lab Test [facility] Fueboshyvv7[address] [place], [address] Range: 211-911 83-Tnk-696035:41 D-Dimer Quantitative (DVT/PE) Comments: Order Date: 06/15/16Order Info: [id number] - *DDIMQ - Fibrin Degrd Ultrsens Qual/SemiquanOrder Date: 06/15/16Order Info: [id number] - *DDIMQ - Fibrin Degrd Ultrsens Qual/SemiquanWBrecksville [facility] Ipyecqgehz9[address] [place], [address] D-DIMER QUANT 0.28 {FEU/ug/m} (Normal) Range: 0.27-0.49 Comments: NORMAL D-Dimer level (<0.50) indicates no DVT or PE. 4-Pkh-356255:15 Thyroxine (T4) Free, Direct, S Comments: PATIENT NOT FASTINGPERFORMED BY: [facility] Hcadll4073 [facility] [id number] T4,Free(Direct) 1.22 ng/dL Range: 0.82-1.77 (Normal) Triiodothyronine,Free,Seru 2.2 pg/mL (Normal) Comments: PATIENT NOT FASTINGPERFORMED BY: [facility] Raypws8936 [facility] [id number] 4:15 m Range: 2.0-4.4 Written Authorization WAR (Normal) Comments: PATIENT NOT FASTINGPERFORMED BY: [facility] Slsjjx8734 [facility] [id number] 4:15 Comments: Written Authorization Received.Authorization received from MAO BENITEZ [id number] by Jyothi Boland 4-Drq-946686:15 SPEP (34400) Comments: PATIENT NOT FASTINGPERFORMED BY: [facility] Hijamc6531 [facility] [id number] Please note: SPRCS (Normal) Comments: Protein electrophoresis scan will follow via computer, mail, orcourier delivery. A/G Ratio 1.3 (Normal) Range: 0.7-1.7 Globulin, Total 2.8 g/dL (Normal) Range: 2.2-3.9 M-Abhinav Not Observed g/dL (Normal) Gamma Globulin 0.8 g/dL (Normal) Range: 0.4-1.8 Beta Globulin 0.8 g/dL (Normal) Range: 0.7-1.3 Coqbq-1-Mqkabucb 0.9 g/dL (Normal) Range: 0.4-1.0 Zwjwr-5-Yrgdfvjh 0.2 g/dL (Normal) Range: 0.0-0.4 Albumin 3.6 g/dL (Normal) Range: 2.9-4.4 Protein, Total, Serum 6.4 g/dL (Normal) Range: 6.0-8.5 1-Sfz-506698:15 UPEP (78502) Comments: PATIENT NOT FASTINGPERFORMED BY: [employer]70 [facility] [id number] Please note: SPRCS (Normal) Comments: Protein electrophoresis scan will follow via computer, mail, orcourier delivery. M-Abhinav, % Not Observed % (Normal) Gamma Globulin, U 39.7 % (Normal) Beta Globulin, U 30.6 % (Normal) Xtzik-9-Saqfbvcy, U 6.8 % (Normal) Mqgcq-1-Qfrwbsbd, U 2.0 % (Normal) Albumin, U 21.0 % (Normal) Protein,Total,Urine 4.5 mg/dL (Normal) 8-Baf-842531:15 TSH (26518) Comments: PATIENT NOT FASTINGPERFORMED BY: [employer] Kyquvs3769 [facility] [id number] TSH 7.400 {uIU/mL} (Abnormal) Range: 0.450-4.500 0-Pax-295933:15 CBC WITH MANUAL DIFF (25384) Comments: PATIENT NOT FASTINGPERFORMED BY: [employer] Wcifdp4420 [facility] [id number] Immature Grans (Abs) 0.0 {x10E3/uL} (Normal) Range: [...] 3.77-5.28 WBC 4.5 {x10E3/uL} (Normal) Range: 3.4-10.8 2-Wbr-394749:15 RETICULOCYTE COUNT (84353) Comments: PATIENT NOT FASTINGPERFORMED BY: [facility]Bamqht3052 [facility] [id number] Reticulocyte Count 1.0 % (Normal) Range: 0.6-2.6 9-Zhs-689349:15 LDH (LD) (LACTATE DEHYDROGENASE) Comments: PATIENT NOT FASTINGPERFORMED BY: [facility]6370 [facility] [id number] (73246) LDH 185 [iU]/L (Normal) Range: 119-226 3-Bgm-832767:15 Iron Binding Capacity (TIBC) Comments: PATIENT NOT FASTINGPERFORMED BY: [facility]6370 [facility] [id number] (03856) Iron Saturation 16 % (Normal) Range: 15-55 Iron, Serum 55 ug/dL (Normal) Range: 27-139 UIBC 281 ug/dL (Normal) Range: 118-369 Iron Bind.Cap.(TIBC) 336 ug/dL (Normal) Range: 250-450 8-Ytb-774669:15 Vitamin B-12 (cyanocobalamin) Comments: PATIENT NOT FASTINGPERFORMED BY: [facility]6370 [facility] [id number] (03567) Vitamin B12 979 pg/mL (Abnormal) Range: 211-946 8-Dkj-015684:15 Folic Acid Serum (71874) Comments: PATIENT NOT FASTINGPERFORMED BY: [facility]6370 [facility] [id number] Folate (Folic Acid), Serum >20.0 ng/mL (Normal) Comments: A serum folate concentration of less than 3.1 ng/mL isconsidered to represent clinical deficiency. 5-Qoy-532884:15 Ferritin (44477) Comments: PATIENT NOT FASTINGPERFORMED BY: [facility]6370 [facility] [id number] Ferritin, Serum 30 ng/mL (Normal) Range: 15-150 67-Hbk-035049:05 CBC W/Diff, Automated Comments: [facility] J[address]ytbzdqlg[address] [place], [place], [address] Absolute Lymph 1.49 {X10_3/ul} (Normal) Range: 0.83-4.51 [...] 4.2-5.4 WBC 4.6 K/mm3 (Normal) Range: 4.4-11.0 75-Jrm-907677:05 Comprehensive Metabolic Profil Comments: [facility] [id number] [place], [address] GAP 8 (Normal) Range: 5-15 CO2 28.0 [...] 7-18 GLU 86 mg/dL (Normal) Range: 70-110 38-Qlw-449473:05 Hemoglobin A1c Comments: [facility] [id number] [place], [place], [id number] HGB A1C 5.2 % (Normal) Range: 4.2-6.3 32-Csb-987783:05 Lipid Profile Comments: [facility] [id number] [place], [place], [id number] VLDL 22 mg/dL (Normal) Range: 5-40 LDL [...] 200-240 mg/dL Borderline >240 mg/dL High Risk 56-Dqe-298872:05 Microalb:Creat Ratio,Random UR Comments: [facility] [id number] [place], [place], [id number] MALB:CREAT 5.0 {mg/g_CRE} (Normal) MICROALBUMIN,UR 7.2 mg/L (Normal) UR CREAT 144.00 mg/dL (Normal) 76-Ubp-409074:05 Vitamin D,25 Hydroxy Comments: [facility] [id number] [place], [address] Vitamin D 25-OH 40.3 ng/mL (Normal) Comments: Vitamin D 25(OH) Status Range Deficiency <20 ng/mL (50nmol/L) Insuffciency 20 - 30 ng/mL (50 - 75 nmol/L) Sufficiency 30 - 100 ng/mL (75 - 250 nmol/L) Toxicity >100 ng/mL (>250 nmol/L) 22-Jfl-39572:27 CBC with auto diff (82420) Comments: PATIENT WAS FASTINGPERFORMED BY: [facility][id number] [facility] [id number] Immature Grans (Abs) 0.0 {x10E3/uL} (Normal) Range: [...] 3.77-5.28 WBC 3.3 {x10E3/uL} (Abnormal) Range: 3.4-10.8 75-Ocr-863713:35 MAGNESIUM (26887) Comments: PATIENT NOT FASTINGPERFORMED BY: [facility]6370 [facility] [id number] Magnesium, Serum 1.8 mg/dL (Normal) Range: 1.6-2.3 :35 POTASSIUM SERUM (39420) Comments: PATIENT NOT FASTINGPERFORMED BY: [facility]Ewefcn2079 [facility] [id number] Potassium, Serum 4.5 mmol/L (Normal) Range: 3.5-5.2 :00 CBC W/Diff, Automated Comments: [facility] [address]oymotvr[address] [place], [address] Absolute Lymph 0.91 {X10_3/ul} (Normal) Range: 0.83-4.51 [...] 4.2-5.4 WBC 3.5 K/mm3 (Abnormal) Range: 4.4-11.0 11-Yfb-49638:00 Comprehensive Metabolic Profil Comments: [facility] [address] [place], [place], [address] GAP 8 (Normal) Range: 5-15 CO2 31.0 [...] 7-18 GLU 75 mg/dL (Normal) Range: 70-110 26-Ang-04789:00 Erythrocyte Sed Rate Comments: [facility] [address] [place], [place], [address] SED RATE 21 mm/h (Normal) Range: 0-30 :37 CBC W/Diff, Automated Comments: [facility] [address]ehz[address] [place], [address] Absolute Lymph 1.96 {X10_3/ul} (Normal) [...] 4.4-11.0 :37 Thyroid Stim Hormone (TSH) Comments: [facility] Vlrpcnvfxd[address] [place], [address] TSH 4.43 {uIU/mL} (Abnormal) Range: 0.358-3.74 :37 Vitamin B12 969 pg/mL (Abnormal) Comments: [facility] Xtkzwlzwei[address] [place], [address] Range: 211-911 :00 CBC W/ Manual Differential Comments: [facility] Y[address]hpwmlms[address] [place], [address] RED CELL MORPH NORM C+C {NORMAL} [...] admission? NIs Patient on Heparin? [facility] [address]ufnlxyinm[address] [place], [place], [address] GAP 7 (Normal) Range: 5-15 CO2 30.0 [...] admission? NIs Patient on Heparin? [facility] Nwuofkekou0378 [place], [address] FREE T3 2.1 pg/mL (Abnormal) Range: 2.18-3.98 :00 T4 Free Direct Comments: ADD ON TSHHas Patient had X-rays with Contrast this admission? NIs Patient on Heparin? [facility] W[address]oqbuspm7209 [place], [address] T4 FREE DIRECT 1.30 ng/dL (Normal) Range: 0.76-1.46 :00 Thyroid Peroxidase AB Comments: [facility] (refer to report for specific site)refer to report for address and phone number TPO AB 6697 6 {IU/mL} (Normal) Range: 0-34 Comments: Performed at: [address] [id number] Director: Samm Galvan PhD, Phone: [phone] :[phone] Thyroid Stim Hormone (TSH) Comments: ADD ON TSHHas Patient had X-rays with Contrast this admission? NIs Patient on Heparin? [facility] Anqxydjsaj[address] [place], [place], [id number] TSH 5.27 {uIU/mL} (Abnormal) Range: 0.358-3.74 21-Wic-084812:38 CBC W/Diff, Auto - EPLAB Comments: At [facility] Medical Oncologypatients receive CBC w/auto Differential ONLY. Physicianwill place an order for a manual differential or Pathologistreview at his discretion. [facility]. [address] [address] [place] [address] PEANUT ROASTER: JOSE KOHLI DO PH:[phone] Va Medical Center [address]luosui[address] [place], [place], [address] Absolute Lymph 1.55 {X10_3/uL} (Normal) Range: 0.83-4.51 [...] 4.2-5.4 WBC 5.4 K/mm3 (Normal) Range: 4.4-11.0 22-Kvr-090563:19 Pathology Report Comments: PERFORMED BY: KWCYT [facility] Cyto Eceir57222 [facility] [id number] BY: [facility] Dermatopathology Jjzlbqu370 [facility] [address] [place] [id number] Information: [id number] See MATER Comments: Material submitted: .PUNCH BIOPSY LEFT ARMClinician provided ICD-10:D48.5Clinical history: .ACTINIC VS SQUAMOUS CELL CA VS Note (Normal) SEBORRHEIC; SCALY RAISED LESIONRED BASEDiagnosis:SQUAMOUS CELL CARCINOMA IN-SITU, EXTENDING TO ONE LATERAL MARGIN.RUIZ11/23/2015 Electronically signed: .Lesly Lane MD, DermatopathologistGross description: .1 CONTAINER, FORMALIN-FILLED, LABELED WITH PATIENT IDENTIFICATION.PUNCH BIOPSY LEFT ARM:1 PUNCH OF GONZALEZ SKIN MEASURING .4 X .4 X .3 CM. THE SURGICAL MARGINIS INKED BLUE AND THE SPEC IMEN IS BISECTED. THE SPECIMEN IS SUBMITTEDIN CASSETTE(S) A./CORCOR/CORPathologist provided ICD-10:D04.62CPT .[id number] 62-Bcw-684916:15 HgA1C , Office (05047) HgA1C , Office 5.7 % (Normal) Range: 4.6 - 7.1 19-Wfw-815562:13 CBC W/Diff, Automated Comments: [facility] Epldwdobnc[address] [place], [place], [address] Absolute Lymph 1.90 {X10_3/ul} (Normal) Range: 0.83-4.51 [...] 4.2-5.4 WBC 4.5 K/mm3 (Normal) Range: 4.4-11.0 85-Fxo-606652:13 Comprehensive Metabolic Profil Comments: [facility] [address] [place], [place], [address] GAP 6 (Normal) Range: 5-15 CO2 30.0 [...] 7-18 GLU 89 mg/dL (Normal) Range: 70-110 21-Wve-129113:13 CRP Comments: [facility] P[address]fb[address] [facility] [address] [place], [place], [address] C-REACTIVE PROT < 2.90 mg/L (Normal) Range: 0.0-3.0 Comments: C-Reactive Protein (CRP) provides useful information for thediagnosis, therapy and monitoring of inflammatory processesand associated diseases. For the evaluation of Relative Riskfor Cardiovascular Dise ase, a High Sensitivity CRP (HSCRP)should be ordered. 70-Jqy-397573:13 Erythrocyte Sed Rate Comments: [facility] [address] [place], [place], [address] SED RATE 13 mm/h (Normal) Range: 0-30 46-Urh-690924:13 Lipid Profile Comments: [facility] [address] [place], [place], [address] VLDL 32 mg/dL (Normal) Range: 5-40 LDL [...] 200-240 mg/dL Borderline >240 mg/dL High Risk 68-Tvk-385705:13 Rheumatoid Factor Comments: [facility] L[address]we[address] [place], [address] RHEUMATOID FAC < 10.0 {IU/mL} (Normal) 06-Tio-745354:13 Thyroid Stim Hormone (TSH) Comments: [facility] Yzgzcwlimy[address] [facility] [place], [address] TSH 4.62 {uIU/mL} (Abnormal) Range: 0.358-3.74 :54 Lipid Profile Comments: ORDERED: CBCD, CMP, LDH, URIC, XTRADR.FAST ORDERED: LIPID, CMP, VITD, CBCDWBrecksville [facility] Dhnnzzqvgh3451 [facility] [place], [address] VLDL 20 mg/dL (Normal) Range: 5-40 [...] High Risk :54 Vitamin D,25 Hydroxy Comments: [facility] [address] [place], [address] Vitamin D 25-OH 43.8 ng/mL (Normal) Comments: Vitamin D 25(OH) Status Range Deficiency <20 ng/mL (50nmol/L) Insuffciency 20 - 30 ng/mL (50 - 75 nmol/L) Sufficiency 30 - 100 ng/mL (75 - 250 nmol/L) Toxicity >100 ng/mL (>250 nmol/L) :53 CBC W/Diff, Automated Comments: [facility] [address]awd[address] [place], [place], [address] Absolute Lymph 1.63 {X10_3/ul} (Normal) Range: 0.83-4.51 [...] Range: 4.4-11.0 :53 Comprehensive Metabolic Profil Comments: [facility] [address]brg[address] [place], [place], [address] GAP 7 (Normal) Range: 5-15 CO2 32.0 [...] 70-110 :53 LDH 182 U/L (Normal) Comments: [facility] [address] [place], [place], [address] Range: 84-246 :53 Uric Acid Comments: [facility] W[address]wrkp[address] [facility] [address] [place], [place], [address] URIC 4.4 mg/dL (Normal) Range: 2.6-6.0 61-Zub-271816:49 CBC W/Diff, Auto - EPLAB Comments: At [facility] Medical Oncologypatients receive CBC w/auto Differential ONLY. Physicianwill place an order for a manual differential or Pathologistreview at his discretion. [facility] OUT[facility]IENT [facility]. [address] [place] [address] [address] PEANUT ROASTER: JOSE KOHLI DO PH:[phone] [facility] Owziwsfdpu89[address] [place], [address] Absolute Lymph 1.40 {X10_3/uL} (Normal) [...] 4.2-5.4 WBC 4.0 K/mm3 (Abnormal) Range: 4.4-11.0 62-Uxl-272698:43 CBC W/Diff, Automated Comments: [facility] S[address]xcrbruc[address] [place], [address] Absolute Lymph 1.46 {X10_3/ul} (Normal) [...] Serial specimen #1, #2, #3, or #4: [facility] [address] [place], [address] C-REACTIVE PROT < 2.90 mg/L (Normal) Range: 0.0-3.0 Comments: C-Reactive Protein (CRP) provides useful information for thediagnosis, therapy and monitoring of inflammatory processesand associated diseases. For the evaluation of Relative Riskfor Cardiovascular Dise ase, a High Sensitivity CRP (HSCRP)should be ordered. :43 CRP Comments: 'TROP' Serial specimen #1, #2, #3, or #4: [facility] Fmatatytvn1662 [facility] [place], [address] C-REACTIVE PROT < 2.90 mg/L (Normal) Range: 0.0-3.0 Comments: C-Reactive Protein (CRP) provides useful information for thediagnosis, therapy and monitoring of inflammatory processesand associated diseases. For the evaluation of Relative Riskfor Cardiovascular Dise ase, a High Sensitivity CRP (HSCRP)should be ordered. :43 Erythrocyte Sed Rate Comments: [facility] [address] [place], [place], [address] SED RATE 9 mm/h (Normal) Range: 0-30 :43 ASSAY, TROPONIN, QUANTITATIVE Comments: stat; 'TROP' Serial specimen #1, #2, #3, or #4: [facility] [address]ulygpw[address] [place], [place], [address] (aka Troponin I) (64476) TROPONIN-I < 0.02 ng/mL (Normal) Comments: TROPONIN-I EXPECTED VALUES <0.05 NEGATIVE 0.06 - 0.59 AT RISK OF DC > OR = 0.60 SUGGEST DC 42-Joo-499219:15 Basic Metabolic Profile (BMP) Comments: PLEASE REDRAW PREVIOUS SPECIMENS MISLABELED'TROP' Serial specimen #1, #2, #3, or #4: 1'CKMB' Serial Specimen #1, #2 or #3? 1[facility] [address]sgcjl[address] [place], [place], [address] GAP 2 (Abnormal) Range: 5-15 CO2 31.0 [...] 7-18 GLU 103 mg/dL (Normal) Range: 70-110 13-Skm-646487:15 CBC W/Diff, Automated Comments: [facility] Iaxvbxftro[address] [place], [address] Absolute Lymph 1.99 {X10_3/ul} (Normal) Range: 0.83-4.51 [...] 4.2-5.4 WBC 5.8 K/mm3 (Normal) Range: 4.4-11.0 78-Zdt-930363:15 CK-MB Quantitative and Index Comments: PLEASE REDRAW PREVIOUS SPECIMENS MISLABELED'TROP' Serial specimen #1, #2, #3, or #4: 1'CKMB' Serial Specimen #1, #2 or #3? [address] [place] [address] [place], [address] CKRI 0.7 % (Normal) Range: 0.0-1.4 Comments: RELATIVE INDEX >1.5% IS PRESUMPTIVELY POSITIVE CPKMB 0.6 ng/mL (Normal) Range: 0.0-5.0 Comments: CK-MB and RI Interpretation MB Relative Index Non-AMI <or= 5 NA Indeterminate > 5 <or= 4 AMI > 5 > 4 CPK TOTAL 82 U/L (Normal) Range: 26-192 65-Djp-022508:15 Partial Thromboplast Time Comments: [facility] [address] [place], [address] PTT 48.2 s (Abnormal) Range: 24.1-36.2 32-Jsj-120960:15 Prothrombin Time w/INR Comments: [place] [address] [place], [address] INR 2.3 (Normal) PROTIME 25.3 s (Abnormal) Range: 11.7-14.9 86-Okb-160579:15 Troponin-I Comments: PLEASE REDRAW PREVIOUS SPECIMENS MISLABELED'TROP' Serial specimen #1, #2, #3, or #4: 1'CKMB' Serial Specimen #1, #2 or #3? [address] [place] [address] [place], [address] TROPONIN-I < 0.02 ng/mL (Normal) Comments: TROPONIN-I EXPECTED VALUES <0.05 NEGATIVE 0.06 - 0.59 AT RISK OF DC > OR = 0.60 SUGGEST DC 71-Nsg-593064:25 Basic Metabolic Profile (BMP) Comments: Serial Specimen #1, #2 or #3? 1'TROP' Serial specimen #1, #2, #3, or #4: [address] [place] [address] [place], [address] GAP 10 (Normal) Range: 5-15 CO2 [...] 7-18 GLU 104 mg/dL (Normal) Range: 70-110 99-Oau-775916:25 BNP,B-Type NATRIURETIC PEPTIDE Comments: [facility] Cljcpuqmws5272 [facility]. [place], [place], [address] B-TYPE STEFAN PEP 94.1 pg/mL (Normal) Range: 0-100 01-Ebl-730390:25 CBC W/Diff, Automated Comments: [facility] Ukiwvsocvi4162 [facility]. [place], [place], [address] Absolute Lymph 2.03 {X10_3/ul} (Normal) Range: 0.83-4.51 [...] 4.2-5.4 WBC 6.0 K/mm3 (Normal) Range: 4.4-11.0 55-Vox-895100:25 CK-MB Quantitative and Index Comments: Serial Specimen #1, #2 or #3? 1'TROP' Serial specimen #1, #2, #3, or #4: [address] [place] [address] [place], [address] CKRI Test not performed % (Normal) Range: 0.0-1.4 CPKMB < 0.5 ng/mL (Normal) Range: 0.0-5.0 Comments: CK-MB and RI Interpretation MB Relative Index Non-AMI <or= 5 NA Indeterminate > 5 <or= 4 AMI > 5 > 4 CPK TOTAL 69 U/L (Normal) Range: 26-192 85-Ewp-714179:25 Prothrombin Time w/INR Comments: [facility] [address] [place], [address] INR 1.0 (Normal) PROTIME 13.4 s (Normal) Range: 11.7-14.9 28-Bqs-327989:25 Troponin-I Comments: Serial Specimen #1, #2 or #3? 1'TROP' Serial specimen #1, #2, #3, or #4: [address] [place] [address] [place], [address] TROPONIN-I < 0.02 ng/mL (Normal) Comments: TROPONIN-I EXPECTED VALUES <0.05 NEGATIVE 0.06 - 0.59 AT RISK OF DC > OR = 0.60 SUGGEST DC 61-Jnn-544628:50 Urinalysis, Office (24676) UA - LEUKOCYTE ESTERASE Small (Normal) UA - NITRITE Negative (Normal) URINE UROBILINGN DIPAK TIMED Normal mg/dL (Normal) UA - PROTEIN Negative mg/dL (Normal) UA - PH 7.0 (Normal) UA - BLOOD Non Hemolyzed Trace (Normal) UA - SPECIFIC GRAVITY 1.015 (Normal) UA - KETONES Negative mg/dL (Normal) UA - BILIRUBIN Negative (Normal) UA - GLUCOSE Negative (Normal) 47-Kon-629701:16 URINE ELLE CULTURE-IDENTIFICATN Comments: PATIENT NOT FASTINGPERFORMED BY: [facility] Cnwfga9745 [facility] [id number] Information: [id number] ([id number]) Result 1 MUG (Normal) Comments: Mixed urogenital flora1,000 Colonies/mL Urine Culture,Comprehensive Final report (Normal) :58 CBC W/Diff, Automated Comments: [facility] [address]rxypgp[address] [facility] [place], [address] ; non-emergent till apt Absolute Lymph 1.57 [...] 4.2-5.4 WBC 5.6 K/mm3 (Normal) Range: 4.4-11.0 47-Mbs-01973:58 Comprehensive Metabolic Profil Comments: [facility] [address] [place], [place], [address] GAP 8 (Normal) Range: 5-15 CO2 30.0 [...] (Normal) Range: 70-110 :58 Hemoglobin A1c Comments: [facility] [address]flxpsv[address] [place], [place], [address] HGB A1C 5.9 % (Normal) Range: 4.2-6.3 :58 Lipid Profile Comments: [facility] [address]xskclhg[address] [place], [place], [address] VLDL 14 mg/dL (Normal) Range: 5-40 LDL [...] Complete Comments: How was Urine Obtained? CLEAN [facility] Ozpzetdbfk[address] [place], [place], [address] MUCUS, URINE 0 SEEN {/hpf} (Normal) BACTERIA [...] CBC W/Diff, Auto - EPLAB Comments: At [facility] Medical Oncologypatients receive CBC w/auto Differential ONLY. Physicianree place an order for a manual differential or Pathologistreview at his discretion. [facility]. [address] [address] [place] [address] PEANUT ROASTER: JOSE KOHLI DO PH:[phone] VA [facility] [address]raitk[address] [place], [address] ; ordered by Dr. Evgeny [...] 4.2-5.4 WBC 7.0 K/mm3 (Normal) Range: 4.4-11.0 2-Weg-978804:30 Basic Metabolic Profile (BMP) Comments: [facility] [address] [place], [address] GAP 8 (Normal) Range: 5-15 CO2 27.0 [...] 7-18 GLU 84 mg/dL (Normal) Range: 70-110 4-Xzs-303973:30 CBC-Complete Blood Cnt No Diff Comments: [facility] [address]xtk[address] [place], [address] MPV 11.8 fL (Normal) Range: 6.2-12.0 PLT [...] 4.2-5.4 WBC 6.7 K/mm3 (Normal) Range: 4.4-11.0 83-Rao-349031:37 CBC W/Diff, Auto - EPLAB Comments: At [facility] Medical Oncologypatients receive CBC w/auto Differential ONLY. Physicianwill place an order for a manual differential or Pathologistreview at his discretion. [facility]. [address] [address] [place] [address] PEANUT ROASTER: JOSE KOHLI DO PH:[phone] Va Medical Center [address]berqhjd[address] [place], [address] Absolute Lymph 1.77 {X10_3/uL} (Normal) [...] 4.2-5.4 WBC 4.3 K/mm3 (Abnormal) Range: 4.4-11.0 97-Ilz-946811:37 Comprehensive Metabolic Profil Comments: Serial Specimen #1, #2 or #3? 1Is Patient Taking Vitamins or Folic Acid Supplements? [facility] [address]ut[address] [place], [address] GAP 7 (Normal) Range: 5-15 CO2 29.0 [...] 7-18 GLU 84 mg/dL (Normal) Range: 70-110 31-Nts-744059:37 Ferritin Comments: Serial Specimen #1, #2 or #3? 1Is Patient Taking Vitamins or Folic Acid Supplements? [facility] [address] [place], [address] FERRITIN 80 ng/mL (Normal) Range: 8-252 08-Hih-232701:37 Folates, (Folic Acid) Comments: Serial Specimen #1, #2 or #3? 1Is Patient Taking Vitamins or Folic Acid Supplements? [facility] [address] [place], [address] FOLATES 63.40 ng/mL (Abnormal) Range: 3.1-17.5 47-Gdk-956783:37 Iron Comments: Serial Specimen #1, #2 or #3? 1Is Patient Taking Vitamins or Folic Acid Supplements? [facility] [address] [place], [address] IRON 71 ug/dL (Normal) Range: 50-170 91-Ujb-332896:37 Iron Binding Capacity,Total Comments: Serial Specimen #1, #2 or #3? 1Is Patient Taking Vitamins or Folic Acid Supplements? [facility] [address] [place], [address] TIBC 335 ug/dL (Normal) Range: 250-450 72-Bok-536849:37 LDH 162 U/L (Normal) Comments: Serial Specimen #1, #2 or #3? 1Is Patient Taking Vitamins or Folic Acid Supplements? [facility] [address] [place], [address] Range: 84-246 12-Njc-003366:37 Uric Acid Comments: Serial Specimen #1, #2 or #3? 1Is Patient Taking Vitamins or Folic Acid Supplements? [facility] [address] [place], [address] URIC 4.5 mg/dL (Normal) Range: 2.6-6.0 55-Hju-377888:37 Vitamin B12 1077 pg/mL (Abnormal) Comments: [facility] [address] [place], [address] Range: 211-911 68-Iqb-690219:36 CBC W/Diff, Auto - EPLAB Comments: At [facility] [place] Medical Oncologypatients receive CBC w/auto Differential ONLY. Physicianwill place an order for a manual differential or Pathologistreview at his discretion. [facility]. [address] [place] [address] PEANUT ROASTER: JOSE KOHLI DO PH:[phone] Va Medical Center [address] [place], [address] Absolute Lymph 1.97 {X10_3/uL} (Normal) Range: [...] (Normal) Range: 4.4-11.0 :48 Vitamin D Hydroxy (48984) Comments: PATIENT WAS FASTINGPERFORMED BY: [place] [employer] [facility] [id number] Vitamin D, 25-Hydroxy 32.8 ng/mL (Normal) Range: 30.0-100.0 Comments: Vitamin D deficiency has been defined by the [place] of[place] and an Endocrine Society practice guideline as alevel of serum 25-OH vitamin D less than 20 ng/mL (1,2).The Endocrine Society went on to further define vitamin Dinsufficiency as a level between 21 and 29 ng/mL (2).1. IOM ([place] [employer]). 2010. Dietary reference intakes for calcium and D. [place]: The National Academies Press.2. Jose Carlos MF, Flip [place], David ROME, et al. Evaluation, treatment, and prevention of vitamin D deficiency: an Endocrine Society clinical practice guideline. JCEM. 2010; 96(7):1911-30. :48 CBC with auto diff Comments: PATIENT WAS FASTINGPERFORMED BY: [facility] Bykfgx9974 [facility] [id number] Information: [id number] ([id number]) Immature Grans (Abs) 0.0 {x10E3/uL} (Normal) Range: [...] 3.77-5.28 WBC 4.8 {x10E3/uL} (Normal) Range: 3.4-10.8 60-Tkl-39977:48 METABOLIC PANEL, COMPREHENSIVE Comments: PATIENT WAS FASTINGPERFORMED BY: [facility]Ivrzfw9471 [facility] [id number] (41701) ALT (SGPT) 10 [iU]/L (Normal) Range: 0-32 [...] mg/dL (Normal) Range: 65-99 :48 LIPID PANEL (80177) Comments: PATIENT WAS FASTINGPERFORMED BY: [employer]70 BrownScreenmailerLevine Children[facility] Hospital [id number] LDL/HDL Ratio 1.2 {ratio_units} (Normal) Range: 0.0-3.2 [...] CREATININE RATIO Comments: PATIENT WAS FASTINGPERFORMED BY: 1000 CorksLevine Children[facility] Hospital [id number] (94446) AND (02442) Microalb/Creat Ratio 64.2 {mg/g_creat} (Abnormal) Range: 0.0-30.0 Microalbumin, Urine 46.3 ug/mL (Abnormal) Range: 0.0-17.0 Creatinine, Urine 72.1 mg/dL (Normal) Range: 15.0-278.0 :48 Hemoglobin Glyclated (HGB A1C) Comments: PATIENT WAS FASTINGPERFORMED BY: CB [facility] Losieg6142 [facility] [id number] (45269) Hemoglobin A1c 5.7 % (Abnormal) Range: 4.8-5.6 Comments: . Pre-diabetes: 5.7 - 6.4 Diabetes: >6.4 Glycemic control for adults with diabetes: <7.0 74-Wko-748703:28 CBC W/Diff, Auto - EPLAB Comments: At [facility] Medical Oncologypatients receive CBC w/auto Differential ONLY. Physicianwill place an order for a manual differential or Pathologistreview at his discretion. [facility]. [address] [address] [address] PEANUT ROASTER: JOSE KOHLI DO PH:[phone] performed at:[facility] Laborato [address] [place] [address] ; handled by evgeny Absolute Lymph 1.89 [...] W/Diff, Auto - EPLAB Only Comments: At [facility] Medical Oncologypatients receive CBC w/auto Differential ONLY. Physicianwill place an order for a manual differential or Pathologistreview at his discretion. [facility]. [address] [address] [place] [address] PEANUT ROASTER: JOSE KOHLI DO PH:[phone] performed at:[facility] Labor[address] [place], [place] [address] Absolute Neut 2.6 {X10_3/uL} (Normal) Range: 2.0-7.7 [...] Serum Creatinine AND GFR Comments: Test performed at:[facility] [address]qtb[address] [place], [place] [address] EST GFR - AA 62 mL/min (Normal) EST GFR 51 mL/min (Abnormal) CREAT,SERUM 1.12 mg/dL (Normal) Range: 0.55-1.20 Comments: Please note revised CREATININE reference range qomwiloam22/22/2015. 6-Khl-081005:38 CBC W/Diff, Auto - EPLAB Only Comments: At [facility] Medical Oncologypatients receive CBC w/auto Differential ONLY. Physicianwill place an order for a manual differential or Pathologistreview at his discretion. [facility]. [address] [place] [address] [address] PEANUT ROASTER: JOSE KOHLI DO PH:[phone] performed at:[facility] [address] [place], [place] [id number] Absolute Neut 3.0 {X10_3/uL} (Normal) Range: 2.0-7.7 [...] 4.2-5.4 WBC 5.8 K/mm3 (Normal) Range: 4.4-11.0 [id number]:12 FLURESCNT ANTIB SCRN EA Comments: PATIENT WAS FASTINGPERFORMED BY: [employer] [facility] [id number] Information: [id number] ([id number]) celiac profile Immunoglobulin A, Qn, Serum 119 [...] IMMUNOASSAY, ANALYTE Comments: PATIENT WAS FASTINGPERFORMED BY: [id number] [facility] [id number] (NON-INFECT) ([id number]) celiac profile Mitochondrial (M2) Antibody <20.0 {Units} (Normal) Range: 0.0-20.0 Comments: Negative 0.0 - 20.0 Equivocal 20.1 - 24.9 Positive >24.9 . Mitochondrial (M2) Antibodies are found in 90-96% of patients with primary biliary cirrhosis. [id number]-[id number]:12 IGA/IGD/IGG/IGM-EACH ([id number]) Comments: PATIENT WAS FASTINGPERFORMED BY: [id number] [facility] [id number] Immunoglobulin E, Total 2 {IU/mL} (Normal) Range: 0-100 Immunoglobulin M, Qn, Serum 72 mg/dL (Normal) Range: 40-230 Immunoglobulin G, Qn, Serum 884 mg/dL (Normal) Range: 700-1600 31-Jxb-797535:12 METABOLIC PANEL, COMPREHENSIVE Comments: PATIENT WAS FASTINGPERFORMED BY: [facility] Eekzdy2538 [facility] [id number] (24726) ALT (SGPT) 12 [iU]/L (Normal) Range: 0-32 [...] Glucose, Serum 94 mg/dL (Normal) Range: 65-99 33-Sqc-853805:12 LIPID PANEL (70801) Comments: PATIENT WAS FASTINGPERFORMED BY: [facility]Jaaqhk6636 [facility] [id number] LDL/HDL Ratio 1.2 {ratio_units} (Normal) Range: 0.0-3.2 [...] Cholesterol, Total 168 mg/dL (Normal) Range: 100-199 7-Woq-401863:25 HgA1C , Office (19101) HgA1C , Office 5.8 % (Normal) Range: 4.6 - 7.1 96-Duu-112098:0 COLON BIOPSY (CHOOSE See Note (Normal) Comments: Test performed at:[facility] Kid[address]beba[address] [facility] [place], [place] [address] 4 SITE) Comments: Patient: LUPE LOPEZ : 1945 (69/F) Acct Num: [id number] Phys: Samm Boo Unit Num: [id number] Loc: LABSPEC Specimen: [id number] Received: 09/13/141609 Spec Type: Geri CHASE BX TISSUES TISSUES: GROSS DESCRIPTION Received is one container labeled with the patient name and designated biopsy polyp at mid transverse. The specimen consists of one irreg ular fragment of light gonzalez soft tissue that measures 0.3 x 0.2 x 0.1 cm. The specimen is totallysubmitted in one cassette. / AM: 09/17/14 TC:5 CPT: 22249 HEADER OPERATION: Colonoscopy with biopsy PRE-OP DIAGNOSIS: Anemia TISSUE SUBMITTED: Biopsy polyp - mid transverse - rule out adenoma MICROSCOPIC DIAGNOSIS Mid transverse colon polyp, biopsy: Tubular adenoma. AM: 09/17 Signed Jose [facility] 09/17/14 <signature on file> :58 CBC W/Diff, Auto - EPLAB Only Comments: At [facility] Medical Oncologypatients receive CBC w/auto Differential ONLY. Physicianwill place an order for a manual differential or Pathologistreview at his discretion. [facility] OUTPATIENT [facility]. [address] [address] [address] PEANUT ROASTER: JOSE KOHLI DO PH:[phone] performed at:[facility] [address] [place] [address] Absolute Neut 1.6 {X10_3/uL} Range: 2.0-7.7 (Abnormal) [...] BIOPSY See Note (Normal) Comments: Test performed at:[facility] [address] [place] [address] 00 Comments: Patient: LUPE LOPEZ : 1945 (69/F) Acct Num: [id number] Phys: Evgeny Farmer Unit Num: [id number] Loc: EPLAB Specimen: [id number] Received: 07/31/141214 Spec Type: BMB TISSUES TISSUES: ADDENDUM Addendum Number 1 CYTOGENETICS REPORT FROM [email or web address] INTERPRETATION AND COMMENTS: Karyotype: 46,XX[20] A normal female karyotype w as observed in twenty metaphases analyzed. Please see complete report in e-chart or EMR for further details Addendum Signed Jose [facility] 5 <signature on file> BONE MARROW [...] t op tubes which are sent to [facility] for flow cytometry and cytogenetics. / AM: 07/31/14 TC:5 CPT: 08018, 45502, 59459 x2, 45049 x3, 67895 BONE MARROW STUDY CBC DATE: 07/31/14 WBC [...] Highlights myeloid elements and megakaryocytes. COMMENT IHC ([id number]) supports the above diagnosis. Flow cytometry study from [facility] shows no phenotypic evidence of excess blasts, [...] IMMUNOHISTOCHEMISTRY See Note (Normal) Comments: Test performed at:[facility] [address] [place] [address] 00 Comments: Patient: LUPE LOPEZ : 1945 (69/F) Acct Num: [id number] Phys: Evgeny Farmer Unit Num: [id number] Loc: EPLAB Specimen: [id number] Received: 08/01/141157 Spec Type: IMMUN O TISSUES TISSUES: SPECIMEN INFORMATION: Tissue Source: Bone marrow biopsy and clot Clinical Info: Anemia Specimen Number: [id number] A AND B CPT code: 36631, 92715 x19 METHOD OLOGY: Deparaffinized sections of prefer/formalin-fixed [...] (11E3) negative BCL-2 (BCL2/100/D5) negative BCL- 6 (LN22/QW805I/A8) negative Cyclin D 1/BCL-1 (SP4) negative Block B CD3 (LN10/PS1) positive CD5 (4C7/SP10) positive CD10 (56C6) negative CD20 (MJ1/L26) negative CD23 (1B12) negative CD45 (X16/99/ RP2/18) positive CD79a (11E3) negative BCL-2 (BCL2/100/D5) positive BCL-6 (LN22/YL893S/A8) nega tive Cyclin D1/BCL-1 (SP4) negative These tests were developed and their performance characteristics determined by [facility]. They may not have been cleared or approved by the U.S. Food and Drug Administration. The FDA has determined that such clearance or approval is not necessary. INTERPRETATION: A. Bone marrow biopsy: Polytypic lymphoid aggregates. B. Bone marrow clot: Polytypic lymphoid aggregates. Comment: There is no evidence of lymphoma. AM: 08/02/14 PHYSICIAN AND INSTITUTION [facility] [address] [place], [place] [address] Signed Jose Kohli 08/06/14 <signature on file> 9-Crh-430370:59 CBC W/Diff, Auto - EPLAB Only Comments: At [facility] Medical Oncologypatients receive CBC w/auto Differential ONLY. Physicianwill place an order for a manual differential or Pathologistreview at his discretion. [facility]. [address] [address] [address] PEANUT ROASTER: JOSE KOHLI DO PH:[phone] performed at:[facility] Laborato [address] [place], [place] [address] Absolute Neut 2.3 {X10_3/uL} (Normal) Range: 2.0-7.7 [...] W/Diff, Auto - EPLAB Only Comments: At [facility] patientsreceive CBC w/auto Differential ONLY. Physician will placean order for a manual differential or Pathologist review athis discretion. [facility]. [address] [address] [address] PEANUT ROASTER: JOSE KOHLI DO PH:[phone] performed at:[facility] [address] [place] [address] Absolute Neut 2.0 {X10_3/uL} (Normal) [...] 4.2-5.4 WBC 4.0 K/mm3 (Abnormal) Range: 4.4-11.0 25-Zmn-88949:23 Comprehensive Metabolic Profil Comments: Serial Specimen #1, #2 or #3? 1Test performed at:[facility] [address] [place] [address] GAP 6 (Normal) Range: 5-15 [...] Specimen #1, #2 or #3? 1Test performed at:[facility] [address] [facility] [place] [address] FERRITIN 255 ng/mL (Abnormal) Range: 8-252 :23 Iron Comments: Serial Specimen #1, #2 or #3? 1Test performed at:[facility] [address] [facility] [address] [place], [place] [id number] IRON 72 ug/dL (Normal) Range: 50-170 :23 Iron Binding Capacity,Total Comments: Serial Specimen #1, #2 or #3? 1Test performed at:[facility] [address] [facility] [place] [address](606) TIBC 320 ug/dL (Normal) Range: 250-450 :23 LDH 176 U/L (Normal) Comments: Serial Specimen #1, #2 or #3? 1Test performed at:[facility] [address] [facility]. [place], [place] [address] Range: 87-241 :23 Uric Acid Comments: Serial Specimen #1, #2 or #3? 1Test performed at:[facility] [address] [place] [address] URIC 5.2 mg/dL (Normal) Range: 2.6-6.0 :45 Copper, Serum or Plasma Comments: Test performed at:[facility] [address] [place] [address] COPPER 112 ug/dL (Normal) Range: 72-166 Comments: Detection Limit = 5Performed at: [facility] [address] [id number] Director: Scot Nuñez PhD, Phone: [phone] at: [facility] [id number] Director: Satish Mayer MD, Phone: [phone] :45 Lead, Blood Adult 16+yrs Comments: Test performed at:[facility] [address] [place] [address] LEAD *Form (Normal) Comments: None Detected Environmental Exposure: WHO Recommendation <20 Occupational Exposure: OSHA Lead Std 40 NIKI 30 Detection Limit = 1 1-Rnc-307185:43 Comprehensive Metabolic Profil Comments: Serial Specimen #1, #2 or #3? 1Is Patient Taking Vitamins or Folic Acid Supplements? NTest performed at:[facility] [address] [place] [address] GAP 6 (Normal) Range: 5-15 [...] 7-18 GLU 86 mg/dL (Normal) Range: 70-110 6-Xzl-389469:43 Direct Antiglobulin Diann YUVAL Comments: Test performed at:[facility] [address] [place] [address] DIRECT DIANN= NEG w/POLYSPECIFIC (Normal) 4-Dfx-442357:43 Erythropoietin Comments: Is Patient Fasting? NTest performed at:[facility] [address] [place] [address] ERYTHROP 567376 24.8 m[iU]/mL (Abnormal) Range: 2.6-18.5 8-Zpw-756088:43 Ferritin Comments: Serial Specimen #1, #2 or #3? 1Is Patient Taking Vitamins or Folic Acid Supplements? NTest performed at:[facility] [address] [place] [address] FERRITIN 11 ng/mL (Normal) Range: 8-252 2-Krw-816638:43 Folates, (Folic Acid) Comments: Serial Specimen #1, #2 or #3? 1Is Patient Taking Vitamins or Folic Acid Supplements? NTest performed at:[facility] [address] [place] [address] FOLATES 48.80 ng/mL (Abnormal) Range: 3.1-17.5 0-Tma-192216:43 Haptoglobin Comments: Is Patient Fasting? NTest performed at:[facility] [address] [place] [address] HAPTOGLOB 1628 224 mg/dL (Abnormal) Range: 34-200 Comments: Performed at: - [facility] [id number] Director: Scot Nuñez PhD, Phone: [phone] 5-Akf-673191:43 THEE + Protein Elect, Serum Comments: Is Patient Fasting? NTest performed at:[facility] [address] [place] [address] NOTE: Comment (Normal) Comments: Protein electrophoresis scan will follow via computer,mail, or policyholder information clerk delivery. THEE RESULT,S Comment: (Normal) Comments: THEE SHOWS ATYPICAL LAMBDA. A/G RATIO 1.4 (Normal) Range: 0.7-2.0 GLOBULIN, TOTAL 2.8 g/dL (Normal) Range: 2.0-4.5 M-SPIKE (Normal) Comments: Not Observed GAMMA GLOBULIN 0.9 g/dL (Normal) Range: 0.5-1.6 BETA GLOBULIN 0.9 g/dL (Normal) Range: 0.6-1.3 RFDLU-0-FIUG 0.9 g/dL (Normal) Range: 0.4-1.2 CTKWB-6-XHHH 0.3 g/dL (Normal) Range: 0.1-0.4 ALBUMIN 3.9 g/dL (Normal) Range: 3.2-5.6 IMMUNOGL M 1792 69 mg/dL (Normal) Range: 40-230 IMMUNO A 1784 133 mg/dL (Normal) Range: 91-414 IMMUNO G 1776 959 mg/dL (Normal) Range: 700-1600 PROTEIN,TOTAL 6.7 g/dL (Normal) Range: 6.0-8.5 :43 Iron Binding Capacity,Total Comments: Serial Specimen #1, #2 or #3? 1Is Patient Taking Vitamins or Folic Acid Supplements? NTest performed at:[facility] [address] [place] [address] TIBC 407 ug/dL (Normal) Range: 250-450 0-Oto-955999:43 Bodfish Lambda Light Chains Comments: Is Patient Fasting? NTest performed at:[facility] [address] [place] [address] KAPPA/LAMBDA % 1.35 (Normal) Range: 0.26-1.65 FR LAMBDA LT CH 18.72 mg/L (Normal) Range: 5.71-26.30 FR KAPPA LT CHN 25.25 mg/L (Abnormal) Range: 3.30-19.40 :43 LDH 173 U/L (Normal) Comments: Serial Specimen #1, #2 or #3? 1Is Patient Taking Vitamins or Folic Acid Supplements? NTest performed at:[facility] [address] [place] [address] Range: 87-241 :43 Retic Panel Comments: Test performed at:[facility] [address] [place] [address] IPF 2.5 % (Normal) Range: [...] Vitamins or Folic Acid Supplements? NTest performed at:[facility] [address] [place] [address] TSH 1.87 {uIU/mL} (Normal) Range: 0.358-3.74 :43 Uric Acid Comments: Serial Specimen #1, #2 or #3? 1Is Patient Taking Vitamins or Folic Acid Supplements? NTest performed at:[facility] [address] [place] [address] URIC 5.0 mg/dL (Normal) Range: 2.6-6.0 :43 Vitamin B12 548 pg/mL (Normal) Comments: Test performed at:[facility] [address] [place] [id number] Range: 211-911 :42 CBC W/Diff, Auto - EPLAB Only Comments: At [facility] Care patientsreceive CBC w/auto Differential ONLY. Physician will placean order for a manual differential or Pathologist review athis discretion. [facility]. [address] [place] [address] PEANUT ROASTER: JOSE KOHLI DO PH:[phone] performed at:[facility] [address] [place] [id number] Absolute Neut 2.6 {X10_3/uL} (Normal) Range: 2.0-7.7 [...] PANEL, COMPREHENSIVE Comments: PATIENT WAS FASTINGPERFORMED BY: [facility] Xhoyhg3114 [facility] [id number] (83968) ALT (SGPT) 5 [iU]/L (Normal) Range: 0-32 [...] Glucose, Serum 96 mg/dL (Normal) Range: 65-99 84-Vcx-21140:56 LIPID PANEL (70784) Comments: PATIENT WAS FASTINGPERFORMED BY: [facility]Tfpfqx7052 [facility] [id number] LDL/HDL Ratio 1.3 {ratio_units} (Normal) Range: 0.0-3.2 [...] Cholesterol, Total 176 mg/dL (Normal) Range: 100-199 29-Jks-92407:56 CBC W/AUTO DIFF WBC Comments: PATIENT WAS FASTINGPERFORMED BY: [facility]Zcjumq1170 [facility] [id number] Information: [id number] (48400) Immature Grans (Abs) 0.0 {x10E3/uL} (Normal) Range: [...] Random Urine Comments: PATIENT WAS FASTINGPERFORMED BY: [facility] Oniczv6304 [facility] [id number] Please note: SPRCS (Normal) Comments: Protein electrophoresis scan will follow via computer, mail, orcourier delivery. M-Abhinav, % Not Observed % (Normal) Gamma Globulin, U 19.9 % (Normal) Beta Globulin, U 25.8 % (Normal) Gxuog-5-Tmwmeqty, U 12.8 % (Normal) Omfqh-3-Rjdcjljn, U 1.3 % (Normal) Albumin, U 40.2 % (Normal) Protein,Total,Urine 13.5 mg/dL (Normal) Range: 0.0-15.0 :44 Protein Electro.,S Comments: PATIENT WAS FASTINGPERFORMED BY: [facility] Xyudlx7246 [facility] [id number]; will review on 05/07 appt Please note: SPRCS (Normal) Comments: Protein electrophoresis scan will follow via computer, mail, orcourier delivery. A/G Ratio 1.2 (Normal) Range: 0.7-2.0 Globulin, Total 3.0 g/dL (Normal) Range: 2.0-4.5 M-Abhinav Not Observed g/dL (Normal) Gamma Globulin 1.0 g/dL (Normal) Range: 0.5-1.6 Beta Globulin 0.8 g/dL (Normal) Range: 0.6-1.3 Oieae-4-Nvodmvil 0.9 g/dL (Normal) Range: 0.4-1.2 Bjplb-4-Przdhlkz 0.3 g/dL (Normal) Range: 0.1-0.4 Albumin 3.7 g/dL (Normal) Range: 3.2-5.6 Protein, Total, Serum 6.7 g/dL (Normal) Range: 6.0-8.5 Written Authorization WAR (Normal) Comments: PATIENT WAS FASTINGPERFORMED BY: [facility]Runrcm8316 [facility] [id number] :44 Comments: Written Authorization Received.Authorization received from ENRIKE JAIMES [id number] by Jyothi Boland 0-Lwc-665721:44 LIPID PANEL (98411) Comments: PATIENT WAS FASTINGPERFORMED BY: [facility]Zcrlqw7434 [facility] [id number] LDL/HDL Ratio 1.9 {ratio_units} (Normal) Range: 0.0-3.2 [...] Cholesterol, Total 211 mg/dL (Abnormal) Range: 100-199 2-Xsx-329393:37 FECAL OCCULT- Tubes sent home (09078) FECAL OCCULT HGB ASSAY, QUAL, 1-3 SIMULTANEOU positive (Normal) 7-Ezq-336394:[address] [facility] [facility] Comments: PATIENT WAS FASTINGPERFORMED BY: [facility]Dqtrmh4289 [facility] [id number] (56677) Reticulocyte Count 1.6 % (Normal) Range: 0.6-2.6 6-Jmc-262459:44 LDH (LD) (LACTATE DEHYDROGENASE) Comments: PATIENT WAS FASTINGPERFORMED BY: [facility]6370 [facility] [id number] (46571) LDH 207 [iU]/L (Normal) Range: 119-226 5-Qrn-894004:44 IRON BINDING CAPACITY (TIBC) Comments: PATIENT WAS FASTINGPERFORMED BY: [facility]Ohblrn1554 [facility] [id number] (65359) Iron Saturation 16 % (Normal) Range: 15-55 Iron, Serum 50 ug/dL (Normal) Range: 35-155 UIBC 270 ug/dL (Normal) Range: 150-375 Iron Bind.Cap.(TIBC) 320 ug/dL (Normal) Range: 250-450 :44 FERRITIN (17836) Comments: PATIENT WAS FASTINGPERFORMED BY: [facility]6370 [facility] [id number] Ferritin, Serum 84 ng/mL (Normal) Range: 15-150 :44 CBC W/AUTO DIFF WBC (44169) Comments: PATIENT WAS FASTINGPERFORMED BY: [facility]Zbdijf1111 [facility] [id number] Immature Grans (Abs) 0.0 {x10E3/uL} (Normal) Range: [...] CREATININE RATIO Comments: PATIENT WAS FASTINGPERFORMED BY: [facility]vo[facility] Penemarie K Murphy [facility] [id number] (73606) AND (95193) Microalb/Creat Ratio 21.9 {mg/g_creat} (Normal) Range: 0.0-30.0 Microalbumin, Urine 22.0 ug/mL (Abnormal) Range: 0.0-17.0 Creatinine, Urine 100.3 mg/dL (Normal) Range: 15.0-278.0 :44 Hemoglobin Glyclated (HGB A1C) Comments: PATIENT WAS FASTINGPERFORMED BY: [facility] Penemarie K Murphy [facility] [id number] (82341) Hemoglobin A1c 5.5 % (Normal) Range: 4.8-5.6 Comments: . Increased risk for diabetes: 5.7 - 6.4 Diabetes: >6.4 Glycemic control for adults with diabetes: <7.0 :39 Microscopic Examination Comments: PATIENT NOT FASTINGPERFORMED BY: [facility] Fgvoae3707 [facility] [id number] Bacteria Few (Normal) Mucus Threads Present (Normal) Epithelial Cells (non renal) 0-10 {/hpf} (Normal) Range: 0 - 10 RBC 0-2 {/hpf} (Normal) Range: 0 - 2 WBC 6-10 {/hpf} (Abnormal) Range: 0 - 5 :37 D-Dimer (81374) Comments: PATIENT NOT FASTINGPERFORMED BY: [facility]6370 [facility] [id number] Information: [id number] D-Dimer 0.84 {mg/L_FEU} (Abnormal) Range: 0.00-0.49 Comments: In conjunction with a non-high clinical probability assessment, anormal (<0.50 mg/L FEU) result excludes deep vein thrombosis (DVT)and pulmonary embolism (PE) with high sensitivity. :39 Vitamin D Hydroxy (34954) Comments: PATIENT NOT FASTINGPERFORMED BY: [facility] Ykxdqi55[address] Brown RoadDublin [place] [id number] Vitamin D, 25-Hydroxy 38.7 ng/mL (Normal) Range: 30.0-100.0 Comments: Vitamin D deficiency has been defined by the [place] of[place]icine and an Endocrine Society practice guideline as alevel of serum 25-OH vitamin D less than 20 ng/mL (1,2).The Endocrine Society went on to further define vitamin Dinsufficiency as a level between 21 and 29 ng/mL (2).1. IOM ([place] [employer]). 2010. Dietary reference intakes for calcium and D. [place]: The National Academies Press.2. Jose Carlos MF, Flip [place], David ROME, et al. Evaluation, treatment, and prevention of vitamin D deficiency: an Endocrine Society clinical practice guideline. JCEM. 2010; 96(7):1911-30. 77-Sog-921477:39 Valproic Acid (08453) Comments: PATIENT NOT FASTINGPERFORMED BY: [facility] Hnicps[address] [facility] HospitalDublin [place] [id number] Valproic Acid (Depakote),S 105 ug/mL (Abnormal) Range: 50-100 Comments: Detection Limit = 4 <4 indicates None Detected . Toxicity may occur at levels of 100-500. Measurements of free unbound valproic acid may improve the assess- ment of clinical response.Patient drug level exceeds published reference range. Evaluateclinically for signs of potential toxicity. 43-Snk-502477:39 VITAMIN B-12 (CYANOCOBALAMIN) Comments: PATIENT NOT FASTINGPERFORMED BY: [facility] Hjoanm[address] [facility] [place] [id number] (82002) Vitamin B12 1017 pg/mL (Abnormal) Range: 211-946 82-Qgy-871358:39 FERRITIN (57184) Comments: PATIENT NOT FASTINGPERFORMED BY: CB [facility] K[address]qzyv6[address] Road[address]ublin [place] [id number] Ferritin, Serum 77 ng/mL (Normal) Range: 15-150 39-Lwm-392776:39 IRON (10112) Comments: PATIENT NOT FASTINGPERFORMED BY: [facility] Nubuph5916 [facility] [id number] Iron, Serum 32 ug/dL (Abnormal) Range: 35-155 85-Rtx-282373:39 CBC W/AUTO DIFF WBC Comments: PATIENT NOT FASTINGPERFORMED BY: CHAN [facility]Koxlkz6914 [facility] [id number] Information: P86463,2ND ORDER NO DRAW F EE (02205) Immature Grans (Abs) 0.0 {x10E3/uL} (Normal) Range: [...] 6.2 {x10E3/uL} (Normal) Range: 3.4-10.8 :39 TSH (60285) Comments: PATIENT NOT FASTINGPERFORMED BY: [facility]Oyeowu1346 [facility] [id number] TSH 1.800 {uIU/mL} (Normal) Range: 0.450-4.500 :39 URINALYSIS, W/ MICRO (15663) Comments: PATIENT NOT FASTINGPERFORMED BY: [facility]6370 [facility] [id number] Microscopic Examination See below: (Normal) Comments: Microscopic was indicated and was performed. Nitrite, Urine Negative (Normal) Urobilinogen,Semi-Qn 0.2 mg/dL (Normal) Range: 0.0-1.9 Bilirubin Negative (Normal) Occult Blood Negative (Normal) Ketones Negative (Normal) Glucose Negative (Normal) Protein Negative (Normal) WBC Esterase 1+ (Abnormal) Appearance Clear (Normal) Urine-Color Yellow (Normal) pH 6.5 (Normal) Range: 5.0-7.5 Specific [place] 1.013 (Normal) Range: 1.005-1.030 :39 METABOLIC PANEL, COMPREHENSIVE Comments: PATIENT NOT FASTINGPERFORMED BY: [facility]6370 [facility] [id number] (44166) ALT (SGPT) 5 [iU]/L (Normal) Range: 0-32 [...] Syncope Planned Observations CBC with auto diff (01421)Indication: Elevated hemoglobin A1c On: 00-Shs-883207:16 Request METABOLIC PANEL, COMPREHENSIVE (81200)Indication: Elevated hemoglobin A1c On: 63-Env-537686:16 Request HGB A1C (26906)Indication: Elevated hemoglobin A1c On: 36-Yei-344555:16 Request LIPID PANEL (73962)Indication: Other hyperlipidemia On: 92-Vfu-555532:16 Request TSH (66244)Indication: Abnormal TSH On: 67-Npw-942821:09 Request TSH (THYROID STIMULATING HORMONE) (75215)Indication: Abnormal TSH On: 11-Vea-433480:15 Request LIPID PANEL (50425)Indication: Other hyperlipidemia On: 40-Ooy-612132:14 Request CBC with auto diff (21186)Indication: Elevated hemoglobin A1c On: 73-Oel-715653:14 Request METABOLIC PANEL, COMPREHENSIVE (42151)Indication: Elevated hemoglobin A1c On: 97-Rao-378848:14 Request HGB A1C (07083)Indication: Elevated hemoglobin A1c On: 46-Ghu-367119:14 Request CBC W/AUTO DIFF WBC (07818)Indication: Anemia On: 01-Baj-475336:30 Request CBC with auto diff (84192)Indication: Anemia On: 68-Fmx-374234:02 Request METABOLIC PANEL, COMPREHENSIVE (41199)Indication: Impaired Fasting Glucose (Renamed from Elevated fasting blood sugar) On: 27-Inw-477841:02 Request TSH (25889)Indication: Abnormal TSH On: 18-Ddz-597510:01 Request SED RATE ERYTHROCYTE (02940)Indication: Anemia On: :58 Request C-REACTIVE PROTEIN (07681)Indication: Anemia On: :58 Request FOLIC ACID SERUM (54348)Indication: Anemia On: :58 Request VITAMIN B-12 (CYANOCOBALAMIN) (26072)Indication: Anemia On: :58 Request IGA/IGD/IGG/IGM-EACH (63625)Indication: Anemia On: 37-Yrs-325497:33 Request CBC W/AUTO DIFF WBC (95232)Indication: Impaired Fasting Glucose (Renamed from Elevated fasting blood sugar) On: 25-Nnp-058835:31 Request METABOLIC PANEL, COMPREHENSIVE (73634)Indication: Impaired Fasting Glucose (Renamed from Elevated fasting blood sugar) On: 13-Xfv-037471:31 Request Vitamin D Hydroxy (62989)Indication: Other osteoporosis On: :22 Request CBC with auto diff (52603)Indication: Anemia On: 52-Eps-117590:22 Request TSH (THYROID STIMULATING HORMONE) (61194)Indication: Abnormal TSH On: 92-Ehe-290691:21 Request HGB A1C (08080)Indication: Impaired Fasting Glucose (Renamed from Elevated fasting blood sugar) On: 35-Qxd-005311:21 Request serum immunofixation (71307)Indication: Anemia On: 35-Lep-590836:21 Request urine immunofixation (75259)Indication: Anemia On: 13-Wxs-493765:21 Request LIPID PANEL (99091)Indication: Other hyperlipidemia On: 24-Hzu-962631:15 Request METABOLIC PANEL, COMPREHENSIVE ([id number])Indication: Hypertension, benign On: 30-Mvk-956386:14 Request LIPID PANEL ([id number])Indication: Fibromyalgia (Renamed from Diffuse myofascial pain syndrome) On: 22-Jbi-540490:14 Request TSH (THYROID STIMULATING HORMONE) ([id number])Indication: Abnormal TSH On: :15 Request HGB A1C (52984)Indication: Impaired Fasting Glucose (Renamed from Elevated fasting blood sugar) On: :15 Request CBC with auto diff ([id number])Indication: Hypertension, benign On: :15 Request METABOLIC PANEL, COMPREHENSIVE ([id number])Indication: Hypertension, benign On: :15 Request LIPID PANEL ([id number])Indication: Other hyperlipidemia On: :14 Request ASSAY, TROPONIN, QUANTITATIVE (aka Troponin I) ([id number])Indication: Atypical chest pain On: 9-Rvr-515685:02 Request TSH ([id number])Indication: Abnormal TSH On: 1-Nlp-888868:56 Request CBC WITH MANUAL DIFF ([id number])Indication: Other specified nutritional anemias On: 0-Dya-856168:48 Request Comments: 1 month TSH (THYROID STIMULATING HORMONE) ([id number])Indication: Hypertension, benign On: 6-Hpn-922973:15 Request Iron ([id number])Indication: Anemia On: 1-Hns-574968:59 Request METABOLIC PANEL, COMPREHENSIVE (43506)Indication: Other osteoporosis On: 5-Dlo-789637:01 Request Vitamin D Hydroxy (06165)Indication: Other osteoporosis On: :37 Request LIPID PANEL ([id number])Indication: Other hyperlipidemia On: :36 Request HGB A1C (50392)Indication: Impaired Fasting Glucose (Renamed from Elevated fasting blood sugar) On: :35 Request MICROALBUMIN: CREATININE RATIO (67525) AND ([id number])Indication: Impaired Fasting Glucose (Renamed from Elevated fasting blood sugar) On: :35 Request Metabolic Panel, Comprehensive ([id number])Indication: Gastroenteritis On: :09 Request CBC, Platelets & Auto Diff ([id number])Indication: Gastroenteritis On: 20-Azi-026910:09 Request Sed Rate Erythrocyte (60659)Indication: Gastroenteritis On: 94-Yug-898520:09 Request CBC WITH MANUAL DIFF ([id number])Indication: Anemia On: 1-Vew-956496:12 Request Comments: 6 weeks TSH (33697)Indication: Abnormal TSH On: 3-Wtc-354592:11 Request Comments: 6 weeks VITAMIN B-12 (CYANOCOBALAMIN) (35146)Indication: Anemia On: :39 Request TSH ([id number])Indication: Abnormal TSH On: 93-Wdt-90416:40 Request CBC W/AUTO DIFF WBC ([id number])Indication: Anemia On: 83-Knt-24332:40 Request TSH ([id number])Indication: Abnormal TSH On: :25 Request Comments: ADD ON METABOLIC PANEL, COMPREHENSIVE ([id number])Indication: Impaired Fasting Glucose (Renamed from Elevated fasting blood sugar) On: :43 Request Anti-TPO Antibody ([id number])Indication: Abnormal TSH On: :42 Request T4, FREE (THYROXINE) ([id number])Indication: Abnormal TSH On: :42 Request T3, FREE (TRIDOTHYRONINE) ([id number])Indication: Abnormal TSH On: 16-Ewj-078163:42 Request RHEUMATOID FACTOR-QUANT (07740)Indication: Chronic right shoulder pain On: :32 Request SED RATE ERYTHROCYTE ([id number])Indication: Chronic right shoulder pain On: :32 Request C-REACTIVE PROTEIN ([id number])Indication: Chronic right shoulder pain On: 55-Vbx-067766:32 Request CBC W/AUTO DIFF WBC ([id number])Indication: Hypertension, benign On: :31 Request METABOLIC PANEL, COMPREHENSIVE (76899)Indication: Hypertension, benign On: :31 Request LIPID PANEL ([id number])Indication: Other hyperlipidemia On: :31 Request TSH ([id number])Indication: Chest pain at rest On: 18-Cmy-293669:31 Request HGB A1C (12340)Indication: Impaired Fasting Glucose (Renamed from Elevated fasting blood sugar) On: 2-Bdz-276554:00 Request CBC with auto diff ([id number])Indication: Impaired Fasting Glucose (Renamed from Elevated fasting blood sugar) On: 7-Cgc-738944:00 Request METABOLIC PANEL, COMPREHENSIVE ([id number])Indication: Impaired Fasting Glucose (Renamed from Elevated fasting blood sugar) On: 0-Eql-067548:00 Request LIPID PANEL ([id number])Indication: Other hyperlipidemia On: 8-Pnv-903480:00 Request VITAMIN B-12 (CYANOCOBALAMIN) (37133)Indication: Other specified nutritional anemias On: 6-Pqj-653637:59 Request Vitamin D Hydroxy (23694)Indication: Other osteoporosis On: 0-Qho-533609:59 Request CBC (AUTO) ([id number])Indication: Other osteoporosis On: :48 Request Vitamin D Hydroxy (94789)Indication: Other osteoporosis On: :48 Request METABOLIC PANEL, COMPREHENSIVE (43345)Indication: Other hyperlipidemia On: :48 Request LIPID PANEL ([id number])Indication: Other hyperlipidemia On: :48 Request SED RATE ERYTHROCYTE ([id number])Indication: Chest pain, unspecified type On: :39 Request Comments: stat C-REACTIVE PROTEIN ([id number])Indication: Chest pain, unspecified type On: :39 Request Comments: stat CBC W/AUTO DIFF WBC ([id number])Indication: Chest pain, unspecified type On: 34-Hmq-599470:39 Request Comments: stat Hemoglobin Glyclated (HGB A1C) (31625)Indication: Impaired Fasting Glucose (Renamed from Elevated fasting blood sugar) On: 55-Ggl-675672:50 Request URINALYSIS, W/ MICRO ([id number])Indication: Hypertension, benign On: 11-Mos-546124:49 Request CBC with auto diff ([id number])Indication: Other specified nutritional anemias On: 53-Pnd-286068:49 Request METABOLIC PANEL, COMPREHENSIVE ([id number])Indication: Other specified nutritional anemias On: 55-Pck-628016:49 Request LIPID PANEL ([id number])Indication: Other hyperlipidemia On: 20-Ryl-711460:49 Request CBC W/AUTO DIFF WBC ([id number])Indication: Other specified nutritional anemias On: :24 Request METABOLIC PANEL, COMPREHENSIVE (31041)Indication: Other hyperlipidemia On: :24 Request LIPID PANEL (65601)Indication: Other hyperlipidemia On: :24 Request IRON ([id number])Indication: Other specified nutritional anemias On: 8-Ket-830823:37 Request Planned Encounters Medical; [facility] 3 Month FU - On: 22-Feb-2018 13:00 [facility] Fast DO, Enrike A Fast DO, Enrike A Planned Procedures Radiology - Cervical SpineBy: Fast On: 19-Nov-2017 Intent DO, Enrike A Fast DO, Enrike A Cartoid DopplerBy: Fast DO, Enrike A On: 17-Nov-2017 Intent Fast DO, Enrike A SCREENING DIGITAL TOMOSYNTHESIS OF On: 17-Nov-2017 Intent BREAST ([id number])By: Fast DO, Enrike A Fast DO, Enrike A MRI OF THORACIC SPINE WITHOUT On: 13-Aug-2017 Intent CONTRAST ([id number])By: Fast DO, Enrike A Fast DO, Enrike A MRI LUMBAR SPINE W/O CONTRAST On: 13-Aug-2017 Intent ([id number])By: Fast DO, Enrike A Fast DO, Enrike A INJECTION, PROLIA ([id number])By: Fast On: 26-Jul-2017 Intent DO, Enrike A Fast DO, Enrike A Comments: Prolia prefilled syringe 60mg/mlLot:[id number]:10/2019L arm SQPt tolerated wellMLONG ,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 Radiology - Lumbar SpineBy: Fast DO, On: 09-Jun-2017 Intent Enrike A Fast DO, Enrike A Radiology - Thoracic SpineBy: Fast On: 09-Jun-2017 Intent DO, Enrike A Fast DO, Enrike A MRI OF BRAIN WITH AND WITHOUT On: 13-Apr-2017 Intent CONTRAST ([id number])By: Fast DO, Enrike A Fast DO, Enrike A ELECTROCARDIOGRAM, COMPLETE (ECG) On: 13-Apr-2017 Intent ([id number])By: Fast DO, Enrike A Fast DO, Comments: [...] DIGITAL TOMOSYNTHESIS OF On: 30-Sep-2016 Intent BREAST ([id number])By: Fast DO, Enrike A Comments: end of oct Fast DO, Enrike A CT - Chest (Without Contrast)By: On: 30-Sep-2016 Intent Fast DO, Enrike A Fast DO, Enrike A Cartoid DopplerBy: Fast DO, Enrike A On: 04-Sep-2016 Intent Fast DO, Enrike A DEXA SCAN AXIAL SKELETON ([id number])By: On: 04-Sep-2016 Intent Fast DO, Enrike A Fast DO, Enrike A Comments: mid september INJECTION, PROLIA ([id number])By: Fast On: 26-Aug-2016 Intent DO, Enrike A Fast DO, Enrike A Comments: prolialot:[id number]:ite:lt subqroute:subqdose:60mg/mlD.ARNOLDO Ardon ELECTROCARDIOGRAM, COMPLETE (ECG) On: 22-Jul-2016 Intent ([id number])By: Matt DO, Enrike A Fast DO, Comments: ekg showed normal sinus rhythym, normal axis, no acute st/t wave changes Enrike A Cartoid DopplerBy: Fast DO, Enrike A On: 25-May-2016 Intent Fast DO, Enrike A Comments: bilateral INFUSION, NORMAL SALINE SOLUTION , On: 09-Apr-2016 Intent 1000 CC (Special Coverage Instructions Apply. See MCM: 9) ([id number])By: Albert JC, Madyson Roman ELECTROCARDIOGRAM, COMPLETE (ECG) On: 12-Feb-2016 Intent ([id number])By: Matt MCDUFFIE, Enrike A Fast DO, Comments: ekg showed normal sinus rhythym, normal axis, no acute st/t wave changes Enrike A CT - Chest (Without Contrast)By: On: 12-Feb-2016 Intent Fast DO, Enrike A Fast DO, Enrike A Flu Vaccine (Quadrivalent) 07963Mh: On: 12-Feb-2016 Intent Fast DO, Enrike A Fast DO, Enrike A Comments: FLUlot: [id number]:08/05site:Lt deltoidroute:IMdose:.5mlARNOLDO WALLACE ADMINISTRATION OF INFLUENZA VIRUS On: 12-Feb-2016 Intent VACCINE ([id number])By: Fast DO, Enrike A Fast DO, Enrike A MAMMOGRAM, SCREENING, BOTH BREAST On: 13-Nov-2015 Intent ([id number])By: Fast DO, Enrike A Fast DO, Enrike [...] Intent Fast DO, Enrike A ZOSTER VACC, NE ([id number])By: Reva On: 06-Mar-2015 Intent [place] Comments: Zosterlot:[id number]:01/26/16ite:lt subqroute:subqDEMICK, SMA PNEUM VAC ADLT/IMUMNOSPR, SBC/INTRM On: 20-Feb-2015 Intent ([id number])By: Visit, Nurse Comments: Pnuemovaxlot:[id number]:10/30/16site:lt deltoidroute:IMDose:.5mlDEMICK, SMA Flu Vaccine (Quadrivalent) 31914Bn: On: 11-Feb-2015 Intent Fast DO, Enrike A Fast DO, Enrike A Comments: Lot #:[id number] date: 08/2015Amount given:prefilled syringeSite given:L Dltd, IMGiven by: MARGOTH Garibay and ABN signed ADMINISTRATION OF INFLUENZA VIRUS On: 11-Feb-2015 Intent VACCINE ([id number])By: Fast DO, Enrike A Fast DO, Enrike A MAMMOGRAM, SCREENING, BOTH BREAST On: 25-Sep-2014 Intent ([id number])By: Fast DO, Enrike A Fast DO, Enrike [...] 17-Apr-2014 Intent CHEST WITH AND WITHOUT CONTRAST ([id number])By: Fast DO, Enrike A Fast DO, Enrike A CT - Brain/HeadBy: Fast DO, Enrike A On: 16-Apr-2014 Intent Fast DO, Enrike A Doppler Ultrasound OtherBy: Fast DO, On: 16-Apr-2014 Intent Enrike A Fast DO, Enrike A EKG (84370)By: Fast DO, Enrike A On: 16-Apr-2014 Intent [...] pressure, high chol esterol, osteoporosis/osteopenia and other (AKTINA, anemia, migraine, PE). Note for Follow up [...] for copd/cough - and was back [facility] they monitoring her = bp is [...] The patient does have durable power of [place] attorney and l iving will (she thinks). The patient has noticed staying at home rather than doing something new or going out and lack of energy. Other providers contributing to the patient's care are transitions rn care coordinator (Dr. Cota), finance intern (Dr. Pop) and other: (Ice Cream Freezer Helper- Dr. Villa sees eye dr wade). Note for Annual Medicare Exam: bps have [...] Limb swelling), Fatigue [facility] Payers [place]/Medicare Adv Olivia LOPEZ; a guarantor
--- OUTSIDE RECORDS SUMMARY | 2018-04-13 15:25 | XMS RPT_ITS | Continuity of Care Document ---
:1945 Author Organization [facility] Address [address] [facility] [address] [place] [address] Phone Care Team Providers Name Role Phone Enrike Jaimes DO Unavailable Cipriano JC, Mike Avelar Unavailable Dayron Monique Unavailable Domenic Navarrete [place] Unavailable Steven Carlisle MD Unavailable [facility], [facility] Unavailable Phong Graham Unavailable Mao Benitez [...] Refills: 3 Ordered:25-Jan-2017 Enrike Jaimes DO, DO, Enrike Arnold Start : 25-Jan-2017 Active MULTIVITAMIN (PO Tab) 1 (one) daily Active Prolia 60 MG/ML Subcutaneous Solution 1 (one) Solution Solution 1 injection every 6 months for 0 days Quantity: 1 {Pre-filled_Pen_Syringe} Refills: 1 Ordered:12-Jul-2017 Enrike Jaimes DO, DO, Debra A Start : 12-Jul-2017 Active Comments:Pt gets funding thru the [employer] so send a bill to either them or the pt and then they will ma-qwxqazh-dur 07/28/16 RaNITidine HCl 300 MG Oral Tablet [...] 500MG (Oral Tablet) 1 (one) Tablet daily b48pmxi for 14 days Quantity: 14 {Tablet} Refills: [...] : 26-Mar-2017 Inactive Comments:take with food in [facility] meloxicam while on this Promethazine HCl [...] [facility] i went to house, called in [place] [facility], told her brat diet slowly, my nurse [...] Visit Report Result: Comments: See Note; NOTES: [facility] Oncology [address] [place] [address] [place] [address] OFFICE VISIT Date of Service: 01/25/18 1145 MR#: [id number] Acct: [id number] Name: LUPE LOPEZ Rep #: [id number] : 1945 From: Red Spaulding MD Age/Sex: [...] Iron supplements with Vitamin C o r [place] juice. Check stool for FOBT. RTC 6 [...] Chronic Code Visit Office Visits / Consults: 12824 OV L3 Est 01/25/18 1153 <Electronically signed by Red Spaulding MD> Date Red Spaulding MD Cosigner Signature: Date (if applicable) CC: Enrike Jaimes DO 23-Dec-2017 Cerv Spine 2 or 3 Views Result: Comments: See Note; NOTES: [facility] Imaging Services [address] [place] [address] Cerv Spine 2 or 3 Views MR#: [id number] Acct: [id number] Name: LUPE LOPEZ Rep #: [id number] : 1945 F 72 From: Ming Odonnell MD PCP: Enrike Jaimes DO Status: REG CLI Study: Cerv Spine 2 or 3 Views Date of Exam: 12/23/17 Exam# [id number] Ordering Dr: Karla Berry PUBLIC WORKS INSPECTOR-C STUDY: X-RAY - C ERVICAL SPINE REASON [...] Fax CC: Enrike Jaimes DO; Karla Berry Chief Of Staff Doctor: Signed 23-Dec-2017 Thoracic Spine 2 Views Result: Comments: See Note; NOTES: [facility] Imaging Services [address] [place] [address] Thoracic Spine 2 Views MR#: [id number] Acct: [id number] Name: LUPE LOPEZ Rep #: [id number] : 1945 F 72 From: Ming Odonnell MD PCP: Enrike Jaimes DO Status: REG CLI Study: Thoracic Spine 2 Views Date of Exam: 12/23/17 Exam# [id number] Ordering Dr: Karla Berry STUDY: X-RAY - [...] CC: Enrike Jaimes DO; Karla LOPEZ Prebish Chief Of Staff Doctor: Signed 11-Dec-2017 Carotid Duplex Ultrasound Result: Comments: See Note; NOTES: [facility] Cardiovascular Services [address] [place] [address] Carotid Duplex Ultrasound 12/10/17 1013 MR#: [id number] Acct: [id number] Name: LUPE BOOGIE Rep #: [id number] : 1945 72 From: Brice Murphy MD Attending Dr: Enrike Jaimes DO Status: REG CLI Ordering Dr: Enrike Jaimes DO Date: 12/10/17 Location: [facility] Sex: F C Admitted: Reason For [...] the left vertebral artery. Procedure Carotid Duplex 62382. Exam performed in department. Interpretation Summary Mild (<50%) stenosis right extracranial inter nal carotid. Mild (<50%) stenosis left extracranial internal carotid. Flow within the vertebral arteries is antegrade bilaterally. Ordering Physician: Enrike Jaimes Referring Physician: Enrike Jaimes Performed By: Riaz Ashley RVT and Student 12/11/17 1406 Date Brice Murphy MD CC: Enrike Jaimes DO Date Dictated: 12/10/17 1013 Date Transcribed: 12/11/17 1406 Chief Of Staff Doctor: Signed 10-Dec-2017 SCREENING MAMM (CAD), BILAT Result: Comments: See Note; NOTES: [facility] Imaging Services [address] [place] [address] SCREENING MAMM (CAD), BILAT MR#: [id number] Acct: [id number] Name: LUPE LOPEZ Rep #: [id number] : 1945 F 72 From: Johnny Gilman MD PCP: Enrike Jaimes DO Status: REG CLI Study: SCREENING MAMM (CAD), BILAT Date of Exam: 12/10/17 Exam# [id number] Ordering Dr: Enrike Jaimes DO MAMM OGRAPHY [...] will be sent to the patient by [facility] within 30 days. Approximately 10% of breast cancers are not detected by mammography. A normal mammogram should not delay biopsy of a clinically suspicious abnormality. [id number] Electronical ly Signed: Johnny Gilman MD at 13:14 EDT Tel [phone], Service support , CC: Enrike Jaimes DO Chief Of Staff Doctor: Signed 30-Nov-2017 Pulmonary Visit Report Result: Comments: See Note; NOTES: [facility] [place] [address] [place] [address] OFFICE VISIT Date of Service: 11/30/17 MR#: [id number] Acct: [id number] Name: LUPE BOOGIE Rep #: [id number] : 1945 Provider: Merlin Pop MD Age/Sex: 72/F Location: [facility] Status: Signed Assessment AND Plan Problems 1. [...] Orders: Medications Discontinued: azelastine admini ster into gaal330.5 mcg (0.14 mL) Intranasal BIDJ30.2 Merlin Pop MD nostril Discontinued Reason: Pt no longer taking HPI 6 M FU: Chief Complaint: Chronic cough Details: [facility] 72[facility] currently under care of [...] kg Intake Visit Reasons: 6 M FU Central Service Tech Required: No Accompanied by: Family / Other [...] Lung nodule (Chronic) Atherosclerotic heart disease of [place] coronary artery without angina pectoris (Chronic) Moderate [...] Admin Location Lot Number Ex piration Date [facility] Certified [place] Administrator 0.5 mL IM Left Deltoid [id number] 07/19/17 [id number] SEQIRUS VIS Given Date VIS Publication Date [...] Downtime Report Result: Comments: See Note; NOTES: [facility] Medical Records Department [address] [place] [address] Downtime Report MR#: [id number] Acct: [id number] Name: LUPE LOPEZ Rep #: [id number] : 1945 72 From: Turner Diop PCP: Enrike Jaimes DO Status: REG CLI This patient was seen during an EMR downtime August 23, 2017 - August 30, 2017. This patient may have a combination of rosa maria r and electronic documentation or all paper documentation. All documentation is viewable within the e-chart portion of [employer] for each patient visit. 27-Aug-2017 Spine Lumbar (Routine) Result: Comments: See Note; NOTES: [facility] Imaging Services [address] [place] [address] Spine Lumbar (Routine) MR#: [id number] Acct: [id number] Name: CHASE LOPEZCatalina Rep #: [id number] : 1945 F 72 From: Carlos Pizano PCP: Enrike Jaimes DO Status: REG CLI Study: Spine Lumbar (Routine) Date of Exam: 08/25/17 Exam# [id number] Ordering Dr: Enrike Jaimes DO STUDY: MRI [...] suppo rt , CC: Enrike Jaimes DO Chief Of Staff Doctor: Signed 11-Aug-2017 Re-Evaluation - PT (1) Result: Comments: See Note; NOTES: [facility] [address] [place] [address]. [address] [place] [address] Fax REEVALUATION / MEDICARE RECERTI FICATION PHYSICAL THERAPY MR#: [id number] Acct: [id number] Name: LUPE LOPEZ Rep #: [id number] : 1945 72 From: Shanon Ferrara MPT Referring DrBrooke: Enrike Jaimes DO Status: REG RCR Insurance: [facility] SELF PAY INSURANCE Enrike Fast, DO, It has been my pleasure to treat LUPE LOPEZ over the last 7 visits for LOW BACK PAIN. Please see the progress note below for an update on [facility] physical therapy plan of care! Subjective: [...] do not hesitate to contact me at [phone] by phone or if you have questions or concerns regarding this new plan of care! Sincerely, Shanon Ferrara &#60 ;Electronically signed by Shanon Ferrara MPT> 08/11/17 1913 CC: Enrike Jaimes DO Signed For Medicare only, by signing this I certify the plan of care. Physicians Signature Date 27-Jul-2017 Oncology Visit Report Result: Comments: See Note; NOTES: [facility] Oncology [address] [facility] [place] [address] OFFICE VISIT Date of Service: 07/27/17 1128 MR#: [id number] Acct: [id number] Name: LUPE LOPEZ Rep #: [id number] : 1945 From: Red Spaulding MD Age/Sex: [...] continue Iron supplements with Vitamin C or [place] juice. RTC 6 months with CBC, CMP, Iron studies. [place] dications: Prescriptions This Visit Medication Instructions Recorded Meloxicam [Mobic] 15 mg PO DAILY 06/16/16 Rivaroxaban [Xarelto] 20 mg PO DAILY 06/29/16 Primary Care Provider: Enrike Jaimes DO Refe rring Provider: - Problem List (1) Iron deficiency Status: Resolved Code Visit Office Visits / Consults: 17977 OV L3 Est 07/27/17 1135 <Electronically signed by Red Spaulding MD> Date Red Spaulding MD Cosigner Signature: Date (if applicable) CC: 15-Jul-2017 Stress Report Result: Comments: See Note; NOTES: [facility] Cardiovascular Services [address] [place] [address] MR#: [id number] Acct: [id number] Name: LUPE LOPEZ Rep #: [id number] : [birth year] 72 From: Mike Cota MD [...] %. This note was g enerated with [employer] software. It may contain incorrect words, spelling, and punctuation that were not noted in checking the note before signing. 07/15/17 1311 <Electronically s igned by Mike Cota MD> Date Mike Cota MD CC: Enrike Jaimes DO; Mike Cota MD Date Dictated: 07/15/17 130 Date Transcribed: 07/15/17 130 Chief Of Staff Doctor: PM Signed 08-Jul-2017 Inital Evaluation (1) - PT Result: Comments: See Note; NOTES: [facility] Physical Therapy [address] [place], [place] [address] Fax REHABILITATION SERVICES INITIAL EVALUATION MR#: [id number] Acct: [id number] Name: LUPE LOPEZ Rep #: [id number] [...] to be FAXED BACK to us at [phone] for Medicare purposes. Please let me know [...] Visit Report Result: Comments: See Note; NOTES: [facility] [address] [place] [address] OFFICE VISIT Date of Service: 07/05/17 MR#: [id number] Acct: [id number] Name: LUPE LOPEZ Rep #: [id number] : 1945 Provider: Mike Cota MD Age/Sex: 72/F Location: [facility] Status: Signed HPI HPI Details: LUPE [...] Her previous diagnostic cardiac cathete rization from [facility] from 05/03/2009 is as noted below. ASSESSMENT: 1. Mild to moderate coronary atherosclerosis, non-flow limiting by angiography. 2. Presered left rbih6jwvyv systolic a nd diastolic function. CLINICAL CORRELATION: This Is a 64-year-old wtio presents with angina ha1ng atypical features, she has nonflowIlmTting disease hr which aggressiw medical therapy is warranted Incl uding aspirin, beta jonn, DAPHNEY Inhibitor, and statin therapy. 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 She will also follow with her lead pl sql developer based on her underlying pulmonary disease process [...] disease) I25.10 Coronary Disease-Associated Arter y/Lesion type: [place] artery Hyperlipidemia, unspecified hyperlipidemia type E78.5 Hyperlipidemia type: unspecified Essential hypertension I10 Hypertension type: essential hypertension Chest pain, unspe cified type R07.9 Chest pain type: unspecified Coding Level of Care Code Off vis,est,level 4 Diagnoses Paroxysmal atrial fibrillation I48.0 CAD (coronary artery disease) I25.10 Coronary Disease-Assoc iated Artery/Lesion type: [place] artery Hyperlipidemia, unspecified hyperlipidemia type E78.5 Hyperlipidemia type: unspecified Essential hypertension I10 Hypertension type: essential hypertension Chest pain, unspecified type R07.9 Chest pain type: unspecified 07/05/17 1123 <Electronically signed by Mike Cota MD> Date Mike washburn MD Cosigner Signature: Date (if applicable) CC: Enrike Jaimes DO 05-Jul-2017 12 Lead EKG performed by [facility] Result: Comments: See Note; NOTES: [facility] [address] [place] [address] 12 Lead EKG performed by [facility] 07/05/17 1033 MR#: [id number] Acct: [id number] Name: LUPE SANDOVAL Rep #: [id number] : 1945 72 From: Mike Cota MD Attending Dr: Mike Cota MD Status: DEP AMB Ordering Dr: Mike Cota MD Date: 07/05/17 Location: [facility] Sex: F C Admitted: BMS/12 Lead EKG performed by [facility] ECG Report Interpretation Sinus Bradycardia -First degree A-V block Poor R wave progressionElectronically signed on 2017 at 11:45 by Mike Cota 07/05/17 1146 Date Mike Cota MD CC: Enrike Jaimes DO Date Dictated: 07/05/171032 Date Transcribed: 07/05/171032 Chief Of Staff Doctor: PM Signed 16-Jun-2017 Pulmonary Visit Report Result: Comments: See Note; NOTES: [facility] [place] [address] [facility] [place] [address] OFFICE VISIT Date of Service: 06/16/17 MR#: [id number] Acct: [id number] Name: LUPE BOOGIE Rep #: [id number] : 1945 Provider: Kirsten Padilla Age/Sex: 72/F Location: [facility] Status: Signed Assessment AND Plan 1. Moderate [...] symptoms, rested and overcame the illness w [facility] intervention. She continues to use Advair [...] PO DAILY 06/20/15 [History Confirmed 06/16/17] Ipratropium [place] 0.06% [ATROVENT NASAL SPRAY] 1 spray NASAL [...] BMI 26.0-26.9,adult (Chronic) Atherosclerotic heart disease of [place] coronary artery without angina pectoris (Chronic) Moderate [...] J30.2 Allergic rhinitis trigger: unspe cified 06/16/17 0966 <Electronically signed by Kirsten LOPEZ> Date Kirsten Simer Signature: Date ___ (if applicable) CC: Enrike Jaimes DO 09-Jun-2017 L/S Spine Min 4 Views Result: Comments: See Note; NOTES: [facility] Imaging Services [address] [place] [address] L/S Spine Min 4 Views MR#: [id number] Acct: [id number] Name: LUPE LOPEZ Rep #: [id number] : 1945 F 72 From: Brennan Mike DO PCP: Enrike Jaimes DO Status: REG CLI Study: L/S Spine Min 4 Views Date of Exam: 06/09/17 Exam# [id number] Ordering Dr: Enrike Jaimes DO STUDY: X-RAY [...] Brennan Mike DO at 16:29 EDT Tel [phone], Service support , Fax CC: Enrike Jaimes DO Chief Of Staff Doctor: Signed 09-Jun-2017 Thoracic Spine 3 Views Result: Comments: See Note; NOTES: [facility] Imaging Services [address] [place] [address] Thoracic Spine 3 Views MR#: [id number] Acct: [id number] Name: LUPE LOPEZ Rep #: [id number] : 1945 F 72 From: Jose Antonio Jensen PCP: Enrike Jaimes DO Status: REG CLI Study: Thoracic Spine 3 Views Date of Exam: 06/09/17 Exam# [id number] Ordering Dr: Enrike Jaimes DO STUDY: X-RAY [...] suppo rt , CC: Enrike Jaimes DO Chief Of Staff Doctor: Signed 19-Apr-2017 Brain W/WO Contrast Result: Comments: See Note; NOTES: [facility] Imaging Services [address] [place] [address] Brain W/WO Contrast MR#: [id number] Acct: [id number] Name: LUPE LOPEZ Rep #: [id number] : 1945 F 72 From: Steven Ratliff MD PCP: Enrike Jaimes DO Status: REG CLI Study: Brain W/WO Contrast Date of Exam: 04/19/17 Exam# [id number] Ordering Dr: Enrike Jaimes DO STUDY: MRI [...] Service support , CC: Enrike Jaimes DO Chief Of Staff Doctor: Signed 05-Jan-2017 Hepatobilliary Img w/Pharm Int Result: Comments: See Note; NOTES: [facility] Imaging Services [address] [place] [address] Hepatobilliary Img w/Pharm Int MR#: [id number] Acct: [id number] Name: LUPE LOPEZ Rep # : [id number] : 1945 F 71 From: Dom Sorto DO PCP: Enrike Jaimes DO Status: REG CLI Study: Hepatobilliary Img w/Pharm Int Date of Exam: 01/05/17 Exam# [id number] Ordering Dr: Enrike Jaimes DO CLI NICAL: [...] Service support , CC: Enrike Jaimes DO Chief Of Staff Doctor: Signed 23-Dec-2016 Gallbladder Result: Comments: See Note; NOTES: [facility] Imaging Services [address] [place] [address] Gallbladder MR#: [id number] Acct: [id number] Name: LUPE LOPEZ Rep #: [id number] : F 71 From: Terri Dash MD PCP: Enrike Jaimes DO Status: REG CLI Study: Gallbladder Date of Exam: 12/23/16 Exam# [id number] Ordering Dr: Enrike Jaimes DO US Gallbladder [...] Service support , CC: Enrike Jaimes DO Chief Of Staff Doctor: Signed 19-Nov-2016 SCREENING MAMM (CAD), BILAT Result: Comments: See Note; NOTES: [facility] Imaging Services [address] [place] [address] SCREENING MAMM (CAD), BILAT MR#: [id number] Acct: [id number] Name: LUPE LOPEZ Rep #: [id number] : 1945 F 71 From: Johnny Gilman MD PCP: Enrike Jaimes DO Status: REG CLI Study: SCREENING MAMM (CAD), BILAT Date of Exam: 11/19/16 Exam# [id number] Ordering Dr: Enrike Jaimes DO MAMM OGRAPHY [...] Johnny Gilman MD at 11:14 EDT Tel [phone], Service support , CC: Enrike Jaimes DO Chief Of Staff Doctor: Signed 17-Nov-2016 6 Minute Walk Test Result: Comments: See Note; NOTES: [facility] Pulmonary Services/Neurology [address] [place] [address] MR#: [id number] Acct: [id number] Name: LUPE LOPEZ Rep #: [id number] : 04/14/1944 71 From: Merlin Pop MD Referring Dr: Kirsten Padilla PUBLIC WORKS INSPECTOR Date: Ordering Dr: Sex: F C Location: PSN PSN 6 Minute Walk Test - 6 Minute Walk Test 6 Minute Walk Test: 6 Minute Walk Test PS N:6-Minute Walk Test Start: 11/17/16 11:09 Freq: Status: Active Document 11/17/16 11:00 HG (Rec: 11/17/16 11:11 HG [id number]) 6 Minute Walk Test Date Performed 11/17/16 [...] CC: Date Dictated: 11/17/161548 Date Transcribed: 11/17/161548 Chief Of Staff Doctor: Merlin Pop Signed 12-Nov-2016 Pulmonary Function Report Comp Result: Comments: See Note; NOTES: [facility] Pulmonary Services/Neurology [address] [place] [address] MR#: [id number] Acct: [id number] Name: LUPE LOPEZ Rep #: [id number] : 71 From: Merlin Pop MD Referring Dr: Kirsten Padilla PUBLIC WORKS INSPECTOR Status: REG CLI Ordering Dr: Date: Location: [facility] Sex: F C COMPLETE PULMONARY FUNCTION TEST INTERPRETATION Brief HPI: Patient is a 71 year old female, currently under the care of myself, who presents to [facility] for complete pulmonary function tests secondary [...] Date Dictated: 11/12/16 1533 Date Transcribed: 11/12/161532 Chief Of Staff Doctor: EDENILSON Signed 06-Oct-2016 Chest without Contrast Result: Comments: See Note; NOTES: [facility] Imaging Services [address] [place] [address] Verdana 4d Chest without Contrast MR#: [id number] Acct: [id number] Name: LUPE LOPEZ p #: [id number] : 1945 F 71 From: Sonam Hendricks MD PCP: Enrike Jaimes DO Status: REG CLI Study: Chest without Contrast Date of Exam: 10/06/16 Exam# [id number] Ordering Dr: Enrike Jaimes DO STUDY: CT [...] Sonam Hendricks MD at 23:59 EDT Tel [phone], Service support , CC: Enrike Jaimes DO Chief Of Staff Doctor: Signed 29-Sep-2016 Dexa Bone Density Study (HP) Result: Comments: See Note; NOTES: [facility] Imaging Services [address] [place] [address] Verdana 4d Dexa Bone Density Study (HP) MR#: [id number] Acct: [id number] Name: BRAYDON LOPEZ Rep #: [id number] : 1945 F 71 From: Johnny Gilman MD PCP: Enrike Jaimes DO Status: [facility] CLI Study: Dexa Bone Density Study (HP) Date of Exam: 09/29/16 Exam# [id number] Ordering Dr: Szymanski DO STUDY: DUAL ENERGY [...] Johnny Gilman MD at 9:38 EDT Tel [phone], Service support , CC: Enrike Jaimes DO Chief Of Staff Doctor: Signed 19-Sep-2016 Carotid Duplex Ultrasound Result: Comments: See Note; NOTES: [facility] Cardiovascular Services [address] [place] [address] Carotid Duplex Ultrasound 09/18/16 1406 MR#: [id number] Acct: [id number] Name: LUPE BOOGIE Rep #: [id number] : 1945 71 From: Brice Murphy MD Attending Dr: Enrike Jaimes DO Status: REG CLI Ordering Dr: Enrike Jaimes DO Date: 09/18/16 Location: [facility] Sex: F C Admitted: Reason For [...] the left vertebral artery. Procedure Carotid Duplex 04856. The exam was diagnostic. Exam performed in [facility]. Interpretation Summary Mild (<50%) stenosis right [...] Date Dictated: 09/18/16 1406 Date Transcribed: 09/19/16943 Chief Of Staff Doctor: Signed 16-Sep-2016 PT D/C Summary (1) Result: Comments: See Note; NOTES: [facility] Physical Therapy Health[address] [place] [address] Fax REHABILITATION SERVICES DISCHAR GE SUMMARY MR#: [id number] Acct: [id number] Name: LUPE LOPEZ Rep #: [id number] [...] (1) Result: Comments: See Note; NOTES: [facility] [address] [place] [address]. [address] [place] [address] Fax REEVALUATION / MEDICARE RECERTI KALEN Juanito 4d PHYSICAL THERAPY MR#: [id number] Acct: [id number] Name: LUPE LOPEZ Rep #: [id number] : 1945 71 From: Shanon Ferrara MPT [...] do not hesitate to contact me at [phone] by phone or if you have questions or concerns reg arding this new plan of care! Sincerely, Shanon Ferrara <Electronically signed by Shanon Ferrara MPT> 08/26/16 1822 CC: Enrike Jaimes DO Signed For Medic are only, by signing this I certify the plan of care. Physicians Signature Date 28-Jul-2016 Inital Evaluation (1) - PT Result: Comments: See Note; NOTES: [facility] [place], [place] [address] Fax REHABILITATION SERVICES INITIAL EVALUATION MR#: [id number] Acct: [id number] Name: LUPE LOPEZ Rep #: [id number] [...] to be FAXED BACK to us at [phone] for Medicare purposes. Please let me know if there are questions or reza rns regarding this plan of care. Physician Signature: Date: <Electronically signed by Shanon Ferrara MPT> 07/28/16 1629 CC: Enrike Jaimes DO Signed For Medicare only, by signing this I certify the plan of care. Physicians Signature Date 08-Jul-2016 Oncology Progress Note Result: Comments: See Note; NOTES: [facility] Medical Records Department [address] [place] [address] Oncology Progress Note MR#: [id number] Acct: [id number] Name: LUPE LOPEZ Rep #: [id number] : 1945 71 From: Red Spaulding MD [...] folate. Red Spaulding MD T: NTS JOB: [id number] 07/08/16 1043 <Electronically signed by Red Spaulding MD> Date Red Spaulding MD Cosigner Signature (If Indicated): Date CC: Date Dictated: 06/20 Date Transcribed: 06/30/162251 Chief Of Staff Doctor: Signed 21-Feb-2016 Chest without Contrast Result: Comments: See Note; NOTES: [facility] Imaging Services [address] [place] [address] Verdana 4d Chest without Contrast MR#: [id number] Acct: [id number] Name: LUPE LOPEZ p #: [id number] : 1945 F 71 From: Barrett Small MD PCP: Enrike Jaimes DO Status: REG CLI Study: Chest without Contrast Date of Exam: 02/21/16 Exam# [id number] Ordering Dr: Enrike Jaimes DO STUDY : [...] MD at 2:43 EST , Service support [phone], CC: Enrike Jaimes DO Chief Of Staff Doctor: Signed 08-Dec-2015 Pulmonary Function Report Comp Result: Comments: See Note; NOTES: [facility] Pulmonary Services/Neurology [facility] [place] [address] Pulmonary Function Test (Comp) MR#: [id number] Acct: [id number] Name: Evelia LOPEZ Rep #: [id number] : 1945 70 From: Merlin Pop MD Referring Dr: Kirsten Padilla PUBLIC WORKS INSPECTOR Status: REG CLI Ordering Dr: Kirsten Padilla PUBLIC WORKS INSPECTOR-C Date: 12/06/15 Location: [facility] Sex: F C DATE OF S [...] patient's primary care physician T: NTS JOB: [id number] 12/08/15 0651 <Electronically signed by Merlin Pop MD> Date __ Merlin Pop MD CC: Merlin Pop MD; Kirsten Padilla; Enrike Jaimes DO Date Dictated: 12/07/15 1235 Date Transcribed: 12/07/15 1235 Chief Of Staff Doctor: Signed 19-Nov-2015 Bilat Scrn Digital AND CAD Result: Comments: See Note; NOTES: [facility] Imaging Services [address] [place] [address] Verdana 4d Bilat Scrn Digital AND CAD MR#: [id number] Acct: [id number] Name: DYLAN LOPEZ Rep #: [id number] : 1945 F 70 From: Johnny Gilman MD PCP: Enrike Jaimes DO Status: REG CLI Study: Bilat Scrn Digital AND CAD Date of Exam: 11/19/15 Exam# [id number] Ordering Dr: Enrike Jaimes DO MAMMOGRAPHY - [...] delay biopsy of a clinically suspicious abnormality. [id number] Electronically Signed: Johnny Gilman MD at 8:15 ED T Tel [phone], Service support [phone], CC: Enrike Jaimes DO Chief Of Staff Doctor: Signed 07-Oct-2015 Knee 4 or More Views Result: Comments: See Note; NOTES: [facility] Imaging Services [address] [place] [address] Verda 4d Knee 4 or More Views MR#: [id number] Acct: [id number] Name: LUPE LOPEZ Rep #: [id number] : 1945 F 70 From: Johnny Gilman MD PCP: Enrike Jaimes DO Status: REG CLI Study: Knee 4 or More Views Date of Exam: 10/07/15 Exam# [id number] Ordering Dr: Yamileth Jaimes DO STUDY: X-RAY [...] Johnny Gilman MD at 13:02 EDT Tel [phone], Service support [phone], RAD/Knee 4 or More Views IMPRESSION: Minimal joint effusion. Electronically Signed: Johnny Gilman MD at 13:02 EDT Tel [phone], Service support [phone], CC: Enrike Jaimes DO Chief Of Staff Doctor: Signed 27-Aug-2015 PT D/C Summary (1) Result: Comments: See Note; NOTES: [facility] [address] [place] [address]. [address] [place], [place] [address] Fax REHABILITATION RVICES DISCHARGE SUMMARY MR#: [id number] Acct: [id number] Name: LUPE LOPEZ Rep #: [id number] : 1945 70 From: Domenic Ayala PT, Cert. MDT Referring DrBrooke: Enrike Jaimes DO Status: REG R CR Insurance: [employer] MED[employer]ARE [facility] - PT D/C Summary It has [...] feel free to c all me at [phone]. Thank you for the referral of this patient. Sincerely, Domenic Ayala <Electronically signed by Domenic Ayala PT, Cert. JCT> 08/27/15 1406 CC: Enrike Jaimes DO Signed -Jul-2015 Inital Evaluation (1) - PT Result: Comments: See Note; NOTES: [facility] [address] [place] [address]. [address] [place] [address] Fax REHABILITATION SE RVICES INITIAL EVALUATION MR#: [id number] Acct: [id number] Name: LUPE LOPEZ Rep #: [id number] : 1945 70 From: Domeinc Ayala PT, CertBrooke JCT Referring DrBrooke: Enrike [...] ROM, To increase oxygenation perfusion, To increase een ance to activity/condition/position, To improve health of tissue, To decrease soft tissue restriction Thank you for the opportunity to evaluate your patient. For Medicare and Medicare HMO plans, please review the plan of care and approve it. It will need to be FAXED BACK to us at [phone] for Medicare purposes. Please let me know [...] 5 Views Result: Comments: See Note; NOTES: [facility] Imaging Services [address] [place] [address] Verdana 4d Cerv Spine 4 or 5 Views MR#: [id number] Acct: [id number] Name: LUPE MCCARTHY Rep #: [id number] : 1945 F 70 From: Vu Hankins MD PCP: Enrike Jaimes DO Status: REG CLI Study: Cerv Spine 4 or 5 Views Date of Exam: 07/30/15 Exam# [id number] Ordering Dr: Szymanski DO STUDY: X-RAY - [...] MD at 17:12 EDT , Service support [phone], RAD/Cerv Spine 4 or 5 Views IMPRESSION: Diffuse oste openia with moderate cervical spondylosis. Electronically Signed: Vu Hankins MD at 17:12 EDT , Service support [phone], CC: Enrike Jaimes DO Chief Of Staff Doctor: Signed 30-Jul-2015 Shoulder min 2 Views Result: Comments: See Note; NOTES: [facility] Imaging Services [address] [place] [address] Verdana 4d Shoulder min 2 Views MR#: [id number] Acct: [id number] Name: LUPE LOPEZ Rep #: [id number] : 1945 F 70 From: Vu Hankins MD PCP: Enrike Jaimes DO Status: REG CLI Study: Shoulder min 2 Views Date of Exam: 07/30/15 Exam# [id number] Ordering Dr: Enrike Jaimes DO STUDY: X-RAY [...] at 17:12 EDT Tel , Service support [phone], RAD/Shoulder min 2 Views IMPRESSION: Normal x-ray examination of the shoulder. Electronically Signed: Vu Hankins MD 07/29 at 17:12 EDT , Service support [phone], CC: Enrike Jaimes DO Chief Of Staff Doctor: Signed 02-Jul-2015 Chest PA and Lateral Result: Comments: See Note; NOTES: [facility] Imaging Services [address] [place] [address] Verdana 4d Chest PA and Lateral MR#: [id number] Acct: [id number] Name: LUPE LOPEZ Rep #: [id number] : 1945 F 70 From: Johnny Gilman MD PCP: Enrike Jaimes DO Status: REG CLI Study: Chest PA and Lateral Date of Exam: 07/02/15 Exam# [id number] Ordering Dr: Yamileth Jaimes DO STUDY: X-RAY [...] Johnny Gilman MD at 11:24 EDT Tel [phone], Service support [phone], RAD/Chest PA and Lateral IMPRESSION: The previously seen right upper lobe infiltrate rome s resolved. No acute abnormality is seen at this time. Electronically Signed: Johnny Gilman MD at 11:24 EDT Tel [phone], Service support [phone], CC: Enrike Jaimes DO Chief Of Staff Doctor: Signed 02-Jul-2015 ELECTROCARDIOGRAM, COMPLETE (ECG) (04115) Comments: ekg showed normal sinus rhythym, normal axis, no acute st/t wave changes sinus maggie Result: [MEASUREMENTS ANALYSIS] Date of Test: 07/02/2015 10:18:39; Heart Rate: 56; MS Interval: 222; QRS: 100; QT Interval: 448; Corrected QT Interval (QTc): 441; P Wave [place]: 90; QRS Wave [place]: 6; T Wave [place]: 18; Blood Pressure: 156/64 [ECG DIAGNOSTIC STATEMENTS] Date of Test: 07/02/2015 10:18:39; Summary: Sinus Bradycardia -First degree A-V block Tessy = 222BORDERLINE RHYTHM 02-Jul-2015 Spirometry (32330) Comments: good effort and curve normal Result: 24-Jun-2015 Venous Duplex Lower Extremity Result: Comments: See Note; NOTES: [facility] Cardiovascular Services [address] [place] [address] Venous Duplex US - Ibrahima Extrem 06/24/15 1102 MR#: [id number] Acct: [id number] Name: LUPE LOPEZ Rep #: [id number] : 1945 70 From: Brice Murphy MD [...] Dictated: 06/24/15 1102 Date Transcribed: 06/24/15 1908 Chief Of Staff Doctor: Signed 20-Jun-2015 CTA Chest W/WO Contrast Result: Comments: See Note; NOTES: [facility] Imaging Services [address] [place] [address] Verdana 4d CTA Chest W/WO Contrast MR#: [id number] Acct: [id number] Name: LUPE MCCARTHY Rep #: [id number] : 1945 F 70 From: Johnny Gilman MD PCP: Enrike Jaimes DO Status: REG ER Study: CTA Chest W/WO Contrast Date of Exam: 06/20/15 Exam# [id number] Ordering Dr: Sonam Colon MD STUDY: CTA [...] Johnny Gilman MD at 15:25 EDT Tel [phone], Service support , CC: Enrike Jaimes DO; Sonam Sheth MD Chief Of Staff Doctor: Signed 20-Jun-2015 Chest 1 View (Portable) Result: Comments: See Note; NOTES: [facility] Imaging Services [address] [place] [address] Verda 4d Chest 1 View (Portable) MR#: [id number] Acct: [id number] Name: LUPE MCCARTHY Rep #: [id number] : 1945 F 70 From: Johnny Gilman MD PCP: Enrike Jaimes DO Status: REG ER Study: Chest 1 View (Portable) Date of Exam: 06/20/15 Exam# [id number] Ordering Dr: Sonam Colon MD STUDY: X-RAY [...] Johnny Gilman MD at 13:07 EDT Tel [phone], Se rvice support [phone], RAD/Chest 1 View (Portable) IMPRESSION: Focal infiltration in the right upper lobe. Electronically Signed: Johnny Gilman MD at 13:07 EDT Tel [phone], Service support [phone], CC: Enrike Jaimes DO; Sonam Sheth MD Chief Of Staff Doctor: Signed 20-Jun-2015 ELECTROCARDIOGRAM, COMPLETE (ECG) (47546) Result: [MEASUREMENTS ANALYSIS] Date of Test: 06/20/2015 10:36:19; Heart Rate: 61; MS Interval: 216; QRS: 100; QT Interval: 426; Corrected QT Interval (QTc): 427; P Wave [place]: 62; QRS Wave [place]: 8; T Wave [place]: 28; Blood Pressure: 160/62 [ECG DIAGNOSTIC STATEMENTS] Date of Test: 06/20/2015 10:36:19; Summary: Sinus Rhythm WITHIN NORMAL LIMITS 15-Jun-2015 Echocardiogram Complete Result: Comments: See Note; NOTES: [facility] Cardiovascular Services [address] [place] [address] Echo Complete 06/12/15 1110 MR#: [id number] Acct: [id number] Name: LUPE PHILLIPS Rep #: [id number] : 1945 70 From: Mike Cota MD Attending Dr: Mike Cota MD Status: PRE CLI Ordering Dr: Mike Cota MD Date: 06/12/15 Location: [facility] Sex: F C Admit benjamin: Reason For Study: CAD/ASHD Procedure This was a 2D Doppler, Color Flow transthoracic echocardiogram. The exam was of adequate technical quality. Exam performed in department. PT did NOT take am HTN med, will take as soon as she gets home and monitor her BP this afternoon. Instructed to call [facility] if systolic BP does not [...] Dictated: 06/12/15 1110 Date Transcribed: 06/15/15 1226 Chief Of Staff Doctor: Signed 13-Jun-2015 History and Physical Exam Result: Comments: See Note; NOTES: [facility] Medical Records Department [address] [place] [address] History and Physical 06/13/15 1251 MR#: [id number] Acct: [id number] Name: LUPE LOPEZ Rep #: [id number] : 1945 70 From: Jess Sparrow MD [...] surgery. Psychiatric History: No pertinent psych hx ACOUSTICAL CARPENTER History: No pertinent ACOUSTICAL CARPENTER history Lives: Spouse/ Significant Other Smoking Status: [...] % (Auto) 51.1 Lymph % (Auto) 33.9 Sharkey % (Auto) 11.5 H Eos % (Auto) [...] View (Portable) Result: Comments: See Note; NOTES: [facility] Imaging Services [address] [place] [address] Verdana 4d Chest 1 View (Portable) MR#: [id number] Acct: [id number] Name: LUPE MCCARTHY Rep #: [id number] : 1945 F 70 From: Vu Hankins MD PCP: Enrike Jaimes DO Status: REG ER Study: Chest 1 View (Portable) Date of Exam: 06/13/15 Exam# [id number] Ordering Dr: Jessie Ogden MD STUDY: X-RAY [...] MD at 10:55 EDT , Service support [phone], RAD/Chest 1 View (Port able) IMPRESSION: Cardiomegaly with mild hyperexpansion. No acute or active cardiopulmonary disease. Electronically Signed: Vu Hankins MD at 10:55 EDT , Service sup port [phone], CC: Enrike Jaimes DO; Kane Ogden MD Chief Of Staff Doctor: Signed 13-Jun-2015 CTA Chest W/WO Contrast Result: Comments: See Note; NOTES: [facility] Imaging Services [address] [place] [address] Verdana 4d CTA Chest W/WO Contrast MR#: [id number] Acct: [id number] Name: LUPE MCCARTHY Rep #: [id number] : 1945 F 70 From: Johnny Gilman MD PCP: Enrike Jaimes DO Status: REG ER Study: CTA Chest W/WO Contrast Date of Exam: 06/13/15 Exam# [id number] Ordering Dr: Kane Lujan MD STUDY: CTA [...] Johnny Gilman MD at 12:08 EDT Tel [phone], Service support [phone], N.B. : The above information has been verbally conveyed by Johnny Gilman MD to [facility] ED RN, on 06/13/2015 12:08:48 (ET). CC: Favio Jaimes DO; Kane Ogden MD Chief Of Staff Doctor: Signed 13-Jun-2015 EKG (32768) Comments: nsr no acute chg Result: [MEASUREMENTS ANALYSIS] Date of Test: 06/13/2015 09:41:07; Heart Rate: 71; MS Interval: 194; QRS: 96; QT Interval: 420; Corrected QT Interval (QTc): 439; P Wave [place]: 68; QRS Wave [place]: 2; T Wave [place]: 29; Blood Pressure: 140/70 [ECG DIAGNOSTIC STATEMENTS] Date of Test: 06/13/2015 09:41:07; Summary: Sinus Rhythm WITHIN NORMAL LIMITS 23-May-2015 Carotid Duplex Ultrasound Result: Comments: See Note; NOTES: [facility] Cardiovascular Services [address] [place] [address] Carotid Duplex Ultrasound 05/23/15813 MR#: [id number] Acct: [id number] Name: LUPE LOPEZ Rep #: [id number] : 1945 70 From: Brice Murphy MD [...] the left vertebral artery. Procedure Carotid Duplex 03056. The exam was diagnostic. Exam performed in [...] Date Dictated: 05/23/1514 Date Transcribed: 05/23/15 233 Chief Of Staff Doctor: Signed 23-May-2015 Nuclear Stress Test - Treadmil Result: Comments: See Note; NOTES: [facility] Imaging Services [address] [place] [address] Verda 4d Nuclear Stress Test - Treadmil MR#: [id number] Acct: [id number] N rule: LUPE LOPEZ Rep #: [id number] : 1945 70 From: Mike Cota MD [...] LVEF of 72%. Mike Cota MD T: [facility] JOB: [id number] 05/23/152009 <Electronically signed by Mike Cota MD> Date Mike Cota MD CC: Enrike Jaimes DO Date Dictated: 05/23/15 1023 Date Transcribed: 05/23/15 1023 Chief Of Staff Doctor: Signed 20-May-2015 ELECTROCARDIOGRAM, COMPLETE (ECG) (99587) Comments: ekg showed normal sinus rhythym, normal axis, no acute st/t wave changes Result: [MEASUREMENTS ANALYSIS] Date of Test: 05/20/2015 11:04:03; Heart Rate: 63; MS Interval: 210; QRS: 99; QT Interval: 408; Corrected QT Interval (QTc): 413; P Wave [place]: 56; QRS Wave [place]: 10; T Wave [place]: 27; Blood Pressure: 152/76 [ECG DIAGNOSTIC STATEMENTS] Date of Test: 05/20/2015 11:04:03; Summary: Sinus Rhythm WITHIN NORMAL LIMITS 11-Apr-2015 12 Lead Electrocardiogram Result: Comments: See Note; NOTES: [facility] Cardiovascular Services [address] [place] [address] 12 Lead EKG 03/28/15 1548 MR#: [id number] Acct: [id number] Name: LUPE BOOGIE Rep #: [id number] : 1945 70 From: Mike Cota MD [...] Normal ECG Confirmed by CIPRIANO JC, MIKE ([id number]), material expeditor TERRI DIOP ([id number]) on 04/11/2015 2:14:19 PM Referred By: CHRISTOPHER Confirmed By:MIKE COTA MD 04/11/15 141 4 Date Mike Cota MD CC: Enrike Jaimes DO Date Dictated: 03/28/15 1548 Date Transcribed: 03/28/15 1548 Chief Of Staff Doctor: Signed 25-Dec-2014 Pulmonary Function Report Comp Result: Comments: See Note; NOTES: [facility] Pulmonary Services/Neurology [address] [place] [address] Pulmonary Function Test (Comp) MR#: [id number] Acct: [id number] Name: LUPE PHILLIPS Rep #: [id number] : 1945 69 From: Merlin Pop MD Referring Dr: Merlin Pop MD Status: REG CLI Ordering Dr: Merlin Pop MD Date: 11/27/14 Location: [facility] Sex: F C DATE OF SERVICE: [...] and lung volumes. MERLIN POP MD T: [facility] JOB: [id number] . Date: 11/28/14 Tech.: Temp: PBar: Height(in.): Weight(lbs.): Diagnosis: Medication: : Dyspnea Rest: Dyspnea Exercise: Cough: Productive (cc): Persistent: Smoker: How Long (pk/yrs): Stopped (yrs): Cigarettes: Cigars: 1 1438 <Electronically signed by Merlin Pop MD> Date Merlin Pop MD CC: Merlin Pop MD; Enrike Jaimes DO Date Dictated: 11/03 Date Transcribed: 11/27/141628 Chief Of Staff Doctor: Signed 23-Oct-2014 PT Discharge Summary Result: Comments: See Note; NOTES: [facility] [address] [place] [address]. [address] [place] [address] Fax REHABILITATION SERVICES DISCHARGE SUMMARY MR#: [id number] Acct: [id number] Name: LUPE LOPEZ Rep #: [id number] : 1945 69 From: Barbie Mcguire Referring [...] Sneakers. Barbie Mcguire DPT T: [facility] JOB: [id number] <Electronically signed by Monika Mcguire > 10/23/14 1021 CC: Signed 23-Oct-2014 Chest WITH Contrast Result: Comments: See Note; NOTES: [facility] Imaging Services [address] [place] [address] CAT Scan Report MR#: [id number] Acct: [id number] Name: LUPE LOPEZ Rep #: [id number] : 1945 F 69 From: Johnny Gilman MD PCP: Enrike Jaimes DO Status: REG CLI Study: Chest WITH Contrast Date of Exam: 10/23/14 Exam# [id number] Ordering Dr: Merlin Pop MD STUDY: CT [...] Johnny Gilman MD at 14:28 EDT Tel [phone], Service support [phone], Fax CC: Merlin Pop MD; Enrike Jaimes DO Chief Of Staff Doctor: Signed 02-Oct-2014 Bilat Screvelia Digital AND CAD Result: Comments: See Note; NOTES: [facility] Imaging Services [address] [place] [address] Breast Imaging Report MR#: [id number] Acct: [id number] Name: LUPE LOPEZ Rep #: [id number] : 1945 F 69 From: Johnny Gilman MD PCP: Enrike Jaimes DO Status: REG CLI Study: Bilat Scrn Digital AND CAD Date of Exam: 10/02/14 Exam# [id number] Ordering Dr: Enrike Jaimes DO MAMMOGRAPHY - [...] be sent to the patient by [facility] within 30 days. Approximately 10% of breast cancers are not detected by mammography. A normal mammogram should not delay biopsy of a clinically suspicious abnormality. Electronically Signed: Isma Gilman MD at 12:54 EDT Tel [phone], Service support [phone], CC: Enrike Jaimes DO Chief Of Staff Doctor: Signed 27-Sep-2014 Inital Evaluation - PT Result: Comments: See Note; NOTES: [facility]. [address] [place] [address] Fax REHABILITATION SERVICES INITIAL EVALUATION MR#: [id number] Acct: [id number] Name: LUPE LOPEZ Rep #: [id number] : 1945 69 From: Barbie Mcguire Referring [...] no stent that she does see a senior technical editor. MEDICATIONS: The patient has a list if [...] is fair. The patient will benefit from [facility] physical therapy to solve the following problems [...] pain. Barbie Mcguire DPT T: [facility] JOB: [id number] <Electronically signed by Barbie Mcguire > 09/27/14 0823 CC: Signed For Medicare only, by signing this I certify the plan of care. Physicians Signature Date 14-Jun-2014 Knee 4 or More Views Result: Comments: See Note; NOTES: [facility] Imaging Services [address] [place] [address] Radiology Report MR#: [id number] Acct: [id number] Name: LUPE LOPEZ Rep #: [id number] : 1945 F 69 From: Frank Sewell MD PCP: Enrike Jaimes DO Status: REG CLI Study: Knee 4 or More Views Date of Exam: 06/14/14 Exam# [id number] Ordering Dr: Enrike Jaimes DO STUDY: X-R [...] at 7:48 EDT Tel , Service support [phone], CC: Enrike Jaimes DO Chief Of Staff Doctor: Signed 14-Jun-2014 Knee 4 or More Views Result: Comments: See Note; NOTES: [facility] Imaging Services [address] [place] [address] Radiology Report MR#: [id number] Acct: [id number] Name: LUPE LOPEZ Rep #: [id number] : 1945 F 69 From: Frank Sewell MD PCP: Enrike Jaimes DO Status: REG CLI Study: Knee 4 or More Views Date of Exam: 06/14/14 Exam# [id number] Ordering Dr: Enrike Jaimes DO STUDY: X-R [...] at 7:50 EDT Tel , Service support [phone], RAD/Knee 4 or More Views IMPRESSION: Mild relative narrowing of the medial co mpartment joint space left knee. Generalized osteopenia. Electronically Signed: Ming Sewell MD at 7:50 EDT Tel , Service support [phone], CC: Enrike Jaimes DO Chief Of Staff Doctor: Signed 16-May-2014 Carotid Duplex Ultrasound Result: Comments: See Note; NOTES: [facility] Cardiovascular Services [address] [place] [address] 05/03/14 1014 MR#: [id number] Acct: [id number] Name: LUPE LOPEZ Rep #: [id number] [...] left ve rtebral artery. Procedure Carotid Duplex 86066. The exam was diagnostic. Exam performed in department. Interpretation Summary Mild (<50%) stenosis right extracranial internal carotid. Mild (<50%) stenosis left extracranial internal carotid. Flow within the vertebral arteries is antegrade bilaterally. ___ Ordering Physician: Enrike Jaimes D.O. Performed By: Rufino Ashley, RVT 05/03/14 1107 Date ____ Brice Murphy MD CC: Enrike Jaimes DO Date Dictated: 05/03/14 1014 Date Transcribed: 05/03/14 1107 Chief Of Staff Doctor: Signed 23-Apr-2014 [facility] (06931) Comments: good effort and curve normal Result: 17-Apr-2014 Brain/Head W/WO Contrast Result: Comments: See Note; NOTES: [facility] Imaging Services [address] [place] [address] CAT Scan Report MR#: [id number] Acct: [id number] Name: LUPE LOPEZ Rep #: [id number] : 1945 F 69 From: Johnny Gilman MD PCP: Enrike Jaimes DO Status: REG CLI Study: Brain/Head W/WO Contrast Date of Exam: 04/17/14 Exam# [id number] Ordering Dr: Enrike Jaimes DO STUDY: CT [...] Johnny Gilman MD at 15:01 EST Tel [phone], Service support [phone], CC: Enrike Jaimes DO Chief Of Staff Doctor: Signed 17-Apr-2014 CTA Chest W/WO Contrast Result: Comments: See Note; NOTES: [facility] Imaging Services [address] [place] [address] CAT Scan Report MR#: [id number] Acct: [id number] Name: LUPE LOPEZ Rep #: [id number] : 1945 F 69 From: Johnny Gilman MD PCP: Enrike Jaimes DO Status: REG CLI Study: CTA Chest W/WO Contrast Date of Exam: 04/17/14 Exam# [id number] Ordering Dr: Enrike Jaimes DO STUDY: C [...] followup examination is recommended. Electronically Signed: Johnny Gilamn MD at 14:38 EST Tel [phone], Service support [phone], CC: Enrike Jaimes DO Chief Of Staff Doctor: Signed Immunization Name Dates Details Influenza vaccine, split, 3yrs &>, IM (FLUZONE) on: Nov-2017 Influenza, preserv. 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 [place], [place], [address] Absolute Lymph 1.48 {X10_3/ul} (Normal) Range: 0.83-4.51 [...] Range: 4.4-11.0 :15 Comprehensive Metabolic Profil Comments: [facility] [address] [place], [place], [address] GAP 7 (Normal) Range: 5-15 CO2 29.0 [...] Comments: Please note revised GLUCOSE reference range uykwkhkzs48/02/2018. 36-Plx-52633:15 Hemoglobin A1c Comments: [facility] [address] [place], [place], [address] HGB A1C 5.5 % (Normal) Range: 4.2-6.3 :15 Lipid Profile Comments: [facility] [address] [place], [place], [address] VLDL 16 mg/dL (Normal) Range: 5-40 LDL [...] 200-240 mg/dL Borderline >240 mg/dL High Risk 06-Aov-78725:15 Thyroid Stim Hormone (TSH) Comments: [facility] [address] [place], [place], [address] TSH 4.30 {uIU/mL} (Abnormal) Range: 0.358-3.74 4-Ylu-163871:25 Stool Occult Blood iFOB Comments: [facility] [address] [place], [place], [address] STOB See Note (Normal) Comments: Reason for Laboratory Test . STOB iFOBOccult Blood Negative 64-Hda-494974:07 CBC W/Diff, Automated Comments: Reason for Laboratory Test .[facility] [address] [place], [place], [address] Absolute Lymph 1.23 {X10_3/ul} (Normal) Range: 0.83-4.51 [...] 4.2-5.4 WBC 3.4 K/mm3 (Abnormal) Range: 4.4-11.0 62-Cgl-884757:07 Comprehensive Metabolic Profil Comments: Reason for Laboratory Test .[facility] [address] [place], [place], [address] GAP 7 (Normal) Range: 5-15 CO2 29.0 [...] Comments: Please note revised GLUCOSE reference range zsuopnidt50/02/2018. 28-Otw-426361:07 Ferritin Comments: Reason for Laboratory Test .[facility] [address] [place], [place], [address] FERRITIN 26 ng/mL (Normal) Range: 8-252 05-Chd-179377:07 Iron+Iron Binding Capacity Comments: Reason for Laboratory Test .[facility] [address] [place], [place], [address] IRON SATURATION 17.0 % (Normal) Range: 15.0-55.0 IRON 56 ug/dL (Normal) Range: 50-170 TIBC 329 ug/dL (Normal) Range: 250-450 01-Scy-678751:47 CBC W/Diff, Automated Comments: [facility] [address] [place], [place], [address] Absolute Lymph 1.23 {X10_3/ul} (Normal) Range: 0.83-4.51 [...] 4.2-5.4 WBC 4.8 K/mm3 (Normal) Range: 4.4-11.0 42-Ybb-189687:47 Comprehensive Metabolic Profil Comments: [facility] [address] [place], [address] GAP 9 (Normal) Range: 5-15 CO2 25.0 [...] Comments: Please note revised GLUCOSE reference range ysccbtbqe45/02/2018. 62-Dbv-779166:47 Hemoglobin A1c Comments: [facility] [address] [place], [address] HGB A1C 5.5 % (Normal) Range: 4.2-6.3 74-Vbd-529351:47 Lipid Profile Comments: [facility] [address] [place], [address] VLDL 18 mg/dL (Normal) Range: 5-40 LDL [...] 200-240 mg/dL Borderline >240 mg/dL High Risk 46-Oxd-208447:47 Thyroid Stim Hormone (TSH) Comments: [facility] [address]up[address] [place], [address] TSH 4.65 {uIU/mL} (Abnormal) Range: 0.358-3.74 71-Zui-402833:32 Thyroid Stim Hormone (TSH) Comments: [facility] [address]psut[address] [place], [place], [address] TSH 2.85 {uIU/mL} (Normal) Range: 0.358-3.74 98-Zki-80388:27 Microscopic Examination Comments: PATIENT WAS FASTINGPERFORMED BY: [facility] Opnohy7657 [facility] [id number] Bacteria Few (Normal) Mucus Threads Present (Normal) Cast Type Hyaline casts (Normal) Casts Present {/lpf} (Abnormal) Epithelial Cells (non renal) 0-10 {/hpf} (Normal) Range: 0 - 10 RBC 0-2 {/hpf} (Normal) Range: 0 - 2 WBC 0-5 {/hpf} (Normal) Range: 0 - 5 :49 CBC W/Diff, Automated Comments: Reason for Laboratory Test [facility] [address] [place], [place], [address] Absolute Lymph 1.48 {X10_3/ul} (Normal) Range: 0.83-4.51 [...] Metabolic Profil Comments: Reason for Laboratory Test [facility] [address] [place], [address] GAP 5 (Normal) Range: 5-15 [...] Comments: Please note revised GLUCOSE reference range kjcatyrvj13/02/2018. 20-Jul-20178:49 Ferritin Comments: Reason for [facility] [address]dhurimg[address] [place], [address] FERRITIN 29 ng/mL (Normal) Range: 8-252 20-Jul-20178:49 Iron Comments: Reason for Laboratory Test [facility] [address] [place], [address] IRON 55 ug/dL (Normal) Range: 50-170 :32 Lipid Profile Comments: [facility] [address] [place], [place], [address] VLDL 18 mg/dL (Normal) Range: 5-40 LDL [...] High Risk :32 Liver Profile Comments: [facility] [address] [place], [address] D BILI 0.09 mg/dL (Normal) Range: 0.00-0.30 T BILI 0.50 mg/dL (Normal) Range: 0.20-1.00 ALT 14 U/L (Normal) Range: 13-56 ALK P 55 U/L (Normal) Range: 45-117 AST 19 U/L (Normal) Range: 15-37 GLOB 3.0 g/dL (Normal) Range: 2.2-4.2 ALB 3.7 g/dL (Normal) Range: 3.2-5.0 T PROT 6.7 g/dL (Normal) Range: 6.4-8.2 :32 Thyroid Stim Hormone (TSH) Comments: [facility] [address] [place], [address] TSH 5.71 {uIU/mL} (Abnormal) Range: 0.358-3.74 :27 SED RATE ERYTHROCYTE (09878) Comments: PATIENT WAS FASTINGPERFORMED BY: [facility]CoAc[facility]Care [facility] SystemIsmoqn9051 [facility] [id number] Sedimentation Rate-Westergren 8 mm/h (Normal) Range: 0-40 :27 C-REACTIVE PROTEIN (68057) Comments: PATIENT WAS FASTINGPERFORMED BY: [facility]6370 [facility] [id number] C-Reactive Protein, Quant 0.6 mg/L (Normal) Range: 0.0-4.9 :27 FOLIC ACID SERUM (93313) Comments: PATIENT WAS FASTINGPERFORMED BY: [facility]6370 [facility] [id number] Folate (Folic Acid), Serum >20.0 ng/mL (Normal) Comments: A serum folate concentration of less than 3.1 ng/mL isconsidered to represent clinical deficiency. :27 VITAMIN B-12 (CYANOCOBALAMIN) Comments: PATIENT WAS FASTINGPERFORMED BY: [facility] TechnologiesM[facility]6370 [facility] [id number] (15532) Vitamin B12 681 pg/mL (Normal) Range: 232-1245 :27 TSH (THYROID STIMULATING Comments: PATIENT WAS FASTINGPERFORMED BY: [facility]6370 [facility] [id number] HORMONE) (93338) TSH 6.650 {uIU/mL} (Abnormal) Range: 0.450-4.500 :27 LIPID PANEL (73110) Comments: PATIENT WAS FASTINGPERFORMED BY: [facility]6370 [facility] [id number] LDL/HDL Ratio 1.4 {ratio} (Normal) Range: 0.0-3.2 [...] mg/dL (Normal) Range: 100-199 :27 HGB A1C (13192) Comments: PATIENT WAS FASTINGPERFORMED BY: [facility]6370 [facility] [id number] Hemoglobin A1c 5.6 % (Normal) Range: 4.8-5.6 Comments: . Pre-diabetes: 5.7 - 6.4 Diabetes: >6.4 Glycemic control for adults with diabetes: <7.0 :27 serum free light chains Comments: PATIENT WAS FASTINGPERFORMED BY: SurveyGizmoAcuteCare Health SystemSwtfwq5390 [facility] [id number] (04952) Lasara/Lambda Ratio,S 1.18 (Normal) Range: 0.26-1.65 Free Lambda Lt Chains,S 19.1 mg/L (Normal) Range: 5.7-26.3 Free Lasara Lt Chains,S 22.5 mg/L (Abnormal) Range: 3.3-19.4 :27 urine immunofixation (99165) Comments: PATIENT WAS FASTINGPERFORMED BY: [facility]6370 [facility] [id number] THEE Interpretation:U UPEIP (Normal) Comments: No monoclonality detected. :27 serum immunofixation (90969) Comments: PATIENT WAS FASTINGPERFORMED BY: [facility]6370 [facility] [id number] Immunoglobulin M, Qn, Serum 68 mg/dL (Normal) Range: 26-217 Immunoglobulin A, Qn, Serum 111 mg/dL (Normal) Range: 64-422 Immunoglobulin G, Qn, Serum 669 mg/dL (Abnormal) Range: 700-1600 Immunofixation Result, Serum UPEIP (Normal) Comments: No monoclonality detected. :27 URINALYSIS, W/ MICRO (61010) Comments: PATIENT WAS FASTINGPERFORMED BY: [facility]6370 [facility] [id number] Microscopic Examination See below: (Normal) Comments: Microscopic was indicated and was performed. Microscopic Examination MICRON (Normal) Comments: Microscopic follows if indicated. Nitrite, Urine Negative (Normal) Urobilinogen,Semi-Qn 0.2 mg/dL (Normal) Range: 0.2-1.0 Bilirubin Negative (Normal) Occult Blood Negative (Normal) Ketones Negative (Normal) Glucose Negative (Normal) Protein Negative (Normal) WBC Esterase Negative (Normal) Appearance Clear (Normal) Urine-Color Yellow (Normal) pH 6.0 (Normal) Range: 5.0-7.5 Specific Calvin 1.019 (Normal) Range: 1.005-1.030 30-Erf-28101:27 METABOLIC PANEL, COMPREHENSIVE Comments: PATIENT WAS FASTINGPERFORMED BY: [facility]6370 [facility] [id number] (50478) ALT (SGPT) 12 [iU]/L (Normal) Range: 0-32 [...] 8-27 Glucose 91 mg/dL (Normal) Range: 65-99 6-Gcr-072295:14 CBC W/Diff, Automated Comments: Reason for Laboratory Test .[facility] [address] [place], [place], [address] Absolute Lymph 0.91 {X10_3/ul} (Normal) Range: 0.83-4.51 [...] 4.2-5.4 WBC 5.1 K/mm3 (Normal) Range: 4.4-11.0 2-Qtq-656139:14 Comprehensive Metabolic Profil Comments: Reason for Laboratory Test .Is Patient Taking Vitamins or Folic Acid Supplements? [facility] [address] [place], [place], [address] GAP 7 (Normal) Range: 5-15 CO2 30.0 [...] 7-18 GLU 100 mg/dL (Normal) Range: 70-110 1-Lhv-610792:14 Ferritin Comments: Reason for Laboratory Test .Is Patient Taking Vitamins or Folic Acid Supplements? [facility] [address] [place], [place], [address] FERRITIN 42 ng/mL (Normal) Range: 8-252 8-Qkd-940941:14 Folates, (Folic Acid) Comments: Reason for Laboratory Test .Is Patient Taking Vitamins or Folic Acid Supplements? [facility] [address] [place], [address] FOLATES 82.80 ng/mL (Abnormal) Range: 3.1-55.4 Comments: Please note revised Folates reference range gxzqwoyru48/14/2017. 0-Nwh-279630:14 Iron+Iron Binding Capacity Comments: Reason for Laboratory Test .Is Patient Taking Vitamins or Folic Acid Supplements? [facility] [address] [place], [address] IRON SATURATION 10.7 % (Abnormal) Range: 15.0-55.0 IRON 36 ug/dL (Abnormal) Range: 50-170 TIBC 335 ug/dL (Normal) Range: 250-450 9-Cft-272728:14 Vitamin B12 > 2000 pg/mL (Abnormal) Comments: Reason for Laboratory Test .[facility] [address] [place], [address] Range: 211-911 64-Rya-653416:06 Stool Occult Blood iFOB Comments: [facility] [address] [place], [address] STOB See Note (Normal) Comments: Reason for Laboratory Test . STOB iFOBOccult Blood Negative 45-Xyu-28366:18 CBC W/Diff, Automated Comments: [facility] [address]jnpz[address] [place], [address] Absolute Lymph 1.31 {X10_3/ul} (Normal) Range: 0.83-4.51 [...] 4.2-5.4 WBC 3.4 K/mm3 (Abnormal) Range: 4.4-11.0 01-Lel-77584:18 Comprehensive Metabolic Profil Comments: Is Patient Taking Vitamins or Folic Acid Supplements? [facility] [address] [place], [address] GAP 7 (Normal) Range: 5-15 CO2 28.0 [...] or Folic Acid Supplements? [facility] [address]ovq[address] [place], [place], [address] FERRITIN 16 ng/mL (Normal) Range: 8-252 :18 Folates, (Folic Acid) Comments: Is Patient Taking Vitamins or Folic Acid Supplements? [facility] [address] [place], [place], [address] FOLATES 67.80 ng/mL (Abnormal) Range: 3.1-17.5 :18 Iron+Iron Binding Capacity Comments: Is Patient Taking Vitamins or Folic Acid Supplements? [facility] [address] [place], [place], [address] IRON SATURATION 11.2 % (Abnormal) Range: 15.0-55.0 IRON 41 ug/dL (Abnormal) Range: 50-170 TIBC 367 ug/dL (Normal) Range: 250-450 :18 Vitamin B12 1297 pg/mL (Abnormal) Comments: [facility] [address] [place], [place], [address] Range: 211-911 78-Ufu-535151:09 Urinalysis, Office (51251) UA - LEUKOCYTE ESTERASE Negative (Normal) UA - NITRITE Negative (Normal) URINE UROBILINGN DIPAK TIMED 2 mg/dL (Normal) UA - PROTEIN Negative mg/dL (Normal) UA - PH 6.0 (Normal) UA - BLOOD Hemolyzed Trace (Normal) UA - SPECIFIC GRAVITY 1.015 (Normal) UA - KETONES Negative mg/dL (Normal) UA - BILIRUBIN Negative (Normal) UA - GLUCOSE Negative (Normal) 26-Oyg-844902:09 Blood Glucose , Office (54419) Blood Glucose , Office 91 (Normal) 95-Jvs-999542:09 HgA1C , Office (92481) HgA1C , Office 5.3 % (Normal) Range: 4.6 - 7.1 :01 CBC W/Diff, Automated Comments: [facility] [address] [place], [place], [address] Absolute Lymph 0.96 {X10_3/ul} (Normal) Range: 0.83-4.51 [...] 4.4-11.0 :01 Comprehensive Metabolic Profil Comments: [facility] [address] [place], [place], [address] GAP 12 (Normal) Range: 5-15 CO2 24.0 [...] Range: 70-110 :01 Hemoglobin A1c Comments: [facility] [address]bp[address] [place], [place], [address] HGB A1C 5.3 % (Normal) Range: 4.2-6.3 :01 THEE + Protein Elect, Serum Comments: Is Patient F[facility]? [facility] (refer to report for specific site)refer to report for address and phone number NOTE: Comment (Normal) Comments: Protein electrophoresis scan will follow via computer,mail, or legal arbitrator delivery. THEE RESULT,S Comment (Normal) Comments: No monoclonality detected. A/G RATIO 1.2 (Normal) Range: 0.7-1.7 GLOBULIN, TOTAL 3.1 g/dL (Normal) Range: 2.2-3.9 M-SPIKE g/dL (Normal) Comments: Not Observed GAMMA GLOBULIN 0.7 g/dL (Normal) Range: 0.4-1.8 BETA GLOBULIN 0.9 g/dL (Normal) Range: 0.7-1.3 DCKVO-7-WDLC 1.0 g/dL (Normal) Range: 0.4-1.0 OEFAN-3-LIKK 0.5 g/dL (Abnormal) Range: 0.0-0.4 ALBUMIN 3.6 [...] Comment (Normal) Comments: No monoclonality detected.Performed at: [employer] [facility] [address] [id number] Director: Samm Galvan PhD, Phone: [phone] 13-Vof-53125:01 Lipid Profile Comments: [facility] [address] [facility]. [place], [place], [address] VLDL 19 mg/dL (Normal) Range: 5-40 LDL [...] :01 Thyroid Stim Hormone (TSH) Comments: [facility] [address] [place], [address] TSH 4.87 {uIU/mL} (Abnormal) Range: 0.358-3.74 :01 Vitamin D,25 Hydroxy Comments: [facility] [address] [place], [address] Vitamin D 25-OH 27.3 ng/mL (Normal) Comments: Vitamin D 25(OH) Status Range Deficiency <20 ng/mL (50nmol/L) Insuffciency 20 - 30 ng/mL (50 - 75 nmol/L) Sufficiency 30 - 100 ng/mL (75 - 250 nmol/L) Toxicity >100 ng/mL (>250 nmol/L) :54 CBC W/Diff, Automated Comments: [facility] [address]rcban[address] [place], [address] Absolute Lymph 1.70 {X10_3/ul} (Normal) Range: 0.83-4.51 [...] Serial specimen #1, #2, #3, or #4: [address] [place] [address] [address] [place], [address] GAP 8 (Normal) Range: 5-15 CO2 25.0 [...] Range: 70-110 :54 Hemoglobin A1c Comments: [facility] [address] [place], [address] HGB A1C 5.9 % (Normal) Range: 4.2-6.3 :54 Lipid Profile Comments: 'TROP' Serial specimen #1, #2, #3, or #4: [address] [place] [address] [place], [address] VLDL 31 mg/dL (Normal) Range: 5-40 [...] Serial specimen #1, #2, #3, or #4: [address] [place] [address] [address] [place], [address] TSH 4.73 {uIU/mL} (Abnormal) Range: 0.358-3.74 :54 Troponin-I Comments: 'TROP' Serial specimen #1, #2, #3, or #4: [address] [place] [address] [place], [address] TROPONIN-I < 0.02 ng/mL (Normal) Comments: TROPONIN-I EXPECTED VALUES <0.05 NEGATIVE 0.06 - 0.59 AT RISK OF [place] > OR = 0.60 SUGGEST [place] 83-Jwp-301362:51 CBC W/Diff, Auto - EPLAB Comments: Order Date: 01/01/16Order Info: [id number] - *CBC w/Diff - oncology ONLYComments: DRAW AND HOLD SERUM TUBEOrder Date: 01/01/16Order Info: [id number] - *CBC w/Diff - oncology ONLYComments: DRAW AND HOLD SERUM Only TUBEAt [facility] Outpatient [facility] Medical Oncologypatients receive CBC w/auto Differential ONLY. Physicianwill place an order for a manual differential or Pathologistreview at his discretion. [facility] OUTPATIENT [facility]. [address] [place] [address] [address] LOCATION ANALYST: JOSE KOHLI DO PH:[phone] Date: 01/01/16Order Info: [id number] - *MISC - Miscellaneous Lab Test #1Comments: Test(s) Ordered by Physician:[facility] [address] [place], [address] Absolute Lymph 1.39 {X10_3/uL} (Normal) Range: 0.83-4.51 [...] 4.2-5.4 WBC 4.7 K/mm3 (Normal) Range: 4.4-11.0 10-Pch-726311:51 Comprehensive Metabolic Comments: Order Date: 01/01/16Order Info: 0786-1 - *CMP Complete Metabolic PanelOrder Info: 3084-1 - *Uric Acid BloodOrder Info: 2500-7 - *TIBCOrder Info: 1598-4 - *IronOrder Info: 8916-4 - *FerritinComments: Ashlyn Martin son:Order Info: 2532-0 - *LDH -LDH (Lactate Dehydrogenase)Order Date: 01/01/16Order Info: [id number] - *MISC - Miscellaneous Lab Test #1Comments: Test(s) Ordered by Physician:FOLATESSerial Specimen #1, # 2 or #3? 1Is Patient Taking Vitamins or Folic Acid Supplements? [facility] [address] [place], [address] GAP 2 (Abnormal) Range: 5-15 CO2 29.0 [...] 7-18 GLU 89 mg/dL (Normal) Range: 70-110 80-Ghn-143041:51 Ferritin Comments: Order Date: 01/01/16Order Info: 0786-1 [...] or Folic Acid Supplements? [facility] [address] [place], [place], [address] FERRITIN 14 ng/mL (Normal) Range: 8-252 80-Azo-386760:51 Folates, (Folic Acid) Comments: Order Date: 01/01/16Order [...] or Folic Acid Supplements? [facility] [address] [place], [address] FOLATES 72.40 ng/mL (Abnormal) Range: 3.1-17.5 49-Ymv-939326:51 Iron Comments: Order Date: 01/01/16Order Info: 0786-1 [...] or Folic Acid Supplements? [facility] [address] [place], [place], [address] IRON 40 ug/dL (Abnormal) Range: 50-170 08-Ddw-755338:51 Iron Binding Capacity,Total Comments: Order Date: 01/01/16Order [...] or Folic Acid Supplements? [facility] [address] [place], [place], [address] TIBC 354 ug/dL (Normal) Range: 250-450 87-Qis-969932:51 LDH 199 U/L (Normal) Comments: Order Date: [...] or Folic Acid Supplements? [facility] [address] [place], [address] Range: 84-246 58-Rkf-205401:51 Uric Acid Comments: Order Date: 01/01/16Order Info: [...] or Folic Acid Supplements? [facility] [address] [place], [address] URIC 3.9 mg/dL (Normal) Range: 2.6-6.0 Comments: The drugs N-Acetylcysteine and Metamizole may falsely deressthis assay. 00-Nvu-724399:51 Vitamin B12 809 pg/mL (Normal) Comments: Order Date: 01/01/16Order Info: [id number] - *B-12Order Date: 01/01/16Order Info: 0453-1 - *MISC - Miscellaneous Lab Test #[facility] [address] [place], [address] Range: 211-911 17-Swj-152475:41 D-Dimer Quantitative (DVT/PE) Comments: Order Date: 06/15/16Order Info: [id number] - *DDIMQ - Fibrin Degrd Ultrsens Qual/SemiquanOrder Date: 06/15/16Order Info: 76922-2 - *DDIMQ - Fibrin Degrd Ultrsens Qual/[facility] [address] [place], [place], [address] D-DIMER QUANT 0.28 {FEU/ug/m} (Normal) Range: 0.27-0.49 Comments: NORMAL D-Dimer level (<0.50) indicates no DVT or PE. 4-Bpv-041941:15 Thyroxine (T4) Free, Direct, S Comments: PATIENT NOT FASTINGPERFORMED BY: CB [facility] Dgfqqf1885 [facility] [id number] T4,Free(Direct) 1.22 ng/dL Range: 0.82-1.77 (Normal) Triiodothyronine,Free,Seru 2.2 pg/mL (Normal) Comments: PATIENT NOT FASTINGPERFORMED BY: [facility] Tndoep6660 [facility] [id number] 4:15 m Range: 2.0-4.4 Written Authorization WAR (Normal) Comments: PATIENT NOT FASTINGPERFORMED BY: [facility] Fpxbiv9961 [facility] [id number] 4:15 Comments: Written Authorization Received.Authorization received from MAO BENITEZ [id number] by Jyothi Boland 2-Nef-686192:15 [facility] ([id number]) Comments: PATIENT NOT FASTINGPERFORMED BY: [facility] Amjqlg3821 [facility] [id number] Please note: SPRCS (Normal) Comments: Protein electrophoresis scan will follow via computer, mail, orcourier delivery. A/G Ratio 1.3 (Normal) Range: 0.7-1.7 Globulin, Total 2.8 g/dL (Normal) Range: 2.2-3.9 M-Abhinav Not Observed g/dL (Normal) Gamma Globulin 0.8 g/dL (Normal) Range: 0.4-1.8 Beta Globulin 0.8 g/dL (Normal) Range: 0.7-1.3 Gwcll-7-Lxaczuko 0.9 g/dL (Normal) Range: 0.4-1.0 Clpkf-6-Slzawcac 0.2 g/dL (Normal) Range: 0.0-0.4 Albumin 3.6 g/dL (Normal) Range: 2.9-4.4 Protein, Total, Serum 6.4 g/dL (Normal) Range: 6.0-8.5 6-Ijc-818438:15 UPEP (40289) Comments: PATIENT NOT FASTINGPERFORMED BY: SurveyGizmoAcuteCare Health SystemMrzwxv1974 [facility] [id number] Please note: SPRCS (Normal) Comments: Protein electrophoresis scan will follow via computer, mail, orcourier delivery. M-Abhinav, % Not Observed % (Normal) Gamma Globulin, U 39.7 % (Normal) Beta Globulin, U 30.6 % (Normal) Femja-7-Wycgvspm, U 6.8 % (Normal) Ebazf-7-Mfftmkck, U 2.0 % (Normal) Albumin, U 21.0 % (Normal) Protein,Total,Urine 4.5 mg/dL (Normal) 4-Vaw-257327:15 TSH (95907) Comments: PATIENT NOT FASTINGPERFORMED BY: LabEvolution RoboticsAcuteCare Health SystemLadtmj4293 [facility] [id number] TSH 7.400 {uIU/mL} (Abnormal) Range: 0.450-4.500 0-Xud-296750:15 CBC WITH MANUAL DIFF (10862) Comments: PATIENT NOT FASTINGPERFORMED BY: Strong Arm TechnologiesMckenzie Memorial Hospital6370 [facility] [id number] Immature Grans (Abs) 0.0 {x10E3/uL} (Normal) Range: [...] 3.77-5.28 WBC 4.5 {x10E3/uL} (Normal) Range: 3.4-10.8 2-Kcp-665354:15 RETICULOCYTE COUNT (62128) Comments: PATIENT NOT FASTINGPERFORMED BY: SurveyGizmoMesilla Valley HospitalLiyuuc6534 [facility] [id number] Reticulocyte Count 1.0 % (Normal) Range: 0.6-2.6 7-Xbu-290650:15 LDH (LD) (LACTATE DEHYDROGENASE) Comments: PATIENT NOT FASTINGPERFORMED BY: SurveyGizmoAcuteCare Health SystemXbdeht1285 [facility] [id number] (05387) LDH 185 [iU]/L (Normal) Range: 119-226 3-Kox-168062:15 Iron Binding Capacity (TIBC) Comments: PATIENT NOT FASTINGPERFORMED BY: SurveyGizmoAcuteCare Health SystemVdzhnl9710 [facility] [id number] (20092) Iron Saturation 16 % (Normal) Range: 15-55 Iron, Serum 55 ug/dL (Normal) Range: 27-139 UIBC 281 ug/dL (Normal) Range: 118-369 Iron Bind.Cap.(TIBC) 336 ug/dL (Normal) Range: 250-450 0-Xtr-632878:15 Vitamin B-12 (cyanocobalamin) Comments: PATIENT NOT FASTINGPERFORMED BY: SurveyGizmoAcuteCare Health SystemSrnfva8580 [facility] [id number] (96707) Vitamin B12 979 pg/mL (Abnormal) Range: 211-946 5-Dpl-591754:15 Folic Acid Serum (93116) Comments: PATIENT NOT FASTINGPERFORMED BY: LabMckenzie Memorial Hospital6370 [facility] [id number] Folate (Folic Acid), Serum >20.0 ng/mL (Normal) Comments: A serum folate concentration of less than 3.1 ng/mL isconsidered to represent clinical deficiency. 8-Ane-069035:15 Ferritin (10373) Comments: PATIENT NOT FASTINGPERFORMED BY: LabCoAcuteCare Health SystemDkkmap1208 [facility] [id number] Ferritin, Serum 30 ng/mL (Normal) Range: 15-150 90-Aoq-582985:05 CBC W/Diff, Automated Comments: [facility] [address] [place], [address] Absolute Lymph 1.49 {X10_3/ul} (Normal) Range: 0.83-4.51 [...] 4.2-5.4 WBC 4.6 K/mm3 (Normal) Range: 4.4-11.0 61-Whm-233073:05 Comprehensive Metabolic Profil Comments: [facility] [address] [place], [place], [address] GAP 8 (Normal) Range: 5-15 CO2 28.0 [...] 7-18 GLU 86 mg/dL (Normal) Range: 70-110 83-Gpk-557995:05 Hemoglobin A1c Comments: [facility] [address] [place], [address] HGB A1C 5.2 % (Normal) Range: 4.2-6.3 27-Qoo-949067:05 Lipid Profile Comments: [facility] [address] [place], [address] VLDL 22 mg/dL (Normal) Range: 5-40 [...] 200-240 mg/dL Borderline >240 mg/dL High Risk [id number] Microalb:Creat Ratio,Random UR Comments: [facility] [id number] [place], [address] MALB:CREAT 5.0 {mg/g_CRE} (Normal) MICROALBUMIN,UR 7.2 mg/L (Normal) UR CREAT 144.00 mg/dL (Normal) [id number]:05 Vitamin D,25 Hydroxy Comments: [facility] [id number] [place], [address] Vitamin D 25-OH 40.3 ng/mL (Normal) Comments: Vitamin D 25(OH) Status Range Deficiency <20 ng/mL (50nmol/L) Insuffciency 20 - 30 ng/mL (50 - 75 nmol/L) Sufficiency 30 - 100 ng/mL (75 - 250 nmol/L) Toxicity >100 ng/mL (>250 nmol/L) 68-Cgq-47112:27 CBC with auto diff (67834) Comments: PATIENT WAS FASTINGPERFORMED BY: [facility] SystemCivhwk4544 [facility] [id number] Immature Grans (Abs) 0.0 {x10E3/uL} (Normal) Range: [...] 3.77-5.28 WBC 3.3 {x10E3/uL} (Abnormal) Range: 3.4-10.8 64-Wts-858931:35 MAGNESIUM (79368) Comments: PATIENT NOT FASTINGPERFORMED BY: [facility] Tnxajl5856 [facility] [id number] Magnesium, Serum 1.8 mg/dL (Normal) Range: 1.6-2.3 :35 POTASSIUM SERUM (67592) Comments: PATIENT NOT FASTINGPERFORMED BY: [facility] Fjxbdw8332 [facility] [id number] Potassium, Serum 4.5 mmol/L (Normal) Range: 3.5-5.2 :00 CBC W/Diff, Automated Comments: [facility] [address] [place], [address] Absolute Lymph 0.91 {X10_3/ul} (Normal) [...] Range: 4.4-11.0 :00 Comprehensive Metabolic Profil Comments: [facility] Ntkwtallfu[address] [place], [place], [address] GAP 8 (Normal) Range: 5-15 CO2 31.0 [...] 7-18 GLU 75 mg/dL (Normal) Range: 70-110 86-Nxl-30221:00 Erythrocyte Sed Rate Comments: [facility] [address] [place], [place], [address] SED RATE 21 mm/h (Normal) Range: 0-30 7-Itv-072533:37 CBC W/Diff, Automated Comments: [facility] [address] [place], [place], [address] Absolute Lymph 1.96 {X10_3/ul} (Normal) Range: 0.83-4.51 [...] 4.4-11.0 :37 Thyroid Stim Hormone (TSH) Comments: [address] [place], [address] TSH 4.43 {uIU/mL} (Abnormal) Range: 0.358-3.74 :37 Vitamin B12 969 pg/mL (Abnormal) Comments: [address] [place], [address] Range: 211-911 29-Jan-20160:00 CBC W/ Manual Differential Comments: [address] [place], [address] RED CELL MORPH NORM C+C [...] NIs Patient on Heparin? [facility] Qpccexueyu7791 [place], [place], [address] GAP 7 (Normal) Range: 5-15 CO2 30.0 [...] NIs Patient on Heparin? [facility] [address] [place], [place], [address] FREE T3 2.1 pg/mL (Abnormal) Range: 2.18-3.98 :00 T4 Free Direct Comments: ADD ON TSHHas Patient had X-rays with Contrast this admission? NIs Patient on Heparin? [facility] [address] [place], [address] T4 FREE DIRECT 1.30 ng/dL (Normal) Range: 0.76-1.46 29-Jan-20160:00 Thyroid Peroxidase AB Comments: [facility] (refer to report for specific site)refer to report for address and phone number TPO AB 6676 6 {IU/mL} (Normal) Range: 0-34 Comments: Performed at: [facility] [address] [id number] Director: Samm Galvan PhD, Phone: [phone] 29-Jan-20160:00 Thyroid Stim Hormone (TSH) Comments: ADD ON TSHHas Patient had X-rays with Contrast this admission? NIs Patient on Heparin? [facility] [address] [place], [address] TSH 5.27 {uIU/mL} (Abnormal) Range: 0.358-3.74 51-Ltq-511151:38 CBC W/Diff, Auto - EPLAB Comments: At [facility] Outpatient [facility] [place] Medical Oncologypatients receive CBC w/auto Differential ONLY. Physicianwill place an order for a manual differential or Pathologistreview at his discretion. [facility] OUT[facility]IENT [facility]. [address] [place] [address] [address] LOCATION ANALYST: JOSE KOHLI DO PH:[phone] Memorial Hospital [address]xfmub[address] [place], [place], [address] Absolute Lymph 1.55 {X10_3/uL} (Normal) Range: 0.83-4.51 [...] 4.2-5.4 WBC 5.4 K/mm3 (Normal) Range: 4.4-11.0 91-Ukh-987947:19 Pathology Report Comments: PERFORMED BY: [facility] [place] Cyto Letug04161 [facility] [id number] BY: [facility] Dermatopathology Otsgvfv[address] [id number] Information: [id number] See MATER Comments: Material submitted: .PUNCH BIOPSY [...] SPECIMEN IS SUBMITTEDIN CASSETTE(S) A./CORCOR/CORPathologist provided ICD-10:D04.62CPT .298330 35-Erl-122686:15 HgA1C , Office (13250) HgA1C , Office 5.7 % (Normal) Range: 4.6 - 7.1 :13 CBC W/Diff, Automated Comments: [facility] [address] [place], [place], [address] Absolute Lymph 1.90 {X10_3/ul} (Normal) Range: 0.83-4.51 [...] 4.2-5.4 WBC 4.5 K/mm3 (Normal) Range: 4.4-11.0 59-Rra-866391:13 Comprehensive Metabolic Profil Comments: [facility] Qleuecmiwl[address] [place], [place], [address] GAP 6 (Normal) Range: 5-15 CO2 30.0 [...] 7-18 GLU 89 mg/dL (Normal) Range: 70-110 18-Gol-486037:13 CRP Comments: [facility] [address] [place], [place], [address] C-REACTIVE PROT < 2.90 mg/L (Normal) Range: 0.0-3.0 Comments: C-Reactive Protein (CRP) provides useful information for thediagnosis, therapy and monitoring of inflammatory processesand associated diseases. For the evaluation of Relative Riskfor Cardiovascular Dise ase, a High Sensitivity CRP (HSCRP)should be ordered. 33-Tjm-377844:13 Erythrocyte Sed Rate Comments: [facility] [address] [place], [place], [address] SED RATE 13 mm/h (Normal) Range: 0-30 96-Ozv-054719:13 Lipid Profile Comments: [facility] [address] [place], [address] VLDL 32 mg/dL (Normal) Range: [...] 200-240 mg/dL Borderline >240 mg/dL High Risk 57-Oas-468605:13 Rheumatoid Factor Comments: [facility] [address] [place], [place], [address] RHEUMATOID FAC < 10.0 {IU/mL} (Normal) 68-Ruz-076434:13 Thyroid Stim Hormone (TSH) Comments: [facility] [address] [place], [address] TSH 4.62 {uIU/mL} (Abnormal) Range: 0.358-3.74 :54 Lipid Profile Comments: ORDERED: CBCD, CMP, LDH, URIC, XTRADR.FAST ORDERED: LIPID, CMP, VITD, CBCDWAdena Health System [address]gjcjev[address] [place], [address] VLDL 20 mg/dL (Normal) Range: 5-40 [...] Risk :54 Vitamin D,25 Hydroxy Comments: [facility] [address]zw[address] [place], [address] Vitamin D 25-OH 43.8 ng/mL (Normal) Comments: Vitamin D 25(OH) Status Range Deficiency <20 ng/mL (50nmol/L) Insuffciency 20 - 30 ng/mL (50 - 75 nmol/L) Sufficiency 30 - 100 ng/mL (75 - 250 nmol/L) Toxicity >100 ng/mL (>250 nmol/L) :53 CBC W/Diff, Automated Comments: [facility] [address] [place], [address] Absolute Lymph [...] 4.4-11.0 :53 Comprehensive Metabolic Profil Comments: [facility] [address] [place], [place], [address] GAP 7 (Normal) Range: 5-15 CO2 32.0 [...] :53 LDH 182 U/L (Normal) Comments: [facility] [address]ldt[address] [place], [place], [address] Range: 84-246 :53 Uric Acid Comments: [facility] [address]oscz[address] [place], [place], [address] URIC 4.4 mg/dL (Normal) Range: 2.6-6.0 94-Qsd-775298:49 CBC W/Diff, Auto - EPLAB Comments: At [facility] Outpatient [facility] Medical Oncologypatients receive CBC w/auto Differential ONLY. Physicianwill place an order for a manual differential or Pathologistreview at his discretion. [facility]. [address] [place] [address] [address] LOCATION ANALYST: JOSE KOHLI DO PH:[phone] Memorial Hospital [address]wquaixwt[address] [place], [place], [address] Absolute Lymph 1.40 {X10_3/uL} (Normal) Range: 0.83-4.51 [...] 4.2-5.4 WBC 4.0 K/mm3 (Abnormal) Range: 4.4-11.0 38- :43 CBC W/Diff, Automated Comments: [facility] [address] [place], [place], [address] Absolute Lymph 1.46 {X10_3/ul} (Normal) Range: 0.83-4.51 [...] Serial specimen #1, #2, #3, or #4: [facility] [address] [place], [address] C-REACTIVE PROT < 2.90 mg/L (Normal) Range: 0.0-3.0 Comments: C-Reactive Protein (CRP) provides useful information for thediagnosis, therapy and monitoring of inflammatory processesand associated diseases. For the evaluation of Relative Riskfor Cardiovascular Dise ase, a High Sensitivity CRP (HSCRP)should be ordered. :43 CRP Comments: 'TROP' Serial specimen #1, #2, #3, or #4: [facility] [address] [place], [address] C-REACTIVE PROT < 2.90 mg/L (Normal) Range: 0.0-3.0 Comments: C-Reactive Protein (CRP) provides useful information for thediagnosis, therapy and monitoring of inflammatory processesand associated diseases. For the evaluation of Relative Riskfor Cardiovascular Dise ase, a High Sensitivity CRP (HSCRP)should be ordered. :43 Erythrocyte Sed Rate Comments: [facility] [address] [place], [place], [address] SED RATE 9 mm/h (Normal) Range: 0-30 :43 ASSAY, TROPONIN, QUANTITATIVE Comments: stat; 'TROP' Serial specimen #1, #2, #3, or #4: [address] [place], [place], [address] (aka Troponin I) (12218) TROPONIN-I < 0.02 ng/mL (Normal) Comments: TROPONIN-I EXPECTED VALUES <0.05 NEGATIVE 0.06 - 0.59 AT RISK OF AK > OR = 0.60 SUGGEST AK 83-Opv-134791:15 Basic Metabolic Profile (BMP) Comments: PLEASE REDRAW PREVIOUS SPECIMENS MISLABELED'TROP' Serial specimen #1, #2, #3, or #4: 1'CKMB' Serial Specimen #1, #2 or #3? [facility] [address]rhpdahirt[address] [place], [address] GAP 2 (Abnormal) Range: 5-15 [...] 7-18 GLU 103 mg/dL (Normal) Range: 70-110 87-Sgt-669805:15 CBC W/Diff, Automated Comments: [facility] [address] [place], [address] Absolute Lymph 1.99 {X10_3/ul} (Normal) [...] 4.2-5.4 WBC 5.8 K/mm3 (Normal) Range: 4.4-11.0 81-Kqz-490326:15 CK-MB Quantitative and Index Comments: PLEASE REDRAW PREVIOUS SPECIMENS MISLABELED'TROP' Serial specimen #1, #2, #3, or #4: 1'CKMB' Serial Specimen #1, #2 or #3? 1[facility] Zopbejfqpk2512 [facility]. [place], [place], [address] CKRI 0.7 % (Normal) Range: 0.0-1.4 Comments: RELATIVE INDEX >1.5% IS PRESUMPTIVELY POSITIVE CPKMB 0.6 ng/mL (Normal) Range: 0.0-5.0 Comments: CK-MB and RI Interpretation MB Relative Index Non-AMI <or= 5 NA Indeterminate > 5 <or= 4 AMI > 5 > 4 CPK TOTAL 82 U/L (Normal) Range: 26-192 69-Cui-346466:15 Partial Thromboplast Time Comments: [facility] [address] [place], [place], [address] PTT 48.2 s (Abnormal) Range: 24.1-36.2 92-Ijz-129836:15 Prothrombin Time w/INR Comments: [facility] Ctuhntvwxy[address] [place], [place], [address] INR 2.3 (Normal) PROTIME 25.3 s (Abnormal) Range: 11.7-14.9 34-Xqc-729193:15 Troponin-I Comments: PLEASE REDRAW PREVIOUS SPECIMENS MISLABELED'TROP' Serial specimen #1, #2, #3, or #4: 1'CKMB' Serial Specimen #1, #2 or #3? 1[facility] [address]dbvmqkg6[address] [place], [place], [address] TROPONIN-I < 0.02 ng/mL (Normal) Comments: TROPONIN-I EXPECTED VALUES <0.05 NEGATIVE 0.06 - 0.59 AT RISK OF AK > OR = 0.60 SUGGEST AK 27-Mzp-702533:25 Basic Metabolic Profile (BMP) Comments: Serial Specimen #1, #2 or #3? 1'TROP' Serial specimen #1, #2, #3, or #4: 1[facility] [address]oplpgrcni[address] [place], [place], [address] GAP 10 (Normal) Range: 5-15 CO2 26.0 [...] 7-18 GLU 104 mg/dL (Normal) Range: 70-110 47-Qlz-001709:25 BNP,B-Type NATRIURETIC PEPTIDE Comments: [facility] [address] [place], [place], [address] B-TYPE STEFAN PEP 94.1 pg/mL (Normal) Range: 0-100 45-Rfh-516456:25 CBC W/Diff, Automated Comments: [facility] [address] [place], [place], [address] Absolute Lymph 2.03 {X10_3/ul} (Normal) Range: 0.83-4.51 [...] 4.2-5.4 WBC 6.0 K/mm3 (Normal) Range: 4.4-11.0 85-Lmv-129752:25 CK-MB Quantitative and Index Comments: Serial Specimen #1, #2 or #3? 1'TROP' Serial specimen #1, #2, #3, or #4: [address] [place] [address] [address] [facility] [place], [address] CKRI Test not performed % (Normal) Range: 0.0-1.4 CPKMB < 0.5 ng/mL (Normal) Range: 0.0-5.0 Comments: CK-MB and RI Interpretation MB Relative Index Non-AMI <or= 5 NA Indeterminate > 5 <or= 4 AMI > 5 > 4 CPK TOTAL 69 U/L (Normal) Range: 26-192 01-Njo-342055:25 Prothrombin Time w/INR Comments: [facility] [address]tanys[address] [facility] [place], [address] INR 1.0 (Normal) PROTIME 13.4 s (Normal) Range: 11.7-14.9 36-Zgc-728913:25 Troponin-I Comments: Serial Specimen #1, #2 or #3? 1'TROP' Serial specimen #1, #2, #3, or #4: [address] [place] [address] Yyuwfiwvyd6183 [facility]. [place], [place], [address] TROPONIN-I < 0.02 ng/mL (Normal) Comments: TROPONIN-I EXPECTED VALUES <0.05 NEGATIVE 0.06 - 0.59 AT RISK OF AK > OR = 0.60 SUGGEST AK 81-Igc-364020:50 Urinalysis, Office (49411) UA - LEUKOCYTE ESTERASE Small (Normal) UA - NITRITE Negative (Normal) URINE UROBILINGN DIPAK TIMED Normal mg/dL (Normal) UA - PROTEIN Negative mg/dL (Normal) UA - PH 7.0 (Normal) UA - BLOOD Non Hemolyzed Trace (Normal) UA - SPECIFIC GRAVITY 1.015 (Normal) UA - KETONES Negative mg/dL (Normal) UA - BILIRUBIN Negative (Normal) UA - GLUCOSE Negative (Normal) 21-Btn-111214:16 URINE ELLE CULTURE-IDENTIFICATN Comments: PATIENT NOT FASTINGPERFORMED BY: [facility] Lebquw3565 [address] [place] [id number] Information: [id number] ([id number]) Result 1 MUG (Normal) Comments: Mixed urogenital flora1,000 Colonies/mL Urine Culture,Comprehensive Final report (Normal) :58 CBC W/Diff, Automated Comments: [facility] [address] [place], [place], [address] ; non-emergent till apt Absolute Lymph 1.57 [...] 4.4-11.0 :58 Comprehensive Metabolic Profil Comments: [facility] [address]kt[address] [place], [place], [address] GAP 8 (Normal) Range: 5-15 CO2 30.0 [...] Range: 70-110 :58 Hemoglobin A1c Comments: [facility] [address]onp[address] [place], [address] HGB A1C 5.9 % (Normal) Range: 4.2-6.3 :58 Lipid Profile Comments: [facility] [address] [place], [address] VLDL 14 mg/dL (Normal) Range: [...] Complete Comments: How was Urine Obtained? CLEAN [facility] [address]lllfzj[address] [place], [address] MUCUS, URINE 0 SEEN {/hpf} [...] CLARITY Sl. Cloudy (Normal) COLOR Yellow (Normal) 41-Ben-83796:26 CBC W/Diff, Auto - EPLAB Comments: At [facility] Outpatient [facility] Medical Oncologypatients receive CBC w/auto Differential ONLY. Physicianwill place an order for a manual differential or Pathologistreview at his discretion. [facility] OUTPATIENT [facility]. [address] [place] [address] [place] [address] LOCATION ANALYST: JOSE KOHLI DO PH:[phone] Memorial Hospital [address]oaow[address] [place], [address] ; ordered by Dr. Evgeny [...] 4.2-5.4 WBC 7.0 K/mm3 (Normal) Range: 4.4-11.0 4-Qxq-329382:30 Basic Metabolic Profile (BMP) Comments: [facility] [address]rsrg[address] [place], [address] GAP 8 (Normal) Range: 5-15 CO2 27.0 [...] 7-18 GLU 84 mg/dL (Normal) Range: 70-110 0-Qzt-027800:30 CBC-Complete Blood Cnt No Diff Comments: [facility] [address]oxi[address] [place], [place], [address] MPV 11.8 fL (Normal) Range: 6.2-12.0 PLT [...] 4.2-5.4 WBC 6.7 K/mm3 (Normal) Range: 4.4-11.0 86-Dzn-492683:37 CBC W/Diff, Auto - EPLAB Comments: At [facility] Outpatient [facility] Medical Oncologypatients receive CBC w/auto Differential ONLY. Physicianwill place an order for a manual differential or Pathologistreview at his discretion. [facility] OUTPATIENT [facility]. [address] [place] [address] [address] LOCATION ANALYST: JOSE KOHLI DO PH:[phone] Memorial Hospital [address] [place], [place], [address] Absolute Lymph 1.77 {X10_3/uL} (Normal) Range: 0.83-4.51 [...] 4.2-5.4 WBC 4.3 K/mm3 (Abnormal) Range: 4.4-11.0 63-Giz-729616:37 Comprehensive Metabolic Profil Comments: Serial Specimen #1, #2 or #3? 1Is Patient Taking Vitamins or Folic Acid Supplements? [facility] Yquxxiyzyq1060 [place], [place], [address] GAP 7 (Normal) Range: 5-15 CO2 29.0 [...] 7-18 GLU 84 mg/dL (Normal) Range: 70-110 54-Kfp-421078:37 Ferritin Comments: Serial Specimen #1, #2 or #3? 1Is Patient Taking Vitamins or Folic Acid Supplements? [facility] [address] [place], [address] FERRITIN 80 ng/mL (Normal) Range: 8-252 06-Aas-214766:37 Folates, (Folic Acid) Comments: Serial Specimen #1, #2 or #3? 1Is Patient Taking Vitamins or Folic Acid Supplements? [facility] [address] [place], [address] FOLATES 63.40 ng/mL (Abnormal) Range: 3.1-17.5 56-Caf-642144:37 Iron Comments: Serial Specimen #1, #2 or #3? 1Is Patient Taking Vitamins or Folic Acid Supplements? [facility] [address] [place], [address] IRON 71 ug/dL (Normal) Range: 50-170 59-Itm-058524:37 Iron Binding Capacity,Total Comments: Serial Specimen #1, #2 or #3? 1Is Patient Taking Vitamins or Folic Acid Supplements? [facility] [address] [place], [address] TIBC 335 ug/dL (Normal) Range: 250-450 63-Xqt-676896:37 LDH 162 U/L (Normal) Comments: Serial Specimen #1, #2 or #3? 1Is Patient Taking Vitamins or Folic Acid Supplements? [facility] [address] [place], [address] Range: 84-246 48-Lpe-028025:37 Uric Acid Comments: Serial Specimen #1, #2 or #3? 1Is Patient Taking Vitamins or Folic Acid Supplements? [facility] [address]vx[address] [place], [address] URIC 4.5 mg/dL (Normal) Range: 2.6-6.0 22-Wnz-288304:37 Vitamin B12 1077 pg/mL (Abnormal) Comments: [facility] [address]uz[address]uw[address] [place], [address] Range: 211-911 97-Wzc-610321:36 CBC W/Diff, Auto - EPLAB Comments: At [facility] [place] Medical Oncologypatients receive CBC w/auto Differential ONLY. Physicianwill place an order for a manual differential or Pathologistreview at his discretion. [facility]. [address] [place] [address] LOCATION ANALYST: JOSE KOHLI DO PH:[phone] Memorial Hospital [address]xyr[address] [place], [address] Absolute Lymph 1.97 {X10_3/uL} (Normal) Range: 0.83-4.51 [...] (Normal) Range: 4.4-11.0 :48 Vitamin D Hydroxy (97602) Comments: PATIENT WAS FASTINGPERFORMED BY: [facility]6370 [facility] [id number] Vitamin D, 25-Hydroxy 32.8 ng/mL (Normal) Range: 30.0-100.0 Comments: Vitamin D deficiency has been defined by the [place] [facility] and an Endocrine Society practice guideline as alevel of serum 25-OH vitamin D less than 20 ng/mL (1,2).The Endocrine Society went on to further define vitamin Dinsufficiency as a level between 21 and 29 ng/mL (2).1. IOM ([place] of Medicine). 2010. Dietary reference intakes for calcium and D. [place]: The National Academies Press.2. Jose Carlos MF, Flip [place], David ROME, et al. Evaluation, treatment, and prevention of vitamin D deficiency: an Endocrine Society clinical practice guideline. JCEM. 2010; 96(7):1911-30. :48 CBC with auto diff Comments: PATIENT WAS FASTINGPERFORMED BY: [facility]6370 [facility] [id number] Information: [id number] (97173) Immature Grans (Abs) 0.0 {x10E3/uL} (Normal) Range: [...] PANEL, COMPREHENSIVE Comments: PATIENT WAS FASTINGPERFORMED BY: [facility] SystemYpokcc0224 [facility] [id number] (32638) ALT (SGPT) 10 [iU]/L (Normal) Range: 0-32 [...] mg/dL (Normal) Range: 65-99 :48 LIPID PANEL (47866) Comments: PATIENT WAS FASTINGPERFORMED BY: [employer] [facility] [id number] LDL/HDL Ratio 1.2 {ratio_units} (Normal) Range: 0.0-3.2 [...] CREATININE RATIO Comments: PATIENT WAS FASTINGPERFORMED BY: [employer] [facility] [id number] (50876) AND (42142) Microalb/Creat Ratio 64.2 {mg/g_creat} (Abnormal) Range: 0.0-30.0 Microalbumin, Urine 46.3 ug/mL (Abnormal) Range: 0.0-17.0 Creatinine, Urine 72.1 mg/dL (Normal) Range: 15.0-278.0 :48 Hemoglobin Glyclated (HGB A1C) Comments: PATIENT WAS FASTINGPERFORMED BY: [employer] [facility] [id number] (43570) Hemoglobin A1c 5.7 % (Abnormal) Range: 4.8-5.6 Comments: . Pre-diabetes: 5.7 - 6.4 Diabetes: >6.4 Glycemic control for adults with diabetes: <7.0 17-Vcu-357101:28 CBC W/Diff, Auto - EPLAB Comments: At [facility] Outpatient [facility] Medical Oncologypatients receive CBC w/auto Differential ONLY. Physicianwill place an order for a manual differential or Pathologistreview at his discretion. [facility]. [address] [place] [address] [place] [address] LOCATION ANALYST: JOSE KOHLI DO PH:[phone] performed at:[facility] Laborato xq[address] [place], [place] [address] ; handled by evgeny Absolute Lymph 1.89 [...] W/Diff, Auto - EPLAB Only Comments: At [facility] Outpatient [facility] Medical Oncologypatients receive CBC w/auto Differential ONLY. Physicianwill place an order for a manual differential or Pathologistreview at his discretion. [facility]. [address] [place] [address] [place] [address] LOCATION ANALYST: JOSE KOHLI DO PH:[phone] performed at:[facility] Laborato [address] [place] [address] Absolute Neut 2.6 {X10_3/uL} (Normal) [...] Creatinine AND GFR Comments: Test performed at:[facility] [address] [place] [address] EST GFR - AA 62 mL/min (Normal) EST GFR 51 mL/min (Abnormal) CREAT,SERUM 1.12 mg/dL (Normal) Range: 0.55-1.20 Comments: Please note revised CREATININE reference range qiyflxgdi86/22/2015. 3-Xfw-259540:38 CBC W/Diff, Auto - EPLAB Only Comments: At [facility] Outpatient [facility] Medical Oncologypatients receive CBC w/auto Differential ONLY. Physicianwill place an order for a manual differential or Pathologistreview at his discretion. [facility] OUTPATIENT [facility]. [address] [place] [address] [address] LOCATION ANALYST: JOSE KOHLI DO PH:[phone] performed at:[facility] [place], [place] [address] Absolute Neut 3.0 {X10_3/uL} (Normal) Range: 2.0-7.7 [...] 4.2-5.4 WBC 5.8 K/mm3 (Normal) Range: 4.4-11.0 67-Fgh-447637:12 FLURESCNT ANTIB SCRN EA Comments: PATIENT WAS FASTINGPERFORMED BY: [facility] SystemBeooyz2632 [facility] [id number] Information: [id number] (35978) celiac profile Immunoglobulin A, Qn, Serum 119 [...] - 30 Moderate to Strong Positive >30 51-Aqb-133937:12 IMMUNOASSAY, ANALYTE Comments: PATIENT WAS FASTINGPERFORMED BY: H-art (WPP)[facility] [id number] (NON-INFECT) (73406) celiac profile Mitochondrial (M2) Antibody <20.0 {Units} (Normal) Range: 0.0-20.0 Comments: Negative 0.0 - 20.0 Equivocal 20.1 - 24.9 Positive >24.9 . Mitochondrial (M2) Antibodies are found in 90-96% of patients with primary biliary cirrhosis. 71-Zwg-101080:12 IGA/IGD/IGG/IGM-EACH (59830) Comments: PATIENT WAS FASTINGPERFORMED BY: gBox6370 [facility] [id number] Immunoglobulin E, Total 2 {IU/mL} (Normal) Range: 0-100 Immunoglobulin M, Qn, Serum 72 mg/dL (Normal) Range: 40-230 Immunoglobulin G, Qn, Serum 884 mg/dL (Normal) Range: 700-1600 [id number] METABOLIC PANEL, COMPREHENSIVE Comments: PATIENT WAS FASTINGPERFORMED BY: H-art (WPP)[facility] [id number] ([id number]) ALT (SGPT) 12 [iU]/L (Normal) Range: 0-32 [...] Glucose, Serum 94 mg/dL (Normal) Range: 65-99 08-Not-930757:12 LIPID PANEL (63591) Comments: PATIENT WAS FASTINGPERFORMED BY: [facility] Fsctiz9292 [facility] [id number] LDL/HDL Ratio 1.2 {ratio_units} (Normal) Range: 0.0-3.2 [...] Cholesterol, Total 168 mg/dL (Normal) Range: 100-199 2-Bdo-908030:25 HgA1C , Office (95311) HgA1C , Office 5.8 % (Normal) Range: 4.6 - 7.1 :0 COLON BIOPSY (CHOOSE See Note (Normal) Comments: Test performed at:[facility] [address] [place], [place] [address] 4 SITE) Comments: Patient: LUPE LOPEZ : 1945 (69/F) Acct Num: [id number] Phys: Samm Boo Unit Num: [id number] Loc: LABSPEC Specimen: [id number] Received: 09/13/14 - 1609 Spec Type: C CHASE BX TISSUES TISSUES: GROSS DESCRIPTION Received is one container labeled with the patient name and designated biopsy polyp at mid transverse. The specimen consists of one irreg ular fragment of light gonzalez soft tissue that measures 0.3 x 0.2 x 0.1 cm. The specimen is totallysubmitted in one cassette. / AM: 09/17/14 TC:5 CPT: 95466 HEADER OPERATION: Colonoscopy with biopsy PRE-OP DIAGNOSIS: Anemia TISSUE SUBMITTED: Biopsy polyp - mid transverse - rule out adenoma MICROSCOPIC DIAGNOSIS Mid transverse colon polyp, biopsy: Tubular adenoma. AM: 09/17 Signed Jose Kohli 09/17/14 <signature on file> :58 CBC W/Diff, Auto - EPLAB Only Comments: At [facility] Outpatient [facility] Medical Oncologypatients receive CBC w/auto Differential ONLY. Physicianwill place an order for a manual differential or Pathologistreview at his discretion. [facility] OUTPATIENT [facility]. [address] [place] [address] [place] [address] LOCATION ANALYST: JOSE KOHLI DO PH:[phone] performed at:[facility] Laborato [address] [place], [place] [address] Absolute Neut 1.6 {X10_3/uL} Range: 2.0-7.7 (Abnormal) [...] See Note (Normal) Comments: Test performed at:[facility] [address] [place] [address] 00 Comments: Patient: LUPE LOPEZ : 1945 (69/F) Acct Num: [id number] Phys: Evgeny Farmer Unit Num: [id number] Loc: [facility] Specimen: [id number] Received: 07/31/14 - 1215 Spec Type: BMB TISSUES TISSUES: ADDENDUM Addendum Number 1 CYTOGENETICS REPORT FROM [facility] INTERPRETATION AND COMMENTS: Karyotype: 46,XX[20] A normal female karyotype w as observed in twenty metaphases analyzed. Please see complete report in e-chart or EMR for further details Addendum Signed Jose [facility] 5 <signature on file> BONE MARROW [...] and cytogenetics. / AM: 07/31/14 TC:5 CPT: 19560, 85417, 99406 x2, 34982 x3, 33731 BONE MARROW STUDY CBC DATE: 07/31/14 WBC [...] Highlights myeloid elements and megakaryocytes. COMMENT IHC (BP55-290) supports the above diagnosis. Flow cytometry study [...] - Smears and send outs Signed Jose [facility] 08/06/14 <signature on file> : IMMUNOHISTOCHEMISTRY See Note (Normal) Comments: Test performed at:[facility] [address] [place] [address] 00 Comments: Patient: LUPE LOPEZ : 1945 (69/F) Acct Num: [id number] Phys: Evgeny Farmer Unit Num: [id number] Loc: MARY Specimen: [id number] Received: 08/01/14 - 1158 Spec Type: IMMUN O TISSUES TISSUES: SPECIMEN INFORMATION: Tissue Source: Bone marrow biopsy and clot Clinical Info: Anemia Specimen Number: [id number] A AND B CPT code: 00852, 44607 x19 METHOD OLOGY: Deparaffinized sections of prefer/formalin-fixed [...] (11E3) negative BCL-2 (BCL2/100/D5) negative BCL- 6 (LN22/VG962J/A8) negative Cyclin D 1/BCL-1 (SP4) negative Block B CD3 (LN10/PS1) positive CD5 (4C7/SP10) positive CD10 (56C6) negative CD20 (MJ1/L26) negative CD23 (1B12) negative CD45 (X16/99/ RP2/18) positive CD79a (11E3) negative BCL-2 (BCL2/100/D5) positive BCL-6 (LN22/OJ399T/A8) nega tive Cyclin D1/BCL-1 (SP4) negative These tests were developed and their performance characteristics determined by [facility]. They may not have been cleared or approved by the U.S. Food and Drug Administration. The FDA has determined that such clearance or approval is not necessary. INTERPRETATION: A. Bone marrow biopsy: Polytypic lymphoid aggregates. B. Bone marrow clot: Polytypic lymphoid aggregates. Comment: There is no evidence of lymphoma. AM:jeniffer 08/02/14 PHYSICIAN AND INSTITUTION [place] [address] Signed Jose [facility] 08/06/14 <signature on file> 8-Fla-479815:59 CBC W/Diff, Auto - EPLAB Only Comments: At [facility] Outpatient [facility] Medical Oncologypatients receive CBC w/auto Differential ONLY. Physicianwill place an order for a manual differential or Pathologistreview at his discretion. [facility]. [address] [place] [address] [address] LOCATION ANALYST: JOSE KOHLI DO PH:[phone] performed at:[facility] [address] [place], [place] [address] Absolute Neut 2.3 {X10_3/uL} (Normal) Range: 2.0-7.7 [...] 4.2-5.4 WBC 5.2 K/mm3 (Normal) Range: 4.4-11.0 06-Wli-36851:23 CBC W/Diff, Auto - EPLAB Only Comments: At [facility] patientsreceive CBC w/auto Differential ONLY. Physician will placean order for a manual differential or Pathologist review athis discretion. [facility]. [address] [address] [address] LOCATION ANALYST: JOSE KOHLI DO PH:[phone] performed at:[facility] [address] [place], [place] [address] Absolute Neut 2.0 {X10_3/uL} (Normal) Range: 2.0-7.7 [...] 4.2-5.4 WBC 4.0 K/mm3 (Abnormal) Range: 4.4-11.0 23-Uth-12612:23 Comprehensive Metabolic Profil Comments: Serial Specimen #1, #2 or #3? 1Test performed at:[facility] [address] [place], [place] [address] GAP 6 (Normal) Range: 5-15 CO2 30.0 [...] #1, #2 or #3? 1Test performed at:[facility] [address] [place] [address] FERRITIN 255 ng/mL (Abnormal) Range: 8-252 :23 Iron Comments: Serial Specimen #1, #2 or #3? 1Test performed at:[facility] [address] [place] [address] IRON 72 ug/dL (Normal) Range: 50-170 :23 Iron Binding Capacity,Total Comments: Serial Specimen #1, #2 or #3? 1Test performed at:[facility] [address] [place] [address] TIBC 320 ug/dL (Normal) Range: 250-450 :23 LDH 176 U/L (Normal) Comments: Serial Specimen #1, #2 or #3? 1Test performed at:[facility] [address] [place] [address] Range: 87-241 :23 Uric Acid Comments: Serial Specimen #1, #2 or #3? 1Test performed at:[facility] [address] [place] [address] URIC 5.2 mg/dL (Normal) Range: 2.6-6.0 :45 Copper, Serum or Plasma Comments: Test performed at:[facility] [address] [place] [address] COPPER 112 ug/dL (Normal) Range: 72-166 Comments: Detection Limit = 5Performed at: [facility]CoAc[facility]Care Health SystemQseqzw3190 [place], [place] [id number] Director: Scot Nuñez PhD, Phone: [phone] at: [facility] LabCoAshley [place] [address] [place], [place] [address]Ykg Director: Satish Mayer MD, Phone: [phone] 25-Jun-20149:45 Lead, Blood Adult 16+yrs Comments: Test performed at:[facility] [address] [facility] [place] [address] LEAD *Form (Normal) Comments: None Detected Environmental Exposure: WHO Recommendation <20 Occupational Exposure: OSHA Lead Std 40 NIKI 30 Detection Limit = 1 1-Toe-097719:43 Comprehensive Metabolic Profil Comments: Serial Specimen #1, #2 or #3? 1Is Patient Taking Vitamins or Folic Acid Supplements? NTest performed at:[facility] [address] [facility]. [place], [place] [id number] GAP 6 (Normal) Range: 5-15 CO2 30.0 [...] 7-18 GLU 86 mg/dL (Normal) Range: 70-110 4-Ycg-897213:43 Direct Antiglobulin Diann YUVAL Comments: Test performed at:[facility] [address] [place] [address] DIRECT DIANN= NEG w/POLYSPECIFIC (Normal) 7-Oyz-592804:43 Erythropoietin Comments: Is Patient Fasting? NTest performed at:[facility] [address] [place] [address] ERYTHROP 102066 24.8 m[iU]/mL (Abnormal) Range: 2.6-18.5 3-Cbk-678545:43 Ferritin Comments: Serial Specimen #1, #2 or #3? 1Is Patient Taking Vitamins or Folic Acid Supplements? NTest performed at:[facility] [address] [place] [address] FERRITIN 11 ng/mL (Normal) Range: 8-252 2-Pyf-580006:43 Folates, (Folic Acid) Comments: Serial Specimen #1, #2 or #3? 1Is Patient Taking Vitamins or Folic Acid Supplements? NTest performed at:[facility] [address] [place] [address] FOLATES 48.80 ng/mL (Abnormal) Range: 3.1-17.5 :43 Haptoglobin Comments: Is Patient Fasting? NTest performed at:[facility] [address] [place] [address] HAPTOGLOB 1628 224 mg/dL (Abnormal) Range: 34-200 Comments: Performed at: - [facility] [id number] Director: Scot Nuñez PhD, Phone: [phone] 1-Ncy-430903:43 THEE + Protein Elect, Serum Comments: Is Patient Fasting? NTest performed at:[facility] [address] [place] [address] NOTE: Comment (Normal) Comments: Protein electrophoresis scan will follow via computer,mail, or legal arbitrator delivery. THEE RESULT,S Comment: (Normal) Comments: THEE SHOWS ATYPICAL LAMBDA. A/G RATIO 1.4 (Normal) Range: 0.7-2.0 GLOBULIN, TOTAL 2.8 g/dL (Normal) Range: 2.0-4.5 M-SPIKE (Normal) Comments: Not Observed GAMMA GLOBULIN 0.9 g/dL (Normal) Range: 0.5-1.6 BETA GLOBULIN 0.9 g/dL (Normal) Range: 0.6-1.3 AZBHA-3-GFDJ 0.9 g/dL (Normal) Range: 0.4-1.2 VZIRD-3-CDUZ 0.3 g/dL (Normal) Range: 0.1-0.4 ALBUMIN 3.9 g/dL (Normal) Range: 3.2-5.6 IMMUNOGL M 1792 69 mg/dL (Normal) Range: 40-230 IMMUNO A 1784 133 mg/dL (Normal) Range: 91-414 IMMUNO G 1776 959 mg/dL (Normal) Range: 700-1600 PROTEIN,TOTAL 6.7 g/dL (Normal) Range: 6.0-8.5 :43 Iron Binding Capacity,Total Comments: Serial Specimen #1, #2 or #3? 1Is Patient Taking Vitamins or Folic Acid Supplements? NTest performed at:[facility] [address] [place] [address] TIBC 407 ug/dL (Normal) Range: 250-450 0-Rdb-123157:43 Lasara Lambda Light Chains Comments: Is Patient Fasting? NTest performed at:[facility] [address] [facility] [place] [address] KAPPA/LAMBDA % 1.35 (Normal) Range: 0.26-1.65 FR LAMBDA LT CH 18.72 mg/L (Normal) Range: 5.71-26.30 FR KAPPA LT CHN 25.25 mg/L (Abnormal) Range: 3.30-19.40 6-Nsb-542620:43 LDH 173 U/L (Normal) Comments: Serial Specimen #1, #2 or #3? 1Is Patient Taking Vitamins or Folic Acid Supplements? NTest performed at:[facility] [address] [place] [address] Range: 87-241 5-Zxj-583195:43 Retic Panel Comments: Test performed at:[facility] [address] [place] [address] IPF 2.5 % (Normal) Range: 1.0-7.9 [...] 3.00-15.90 RETIC 0.97 % (Normal) Range: 0.5-1.5 9-Pri-578630:43 Thyroid Stim Hormone (TSH) Comments: Serial Specimen #1, #2 or #3? 1Is Patient Taking Vitamins or Folic Acid Supplements? NTest performed at:[facility] [address] [place] [address] TSH 1.87 {uIU/mL} (Normal) Range: 0.358-3.74 4-Rrp-304897:43 Uric Acid Comments: Serial Specimen #1, #2 or #3? 1Is Patient Taking Vitamins or Folic Acid Supplements? NTest performed at:[facility] [address] [place] [address] URIC 5.0 mg/dL (Normal) Range: 2.6-6.0 1-Ncv-797715:43 Vitamin B12 548 pg/mL (Normal) Comments: Test performed at:[facility] [address] [place] [address] Range: 211-911 8-Lqr-874806:42 CBC W/Diff, Auto - EPLAB Only Comments: At [facility] patientsreceive CBC w/auto Differential ONLY. Physician will placean order for a manual differential or Pathologist review athis discretion. [facility]. [address] [address] [place] [address] LOCATION ANALYST: JOSE KOHLI DO PH:[phone] performed at:[facility] [address] [place] [address] Absolute Neut 2.6 {X10_3/uL} (Normal) Range: 2.0-7.7 [...] 4.2-5.4 WBC 4.8 K/mm3 (Normal) Range: 4.4-11.0 08-Udu-98274:56 METABOLIC PANEL, COMPREHENSIVE Comments: PATIENT WAS FASTINGPERFORMED BY: [facility] SystemPoooxn8963 [facility] [id number] (98991) ALT (SGPT) 5 [iU]/L (Normal) Range: 0-32 [...] mg/dL (Normal) Range: 65-99 :56 LIPID PANEL (78378) Comments: PATIENT WAS FASTINGPERFORMED BY: [facility] [employer] [id number] LDL/HDL Ratio 1.3 {ratio_units} (Normal) Range: 0.0-3.2 [...] DIFF WBC Comments: PATIENT WAS FASTINGPERFORMED BY: [address] [facility] [id number] Information: [id number] (21645) Immature Grans (Abs) 0.0 {x10E3/uL} (Normal) Range: [...] 3.77-5.28 WBC 4.8 {x10E3/uL} (Normal) Range: 3.4-10.8 0-Dyc-078869:44 Protein Electro, Random Urine Comments: PATIENT WAS FASTINGPERFORMED BY: [facility]6370 [facility] [id number] Please note: SPRCS (Normal) Comments: Protein electrophoresis scan will follow via computer, mail, orcourier delivery. M-Abhinav, % Not Observed % (Normal) Gamma Globulin, U 19.9 % (Normal) Beta Globulin, U 25.8 % (Normal) Tgfpb-7-Rrxopjoa, U 12.8 % (Normal) Yhhqa-0-Amuxenfv, U 1.3 % (Normal) Albumin, U 40.2 % (Normal) Protein,Total,Urine 13.5 mg/dL (Normal) Range: 0.0-15.0 :44 Protein Electro.,S Comments: PATIENT WAS FASTINGPERFORMED BY: [facility] TechnologiesD[place] [address]66[address] [facility] [id number]; will review on 05/07 appt Please note: SPRCS (Normal) Comments: Protein electrophoresis scan will follow via computer, mail, orcourier delivery. A/G Ratio 1.2 (Normal) Range: 0.7-2.0 Globulin, Total 3.0 g/dL (Normal) Range: 2.0-4.5 M-Abhinav Not Observed g/dL (Normal) Gamma Globulin 1.0 g/dL (Normal) Range: 0.5-1.6 Beta Globulin 0.8 g/dL (Normal) Range: 0.6-1.3 Bknzx-8-Saewzdyb 0.9 g/dL (Normal) Range: 0.4-1.2 Tuhbb-7-Dsohhxyg 0.3 g/dL (Normal) Range: 0.1-0.4 Albumin 3.7 g/dL (Normal) Range: 3.2-5.6 Protein, Total, Serum 6.7 g/dL (Normal) Range: 6.0-8.5 Written Authorization WAR (Normal) Comments: PATIENT WAS FASTINGPERFORMED BY: [facility]6370 [facility] [id number] :44 Comments: Written Authorization Received.Authorization received from ENRIKE JAIMES [id number] by Jyothi Boland :44 LIPID PANEL (92696) Comments: PATIENT WAS FASTINGPERFORMED BY: [facility]6370 [facility] [id number] LDL/HDL Ratio 1.9 {ratio_units} (Normal) Range: 0.0-3.2 [...] Cholesterol, Total 211 mg/dL (Abnormal) Range: 100-199 8-Nqu-780126:37 FECAL OCCULT- Tubes sent home (47541) FECAL OCCULT HGB ASSAY, QUAL, 1-3 SIMULTANEOU positive (Normal) 3-Wmw-216288:44 RETICULOCYTE COUNT MANUL Comments: PATIENT WAS FASTINGPERFORMED BY: H-art (WPP)[facility] [id number] (98646) Reticulocyte Count 1.6 % (Normal) Range: 0.6-2.6 5-Gze-464276:44 LDH (LD) (LACTATE DEHYDROGENASE) Comments: PATIENT WAS FASTINGPERFORMED BY: [employer] [id number] (72591) LDH 207 [iU]/L (Normal) Range: 119-226 7-Ygl-929842:44 IRON BINDING CAPACITY (TIBC) Comments: PATIENT WAS FASTINGPERFORMED BY: H-art (WPP)[facility] [id number] (83470) Iron Saturation 16 % (Normal) Range: 15-55 Iron, Serum 50 ug/dL (Normal) Range: 35-155 UIBC 270 ug/dL (Normal) Range: 150-375 Iron Bind.Cap.(TIBC) 320 ug/dL (Normal) Range: 250-450 3-Umq-508892:44 FERRITIN (18264) Comments: PATIENT WAS FASTINGPERFORMED BY: H-art (WPP)[facility] [id number] Ferritin, Serum 84 ng/mL (Normal) Range: 15-150 8-Zte-636704:44 CBC W/AUTO DIFF WBC (61925) Comments: PATIENT WAS FASTINGPERFORMED BY: [employer] [id number] Immature Grans (Abs) 0.0 {x10E3/uL} (Normal) Range: [...] CREATININE RATIO Comments: PATIENT WAS FASTINGPERFORMED BY: LabCoJacqueline Ville 6146070 [facility] [id number] (41914) AND (90612) Microalb/Creat Ratio 21.9 {mg/g_creat} (Normal) Range: 0.0-30.0 Microalbumin, Urine 22.0 ug/mL (Abnormal) Range: 0.0-17.0 Creatinine, Urine 100.3 mg/dL (Normal) Range: 15.0-278.0 :44 Hemoglobin Glyclated (HGB A1C) Comments: PATIENT WAS FASTINGPERFORMED BY: [facility]6370 [facility] [id number] (93543) Hemoglobin A1c 5.5 % (Normal) Range: 4.8-5.6 Comments: . Increased risk for diabetes: 5.7 - 6.4 Diabetes: >6.4 Glycemic control for adults with diabetes: <7.0 :39 Microscopic Examination Comments: PATIENT NOT FASTINGPERFORMED BY: [facility]6370 [facility] [id number] Bacteria Few (Normal) Mucus Threads Present (Normal) Epithelial Cells (non renal) 0-10 {/hpf} (Normal) Range: 0 - 10 RBC 0-2 {/hpf} (Normal) Range: 0 - 2 WBC 6-10 {/hpf} (Abnormal) Range: 0 - 5 :37 D-Dimer (42624) Comments: PATIENT NOT FASTINGPERFORMED BY: [facility]6370 [facility] [id number] Information: [id number] D-Dimer 0.84 {mg/L_FEU} (Abnormal) Range: 0.00-0.49 Comments: In conjunction with a non-high clinical probability assessment, anormal (<0.50 mg/L FEU) result excludes deep vein thrombosis (DVT)and pulmonary embolism (PE) with high sensitivity. :39 Vitamin D Hydroxy (88193) Comments: PATIENT NOT FASTINGPERFORMED BY: [facility]6370 [facility] [id number] Vitamin D, 25-Hydroxy 38.7 ng/mL (Normal) Range: 30.0-100.0 Comments: Vitamin D deficiency has been defined by the [place] of[employer]icine and an Endocrine Society practice guideline as alevel of serum 25-OH vitamin D less than 20 ng/mL (1,2).The Endocrine Society went on to further define vitamin Dinsufficiency as a level between 21 and 29 ng/mL (2).1. IOM ([place] of [employer]). 2010. Dietary reference intakes for calcium and D. [place]: The National Academies Press.2. Jose Carlos MF, Flip [place], David ROME, et al. Evaluation, treatment, and prevention of vitamin D deficiency: an Endocrine Society clinical practice guideline. JCEM. 2010; 96(7):1911-30. 35-Mnl-837393:39 Valproic Acid (53436) Comments: PATIENT NOT FASTINGPERFORMED BY: [facility] [address]gh[address] Road[address]ublin [place] [id number] Valproic Acid (Depakote),S 105 ug/mL (Abnormal) Range: 50-100 Comments: Detection Limit = 4 <4 indicates None Detected . Toxicity may occur at levels of 100-500. Measurements of free unbound valproic acid may improve the assess- ment of clinical response.Patient drug level exceeds published reference range. Evaluateclinically for signs of potential toxicity. 24-Ekz-831295:39 VITAMIN B-12 (CYANOCOBALAMIN) Comments: PATIENT NOT FASTINGPERFORMED BY: [facility] [address] [place] [id number] (27166) Vitamin B12 1017 pg/mL (Abnormal) Range: 211-946 28-Ixp-015965:39 FERRITIN (54605) Comments: PATIENT NOT FASTINGPERFORMED BY: [facility] [address] americ[address] [place] [id number] Ferritin, Serum 77 ng/mL (Normal) Range: 15-150 60-Aov-380047:39 IRON (43062) Comments: PATIENT NOT FASTINGPERFORMED BY: [facility] [address] [employer] [id number] Iron, Serum 32 ug/dL (Abnormal) Range: 35-155 96-Mpa-258125:39 CBC W/AUTO DIFF WBC Comments: PATIENT NOT FASTINGPERFORMED BY: CB [facility] [address] [employer] [id number] Information: [id number],2ND ORDER NO DRAW F EE (20488) Immature Grans (Abs) 0.0 {x10E3/uL} (Normal) Range: [...] 3.77-5.28 WBC 6.2 {x10E3/uL} (Normal) Range: 3.4-10.8 35-Fbe-372652:39 TSH (60220) Comments: PATIENT NOT FASTINGPERFORMED BY: [employer] Mpxohw0292 [facility] [id number] TSH 1.800 {uIU/mL} (Normal) Range: 0.450-4.500 52-Fba-762115:39 URINALYSIS, W/ MICRO (09162) Comments: PATIENT NOT FASTINGPERFORMED BY: [employer] Avwhjb7344 [facility] [id number] Microscopic Examination See below: (Normal) Comments: Microscopic was indicated and was performed. Nitrite, Urine Negative (Normal) Urobilinogen,Semi-Qn 0.2 mg/dL (Normal) Range: 0.0-1.9 Bilirubin Negative (Normal) Occult Blood Negative (Normal) Ketones Negative (Normal) Glucose Negative (Normal) Protein Negative (Normal) WBC Esterase 1+ (Abnormal) Appearance Clear (Normal) Urine-Color Yellow (Normal) pH 6.5 (Normal) Range: 5.0-7.5 Specific Calvin 1.013 (Normal) Range: 1.005-1.030 97-Uya-660258:39 METABOLIC PANEL, COMPREHENSIVE Comments: PATIENT NOT FASTINGPERFORMED BY: [facility]CoAc[facility] SystemUwvvfn0155 [facility] [id number] (85283) ALT (SGPT) 5 [iU]/L (Normal) Range: 0-32 [...] Syncope Planned Observations CBC W/AUTO DIFF WBC (60283)Indication: Hypertension, benign On: :29 Request METABOLIC PANEL, COMPREHENSIVE (35181)Indication: Hypertension, benign On: :29 Request CBC with auto diff (93869)Indication: Elevated hemoglobin A1c On: 09-Vif-990607:16 Request METABOLIC PANEL, COMPREHENSIVE (40192)Indication: Elevated hemoglobin A1c On: 82-Oia-691883:16 Request HGB A1C (45265)Indication: Elevated hemoglobin A1c On: 37-Plv-501053:16 Request LIPID PANEL (06604)Indication: Other hyperlipidemia On: 24-Cue-073580:16 Request TSH (19136)Indication: Abnormal TSH On: 57-Roh-008264:09 Request TSH (THYROID STIMULATING HORMONE) (66357)Indication: Abnormal TSH On: 63-Kap-577346:15 Request LIPID PANEL (25774)Indication: Other hyperlipidemia On: 42-Nyl-109047:14 Request CBC with auto diff (51498)Indication: Elevated hemoglobin A1c On: 78-Wwc-150968:14 Request METABOLIC PANEL, COMPREHENSIVE (42113)Indication: Elevated hemoglobin A1c On: 82-Amj-420015:14 Request HGB A1C (19837)Indication: Elevated hemoglobin A1c On: 39-Ejt-327901:14 Request CBC W/AUTO DIFF WBC (67030)Indication: Anemia On: 62-Hwf-921144:30 Request CBC with auto diff (48539)Indication: Anemia On: 16-Nnw-168428:02 Request METABOLIC PANEL, COMPREHENSIVE (26802)Indication: Impaired Fasting Glucose (Renamed from Elevated fasting blood sugar) On: 37-Bfy-862662:02 Request TSH (82197)Indication: Abnormal TSH On: 26-Cjl-813027:01 Request SED RATE ERYTHROCYTE (65743)Indication: Anemia On: :58 Request C-REACTIVE PROTEIN (87327)Indication: Anemia On: :58 Request FOLIC ACID SERUM (93610)Indication: Anemia On: :58 Request VITAMIN B-12 (CYANOCOBALAMIN) (31310)Indication: Anemia On: :58 Request IGA/IGD/IGG/IGM-EACH (68276)Indication: Anemia On: :33 Request CBC W/AUTO DIFF WBC (97461)Indication: Impaired Fasting Glucose (Renamed from Elevated fasting blood sugar) On: : Request METABOLIC PANEL, COMPREHENSIVE (54758)Indication: Impaired Fasting Glucose (Renamed from Elevated fasting blood sugar) On: : Request Vitamin D Hydroxy (90009)Indication: Other osteoporosis On: : Request CBC with auto diff (59856)Indication: Anemia On: :22 Request TSH (THYROID STIMULATING HORMONE) (60558)Indication: Abnormal TSH On: :21 Request HGB A1C (54155)Indication: Impaired Fasting Glucose (Renamed from Elevated fasting blood sugar) On: : Request serum immunofixation (30978)Indication: Anemia On: : Request urine immunofixation (17055)Indication: Anemia On: : Request LIPID PANEL (31565)Indication: Other hyperlipidemia On: :15 Request METABOLIC PANEL, COMPREHENSIVE (01429)Indication: Hypertension, benign On: 50-Wze-591257:14 Request LIPID PANEL (63616)Indication: Fibromyalgia (Renamed from Diffuse myofascial pain syndrome) On: 36-Sge-967332:14 Request TSH (THYROID STIMULATING HORMONE) (57691)Indication: Abnormal TSH On: :15 Request HGB A1C (76201)Indication: Impaired Fasting Glucose (Renamed from Elevated fasting blood sugar) On: :15 Request CBC with auto diff ([id number])Indication: Hypertension, benign On: :15 Request METABOLIC PANEL, COMPREHENSIVE ([id number])Indication: Hypertension, benign On: :15 Request LIPID PANEL ([id number])Indication: Other hyperlipidemia On: :14 Request ASSAY, TROPONIN, QUANTITATIVE (aka Troponin I) ([id number])Indication: Atypical chest pain On: 8-Zdj-310366:02 Request TSH ([id number])Indication: Abnormal TSH On: 7-Htl-018538:56 Request CBC WITH MANUAL DIFF ([id number])Indication: Other specified nutritional anemias On: 6-Hue-666021:48 Request Comments: 1 month TSH (THYROID STIMULATING HORMONE) (89253)Indication: Hypertension, benign On: :15 Request Iron ([id number])Indication: Anemia On: 5-Hmm-954064:59 Request METABOLIC PANEL, COMPREHENSIVE (81226)Indication: Other osteoporosis On: 6-Lyz-404361:01 Request Vitamin D Hydroxy (96628)Indication: Other osteoporosis On: :37 Request LIPID PANEL ([id number])Indication: Other hyperlipidemia On: :36 Request HGB A1C (70040)Indication: Impaired Fasting Glucose (Renamed from Elevated fasting blood sugar) On: :35 Request MICROALBUMIN: CREATININE RATIO (16867) AND (55896)Indication: Impaired Fasting Glucose (Renamed from Elevated fasting blood sugar) On: :35 Request Metabolic Panel, Comprehensive ([id number])Indication: Gastroenteritis On: 16-Aou-725463:09 Request CBC, Platelets & Auto Diff ([id number])Indication: Gastroenteritis On: 97-Ycu-502953:09 Request Sed Rate Erythrocyte (57821)Indication: Gastroenteritis On: 45-Naq-869855:09 Request CBC WITH MANUAL DIFF ([id number])Indication: Anemia On: :12 Request Comments: 6 weeks TSH (34206)Indication: Abnormal TSH On: 4-Cyc-158964:11 Request Comments: 6 weeks VITAMIN B-12 (CYANOCOBALAMIN) (57991)Indication: Anemia On: :39 Request TSH ([id number])Indication: Abnormal TSH On: 68-Dtn-31877:40 Request CBC W/AUTO DIFF WBC ([id number])Indication: Anemia On: 49-Afn-33556:40 Request TSH ([id number])Indication: Abnormal TSH On: 51-Hjm-41369:25 Request Comments: ADD ON METABOLIC PANEL, COMPREHENSIVE ([id number])Indication: Impaired Fasting Glucose (Renamed from Elevated fasting blood sugar) On: 62-Mcw-126680:43 Request Anti-TPO Antibody ([id number])Indication: Abnormal TSH On: :42 Request T4, FREE (THYROXINE) (02627)Indication: Abnormal TSH On: :42 Request T3, FREE (TRIDOTHYRONINE) ([id number])Indication: Abnormal TSH On: :42 Request RHEUMATOID FACTOR-QUANT (61709)Indication: Chronic right shoulder pain On: :32 Request SED RATE ERYTHROCYTE ([id number])Indication: Chronic right shoulder pain On: :32 Request C-REACTIVE PROTEIN ([id number])Indication: Chronic right shoulder pain On: :32 Request CBC W/AUTO DIFF WBC (77060)Indication: Hypertension, benign On: :31 Request METABOLIC PANEL, COMPREHENSIVE ([id number])Indication: Hypertension, benign On: :31 Request LIPID PANEL ([id number])Indication: Other hyperlipidemia On: :31 Request TSH ([id number])Indication: Chest pain at rest On: 99-Upj-411556:31 Request HGB A1C (27291)Indication: Impaired Fasting Glucose (Renamed from Elevated fasting blood sugar) On: 0-Dai-498492:00 Request CBC with auto diff ([id number])Indication: Impaired Fasting Glucose (Renamed from Elevated fasting blood sugar) On: 1-Icr-130350:00 Request METABOLIC PANEL, COMPREHENSIVE ([id number])Indication: Impaired Fasting Glucose (Renamed from Elevated fasting blood sugar) On: 5-Ray-275625:00 Request LIPID PANEL ([id number])Indication: Other hyperlipidemia On: 7-Ymi-104953:00 Request VITAMIN B-12 (CYANOCOBALAMIN) (80999)Indication: Other specified nutritional anemias On: 1-Jpd-497650:59 Request Vitamin D Hydroxy (55804)Indication: Other osteoporosis On: :59 Request CBC (AUTO) ([id number])Indication: Other osteoporosis On: :48 Request Vitamin D Hydroxy (52453)Indication: Other osteoporosis On: :48 Request METABOLIC PANEL, COMPREHENSIVE (29138)Indication: Other hyperlipidemia On: :48 Request LIPID PANEL (61202)Indication: Other hyperlipidemia On: :48 Request SED RATE ERYTHROCYTE ([id number])Indication: Chest pain, unspecified type On: :39 Request Comments: stat C-REACTIVE PROTEIN ([id number])Indication: Chest pain, unspecified type On: :39 Request Comments: stat CBC W/AUTO DIFF WBC ([id number])Indication: Chest pain, unspecified type On: :39 Request Comments: stat Hemoglobin Glyclated (HGB A1C) ([id number])Indication: Impaired Fasting Glucose (Renamed from Elevated fasting blood sugar) On: 04-Tcr-061208:50 Request URINALYSIS, W/ MICRO ([id number])Indication: Hypertension, benign On: 24-Hcm-708736:49 Request CBC with auto diff ([id number])Indication: Other specified nutritional anemias On: 54-Tyh-126442:49 Request METABOLIC PANEL, COMPREHENSIVE (13942)Indication: Other specified nutritional anemias On: 78-Dpr-670020:49 Request LIPID PANEL ([id number])Indication: Other hyperlipidemia On: 59-Fuw-840698:49 Request CBC W/AUTO DIFF WBC ([id number])Indication: Other specified nutritional anemias On: :24 Request METABOLIC PANEL, COMPREHENSIVE (21263)Indication: Other hyperlipidemia On: 29-Uls-726849:24 Request LIPID PANEL (34073)Indication: Other hyperlipidemia On: 35-Yxe-308694:24 Request IRON ([id number])Indication: Other specified nutritional anemias On: 5-Bon-636893:37 Request Planned Encounters Medical; [facility] [...] DIGITAL TOMOSYNTHESIS OF On: 17-Nov-2017 Intent BREAST ([id number])By: Fast DO, Enrike A Fast DO, Enrike A MRI OF THORACIC SPINE WITHOUT On: 13-Aug-2017 Intent CONTRAST ([id number])By: Fast DO, Enrike A Fast DO, Enrike A MRI LUMBAR SPINE W/O CONTRAST On: 13-Aug-2017 Intent ([id number])By: Fast DO, Enrike A Fast DO, Enrike A INJECTION, PROLIA ([id number])By: Fast On: 26-Jul-2017 Intent DO, Enrike A Fast DO, Enrike A Comments: Prolia prefilled syringe 60mg/mlLot:[id number]:10/2019L arm SQPt tolerated wellMLONG ,SCRIPT DEVELOPER Radiology - Lumbar SpineBy: Fast DO, On: 09-Jun-2017 Intent Enrike A Fast DO, Enrike A Radiology - Thoracic SpineBy: Fast On: 09-Jun-2017 Intent DO, Enrike A Fast DO, Enrike A MRI OF BRAIN WITH AND WITHOUT On: 13-Apr-2017 Intent CONTRAST ([id number])By: Fast DO, Enrike A Fast DO, Enrike A ELECTROCARDIOGRAM, COMPLETE (ECG) On: 13-Apr-2017 Intent ([id number])By: Fast DO, Enrike A Fast DO, Comments: [...] DIGITAL TOMOSYNTHESIS OF On: 30-Sep-2016 Intent BREAST ([id number])By: Fast DO, Enrike A Comments: end of oct Fast DO, Enrike A CT - Chest (Without Contrast)By: On: 30-Sep-2016 Intent Fast DO, Enrike A Fast DO, Enrike A Cartoid DopplerBy: Fast DO, Enrike A On: 04-Sep-2016 Intent Fast DO, Enrike A DEXA SCAN AXIAL SKELETON ([id number])By: On: 04-Sep-2016 Intent Fast DO, Enrike A Fast DO, Enrike A Comments: mid september INJECTION, PROLIA ([id number])By: Fast On: 26-Aug-2016 Intent DO, Enrike A Fast DO, Enrike A Comments: prolialot:[id number]:12ite:lt subqroute:subqdose:60mg/mlD.ARNOLDO Ardon ELECTROCARDIOGRAM, COMPLETE (ECG) On: 22-Jul-2016 Intent ([id number])By: Fast DO, Enrike A Fast DO, Comments: ekg showed normal sinus rhythym, normal axis, no acute st/t wave changes Enrike A Cartoid DopplerBy: Fast DO, Enriek A On: 25-May-2016 Intent Fast DO, Enrike A Comments: bilateral INFUSION, NORMAL SALINE SOLUTION , On: 09-Apr-2016 Intent 1000 CC (Special Coverage Instructions Apply. See MCM: 2049) ([id number])By: Madyson Montiel MD ELECTROCARDIOGRAM, COMPLETE (ECG) On: 12-Feb-2016 Intent ([id number])By: Fast DO, Enrike A Fast DO, Comments: ekg showed normal sinus rhythym, normal axis, no acute st/t wave changes Enrike A CT - Chest (Without Contrast)By: On: 12-Feb-2016 Intent Fast DO, Enrike A Fast DO, Enrike A Flu Vaccine (Quadrivalent) [id number]: On: 12-Feb-2016 Intent Fast DO, Enrike A Fast DO, Enrike A Comments: FLUlot: [id number]:Lt deltoidroute:IMdose:.5mlARNOLDO WALLACE ADMINISTRATION OF INFLUENZA VIRUS On: 12-Feb-2016 Intent VACCINE ([id number])By: Fast DO, Enrike A Fast DO, Enrike A MAMMOGRAM, SCREENING, BOTH BREAST On: 13-Nov-2015 Intent ([id number])By: Fast DO, Enrike A Fast DO, Enrike [...] Intent Fast DO, Enrike A ZOSTER VACC, [place] ([id number])By: Reva, On: 06-Mar-2015 Intent Elliott Comments: Zosterlot:[id number]:01/26/16ite:lt subqroute:subqDEMICK, SMA PNEUM VAC ADLT/IMUMNOSPR, SBC/INTRM On: 20-Feb-2015 Intent ([id number])By: Visit, Nurse Comments: Pnuemovaxlot:[id number]:10/30/16site:lt deltoidroute:IMDose:.5mlDEMICK, SMA Flu Vaccine (Quadrivalent) 33852Ov: On: 11-Feb-2015 Intent Fast DO, Enrike A Fast DO, Enrike A Comments: Lot #:[id number] date: 08/2015Amount given:prefilled syringeSite given:L Dltd, IMGiven by: MARGOTH Garibay and ABN signed ADMINISTRATION OF INFLUENZA VIRUS On: 11-Feb-2015 Intent VACCINE ([id number])By: Fast DO, Enrike A Fast DO, Enrike A MAMMOGRAM, SCREENING, BOTH BREAST On: 25-Sep-2014 Intent ([id number])By: Fast DO, Enrike A Fast DO, Enrike A Radiology - Knee - Left - Weight On: 14-Jun-2014 Intent BearingBy: Fast DO, Enrike A Fast DO, Enrike A Radiology - Knee - Right - Weight On: 14-Jun-2014 Intent BearingBy: Fast DO, Enriek A Fast DO, Enrike A Cartoid DopplerBy: Fast DO, Enrike A On: 23-Apr-2014 Intent Fast DO, Enrike A COMPUTED TOMOGRAPHY ANGIOGRAPHY OF On: 17-Apr-2014 Intent CHEST WITH AND WITHOUT CONTRAST ([id number])By: Enrike Jaimes DO A Fast DO, Enrike A CT - Brain/HeadBy: Fast DO, Enrike A On: 16-Apr-2014 Intent Fast DO, Enrike A Doppler Ultrasound OtherBy: Fast DO, On: 16-Apr-2014 Intent Enrike A Fast DO, Enrike A EKG ([id number])By: Matt MCDUFFIE Enrike A On: 16-Apr-2014 Intent [...] Advance Directives Name Dates Details Immunization Registry [place] - Effective on 02/22/2018. Effective: 22-Feb-2018 Expiration [...] for copd/cough - and was back at [facility] they monitoring her = bp is good [...] The patient does have durable power of medical office scheduler and l iving will (she thinks). The patient has noticed staying at home rather than doing something new or going out and lack of energy. Other providers contributing to the patient's care are senior technical editor (Dr. Cota), lead pl sql developer (Dr. Pop) and other: (Pizza Baker- Dr. Villa sees eye dr mann.). Note [...] Limb swelling), Fatigue [facility] Payers [place]/Medicare Adv Olivia LOPEZ; a guarantor
--- OUTSIDE RECORDS SUMMARY | 2018-04-13 15:28 | XMS RPT_ITS | Continuity of Care Document ---
:1945 Author Organization [facility] Address [address] [facility] [address] [place] [address] Phone Care Team Providers Name Role Phone Enrike Jaimes DO Unavailable Cipriano JC, Mike Avelar Unavailable Dayron Monique Unavailable Domenic Navarrete [place] Unavailable Steven Carlisle MD Unavailable [facility], [facility] Unavailable Phong Graham Unavailable MONICA Ruelas Unavailable [...] 12-Jul-2017 Active Comments:Pt gets funding thru the [employer] so send a bill to either them or the pt and then they will im-[id number]-qdo 07/28/16 RaNITidine HCl 300 MG Oral Tablet 1 tab Tablet daily for 90 days Quantity: 90 {Tablet} Refills: 3 Ordered:26-Jan-2018 Mao Bneitez Start : 26-Jan-2018 Active VITAMIN E, 400UNIT [...] 500MG (Oral Tablet) 1 (one) Tablet daily c90tuos for 14 days Quantity: 14 {Tablet} Refills: [...] : 26-Mar-2017 Inactive Comments:take with food in [facility] meloxicam while on this Promethazine HCl 12.5 [...] evualate at home with meds and ib [facility] labs. i went to house, called in [employer], told her brat diet slowly, my nurse [...] Visit Report Result: Comments: See Note; NOTES: [facility] Oncology [facility] [place] [address] OFFICE VISIT Date of Service: 01/25/18 1145 MR#: [id number] Acct: [id number] Name: LUPE LOPEZ Rep #: [id number] : 1945 From: Red Spaulding MD Age/Sex: [...] Iron supplements with Vitamin C o r Warrick juice. Check stool for FOBT. RTC 6 [...] Chronic Code Visit Office Visits / Consults: 69527 OV L3 Est 01/25/18 1153 <Electronically signed by Red Spaulding MD> Date Red Spaulding MD Cosigner Signature: Date (if applicable) CC: Enrike Jaimes DO 23-Dec-2017 Cerv Spine 2 or 3 Views Result: Comments: See Note; NOTES: [facility] Imaging Services [address] [place] [address] Cerv Spine 2 or 3 Views MR#: [id number] Acct: [id number] Name: LUPE LOPEZ Rep #: [id number] : 1945 F 72 From: Ming Odonnell MD PCP: Enrike Jaimes DO Status: REG CLI Study: Cerv Spine 2 or 3 Views Date of Exam: 12/23/17 Exam# [id number] Ordering Dr: Karla Berry MUSIC COORDINATOR-C STUDY: X-RAY - C ERVICAL SPINE REASON [...] Fax CC: Enrike Jaimes DO; Karla Berry Head Sulfide Operator: Signed 23-Dec-2017 Thoracic Spine 2 Views Result: Comments: See Note; NOTES: [facility] Imaging Services [address] [place] [address] Thoracic Spine 2 Views MR#: [id number] Acct: [id number] Name: LUPE LOPEZ Rep #: [id number] : 1945 F 72 From: Ming Odonnell MD PCP: Enrike Jaimes DO Status: REG CLI Study: Thoracic Spine 2 Views Date of Exam: 12/23/17 Exam# [id number] Ordering Dr: Karla Berry STUDY: X-RAY - [...] CC: Enrike Jaimes DO; Karla LOPEZ Prebish Head Sulfide Operator: Signed 11-Dec-2017 Carotid Duplex Ultrasound Result: Comments: See Note; NOTES: [facility] Cardiovascular Services [address] [place] [address] Carotid Duplex Ultrasound 12/10/17 1013 MR#: [id number] Acct: [id number] Name: LUPE BOOGIE Rep #: [id number] : 1945 72 From: Brice Murphy MD [...] the left vertebral artery. Procedure Carotid Duplex 03789. Exam performed in department. Interpretation Summary Mild (<50%) stenosis right extracranial inter nal carotid. Mild (<50%) stenosis left extracranial internal carotid. Flow within the vertebral arteries is antegrade bilaterally. Ordering Physician: Enrike Jaimes Referring Physician: Enrike Jaimes Performed By: Riaz Ashley RVT and Student 12/11/17 1406 Date Brice Murphy MD CC: Enrike Jaimes DO Date Dictated: 12/10/17 1013 Date Transcribed: 12/11/17 1406 Head Sulfide Operator: Signed 10-Dec-2017 SCREENING MAMM (CAD), BILAT Result: Comments: See Note; NOTES: [facility] Imaging Services [address] [place] [address] SCREENING MAMM (CAD), BILAT MR#: [id number] Acct: [id number] Name: LUPE LOPEZ Rep #: [id number] : 1945 F 72 From: Johnny Gilman MD PCP: Enrike Jaimes DO Status: [facility] Study: SCREENING MAMM (CAD), BILAT Date of Exam: 12/10/17 Exam# [id number] Ordering Dr: Enrike Jaimes DO MAMM OGRAPHY [...] will be sent to the [facility] within 30 days. Approximately 10% of breast cancers are not detected by mammography. A normal mammogram should not delay biopsy of a clinically suspicious abnormality. [id number] Electronical ly Signed: Johnny Gilman MD at 13:14 EDT Tel [phone], Service support , CC: Enrike Jaimes DO Head Sulfide Operator: Signed 30-Nov-2017 Pulmonary Visit Report Result: Comments: See Note; NOTES: [facility] [address] [place] [address] OFFICE VISIT Date of Service: 11/30/17 MR#: [id number] Acct: [id number] Name: LUPE BOOGIE Rep #: [id number] : 1945 Provider: Merlin Pop MD Age/Sex: 72/F Location: [facility] Status: Signed Assessment AND Plan Problems 1. [...] Orders: Medications Discontinued: azelastine admini ster into nhya170.5 mcg (0.14 mL) Intranasal BIDJ30.2 Merlin Pop MD nostril Discontinued Reason: Pt no longer taking HPI 6 M FU: Chief Complaint: Chronic cough Details: [facility] 72[facility], currently under care of Dr. Jaimes, [...] kg Intake Visit Reasons: 6 M FU Repair Department Supervisor Required: No Accompanied by: Family / [...] Lung nodule (Chronic) Atherosclerotic heart disease of [place] coronary artery without angina pectoris (Chronic) Moderate [...] Admin Location Lot Number Ex piration Date [facility] Brick Handler 0.5 mL IM Left Deltoid [id number] 07/19/17 90299-851-09 SEQIRUS VIS Given Date VIS Publication Date [...] Downtime Report Result: Comments: See Note; NOTES: [facility] Medical Records Department [address] [place] [address] Downtime Report MR#: [id number] Acct: [id number] Name: LUPE LOPEZ Rep #: [id number] : 1945 72 From: Turner Diop PCP: Enrike Jaimes DO Status: REG CLI This patient was seen during an EMR downtime August 23, 2017 - August 30, 2017. This patient may have a combination of rosa maria r and electronic documentation or all paper documentation. All documentation is viewable within the e-chart portion of [employer] for each patient visit. 27-Aug-2017 Spine Lumbar (Routine) Result: Comments: See Note; NOTES: [facility] Imaging Services [address] [place] [address] Spine Lumbar (Routine) MR#: [id number] Acct: [id number] Name: LUPE LOPEZ Rep #: [id number] : 1945 F 72 From: Carlos Pizano PCP: Enrike Jaimes DO Status: REG CLI Study: Spine Lumbar (Routine) Date of Exam: 08/25/17 Exam# [id number] Ordering Dr: Enrike Jaimes DO STUDY: MRI [...] suppo rt , CC: Enrike Jaimes DO Head Sulfide Operator: Signed 11-Aug-2017 Re-Evaluation - PT (1) Result: Comments: See Note; NOTES: [facility] [address] [place] [address]. [address] [place], [place] [address] Fax REEVALUATION / MEDICARE RECERTI FICATION PHYSICAL THERAPY MR#: [id number] Acct: [id number] Name: LUPE LOPEZ Rep #: [id number] : 1945 72 From: Shanon Ferrara MPT Referring DrBrooke: Enrike Jaimes DO Status: REG RCR Insurance: [employer] MEDICARE PPO SELF PAY INSURANCE Enrike Jaimes DO, It has been my pleasure to treat LUPE LOPEZ over the last 7 visits for LOW BACK PAIN. Please see the progress note below for an update on [facility] plan of care! Subjective: Pt [...] do not hesitate to contact me at [phone] by phone or if you have questions or concerns regarding this new plan of care! Sincerely, Shanon Ferrara &#60 ;Electronically signed by Shanon Ferrara MPT> 08/11/17 1913 CC: Enrike Jaimes DO Signed For Medicare only, by signing this I certify the plan of care. Physicians Signature Date 27-Jul-2017 Oncology Visit Report Result: Comments: See Note; NOTES: [facility] [address] [facility] [place] [address] OFFICE VISIT Date of Service: 07/27/17 1128 MR#: [id number] Acct: [id number] Name: LUPE LOPEZ Rep #: [id number] : 1945 From: Red Spaulding MD Age/Sex: [...] continue Iron supplements with Vitamin C or Warrick juice. RTC 6 months with CBC, CMP, Iron studies. Me dications: Prescriptions This Visit Medication Instructions Recorded Meloxicam [Mobic] 15 mg PO DAILY 06/16/16 Rivaroxaban [Xarelto] 20 mg PO DAILY 06/29/16 Primary Care Provider: Enrike Jaimes DO Refe rring Provider: - Problem List (1) Iron deficiency Status: Resolved Code Visit Office Visits / Consults: 39831 OV L3 Est 07/27/17 1135 <Electronically signed by Red Spaulding MD> Date Red Matiasigner Signature: Date (if applicable) CC: 15-Jul-2017 Stress Report Result: Comments: See Note; NOTES: [facility] Cardiovascular Services [address] [place] [address] MR#: [id number] Acct: [id number] Name: LUPE LOPEZ Rep #: [id number] : [birth year] 72 From: Mike Cota MD [...] %. This note was g enerated with [employer] software. It may contain incorrect words, spelling, and punctuation that were not noted in checking the note before signing. 07/15/17 1311 <Electronically s igned by Mike Coat MD> Date Mike Cota MD CC: Enrike Jaimes DO; Mike Cota MD Date Dictated: 07/15/171306 Date Transcribed: 07/15/171306 Head Sulfide Operator: PM Signed 08-Jul-2017 Inital Evaluation (1) - PT Result: Comments: See Note; NOTES: [facility] [address] [place] [address]. [address] [place] [address] Fax REHABILITATION SERVICES INITIAL EVALUATION MR#: [id number] Acct: [id number] Name: LUPE LOPEZ Rep #: [id number] : 1945 72 From: Domenic Ayala PT, Cert. MDT, OCS Referring DrBoroke: Enrike Jaimes DO Status: REG RCR Insurance: [...] to be FAXED BACK to us at [phone] for Medicare purposes. Please let me know [...] Visit Report Result: Comments: See Note; NOTES: [facility] [address] [place] [address] OFFICE VISIT Date of Service: 07/05/17 MR#: [id number] Acct: [id number] Name: LUPE LPOEZ Rep #: [id number] : 1945 Provider: Mike Cota MD Age/Sex: 72/F Location: [facility] Status: Signed HPI HPI Details: LUPE [...] Her previous diagnostic cardiac cathete rization from [facility] from 05/03/2009 is as noted below. ASSESSMENT: 1. Mild to moderate coronary atherosclerosis, non-flow limiting by angiography. 2. Presered left rgwi6sowjp systolic a nd diastolic function. CLINICAL CORRELATION: This Is a 64-year-old wtio presents with angina ha1ng atypical features, she has nonflowIlmTting disease hr which aggressiw medical therapy is warranted Incl uding aspirin, beta jonn, DAPHNEY Inhibitor, and statin therapy. 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 She will also follow with her customs manager based on her underlying pulmonary disease [...] disease) I25.10 Coronary Disease-Associated Arter y/Lesion type: [place] artery Hyperlipidemia, unspecified hyperlipidemia type E78.5 Hyperlipidemia type: unspecified Essential hypertension I10 Hypertension type: essential hypertension Chest pain, unspe cified type R07.9 Chest pain type: unspecified Coding Level of Care Code Off vis,est,level 4 Diagnoses Paroxysmal atrial fibrillation I48.0 CAD (coronary artery disease) I25.10 Coronary Disease-Assoc iated Artery/Lesion type: [place] artery Hyperlipidemia, unspecified hyperlipidemia type E78.5 Hyperlipidemia type: unspecified Essential hypertension I10 Hypertension type: essential hypertension Chest pain, unspecified type R07.9 Chest pain type: unspecified 07/05/17 1123 <Electronically signed by Mike Cota MD> Date Mike washburn MD Cosigner Signature: Date (if applicable) CC: Enrike Jaimes DO 05-Jul-2017 12 Lead EKG performed by [facility] Result: Comments: See Note; NOTES: [facility] [address] [place] [address] 12 Lead EKG performed by [facility] 07/05/17 1033 MR#: [id number] Acct: [id number] Name: LUPE SANDOVAL Rep #: [id number] : 1945 72 From: Mike Cota MD Attending Dr: Mike Cota MD Status: [facility] Ordering Dr: Mike Coat MD Date: 07/05/17 Location: [facility] Sex: F C Admitted: BMS/12 Lead EKG performed by [facility] ECG Report Interpretation Sinus Bradycardia -First degree A-V block Poor R wave progressionElectronically signed on 2017 at 11:45 by Mike Cota 07/05/17 1146 Date Mike Cota MD CC: Enrike Jaimes DO Date Dictated: 07/05/17 1033 Date Transcribed: 07/05/171032 Head Sulfide Operator: PM Signed 16-Jun-2017 Pulmonary Visit Report Result: Comments: See Note; NOTES: [facility] [address] [place] [address] OFFICE VISIT Date of Service: 06/16/17 MR#: [id number] Acct: [id number] Name: LUPE BOOGIE Rep #: [id number] : 1945 Provider: Kirsten Padilla Age/Sex: 72/F Location: [facility] Status: Signed Assessment AND Plan 1. Moderate [...] not seen improvement in her symptoms. [place], follow-up with Dr. Pop in 6 months. [...] PO DAILY 06/20/15 [History Confirmed 06/16/17] Ipratropium Garvin 0.06% [ATROVENT NASAL SPRAY] 1 spray NASAL [...] BMI 26.0-26.9,adult (Chronic) Atherosclerotic heart disease of [place] coronary artery without angina pectoris (Chronic) Moderate [...] hearing normal and external ears normal; negative angleine d of hearing Nose Nose: Positive external [...] signed by Kirsten YEPEZC> Date Kirsten Padilla MUSIC COORDINATOR-C Cosigner Signature: Date ___ (if applicable) CC: Enrike Jaimes DO 09-Jun-2017 L/S Spine Min 4 Views Result: Comments: See Note; NOTES: [facility] Imaging Services [address] [place] [address] L/S Spine Min 4 Views MR#: [id number] Acct: [id number] Name: LUPE LOPEZ Rep #: [id number] : 1945 F 72 From: Brennan Mike DO PCP: Enrike Jaimes DO Status: REG CLI Study: L/S Spine Min 4 Views Date of Exam: 06/09/17 Exam# [id number] Ordering Dr: Enrike Jaimes DO STUDY: X-RAY [...] Brennan Mike DO at 16:29 EDT Tel [phone], Service support , Fax CC: Enrike Jaimes DO Head Sulfide Operator: Signed 09-Jun-2017 Thoracic Spine 3 Views Result: Comments: See Note; NOTES: [facility] Imaging Services [address] [place] [address] Thoracic Spine 3 Views MR#: [id number] Acct: [id number] Name: MACKBOBBRAYDONDUY Rep #: [id number] : 1945 F 72 From: Jose Antonio Jensen PCP: Enrike Jaimes DO Status: REG CLI Study: Thoracic Spine 3 Views Date of Exam: 06/09/17 Exam# [id number] Ordering Dr: Enrike Jaimes DO STUDY: X-RAY [...] suppo rt , CC: Enrike Jaimes DO Head Sulfide Operator: Signed 19-Apr-2017 Brain W/WO Contrast Result: Comments: See Note; NOTES: [facility] Imaging Services [address] [place] [address] Brain W/WO Contrast MR#: [id number] Acct: [id number] Name: LUPE LOPEZ Rep #: [id number] : 1945 F 72 From: Steven Ratliff MD PCP: Enrike Jaimes DO Status: REG CLI Study: Brain W/WO Contrast Date of Exam: 04/19/17 Exam# [id number] Ordering Dr: Enrike Jaimes DO STUDY: MRI [...] Service support , CC: Enrike Jaimes DO Head Sulfide Operator: Signed 05-Jan-2017 Hepatobilliary Img w/Pharm Int Result: Comments: See Note; NOTES: [facility] Imaging Services [facility] [place] [address] Hepatobilliary Img w/Pharm Int MR#: [id number] Acct: [id number] Name: LUPE LOPEZ Rep # : [id number] : 1945 F 71 From: Dom Sorto DO PCP: Enrike Jaimes DO Status: REG CLI Study: Hepatobilliary Img w/Pharm Int Date of Exam: 01/05/17 Exam# [id number] Ordering Dr: Enrike Jaimes DO CLI NICAL: [...] Service support , CC: Enrike Jaimes DO Head Sulfide Operator: Signed 23-Dec-2016 Gallbladder Result: Comments: See Note; NOTES: [facility] Imaging Services [address] [place] [address] Gallbladder MR#: [id number] Acct: [id number] Name: LUPE LOPEZ Rep #: [id number] : F 71 From: Terri Dash MD PCP: Enrike Jaimes DO Status: REG CLI Study: Gallbladder Date of Exam: 12/23/16 Exam# [id number] Ordering Dr: Enrike Jaimes DO US Gallbladder [...] Service support , CC: Enrike Jaimes DO Head Sulfide Operator: Signed 19-Nov-2016 SCREENING MAMM (CAD), BILAT Result: Comments: See Note; NOTES: [facility] Imaging Services [address] [place] [address] SCREENING MAMM (CAD), BILAT MR#: [id number] Acct: [id number] Name: LUPE LOPEZ Rep #: [id number] : 1945 F 71 From: Johnny Gilman MD PCP: Enrike Jaimes DO Status: REG CLI Study: SCREENING MAMM (CAD), BILAT Date of Exam: 11/19/16 Exam# [id number] Ordering Dr: Enrike Jaimes DO MAMM OGRAPHY [...] Johnny Gilman MD at 11:14 EDT Tel [phone], Service support , CC: Enrike Jaimes DO Head Sulfide Operator: Signed 17-Nov-2016 6 Minute Walk Test Result: Comments: See Note; NOTES: [facility] Pulmonary Services/Neurology [address] [place] [address] MR#: [id number] Acct: [id number] Name: LUPE LOPEZ Rep #: [id number] : 04/14/1944 71 From: Merlin Pop MD Referring Dr: Kirsten Padilla NP Date: Ordering Dr: Sex: F C Location: PSN PSN 6 Minute Walk Test - 6 Minute Walk Test 6 Minute Walk Test: 6 Minute Walk Test PS N:6-Minute Walk Test Start: 11/17/16 11:09 Freq: Status: Active Document 11/17/16 11:00 HG (Rec: 11/17/16 11:11 HG [id number]) 6 Minute Walk Test Date Performed 11/17/16 [...] CC: Date Dictated: 11/17/161548 Date Transcribed: 11/17/161548 Head Sulfide Operator: Merlin Pop Signed 12-Nov-2016 Pulmonary Function Report Comp Result: Comments: See Note; NOTES: [facility] Pulmonary Services/Neurology [address] [place] [address] MR#: [id number] Acct: [id number] Name: LUPE LOPEZ Rep #: [id number] : 71 From: Merlin Pop MD Referring Dr: Kirsten Padilla MUSIC COORDINATOR Status: REG CLI Ordering Dr: Date: Location: [facility] Sex: F C COMPLETE PULMONARY FUNCTION TEST INTERPRETATION Brief HPI: Patient is a 71 year old female, currently under the care of myself, who presents to [facility] for complete pulmonary function tests secondary [...] DO Date Dictated: 11/12/163 Date Transcribed: 11/12/161532 Head Sulfide Operator: EDENILSON Signed 06-Oct-2016 Chest without Contrast Result: Comments: See Note; NOTES: [facility] Imaging Services [address] [place] [address] Obduliadana 4d Chest without Contrast MR#: [id number] Acct: [id number] Name: LUPE LOPEZ p #: [id number] : 1945 F 71 From: Sonam Hendricks MD PCP: Enrike Jaimes DO Status: REG CLI Study: Chest without Contrast Date of Exam: 10/06/16 Exam# [id number] Ordering Dr: Enrike Jaimes DO STUDY: CT [...] Sonam Hendricks MD at 23:59 EDT Tel [phone], Service support , CC: Enrike Jaimes DO Head Sulfide Operator: Signed 29-Sep-2016 Dexa Bone Density Study (HP) Result: Comments: See Note; NOTES: [facility] Imaging Services [address] [place] [address] Verda 4d Dexa Bone Density Study (HP) MR#: [id number] Acct: [id number] Name: BRAYDON LOPEZ Rep #: [id number] : 1945 F 71 From: Johnny Gilman MD PCP: Enrike Jaimes DO Status: REG CLI Study: Dexa Bone Density Study (HP) Date of Exam: 09/29/16 Exam# [id number] Ordering Dr: Szymanski DO STUDY: DUAL ENERGY [...] International Society for Clinical Densitometry http://www.iscd.org 3. [facility] Osteoporosis Foundation http://www.nof.org Electronically Signed: Johnny Gilman MD at 9:38 EDT Tel [phone], Service support , CC: Enrike Jaimes DO Head Sulfide Operator: Signed 19-Sep-2016 Carotid Duplex Ultrasound Result: Comments: See Note; NOTES: [facility] Cardiovascular Services [address] [place] [address] Carotid Duplex Ultrasound 09/18/16 1406 MR#: [id number] Acct: [id number] Name: LUPE BOOGIE Rep #: [id number] : 1945 71 From: Brice Murphy MD Attending Dr: Enrike Jaimes DO Status: REG CLI Ordering Dr: Enrike Jiames DO Date: 09/18/16 Location: [facility] Sex: F C Admitted: Reason For [...] the left vertebral artery. Procedure Carotid Duplex 45500. The exam was diagnostic. Exam performed in [facility]. Interpretation Summary Mild (<50%) stenosis [...] Dictated: 09/18/16 1406 Date Transcribed: 09/19/16 0944 Head Sulfide Operator: Signed 16-Sep-2016 PT D/C Summary (1) Result: Comments: See Note; NOTES: [facility] [address] [place] [address]. [address] [place], [place] [id number] Fax [facility] MR#: [id number] Acct: [id number] Name: LUPE LOPEZ Rep #: [id number] [...] PT (1) Result: Comments: See Note; NOTES: [facility] [facility] [address] [place] [address] Fax REEVALUATION / MEDICARE RECERTI FICARANZA Solomon 4d PHYSICAL THERAPY MR#: [id number] Acct: [id number] Name: CARLYNCHASECatalina Rep #: [id number] : 1945 71 From: Shanon Ferrara MPT [...] do not hesitate to contact me at [phone] by phone or if you have questions or concerns reg arding this new plan of care! Sincerely, Shanon Ferrara <Electronically signed by Shanon Ferrara MPT> 08/26/16 1827 CC: Enrike Jaimes DO Signed For Medic are only, by signing this I certify the plan of care. Physicians Signature Date 28-Jul-2016 Inital Evaluation (1) - PT Result: Comments: See Note; NOTES: [facility] [address] [place], [place] [address] Fax REHABILITATION SERVICES INITIAL EVALUATION MR#: [id number] Acct: [id number] Name: LUPE LOPEZ Rep #: [id number] [...] to be FAXED BACK to us at [phone] for Medicare purposes. Please let me know if there are questions or reza rns regarding this plan of care. Physician Signature: Date: <Electronically signed by Shanon Ferrara MPT> 07/28/16 1629 CC: Enrike Jaimes DO Signed For Medicare only, by signing this I certify the plan of care. Physicians Signature Date 08-Jul-2016 Oncology Progress Note Result: Comments: See Note; NOTES: [facility] Medical Records Department [address] [place] [address] Oncology Progress Note MR#: [id number] Acct: [id number] Name: LUPE LOPEZ Rep #: [id number] : 1945 71 From: Red Spaulding MD [...] folate. Red Spaulding MD T: NTS JOB: [id number] 07/08/16 1043 <Electronically signed by Red Spaulding MD> Date Red Spaulding MD Cosigner Signature (If Indicated): Date CC: Date Dictated: 06/20 Date Transcribed: 06/30/162251 Head Sulfide Operator: Signed 21-Feb-2016 Chest without Contrast Result: Comments: See Note; NOTES: [facility] Imaging Services [address] [place] [address] Verdana 4d Chest without Contrast MR#: [id number] Acct: [id number] Name: LUPE LOPEZ Kristen p #: [id number] : 1945 F 71 From: Barrett Small MD PCP: Enrike Jaimes DO Status: REG CLI Study: Chest without Contrast Date of Exam: 02/21/16 Exam# [id number] Ordering Dr: Enrike Jaimes DO STUDY : [...] MD at 2:43 EST , Service support [phone], CC: Enrike Jaimes DO Head Sulfide Operator: Signed 08-Dec-2015 Pulmonary Function Report Comp Result: Comments: See Note; NOTES: [facility] Pulmonary Services/Neurology [facility] [place] [address] Pulmonary Function Test (Comp) MR#: [id number] Acct: [id number] Name: Oliver LOPEZ Rep #: [id number] : 1945 70 From: Merlin Pop MD Referring Dr: Kirsten Padilla MUSIC COORDINATOR Status: REG CLI Ordering Dr: Kirsten Padilla MUSIC COORDINATOR-C Date: 12/06/15 [facility] [facility] Sex: F [facility]: [facility] BRIEF HISTORY OF PRESENT ILLNESS: The [...] patient's primary care physician T: FERNIE JOB: [id number] 12/08/15 0651 <Electronically signed by Merlin Pop MD> Date __ Merlin Pop MD CC: Merlin Pop MD; Kirsten Padilla; Enrike Jaimes DO Date Dictated: 12/07/15 1235 Date Transcribed: 12/07/15 1235 Head Sulfide Operator: Signed 19-Nov-2015 Bilat Scrn Digital AND CAD Result: Comments: See Note; NOTES: [facility] Imaging Services [address] [place] [address] Verdana 4d Bilat Scrn Digital AND CAD MR#: [id number] Acct: [id number] Name: DYLAN LOPEZ Rep #: [id number] : 1945 F 70 From: Johnny Gilman MD PCP: Enrike Jaimes DO Status: REG CLI Study: Bilat Scrn Digital AND CAD Date of Exam: 11/19/15 Exam# [id number] Ordering Dr: Enrike Jaimes DO MAMMOGRAPHY - [...] delay biopsy of a clinically suspicious abnormality. [id number] Electronically Signed: Johnny Gilman MD at 8:15 ED T Tel [phone], Service support [phone], CC: Enrike Jaimes DO Head Sulfide Operator: Signed 07-Oct-2015 Knee 4 or More Views Result: Comments: See Note; NOTES: [facility] Imaging Services [address] [place] [address] Verdana 4d Knee 4 or More Views MR#: [id number] Acct: [id number] Name: LUPE LOPEZ Rep #: [id number] : 1945 F 70 From: Johnny Gilman MD PCP: Enrike Jaimes DO Status: REG CLI Study: Knee 4 or More Views Date of Exam: 10/07/15 Exam# [id number] Ordering Dr: Yamileth Jaimes DO STUDY: X-RAY [...] Johnny Gimlan MD at 13:02 EDT Tel [phone], Service support [phone], RAD/Knee 4 or More Views IMPRESSION: Minimal joint effusion. Electronically Signed: Johnny Gilman MD at 13:02 EDT Tel [phone], Service support [phone], CC: Enrike Jaimes DO Head Sulfide Operator: Signed 27-Aug-2015 PT D/C Summary (1) Result: Comments: See Note; NOTES: [facility] [address] [place] [address] [address] [place] [address] Fax REHABILITATION RVICES DISCHARGE SUMMARY MR#: [id number] Acct: [id number] Name: LUPE LOPEZ Rep #: [id number] : 1945 70 From: Domenic Ayala PT Cert. T Referring DrBrooke: Enrike Jaimes DO Status: REG R CR Insurance: [employer] MEDICARE [facility] - PT D/C Summary It has been [...] feel free to c all me at [phone]. Thank you for the referral of this patient. Sincerely, Domenic Ayala <Electronically signed by Cert. BABITA Bonilla PTT> 08/27/15 1408 CC: Enrike Jaimes DO Signed 06-Aug-2015 Inital Evaluation (1) - PT Result: Comments: See Note; NOTES: [facility] [address] [place] [address]. [address] [place], [place] [address] Fax [facility] MR#: [id number] Acct: [id number] Name: LUPE LOPEZ Rep #: [id number] : 1945 70 From: Cert. BABITA Bonilla [...] to be FAXED BACK to us at [phone] for Medicare purposes. Please let me know [...] 5 Views Result: Comments: See Note; NOTES: [facility] Imaging Services [address] [place] [address] Verdana 4d Cerv Spine 4 or 5 Views MR#: [id number] Acct: [id number] Name: LUPE MCCARTHY Rep #: [id number] : 1945 F 70 From: Vu Hankins MD PCP: Enrike Jaimes DO Status: REG CLI Study: Cerv Spine 4 or 5 Views Date of Exam: 07/30/15 Exam# [id number] Ordering Dr: Szymanski DO STUDY: X-RAY - [...] MD at 17:12 EDT , Service support [phone], RAD/Cerv Spine 4 or 5 Views IMPRESSION: Diffuse oste openia with moderate cervical spondylosis. Electronically Signed: Vu Hankins MD at 17:12 EDT , Service support [phone], CC: Enrike Jaimes DO Head Sulfide Operator: Signed 30-Jul-2015 Shoulder min 2 Views Result: Comments: See Note; NOTES: [facility] Imaging Services [address] [place] [address] Verdana 4d Shoulder min 2 Views MR#: [id number] Acct: [id number] Name: LUPE LOPEZ Rep #: [id number] : 1945 F 70 From: Vu Hankins MD PCP: Enrike Jaimes DO Status: REG CLI Study: Shoulder min 2 Views Date of Exam: 07/30/15 Exam# [id number] Ordering Dr: Enrike Jaimes DO STUDY: X-RAY [...] at 17:12 EDT Tel , Service support [phone], RAD/Shoulder min 2 Views IMPRESSION: Normal x-ray examination of the shoulder. Electronically Signed: Vu Hnakins MD 07/29 at 17:12 EDT , Service support [phone], CC: Enrike Jaimes DO Head Sulfide Operator: Signed 02-Jul-2015 Chest PA and Lateral Result: Comments: See Note; NOTES: [facility] Imaging Services [address] [place] [address] Verdana 4d Chest PA and Lateral MR#: [id number] Acct: [id number] Name: LUPE LOPEZ Rep #: [id number] : 1945 F 70 From: Johnny Gilman MD PCP: Enrike Jaimes DO Status: REG CLI Study: Chest PA and Lateral Date of Exam: 07/02/15 Exam# [id number] Ordering Dr: Yamileth Jaimes DO STUDY: X-RAY [...] Johnny Gilman MD at 11:24 EDT Tel [phone], Service support [phone], RAD/Chest PA and Lateral IMPRESSION: The previously seen right upper lobe infiltrate rome s resolved. No acute abnormality is seen at this time. Electronically Signed: Johnny Gilman MD at 11:24 EDT Tel [phone], Service support [phone], CC: Enrike Jaimes DO Head Sulfide Operator: Signed 02-Jul-2015 ELECTROCARDIOGRAM, COMPLETE (ECG) (21463) Comments: ekg showed normal sinus rhythym, normal axis, no acute st/t wave changes sinus maggie Result: [MEASUREMENTS ANALYSIS] Date of Test: 07/02/2015 10:18:39; Heart Rate: 56; OK Interval: 222; QRS: 100; QT Interval: 448; Corrected QT Interval (QTc): 441; P Wave B[place]: 90; QRS Wave [place]: 6; T Wave [place]: 18; Blood Pressure: 156/64 [ECG DIAGNOSTIC STATEMENTS] Date of Test: 07/02/2015 10:18:39; Summary: Sinus Bradycardia -First degree A-V block Tessy = 222BORDERLINE RHYTHM 02-Jul-2015 Spirometry (58622) Comments: good effort and curve normal Result: 24-Jun-2015 Venous Duplex Lower Extremity Result: Comments: See Note; NOTES: [facility] Cardiovascular Services [address] [place] [address] Venous Duplex US - Ibrahima Extrem 06/24/15 1102 MR#: [id number] Acct: [id number] Name: LUPE LOPEZ Rep #: [id number] : 1945 70 From: Brice Murphy MD [...] Date Dictated: 06/24/15 110 Date Transcribed: 06/24/151907 Head Sulfide Operator: Signed 20-Jun-2015 CTA Chest W/WO Contrast Result: Comments: See Note; NOTES: [facility] Imaging Services [address] [place] [address] Glenna 4d CTA Chest W/WO Contrast MR#: [id number] Acct: [id number] Name: LUPE MCCARTHY Rep #: [id number] : 1945 F 70 From: Johnny Gilman MD PCP: Enrike Jaimes DO Status: REG ER Study: CTA Chest W/WO Contrast Date of Exam: 06/20/15 Exam# [id number] Ordering Dr: Sonam Colon MD STUDY: CTA [...] Johnny Gilman MD at 15:25 EDT Tel [phone], Service support [phone], CC: Enrike Jaimes DO; Sonam Sheth MD Head Sulfide Operator: Signed 20-Jun-2015 Chest 1 View (Portable) Result: Comments: See Note; NOTES: [facility] Imaging Services [address] [place] [address] Verdana 4d Chest 1 View (Portable) MR#: [id number] Acct: [id number] Name: LUPE MCCARTHY Rep #: [id number] : 1945 F 70 From: Johnny Gilman MD PCP: Enrike Jaimes DO Status: REG ER Study: Chest 1 View (Portable) Date of Exam: 06/20/15 Exam# [id number] Ordering Dr: Sonam Colon MD STUDY: X-RAY [...] Johnny Gilman MD at 13:07 EDT Tel [phone], Se rvice support [phone], RAD/Chest 1 View (Portable) IMPRESSION: Focal infiltration in the right upper lobe. Electronically Signed: Johnny Gilman MD at 13:07 EDT Tel [phone], Service support [phone], CC: Enrike Jaimes DO; Sonam Sheth MD Head Sulfide Operator: Signed 20-Jun-2015 ELECTROCARDIOGRAM, COMPLETE (ECG) (49203) Result: [MEASUREMENTS ANALYSIS] Date of Test: 06/20/2015 10:36:19; Heart Rate: 61; OK Interval: 216; QRS: 100; QT Interval: 426; Corrected QT Interval (QTc): 427; P Wave B[place]: 62; QRS Wave [place]: 8; T Wave [place]: 28; Blood Pressure: 160/62 [ECG DIAGNOSTIC STATEMENTS] Date of Test: 06/20/2015 10:36:19; Summary: Sinus Rhythm WITHIN NORMAL LIMITS 15-Jun-2015 Echocardiogram Complete Result: Comments: See Note; NOTES: [facility] Cardiovascular Services [address] [place] [address] Echo Complete 06/12/15 1110 MR#: [id number] Acct: [id number] Name: LUPE PHILLIPS Rep #: [id number] : 1945 70 From: Mike Cota MD [...] her BP this afternoon. Instructed to call [facility] if systolic BP does not [...] Dictated: 06/12/15 1110 Date Transcribed: 06/15/15 1226 Head Sulfide Operator: Signed 13-Jun-2015 History and Physical Exam Result: Comments: See Note; NOTES: [facility] Medical Records Department [address] [place] [address] History and Physical 06/13/15 1251 MR#: [id number] Acct: [id number] Name: LUPE LOPEZ Rep #: [id number] : 1945 70 From: Jess Sparrow MD [...] surgery. 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 CERTIFICATE CLERK history Lives: Spouse/ Significant Other Smoking Status: [...] % (Auto) 51.1 Lymph % (Auto) 33.9 [place] % (Auto) 11.5 H Eos % (Auto) [...] View (Portable) Result: Comments: See Note; NOTES: [facility] Imaging Services [address] [place] [address] Verdana 4d Chest 1 View (Portable) MR#: [id number] Acct: [id number] Name: LUPE MCCARTHY Rep #: [id number] : 1945 F 70 From: Vu Hankins MD PCP: Enrike Jaimes DO Status: REG ER Study: Chest 1 View (Portable) Date of Exam: 06/13/15 Exam# [id number] Ordering Dr: Jessie Ogden MD STUDY: X-RAY [...] MD at 10:55 EDT , Service support [phone], RAD/Chest 1 View (Port able) IMPRESSION: Cardiomegaly with mild hyperexpansion. No acute or active cardiopulmonary disease. Electronically Signed: Vu Hankins MD at 10:55 EDT , Service sup port [phone], CC: Enrike Jaimes DO; Kane Ogden MD Head Sulfide Operator: Signed 13-Jun-2015 CTA Chest W/WO Contrast Result: Comments: See Note; NOTES: [facility] Imaging Services [address] [place] [address] Verdana 4d CTA Chest W/WO Contrast MR#: [id number] Acct: [id number] Name: LUPE MCCARTHY Rep #: [id number] : 1945 F 70 From: Johnny Gilman MD PCP: Enrike Jaimes DO Status: REG ER Study: CTA Chest W/WO Contrast Date of Exam: 06/13/15 Exam# [id number] Ordering Dr: Kane Lujan MD STUDY: CTA [...] verbally conveyed by Johnny Gilman MD to [facility] ED RN, on 06/13/2015 12:08:48 (ET). Electronically Signed: Johnny Gilman MD at 12:08 EDT Tel [phone], Service support [phone], N.B. : The above information has been verbally conveyed by Johnny Gilman MD to [facility] ED RN, on 06/13/2015 12:08:48 (ET). CC: Favio Jaimes DO; Kane Ogden MD Head Sulfide Operator: Signed 13-Jun-2015 EKG (75374) Comments: nsr no acute chg Result: [MEASUREMENTS ANALYSIS] Date of Test: 06/13/2015 09:41:07; Heart Rate: 71; OK Interval: 194; QRS: 96; QT Interval: 420; Corrected QT Interval (QTc): 439; P Wave B[place]: 68; QRS Wave [place]: 2; T Wave [place]: 29; Blood Pressure: 140/70 [ECG DIAGNOSTIC STATEMENTS] Date of Test: 06/13/2015 09:41:07; Summary: Sinus Rhythm WITHIN NORMAL LIMITS 23-May-2015 Carotid Duplex Ultrasound Result: Comments: See Note; NOTES: [facility] Cardiovascular Services [address] [place] [address] Carotid Duplex Ultrasound 05/23/15 0814 MR#: [id number] Acct: [id number] Name: LUPE LOPEZ Rep #: [id number] : 1945 70 From: Brice Murphy MD [...] the left vertebral artery. Procedure Carotid Duplex 53782. The exam was diagnostic. Exam performed in [...] DO Date Dictated: 05/23/15813 Date Transcribed: 05/23/152329 Head Sulfide Operator: Signed 23-May-2015 Nuclear Stress Test - Treadmil Result: Comments: See Note; NOTES: [facility] Imaging Services [address] [place] [address] Verdana 4d Nuclear Stress Test - Treadmil MR#: [id number] Acct: [id number] N ruel: LUPE LOPEZ Rep #: [id number] : 1945 70 From: Mike Cota MD [...] LVEF of 72%. Mike Cota MD T: [facility] JOB: [id number] 05/23/152009 <Electronically signed by Mike Cota MD> Date Mike Cota MD CC: Enrike Jaimes DO Date Dictated: 05/23/15 1023 Date Transcribed: 05/23/15 1023 Head Sulfide Operator: Signed 20-May-2015 ELECTROCARDIOGRAM, COMPLETE (ECG) (98576) Comments: ekg showed normal sinus rhythym, normal axis, no acute st/t wave changes Result: [MEASUREMENTS ANALYSIS] Date of Test: 05/20/2015 11:04:03; Heart Rate: 63; OK Interval: 210; QRS: 99; QT Interval: 408; Corrected QT Interval (QTc): 413; P Wave B[place]: 56; QRS Wave [place]: 10; T Wave [place]: 27; Blood Pressure: 152/76 [ECG DIAGNOSTIC STATEMENTS] Date of Test: 05/20/2015 11:04:03; Summary: Sinus Rhythm WITHIN NORMAL LIMITS 11-Apr-2015 12 Lead Electrocardiogram Result: Comments: See Note; NOTES: [facility] Cardiovascular Services [address] [place] [address] 12 Lead EKG 03/28/15 1548 MR#: [id number] Acct: [id number] Name: LUPE BOOGIE Rep #: [id number] : 1945 70 From: Mkie Cota MD Attending Dr: Kane Spain DO [...] Normal ECG Confirmed by MIKE COTA MD ([id number]), associate entertainment editor TERRI DIOP ([id number]) on 04/11/2015 2:14:19 PM Referred By: CHRISTOPHER Confirmed By:MIKE COTA MD 04/11/15 141 4 Date Mike Cota MD CC: Enrike Jaimes DO Date Dictated: 03/28/15 1548 Date Transcribed: 03/28/151547 Head Sulfide Operator: Signed 25-Dec-2014 Pulmonary Function Report Comp Result: Comments: See Note; NOTES: [facility] Pulmonary Services/Neurology [address] [place] [address] Pulmonary Function Test (Comp) MR#: [id number] Acct: [id number] Name: LUPE PHILLIPS Rep #: [id number] : 1945 69 From: Merlin Pop MD Referring Dr: Merlin Pop MD Status: REG CLI Ordering Dr: Merlin Pop MD Date: 11/27/14 Location: [facility] Sex: F C DATE OF [...] volumes. MERLIN POP MD T: [facility] JOB: [id number] . Date: 11/28/14 Tech.: Temp: PBar: Height(in.): Weight(lbs.): Diagnosis: Medication: : Dyspnea Rest: Dyspnea Exercise: Cough: Productive (cc): Persistent: Smoker: How Long (pk/yrs): Stopped (yrs): Cigarettes: Cigars: 1 1438 <Electronically signed by Merlin Pop MD> Date Merlin Pop MD CC: Merlin Pop MD; Enrike Jaimes DO Date Dictated: 11/03 Date Transcribed: 11/27/141628 Head Sulfide Operator: Signed 23-Oct-2014 PT Discharge Summary Result: Comments: See Note; NOTES: [facility] [address] [facility] [address] [place] [address] Fax REHABILITATION SERVICES DISCHARGE SUMMARY MR#: [id number] Acct: [id number] Name: LUPE LOPEZ Rep #: [id number] : 1945 69 From: Barbie Mcguire Referring [...] Sneakers. Barbie Mcguire DPT T: FERNIE JOB: [id number] <Electronically signed by Monika Mcguire > 10/23/14 1021 CC: Signed 23-Oct-2014 Chest WITH Contrast Result: Comments: See Note; NOTES: [facility] Imaging Services [address] [place] [address] CAT Scan Report MR#: [id number] Acct: [id number] Name: LUPE LOPEZ Rep #: [id number] : 1945 F 69 From: Johnny Gilman MD PCP: Enrike Jaimes DO Status: REG CLI Study: Chest WITH Contrast Date of Exam: 10/23/14 Exam# [id number] Ordering Dr: Merlin Pop MD STUDY: CT [...] Johnny Gilman MD at 14:28 EDT Tel [phone], Service support [phone], Fax CC: Merlin Pop MD; Enrike Jaimes DO Head Sulfide Operator: Signed 02-Oct-2014 Bilat Scrn Digital AND CAD Result: Comments: See Note; NOTES: [facility] Imaging Services [address] [place] [address] Breast Imaging Report MR#: [id number] Acct: [id number] Name: LUPE LOPEZ Rep #: [id number] : 1945 F 69 From: Johnny Gilman MD PCP: Enrike Jaimes DO Status: REG CLI Study: Bilat Scrn Digital AND CAD Date of Exam: 10/02/14 Exam# [id number] Ordering Dr: Enrike Jaimes DO MAMMOGRAPHY - [...] [facility]. Approximately 10% of breast cancers are not detected by mammography. A normal mammogram should not delay biopsy of a clinically suspicious abnormality. Electronically Signed: Isma Gilman MD at 12:54 EDT Tel [phone], Service support [phone], CC: Enrike Jaimes DO Head Sulfide Operator: Signed 27-Sep-2014 Inital Evaluation - PT Result: Comments: See Note; NOTES: [facility] [facility] [address] [place], [place] [address] Fax REHABILITATION SERVICES INITIAL EVALUATION MR#: [id number] Acct: [id number] Name: LUPE LOPEZ Rep #: [id number] : 1945 69 From: Barbie Mcguire Referring [...] no stent that she does see a linen room houseperson. MEDICATIONS: The patient has a list if [...] fair. The patient will benefit from [facility] physical therapy to solve [...] pain. Barbie Mcguire DPT T: FERNIE JOB: [id number] <Electronically signed by Barbie Mcguire > 09/27/14 0823 CC: Signed For Medicare only, by signing this I certify the plan of care. Physicians Signature Date 14-Jun-2014 Knee 4 or More Views Result: Comments: See Note; NOTES: [facility] Imaging Services [address] [place] [address] Radiology Report MR#: [id number] Acct: [id number] Name: LUPE LOPEZ Rep #: [id number] : 1945 F 69 From: Frank Sewell MD PCP: Enrike Jaimes DO Status: REG CLI Study: Knee 4 or More Views Date of Exam: 06/14/14 Exam# [id number] Ordering Dr: Enrike Jaimes DO STUDY: X-R [...] at 7:48 EDT Tel , Service support [phone], CC: Enrike Jaimes DO Head Sulfide Operator: Signed 14-Jun-2014 Knee 4 or More Views Result: Comments: See Note; NOTES: [facility] Imaging Services [address] [place] [address] Radiology Report MR#: [id number] Acct: [id number] Name: LUPE LOPEZ Rep #: [id number] : 1945 F 69 From: Frank Sewell MD PCP: Enrike Jaimes DO Status: REG CLI Study: Knee 4 or More Views Date of Exam: 06/14/14 Exam# [id number] Ordering Dr: Enrike Jaimes DO STUDY: X-R [...] at 7:50 EDT Tel , Service support [phone], RAD/Knee 4 or More Views IMPRESSION: Mild relative narrowing of the medial co mpartment joint space left knee. Generalized osteopenia. Electronically Signed: Ming Sewell MD at 7:50 EDT Tel , Service support [phone], CC: Enrike Jaimes DO Head Sulfide Operator: Signed 16-May-2014 Carotid Duplex Ultrasound Result: Comments: See Note; NOTES: [facility] Cardiovascular Services [address] [place] [address] 05/03/14 1014 MR#: [id number] Acct: [id number] Name: LUPE LOPEZ Rep #: [id number] [...] left ve rtebral artery. Procedure Carotid Duplex 66608. The exam was diagnostic. Exam performed in department. Interpretation Summary Mild (<50%) stenosis right extracranial internal carotid. Mild (<50%) stenosis left extracranial internal carotid. Flow within the vertebral arteries is antegrade bilaterally. ___ Ordering Physician: Enrike Jaimes D.O. Performed By: Rufino Ashley RVT 05/03/14 1107 Date ____ Brice Murphy MD CC: Enrike Jaimes DO Date Dictated: 05/03/14 1014 Date Transcribed: 05/03/14 1107 Head Sulfide Operator: Signed 23-Apr-2014 Spirometry (83606) Comments: good effort and curve normal Result: 17-Apr-2014 Brain/Head W/WO Contrast Result: Comments: See Note; NOTES: [facility] Imaging Services [address] [facility] [place] [address] CAT Scan Report MR#: [id number] Acct: [id number] Name: LUPE LOPEZ Rep #: [id number] : 1945 F 69 From: Johnny Gilman MD PCP: Enrike Jaimes DO Status: REG CLI Study: Brain/Head W/WO Contrast Date of Exam: 04/17/14 Exam# [id number] Ordering Dr: Enrike Jaimes DO STUDY: CT [...] Johnny Gilman MD at 15:01 EST Tel [phone], Service support [phone], CC: Enrike Jaimes DO Head Sulfide Operator: Signed 17-Apr-2014 CTA Chest W/WO Contrast Result: Comments: See Note; NOTES: [facility] Imaging Services [address] [place] [address] CAT Scan Report MR#: [id number] Acct: [id number] Name: LUPE LOPEZ Rep #: [id number] : 1945 F 69 From: Johnny Gilman MD PCP: Enrike Jaimes DO Status: REG CLI Study: CTA Chest W/WO Contrast Date of Exam: 04/17/14 Exam# [id number] Ordering Dr: Enrike Jaimes DO STUDY: C [...] Johnny Gilman MD at 14:38 EST Tel [phone], Service support [phone], CC: Enrike Jaimes DO Head Sulfide Operator: Signed Immunization Name Dates Details Influenza vaccine, split, 3yrs &>, IM (FLUZONE) on: Nov-2017 Influenza, preserv. 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, [address] Absolute Lymph 1.48 {X10_3/ul} (Normal) [...] 4.2-5.4 WBC 4.0 K/mm3 (Abnormal) Range: 4.4-11.0 74-Rve-74084:15 Comprehensive Metabolic Profil Comments: [facility] [address] [place], [place], [address] GAP 7 (Normal) Range: 5-15 CO2 29.0 [...] Comments: Please note revised GLUCOSE reference range plhfakcad20/02/2018. :15 Hemoglobin A1c Comments: [facility] [address] [facility] [address] [place], [place], [address] HGB A1C 5.5 % (Normal) Range: 4.2-6.3 :15 Lipid Profile Comments: [facility] [address] [place], [address] VLDL 16 mg/dL (Normal) Range: 5-40 LDL [...] 200-240 mg/dL Borderline >240 mg/dL High Risk 03-Ina-26042:15 Thyroid Stim Hormone (TSH) Comments: [facility] [address] [facility] [address] [place], [place], [address] TSH 4.30 {uIU/mL} (Abnormal) Range: 0.358-3.74 2-Onk-151079:25 Stool Occult Blood iFOB Comments: [facility] [address] [facility] [address] [place], [place], [address] STOB See Note (Normal) Comments: Reason for Laboratory Test . STOB iFOBOccult Blood Negative 33-Txa-202500:07 CBC W/Diff, Automated Comments: Reason for Laboratory Test .[facility] [address] [place], [place], [address] Absolute Lymph 1.23 {X10_3/ul} (Normal) Range: 0.83-4.51 [...] 4.2-5.4 WBC 3.4 K/mm3 (Abnormal) Range: 4.4-11.0 74-Cep-418112:07 Comprehensive Metabolic Profil Comments: Reason for Laboratory Test .[facility] [address] [place], [place], [address] GAP 7 (Normal) Range: 5-15 CO2 29.0 [...] Comments: Please note revised GLUCOSE reference range aykwegbcz72/02/2018. 11-Vwz-799695:07 Ferritin Comments: Reason for Laboratory Test .[facility] [address] [place], [address] FERRITIN 26 ng/mL (Normal) Range: 8-252 24-Cjx-518044:07 Iron+Iron Binding Capacity Comments: Reason for Laboratory Test .[facility] [address] [place], [address] IRON SATURATION 17.0 % (Normal) Range: 15.0-55.0 IRON 56 ug/dL (Normal) Range: 50-170 TIBC 329 ug/dL (Normal) Range: 250-450 67-Vmc-062519:47 CBC W/Diff, Automated Comments: [facility] [address] [place], [address] Absolute Lymph 1.23 {X10_3/ul} (Normal) Range: 0.83-4.51 [...] 4.2-5.4 WBC 4.8 K/mm3 (Normal) Range: 4.4-11.0 79-Prg-807845:47 Comprehensive Metabolic Profil Comments: [facility] [address] [place], [address] GAP 9 (Normal) Range: 5-15 CO2 25.0 [...] Comments: Please note revised GLUCOSE reference range qtmuyhaih50/04/2017. 82-Fqt-896845:47 Hemoglobin A1c Comments: [facility] [address] [place], [place], [address] HGB A1C 5.5 % (Normal) Range: 4.2-6.3 85-Iln-632281:47 Lipid Profile Comments: [facility] [address] [place], [place], [address] VLDL 18 mg/dL (Normal) Range: 5-40 LDL [...] 200-240 mg/dL Borderline >240 mg/dL High Risk 06-Gvp-586362:47 Thyroid Stim Hormone (TSH) Comments: [facility] [address] Rodriguez. [place], [place], [id number] TSH 4.65 {uIU/mL} (Abnormal) Range: 0.358-3.74 65-Rcz-058282:32 Thyroid Stim Hormone (TSH) Comments: [facility] Ltxssvcyra20[address]. [place], [place], [address] TSH 2.85 {uIU/mL} (Normal) Range: 0.358-3.74 86-Ddh-44383:27 Microscopic Examination Comments: PATIENT WAS FASTINGPERFORMED BY: [facility] Rsuupg6119 [facility] [id number] Bacteria Few (Normal) Mucus Threads Present (Normal) Cast Type Hyaline casts (Normal) Casts Present {/lpf} (Abnormal) Epithelial Cells (non renal) 0-10 {/hpf} (Normal) Range: 0 - 10 RBC 0-2 {/hpf} (Normal) Range: 0 - 2 WBC 0-5 {/hpf} (Normal) Range: 0 - 5 :49 CBC W/Diff, Automated Comments: Reason for Laboratory Test [facility] Ppvoonvyyu6926 [place], [address] Absolute Lymph 1.48 {X10_3/ul} (Normal) [...] Reason for Laboratory Test [facility] Ltzphuhezh2149 [address]k [place], [place], [address] GAP 5 (Normal) Range: 5-15 CO2 31.0 [...] Comments: Please note revised GLUCOSE reference range fxitkijed41/02/2018. 20-Jul-20178:49 Ferritin Comments: Reason for Laboratory Test [facility] Agqfsilaxh7200 [place], [address] FERRITIN 29 ng/mL (Normal) Range: 8-252 20-Jul-20178:49 Iron Comments: Reason for Laboratory Test [facility] Sipnnrwsjy4703 [place], [address] IRON 55 ug/dL (Normal) Range: 50-170 16-Gak-15660:32 Lipid Profile Comments: [facility] Cvduyqkkgz9820 [address] [place], [place], [address] VLDL 18 mg/dL (Normal) Range: 5-40 LDL [...] mg/dL High Risk :32 Liver Profile Comments: [facility] [address] [place], [address] D BILI 0.09 mg/dL (Normal) Range: 0.00-0.30 T BILI 0.50 mg/dL (Normal) Range: 0.20-1.00 ALT 14 U/L (Normal) Range: 13-56 ALK P 55 U/L (Normal) Range: 45-117 AST 19 U/L (Normal) Range: 15-37 GLOB 3.0 g/dL (Normal) Range: 2.2-4.2 ALB 3.7 g/dL (Normal) Range: 3.2-5.0 T PROT 6.7 g/dL (Normal) Range: 6.4-8.2 :32 Thyroid Stim Hormone (TSH) Comments: [facility] Avfyztbxmn7427 [place], [address] TSH 5.71 {uIU/mL} (Abnormal) Range: 0.358-3.74 :27 SED RATE ERYTHROCYTE (62778) Comments: PATIENT WAS FASTINGPERFORMED BY: [facility] Oirrof9274 [facility] [id number] Sedimentation Rate-Westergren 8 mm/h (Normal) Range: 0-40 :27 C-REACTIVE PROTEIN (38212) Comments: PATIENT WAS FASTINGPERFORMED BY: [facility]6370 [facility] [id number] C-Reactive Protein, Quant 0.6 mg/L (Normal) Range: 0.0-4.9 :27 FOLIC ACID SERUM (69383) Comments: PATIENT WAS FASTINGPERFORMED BY: [facility]6370 [facility] [id number] Folate (Folic Acid), Serum >20.0 ng/mL (Normal) Comments: A serum folate concentration of less than 3.1 ng/mL isconsidered to represent clinical deficiency. :27 VITAMIN B-12 (CYANOCOBALAMIN) Comments: PATIENT WAS FASTINGPERFORMED BY: [facility]6370 [facility] [id number] (37173) Vitamin B12 681 pg/mL (Normal) Range: 232-1245 :27 TSH (THYROID STIMULATING Comments: PATIENT WAS FASTINGPERFORMED BY: [facility]6370 [facility] [id number] HORMONE) (92363) TSH 6.650 {uIU/mL} (Abnormal) Range: 0.450-4.500 :27 LIPID PANEL (78644) Comments: PATIENT WAS FASTINGPERFORMED BY: [facility]6370 [facility] [id number] LDL/HDL Ratio 1.4 {ratio} (Normal) Range: 0.0-3.2 [...] mg/dL (Normal) Range: 100-199 :27 HGB A1C (48815) Comments: PATIENT WAS FASTINGPERFORMED BY: [facility]6370 [facility] [id number] Hemoglobin A1c 5.6 % (Normal) Range: 4.8-5.6 Comments: . Pre-diabetes: 5.7 - 6.4 Diabetes: >6.4 Glycemic control for adults with diabetes: <7.0 :27 serum free light chains Comments: PATIENT WAS FASTINGPERFORMED BY: [facility] [id number] (07413) Knierim/Lambda Ratio,S 1.18 (Normal) Range: 0.26-1.65 Free Lambda Lt Chains,S 19.1 mg/L (Normal) Range: 5.7-26.3 Free Knierim Lt Chains,S 22.5 mg/L (Abnormal) Range: 3.3-19.4 :27 urine immunofixation (53344) Comments: PATIENT WAS FASTINGPERFORMED BY: [facility]6370 [facility] [id number] THEE Interpretation:U UPEIP (Normal) Comments: No monoclonality detected. :27 serum immunofixation (93128) Comments: PATIENT WAS FASTINGPERFORMED BY: [facility]6370 [facility] [id number] Immunoglobulin M, Qn, Serum 68 mg/dL (Normal) Range: 26-217 Immunoglobulin A, Qn, Serum 111 mg/dL (Normal) Range: 64-422 Immunoglobulin G, Qn, Serum 669 mg/dL (Abnormal) Range: 700-1600 Immunofixation Result, Serum UPEIP (Normal) Comments: No monoclonality detected. :27 URINALYSIS, W/ MICRO (06830) Comments: PATIENT WAS FASTINGPERFORMED BY: [facility]6370 [facility] [id number] Microscopic Examination See below: (Normal) Comments: Microscopic was indicated and was performed. Microscopic Examination MICRON (Normal) Comments: Microscopic follows if indicated. Nitrite, Urine Negative (Normal) Urobilinogen,Semi-Qn 0.2 mg/dL (Normal) Range: 0.2-1.0 Bilirubin Negative (Normal) Occult Blood Negative (Normal) Ketones Negative (Normal) Glucose Negative (Normal) Protein Negative (Normal) WBC Esterase Negative (Normal) Appearance Clear (Normal) Urine-Color Yellow (Normal) pH 6.0 (Normal) Range: 5.0-7.5 Specific Imnaha 1.019 (Normal) Range: 1.005-1.030 09-Pya-42561:27 METABOLIC PANEL, COMPREHENSIVE Comments: PATIENT WAS FASTINGPERFORMED BY: [facility] RehabilitationSbxdde8045 [facility] [id number] (36129) ALT (SGPT) 12 [iU]/L (Normal) Range: 0-32 [...] 8-27 Glucose 91 mg/dL (Normal) Range: 65-99 9-Sjn-325313:14 CBC W/Diff, Automated Comments: Reason for Laboratory Test .[facility] Gpgxqyqiqz8044 [address]. [place], [place], [address] Absolute Lymph 0.91 {X10_3/ul} (Normal) Range: 0.83-4.51 [...] 4.2-5.4 WBC 5.1 K/mm3 (Normal) Range: 4.4-11.0 3-Vgq-536239:14 Comprehensive Metabolic Profil Comments: Reason for Laboratory Test .Is Patient Taking Vitamins or Folic Acid Supplements? [facility] Fuennlcyjm2616 [address]. [place], [address] GAP 7 (Normal) Range: 5-15 CO2 30.0 [...] 7-18 GLU 100 mg/dL (Normal) Range: 70-110 8-Bjh-139950:14 Ferritin Comments: Reason for Laboratory Test .Is Patient Taking Vitamins or Folic Acid Supplements? [facility] B[address] [place], [place], [address] FERRITIN 42 ng/mL (Normal) Range: 8-252 1-Pao-788047:14 Folates, (Folic Acid) Comments: Reason for Laboratory Test .Is Patient Taking Vitamins or Folic Acid Supplements? [facility] Rqbmbyvxyo8139 [address]. [place], [place], [address] FOLATES 82.80 ng/mL (Abnormal) Range: 3.1-55.4 Comments: Please note revised Folates reference range ebbuobwox21/14/2017. 9-Hgx-227318:14 Iron+Iron Binding Capacity Comments: Reason for Laboratory Test .Is Patient Taking Vitamins or Folic Acid Supplements? [facility] Zgwnvarpxe7062 [address] [place], [address] IRON SATURATION 10.7 % (Abnormal) Range: 15.0-55.0 IRON 36 ug/dL (Abnormal) Range: 50-170 TIBC 335 ug/dL (Normal) Range: 250-450 1-Svt-622546:14 Vitamin B12 > 2000 pg/mL (Abnormal) Comments: Reason for Laboratory Test .[facility] Uftvioyyos8862 [address] [place], [address] Range: 211-911 72-Aef-755213:06 Stool Occult Blood iFOB Comments: [facility] Pagkqvjwdd9809 [address]. [place], [address] STOB See Note (Normal) Comments: Reason for Laboratory Test . STOB iFOBOccult Blood Negative 60-Rkk-46192:18 CBC W/Diff, Automated Comments: [facility] Gqozfirren6175 [address] [place], [address] Absolute Lymph 1.31 {X10_3/ul} (Normal) Range: 0.83-4.51 [...] Patient Taking Vitamins or Folic Acid Supplements? [facility] Jljmajjcyp5586 [address] Michael. [place], [place], [address] GAP 7 (Normal) Range: 5-15 CO2 28.0 [...] Patient Taking Vitamins or Folic Acid Supplements? [facility] [address] [place], [address] FERRITIN 16 ng/mL (Normal) Range: 8-252 :18 Folates, (Folic Acid) Comments: Is Patient Taking Vitamins or Folic Acid Supplements? [facility] Y[address]qafwrco[address] [place], [address] FOLATES 67.80 ng/mL (Abnormal) Range: 3.1-17.5 :18 Iron+Iron Binding Capacity Comments: Is Patient Taking Vitamins or Folic Acid Supplements? [facility] Krugrvqsxy[address] [place], [address] IRON SATURATION 11.2 % (Abnormal) Range: 15.0-55.0 IRON 41 ug/dL (Abnormal) Range: 50-170 TIBC 367 ug/dL (Normal) Range: 250-450 :18 Vitamin B12 1297 pg/mL (Abnormal) Comments: [facility] [address]iw[address] [place], [address] Range: 211-911 90-Ekx-527236:09 Urinalysis, Office (42600) UA - LEUKOCYTE ESTERASE Negative (Normal) UA - NITRITE Negative (Normal) URINE UROBILINGN DIPAK TIMED 2 mg/dL (Normal) UA - PROTEIN Negative mg/dL (Normal) UA - PH 6.0 (Normal) UA - BLOOD Hemolyzed Trace (Normal) UA - SPECIFIC GRAVITY 1.015 (Normal) UA - KETONES Negative mg/dL (Normal) UA - BILIRUBIN Negative (Normal) UA - GLUCOSE Negative (Normal) 39-Oza-054105:09 Blood Glucose , Office (65122) Blood Glucose , Office 91 (Normal) 33-Awu-028064:09 HgA1C , Office (65586) HgA1C , Office 5.3 % (Normal) Range: 4.6 - 7.1 :01 CBC W/Diff, Automated Comments: [facility] Rmfmshtweh7826 [address] [place], [place], [address] Absolute Lymph 0.96 {X10_3/ul} (Normal) Range: 0.83-4.51 [...] Range: 4.4-11.0 :01 Comprehensive Metabolic Profil Comments: [facility] Vdaogdvjjm3541 [address] [place], [place], [address] GAP 12 (Normal) Range: 5-15 CO2 24.0 [...] 7-18 GLU 90 mg/dL (Normal) Range: 70-110 51-Snd-87951:01 Hemoglobin A1c Comments: [facility] Kbcrolxrno9680 [address] [place], [place], [address] HGB A1C 5.3 % (Normal) Range: 4.2-6.3 08-Tun-81267:01 THEE + Protein Elect, Serum Comments: Is Patient Fasting? [facility] (refer to report for specific site)refer to report for address and phone number NOTE: Comment (Normal) Comments: Protein electrophoresis scan will follow via computer,mail, or salt miner delivery. THEE RESULT,S Comment (Normal) Comments: No monoclonality detected. A/G RATIO 1.2 (Normal) Range: 0.7-1.7 GLOBULIN, TOTAL 3.1 g/dL (Normal) Range: 2.2-3.9 M-SPIKE g/dL (Normal) Comments: Not Observed GAMMA GLOBULIN 0.7 g/dL (Normal) Range: 0.4-1.8 BETA GLOBULIN 0.9 g/dL (Normal) Range: 0.7-1.3 DAZAU-4-LMQP 1.0 g/dL (Normal) Range: 0.4-1.0 MZUUY-0-VGRV 0.5 g/dL (Abnormal) Range: 0.0-0.4 ALBUMIN 3.6 [...] Comment (Normal) Comments: No monoclonality detected.Performed at: [facility] [id number] Director: Samm Galvan PhD, Phone: [phone] 11-Oqj-70803:01 Lipid Profile Comments: [facility] Vnzpozzkew4607 [place], [address] VLDL 19 mg/dL (Normal) Range: [...] Risk :01 Thyroid Stim Hormone (TSH) Comments: [facility] Yjizcdzenq4056 [address] [place], [address] TSH 4.87 {uIU/mL} (Abnormal) Range: 0.358-3.74 :01 Vitamin D,25 Hydroxy Comments: [facility] Ushyfuwkob0822 [address] [place], [address] Vitamin D 25-OH 27.3 ng/mL (Normal) Comments: Vitamin D 25(OH) Status Range Deficiency <20 ng/mL (50nmol/L) Insuffciency 20 - 30 ng/mL (50 - 75 nmol/L) Sufficiency 30 - 100 ng/mL (75 - 250 nmol/L) Toxicity >100 ng/mL (>250 nmol/L) :54 CBC W/Diff, Automated Comments: [facility] Zpoglluimg0493 [address] [place], [address] Absolute Lymph 1.70 {X10_3/ul} (Normal) Range: 0.83-4.51 [...] Serial specimen #1, #2, #3, or #4: 1[facility] Uvtqsuhdni2566 [place], [address] GAP 8 (Normal) Range: 5-15 CO2 25.0 [...] (Normal) Range: 70-110 :54 Hemoglobin A1c Comments: [facility] [address] [place], [address] HGB A1C 5.9 % (Normal) Range: 4.2-6.3 :54 Lipid Profile Comments: 'TROP' Serial specimen #1, #2, #3, or #4: [address] [place] [address] [place], [address] VLDL 31 mg/dL (Normal) Range: 5-40 LDL [...] Serial specimen #1, #2, #3, or #4: [address] [place] [address] [place], [place], [address] TSH 4.73 {uIU/mL} (Abnormal) Range: 0.358-3.74 :54 Troponin-I Comments: 'TROP' Serial specimen #1, #2, #3, or #4: [address] [place] [address] [place], [address] TROPONIN-I < 0.02 ng/mL (Normal) Comments: TROPONIN-I EXPECTED VALUES <0.05 NEGATIVE 0.06 - 0.59 AT RISK OF [place] > OR = 0.60 SUGGEST [place] 91-Lea-586229:51 CBC W/Diff, Auto - EPLAB Comments: Order Date: 01/01/16Order Info: [id number] - *CBC w/Diff - oncology ONLYComments: DRAW AND HOLD SERUM TUBEOrder Date: 01/01/16Order Info: [id number] - *CBC w/Diff - oncology ONLYComments: DRAW AND HOLD SERUM Only TUBEAt [facility] Medical Oncologypatients receive CBC w/auto Differential ONLY. Physicianwill place an order for a manual differential or Pathologistreview at his discretion. [facility] OUTPATIENT [facility]. [address] [place] [address] [address] LAUNDRY MACHINE TENDER: JOSE KOHLI DO PH:[phone] Date: 01/01/16Order Info: [id number] - *MISC - Miscellaneous Lab Test #1Comments: Test(s) Ordered by Physician:[facility] Wlixbogjev[address] [place], [address] Absolute Lymph 1.39 {X10_3/uL} (Normal) Range: 0.83-4.51 [...] 4.2-5.4 WBC 4.7 K/mm3 (Normal) Range: 4.4-11.0 08-Spq-250239:51 Comprehensive Metabolic Comments: Order Date: 01/01/16Order Info: [id number] - *CMP Complete Metabolic PanelOrder Info: 3084-1 - *Uric Acid BloodOrder Info: 2500-7 - *TIBCOrder Info: 3568-4 - *IronOrder Info: 3986-4 - *FerritinComments: Ashlyn Martin son:Order Info: 2532-0 - *LDH -LDH (Lactate Dehydrogenase)Order Date: 01/01/16Order Info: [id number] - *MISC - Miscellaneous Lab Test #1Comments: Test(s) Ordered by Physician:FOLATESSerial Specimen #1, # 2 or #3? 1Is Patient Taking Vitamins or Folic Acid Supplements? [facility] Yxefqnnpjm1282 [address] [place], [place], [address] GAP 2 (Abnormal) Range: 5-15 CO2 29.0 [...] 7-18 GLU 89 mg/dL (Normal) Range: 70-110 37-Zwu-171824:51 Ferritin Comments: Order Date: 01/01/16Order Info: [id number] [...] Patient Taking Vitamins or Folic Acid Supplements? [facility] Ezoyaflmiq[address] [place], [place], [address] FERRITIN 14 ng/mL (Normal) Range: 8-252 87-Wmp-661249:51 Folates, (Folic Acid) Comments: Order Date: 01/01/16Order [...] Patient Taking Vitamins or Folic Acid Supplements? [facility] Vpvmjbzjwy4402 [address] [place], [place], [address] FOLATES 72.40 ng/mL (Abnormal) Range: 3.1-17.5 02-Rvs-842640:51 Iron Comments: Order Date: 01/01/16Order Info: 0786-1 [...] Patient Taking Vitamins or Folic Acid Supplements? [facility] [address] [place], [place], [address] IRON 40 ug/dL (Abnormal) Range: 50-170 72-Kne-365130:51 Iron Binding Capacity,Total Comments: Order Date: 01/01/16Order [...] Patient Taking Vitamins or Folic Acid Supplements? [facility] [address] [place], [place], [address] TIBC 354 ug/dL (Normal) Range: 250-450 00-Gld-476595:51 LDH 199 U/L (Normal) Comments: Order Date: [...] Patient Taking Vitamins or Folic Acid Supplements? [facility] Pqajxsklnv[address] [place], [address] Range: 84-246 22-Kdx-818413:51 Uric Acid Comments: Order Date: 01/01/16Order Info: [...] Patient Taking Vitamins or Folic Acid Supplements? [facility] Vlncwymrsn8[address] [place], [address] URIC 3.9 mg/dL (Normal) Range: 2.6-6.0 Comments: The drugs N-Acetylcysteine and Metamizole may falsely deressthis assay. 68-Ipv-264834:51 Vitamin B12 809 pg/mL (Normal) Comments: Order Date: 01/01/16Order Info: [id number] - *B-12Order Date: 01/01/16Order Info: 0453-1 - *MISC - Miscellaneous Lab Test #1[facility] T[address]biblgza[address] [place], [address] Range: 211-911 95-Nax-196003:41 D-Dimer Quantitative (DVT/PE) Comments: Order Date: 06/15/16Order Info: [id number] - *DDIMQ - Fibrin Degrd Ultrsens Qual/SemiquanOrder Date: 06/15/16Order Info: [id number] - *DDIMQ - Fibrin Degrd Ultrsens Qual/[facility]anW[facility] [address]rdnv[address] [place], [address] D-DIMER QUANT 0.28 {FEU/ug/m} (Normal) Range: 0.27-0.49 Comments: NORMAL D-Dimer level (<0.50) indicates no DVT or PE. 3-Ndg-415948:15 Thyroxine (T4) Free, Direct, S Comments: PATIENT NOT FASTINGPERFORMED BY: [facility] Hagtpn4724 [facility] [id number] T4,Free(Direct) 1.22 ng/dL Range: 0.82-1.77 (Normal) Triiodothyronine,Free,Seru 2.2 pg/mL (Normal) Comments: PATIENT NOT FASTINGPERFORMED BY: [facility] Snghho8285 [facility] [id number] 4:15 m Range: 2.0-4.4 Written Authorization WAR (Normal) Comments: PATIENT NOT FASTINGPERFORMED BY: [facility] Jmrdpq0356 [facility] [id number] 4:15 Comments: Written Authorization Received.Authorization received from MAO BENITEZ [id number] by Jyothi Boland 0-Qpg-793357:15 [facility] (67160) Comments: PATIENT NOT FASTINGPERFORMED BY: [facility] Yynhmw3999 [facility] [id number] Please note: SPRCS (Normal) Comments: Protein electrophoresis scan will follow via computer, mail, orcourier delivery. A/G Ratio 1.3 (Normal) Range: 0.7-1.7 Globulin, Total 2.8 g/dL (Normal) Range: 2.2-3.9 M-Abhinav Not Observed g/dL (Normal) Gamma Globulin 0.8 g/dL (Normal) Range: 0.4-1.8 Beta Globulin 0.8 g/dL (Normal) Range: 0.7-1.3 Ifulw-3-Pmvsyojm 0.9 g/dL (Normal) Range: 0.4-1.0 Xwkkf-9-Akksfnah 0.2 g/dL (Normal) Range: 0.0-0.4 Albumin 3.6 g/dL (Normal) Range: 2.9-4.4 Protein, Total, Serum 6.4 g/dL (Normal) Range: 6.0-8.5 4-Gwc-246613:15 UPEP (62527) Comments: PATIENT NOT FASTINGPERFORMED BY: [facility]6370 [facility] [id number] Please note: SPRCS (Normal) Comments: Protein electrophoresis scan will follow via computer, mail, orcourier delivery. M-Abhinav, % Not Observed % (Normal) Gamma Globulin, U 39.7 % (Normal) Beta Globulin, U 30.6 % (Normal) Agdgz-7-Xwaswdzc, U 6.8 % (Normal) Jeqhg-4-Ewkqzdkq, U 2.0 % (Normal) Albumin, U 21.0 % (Normal) Protein,Total,Urine 4.5 mg/dL (Normal) 5-Qkm-728993:15 TSH (01871) Comments: PATIENT NOT FASTINGPERFORMED BY: [facility]omicsB[facility] for RehabilitationRbllkm2404 [facility] [id number] TSH 7.400 {uIU/mL} (Abnormal) Range: 0.450-4.500 8-Lxo-440524:15 CBC WITH MANUAL DIFF (95678) Comments: PATIENT NOT FASTINGPERFORMED BY: [facility]6370 [facility] [id number] Immature Grans (Abs) 0.0 {x10E3/uL} (Normal) Range: [...] 3.77-5.28 WBC 4.5 {x10E3/uL} (Normal) Range: 3.4-10.8 7-Vlu-427271:15 RETICULOCYTE COUNT (27008) Comments: PATIENT NOT FASTINGPERFORMED BY: [facility] Ffkvvx6294 [facility] [id number] Reticulocyte Count 1.0 % (Normal) Range: 0.6-2.6 3-Pkl-150929:15 LDH (LD) (LACTATE DEHYDROGENASE) Comments: PATIENT NOT FASTINGPERFORMED BY: [facility] Eswaye6413 [facility] [id number] (58477) LDH 185 [iU]/L (Normal) Range: 119-226 3-Kqv-853030:15 Iron Binding Capacity (TIBC) Comments: PATIENT NOT FASTINGPERFORMED BY: [facility] Kyppaq5546 [facility] [id number] (72983) Iron Saturation 16 % (Normal) Range: 15-55 Iron, Serum 55 ug/dL (Normal) Range: 27-139 UIBC 281 ug/dL (Normal) Range: 118-369 Iron Bind.Cap.(TIBC) 336 ug/dL (Normal) Range: 250-450 6-Gdr-613282:15 Vitamin B-12 (cyanocobalamin) Comments: PATIENT NOT FASTINGPERFORMED BY: [facility]omicsBachar[facility] Institute for RehabilitationIjlytv3221 [facility] [id number] (20716) Vitamin B12 979 pg/mL (Abnormal) Range: 211-946 8-Vfe-812413:15 Folic Acid Serum (59449) Comments: PATIENT NOT FASTINGPERFORMED BY: LabCoBacharach Institute for RehabilitationWmatox2831 [facility] [id number] Folate (Folic Acid), Serum >20.0 ng/mL (Normal) Comments: A serum folate concentration of less than 3.1 ng/mL isconsidered to represent clinical deficiency. 2-Fxi-103802:15 Ferritin (38244) Comments: PATIENT NOT FASTINGPERFORMED BY: [facility]CoB[facility]arach Institute for RehabilitationEckeug3976 [facility] [id number] Ferritin, Serum 30 ng/mL (Normal) Range: 15-150 57-Kyu-558560:05 CBC W/Diff, Automated Comments: [facility] [address]cbnuij[address] [place], [address] Absolute Lymph 1.49 {X10_3/ul} (Normal) Range: 0.83-4.51 [...] 4.2-5.4 WBC 4.6 K/mm3 (Normal) Range: 4.4-11.0 56-Lif-586124:05 Comprehensive Metabolic Profil Comments: [facility] Fnepfkowlq[address] [place], [place], [address] GAP 8 (Normal) Range: 5-15 CO2 28.0 [...] 7-18 GLU 86 mg/dL (Normal) Range: 70-110 92-Eyu-438781:05 Hemoglobin A1c Comments: [facility] Fdfnqzmvcz6[address] [place], [place], [address] HGB A1C 5.2 % (Normal) Range: 4.2-6.3 71-Pfv-520640:05 Lipid Profile Comments: [facility] Tqhvqzodrz55[address] [place], [address] VLDL 22 mg/dL (Normal) Range: 5-40 LDL [...] 200-240 mg/dL Borderline >240 mg/dL High Risk 14-Ewn-510315:05 Microalb:Creat Ratio,Random UR Comments: [facility] Qfuyisfhia7579 [address] [place], [address] MALB:CREAT 5.0 {mg/g_CRE} (Normal) MICROALBUMIN,UR 7.2 mg/L (Normal) UR CREAT 144.00 mg/dL (Normal) 17-Vdi-110440:05 Vitamin D,25 Hydroxy Comments: [facility] Rcqiovsfjl8100 [address] [place], [address] Vitamin D 25-OH 40.3 ng/mL (Normal) Comments: Vitamin D 25(OH) Status Range Deficiency <20 ng/mL (50nmol/L) Insuffciency 20 - 30 ng/mL (50 - 75 nmol/L) Sufficiency 30 - 100 ng/mL (75 - 250 nmol/L) Toxicity >100 ng/mL (>250 nmol/L) 97-Vss-27606:27 CBC with auto diff (61633) Comments: PATIENT WAS FASTINGPERFORMED BY: [facility] Gdlepq8608 [address] [id number] Immature Grans (Abs) 0.0 {x10E3/uL} (Normal) Range: [...] 3.77-5.28 WBC 3.3 {x10E3/uL} (Abnormal) Range: 3.4-10.8 51-Bzd-580188:35 MAGNESIUM (12960) Comments: PATIENT NOT FASTINGPERFORMED BY: [facility]CoB[facility] Institute for RehabilitationEjyinu9497 [facility] [id number] Magnesium, Serum 1.8 mg/dL (Normal) Range: 1.6-2.3 :35 POTASSIUM SERUM (71273) Comments: PATIENT NOT FASTINGPERFORMED BY: [facility]6370 [facility] [id number] Potassium, Serum 4.5 mmol/L (Normal) Range: 3.5-5.2 48-Spu-23027:00 CBC W/Diff, Automated Comments: [facility] [address]zailkixh5[address] [place], [address] Absolute Lymph 0.91 {X10_3/ul} (Normal) [...] 4.2-5.4 WBC 3.5 K/mm3 (Abnormal) Range: 4.4-11.0 89-Fmn-31408:00 Comprehensive Metabolic Profil Comments: [facility] [id number] [place], [place], [id number] GAP 8 (Normal) Range: 5-15 CO2 31.0 [...] 7-18 GLU 75 mg/dL (Normal) Range: 70-110 41-Nwa-81157:00 Erythrocyte Sed Rate Comments: [facility] [id number] [facility]. [place], [place], [id number] SED RATE 21 mm/h (Normal) Range: 0-30 2-Sxr-368213:37 CBC W/Diff, Automated Comments: [facility] [id number] [facility] [address] [place], [place], [id number] Absolute Lymph 1.96 {X10_3/ul} (Normal) Range: 0.83-4.51 [...] 4.4-11.0 :37 Thyroid Stim Hormone (TSH) Comments: [facility] [id number] [place], [address] TSH 4.43 {uIU/mL} (Abnormal) Range: 0.358-3.74 :37 Vitamin B12 969 pg/mL (Abnormal) Comments: [facility] [address] [place], [address] Range: 211-911 29-Jan-20160:00 CBC W/ Manual Differential Comments: [facility] [address] [place], [address] RED CELL MORPH NORM C+C [...] Contrast this admission? NIs Patient on Heparin? [facility] Hmmcdjzrml5793 [facility] [place], [place], [address] GAP 7 (Normal) Range: 5-15 CO2 30.0 [...] Contrast this admission? NIs Patient on Heparin? [facility] Cgvflorfyd4140 [address], [address] FREE T3 2.1 pg/mL (Abnormal) Range: 2.18-3.98 :00 T4 Free Direct Comments: ADD ON TSHHas Patient had X-rays with Contrast this admission? NIs Patient on Heparin? [facility] Yekvmruvqa2573 [facility], [address] T4 FREE DIRECT 1.30 ng/dL (Normal) Range: 0.76-1.46 29-Jan-20160:00 Thyroid Peroxidase AB Comments: [facility] (refer to report for specific site)refer to report for address and phone number TPO AB [phone] 6 {IU/mL} (Normal) Range: 0-34 Comments: Performed at: [address] [id number] Director: Samm Galvan PhD, Phone: [phone] 29-Jan-20160:00 Thyroid Stim Hormone (TSH) Comments: ADD ON TSHHas Patient had X-rays with Contrast this admission? NIs Patient on Heparin? [facility] Fvgrvdgqnq2413 [facility] [place], [address] TSH 5.27 {uIU/mL} (Abnormal) Range: 0.358-3.74 35-Cuc-714458:38 CBC W/Diff, Auto - EPLAB Comments: At [facility] Medical Oncologypatients receive CBC w/auto Differential ONLY. Physicianwill place an order for a manual differential or Pathologistreview at his discretion. [facility] OUTPATIENT [facility]. [address] [place] [address] [address] LAUNDRY MACHINE TENDER: JOSE KOHLI DO PH:[phone] Hospital Iocbteisak[address] [place], [address] Absolute Lymph 1.55 {X10_3/uL} (Normal) Range: 0.83-4.51 [...] 4.2-5.4 WBC 5.4 K/mm3 (Normal) Range: 4.4-11.0 35-Smd-879668:19 Pathology Report Comments: PERFORMED BY: [facility] [place] Cyto Yovmo25117 [facility] [id number] BY: [facility] Dermatopathology Cptbgkj861 [address] [id number] Information: [id number] See MATER Comments: Material submitted: .PUNCH BIOPSY [...] SPECIMEN IS SUBMITTEDIN CASSETTE(S) A./CORCOR/CORPathologist provided ICD-10:D04.62CPT .714042 09-Yzk-275371:15 HgA1C , Office (29633) HgA1C , Office 5.7 % (Normal) Range: 4.6 - 7.1 34-Kzk-177144:13 CBC W/Diff, Automated Comments: [facility] P[address]mnfnnsx[address] [place], [place], [address] Absolute Lymph 1.90 {X10_3/ul} (Normal) Range: 0.83-4.51 [...] 4.2-5.4 WBC 4.5 K/mm3 (Normal) Range: 4.4-11.0 55-Oth-756316:13 Comprehensive Metabolic Profil Comments: [facility] Rbhfctqwwh8869 [place], [address] GAP 6 (Normal) Range: 5-15 CO2 30.0 [...] 7-18 GLU 89 mg/dL (Normal) Range: 70-110 56-Uwz-014583:13 CRP Comments: [facility] [address] [place], [place], [address] C-REACTIVE PROT < 2.90 mg/L (Normal) Range: 0.0-3.0 Comments: C-Reactive Protein (CRP) provides useful information for thediagnosis, therapy and monitoring of inflammatory processesand associated diseases. For the evaluation of Relative Riskfor Cardiovascular Dise ase, a High Sensitivity CRP (HSCRP)should be ordered. 17-Gyk-872585:13 Erythrocyte Sed Rate Comments: [facility] [address] [place], [place], [address] SED RATE 13 mm/h (Normal) Range: 0-30 60-Liu-155706:13 Lipid Profile Comments: [facility] [address] [place], [place], [address] VLDL 32 mg/dL (Normal) Range: 5-40 LDL [...] 200-240 mg/dL Borderline >240 mg/dL High Risk 00-Tnm-648384:13 Rheumatoid Factor Comments: [facility] [address] [place], [place], [address] RHEUMATOID FAC < 10.0 {IU/mL} (Normal) 86-Jpb-624475:13 Thyroid Stim Hormone (TSH) Comments: [facility] [address]kftgrv[address] [place], [address] TSH 4.62 {uIU/mL} (Abnormal) Range: 0.358-3.74 :54 Lipid Profile Comments: ORDERED: CBCD, CMP, LDH, URIC, XTRADR.FAST ORDERED: LIPID, CMP, VITD, CBCDWBarberton [facility] Hospital Ohhzcsjbtd2559 [place], [address] VLDL 20 mg/dL (Normal) Range: 5-40 [...] High Risk :54 Vitamin D,25 Hydroxy Comments: [facility] Wuwjzwmqgs7721 [place], [address] Vitamin D 25-OH 43.8 ng/mL (Normal) Comments: Vitamin D 25(OH) Status Range Deficiency <20 ng/mL (50nmol/L) Insuffciency 20 - 30 ng/mL (50 - 75 nmol/L) Sufficiency 30 - 100 ng/mL (75 - 250 nmol/L) Toxicity >100 ng/mL (>250 nmol/L) :53 CBC W/Diff, Automated Comments: [facility] Bkyhiciqqb3233 [place], [address] Absolute Lymph 1.63 {X10_3/ul} (Normal) Range: [...] Range: 4.4-11.0 :53 Comprehensive Metabolic Profil Comments: [facility] Fapmjxrzxe0441 [place], [address] GAP 7 (Normal) Range: 5-15 CO2 32.0 [...] 70-110 :53 LDH 182 U/L (Normal) Comments: [facility] Dqlywabkaw[address] [place], [place], [address] Range: 84-246 :53 Uric Acid Comments: [facility] Rovvnujjtw9[address] [place], [place], [address] URIC 4.4 mg/dL (Normal) Range: 2.6-6.0 85-Qit-432324:49 CBC W/Diff, Auto - EPLAB Comments: At [facility] Medical Oncologypatients receive CBC w/auto Differential ONLY. Physicianwill place an order for a manual differential or Pathologistreview at his discretion. [facility] OUTPATIENT [facility]. [address] [place] [address] [address] LAUNDRY MACHINE TENDER: JOSE KOHLI DO PH:[phone] Hospital Zcqiwtknhe7[address] [place], [place], [address] Absolute Lymph 1.40 {X10_3/uL} (Normal) Range: 0.83-4.51 [...] 4.2-5.4 WBC 4.0 K/mm3 (Abnormal) Range: 4.4-11.0 41-Vyo-884481:43 CBC W/Diff, Automated Comments: [facility] Qttcqktscl7110 [facility]. [place], [place], [address] Absolute Lymph 1.46 {X10_3/ul} (Normal) Range: 0.83-4.51 [...] Serial specimen #1, #2, #3, or #4: [facility] [address] [place], [address] C-REACTIVE PROT < 2.90 mg/L (Normal) Range: 0.0-3.0 Comments: C-Reactive Protein (CRP) provides useful information for thediagnosis, therapy and monitoring of inflammatory processesand associated diseases. For the evaluation of Relative Riskfor Cardiovascular Dise ase, a High Sensitivity CRP (HSCRP)should be ordered. :43 CRP Comments: 'TROP' Serial specimen #1, #2, #3, or #4: [facility] [address] [place], [address] C-REACTIVE PROT < 2.90 mg/L (Normal) Range: 0.0-3.0 Comments: C-Reactive Protein (CRP) provides useful information for thediagnosis, therapy and monitoring of inflammatory processesand associated diseases. For the evaluation of Relative Riskfor Cardiovascular Dise ase, a High Sensitivity CRP (HSCRP)should be ordered. :43 Erythrocyte Sed Rate Comments: [facility] [address] [place], [address] SED RATE 9 mm/h (Normal) Range: 0-30 :43 ASSAY, TROPONIN, QUANTITATIVE Comments: stat; 'TROP' Serial specimen #1, #2, #3, or #4: [facility] [address] [place], [address] (aka Troponin I) (90295) TROPONIN-I < 0.02 ng/mL (Normal) Comments: TROPONIN-I EXPECTED VALUES <0.05 NEGATIVE 0.06 - 0.59 AT RISK OF [place] > OR = 0.60 SUGGEST [place] 07-Gbf-743859:15 Basic Metabolic Profile (BMP) Comments: PLEASE REDRAW PREVIOUS SPECIMENS MISLABELED'TROP' Serial specimen #1, #2, #3, or #4: 1'CKMB' Serial Specimen #1, #2 or #3? 1W[facility] Yowclvtbgi3978 [place], [address] GAP 2 (Abnormal) Range: 5-15 [...] 7-18 GLU 103 mg/dL (Normal) Range: 70-110 60-Akc-587412:15 CBC W/Diff, Automated Comments: [facility] Ntjjapcadz5908 [place], [address] Absolute Lymph 1.99 {X10_3/ul} (Normal) [...] 4.2-5.4 WBC 5.8 K/mm3 (Normal) Range: 4.4-11.0 72-Xbh-226779:15 CK-MB Quantitative and Index Comments: PLEASE REDRAW PREVIOUS SPECIMENS MISLABELED'TROP' Serial specimen #1, #2, #3, or #4: 1'CKMB' Serial Specimen #1, #2 or #3? [facility] Ehjyqsppri07[address] [place], [place], [address] CKRI 0.7 % (Normal) Range: 0.0-1.4 Comments: RELATIVE INDEX >1.5% IS PRESUMPTIVELY POSITIVE CPKMB 0.6 ng/mL (Normal) Range: 0.0-5.0 Comments: CK-MB and RI Interpretation MB Relative Index Non-AMI <or= 5 NA Indeterminate > 5 <or= 4 AMI > 5 > 4 CPK TOTAL 82 U/L (Normal) Range: 26-192 76-Fbf-125878:15 Partial Thromboplast Time Comments: [facility] Tzmbrzoewh34[address] [place], [place], [address] PTT 48.2 s (Abnormal) Range: 24.1-36.2 71-Hgp-805877:15 Prothrombin Time w/INR Comments: [facility] Ljkihrwfps668[address] [place], [place], [address] INR 2.3 (Normal) PROTIME 25.3 s (Abnormal) Range: 11.7-14.9 78-Wbi-491197:15 Troponin-I Comments: PLEASE REDRAW PREVIOUS SPECIMENS MISLABELED'TROP' Serial specimen #1, #2, #3, or #4: 1'CKMB' Serial Specimen #1, #2 or #3? [facility] Enajljlfuy8648 [address] [place], [place], [address] TROPONIN-I < 0.02 ng/mL (Normal) Comments: TROPONIN-I EXPECTED VALUES <0.05 NEGATIVE 0.06 - 0.59 AT RISK OF IL > OR = 0.60 SUGGEST IL 64-Mpw-155203:25 Basic Metabolic Profile (BMP) Comments: Serial Specimen #1, #2 or #3? 1'TROP' Serial specimen #1, #2, #3, or #4: [facility] Wmbgjucklx8768 [address] [place], [place], [address] GAP 10 (Normal) Range: 5-15 CO2 26.0 [...] 7-18 GLU 104 mg/dL (Normal) Range: 70-110 90-Per-367571:25 BNP,B-Type NATRIURETIC PEPTIDE Comments: [facility] Kkknlvwaug15[address] [place], [place], [address] B-TYPE STEFAN PEP 94.1 pg/mL (Normal) Range: 0-100 05-Tzy-782614:25 CBC W/Diff, Automated Comments: [facility] Hykpngwtku74[address] [place], [place], [address] Absolute Lymph 2.03 {X10_3/ul} (Normal) Range: 0.83-4.51 [...] 4.2-5.4 WBC 6.0 K/mm3 (Normal) Range: 4.4-11.0 92-Vdz-609696:25 CK-MB Quantitative and Index Comments: Serial Specimen #1, #2 or #3? 1'TROP' Serial specimen #1, #2, #3, or #4: [address] [place] [address] Mmzogofypb[address]152 [address] [place], [place], [address] CKRI Test not performed % (Normal) Range: 0.0-1.4 CPKMB < 0.5 ng/mL (Normal) Range: 0.0-5.0 Comments: CK-MB and RI Interpretation MB Relative Index Non-AMI <or= 5 NA Indeterminate > 5 <or= 4 AMI > 5 > 4 CPK TOTAL 69 U/L (Normal) Range: 26-192 31-Smi-668627:25 Prothrombin Time w/INR Comments: [facility] [address] [place], [address] INR 1.0 (Normal) PROTIME 13.4 s (Normal) Range: 11.7-14.9 66-Xuw-129264:25 Troponin-I Comments: Serial Specimen #1, #2 or #3? 1'TROP' Serial specimen #1, #2, #3, or #4: [address] [place] [address] [place], [place], [address] TROPONIN-I < 0.02 ng/mL (Normal) Comments: TROPONIN-I EXPECTED VALUES <0.05 NEGATIVE 0.06 - 0.59 AT RISK OF IL > OR = 0.60 SUGGEST IL 43-Dea-946732:50 Urinalysis, Office (37398) UA - LEUKOCYTE ESTERASE Small (Normal) UA - NITRITE Negative (Normal) URINE UROBILINGN DIPAK TIMED Normal mg/dL (Normal) UA - PROTEIN Negative mg/dL (Normal) UA - PH 7.0 (Normal) UA - BLOOD Non Hemolyzed Trace (Normal) UA - SPECIFIC GRAVITY 1.015 (Normal) UA - KETONES Negative mg/dL (Normal) UA - BILIRUBIN Negative (Normal) UA - GLUCOSE Negative (Normal) 67-Rdd-879977:16 URINE ELLE CULTURE-IDENTIFICATN Comments: PATIENT NOT FASTINGPERFORMED BY: [facility]66 [address] StreetDublin [place] [id number] Information: [id number] ([id number]) Result 1 MUG (Normal) Comments: Mixed urogenital flora1,000 Colonies/mL Urine Culture,Comprehensive Final report (Normal) :58 CBC W/Diff, Automated Comments: [facility] [address] [place], [place], [address] ; non-emergent till apt Absolute Lymph 1.57 [...] Range: 4.4-11.0 :58 Comprehensive Metabolic Profil Comments: [facility] [address] [place], [place], [address] GAP 8 (Normal) Range: 5-15 CO2 30.0 [...] (Normal) Range: 70-110 :58 Hemoglobin A1c Comments: [facility] [address] [place], [address] HGB A1C 5.9 % (Normal) Range: 4.2-6.3 :58 Lipid Profile Comments: [facility] [address] [place], [address] VLDL 14 mg/dL (Normal) Range: [...] Complete Comments: How was Urine Obtained? CLEAN [facility] Junpzhfjgv[address] [place], [address] MUCUS, URINE 0 SEEN {/hpf} [...] CLARITY Sl. Cloudy (Normal) COLOR Yellow (Normal) 99-Jtk-41567:26 CBC W/Diff, Auto - EPLAB Comments: At [facility] Outpatient [facility] Medical Oncologypatients receive CBC w/auto Differential ONLY. Physicianwill place an order for a manual differential or Pathologistreview at his discretion. [facility]. [address] [place] [address] [address] LAUNDRY MACHINE TENDER: JOSE KOHLI DO PH:[phone] Hospital [address]odhvnbbh[address] [place], [address] ; ordered by Dr. Evgeny [...] 4.2-5.4 WBC 7.0 K/mm3 (Normal) Range: 4.4-11.0 7-Hov-553735:30 Basic Metabolic Profile (BMP) Comments: [facility] Iaijebqiso9[address] [place], [address] GAP 8 (Normal) Range: 5-15 CO2 27.0 [...] 7-18 GLU 84 mg/dL (Normal) Range: 70-110 6-Sil-612425:30 CBC-Complete Blood Cnt No Diff Comments: [facility] Unwmglwgiz[address] [place], [place], [address] MPV 11.8 fL (Normal) Range: 6.2-12.0 PLT [...] 4.2-5.4 WBC 6.7 K/mm3 (Normal) Range: 4.4-11.0 21-Goa-670572:37 CBC W/Diff, Auto - EPLAB Comments: At [facility] Outpatient [facility] Medical Oncologypatients receive CBC w/auto Differential ONLY. Physicianwill place an order for a manual differential or Pathologistreview at his discretion. [facility] OUTPATIENT [facility]. [address] [place] [address] [address] LAUNDRY MACHINE TENDER: JOSE KOHLI DO PH:[phone] Hospital L[address]qsunoqyt[address] [place], [place], [address] Absolute Lymph 1.77 {X10_3/uL} (Normal) Range: 0.83-4.51 [...] 4.2-5.4 WBC 4.3 K/mm3 (Abnormal) Range: 4.4-11.0 70-Jzx-245504:37 Comprehensive Metabolic Profil Comments: Serial Specimen #1, #2 or #3? 1Is Patient Taking Vitamins or Folic Acid Supplements? [facility] Fmlmtnyoab3864 [facility] [place], [address] GAP 7 (Normal) Range: 5-15 CO2 29.0 [...] 7-18 GLU 84 mg/dL (Normal) Range: 70-110 83-Czd-784154:37 Ferritin Comments: Serial Specimen #1, #2 or #3? 1Is Patient Taking Vitamins or Folic Acid Supplements? [facility] [address] [place], [address] FERRITIN 80 ng/mL (Normal) Range: 8-252 :37 Folates, (Folic Acid) Comments: Serial Specimen #1, #2 or #3? 1Is Patient Taking Vitamins or Folic Acid Supplements? [facility] [address] [place], [place], [phone] FOLATES 63.40 ng/mL (Abnormal) Range: 3.1-17.5 15-Nky-247124:37 Iron Comments: Serial Specimen #1, #2 or #3? 1Is Patient Taking Vitamins or Folic Acid Supplements? [facility] [address] EBONY [place], [address](070) IRON 71 ug/dL (Normal) Range: 50-170 90-Kvz-687512:37 Iron Binding Capacity,Total Comments: Serial Specimen #1, #2 or #3? 1Is Patient Taking Vitamins or Folic Acid Supplements? [facility] [address] [place], [address](154) TIBC 335 ug/dL (Normal) Range: 250-450 :37 LDH 162 U/L (Normal) Comments: Serial Specimen #1, #2 or #3? 1Is Patient Taking Vitamins or Folic Acid Supplements? [facility] [address] [place], [address] Range: 84-246 96-Zfl-041783:37 Uric Acid Comments: Serial Specimen #1, #2 or #3? 1Is Patient Taking Vitamins or Folic Acid Supplements? [facility] Xkkbsmgtdx44[address] [place], [address] URIC 4.5 mg/dL (Normal) Range: 2.6-6.0 65-Ptl-422894:37 Vitamin B12 1077 pg/mL (Abnormal) Comments: [facility] Jukchhrqcd[address] [place], [address] Range: 211-911 21-Eow-608344:36 CBC W/Diff, Auto - EPLAB Comments: At [facility] Outpatient [facility], [facility] Medical Oncologypatients receive CBC w/auto Differential ONLY. Physicianwill place an order for a manual differential or Pathologistreview at his discretion. [facility] OUTPATIENT [facility]. [address] [place] [address] [address] LAUNDRY MACHINE TENDER: JOSE KOHLI DO PH:[phone] Hospital Qctnukhtoy9992 [address] [place], [address] Absolute Lymph 1.97 {X10_3/uL} (Normal) Range: 0.83-4.51 [...] (Normal) Range: 4.4-11.0 :48 Vitamin D Hydroxy (83277) Comments: PATIENT WAS FASTINGPERFORMED BY: [facility]6370 [facility] [id number] Vitamin D, 25-Hydroxy 32.8 ng/mL (Normal) Range: 30.0-100.0 Comments: Vitamin D deficiency has been defined by the [place] of[place]icine and an Endocrine Society practice guideline as alevel of serum 25-OH vitamin D less than 20 ng/mL (1,2).The Endocrine Society went on to further define vitamin Dinsufficiency as a level between 21 and 29 ng/mL (2).1. IOM ([place] of [employer]). 2010. Dietary reference intakes for calcium and D. [place]: The National Academies Press.2. Jose Carlos MF, Flip SIFUENTES, David ROME, et al. Evaluation, treatment, and prevention of vitamin D deficiency: an Endocrine Society clinical practice guideline. JCEM. 2010; 96(7):1911-30. :48 CBC with auto diff Comments: PATIENT WAS FASTINGPERFORMED BY: [facility]6370 [facility] [id number] Information: [id number] (04760) Immature Grans (Abs) 0.0 {x10E3/uL} (Normal) Range: [...] PANEL, COMPREHENSIVE Comments: PATIENT WAS FASTINGPERFORMED BY: [facility]CoBacharach Institute for RehabilitationKznjwd9731 [facility] [id number] (89557) ALT (SGPT) 10 [iU]/L (Normal) Range: 0-32 [...] mg/dL (Normal) Range: 65-99 :48 LIPID PANEL (76214) Comments: PATIENT WAS FASTINGPERFORMED BY: [facility] [id number] LDL/HDL Ratio 1.2 {ratio_units} (Normal) Range: 0.0-3.2 [...] CREATININE RATIO Comments: PATIENT WAS FASTINGPERFORMED BY: [facility]70 [facility] [id number] (65258) AND (64063) Microalb/Creat Ratio 64.2 {mg/g_creat} (Abnormal) Range: 0.0-30.0 Microalbumin, Urine 46.3 ug/mL (Abnormal) Range: 0.0-17.0 Creatinine, Urine 72.1 mg/dL (Normal) Range: 15.0-278.0 :48 Hemoglobin Glyclated (HGB A1C) Comments: PATIENT WAS FASTINGPERFORMED BY: [employer]70 [facility] [id number] (87267) Hemoglobin A1c 5.7 % (Abnormal) Range: 4.8-5.6 Comments: . Pre-diabetes: 5.7 - 6.4 Diabetes: >6.4 Glycemic control for adults with diabetes: <7.0 01-Fln-977170:28 CBC W/Diff, Auto - EPLAB Comments: At [facility] Out[facility] Medical Oncologypatients receive CBC w/auto Differential ONLY. Physicianwill place an order for a manual differential or Pathologistreview at his discretion. [facility]. [address] [place] [address] [address] LAUNDRY MACHINE TENDER: JOSE KOHLI DO PH:[phone] performed at:[facility] Laborato [address] [place], [place] [address] ; handled by evgeny Absolute Lymph 1.89 [...] W/Diff, Auto - EPLAB Only Comments: At [facility] Outpatient [facility] Medical Oncologypatients receive CBC w/auto Differential ONLY. Physicianwill place an order for a manual differential or Pathologistreview at his discretion. [facility] OUTPATIENT [facility]. [address] [place] [address] [place] [address] LAUNDRY MACHINE TENDER: JOSE KOHLI DO PH:[phone] performed at:[facility] Laborato [address] [place], [place] [address] Absolute Neut 2.6 {X10_3/uL} (Normal) Range: 2.0-7.7 [...] Serum Creatinine AND GFR Comments: Test performed at:[facility] [address] [place], [place] [address] EST GFR - AA 62 mL/min (Normal) EST GFR 51 mL/min (Abnormal) CREAT,SERUM 1.12 mg/dL (Normal) Range: 0.55-1.20 Comments: Please note revised CREATININE reference range /22/2015. 7-Rbv-547921:38 CBC W/Diff, Auto - EPLAB Only Comments: At [facility] Outpatient [facility] Medical Oncologypatients receive CBC w/auto Differential ONLY. Physicianwill place an order for a manual differential or Pathologistreview at his discretion. [facility]. [address] [place] [address] [address] LAUNDRY MACHINE TENDER: JOSE KOHLI DO PH:[phone] performed at:[facility] Laborato [address] [place], [place] [address] Absolute Neut 3.0 {X10_3/uL} (Normal) Range: 2.0-7.7 [...] 4.2-5.4 WBC 5.8 K/mm3 (Normal) Range: 4.4-11.0 00-Osz-580011:12 FLURESCNT ANTIB SCRN EA Comments: PATIENT WAS FASTINGPERFORMED BY: LabCoBacharach Institute for RehabilitationHlahwy2353 [facility] [id number] Information: [id number] (31795) celiac profile Immunoglobulin A, Qn, Serum 119 [...] IMMUNOASSAY, ANALYTE Comments: PATIENT WAS FASTINGPERFORMED BY: [facility] [place] [id number] (NON-INFECT) (92875) celiac profile Mitochondrial (M2) Antibody <20.0 {Units} (Normal) Range: 0.0-20.0 Comments: Negative 0.0 - 20.0 Equivocal 20.1 - 24.9 Positive >24.9 . Mitochondrial (M2) Antibodies are found in 90-96% of patients with primary biliary cirrhosis. 37-Pje-666497:12 IGA/IGD/IGG/IGM-EACH (87670) Comments: PATIENT WAS FASTINGPERFORMED BY: [facility] [id number] Immunoglobulin E, Total 2 {IU/mL} (Normal) Range: 0-100 Immunoglobulin M, Qn, Serum 72 mg/dL (Normal) Range: 40-230 Immunoglobulin G, Qn, Serum 884 mg/dL (Normal) Range: 700-1600 19-Evd-763099:12 METABOLIC PANEL, COMPREHENSIVE Comments: PATIENT WAS FASTINGPERFORMED BY: [facility] [id number] (88874) ALT (SGPT) 12 [iU]/L (Normal) Range: 0-32 [...] Glucose, Serum 94 mg/dL (Normal) Range: 65-99 51-Ybq-072645:12 LIPID PANEL (36535) Comments: PATIENT WAS FASTINGPERFORMED BY: LabCoBacharach Institute for RehabilitationYbeccs2277 [facility] [id number] LDL/HDL Ratio 1.2 {ratio_units} (Normal) Range: 0.0-3.2 [...] Cholesterol, Total 168 mg/dL (Normal) Range: 100-199 8-Xoq-082658:25 HgA1C , Office (77662) HgA1C , Office 5.8 % (Normal) Range: 4.6 - 7.1 67-Kvf-426615:0 COLON BIOPSY (CHOOSE See Note (Normal) Comments: Test performed at:[facility] [address] [place], [place] [address] 4 SITE) Comments: Patient: LUPE LOPEZ : 1945 (69/F) Acct Num: [id number] Phys: Samm Boo Unit Num: [id number] Loc: LABSPEC Specimen: [id number] Received: 09/13/14 - 1610 Spec Type: C OLON BX TISSUES TISSUES: GROSS DESCRIPTION Received is one container labeled with the patient name and designated biopsy polyp at mid transverse. The specimen consists of one irreg ular fragment of light gonzalez soft tissue that measures 0.3 x 0.2 x 0.1 cm. The specimen is totallysubmitted in one cassette. / AM: 09/17/14 TC:5 CPT: 15439 HEADER OPERATION: Colonoscopy with biopsy PRE-OP DIAGNOSIS: Anemia TISSUE SUBMITTED: Biopsy polyp - mid transverse - rule out adenoma MICROSCOPIC DIAGNOSIS Mid transverse colon polyp, biopsy: Tubular adenoma. AM: 09/17 Signed Jose Kohli 09/17/14 <signature on file> :58 CBC W/Diff, Auto - EPLAB Only Comments: At [facility] Outpatient [facility] Medical Oncologypatients receive CBC w/auto Differential ONLY. Physicianwill place an order for a manual differential or Pathologistreview at his discretion. [facility] OUTPATIENT [facility]. [address] [place] [address] [address] LAUNDRY MACHINE TENDER: JOSE KOHLI DO PH:[phone] performed at:[facility] [id number] [place], [place] [id number] Absolute Neut 1.6 {X10_3/uL} Range: 2.0-7.7 (Abnormal) [...] BIOPSY See Note (Normal) Comments: Test performed at:[facility] [address] [place] [address] 35[address] 00 Comments: Patient: LUPE LOPEZ : 1945 (69/F) Acct Num: [id number] Phys: Evgeny Farmer Unit Num: [id number] Loc: [facility] Specimen: [id number] Received: 07/31/14 - 1215 Spec Type: BMB TISSUES TISSUES: ADDENDUM Addendum Number 1 CYTOGENETICS REPORT FROM [employer] INTERPRETATION AND COMMENTS: Karyotype: 46,XX[20] A normal female karyotype w as observed in twenty metaphases analyzed. Please see complete report in e-chart or EMR for further details Addendum Signed Jose [facility] 5 <signature on file> BONE MARROW [...] and cytogenetics. / AM: 07/31/14 TC:5 CPT: 33865, 27052, 71669 x2, 52236 x3, 61216 BONE MARROW STUDY CBC DATE: 07/31/14 WBC [...] Highlights myeloid elements and megakaryocytes. COMMENT IHC ([id number]) supports the above diagnosis. Flow cytometry study from [facility] shows no phenotypic evidence of excess blasts, [...] IMMUNOHISTOCHEMISTRY See Note (Normal) Comments: Test performed at:[facility] [address] [place], [place] [id number] 00 Comments: Patient: LUPE LOPEZ : 1945 (69/F) Acct Num: [id number] Phys: Evgeny Farmer Unit Num: [id number] Loc: [facility] Specimen: [id number] Received: 08/01/14 1158 Spec Type: IMMUN O TISSUES TISSUES: SPECIMEN INFORMATION: Tissue Source: Bone marrow biopsy and clot Clinical Info: Anemia Specimen Number: [id number] A AND B CPT code: 95104, 09026 x19 METHOD OLOGY: Deparaffinized sections of prefer/formalin-fixed [...] (11E3) negative BCL-2 (BCL2/100/D5) negative BCL- 6 (LN22/KJ384B/A8) negative Cyclin D 1/BCL-1 (SP4) negative Block B CD3 (LN10/PS1) positive CD5 (4C7/SP10) positive CD10 (56C6) negative CD20 (MJ1/L26) negative CD23 (1B12) negative CD45 (X16/99/ RP2/18) positive CD79a (11E3) negative BCL-2 (BCL2/100/D5) positive BCL-6 (LN22/ER014R/A8) nega tive Cyclin D1/BCL-1 (SP4) negative These tests were developed and their performance characteristics determined by [facility]. They may not have been cleared or approved by the U.S. Food and Drug Administration. The FDA has determined that such clearance or approval is not necessary. INTERPRETATION: A. Bone marrow biopsy: Polytypic lymphoid aggregates. B. Bone marrow clot: Polytypic lymphoid aggregates. Comment: There is no evidence of lymphoma. AM:jeniffer 08/02/14 PHYSICIAN AND INSTITUTION [place] [id number] Signed Jose [facility] 08/06/14 <signature on file> 6-Dis-880153:59 CBC W/Diff, Auto - EPLAB Only Comments: At [facility] Outpatient [facility] Medical Oncologypatients receive CBC w/auto Differential ONLY. Physicianwill place an order for a manual differential or Pathologistreview at his discretion. [facility]. [address] [place] [id number] LAUNDRY MACHINE TENDER: JOSE KOHLI DO PH:[phone] performed at:[facility] Laborato [address] [place] [address] Absolute Neut 2.3 {X10_3/uL} (Normal) [...] 4.2-5.4 WBC 5.2 K/mm3 (Normal) Range: 4.4-11.0 29-Pzv-24975:23 CBC W/Diff, Auto - EPLAB Only Comments: At [facility] [place] patientsreceive CBC w/auto Differential ONLY. Physician will placean order for a manual differential or Pathologist review athis discretion. [facility]. [address] [place] [address] [address] LAUNDRY MACHINE TENDER: JOSE KOHLI DO PH:[phone] performed at:[facility] [address] [place] [address] Absolute Neut 2.0 {X10_3/uL} (Normal) [...] 4.2-5.4 WBC 4.0 K/mm3 (Abnormal) Range: 4.4-11.0 10-Odz-39841:23 Comprehensive Metabolic Profil Comments: Serial Specimen #1, #2 or #3? 1Test performed at:[facility] [address] [place] [address] GAP 6 (Normal) Range: 5-15 CO2 30.0 [...] Specimen #1, #2 or #3? 1Test performed at:[facility] [address] [place] [address] FERRITIN 255 ng/mL (Abnormal) Range: 8-252 :23 Iron Comments: Serial Specimen #1, #2 or #3? 1Test performed at:[facility] [address] [place] [address] IRON 72 ug/dL (Normal) Range: 50-170 :23 Iron Binding Capacity,Total Comments: Serial Specimen #1, #2 or #3? 1Test performed at:[facility] [address] [place] [address] TIBC 320 ug/dL (Normal) Range: 250-450 :23 LDH 176 U/L (Normal) Comments: Serial Specimen #1, #2 or #3? 1Test performed at:[facility] [address] [place] [address] Range: 87-241 :23 Uric Acid Comments: Serial Specimen #1, #2 or #3? 1Test performed at:[facility] [address] [place] [address] URIC 5.2 mg/dL (Normal) Range: 2.6-6.0 :45 Copper, Serum or Plasma Comments: Test performed at:[address] [place] [address] COPPER 112 ug/dL (Normal) Range: 72-166 Comments: Detection Limit = 5Performed at: [facility] [address], [place] [id number] Director: Scot Nuñez PhD, Phone: [phone] at: [address] [place], [place] [id number] Director: Satish Mayer MD, Phone: [phone] 25-Jun-20149:45 Lead, Blood Adult 16+yrs Comments: Test performed at:[facility] [address] [facility] [place] [address] LEAD *Form (Normal) Comments: None Detected Environmental Exposure: WHO Recommendation <20 Occupational Exposure: OSHA Lead Std 40 NIKI 30 Detection Limit = 1 0-Pup-236045:43 Comprehensive Metabolic Profil Comments: Serial Specimen #1, #2 or #3? 1Is Patient Taking Vitamins or Folic Acid Supplements? NTest performed at:[facility] [address] [place] [address] GAP 6 (Normal) Range: 5-15 [...] 7-18 GLU 86 mg/dL (Normal) Range: 70-110 1-Zle-374399:43 Direct Antiglobulin Diann YUVAL Comments: Test performed at:[facility] [address] [place] [address] DIRECT DIANN= NEG w/POLYSPECIFIC (Normal) 6-Swv-292040:43 Erythropoietin Comments: Is Patient Fasting? NTest performed at:[facility] [address] [place] [address] ERYTHROP [id number] 24.8 m[iU]/mL (Abnormal) Range: 2.6-18.5 1-Dny-654430:43 Ferritin Comments: Serial Specimen #1, #2 or #3? 1Is Patient Taking Vitamins or Folic Acid Supplements? NTest performed at:[address] [place] [address] FERRITIN 11 ng/mL (Normal) Range: 8-252 9-Rhn-243741:43 Folates, (Folic Acid) Comments: Serial Specimen #1, #2 or #3? 1Is Patient Taking Vitamins or Folic Acid Supplements? NTest performed at:[facility] [address] [place] [address] FOLATES 48.80 ng/mL (Abnormal) Range: 3.1-17.5 :43 Haptoglobin Comments: Is Patient Fasting? NTest performed at:[facility] [address] [facility] [place] [address] HAPTOGLOB 1628 224 mg/dL (Abnormal) Range: 34-200 Comments: Performed at: - [facility] [id number] Director: Scot Nuñez PhD, Phone: [phone] 6-Bvn-547632:43 THEE + Protein Elect, Serum Comments: Is Patient Fasting? NTest performed at:[facility] [address] [place] [address] NOTE: Comment (Normal) Comments: Protein electrophoresis scan will follow via computer,mail, or salt miner delivery. THEE RESULT,S Comment: (Normal) Comments: THEE SHOWS ATYPICAL LAMBDA. A/G RATIO 1.4 (Normal) Range: 0.7-2.0 GLOBULIN, TOTAL 2.8 g/dL (Normal) Range: 2.0-4.5 M-SPIKE (Normal) Comments: Not Observed GAMMA GLOBULIN 0.9 g/dL (Normal) Range: 0.5-1.6 BETA GLOBULIN 0.9 g/dL (Normal) Range: 0.6-1.3 HIKCG-0-ZVMB 0.9 g/dL (Normal) Range: 0.4-1.2 SSGUA-2-BHII 0.3 g/dL (Normal) Range: 0.1-0.4 ALBUMIN 3.9 g/dL (Normal) Range: 3.2-5.6 IMMUNOGL M 1792 69 mg/dL (Normal) Range: 40-230 IMMUNO A 1784 133 mg/dL (Normal) Range: 91-414 IMMUNO G 1776 959 mg/dL (Normal) Range: 700-1600 PROTEIN,TOTAL 6.7 g/dL (Normal) Range: 6.0-8.5 7-Fam-107282:43 Iron Binding Capacity,Total Comments: Serial Specimen #1, #2 or #3? 1Is Patient Taking Vitamins or Folic Acid Supplements? NTest performed at:[facility] [address] [place] [address] TIBC 407 ug/dL (Normal) Range: 250-450 9-Bca-331737:43 Knierim Lambda Light Chains Comments: Is Patient Fasting? NTest performed at:[facility] [address] [place] [address] KAPPA/LAMBDA % 1.35 (Normal) Range: 0.26-1.65 FR LAMBDA LT CH 18.72 mg/L (Normal) Range: 5.71-26.30 FR KAPPA LT CHN 25.25 mg/L (Abnormal) Range: 3.30-19.40 1-Rgt-218561:43 LDH 173 U/L (Normal) Comments: Serial Specimen #1, #2 or #3? 1Is Patient Taking Vitamins or Folic Acid Supplements? NTest performed at:[facility] [address] [place] [address] Range: 87-241 2-Hjf-259183:43 Retic Panel Comments: Test performed at:[facility] [address] [place] [address] IPF 2.5 % (Normal) Range: 1.0-7.9 [...] 3.00-15.90 RETIC 0.97 % (Normal) Range: 0.5-1.5 7-Umn-870426:43 Thyroid Stim Hormone (TSH) Comments: Serial Specimen #1, #2 or #3? 1Is Patient Taking Vitamins or Folic Acid Supplements? NTest performed at:[facility] [address] [place] [address] TSH 1.87 {uIU/mL} (Normal) Range: 0.358-3.74 :43 Uric Acid Comments: Serial Specimen #1, #2 or #3? 1Is Patient Taking Vitamins or Folic Acid Supplements? NTest performed at:[facility] [address] [place] [address] URIC 5.0 mg/dL (Normal) Range: 2.6-6.0 6-Dmv-727570:43 Vitamin B12 548 pg/mL (Normal) Comments: Test performed at:[facility] [address] [place] [id number] Range: 211-911 1-Keg-560132:42 CBC W/Diff, Auto - EPLAB Only Comments: At [facility] Outpatient [facility], [facility] patientsreceive CBC w/auto Differential ONLY. Physician will placean order for a manual differential or Pathologist review athis discretion. [facility]. [address] [place] [address] [place] [address] LAUNDRY MACHINE TENDER: JOSE KOHLI DO PH:[phone] performed at:[facility] [address] [place] [address] Absolute Neut 2.6 {X10_3/uL} (Normal) [...] PANEL, COMPREHENSIVE Comments: PATIENT WAS FASTINGPERFORMED BY: [facility]CoB[facility] for RehabilitationZasobn1326 [facility] [id number] (69589) ALT (SGPT) 5 [iU]/L (Normal) Range: 0-32 [...] mg/dL (Normal) Range: 65-99 :56 LIPID PANEL (44119) Comments: PATIENT WAS FASTINGPERFORMED BY: [facility] [id number] LDL/HDL Ratio 1.3 {ratio_units} (Normal) Range: 0.0-3.2 [...] DIFF WBC Comments: PATIENT WAS FASTINGPERFORMED BY: [employer]70 [facility] [id number] Information: [id number] (38659) Immature Grans (Abs) 0.0 {x10E3/uL} (Normal) Range: [...] 3.77-5.28 WBC 4.8 {x10E3/uL} (Normal) Range: 3.4-10.8 7-Wid-559271:44 Protein Electro, Random Urine Comments: PATIENT WAS FASTINGPERFORMED BY: [facility]6370 [facility] [id number] Please note: SPRCS (Normal) Comments: Protein electrophoresis scan will follow via computer, mail, orcourier delivery. M-Abhinav, % Not Observed % (Normal) Gamma Globulin, U 19.9 % (Normal) Beta Globulin, U 25.8 % (Normal) Yxgbw-2-Yikkxgvj, U 12.8 % (Normal) Rfriw-8-Jtyzfsnr, U 1.3 % (Normal) Albumin, U 40.2 % (Normal) Protein,Total,Urine 13.5 mg/dL (Normal) Range: 0.0-15.0 :44 Protein Electro.,S Comments: PATIENT WAS FASTINGPERFORMED BY: [facility]6[address] [facility] [id number]; will review on 05/07 appt Please note: SPRCS (Normal) Comments: Protein electrophoresis scan will follow via computer, mail, orcourier delivery. A/G Ratio 1.2 (Normal) Range: 0.7-2.0 Globulin, Total 3.0 g/dL (Normal) Range: 2.0-4.5 M-Abhinav Not Observed g/dL (Normal) Gamma Globulin 1.0 g/dL (Normal) Range: 0.5-1.6 Beta Globulin 0.8 g/dL (Normal) Range: 0.6-1.3 Yratf-3-Senukksk 0.9 g/dL (Normal) Range: 0.4-1.2 Uwghn-6-Xlhqhnfp 0.3 g/dL (Normal) Range: 0.1-0.4 Albumin 3.7 g/dL (Normal) Range: 3.2-5.6 Protein, Total, Serum 6.7 g/dL (Normal) Range: 6.0-8.5 Written Authorization WAR (Normal) Comments: PATIENT WAS FASTINGPERFORMED BY: [facility]6[address] [facility] [id number] :44 Comments: Written Authorization Received.Authorization received from ENRIKE JAIMES [phone] by Jyothi Boland :44 LIPID PANEL (00089) Comments: PATIENT WAS FASTINGPERFORMED BY: [facility]6[address] [facility] [id number] LDL/HDL Ratio 1.9 {ratio_units} (Normal) Range: 0.0-3.2 [...] Cholesterol, Total 211 mg/dL (Abnormal) Range: 100-199 7-Yms-182745:37 FECAL OCCULT- Tubes sent home (95418) FECAL OCCULT HGB ASSAY, QUAL, 1-3 SIMULTANEOU positive (Normal) 2-Kde-827930:44 [facility]OC[facility]TE [facility] Comments: PATIENT WAS FASTINGPERFORMED BY: [facility] [id number] (83832) Reticulocyte Count 1.6 % (Normal) Range: 0.6-2.6 5-Eyk-941123:44 LDH (LD) (LACTATE DEHYDROGENASE) Comments: PATIENT WAS FASTINGPERFORMED BY: [facility] [id number] (76478) LDH 207 [iU]/L (Normal) Range: 119-226 6-Zyj-800040:44 IRON BINDING CAPACITY (TIBC) Comments: PATIENT WAS FASTINGPERFORMED BY: [facility] [id number] (91854) Iron Saturation 16 % (Normal) Range: 15-55 Iron, Serum 50 ug/dL (Normal) Range: 35-155 UIBC 270 ug/dL (Normal) Range: 150-375 Iron Bind.Cap.(TIBC) 320 ug/dL (Normal) Range: 250-450 6-Lsh-560775:44 FERRITIN (29162) Comments: PATIENT WAS FASTINGPERFORMED BY: [employer]70 [facility] [id number] Ferritin, Serum 84 ng/mL (Normal) Range: 15-150 8-Vvf-844363:44 CBC W/AUTO DIFF WBC (44955) Comments: PATIENT WAS FASTINGPERFORMED BY: [employer] [place]6370 [facility] [id number] Immature Grans (Abs) 0.0 {x10E3/uL} (Normal) Range: [...] CREATININE RATIO Comments: PATIENT WAS FASTINGPERFORMED BY: [facility]6370 [facility] [id number] (33270) AND (22265) Microalb/Creat Ratio 21.9 {mg/g_creat} (Normal) Range: 0.0-30.0 Microalbumin, Urine 22.0 ug/mL (Abnormal) Range: 0.0-17.0 Creatinine, Urine 100.3 mg/dL (Normal) Range: 15.0-278.0 8-Xid-743264:44 Hemoglobin Glyclated (HGB A1C) Comments: PATIENT WAS FASTINGPERFORMED BY: [facility]6[address] [facility] [id number] (55176) Hemoglobin A1c 5.5 % (Normal) Range: 4.8-5.6 Comments: . Increased risk for diabetes: 5.7 - 6.4 Diabetes: >6.4 Glycemic control for adults with diabetes: <7.0 :39 Microscopic Examination Comments: PATIENT NOT FASTINGPERFORMED BY: [facility]6[address] [facility] [id number] Bacteria Few (Normal) Mucus Threads Present (Normal) Epithelial Cells (non renal) 0-10 {/hpf} (Normal) Range: 0 - 10 RBC 0-2 {/hpf} (Normal) Range: 0 - 2 WBC 6-10 {/hpf} (Abnormal) Range: 0 - 5 :37 D-Dimer (77267) Comments: PATIENT NOT FASTINGPERFORMED BY: [facility]6[address] [facility] [id number] Information: [id number] D-Dimer 0.84 {mg/L_FEU} (Abnormal) Range: 0.00-0.49 Comments: In conjunction with a non-high clinical probability assessment, anormal (<0.50 mg/L FEU) result excludes deep vein thrombosis (DVT)and pulmonary embolism (PE) with high sensitivity. :39 Vitamin D Hydroxy (61423) Comments: PATIENT NOT FASTINGPERFORMED BY: [facility]6[address] [facility] [id number] Vitamin D, 25-Hydroxy 38.7 ng/mL (Normal) Range: 30.0-100.0 Comments: Vitamin D deficiency has been defined by the [place] of[place] and an Endocrine Society practice guideline as alevel of serum 25-OH vitamin D less than 20 ng/mL (1,2).The Endocrine Society went on to further define vitamin Dinsufficiency as a level between 21 and 29 ng/mL (2).1. IOM ([place] [employer]). 2010. Dietary reference intakes for calcium and D. [place]: The National Academies Press.2. Jose Carlos MF, Flip SIFUENTES, David ROME, et al. Evaluation, treatment, and prevention of vitamin D deficiency: an Endocrine Society clinical practice guideline. JCEM. 2010; 96(7):1911-30. 58-Hwf-091605:39 Valproic Acid (75219) Comments: PATIENT NOT FASTINGPERFORMED BY: CB [facility] Tz[address]yaj[address] [place] [id number] Valproic Acid (Depakote),S 105 ug/mL (Abnormal) Range: 50-100 Comments: Detection Limit = 4 <4 indicates None Detected . Toxicity may occur at levels of 100-500. Measurements of free unbound valproic acid may improve the assess- ment of clinical response.Patient drug level exceeds published reference range. Evaluateclinically for signs of potential toxicity. 22-Ujq-902322:39 VITAMIN B-12 (CYANOCOBALAMIN) Comments: PATIENT NOT FASTINGPERFORMED BY: CB [facility] Iumnjk[address] [place] [id number] (01397) Vitamin B12 1017 pg/mL (Abnormal) Range: 211-946 14-Utr-093214:39 FERRITIN (88572) Comments: PATIENT NOT FASTINGPERFORMED BY: CB [facility] Soxxbp[address] [place] [id number] Ferritin, Serum 77 ng/mL (Normal) Range: 15-150 :39 IRON (72588) Comments: PATIENT NOT FASTINGPERFORMED BY: [facility] Vlssan42[address] [place] [id number] Iron, Serum 32 ug/dL (Abnormal) Range: 35-155 97-Oae-434900:39 CBC W/AUTO DIFF WBC Comments: PATIENT NOT FASTINGPERFORMED BY: CB [facility] [address]ztb16[address] Road[address] [place] [id number] Information: [id number],2ND ORDER NO DRAW F EE (27374) Immature Grans (Abs) 0.0 {x10E3/uL} (Normal) Range: [...] 3.77-5.28 WBC 6.2 {x10E3/uL} (Normal) Range: 3.4-10.8 77-Oiq-375455:39 TSH (17000) Comments: PATIENT NOT FASTINGPERFORMED BY: [facility]CoB[facility]ar[facility] Institute for RehabilitationNcuypb5950 [facility] [id number] TSH 1.800 {uIU/mL} (Normal) Range: 0.450-4.500 54-Bpa-404877:39 URINALYSIS, W/ MICRO (51188) Comments: PATIENT NOT FASTINGPERFORMED BY: [facility]CoB[facility] Institute for RehabilitationSyyctr9149 [facility] [id number] Microscopic Examination See below: (Normal) Comments: Microscopic was indicated and was performed. Nitrite, Urine Negative (Normal) Urobilinogen,Semi-Qn 0.2 mg/dL (Normal) Range: 0.0-1.9 Bilirubin Negative (Normal) Occult Blood Negative (Normal) Ketones Negative (Normal) Glucose Negative (Normal) Protein Negative (Normal) WBC Esterase 1+ (Abnormal) Appearance Clear (Normal) Urine-Color Yellow (Normal) pH 6.5 (Normal) Range: 5.0-7.5 Specific [place] 1.013 (Normal) Range: 1.005-1.030 82-Fdq-470006:39 METABOLIC PANEL, COMPREHENSIVE Comments: PATIENT NOT FASTINGPERFORMED BY: [facility] Kdrapu3917 Stephanie BurrellNovant Health [facility] [id number] (72158) ALT (SGPT) 5 [iU]/L (Normal) Range: 0-32 [...] Syncope Planned Observations CBC W/AUTO DIFF WBC (64259)Indication: Hypertension, benign On: :29 Request METABOLIC PANEL, COMPREHENSIVE (26495)Indication: Hypertension, benign On: 5-Dml-819364:29 Request CBC with auto diff (51859)Indication: Elevated hemoglobin A1c On: 06-Rub-144441:16 Request METABOLIC PANEL, COMPREHENSIVE (38907)Indication: Elevated hemoglobin A1c On: 36-Gsy-175723:16 Request HGB A1C (26198)Indication: Elevated hemoglobin A1c On: 85-Pyl-618011:16 Request LIPID PANEL (72924)Indication: Other hyperlipidemia On: 72-Gmm-138099:16 Request TSH (11092)Indication: Abnormal TSH On: 37-Oqc-970170:09 Request TSH (THYROID STIMULATING HORMONE) (34236)Indication: Abnormal TSH On: 29-Ylr-817912:15 Request LIPID PANEL (68401)Indication: Other hyperlipidemia On: 27-Dmf-879570:14 Request CBC with auto diff (35264)Indication: Elevated hemoglobin A1c On: 69-Cwo-946451:14 Request METABOLIC PANEL, COMPREHENSIVE (38072)Indication: Elevated hemoglobin A1c On: 99-Cvp-358039:14 Request HGB A1C (36475)Indication: Elevated hemoglobin A1c On: 31-Abp-708245:14 Request CBC W/AUTO DIFF WBC (94448)Indication: Anemia On: 49-Tss-305001:30 Request CBC with auto diff (59288)Indication: Anemia On: 64-Anf-739196:02 Request METABOLIC PANEL, COMPREHENSIVE (21213)Indication: Impaired Fasting Glucose (Renamed from Elevated fasting blood sugar) On: 67-Xtn-539724:02 Request TSH (69664)Indication: Abnormal TSH On: 52-Bzh-431278:01 Request SED RATE ERYTHROCYTE (95783)Indication: Anemia On: :58 Request C-REACTIVE PROTEIN (95280)Indication: Anemia On: :58 Request FOLIC ACID SERUM (18145)Indication: Anemia On: :58 Request VITAMIN B-12 (CYANOCOBALAMIN) (90032)Indication: Anemia On: :58 Request IGA/IGD/IGG/IGM-EACH (72792)Indication: Anemia On: :33 Request CBC W/AUTO DIFF WBC (06859)Indication: Impaired Fasting Glucose (Renamed from Elevated fasting blood sugar) On: : Request METABOLIC PANEL, COMPREHENSIVE (38509)Indication: Impaired Fasting Glucose (Renamed from Elevated fasting blood sugar) On: : Request Vitamin D Hydroxy (51650)Indication: Other osteoporosis On: :22 Request CBC with auto diff (68008)Indication: Anemia On: :22 Request TSH (THYROID STIMULATING HORMONE) (31389)Indication: Abnormal TSH On: :21 Request HGB A1C (73694)Indication: Impaired Fasting Glucose (Renamed from Elevated fasting blood sugar) On: :21 Request serum immunofixation (54974)Indication: Anemia On: : Request urine immunofixation (54678)Indication: Anemia On: :21 Request LIPID PANEL (19907)Indication: Other hyperlipidemia On: :15 Request METABOLIC PANEL, COMPREHENSIVE (76187)Indication: Hypertension, benign On: 36-Qbx-290509:14 Request LIPID PANEL (63211)Indication: Fibromyalgia (Renamed from Diffuse myofascial pain syndrome) On: 03-Isz-907736:14 Request TSH (THYROID STIMULATING HORMONE) (30639)Indication: Abnormal TSH On: :15 Request HGB A1C (83504)Indication: Impaired Fasting Glucose (Renamed from Elevated fasting blood sugar) On: :15 Request CBC with auto diff (17995)Indication: Hypertension, benign On: :15 Request METABOLIC PANEL, COMPREHENSIVE (58690)Indication: Hypertension, benign On: 1-Lnc-372872:15 Request LIPID PANEL (68856)Indication: Other hyperlipidemia On: :14 Request ASSAY, TROPONIN, QUANTITATIVE (aka Troponin I) (89992)Indication: Atypical chest pain On: 6-Ssm-117023:02 Request TSH (34371)Indication: Abnormal TSH On: 8-Dxa-947577:56 Request CBC WITH MANUAL DIFF (06308)Indication: Other specified nutritional anemias On: :48 Request Comments: 1 month TSH (THYROID STIMULATING HORMONE) (57064)Indication: Hypertension, benign On: 6-Ltq-508221:15 Request Iron (61974)Indication: Anemia On: 4-Lrd-846748:59 Request METABOLIC PANEL, COMPREHENSIVE (80034)Indication: Other osteoporosis On: :01 Request Vitamin D Hydroxy (38253)Indication: Other osteoporosis On: :37 Request LIPID PANEL (68520)Indication: Other hyperlipidemia On: :36 Request HGB A1C (65912)Indication: Impaired Fasting Glucose (Renamed from Elevated fasting blood sugar) On: :35 Request MICROALBUMIN: CREATININE RATIO (55376) AND (03757)Indication: Impaired Fasting Glucose (Renamed from Elevated fasting blood sugar) On: :35 Request Metabolic Panel, Comprehensive (59905)Indication: Gastroenteritis On: 87-Ehb-811804:09 Request CBC, Platelets & Auto Diff (33440)Indication: Gastroenteritis On: :09 Request Sed Rate Erythrocyte (41888)Indication: Gastroenteritis On: 82-Xae-221412:09 Request CBC WITH MANUAL DIFF (23543)Indication: Anemia On: :12 Request Comments: 6 weeks TSH (20573)Indication: Abnormal TSH On: :11 Request Comments: 6 weeks VITAMIN B-12 (CYANOCOBALAMIN) (06214)Indication: Anemia On: :39 Request TSH (79698)Indication: Abnormal TSH On: :40 Request CBC W/AUTO DIFF WBC (63938)Indication: Anemia On: :40 Request TSH (31145)Indication: Abnormal TSH On: 09-Uva-83063:25 Request Comments: ADD ON METABOLIC PANEL, COMPREHENSIVE (16516)Indication: Impaired Fasting Glucose (Renamed from Elevated fasting blood sugar) On: 55-Sjm-[id number]:43 Request Anti-TPO Antibody ([id number])Indication: Abnormal TSH On: :42 Request T4, FREE (THYROXINE) ([id number])Indication: Abnormal TSH On: :42 Request T3, FREE (TRIDOTHYRONINE) ([id number])Indication: Abnormal TSH On: :42 Request RHEUMATOID FACTOR-QUANT ([id number])Indication: Chronic right shoulder pain On: : Request SED RATE ERYTHROCYTE ([id number])Indication: Chronic right shoulder pain On: :32 Request C-REACTIVE PROTEIN ([id number])Indication: Chronic right shoulder pain On: :32 Request CBC W/AUTO DIFF WBC ([id number])Indication: Hypertension, benign On: :31 Request METABOLIC PANEL, COMPREHENSIVE ([id number])Indication: Hypertension, benign On: :31 Request LIPID PANEL ([id number])Indication: Other hyperlipidemia On: : Request TSH ([id number])Indication: Chest pain at rest On: :31 Request HGB A1C ([id number])Indication: Impaired Fasting Glucose (Renamed from Elevated fasting blood sugar) On: :00 Request CBC with auto diff ([id number])Indication: Impaired Fasting Glucose (Renamed from Elevated fasting blood sugar) On: 6-Nxi-474528:00 Request METABOLIC PANEL, COMPREHENSIVE ([id number])Indication: Impaired Fasting Glucose (Renamed from Elevated fasting blood sugar) On: :00 Request LIPID PANEL ([id number])Indication: Other hyperlipidemia On: 4-Som-520534:00 Request VITAMIN B-12 (CYANOCOBALAMIN) ([id number])Indication: Other specified nutritional anemias On: 8-Bcl-393166:59 Request Vitamin D Hydroxy ([id number])Indication: Other osteoporosis On: :59 Request CBC (AUTO) ([id number])Indication: Other osteoporosis On: :48 Request Vitamin D Hydroxy ([id number])Indication: Other osteoporosis On: :48 Request METABOLIC PANEL, COMPREHENSIVE ([id number])Indication: Other hyperlipidemia On: :48 Request LIPID PANEL ([id number])Indication: Other hyperlipidemia On: :48 Request SED RATE ERYTHROCYTE ([id number])Indication: Chest pain, unspecified type On: :39 Request Comments: stat C-REACTIVE PROTEIN ([id number])Indication: Chest pain, unspecified type On: :39 Request Comments: stat CBC W/AUTO DIFF WBC ([id number])Indication: Chest pain, unspecified type On: :39 Request Comments: stat Hemoglobin Glyclated (HGB A1C) ([id number])Indication: Impaired Fasting Glucose (Renamed from Elevated fasting blood sugar) On: 14-Ylm-443914:50 Request URINALYSIS, W/ MICRO ([id number])Indication: Hypertension, benign On: :49 Request CBC with auto diff ([id number])Indication: Other specified nutritional anemias On: 01-Nso-171457:49 Request METABOLIC PANEL, COMPREHENSIVE ([id number])Indication: Other specified nutritional anemias On: 10-Wdz-059227:49 Request LIPID PANEL ([id number])Indication: Other hyperlipidemia On: 50-Zaf-701670:49 Request CBC W/AUTO DIFF WBC ([id number])Indication: Other specified nutritional anemias On: :24 Request METABOLIC PANEL, COMPREHENSIVE ([id number])Indication: Other hyperlipidemia On: :24 Request LIPID PANEL ([id number])Indication: Other hyperlipidemia On: :24 Request IRON ([id number])Indication: Other specified nutritional anemias On: 5-Nrv-913367:37 Request Planned Procedures Radiology - Cervical SpineBy: Fast On: 19-Nov-2017 Intent DO, Enrike A Fast DO, Enrike A Cartoid DopplerBy: Fast DO, Enrike A On: 17-Nov-2017 Intent Fast DO, Enrike A SCREENING DIGITAL TOMOSYNTHESIS OF On: 17-Nov-2017 Intent BREAST ([id number])By: Fast DO, Enrike A Fast DO, Enrike A MRI OF THORACIC SPINE WITHOUT On: 13-Aug-2017 Intent CONTRAST ([id number])By: Fast DO, Enrike A Fast DO, Enrike A MRI LUMBAR SPINE W/O CONTRAST On: 13-Aug-2017 Intent ([id number])By: Fast DO, Enrike A Fast DO, Enrike A INJECTION, PROLIA ([id number])By: Fast On: 26-Jul-2017 Intent DO, Enrike A Fast DO, Enrike A Comments: Prolia prefilled syringe 60mg/mlLot:[id number]:10/2019L arm SQPt tolerated wellMLONG ,PROPAGATOR Radiology - Lumbar SpineBy: Fast DO, On: 09-Jun-2017 Intent Enrike A Fast DO, Enrike A Radiology - Thoracic SpineBy: Fast On: 09-Jun-2017 Intent DO, Enrike A Fast DO, Enrike A MRI OF BRAIN WITH AND WITHOUT On: 13-Apr-2017 Intent CONTRAST ([id number])By: Fast DO, Enrike A Fast DO, Enrike A ELECTROCARDIOGRAM, COMPLETE (ECG) On: 13-Apr-2017 Intent ([id number])By: Fast DO, Enrike A Fast DO, Comments: [...] DIGITAL TOMOSYNTHESIS OF On: 30-Sep-2016 Intent BREAST ([id number])By: Fast DO, Enrike A Comments: end oct Fast DO, Enrike A CT - Chest (Without Contrast)By: On: 30-Sep-2016 Intent Fast DO, Enrike A Fast DO, Enrike A Cartoid DopplerBy: Fast DO, Enrike A On: 04-Sep-2016 Intent Fast DO, Enrike A DEXA SCAN AXIAL SKELETON ([id number])By: On: 04-Sep-2016 Intent Fast DO, Enrike A Fast DO, Enrike A Comments: mid september INJECTION, PROLIA ([id number])By: Fast On: 26-Aug-2016 Intent DO, Enrike A Fast DO, Enrike A Comments: prolialot:[id number]:ite:lt subqroute:subqdose:60mg/mlD.ARNOLDO Arodn ELECTROCARDIOGRAM, COMPLETE (ECG) On: 22-Jul-2016 Intent ([id number])By: Fast DO, Enrike A Fast DO, Comments: ekg showed normal sinus rhythym, normal axis, no acute st/t wave changes Enrike A Cartoid DopplerBy: Fast DO, Enrike A On: 25-May-2016 Intent Fast DO, Enrike A Comments: bilateral INFUSION, NORMAL SALINE SOLUTION , On: 09-Apr-2016 Intent 1000 CC (Special Coverage Instructions Apply. See MCM: 2049) ([id number])By: Madyson Montiel MD ELECTROCARDIOGRAM, COMPLETE (ECG) On: 12-Feb-2016 Intent ([id number])By: Fast DO, Enrike A Fast DO, Comments: ekg showed normal sinus rhythym, normal axis, no acute st/t wave changes Enrike A CT - Chest (Without Contrast)By: On: 12-Feb-2016 Intent Fast DO, Enrike A Fast DO, Enrike A Flu Vaccine (Quadrivalent) [id number]: On: 12-Feb-2016 Intent Fast DO, Enrike A Fast DO, Enrike A Comments: FLUlot: [id number]:08/05site:Lt deltoidroute:IMdose:.5mlARNOLDO WALLACE ADMINISTRATION OF INFLUENZA VIRUS On: 12-Feb-2016 Intent VACCINE ([id number])By: Fast DO, Enrike A Fast DO, Enrike A MAMMOGRAM, SCREENING, BOTH BREAST On: 13-Nov-2015 Intent ([id number])By: Fast DO, Enrike A Fast DO, Enrike [...] Intent Fast DO, Enrike A ZOSTER VACC, [place] ([id number])By: Reva, On: 06-Mar-2015 Intent Dixon Comments: Zosterlot:[id number]:01/26/16ite:lt subqroute:subqDEMICK, SMA PNEUM VAC ADLT/IMUMNOSPR, SBC/INTRM On: 20-Feb-2015 Intent ([id number])By: Visit, Nurse Comments: Pnuemovaxlot:[id number]:10/30/16site:lt deltoidroute:IMDose:.5mlDEMICK, SMA Flu Vaccine (Quadrivalent) [id number]: On: 11-Feb-2015 Intent Fast DO, Enrike A Fast DO, Enrike A Comments: Lot #:[id number] date: 08/2015Amount given:prefilled syringeSite given:L Dltd, IMGiven by: MARGOTH Garibay and ABN signed ADMINISTRATION OF INFLUENZA VIRUS On: 11-Feb-2015 Intent VACCINE ([id number])By: Fast DO, Enrike A Fast DO, Enrike A MAMMOGRAM, SCREENING, BOTH BREAST On: 25-Sep-2014 Intent ([id number])By: Fast DO, Enrike A Fast DO, Enrike [...] 17-Apr-2014 Intent CHEST WITH AND WITHOUT CONTRAST ([id number])By: Fast DO, Enrike A Fast DO, Enrike A CT - Brain/HeadBy: Fast DO, Enrike A On: 16-Apr-2014 Intent Fast DO, Enrike A Doppler Ultrasound OtherBy: Fast DO, On: 16-Apr-2014 Intent Enrike A Fast DO, Enrike A EKG ([id number])By: Fast DO, Enrike A On: 16-Apr-2014 Intent Fast DO, Enrike A Comments: ekg showed normal sinus rhythym, normal axis, no acute st/t wave changes Planned Medications INFUSION, NORMAL SALINE SOLUTION , 1000 CC Ordered: 09-Apr-2016 Pending Albert JC, Madyson Roman INJECTION, PROLIA Ordered: 26-Aug-2016 Pending Fast DO, [...] Advance Directives Name Dates Details Immunization Registry [place] - Effective on 02/22/2018. Effective: 22-Feb-2018 Expiration [...] maybe doing some of pt exercsies at home-milialta increase may have helped pain of fibro [...] Nutrition: balanced diet and supplemental vitamins. The ks dical issues the patient is following up [...] current emotional problems. Note for Physical exam: [facility]- her blood pressures at home [...] include other (labs). Date: (01/29/16). Encounter Diagnosis: [facility], Non-smoker, BMI 25.0-25.9,adult, Need for [...] copd/cough - [facility] her = bp is [...] The patient does have durable power of litigation attorney and l iving will (she thinks). The patient has noticed staying at home rather than doing something new or going out and lack of energy. Other providers contributing to the patient's care are linen room houseperson (Dr. Cota), customs manager (Dr. Pop) and other: ([employer] Associate- Dr. Villa sees eye dr mann.). Note [...] off this- sees Katy for cpap and bavis for rome- was not taking losarten that [...] Limb swelling), Fatigue [facility] Payers [place]/Medicare Adv Olivia LOPEZ; a guarantor
--- OUTSIDE RECORDS SUMMARY | 2018-04-13 15:30 | XMS RPT_ITS | Continuity of Care Document ---
:1945 Author Organization [facility] Address [address] [facility] [address] [place] [address] Phone Care Team Providers Name Role Phone Enrike Gutierrez DO Unavailable Cipriano JC, Mike Avelar Unavailable Dayron Monique Unavailable Domenic Navarrete [place] Unavailable Steven Carlisle MD Unavailable [facility], [facility] Unavailable Phong Graham Unavailable MONICA Ruelas [...] Quantity: 60 {Tablet} Refills: 0 Ordered:02-Jul-2015 Enrike Gutierrez DO, DO Enrike A Start : 02-Jul-2015 Active AmLODIPine Besylate 10 MG Oral Tablet 1 (one) Tablet daily for 90 days Quantity: 90 {Tablet} Refills: 3 Ordered:09-Oct-2017 Enrike Gutierrez DO AFnj MCDUFFIE Enrike A Start : 09-Oct-2017 Active ASPIRIN LOW DOSE, 81MG (Oral Tablet) 1 tab daily (81 MG) Active Atorvastatin Calcium 80 MG Oral Tablet 1 (one) Tablet daily for 0 days Quantity: 30 {Tablet} Refills: 3 Ordered:07-Feb-2018 Fiona MCDUFFIE Enrike HUSAINnj MCDUFFIE, Enrike A Start : 07-Feb-2018 Active CALCIUM, 500MG (Oral Tablet) 2 tabs daily (500 MG) Active Carvedilol 25 MG Oral Tablet 1/2 Tablet bid for 90 days Quantity: 90 {Tablet} Refills: 3 Ordered:25-Jan-2017 Fiona MCDUFFIEFaviogill HUSAINFavio mauro DOa A Start : [...] days Quantity: 30 {Tablet} Refills: 6 Ordered:04-Nov-2017 Fiona MCDUFFIEEnrike LISHAnj MCDUFFIE Enrike A Start : 04-Nov-2017 Active Levothyroxine Sodium 25 MCG Oral Tablet 1 (one) Tablet qd for 0 days Quantity: 34 {Tablet} Refills: 4 Ordered:17-Nov-2017 Fiona MCDUFFIEFaviogill HUSAINnj MCDUFFIE Enrike A Start : 17-Nov-2017 Active [...] Quantity: 90 {Tablet} Refills: 3 Ordered:25-Jan-2017 Enrike Gutierrez DO, DO, Debra A Start : 25-Jan-2017 Active MULTIVITAMIN (PO Tab) 1 (one) daily Active Prolia 60 MG/ML Subcutaneous Solution 1 (one) Solution Solution 1 injection every 6 months for 0 days Quantity: 1 {Pre-filled_Pen_Syringe} Refills: 1 Ordered:12-Jul-2017 Enrike Gutierrez DO, DO, Debra A Start : 12-Jul-2017 Active Comments:Pt gets funding thru the [employer] so send a bill to either them or the pt and then they will me-[id number]-qsh 07/28/16 RaNITidine HCl 300 MG Oral Tablet 1 tab Tablet daily for 90 days Quantity: 90 {Tablet} Refills: 3 Ordered:26-Jan-2018 Mao Benitez Start : 26-Jan-2018 Active VITAMIN E, 400UNIT (Oral Tablet) 1 (one) daily (400 UNIT) Active Xarelto 20 MG Oral Tablet 1 (one) Tablet daily for 0 days Quantity: 30 {Tablet} Refills: 3 Ordered:17-Jan-2018 Enrike Gutierrez DO, DO, Debra A Start : 17-Jan-2018 [...] 500MG (Oral Tablet) 1 (one) Tablet daily [id number] for 14 days Quantity: 14 {Tablet} Refills: 0 Ordered:23-Apr-2014 Fiona MCDUFFIE Enrike HUSAINnj Enrike A Start : 23-Apr-2014 End : 07-May-2014 Inactive Comments:with probiotic PredniSONE 10 MG Oral Tablet 3 (three) Tablet pills for 3 days 2 pils for 3 days 1 pill for 3 days for 0 days Quantity: 18 {Tablet} Refills: 0 Ordered:26-Mar-2017 Fiona MCDUFFIE Enrike HUSAINnj Enrike A Start : 02-Feb-2017 End : 26-Mar-2017 Inactive Comments:[facility] Promethazine HCl 12.5 MG Oral Tablet 1 (one) Tablet q 6 hours prn for 0 days Quantity: 20 {Tablet} Refills: 0 Ordered:14-Apr-2016 MONICA Ruelsa Start : 09-Apr-2016 End : 14-Apr-2016 Inactive Comments:twenty TRAMADOL HCL, 50MG (Oral Tablet) 1 (one) Tablet daily for 30 days Quantity: 30 {Tablet} Refills: 0 Ordered:24-Oct-2014 Fiona MCDUFFIE Enrike HUSAINnj MCDUFFIE Enrike A Start [...] days Quantity: 60 {Tablet} Refills: 0 Ordered:13-Nov-2014 Fiona MCDUFFIE Enrike HUSAINnj Enrike A Start : [...] evualate at home with meds and afib [facility] labs. i went to house, called in [employer], told her brat diet slowly, my nurse [...] Report Result: Comments: See Note; NOTES: [facility] Oncology [address] [place] [address] [place] [address] OFFICE VISIT Date of Service: 01/25/18 1145 MR#: [id number] Acct: [id number] Name: LUPE LOPEZ Rep #: [id number] : 1945 From: Red Spaulding MD Age/Sex: [...] Iron supplements with Vitamin C o r Manatee juice. Check stool for FOBT. RTC 6 months with CBC, CMP, Iron studies. Medications: Prescriptions This Visit Medication Instructions Recorded Meloxicam [Mobic] 15 mg PO DAILY 06/16/16 Rivaroxa ban [Xarelto] 20 mg PO DAILY 06/29/16 Primary Care Provider: Enrike Gutierrez DO Referring Provider: - Problem List (1) Iron deficiency Status: Resolved (2) Anemia Status: Chronic Qualifiers: Anemia typ e: unspecified type Qualified Code(s): D64.9 - Anemia, unspecified (3) Leukopenia Status: Chronic Code Visit Office Visits / Consults: 31469 OV L3 Est 01/25/18 1153 <Electronically signed by Red Spaulding MD> Date Red Spaulding MD Cosigner Signature: Date (if applicable) CC: Enrike Gutierrez DO -Dec-2017 Cerv Spine 2 or 3 Views Result: Comments: See Note; NOTES: [facility] Imaging Services [address] [place] [address] Cerv Spine 2 or 3 Views MR#: [id number] Acct: [id number] Name: LUPE LOPEZ Rep #: [id number] : 1945 F 72 From: Ming Odonnell MD PCP: Enrike Gutierrez DO Status: REG CLI Study: Cerv Spine 2 or 3 Views Date of Exam: 12/23/17 Exam# [id number] Ordering Dr: Karla Berry NEWS OPERATIONS MANAGER-C STUDY: X-RAY - C ERVICAL SPINE [...] , Service support , Fax CC: Enrike Gutierrez DO; Karla Berry Agency Development Manager: Signed 23-Dec-2017 Thoracic Spine 2 Views Result: Comments: See Note; NOTES: [facility] Imaging Services [address] [place] [address] Thoracic Spine 2 Views MR#: [id number] Acct: [id number] Name: LUPE LOPEZ Rep #: [id number] : 1945 F 72 From: Ming Odonnell MD PCP: Enrike Gutierrez DO Status: REG CLI Study: Thoracic Spine 2 Views Date of Exam: 12/23/17 Exam# [id number] Ordering Dr: Karla Berry STUDY: X-RAY - [...] EDT , Service support , CC: Enrike Gutierrez DO; Karla LOPEZ Prebish Agency Development Manager: Signed 11-Dec-2017 Carotid Duplex Ultrasound Result: Comments: See Note; NOTES: [facility] Cardiovascular Services [address] [place] [address] Carotid Duplex Ultrasound 12/10/17 1013 MR#: [id number] Acct: [id number] Name: LUPE BOOGIE Rep #: [id number] : 1945 72 From: Brice Murphy MD Attending Dr: Enrike Gutierrez DO Status: REG CLI Ordering Dr: Enrike Gutierrez DO Date: 12/10/17 Location: [facility] Sex: F C Admitted: Reason For Study: [...] the left vertebral artery. Procedure Carotid Duplex 12648. Exam performed in department. Interpretation Summary Mild (<50%) stenosis right extracranial inter nal carotid. Mild (<50%) stenosis left extracranial internal carotid. Flow within the vertebral arteries is antegrade bilaterally. Ordering Physician: Enrike Gutierrez Referring Physician: Enrike Gutierrez Performed By: Riaz Ashley RVT and Student 12/11/17 1406 Date Brice Murphy MD CC: Enrike Gutierrez DO Date Dictated: 12/10/17 1013 Date Transcribed: 12/11/17 1406 Agency Development Manager: Signed 10-Dec-2017 SCREENING MAMM (CAD), BILAT Result: Comments: See Note; NOTES: [facility] Imaging Services [address] [place] [address] SCREENING MAMM (CAD), BILAT MR#: [id number] Acct: [id number] Name: LUPE LOPEZ Rep #: [id number] : 1945 F 72 From: Johnny Gilman MD PCP: Enrike Gutierrez DO Status: [facility] Study: SCREENING MAMM (CAD), BILAT Date of Exam: 12/10/17 Exam# [id number] Ordering Dr: Enrike Gutierrez DO MAMM OGRAPHY - BILATERAL SCREENING REASON [...] will be sent to the patient by [facility] facility within 30 days. Approximately 10% of breast cancers are not detected by mammography. A normal mammogram should not delay biopsy of a clinically suspicious abnormality. [id number] Electronical ly Signed: Johnny Gilman MD at 13:14 EDT Tel [phone], Service support , CC: Enrike Gutierrez DO Agency Development Manager: Signed 30-Nov-2017 Pulmonary Visit Report Result: Comments: See Note; NOTES: [facility] [address] [place] [address] OFFICE VISIT Date of Service: 11/30/17 MR#: [id number] Acct: [id number] Name: LUPE BOOGIE Rep #: [id number] : 1945 Provider: Merlin Ppo MD Age/Sex: 72/F Location: [facility] Status: Signed Assessment AND Plan Problems 1. [...] Orders: Medications Discontinued: azelastine admini ster into ypry307.5 mcg (0.14 mL) Intranasal BIDJ30.2 Merlin Pop MD nostril Discontinued Reason: Pt no longer taking HPI 6 M FU: Chief Complaint: Chronic cough Details: Patient is a 72-year-old [facility] female, currently under care of Dr. Gutierrez, who presents for evaluation secondary to chronic [...] kg Intake Visit Reasons: 6 M FU Section Laborer Required: No Accompanied by: Family / Other [...] QDAY #90 tab 07/19/17 [Rx Confirmed 11/30/17] [facility] Medical History Carotid stenosis (Chronic) GERD (gastroesophageal reflux disease) (Chronic) Lung nodule (Chronic) Atherosclerotic heart disease of [place] coronary artery without angina pectoris (Chronic) Moderate [...] Location Lot Number Ex piration Date NDC Loan Inspector 0.5 mL IM Left Deltoid [id number] 07/19/17 98099-583-90 SEQIRUS VIS Given Date VIS Publication Date 11/30/17 10/26/14 Eligibility Eligibility Date Coding Level of Care Code O ff vis,est,level 3 Diagnoses Moderate persistent asthma without complication J45.40 Asthma complication type: uncomplicated Lung nodule R91.1 Paroxysmal atrial fibrillation I48.0 11/30/17 1054 & #60;Electronically signed by Merlin Pop MD> Date Merlin Pop MD Cosigner Signature: Date (if applicable) CC: Enrike Fiona MCDUFFIE 09-Sep-2017 Downtime Report Result: Comments: See Note; NOTES: [facility] Medical Records Department [address] [place] [address] Downtime Report MR#: [id number] Acct: [id number] Name: LUPE LOPEZ Rep #: [id number] : 1945 72 From: Turner Diop PCP: Enrike Gutierrez DO Status: REG CLI This patient was seen during an EMR downtime August 23, 2017 - August 30, 2017. This patient may have a combination of rosa maria r and electronic documentation or all paper documentation. All documentation is viewable within the e-chart portion of [employer] for each patient visit. 27-Aug-2017 Spine Lumbar (Routine) Result: Comments: See Note; NOTES: [facility] Imaging Services [address] [place] [address] Spine Lumbar (Routine) MR#: [id number] Acct: [id number] Name: LUPE LOPEZ Rep #: [id number] : 1945 F 72 From: Carlos Pizano PCP: Enrike Gutierrez DO Status: REG CLI Study: Spine Lumbar (Routine) Date of Exam: 08/25/17 Exam# [id number] Ordering Dr: Enrike Gutierrez DO STUDY: MRI LUMBAR SPINE WITHOUT CONTRAST [...] , Service suppo rt , CC: Enrike Gutierrez DO Agency Development Manager: Signed 11-Aug-2017 Re-Evaluation - PT (1) Result: Comments: See Note; NOTES: [facility] [address] [place] [address]. [address] [place] [address] Fax REEVALUATION / MEDICARE RECERTI [facility] PHYSICAL THERAPY MR#: [id number] Acct: [id number] Name: LUPE LOPEZ Rep #: [id number] : 1945 72 From: Shanon Ferrara MPT Referring : Enrike Gutierrez DO Status: REG RCR Insurance: [employer] MEDICARE PPO SELF PAY INSURANCE Enrike Gutierrez DO, It has been my pleasure to [...] do not hesitate to contact me at [phone] by phone or if you have questions or concerns regarding this new plan of care! Sincerely, Shanon Ferrara &#60 ;Electronically signed by Shanon Ferrara MPT> 08/11/17 1913 CC: Enrike Gutierrez DO Signed For Medicare only, by signing this I certify the plan of care. Physicians Signature Date 27-Jul-2017 Oncology Visit Report Result: Comments: See Note; NOTES: [facility] [address] [place] [address] [place] [address] OFFICE VISIT Date of Service: 07/27/17 1128 MR#: [id number] Acct: [id number] Name: LUPE LOPEZ Rep #: [id number] : 1945 From: Red Spaulding MD Age/Sex: [...] continue Iron supplements with Vitamin C or Manatee juice. RTC 6 months with CBC, CMP, Iron studies. Me dications: Prescriptions This Visit Medication Instructions Recorded Meloxicam [Mobic] 15 mg PO DAILY 06/16/16 Rivaroxaban [Xarelto] 20 mg PO DAILY 06/29/16 Primary Care Provider: DO Louis Stone Provider: - Problem List (1) Iron deficiency Status: Resolved Code Visit Office Visits / Consults: 14694 OV L3 Est 07/27/17 1135 <Electronically signed by Red Spaulding MD> Date Red Spaulding MD Cosigner Signature: Date (if applicable) CC: 15-Jul-2017 Stress Report Result: Comments: See Note; NOTES: [facility] Cardiovascular Services [address] [place] [address] MR#: [id number] Acct: [id number] Name: LUPE LOPEZ Rep #: [id number] : [birth year] 72 From: Mike Cota MD Primary Care: Enrike Gutierrez DO Status: REG CLI Ordering Dr: Sex: [...] %. This note was g enerated with [employer] software. It may contain incorrect words, spelling, and punctuation that were not noted in checking the note before signing. 07/15/17 1311 <Electronically s igned by Mike Cota MD> Date Mike Cota MD CC: Enrike Gutierrez DO; Mike Cota MD Date Dictated: 07/15/17 1307 Date Transcribed: 07/15/171306 Agency Development Manager: PM Signed 08-Jul-2017 Inital Evaluation (1) - PT Result: Comments: See Note; NOTES: [facility] [address] [place] [address]. [address] [place] [address] Fax REHABILITATION SERVICES INITIAL EVALUATION MR#: [id number] Acct: [id number] Name: LUPE LOPEZ Rep #: [id number] : 1945 72 From: Domenic Ayala PT, Cert. MDT, OCS Referring DrBrooke: Enrike Gutierrez DO Status: REG RCR Insurance: PENDING SALE TO [facility] [employer] MEDICARE PPO SELF PAY INSURANCE Patient's Visit Information LUPE LOPEZ is a 72 year old F referred to Physical Therapy by Enrike Gutierrez DO with a diagnosis of LOW BACK [...] to be FAXED BACK to us at [phone] for Medicare purposes. Please let me know if there are questions or concerns regarding this plan of care. Physician Luther william: Date: <Electronically signed by Domenic Ayala PT, Cert. MDT, OCS> 07/08/17 1332 CC: Enrike Gutierrez DO D HEMA Signed For Medicare only, by signing this I certify the plan of care. Physicians Signature Date 05-Jul-2017 Cardiology Visit Report Result: Comments: See Note; NOTES: [facility] [address] [place] [address] OFFICE VISIT Date of Service: 07/05/17 MR#: [id number] Acct: [id number] Name: LUPE LOPEZ Rep #: [id number] : 1945 Provider: Mike Cota MD Age/Sex: 72/F Location: [facility] Status: Signed HPI HPI Details: [...] non-flow limiting by angiography. 2. Presered left mamb8dhpeq systolic a nd diastolic function. CLINICAL CORRELATION: This Is a 64-year-old wtio presents with angina ha1ng atypical features, she has nonflowIlmTting disease hr which aggressiw medical therapy is warranted Incl uding aspirin, beta jonn, DAPHNEY Inhibitor, and statin therapy. 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 She will also follow with her student services rep based on her underlying pulmonary disease process [...] disease) I25.10 Coronary Disease-Associated Arter y/Lesion type: [place] artery Hyperlipidemia, unspecified hyperlipidemia type E78.5 Hyperlipidemia type: unspecified Essential hypertension I10 Hypertension type: essential hypertension Chest pain, unspe cified type R07.9 Chest pain type: unspecified Coding Level of Care Code Off vis,est,level 4 Diagnoses Paroxysmal atrial fibrillation I48.0 CAD (coronary artery disease) I25.10 Coronary Disease-Assoc iated Artery/Lesion type: [place] artery Hyperlipidemia, unspecified hyperlipidemia type E78.5 Hyperlipidemia type: unspecified Essential hypertension I10 Hypertension type: essential hypertension Chest pain, unspecified type R07.9 Chest pain type: unspecified 07/05/17 1123 <Electronically signed by Mike Cota MD> Date Mike washburn MD Cosigner Signature: Date (if applicable) CC: Enrike Gutierrez DO 05-Jul-2017 12 Lead EKG performed by [facility] Result: Comments: See Note; NOTES: [facility] [address] [place] [address] 12 Lead EKG performed by [facility] 07/05/17 1033 MR#: [id number] Acct: [id number] Name: LUPE SANDOVAL Rep #: [id number] : 1945 72 From: Mike Cota MD Attending Dr: Mike Cota MD Status: DEP [facility] Ordering Dr: Mike Cota MD Date: 07/05/17 Location: [facility] Sex: F C Admitted: [facility]/12 Lead EKG performed by [facility] ECG Report Interpretation Sinus Bradycardia -First degree A-V block Poor R wave progressionElectronically signed on 2017 at 11:45 by Mike Cota 07/05/17 1146 Date Mike Cota MD CC: Enrike Fast DO Date Dictated: 07/05/17 1033 Date Transcribed: 07/05/17 1033 Agency Development Manager: PM Signed 16-Jun-2017 Pulmonary Visit Report Result: Comments: See Note; NOTES: [facility] [place] [address] [place] [address] OFFICE VISIT Date of Service: 06/16/17 MR#: [id number] Acct: [id number] Name: LUPE BOOGIE Rep #: [id number] : 1945 Provider: Kirsten Padilla Age/Sex: 72/F Location: [facility] Status: Signed Assessment AND Plan 1. Moderate [...] PO DAILY 06/20/15 [History Confirmed 06/16/17] Ipratropium [place] 0.06% [ATROVENT NASAL SPRAY] 1 spray NASAL [...] BMI 26.0-26.9,adult (Chronic) Atherosclerotic heart disease of [place] coronary artery without angina pectoris (Chronic) Moderate [...] wed 06/16/17 @ 17:00 by Kirsten Padilla, NEWS OPERATIONS MANAGER-C) Sister Breast cancer Brother Heart disease Sister [...] signed by Kirsten LOPEZ> Date Kirsten Padilla NEWS OPERATIONS MANAGER-C Cosigner Signature: Date ___ (if applicable) CC: Enrike Gutierrez DO 09-Jun-2017 L/S Spine Min 4 Views Result: Comments: See Note; NOTES: [facility] Imaging Services [address] [place] [address] L/S Spine Min 4 Views MR#: [id number] Acct: [id number] Name: LUPE LOPEZ Rep #: [id number] : 1945 F 72 From: Brennan Mike DO PCP: Enrike Gutierrez DO Status: REG CLI Study: L/S Spine Min 4 Views Date of Exam: 06/09/17 Exam# [id number] Ordering Dr: Enrike Gutierrez DO STUDY: X-RAY - LUMBAR S PINE [...] Brennan Mike DO at 16:29 EDT Tel [phone], Service support , Fax CC: Enrike Gutierrez DO Agency Development Manager: Signed 09-Jun-2017 Thoracic Spine 3 Views Result: Comments: See Note; NOTES: [facility] Imaging Services [address] [place] [address] Thoracic Spine 3 Views MR#: [id number] Acct: [id number] Name: LUPE LOPEZ Rep #: [id number] : 1945 F 72 From: Jose Antonio Jensen PCP: Enrike Gutierrez DO Status: REG CLI Study: Thoracic Spine 3 Views Date of Exam: 06/09/17 Exam# [id number] Ordering Dr: Enrike Gutierrez DO STUDY: X-RAY - THORACIC SP INE [...] , Service suppo rt , CC: Enrike Gutierrez DO Agency Development Manager: Signed 19-Apr-2017 Brain W/WO Contrast Result: Comments: See Note; NOTES: [facility] Imaging Services [address] [place] [address] Brain W/WO Contrast MR#: [id number] Acct: [id number] Name: LUPE LOPEZ Rep #: [id number] : 1945 F 72 From: Steven Ratliff MD PCP: Enrike Gutierrez DO Status: REG CLI Study: Brain W/WO Contrast Date of Exam: 04/19/17 Exam# [id number] Ordering Dr: Enrike Gutierrez DO STUDY: MRI BRAIN WITH AN D [...] EST , Service support , CC: Enrike Gutierrez DO Agency Development Manager: Signed 05-Jan-2017 Hepatobilliary Img w/Pharm Int Result: Comments: See Note; NOTES: [facility] Imaging Services [address] [place], [place] [address] [address] Hepatobilliary Img w/Pharm Int MR#: [id number] Acct: [id number] Name: LUPE LOPEZ Rep # : [id number] : 1945 F 71 From: Dom Sorto DO PCP: Enrike Gutierrez DO Status: REG CLI Study: Hepatobilliary Img w/Pharm Int Date of Exam: 01/05/17 Exam# [id number] Ordering Dr: Enrike Gutierrez DO CLI NICAL: 71-year-old female with history [...] Tel , Service support , CC: Enrike Gutierrez DO Agency Development Manager: Signed 23-Dec-2016 Gallbladder Result: Comments: See Note; NOTES: [facility] Imaging Services [address] [place] [address] Gallbladder MR#: [id number] Acct: [id number] Name: LUPE LOPEZ Rep #: [id number] : F 71 From: Terri Dash MD PCP: Enrike Gutierrez DO Status: REG CLI Study: Gallbladder Date of Exam: 12/23/16 Exam# [id number] Ordering Dr: Enrike Gutierrez DO US Gallbladder (abdomen limited) INDICATION: RUQ [...] Tel , Service support , CC: Enrike Gutierrez DO Agency Development Manager: Signed 19-Nov-2016 SCREENING MAMM (CAD), BILAT Result: Comments: See Note; NOTES: [facility] Imaging Services [address] [place] [address] SCREENING MAMM (CAD), BILAT MR#: [id number] Acct: [id number] Name: LUPE LOPEZ Rep #: [id number] : 1945 F 71 From: Johnny Gilman MD PCP: Enrike Gutierrez DO Status: REG CLI Study: SCREENING MAMM (CAD), BILAT Date of Exam: 11/19/16 Exam# [id number] Ordering Dr: Enrike Gutierrez DO MAMM OGRAPHY - BILATERAL SCREENING REASON [...] Johnny Gilman MD at 11:14 EDT Tel [phone], Service support , CC: Enrike Gutierrez DO Agency Development Manager: Signed 17-Nov-2016 6 Minute Walk Test Result: Comments: See Note; NOTES: [facility] Pulmonary Services/Neurology [address] [address] MR#: [id number] Acct: [id number] Name: LUPE LOPEZ Rep #: [id number] : 1 04/14/1944 71 From: Merlin Pop MD Referring Dr: Kirsten Padilla NEWS OPERATIONS MANAGER Date: Ordering Dr: Sex: F C Location: [facility] PSN 6 Minute Walk Test - 6 Minute Walk Test 6 Minute Walk Test: 6 Minute Walk Test PS N:6-Minute Walk Test Start: 11/17/16 11:09 Freq: Status: Active Document 11/17/16 11:00 HG (Rec: 11/17/16 11:11 HG [id number]) 6 Minute Walk Test Date Performed 11/17/16 [...] CC: Date Dictated: 11/17/161548 Date Transcribed: 11/17/161548 Agency Development Manager: Merlin Pop Signed 12-Nov-2016 Pulmonary Function Report Comp Result: Comments: See Note; NOTES: [facility] Pulmonary Services/Neurology [address] [place] [address] MR#: [id number] Acct: [id number] Name: LUPE LOPEZ Rep #: [id number] : 71 From: Merlin Pop MD Referring Dr: Kirsten Padilla NEWS OPERATIONS MANAGER Status: REG CLI Ordering Dr: Date: Location: [facility] Sex: F C COMPLETE PULMONARY FUNCTION TEST INTERPRETATION Brief HPI: Patient is a 71 year old female, currently under the care of myself, who presents to [facility] for complete pulmonary function tests secondary to [...] DO Date Dictated: 11/12/161532 Date Transcribed: 11/12/161532 Agency Development Manager: EDENILSON Signed 06-Oct-2016 Chest without Contrast Result: Comments: See Note; NOTES: [facility] Imaging Services [address] [place] [address] Obduliadana 4d Chest without Contrast MR#: [id number] Acct: [id number] Name: LUPE LOPEZ p #: [id number] : 1945 F 71 From: Sonam Hendricks MD PCP: Enrike Gutierrez DO Status: REG CLI Study: Chest without Contrast Date of Exam: 10/06/16 Exam# [id number] Ordering Dr: Enrike Gutierrez DO STUDY: CT CHEST WITHOUT CONTRAST REASON [...] Sonam Hendricks MD at 23:59 EDT Tel [phone], Service support , CC: Enrike Gutierrez DO Agency Development Manager: Signed 29-Sep-2016 Dexa Bone Density Study (HP) Result: Comments: See Note; NOTES: [facility] [facility] [address] [place] [address] Verdana 4d Dexa Bone Density Study (HP) MR#: [id number] Acct: [id number] Name: BRAYDON LOPEZ Rep #: [id number] : 1945 F 71 From: Johnny Gilman MD PCP: Enrike Gutierrez DO Status: REG CLI Study: Dexa Bone Density Study (HP) Date of Exam: 09/29/16 Exam# [id number] Ordering Dr: Szymanski DO STUDY: DUAL ENERGY [...] Johnny Gilman MD at 9:38 EDT Tel [phone], Service support , CC: Enrike Gutierrez DO Agency Development Manager: Signed 19-Sep-2016 Carotid Duplex Ultrasound Result: Comments: See Note; NOTES: [facility] Cardiovascular Services [address] [place] [address] Carotid Duplex Ultrasound 09/18/16 1406 MR#: [id number] Acct: [id number] Name: LUPE BOOGIE Rep #: [id number] : 1945 71 From: Brice Murphy MD Attending Dr: Enrike Gutierrez DO Status: REG CLI Ordering Dr: Enrike Gutierrez DO Date: 09/18/16 Location: [facility] Sex: F [...] the left vertebral artery. Procedure Carotid Duplex 75998. The exam was diagnostic. Exam performed in [facility]. Interpretation Summary Mild (<50%) stenosis right extracranial internal carotid. Mild (<50%) stenosis left extracranial internal carotid. Flow within the vertebral arteries i s antegrade bilaterally. There has been no significant change since a prior study on 05/23/2015. Or dering Physician: Enrike Gutierrez Referring Physician: Enrike Gutierrez Performed By: Wendy López, RDCS, RVT 09/19/1644 Date Brice Murphy MD CC: Enrike Gutierrez DO Date Dictated: 09/18/16 1406 Date Transcribed: 09/19/16943 Agency Development Manager: Signed 16-Sep-2016 PT D/C Summary (1) Result: Comments: See Note; NOTES: [facility] [address] [place] [address]. [address] [place], [place] [address] Fax [facility] MR#: [id number] Acct: [id number] Name: LUPE LOPEZ Rep #: [id number] : 1945 71 From: Shanon CASTILLO Referring DrBrooke: Enrike Gutierrez DO Status: REG RCR Insurance: ANTHEM MEDICARE P PO HP - PT D/C Summary It has been my pleasure to treat LUPE LOPEZ under orders from Enrike Gutierrez DO, for the diagnosis of Neck Pain [...] by Shanon CASTILLO> 09/16/16 1054 CC: Enrike Gutierrez DO Signed 26-Aug-2016 Re-Evaluation - PT (1) Result: Comments: See Note; NOTES: [facility] [facility] [place] [address] Fax REEVALUATION / MEDICARE RECERTI KALEN Solomon 4d PHYSICAL THERAPY MR#: [id number] Acct: [id number] Name: LUPE LOPEZ Rep #: [id number] : 1945 71 From: Shanon CASTILLO Referring DrBrooke: Enrike Fast DO Status: REG RCR Insu erika: ANTHEM MEDICARE PPO Enrike Gutierrez, DO, It has been my pleasure to treat LUPE LOPEZ over the last 8 visits for Neck Pain. Please see the progress note below for an update on the [facility] plan of care! Subjective: Pt reports [...] do not hesitate to contact me at [phone] by phone or if you have questions or concerns reg arding this new plan of care! Sincerely, Shanon Ferrara <Electronically signed by Shanon Ferrara MPT> 08/26/16 1827 CC: Enrike Gutierrez DO Signed For Medic are only, by signing this I certify the plan of care. Physicians Signature Date 28-Jul-2016 Inital Evaluation (1) - PT Result: Comments: See Note; NOTES: [facility] [address] [place] [address] Rd. [address] [place] [address] Fax REHABILITATION SERVICES INITIAL EVALUATION MR#: [id number] Acct: [id number] Name: LUPE LOPEZ Rep #: [id number] : 1945 71 From: Shanon CASTILLO Referring DrBrooke: Enrike Gutierrez DO Status: REG RCR Insurance: ANTHEM MEDICARE FREEDOM BLUE Patient's Visit Information LUPE LOPEZ is a 71 year old F referred to Physical Therapy by Enrike Gutierrez DO with a diagnosis of Neck Pain. [...] opportunity to evaluate your patient. For Medic [facility] and Medicare HMO plans, please review the plan of care and approve it. It will need to be FAXED BACK to us at [phone] for Medicare purposes. Please let me know if there are questions or reza rns regarding this plan of care. Physician Signature: Date: <Electronically signed by Shanon Ferrara MPT> 07/28/16 1629 CC: nErike Gutierrez DO Signed For Medicare only, by signing this I certify the plan of care. Physicians Signature Date 08-Jul-2016 Oncology Progress Note Result: Comments: See Note; NOTES: [facility] Medical Records Department [address] [place] [address] Oncology Progress Note MR#: [id number] Acct: [id number] Name: LUPE LOPEZ Rep #: [id number] : 1945 71 From: Red Spaulding MD PCP: Enrike Gutierrez DO Status: REG RCR DATE OF SERVICE: [...] B12 and folate. Red Spaulding MD T: [facility] JOB: [id number] 07/08/16 1043 <Electronically signed by Red Spaulding MD> Date Red Spaulding MD Cosigner Signature (If Indicated): Date CC: Date Dictated: 0404/07 Date Transcribed: 06/30/162251 Agency Development Manager: Signed 21-Feb-2016 Chest without Contrast Result: Comments: See Note; NOTES: [facility] Imaging Services [address] [place] [address] Verdana 4d Chest without Contrast MR#: [id number] Acct: [id number] Name: LUPE LOPEZ p #: [id number] : 1945 F 71 From: Barrett Small MD PCP: Enrike Gutierrez DO Status: REG CLI Study: Chest without Contrast Date of Exam: 02/21/16 Exam# [id number] Ordering Dr: Enrike Gutierrez DO STUDY : CT CHEST WITHOUT CONTRAST [...] MD at 2:43 EST , Service support [phone], CC: Enrike Gutierrez DO Agency Development Manager: Signed 08-Dec-2015 Pulmonary Function Report Comp Result: Comments: See Note; NOTES: [facility] Pulmonary Services/Neurology [address] [place] [address] Pulmonary Function Test (Comp) MR#: [id number] Acct: [id number] Name: Oliver LOPEZ Rep #: [id number] : 1945 70 From: Merlin Pop MD Referring Dr: Kirsten Padilla NEWS OPERATIONS MANAGER Status: REG CLI Ordering Dr: Kirsten Padilla NEWS OPERATIONS MANAGER-C Date: 12/06/15 Location: N Sex: F C [...] patient's primary care physician T: NTS JOB: [id number] 12/08/15 0651 <Electronically signed by Merlin Pop MD> Date __ Merlin Pop MD CC: Merlin Pop MD; Kirsten Padilla; Enrike Gutierrez DO Date Dictated: 12/07/15 1235 Date Transcribed: 12/07/15 1235 Agency Development Manager: Signed 19-Nov-2015 Bilat Scrn Digital AND CAD Result: Comments: See Note; NOTES: [facility] Imaging Services [address] [place] [address] Verdana 4d Bilat Scrn Digital AND CAD MR#: [id number] Acct: [id number] Name: DYLAN LOPEZ Rep #: [id number] : 1945 F 70 From: Johnny Gilman MD PCP: Enrike Gutierrez DO Status: REG CLI Study: Bilat Scrn Digital AND CAD Date of Exam: 11/19/15 Exam# [id number] Ordering Dr: Enrike Gutierrez DO MAMMOGRAPHY - BILATERAL SCREENING REASON FOR [...] delay biopsy of a clinically suspicious abnormality. [id number] Electronically Signed: Johnny Gilman MD at 8:15 ED T Tel [phone], Service support [phone], CC: Enrike Gutierrez DO Agency Development Manager: Signed 07-Oct-2015 Knee 4 or More Views Result: Comments: See Note; NOTES: [facility] Imaging Services [address] [place] [address] Verdana 4d Knee 4 or More Views MR#: [id number] Acct: [id number] Name: LUPE LOPEZ Rep #: [id number] : 1945 F 70 From: Johnny Gilman MD PCP: Enrike Gutierrez DO Status: REG CLI Study: Knee 4 or More Views Date of Exam: 10/07/15 Exam# [id number] Ordering Dr: Yamileth Gutierrez DO STUDY: X-RAY - LEFT KNEE REASON [...] Johnny Gilman MD at 13:02 EDT Tel [phone], Service support [phone], RAD/Knee 4 or More Views IMPRESSION: Minimal joint effusion. Electronically Signed: Johnny iGlman MD at 13:02 EDT Tel [phone], Service support [phone], CC: Enrike Gutierrez DO Agency Development Manager: Signed 27-Aug-2015 PT D/C Summary (1) Result: Comments: See Note; NOTES: [facility] [address] [place] [address]. [address] [place] [address] Fax REHABILITATION SE RVICES DISCHARGE SUMMARY MR#: [id number] Acct: [id number] Name: LUPE LOPEZ Rep #: [id number] : 1945 70 From: Domenic Ayala PT, Cert. MDT Referring Dr.: Enrike Gutierrez DO Status: REG R CR Insurance: ANTHEM MEDICARE FREEDOM BLUE - PT D/C Summary It has been my pleasure to treat LUPE LOPEZ under orders from Enrike Gutierrez DO, for the diagnosis of CHRONIC RIGHT [...] feel free to c all me at [phone]. Thank you for the referral of this patient. Sincerely, Domenic Ayala <Electronically signed by Domenic Ayala PT, Cert. JCT> 08/27/15 1406 CC: Enrike Gutierrez DO Signed 06-Aug-2015 Inital Evaluation (1) - PT Result: Comments: See Note; NOTES: [facility] [address] [facility] [place] [address] Fax REHABILITATION [facility] INITIAL EVALUATION MR#: [id number] Acct: [id number] Name: LUPE LOPEZ Rep #: [id number] : 1945 70 From: Cert. BABITA Bonilla PTT Referring DrBrooke: Enrike Gutierrez DO Status: REG RCR Insurance: ANTHEM MEDICARE FREEDOM BLUE Patient's Visit Information LUPE LOPEZ is a 70 year old F referred to Physical Therapy by Enrike Gutierrez with a diagnosis of CHRONIC RIGHT SHOULDER [...] to be FAXED BACK to us at [phone] for Medicare purposes. Please let me know [...] 5 Views Result: Comments: See Note; NOTES: [facility] Imaging Services [address] [place] [address] Verdana 4d Cerv Spine 4 or 5 Views MR#: [id number] Acct: [id number] Name: LUPE MCCARTHY Rep #: [id number] : 1945 F 70 From: Vu Hankins MD PCP: Enrike Gutierrez DO Status: REG CLI Study: Cerv Spine 4 or 5 Views Date of Exam: 07/30/15 Exam# [id number] Ordering Dr: Szymanski DO STUDY: X-RAY - [...] MD at 17:12 EDT , Service support [phone], RAD/Cerv Spine 4 or 5 Views IMPRESSION: Diffuse oste openia with moderate cervical spondylosis. Electronically Signed: Vu Hankins MD at 17:12 EDT , Service support [phone], CC: Enrike Gutierrez DO Agency Development Manager: Signed 30-Jul-2015 Shoulder min 2 Views Result: Comments: See Note; NOTES: [facility] Imaging Services [address] [place] [id number] [place] [address] 4d Shoulder min 2 Views MR#: [id number] Acct: [id number] Name: LUPE LOPEZ Rep #: [id number] : 1945 F 70 From: Vu Hankins MD PCP: Enrike Gutierrez DO Status: REG CLI Study: Shoulder min 2 Views Date of Exam: 07/30/15 Exam# [id number] Ordering Dr: Enrike Gutierrez DO STUDY: X-RAY - RIGHT SHOULDER REASON [...] at 17:12 EDT Tel , Service support [phone], RAD/Shoulder min 2 Views IMPRESSION: Normal x-ray examination of the shoulder. Electronically Signed: Vu Hankins MD 07/29 at 17:12 EDT , Service support [phone], CC: Enrike Gutierrez DO Agency Development Manager: Signed 02-Jul-2015 Chest PA and Lateral Result: Comments: See Note; NOTES: [facility] Imaging Services [address] [place] [address] Verdana 4d Chest PA and Lateral MR#: [id number] Acct: [id number] Name: LUPE LOPEZ Rep #: [id number] : 1945 F 70 From: Johnny Gilman MD PCP: Enrike Gutierrez DO Status: REG CLI Study: Chest PA and Lateral Date of Exam: 07/02/15 Exam# [id number] Ordering Dr: Yamileth Gutierrez DO STUDY: X-RAY CHEST REASON FOR EXAM: [...] Johnny Gilman MD at 11:24 EDT Tel [phone], Service support [phone], RAD/Chest PA and Lateral IMPRESSION: The previously seen right upper lobe infiltrate rome s resolved. No acute abnormality is seen at this time. Electronically Signed: Johnny Gilman MD at 11:24 EDT Tel [phone], Service support [phone], CC: Enrike Gutierrez DO Agency Development Manager: Signed 02-Jul-2015 ELECTROCARDIOGRAM, COMPLETE (ECG) (05828) Comments: ekg showed normal sinus rhythym, normal axis, no acute st/t wave changes sinus maggie Result: [MEASUREMENTS ANALYSIS] Date of Test: 07/02/2015 10:18:39; Heart Rate: 56; MD Interval: 222; QRS: 100; QT Interval: 448; Corrected QT Interval (QTc): 441; P Wave Dudley: 90; QRS Wave Dudley: 6; T Wave Dudley: 18; Blood Pressure: 156/64 [ECG DIAGNOSTIC STATEMENTS] Date of Test: 07/02/2015 10:18:39; Summary: Sinus Bradycardia -First degree A-V block Tessy = 222BORDERLINE RHYTHM 02-Jul-2015 Spirometry (04739) Comments: good effort and curve normal Result: 24-Jun-2015 Venous Duplex Lower Extremity Result: Comments: See Note; NOTES: [facility] Cardiovascular Services [address] [place] [address] Venous Duplex US - Ibrahima Extrem 06/24/15 1102 MR#: [id number] Acct: [id number] Name: LUPE LOPEZ Rep #: [id number] : 1945 70 From: Brice Murphy MD Attending Dr: Enrike Gutierrez DO Status: REG CLI Ordering Dr: Enrike Gutierrez DO Date: 06/24/15 Location: [facility] Sex: F [...] report was called and/or faxed to Dr. Gutierrez. Interpretation Summary Chronic deep vein thrombosis is [...] patent and compressible segmentally. Ordering Physician: Enrike Gutierrez Referring Physician: Enrike Gutierrez Performed By: Asia Rogers, RDCS, RVT 07:0 8 PM 06/24/151907 Date Brice Murphy MD CC: Enrike Gutierrez DO Date Dictated: 06/24/15 1102 Date Transcribed: 06/24/151907 Agency Development Manager: Signed 20-Jun-2015 CTA Chest W/WO Contrast Result: Comments: See Note; NOTES: [facility] Imaging Services [address] [address] Verdana 4d CTA Chest W/WO Contrast MR#: [id number] Acct: [id number] Name: LUPE MCCARTHY Rep #: [id number] : 1945 F 70 From: Johnny Gilman MD PCP: Enrike Gutierrez DO Status: REG ER Study: CTA Chest W/WO Contrast Date of Exam: 06/20/15 Exam# [id number] Ordering Dr: Sonam Colon MD STUDY: CTA [...] Johnny Gilman MD at 15:25 EDT Tel [phone], Service support , CC: Enrike Gutierrez DO; Sonam Sheth MD Agency Development Manager: Signed 20-Jun-2015 Chest 1 View (Portable) Result: Comments: See Note; NOTES: [facility] Imaging Services [address] [place] [address] Verdana 4d Chest 1 View (Portable) MR#: [id number] Acct: [id number] Name: LUPE MCCARTHY Rep #: [id number] : 1945 F 70 From: Johnny Gilman MD PCP: Enrike Gutierrez DO Status: REG ER Study: Chest 1 View (Portable) Date of Exam: 06/20/15 Exam# [id number] Ordering Dr: Sonam Colon MD STUDY: X-RAY [...] Johnny Gilman MD at 13:07 EDT Tel [phone], Se rvice support [phone], RAD/Chest 1 View (Portable) IMPRESSION: Focal infiltration in the right upper lobe. Electronically Signed: Johnny Gilman MD at 13:07 EDT Tel [phone], Service support [phone], CC: Enrike Gutierrez DO; Sonam Sheth MD Agency Development Manager: Signed 20-Jun-2015 ELECTROCARDIOGRAM, COMPLETE (ECG) (24592) Result: [MEASUREMENTS ANALYSIS] Date of Test: 06/20/2015 10:36:19; Heart Rate: 61; MD Interval: 216; QRS: 100; QT Interval: 426; Corrected QT Interval (QTc): 427; P Wave Dudley: 62; QRS Wave Dudley: 8; T Wave Dudley: 28; Blood Pressure: 160/62 [ECG DIAGNOSTIC STATEMENTS] Date of Test: 06/20/2015 10:36:19; Summary: Sinus Rhythm WITHIN NORMAL LIMITS 15-Jun-2015 Echocardiogram Complete Result: Comments: See Note; NOTES: [facility] Cardiovascular Services [address] [place] [address] Echo Complete 06/12/15 1110 MR#: [id number] Acct: [id number] Name: LUPE PHILLIPS Rep #: [id number] : 1945 70 From: Mike Cota MD [...] her BP this afternoon. Instructed to call [facility] if systolic BP does not [...] dysfunction (pseudonormal pattern). ____ __ Ordering Physician: Mkie Cota Referring Physician: Enrike Gutierrez Performed By: Wendy López, STEVE, RVT 06/15/15 122 6 Date Mike Cota MD CC: Enrike Gutierrez DO; Mike Cota MD Date Dictated: 06/12/15 1110 Date Transcribed: 06/15/15 1226 Agency Development Manager: Signed 13-Jun-2015 History and Physical Exam Result: Comments: See Note; NOTES: [facility] Medical Records Department [address] [place] [address] History and Physical 06/13/15 1251 MR#: [id number] Acct: [id number] Name: LUPE LOPEZ Rep #: [id number] : 1945 70 From: Jess Sparrow MD PCP: Enrike Gutierrez DO Status: REG ER Y Location: ED [...] surgery. Psychiatric History: No pertinent psych hx FAMILY CONSUMER SCIENTIST History: No pertinent FAMILY CONSUMER SCIENTIST history Lives: Spouse/ Significant Other Smoking Status: [...] % (Auto) 51.1 Lymph % (Auto) 33.9 [place]ler % (Auto) 11.5 H Eos % (Auto) [...] Cosigner Signature (if applicable): Date CC: Enrike Fiona DO; Jess Sparrow Signed 13-Jun-2015 Chest 1 View (Portable) Result: Comments: See Note; NOTES: [facility] Imaging Services [address] [place] [address] Verdana 4d Chest 1 View (Portable) MR#: [id number] Acct: [id number] Name: GUCCI LUPE MONSIVAIS Rep #: [id number] : 1945 F 70 From: Vu Hankins MD PCP: Enrike Gutierrez DO Status: REG ER Study: Chest 1 View (Portable) Date of Exam: 06/13/15 Exam# [id number] Ordering Dr: Jessie Ogden MD STUDY: X-RAY [...] MD at 10:55 EDT , Service support [phone], RAD/Chest 1 View (Port able) IMPRESSION: Cardiomegaly with mild hyperexpansion. No acute or active cardiopulmonary disease. Electronically Signed: Vu Hankins MD at 10:55 EDT , Service sup port [phone], CC: Enrike Gutierrez DO; Kane Ogden MD Agency Development Manager: Signed 13-Jun-2015 CTA Chest W/WO Contrast Result: Comments: See Note; NOTES: [facility] Imaging Services [address] [place] [address] Verdana 4d CTA Chest W/WO Contrast MR#: [id number] Acct: [id number] Name: LUPE MCCARTHY Rep #: [id number] : 1945 F 70 From: Johnny Gilman MD PCP: Enrike Gutierrez DO Status: REG ER Study: CTA Chest W/WO Contrast Date of Exam: 06/13/15 Exam# [id number] Ordering Dr: Kane Lujan MD STUDY: CTA [...] verbally conveyed by Johnny Gilman MD to [facility] ED RN, on 06/13/2015 12:08:48 (ET). Electronically Signed: Johnny Gilman MD at 12:08 EDT Tel [phone], Service support [phone], N.B. : The above information has been verbally conveyed by Johnny Gilman MD to [facility] ED RN, on 06/13/2015 12:08:48 (ET). CC: Debr a Fast DO; Kane Ogden MD Agency Development Manager: Signed 13-Jun-2015 EKG (45630) Comments: nsr no acute chg Result: [MEASUREMENTS ANALYSIS] Date of Test: 06/13/2015 09:41:07; Heart Rate: 71; MD Interval: 194; QRS: 96; QT Interval: 420; Corrected QT Interval (QTc): 439; P Wave Dudley: 68; QRS Wave Dudley: 2; T Wave Dudley: 29; Blood Pressure: 140/70 [ECG DIAGNOSTIC STATEMENTS] Date of Test: 06/13/2015 09:41:07; Summary: Sinus Rhythm WITHIN NORMAL LIMITS 23-May-2015 Carotid Duplex Ultrasound Result: Comments: See Note; NOTES: [facility] Cardiovascular Services [address] [place] [address] Carotid Duplex Ultrasound 05/23/15 0814 MR#: [id number] Acct: [id number] Name: LUPE LOPEZ Rep #: [id number] : 1945 70 From: Brice Murphy MD Attending Dr: Enrike Gutierrez DO Status: REG CLI Ordering Dr: Enrike Gutierrez DO Date: 05/23/15 Location: [facility] Sex: F C Adm itted: Reason For [...] the left vertebral artery. Procedure Carotid Duplex 64967. The exam was diagnostic. Exam performed in department. Interpretatio n Summary Mild (<50%) stenosis right extracranial internal carotid. Mild (<50%) stenosis left extracranial internal carotid. Flow within the vertebral arteries is antegrade bilaterall y. There has been no significant change since a prior study on 05/03/2014. Ordering Physician: Enrike Gutierrez Performed By: Rufino Ashley, RVT 05/23/15 2330 Date Brice Hoyt rn, MD CC: Enrike Gutierrez DO Date Dictated: 05/23/15813 Date Transcribed: 05/23/152329 Agency Development Manager: Signed 23-May-2015 Nuclear Stress Test - Treadmil Result: Comments: See Note; NOTES: [facility] Imaging Services [address] [place] [address] Verdana 4d Nuclear Stress Test - Treadmil MR#: [id number] Acct: [id number] N ruel: LUPE LOPEZ Rep #: [id number] : 1945 70 From: Mike Cota MD Primary Care: Enrike Gutierrez DO Status: REG CLI Ordering Dr: Enrike Gutierrez DO Sex: F C DATE OF SERVICE: [...] 72%. Mike Cota MD T: NTS JOB: [id number] 05/23/152009 <Electronically signed by Mike Cota MD> Date Mike Cota MD CC: Enrike Gutierrez DO Date Dictated: 05/23/15 1023 Date Transcribed: 05/23/15 1023 Agency Development Manager: Signed 20-May-2015 ELECTROCARDIOGRAM, COMPLETE (ECG) (45988) Comments: ekg showed normal sinus rhythym, normal axis, no acute st/t wave changes Result: [MEASUREMENTS ANALYSIS] Date of Test: 05/20/2015 11:04:03; Heart Rate: 63; MD Interval: 210; QRS: 99; QT Interval: 408; Corrected QT Interval (QTc): 413; P Wave Dudley: 56; QRS Wave Dudley: 10; T Wave Dudley: 27; Blood Pressure: 152/76 [ECG DIAGNOSTIC STATEMENTS] Date of Test: 05/20/2015 11:04:03; Summary: Sinus Rhythm WITHIN NORMAL LIMITS 11-Apr-2015 12 Lead Electrocardiogram Result: Comments: See Note; NOTES: [facility] Cardiovascular Services [address] [place] [address] 12 Lead EKG 03/28/15 1548 MR#: [id number] Acct: [id number] Name: LUPE BOOGIE Rep #: [id number] : 1945 70 From: Mike Cota MD [...] Normal ECG Confirmed by CIPRIANO JC, MIKE ([id number]), subeditor TERRI DIOP ([id number]) on 04/11/2015 2:14:19 PM Referred By: CHRISTOPHER Confirmed By:MIKE COTA MD 04/11/15 141 4 Date Mike Cota MD CC: Enrike Gutierrez DO Date Dictated: 03/28/15 1548 Date Transcribed: 03/28/15 1548 Agency Development Manager: Signed 25-Dec-2014 Pulmonary Function Report Comp Result: Comments: See Note; NOTES: [facility] Pulmonary Services/Neurology [address] [place] [address] Pulmonary Function Test (Comp) MR#: [id number] Acct: [id number] Name: LUPE PHILLIPS Rep #: [id number] : 1945 69 From: Merlin Pop MD Referring Dr: Merlin Pop MD Status: REG CLI Ordering Dr: Merlin Pop MD Date: 11/27/14 Location: [facility] Sex: F C DATE OF SERVICE: [...] volumes. MERLIN POP MD T: NTS JOB: [id number] . Date: 11/28/14 Tech.: Temp: PBar: Height(in.): Weight(lbs.): Diagnosis: Medication: : Dyspnea Rest: Dyspnea Exercise: Cough: Productive (cc): Persistent: Smoker: How Long (pk/yrs): Stopped (yrs): Cigarettes: Cigars: 1 1438 <Electronically signed by Merlin Pop MD> Date Merlin Pop MD CC: Merlin Pop MD; Enrike Gutierrez DO Date Dictated: 11/03 Date Transcribed: 11/27/141628 Agency Development Manager: Signed 23-Oct-2014 PT Discharge Summary Result: Comments: See Note; NOTES: [facility] [address] [place] [address] Fax REHABILITATION SERVICES DISCHARGE SUMMARY MR#: [id number] Acct: [id number] Name: LUPE LOPEZ Rep #: [id number] : 1945 69 From: Barbie Mcguire Referring Dr.: Enrike Gutierrez DO Status: DIS RCR Eval Date: Dischar ge Date: 10/19/14 DATE OF SERVICE: Date of initial evaluation was September 26, 2014. Lupe Lopez is a 69-year-old female referred to physical therapy by Dr. Gutierrez with medical diagnosis of bilatera l knee [...] Sneakers. Barbie Mcguire DPT T: FERNIE JOB: [id number] <Electronically signed by Monika Mcguire > 10/23/14 1021 CC: Signed 23-Oct-2014 Chest WITH Contrast Result: Comments: See Note; NOTES: [facility] Imaging Services [address] [place] [address] CAT Scan Report MR#: [id number] Acct: [id number] Name: LUPE LOPEZ Rep #: [id number] : 1945 F 69 From: Johnny Gilman MD PCP: Enrike Gutierrez DO Status: REG CLI Study: Chest WITH Contrast Date of Exam: 10/23/14 Exam# [id number] Ordering Dr: Merlin Pop MD STUDY: CT [...] Johnny Gilman MD at 14:28 EDT Tel [phone], Service support [phone], Fax CC: Merlin Pop MD; Enrike Gutierrez DO Agency Development Manager: Signed 02-Oct-2014 Bilnehemias Elias Digital AND CAD Result: Comments: See Note; NOTES: [facility] Imaging Services [address] [place] [address] Breast Imaging Report MR#: [id number] Acct: [id number] Name: LUPE LOPEZ Rep #: [id number] : 1945 F 69 From: Johnny Gilman MD PCP: Enrike Gutierrez DO Status: REG CLI Study: Denisse Elias Digital AND CAD Date of Exam: 10/02/14 Exam# [id number] Ordering Dr: Enrike Gutierrez DO MAMMOGRAPHY - BILATERAL SCREENING REASON FOR [...] be [facility] the [facility] within 30 days. Approximately 10% of breast cancers are not detected by mammography. A normal mammogram should not delay biopsy of a clinically suspicious abnormality. Electronically Signed: Isma Gilman MD at 12:54 EDT Tel [phone], Service support [phone], CC: Enrike Gutierrez DO Agency Development Manager: Signed 27-Sep-2014 Inital Evaluation - PT Result: Comments: See Note; NOTES: [facility] [address] [place] [address]. [address] [place] [address] Fax REHABILITATION SERVICES INITIAL EVALUATION MR#: [id number] Acct: [id number] Name: LUPE LOPEZ Rep #: [id number] : 1945 69 From: Barbie Mcguire Referring DrBrooke: Enrike Gutierrez DO Status: REG RCR Insurance: PENDING SALE TO [facility]IC[facility] Date: DATE OF SERVICE: 09/26/2014 REASON FOR EVALUATION: Lupe is a 69-year-old female referred to physical therapy by Dr. Gutierrez with medical diagnosis of bilateral knee pain. [...] no stent that she does see a water pollution specialist. MEDICATIONS: The patient has a list if [...] fair. The patient will benefit [facility] to solve the following problems [...] pain. Barbie Mcguire DPT T: FERNIE JOB: [id number] <Electronically signed by Barbie Mcguire > 09/27/14 0823 CC: Signed For Medicare only, by signing this I certify the plan of care. Physicians Signature Date 14-Jun-2014 Knee 4 or More Views Result: Comments: See Note; NOTES: [facility] Imaging Services [address] [place] [address] Radiology Report MR#: [id number] Acct: [id number] Name: LUPE LOPEZ Rep #: [id number] : 1945 F 69 From: Frank Sewell MD PCP: Enrike Gutierrez DO Status: REG CLI Study: Knee 4 or More Views Date of Exam: 06/14/14 Exam# [id number] Ordering Dr: Enrike Gutierrez DO STUDY: X-R AY - RIGHT KNEE [...] at 7:48 EDT Tel , Service support [phone], CC: Enrike Gutierrez DO Agency Development Manager: Signed 14-Jun-2014 Knee 4 or More Views Result: Comments: See Note; NOTES: [facility] Imaging Services [address] [place] [address] Radiology Report MR#: [id number] Acct: [id number] Name: LUPE LOPEZ Rep #: [id number] : 1945 F 69 From: Frank Sewell MD PCP: Enrike Gutierrez DO Status: REG CLI Study: Knee 4 or More Views Date of Exam: 06/14/14 Exam# [id number] Ordering Dr: Enrike Gutierrez DO STUDY: X-R AY - LEFT KNEE [...] at 7:50 EDT Tel , Service support [phone], RAD/Knee 4 or More Views IMPRESSION: Mild relative narrowing of the medial co mpartment joint space left knee. Generalized osteopenia. Electronically Signed: Ming Sewell MD at 7:50 EDT Tel , Service support [phone], CC: Enrike Gutierrez DO Agency Development Manager: Signed 16-May-2014 Carotid Duplex Ultrasound Result: Comments: See Note; NOTES: [facility] Cardiovascular Services [address] [place] [address] 05/03/14 1014 MR#: [id number] Acct: [id number] Name: LUPE LOPEZ Rep #: [id number] : 1945 69 From: Brice Murphy MD Attending Dr: Enrike Gutierrez DO Status: REG CLI Ordering Dr: Date: 05/16/14 Location: [facility] Sex: F C Admitted: Rt. Velocities/BP Lt. [...] left ve rtebral artery. Procedure Carotid Duplex 16724. The exam was diagnostic. Exam performed in department. Interpretation Summary Mild (<50%) stenosis right extracranial internal carotid. Mild (<50%) stenosis left extracranial internal carotid. Flow within the vertebral arteries is antegrade bilaterally. ___ Ordering Physician: Enrike Gutierrez D.O. Performed By: Rufino Ashley, RVT 05/03/14 1107 Date ____ Brice Murphy MD CC: Enrike Gutierrez DO Date Dictated: 05/03/14 1014 Date Transcribed: 05/03/14 1107 Agency Development Manager: Signed 23-Apr-2014 Spirometry (43057) Comments: good effort and curve normal Result: 17-Apr-2014 Brain/Head W/WO Contrast Result: Comments: See Note; NOTES: [facility] Imaging Services [address] [place] [address] CAT Scan Report MR#: [id number] Acct: [id number] Name: LUPE LOPEZ Rep #: [id number] : 1945 F 69 From: Johnny Gilman MD PCP: Enrike Gutierrez DO Status: REG CLI Study: Brain/Head W/WO Contrast Date of Exam: 04/17/14 Exam# [id number] Ordering Dr: Enrike Gutierrez DO STUDY: CT BRAIN WITH AND WITHOUT [...] Johnny Gilman MD at 15:01 EST Tel [phone], Service support [phone], CC: Enrike Gutierrez DO Agency Development Manager: Signed 17-Apr-2014 CTA Chest W/WO Contrast Result: Comments: See Note; NOTES: [facility] Imaging Services [address] [place] [address] CAT Scan Report MR#: [id number] Acct: [id number] Name: LUPE LOPEZ Rep #: [id number] : 1945 F 69 From: Johnny Gilman MD PCP: Enrike Gutierrez DO Status: REG CLI Study: CTA Chest W/WO Contrast Date of Exam: 04/17/14 Exam# [id number] Ordering Dr: Enrike Gutierrez DO STUDY: C TA CHEST REASON FOR [...] Johnny Gilman MD at 14:38 EST Tel [phone], Service support [phone], CC: Enrike Gutierrez DO Agency Development Manager: Signed Immunization Name Dates Details Influenza, preserv. 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 [place], [place], [address] STO See Note (Normal) Comments: Reason for Laboratory Test . [facility] iFOBOccult Blood Negative 51-Pgz-510701:07 CBC W/Diff, Automated Comments: Reason for Laboratory Test .[facility] [address] [place], [address] Absolute Lymph 1.23 {X10_3/ul} (Normal) [...] 4.2-5.4 WBC 3.4 K/mm3 (Abnormal) Range: 4.4-11.0 49-Mkz-435327:07 Comprehensive Metabolic Profil Comments: Reason for Laboratory Test .[facility] [address] [place], [place], [address] GAP 7 (Normal) Range: 5-15 CO2 29.0 [...] Comments: Please note revised GLUCOSE reference range vzrselryn47/02/2018. 85-Whe-570993:07 Ferritin Comments: Reason for Laboratory Test .[facility] [address] [place], [place], [address] FERRITIN 26 ng/mL (Normal) Range: 8-252 37-Cvj-308475:07 Iron+Iron Binding Capacity Comments: Reason for Laboratory Test .[facility] [address] [place], [place], [address] IRON SATURATION 17.0 % (Normal) Range: 15.0-55.0 IRON 56 ug/dL (Normal) Range: 50-170 TIBC 329 ug/dL (Normal) Range: 250-450 61-Guv-821806:47 CBC W/Diff, Automated Comments: [facility] [address] [place], [place], [address] Absolute Lymph 1.23 {X10_3/ul} (Normal) Range: 0.83-4.51 [...] 4.2-5.4 WBC 4.8 K/mm3 (Normal) Range: 4.4-11.0 61-Pjp-828549:47 Comprehensive Metabolic Profil Comments: [facility] [address] [place], [address] GAP 9 (Normal) Range: 5-15 CO2 25.0 [...] Comments: Please note revised GLUCOSE reference range mwszawurw95/02/2018. 80-Bjz-805912:47 Hemoglobin A1c Comments: [facility] [address] [place], [place], [address] HGB A1C 5.5 % (Normal) Range: 4.2-6.3 57-Ncj-711130:47 Lipid Profile Comments: [facility] [address] [place], [place], [address] VLDL 18 mg/dL (Normal) Range: 5-40 LDL [...] 200-240 mg/dL Borderline >240 mg/dL High Risk 42-Ecj-649791:47 Thyroid Stim Hormone (TSH) Comments: [facility] [address] [place], [address] TSH 4.65 {uIU/mL} (Abnormal) Range: 0.358-3.74 94-Yim-970106:32 Thyroid Stim Hormone (TSH) Comments: [facility] [address] [place], [address] TSH 2.85 {uIU/mL} (Normal) Range: 0.358-3.74 67-Xue-69089:27 Microscopic Examination Comments: PATIENT WAS FASTINGPERFORMED BY: [facility] Jtibuf3455 [facility] [id number] Bacteria Few (Normal) Mucus Threads Present (Normal) Cast Type Hyaline casts (Normal) Casts Present {/lpf} (Abnormal) Epithelial Cells (non renal) 0-10 {/hpf} (Normal) Range: 0 - 10 RBC 0-2 {/hpf} (Normal) Range: 0 - 2 WBC 0-5 {/hpf} (Normal) Range: 0 - 5 20-Jul-20178:49 CBC W/Diff, Automated Comments: Reason for Laboratory Test [facility] [address] [place], [address] Absolute Lymph 1.48 {X10_3/ul} (Normal) [...] Metabolic Profil Comments: Reason for Laboratory Test [facility] [address] [place], [place], [address] GAP 5 (Normal) Range: 5-15 CO2 31.0 [...] Comments: Please note revised GLUCOSE reference range ygruhxqit81/02/2018. 20-Jul-20178:49 Ferritin Comments: Reason for Laboratory Test [facility] [address] [place], [address] FERRITIN 29 ng/mL (Normal) Range: 8-252 20-Jul-20178:49 Iron Comments: Reason for Laboratory Test [facility] [address] [place], [address] IRON 55 ug/dL (Normal) Range: 50-170 :32 Lipid Profile Comments: [facility] [address] [place], [place], [address] VLDL 18 mg/dL (Normal) Range: 5-40 LDL [...] mg/dL High Risk :32 Liver Profile Comments: [facility] [address] [place], [address] D BILI 0.09 mg/dL (Normal) Range: 0.00-0.30 T BILI 0.50 mg/dL (Normal) Range: 0.20-1.00 ALT 14 U/L (Normal) Range: 13-56 ALK P 55 U/L (Normal) Range: 45-117 AST 19 U/L (Normal) Range: 15-37 GLOB 3.0 g/dL (Normal) Range: 2.2-4.2 ALB 3.7 g/dL (Normal) Range: 3.2-5.0 T PROT 6.7 g/dL (Normal) Range: 6.4-8.2 :32 Thyroid Stim Hormone (TSH) Comments: [facility] [address] [place], [address] TSH 5.71 {uIU/mL} (Abnormal) Range: 0.358-3.74 :27 SED RATE ERYTHROCYTE (84228) Comments: PATIENT WAS FASTINGPERFORMED BY: [employer]370 [facility] [id number] Sedimentation Rate-Westergren 8 mm/h (Normal) Range: 0-40 :27 C-REACTIVE PROTEIN (52038) Comments: PATIENT WAS FASTINGPERFORMED BY: [employer] Icwpxn2773 [facility] [place] [id number] C-Reactive Protein, Quant 0.6 mg/L (Normal) Range: 0.0-4.9 :27 FOLIC ACID SERUM (19212) Comments: PATIENT WAS FASTINGPERFORMED BY: VTM Fmcqfi7492 [facility] [id number] Folate (Folic Acid), Serum >20.0 ng/mL (Normal) Comments: A serum folate concentration of less than 3.1 ng/mL isconsidered to represent clinical deficiency. :27 VITAMIN B-12 (CYANOCOBALAMIN) Comments: PATIENT WAS FASTINGPERFORMED BY: [employer] Dtjwbs6863 [facility] [id number] (72182) Vitamin B12 681 pg/mL (Normal) Range: 232-1245 :27 TSH (THYROID STIMULATING Comments: PATIENT WAS FASTINGPERFORMED BY: [employer] Gcyqob0881 [facility] [id number] HORMONE) (28947) TSH 6.650 {uIU/mL} (Abnormal) Range: 0.450-4.500 :27 LIPID PANEL (21204) Comments: PATIENT WAS FASTINGPERFORMED BY: ZimpleMoneySocorro General HospitalDsnaak2029 [facility] [id number] LDL/HDL Ratio 1.4 {ratio} (Normal) Range: 0.0-3.2 [...] mg/dL (Normal) Range: 100-199 :27 HGB A1C (65260) Comments: PATIENT WAS FASTINGPERFORMED BY: [employer] Kdpuho1788 [facility] [id number] Hemoglobin A1c 5.6 % (Normal) Range: 4.8-5.6 Comments: . Pre-diabetes: 5.7 - 6.4 Diabetes: >6.4 Glycemic control for adults with diabetes: <7.0 :27 serum free light chains Comments: PATIENT WAS FASTINGPERFORMED BY: [employer] Edcmbd4058 [facility] [id number] (86460) Murphy/Lambda Ratio,S 1.18 (Normal) Range: 0.26-1.65 Free Lambda Lt Chains,S 19.1 mg/L (Normal) Range: 5.7-26.3 Free Murphy Lt Chains,S 22.5 mg/L (Abnormal) Range: 3.3-19.4 :27 urine immunofixation (41271) Comments: PATIENT WAS FASTINGPERFORMED BY: Z[facility]MoneyCommunity Medical CenterBjuglw4761 [facility] [id number] THEE Interpretation:U UPEIP (Normal) Comments: No monoclonality detected. :27 serum immunofixation (31194) Comments: PATIENT WAS FASTINGPERFORMED BY: ZimpleMoneyCommunity Medical CenterQbggjq2309 [facility] [id number] Immunoglobulin M, Qn, Serum 68 mg/dL (Normal) Range: 26-217 Immunoglobulin A, Qn, Serum 111 mg/dL (Normal) Range: 64-422 Immunoglobulin G, Qn, Serum 669 mg/dL (Abnormal) Range: 700-1600 Immunofixation Result, Serum UPEIP (Normal) Comments: No monoclonality detected. :27 URINALYSIS, W/ MICRO (44423) Comments: PATIENT WAS FASTINGPERFORMED BY: ZimpleMoneyCommunity Medical CenterRzvtff3252 [facility] [id number] Microscopic Examination See below: (Normal) Comments: Microscopic was indicated and was performed. Microscopic Examination MICRON (Normal) Comments: Microscopic follows if indicated. Nitrite, Urine Negative (Normal) Urobilinogen,Semi-Qn 0.2 mg/dL (Normal) Range: 0.2-1.0 Bilirubin Negative (Normal) Occult Blood Negative (Normal) Ketones Negative (Normal) Glucose Negative (Normal) Protein Negative (Normal) WBC Esterase Negative (Normal) Appearance Clear (Normal) Urine-Color Yellow (Normal) pH 6.0 (Normal) Range: 5.0-7.5 Specific Angela 1.019 (Normal) Range: 1.005-1.030 :27 METABOLIC PANEL, COMPREHENSIVE Comments: PATIENT WAS FASTINGPERFORMED BY: ZimpleMoneyCommunity Medical CenterDwtjug3723 [facility] [id number] (53568) ALT (SGPT) 12 [iU]/L (Normal) Range: 0-32 [...] 8-27 Glucose 91 mg/dL (Normal) Range: 65-99 2-Wad-793085:14 CBC W/Diff, Automated Comments: Reason for Laboratory Test .[facility] [address] [place], [place], [address] Absolute Lymph 0.91 {X10_3/ul} (Normal) Range: 0.83-4.51 [...] 4.2-5.4 WBC 5.1 K/mm3 (Normal) Range: 4.4-11.0 2-Cmw-010878:14 Comprehensive Metabolic Profil Comments: Reason for Laboratory Test .Is Patient Taking Vitamins or Folic Acid Supplements? [facility] [address] [place], [place], [address] GAP 7 (Normal) Range: 5-15 CO2 30.0 [...] 7-18 GLU 100 mg/dL (Normal) Range: 70-110 7-Bfc-517817:14 Ferritin Comments: Reason for Laboratory Test .Is Patient Taking Vitamins or Folic Acid Supplements? [facility] [address] [place], [address] FERRITIN 42 ng/mL (Normal) Range: 8-252 7-Amo-875804:14 Folates, (Folic Acid) Comments: Reason for Laboratory Test .Is Patient Taking Vitamins or Folic Acid Supplements? [facility] [address] [place], [address] FOLATES 82.80 ng/mL (Abnormal) Range: 3.1-55.4 Comments: Please note revised Folates reference range dqeasrypr86/14/2017. 2-Nuk-591985:14 Iron+Iron Binding Capacity Comments: Reason for Laboratory Test .Is Patient Taking Vitamins or Folic Acid Supplements? [facility] [address] [place], [address] IRON SATURATION 10.7 % (Abnormal) Range: 15.0-55.0 IRON 36 ug/dL (Abnormal) Range: 50-170 TIBC 335 ug/dL (Normal) Range: 250-450 0-Ath-235303:14 Vitamin B12 > 2000 pg/mL (Abnormal) Comments: Reason for Laboratory Test .[facility] [address] [place], [address] Range: 211-911 00-Otx-808878:06 Stool Occult Blood iFOB Comments: [facility] [address] [place], [address] STOB See Note (Normal) Comments: Reason for Laboratory Test . STOB iFOBOccult Blood Negative 98-Lwn-56768:18 CBC W/Diff, Automated Comments: [facility] [address] [place], [address] Absolute Lymph 1.31 {X10_3/ul} (Normal) Range: 0.83-4.51 [...] 4.2-5.4 WBC 3.4 K/mm3 (Abnormal) Range: 4.4-11.0 67-Jit-35438:18 Comprehensive Metabolic Profil Comments: Is Patient Taking Vitamins or Folic Acid Supplements? [facility] [address]om[address] [facility] [place], [place], [address] GAP 7 (Normal) Range: 5-15 CO2 28.0 [...] Patient Taking Vitamins or Folic Acid Supplements? [facility] [address] [place], [address] FERRITIN 16 ng/mL (Normal) Range: 8-252 :18 Folates, (Folic Acid) Comments: Is Patient Taking Vitamins or Folic Acid Supplements? [facility] [address] [place], [place], [address] FOLATES 67.80 ng/mL (Abnormal) Range: 3.1-17.5 :18 Iron+Iron Binding Capacity Comments: Is Patient Taking Vitamins or Folic Acid Supplements? [facility] [address] [place], [place], [address] IRON SATURATION 11.2 % (Abnormal) Range: 15.0-55.0 IRON 41 ug/dL (Abnormal) Range: 50-170 TIBC 367 ug/dL (Normal) Range: 250-450 :18 Vitamin B12 1297 pg/mL (Abnormal) Comments: [facility] [address] [place], [place], [address] Range: 211-911 37-Eft-555973:09 Urinalysis, Office (27797) UA - LEUKOCYTE ESTERASE Negative (Normal) UA - NITRITE Negative (Normal) URINE UROBILINGN DIPAK TIMED 2 mg/dL (Normal) UA - PROTEIN Negative mg/dL (Normal) UA - PH 6.0 (Normal) UA - BLOOD Hemolyzed Trace (Normal) UA - SPECIFIC GRAVITY 1.015 (Normal) UA - KETONES Negative mg/dL (Normal) UA - BILIRUBIN Negative (Normal) UA - GLUCOSE Negative (Normal) :09 Blood Glucose , Office (50853) Blood Glucose , Office 91 (Normal) :09 HgA1C , Office (22435) HgA1C , Office 5.3 % (Normal) Range: 4.6 - 7.1 :01 CBC W/Diff, Automated Comments: [facility] [address] [place], [place], [address] Absolute Lymph 0.96 {X10_3/ul} (Normal) Range: 0.83-4.51 [...] 4.2-5.4 WBC 5.0 K/mm3 (Normal) Range: 4.4-11.0 13-Weq-35501:01 Comprehensive Metabolic Profil Comments: [facility] [address] [place], [address] GAP 12 (Normal) Range: 5-15 CO2 24.0 [...] 7-18 GLU 90 mg/dL (Normal) Range: 70-110 : Hemoglobin A1c Comments: [facility] [address] [place], [place], [address] HGB A1C 5.3 % (Normal) Range: 4.2-6.3 : THEE + Protein Elect, Serum Comments: Is Patient Fasting? [facility] (refer to report for specific site)refer to report for address and phone number NOTE: Comment (Normal) Comments: Protein electrophoresis scan will follow via computer,mail, or roll changer delivery. THEE RESULT,S Comment (Normal) Comments: No monoclonality detected. A/G RATIO 1.2 (Normal) Range: 0.7-1.7 GLOBULIN, TOTAL 3.1 g/dL (Normal) Range: 2.2-3.9 M-SPIKE g/dL (Normal) Comments: Not Observed GAMMA GLOBULIN 0.7 g/dL (Normal) Range: 0.4-1.8 BETA GLOBULIN 0.9 g/dL (Normal) Range: 0.7-1.3 TFFXU-6-MTSA 1.0 g/dL (Normal) Range: 0.4-1.0 GXOTX-2-FTYI 0.5 g/dL (Abnormal) Range: 0.0-0.4 ALBUMIN 3.6 [...] (Normal) Comments: No monoclonality detected.Performed at: - [facility] [id number] Director: Samm Galvan PhD, Phone: [phone] : Lipid Profile Comments: [facility] [address] [place], [address] VLDL 19 mg/dL (Normal) Range: [...] Risk :01 Thyroid Stim Hormone (TSH) Comments: [facility] [address] [place], [address] TSH 4.87 {uIU/mL} (Abnormal) Range: 0.358-3.74 :01 Vitamin D,25 Hydroxy Comments: [facility] [address] [place], [address] Vitamin D 25-OH 27.3 ng/mL (Normal) Comments: Vitamin D 25(OH) Status Range Deficiency <20 ng/mL (50nmol/L) Insuffciency 20 - 30 ng/mL (50 - 75 nmol/L) Sufficiency 30 - 100 ng/mL (75 - 250 nmol/L) Toxicity >100 ng/mL (>250 nmol/L) :54 CBC W/Diff, Automated Comments: [facility] [address] [place], [address] Absolute Lymph 1.70 {X10_3/ul} (Normal) Range: [...] 4.2-5.4 WBC 4.5 K/mm3 (Normal) Range: 4.4-11.0 65-Xnr-32885:54 Comprehensive Metabolic Profil Comments: 'TROP' Serial specimen #1, #2, #3, or #4: 1[facility] [address] [place], [place], [address] GAP 8 (Normal) Range: 5-15 CO2 25.0 [...] (Normal) Range: 70-110 :54 Hemoglobin A1c Comments: [facility] [address] [place], [place], [address] HGB A1C 5.9 % (Normal) Range: 4.2-6.3 :54 Lipid Profile Comments: 'TROP' Serial specimen #1, #2, #3, or #4: [facility] [address] [place], [place], [address]) VLDL 31 mg/dL (Normal) Range: 5-40 LDL [...] Serial specimen #1, #2, #3, or #4: [address] [place] [address] [place], [address] TSH 4.73 {uIU/mL} (Abnormal) Range: 0.358-3.74 25-Ggk-98493:54 Troponin-I Comments: 'TROP' Serial specimen #1, #2, #3, or #4: [address] [place] [address] [place], [address] TROPONIN-I < 0.02 ng/mL (Normal) Comments: TROPONIN-I EXPECTED VALUES <0.05 NEGATIVE 0.06 - 0.59 AT RISK OF VA > OR = 0.60 SUGGEST VA 85-Hwj-872725:51 CBC W/Diff, Auto - EPLAB Comments: Order Date: 01/01/16Order Info: [id number] - *CBC w/Diff - oncology ONLYComments: DRAW AND HOLD SERUM TUBEOrder Date: 01/01/16Order Info: [id number] - *CBC w/Diff - oncology ONLYComments: DRAW AND HOLD SERUM Only TUBEAt [facility] Out[facility] Oncologypatients receive CBC w/auto Differential ONLY. Physicianwill place an order for a manual differential or Pathologistreview at his discretion. [facility]. [address] [place] [address] LICENSED FUNERAL DIRECTOR: JOSE KOHLI DO PH:[phone] Date: 01/01/16Order Info: [id number] - *MISC - Miscellaneous Lab Test #1Comments: Test(s) Ordered by Physician:[facility] [address] [place], [address] Absolute Lymph 1.39 {X10_3/uL} (Normal) [...] 4.2-5.4 WBC 4.7 K/mm3 (Normal) Range: 4.4-11.0 67-Wgj-306040:51 Comprehensive Metabolic Comments: Order Date: 01/01/16Order Info: [...] Patient Taking Vitamins or Folic Acid Supplements? [facility] [address] [place], [place], [address] GAP 2 (Abnormal) Range: 5-15 CO2 29.0 [...] 7-18 GLU 89 mg/dL (Normal) Range: 70-110 08-Vgn-359408:51 Ferritin Comments: Order Date: 01/01/16Order Info: 0786-1 - *CMP Complete Metabolic PanelOrder Info: 3084- - *Uric Acid BloodOrder Info: 2499-09 - *TIBCOrder Info: 2498-4 - *IronOrder Info: 2276-4 - *FerritinComments: Ashlyn son:Order Info: 2532-0 - *LDH -LDH (Lactate Dehydrogenase)Order Date: 01/01/16Order Info: 0453-1 - *MISC - Miscellaneous Lab Test #1Comments: Test(s) Ordered by Physician:FOLATESSerial Specimen #1, # 2 or #3? 1Is Patient Taking Vitamins or Folic Acid Supplements? [facility] [address] [place], [address] FERRITIN 14 ng/mL (Normal) Range: 8-252 75-Vhc-860376:51 Folates, (Folic Acid) Comments: Order Date: 01/01/16Order Info: 0786-1 - *CMP Complete Metabolic PanelOrder Info: 3081 - *Uric Acid BloodOrder Info: 2500-7 - *TIBCOrder Info: 2498-4 - *IronOrder Info: 2276-4 - *FerritinComments: Ashlyn son:Order Info: 2532-0 - *LDH -LDH (Lactate Dehydrogenase)Order Date: 01/01/16Order Info: 0453-1 - *MISC - Miscellaneous Lab Test #1Comments: Test(s) Ordered by Physician:FOLATESSerial Specimen #1, # 2 or #3? 1Is Patient Taking Vitamins or Folic Acid Supplements? [facility] [address]dbc0814 [facility] [place], [place], [address] FOLATES 72.40 ng/mL (Abnormal) Range: 3.1-17.5 25-Wad-799162:51 Iron Comments: Order Date: 01/01/16Order Info: 0786-1 [...] Patient Taking Vitamins or Folic Acid Supplements? [facility] [address]bk[address] [facility] [place], [place], [address] IRON 40 ug/dL (Abnormal) Range: 50-170 18-Zsm-025207:51 Iron Binding Capacity,Total Comments: Order Date: 01/01/16Order [...] Patient Taking Vitamins or Folic Acid Supplements? [facility] [address] [place], [address](880) TIBC 354 ug/dL (Normal) Range: 250-450 28-Wjd-730474:51 LDH 199 U/L (Normal) Comments: Order Date: [...] Patient Taking Vitamins or Folic Acid Supplements? [facility] [address] [place], [place], [address] Range: 84-246 28-Qmu-694118:51 Uric Acid Comments: Order Date: 01/01/16Order Info: [...] Patient Taking Vitamins or Folic Acid Supplements? [facility] [address]ys[address] [place], [place], [address] URIC 3.9 mg/dL (Normal) Range: 2.6-6.0 Comments: The drugs N-Acetylcysteine and Metamizole may falsely deressthis assay. 22-Jsa-025291:51 Vitamin B12 809 pg/mL (Normal) Comments: Order Date: 01/01/16Order Info: [id number] - *B-12Order Date: 01/01/16Order Info: [id number] - *MISC - Miscellaneous [facility] [address]vmyfj[address] [place], [place], [address] Range: 211-911 58-Fmr-308717:41 D-Dimer Quantitative (DVT/PE) Comments: Order Date: 06/15/16Order Info: [id number] - *DDIMQ - Fibrin Degrd Ultrsens Qual/SemiquanOrder Date: 06/15/16Order Info: [id number] - *DDIMQ - Fibrin Degrd Ultrsens Qual/SemiquanWFost[facility] [address]jcirw[address] [place], [address] D-DIMER QUANT 0.28 {FEU/ug/m} (Normal) Range: 0.27-0.49 Comments: NORMAL D-Dimer level (<0.50) indicates no DVT or PE. 3-Mjx-618630:15 Thyroxine (T4) Free, Direct, S Comments: PATIENT NOT FASTINGPERFORMED BY: [employer] Jgvfmp0102 [facility] [id number] T4,Free(Direct) 1.22 ng/dL Range: 0.82-1.77 (Normal) Triiodothyronine,Free,Seru 2.2 pg/mL (Normal) Comments: PATIENT NOT FASTINGPERFORMED BY: [employer] Spurgf6535 [facility] [id number] 4:15 m Range: 2.0-4.4 Written Authorization WAR (Normal) Comments: PATIENT NOT FASTINGPERFORMED BY: [employer] Xdewlj6003 [facility] [id number] 4:15 Comments: Written Authorization Received.Authorization received from MAO BENITEZ [id number] by Jyothi Boland 9-Myq-377970:15 SPEP ([id number]) Comments: PATIENT NOT FASTINGPERFORMED BY: [employer] Xginhg8638 [facility] [id number] Please note: SPRCS (Normal) Comments: Protein electrophoresis scan will follow via computer, mail, orcourier delivery. A/G Ratio 1.3 (Normal) Range: 0.7-1.7 Globulin, Total 2.8 g/dL (Normal) Range: 2.2-3.9 M-Abhinav Not Observed g/dL (Normal) Gamma Globulin 0.8 g/dL (Normal) Range: 0.4-1.8 Beta Globulin 0.8 g/dL (Normal) Range: 0.7-1.3 Xrunm-3-Mtbeayce 0.9 g/dL (Normal) Range: 0.4-1.0 Xymcb-5-Lifxusww 0.2 g/dL (Normal) Range: 0.0-0.4 Albumin 3.6 g/dL (Normal) Range: 2.9-4.4 Protein, Total, Serum 6.4 g/dL (Normal) Range: 6.0-8.5 7-Gwy-566948:15 UPEP (82316) Comments: PATIENT NOT FASTINGPERFORMED BY: [employer] Kbkjws2623 [facility] [id number] Please note: SPRCS (Normal) Comments: Protein electrophoresis scan will follow via computer, mail, orcourier delivery. M-Abhinav, % Not Observed % (Normal) Gamma Globulin, U 39.7 % (Normal) Beta Globulin, U 30.6 % (Normal) Kgppi-9-Ggucuiox, U 6.8 % (Normal) Xlenf-2-Nzhtvgjs, U 2.0 % (Normal) Albumin, U 21.0 % (Normal) Protein,Total,Urine 4.5 mg/dL (Normal) 1-Hjg-710060:15 TSH (65577) Comments: PATIENT NOT FASTINGPERFORMED BY: [facility] Zsbajz8650 [facility] [id number] TSH 7.400 {uIU/mL} (Abnormal) Range: 0.450-4.500 4-Rde-329546:15 CBC WITH MANUAL DIFF (84926) Comments: PATIENT NOT FASTINGPERFORMED BY: [facility] Xfjgcf3564 [facility] [id number] Immature Grans (Abs) 0.0 {x10E3/uL} (Normal) Range: [...] 3.77-5.28 WBC 4.5 {x10E3/uL} (Normal) Range: 3.4-10.8 3-Jdl-989107:15 RETICULOCYTE COUNT (05129) Comments: PATIENT NOT FASTINGPERFORMED BY: [facility] Bahlbc3817 [facility] [id number] Reticulocyte Count 1.0 % (Normal) Range: 0.6-2.6 2-Gev-065668:15 LDH (LD) (LACTATE DEHYDROGENASE) Comments: PATIENT NOT FASTINGPERFORMED BY: [facility] Nyhsfr6074 [facility] [id number] (85896) LDH 185 [iU]/L (Normal) Range: 119-226 8-Mhu-772186:15 Iron Binding Capacity (TIBC) Comments: PATIENT NOT FASTINGPERFORMED BY: [facility]6370 [facility] [id number] (56065) Iron Saturation 16 % (Normal) Range: 15-55 Iron, Serum 55 ug/dL (Normal) Range: 27-139 UIBC 281 ug/dL (Normal) Range: 118-369 Iron Bind.Cap.(TIBC) 336 ug/dL (Normal) Range: 250-450 7-Iye-051874:15 Vitamin B-12 (cyanocobalamin) Comments: PATIENT NOT FASTINGPERFORMED BY: [facility]6370 [facility] [id number] (21522) Vitamin B12 979 pg/mL (Abnormal) Range: 211-946 4-Fge-727554:15 Folic Acid Serum (85161) Comments: PATIENT NOT FASTINGPERFORMED BY: [facility]6370 [facility] [id number] Folate (Folic Acid), Serum >20.0 ng/mL (Normal) Comments: A serum folate concentration of less than 3.1 ng/mL isconsidered to represent clinical deficiency. 9-Izf-094573:15 Ferritin (37856) Comments: PATIENT NOT FASTINGPERFORMED BY: [facility]6370 [facility] [id number] Ferritin, Serum 30 ng/mL (Normal) Range: 15-150 65-Cxd-208366:05 CBC W/Diff, Automated Comments: [facility] Ur[address]obsngbn[address] [place], [place], [address] Absolute Lymph 1.49 {X10_3/ul} (Normal) Range: 0.83-4.51 [...] 4.2-5.4 WBC 4.6 K/mm3 (Normal) Range: 4.4-11.0 88-Khi-694742:05 Comprehensive Metabolic Profil Comments: [facility] Xlvwvttjom67[address] [place], [place], [address] GAP 8 (Normal) Range: 5-15 CO2 28.0 [...] 7-18 GLU 86 mg/dL (Normal) Range: 70-110 68-Bsz-623468:05 Hemoglobin A1c Comments: [facility] [address] [place], [place], [address] HGB A1C 5.2 % (Normal) Range: 4.2-6.3 19-Hcz-510398:05 Lipid Profile Comments: [facility] [address] [place], [place], [address] VLDL 22 mg/dL (Normal) Range: 5-40 LDL [...] 200-240 mg/dL Borderline >240 mg/dL High Risk 82-Dgb-955873:05 Microalb:Creat Ratio,Random UR Comments: [facility] [address] [place], [address] MALB:CREAT 5.0 {mg/g_CRE} (Normal) MICROALBUMIN,UR 7.2 mg/L (Normal) UR CREAT 144.00 mg/dL (Normal) 48-Rlb-002746:05 Vitamin D,25 Hydroxy Comments: [facility] Xckcosetic[address] [place], [address] Vitamin D 25-OH 40.3 ng/mL (Normal) Comments: Vitamin D 25(OH) Status Range Deficiency <20 ng/mL (50nmol/L) Insuffciency 20 - 30 ng/mL (50 - 75 nmol/L) Sufficiency 30 - 100 ng/mL (75 - 250 nmol/L) Toxicity >100 ng/mL (>250 nmol/L) 65-Yvy-72782:27 CBC with auto diff (82794) Comments: PATIENT WAS FASTINGPERFORMED BY: [facility]CoCommunity [facility] CenterIksjvm7645 [facility] [id number] Immature Grans (Abs) 0.0 {x10E3/uL} (Normal) Range: [...] 3.77-5.28 WBC 3.3 {x10E3/uL} (Abnormal) Range: 3.4-10.8 :35 MAGNESIUM (20510) Comments: PATIENT NOT FASTINGPERFORMED BY: [facility]CoCommunity [facility] CenterFndtka9030 [facility] [id number] Magnesium, Serum 1.8 mg/dL (Normal) Range: 1.6-2.3 :35 POTASSIUM SERUM (25533) Comments: PATIENT NOT FASTINGPERFORMED BY: [facility]CoCommunity [facility] CenterBdxnrt1024 [facility] [id number] Potassium, Serum 4.5 mmol/L (Normal) Range: 3.5-5.2 :00 CBC W/Diff, Automated Comments: [facility] Sl[address] [place] [address], [address] Absolute Lymph 0.91 {X10_3/ul} (Normal) Range: 0.83-4.51 [...] 4.2-5.4 WBC 3.5 K/mm3 (Abnormal) Range: 4.4-11.0 66-Gep-00261:00 Comprehensive Metabolic Profil Comments: [facility] [address]sewanvtvy[address] [place], [place], [address] GAP 8 (Normal) Range: 5-15 CO2 31.0 [...] 7-18 GLU 75 mg/dL (Normal) Range: 70-110 14-Exv-63667:00 Erythrocyte Sed Rate Comments: [facility] [address] [place], [address] SED RATE 21 mm/h (Normal) Range: 0-30 :37 CBC W/Diff, Automated Comments: [facility] [address] [place], [address] Absolute Lymph 1.96 {X10_3/ul} (Normal) [...] 4.4-11.0 :37 Thyroid Stim Hormone (TSH) Comments: [facility] [address] [place], [address] TSH 4.43 {uIU/mL} (Abnormal) Range: 0.358-3.74 4-Pla-949902:37 Vitamin B12 969 pg/mL (Abnormal) Comments: [facility] [address]tsigxlu[address] [place], [address] Range: 211-911 :00 CBC W/ Manual Differential Comments: [facility] [address]aq38[address] [place], [address] RED CELL MORPH NORM C+C {NORMAL} [...] Contrast this admission? NIs Patient on Heparin? [facility] [address]sfq[address] [place], [address] GAP 7 (Normal) Range: 5-15 CO2 30.0 [...] Contrast this admission? NIs Patient on Heparin? [facility] [address] [place] [address], [address] FREE T3 2.1 pg/mL (Abnormal) Range: 2.18-3.98 :00 T4 Free Direct Comments: ADD ON TSHHas Patient had X-rays with Contrast this admission? NIs Patient on Heparin? [facility] [address]wajmxchf4153 [place], [address] T4 FREE DIRECT 1.30 ng/dL (Normal) Range: 0.76-1.46 :00 Thyroid Peroxidase AB Comments: [facility] (refer to report for specific site)refer to report for address and phone number TPO AB [phone] 6 {IU/mL} (Normal) Range: 0-34 Comments: Performed at: [address] [id number] Director: Samm Galvan PhD, Phone: [phone] 29-Jan-20160:00 Thyroid Stim Hormone (TSH) Comments: ADD ON TSHHas Patient had X-rays with Contrast this admission? NIs Patient on Heparin? [facility] [address]cc[address] [place], [place], [address] TSH 5.27 {uIU/mL} (Abnormal) Range: 0.358-3.74 79-Ylu-713640:38 CBC W/Diff, Auto - EPLAB Comments: At [facility] Outpatient [facility] Medical Oncologypatients receive CBC w/auto Differential ONLY. Physicianwill place an order for a manual differential or Pathologistreview at his discretion. [facility] OUTPATIENT [facility]. [address] [place] [address] LICENSED FUNERAL DIRECTOR: JOSE KOHLI DO PH:[phone] Health [facility] Campus [address]zam[address] [place], [place], [address] Absolute Lymph 1.55 {X10_3/uL} (Normal) Range: 0.83-4.51 [...] 4.2-5.4 WBC 5.4 K/mm3 (Normal) Range: 4.4-11.0 49-Bfs-638966:19 Pathology Report Comments: PERFORMED BY: KWCYT [facility] Cyto Utljz85777 [facility] [id number] BY: [facility] Dermatopathology Jbowdkr[address] [id number] Information: [id number] See MATER Comments: Material submitted: .PUNCH BIOPSY [...] SPECIMEN IS SUBMITTEDIN CASSETTE(S) A./CORCOR/CORPathologist provided ICD-10:D04.62CPT .097445 69-Waz-510900:15 HgA1C , Office (41737) HgA1C , Office 5.7 % (Normal) Range: 4.6 - 7.1 00-Xei-863206:13 CBC W/Diff, Automated Comments: [facility] [address] [place], [place], [address] Absolute Lymph 1.90 {X10_3/ul} (Normal) Range: 0.83-4.51 [...] 4.2-5.4 WBC 4.5 K/mm3 (Normal) Range: 4.4-11.0 69-Qqs-195298:13 Comprehensive Metabolic Profil Comments: [facility] [address]ipkjc[address] [place], [place], [address] GAP 6 (Normal) Range: 5-15 CO2 30.0 [...] 7-18 GLU 89 mg/dL (Normal) Range: 70-110 46-Xpc-491013:13 CRP Comments: [facility] Wcupmpkgxv9874 [facility] [place], [place], [address] C-REACTIVE PROT < 2.90 mg/L (Normal) Range: 0.0-3.0 Comments: C-Reactive Protein (CRP) provides useful information for thediagnosis, therapy and monitoring of inflammatory processesand associated diseases. For the evaluation of Relative Riskfor Cardiovascular Dise ase, a High Sensitivity CRP (HSCRP)should be ordered. 23-Rww-723059:13 Erythrocyte Sed Rate Comments: [facility] [address] [place], [place], [address] SED RATE 13 mm/h (Normal) Range: 0-30 31-Ozv-475623:13 Lipid Profile Comments: [facility] [address] [place], [place], [address](748) VLDL 32 mg/dL (Normal) Range: 5-40 LDL [...] 200-240 mg/dL Borderline >240 mg/dL High Risk 38-Djj-474612:13 Rheumatoid Factor Comments: [facility] [address]ftwapf[address] [place], [address] RHEUMATOID FAC < 10.0 {IU/mL} (Normal) 18-Htc-137902:13 Thyroid Stim Hormone (TSH) Comments: [facility] Vq[address]wjcmjd[address] [place], [address] TSH 4.62 {uIU/mL} (Abnormal) Range: 0.358-3.74 :54 Lipid Profile Comments: ORDERED: CBCD, CMP, LDH, URIC, XTRADR.FAST ORDERED: LIPID, CMP, VITD, CBCDWFostoria City Hospital [address]ijctnlv[address] [place], [address] VLDL 20 mg/dL (Normal) Range: [...] High Risk :54 Vitamin D,25 Hydroxy Comments: [facility] [address]okpotfmai[address] [place], [address] Vitamin D 25-OH 43.8 ng/mL (Normal) Comments: Vitamin D 25(OH) Status Range Deficiency <20 ng/mL (50nmol/L) Insuffciency 20 - 30 ng/mL (50 - 75 nmol/L) Sufficiency 30 - 100 ng/mL (75 - 250 nmol/L) Toxicity >100 ng/mL (>250 nmol/L) :53 CBC W/Diff, Automated Comments: [facility] Hzpvgrntzd75[address] [place], [place], [address] Absolute Lymph 1.63 {X10_3/ul} (Normal) Range: 0.83-4.51 [...] Range: 4.4-11.0 :53 Comprehensive Metabolic Profil Comments: [facility] Qssruagpgl[address] [place], [place], [address] GAP 7 (Normal) Range: 5-15 CO2 32.0 [...] 70-110 :53 LDH 182 U/L (Normal) Comments: [facility] [address] [place], [address] Range: 84-246 :53 Uric Acid Comments: [facility] F[address]kapnkgin[address] [place], [address] URIC 4.4 mg/dL (Normal) Range: 2.6-6.0 65-Icw-307000:49 CBC W/Diff, Auto - EPLAB Comments: At [facility] Outpatient [facility] [place] Medical Oncologypatients receive CBC w/auto Differential ONLY. Physiciantyell place an order for a manual differential or Pathologistreview at his discretion. [facility] OUTPATIENT [facility]. [address] [place] [address] LICENSED FUNERAL DIRECTOR: JOSE KOHLI DO PH:[phone] Health Akron Campus [address] [place], [address] Absolute Lymph 1.40 {X10_3/uL} (Normal) [...] WBC 4.0 K/mm3 (Abnormal) Range: 4.4-11.0 :43 CBC W/Diff, Automated Comments: [facility] K[address]xfgba[address] [place], [address] Absolute Lymph 1.46 {X10_3/ul} (Normal) [...] Serial specimen #1, #2, #3, or #4: [facility] Qywmymlssb2104 [place], [address] C-REACTIVE PROT < 2.90 mg/L (Normal) Range: 0.0-3.0 Comments: C-Reactive Protein (CRP) provides useful information for thediagnosis, therapy and monitoring of inflammatory processesand associated diseases. For the evaluation of Relative Riskfor Cardiovascular Dise ase, a High Sensitivity CRP (HSCRP)should be ordered. :43 CRP Comments: 'TROP' Serial specimen #1, #2, #3, or #4: [facility] Aewznuqimu4[address] [facility] [place], [place], [address] C-REACTIVE PROT < 2.90 mg/L (Normal) Range: 0.0-3.0 Comments: C-Reactive Protein (CRP) provides useful information for thediagnosis, therapy and monitoring of inflammatory processesand associated diseases. For the evaluation of Relative Riskfor Cardiovascular Dise ase, a High Sensitivity CRP (HSCRP)should be ordered. 68-Err-133555:43 Erythrocyte Sed Rate Comments: [facility] [address]ks[address]xgf[address] [place], [address] SED RATE 9 mm/h (Normal) Range: 0-30 96-Xnh-873383:43 ASSAY, TROPONIN, QUANTITATIVE Comments: stat; 'TROP' Serial specimen #1, #2, #3, or #4: [facility] [address]zwdabfil[address] [place], [address] (aka Troponin I) (17745) TROPONIN-I < 0.02 ng/mL (Normal) Comments: TROPONIN-I EXPECTED VALUES <0.05 NEGATIVE 0.06 - 0.59 AT RISK OF VA > OR = 0.60 SUGGEST VA 98-Vbr-730112:15 Basic Metabolic Profile (BMP) Comments: PLEASE REDRAW PREVIOUS SPECIMENS MISLABELED'TROP' Serial specimen #1, #2, #3, or #4: 1'CKMB' Serial Specimen #1, #2 or #3? 1[facility] [address]gpxrn[address] [place], [address] GAP 2 (Abnormal) Range: 5-15 [...] 7-18 GLU 103 mg/dL (Normal) Range: 70-110 :15 CBC W/Diff, Automated Comments: [facility] Rrkgsaofxp[address] [place], [place], [address] Absolute Lymph 1.99 {X10_3/ul} (Normal) Range: 0.83-4.51 [...] 4.2-5.4 WBC 5.8 K/mm3 (Normal) Range: 4.4-11.0 :15 CK-MB Quantitative and Index Comments: PLEASE REDRAW PREVIOUS SPECIMENS MISLABELED'TROP' Serial specimen #1, #2, #3, or #4: 1'CKMB' Serial Specimen #1, #2 or #3? [address] [place] [address] [address] [place], [place], [address] CKRI 0.7 % (Normal) Range: 0.0-1.4 Comments: RELATIVE INDEX >1.5% IS PRESUMPTIVELY POSITIVE CPKMB 0.6 ng/mL (Normal) Range: 0.0-5.0 Comments: CK-MB and RI Interpretation MB Relative Index Non-AMI <or= 5 NA Indeterminate > 5 <or= 4 AMI > 5 > 4 CPK TOTAL 82 U/L (Normal) Range: 26-192 83-Bnf-449669:15 Partial Thromboplast Time Comments: [place] [address] [place], [address] PTT 48.2 s (Abnormal) Range: 24.1-36.2 97-Lpb-782772:15 Prothrombin Time w/INR Comments: [address] [place], [address] INR 2.3 (Normal) PROTIME 25.3 s (Abnormal) Range: 11.7-14.9 64-Bgo-408402:15 Troponin-I Comments: PLEASE REDRAW PREVIOUS SPECIMENS MISLABELED'TROP' Serial specimen #1, #2, #3, or #4: 1'CKMB' Serial Specimen #1, #2 or #3? [address] [place] [address] [address] [place], [place], [address] TROPONIN-I < 0.02 ng/mL (Normal) Comments: TROPONIN-I EXPECTED VALUES <0.05 NEGATIVE 0.06 - 0.59 AT RISK OF VA > OR = 0.60 SUGGEST VA 27-Chd-285149:25 Basic Metabolic Profile (BMP) Comments: Serial Specimen #1, #2 or #3? 1'TROP' Serial specimen #1, #2, #3, or #4: [address] [place] [address] [address] [place], [place], [address] GAP 10 (Normal) Range: 5-15 CO2 26.0 [...] 7-18 GLU 104 mg/dL (Normal) Range: 70-110 63-Hjh-080480:25 BNP,B-Type NATRIURETIC PEPTIDE Comments: [facility] [address] [facility] [address] [place], [place], [address] B-TYPE STEFAN PEP 94.1 pg/mL (Normal) Range: 0-100 42-Vty-580405:25 CBC W/Diff, Automated Comments: [facility] Fbdehrpuvp8300 [facility] [place], [place], [address] Absolute Lymph 2.03 {X10_3/ul} (Normal) Range: 0.83-4.51 [...] 4.2-5.4 WBC 6.0 K/mm3 (Normal) Range: 4.4-11.0 19-Gwa-076601:25 CK-MB Quantitative and Index Comments: Serial Specimen #1, #2 or #3? 1'TROP' Serial specimen #1, #2, #3, or #4: [address] [place] [address] [place], [address] CKRI Test not performed % (Normal) Range: 0.0-1.4 CPKMB < 0.5 ng/mL (Normal) Range: 0.0-5.0 Comments: CK-MB and RI Interpretation MB Relative Index Non-AMI <or= 5 NA Indeterminate > 5 <or= 4 AMI > 5 > 4 CPK TOTAL 69 U/L (Normal) Range: 26-192 37-Wvq-280855:25 Prothrombin Time w/INR Comments: [facility] [address] [place], [address] INR 1.0 (Normal) PROTIME 13.4 s (Normal) Range: 11.7-14.9 02-Rdd-441832:25 Troponin-I Comments: Serial Specimen #1, #2 or #3? 1'TROP' Serial specimen #1, #2, #3, or #4: [address] [place] [address] [place], [address] TROPONIN-I < 0.02 ng/mL (Normal) Comments: TROPONIN-I EXPECTED VALUES <0.05 NEGATIVE 0.06 - 0.59 AT RISK OF VA > OR = 0.60 SUGGEST VA 85-Xhw-999674:50 Urinalysis, Office (93617) UA - LEUKOCYTE ESTERASE Small (Normal) UA - NITRITE Negative (Normal) URINE UROBILINGN DIPAK TIMED Normal mg/dL (Normal) UA - PROTEIN Negative mg/dL (Normal) UA - PH 7.0 (Normal) UA - BLOOD Non Hemolyzed Trace (Normal) UA - SPECIFIC GRAVITY 1.015 (Normal) UA - KETONES Negative mg/dL (Normal) UA - BILIRUBIN Negative (Normal) UA - GLUCOSE Negative (Normal) 76-Sai-906463:16 URINE ELLE CULTURE-IDENTIFICATN Comments: PATIENT NOT FASTINGPERFORMED BY: [facility] Inizfk4194 [facility] [id number] Information: [id number] (23917) Result 1 MUG (Normal) Comments: Mixed urogenital flora1,000 Colonies/mL Urine Culture,Comprehensive Final report (Normal) 53-Hwq-87803:58 CBC W/Diff, Automated Comments: [facility] [address]igxjb[address] [place], [address] ; non-emergent till apt Absolute Lymph 1.57 [...] 4.2-5.4 WBC 5.6 K/mm3 (Normal) Range: 4.4-11.0 35-Zlo-08973:58 Comprehensive Metabolic Profil Comments: [facility] [address] [place], [address] GAP 8 (Normal) Range: 5-15 CO2 30.0 [...] (Normal) Range: 70-110 :58 Hemoglobin A1c Comments: [facility] [address]zswyjw[address] [place], [place], [address] HGB A1C 5.9 % (Normal) Range: 4.2-6.3 :58 Lipid Profile Comments: [facility] [address] [place], [place], [address] VLDL 14 mg/dL (Normal) Range: 5-40 LDL [...] Urinalysis, Complete Comments: How was Urine Obtained? [facility] [address]fuvmodhs[address] [place], [place], [address] MUCUS, URINE 0 SEEN {/hpf} (Normal) BACTERIA [...] CLARITY Sl. Cloudy (Normal) COLOR Yellow (Normal) 39-Ukg-96630:26 CBC W/Diff, Auto - EPLAB Comments: At [facility] Medical Oncologypatients receive CBC w/auto Differential ONLY. Physicianwill place an order for a manual differential or Pathologistreview at his discretion. [facility] OUTPATIENT [facility]. [address] [place] [address] LICENSED FUNERAL DIRECTOR: JOSE KOHLI DO PH:[phone] City Hospital [address]otbw[address] [place], [address] ; ordered by Dr. Evgeny [...] 4.2-5.4 WBC 7.0 K/mm3 (Normal) Range: 4.4-11.0 8-Vmr-396180:30 Basic Metabolic Profile (BMP) Comments: [facility] [address]aryzkbl[address] [place], [place], [address] GAP 8 (Normal) Range: 5-15 CO2 27.0 [...] 7-18 GLU 84 mg/dL (Normal) Range: 70-110 7-Tio-062488:30 CBC-Complete Blood Cnt No Diff Comments: [facility] [address]yt[address] [place], [place], [address] MPV 11.8 fL (Normal) Range: 6.2-12.0 PLT [...] 4.2-5.4 WBC 6.7 K/mm3 (Normal) Range: 4.4-11.0 88-Jzr-[id number]:37 CBC W/Diff, Auto - EPLAB Comments: At [facility] Medical Oncologypatients receive CBC w/auto Differential ONLY. Physicianwill place an order for a manual differential or Pathologistreview at his discretion. [facility] [place]. [address] [place] [address] LICENSED FUNERAL DIRECTOR: JOSE KOHLI DO PH:[phone] [id number] [place], [address] Absolute Lymph 1.77 {X10_3/uL} (Normal) [...] 4.2-5.4 WBC 4.3 K/mm3 (Abnormal) Range: 4.4-11.0 [id number]-[id number] Comprehensive Metabolic Profil Comments: Serial Specimen #1, #2 or #3? 1Is Patient Taking Vitamins or Folic Acid Supplements? [facility] [id number] [place], [address] GAP 7 (Normal) Range: 5-15 CO2 [...] 7-18 GLU 84 mg/dL (Normal) Range: 70-110 [id number]-Csg-[id number] Ferritin Comments: Serial Specimen #1, #2 or #3? 1Is Patient Taking Vitamins or Folic Acid Supplements? [facility] [id number] [place], [place], [id number] FERRITIN 80 ng/mL (Normal) Range: 8-252 83-Kot-095736:37 Folates, (Folic Acid) Comments: Serial Specimen #1, #2 or #3? 1Is Patient Taking Vitamins or Folic Acid Supplements? [facility] [id number] [place], [address] FOLATES 63.40 ng/mL (Abnormal) Range: 3.1-17.5 31-Ihl-[id number]:37 Iron Comments: Serial Specimen #1, #2 or #3? 1Is Patient Taking Vitamins or Folic Acid Supplements? [facility] [id number] [place], [id number] IRON 71 ug/dL (Normal) Range: 50-170 34-Xew-000450:37 Iron Binding Capacity,Total Comments: Serial Specimen #1, #2 or #3? 1Is Patient Taking Vitamins or Folic Acid Supplements? [facility] [address] [place], [id number] TIBC 335 ug/dL (Normal) Range: 250-450 83-Uum-793658:37 LDH 162 U/L (Normal) Comments: Serial Specimen #1, #2 or #3? 1Is Patient Taking Vitamins or Folic Acid Supplements? [facility] [address] [place], [phone] Range: 84-246 45-Ged-294939:37 Uric Acid Comments: Serial Specimen #1, #2 or #3? 1Is Patient Taking Vitamins or Folic Acid Supplements? [facility] [address] [place], [id number] URIC 4.5 mg/dL (Normal) Range: 2.6-6.0 95-Znr-069508:37 Vitamin B12 1077 pg/mL (Abnormal) Comments: [facility] [address] [place], [id number] Range: 211-911 86-Sfe-414420:36 CBC W/Diff, Auto - EPLAB Comments: At [facility] Outpatient [facility] Medical Oncologypatients receive CBC w/auto Differential ONLY. Physicianwill place an order for a manual differential or Pathologistreview at his discretion. [facility] OUTPATIENT [facility]. [address] [place] [address] LICENSED FUNERAL DIRECTOR: JOSE KOHLI DO PH:[phone] Health [facility] [address] [place], [id number] Absolute Lymph 1.97 {X10_3/uL} (Normal) Range: 0.83-4.51 [...] (Normal) Range: 4.4-11.0 :48 Vitamin D Hydroxy (84183) Comments: PATIENT WAS FASTINGPERFORMED BY: Ciespace70 [facility] [id number] Vitamin D, 25-Hydroxy 32.8 ng/mL (Normal) Range: 30.0-100.0 Comments: Vitamin D deficiency has been defined by the [place] of[place]icine and an Endocrine Society practice guideline as alevel of serum 25-OH vitamin D less than 20 ng/mL (1,2).The Endocrine Society went on to further define vitamin Dinsufficiency as a level between 21 and 29 ng/mL (2).1. IOM ([place] of Medicine). 2010. Dietary reference intakes for calcium and D. [place]: The National Academies Press.2. Jose Carlos MF, Flip [place], David ROME, et al. Evaluation, treatment, and prevention of vitamin D deficiency: an Endocrine Society clinical practice guideline. JCEM. 2010; 96(7):1911-30. :48 CBC with auto diff Comments: PATIENT WAS FASTINGPERFORMED BY: [facility]PowerAt[facility] [id number] Information: [id number] (22374) Immature Grans (Abs) 0.0 {x10E3/uL} (Normal) Range: [...] PANEL, COMPREHENSIVE Comments: PATIENT WAS FASTINGPERFORMED BY: CHAN [facility] Bzogff3375 [facility] [id number] (52965) ALT (SGPT) 10 [iU]/L (Normal) Range: 0-32 [...] mg/dL (Normal) Range: 65-99 :48 LIPID PANEL (12707) Comments: PATIENT WAS FASTINGPERFORMED BY: [facility]CoCommunity Medical CenterMkbpuv8056 [facility] [id number] LDL/HDL Ratio 1.2 {ratio_units} (Normal) Range: 0.0-3.2 [...] CREATININE RATIO Comments: PATIENT WAS FASTINGPERFORMED BY: [facility]6370 [facility] [id number] (46013) AND (32908) Microalb/Creat Ratio 64.2 {mg/g_creat} (Abnormal) Range: 0.0-30.0 Microalbumin, Urine 46.3 ug/mL (Abnormal) Range: 0.0-17.0 Creatinine, Urine 72.1 mg/dL (Normal) Range: 15.0-278.0 :48 Hemoglobin Glyclated (HGB A1C) Comments: PATIENT WAS FASTINGPERFORMED BY: LabStra[facility] Surgery6370 [facility] [id number] (86757) Hemoglobin A1c 5.7 % (Abnormal) Range: 4.8-5.6 Comments: . Pre-diabetes: 5.7 - 6.4 Diabetes: >6.4 Glycemic control for adults with diabetes: <7.0 88-Bif-561348:28 CBC W/Diff, Auto - EPLAB Comments: At [facility] Outpatient [facility] Medical Oncologypatients receive CBC w/auto Differential ONLY. Physicianwill place an order for a manual differential or Pathologistreview at his discretion. [facility] OUTPATIENT [facility]. [address] [place] [address] LICENSED FUNERAL DIRECTOR: JOSE KOHLI DO PH:[phone] performed at:[facility] [address] [place], [place] [phone] ; handled by evgeny Absolute Lymph 1.89 [...] W/Diff, Auto - EPLAB Only Comments: At [facility] Outpatient [facility] Medical Oncologypatients receive CBC w/auto Differential ONLY. Physicianwill place an order for a manual differential or Pathologistreview at his discretion. [facility]. [address] [place] [address] LICENSED FUNERAL DIRECTOR: JOSE KOHLI DO PH:[phone] performed at:[facility] [address] [place], [place] [id number] Absolute Neut 2.6 {X10_3/uL} (Normal) Range: 2.0-7.7 [...] Serum Creatinine AND GFR Comments: Test performed at:[facility] [address] [place], [place] [address] EST GFR - AA 62 mL/min (Normal) EST GFR 51 mL/min (Abnormal) CREAT,SERUM 1.12 mg/dL (Normal) Range: 0.55-1.20 Comments: Please note revised CREATININE reference range eoxciahzr36/22/2015. 8-Lnm-406352:38 CBC W/Diff, Auto - EPLAB Only Comments: At [facility] Outpatient [facility] Medical Oncologypatients receive CBC w/auto Differential ONLY. Physicianwill place an order for a manual differential or Pathologistreview at his discretion. [facility] OUTPATIENT [facility]. [address] [place] [address] LICENSED FUNERAL DIRECTOR: JOSE KOHLI DO PH:[phone] performed at:[facility] [address] [place], [place] [address] Absolute Neut 3.0 {X10_3/uL} (Normal) Range: 2.0-7.7 [...] 4.2-5.4 WBC 5.8 K/mm3 (Normal) Range: 4.4-11.0 56-Pqm-868089:12 FLURESCNT ANTIB SCRN EA Comments: PATIENT WAS FASTINGPERFORMED BY: Ciespace70 [facility] [id number] Information: [id number] (57048) celiac profile Immunoglobulin A, Qn, Serum 119 [...] - 30 Moderate to Strong Positive >30 26-Kis-409671:12 IMMUNOASSAY, ANALYTE Comments: PATIENT WAS FASTINGPERFORMED BY: Electronifielin6370 [facility] [id number] (NON-INFECT) (94236) celiac profile Mitochondrial (M2) Antibody <20.0 {Units} (Normal) Range: 0.0-20.0 Comments: Negative 0.0 - 20.0 Equivocal 20.1 - 24.9 Positive >24.9 . Mitochondrial (M2) Antibodies are found in 90-96% of patients with primary biliary cirrhosis. 61-Vgi-912086:12 IGA/IGD/IGG/IGM-EACH (79902) Comments: PATIENT WAS FASTINGPERFORMED BY: Electronifielin6370 [facility] [id number] Immunoglobulin E, Total 2 {IU/mL} (Normal) Range: 0-100 Immunoglobulin M, Qn, Serum 72 mg/dL (Normal) Range: 40-230 Immunoglobulin G, Qn, Serum 884 mg/dL (Normal) Range: 700-1600 28-Adq-357977:12 METABOLIC PANEL, COMPREHENSIVE Comments: PATIENT WAS FASTINGPERFORMED BY: [employer] [id number] (58681) ALT (SGPT) 12 [iU]/L (Normal) Range: 0-32 [...] Glucose, Serum 94 mg/dL (Normal) Range: 65-99 63-Bmq-733578:12 LIPID PANEL (02729) Comments: PATIENT WAS FASTINGPERFORMED BY: [employer]6370 [facility] [id number] LDL/HDL Ratio 1.2 {ratio_units} (Normal) Range: 0.0-3.2 [...] Cholesterol, Total 168 mg/dL (Normal) Range: 100-199 4-Dzs-289580:25 HgA1C , Office (23069) HgA1C , Office 5.8 % (Normal) Range: 4.6 - 7.1 54-Whe-352138:0 COLON BIOPSY (CHOOSE See Note (Normal) Comments: Test performed at:[facility] [address] [place] [address] 4 SITE) Comments: Patient: LUPE LOPEZ : 1945 (69/F) Acct Num: [id number] Phys: Samm Boo Unit Num: [id number] Loc: LABSPEC Specimen: [id number] Received: 09/13/14 - 1610 Spec Type: C OLMARK BX TISSUES TISSUES: GROSS DESCRIPTION Received is one container labeled with the patient name and designated biopsy polyp at mid transverse. The specimen consists of one irreg ular fragment of light gonzalez soft tissue that measures 0.3 x 0.2 x 0.1 cm. The specimen is totallysubmitted in one cassette. / AM: 09/17/14 TC:5 CPT: 23873 HEADER OPERATION: Colonoscopy with biopsy PRE-OP DIAGNOSIS: Anemia TISSUE SUBMITTED: Biopsy polyp - mid transverse - rule out adenoma MICROSCOPIC DIAGNOSIS Mid transverse colon polyp, biopsy: Tubular adenoma. AM: 09/17 Signed Jose Seun 09/17/14 <signature on file> :58 CBC W/Diff, Auto - EPLAB Only Comments: At [facility] Outpatient [facility] Medical Oncologypatients receive CBC w/auto Differential ONLY. Physicianree place an order for a manual differential or Pathologistreview at his discretion. [facility] OUTPATIENT [facility]. [address] [place] [address] LICENSED FUNERAL DIRECTOR: JOSE KOHLI DO PH:[phone] performed at:[facility] [address] [place], [place] [address] Absolute Neut 1.6 {X10_3/uL} Range: 2.0-7.7 (Abnormal) [...] BIOPSY See Note (Normal) Comments: Test performed at:[facility] [address] [place], [place] [address] Comments: Patient: LUPE LOPEZ : 1945 (69/F) Acct Num: [id number] Phys: Evgeny Farmer Unit Num: [id number] Loc: MARY Specimen: [id number] Received: 07/31/14 - 1215 Spec Type: BMB TISSUES TISSUES: ADDENDUM Addendum Number 1 CYTOGENETICS REPORT FROM [facility] INTERPRETATION AND COMMENTS: Karyotype: 46,XX[20] A normal female karyotype w as observed in twenty metaphases analyzed. Please see complete report in e-chart or EMR for further details Addendum Signed Jose [facility] 5 <signature on file> BONE [...] t op tubes which are sent to [facility] for flow cytometry and cytogenetics. / AM: 07/31/14 TC:5 CPT: 94463, 38018, 39750 x2, 13105 x3, 69297 BONE MARROW STUDY CBC DATE: 07/31/14 WBC [...] Highlights myeloid elements and megakaryocytes. COMMENT IHC ([id number]) supports the above diagnosis. Flow cytometry study from [facility] Path shows no phenotypic evidence of excess [...] IMMUNOHISTOCHEMISTRY See Note (Normal) Comments: Test performed at:[facility] [address] [place] [address] 00 Comments: Patient: LUPE LOPEZ : 1945 (69/F) Acct Num: [id number] Phys: Evgeny Farmer Unit Num: [id number] Loc: [facility] Specimen: [id number] Received: 08/01/141157 Spec Type: IMMUN O TISSUES TISSUES: SPECIMEN INFORMATION: Tissue Source: Bone marrow biopsy and clot Clinical Info: Anemia Specimen Number: [id number] A AND B CPT code: 67571, 69966 x19 METHOD OLOGY: Deparaffinized sections of prefer/formalin-fixed [...] (11E3) negative BCL-2 (BCL2/100/D5) negative BCL- 6 (LN22/DK720L/A8) negative Cyclin D 1/BCL-1 (SP4) negative Block B CD3 (LN10/PS1) positive CD5 (4C7/SP10) positive CD10 (56C6) negative CD20 (MJ1/L26) negative CD23 (1B12) negative CD45 (X16/99/ RP2/18) positive CD79a (11E3) negative BCL-2 (BCL2/100/D5) positive BCL-6 (LN22/JC806D/A8) nega tive Cyclin D1/BCL-1 (SP4) negative These tests were developed and their performance characteristics determined by [facility]. They may not have been cleared or approved by the U.S. Food and Drug Administration. The FDA has determined that such clearance or approval is not necessary. INTERPRETATION: A. Bone marrow biopsy: Polytypic lymphoid aggregates. B. Bone marrow clot: Polytypic lymphoid aggregates. Comment: There is no evidence of lymphoma. AM:jeniffer 08/02/14 PHYSICIAN AND INSTITUTION [facility] [address] [place], [place] [address] Signed Jose Kohli 08/06/14 <signature on file> 0-Dun-098142:59 CBC W/Diff, Auto - EPLAB Only Comments: At [facility] Outpatient [facility] Medical Oncologypatients receive CBC w/auto Differential ONLY. Physicianwill place an order for a manual differential or Pathologistreview at his discretion. [facility] OUTPATIENT [facility]. [address] [place] [address] LICENSED FUNERAL DIRECTOR: JOSE KOHLI DO PH:[phone] performed at:[facility] [address] [place] [address] Absolute Neut 2.3 {X10_3/uL} (Normal) [...] W/Diff, Auto - EPLAB Only Comments: At [facility] Outpatient [facility], [facility] [place] [facility] patientsreceive CBC w/auto Differential ONLY. Physician will placean order for a manual differential or Pathologist review athis discretion. [facility] OUTPATIENT [facility]. [address] [place] [address] LICENSED FUNERAL DIRECTOR: JOSE KOHLI DO PH:[phone] performed at:[facility] [address] [place] [address] Absolute Neut 2.0 {X10_3/uL} (Normal) [...] 4.2-5.4 WBC 4.0 K/mm3 (Abnormal) Range: 4.4-11.0 :23 Comprehensive Metabolic Profil Comments: Serial Specimen #1, #2 or #3? 1Test performed at:[facility] [address] [place], [place] [address] GAP 6 (Normal) Range: 5-15 CO2 30.0 [...] Specimen #1, #2 or #3? 1Test performed at:[facility] [address] [place] [address] FERRITIN 255 ng/mL (Abnormal) Range: 8-252 :23 Iron Comments: Serial Specimen #1, #2 or #3? 1Test performed at:[facility] L[address]bv[address] [place] [address] IRON 72 ug/dL (Normal) Range: 50-170 :23 Iron Binding Capacity,Total Comments: Serial Specimen #1, #2 or #3? 1Test performed at:[facility] [address]aw[address] [place] [address] TIBC 320 ug/dL (Normal) Range: 250-450 :23 LDH 176 U/L (Normal) Comments: Serial Specimen #1, #2 or #3? 1Test performed at:[facility] [address] [place], [place] [address] Range: 87-241 :23 Uric Acid Comments: Serial Specimen #1, #2 or #3? 1Test performed at:[facility] [address] [place] [address] URIC 5.2 mg/dL (Normal) Range: 2.6-6.0 :45 Copper, Serum or Plasma Comments: Test performed at:[facility] [address] [place] [address] COPPER 112 ug/dL (Normal) Range: 72-166 Comments: Detection Limit = 5Performed at: [facility] [address] [id number] Director: Scot Nuñez PhD, Phone: [phone] at: [facility] [address] [id number] Director: Saitsh Mayer MD, Phone: [phone] Lead, Blood Adult 16+yrs Comments: Test performed at:[facility] [address] 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 1Is Patient Taking Vitamins or Folic Acid Supplements? NTest performed at:[facility] [address]ob[address]iztve[address]47 [facility] [place] [address] GAP 6 (Normal) Range: 5-15 CO2 30.0 [...] 7-18 GLU 86 mg/dL (Normal) Range: 70-110 5-Lnf-876499:43 Direct Antiglobulin Diann YUVAL Comments: Test performed at:[facility] [address] [place] [address] DIRECT DIANN= NEG w/POLYSPECIFIC (Normal) 3-Bnr-785227:43 Erythropoietin Comments: Is Patient Fasting? NTest performed at:[facility] [address] [place] [address] ERYTHROP 162086 24.8 m[iU]/mL (Abnormal) Range: 2.6-18.5 6-Lcq-035606:43 Ferritin Comments: Serial Specimen #1, #2 or #3? 1Is Patient Taking Vitamins or Folic Acid Supplements? NTest performed at:[facility] [address] [place] [address] FERRITIN 11 ng/mL (Normal) Range: 8-252 2-Ubz-952162:43 Folates, (Folic Acid) Comments: Serial Specimen #1, #2 or #3? 1Is Patient Taking Vitamins or Folic Acid Supplements? NTest performed at:[facility] [address] [place] [address] FOLATES 48.80 ng/mL (Abnormal) Range: 3.1-17.5 4-Opn-122653:43 Haptoglobin Comments: Is Patient Fasting? NTest performed at:[facility] [address] [place] [address] HAPTOGLOB 1628 224 mg/dL (Abnormal) Range: 34-200 Comments: Performed at: - [facility] [id number] Director: Scot Nuñez PhD, Phone: [phone] 0-Uwv-841197:43 THEE + Protein Elect, Serum Comments: Is Patient Fasting? NTest performed at:[facility] L[address]lsudcw8638 [facility] [place] [address] NOTE: Comment (Normal) Comments: Protein electrophoresis scan will follow via computer,mail, or roll changer delivery. THEE RESULT,S Comment: (Normal) Comments: THEE SHOWS ATYPICAL LAMBDA. A/G RATIO 1.4 (Normal) Range: 0.7-2.0 GLOBULIN, TOTAL 2.8 g/dL (Normal) Range: 2.0-4.5 M-SPIKE (Normal) Comments: Not Observed GAMMA GLOBULIN 0.9 g/dL (Normal) Range: 0.5-1.6 BETA GLOBULIN 0.9 g/dL (Normal) Range: 0.6-1.3 ZLRTP-8-UKPT 0.9 g/dL (Normal) Range: 0.4-1.2 ZJLHJ-8-HPXG 0.3 g/dL (Normal) Range: 0.1-0.4 ALBUMIN 3.9 g/dL (Normal) Range: 3.2-5.6 IMMUNOGL M 1792 69 mg/dL (Normal) Range: 40-230 IMMUNO A 1784 133 mg/dL (Normal) Range: 91-414 IMMUNO G 1776 959 mg/dL (Normal) Range: 700-1600 PROTEIN,TOTAL 6.7 g/dL (Normal) Range: 6.0-8.5 :43 Iron Binding Capacity,Total Comments: Serial Specimen #1, #2 or #3? 1Is Patient Taking Vitamins or Folic Acid Supplements? NTest performed at:[facility] [address] [place] [address] TIBC 407 ug/dL (Normal) Range: 250-450 :43 Murphy Lambda Light Chains Comments: Is Patient Fasting? NTest performed at:[facility] [address] [place] [address] KAPPA/LAMBDA % 1.35 (Normal) Range: 0.26-1.65 FR LAMBDA LT CH 18.72 mg/L (Normal) Range: 5.71-26.30 FR KAPPA LT CHN 25.25 mg/L (Abnormal) Range: 3.30-19.40 :43 LDH 173 U/L (Normal) Comments: Serial Specimen #1, #2 or #3? 1Is Patient Taking Vitamins or Folic Acid Supplements? NTest performed at:[facility] [address] [place] [address] Range: 87-241 0-Mig-426048:43 Retic Panel Comments: Test performed at:[facility] [address] [place] [address] IPF 2.5 % (Normal) Range: [...] Vitamins or Folic Acid Supplements? NTest performed at:[facility] Nrdfedbpvp7079 [facility] [place] [address] TSH 1.87 {uIU/mL} (Normal) Range: 0.358-3.74 3-Qxu-713745:43 Uric Acid Comments: Serial Specimen #1, #2 or #3? 1Is Patient Taking Vitamins or Folic Acid Supplements? NTest performed at:[facility] [address] [place] [address] URIC 5.0 mg/dL (Normal) Range: 2.6-6.0 3-Fyv-413693:43 Vitamin B12 548 pg/mL (Normal) Comments: Test performed at:[facility] [address] [place] [address] Range: 211-911 9-Gvk-810075:42 CBC W/Diff, Auto - EPLAB Only Comments: At [facility] Outpatient [facility], [facility] [place] [facility] patientsreceive CBC w/auto Differential ONLY. Physician will placean order for a manual differential or Pathologist review athis discretion. [facility]. [address] [place] [address] LICENSED FUNERAL DIRECTOR: JOSE KOHLI DO PH:[phone] performed at:[facility] [address] [place], [place] [address] Absolute Neut 2.6 {X10_3/uL} (Normal) Range: 2.0-7.7 [...] PANEL, COMPREHENSIVE Comments: PATIENT WAS FASTINGPERFORMED BY: [employer]70 [facility] [id number] (90505) ALT (SGPT) 5 [iU]/L (Normal) Range: 0-32 [...] mg/dL (Normal) Range: 65-99 :56 LIPID PANEL (85542) Comments: PATIENT WAS FASTINGPERFORMED BY: ZimpleMoneyCommunity Medical CenterSadrzl4819 [facility] [id number] LDL/HDL Ratio 1.3 {ratio_units} (Normal) Range: 0.0-3.2 [...] Cholesterol, Total 176 mg/dL (Normal) Range: 100-199 66-Ltz-27861:56 CBC W/AUTO DIFF WBC Comments: PATIENT WAS FASTINGPERFORMED BY: LabCoCommunity Medical CenterPbddnr0895 [facility] [id number] Information: [id number] (87413) Immature Grans (Abs) 0.0 {x10E3/uL} (Normal) Range: [...] Random Urine Comments: PATIENT WAS FASTINGPERFORMED BY: ZimpleMoneyCommunity Medical CenterNhlqpw4493 [facility] [id number] Please note: SPRCS (Normal) Comments: Protein electrophoresis scan will follow via computer, mail, orcourier delivery. M-Abhinav, % Not Observed % (Normal) Gamma Globulin, U 19.9 % (Normal) Beta Globulin, U 25.8 % (Normal) Gkhhv-4-Iniahnxq, U 12.8 % (Normal) Kwmog-5-Ibfcchan, U 1.3 % (Normal) Albumin, U 40.2 % (Normal) Protein,Total,Urine 13.5 mg/dL (Normal) Range: 0.0-15.0 :44 Protein Electro.,S Comments: PATIENT WAS FASTINGPERFORMED BY: Electronifielin6370 [facility] [id number]; will review on 05/07 appt Please note: SPRCS (Normal) Comments: Protein electrophoresis scan will follow via computer, mail, orcourier delivery. A/G Ratio 1.2 (Normal) Range: 0.7-2.0 Globulin, Total 3.0 g/dL (Normal) Range: 2.0-4.5 M-Abhinav Not Observed g/dL (Normal) Gamma Globulin 1.0 g/dL (Normal) Range: 0.5-1.6 Beta Globulin 0.8 g/dL (Normal) Range: 0.6-1.3 Ycllr-7-Ibzhdkgf 0.9 g/dL (Normal) Range: 0.4-1.2 Yltlu-5-Ihqfksdh 0.3 g/dL (Normal) Range: 0.1-0.4 Albumin 3.7 g/dL (Normal) Range: 3.2-5.6 Protein, Total, Serum 6.7 g/dL (Normal) Range: 6.0-8.5 Written Authorization WAR (Normal) Comments: PATIENT WAS FASTINGPERFORMED BY: [facility] Qxbmqv5368 [facility] [id number] :44 Comments: Written Authorization Received.Authorization received from ENRIKE FIONA [id number] by Jyothi oBland 7-Zkx-192790:44 LIPID PANEL (75364) Comments: PATIENT WAS FASTINGPERFORMED BY: [facility] Ycoups3511 [facility] [id number] LDL/HDL Ratio 1.9 {ratio_units} (Normal) Range: 0.0-3.2 [...] Cholesterol, Total 211 mg/dL (Abnormal) Range: 100-199 9-Jbf-563043:37 FECAL OCCULT- Tubes sent home (29883) FECAL OCCULT HGB ASSAY, QUAL, 1-3 SIMULTANEOU positive (Normal) 6-Uun-819225:[address] [facility] [address] [facility] Comments: PATIENT WAS FASTINGPERFORMED BY: [facility] Umrgpy0645 [facility] [id number] (44860) Reticulocyte Count 1.6 % (Normal) Range: 0.6-2.6 1-Qfk-212380:44 LDH (LD) (LACTATE DEHYDROGENASE) Comments: PATIENT WAS FASTINGPERFORMED BY: [facility] Qitxpu1376 [facility] [id number] (59017) LDH 207 [iU]/L (Normal) Range: 119-226 5-Adn-423050:44 IRON BINDING CAPACITY (TIBC) Comments: PATIENT WAS FASTINGPERFORMED BY: [facility] Ahvqtk1376 [facility] [id number] (57872) Iron Saturation 16 % (Normal) Range: 15-55 Iron, Serum 50 ug/dL (Normal) Range: 35-155 UIBC 270 ug/dL (Normal) Range: 150-375 Iron Bind.Cap.(TIBC) 320 ug/dL (Normal) Range: 250-450 :44 FERRITIN (10778) Comments: PATIENT WAS FASTINGPERFORMED BY: [facility] BiologicsCoCommunity Medical CenterGyjmka5698 [facility] [id number] Ferritin, Serum 84 ng/mL (Normal) Range: 15-150 :44 CBC W/AUTO DIFF WBC (58700) Comments: PATIENT WAS FASTINGPERFORMED BY: [employer]icsCo Zpvwfm2002 [facility] [id number] Immature Grans (Abs) 0.0 {x10E3/uL} (Normal) Range: [...] CREATININE RATIO Comments: PATIENT WAS FASTINGPERFORMED BY: [facility] BiologicsStraith [facility] Surgery6370 [facility] [id number] (27295) AND (19102) Microalb/Creat Ratio 21.9 {mg/g_creat} (Normal) Range: 0.0-30.0 Microalbumin, Urine 22.0 ug/mL (Abnormal) Range: 0.0-17.0 Creatinine, Urine 100.3 mg/dL (Normal) Range: 15.0-278.0 :44 Hemoglobin Glyclated (HGB A1C) Comments: PATIENT WAS FASTINGPERFORMED BY: [facility] BiologicsStra[facility] Surgery6370 [facility] [id number] (75538) Hemoglobin A1c 5.5 % (Normal) Range: 4.8-5.6 Comments: . Increased risk for diabetes: 5.7 - 6.4 Diabetes: >6.4 Glycemic control for adults with diabetes: <7.0 16-Zfc-001770:39 Microscopic Examination Comments: PATIENT NOT FASTINGPERFORMED BY: [facility] BiologicsStra[facility] Surgery6370 [facility] [id number] Bacteria Few (Normal) Mucus Threads Present (Normal) Epithelial Cells (non renal) 0-10 {/hpf} (Normal) Range: 0 - 10 RBC 0-2 {/hpf} (Normal) Range: 0 - 2 WBC 6-10 {/hpf} (Abnormal) Range: 0 - 5 39-Hcv-662811:37 D-Dimer (76063) Comments: PATIENT NOT FASTINGPERFORMED BY: [facility] [id number] Information: [id number] D-Dimer 0.84 {mg/L_FEU} (Abnormal) Range: 0.00-0.49 Comments: In conjunction with a non-high clinical probability assessment, anormal (<0.50 mg/L FEU) result excludes deep vein thrombosis (DVT)and pulmonary embolism (PE) with high sensitivity. :39 Vitamin D Hydroxy (93183) Comments: PATIENT NOT FASTINGPERFORMED BY: CB [facility] Amjyrz7[address]Dublin [place] [id number] Vitamin D, 25-Hydroxy 38.7 ng/mL (Normal) Range: 30.0-100.0 Comments: Vitamin D deficiency has been defined by the [place] of[place]icine and an Endocrine Society practice guideline as alevel of serum 25-OH vitamin D less than 20 ng/mL (1,2).The Endocrine Society went on to further define vitamin Dinsufficiency as a level between 21 and 29 ng/mL (2).1. IOM ([place] of Medicine). 2010. Dietary reference intakes for calcium and D. [place]: The National Academies Press.2. Jose Carlos MF, Flip SIFUENTES, David ROME, et al. Evaluation, treatment, and prevention of vitamin D deficiency: an Endocrine Society clinical practice guideline. JCEM. 2010; 96(7):1911-30. :39 Valproic Acid (15055) Comments: PATIENT NOT FASTINGPERFORMED BY: CB [facility] Wxshje[address]Dublin [place] [id number] Valproic Acid (Depakote),S 105 ug/mL (Abnormal) Range: 50-100 Comments: Detection Limit = 4 <4 indicates None Detected . Toxicity may occur at levels of 100-500. Measurements of free unbound valproic acid may improve the assess- ment of clinical response.Patient drug level exceeds published reference range. Evaluateclinically for signs of potential toxicity. :39 VITAMIN B-12 (CYANOCOBALAMIN) Comments: PATIENT NOT FASTINGPERFORMED BY: CB [facility] Mgkcjw47[address]Dublin [place] [id number] ([id number]) Vitamin B12 1017 pg/mL (Abnormal) Range: 211-946 :39 FERRITIN (26201) Comments: PATIENT NOT FASTINGPERFORMED BY: CB [facility] Etmkzc5[address]Dublin [place] [id number] Ferritin, Serum 77 ng/mL (Normal) Range: 15-150 48-Hpu-777766:39 IRON (14466) Comments: PATIENT NOT FASTINGPERFORMED BY: [facility] Ykatxc73[address] [facility] [id number] Iron, Serum 32 ug/dL (Abnormal) Range: 35-155 32-Fas-566948:39 CBC W/AUTO DIFF WBC Comments: PATIENT NOT FASTINGPERFORMED BY: [facility]od[facility] [id number] Information: [id number],2ND ORDER NO DRAW F EE (12835) Immature Grans (Abs) 0.0 {x10E3/uL} (Normal) Range: [...] 3.77-5.28 WBC 6.2 {x10E3/uL} (Normal) Range: 3.4-10.8 00-Slc-018185:39 TSH (46769) Comments: PATIENT NOT FASTINGPERFORMED BY: [facility] [facility] [id number] TSH 1.800 {uIU/mL} (Normal) Range: 0.450-4.500 91-Ckq-935353:39 URINALYSIS, W/ MICRO (75998) Comments: PATIENT NOT FASTINGPERFORMED BY: [facility] [id number] Microscopic Examination See below: (Normal) Comments: Microscopic was indicated and was performed. Nitrite, Urine Negative (Normal) Urobilinogen,Semi-Qn 0.2 mg/dL (Normal) Range: 0.0-1.9 Bilirubin Negative (Normal) Occult Blood Negative (Normal) Ketones Negative (Normal) Glucose Negative (Normal) Protein Negative (Normal) WBC Esterase 1+ (Abnormal) Appearance Clear (Normal) Urine-Color Yellow (Normal) pH 6.5 (Normal) Range: 5.0-7.5 Specific Angela 1.013 (Normal) Range: 1.005-1.030 07-Xui-522854:39 METABOLIC PANEL, COMPREHENSIVE Comments: PATIENT NOT FASTINGPERFORMED BY: [facility] [facility] [id number] ([id number]) ALT (SGPT) 5 [iU]/L (Normal) Range: 0-32 [...] Syncope Planned Observations CBC with auto diff (78029)Indication: Elevated hemoglobin A1c On: 77-Xev-011590:16 Request METABOLIC PANEL, COMPREHENSIVE (25289)Indication: Elevated hemoglobin A1c On: 19-Fzt-874220:16 Request HGB A1C (85503)Indication: Elevated hemoglobin A1c On: 35-Jhi-643521:16 Request LIPID PANEL (37039)Indication: Other hyperlipidemia On: 13-Ytl-294970:16 Request TSH (64571)Indication: Abnormal TSH On: 04-Pzy-142264:09 Request TSH (THYROID STIMULATING HORMONE) (40305)Indication: Abnormal TSH On: 30-Zli-894881:15 Request LIPID PANEL (90549)Indication: Other hyperlipidemia On: 60-Tut-846859:14 Request CBC with auto diff (36153)Indication: Elevated hemoglobin A1c On: 15-Itq-361790:14 Request METABOLIC PANEL, COMPREHENSIVE (70642)Indication: Elevated hemoglobin A1c On: 24-Lfo-922151:14 Request HGB A1C (84236)Indication: Elevated hemoglobin A1c On: 25-Biv-198315:14 Request CBC W/AUTO DIFF WBC (05318)Indication: Anemia On: 24-Fsa-113991:30 Request CBC with auto diff (23318)Indication: Anemia On: 50-Shg-033526:02 Request METABOLIC PANEL, COMPREHENSIVE (58400)Indication: Impaired Fasting Glucose (Renamed from Elevated fasting blood sugar) On: 99-Stt-687188:02 Request TSH (35472)Indication: Abnormal TSH On: 32-Icj-372800:01 Request SED RATE ERYTHROCYTE (92575)Indication: Anemia On: :58 Request C-REACTIVE PROTEIN (85407)Indication: Anemia On: :58 Request FOLIC ACID SERUM (34894)Indication: Anemia On: :58 Request VITAMIN B-12 (CYANOCOBALAMIN) (72288)Indication: Anemia On: :58 Request IGA/IGD/IGG/IGM-EACH (11641)Indication: Anemia On: 40-Yxv-234340:33 Request CBC W/AUTO DIFF WBC (17171)Indication: Impaired Fasting Glucose (Renamed from Elevated fasting blood sugar) On: 89-Qts-653687:31 Request METABOLIC PANEL, COMPREHENSIVE (01684)Indication: Impaired Fasting Glucose (Renamed from Elevated fasting blood sugar) On: 42-Ncx-322976:31 Request Vitamin D Hydroxy (64023)Indication: Other osteoporosis On: 48-Atj-729545:22 Request CBC with auto diff (99849)Indication: Anemia On: 92-Ger-432543:22 Request TSH (THYROID STIMULATING HORMONE) (90231)Indication: Abnormal TSH On: 39-Zmk-172501:21 Request HGB A1C (94250)Indication: Impaired Fasting Glucose (Renamed from Elevated fasting blood sugar) On: 20-Pot-134523:21 Request serum immunofixation (02670)Indication: Anemia On: : Request urine immunofixation (70699)Indication: Anemia On: 86-Gsj-132671:21 Request LIPID PANEL (60188)Indication: Other hyperlipidemia On: 54-Zmv-599524:15 Request METABOLIC PANEL, COMPREHENSIVE (31546)Indication: Hypertension, benign On: 35-Zeh-428156:14 Request LIPID PANEL (92972)Indication: Fibromyalgia (Renamed from Diffuse myofascial pain syndrome) On: 11-Lmh-034589:14 Request TSH (THYROID STIMULATING HORMONE) (23011)Indication: Abnormal TSH On: 3-Cdv-772469:15 Request HGB A1C (58970)Indication: Impaired Fasting Glucose (Renamed from Elevated fasting blood sugar) On: :15 Request CBC with auto diff (02119)Indication: Hypertension, benign On: :15 Request METABOLIC PANEL, COMPREHENSIVE (98300)Indication: Hypertension, benign On: :15 Request LIPID PANEL (09452)Indication: Other hyperlipidemia On: :14 Request ASSAY, TROPONIN, QUANTITATIVE (aka Troponin I) (89302)Indication: Atypical chest pain On: 3-Swy-056710:02 Request TSH (69424)Indication: Abnormal TSH On: 4-Buf-699499:56 Request CBC WITH MANUAL DIFF (67616)Indication: Other specified nutritional anemias On: 5-Uuj-785547:48 Request Comments: 1 month TSH (THYROID STIMULATING HORMONE) (99219)Indication: Hypertension, benign On: 8-Bvt-276527:15 Request Iron (47980)Indication: Anemia On: 6-Efy-908968:59 Request METABOLIC PANEL, COMPREHENSIVE (43209)Indication: Other osteoporosis On: 6-Kdu-621811:01 Request Vitamin D Hydroxy (90672)Indication: Other osteoporosis On: :37 Request LIPID PANEL (63804)Indication: Other hyperlipidemia On: :36 Request HGB A1C (33586)Indication: Impaired Fasting Glucose (Renamed from Elevated fasting blood sugar) On: :35 Request MICROALBUMIN: CREATININE RATIO (03067) AND (43048)Indication: Impaired Fasting Glucose (Renamed from Elevated fasting blood sugar) On: :35 Request Metabolic Panel, Comprehensive (03173)Indication: Gastroenteritis On: 78-Rge-454801:09 Request CBC, Platelets & Auto Diff (97694)Indication: Gastroenteritis On: 16-Msg-114034:09 Request Sed Rate Erythrocyte (02475)Indication: Gastroenteritis On: 29-Kxo-170557:09 Request CBC WITH MANUAL DIFF (86768)Indication: Anemia On: :12 Request Comments: 6 weeks TSH (02635)Indication: Abnormal TSH On: 2-Rqh-330875:11 Request Comments: 6 weeks VITAMIN B-12 (CYANOCOBALAMIN) (38397)Indication: Anemia On: 90-Xzr-81651:39 Request TSH (18936)Indication: Abnormal TSH On: :40 Request CBC W/AUTO DIFF WBC (95923)Indication: Anemia On: :40 Request TSH (48088)Indication: Abnormal TSH On: :25 Request Comments: ADD ON METABOLIC PANEL, COMPREHENSIVE (20355)Indication: Impaired Fasting Glucose (Renamed from Elevated fasting blood sugar) On: 57-Rry-513483:43 Request Anti-TPO Antibody (16789)Indication: Abnormal TSH On: 47-Vnh-547191:42 Request T4, FREE (THYROXINE) (67114)Indication: Abnormal TSH On: :42 Request T3, FREE (TRIDOTHYRONINE) (08539)Indication: Abnormal TSH On: 31-Uwx-711817:42 Request RHEUMATOID FACTOR-QUANT (19134)Indication: Chronic right shoulder pain On: :32 Request SED RATE ERYTHROCYTE (35839)Indication: Chronic right shoulder pain On: :32 Request C-REACTIVE PROTEIN (90031)Indication: Chronic right shoulder pain On: :32 Request CBC W/AUTO DIFF WBC (92887)Indication: Hypertension, benign On: :31 Request METABOLIC PANEL, COMPREHENSIVE (61729)Indication: Hypertension, benign On: :31 Request LIPID PANEL (91231)Indication: Other hyperlipidemia On: :31 Request TSH (77460)Indication: Chest pain at rest On: :31 Request HGB A1C (71987)Indication: Impaired Fasting Glucose (Renamed from Elevated fasting blood sugar) On: 6-Nur-592760:00 Request CBC with auto diff (19621)Indication: Impaired Fasting Glucose (Renamed from Elevated fasting blood sugar) On: 5-Tbq-804237:00 Request METABOLIC PANEL, COMPREHENSIVE (49609)Indication: Impaired Fasting Glucose (Renamed from Elevated fasting blood sugar) On: 8-Wuw-359406:00 Request LIPID PANEL (47994)Indication: Other hyperlipidemia On: 9-Pyk-850035:00 Request VITAMIN B-12 (CYANOCOBALAMIN) (61255)Indication: Other specified nutritional anemias On: 7-Don-013605:59 Request Vitamin D Hydroxy (58386)Indication: Other osteoporosis On: 5-Qew-873191:59 Request CBC (AUTO) (54113)Indication: Other osteoporosis On: :48 Request Vitamin D Hydroxy (86341)Indication: Other osteoporosis On: :48 Request METABOLIC PANEL, COMPREHENSIVE (05660)Indication: Other hyperlipidemia On: :48 Request LIPID PANEL (28606)Indication: Other hyperlipidemia On: :48 Request SED RATE ERYTHROCYTE (97488)Indication: Chest pain, unspecified type On: :39 Request Comments: stat C-REACTIVE PROTEIN (62951)Indication: Chest pain, unspecified type On: :39 Request Comments: stat CBC W/AUTO DIFF WBC (66076)Indication: Chest pain, unspecified type On: :39 Request Comments: stat Hemoglobin Glyclated (HGB A1C) (18272)Indication: Impaired Fasting Glucose (Renamed from Elevated fasting blood sugar) On: 85-Oto-196710:50 Request URINALYSIS, W/ MICRO ([id number])Indication: Hypertension, benign On: :49 Request CBC with auto diff ([id number])Indication: Other specified nutritional anemias On: 14-Trc-340826:49 Request METABOLIC PANEL, COMPREHENSIVE (32439)Indication: Other specified nutritional anemias On: 29-Pmz-532322:49 Request LIPID PANEL (09486)Indication: Other hyperlipidemia On: 56-Pgu-238210:49 Request CBC W/AUTO DIFF WBC (04952)Indication: Other specified nutritional anemias On: :24 Request METABOLIC PANEL, COMPREHENSIVE (93992)Indication: Other hyperlipidemia On: :24 Request LIPID PANEL (78518)Indication: Other hyperlipidemia On: 05-Uwh-589235:24 Request IRON ([id number])Indication: Other specified nutritional anemias On: 0-Miz-646798:37 Request Planned Encounters Medical; JENN 3 Month FU - On: 22-Feb-2018 13:00 [facility] Fast DO, Enrike A Fast DO, Enrike A Planned Procedures Radiology - Cervical SpineBy: Fast On: 19-Nov-2017 Intent DO, Enrike A Fast DO, Enrike A Cartoid DopplerBy: Fast DO, Enrike A On: 17-Nov-2017 Intent Fast DO, Enrike A SCREENING DIGITAL TOMOSYNTHESIS OF On: 17-Nov-2017 Intent BREAST (58297)By: Fast DO, Enrike A Fast DO, Enrike A MRI OF THORACIC SPINE WITHOUT On: 13-Aug-2017 Intent CONTRAST ([id number])By: Fast DO, Enrike A Fast DO, Enrike A MRI LUMBAR SPINE W/O CONTRAST On: 13-Aug-2017 Intent (03675)By: Fast DO, Enrike A Fast DO, Enrike A INJECTION, PROLIA ([id number])By: Fast On: 26-Jul-2017 Intent DO, Enrike A Fast DO, Enrike A Comments: Prolia prefilled syringe 60mg/mlLot:[id number]:10/2019L arm SQPt tolerated 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 ,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 Radiology - Lumbar SpineBy: Fast DO, On: 09-Jun-2017 Intent Enrike A Fast DO, Enrike A Radiology - Thoracic SpineBy: Fast On: 09-Jun-2017 Intent DO, Enrike A Fast DO, Enrike A MRI OF BRAIN WITH AND WITHOUT On: 13-Apr-2017 Intent CONTRAST (11321)By: Fast DO, Enrike A Fast DO, Enrike A ELECTROCARDIOGRAM, COMPLETE (ECG) On: 13-Apr-2017 Intent (05613)By: Fast DO, Enrike A Fast DO, Comments: [...] DIGITAL TOMOSYNTHESIS OF On: 30-Sep-2016 Intent BREAST (20873)By: Fast DO, Enrike A Comments: end of oct Fast DO, Enrike A CT - Chest (Without Contrast)By: On: 30-Sep-2016 Intent Fast DO, Enrike A Fast DO, Enrike A Cartoid DopplerBy: Fast DO, Enrike A On: 04-Sep-2016 Intent Fast DO, Enrike A DEXA SCAN AXIAL SKELETON (21950)By: On: 04-Sep-2016 Intent Fast DO, Enrike A Fast DO, Enrike A Comments: mid september INJECTION, PROLIA (J0897)By: Fast On: 26-Aug-2016 Intent DO, Enrike A Fast DO, Enrike A Comments: prolialot:[id number]:ite:lt subqroute:subqdose:60mg/mlD.ARNOLDO Ardon ELECTROCARDIOGRAM, COMPLETE (ECG) On: 22-Jul-2016 Intent (82632)By: Fast DO, Enrike A Fast DO, Comments: ekg showed normal sinus rhythym, normal axis, no acute st/t wave changes Enrike A Cartoid DopplerBy: Fast DO, Enrike A On: 25-May-2016 Intent Fast DO, Enrike A Comments: bilateral INFUSION, NORMAL SALINE SOLUTION , On: 09-Apr-2016 Intent 1000 CC (Special Coverage Instructions Apply. See MCM: 2049) ([id number])By: Madyson Montiel MD ELECTROCARDIOGRAM, COMPLETE (ECG) On: 12-Feb-2016 Intent (45578)By: Fast DO, Enrike A Fast DO, Comments: ekg showed normal sinus rhythym, normal axis, no acute st/t wave changes Enrike A CT - Chest (Without Contrast)By: On: 12-Feb-2016 Intent Fast DO, Enrike A Fast DO, Enrike A Flu Vaccine (Quadrivalent) 84299Jf: On: 12-Feb-2016 Intent Fast DO, Enrike A Fast DO, Enrike A Comments: FLUlot: [id number]:08/05site:Lt deltoidroute:IMdose:.5mlARNOLDO WALLACE ADMINISTRATION OF INFLUENZA VIRUS On: 12-Feb-2016 Intent VACCINE (G0008)By: Fast DO, Enrike A Fast DO, Enrike A MAMMOGRAM, SCREENING, BOTH BREAST On: 13-Nov-2015 Intent (48970)By: Fast DO, Enrike A Fast DO, Enrike [...] Fast DO, Enrike A ZOSTER VACC, SC (27781)By: Reva On: 06-Mar-2015 Intent Ashton Comments: Zosterlot:[id number]:01/26/16ite:lt subqroute:subqDEMICK, SMA PNEUM VAC ADLT/IMUMNOSPR, SBC/INTRM On: 20-Feb-2015 Intent (49797)By: Visit, Nurse Comments: Pnuemovaxlot:[id number]:10/30/16site:lt deltoidroute:IMDose:.5mlDEMICK, SMA Flu Vaccine (Quadrivalent) 85947Vb: On: 11-Feb-2015 Intent Fast DO, Enrike A Fast DO, Enrike A Comments: Lot #:[id number] date: 08/2015Amount given:prefilled syringeSite given:L Dltd, IMGiven by: MARGOTH Garibay and ABN signed ADMINISTRATION OF INFLUENZA VIRUS On: 11-Feb-2015 Intent VACCINE (G0008)By: Fast DO, Enrike A Fast DO, Enrike A MAMMOGRAM, SCREENING, BOTH BREAST On: 25-Sep-2014 Intent (19662)By: Fast DO, Enrike A Fast DO, Enrike [...] 17-Apr-2014 Intent CHEST WITH AND WITHOUT CONTRAST (12566)By: Fast DO, Enrike A Fast DO, Enrike A CT - Brain/HeadBy: Fast DO, Enrike A On: 16-Apr-2014 Intent Fast DO, Enrike A Doppler Ultrasound OtherBy: Fast DO, On: 16-Apr-2014 Intent Enrike A Fast DO, Enrike A EKG (23635)By: Fast DO, Enrike A On: 16-Apr-2014 Intent Fast DO, Enrike A Comments: ekg showed normal sinus rhythym, normal axis, no acute st/t wave changes Planned Medications INFUSION, NORMAL SALINE SOLUTION , 1000 CC Ordered: 09-Apr-2016 Pending Albert JC, Madyson M INJECTION, PROLIA Ordered: 26-Aug-2016 Pending Fast DO, [...] Note for Follow up acute care visit: aysha smith had injection in back years ago, [ADDITIONAL [...] is intermittent sharp pain- knees better - Moodisrobinson thinks her chest sx are muscluar , [...] The patient does have durable power of deputy attorney general and l iving will (she thinks). The patient has noticed staying at home rather than doing something new or going out and lack of energy. Other providers contributing to the patient's care are water pollution specialist (Dr. Cota), student services rep (Dr. Pop) and other: (Dosimetrist- Dr. Villa sees eye dr mann.). Note [...] procedure results: nomore dizzy or syncope End: 16-Feb-2015 20:07 and bp was better- no gerd [...] Limb swelling), Fatigue [facility] Payers Canones/Medicare Adv Olivia LOPEZ; a guarantor
--- OUTSIDE RECORDS SUMMARY | 2018-04-13 15:33 | XMS RPT_ITS ---
:1945 Author Organization OHIP Support Name Relationship Address Phone RBYANT ALCOCER [address] + [place] [address] R Unknown Unavailable Unavailable BRYANT ALCOCER [address] + [place] [address] R Unknown Unavailable Unavailable R Unknown Unavailable Unavailable BRYANT ALCOCER [facility] [address] [place], [place] [address] + [place] [address] R Unknown Unavailable Unavailable BRYANT ALCOCER [facility] [address] + [place] [address] R Unknown Unavailable Unavailable BRYANT ALCOCER [facility] [address] + [place] [address] R Unknown Unavailable Unavailable BRYANT ALCOCER [facility] [address] + [place] [address] R Unknown Unavailable Unavailable BRYANT ALCOCER [facility] [address] + [place] [address] R Unknown Unavailable Unavailable BRYANT ALCOCER Unknown Unavailable + CARLYN BRYANT Unknown Unavailable + BRYANT ALCOCER [place] [address] + [place] [address] R Unknown Unavailable Unavailable [facility] [address] + [place] [address] R Unknown Unavailable Unavailable BRYANT ALCOCER [facility] [address] + [place] [address] R Unknown Unavailable Unavailable BRYANT ALCOCER [facility] [address] + [place] [address] R Unknown Unavailable Unavailable KEBRYANT HILL [facility] [address] + [place] [address] R Unknown Unavailable Unavailable MACKKEBRYANT HILL [facility] [address] + [place] [address] R Unknown Unavailable Unavailable BRYANT ALCOCER [facility] [address] + [place] [address] R Unknown Unavailable Unavailable CARLYN [facility] [place] [address] + [place] [address] R Unknown Unavailable Unavailable CARLYN [facility] [place] [address] + [place] [address] CANDELARIO ALCOCER Daughter In-Law [address] + [place] [address] R Unknown Unavailable Unavailable CARLYN [facility] [place] [address] + [place] [address] CANDELARIO ALCOCER Daughter In-Law [address] + [place] [address] R Unknown Unavailable Unavailable CARLYN [facility] [place] [address] + [place] [address] CANDELARIO ALCOCER Daughter In-Law [address] + [place] [address] R Unknown Unavailable Unavailable CARLYN [facility] [place] [address] + [place] [address] CANDELARIO ALCOCER Daughter In-Law [address] + [place] [address] R Unknown Unavailable Unavailable Care Team Providers Name Role Phone CHASIDY JC, RONY Chapa JR. Attending Unavailable NIURKA ADAMS DO Primary Care Unavailable Fast DO, Zuri A Attending Unavailable Fast DO, Zuri A Referring Unavailable Fast DO, Zuri A Consulting Unavailable Red Spaulding Attending Unavailable Fast, Zuri Primary Care Unavailable Fast, Zuri Referring Unavailable Red Spaulding Attending Unavailable Fast, Zuri Attending Unavailable Fast, Zuri Referring Unavailable Fast, Zuri Primary Care Unavailable Fast, Zuri Attending Unavailable Fast, Zuri Primary Care Unavailable Kirsten Padilla Attending Unavailable Fast, Zuri Referring Unavailable Fast, Zuri Attending Unavailable Fast, Zuri Primary Care Unavailable Fast, Zuri Referring Unavailable Moodispaw, Mike Attending Unavailable Fast, Zuri Referring Unavailable Fast, Zuri Primary Care Unavailable Moodispaw, Mike Attending Unavailable Moodispaw, Mike Referring Unavailable Fast, Zuri Primary Care Unavailable Moodispaw, Mike Attending Unavailable Moodispaw, Mike Referring Unavailable Fast, Zuri Primary Care Unavailable Prah, Red Attending Unavailable Fast, Zuri Referring Unavailable Fast, Zuri Primary Care Unavailable Prah, Red Consulting Unavailable Moodispaw, Mike Attending Unavailable Moodispaw, Mike Attending Unavailable Moodispaw, Mike Referring Unavailable Fast, Zuri Primary Care Unavailable Fast, Zuri Attending Unavailable Fast, Zuri Referring Unavailable Fast, Zuri Primary Care Unavailable Fast, Zuri Attending Unavailable Fast, Zuri Referring Unavailable Fast, Zuri Primary Care Unavailable Yassine, Merlin Attending Unavailable Fast, Zuri Referring Unavailable Fast, Zuri Primary Care Unavailable Fast, Zuri Attending Unavailable Fast, Zuri Primary Care Unavailable Fast, Zuri Consulting Unavailable Fast, Zuri Referring Unavailable Prebish, Karla CORPORATE ANALYST-C Attending Unavailable Prebish, Karla CORPORATE ANALYST-C Referring Unavailable Fast, Zuri Primary Care Unavailable Prah, Red Attending Unavailable Fast, Zuri Referring Unavailable Fast, Zuri Primary Care Unavailable Prah, Red Consulting Unavailable Fast, Zuri Attending Unavailable Fast, Zuri Referring Unavailable Fast, Zuri Primary Care Unavailable Purpose Purpose PROBLEMS PROBLEMS DATE TYPE CONDITION / CODE ATTENDING STATUS SOURCE 02/16/2018 Unknown R73.09 - Other Fast, Zuri Active [place] abnormal glucose / Community R73.09(ICD-10) Hospital Repository 02/16/2018 Unknown R79.89 - Other Fast, Zuri Active [place] specified abnormal Community findings of blood Hospital chemistry / Repository R79.89(ICD-10) 01/27/2018 Unknown D50.9 - Iron Prah, Red Active [place] deficiency anemia, Community unspecified / Hospital D50.9(ICD-10) Repository 12/23/2017 Unknown M54.2 - Cervicalgia / Prebish, Karla Active [place] M54.2(ICD-10) CORPORATE ANALYST-C [facility] Hospital Repository 12/23/2017 Unknown M54.6 - Pain in Prebish, Karla Active [place] thoracic spine / CORPORATE ANALYST-C Community M54.6(ICD-10) Hospital Repository 11/30/2017 Unknown Z23 - Encounter for Meriln Metzger Active [place] immunization / Community Z23(ICD-10) Hospital Repository 11/30/2017 Unknown J45.40 - Moderate YassineMerlin padilla Active [place] persistent asthma, Community uncomplicated / Hospital J45.40(ICD-10) Repository 11/10/2017 Unknown E78.4 - Other Fast, Zuri Active [place] hyperlipidemia / Community E78.4(ICD-10) Hospital Repository 11/10/2017 Unknown R94.6 - Abnormal Fast, Zuri Active [place] results of thyroid Community function studies / Hospital R94.6(ICD-10) Repository 11/02/2017 Unknown M54.5 - Low back pain Fast, Zuri Active [place] / M54.5(ICD-10) [facility] Hospital Repository 07/15/2017 Unknown I25.10 - MoodispaMike washburn Active [place] Atherosclerotic heart [facility] disease [facility] coronary artery Repository without angina pectoris / I25.10(ICD-10) 07/15/2017 Unknown E78.5 - MoodispaMike washburn Active [place] Hyperlipidemia, Community unspecified / Hospital E78.5(ICD-10) Repository 07/15/2017 Unknown I48.0 - Paroxysmal MoodispaMike washburn Active [place] atrial fibrillation / Community I48.0(ICD-10) Hospital Repository 07/15/2017 Unknown I10 - Essential MoodispaMike washburn Active [place] (primary) Community hypertension / Hospital I10(ICD-10) Repository 08/09/2017 Unknown R07.9 - Chest pain, MoodispaMike washburn Active [place] unspecified / Community R07.9(ICD-10) Hospital Repository PROCEDURES PROCEDURES No Procedure Records FoundVITAL SIGNS VITAL SIGNS No Vital Signs Records FoundRESULTS RESULTS CBC W/DIFF, AUTOMATED Collected: 02/16/2018 Status: F Source: [place] [facility] TYPE CODE TESTS RESULT OUT OF RANGE REFERENCE UNITS LAB L100.1000 4.4-11.0 K/mm3 Low WBC 4.0 LAB L100.1200 4.2-5.4 M/mm3 Low RBC 3.64 LAB L100.1300 12.0-15.0 g/dl Low HGB 11.2 LAB L100.1400 37-47 % Low HCT 36.7 LAB L100.1500 81-99 fL High MCV 100.8 LAB L100.1600 27.0-32.0 pg Normal MCH 30.8 LAB L100.1700 32-36 g/gl Low MCHC 30.5 LAB L100.1810 11.6-14.6 % Normal RDW CV 13.1 LAB L100.1820 35.1-43.9 fl High RDW SD 48.1 LAB L100.1900 150-450 K/mm3 Normal PLT 249 LAB L100.2000 6.2-12.0 fl Normal MPV 10.2 LAB L100.2100 47-70 % Normal NEUT% 49.8 LAB L100.2200 19-41 % Normal LY% 36.8 LAB L100.2300 0-10 % Normal MONO% 9.2 LAB L100.2400 0-5 % Normal EO% 3.2 LAB L100.2500 0-1 % Normal BASO% 1.0 LAB L100.2550 0.0-0.9 % Normal IM GRAN % 0.000 Result Comment: IG% - Immature Granulocytes (promyelocytes, myelocytes and metamyelocytes) > 1% indicates that a LEFT SHIFT is Present. LAB L100.2620 2.0-7.7 X10 3/uL Normal Absolute Neut 2.0 LAB L100.2720 0.83-4.51 X10 3/ul Normal Absolute Lymph 1.48 Performed By: #### L100.0100 #### [facility] [address], [place], [id number] HEMOGLOBIN A1C Collected: 02/16/2018 Status: F Source: [place] 9:15 AM [facility] REPOSITORY TYPE CODE TESTS RESULT OUT OF RANGE REFERENCE UNITS LAB L501.9985 4.2-6.3 % Normal HGB A1C 5.5 Performed By: #### L501.9985 #### [facility] [address], [place], [id number] COMPREHENSIVE METABOLIC Collected: 02/16/2018 Status: F Source: [facility] 9:15 AM [facility] REPOSITORY TYPE CODE TESTS RESULT OUT OF RANGE REFERENCE UNITS LAB L501.0100 74-106 mg/dL Normal GLU 90 Result Comment: Please note revised GLUCOSE reference range effective 2017. LAB L501.1000 7-18 mg/dL High BUN 25 LAB L501.1100 0.55-1.02 mg/dL High CREAT,SERUM 1.23 Result Comment: The validity of the calculated GFR AND GFRAA in patients over 70 years has not been determined. Clinical correlation is essential. LAB L501.1110 >60 mL/min Low EST GFR 46 Result Comment: Non- GFR Calc LAB L501.1115 >60 mL/min Low EST GFR - AA 55 Result Comment: GFR Calc LAB L501.1300 10-20 RATIO High BUN/CRE 20.3 LAB L501.1500 6.4-8.2 g/dL T Normal PROT 7.0 LAB L501.1800 3.2-5.0 g/dL Normal ALB 3.6 LAB L501.1950 2.2-4.2 g/dL Normal GLOB 3.4 LAB L501.2000 0.9-2.4 RATIO Normal A/G 1.1 LAB L501.2200 8.5-10.1 mg/dL CA Normal 9.2 LAB L501.4100 15-37 U/L Low AST 12 LAB L501.4305 45-117 U/L Low ALK P 40 LAB L501.4405 13-56 U/L Normal ALT 17 LAB L501.4600 0.20-1.00 mg/dL T Normal BILI 0.30 LAB L501.5300 136-145 mmol/L NA Normal 144 LAB L501.5600 3.5-5.1 mmol/L K Normal 4.4 LAB L501.5900 98-107 mmol/L High CL 108 LAB L501.6100 21.0-32.0 mmol/L Normal CO2 29.0 LAB L501.6200 5-15 Normal GAP 7 Performed By: #### L500.4050, L500.4100, L501.9520 #### [facility] [address] [place], [place], [id number] LIPID PROFILE Collected: 02/16/2018 Status: F Source: [place] 9:15 AM [facility] REPOSITORY TYPE CODE TESTS RESULT OUT OF RANGE REFERENCE UNITS LAB L501.4900 200 mg/dL Normal CHOL 183 Result Comment: <200 mg/dL Desirable 200-240 mg/dL Borderline >240 mg/dL High Risk LAB L501.5000 mg/dL Normal TRIG 82 Result Comment: The drugs N-Acetylcysteine and Metamizole may falsely depress this assay. Serum Triglycerides Reference Interval Normal <150 mg/dL Borderline high 150 - 199 mg/dL High 200 - 499 mg/dL Very High > or = 500 mg/dL LAB L501.6400 mg/dL Normal HDL 80 Result Comment: The drugs N-Acetylcysteine and Metamizole may falsely depress this assay. Reference Range HDL <40 mg/dL Low HDL Cholesterol HDL >or= 60 mg/dL High HDL Cholesterol LAB L501.6500 0-130 mg/dL Normal LDL 87 LAB L501.6600 5-40 mg/dL Normal VLDL 16 Performed By: #### L500.4050, L500.4100, L501.9520 #### [facility] [address] [place], [address] THYROID STIM HORMONE Collected: 02/16/2018 Status: F Source: [place] ([facility]) 9:15 AM [facility] REPOSITORY TYPE CODE TESTS RESULT OUT OF RANGE REFERENCE UNITS LAB L501.9520 0.358-3.74 uIU/mL High TSH 4.30 Performed By: #### L500.4050, L500.4100, L501.9520 #### [facility] [address] [place], [address] Observed: 01/27/2018 Status: F Source: [place] STOOL OCCULT BLOOD 3:25 PM [facility] IFOB REPOSITORY Reason for Laboratory Test . STOB iFOB Occult Blood Negative Performed By: #### M100.7900 #### [facility] [address] [place], [address] ONCOLOGY VISIT REPORT Observed: 01/25/2018 Status: F Source: [place] 11:53 AM [facility] REPOSITORY [facility] [address] [place] [address]. [place] [address] OFFICE VISIT Date of Service: 01/25/18 1145 MR#: [id number] Acct: [id number] Name: CARLYNCHASECatalina Rep #: [id number] : 1945 From: Red Spaulding MD Age/Sex: 72/F Location: D Status: Signed Subjective - Date of Service Date of Service:: 01/25/18 - Chief Complaint F/u for anemia and Neutropenia - History of Present Illness Ms. Lupe Alcocer is a pleasant 72 year old woman with a past medical history for coronary artery disease, arthritis, osteoporosis, KATINA and hypertension who presented with incidental findings of leukopenia and anemia. Subsequently she underwent BMBX 07/31/2014, which showed variable cellular marrow, multiple minute lymphoid aggregates in clot section (polytopic by IHC). She developed an unprovoked PE 06/13/15. Began Xarelto and continues per cardiology for management of paroxysmal atrial fibrillation. She was found to have iron deficiency and started on Iron and orange juice. She comes in for follow up. - Past Medical/Social History Past Medical History Past Medical History: Anemia,COPD,Heart disease,Hyperlipidemia, Hypertension,Pneumonia Other Past Medical History: Cough Pulmonary Embolism Past Surgical History Other Surgical History: Jaw surgery, sinus surgery, foot surgery, hand surgery Mole removed 12-10-15\ skin leison on forehead and left elbow removed pre cancer 12-25-16 Family History Paternal Past Medical History: Unknown Paternal History of Cancer Bone cancer Maternal Past Medical History: Unknown Social History Social History: No changes Smoking Status Former smoker Review of Systems Constitutional:: Denies: Fever, Sweats, Weight loss, Appetite change, Chills Cardiovascular:: Denies: Chest pain, Palpitations, Dyspnea on exertion, Orthopnea, PND, Shortness of breath Respiratory: Denies: Cough, Hemoptysis, Shortness of Breath, Wheezing Gastrointestinal:: Denies: Abdominal pain, Nausea, Vomiting, Diarrhea, Constipation, Hematochezia Genitourinary: Denies: Dysuria, Hematuria, 15, Flank pain Musculoskeletal:: Denies: Back pain, Myalgia, Arthralgia Skin: Denies: Rash, Skin Changes, Wounds Neurological:: Denies: Headache, Dizziness, Visual changes, Tinnitus, Hearing loss Psychiatric: Denies: Anxiety, [...] and Plan Iron Deficiency-resolved. Anemia-mild and cyclical. Neutropenia-mild and cyclical. Clinically stable, no need for therapy. Plan is to continue Iron supplements with Vitamin C or [place] juice. Check stool for FOBT. RTC 6 months with CBC, CMP, Iron studies. Medications: Prescriptions This Visit Medication Instructions Recorded Meloxicam [Mobic] 15 mg PO DAILY 06/16/16 Rivaroxaban [Xarelto] 20 mg PO DAILY 06/29/16 Primary Care Provider: Zuri Gutierrez DO Referring Provider: - Problem List (1) Iron deficiency Status: Resolved (2) Anemia Status: Chronic Qualifiers: Anemia type: unspecified type Qualified Code(s): D64.9 - Anemia, unspecified (3) Leukopenia Status: Chronic Code Visit Office Visits / Consults: [id number] OV L3 Est 01/25/18 1153 <Electronically signed by Red Spaulding MD> Date Red Spaulding MD Cosigner Signature: Date (if applicable) CC: Zuri Gutierrez DO CBC W/DIFF, AUTOMATED Collected: 01/18/2018 Status: F Source: [place] 10:07 AM [facility] REPOSITORY Order Comment: Reason for Laboratory Test . TYPE CODE TESTS RESULT OUT OF RANGE REFERENCE UNITS LAB L100.1000 4.4-11.0 K/mm3 Low WBC 3.4 LAB L100.1200 4.2-5.4 M/mm3 Low RBC 3.39 LAB L100.1300 12.0-15.0 g/dl Low HGB 10.8 LAB L100.1400 37-47 % Low HCT 34.5 LAB L100.1500 81-99 fL High MCV 101.8 LAB L100.1600 27.0-32.0 pg Normal MCH 31.9 LAB L100.1700 32-36 g/gl Low MCHC 31.3 LAB L100.1810 11.6-14.6 % Normal RDW CV 12.8 LAB L100.1820 35.1-43.9 fl High RDW SD 46.3 LAB L100.1900 150-450 K/mm3 Normal PLT 230 LAB L100.2000 6.2-12.0 fl Normal MPV 10.1 LAB L100.2100 47-70 % Normal NEUT% 50.8 LAB L100.2200 19-41 % Normal LY% 35.8 LAB L100.2300 0-10 % Normal MONO% 9.9 LAB L100.2400 0-5 % Normal EO% 2.6 LAB L100.2500 0-1 % Normal BASO% 0.9 LAB L100.2550 0.0-0.9 % Normal IM GRAN % 0.000 Result Comment: IG% - Immature Granulocytes (promyelocytes, myelocytes and metamyelocytes) > 1% indicates that a LEFT SHIFT is Present. LAB L100.2620 2.0-7.7 X10 3/uL Low Absolute Neut 1.8 LAB L100.2720 0.83-4.51 X10 3/ul Normal Absolute Lymph 1.23 Performed By: #### L100.0100 #### [facility] [address] [facility]. [place], [place], [id number] COMPREHENSIVE METABOLIC Collected: 01/18/2018 Status: F Source: [facility] 10:07 AM [facility] REPOSITORY Order Comment: Reason for Laboratory Test . TYPE CODE TESTS RESULT OUT OF RANGE REFERENCE UNITS LAB L501.0100 74-106 mg/dL Normal GLU 88 Result Comment: Please note revised GLUCOSE reference range effective 2017. LAB L501.1000 7-18 mg/dL High BUN 27 LAB L501.1100 0.55-1.02 mg/dL High CREAT,SERUM 1.12 Result Comment: The validity of the calculated GFR AND GFRAA in patients over 70 years has not been determined. Clinical correlation is essential. LAB L501.1110 >60 mL/min Low EST GFR 51 Result Comment: Non- GFR Calc LAB L501.1115 >60 mL/min Normal EST GFR - AA 61 Result Comment: GFR Calc LAB L501.1255 ml/min Normal Estimated CRCL 40.86 LAB L501.1300 10-20 RATIO High BUN/CRE 24.1 LAB L501.1500 6.4-8. g/dL Normal 2 T PROT 7.0 LAB L501.1800 3.2-5. g/dL Normal 0 ALB 3.8 LAB L501.1950 2.2-4. g/dL Normal 2 GLOB 3.2 LAB L501.2000 0.9-2. RATIO Normal 4 A/G 1.2 LAB L501.2200 8.5-10 mg/dL Normal .1 CA 8.9 LAB L501.4100 15-37 U/L Normal AST 15 LAB L501.4305 45-117 U/L Low ALK P 37 LAB L501.4405 13-56 U/L Normal ALT 14 LAB L501.4600 0.20-1 mg/dL Normal .00 T BILI 0.40 LAB L501.5300 136-14 mmol/L Normal 5 NA 142 LAB L501.5600 3.5-5. mmol/L Normal 1 K 3.9 LAB L501.5900 98-107 mmol/L Normal CL 106 LAB L501.6100 21.0-3 mmol/L Normal 2.0 CO2 29.0 LAB L501.6200 5-15 Normal GAP 7 Performed By: #### L500.4050, L503.6030, L503.6550 #### [facility] [address] [place], [place], [address] IRON+IRON BINDING Collected: 01/18/2018 Status: F Source: [facility] 10:07 AM [facility] REPOSITORY Order Comment: Reason for Laboratory Test . TYPE CODE TESTS RESULT OUT OF RANGE REFERENCE UNITS LAB L503.6075 250-450 ug/dL TIBC Normal 329 LAB L503.6150 50-170 ug/dL IRON Normal 56 LAB L503.6250 15.0-55.0 % IRON Normal SATURATION 17.0 Performed By: #### L500.4050, L503.6030, L503.6550 #### [facility] [address] [place], [address] FERRITIN Collected: 01/18/2018 Status: F Source: [place] 10:07 AM [facility] REPOSITORY Order Comment: Reason for Laboratory Test . TYPE CODE TESTS RESULT OUT OF RANGE REFERENCE UNITS LAB L503.6550 8-252 ng/mL Normal FERRITIN 26 Performed By: #### L500.4050, L503.6030, L503.6550 #### [facility] [address] [place], [address] THORACIC SPINE 2 Observed: 12/23/2017 Status: F Source: [place] VIEWS 11:31 AM [facility] REPOSITORY [facility] Imaging Services [address] [facility] [place] [address] Thoracic Spine 2 Views MR#: [id number] Acct: [id number] Name: LUPE ALCOCER Rep #: [id number] : 1945 F 72 From: Ming Odonnell MD PCP: Zuri Gutierrez DO Status: REG CLI Study: Thoracic Spine 2 Views Date of Exam: 12/23/17 Exam# [id number] Ordering Dr: Karla Berry CORPORATE ANALYST-Geri STUDY: X-RAY - THORACIC SPINE REASON FOR EXAM: Female, 72 years old. Upper back pain TECHNIQUE: 2 view(s) of the thoracic spine were obtained. COMPARISON: 06/09/2017 FINDINGS: There is an increase in the normal thoracic kyphosis. There is no substantial scoliosis. There is multilevel endplate spondylosis of the thoracic vertebrae. There is multilevel disc space narrowing of the thoracic spine. The soft tissue structures are unremarkable. RAD/Thoracic Spine 2 Views IMPRESSION: Multilevel degenerative changes, no demonstrated fracture Electronically Signed: Deshawn Odonnell MD at 15:23 EDT , Service support , CC: Zuri LOPEZ Prebish Banquet Chef: Signed CERV SPINE 2 OR 3 Observed: 12/23/2017 Status: F Source: [place] VIEWS 11:31 AM [facility]OSPITAL REPOSITORY [facility] Imaging Services [address] [place] [address] Cerv Spine 2 or 3 Views MR#: [id number] Acct: [id number] Name: LUPE ALCOCER Rep #: [id number] : 1945 F 72 From: Ming Odonnell MD PCP: Zuri Gutierrez DO Status: REG CLI Study: Cerv Spine 2 or 3 Views Date of Exam: 12/23/17 Exam# [id number] Ordering Dr: Karla Berry STUDY: X-RAY - CERVICAL SPINE REASON FOR EXAM: Female, 72 years old. Neck pain and headache TECHNIQUE: 3 view(s) of the cervical spine were obtained. COMPARISON: 2015 FINDINGS: Normal anterior atlantoaxial articulation. Normal odontoid process. Normal cervical lordosis. There is multi-level endplate spondylosis. There is multi-level degenerative disc disease with multilevel disc space narrowing. The soft tissue structures are unremarkable. There is no demonstrated fracture of the cervical spine. RAD/Cerv Spine 2 or 3 Views IMPRESSION: Multilevel degenerative changes, no demonstrated fracture Electronically Signed: Deshawn Odonnell MD at 15:23 EDT , Service support , CC: Zuri LOPEZ Prebiricardo Banquet Chef: Signed CAROTID DUPLEX Observed: 12/11/2017 Status: F Source: [place] ULTRASOUND 2:06 PM [facility] HOSPITAL REPOSITORY [facility] Cardiovascular Services [address] [place] [address] Carotid Duplex Ultrasound 12/10/17 1013 MR#: [id number] Acct: [id number] Name: LUPE ALCOCER Rep #: [id number] : 1945 72 From: Brice Murphy MD Attending Dr: Zuri Gutierrez DO Status: REG CLI Ordering Dr: Zuri Gutierrze DO Date: 12/10/17 Location: [facility] Sex: F C Admitted: Reason For Study: Stenosis Rt. Velocities/BP Lt. Velocities/BP Prox CCA 84.4/15.8 cm/sec. Prox CCA 89.6/9.43 cm/sec. Mid CCA 80.9/13.5 cm/sec. Mid CCA 101/19.6 cm/sec. Dist CCA 85/19.3 cm/sec. Dist CCA 83.3/17.3 cm/sec. Prox ICA 84.4/18.2 cm/sec. Prox ICA [...] the left vertebral artery. Procedure Carotid Duplex 73120. Exam performed in department. Interpretation Summary Mild (<50%) stenosis right extracranial internal carotid. Mild (<50%) stenosis left extracranial internal carotid. Flow within the vertebral arteries is antegrade bilaterally. Ordering Physician: Zuri Gutierrez Referring Physician: Zuri Gutierrez Performed By: Riaz Ashley RVT and Student 12/11/17 1406 Date Brice Murphy MD CC: Zuri Gutierrez DO Date Dictated: 12/10/17 1013 Date Transcribed: 12/11/17 1406 Banquet Chef: Signed SCREENING MAMM (CAD), Observed: 12/10/2017 Status: F Source: [facility] 10:48 AM [facility] REPOSITORY [facility] Imaging Services [address] [place] [address] SCREENING MAMM (CAD), BIL MR#: [id number] Acct: [id number] Name: LUPE ALCOCER Rep #: [id number] : 1945 F 72 From: Johnny Gilman MD PCP: Zuri Gutierrez DO Status: REG CLI Study: SCREENING MAMM (CAD), BIL Date of Exam: 12/10/17 Exam# [id number] Ordering Dr: Zuri Gutierrez DO MAMMOGRAPHY - BILATERAL SCREENING REASON [...] secretory calcification. No other significant abnormalities are identified. There has been no significant change since the prior study. BI/SCREENING MAMM (CAD), BILAT IMPRESSION: Stable bilateral screening mammogram. Yearly follow-up mammogram recommended. (A) ASSESSMENT CATEGORY: BIRADS Category 2: Benign. A letter regarding these results will be sent to the patient by the facility within 30 days. Approximately 10% of breast cancers are not detected by mammography. A normal mammogram should not delay biopsy of a clinically suspicious abnormality. [id number] Electronically Signed: Johnny Gilman MD at 13:14 EDT Tel [phone], Service support , CC: Zuri Gutierrez DO Banquet Chef: Signed PULMONARY VISIT REPORT Observed: 11/30/2017 Status: F Source: [place] 10:54 AM [facility] REPOSITORY [facility] [address] [place] [address] OFFICE VISIT Date of Service: 11/30/17 MR#: [id number] Acct: [id number] Name: LUPE ALCOCER Rep #: [id number] : 1945 Provider: Merlin Metzger MD Age/Sex: 72/F Location: [facility] Status: Signed Assessment AND Plan Problems 1. Moderate persistent asthma without complication J45.40 2. Lung nodule R91.1 3. Paroxysmal atrial fibrillation I48.0 Plan Appears to be doing well from a respiratory standpoint. Patient does follow with oncology for lung nodule. Will continue on Advair therapy. Will repeat pulmonary function test prior to next visit to ensure stability. Patient does have a history of paroxysmal A. fib, but appears to be in rhythm on physical exam. Patient is on appropriate anticoagulation without bleeding complications. Patient has yet to receive a flu shot, so one will be given. Continue current therapy. Orders Orders: Medications Discontinued: azelastine administer into vagv992.5 mcg (0.14 mL) Intranasal BIDJ30.2 Merlin Metzger MD nostril Discontinued Reason: Pt no longer taking HPI 6 M FU: Chief Complaint: Chronic cough Details: Patient is a 72-year-old female, currently under care of Dr. Gutierrez, who presents for evaluation secondary to chronic cough. Since last visit, patient denies any ER visits, hospitalizations or prednisone burst. Patient feels that overall she is subjectively unchanged compared to previous. Patient states she has been compliant with her Advair therapy. Patient denies any complications such as thrush, hoarseness or sore throat. Patient estimates that she uses her albuterol approximately once per month. Patient continues to have significant issues with sinus congestion and postnasal drip associated with seasonal allergies. Patient states that she has been receiving [...] rate control for her paroxysmal A. fib. Patient denies any recent palpitations, lower extremity edema or change in weight. Intake Vital Signs11/30/17 Height 5 ft 5 in 11/30/17 Weight: 66.224 kg Intake Visit Reasons: 6 M FU Interpretive Program Coordinator Required: No Accompanied by: Family / Other Allergies No Known Allergies Allergy (Verified 11/30/17 06:54) Medications Amlodipine [Norvasc] 10 mg PO DAILY 06/20/15 [History Confirmed 11/30/17] Aspirin [Aspirin, Baby] 81 mg PO DAILY@0800 06/20/15 [History Confirmed 11/30/17] Atorvastatin Calcium [Lipitor] 60 mg PO QHS 06/20/15 [History Confirmed 11/30/17] Calcium Carbonate/Vitamin D3 [Calcium 600-Vit D3 400 Caplet] 1 ea PO DAILY 06/20/15 [History Confirmed 11/30/17] Carvedilol [Coreg (Beta Raisa)] 12.5 mg PO BID 06/20/15 [History Confirmed 11/30/17] Cholecalciferol (VIT D3) [Vitamin D3] 1,000 unit PO DAILY 06/20/15 [History Confirmed 11/30/17] Dexlansoprazole [Dexilant] 60 mg PO DAILY 06/20/15 [History Confirmed 11/30/17] Losartan/Hydrochlorothiazide [Hyzaar 100-25 Tablet] 1 tab PO DAILY 06/20/15 [History Confirmed 11/30/17] Montelukast [Singulair] 10 mg PO [...] Q12H 06/16/17 [History Confirmed 11/30/17] fluticasone 50 mcg/actuation nasal spray,suspension 1 spray INTRANASAL BID #16 g 06/21/17 [Rx Confirmed 11/30/17] isosorbide dinitrate 30 mg tablet 30 mg PO QDAY tab 07/01/17 [History Confirmed 11/30/17] ascorbic acid (vitamin C) 500 mg capsule [...] QDAY #90 tab 07/19/17 [Rx Confirmed 11/30/17] [facility] Medical History Carotid stenosis (Chronic) GERD (gastroesophageal reflux disease) (Chronic) Lung nodule (Chronic) Atherosclerotic heart disease of [place] coronary artery without angina pectoris (Chronic) Moderate persistent asthma (Chronic) Chest pain (Acute) COPD (chronic obstructive pulmonary disease) (Chronic) Paroxysmal atrial fibrillation (Chronic) Hyperlipidemia (Chronic) Iron deficiency (Resolved) Hypertension (Chronic) Fibromyalgia (Chronic) History of pulmonary embolism (Chronic) Surgical History History of foot surgery (Resolved) History of hand surgery (Resolved) History of mandibular surgery (Resolved) History of sinus surgery (Resolved) mole removal (Resolved) Family History Sister Breast cancer Brother Heart disease Sister Diabetes Social History Smoking Status: Former smoker second hand exposure: No alcohol intake: never substance use type: does not use Review of Systems Const CONSTITUTIONAL: Positive seasonal allergies; negative anorexia, body ache, chills, daytime sleepiness, fever(s), night sweats, oral thrush, stops breathing during sleep, weight loss, sleeping in chair, fatigue, weight loss, weight gain, frequent colds, other, headache(s) or orthopnea EETM Ear Nose Throat Mouth: Positive hearing normal and nasal discharge; negative hard of hearing, hoarseness, dry mouth in morning, change in vision, itchy eyes, eye pain, swallowing Difficulty, ear pain, nose bleed, headache(s), mouth pain, nasal congestion, post nasal drip, sinus pain, sinus pressure, sore throat or other Cardio Cardiovascular: Negative chest pain, chest pain at rest, chest pain with activity, irregular heart rhythm, edema, shortness of breath when lying down, palpitations, murmur or other Resp Respiratory: Positive as per HPI and cough cough: Positive productive color: Positive thick and clear; negative shortness of breath, pain with cough, wheezing, chest congestion, chest tightness, pain on inspiration, inhalers, increase use of rescue inhalers, snoring, apnea or other Gastro Gastrointestional: Negative bloody stools, change in appetite, difficulty swallowing, [...] negative cyanosis of lips/distal nose, frontal sinus tenderness or maxillary sinus tenderness Eyes Eye: Positive clear conjunctiva; negative nystagmus, scleral abnormality or cataract present Ears Ear: Positive hearing normal and external ears normal; negative hard of hearing Nose Nose: Positive external nose normal, septum normal and clear nasal discharge; negative epistaxis or nasal polyp Mouth Mouth: Positive oral mucosae normal, no lesions and posterior oropharynx is adequate; negative post nasal drip, malodorous breath or oral thrush present Mallampati Score: II: Mallampati Score Neck Neck: Positive normal visual inspection, full ROM and trachea midline; negative lymphadenopathy or JVD Chest Wall Chest: Positive normal inspection of the chest and symmetric chest movement; negative crepitus or tenderness Resp lung sounds: Positive clear to auscultation, good air exchange, normal expiratory time and normal respiratory effort; negative wheezes, rhonchi, rales, use of accessory muscles, wheeze present on forced exhalation or dullness to percussion Cardio Cardiac: Positive regular rate, regular rhythm, S1 normal and S2 normal; negative murmur, rub or gallop GI GI: Positive normal to inspection and normal bowel sounds; negative distended, ascites or epigastric tenderness Genitourinary: Positive deferred Musc Musculoskeletal: Positive steady gait; negative using an assistive device for ambulation, kyphosis or scoliosis Skin Pulmonary Skin Exam: Positive intact; negative rash, lesion, ulcers, erythema or dermal atrophy Pulses Pulse: Yes radial pulses present Extremities Extremities: Yes capillary refill normal, No clubbing, No cyanosis, No edema, No stasis dermatitis Neuro Neurologic: Yes conversant, Yes no focal neuro deficits, Yes normal concentration, Yes understands questions, Yes cooperative, Yes normal cognition, Yes normal coordination Lymph Lymphatic: No lymphadenopathy Psych Appearance: Positive grossly normal Mental Status: Positive mental status grossly normal Mood: Positive congruent mood Affect: Positive normal affect Immunizations flu vacc (65yr up)-MF59C(PF) 45 mcg(15 mcgx3)/0.5 mL IM syringe Performing Provider: Merlin Metzger MD Administered by: Lakesha Henriquez on 11/30/17 10:27 Dose Route Admin Location Lot Number Expiration Date NDC Dog Daycare Provider 0.5 mL IM Left Deltoid [id number] 07/19/17 28538-695-00 SEQIRUS VIS Given Date VIS Publication Date 11/30/17 10/26/14 Eligibility Eligibility Date Coding Level of Care Code Off vis,est,level 3 Diagnoses Moderate persistent asthma without complication J45.40 Asthma complication type: uncomplicated Lung nodule R91.1 Paroxysmal atrial fibrillation I48.0 11/30/17 1054 <Electronically signed by Merlin Metzger MD> Date Merlin Metzger MD Cosigner Signature: Date (if applicable) CC: Zuri Gutierrez DO CBC W/DIFF, AUTOMATED Collected: 11/10/2017 Status: F Source: [place] 12:47 PM [facility] REPOSITORY TYPE CODE TESTS RESULT OUT OF RANGE REFERENCE UNITS LAB L100.1000 4.4-11.0 K/mm3 Normal WBC 4.8 LAB L100.1200 4.2-5.4 M/mm3 Low RBC 3.78 LAB L100.1300 12.0-15.0 g/dl Low HGB 11.9 LAB L100.1400 37-47 % Low HCT 36.1 LAB L100.1500 81-99 fL Normal MCV 95.5 LAB L100.1600 27.0-32.0 pg Normal MCH 31.5 LAB L100.1700 32-36 g/gl Normal MCHC 33.0 LAB L100.1810 11.6-14.6 % Normal RDW CV 12.4 LAB L100.1820 35.1-43.9 fl Normal RDW SD 42.2 LAB L100.1900 150-450 K/mm3 Normal PLT 274 LAB L100.2000 6.2-12.0 fl Normal MPV 10.2 LAB L100.2100 47-70 % Normal NEUT% 64.5 LAB L100.2200 19-41 % Normal LY% 25.7 LAB L100.2300 0-10 % Normal MONO% 8.2 LAB L100.2400 0-5 % Normal EO% 1.0 LAB L100.2500 0-1 % Normal BASO% 0.6 LAB L100.2550 0.0-0.9 % Normal IM GRAN % 0.000 Result Comment: IG% - Immature Granulocytes (promyelocytes, myelocytes and metamyelocytes) > 1% indicates that a LEFT SHIFT is Present. LAB L100.2620 2.0-7.7 X10 3/uL Normal Absolute Neut 3.1 LAB L100.2720 0.83-4.51 X10 3/ul Normal Absolute Lymph 1.23 Performed By: #### L100.0100 #### [facility] [address] [facility] 138351 HEMOGLOBIN A1C Collected: 11/10/2017 Status: F Source: [place] 12:47 PM [facility] REPOSITORY TYPE CODE TESTS RESULT OUT OF RANGE REFERENCE UNITS LAB L501.9985 4.2-6.3 % Normal HGB A1C 5.5 Performed By: #### L501.9985 #### [facility] [address] [facility] [id number] COMPREHENSIVE METABOLIC Collected: 11/10/2017 Status: F Source: [facility] 12:47 PM [facility] REPOSITORY TYPE CODE TESTS RESULT OUT OF RANGE REFERENCE UNITS LAB L501.0100 74-106 mg/dL Normal GLU 96 Result Comment: Please note revised GLUCOSE reference range effective 2017. LAB L501.1000 7-18 mg/dL High BUN 30 LAB L501.1100 0.55-1.02 mg/dL High CREAT,SERUM 1.56 Result Comment: The validity of the calculated GFR AND GFRAA in patients over 70 years has not been determined. Clinical correlation is essential. LAB L501.1110 >60 mL/min Low EST GFR 35 Result Comment: Non- GFR Calc LAB L501.1115 >60 mL/min Low EST GFR - AA 42 Result Comment: GFR Calc LAB L501.1300 10-20 RATIO Normal BUN/CRE 19.2 LAB L501.1500 6.4-8.2 g/dL T Normal PROT 7.8 LAB L501.1800 3.2-5.0 g/dL Normal ALB 4.3 LAB L501.1950 2.2-4.2 g/dL Normal GLOB 3.5 LAB L501.2000 0.9-2.4 RATIO Normal A/G 1.2 LAB L501.2200 8.5-10.1 mg/dL CA Normal 9.2 LAB L501.4100 15-37 U/L Normal AST 25 LAB L501.4305 45-117 U/L Low ALK P 39 LAB L501.4405 13-56 U/L Normal ALT 21 LAB L501.4600 0.20-1.00 mg/dL T Normal BILI 0.70 LAB L501.5300 136-145 mmol/L NA Normal 136 LAB L501.5600 3.5-5.1 mmol/L K Normal 3.7 LAB L501.5900 98-107 mmol/L CL Normal 102 LAB L501.6100 21.0-32.0 mmol/L Normal CO2 25.0 LAB L501.6200 5-15 Normal GAP 9 Performed By: #### L500.4050, L500.4100, L501.9520 #### [facility] [address] [place], [place], [id number] LIPID PROFILE Collected: 11/10/2017 Status: F Source: [place] 12:47 PM [facility] REPOSITORY TYPE CODE TESTS RESULT OUT OF RANGE REFERENCE UNITS LAB L501.4900 200 mg/dL Normal CHOL 180 Result Comment: <200 mg/dL Desirable 200-240 mg/dL Borderline >240 mg/dL High Risk LAB L501.5000 mg/dL Normal TRIG 88 Result Comment: The drugs N-Acetylcysteine and Metamizole may falsely depress this assay. Serum Triglycerides Reference Interval Normal <150 mg/dL Borderline high 150 - 199 mg/dL High 200 - 499 mg/dL Very High > or = 500 mg/dL LAB L501.6400 mg/dL Normal HDL 76 Result Comment: The drugs N-Acetylcysteine and Metamizole may falsely depress this assay. Reference Range HDL <40 mg/dL Low HDL Cholesterol HDL >or= 60 mg/dL High HDL Cholesterol LAB L501.6500 0-130 mg/dL Normal LDL 86 LAB L501.6600 5-40 mg/dL Normal VLDL 18 Performed By: #### L500.4050, L500.4100, L501.9520 #### [facility] [address] [facility] [place], [address] THYROID STIM HORMONE Collected: 11/10/2017 Status: F Source: [place] (T[facility]) 12:47 PM [facility] REPOSITORY TYPE CODE TESTS RESULT OUT OF RANGE REFERENCE UNITS LAB L501.9520 0.358-3.74 uIU/mL High TSH 4.65 Performed By: #### L500.4050, L500.4100, L501.9520 #### [facility] [address] [facility] [place], [address] DOWNTIME REPORT Observed: 09/09/2017 Status: F Source: [place] 1:08 PM [facility] REPOSITORY [facility] Medical Records Department [address] [facility] [place] [address] Downtime Report MR#: [id number] Acct: [id number] Name: LUPE ALCOCER Rep #: [id number] : 1945 72 From: Turner Pike PCP: Zuri Gutierrez DO Status: REG CLI This patient was seen during an EMR downtime August 23, 2017 - August 30, 2017. This patient may have a combination of paper and electronic documentation or all paper documentation. All documentation is viewable within the e-chart portion of [facility] for each patient visit. SPINE LUMBAR Observed: 08/27/2017 Status: F Source: [place] (ROUTINE) 9:58 AM [facility] REPOSITORY [facility] Imaging Services [address] [place] [address] Spine Lumbar (Routine) MR#: [id number] Acct: [id number] Name: LUPE ALCOCER Rep #: [id number] : 1945 F 72 From: Carlos Pizano PCP: Zuri Gutierrez DO Status: REG CLI Study: Spine Lumbar (Routine) Date of Exam: 08/25/17 Exam# [id number] Ordering Dr: Zuri Gutierrez DO STUDY: MRI LUMBAR SPINE WITHOUT [...] spondylosis. There is a mild disc bulge asymmetric to the left with mild left foraminal stenosis. There is facet hypertrophy with mild central canal stenosis. There is no significant right foraminal stenosis. L3-4: There is moderate disc space narrowing and endplate spondylosis. There is a mild disc bulge and facet hypertrophy with mild central canal stenosis. There is mild bilateral foraminal stenosis. L4-5: There is moderate disc space narrowing and [...] visualized paraspinous soft tissue structures. MRI/Spine Lumbar (Routine) IMPRESSION: L4/L5: Moderate right foraminal stenosis. L5/S1: Moderate right foraminal stenosis Electronically Signed: Carlos Pizano MD at 8:39 EDT Tel , Service support , CC: Zuri Gutierrez DO Banquet Chef: Signed THYROID STIM HORMONE Collected: 08/12/2017 Status: F Source: [place] (T[facility]) 1:32 PM [facility] REPOSITORY TYPE CODE TESTS RESULT OUT OF RANGE REFERENCE UNITS LAB L501.9520 0.358-3.74 uIU/mL Normal TSH 2.85 Performed By: #### L501.9520 #### [facility] [address] [place], [place], [address] RE-EVALUATION - PT (1) Observed: 08/11/2017 Status: F Source: [place] 7:13 PM [facility] REPOSITORY [facility] [address] [place] [address]. [address] [place], [place] [address] Fax REEVALUATION / MEDICARE RECERTIFICATION PHYSICAL THERAPY MR#: [id number] Acct: [id number] Name: LUPE ALCOCER Rep #: [id number] : 1945 72 From: Shanon Ferrara MPT Referring DrBrooke: Zuri Gutierrez DO Status: REG RCR Insurance: [employer] PPO SELF PAY INSURANCE Zuri Gutierrez DO, It has been my pleasure to treat LUPE ALCOCER over the last 7 visits for LOW BACK PAIN. Please see the progress note below for an update on the physical therapy plan of care! Subjective: Pt still has back pain. She reports that this is helping. She feels she is one big pain from head to knees with THOMPSON's. Pt is doing her exercises at home. [...] Ext 50% normal ROM, SB B 75% normal ROM ,. FLEXABLITY: hams min tight B ( alittle pain behind the knees with SLR testing). Plan Plan: Try to get 3 additiional visits from insurance to transfer to [facility] program for core stability, Le strength, stretching..... Goals Goal 1:: Independant with HEP. Goal Time Frame: 4-6 Weeks Goal Progress: Goal Met Goal 2:: Patient to be Independant with posture for ADL'S Goal Time Frame: 4-6 Weeks Goal Progress: Progressing Goal 3:: Patient to decrease lumbar pain by 50% or greater to improve function Goal Time Frame: 4-6 Weeks Goal Progress: Progressing Goal 4:: Patient improve lumbar ROM for function of recovery Goal Time Frame: 4-6 Weeks Goal 5:: Patient be able to perform ADL'S and housework tasks with min limiations Goal Time Frame: 4-6 Weeks Goal Progress: Goal Met Anticipated Interventions Patient/Client Instruction: Educate patient on: [...] training, Body mechanics, Postural training, Dynamic Lumbar Stabilization For the Purpose of:: To decrease pain, To increase ROM, To improve muscle performance and motor function, To increase tolerance to activity/condition/position, To improve performance and independence with ADL's, To improve ability of physical actions for home/community/work/leisure, To improve health of tissue, To decrease soft tissue restriction, To improve ability to perform tasks related to life management Please do not hesitate to contact me at [phone] by phone or if you have questions or concerns regarding this new plan of care! Sincerely, Shanon Ferrara <Electronically signed by Shanon Ferrara MPT> 08/11/17 1913 CC: Zuri Gutierrez DO Signed For Medicare only, by signing this I certify the plan of care. Physicians Signature Date ONCOLOGY VISIT REPORT Observed: 07/27/2017 Status: F Source: [place] 11:35 AM [facility] REPOSITORY [facility] [place] [address] OFFICE VISIT Date of Service: 07/27/17 1128 MR#: [id number] Acct: [id number] Name: LUPE ALCOCER Rep #: [id number] : 1945 From: Red Spaulding MD Age/Sex: 72/F Location: D Status: Signed Subjective - Date of Service Date of Service:: 07/27/17 - Chief Complaint F/u for anemia and Neutropenia - History of Present Illness Ms. Lupe Alcocer is a pleasant 72 year old woman with a past medical history for coronary artery disease, arthritis, osteoporosis, KATINA and hypertension who presented with incidental findings of leukopenia and anemia. Subsequently she underwent BMBX 07/31/2014, which showed variable cellular marrow, multiple minute lymphoid aggregates in clot section (polytopic by IHC). She developed an unprovoked PE 06/13/15. Began Xarelto and continues per cardiology for management of paroxysmal atrial fibrillation. She was found to have iron deficiency and started on Iron and orange juice. She comes in for follow up. - Past Medical/Social History Past Medical History Past Medical History: Anemia,COPD,Heart disease,Hyperlipidemia, Hypertension,Pneumonia Other Past Medical History: Cough Pulmonary Embolism Past Surgical History Other Surgical History: Jaw surgery, sinus surgery, foot surgery, hand surgery Mole removed 12-10-15\ skin leison on forehead and left elbow removed pre cancer 12-25-16 Family History Paternal Past Medical History: Unknown Paternal History of Cancer Bone cancer Maternal Past Medical History: Unknown Social History Social History: No changes Smoking Status Former smoker Review of Systems Constitutional:: Denies: Fever, Sweats, Weight loss, Appetite change, Chills Cardiovascular:: Denies: Chest pain, Palpitations, Dyspnea on exertion, Orthopnea, PND, Shortness of breath Respiratory: Denies: Cough, Hemoptysis, Shortness of Breath, Wheezing Gastrointestinal:: Denies: Abdominal pain, Nausea, Vomiting, Diarrhea, Constipation, Hematochezia Genitourinary: Denies: Dysuria, Hematuria, 15, Flank pain Musculoskeletal:: Denies: Back pain, Myalgia, Arthralgia Skin: Denies: Rash, Skin Changes, Wounds Neurological:: Denies: Headache, Dizziness, Visual changes, Tinnitus, Hearing loss Psychiatric: Denies: Anxiety, [...] continue Iron supplements with Vitamin C or [place] juice. RTC 6 months with CBC, CMP, Iron studies. Medications: Prescriptions This Visit Medication Instructions Recorded Meloxicam [Mobic] 15 mg PO DAILY 06/16/16 Rivaroxaban [Xarelto] 20 mg PO DAILY 06/29/16 Primary Care Provider: Zuri Gutierrez DO Referring Provider: - Problem List (1) Iron deficiency Status: Resolved Code Visit Office Visits / Consults: [id number] OV L3 Est 07/27/17 1135 <Electronically signed by Red Spaulding MD> Date Red Spaulding MD Cosigner Signature: Date (if applicable) CC: CBC W/DIFF, AUTOMATED Collected: 07/20/2017 Status: F Source: [place] 8:49 AM [facility] REPOSITORY Order Comment: Reason for Laboratory Test ANEMIA TYPE CODE TESTS RESULT OUT OF RANGE REFERENCE UNITS LAB L100.1000 4.4-11.0 K/mm3 Low WBC 4.2 LAB L100.1200 4.2-5.4 M/mm3 Low RBC 3.77 LAB L100.1300 12.0-15.0 g/dl Low HGB 11.9 LAB L100.1400 37-47 % Normal HCT 37.3 LAB L100.1500 81-99 fL Normal MCV 98.9 LAB L100.1600 27.0-32.0 pg Normal MCH 31.6 LAB L100.1700 32-36 g/gl Low MCHC 31.9 LAB L100.1810 11.6-14.6 % Normal RDW CV 12.4 LAB L100.1820 35.1-43.9 fl High RDW SD 44.0 LAB L100.1900 150-450 K/mm3 Normal PLT 233 LAB L100.2000 6.2-12.0 fl Normal MPV 10.4 LAB L100.2100 47-70 % Normal NEUT% 51.0 LAB L100.2200 19-41 % Normal LY% 35.7 LAB L100.2300 0-10 % Normal MONO% 9.6 LAB L100.2400 0-5 % Normal EO% 2.7 LAB L100.2500 0-1 % Normal BASO% 1.0 LAB L100.2550 0.0-0.9 % Normal IM GRAN % 0.000 Result Comment: IG% - Immature Granulocytes (promyelocytes, myelocytes and metamyelocytes) > 1% indicates that a LEFT SHIFT is Present. LAB L100.2620 2.0-7.7 X10 3/uL Normal Absolute Neut 2.1 LAB L100.2720 0.83-4.51 X10 3/ul Normal Absolute Lymph 1.48 Performed By: #### L100.0100, L500.4050, L503.6150, L503.6550 #### [facility] [address] [place], [address] COMPREHENSIVE METABOLIC Collected: 07/20/2017 Status: F Source: [facility] 8:49 AM [facility] REPOSITORY Order Comment: Reason for Laboratory Test ANEMIA TYPE CODE TESTS RESULT OUT OF RANGE REFERENCE UNITS LAB L501.0100 74-106 mg/dL Normal GLU 85 Result Comment: Please note revised GLUCOSE reference range effective 2017. LAB L501.1000 7-18 mg/dL High BUN 27 LAB L501.1100 0.55-1.02 mg/dL High CREAT,SERUM 1.21 Result Comment: The validity of the calculated GFR AND GFRAA in patients over 70 years has not been determined. Clinical correlation is essential. LAB L501.1110 >60 mL/min Low EST GFR 46 Result Comment: Non- GFR Calc LAB L501.1115 >60 mL/min Low EST GFR - AA 56 Result Comment: GFR Calc LAB L501.1255 ml/min Normal Estimated CRCL 37.82 LAB L501.1300 10-20 RATIO High BUN/CRE 22.3 LAB L501.1500 6.4-8. g/dL Normal 2 T PROT 7.3 LAB L501.1800 3.2-5. g/dL Normal 0 ALB 4.0 LAB L501.1950 2.2-4. g/dL Normal 2 GLOB 3.3 LAB L501.2000 0.9-2. RATIO Normal 4 A/G 1.2 LAB L501.2200 8.5-10 mg/dL Normal .1 CA 9.2 LAB L501.4100 15-37 U/L Normal AST 19 LAB L501.4305 45-117 U/L Normal ALK P 54 LAB L501.4405 13-56 U/L Normal ALT 19 LAB L501.4600 0.20-1 mg/dL Normal .00 T BILI 0.40 LAB L501.5300 136-14 mmol/L Normal 5 NA 143 LAB L501.5600 3.5-5. mmol/L Normal 1 K 4.0 LAB L501.5900 98-107 mmol/L Normal CL 107 LAB L501.6100 21.0-3 mmol/L Normal 2.0 CO2 31.0 LAB L501.6200 5-15 Normal GAP 5 Performed By: #### L100.0100, L500.4050, L503.6150, L503.6550 #### [place] [address] [place], [place], [address] IRON Collected: 07/20/2017 Status: F Source: [place] 8:49 AM [facility] REPOSITORY Order Comment: Reason for Laboratory Test ANEMIA TYPE CODE TESTS RESULT OUT OF RANGE REFERENCE UNITS LAB L503.6150 50-170 ug/dL Normal IRON 55 Performed By: #### L100.0100, L500.4050, L503.6150, L503.6550 #### [facility] [address] [place], [address] FERRITIN Collected: 07/20/2017 Status: F Source: [place] 8:49 AM [facility] REPOSITORY Order Comment: Reason for Laboratory Test ANEMIA TYPE CODE TESTS RESULT OUT OF RANGE REFERENCE UNITS LAB L503.6550 8-252 ng/mL Normal FERRITIN 29 Performed By: #### L100.0100, L500.4050, L503.6150, L503.6550 #### [facility] [address] [place], [address] STRESS REPORT Observed: 07/15/2017 Status: F Source: [place] 1:11 PM [facility] REPOSITORY [facility] Cardiovascular Services [address] [place] [address] MR#: [id number] Acct: [id number] Name: LUPE ALCOCER Rep #: [id number] : 1945 72 From: Mike Cota MD Primary Care: Zuri Gutierrez DO Status: REG CLI Ordering Dr: Sex: F C Stress Test Report Date: 07/15/2017 Procedure: Pharmacologic stress nuclear imaging study Indications: Chest pain Consent: Per the patient Procedure: The patient underwent pharmacologic (Regadenoson) evaluation with a peak heart rate of 90 beats per minute (60 predicted maximal heart rate) and a peak blood pressure of 158/52 mmHg. The baseline ECG demonstrated sinus rhythm; poor R-wave progression; nonspecific ST and T-wave abnormality. The peak pharmacologic ECG demonstrated no obvious ECG changes. There were no cardiac dysrhythmias pretest, during pharmacologic infusion, or recovery. There was no complaint of chest discomfort during pharmacologic infusion or recovery. The examination was discontinued secondary to completion of protocol. Impression: 1. Pharmacologic (Regadenoson) evaluation 2. Peak pharmacologic ECG with no obvious ECG changes. 3. There were no cardiac dysrhythmias pretest, during pharmacologic infusion, or recovery 4. Nuclear images pending Myocardial perfusion imaging study: Technique: The patient was injected with 11.7 millicuries of technetium 99m Cardiolite and subsequently rest SPECT Cardiolite nuclear imaging was obtained in the horizontal long, vertical long, and short axis views. The patient underwent pharmacologic (Regadenoson) evaluation with a peak heart rate of 90 beats per minute (60 % percent predicted maximal heart rate) and a peak blood pressure of 158/52 mmHg. The patient was injected with 3.5 millicuries of technetium 99m Cardiolite and subsequently stress SPECT Cardiolite nuclear imaging was obtained in the horizontal long, vertical long, and short axis views. A gated Cardiolite study at peak stress was obtained. Interpretation: Rest and stress SPECT Cardiolite nuclear imaging status post realignment, normalization, and attenuation correction demonstrate of uniform tracer uptake and myocardial perfusion appearing within normal limits. There is end systolic thickening and brightening. The gated Cardiolite study demonstrates myocardial thickening and inward wall motion. The reported LVEF is 70 %. Impression: 1. Rest and stress SPECT Cardiolite nuclear imaging demonstrate relative uniform tracer uptake and myocardial perfusion appearing within normal limits. 2. The gated Cardiolite study reports an LVEF of 70 %. This note was generated with [employer] software. It may contain incorrect words, spelling, and punctuation that were not noted in checking the note before signing. 07/15/17 1311 <Electronically signed by Mike Cota MD> Date Mike Cota MD CC: Zuri Gutierrez DO; Mike Cota MD Date Dictated: 07/15/17 1307 Date Transcribed: 07/15/17 1307 Banquet Chef: PM Signed INITAL EVALUATION (1) Observed: 07/08/2017 Status: F Source: [place] [facility] 1:32 PM [facility] REPOSITORY [facility] [place], [place] [id number] Fax REHABILITATION SERVICES INITIAL EVALUATION MR#: [id number] Acct: [id number] Name: LUPE ALCOCER Rep #: [id number] : 1945 72 From: Rony Ayala PT, Cert. MDT, OCS Referring Dr.: Zuri Gutierrez DO Status: REG RCR Insurance: [employer] MED[employer]ARE PPO SELF PAY INSURANCE Patient's Visit Information LUPE ALCOCER is a 72 year old F referred to Physical Therapy by Zuri Gutierrez DO with a diagnosis of LOW BACK PAIN. Date of Evaluation: 07/07/17 Physical Therapist: Rony Ayala PT, - Visit Plan Frequency: 2x /Week Duration: 5WEEKS Plan: POSTURAL EX'S,DLS ,MODALTIES - Subjective Subjective: This 72 y/o female presents with physical therapy low back pain for many years. Patient has symmtrical lumbar pain desribed ache. Patient seen DR barajas PT ,did x-rays. Symptoms worse with standing 5min ,walking,bending lifting. Symptoms resting in bed,ice. Patient has TENS unit. Denies parathesia/tingling. Bowel/bladder good. Coughing/sneeezing increase symptoms. Sleeping good at night.Patient has h/o prior treatment PT cervical/lumbar. VOCATION: retired. SOCIAL: - Pain Bilateral Back Pain Intensity (Out of 10): 5 Pain Intensity Range: 10 - Objective POSTURE: mild foward posture,reduce lordosis ,mild thoracic kyphosis. GAIT: reciprocal pattern ,mild foward posture. NEURO:denies parathesia/tingling ,reflexes L3-4,L4-5,L5-S1. PALAPTION: unremarkable. SYMMTRIES : align. MMT: quads/hams 4/5,4-/5,ankle 5/5. LUMBAR ROM: flexion min /mod loss ,mod extension,side glides min loss. FLEXABLITY: hams min tight - Special Tests L/S Slump test left side: Negative L/S Slump test right side: Negative L/S Left Straight Leg Raise: Negative L/S Right Straight Leg Raise: Negative Lumbar Standing: Flexion - Mechanical Response: No effect Lumbar Standing: Flexion - Symptoms During Testing: Increases Lumbar Standing: Flexion - Symptoms After Testing: No worse Lumbar Standing: Extension [...] pain which impairs ROM,strength thus causes impairments with gait ,standing and ADL'S Rehabilitation Potential: Good [...] training, Body mechanics, Postural training, Dynamic Lumbar Stabilization For the Purpose of:: To decrease pain, To increase ROM, To improve muscle performance and motor function, To increase tolerance to activity/condition/position, To improve performance and independence with [...] to be FAXED BACK to us at [phone] for Medicare purposes. Please let me know if there are questions or concerns regarding this plan of care. Physician Signature: Date: <Electronically signed by Rony Ayala PT Cert. FABRIZIO, MELO> 07/08/17 1332 CC: Zuri Gutierrez DO HEMA Signed For Medicare only, by signing this I certify the plan of care. Physicians Signature Date LIVER PROFILE Collected: 07/07/2017 Status: F Source: [place] 9:32 AM [facility] REPOSITORY TYPE CODE TESTS RESULT OUT OF RANGE REFERENCE UNITS LAB L501.1500 6.4-8.2 g/dL Normal T PROT 6.7 LAB L501.1800 3.2-5.0 g/dL Normal ALB 3.7 LAB L501.1950 2.2-4.2 g/dL Normal GLOB 3.0 LAB L501.4100 15-37 U/L Normal AST 19 LAB L501.4305 45-117 U/L Normal ALK P 55 LAB L501.4405 13-56 U/L Normal ALT 14 LAB L501.4600 0.20-1.00 mg/dL Normal T BILI 0.50 LAB L501.4700 0.00-0.30 mg/dL Normal D BILI 0.09 Performed By: #### L500.3400, L500.4100, L501.9520 #### [facility] [address] [place], [address] LIPID PROFILE Collected: 07/07/2017 Status: F Source: [place] 9:32 AM [facility] REPOSITORY TYPE CODE TESTS RESULT OUT OF RANGE REFERENCE UNITS LAB L501.4900 200 mg/dL Normal CHOL 199 Result Comment: <200 mg/dL Desirable 200-240 mg/dL Borderline >240 mg/dL High Risk LAB L501.5000 mg/dL Normal TRIG 92 Result Comment: The drugs N-Acetylcysteine and Metamizole may falsely depress this assay. Serum Triglycerides Reference Interval Normal <150 mg/dL Borderline high 150 - 199 mg/dL High 200 - 499 mg/dL Very High > or = 500 mg/dL LAB L501.6400 mg/dL Normal HDL 80 Result Comment: The drugs N-Acetylcysteine and Metamizole may falsely depress this assay. Reference Range HDL <40 mg/dL Low HDL Cholesterol HDL >or= 60 mg/dL High HDL Cholesterol LAB L501.6500 0-130 mg/dL Normal LDL 101 LAB L501.6600 5-40 mg/dL Normal VLDL 18 Performed By: #### L500.3400, L500.4100, L501.9520 #### [facility] [address] [place], [address] THYROID STIM HORMONE Collected: 07/07/2017 Status: F Source: [place] ([facility]) 9:32 AM [facility] REPOSITORY TYPE CODE TESTS RESULT OUT OF RANGE REFERENCE UNITS LAB L501.9520 0.358-3.74 uIU/mL High TSH 5.71 Performed By: #### L500.3400, L500.4100, L501.9520 #### [place] [facility] [address] [place], [address] CARDIOLOGY VISIT Observed: 07/05/2017 Status: F Source: [place] REPORT 11:23 AM [facility] REPOSITORY [facility] [address] [place] [address] OFFICE VISIT Date of Service: 07/05/17 MR#: [id number] Acct: [id number] Name: LUPE ALCOCER Rep #: [id number] : 1945 Provider: Mike Cota MD Age/Sex: 72/F Location: [facility] Status: Signed HPI HPI Details: LUPE ALCOCER, is a 72 F who presents to the office today for for outpatient cardiovascular follow-up. Since her last visit of 10/02/2016 she states overall she is doing reasonably well. She denies any ongoing palpitations or rapid heart rates. She continues to note episodes of chest discomfort which she states are mainly mid sternal to right sided. They occur sometimes with increased breathing. They do not necessarily associated with nausea, emesis, or diaphoresis. She has denied orthopnea, PND, and peripheral pitting edema. There [...] dysfunction (pseudonormal pattern). Her last stress test from 06/28/2015 is as noted below. CONCLUSION: 1. Normal pharmacologic myocardial perfusion stress test with no evidence of ischemia. 2. Preserved ejection fraction. Her previous diagnostic cardiac catheterization from [facility] [place] from 05/03/2009 is as noted below. ASSESSMENT: 1. Mild to moderate coronary atherosclerosis, non-flow limiting by angiography. 2. Presered left oixs2ibook systolic and diastolic function. CLINICAL CORRELATION: This Is a 64-year-old wtio presents with angina ha1ng atypical features, she has nonflowIlmTting disease hr which aggressiw medical therapy is warranted Including aspirin, beta raisa, DAPHNEY Inhibitor, and statin therapy. 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 EMMA GARCIA, , FACC, FSCAI, FACQI He also has continued laboratory follow-up based upon being on amiodarone therapy. It appears that she has had follow-up hepatic studies earlier this year. Her TSH was from November of last year. She has had PFTs less than a year ago. She is also had a chest CT scan performed less than a year ago. Intake Vital Signs07/05/17 Height 5 ft 5 in 07/05/17 Weight: 149 lb 07/05/17 Body Mass Index (BMI) 24.7 07/05/17 Blood Pressure 152/64 Intake Visit Reasons: 9 M FU Allergies No Known Allergies Allergy (Verified 07/05/17 10:21) Medications Amlodipine [Norvasc] 10 mg PO DAILY 06/20/15 [History Confirmed 07/05/17] Aspirin [Aspirin, Baby] 81 mg PO DAILY@0800 06/20/15 [History Confirmed 07/05/17] Atorvastatin Calcium [Lipitor] 60 mg PO QHS 06/20/15 [History Confirmed 07/05/17] Calcium Carbonate/Vitamin D3 [Calcium 600-Vit D3 400 Caplet] 1 ea PO DAILY 06/20/15 [History Confirmed 07/05/17] Carvedilol [Coreg (Beta Raias)] 12.5 mg PO BID 06/20/15 [History Confirmed 07/05/17] Cholecalciferol (VIT D3) [Vitamin D3] 1,000 unit PO DAILY 06/20/15 [History Confirmed 07/05/17] Dexlansoprazole [Dexilant] 60 mg PO DAILY 06/20/15 [...] 20 mg PO DAILY 06/29/16 [History Confirmed 07/05/17] fluticasone 250 mcg-salmeterol 50 mcg/dose blistr powdr for inhalation 1 inh INHALATION Q12H 06/16/17 [History Confirmed 07/05/17] azelastine 0.15 % (205.5 mcg) nasal spray 205.5 mcg INTRANASAL BID #30 ml 06/21/17 [Rx Confirmed 07/05/17] fluticasone 50 mcg/actuation nasal spray,suspension 1 spray INTRANASAL BID #16 g 06/21/17 [Rx Confirmed 07/05/17] amiodarone 200 mg tablet 200 mg PO QDAY 07/01/17 [History Confirmed 07/05/17] isosorbide dinitrate 30 mg tablet 30 mg PO QDAY tab 07/01/17 [History Confirmed 07/05/17] ascorbic acid (vitamin C) 500 mg capsule 500 mg PO QDAY cap 07/05/17 [History Confirmed 07/05/17] duloxetine 30 mg capsule,delayed release 30 mg PO QDAY 07/05/17 [History Confirmed 07/05/17] ferrous sulfate 325 mg (65 mg iron) tablet 325 mg PO QDAY tab 07/05/17 [History Confirmed 07/05/17] PFSH Medical History Carotid stenosis (Chronic) GERD (gastroesophageal reflux disease) (Chronic) Lung nodule (Chronic) Atherosclerotic heart disease of [place] coronary artery without angina pectoris (Chronic) Moderate persistent asthma (Chronic) Chest pain (Acute) COPD (chronic obstructive pulmonary disease) (Chronic) Paroxysmal atrial fibrillation (Chronic) Hyperlipidemia (Chronic) Iron deficiency (Chronic) Hypertension (Chronic) Fibromyalgia (Chronic) History of pulmonary embolism (Chronic) Surgical History History of foot surgery (Resolved) History of hand surgery (Resolved) History of mandibular surgery (Resolved) History of sinus surgery (Resolved) mole removal (Resolved) Family History Sister Breast cancer Brother [...] blind spots, loss of peripheral vision, transient loss of vision, change in vision, floaters, tunnel vision, other, blurry vision or double vision ENT ENT: Negative for dizziness, headache(s), tongue swelling, lip swelling or balance problems Cardio Chest Pain: Yes Character: other (Heaviness) Onset: at rest Location: mid sternal, right chest Duration: minutes, hours (Up to 30 minutes) Exacerbation: other (Breathing), rest Palpitations: No Edema: None Muscle aches with walking: None Additional Details: Chest pain, mid sternal to right chest, as a heaviness, worsened with breathing but also at rest. She states Dr. Metzger believes it is most likely musculoskeletal. Resp Respiratory: Negative for SOB with activity, SOB at rest, SOB orthopnea\SOB lying down, Cough, Coughing up blood/hemoptysis, chest congestion, pain on inspiration, snoring, stridor, wheezing, crackles, paroxysmal nocturnal dyspnea or other Additional Details: Patient reports constant dry cough GI GI: Negative nausea, vomiting, heartburn, constipation, belching, bloating, cramping, vomiting blood/hematemesis, bright, red blood in stools, black,tarry stools, loose stools, Difficulty Swallowing or other : Negative for hematuria, frequent nighttime urination/ nocturia, erectile dysfunction or abnormal vaginal bleeding Musc Musc: Positive for muscle aches/ myalgia (Chronic back pain / starting therapy.); negative for balance problems, muscle weakness or joint pain Skin Skin: Negative redness, non-healing lesions, unusual bruising, skin ulcer, wounds, jaundice, other or rash Neuro Neuro: Negative for lightheadedness, near syncope, syncope, orthostatic symptoms, confusion, memory loss, restless legs, vertigo, seizures, lack of coordination, other, frequent falls, weakness, blurry vision, double vision, dizziness or headache(s) John Hematologic/Lymphatic: Negative for easy bleeding, easy bruising, enlarged lymph nodes or other Endo Endo: Positive for fatigue; negative for cold intolerance, heat intolerance, excessive sweating, flushing, increased thirst/drinking, increased hunger, hair loss, hair growth or other Psych Psych: Negative for anxiety, depression, thoughts of harming anyone, thoughts of harming yourself, visual hallucinations, panic attacks or audible hallucinations Allergy Allergy/Immunology: Negative for throat swelling, Negative for hives, Negative for tongue swelling, Negative for lip swelling, Negative for rash Cardiology Exam Const Appearance: cooperative, healthy appearing, comfortable and well developed Nutritional Appearance: average body habitus Orientation: alert, awake and oriented x3 Head Head: normal to inspection and normocephalic Ears: hearing grossly normal bilaterally Nose: external nose normal Face and Sinus: face symmetric Mouth: oral mucosae normal Teeth and gingiva: fair dentition Eyes General: appearance normal, both eyes and all related structures Eyelids: eyelids normal Conjunctivae: conjunctivae normal Pupils: PERRL EOM: EOM intact bilaterally Neck Neck: normal visual inspection Carotids: normal carotid upstroke Chest Chest inspection: normal inspection of the chest and symmetric chest movement Auscultation: Bilateral: Clear to Auscultation Cardio Palpation: normal PMI Heart sounds: S1 normal and S2 normal GI GI: normal to inspection, soft, no hepatosplenomegaly and bowel sounds present Neuro General: alert, awake, oriented x3, gait normal and moves all extremities Skin Skin: no rashes or lesions noted Extremities Pulses: Normal: Right Radial Pulse, Left Radial Pulse Lower Extremity Edema: None: Bilateral Psych Psychological: normal affect Assessment AND Plan 1. Paroxysmal atrial fibrillation I48.0 Plan She appears to be remaining in sinus rhythm at this time. This is based upon her follow-up ECG today demonstrating sinus rhythm/sinus bradycardia with a first-degree AV block with no acute ECG changes. She will continue her current medical therapy which has included medications for rate control therapy as well as antiarrhythmic therapy and anticoagulant therapy. Orders Orders: 2. CAD (coronary artery disease) I25.10 Plan She does have a history of [...] fasting lipid/hepatic profile. Orders Orders: 4. Essential hypertension I10 Plan She states her blood pressure [...] She will continue with future outpatient cardiovascular follow- up as well. She will notify the office of any concerns in the interim. In the meantime she will continue to follow with her primary care physician. She will also follow with her washer machine based on her underlying pulmonary disease process [...] CAD (coronary artery disease) I25.10 Coronary Disease-Associated Artery/Lesion type: [place] artery Hyperlipidemia, unspecified hyperlipidemia type E78.5 Hyperlipidemia type: unspecified Essential hypertension I10 Hypertension type: essential hypertension Chest pain, unspecified type R07.9 Chest pain type: unspecified Coding Level of Care Code Off vis,est,level 4 Diagnoses Paroxysmal atrial fibrillation I48.0 CAD (coronary artery disease) I25.10 Coronary Disease-Associated Artery/Lesion type: [place] artery Hyperlipidemia, unspecified hyperlipidemia type E78.5 Hyperlipidemia type: unspecified Essential hypertension I10 Hypertension type: essential hypertension Chest pain, unspecified type R07.9 Chest pain type: unspecified 07/05/17 1123 <Electronically signed by Mike Cota MD> Date Mike Cota MD Cosigner Signature: Date (if applicable) CC: Zuri Gutierrez DO 12 LEAD EKG PERFORMED Observed: 07/05/2017 Status: F Source: [place] [facility] 10:34 AM [facility] REPOSITORY [facility] [address] [facility] [address] [place] [address] 12 Lead EKG performed by [facility] 07/05/17 1033 MR#: [id number] Acct: [id number] Name: LUPE ALCOCER Rep #: [id number] : 1945 72 From: Mike Cota MD Attending Dr: Mike Cota MD Status: DEP AMB Ordering Dr: Mike Cota MD Date: 07/05/17 Location: [facility] Sex: F C Admitted: [facility]/12 Lead EKG performed by [facility] ECG Report Interpretation Sinus Bradycardia -First degree A-V block Poor R wave progressionElectronically signed on 07/05/2017 at 11:45 by Mike Cota 07/05/17 1146 Date Mike Cota MD CC: Zuri Gutierrez DO Date Dictated: 07/05/17 1033 Date Transcribed: 07/05/17 1033 Banquet Chef: PM Signed PULMONARY VISIT REPORT Observed: 06/16/2017 Status: F Source: [place] 5:06 PM [facility] REPOSITORY [facility] [address] [place] [address] OFFICE VISIT Date of Service: 06/16/17 MR#: [id number] Acct: [id number] Name: LUPE ALCOCER Rep #: [id number] : 1945 Provider: Kirsten Padilla Age/Sex: 72/F Location: [facility] Status: Signed Assessment AND Plan 1. Moderate persistent asthma without complication J45.40 Status Chronic Plan Continue Advair. She does not appear to be in exacerbation of her asthma today. No indication for antibiotics or prednisone. Will attempt to control the postnasal drip, therefore controlling her cough. Placing her on Dymista 1 spray each nostril twice daily. She has been encouraged to contact the office after 2 weeks on the medication she has not seen improvement in her symptoms. Otherwise, follow-up with Dr. Metzger in 6 months. 2. Seasonal allergic rhinitis, unspecified trigger J30.2 Status Chronic Plan Plan to step up therapy for the postnasal drip. Otherwise no maintenance medication changes. Follow-up with Dr. Metzger in 6 months. Plan Detail Other Medications New: azelastine-fluticasone 137-50 mcg/spray (Dymista) administer in1 spray Intranasal BID to each nostril Follow Up 6 Months (BWA) HPI 6 M FU: Chief Complaint: Cough HPI Comments Details: This patient presents the office today for a routine follow-up on her moderate persistent asthma and seasonal allergies. She is ambulatory and currently on room air. She [...] her symptoms, rested and overcame the illness without intervention. She continues to use Advair twice daily. She does rinse her mouth out after each use. She denies any medication side effects such as sore throat or thrush. She is using her ipratropium bromide nasal spray, but continues to have [...] PO DAILY 06/20/15 [History Confirmed 06/16/17] Aspirin [Aspirin, Baby] 81 mg PO DAILY@0800 06/20/15 [History Confirmed 06/16/17] Atorvastatin Calcium [Lipitor] 60 mg PO QHS 06/20/15 [History Confirmed 06/16/17] Calcium Carbonate/Vitamin D3 [Calcium 600-Vit D3 400 Caplet] 1 ea PO DAILY 06/20/15 [History Confirmed 06/16/17] Carvedilol [Coreg (Beta Raisa)] 12.5 mg PO BID 06/20/15 [History Confirmed 06/16/17] Cholecalciferol (VIT D3) [Vitamin D3] 1,000 unit PO DAILY 06/20/15 [History Confirmed 06/16/17] Dexlansoprazole [Dexilant] 60 mg PO DAILY 06/20/15 [History Confirmed 06/16/17] Ipratropium [place] 0.06% [ATROVENT NASAL SPRAY] 1 spray NASAL PRN PRN 06/20/15 [History Confirmed 06/16/17] Isosorbide Dinitrate [Isordil] 30 mg PO DAILY 06/20/15 [History Confirmed 06/16/17] Losartan/Hydrochlorothiazide [Hyzaar 100-25 Tablet] 1 tab PO DAILY 06/20/15 [History Confirmed 06/16/17] Montelukast [Singulair] 10 mg PO DAILY 06/20/15 [History Confirmed 06/16/17] Multivitamins,Therapeutic [Multivitamin] 1 tab PO DAILY 06/20/15 [History Confirmed 06/16/17] Opcon-A 1 drp OP PRN PRN 06/20/15 [History Confirmed 06/16/17] Ranitidine [Zantac] 300 mg PO DAILY 06/20/15 [History Confirmed 06/16/17] Vitamin E 1,000 unit PO DAILY 06/20/15 [History Confirmed 06/16/17] Meloxicam [Mobic] 15 mg PO DAILY 06/16/16 [History Confirmed 06/16/17] Amiodarone HCl 200 tab PO DAILY 06/29/16 [History Confirmed 06/16/17] Rivaroxaban [Xarelto] 20 mg PO DAILY 06/29/16 [History Confirmed 06/16/17] azelastine-fluticasone 137 mcg-50 mcg/spray nasal spray 1 spray INTRANASAL BID #23 g 06/16/17 [Rx Confirmed 06/16/17] fluticasone 250 mcg-salmeterol 50 mcg/dose blistr powdr for inhalation 1 inh INHALATION Q12H 06/16/17 [History Confirmed 06/16/17] PFSH Medical History MOLE REMOVAL (Acute) Lung nodule (Chronic) Chronic cough (Chronic) Chest discomfort (Chronic) History of pulmonary embolism (Resolved) BMI 26.0-26.9,adult (Chronic) Atherosclerotic heart disease of [place] coronary artery without angina pectoris (Chronic) Moderate persistent asthma (Chronic) Seasonal allergies (Chronic) Pneumonia (Suspected) CAD (coronary artery disease) (Chronic) Chest pain (Acute) Pulmonary embolism on right (Chronic) COPD (chronic obstructive pulmonary disease) (Chronic) Paroxysmal atrial fibrillation (Chronic) Hyperlipidemia (Chronic) Iron deficiency (Chronic) Neutropenia (Resolved) Anemia (Resolved) Hypertension (Chronic) Surgical History History of mandibular surgery (Resolved) History of sinus surgery (Resolved) H/O foot surgery (Resolved) H/O hand surgery (Resolved) Family History Sister Breast cancer Brother Heart disease Sister Diabetes Social History Smoking Status: Former smoker second hand exposure: No alcohol intake: never substance use type: does not use Review of Systems Const CONSTITUTIONAL: Positive fatigue; negative anorexia, body ache, chills, daytime sleepiness, fever(s), night sweats, oral thrush, stops breathing during sleep, weight loss, sleeping in chair, weight loss, weight gain, frequent colds, seasonal allergies, other, headache(s) or orthopnea EETM Ear Nose Throat Mouth: Positive hearing normal, nasal discharge and post nasal drip; negative hard of hearing, hoarseness, dry mouth in morning, change in vision, itchy eyes, eye pain, swallowing Difficulty, ear pain, nose bleed, headache(s), mouth pain, nasal congestion, sinus pain, sinus pressure, sore throat or other Cardio Cardiovascular: Negative chest pain, chest pain at rest, chest pain with activity, irregular heart rhythm, edema, shortness of breath when lying down, palpitations, murmur or other Resp Respiratory: Positive as per HPI, shortness of breath and cough cough: Positive non-productive; negative pain with cough, wheezing, chest congestion, chest tightness, pain on inspiration, inhalers, increase use of rescue inhalers, snoring, apnea or other Gastro Gastrointestional: Negative bloody stools, change in appetite, difficulty swallowing, [...] good hygiene Head Head: Positive normocephalic and atraumatic; negative cyanosis of lips/distal nose Eyes Eye: Positive clear conjunctiva and nystagmus; negative scleral abnormality Ears Ear: Positive hearing normal and external ears normal; negative hard of hearing Nose Nose: Positive external nose normal and no nasal discharge; negative epistaxis Mouth Mouth: Positive post nasal drip, oral mucosae normal, no lesions, good dentition and posterior oropharynx is adequate; negative malodorous breath or oral thrush present Mallampati Score: I: Mallampati Score Neck Neck: Positive normal visual inspection, full ROM and trachea midline; negative lymphadenopathy, JVD or tender Chest Wall Chest: Positive normal inspection of the chest and symmetric chest movement; negative increased A/P diameter Resp lung sounds: Positive clear to auscultation, good air exchange, normal expiratory time and normal respiratory effort; negative wheezes, wheeze present on forced exhalation, rhonchi, rales or dullness to percussion Cardio Cardiac: Positive regular rate, regular rhythm, S1 normal and S2 normal; negative murmur GI GI: Positive normal to inspection and normal bowel sounds; negative distended Genitourinary: Positive deferred Musc Musculoskeletal: Positive steady gait and ROM normal; negative kyphosis or scoliosis Skin Pulmonary Skin Exam: Positive intact; negative rash, lesion, ulcers, erythema or scaly Pulses Pulse: Yes pulses normal x4 extremities Extremities Extremities: No edema, Yes capillary refill normal, No clubbing, No cyanosis, No stasis dermatitis Neuro Neurologic: Yes conversant, Yes no focal neuro deficits, Yes cooperative, Yes normal cognition, Yes normal coordination, Yes normal concentration, Yes understands questions Lymph Lymphatic: No lymphadenopathy, No tenderness, No cervical adenopathy, No axillary adenopathy Psych Appearance: Positive grossly normal, eye contact and well kempt Mental Status: Positive mental status grossly normal Mood: Positive congruent mood Affect: Positive normal affect Coding Level of Care Code Off vis,est,level 4 Diagnoses Moderate persistent asthma without complication J45.40 Asthma complication type: uncomplicated Seasonal allergic rhinitis, unspecified trigger J30.2 Allergic rhinitis trigger: unspecified 06/16/17 1706 <Electronically signed by Kirsten YEPEZC> Date Kirsten YEPEZC Cosigner Signature: Date (if applicable) CC: Zuri Gutierrez DO L/S SPINE MIN 4 Observed: 06/09/2017 Status: F Source: [place] VIEWS 11:53 AM [facility] REPOSITORY [facility] Imaging Services [address] [place] [address] L/S Spine Min 4 Views MR#: [id number] Acct: [id number] Name: LUPE ALCOCER Rep #: [id number] : 1945 F 72 From: Brennan Mike DO PCP: Zuri Gutierrez DO Status: REG CLI Study: L/S Spine Min 4 Views Date of Exam: 06/09/17 Exam# [id number] Ordering Dr: Zuri Gutierrez DO STUDY: X-RAY - LUMBAR SPINE REASON FOR EXAM: Female, 72 years old. Chronic pain. TECHNIQUE: 5 view(s) of the lumbar spine were obtained. COMPARISON: Thoracic spine, June 09, 2017. FINDINGS: Normal lumbar lordosis. There is slight reversal of lumbar lordosis. There is a normal alignment of the vertebrae. There is multilevel endplate spondylosis of the lumbar vertebrae. There is multi-level degenerative disc disease with multi-level disc space narrowing. There is no evidence of acute fracture or loss of vertebral axial height. There is no demonstrated spondylolysis of the pars interarticulares. There is atherosclerotic calcification of the abdominal aorta without a demonstrated aneurysm. RAD/L/S Spine Min 4 Views IMPRESSION: Degenerative changes of the cervical spine without acute fracture or subluxation. Electronically Signed: Brennan MikeDO at 16:29 EDT Tel [phone], Service support , CC: Zuri Gutierrez DO Banquet Chef: Signed THORACIC SPINE 3 Observed: 06/09/2017 Status: F Source: [place] VIEWS 11:53 AM [facility] REPOSITORY [facility] Imaging Services [address] [place] [address] Thoracic Spine 3 Views MR#: [id number] Acct: [id number] Name: LUPE ALCOCER Rep #: [id number] : 1945 F 72 From: Jose Antonio Jensen PCP: Zuri Gutierrez DO Status: REG CLI Study: Thoracic Spine 3 Views Date of Exam: 06/09/17 Exam# [id number] Ordering Dr: Zuri Gutierrez DO STUDY: X-RAY - THORACIC SPINE REASON FOR EXAM: Female, 72 years old. Chronic pain TECHNIQUE: 2 view(s) of the thoracic spine were obtained. COMPARISON: None. FINDINGS: Normal kyphosis of the thoracic spine. There is no substantial scoliosis. Normal thoracic vertebrae and endplates. Normal disc space heights. The soft tissue structures are unremarkable. RAD/Thoracic Spine 3 Views IMPRESSION: Normal x-ray examination of the thoracic spine. Electronically Signed: Jose Antonio Jensen DO at 0:00 EDT , Service support , CC: Zuri Gutierrez DO Banquet Chef: Signed BRAIN W/WO CONTRAST Observed: 04/19/2017 Status: F Source: [place] 1:34 PM [facility] REPOSITORY [facility] Imaging Services [address] [place] [address] Brain W/WO Contrast MR#: [id number] Acct: [id number] Name: LUPE ALCOCER Rep #: [id number] : 1945 F 72 From: Steven Ratliff MD PCP: Zuri Gutierrez DO Status: REG CLI Study: Brain W/WO Contrast Date of Exam: 04/19/17 Exam# [id number] Ordering Dr: Zuri Gutierrez DO STUDY: MRI BRAIN WITH AND WITHOUT CONTRAST REASON FOR EXAM: Female, 72 years old. Chronic headaches TECHNIQUE: Standardized multiplanar fat and water weighted pulse sequences were obtained. 7 ml of Gadavist contrast material was administered intravenously for the contrast portion of the examination. COMPARISON: CT of the brain on April 17, 2014 FINDINGS: Mild atrophy and periventricular white matter ischemic changes without mass effect [...] Normal basal cisterns. Normal bilateral temporal bones. Normal bilateral internal auditory canals. There are postsurgical changes of the orbits.. There is mild mucosal thickening in the maxillary and ethmoid sinuses.. There are postsurgical changes involving the right maxillary antrum Normal calvarium and skull base. Normal visualized soft tissue structures. Normal visualized upper cervical spine. MRI/Brain W/WO Contrast IMPRESSION: Atrophy and periventricular white matter ischemic changes without evidence for acute infarct. No evidence for obstructive hydrocephalus mass or acute bleed. Bilateral maxillary and ethmoid sinus disease Electronically Signed: Steven Ratliff MD at 22:17 EST , Service support , CC: Zuri Gutierrez DO Banquet Chef: Signed CBC W/DIFF, AUTOMATED Collected: 03/26/2017 Status: F Source: [place] 11:14 AM [facility] REPOSITORY Order Comment: Reason for Laboratory Test . TYPE CODE TESTS RESULT OUT OF RANGE REFERENCE UNITS LAB L100.1000 4.4-11.0 K/mm3 Normal WBC 5.1 LAB L100.1200 4.2-5.4 M/mm3 Low RBC 3.96 LAB L100.1300 12.0-15.0 g/dl Normal HGB 12.3 LAB L100.1400 37-47 % Normal HCT 38.5 LAB L100.1500 81-99 fL Normal MCV 97.2 LAB L100.1600 27.0-32.0 pg Normal MCH 31.1 LAB L100.1700 32-36 g/gl Low MCHC 31.9 LAB L100.1810 11.6-14.6 % Normal RDW CV 13.1 LAB L100.1820 35.1-43.9 fl High RDW SD 45.2 LAB L100.1900 150-450 K/mm3 Normal PLT 248 LAB L100.2000 6.2-12.0 fl Normal MPV 11.3 LAB L100.2100 47-70 % Normal NEUT% 68.9 LAB L100.2200 19-41 % Low LY% 17.9 LAB L100.2300 0-10 % High MONO% 11.0 LAB L100.2400 0-5 % Normal EO% 1.4 LAB L100.2500 0-1 % Normal BASO% 0.8 LAB L100.2550 0.0-0.9 % Normal IM GRAN % 0.000 Result Comment: IG% - Immature Granulocytes (promyelocytes, myelocytes and metamyelocytes) > 1% indicates that a LEFT SHIFT is Present. LAB L100.2620 2.0-7.7 X10 3/uL Normal Absolute Neut 3.5 LAB L100.2720 0.83-4.51 X10 3/ul Normal Absolute Lymph 0.91 Performed By: #### L100.0100, L500.4050, L503.6030, L503.6550, L506.0250 #### [facility] [address] [place], [address] COMPREHENSIVE METABOLIC Collected: 03/26/2017 Status: F Source: [place] 11:14 AM [facility] REPOSITORY Order Comment: Reason for Laboratory Test . Is Patient Taking Vitamins or Folic Acid Supplements? N TYPE CODE TESTS RESULT OUT OF RANGE REFERENCE UNITS LAB L501.0100 70-110 mg/dL Normal GLU 100 LAB L501.1000 7-18 mg/dL High BUN 31 LAB L501.1100 0.55-1.02 mg/dL High 1.33 CREAT,SERUM Result Comment: The validity of the calculated GFR AND GFRAA in patients over 70 years has not been determined. Clinical correlation is essential. LAB L501.1110 >60 mL/min Low EST GFR 42 Result Comment: Non- GFR Calc LAB L501.1115 >60 mL/min Low EST GFR - AA 50 Result Comment: GFR Calc LAB L501.1255 ml/min Normal Estimated CRCL 34.40 LAB L501.1300 10-20 RATIO High BUN/CRE 23.3 LAB L501.1500 6.4-8. g/dL Normal 2 T PROT 7.5 LAB L501.1800 3.4-5. g/dL Normal 0 ALB 4.1 Result Comment: Please note revised Albumin AND Globulin reference range effective 2017. LAB L501.1950 2.2-4.2 g/dL Normal GLOB 3.4 LAB L501.2000 0.9-2.4 RATIO Normal A/G 1.2 LAB L501.2200 8.5-10.1 mg/dL Normal CA 9.3 LAB L501.4100 15-37 U/L Normal AST 28 LAB L501.4305 45-117 U/L Normal ALK P 56 LAB L501.4405 12-78 U/L Normal ALT 28 LAB L501.4600 0.20-1.00 mg/dL Normal T BILI 0.40 LAB L501.5300 136-145 mmol/L Normal NA 142 LAB L501.5600 3.5-5.1 mmol/L Normal K 3.5 LAB L501.5900 98-107 mmol/L Normal CL 105 LAB L501.6100 21.0-32.0 mmol/L Normal CO2 30.0 LAB L501.6200 5-15 Normal GAP 7 Performed By: #### L100.0100, L500.4050, L503.6030, L503.6550, L506.0250 #### [facility] [address] [place], [address] IRON+IRON BINDING Collected: 03/26/2017 Status: F Source: [facility] 11:14 AM [facility] REPOSITORY Order Comment: Reason for Laboratory Test . Is Patient Taking Vitamins or Folic Acid Supplements? N TYPE CODE TESTS RESULT OUT OF RANGE REFERENCE UNITS LAB L503.6075 250-450 ug/dL TIBC Normal 335 LAB L503.6150 50-170 ug/dL Low IRON 36 LAB L503.6250 15.0-55.0 % Low IRON SATURATION 10.7 Performed By: #### L100.0100, L500.4050, L503.6030, L503.6550, L506.0250 #### [facility] [address] [place], [place], [address] FERRITIN Collected: 03/26/2017 Status: F Source: [place] 11:14 AM [facility] REPOSITORY Order Comment: Reason for Laboratory Test . Is Patient Taking Vitamins or Folic Acid Supplements? N TYPE CODE TESTS RESULT OUT OF RANGE REFERENCE UNITS LAB L503.6550 8-252 ng/mL Normal FERRITIN 42 Performed By: #### L100.0100, L500.4050, L503.6030, L503.6550, L506.0250 #### [facility] [address] [place], [address] FOLATES, (FOLIC ACID) Collected: 03/26/2017 Status: F Source: [place] 11:14 AM [facility] REPOSITORY Order Comment: Reason for Laboratory Test . Is Patient Taking Vitamins or Folic Acid Supplements? N TYPE CODE TESTS RESULT OUT OF REFERENCE UNITS RANGE LAB L506.0250 3.1-55.4 ng/mL High FOLATES 82.80 Result Comment: Please note revised Folates reference range effective 2017. Performed By: #### L100.0100, L500.4050, L503.6030, L503.6550, L506.0250 #### [facility] [address] [place], [address] VITAMIN B12 Collected: 03/26/2017 Status: F Source: [place] 11:14 AM [facility] REPOSITORY Order Comment: Reason for Laboratory Test . TYPE CODE TESTS RESULT OUT OF REFERENCE UNITS RANGE LAB L503.0105 211-911 pg/mL High Vitamin B12 > 2000 Performed By: #### L503.0105 #### [facility] [address], [address] ALLERGIES ALLERGIES DATE TYPE / CODE NAME / CODE REACTION SEVERITY SOURCE 01/25/[address] [facility] Allergy/4160 Allergies/F00 Hospital 14202(SNOMED 5396679(RXNOR Repository CT) M) ENCOUNTERS ENCOUNTERS ADMIT/DISCHARGE ACCOUNT NUMBER ADMITTING ENCOUNTER LOCATION SOURCE CLASS 02/22/2018 [id number] Ambulatory Building:[facility] [place] Practices Repository 02/16/2018 [id number] Ambulatory [facility] ding:LAB Repository 01/27/2018 [id number] Ambulatory [facility] ding:ONC Repository 01/25/2018 [id number] Ambulatory BMSBuilding: [place] BMS.CF.O [facility] Repository 12/23/2017 [id number] Ambulatory [facility] ding:RAD Repository 12/10/2017 [id number] Ambulatory [facility] ding:CVS Repository 11/30/2017/12/01/19 [id number] Ambulatory BMSBuilding: [place] 18 BMS.PMW [facility] Repository 11/10/2017 [id number] Ambulatory [facility] ding:LAB Repository 09/16/2017/09/17/19 [id number] Ambulatory BBuilding:ZZ Bell [address] [place] [address] Repository 08/25/2017 [id number] Ambulatory [facility] ding:MRI Repository 08/20/2017/08/21/19 [id number] Ambulatory [address] ding:PT Repository 08/12/2017 [id number] Ambulatory [facility] ding:LAB Repository 07/27/2017 [id number] Ambulatory BMSBuilding: [place] BMS.CF.Critical access hospital Repository 07/15/2017 [id number] Ambulatory [facility] ding:CVS Repository 07/15/2017 [id number] Ambulatory BMSBuilding: [place] [facility] Repository 07/07/2017 [id number] Ambulatory [facility] ding:LAB Repository 07/05/2017/07/06/19 [id number] Ambulatory BMSBuilding: [place] [address] Repository 06/16/2017/06/17/19 [id number] Ambulatory BMSBuilding: [place] 18 [facility] [place] 06/09/2017 [id number] Ambulatory [facility] ding:HPRAD Repository 04/19/2017 [id number] Ambulatory [facility] ding:MRI Repository 03/29/2017 [id number] Ambulatory BMSBuilding: [place] BMS.Critical access hospital Repository FUNCTIONAL STATUS FUNCTIONAL STATUS No Functional Status Records FoundEQUIPMENT EQUIPMENT No Equipment Records FoundPAYERS PAYERS ENCOUNTER GUARANTOR PAYER SUBSCRIBER SOURCE 02/22/2018 [place] Practices MCALDOB: Insurance:Carlock/Sply[employer] IncALDOB: Repository [id number] care Adv planPolicy [id number], Number: [address], [place] [address]Gyw: [id number] [place] [address]Hrs: Date:8977-80-43Xlxu ()Tel: (357) Name:LARA Delaney ) [phone] () 113070[place], [place] [id number]: 02/22/2018 Secondary [place] Practices Insurance:Carlock/Splyst KEALDOB: Repository care Adv planPolicy [id number] Number: [address], [id number] [place] [address]Oia: Date: - ~(3 [id number] 30 (HP) Name[facility] [address] [place] [address] [id number]: 02/16/2018 [place] Primary [address] [id number] DEL Insurance:ERIN GIRONALFREDOOB: [place] PPOPolicy [id number] [address]Nag: ([phone]) Number: Repository () [id number] Date:0041-08-84YT [address] [place] [address]NS: 02/16/2018 Secondary NOT GIVENUNK [place] Insurance:SELF PAY [facility] Number: Effective Repository Date:2018-02-16 01/27/2018 [place] Primary [address] [id number] DEL Insurance:ERIN LOUISOB: [place] PPOPolicy [id number] [facility] [address]Acp: (713) Number: Repository () [id number] Date:7045-56-31GQ[address] [address]PM: 01/27/2018 Secondary NOT GIVENUNK [place] Insurance:SELF PAY [facility] Number: Effective Repository Date:2016-06-08 01/25/2018 [place] Primary [address]AN[address]Catalina [address] [id number] DEL Insurance:ERIN MORALESSIERRAOB: [place] PPOPolicy [id number] Hospital 5[address]Nwx: (657) Number: Repository () [id number] Date:1251-14-04YX [address] [place] [address] 258[address]FJ: 01/25/2018 Secondary NOT GIVENUNK [place] Insurance:SELF PAY [facility] Number: Effective Repository Date:2018-01-25 12/23/2017 [place] Primary [place] [id number] DEL Insurance:ERIN LOUISOB: [place] MEDICARE OPolicy [id number] Hospital [address]Bid: (330) Number: Repository [phone] () [id number] Date:7493-74-67YQ [address] [place] [address] 78419QY: 12/23/2017 Secondary NOT GIVENUNK [place] Insurance:SELF PAY [facility] Number: Effective Repository Date:2017-12-23 12/10/2017 [place] Primary [place] [id number] DEL Insurance:ERIN MAYRE: [place] [facility]ICARE [facility] [id number] [address]Csd: (330) Number: Repository [phone] () [id number] Date:7523-71-23DW [address] [place] [address] 87392KX: 12/10/2017 Secondary NOT GIVENUNK [place] Insurance:SELF PAY [facility] Number: Effective Repository Date:2017-11-17 11/30/2017 [place] Primary IANTTA [place] [id number] DEL Insurance:ERIN MAYER: [place] [facility] [id number] [facility] 390[address]Hey: (330) Number: Repository [phone] () [id number] Date:0404-57-00HS [address] [place] [address] 59662NR: 11/30/2017 Secondary NOT GIVENUNK [place] Insurance:SELF PAY [facility] Number: Effective Repository Date:2017-11-19 11/10/2017 [place] Primary [place] [id number] DEL Insurance:ERIN MAYER: [place] [facility] [id number] [facility] [address]Tqv: (330) Number: Repository [phone] () [id number] Date:2210-26-03PP [address] [place] [address] 01394EJ: 11/10/2017 Secondary NOT GIVENUNK [place] Insurance:SELF PAY [facility] Number: Effective Repository Date:2017-11-10 09/16/2017 [facility]UNC [facility] - ValdeseJOVANNAALDOB: Insurance:ERIN MORALESALDOB: [facility] [id number] [facility] [id number] Repository [place], Number: [address] [place], [place] [address]Row: [id number] [place] [address]Ize: Date:2017-03-22 - (HP)Tel: [phone] (HP) (WP) Name:[phone] () [address] [place] [address]VI: 08/25/2017 [id number] Insurance:ERIN ALFREDOOB: [facility] [place] MEDICARE [facility] [id number] Hospital [address]Blj: (330) Number: Repository () [id number] Date:8634-76-16SO [address] [place] [address] 66[address]TN: 08/25/2017 Secondary NOT GIVENUNK [place] Insurance:SELF PAY [facility] Number: Effective Repository Date:2017-08-13 08/20/2017 [id number] [place] Insurance:ANTHEM ALFREDOOB: [facility] [place] MEDICARE [facility] [id number] Hospital 103[address]Pep: Number: Repository [phone] [id number] (HP) Date:2722-89-97PI [address] [place] [address] 81886GD: 08/20/2017 Secondary NOT GIVENUNK [place] Insurance:SELF PAY [facility] Number: Effective Repository Date:2017-07-05 08/12/2017 [place] Primary [address] [place] [id number] DEL Insurance:ERIN LOUISOB: [place] PPOPolicy [id number] Hospital [address]94[address]Tlw: Number: Repository [phone] [id number] (HP) Date:5741-06-23ZP [address] [place] [address] 42[address]AE: 08/12/2017 Secondary NOT GIVENUNK [place] Insurance:SELF PAY [facility] Number: Effective Repository Date:2017-08-12 07/27/2017 [place] Primary [address] [id number] DEL Insurance:ERIN LOUISOB: [place] PPOPolicy [id number] Hospital [address]Rrg: Number: Repository [phone] [id number] (HP) Date:0619-99-37[address]SSNULJQ, [place] [address]MS: 07/27/2017 Secondary NOT GIVENUNK [place] Insurance:SELF PAY [facility] Number: Effective Repository Date:2017-07-27 07/15/2017 [facility] [address] [place] [id number] DEL Insurance:ERIN LOUISOB: [place] PPOPolicy [id number] [place] [id number]: Number: Repository [phone] [id number] (HP) Date:3103-84-34KM [address]AGCVR, [place] [address]SJ: 07/15/2017 Secondary NOT GIVENUNK [place] Insurance:SELF PAY [facility] Number: Effective Repository Date:2017-07-05 07/15/2017 [place] Primary [address] [place] [id number] DEL Insurance:ERIN LOUISOB: [place] PPOPolicy [id number] Hospital [address]Cux: Number: Repository [phone] [id number] (HP) Date:9521-62-97HF [address]KEZ[address], [place] [address]FQ: 07/15/2017 Secondary NOT GIVENUNK [place] Insurance:SELF PAY [facility] Number: Effective Repository Date:2017-07-15 07/07/2017 [place] Primary [address] [place] [id number] DEL Insurance:ERIN LOUISOB: [place] PPOPolicy [id number] Hospital [address]Uuw: Number: Repository [phone] [id number] (HP) Date:0309-14-23ES [address]UGWHWXF, [place] [address]IT: 07/07/2017 Secondary NOT GIVENUNK [place] Insurance:SELF PAY [facility] Number: Effective Repository Date:2017-07-07 07/05/2017 [place] Primary [address]PE [address] [id number] DEL Insurance:ERIN LOUISOB: [place] PPOPolicy [id number] Hospital [address]Rlj: Number: Repository [phone] [id number] (HP) Date:2275-08-28UY [address]FWUNBZJ, [place] [address]LO: 07/05/2017 Secondary NOT GIVENUNK [place] Insurance:SELF PAY [facility] Number: Effective Repository Date:2017-07-05 06/16/2017 [place] Primary IANTTCatalina Harding [id number] DEL Insurance:ERIN MAYER: [place] PPOPolicy [id number] Hospital [address]Fmu: Number: Repository [phone] [id number] (HP) Date:1609-02-77GI [address]MGTHR, [place] [address]FD: 06/16/2017 Secondary NOT GIVENUNK [place] Insurance:SELF PAY [facility] Number: Effective Repository Date:2017-03-01 06/09/2017 [place] Primary [place]pe [place] [id number] Del Insurance:ERIN LouisOB: [place] [facility] [id number] [place] [id number]: Number: Repository [phone] [id number] (HP) Date:8777-31-56VQ [address] [place] [address] 916[address]FA: 06/09/2017 Secondary NOT GIVENUNK [place] Insurance:SELF PAY [facility] Number: Effective Repository Date:2017-06-09 04/19/2017 [place] Primary [place]pe [place] [id number] Del Insurance:ERIN LouisOB: [place] PPOPolicy [id number] [place]ille [id number]: Number: Repository [phone] [id number] (HP) Date:3932-59-06OE [address] [place] [address] [place] [address]JQ: 04/19/2017 Secondary NOT GIVENUNK [place] Insurance:SELF PAY [facility] Number: Effective Repository Date:2017-04-13 03/29/2017 [place] Primary [place]pe [place] [id number] Del Insurance:ERIN Mayer: [place] PPOPolicy [id number] [place] [id number]: Number: Repository [phone] [id number] (HP) Date:3246-98-09FA [address]DYXIQQE [place] [address]PB: 03/29/2017 Secondary NOT GIVENUNK [place] Insurance:SELF PAY [facility] Number: Effective Repository Date:2017-03-29 SOCIAL HISTORY SOCIAL HISTORY No Social History Records FoundFAMILY HISTORY FAMILY HISTORY No Family History Records FoundADVANCE DIRECTIVES ADVANCE DIRECTIVES No Advanced Directives Records FoundINFORMATION SOURCE INFORMATION SOURCE DATE CREATED AUTHOR AUTHOR'S ORGANIZATION 03/09/2018 OHIP
== END ==
PROVIDERS: Family Provider Internal Medicine; PCP Internal Medicine; Referring Provider Internal Medicine; Visit Provider Internal Medicine
DX: E78.49 Other hyperlipidemia (principal); R73.09 Other abnormal glucose; R94.6 Abnormal results of thyroid function studies
CPT/HCPCS: 36415; 80053; 80061; 83036; 84443; 85025

== ENCOUNTER → 2018-06-07 12:39 | Outpatient (CLI) | payer MEDICARE, SELFPAY ==
--- NOTE | 2018-06-07 13:00 | MRI_ITS ---
HISTORY: dizziness, H/As, forgetfulness TECHNIQUE: Multiplanar and multisequence MR images of the brain were obtained without gadolinium. IV Contrast dosage and agent: None. COMPARISON: 04/19/17 MRI brain. FINDINGS: # of images incl. paperwork: 286 PARANASAL SINUSES AND MASTOID AIR CELLS: Chronic postoperative changes status post bilateral maxillary medial antrostomy, partial ethmoidectomy, and right middle and inferior turbinate resection. No acute findings. CALVARIUM: Unremarkable. INTRACRANIAL HEMORRHAGE: No evidence of intracranial hemorrhage. BRAIN PARENCHYMA: No acute infarct. Cerebrum, cerebellum and brainstem are unremarkable. Normal sella turcica, pituitary gland, infundibular stalk, optic chiasm and hypothalamus. The internal auditory canals are patent. No mass effect or midline shift. Central and cortical involutional changes are noted. There is increased T2 and FLAIR signal abnormality in the periventricular white matter. CSF SPACES: Appropriate for age. There is no hydrocephalus. Patent basal cisterns. VASCULAR SYSTEM: Normal flow voids in the major intracranial circulation. ORBITS: Both globes, extraocular muscles, optic nerves and retrobulbar fat appear unremarkable. MRI/Brain without Contrast IMPRESSION: Chronic involutional and white matter changes. No acute intracranial process. at 0511 Reported and signed by: Vicente Muñoz MD Electronically Signed: Vicente Muñoz, at 5:10 EDT Tel , Service support ,
== END ==
PROVIDERS: Family Provider Internal Medicine; PCP Internal Medicine; Referring Provider Internal Medicine; Visit Provider Internal Medicine
DX: R42 Dizziness and giddiness (principal)
CPT/HCPCS: 70551

== ENCOUNTER → 2018-06-30 07:26 | Outpatient (CLI) | payer MEDICARE, SELFPAY ==
[2018-01-25 11:19] VITALS: BMI 25.0
--- NOTE | 2018-07-01 11:17 | PFT ---
INTRODUCTION: The patient is a 73-year-old female that presents for pulmonary function studies secondary to a diagnosis of dyspnea. Respiratory therapy reports that the patient had a dry cough continuously throughout testing. Bronchodilators were used during testing. INTERPRETATION: Forced expiration spirometry demonstrates the presence of a mild large airways obstructive ventilatory defect with a postbronchodilator FEV1/FVC of 65% of predicted. There was a significant response to aerosolized bronchodilators noted, based upon change in FVC. Spirograms are of fair quality and plateau normally. Body plethysmography was performed and reveals lung volumes to be within normal limits. Diffusing capacity by single breath CO is also within normal limits. IMPRESSION: Partially reversible mild large airways obstructive ventilatory defect with preserved lung volumes and diffusing capacity.
== END ==
PROVIDERS: Family Provider Internal Medicine; PCP Internal Medicine; Referring Provider Internal Medicine Critical Care Medicine; Visit Provider Internal Medicine Critical Care Medicine
DX: J45.40 Moderate persistent asthma, uncomplicated (principal)
CPT/HCPCS: 94060; 94726; 94729

== ENCOUNTER → 2018-08-23 09:29 | Outpatient (CLI) | payer MEDICARE, SELFPAY ==
[2018-07-01 15:06] VITALS: BMI 24.3
--- NOTE | 2018-08-23 09:37 | CT_ITS ---
STUDY: CT BRAIN WITHOUT CONTRAST REASON FOR EXAM: Female, 73 years old. Head injury due to a fall. RADIATION DOSAGE (If Supplied By Facility): CTDIvol = ( 44.99 ) mGy, DLP = ( 779.24 ) mGycm TECHNIQUE: Transaxial CT imaging of the brain was performed without administration of intravenous contrast material. Individualized dose optimization techniques were used for this CT. COMPARISON: Comparison is made with prior study dated April 17, 2014. FINDINGS: Normal soft tissue structures. Normal calvarium. There is mild cerebral atrophy with widening of the extra-axial spaces and ventricular dilatation. There are areas of decreased attenuation within the white matter tracts of the supratentorial brain, consistent with microvascular disease changes. Normal basal ganglia and thalami. Normal brainstem. Normal cerebellum. There is no intracranial hemorrhage. There are no findings of an acute ischemic infarction. Atherosclerotic calcification of the vertebral arteries and cavernous portions of the internal carotid arteries bilaterally. Prior surgery involving the ethmoid sinuses. CT/Brain/Head without Contrast IMPRESSION: Chronic involutional changes of the brain. Electronically Signed: Johnny Gilman, at 10:29 EDT , Service support ,
[2018-08-23 09:47] LABS: Absolute Lymphocyte Count 1.07 X10^3/ul (0.83-4.51); Absolute Neutrophil Count 2.1 X10^3/uL (2.0-7.7); Basophil# 0.03 X10^3/uL; Basophil% 0.8 % (0-1); Eosinophil# 0.06 X10^3/uL; Eosinophils% 1.6 % (0-5); Hematocrit 31.7 % (37-47); Hemoglobin 10.3 g/dl (12.0-15.0); Lymphocyte # 1.07 X10^3/ul (4.0); Lymphocyte % 28.6 % (19-41); Mean Corp Hgb Conc 32.5 g/gl (32-36); Mean Corpuscular Volume 95.5 fL (81-99); Mean Platelet Vol. 9.8 fl (6.2-12.0); Monocyte# 0.46 X10^3/uL; Monocyte% 12.3 % (0-10); Neutrophil # 2.12 X10^3/uL (2.7-7.7); Neutrophil % 56.7 % (47-70); POSITIVE COUNT NO; POSITIVE DIFFERENTIAL NO; POSITIVE MORPHOLOGY NO; Platelet Count 267 K/mm3 (150-450); RBC Distribution Width CV 12.6 % (11.6-14.6); RBC Distribution Width SD 43.7 fl (35.1-43.9); Red Blood Count 3.32 M/mm3 (4.2-5.4); White Blood Count 3.7 K/mm3 (4.4-11.0)
[2018-08-23 10:11] LABS: ALB/GLOB Ratio 1.4 RATIO (0.9-2.4); AST(SGOT) 21 U/L (15-37); Alanine Aminotransfer ALT/SGPT 19 U/L (13-56); Albumin, Serum 3.8 g/dL (3.2-5.0); Alkaline Phosphatase 36 U/L (45-117); Anion Gap 6 (5-15); BUN 33 mg/dL (7-18); BUN/Creat Ratio 25.6 RATIO (10-20); Calcium,Total 8.6 mg/dL (8.5-10.1); Chloride 96 mmol/L (98-107); Creatinine, Serum 1.29 mg/dL (0.55-1.02); EST Glomerular Filtration Rate 43 mL/min (>60); Est Glom Filt Rate - Afr Amer 52 mL/min (>60); Globulin 2.7 g/dL (2.2-4.2); Glucose 98 mg/dL (74-106); Protein, Total 6.5 g/dL (6.4-8.2); Sodium Level 132 mmol/L (136-145)
== END ==
PROVIDERS: Family Provider Internal Medicine; PCP Internal Medicine; Referring Provider Internal Medicine; Visit Provider Internal Medicine
DX: R55 Syncope and collapse (principal)
CPT/HCPCS: 70450; 80053; 84484; 85025

== ENCOUNTER → 2018-08-31 08:56 | Outpatient (CLI) | payer MEDICARE, SELFPAY ==
[2018-07-01 15:06] VITALS: BMI 24.3
== END ==
PROVIDERS: Family Provider Internal Medicine; PCP Internal Medicine; Referring Provider Internal Medicine; Visit Provider Internal Medicine
DX: R55 Syncope and collapse (principal)
CPT/HCPCS: 93225; 93226

== ENCOUNTER → 2018-09-19 11:20 | Outpatient (CLI) | payer MEDICARE, SELFPAY ==
[2018-07-01 15:06] VITALS: BMI 24.3
[2018-09-19 11:27] LABS: Bacteria 0 SEEN /hpf (None Seen)
[2018-09-19 12:20] LABS: Color, Urine Yellow (Yellow); Glucose, Dipstick Normal (Normal); Ketone-Dipstick Negative (Negative); Leukocyte Esterase-Dipstick 25 /ul (Negative); Nitrite-Dipstick Negative (Negative); Occult Blood-Urine Negative /ul (Negative); Protein-Dipstick Negative (Negative); Urine Bilirubin Dipstick Negative (Negative); Urine Clarity Sl. Cloudy (Clear); Urine Urobilinogen Normal (Normal); Urine pH 6.5 (5.0 - 8.0)
[2018-09-19 12:31] LABS: Mucous, Urine RARE /hpf (<or=2+); Red Blood Cells-Urine 0-5 SEEN /hpf (0-5); Squamous Epithelial Cells - UA 0-5 SEEN /hpf (5-10); White Blood Cells 0-5 SEEN /hpf (0-5)
[2018-09-19 12:39] LABS: Absolute Lymphocyte Count 1.06 X10^3/ul (0.83-4.51); Absolute Neutrophil Count 2.1 X10^3/uL (2.0-7.7); Basophil# 0.06 X10^3/uL; Basophil% 1.7 % (0-1); Eosinophil# 0.06 X10^3/uL; Eosinophils% 1.7 % (0-5); Hematocrit 33.2 % (37-47); Hemoglobin 10.6 g/dl (12.0-15.0); Lymphocyte # 1.06 X10^3/ul (4.0); Lymphocyte % 29.4 % (19-41); Mean Corp Hgb Conc 31.9 g/gl (32-36); Mean Corpuscular Hgb 31.1 pg (27.0-32.0); Mean Corpuscular Volume 97.4 fL (81-99); Mean Platelet Vol. 9.8 fl (6.2-12.0); Monocyte# 0.35 X10^3/uL; Monocyte% 9.7 % (0-10); Neutrophil # 2.08 X10^3/uL (2.7-7.7); Neutrophil % 57.5 % (47-70); Platelet Count 316 K/mm3 (150-450); RBC Distribution Width CV 12.8 % (11.6-14.6); RBC Distribution Width SD 45.9 fl (35.1-43.9); Red Blood Count 3.41 M/mm3 (4.2-5.4); White Blood Count 3.6 K/mm3 (4.4-11.0)
[2018-09-19 12:41] LABS: POSITIVE COUNT NO; POSITIVE DIFFERENTIAL NO; POSITIVE MORPHOLOGY NO
[2018-09-19 12:42] LABS: Microalbumin,Random Urine 8.2 mg/L (NO RANGE EST.); Microalbumin:Creatinine Ratio 12.6 mg/g CRE (<30 mg/g CRE)
[2018-09-19 12:52] LABS: Hemoglobin A1c 5.5 % (4.2-6.3)
[2018-09-19 12:53] LABS: Vitamin D,25 Hydroxy 18.2 ng/mL (29.95-100.01)
[2018-09-19 12:56] LABS: ALB/GLOB Ratio 1.2 RATIO (0.9-2.4); AST(SGOT) 17 U/L (15-37); Alanine Aminotransfer ALT/SGPT 17 U/L (13-56); Albumin, Serum 3.7 g/dL (3.2-5.0); Alkaline Phosphatase 36 U/L (45-117); Anion Gap 4 (5-15); BUN 27 mg/dL (7-18); BUN/Creat Ratio 23.3 RATIO (10-20); Calcium,Total 8.7 mg/dL (8.5-10.1); Chloride 105 mmol/L (98-107); Cholesterol 192 mg/dL (200); Creatinine, Serum 1.16 mg/dL (0.55-1.02); EST Glomerular Filtration Rate 49 mL/min (>60); Est Glom Filt Rate - Afr Amer 59 mL/min (>60); Globulin 3.2 g/dL (2.2-4.2); Glucose 94 mg/dL (74-106); High Density Lipoprotein 66 mg/dL; Protein, Total 6.9 g/dL (6.4-8.2); Sodium Level 136 mmol/L (136-145); Thyroid Stim Hormone (TSH) 2.11 uIU/mL (0.358-3.74); Triglycerides 88 mg/dL; Very Low Density Lipoprotein 18 mg/dL (5-40)
== END ==
PROVIDERS: Family Provider Internal Medicine; PCP Internal Medicine; Referring Provider Internal Medicine; Visit Provider Internal Medicine
DX: E78.49 Other hyperlipidemia (principal); I10 Essential (primary) hypertension; M81.8 Other osteoporosis without current pathological fracture; R73.09 Other abnormal glucose; R79.89 Other specified abnormal findings of blood chemistry
CPT/HCPCS: 36415; 80053; 80061; 81001; 82043; 82306; 82570; 83036; 84443; 85025

== ENCOUNTER → 2019-01-12 12:49 | Outpatient (CLI) | payer MEDICARE, SELFPAY ==
[2018-07-01 15:06] VITALS: BMI 24.3
[2019-01-02 14:23] VITALS: BMI 24.7
--- NOTE | 2019-01-12 12:53 | CDU_ITS ---
Reason For Study: carotid stenosis Rt. Velocities/BP Lt. Velocities/BP Prox CCA 91.7/18.6 cm/sec. Prox CCA 94.9/18.8 cm/sec. Mid CCA 64.3/14.7 cm/sec. Mid CCA 63.0/16.3 cm/sec. Dist CCA 69.5/13.4 cm/sec. Dist CCA 71.6/15.1 cm/sec. Prox ICA 76.5/20.0 cm/sec. Prox ICA 112.0/20.6 cm/sec. Mid ICA 98.6/28.6 cm/sec. Mid ICA 93.7/22.5 cm/sec. Dist ICA 108.4/29.8 cm/sec. Dist ICA 86.4/24.3 cm/sec. Rt. ICA/CCA = 1.7. Lt. ICA/CCA = 1.8. Prox ECA 146.7/6.0 cm/sec. Prox ECA 99.2/4.2 cm/sec. Rt. Vert. 47.0/12.6 cm/sec. Lt. Vert. 91.9/27.9 cm/sec. Right Extracranial There is intimal thickening but no significant atherosclerotic plaque noted in the right common carotid artery. There is heterogeneous, irregular atherosclerotic plaque noted in the right internal carotid artery. There is heterogeneous, irregular atherosclerotic plaque noted in the right external carotid artery. Antegrade flow is noted in the right vertebral artery. Left Extracranial There is intimal thickening but no significant atherosclerotic plaque noted in the left common carotid artery. There is heterogeneous, irregular atherosclerotic plaque noted in the left internal carotid artery. There is heterogeneous, irregular atherosclerotic plaque noted in the left external carotid artery. Antegrade flow is noted in the left vertebral artery. Procedure Carotid Duplex [id number]. The exam was diagnostic. Exam performed in department. Interpretation Summary Mild (<50%) stenosis right extracranial internal carotid. Mild (<50%) stenosis left extracranial internal carotid. Flow within the vertebral arteries is antegrade bilaterally. Ordering Physician: Zuri Gutierrez Performed By: Rufino Ashley RVT
--- NOTE | 2019-01-12 14:19 | BI_ITS ---
MAMMOGRAPHY - BILATERAL SCREENING REASON FOR EXAM: Female, 73 years old. Routine annual screening examination. PERTINENT HISTORY: Sister with breast cancer. TECHNIQUE: Digital bilateral breast malcolm (3D mammographic acquisition) in the CC and MLO projections. 2-D mediolateral oblique (MLO) and craniocaudad (CC) views of both breasts were obtained. CAD: Full Field Digital Mammography with Computer Added Detection was performed. COMPARISON: Comparison is made with prior study dated December 10, 2017 and November 19, 2016. FINDINGS: Breast Composition: The breasts are heterogeneously dense, which may obscure small masses. There are no dominant masses or suspicious calcifications. Stable bilateral secretory calcification. No other significant abnormalities are identified. There has been no significant change since the prior study. BI/SCREEN MAMM (CAD) W/MALCOLM BILAT IMPRESSION: Stable bilateral screening mammogram. Yearly follow-up mammogram recommended. (A) ASSESSMENT CATEGORY: BIRADS Category 2: Benign. A letter regarding these results will be sent to the patient by the facility within 30 days. Approximately 10% of breast cancers are not detected by mammography. A normal mammogram should not delay biopsy of a clinically suspicious abnormality. [id number] Electronically Signed: Johnny Gilman, at 15:43 EDT , Service support ,
--- NOTE | 2019-01-12 14:25 | BD_ITS ---
STUDY: DUAL ENERGY X-RAY ABSORPTIOMETRY / DXA REASON FOR EXAM: Female, 73 years old. The patient is postmenopausal. Loss of height. TECHNIQUE: Bone Mineral Density (BMD) measurements of lumbar spine and bilateral hips were obtained. COMPARISON: Comparison is made with prior examination dated September 29, 2016. FINDINGS: Lumbar Spine (L1-L4): g/cm2 (0.943) / T-score (-1.9) / Z-score (0.1) Findings are suggestive of osteopenia with a moderate fracture risk. Left Femur Total: g/cm2 (0.682) / T-score (-2.6) / Z-score (-0.9) Left Femoral Neck: g/cm2 (0.757) / T-score (-2.0) / Z-score (-0.2) Right Femur Total: g/cm2 (0.68) / T-score (-2.6) / Z-score (-0.9) Right Femoral Neck: g/cm2 (0.659) / T-score (-2.7) / Z-score (-0.9) The T-Scores on the most recent prior examination were: Lumbar Spine (L1-L4): There has been improvement of bone density since the previous examination. Left Femur Total: which represents an improvement of 7.2%. Right Femur Total: which represents an improvement of 5.4%. BD/Dexa Bone Density Study IMPRESSION: The patient is considered osteoporotic as outlined below according to World Kade Organization (WHO) criteria with a high fracture risk. There has been improvement of bone density since the previous examination. Reference Information: The T-score is the number of standard deviations above or below the standard which is normal for young adults at their peak bone mineral density. The World Health Organization (WHO) interprets the T-scores as follows: Above -1 Normal bone density Between -1 and -2.5 Osteopenia Equal to / or below -2.5 Osteoporosis As a practical clinical guideline, osteopenia may be graded as follows: Mild -1 through -1.5 Moderate -1.6 through -2.0 Severe -2.1 through -2.4 The Z-score is the number of standard deviations above or below age-matched controls. A Z-score of less than -1.5 would be considered abnormal. References: 1. NIH Osteoporosis and Related Bone Diseases http://www.osteo.org 2. International Society for Clinical Densitometry http://www.iscd.org 3. National Osteoporosis Foundation http://www.nof.org Electronically Signed: Johnny Gilman, at 14:52 EDT , Service support ,
== END ==
PROVIDERS: Family Provider Internal Medicine; PCP Internal Medicine; Referring Provider Internal Medicine; Visit Provider Internal Medicine
DX: I65.23 Occlusion and stenosis of bilateral carotid arteries (principal); Z12.31 Encounter for screening mammogram for malignant neoplasm of breast; Z78.0 Asymptomatic menopausal state
CPT/HCPCS: 77063; 77067; 77080; 93880

== ENCOUNTER 2019-03-07 09:34 | Observation (INO) | payer MEDICARE, SELFPAY ==
[2019-01-02 14:23] VITALS: BMI 24.7
[2019-03-07] VITALS (11 sets, daily range): BP systolic 125–169; BP diastolic 52–73; PULSE 59–67; RESP 16–20; TEMP 36.6–36.9; O2SAT 96–100; BMI 24.6; BMI 24.0; BMI 24.1
--- NOTE | 2019-03-07 09:55 | RAD_ITS ---
STUDY: X-RAY CHEST REASON FOR EXAM: Female, 74 years old. Chest pain. TECHNIQUE: PA and lateral views of the chest. COMPARISON: Comparison is made with prior study dated July 02, 2015. FINDINGS: EKG electrodes are seen. Hyperinflation. There is no demonstrated pleural abnormality. Normal size heart. Normal mediastinum and iglesia. Normal visualized pulmonary arteries. There is atherosclerotic calcification of the aortic arch with tortuosity. There is demineralization of the osseous structures. Normal visualized ribs, clavicles, and shoulders. There is no demonstrated abnormality of the visualized soft tissue structures of the upper abdomen. RAD/Chest PA and Lateral IMPRESSION: Hyperinflation. No acute abnormality is seen. Electronically Signed: Johnny Gilman, at 10:41 EST , Service support ,
--- NOTE | 2019-03-07 09:55 | EKG12_ITS ---
Test Reason : CP Blood Pressure : / mmHG Vent. Rate : 066 BPM Atrial Rate : 066 BPM P-R Int : 220 ms QRS Dur : 090 ms QT Int : 450 ms P-R-T Axes : 102 -16 016 degrees QTc Int : 471 ms Sinus rhythm with 1st degree A-V block Otherwise normal ECG Confirmed by CHRIS JC, KERRY ([id number]), editor greeting card LORENZO MOREL ([id number]) on 03/13/2019 11:53:13 AM Referred By: Nicolasa Dutton Confirmed By:ADITHYA PEREZ MD
--- NOTE | 2019-03-07 09:57 | ED.DCSUM_ITS ---
History of Present Illness Chief Complaint: Chest Pain Informant: Patient, Relative Onset: Today Activity at onset: Rest Timing: Waxes and wanes Quality: Sharp Location: Right Chest Narrative: Patient is a 74-year-old female with history of carotid artery stenosis, GERD, hypertension, proximal atrial fibrillation and COPD presenting with chest pain. Patient states it started this morning is in her right anterior chest. She states that sharp. It was quite severe for about 5 minutes and then started to lighten up. It then returned shortly after and she felt that she had a throw up. She threw up but states is mostly phlegm. She continued to have pain so she came to the emergency room. She also notes she has been more dizzy since the , for the past 6 days. She had multiple times she feels like she is going to pass out. It is especially when she stands up too fast. She notes when it happens as she is well pale and her blood pressure is low. She denies any associated fever or cough. Patient has been feeling short of breath with these episodes. Patient is supposed to be on Xarelto for atrial fibrillation but has been off of it for the past month because she is supposed to get a colonoscopy due to occult blood in her stool. She notes she also has a history of PE and carotid artery stenosis. She denies any other complaints at this time. She denies any swelling of her legs. She denies any cough or sputum production. She denies any vision changes. CVD Risk Factors: Hypertension, Hypercholesterolemia Past Medical History - Allergies and Home Meds Allergies/Adverse Reactions: Allergies No Known Allergies Allergy (Verified 03/07/19 09:38) Past Medical History: - - carotid artery stenosis, GERD, hypertension, proximal atrial fibrillation and COPD Surgical History: - Smoking Status: Former smoker - Family History Maternal Family History: Family History (Last Reviewed 01/02/19 @ 14:32 by JESSICA Larios) Sister Breast cancer Brother Heart disease Sister Diabetes Family History: Reports: No pertinent history Paternal Family History: Family History (Last Reviewed 01/02/19 @ 14:32 by JESSICA Larios) Sister Breast cancer Brother Heart disease Sister Diabetes Family History: Reports: No pertinent history Review of Systems General: Reports: - - lightheaded . Denies: Chills, Fever, Sweats Eyes: Denies: Visual changes - bilaterally, Diplopia ENT: Denies: Rhinorrhea, Sore throat Cardiovascular: Reports: Chest pain. Denies: Palpitations Respiratory: Denies: Dyspnea, Cough, Dyspnea on exertion Gastrointestinal: Denies: Abdominal pain, Nausea, Vomiting, Diarrhea, Melena, Hematochezia Genitourinary: Denies: Dysuria, Hematuria, Frequency Musculoskeletal: Denies: Back pain, Extremity Pain Skin: Denies: Rash, Wounds Neurological: Denies: Headache, Weakness, Numbness Physical Exam Vital Signs/Narrative: Vital Signs Temp Pulse Resp BP Pulse Ox 03/07/19 09:35 97.9 F 66 20 H 169/62 H 100 Inital Vital Signs reviewed: Yes General: Well nourished, Well developed, No Acute Distress Head: Normocephalic, Atraumatic Eyes: Perrl, EOMI ENT: Moist mucous membranes, No rhinorrhea Neck: Supple, Nontender, No JVD Cardiovascular: Regular rate, Regular rhythm, No murmurs. Negative for: Murmur Respiratory: No distress, CTA bilaterally, Chest nontender. Negative for: Wheezing Abdomen: Soft, Nontender, Nondistended, Normal bowel sounds Back: Nontender, Normal Inspection Extremities: Nontender, No edema Skin: Normal color, No rash Neurological: Alert, Oriented x3, Cranial nerves II-XII grossly intact, Normal Strength, Normal Sensation Psychological: Normal affect, Normal Mood Diagnostic/Tx/Re-eval Chest X-Ray - ED: 2 View, Read by ED Physician, Read by Radiologist, No Acute Disease Clinical Impression(s) from Imaging Studies Chest X-Ray 03/07/19 09:55 IMPRESSION: Hyperinflation. No acute abnormality is seen. Electronically Signed: Johnny Gilman, at 10:41 EST , Service support , Laboratory Data 03/07/19 03/07/19 09:40 09:40 WBC 4.8 RBC 3.79 L Hgb 11.8 L Hct 36.7 L MCV 96.8 MCH 31.1 MCHC 32.2 RDW Std Deviation 44.1 H RDW Coeff of Reina 12.5 Plt Count 272 MPV 10.8 Immature Gran % (Auto) 0.200 Neut % (Auto) 50.8 Lymph % (Auto) 36.4 Rains % (Auto) 8.7 Eos % (Auto) 2.5 Baso % (Auto) 1.4 H Absolute Neuts (auto) 2.5 Absolute Lymphs (auto) 1.76 Nucleated RBC % 0 Sodium 141 Potassium 3.6 Chloride 106 Carbon Dioxide 28.0 Anion Gap 7 BUN 27 H Creatinine 1.63 H Estim Creat Clear Calc 27.25 Est GFR (MDRD) Af Amer 40 L Est GFR (MDRD) Non-Af 33 L BUN/Creatinine Ratio 16.6 Glucose 101 Calcium 9.7 Troponin I < 0.015 - Rhythm Strip Rhythm Strip: Sinus Rhythm Rate: 66 Ectopy: None - EKG Initial EKG Interpretation: Sinus Rhythm, - - Normal sinus rhythm with first-degree AV block at a rate of 66 IA interval 220 QRS 90 QTc 471 Left axis deviation Normal ST segments - Medical Decision Making Patient is evaluated for chest pain. She is given aspirin and nitro in the emergency room. Her chest pain improves with nitroglycerin. EKG does not show any dynamic changes and initial troponin is negative. Patient is currently on Xarelto. I have less concern for PE. Patient will be admitted for further cardiac evaluation. She is agreeable with this but she does have multiple cardiac risk factors including hypertension, hyperlipidemia and advanced age. Loulou mae is also been feeling lightheaded and does have a bump in her creatinine. She is given IV fluids in the emergency room. Is possible she could have a cardiogenic cause of her near syncope however it might also just be from dehydration. She stable for the general medical floor at time of disposition. ED Disposition - Plan for ED Patient: Disposition: Acute Care [facility] Diagnosis: Chest pain, Acute kidney injury superimposed on chronic kidney disease, Anemia
[2019-03-07 10:12] LABS: Absolute Lymphocyte Count 1.76 X10^3/uL (0.83-4.51); Absolute Neutrophil Count 2.5 X10^3/uL (2.0-7.7); Basophil# 0.07 X10^3/uL; Basophil% 1.4 % (0-1); Eosinophil# 0.12 X10^3/uL; Eosinophils% 2.5 % (0-5); Hematocrit 36.7 % (37-47); Hemoglobin 11.8 g/dL (12.0-15.0); Lymphocyte # 1.76 X10^3/ul (4.0); Lymphocyte % 36.4 % (19-41); Mean Corp Hgb Conc 32.2 g/dL (32-36); Mean Corpuscular Hgb 31.1 pg (27.0-32.0); Mean Corpuscular Volume 96.8 fL (81-99); Mean Platelet Vol. 10.8 fl (6.2-12.0); Monocyte# 0.42 X10^3/uL; Monocyte% 8.7 % (0-10); NRBC Flagged by Analyzer 0 % (0-5); Neutrophil # 2.46 X10^3/uL (2.7-7.7); Neutrophil % 50.8 % (47-70); Platelet Count 272 K/mm3 (150-450); RBC Distribution Width CV 12.5 % (11.6-14.6); RBC Distribution Width SD 44.1 fl (35.1-43.9); Red Blood Count 3.79 M/mm3 (4.2-5.4); White Blood Count 4.8 K/mm3 (4.4-11.0)
[2019-03-07] MEDS: Aspirin 81 MG TAB.CHEW 324 MG PO (10:26)
[2019-03-07 10:27] LABS: Anion Gap 7 (5-15); BUN 27 mg/dL (7-18); BUN/Creat Ratio 16.6 RATIO (10-20); Calcium,Total 9.7 mg/dL (8.5-10.1); Chloride 106 mmol/L (98-107); Creatinine, Serum 1.63 mg/dL (0.55-1.02); EST Glomerular Filtration Rate 33 mL/min (>60); Est Glom Filt Rate - Afr Amer 40 mL/min (>60); Estimated Creatinine Clearance 27.25 ml/min; Glucose 101 mg/dL (74-106); Potassium 3.6 mmol/L (3.5-5.1); Sodium Level 141 mmol/L (136-145)
[2019-03-07] MEDS: Nitroglycerin SL (ED/IMG/CATH) 0.4 MG TABLET SUBLINGUAL (10:28)
--- NOTE | 2019-03-07 11:03 | PCM.PN.HOSP ---
Vitals/I&O's: Vital Signs Temp Pulse Resp BP Pulse Ox 97.9 F 59 L 20 H 138/61 H 100 03/07/19 09:35 03/07/19 10:28 03/07/19 09:35 03/07/19 10:28 03/07/19 09:35 Oxygen Delivery Method Room Air Weight: 148 lb 2.41 oz Body Mass Index (BMI) 24.6 Laboratory Results 03/07/19 09:40: WBC 4.8, RBC 3.79 L, Hgb 11.8 L, Hct 36.7 L, MCV 96.8, MCH 31.1, MCHC 32.2, RDW Std Deviation 44.1 H, RDW Coeff of Reina 12.5, Plt Count 272, MPV 10.8, Immature Gran % (Auto) 0.200, Neut % (Auto) 50.8, Lymph % (Auto) 36.4, [place] % (Auto) 8.7, Eos % (Auto) 2.5, Baso % (Auto) 1.4 H, Absolute Neuts (auto) 2.5, Absolute Lymphs (auto) 1.76, Nucleated RBC % 0 03/07/19 09:40: Sodium 141, Potassium 3.6, Chloride 106, Carbon Dioxide 28.0, Anion Gap 7, BUN 27 H, Creatinine 1.63 H, Estim Creat Clear Calc 27.25, Est GFR (MDRD) Af Amer 40 L, Est GFR (MDRD) Non-Af 33 L, BUN/Creatinine Ratio 16.6, Glucose 101, Calcium 9.7, Troponin I < 0.015 Current Medications Nitroglycerin (Nitrostat) 0.4 mg SUBLINGUAL Q5M PRN PRN Reason: Chest pain Last Admin: 03/07/19 10:28 Dose: 0.4 mg Documented by: STROKE Vital Signs/Narrative: Vital Signs Temp Pulse Resp BP Pulse Ox 03/07/19 10:28 59 L 138/61 H 03/07/19 09:35 97.9 F 66 20 H 169/62 H 100 Medical Necessity - Tobacco Use Smoking Status: Former smoker Assessment/Plan All Active Problems (Last Reviewed 01/02/19 @ 14:32 by MARLENI LariosC) Chest pain (Acute) Iron deficiency (Resolved)
[2019-03-07] MEDS: 0.9% Normal Saline 1,000 ML 999 ML IV (11:18)
--- NOTE | 2019-03-07 12:03 | CT_ITS ---
STUDY: CTA CHEST REASON FOR EXAM: Female, 74 years old. Chest pain. RADIATION DOSAGE (If Supplied By Facility): CTDIvol = ( 34.84 ) mGy, DLP = ( 353.76 ) mGycm TECHNIQUE: The examination was performed with the intravenous administration of 75 ml isovue 370. Post-processing of the angiographic images was performed, with multiplanar reformation and 3D reconstruction. Individualized dose optimization techniques were used for this CT. COMPARISON: Comparison is made with prior chest radiograph dated March 07, [address] scan of the thorax dated June 20, 2015. FINDINGS: Normal enhancement of the main pulmonary artery and right and left pulmonary arteries. Normal enhancement of the bilateral peripheral pulmonary arteries. There is no demonstrated pulmonary embolism. There is atherosclerotic calcification of the aortic arch with tortuosity. There is no demonstrated aortic dissection. There are calcifications of the coronary arteries. Normal mediastinum. Normal hilar regions. Normal visualized trachea and bronchi. The lungs are well expanded. Mild scarring in the lingular segment of the left upper lobe. Normal pleura. Normal chest wall structures. There are degenerative changes of thoracic spine. 1.7 cm cyst in the upper anterior midportion of the left kidney. Small hiatal hernia. CT/CTA Chest W/WO Contrast IMPRESSION: No acute abnormality is seen. Stable cyst in the upper aspect of the left kidney. Electronically Signed: Johnny Gilman, at 14:24 EST , Service support ,
--- NOTE | 2019-03-07 12:29 | CASEMGMT ---
LEEANNE met with pt and daughter and informed her that there is not a copy of [facility] health care POA in pt medical record. Daughter agreeable to bring a copy to the hospital. JESSA Gómez
--- NOTE | 2019-03-07 12:55 | EKG12_ITS ---
Test Reason : CP ADMISSION Blood Pressure : / mmHG Vent. Rate : 062 BPM Atrial Rate : 062 BPM P-R Int : 224 ms QRS Dur : 094 ms QT Int : 462 ms P-R-T Axes : 000 -07 042 degrees QTc Int : 468 ms Sinus rhythm with 1st degree A-V block with Premature atrial complexes in a pattern of bigeminy Otherwise normal ECG No previous ECGs available Confirmed by CHRIS JC, KERRY ([id number]), assignment desk editor NALINI DIOP ([id number]) on 03/13/2019 12:56:57 PM Referred By: Nicolasa Dutton Confirmed By:ADITHYA PEREZ MD
--- NOTE | 2019-03-07 13:38 | PCM.HP.STD ---
History of Present Illness Date of Admission: 03/07/19 Chief Complaint: chest pain The patient is a 74 year old F with an extensive past medical history as listed which includes a history of PE. She was admitted through the ED on 03/07/2019 with a complaint of sudden onset of chest pain was started early on the day of admission. Pain was sharp and retrosternal and aggravated by walking and relieved mildly by rest. She had assisted shortness of breath also admitted to lightheadedness and dizziness and she felt like passing out. He denied any palpitations or fever or chills. Daughter said patient had not been eating or drinking well. Review of symptoms otherwise negative. States she had chest pain like this some years ago when she was worked up and was negative. In the ED, vitals were essentially stable. Chemistry was significant for creatinine of 1.63 with a baseline of around 1.1. Initial troponin was negative and CBC was unremarkable. Chest x-ray showed hyperinflation with no acute abnormalities. Of note, patient says she had not been taking her Xarelto for about a month because she had a positive occult blood in her stool and she was asked to follow-up with the vessel slagman Dr. Boo. She had just gotten into see him and he had scheduled her for colonoscopy in March. As such CTA of the chest was ordered which was negative for any PE. She has been admitted to manage for chest pain to rule out ACS. [] Past Medical History Past Medical History (Chronic Problems): Chronic Problems (Last Reviewed 01/02/19 @ 14:32 by MARLENI LariosC) Essential hypertension (Chronic) Anemia (Chronic) Leukopenia (Chronic) Carotid stenosis (Chronic) GERD (gastroesophageal reflux disease) (Chronic) Lung nodule (Chronic) Atherosclerotic heart disease of [place] coronary artery without angina pectoris (Chronic) Mild to moderate - Cardiac Cath @ [facility] 05/03/09 Moderate persistent asthma (Chronic) COPD (chronic obstructive pulmonary disease) (Chronic) Paroxysmal atrial fibrillation (Chronic) Hyperlipidemia (Chronic) Medical History: Medical History (Last Reviewed 01/02/19 @ 14:32 by MARLENI LariosC) Essential hypertension (Chronic) I10 Carotid stenosis (Chronic) I65.29 GERD (gastroesophageal reflux disease) (Chronic) K21.9 Lung nodule (Chronic) R91.1 Atherosclerotic heart disease of [place] coronary artery without angina pectoris (Chronic) I25.10 Mild to moderate - Cardiac Cath @ [facility] 05/03/09 Moderate persistent asthma (Chronic) J45.40 Chest pain (Acute) R07.9 COPD (chronic obstructive pulmonary disease) (Chronic) J44.9 Paroxysmal atrial fibrillation (Chronic) I48.0 Hyperlipidemia (Chronic) E78.5 Iron deficiency (Resolved) E61.1 SPINAL INJECTIONS FOR PAIN MANAGEMENT Fibromyalgia M79.7 History of pulmonary embolism Z86.711 Right Hypertension (Inactive) I10 Allergies No Known Allergies Allergy (Verified 03/07/19 09:38) Home Medications: Ambulatory Orders Medication Instructions Recorded Amlodipine [Norvasc] 10 mg PO DAILY 06/20/15 Aspirin [Aspirin, Baby] 81 mg PO DAILY@0800 06/20/15 Atorvastatin Calcium [Lipitor] 60 mg PO QHS 06/20/15 Calcium Carbonate/Vitamin D3 1 ea PO DAILY 06/20/15 [Calcium 600-Vit D3 400 Caplet] Carvedilol [Coreg (Beta Raisa)] 12.5 mg PO BID 06/20/15 Cholecalciferol (VIT D3) [Vitamin 1,000 unit PO DAILY 06/20/15 D3] Dexlansoprazole [Dexilant] 60 mg PO DAILY 06/20/15 Losartan/Hydrochlorothiazide 1 tab PO DAILY 06/20/15 [Hyzaar 100-25 Tablet] Montelukast [Singulair] 10 mg PO DAILY 06/20/15 Opcon-A 1 drp OP PRN PRN 06/20/15 Ranitidine [Zantac] 300 mg PO DAILY 06/20/15 Vitamin E 1,000 unit PO DAILY 06/20/15 Meloxicam [Mobic] 15 mg PO DAILY 06/16/16 rivaroxaban 20 mg tablet 20 mg PO DAILY 06/29/16 fluticasone 250 mcg-salmeterol 50 1 inh INHALATION Q12H 06/16/17 mcg/dose blistr powdr for inhalation fluticasone propionate 50 1 spray INTRANASAL BID #16 g 06/21/17 mcg/actuation nasal spray,suspension isosorbide dinitrate 30 mg tablet 30 mg PO QDAY tab 07/01/17 ascorbic acid (vitamin C) 500 mg 500 mg PO QDAY cap 07/05/17 capsule duloxetine 30 mg capsule,delayed 30 mg PO QDAY 04/16/18 release ferrous sulfate 325 mg (65 mg 325 mg PO QDAY tab 07/05/17 iron) tablet levothyroxine 25 mcg tablet 25 mcg PO QDAY #30 tab 07/08/17 amiodarone 200 mg tablet 200 mg PO QDAY #90 tab 06/20/18 Levothyroxine [Synthroid] 50 mcg PO ROMERO 03/07/19 Surgical History: Surgical History (Last Reviewed 01/02/19 @ 14:32 by JESSICA Larios) History of foot surgery Z98.890 History of hand surgery Z98.890 History of mandibular surgery Z98.890 History of sinus surgery Z98.890 mole removal Surgical History: - Psychiatric History: No pertinent psych hx 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 DESIGN ENGINEER History: No pertinent PHYSICAL DESIGN ENGINEER history Lives: With Family Smoking Status: Former smoker - *Family History Maternal Family History: Family History (Last Reviewed 01/02/19 @ 14:32 by JESSICA Larios) Sister Breast cancer Brother Heart disease Sister Diabetes History Items: No pertinent history Paternal Family History: Family History (Last Reviewed 01/02/19 @ 14:32 by JESSICA Larios) Sister Breast cancer Brother Heart disease Sister Diabetes History Items: No pertinent history Review of Systems Constitutional: Denies: Chills, Fever, Malaise, Weakness, Weight Change Eyes: Denies: Blurred vision HEENT: Denies: Head Aches, Sinus Congestion, Sinus Drainage Cardiovascular: Reports: Chest Pain, Light Headedness. Denies: Chest Pressure, Chest Tightness, Edema, Heaviness, Orthopnea, Palpitations, Paroxysmal Noc. Dyspnea, Syncope Respiratory: Reports: Shortness of breath upon exertion. Denies: Cough, Shortness of Breath, Shortness of breath at rest, Sputum production Gastrointestinal: Denies: Abdominal Pain, Nausea, Vomiting Genitourinary: Denies: Dysuria Musculoskeletal: Denies: Joint Pain, Joint Tenderness Skin: Denies: Rash, Wounds Neurological: Denies: Numbness, Tingling, Focal weakness Psychiatric: Denies: Anxiety, Depression, Homicidal Ideations, Suicidal Ideations Hematologic/ Lymphatic: Denies: Easy Bruising, Easy Bleeding VTE Information - Inpt Only VTE Present on Admission: No VTE Pharm Prophylaxis ordered?: Yes - Physical Exam Vitals/I&O's: Vital Signs Temp Pulse Resp BP Pulse Ox 97.8 F 60 16 143/58 H 98 03/07/19 11:54 03/07/19 12:00 03/07/19 11:54 03/07/19 11:54 03/07/19 11:54 Oxygen Delivery Method Room Air Weight: 144 lb 11.2 oz Body Mass Index (BMI) 24.0 General: Alert, Oriented x3, Cooperative, No apparent distress HEENT: Atraumatic, PERRLA, EOMI, Normocephalic Oral: Moist Mucosa Neck: Supple, No JVD, Negative Carotid Bruits Lungs: Clear to auscultation, Normal air movement, No rhonchi, No wheeze, No rales Cardiovascular: Regular rate, Regular Rhythm, Normal S1, Normal S2, No murmurs Abdomen: Bowel Sounds Present, Soft, Non Tender, Non-Distended, No Hepato-splenomegaly Extremities: No clubbing, No cyanosis, No edema, Capillary Refill Less than 3 Seconds Skin: No rashes, No breakdown Musculoskeletal: No Tenderness to Palpation of Joints or Extremities Lymphatic: No Cervical, Supraclavicular, or Inguinal Adenopathy Neurological: Cranial nerves II-XII grossly intact Psych/Mental Status: Normal Affect, Appropriate, Alert and oriented to time, place, person, mood and affect Laboratory Results 03/07/19 09:40: WBC 4.8, RBC 3.79 L, Hgb 11.8 L, Hct 36.7 L, MCV 96.8, MCH 31.1, MCHC 32.2, RDW Std Deviation 44.1 H, RDW Coeff of Reina 12.5, Plt Count 272, MPV 10.8, Immature Gran % (Auto) 0.200, Neut % (Auto) 50.8, Lymph % (Auto) 36.4, [place] % (Auto) 8.7, Eos % (Auto) 2.5, Baso % (Auto) 1.4 H, Absolute Neuts (auto) 2.5, Absolute Lymphs (auto) 1.76, Nucleated RBC % 0 03/07/19 09:40: Sodium 141, Potassium 3.6, Chloride 106, Carbon Dioxide 28.0, Anion Gap 7, BUN 27 H, Creatinine 1.63 H, Estim Creat Clear Calc 27.25, Est GFR (MDRD) Af Amer 40 L, Est GFR (MDRD) Non-Af 33 L, BUN/Creatinine Ratio 16.6, Glucose 101, Calcium 9.7, Troponin I < 0.015 Diagnostic Data Chest X-Ray 03/07/19 09:55 IMPRESSION: Hyperinflation. No acute abnormality is seen. Electronically Signed: Johnny Valledesidomo, at 10:41 EST , Service support , Chest CTA 03/07/19 12:03 IMPRESSION: No acute abnormality is seen. Stable cyst in the upper aspect of the left kidney. Electronically Signed: Johnny Urbinamore, at 14:24 EST , Service support , Current Medications Albuterol Sulfate (Ventolin Aerosols) 2.5 mg INHALATION Q6HWA.RT ZEKE Amiodarone HCl (Cordarone) 200 mg PO DAILY ZEKE Amlodipine Besylate (Norvasc) 10 mg PO DAILY ZEKE Ascorbic Acid (Vitamin C) 500 mg PO DAILY ZEKE Aspirin (Aspirin, Baby) 81 mg PO DAILY@0800 ZE[facility] Atorvastatin Calcium (Lipitor) 80 mg PO QHS ZEKE Budesonide (Pulmicort Aerosol) 0.5 mg INHALATION Q12H.RT ZEKE Calcium/Vitamin D (Os-Tk 500mg + D) 1 tablet PO DAILY@1200 [facility] Carvedilol (Coreg) 12.5 mg PO BID ZEKE Cholecalciferol (Vitamin D) 1,000 unit PO DAILY ZEKE Duloxetine HCl (Cymbalta) 30 mg PO DAILY ZEKE Ferrous Sulfate (Ferrous Sulfate) 325 mg PO DAILY@1200 ZEKE Fluticasone Propionate (Flonase Nasal [place]) 1 spray NASAL BID ZEKE Glucagon () 1 mg IM .X1 PRN PRN Reason: Hypoglycemia HCTZ/Losartan Potassium (Hyzaar 100-25 Tablet) 1 tab PO DAILY ZEKE Sodium Chloride () 250 mls @ 15 mls/hr IV .[id number] PRN PRN Reason: Saline Flush Dextrose (Dextrose 10%-Water) 250 mls @ 999 mls/hr IV X1 PRN; Protocol PRN Reason: HYPOGLYCEMIA Isosorbide Dinitrate (Isordil) 30 mg PO DAILY ZEKE Levothyroxine Sodium (Synthroid) 50 mcg PO Romero@0600 [facility] Levothyroxine Sodium (Synthroid) 25 mcg PO MoTuWeThFrSa@0600 [facility] Montelukast Sodium (Singulair) 10 mg PO DAILY@1700 [facility] Nitroglycerin (Nitrostat) 0.4 mg SUBLINGUAL Q5M PRN PRN Reason: Chest pain Last Admin: 03/07/19 10:28 Dose: 0.4 mg Documented by: Nitroglycerin (Nitrostat) 0.4 mg SUBLINGUAL Q5M PRN PRN Reason: CARDIAC/CHEST PAIN Ondansetron HCl (Zofran) 4 mg IV Q8H PRN PRN PRN Reason: NAUSEA/VOMITING Pantoprazole Sodium (Protonix) 40 mg PO DAILY ZEKE Rivaroxaban (Xarelto) 15 mg PO DAILY@1700 [facility] Sodium Chloride () 10 - 40 ml IV UD PRN PRN Reason: SALINE FLUSH Assessment/Plan All Active Problems (Last Reviewed 01/02/19 @ 14:32 by Octavio Rogers, CENTER ADMINISTRATOR-C) Chest pain (Acute) Iron deficiency (Resolved) 74 y/o admitted with a complaint of chest pain 1. Chest pain rule out ACS Admit to PCU with telemetry Patient does have a history of PE and has been off Eliquis for about a month. CTA of the chest was ordered but this was negative for PE. Initial troponin was negative. We will cycle. P.o. aspirin 81 mg daily. Sublingual nitroglycerin as needed Check lipid panel. If troponins are negative, for stress test tomorrow. 2. JOSH on CKD: Creatinine is 1.63 with a baseline creatinine of around 1.1. Will hydrate gently with IV fluids and monitor. This likely due to decreased intake as patient's daughter states has not been eating and drinking well. 3. History of A. fib: Currently rate and rhythm controlled. On amlodipine and carvedilol. Will continue. 4. Anemia: Hemoglobin is 11.9. Has a history of positive occult blood stool about a month ago and his Xarelto was discontinued. will also hold aspirin To follow-up with Dr. Alves for colonoscopy in March as scheduled. 5. Hypothyroidism: On Synthroid. 6. Hypertension: On losartan and hydrochlorothiazide as well as carvedilol. Fairly controlled. 7. Hyperlipidemia: On statin. 8. History of lung nodule: Stable. 9. History of moderate persistent asthma: Stable. Will monitor. 10. CAD: On aspirin, statin and losartan as well as carvedilol. aspirin held o/a of history of positive occult blood in stool Prophylaxis: SCDs. CODE STATUS: Full code Patient counseled extensively about different types of CODE STATUS including full code, DNR CCA and DNR CCA. Patient elects to be full code. Total [id number] time 16 minutes. Code Visit OBSV E&M: 90945 Initial observation care L3 Procedures: 12495 Advncd Care Plan 30 Min
[2019-03-07] MEDS: Montelukast 10 MG Tablet PO (16:21)
[2019-03-07] MEDS: Albuterol 2.5 MG/3 ML VIAL.NEB. INHALATION (18:58)
[2019-03-07] MEDS: Budesonide Respules 0.5 MG/2 ML AMPUL.NEB. INHALATION (18:58)
[2019-03-07] MEDS: Nitroglycerin (INPATIENT USE) 0.4 MG TAB.SUBL SUBLINGUAL (20:17)
[2019-03-07] MEDS: Fluticasone 0.05% 1 SPRAY NASAL.SRY NASAL (20:39)
[2019-03-07] MEDS: Carvedilol 12.5 MG Tablet PO (20:39)
[2019-03-07] MEDS: Atorvastatin Calcium 80 MG Tablet PO (20:39)
[2019-03-08 02:59] VITALS: PULSE 58
[2019-03-08 04:15] VITALS: BP 145/73; PULSE 60; RESP 18; TEMP 36.6; O2SAT 96
[2019-03-08 05:43] LABS: Basophil# 0.05 X10^3/uL; Basophil% 1.2 % (0-1); Eosinophil# 0.09 X10^3/uL; Eosinophils% 2.2 % (0-5); Hematocrit 31.1 % (37-47); Hemoglobin 9.7 g/dL (12.0-15.0); Mean Corp Hgb Conc 31.2 g/dL (32-36); Mean Corpuscular Hgb 30.9 pg (27.0-32.0); Mean Platelet Vol. 10.3 fl (6.2-12.0); Monocyte# 0.43 X10^3/uL; Monocyte% 10.6 % (0-10); NRBC Flagged by Analyzer 0 % (0-5); Neutrophil # 1.98 X10^3/uL (2.7-7.7); Platelet Count 209 K/mm3 (150-450); RBC Distribution Width CV 12.7 % (11.6-14.6); RBC Distribution Width SD 45.9 fl (35.1-43.9); Red Blood Count 3.14 M/mm3 (4.2-5.4); White Blood Count 4.1 K/mm3 (4.4-11.0)
[2019-03-08 06:03] LABS: Anion Gap 4 (5-15); BUN 21 mg/dL (7-18); BUN/Creat Ratio 16.7 RATIO (10-20); Calcium,Total 8.9 mg/dL (8.5-10.1); Chloride 107 mmol/L (98-107); Creatinine, Serum 1.26 mg/dL (0.55-1.02); EST Glomerular Filtration Rate 44 mL/min (>60); Est Glom Filt Rate - Afr Amer 53 mL/min (>60); Estimated Creatinine Clearance 35.25 ml/min; Glucose 88 mg/dL (74-106); Potassium 3.8 mmol/L (3.5-5.1); Sodium Level 140 mmol/L (136-145)
[2019-03-08] MEDS: Levothyroxine 25 MCG TABLET PO (06:09)
[2019-03-08] MEDS: Losartan Potassium 50 MG Tablet PO (06:09)
[2019-03-08 06:58] VITALS: PULSE 58
[2019-03-08 07:07] VITALS: PULSE 75; RESP 16
[2019-03-08] MEDS: Albuterol 2.5 MG/3 ML VIAL.NEB. INHALATION ×2 (07:07→13:24)
[2019-03-08] MEDS: Budesonide Respules 0.5 MG/2 ML AMPUL.NEB. INHALATION (07:07)
--- NOTE | 2019-03-08 10:49 | NURSING ---
VSA late due to patient off unit at stress
[2019-03-08 10:53] VITALS: BP 146/71; PULSE 72; RESP 18; TEMP 36.3; O2SAT 97
[2019-03-08] MEDS: hydroCHLOROthiazide 12.5mg 12.5 MG PO (11:00)
[2019-03-08] MEDS: Ascorbic Acid 500 MG Tablet PO (11:00)
[2019-03-08] MEDS: amLODIPine 10 MG Tablet PO (11:00)
[2019-03-08] MEDS: Isosorbide DN 30 MG Tablet PO (11:00)
[2019-03-08] MEDS: Carvedilol 12.5 MG Tablet PO (11:00)
[2019-03-08] MEDS: Aspirin 81 MG TAB.CHEW PO (11:00)
[2019-03-08] MEDS: DULoxetine Hcl 30 MG Capsule PO (11:00)
[2019-03-08] MEDS: Pantoprazole Sodium 40 MG Tablet PO (11:00)
[2019-03-08] MEDS: Fluticasone 0.05% 1 SPRAY NASAL.SRY NASAL (11:00)
[2019-03-08] MEDS: Amiodarone 200 MG Tablet PO (11:00)
[2019-03-08] MEDS: Ferrous Sulfate 325 MG Tablet PO (11:01)
[2019-03-08] MEDS: Calcium Carb/Vitamin D 1 TABLET Tablet PO (11:01)
--- NOTE | 2019-03-08 11:50 | CASEMGMT ---
Intro role of CM to patient and MYRICK form explained re: Observation status for treatment of chest pain. Explained hospitalization will be paid per? insurance policy for Outpatient billing?and condition will continue to be evaluated for Inpt necessity. Also let pt know that [facility] sends paper in the billing packet with their phone number if questions arise. Discussed Pharmacy section of MYRICK form and self administered medication guideline.? Pt verbalizes understanding and does not have further questions. Form signed and placed in chart, copy to pt. BEN VILLALPANDO BSN CM
--- NOTE | 2019-03-08 11:56 | DCINST_ITS ---
- Discharge Diagnoses Current Active Problems: Current Active and Chronic Problems (Last Reviewed 01/02/19 @ 14:32 by MARLENI LariosC) Acute kidney injury superimposed on chronic kidney disease (Chronic) Anemia (Chronic) Chest pain (Acute) You will use the following diet at home:: Cardiac Your food should be the consistency of: Regular Your liquids should be the consistency of: Regular/Thin Discharge Activity: Return to Normal Activity Weight Bearing Status: Weight bearing as tolerated Call your doctor if you observe: Shortness of breath, Dizziness, Chest pain Instructions: What Is Angina? Allergies/Adverse Reactions: Allergies No Known Allergies Allergy (Verified 03/07/19 09:38) Medications to take at Discharge Amlodipine [Norvasc] 10 mg PO DAILY 06/20/15 Aspirin [Aspirin, Baby] 81 mg PO DAILY@0800 06/20/15 Atorvastatin Calcium [Lipitor] 60 mg PO QHS 06/20/15 Calcium Carbonate/Vitamin D3 [Calcium 600-Vit D3 400 Caplet] 1 ea PO DAILY 06/20/15 Carvedilol [Coreg (Beta Raisa)] 12.5 mg PO BID 06/20/15 Cholecalciferol (VIT D3) [Vitamin D3] 1,000 unit PO DAILY 06/20/15 Dexlansoprazole [Dexilant] 60 mg PO DAILY 06/20/15 Montelukast [Singulair] 10 mg PO DAILY 06/20/15 Opcon-A 1 drp OP PRN PRN 06/20/15 Ranitidine [Zantac] 300 mg PO DAILY 06/20/15 Vitamin E 1,000 unit PO DAILY 06/20/15 rivaroxaban 20 mg tablet 20 mg PO DAILY 06/29/16 fluticasone 250 mcg-salmeterol 50 mcg/dose blistr powdr for inhalation 1 inh INHALATION Q12H 06/16/17 fluticasone propionate 50 mcg/actuation nasal spray,suspension 1 spray INTRANASAL BID #16 g 06/21/17 isosorbide dinitrate 30 mg tablet 30 mg PO QDAY tab 07/01/17 ascorbic acid (vitamin C) 500 mg capsule 500 mg PO QDAY cap 07/05/17 duloxetine 30 mg capsule,delayed release 30 mg PO QDAY 07/05/17 ferrous sulfate 325 mg (65 mg iron) tablet 325 mg PO QDAY tab 04/16/18 levothyroxine 25 mcg tablet 25 mcg PO QDAY #30 tab 07/08/17 amiodarone 200 mg tablet 200 mg PO QDAY #90 tab 06/20/18 Hydrochlorothiazide 1 tab PO DAILY 03/07/19 Levothyroxine [Synthroid] 50 mcg PO ROMERO 03/07/19 Losartan Potassium [Cozaar] 1 tab PO DAILY 03/07/19 Primary Care Physician: Zuri Gutierrez DO [Primary Care Provider] - Please follow up with your Primary Care Physician in: one week Test Results: Test results from this visit will be discussed in further detail at your follow- up appointment, if applicable. Proposed Discharge Date: 03/08/19
[2019-03-08 13:24] VITALS: PULSE 78; RESP 16
--- NOTE | 2019-03-08 13:48 | STRESSREP ---
Stress Test Report Date: 03-08-19 Procedure: Pharmacologic stress nuclear imaging study Indications: Chest pain; CAD; paroxysmal atrial fibrillation Consent: Per the patient Procedure: The patient underwent pharmacologic (Regadenoson) evaluation with a peak heart rate of 104 beats per minute (71 %predicted maximal heart rate) and a peak blood pressure of 172/70 mmHg. The baseline ECG demonstrated sinus rhythm; poor R wave progression. The peak pharmacologic ECG demonstrated diffuse subtle nonspecific ST/T wave abnormality. There were no cardiac dysrhythmias pretest, during pharmacologic infusion, or recovery. There was no complaint of chest discomfort during pharmacologic infusion or recovery. The examination was discontinued secondary to completion of protocol. Impression: 1. Pharmacologic (Regadenoson) evaluation 2. Peak pharmacologic ECG with diffuse subtle nonspecific ST/T wave abnormality. 3. There were no cardiac dysrhythmias pretest, during pharmacologic infusion, or recovery. 4. Nuclear images pending Myocardial perfusion imaging study: Technique: The patient was injected with 11.0 millicuries of technetium 99m Cardiolite and subsequently rest SPECT Cardiolite nuclear imaging was obtained in the horizontal long, vertical long, and short axis views. The patient underwent pharmacologic (Regadenoson) evaluation with a peak heart rate of 104 beats per minute (71 % percent predicted maximal heart rate) and a peak blood pressure of 172/70 mmHg. The patient was injected with 33.0 millicuries of technetium 99m Cardiolite and subsequently stress SPECT Cardiolite nuclear imaging was obtained in the horizontal long, vertical long, and short axis views. A gated Cardiolite study at peak stress was obtained. Interpretation: Rest and stress SPECT Cardiolite nuclear imaging status post realignment, normalization, and attenuation correction demonstrate areas of extracardiac/gastrointestinal tracer uptake and otherwise relative uniform myocardial perfusion/tracer uptake. There is end systolic thickening and brightening. The gated Cardiolite study demonstrates myocardial thickening and inward wall motion. The reported LVEF is 67 %. Impression: 1. Rest and stress SPECT Cardiolite nuclear imaging demonstrate areas of extracardiac/gastrointestinal tracer uptake otherwise relative uniform myocardial perfusion/tracer uptake with no myocardial perfusion changes considered diagnostic for associated stress-induced myocardial ischemia. 2. The gated Cardiolite study reports an LVEF of 67 %. This note was generated with [employer] software. It may contain incorrect words, spelling, and punctuation that were not noted in checking the note before signing.
--- NOTE | 2019-03-08 14:06 | DS.PCM_ITS ---
Discharge Date and Diagnosis - Problem List Patient Problems: Active and Suspected Problems (Last Reviewed 01/02/19 @ 14:32 by JESSICA Larios) Chest pain (Acute) Date of Admission: 03/07/19 Date of Discharge: 03/08/19 - Primary Discharge Diagnosis Active and Suspected Problems (Last Reviewed 01/02/19 @ 14:32 by JESSICA Larios) Chest pain (Acute) - Secondary Discharge Diagnosis Chronic Problems (Last Reviewed 01/02/19 @ 14:32 by JESSICA Larios) Acute kidney injury superimposed on chronic kidney disease (Chronic) Essential hypertension (Chronic) Anemia (Chronic) Leukopenia (Chronic) Carotid stenosis (Chronic) GERD (gastroesophageal reflux disease) (Chronic) Lung nodule (Chronic) Atherosclerotic heart disease of [place] coronary artery without angina pectoris (Chronic) Mild to moderate - Cardiac Cath @ [facility] 05/03/09 Moderate persistent asthma (Chronic) COPD (chronic obstructive pulmonary disease) (Chronic) Paroxysmal atrial fibrillation (Chronic) Hyperlipidemia (Chronic) Hospital Course and Treatment Imaging Results: 03/08/19 05:55 Nuclear Stress Test - Chemical [NM] AM (NON MEDS) Operations: None Procedures: Stress test Summary of Care Provided: The patient is a 74 year old F with an extensive past medical history as listed which includes a history of PE. She was admitted through the ED on 03/07/2019 with a complaint of sudden onset of chest pain was started early on the day of admission. Pain was sharp and retrosternal and aggravated by walking and relieved mildly by rest. She had associated shortness of breath and also admitted to lightheadedness and dizziness and she felt like passing out. He denied any palpitations or fever or chills. Daughter said patient had not been eating or drinking well. Review of symptoms otherwise negative. States she had chest pain like this some years ago when she was worked up and was negative. In the ED, vitals were essentially stable. Chemistry was significant for creatinine of 1.63 with a baseline of around 1.1. Initial troponin was negative and CBC was unremarkable. Chest x-ray showed hyperinflation with no acute abnormalities. Of note, patient said she had not been taking her Xarelto for about a month because she had a positive occult blood in her stool and she was asked to follow-up with the sketch artist Dr. Boo. She had just gotten into see him and he had scheduled her for colonoscopy in March. As such CTA of the chest was ordered which was negative for any PE. She has been admitted to manage for chest pain to rule out ACS. Troponins x2 were negative. Patient underwent a nuclear chemical stress test on 03/08/2019 which was negative. She remained stable and was discharged home on 03/08/2019. She is follow-up with her primary care doctor within 1 week. She is to continue seeing of her Xarelto as instructed by her primary care doctor, unless PCP instructs otherwise. She is to follow-up with gastroenterology for colonoscopy as previously scheduled. Patient seen and examined prior to discharge. She had no complaints and felt well. Review systems otherwise negative. Labs and vitals reviewed. Home medication reviewed and reconciled. o/e: Vital Signs Height 5 ft 5 in Weight: 144 lb 11.2 oz Weight in Pounds 144.7 lbs Pulse Ox 97 Temperature 97.4 F Pulse Rate [Standing] 63 Pulse Rate [Sitting] 61 Pulse Rate [Lying] 59 Pulse Rate 78 Respiratory Rate 16 Blood Pressure [Standing] 125/64 Blood Pressure [Sitting] 133/73 Blood Pressure [Lying] 146/64 Blood Pressure 146/71 Blood Pressure Position Sitting General: Alert, Oriented x3, Cooperative, No apparent distress HEENT: Atraumatic, PERRLA, EOMI, Normocephalic Oral: Moist Mucosa Neck: Supple, No JVD, Negative Carotid Bruits Lungs: Clear to auscultation, Normal air movement, No rhonchi, No wheeze, No rales Cardiovascular: Regular rate, Regular Rhythm, Normal S1, Normal S2, No murmurs Abdomen: Bowel Sounds Present, Soft, Non Tender, Non-Distended, No Hepato- splenomegaly Extremities: No clubbing, No cyanosis, No edema, Capillary Refill Less than 3 Seconds Skin: No rashes, No breakdown Musculoskeletal: No Tenderness to Palpation of Joints or Extremities Lymphatic: No Cervical, Supraclavicular, or Inguinal Adenopathy Neurological: Cranial nerves II-XII grossly intact Psych/Mental Status: Normal Affect, Appropriate, Alert and oriented to time, place, person, mood and affect Patient Problems: Active and Suspected Problems (Last Reviewed 01/02/19 @ 14:32 by Octavio Rogers NP-C) Chest pain (Acute) - Physical Exam Vitals/I&O's: Vital Signs Temp Pulse Resp BP Pulse Ox 97.4 F L 78 16 146/71 H 97 03/08/19 10:53 03/08/19 13:24 03/08/19 13:24 03/08/19 10:53 03/08/19 10:53 Oxygen Delivery Method Room Air Weight: 144 lb 11.2 oz Body Mass Index (BMI) 24.0 Intake and Output for Last 24 Hours 03/06/19 03/07/19 03/08/19 23:59 23:59 23:59 Intake Total 3100 / 3100 170 / 170 Balance 3100 / 3100 170 / 170 Laboratory Results 03/07/19 15:47: Troponin I < 0.015 03/07/19 18:44: Troponin I < 0.015 03/08/19 05:25: WBC 4.1 L, RBC 3.14 L, Hgb 9.7 L, Hct 31.1 L, MCV 99.0, MCH 30.9, MCHC 31.2 L, RDW Std Deviation 45.9 H, RDW Coeff of Reina 12.7, Plt Count 209, MPV 10.3, Immature Gran % (Auto) 0.000, Neut % (Auto) 49.0, Lymph % (Auto) 37.0, [place] % (Auto) 10.6 H, Eos % (Auto) 2.2, Baso % (Auto) 1.2 H, Absolute Neuts (auto) 2.0, Absolute Lymphs (auto) 1.50, Nucleated RBC % 0 03/08/19 05:25: Sodium 140, Potassium 3.8, Chloride 107, Carbon Dioxide 29.0, Anion Gap 4 L, BUN 21 H, Creatinine 1.26 H, Estim Creat Clear Calc 35.25, Est GFR (MDRD) Af Amer 53 L, Est GFR (MDRD) Non-Af 44 L, BUN/Creatinine Ratio 16.7, Glucose 88, Calcium 8.9 Current Medications Albuterol Sulfate (Ventolin Aerosols) 2.5 mg INHALATION Q6HWA.RT ZEKE Last Admin: 03/08/19 13:24 Dose: 2.5 mg Documented by: Amiodarone HCl (Cordarone) 200 mg PO DAILY [facility] Last Admin: 03/08/19 11:00 Dose: 200 mg Documented by: Amlodipine Besylate (Norvasc) 10 mg PO DAILY [facility] Last Admin: 03/08/19 11:00 Dose: 10 mg Documented by: Ascorbic Acid (Vitamin C) 500 mg PO DAILY [facility] Last Admin: 03/08/19 11:00 Dose: 500 mg Documented by: Aspirin (Aspirin, Baby) 81 mg PO DAILY@0800 [facility] Last Admin: 03/08/19 11:00 Dose: 81 mg Documented by: Atorvastatin Calcium (Lipitor) 80 mg PO QHS [facility] Last Admin: 03/07/19 20:39 Dose: 80 mg Documented by: Budesonide (Pulmicort Aerosol) 0.5 mg INHALATION Q12H.RT [facility] Last Admin: 03/08/19 07:07 Dose: 0.5 mg Documented by: Calcium/Vitamin D (Os-Tk 500mg + D) 1 tablet PO DAILY@1200 [facility] Last Admin: 03/08/19 11:01 Dose: 1 tablet Documented by: Carvedilol (Coreg) 12.5 mg PO BID [facility] Last Admin: 03/08/19 11:00 Dose: 12.5 mg Documented by: Cholecalciferol (Vitamin D) 1,000 unit PO DAILY [facility] Last Admin: 03/08/19 10:59 Dose: 1,000 unit Documented by: Duloxetine HCl (Cymbalta) 30 mg PO DAILY [facility] Last Admin: 03/08/19 11:00 Dose: 30 mg Documented by: Ferrous Sulfate (Ferrous Sulfate) 325 mg PO DAILY@1200 [facility] Last Admin: 03/08/19 11:01 Dose: 325 mg Documented by: Fluticasone Propionate (Flonase Nasal [place]) 1 spray NASAL BID [facility] Last Admin: 03/08/19 11:00 Dose: 1 spray Documented by: Glucagon () 1 mg IM .X1 PRN PRN Reason: Hypoglycemia Hydrochlorothiazide () 12.5 mg PO DAILY [facility] Last Admin: 03/08/19 11:00 Dose: 12.5 mg Documented by: Sodium Chloride () 250 mls @ 15 mls/hr IV .[id number] PRN PRN Reason: Saline Flush Dextrose (Dextrose 10%-Water) 250 mls @ 999 mls/hr IV X1 PRN; Protocol PRN Reason: HYPOGLYCEMIA Isosorbide Dinitrate (Isordil) 30 mg PO DAILY [facility] Last Admin: 03/08/19 11:00 Dose: 30 mg Documented by: Levothyroxine Sodium (Synthroid) 50 mcg PO Romero@0600 [facility] Levothyroxine Sodium (Synthroid) 25 mcg PO MoTuWeThFrSa@0600 [facility] Last Admin: 03/08/19 06:09 Dose: 25 mcg Documented by: Losartan Potassium (Cozaar) 50 mg PO DAILY [facility] Last Admin: 03/08/19 06:09 Dose: 50 mg Documented by: Montelukast Sodium (Singulair) 10 mg PO DAILY@1700 [facility] Last Admin: 03/07/19 16:21 Dose: 10 mg Documented by: Nitroglycerin (Nitrostat) 0.4 mg SUBLINGUAL Q5M PRN PRN Reason: Chest pain Last Admin: 03/07/19 10:28 Dose: 0.4 mg Documented by: Nitroglycerin (Nitrostat) 0.4 mg SUBLINGUAL Q5M PRN PRN Reason: CARDIAC/CHEST PAIN Last Admin: 03/07/19 20:17 Dose: 1 tab Documented by: Ondansetron HCl (Zofran) 4 mg IV Q8H PRN PRN PRN Reason: NAUSEA/VOMITING Pantoprazole Sodium (Protonix) 40 mg PO DAILY [facility] Last Admin: 03/08/19 11:00 Dose: 40 mg Documented by: Sodium Chloride () 10 - 40 ml IV UD PRN PRN Reason: SALINE FLUSH Discharge Diet: Low fat/ Low Cholesterol Discharge Activity: Return to Normal Activity Weight Bearing Status: Weight bearing as tolerated Call your doctor if you observe: Shortness of breath, Dizziness, Chest pain Home Medications: Medications to take at Discharge Amlodipine [Norvasc] 10 mg PO DAILY 06/20/15 Aspirin [Aspirin, Baby] 81 mg PO DAILY@0800 06/20/15 Atorvastatin Calcium [Lipitor] 60 mg PO QHS 06/20/15 Calcium Carbonate/Vitamin D3 [Calcium 600-Vit D3 400 [place]] 1 ea PO DAILY 06/20/15 Carvedilol [Coreg (Beta Raisa)] 12.5 mg PO BID 06/20/15 Cholecalciferol (VIT D3) [Vitamin D3] 1,000 unit PO DAILY 06/20/15 Dexlansoprazole [Dexilant] 60 mg PO DAILY 06/20/15 Montelukast [Singulair] 10 mg PO DAILY 06/20/15 Opcon-A 1 drp OP PRN PRN 06/20/15 Ranitidine [Zantac] 300 mg PO DAILY 06/20/15 Vitamin E 1,000 unit PO DAILY 06/20/15 rivaroxaban 20 mg tablet 20 mg PO DAILY 06/29/16 fluticasone 250 mcg-salmeterol 50 mcg/dose blistr powdr for inhalation 1 inh INHALATION Q12H 06/16/17 fluticasone propionate 50 mcg/actuation nasal spray,suspension 1 spray INTRANASAL BID #16 g 06/21/17 isosorbide dinitrate 30 mg tablet 30 mg PO QDAY tab 07/01/17 ascorbic acid (vitamin C) 500 mg capsule 500 mg PO QDAY cap 07/05/17 duloxetine 30 mg capsule,delayed release 30 mg PO QDAY 07/05/17 ferrous sulfate 325 mg (65 mg iron) tablet 325 mg PO QDAY tab 07/05/17 levothyroxine 25 mcg tablet 25 mcg PO QDAY #30 tab 07/08/17 amiodarone 200 mg tablet 200 mg PO QDAY #90 tab 06/20/18 Hydrochlorothiazide 1 tab PO DAILY 03/07/19 Levothyroxine [Synthroid] 50 mcg PO ROMERO 03/07/19 Losartan Potassium [Cozaar] 1 tab PO DAILY 03/07/19 Primary Care Physician: Zuri Gutierrez DO [Primary Care Provider] - Please follow up with your Primary Care Physician in: one week Patient Instructions: What Is Angina? Disposition: Home Minutes spent on discharge:: 35 Patient Condition:: Stable Medical Necessity - Tobacco Use Smoking Status: Former smoker Meaningful Use Info Meaningful Use Diagnoses (Choose all that apply): None applicable Code Visit OBSV E&M: 78928 Observation care discharge
== END 2019-03-08 14:05 | disposition home or self-care (01) ==
LOC: ED 10:15 → PCU 11:34
PROVIDERS: Admitting Provider Student in an Organized Health Care Education/Training Program; Emergency Provider Emergency Medicine; Family Provider Internal Medicine; PCP Internal Medicine; Referring Provider Student in an Organized Health Care Education/Training Program; Visit Provider Student in an Organized Health Care Education/Training Program
DX: R07.89 Other chest pain (principal); N17.9 Acute kidney failure, unspecified; I12.9 Hypertensive chronic kidney disease with stage 1 through stage 4 chronic kidney disease, or unspecified chronic kidney disease; N18.9 Chronic kidney disease, unspecified; J44.9 Chronic obstructive pulmonary disease, unspecified; I48.0 Paroxysmal atrial fibrillation; I48.20 Chronic atrial fibrillation, unspecified; E78.5 Hyperlipidemia, unspecified; J45.40 Moderate persistent asthma, uncomplicated; K21.9 Gastro-esophageal reflux disease without esophagitis; I25.10 Atherosclerotic heart disease of native coronary artery without angina pectoris; R91.1 Solitary pulmonary nodule; E03.9 Hypothyroidism, unspecified; D64.9 Anemia, unspecified; M79.7 Fibromyalgia; Z79.82 Long term (current) use of aspirin; Z79.899 Other long term (current) drug therapy; Z79.01 Long term (current) use of anticoagulants; Z87.891 Personal history of nicotine dependence; Z86.711 Personal history of pulmonary embolism
CPT/HCPCS: 36415; 71046; 71275; 78452; 80048; 84484; 85025; 93005; 93017; 94640; 96360; 96361; 99218; 99251; 99285; A9500; J7030; Q9967; A4216; G0378; G0463; J2785

== ENCOUNTER 2019-04-20 13:00 | Outpatient (RCR) | payer MEDICARE, SELFPAY ==
[2019-03-07 11:40] VITALS: BMI 24.0
--- NOTE | 2019-03-29 13:17 | HP.PTEVAL_ITS ---
Patient's Visit Information LUPE ALCOCER is a 74 year old F referred to Physical Therapy by Zuri Gutierrez DO with a diagnosis of Generalized Weakness. Date of Evaluation: 03/28/19 Physical Therapist: Rivas Saxena DPT - Visit Plan Frequency: 2x /Week Duration: 4-6 Weeks Plan: Anticipated Interventions: Therapeutic Exercise, Therapeutic Activities, Neuromuscular reeducation, Gait training. Plan: start with cardio on nustep or bike increasing heart rate promoting increase tolerance to walking. Add in BLE and BUE strengthening, static and dynamic balance training. Progress HEP for home. Start progressing to gym exercises as able for BLE and BUE strengthening progressing to independent program. - Subjective Findings: Pt. is here today for her initial evaluation with diagnosis of generalized weakness. Pt/. complains of increased general fatigue, recent chest painPMH: COPD, PE, on blood thinners, chest pains. Pt. also has been having difficulty with BP changes, especially with positional changes. Pt. to see cardologist about her hypotension episodes. Pt. reports dizziness that has resulted in falls. No injuries. Pt. is now livign with son and daughter in law. pt. does not drive. 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 Daughter in law reports she has not been doing much, only getting out of the house for occassional grocery shopping. Pt. denies pain this date. Pt. reports no N/T. Pt. reports no neuropothy. pt. and daughter in law are hopeful that she get get an exercise program for home and gym for silver sneakers type program. Pt. is hopeful to increase cardiovascular fitness and strength in order to increase independence in home and community. - Objective POSTURE: PT. has slight FH posture, slight rounded shoulder and slight R lateral lean (wt. shift onto R LE). Pt. is able to correct with VCing. PALAPTION: Pt. has no pain with palpation of BLEs. No Howman's signs. NEURO: normal throughout BLEs with sensation and DTR. ROM: Pt. has tight HS and hip flexors bilaterally. Pt. has tight hip ER motions. Pt. has min loss with all lumbar ROM. B shoulders- with in normal limits and with function ER/IR. MMT: Pt. has general 4/5 strength in bilateral LEs, except 4-/5 B hip abd. B shoulders- 4/5 throughout. GAIT: Pt. ambulates without AD, but has frequent balance inconsistencies to R side, but is able to self correct wtih stepping stratagies. Issues were more noticable with increased walking. 6MWT- 987feet no AD, mild fatigue. - Balance Scores Functional Gait Assessment Score: 20 % Disability: 33.3400 - Goals Goal 1:: LTG: Pt. to be I with HEP. Goal Time Frame: 4-6 Weeks Goal 2:: STG: pt. to increase increase B UE and LE sterngth by 1/2 grade. Goal Time Frame: 2-4 Weeks Goal 3:: LTG: Pt. have increased FGA to 23/30 indicating reduce risk for falls. Goal Time Frame: 4-6 Weeks Goal 4:: LTG: Pt. to ambulate 1500ft. during 6 MWT indicating increased overall functional endurance. Goal Time Frame: 4-6 Weeks Goal 5:: STG: Pt. has increased HS length to atleast 80deg in 90/90 positioning bilaterally. Goal Time Frame: 2-4 Weeks Goal 6:: LTG: Pt. be I with gym exercise program to allow for consistent healthy lifestyle and reduce risk for future decline. Goal Time Frame: 4-6 Weeks - Rehabilitation Potential Physical Therapy Diagnosis: Pt. has signs and symptoms consistent with generalized weakness and imbalance. Pt. has difficulty with imbalance with prolonged walking. Pt. would benefit from PT to increse general strength in BLEs and UEs, to improve static and dynamic balance and increased cardiovascular fitness. Rehabilitation Potential: Excellent - Anticipated Interventions Patient/Client Instruction: Educate patient on: Condition, Plan of Care, Risk Factors, Benefits of Fitness Program For the Purpose of:: To foster healthy habits, To improve decision making, To facilitate caregiver knowledge, To improve self management, To prevent re- injury, To improve ability to perform tasks related to life management, To improve tolerance to ADL's Therapeutic Exercise to Include: Strength training, Power training, Postural training, Flexibilty training For the Purpose of:: To increase ROM, To improve nutrient delivery to tissue, To increase oxygenation perfusion, To improve muscle performance and motor function, To improve ability to perform ADL's, To improve performance and independence with ADL's, To improve gait and locomotor functions, To improve health of tissue, To decrease soft tissue restriction, To increase flexibility/ROM, To improve endurance, To improve balance, To improve safety with gait, To assume or resume ADL's Thank you for the opportunity to evaluate your patient. For Medicare and Medicare HMO plans, please review the plan of care and approve it. It will need to be FAXED BACK to us at [phone] for Medicare purposes. For Medicare only, by signing this I certify the plan of care. Please let me know if there are questions or concerns regarding this plan of care. Physician Signature: Date:
== END 2019-04-20 19:00 | disposition home or self-care (01) ==
LOC: PT 13:00
PROVIDERS: Family Provider Internal Medicine; PCP Internal Medicine; Referring Provider Internal Medicine; Visit Provider Internal Medicine
DX: R53.1 Weakness (principal)
CPT/HCPCS: 97110; 97112; 97161; 97530

== ENCOUNTER 2019-04-20 15:33 | Observation (INO) | payer MEDICARE, SELFPAY ==
[2019-03-07 11:40] VITALS: BMI 24.0
[2019-04-20] VITALS (7 sets, daily range): BP systolic 141–169; BP diastolic 61–78; PULSE 60–70; RESP 16–19; TEMP 36.5–36.8; O2SAT 95–100; BMI 25.6; BMI 23.1
--- NOTE | 2019-04-20 15:56 | EKG12_ITS ---
Test Reason : CP Blood Pressure : / mmHG Vent. Rate : 056 BPM Atrial Rate : 056 BPM P-R Int : 000 ms QRS Dur : 090 ms QT Int : 458 ms P-R-T Axes : 000 003 022 degrees QTc Int : 441 ms Sinus vs. Ectopic Atrial Rhythm Confirmed by MONICA JC, EMILY ([id number]), video tape editor SINAN SCHWAB ([id number]) on 04/25/2019 8:00:33 AM Referred By: HUY/EARNESTINE/UGO/POWER Confirmed By:EMILY ANDERSON MD
--- NOTE | 2019-04-20 16:00 | RAD_ITS ---
STUDY: X-RAY CHEST REASON FOR EXAM: Female, 74 years old. hypotension and dizziness TECHNIQUE: 1 view COMPARISON: Prior chest radiograph of March 07, 2019 FINDINGS: The lungs are clear and expanded. There is no demonstrated pleural abnormality. Normal size heart. Normal mediastinum and iglesia. Normal visualized pulmonary arteries. There is atherosclerotic calcification of the aortic arch with tortuosity. Normal visualized thoracic spine. Normal visualized ribs, clavicles, and shoulders. There is no demonstrated abnormality of the visualized soft tissue structures of the upper abdomen. RAD/Chest 1 View (Portable) IMPRESSION: No acute cardiopulmonary findings or changes. Negative for new consolidation, focal atelectasis, cardiomegaly or pleural effusion. Electronically Signed: Louise Otero MD at 16:25 EST , Service support ,
[2019-04-20] MEDS: Aspirin 81 MG TAB.CHEW 324 MG PO (16:15)
[2019-04-20 16:29] LABS: Absolute Lymphocyte Count 1.37 X10^3/uL (0.83-4.51); Absolute Neutrophil Count 3.1 X10^3/uL (2.0-7.7); Basophil# 0.04 X10^3/uL; Basophil% 0.8 % (0-1); Eosinophil# 0.18 X10^3/uL; Eosinophils% 3.5 % (0-5); Hematocrit 36.6 % (37-47); Hemoglobin 11.7 g/dL (12.0-15.0); Lymphocyte # 1.37 X10^3/ul (4.0); Lymphocyte % 26.7 % (19-41); Mean Corpuscular Hgb 30.4 pg (27.0-32.0); Mean Corpuscular Volume 95.1 fL (81-99); Mean Platelet Vol. 10.4 fl (6.2-12.0); Monocyte# 0.46 X10^3/uL; Monocyte% 8.9 % (0-10); NRBC Flagged by Analyzer 0 % (0-5); Neutrophil # 3.07 X10^3/uL (2.7-7.7); Neutrophil % 59.7 % (47-70); Platelet Count 231 K/mm3 (150-450); RBC Distribution Width CV 12.7 % (11.6-14.6); RBC Distribution Width SD 43.8 fl (35.1-43.9); Red Blood Count 3.85 M/mm3 (4.2-5.4); White Blood Count 5.1 K/mm3 (4.4-11.0)
[2019-04-20 16:43] LABS: D-Dimer Quantitative (DVT/PE) 2.01 FEU/ug/m (0.27-0.49)
--- NOTE | 2019-04-20 16:43 | ED.DCSUM_ITS ---
- ER Visit Summary Date of Service: 04/20/19 Chief Complaint: Low blood pressure History of Present Illness: The patient is a 74 F presenting with low blood pressure at physical therapy. Per family her blood pressure was running with a systolic of 85 at physical therapy. She went to Dr Gutierrez's office and was advised to come to the ED. She complains of dizziness with standing. She initially denied chest pain but later stated that she has some mild chest pain. She has shortness of breath and cough which has been chronic. She was admitted in February 2019 and had a negative nuclear stress at that time. She is on multiple blood pressure medications. Physical Examination: Vitals are stable. Blood pressure 141/69. Patient is afebrile. Alert no acute distress. HEENT exam is unremarkable. Neck is supple. Lungs are clear and equal bilaterally. Heart is regular rate and rhythm. Abdomen is soft nontender nondistended. Extremities are unremarkable. Skin is warm and dry. No focal neurologic deficit. Remainder of exam is unremarkable. Emergency Department Course and Treatment: EKG sinus rate of 56. Chest x-ray showed no acute cardiopulmonary findings or changes. Negative for new consolidation, focal atelectasis, cardiomegaly or pleural effusion. CBC normal except for hemoglobin 11.7. Chemistries normal severe BUN 25, creatinine 1.78. Troponin negative. D-dimer 2.01. Patient was given aspirin on arrival. Due to elevated creatinine unable to obtain CTA chest at this time to rule out PE. Discussed with the hospitalist for admission. Disposition: Admission Impression: Near syncope This note was generated with [employer] dictation software. It may contain incorrect words, spelling, and punctuation that were not noted in review of the chart prior to signing ED Disposition - Plan for ED Patient: Referrals: Zuri Gutierrez DO [Primary Care Provider] -
[2019-04-20 16:44] LABS: Anion Gap 5 (5-15); BUN 25 mg/dL (7-18); Calcium,Total 9.6 mg/dL (8.5-10.1); Chloride 107 mmol/L (98-107); Creatinine, Serum 1.78 mg/dL (0.55-1.02); EST Glomerular Filtration Rate 30 mL/min (>60); Est Glom Filt Rate - Afr Amer 36 mL/min (>60); Estimated Creatinine Clearance 21.93 ml/min; Glucose 88 mg/dL (74-106); Potassium 3.8 mmol/L (3.5-5.1); Sodium Level 141 mmol/L (136-145)
--- NOTE | 2019-04-20 17:29 | PCM.HP.STD ---
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 transplanted heart: inupiat heart Qualified Code(s): I25.10 - Atherosclerotic heart disease of inupiat coronary artery without angina pectoris Comment: Mild to moderate - Cardiac Cath @ [facility] 05/03/09 (10) Moderate persistent asthma Status: Chronic Qualifiers: Asthma complication type: uncomplicated Qualified Code(s): J45.40 - Moderate persistent asthma, uncomplicated (11) Chest pain Status: Chronic Qualifiers: Chest pain type: unspecified Qualified Code(s): R07.9 - Chest pain, unspecified (12) COPD (chronic obstructive pulmonary disease) Status: Chronic (13) Paroxysmal atrial fibrillation Status: Chronic (14) Hyperlipidemia Status: Chronic Qualifiers: Hyperlipidemia type: unspecified Qualified Code(s): E78.5 - Hyperlipidemia, unspecified (15) Dementia Status: Chronic History of Present Illness Date of Admission: 04/20/19 Chief Complaint: lightheadedness The patient is a 74 year old F with a past medical history of essential hypertension, chronic anemia, chronic leukopenia, carotid stenosis, GERD, chronic lung nodule, atherosclerotic heart disease of inupiat artery, moderate persistent asthma, COPD, paroxysmal atrial fibrillation and hyperlipidemia who presented to the emergency department at [facility] on 04/20/2019 complaining of lightheadedness which she experienced while at physical therapy. She also states she had epigastric/lower sternal chest pain that lasted until she came to the ED (about 1 hour and 40 minutes). She was sitting at the time doing leg extensions. She has been lightheaded intermittently for the past year. The lightheadedness is not always associated with an upright posture. She denies palpitations and denies diaphoresis with these episodes. She denies vertigo. She was recently an inpatient at [facility] in February 2019 and at that time was evaluated for atypical chest pain and lightheadedness. When she gets these episodes she feels as though she is going to pass out. Serum creatinine was elevated at 1.63 at admission in February and at discharge was 1.26. She had a CTA of the chest in February that was negative for pulmonary embolus. She does have a history of PE in the past. She had a nuclear chemical stress test on 03/08/2019 which was negative for ischemia. She was instructed to resume Xarelto but her daughter tells me that she has not taken it since February. She is on several antihypertensives which include amlodipine 10 mg, carvedilol 12.5 mg twice daily, hydrochlorothiazide and losartan. She is also on an oral nitrate. Vital signs at presentation to the emergency room were temperature 97.7, pulse rate 60, blood pressure 141/69, respiratory rate 16 and she was 99% saturated on room air. The blood pressure was 161/68 lying down and decreased to 145/75 standing up. We were told the systolic BP in therapy was in the 80's. CBC shows a hemoglobin of 11.7 which is up from 9.7 on 03/08/2019. More likely than not this is secondary to dehydration. The white blood cell count is 5.1 and the platelets are within normal limits. She has normochromic normocytic indices. The d-dimer was 2.01. BMP shows an elevated creatinine at 1.78 and it was 1.26 at discharge from the hospital in February. Troponin is less than 0.015. The EKG showed sinus rhythm with no suspicious ST or T wave changes. The chest x-ray showed no infiltrates, pleural effusions or pulmonary vascular congestion. She is being admitted to a monitored bed on PCU for near syncope. Past Medical History Past Medical History (Chronic Problems): Chronic Problems (Last Reviewed 04/20/19 @ 18:11 by Irina Carrillo DO) Dementia (Chronic) Essential hypertension (Chronic) Anemia (Chronic) Carotid stenosis (Chronic) GERD (gastroesophageal reflux disease) (Chronic) Lung nodule (Chronic) Atherosclerotic heart disease of inupiat coronary artery without angina pectoris (Chronic) Mild to moderate - Cardiac Cath @ [facility] 05/03/09 Moderate persistent asthma (Chronic) Chest pain (Chronic) COPD (chronic obstructive pulmonary disease) (Chronic) Paroxysmal atrial fibrillation (Chronic) Hyperlipidemia (Chronic) Medical History: Medical History (Last Reviewed 04/20/19 @ 18:11 by Irina Carrillo DO) Essential hypertension (Chronic) I10 Carotid stenosis (Chronic) I65.29 GERD (gastroesophageal reflux disease) (Chronic) K21.9 Lung nodule (Chronic) R91.1 Atherosclerotic heart disease of inupiat coronary artery without angina pectoris (Chronic) I25.10 Mild to moderate - Cardiac Cath @ [facility] 05/03/09 Moderate persistent asthma (Chronic) J45.40 Chest pain (Chronic) R07.9 COPD (chronic obstructive pulmonary disease) (Chronic) J44.9 Paroxysmal atrial fibrillation (Chronic) I48.0 Hyperlipidemia (Chronic) E78.5 SPINAL INJECTIONS FOR PAIN MANAGEMENT Fibromyalgia M79.7 History of pulmonary embolism Z86.711 Right Iron deficiency (Resolved) E61.1 Hypertension (Inactive) I10 Allergies No Known Allergies Allergy (Verified 04/20/19 17:10) Home Medications: Ambulatory Orders Medication Instructions Recorded Amlodipine [Norvasc] 5 mg PO QHS 06/20/15 Aspirin [Aspirin, Baby] 81 mg PO DAILY@1200 06/20/15 Atorvastatin Calcium [Lipitor] 80 mg PO QHS 06/20/15 Cholecalciferol (VIT D3) [Vitamin 2,000 unit PO DAILY@1200 06/20/15 D3] Montelukast [Singulair] 10 mg PO DAILY 06/20/15 isosorbide dinitrate 30 mg tablet 30 mg PO DAILY tab 07/01/17 ascorbic acid (vitamin C) 500 mg 500 mg PO DAILY@1200 cap 07/05/17 capsule ferrous sulfate 325 mg (65 mg 325 mg PO DAILY@1200 tab 07/05/17 iron) tablet Losartan Potassium [Cozaar] 50 mg PO DAILY 03/07/19 Amiodarone HCl 200 mg PO DAILY 04/20/19 Calcium (Elemental) [Os-Tk 500] 500 mg PO DAILY 04/20/19 Carvedilol 12.5 mg PO BID 04/20/19 Denosumab [Prolia] 60 mg SQ UD 04/20/19 Dexlansoprazole [Dexilant] 60 mg PO DAILY 04/20/19 Duloxetine HCl 60 mg PO DAILY 04/20/19 Ipratropium [place] 2 spry NASAL TID PRN PRN 04/20/19 Levalbuterol Tartrate 2 puff IH Q6H PRN PRN 04/20/19 [Levalbuterol Tartrate Hfa] Levothyroxine Sodium 50 mcg PO SUFRSA 04/20/19 Levothyroxine Sodium [Synthroid] 25 mcg PO MOTUWETH 04/20/19 Loratadine [Claritin] 10 mg PO QHS 04/20/19 Mometasone Furoate [Asmanex Hfa] 2 puff PO BID 04/20/19 Multivitamin with Minerals 1 tab PO DAILY 04/20/19 [Multiple Vitamin] Vitamin E (Dl,Tocopheryl Acet) 400 unit PO DAILY 04/20/19 [Vitamin E] Surgical History: Surgical History (Last Reviewed 04/20/19 @ 18:11 by Irina Carrillo DO) History of foot surgery Z98.890 History of hand surgery Z98.890 History of mandibular surgery Z98.890 History of sinus surgery Z98.890 mole removal Surgical History: - Psychiatric History: No pertinent psych hx 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 CAMPAIGN MANAGER History: No pertinent DIGITAL CAMPAIGN MANAGER history Lives: With Family Smoking Status: Former smoker Tobacco Use: Non-smoker Alcohol: None Drugs: None - *Family History Maternal Family History: Family History (Last Reviewed 04/20/19 @ 18:11 by Irina Carrillo DO) Sister Breast cancer Brother Heart disease Sister Diabetes History Items: No pertinent history Paternal Family History: Family History (Last Reviewed 04/20/19 @ 18:11 by Irina Carrillo DO) Sister Breast cancer Brother Heart disease Sister Diabetes History Items: No pertinent history Review of Systems Constitutional: Reports: Weakness - chronic. Denies: Chills, Fever, Weight Change Eyes: Denies: Blurred vision HEENT: Denies: Difficulty Swallowing, Head Aches, Sinus Congestion, Sinus Drainage, Sore Throat Cardiovascular: Reports: Chest Pain, Light Headedness. Denies: Edema, Palpitations, Syncope Respiratory: Denies: Cough, Shortness of Breath, Shortness of breath at rest, Sputum production Gastrointestinal: Denies: Abdominal Pain, Nausea, Vomiting Genitourinary: Denies: Dysuria Musculoskeletal: Denies: Joint Pain, Joint Tenderness Skin: Denies: Rash, Wounds Neurological: Reports: Confusion - chronic. Denies: Slurred speech, Focal weakness, Numbness, Tingling, Tremor, Seizures Psychiatric: Denies: Anxiety, Depression, Homicidal Ideations, Suicidal Ideations Hematologic/ Lymphatic: Reports: Hx of blood clot. Denies: Easy Bruising, Easy Bleeding VTE Information - Inpt Only VTE Present on Admission: No VTE Mechan Device Prophylaxis: Knee High ANCA Hose VTE Pharm Prophylaxis ordered?: Yes Patient Problems: Active and Suspected Problems (Last Reviewed 04/20/19 @ 18:11 by Irina Carrillo DO) Near syncope (Acute) Dehydration (Suspected) - Physical Exam Vitals/I&O's: Vital Signs Temp Pulse Resp BP Pulse Ox 97.7 F L 63 16 161/68 H 99 04/20/19 15:34 04/20/19 16:53 04/20/19 15:34 04/20/19 16:53 04/20/19 16:14 Oxygen Delivery Method Room Air Weight: 140 lb Body Mass Index (BMI) 25.6 Intake and Output for Last 24 Hours 04/18/19 04/19/19 04/20/19 23:59 23:59 23:59 Intake Total 500 / 500 Balance 500 / 500 General: Alert, Cooperative, No apparent distress, Well developed, Well nourished HEENT: Atraumatic, PERRLA, EOMI, Normocephalic Oral: Dry Mucosa Neck: Supple, No JVD, Negative Carotid Bruits, No Nodes, Trachea Midline Lungs: Clear to auscultation, Normal air movement Cardiovascular: Regular rate, Regular Rhythm, Normal S1, Normal S2, No murmurs, No rub noted, No Gallop Abdomen: Bowel Sounds Present, Soft, Non Tender, Non-Distended, - - No guarding with palpation Extremities: No clubbing, No cyanosis, No edema, Capillary Refill Less than 3 Seconds, Peripheral Pulses Normal, Tenderness - in both calves which is chronic. She has a negative Homans BL., - Skin: No rashes, No breakdown Musculoskeletal: Arthritic Changes Neurological: Cranial nerves II-XII grossly intact, Neuro grossly intact - No focal neurologic deficits Psych/Mental Status: Normal Affect, Appropriate Laboratory Results 04/20/19 16:15: WBC 5.1, RBC 3.85 L, Hgb 11.7 L, Hct 36.6 L, MCV 95.1, MCH 30.4, MCHC 32.0, RDW Std Deviation 43.8, RDW Coeff of Reina 12.7, Plt Count 231, MPV 10.4, Immature Gran % (Auto) 0.400, Neut % (Auto) 59.7, Lymph % (Auto) 26.7, [place] % (Auto) 8.9, Eos % (Auto) 3.5, Baso % (Auto) 0.8, Absolute Neuts (auto) 3.1, Absolute Lymphs (auto) 1.37, Nucleated RBC % 0 04/20/19 16:15: Sodium 141, Potassium 3.8, Chloride 107, Carbon Dioxide 29.0, Anion Gap 5, BUN 25 H, Creatinine 1.78 H, Estim Creat Clear Calc 21.93, Est GFR (MDRD) Af Amer 36 L, Est GFR (MDRD) Non-Af 30 L, BUN/Creatinine Ratio 14.0, Glucose 88, Calcium 9.6, Troponin I < 0.015 04/20/19 16:15: D-Dimer Quant (PE/DVT) 2.01 H* Assessment/Plan All Active Problems (Last Reviewed 04/20/19 @ 18:11 by Irina Carrillo DO) Acute kidney injury superimposed on chronic kidney disease (Acute) Near syncope (Acute) Iron deficiency (Resolved) Leukopenia (Resolved) Impressions 1. Near syncope with JOSH on CRF stage III-suspect due to IV volume depletion. Recent stress negative and no significant dysrhythmia during the admission is February 2. Elevated d-dimer with a history of pulmonary embolism, not currently on anticoagulation 3. Dehydration DC the Amlodipine Hydrate Recheck the orthostatics in the AM VQ in the AM Lovenox 1 mg SQ Q 12H until the results of the VQ are available Recheck the CBC and the CMP in the AM Code Visit Inpatient E&M: 21712 Init Hosp L2
[2019-04-20] MEDS: Enoxaparin 60 MG/0.6 ML Syringe SC (20:47)
[2019-04-20] MEDS: 0.9% Normal Saline 1,000 ML 100 ML IV (20:47)
[2019-04-20] MEDS: 0.9% Saline Lock 10 ML Syringe IV (20:48)
[2019-04-20] MEDS: Fluticasone 0.05% 1 SPRAY NASAL.SRY NASAL (22:43)
[2019-04-20] MEDS: Loratadine 10 MG Tablet PO (22:44)
[2019-04-20] MEDS: Atorvastatin Calcium 80 MG Tablet PO (22:44)
[2019-04-20] MEDS: Carvedilol 12.5 MG Tablet PO (22:44)
[2019-04-20] MEDS: BENZOCAINE/MENTHOL 1 LOZENGE MUCOUS MEM (22:48)
[2019-04-21] VITALS (11 sets, daily range): BP systolic 94–151; BP diastolic 42–75; PULSE 57–68; RESP 15–18; TEMP 36.6–36.8; O2SAT 95–100
--- NOTE | 2019-04-21 05:55 | NM_ITS ---
CLINICAL: 74-year-old female with reported history of shortness of breath and elevation of the d-dimer. VENTILATION-PERFUSION LUNG SCINTIGRAPHY COMPARISON: Plain film chest radiograph 04/20/2019 FINDINGS: The patient was administered 50.0 mCi 99m Tc DTPA aerosol. The aerosol ventilation study demonstrates heterogeneous ventilation in the bilateral lung trivedi without corresponding radiographic changes visualized on review of plain film chest x-ray dated 04/20/2019. Central clumping of the aerosol is identified in the bilateral hemithorax. Following the intravenous administration of 6.0 mCi of 99m Tc MAA, the pulmonary perfusion study reveals matching non-uniform perfusion in the right and left lungs correlating with the previously defined ventilation pattern. No moderate subsegmental or large segmental ventilation-perfusion mismatches are noted. There are regions of retained normal perfusion visualized. NM/Lung Scan Vent/Perf IMPRESSION: 1. VERY LOW PROBABILITY FOR PULMONARY EMBOLUS (<10%) 99m Tc DTPA aerosol ventilation / 99m Tc MAA pulmonary perfusion imaging examination, according to PIOPED II interpretive criteria with regard given to the presence of > 2 ventilation-perfusion matches without corresponding radiographic changes. (Sotsman et al, Radiology 246: 941, 2008 Sodennis et al, J Nucl Med 49: 1741, 2008). 2. Central clumping of the aerosol may be secondary to obstructive airway mechanics and or clinical tachypnea. Electronically Signed: Dom Sorto DO at 12:03 EST Tel , Service support ,
[2019-04-21] MEDS: 0.9% Normal Saline 1,000 ML 100 ML IV (06:17)
[2019-04-21 06:24] LABS: Hematocrit 31.5 % (37-47); Hemoglobin 10.1 g/dL (12.0-15.0); Mean Corp Hgb Conc 32.1 g/dL (32-36); Mean Corpuscular Hgb 30.5 pg (27.0-32.0); Mean Corpuscular Volume 95.2 fL (81-99); Mean Platelet Vol. 10.5 fl (6.2-12.0); Platelet Count 207 K/mm3 (150-450); RBC Distribution Width CV 12.7 % (11.6-14.6); Red Blood Count 3.31 M/mm3 (4.2-5.4); White Blood Count 4.3 K/mm3 (4.4-11.0)
[2019-04-21 06:49] LABS: BUN 19 mg/dL (7-18); Creatinine, Serum 1.23 mg/dL (0.55-1.02); EST Glomerular Filtration Rate 45 mL/min (>60); Estimated Creatinine Clearance 36.11 ml/min; Glucose 77 mg/dL (74-106)
[2019-04-21 06:50] LABS: ALB/GLOB Ratio 1.2 RATIO (0.9-2.4); AST(SGOT) 19 U/L (15-37); Alanine Aminotransfer ALT/SGPT 17 U/L (13-56); Albumin, Serum 3.3 g/dL (3.2-5.0); Alkaline Phosphatase 56 U/L (45-117); Anion Gap 5 (5-15); BUN/Creat Ratio 15.4 RATIO (10-20); Calcium,Total 9.1 mg/dL (8.5-10.1); Chloride 111 mmol/L (98-107); Est Glom Filt Rate - Afr Amer 55 mL/min (>60); Globulin 2.7 g/dL (2.2-4.2); Magnesium 1.7 mg/dL (1.6-2.6); Phosphorus 3.7 mg/dL (2.5-4.9); Potassium 3.6 mmol/L (3.5-5.1); Sodium Level 141 mmol/L (136-145)
[2019-04-21] MEDS: Albuterol 2.5 MG/3 ML VIAL.NEB. INHALATION ×2 (07:36→13:19)
[2019-04-21] MEDS: Budesonide Respules 0.5 MG/2 ML AMPUL.NEB. INHALATION (07:36)
[2019-04-21] MEDS: Calcium Carb/Vitamin D 1 TABLET Tablet PO (07:59)
[2019-04-21] MEDS: Aspirin 81 MG TAB.CHEW PO (08:00)
[2019-04-21] MEDS: Multivitamins,Ther W-Minerals Tablet 1 TABLET PO (08:00)
[2019-04-21] MEDS: guaiFENesin 10 ML UDC (200MG/10ML) PO (08:04)
[2019-04-21] MEDS: Acetaminophen 325 MG Tablet 650 MG PO (08:16)
[2019-04-21] MEDS: Fluticasone 0.05% 1 SPRAY NASAL.SRY NASAL (10:01)
[2019-04-21] MEDS: Ascorbic Acid 500 MG Tablet PO (10:02)
[2019-04-21] MEDS: Amiodarone 200 MG Tablet PO (10:02)
[2019-04-21] MEDS: DULoxetine Hcl 60 MG Capsule PO (10:03)
[2019-04-21] MEDS: Pantoprazole Sodium 40 MG Tablet PO (10:03)
[2019-04-21] MEDS: Montelukast 10 MG Tablet PO (10:03)
[2019-04-21] MEDS: Isosorbide DN 30 MG Tablet PO (11:46)
[2019-04-21] MEDS: Vitamin E 400 UNITS Capsule PO (11:46)
[2019-04-21] MEDS: Carvedilol 12.5 MG Tablet PO (11:46)
[2019-04-21] MEDS: Ferrous Sulfate 325 MG Tablet PO (11:46)
[2019-04-21] MEDS: Levothyroxine 50 MCG Tablet PO (11:47)
--- NOTE | 2019-04-21 12:15 | CASEMGMT ---
RN KATELYNN WINDOWS INFRASTRUCTURE ENGINEER CM to room to meet with patient for initial transition planning/care coordination assessment. KWASI PACE introduced self and role at [facility]. Pt voices understanding and consents to assessment at this time. Pt resting in bed in no distress at this time. Pt is A/O. Pt states she has some memory issues and is not always able to recall certain things at times, but pt able to answer all questions appropriately at this time. Care providers, pharmacy, and demographics verified/updated at this time. PCP: Dr Gutierrez Specialists: Dr Cota--cardiology. Dr Metzger--pulmonology Preferred Pharmacy: [facility] Insurance: [employer] AGUSTIN Prescription Benefit: Yes Living Will/HPOA: has both LW and Healthcare POA, who is her son Elier. She is aware copies are not on file @ [facility]. She states Elier has a copy and that she will ask him if he can bring them in. LNOK: Son, Elier Lopez. Dtr-in-law, Caren Lopez. Living Arrangements: Lives with her Elier and Caren in one-story home w/one step to enter. States she is independent with ADL's. She states she does her own laundry and helps with dishes. She states Caren helps her with medication mgmt, appts, meals, and cleaning. Transportation: Elier or Caren. DME: has a shower chair and cane available but does not use them. Has a CPAP. Pt states no need for further DME at this time. HHC/SNF: No history of either. Pt currently going to [facility] for [facility] therapy and wishes to continue this at discharge. States she wishes to return home and has no concerns with going home w/her son and dtr-in-law. CM to follow for any discharge planning/needs. Pt voices no concerns/needs at this time. Advised pt to ask for CM if any further questions/concerns/needs arise. Voices understanding. PLAN: Home w/family support and discharge plans in place. Leonard CHILEL RN, CM
--- NOTE | 2019-04-21 13:43 | PCM.DC ---
- Discharge Diagnoses Current Active Problems: Current Active and Chronic Problems (Last Reviewed 04/20/19 @ 18:11 by Irina Carrillo DO) Near syncope (Acute) Dementia (Chronic) You will use the following diet at home:: No restrictions Discharge Activity: Return to Normal Activity Call your doctor if you observe: Shortness of breath, Dizziness, Fainting spells, Chest pain Allergies/Adverse Reactions: Allergies No Known Allergies Allergy (Verified 04/20/19 17:10) Medications to take at Discharge Aspirin [Aspirin, Baby] 81 mg PO DAILY@1200 06/20/15 Atorvastatin Calcium [Lipitor] 80 mg PO QHS 06/20/15 Cholecalciferol (VIT D3) [Vitamin D3] 2,000 unit PO DAILY@1200 06/20/15 Montelukast [Singulair] 10 mg PO DAILY 06/20/15 isosorbide dinitrate 30 mg tablet 30 mg PO DAILY tab 07/01/17 ascorbic acid (vitamin C) 500 mg capsule 500 mg PO DAILY@1200 cap 07/05/17 ferrous sulfate 325 mg (65 mg iron) tablet 325 mg PO DAILY@1200 tab 07/05/17 Losartan Potassium [Cozaar] 50 mg PO DAILY 03/07/19 Amiodarone HCl 200 mg PO DAILY 04/20/19 Calcium (Elemental) [Os-Tk 500] 500 mg PO DAILY 04/20/19 Carvedilol 12.5 mg PO BID 04/20/19 Denosumab [Prolia] 60 mg SQ UD 04/20/19 Dexlansoprazole [Dexilant] 60 mg PO DAILY 04/20/19 Duloxetine HCl 60 mg PO DAILY 04/20/19 Ipratropium [place] 2 spry NASAL TID PRN PRN 04/20/19 Levalbuterol Tartrate [Levalbuterol Tartrate Hfa] 2 puff IH Q6H PRN PRN 04/20/19 Levothyroxine Sodium [Synthroid] 25 mcg PO MOTUWETH 04/20/19 Loratadine [Claritin] 10 mg PO QHS 04/20/19 Mometasone Furoate [Asmanex Hfa] 2 puff PO BID 04/20/19 Multivitamin with Minerals [Multiple Vitamin] 1 tab PO DAILY 04/20/19 Vitamin E (Dl,Tocopheryl Acet) [Vitamin E] 400 unit PO DAILY 04/20/19 Primary Care Physician: Zuri Gutierrez DO [Primary Care Provider] - Please follow up with your Primary Care Physician in: 1 Week Test Results: Test results from this visit will be discussed in further detail at your follow-up appointment, if applicable. Please Follow Up With: Mike Cota MD When: As scheduled Proposed Discharge Date: 04/21/19
--- NOTE | 2019-04-21 13:46 | PCM.DC.SUM ---
<Lakesha Guthrie - Last Filed: 04/21/19 14:01> Discharge Date and Diagnosis Date of Admission: 04/20/19 Date of Discharge: 04/21/19 - Primary Discharge Diagnosis Active and Suspected Problems (Last Reviewed 04/20/19 @ 18:11 by Irina Carrillo DO) 1. Acute kidney injury on chronic kidney disease stage III 2. Presyncope secondary to orthostatic hypotension-related to #1. 3. Elevated d-dimer, PE ruled out- 4. Hypertension 5. Paroxysmal atrial fibrillation 6. Hyperlipidemia 7. COPD 8. CAD - Secondary Discharge Diagnosis Chronic Problems (Last Reviewed 04/20/19 @ 18:11 by Irina Carrillo DO) Dementia (Chronic) Essential hypertension (Chronic) Anemia (Chronic) Carotid stenosis (Chronic) GERD (gastroesophageal reflux disease) (Chronic) Lung nodule (Chronic) Atherosclerotic heart disease of [place] coronary artery without angina pectoris (Chronic) Mild to moderate - Cardiac Cath @ [facility] 05/03/09 Moderate persistent asthma (Chronic) Chest pain (Chronic) COPD (chronic obstructive pulmonary disease) (Chronic) Paroxysmal atrial fibrillation (Chronic) Hyperlipidemia (Chronic) Hospital Course and Treatment Imaging Results: Diagnostic Data Chest X-Ray 04/20/19 16:00 IMPRESSION: No acute cardiopulmonary findings or changes. Negative for new consolidation, focal atelectasis, cardiomegaly or pleural effusion. Electronically Signed: Louise Otero MD at 16:25 EST , Service support , Lung Scan-VQ NE 04/21/19 05:55 IMPRESSION: 1. VERY LOW PROBABILITY FOR PULMONARY EMBOLUS (<10%) 99m Tc DTPA aerosol ventilation / 99m Tc MAA pulmonary perfusion imaging examination, according to PIOPED II interpretive criteria with regard given to the presence of > 2 ventilation-perfusion matches without corresponding radiographic changes. (Sotsman et al, Radiology 246: 941, 2008 Sodennis et al, J Nucl Med 49: 1741, 2008). 2. Central clumping of the aerosol may be secondary to obstructive airway mechanics and or clinical tachypnea. Electronically Signed: Dom Sorto DO at 12:03 EST Tel , Service support , Operations: None Procedures: - - VQ scan Summary of Care Provided: The patient is a 74 year old F admitted 04/20/2019 due to lightheadedness. 1. Acute kidney injury on chronic kidney disease stage III-resolved with IV fluids. Acute kidney injury secondary to dehydration. 2. Presyncope secondary to orthostatic hypotension-related to #1. Improved with IV fluids. Encouraged oral intake. Amlodipine discontinued. Recent stress test February 2019- for stress-induced ischemia, LVEF 67%. Troponin negative. 3. Elevated d-dimer, PE ruled out-VQ scan normal. Patient previously on Xarelto which has been on hold pending colonoscopy with GI. Recommend resuming Xarelto if okay per GI. 4. Hypertension-stable, continue carvedilol isosorbide, losartan. Amlodipine discontinued. 5. Paroxysmal atrial fibrillation-currently sinus rhythm. Previously on Xarelto, no longer on anticoagulation due to pending GI evaluation as noted above. Continue amiodarone, carvedilol. 6. Hyperlipidemia-continue statin. 7. COPD-no exacerbation. Continue inhaler regimen. 8. CAD-follows with Dr. Cota. Continue aspirin, statin, beta-jonn, nitrate. Patient seen and examined prior to discharge. Physical assessment as noted below. Patient is stable for discharge with follow up recommendations as noted above. This patient was seen by JSESICA Harvey under the supervision of Dr. Dutton. - Physical Exam Vitals/I&O's: Vital Signs Temp Pulse Resp BP Pulse Ox 98 F 60 16 128/44 H 100 04/21/19 09:56 04/21/19 12:11 04/21/19 09:56 04/21/19 09:56 04/21/19 09:56 Oxygen Delivery Method Room Air Weight: 139 lb 8.842 oz Body Mass Index (BMI) 23.1 Orthostatic Vital Signs Start: 04/21/19 02:40 Freq: 0500 Status: Active Protocol: Activity Type Activity Date Activity User E-Sign Co-Sign Detail Recorded Client Recorded Date Recorded By Document 04/21/19 02:40 [facility] [id number] 04/21/19 02:41 [facility] 04/21/19 02:40 Orthostatic Vitals Standing -Blood Pressure (90/60-120/80) 94/42 L -Extremity Use Right Arm -Pulse Rate (60-100) 67 Sitting -Blood Pressure (90/60-120/80) 137/50 H -Extremity Use Right Arm -Pulse Rate (60-100) 65 Lying -Blood Pressure (90/60-120/80) 132/48 H -Extremity Use Right Arm -Pulse Rate (60-100) 64 Intake and Output for Last 24 Hours 04/19/19 04/20/19 04/21/19 23:59 23:59 23:59 Intake Total 820 / 820 1250 / 1250 Output Total Balance 820 / 820 1247 / 1247 General: Alert, Oriented x3, Cooperative HEENT: Atraumatic, PERRLA, EOMI, Normocephalic Neck: Supple, No JVD, Negative Carotid Bruits Lungs: Clear to auscultation, Normal air movement Cardiovascular: Regular rate, Regular Rhythm, Normal S1, Normal S2, No murmurs Abdomen: Bowel Sounds Present, Soft, Non Tender Extremities: No clubbing, No cyanosis, No edema, Capillary Refill Less than 3 Seconds Skin: No rashes, No breakdown Musculoskeletal: No Tenderness to Palpation of Joints or Extremities Neurological: Cranial nerves II-XII grossly intact, Neuro grossly intact Psych/Mental Status: Normal Affect, Appropriate Laboratory Results 04/20/19 16:15: WBC 5.1, RBC 3.85 L, Hgb 11.7 L, Hct 36.6 L, MCV 95.1, MCH 30.4, MCHC 32.0, RDW Std Deviation 43.8, RDW Coeff of Reina 12.7, Plt Count 231, MPV 10.4, Immature Gran % (Auto) 0.400, Neut % (Auto) 59.7, Lymph % (Auto) 26.7, Wise % (Auto) 8.9, Eos % (Auto) 3.5, Baso % (Auto) 0.8, Absolute Neuts (auto) 3.1, Absolute Lymphs (auto) 1.37, Nucleated RBC % 0 04/20/19 16:15: Sodium 141, Potassium 3.8, Chloride 107, Carbon Dioxide 29.0, Anion Gap 5, BUN 25 H, Creatinine 1.78 H, Estim Creat Clear Calc 21.93, Est GFR (MDRD) Af Amer 36 L, Est GFR (MDRD) Non-Af 30 L, BUN/Creatinine Ratio 14.0, Glucose 88, Calcium 9.6, Troponin I < 0.015 04/20/19 16:15: D-Dimer Quant (PE/DVT) 2.01 H* 04/20/19 20:20: Troponin I < 0.015 04/20/19 23:59: Troponin I < 0.015 04/21/19 06:08: WBC 4.3 L, RBC 3.31 L, Hgb 10.1 L, Hct 31.5 L, MCV 95.2, MCH 30.5, MCHC 32.1, RDW Std Deviation 44.0 H, RDW Coeff of Reina 12.7, Plt Count 207, MPV 10.5 04/21/19 06:08: Sodium 141, Potassium 3.6, Chloride 111 H, Carbon Dioxide 25.0, Anion Gap 5, BUN 19 H, Creatinine 1.23 H, Estim Creat Clear Calc 36.11, Est GFR (MDRD) Af Amer 55 L, Est GFR (MDRD) Non-Af 45 L, BUN/Creatinine Ratio 15.4, Glucose 77, Calcium 9.1, Phosphorus 3.7, Magnesium 1.7, Total Bilirubin 0.60, AST 19, ALT 17, Alkaline Phosphatase 56, Total Protein 6.0 L, Albumin 3.3, Globulin 2.7, Albumin/Globulin Ratio 1.2 Current Medications Acetaminophen (Tylenol) 650 mg PO Q4H PRN PRN PRN Reason: Pain or Fever Last Admin: 04/21/19 08:16 Dose: 650 mg Documented by: Albuterol Sulfate (Ventolin Aerosols) 2.5 mg INHALATION Q4H PRN PRN Reason: SOB &/OR WHEEZING Albuterol Sulfate (Ventolin Aerosols) 2.5 mg INHALATION Q6HWA.RT [facility] Last Admin: 04/21/19 13:19 Dose: 2.5 mg Documented by: Amiodarone HCl (Cordarone) 200 mg PO DAILY [facility] Last Admin: 04/21/19 10:02 Dose: 200 mg Documented by: Ascorbic Acid (Vitamin C) 500 mg PO DAILY [facility] Last Admin: 04/21/19 10:02 Dose: 500 mg Documented by: Aspirin (Aspirin, Baby) 81 mg PO DAILY@0800 [facility] Last Admin: 04/21/19 08:00 Dose: 81 mg Documented by: Atorvastatin Calcium (Lipitor) 80 mg PO QHS [facility] Last Admin: 04/20/19 22:44 Dose: 80 mg Documented by: Budesonide (Pulmicort Aerosol) 0.5 mg INHALATION Q12H.RT [facility] Last Admin: 04/21/19 07:36 Dose: 0.5 mg Documented by: Calcium/Vitamin D (Os-Tk 500mg + D) 1 tablet PO DAILYCM [facility] Last Admin: 04/21/19 07:59 Dose: 1 tablet Documented by: Carvedilol (Coreg) 12.5 mg PO BID [facility] Last Admin: 04/21/19 11:46 Dose: 12.5 mg Documented by: Cholecalciferol (Vitamin D) 1,000 unit PO DAILY [facility] Last Admin: 04/21/19 10:03 Dose: 1,000 unit Documented by: Duloxetine HCl (Cymbalta) 60 mg PO DAILY [facility] Last Admin: 04/21/19 10:03 Dose: 60 mg Documented by: Enoxaparin Sodium (Lovenox) 60 mg SC DAILY@2000 [facility] Last Admin: 04/20/19 20:47 Dose: 60 mg Documented by: Ferrous Sulfate (Ferrous Sulfate) 325 mg PO DAILY@1200 [facility] Last Admin: 04/21/19 11:46 Dose: 325 mg Documented by: Fluticasone Propionate (Flonase Nasal [place]) 1 spray NASAL BID [facility] Last Admin: 04/21/19 10:01 Dose: 1 spray Documented by: Glucagon () 1 mg IM .X1 PRN PRN Reason: Hypoglycemia Guaifenesin (Robitussin) 10 ml PO Q6H PRN PRN PRN Reason: COUGH/CONGESTION Last Admin: 04/21/19 08:04 Dose: 10 ml Documented by: Sodium Chloride () 1,000 mls @ 100 mls/hr IV .Q10H [facility] Last Admin: 04/21/19 06:17 Dose: 100 mls/hr Documented by: Dextrose (Dextrose 10%-Water) 250 mls @ 999 mls/hr IV .Q16M PRN; Protocol PRN Reason: HYPOGLYCEMIA Isosorbide Dinitrate (Isordil) 30 mg PO DAILY [facility] Last Admin: 04/21/19 11:46 Dose: 30 mg Documented by: Levothyroxine Sodium (Synthroid) 50 mcg PO SuFrSa@0600 [facility] Last Admin: 04/21/19 11:47 Dose: 50 mcg Documented by: Levothyroxine Sodium (Synthroid) 25 mcg PO MoTuWeTh@0600 [facility] Loratadine (Claritin) 10 mg PO QHS [facility] Last Admin: 04/20/19 22:44 Dose: 10 mg Documented by: Losartan Potassium (Cozaar) 50 mg PO DAILY [facility] Last Admin: 04/21/19 11:18 Dose: Not Given Documented by: Montelukast Sodium (Singulair) 10 mg PO DAILY [facility] Last Admin: 04/21/19 10:03 Dose: 10 mg Documented by: Multivitamins/Minerals (Multivitamin With Minerals) 1 tablet PO DAILY@0800 [facility] Last Admin: 04/21/19 08:00 Dose: 1 tablet Documented by: Pantoprazole Sodium (Protonix) 40 mg PO DAILY [facility] Last Admin: 04/21/19 10:03 Dose: 40 mg Documented by: Sodium Chloride () 10 - 40 ml IV UD PRN PRN Reason: SALINE FLUSH Last Admin: 04/20/19 20:48 Dose: 10 ml Documented by: Throat Lozenges (Cepacol Sore Throat Lozenge) 1 lozenge MUCOUS MEM Q3H PRN PRN PRN Reason: SORE THROAT Vitamin E (Vitamin E) 400 units PO DAILY@0800 [facility] Last Admin: 04/21/19 11:46 Dose: 400 units Documented by: Discharge Diet: No Restrictions Discharge Activity: Return to Normal Activity Call your doctor if you observe: Shortness of breath, Dizziness, Fainting spells, Chest pain Home Medications: Medications to take at Discharge Aspirin [Aspirin, Baby] 81 mg PO DAILY@1200 06/20/15 Atorvastatin Calcium [Lipitor] 80 mg PO QHS 06/20/15 Cholecalciferol (VIT D3) [Vitamin D3] 2,000 unit PO DAILY@1200 06/20/15 Montelukast [Singulair] 10 mg PO DAILY 06/20/15 isosorbide dinitrate 30 mg tablet 30 mg PO DAILY tab 07/01/17 ascorbic acid (vitamin C) 500 mg capsule 500 mg PO DAILY@1200 cap 07/05/17 ferrous sulfate 325 mg (65 mg iron) tablet 325 mg PO DAILY@1200 tab 07/05/17 Losartan Potassium [Cozaar] 50 mg PO DAILY 03/07/19 Amiodarone HCl 200 mg PO DAILY 04/20/19 Calcium (Elemental) [Os-Tk 500] 500 mg PO DAILY 04/20/19 Carvedilol 12.5 mg PO BID 04/20/19 Denosumab [Prolia] 60 mg SQ UD 04/20/19 Dexlansoprazole [Dexilant] 60 mg PO DAILY 04/20/19 Duloxetine HCl 60 mg PO DAILY 04/20/19 Ipratropium [place] 2 spry NASAL TID PRN PRN 04/20/19 Levalbuterol Tartrate [Levalbuterol Tartrate Hfa] 2 puff IH Q6H PRN PRN 04/20/19 Levothyroxine Sodium [Synthroid] 25 mcg PO DAILY 04/20/19 Loratadine [Claritin] 10 mg PO QHS 04/20/19 Mometasone Furoate [Asmanex Hfa] 2 puff PO BID 04/20/19 Multivitamin with Minerals [Multiple Vitamin] 1 tab PO DAILY 04/20/19 Vitamin E (Dl,Tocopheryl Acet) [Vitamin E] 400 unit PO DAILY 04/20/19 Primary Care Physician: Zuri Gutierrez DO [Primary Care Provider] - Please follow up with your Primary Care Physician in: 1 Week Please Follow Up With: Mike Cota MD When: As scheduled Disposition: Home Minutes spent on discharge:: 35 Patient Condition:: Stable Medical Necessity - Tobacco Use Smoking Status: Former smoker Tobacco Use: Cigarettes Meaningful Use Info Meaningful Use Diagnoses (Choose all that apply): None applicable <NatoNicolasa Olveraa - Last Filed: 04/21/19 15:06> Discharge Date and Diagnosis - Secondary Discharge Diagnosis Chronic Problems (Last Reviewed 04/20/19 @ 18:11 by Irina Carrillo DO) Dementia (Chronic) Essential hypertension (Chronic) Anemia (Chronic) Carotid stenosis (Chronic) GERD (gastroesophageal reflux disease) (Chronic) Lung nodule (Chronic) Atherosclerotic heart disease of [place] coronary artery without angina pectoris (Chronic) Mild to moderate - Cardiac Cath @ [facility] 05/03/09 Moderate persistent asthma (Chronic) Chest pain (Chronic) COPD (chronic obstructive pulmonary disease) (Chronic) Paroxysmal atrial fibrillation (Chronic) Hyperlipidemia (Chronic) Hospital Course and Treatment Imaging Results: 04/21/19 05:55 Lung Scan Vent/Perf [NM] AM (NON MEDS) Procedures: None Summary of Care Provided: Patient seen by Lakesha LOPEZ under my supervision The patient is a 74 year old F with a past medical history as outlined was admitted on 04/21/2019 with a complaint of lightheadedness. SHe was supposed to be on blood thinners, but had not been compliant with it. On admission, she was found to be hypotensive and orthostatics were positive. She also had JOSH on CKD. She was admitted and hydrated with IV fluids. Due to her not being compliant with her blood thinners and having elevated d-dimer, VQ scan was ordered which showed low probability for PE. Orthostatics resolved with IV fluid hydration and JOSH also resolved creatinine trended down to baseline. Patient stated that her blood thinners have been on hold last month because she had positive occult blood in her stool. However she states she had EGD and colonoscopy done which were negative. EMR checked and there is no record of EGD and colonoscopy, and it seem she had it at the [facility]. Patient was counseled that she needs to resume her Xarelto to prevent DVT. Her amlodipine was stopped. She was discharged home on 04/21/2019 and is continue her carvedilol and losartan. She is to follow-up with her primary care doctor within 1 week and she was counseled to keep well-hydrated at home. Patient seen and examined prior to discharge. She had no complaints. Right headedness and dizziness had resolved. Orthostatic was now negative. Review of symptoms otherwise negative. Labs and vitals reviewed. Home medication reviewed and reconciled. o/e: Vital Signs Height 5 ft 5 in Weight: 139 lb 8.842 oz Weight in Pounds 139.6 lbs Pulse Ox 100 Temperature 98 F Pulse Rate [Standing] 61 Pulse Rate [Sitting] 65 Pulse Rate [Lying] 57 Pulse Rate 64 Respiratory Rate 16 Blood Pressure [Standing] 106/75 Blood Pressure [Sitting] 126/60 Blood Pressure [Lying] 123/47 Blood Pressure 128/44 Blood Pressure Position Sitting [] General: Alert, Oriented x3, Cooperative HEENT: Atraumatic, PERRLA, EOMI, Normocephalic Neck: Supple, No JVD, Negative Carotid Bruits Lungs: Clear to auscultation, Normal air movement Cardiovascular: Regular rate, Regular Rhythm, Normal S1, Normal S2, No murmurs Abdomen: Bowel Sounds Present, Soft, Non Tender Extremities: No clubbing, No cyanosis, No edema, Capillary Refill Less than 3 Seconds Skin: No rashes, No breakdown Musculoskeletal: No Tenderness to Palpation of Joints or Extremities Neurological: Cranial nerves II-XII grossly intact, Neuro grossly intact Psych/Mental Status: Normal Affect, Appropriate Plan as above. Rest as per Lakesha LOPEZ under my supervision. - Physical Exam Vitals/I&O's: Vital Signs Temp Pulse Resp BP Pulse Ox 98 F 64 16 128/44 H 100 04/21/19 09:56 04/21/19 13:19 04/21/19 13:19 04/21/19 09:56 04/21/19 09:56 Oxygen Delivery Method Room Air Weight: 139 lb 8.842 oz Body Mass Index (BMI) 23.1 Orthostatic Vital Signs Start: 04/21/19 02:40 Freq: 0500 Status: Active Protocol: Activity Type Activity Date Activity User E-Sign Co-Sign Detail Recorded Client Recorded Date Recorded By Document 04/21/19 02:40 [facility] [id number] 04/21/19 02:41 [facility] 04/21/19 02:40 Orthostatic Vitals Standing -Blood Pressure (90/60-120/80) 94/42 L -Extremity Use Right Arm -Pulse Rate (60-100) 67 Sitting -Blood Pressure (90/60-120/80) 137/50 H -Extremity Use Right Arm -Pulse Rate (60-100) 65 Lying -Blood Pressure (90/60-120/80) 132/48 H -Extremity Use Right Arm -Pulse Rate (60-100) 64 Intake and Output for Last 24 Hours 04/19/19 04/20/19 04/21/19 23:59 23:59 23:59 Intake Total 820 / 820 1250 / 1250 Output Total / Balance 820 / 820 1247 / 1247 Laboratory Results 04/20/19 16:15: WBC 5.1, RBC 3.85 L, Hgb 11.7 L, Hct 36.6 L, MCV 95.1, MCH 30.4, MCHC 32.0, RDW Std Deviation 43.8, RDW Coeff of Reina 12.7, Plt Count 231, MPV 10.4, Immature Gran % (Auto) 0.400, Neut % (Auto) 59.7, Lymph % (Auto) 26.7, Wise % (Auto) 8.9, Eos % (Auto) 3.5, Baso % (Auto) 0.8, Absolute Neuts (auto) 3.1, Absolute Lymphs (auto) 1.37, Nucleated RBC % 0 04/20/19 16:15: Sodium 141, Potassium 3.8, Chloride 107, Carbon Dioxide 29.0, Anion Gap 5, BUN 25 H, Creatinine 1.78 H, Estim Creat Clear Calc 21.93, Est GFR (MDRD) Af Amer 36 L, Est GFR (MDRD) Non-Af 30 L, BUN/Creatinine Ratio 14.0, Glucose 88, Calcium 9.6, Troponin I < 0.015 04/20/19 16:15: D-Dimer Quant (PE/DVT) 2.01 H* 04/20/19 20:20: Troponin I < 0.015 04/20/19 23:59: Troponin I < 0.015 04/21/19 06:08: WBC 4.3 L, RBC 3.31 L, Hgb 10.1 L, Hct 31.5 L, MCV 95.2, MCH 30.5, MCHC 32.1, RDW Std Deviation 44.0 H, RDW Coeff of Reina 12.7, Plt Count 207, MPV 10.5 04/21/19 06:08: Sodium 141, Potassium 3.6, Chloride 111 H, Carbon Dioxide 25.0, Anion Gap 5, BUN 19 H, Creatinine 1.23 H, Estim Creat Clear Calc 36.11, Est GFR (MDRD) Af Amer 55 L, Est GFR (MDRD) Non-Af 45 L, BUN/Creatinine Ratio 15.4, Glucose 77, Calcium 9.1, Phosphorus 3.7, Magnesium 1.7, Total Bilirubin 0.60, AST 19, ALT 17, Alkaline Phosphatase 56, Total Protein 6.0 L, Albumin 3.3, Globulin 2.7, Albumin/Globulin Ratio 1.2 Current Medications Acetaminophen (Tylenol) 650 mg PO Q4H PRN PRN PRN Reason: Pain or Fever Last Admin: 04/21/19 08:16 Dose: 650 mg Documented by: Albuterol Sulfate (Ventolin Aerosols) 2.5 mg INHALATION Q4H PRN PRN Reason: SOB &/OR WHEEZING Albuterol Sulfate (Ventolin Aerosols) 2.5 mg INHALATION Q6HWA.RT [facility] Last Admin: 04/21/19 13:19 Dose: 2.5 mg Documented by: Amiodarone HCl (Cordarone) 200 mg PO DAILY [facility] Last Admin: 04/21/19 10:02 Dose: 200 mg Documented by: Ascorbic Acid (Vitamin C) 500 mg PO DAILY [facility] Last Admin: 04/21/19 10:02 Dose: 500 mg Documented by: Aspirin (Aspirin, Baby) 81 mg PO DAILY@0800 [facility] Last Admin: 04/21/19 08:00 Dose: 81 mg Documented by: Atorvastatin Calcium (Lipitor) 80 mg PO QHS [facility] Last Admin: 04/20/19 22:44 Dose: 80 mg Documented by: Budesonide (Pulmicort Aerosol) 0.5 mg INHALATION Q12H.RT [facility] Last Admin: 04/21/19 07:36 Dose: 0.5 mg Documented by: Calcium/Vitamin D (Os-Tk 500mg + D) 1 tablet PO DAILYCM [facility] Last Admin: 04/21/19 07:59 Dose: 1 tablet Documented by: Carvedilol (Coreg) 12.5 mg PO BID [facility] Last Admin: 04/21/19 11:46 Dose: 12.5 mg Documented by: Cholecalciferol (Vitamin D) 1,000 unit PO DAILY [facility] Last Admin: 04/21/19 10:03 Dose: 1,000 unit Documented by: Duloxetine HCl (Cymbalta) 60 mg PO DAILY [facility] Last Admin: 04/21/19 10:03 Dose: 60 mg Documented by: Enoxaparin Sodium (Lovenox) 60 mg SC DAILY@2000 [facility] Last Admin: 04/20/19 20:47 Dose: 60 mg Documented by: Ferrous Sulfate (Ferrous Sulfate) 325 mg PO DAILY@1200 [facility] Last Admin: 04/21/19 11:46 Dose: 325 mg Documented by: Fluticasone Propionate (Flonase Nasal [place]) 1 spray NASAL BID [facility] Last Admin: 04/21/19 10:01 Dose: 1 spray Documented by: Glucagon () 1 mg IM .X1 PRN PRN Reason: Hypoglycemia Guaifenesin (Robitussin) 10 ml PO Q6H PRN PRN PRN Reason: COUGH/CONGESTION Last Admin: 04/21/19 08:04 Dose: 10 ml Documented by: Sodium Chloride () 1,000 mls @ 100 mls/hr IV .Q10H [facility] Last Admin: 04/21/19 06:17 Dose: 100 mls/hr Documented by: Dextrose (Dextrose 10%-Water) 250 mls @ 999 mls/hr IV .Q16M PRN; Protocol PRN Reason: HYPOGLYCEMIA Isosorbide Dinitrate (Isordil) 30 mg PO DAILY [facility] Last Admin: 04/21/19 11:46 Dose: 30 mg Documented by: Levothyroxine Sodium (Synthroid) 50 mcg PO SuFrSa@0600 [facility] Last Admin: 04/21/19 11:47 Dose: 50 mcg Documented by: Levothyroxine Sodium (Synthroid) 25 mcg PO MoTuWeTh@0600 [facility] Loratadine (Claritin) 10 mg PO QHS [facility] Last Admin: 04/20/19 22:44 Dose: 10 mg Documented by: Losartan Potassium (Cozaar) 50 mg PO DAILY [facility] Last Admin: 04/21/19 11:18 Dose: Not Given Documented by: Montelukast Sodium (Singulair) 10 mg PO DAILY [facility] Last Admin: 04/21/19 10:03 Dose: 10 mg Documented by: Multivitamins/Minerals (Multivitamin With Minerals) 1 tablet PO DAILY@0800 [facility] Last Admin: 04/21/19 08:00 Dose: 1 tablet Documented by: Pantoprazole Sodium (Protonix) 40 mg PO DAILY [facility] Last Admin: 04/21/19 10:03 Dose: 40 mg Documented by: Sodium Chloride () 10 - 40 ml IV UD PRN PRN Reason: SALINE FLUSH Last Admin: 04/20/19 20:48 Dose: 10 ml Documented by: Throat Lozenges (Cepacol Sore Throat Lozenge) 1 lozenge MUCOUS MEM Q3H PRN PRN PRN Reason: SORE THROAT Vitamin E (Vitamin E) 400 units PO DAILY@0800 [facility] Last Admin: 04/21/19 11:46 Dose: 400 units Documented by: Code Visit OBSV E&M: [id number] Observation care discharge
--- NOTE | 2019-04-21 14:04 | CHAPLAIN ---
Type of Pastoral Visit _x__ Initial Visit ___ Follow-up Visit ___ On-call Visit ___ General Patient Visit ___ Spiritual Assessment ___ Family Conference ___ Bereavement ___ Rapid Response ___ Code Blue ___ Other (describe below) Pastoral Care Referral From _x__ Patient ___ Family ___ Nurse ___ Physician ___ Clearing House Clerk ___ Production Reproduction Manager ___ Other (describe below) Sacrament/Intervention _x__ Active listening ___ Anointing ___ Bahai ___ Bereavement ___ Communion ___ Tiny exploration ___ ___ Life review ___ Prayer ___ Reconciliation ___ Sacrament of Sick ___ Supportive presence ___ Wedding ___ Other (describe below) Pastoral Comments
== END 2019-04-21 13:44 | disposition home or self-care (01) ==
LOC: ED 16:09 → PCU 18:06
PROVIDERS: Admitting Provider Internal Medicine; Emergency Provider Emergency Medicine; PCP Internal Medicine; Visit Provider Student in an Organized Health Care Education/Training Program
DX: N17.9 Acute kidney failure, unspecified (principal); I11.0 Hypertensive heart disease with heart failure; N18.3 Chronic kidney disease, stage 3 (moderate); I95.1 Orthostatic hypotension; E78.5 Hyperlipidemia, unspecified; I48.0 Paroxysmal atrial fibrillation; K21.9 Gastro-esophageal reflux disease without esophagitis; R91.1 Solitary pulmonary nodule; F03.90 Unspecified dementia, unspecified severity, without behavioral disturbance, psychotic disturbance, mood disturbance, and anxiety; J45.40 Moderate persistent asthma, uncomplicated; J44.9 Chronic obstructive pulmonary disease, unspecified; I25.10 Atherosclerotic heart disease of native coronary artery without angina pectoris; Z79.899 Other long term (current) drug therapy; Z79.82 Long term (current) use of aspirin; Z87.891 Personal history of nicotine dependence; Z86.711 Personal history of pulmonary embolism; Z91.14 Patient's other noncompliance with medication regimen
CPT/HCPCS: 36415; 71045; 78582; 80048; 80053; 83735; 84100; 84484; 85025; 85027; 85379; 93005; 94640; 96360; 96361; 96372; 97162; 97165; 99218; 99251; 99285; A9540; A9567; J7030; A4216; G0378; G0463

== ENCOUNTER → 2019-06-30 13:05 | Outpatient (CLI) | payer MEDICARE, SELFPAY ==
[2019-04-20 19:54] VITALS: BMI 23.1
--- NOTE | 2019-06-30 13:13 | MRI_ITS ---
STUDY: MRI BRAIN WITH AND WITHOUT CONTRAST REASON FOR EXAM: Female, 74 years old. Dizziness, unsteady gait and chronic daily headaches. TECHNIQUE: Standardized multiplanar fat and water weighted pulse sequences were obtained. 12 mL of IV Dotarem was administered for the contrast portion of the examination. COMPARISON: MRI brain without contrast 06/07/2018. MRI brain with and without contrast 04/19/2017. CT head without contrast 08/23/2018. FINDINGS: No restricted diffusion to suspect acute or subacute ischemic infarct. No remote cortical-based ischemic infarct. Normal size of the ventricles and extra-axial spaces for the patient''s age. T2 FLAIR hyperintensity foci in the white matter of both cerebral hemispheres are chronic white matter ischemic changes. They were present previously and are unchanged. Normal bilateral basal ganglia. Normal thalami. There is no extra-axial fluid accumulation. Normal flow voids within the major intracranial circulation suggesting patency by spin echo criteria. Normal venous enhancement. There is no enhancing intra-axial or extra-axial abnormality. Normal sella turcica, pituitary gland, infundibular stalk, optic chiasm and hypothalamus. Normal tectal plate and pineal gland. Normal midbrain, swati and medulla. Normal cerebellum. Normal basal cisterns. Normal bilateral temporal bones. Normal bilateral internal auditory canals. No demonstrated orbital abnormality, within the constraints of a routine brain study. Surgical defects in the medial peraza of the maxillary sinuses. Contraction with sclerotic wall thickening of the left maxillary sinus. Normal calvarium and skull base. Normal visualized soft tissue structures. Normal visualized upper cervical spine. MRI/Brain W/WO Contrast IMPRESSION: 1. No MRI evidence of acute or subacute ischemic infarct, intracranial mass or acute intracranial abnormality. 2. No enhancing lesions intraaxially and extra-axially. 3. Chronic white matter ischemic changes in both cerebral hemispheres. 4. No significant interval change when compared to MRI brain of 06/07/2018. Electronically Signed: Víctor Dejesus MD at 14:33 EDT , Service support ,
[2019-06-30 13:46] LABS: CREATININE FINGERSTICK 0.8 mg/dL (0.55-1.02); EGFR FINGERSTICK > 60.0000 mL/min (>60)
== END ==
PROVIDERS: PCP Internal Medicine; Referring Provider Internal Medicine; Visit Provider Internal Medicine
DX: R42 Dizziness and giddiness (principal); R63.4 Abnormal weight loss
CPT/HCPCS: 70553; A9575

== ENCOUNTER 2019-07-22 15:15 | Emergency (ER) | payer MEDICARE, SELFPAY ==
[2019-04-20 19:54] VITALS: BMI 23.1
[2019-07-22 15:17] VITALS: BP 150/70; PULSE 57; RESP 18; TEMP 36.4; O2SAT 98; BMI 22.4
--- NOTE | 2019-07-22 15:34 | EKG12_ITS ---
Test Reason : DIZZINESS Blood Pressure : / mmHG Vent. Rate : 056 BPM Atrial Rate : 056 BPM P-R Int : 228 ms QRS Dur : 088 ms QT Int : 422 ms P-R-T Axes : 082 -01 014 degrees QTc Int : 407 ms Sinus bradycardia with 1st degree A-V block Nonspecific ST and T wave abnormality Abnormal ECG Confirmed by CHARLEY JC, YOSELIN ([id number]), supervising film or videotape editor NALINI DIOP ([id number]) on 07/25/2019 10:57:19 AM Referred By: REUBEN Confirmed By:YOSELIN WHITEHEAD MD
--- NOTE | 2019-07-22 15:35 | CT_ITS ---
We are attempting to reach an attending provider to discuss findings. An addendum with communication details will be sent when the communication is complete. STUDY: CT CERVICAL SPINE WITHOUT CONTRAST REASON FOR EXAM: Female, 74 years old. Fall. Patient on blood thinners. Right head trauma. RADIATION DOSAGE (If Supplied By Facility): CTDIvol = ( 12.17 ) mGy, DLP = ( 274.33 ) mGycm TECHNIQUE: High resolution transaxial imaging was performed without contrast material. Sagittal and coronal images were reconstructed. Individualized dose optimization techniques were used for this CT. COMPARISON: Cervical spine, December 23, 2017. FINDINGS: Normal craniovertebral junction. There are degenerative changes of the anterior atlantoaxial articulation. Question nondisplaced type II fracture of the odontoid. Normal cervical lordosis. Otherwise normal vertebral bodies and posterior osseous elements. C2-3: Normal endplates. Loss of disc height. Facet no local vertebral joint degenerative change. Normal central canal and intervertebral neuroforamina. C3-4: Normal endplates. Loss of disc height. Facet and uncovertebral joint degenerative change. Normal central canal and intervertebral neuroforamina. C4-5: Normal endplates. Normal disc height and morphology. Facet and uncovertebral joint degenerative change. Normal central canal. Mild narrowing of the bilateral intervertebral neuroforamina, left greater than right. C5-6: Normal endplates. Mild loss of disc height. Facet and uncovertebral joint degenerative change.. Normal central canal. Narrowing of the bilateral intervertebral neuroforamina. C6-7: Endplate spondylosis. There is loss of disc height. There is mild anterolisthesis of C4 on S1 unchanged from the previous examination. There is no facet subluxation. There is facet and uncovertebral joint degenerative change. Normal central canal. Narrowing of the bilateral intervertebral neuroforamina. C7-T1: Normal endplates. Normal disc height and morphology. Normal central canal and intervertebral neuroforamina. There is marked atherosclerotic changes at the bilateral carotid bifurcations. CT/Spine Cervical without Contras IMPRESSION: 1. Nondisplaced type II odontoid fracture. 2. Marked degenerative changes cervical spine. Electronically Signed: Brennan Mike DO at 16:20 EDT Tel [phone], Service support ,
--- NOTE | 2019-07-22 15:35 | CT_ITS ---
STUDY: CT BRAIN WITHOUT CONTRAST REASON FOR EXAM: Female, 74 years old. Fall. Patient on blood thinners. Bruise to the right maribel. RADIATION DOSAGE (If Supplied By Facility): CTDIvol = ( 44.99 ) mGy, DLP = ( 779.24 ) mGycm TECHNIQUE: Transaxial CT imaging of the brain was performed without administration of intravenous contrast material. Individualized dose optimization techniques were used for this CT. COMPARISON: August 23, 2018. FINDINGS: Is minimal soft tissue thickening and subcutaneous hematoma in the right frontal region. Soft tissues are otherwise unremarkable. Normal calvarium. There is evidence of remote surgical changes of the bilateral maxilla. Normal size ventricles and extra-axial spaces for the patient''s age. There are areas of decreased attenuation within the white matter tracts of the supratentorial brain, consistent with microvascular disease changes. Normal basal ganglia and thalami. Normal brainstem. Normal cerebellum. There is no intracranial hemorrhage. There are no findings of an acute ischemic infarction. There is evidence of prior sinus surgery. There is mucoperiosteal reaction in the maxillary sinuses. CT/Brain/Head without Contrast IMPRESSION: 1. Chronic involutional changes without evidence of acute intracranial or calvarial abnormality.. There is no major interval change. 2. Soft tissue hematoma in the right frontal region. 3. Remote surgical changes on the paranasal sinuses and maxillae. Electronically Signed: Brennan Mike DO at 16:12 EDT Tel [phone], Service support ,
[2019-07-22] MEDS: Ondansetron 4 MG/2 ML Vial IV (15:43)
[2019-07-22 15:45] LABS: Absolute Lymphocyte Count 1.31 X10^3/uL (0.83-4.51); Absolute Neutrophil Count 3.4 X10^3/uL (2.0-7.7); Basophil# 0.03 X10^3/uL; Basophil% 0.6 % (0-1); Eosinophils% 1.9 % (0-5); Hematocrit 31.3 % (37-47); Hemoglobin 9.9 g/dL (12.0-15.0); Lymphocyte # 1.31 X10^3/ul (4.0); Lymphocyte % 24.4 % (19-41); Mean Corp Hgb Conc 31.6 g/dL (32-36); Mean Corpuscular Hgb 30.7 pg (27.0-32.0); Mean Corpuscular Volume 97.2 fL (81-99); Mean Platelet Vol. 9.6 fl (6.2-12.0); Monocyte# 0.48 X10^3/uL; NRBC Flagged by Analyzer 0 % (0-5); Neutrophil # 3.43 X10^3/uL (2.7-7.7); Neutrophil % 63.9 % (47-70); Platelet Count 320 K/mm3 (150-450); RBC Distribution Width CV 12.8 % (11.6-14.6); Red Blood Count 3.22 M/mm3 (4.2-5.4); White Blood Count 5.4 K/mm3 (4.4-11.0)
[2019-07-22] MEDS: fentaNYL 100 MCG/2 ML Ampul 50 MCG IV (15:48)
[2019-07-22 15:53] LABS: Prothrombin Time (Protime)PT. 22.5 SECONDS (11.7-14.9)
[2019-07-22 16:03] LABS: Anion Gap 5 (5-15); BUN 17 mg/dL (7-18); Calcium,Total 9.4 mg/dL (8.5-10.1); Chloride 105 mmol/L (98-107); Creatinine, Serum 1.13 mg/dL (0.55-1.02); EST Glomerular Filtration Rate 50 mL/min (>60); Est Glom Filt Rate - Afr Amer 61 mL/min (>60); Glucose 95 mg/dL (74-106); Potassium 3.8 mmol/L (3.5-5.1); Sodium Level 139 mmol/L (136-145)
--- NOTE | 2019-07-22 16:46 | ED.DCSUM_ITS ---
- ER Visit Summary Date of Service: 07/22/19 Chief Complaint: Fall History of Present Illness: The patient is a [address] balderrama. She reports that she stood from a chair in the kitchen walked a refrigerator got very lightheaded and was off balance and fell. She did strike the front of her head. She had a loss of consciousness for an unknown period of time. She is on Xarelto. She is unsure when she took her last dose. Patient reports that she has neck pain and stated 10 severity. She denies any back, shoulder, wrist, or hip pain. She denies any numbness or weakness. Physical Examination: Vitals: Stable. Afebrile. Head: Hematoma to the right side of her forehead. No laceration or bleeding. Neck: Moderate tenderness palpation to the upper cervical spine. She was placed in a collar upon arrival. Back: No vertebral tenderness. General: A&O x 3. NAD. Cardiovascular exam: Regular rate and rhythm, no murmur, rub or gallop. Respiratory exam: Chest nontender. No crepitus. Clear to auscultation bilaterally. No wheezes or stridor. Abdominal exam: Soft, nontender, nondistended, normal bowel sounds. No pain in RUQ or LUQ specifically. No peritoneal signs. Extremity: Atraumatic. No pain with range of motion. Test Results: EKG is sinus bradycardia with a first-degree AV block at a rate of 56. CBC shows an H&H 9.9 31.3. Chem-7 shows a creatinine 1.13. INR is 2.0 with a PTT of 44.0. Troponin is negative. Clinical Impression(s) from Imaging Studies Brain CT 07/22/19 15:35 IMPRESSION: 1. Chronic involutional changes without evidence of acute intracranial or calvarial abnormality.. There is no major interval change. 2. Soft tissue hematoma in the right frontal region. 3. Remote surgical changes on the paranasal sinuses and maxillae. Electronically Signed: Brennan Mike DO at 16:12 EDT Tel [phone], Service support , Cervical Spine CT 07/22/19 15:35 IMPRESSION: 1. Nondisplaced type II odontoid fracture. 2. Marked degenerative changes cervical spine. Electronically Signed: Brennan Mike DO at 16:20 EDT Tel [phone], Service support , Emergency Department Course and Treatment: Patient was placed in a c-collar upon arrival. She was given fentanyl and Zofran IV. She is resting comfortably. Treatment Plan: When the CT returned I discussed the patient with her son, who is power of erisa attorney, and he asked that she be transferred to [facility]. She was discussed with Dr. Mcintyre was accepted her in transfer. Disposition: Transferred in serious condition. Impression: 1. Fall. 2. Type II odontoid fracture. 3. Coagulopathy on Xarelto. 4. Critical care time 33 minutes. This note was generated with [email or web address] dictation software. It may contain incorrect words, spelling, and punctuation that were not noted in review of the chart prior to signing ED Disposition - Plan for ED Patient: Referrals: Zuri Balderrama DO [Primary Care Provider] -
[2019-07-22 16:59] VITALS: BP 160/63; PULSE 66; RESP 18; O2SAT 94
--- NOTE | 2019-07-22 17:13 | NURSING ---
[facility] B[facility] COMING FROM [place]
[2019-07-22 17:48] VITALS: BP 160/72; PULSE 78; RESP 18; O2SAT 98
== END 2019-07-22 17:51 | disposition short-term general hospital (02) ==
LOC: ED 16:23
PROVIDERS: Emergency Provider Emergency Medicine; PCP Internal Medicine
DX: S12.112A Nondisplaced Type II dens fracture, initial encounter for closed fracture (principal); W18.39XA Other fall on same level, initial encounter; Y93.01 Activity, walking, marching and hiking; Y92.000 Kitchen of unspecified non-institutional (private) residence as the place of occurrence of the external cause; D68.9 Coagulation defect, unspecified; T45.515A Adverse effect of anticoagulants, initial encounter; I25.10 Atherosclerotic heart disease of native coronary artery without angina pectoris; I48.0 Paroxysmal atrial fibrillation; I12.9 Hypertensive chronic kidney disease with stage 1 through stage 4 chronic kidney disease, or unspecified chronic kidney disease; N18.9 Chronic kidney disease, unspecified; D63.1 Anemia in chronic kidney disease; J44.9 Chronic obstructive pulmonary disease, unspecified; F03.90 Unspecified dementia, unspecified severity, without behavioral disturbance, psychotic disturbance, mood disturbance, and anxiety; Z79.01 Long term (current) use of anticoagulants; Z79.82 Long term (current) use of aspirin; Z79.899 Other long term (current) drug therapy
CPT/HCPCS: 70450; 72125; 80048; 84484; 85025; 85610; 85730; 93005; 96374; 96375; 99285; A4216; J2405

== ENCOUNTER → 2019-08-04 13:54 | Outpatient (CLI) | payer MEDICARE, SELFPAY ==
[2019-04-20 19:54] VITALS: BMI 23.1
[2019-07-22 15:17] VITALS: BMI 22.4
--- NOTE | 2019-08-04 14:08 | CT_ITS ---
STUDY: CT ABDOMEN AND PELVIS WITHOUT CONTRAST REASON FOR EXAM: Female, 74 years old. LEFT FLANK PAIN X 3 WEEKS RADIATION DOSAGE (If Supplied By Facility): CTDIvol = ( 6.46 ) mGy, DLP = ( 277.92 ) mGycm TECHNIQUE: Transaxial images were obtained from the dome of the diaphragm to the symphysis pubis without oral contrast, and without intravenous contrast. Sagittal and coronal images were reconstructed. Individualized dose optimization techniques were used for this CT. COMPARISON: None. FINDINGS: Minimal increased linear markings in the lingular segment of the left upper lobe suggestive of linear scarring. Coronary artery calcification. Minimal pericardial thickening more prominent towards the cardiac base. Normal liver. Increased densities are seen in the gallbladder lumen. This may represent either multiple small gallstones or sludge within the gallbladder lumen. Normal spleen. Normal pancreas. Normal bilateral adrenal glands. There is a 4.8 cm x 4.9 cm cyst in the lower pole of the right kidney. Normal left kidney. Normal visualized stomach. Normal small intestine. There are multiple colonic diverticula consistent with diverticulosis. The appendix is visualized and appears normal. There is diffuse atherosclerotic calcification of the abdominal aorta and the major visceral branches, without a demonstrated aneurysm. Normal inferior vena cava. Normal retroperitoneum. Normal urinary bladder. There is a 2 cm x 1.9 cm cyst in the left ovary. There is a 1.4 cm x 1.4 cm cyst in the right ovary. Normal abdominal wall. There are diffuse degenerative changes of the visualized lumbar spine. CT/Abdomen/Pelvis without Cont IMPRESSION: Small bilateral ovarian cysts. Right renal cyst. Sludge or gallstones within the gallbladder lumen. Electronically Signed: Johnny Gilman, at 14:48 EDT , Service support ,
== END ==
PROVIDERS: PCP Internal Medicine; Referring Provider Internal Medicine; Visit Provider Internal Medicine
DX: R10.9 Unspecified abdominal pain (principal)
CPT/HCPCS: 74176

== ENCOUNTER → 2019-08-17 11:49 | Outpatient (CLI) | payer MEDICARE, SELFPAY ==
[2019-07-22 15:17] VITALS: BMI 22.4
--- NOTE | 2019-08-17 11:51 | RAD_ITS ---
STUDY: X-RAY - THORACIC SPINE REASON FOR EXAM: Female, 74 years old. Mid and upper back pain after fall TECHNIQUE: 3 view(s) of the thoracic spine were obtained. COMPARISON: 2017 FINDINGS: Normal kyphosis of the thoracic spine. There is no substantial scoliosis. There is demineralization of the thoracic spine with endplate spondylosis. There is multilevel disc space narrowing of the thoracic spine. Peripheral calcifications in the thoracic aorta. RAD/Thoracic Spine 3 Views IMPRESSION: Multilevel degenerative changes, no acute findings Electronically Signed: Deshawn Odonnell MD at 17:04 EDT , Service support ,
== END ==
PROVIDERS: PCP Internal Medicine; Referring Provider Internal Medicine; Visit Provider Internal Medicine
DX: M54.6 Pain in thoracic spine (principal)
CPT/HCPCS: 72072

== ENCOUNTER → 2019-08-30 12:50 | Outpatient (CLI) | payer MEDICARE, SELFPAY ==
--- NOTE | 2019-08-30 13:00 | CT_ITS ---
STUDY: CT ABDOMEN AND PELVIS WITH CONTRAST REASON FOR EXAM: Female, 74 years old. PT STATED BILATERAL FLANK PAIN RADIATION DOSAGE (If Supplied By Facility): CTDIvol = ( 6.55 ) mGy, DLP = ( 813.45 ) mGycm TECHNIQUE: Transaxial images were obtained from the dome of the diaphragm to the symphysis pubis with oral contrast. Oral and amp; IV READII-CAT and amp; 90ML ISOVUE 300 was administered. Sagittal and coronal images were reconstructed. Individualized dose optimization techniques were used for this CT. COMPARISON: Comparison is made with prior study dated August 04, 2019. FINDINGS: The visualized lung bases are unremarkable. Coronary artery calcification. Stable minimal pericardial thickening. Mildly dilated central intrahepatic biliary ducts. Scattered small hepatic cysts. Sludge or multiple small gallstones are seen within the gallbladder lumen. Normal spleen. Normal pancreas. Normal bilateral adrenal glands. Stable 4.8 cm x 4.9 cm cyst in the lower pole of the right kidney. Normal left kidney. Normal visualized stomach. Normal small intestine. Normal colon. The appendix is visualized and appears normal. There is diffuse atherosclerotic calcification of the abdominal aorta and the major visceral branches, without a demonstrated aneurysm. Normal inferior vena cava. Normal retroperitoneum. Normal urinary bladder. There is a 2.3 cm x 2.2 cm cyst in the left ovary. There is a 1.6 cm x 1.4 cm cyst in the right ovary. Normal abdominal wall. There are diffuse degenerative changes of the visualized lumbar spine. CT/Abdomen/Pelvis WITH Contrast IMPRESSION: Findings suggestive of the multiple gallstones or sludge within the gallbladder lumen. Stable right renal cyst as well as bilateral ovarian cysts more prominent on the left side. Electronically Signed: Johnny Gilman, at 14:56 EDT , Service support ,
[2019-08-30 13:35] LABS: CREATININE FINGERSTICK 0.9 mg/dL (0.55-1.02); EGFR FINGERSTICK > 60.0000 mL/min (>60)
== END ==
PROVIDERS: PCP Internal Medicine; Referring Provider Internal Medicine; Visit Provider Internal Medicine
DX: R10.9 Unspecified abdominal pain (principal)
CPT/HCPCS: 74177; Q9967; A4216

== ENCOUNTER 2019-10-23 19:24 | Inpatient (IN) | payer MEDICARE, SELFPAY ==
[2019-10-11 10:33] VITALS: BMI 20.1
[2019-10-23 19:36] VITALS: BP 138/65; PULSE 59; RESP 16; TEMP 36.5; O2SAT 97; BMI 19.9
[2019-10-23] MEDS: Atorvastatin Calcium 80 MG Tablet PO (21:53)
[2019-10-23] MEDS: oxyCODONE 5 MG Tablet PO (21:53)
[2019-10-23 22:00] VITALS: BP 151/69; PULSE 64; RESP 16; TEMP 36.6; O2SAT 97
--- NOTE | 2019-10-24 00:10 | NURSING ---
rn making rounds and found door closed to [phone], rn asked if this worker closed the door and i had not. pt found awake laying on top the blanket and sheet. pt had removed her pa and closed the door. staff reeducated pt that door needed to be open d/t fall risks and for her safety. pt acknowledged. pt repositioned in the bed and denied any other needs when asked . will continue monitor pt closer for needs
--- NOTE | 2019-10-24 00:18 | NURSING ---
During admission and again at [facility] explained use of call light and not getting up by herself, she had a personal alarm attached and the door to her room was left open. After caring for another patient, this nurse was doing midnight rounds noticed her door was closed, went into room to investigate and she was in bed and her personal alarm was on her night stand. She admitted to getting up by herself. Put the personal alarm back on, LESLIE Chamberlain came in to assist and re-educate her on safety and using her call light, her call light was again demonstrated. Will make more frequent rounds and may need to move her closer to the nursing station.
[2019-10-24 05:38] LABS: Absolute Lymphocyte Count 1.53 X10^3/uL (0.83-4.51); Absolute Neutrophil Count 1.7 X10^3/uL (2.0-7.7); Basophil# 0.03 X10^3/uL; Basophil% 0.8 % (0-1); Eosinophil# 0.09 X10^3/uL; Eosinophils% 2.4 % (0-5); Hematocrit 25.5 % (37-47); Hemoglobin 8.1 g/dL (12.0-15.0); Lymphocyte # 1.53 X10^3/ul (4.0); Lymphocyte % 40.4 % (19-41); Mean Corp Hgb Conc 31.8 g/dL (32-36); Mean Corpuscular Hgb 30.8 pg (27.0-32.0); Mean Platelet Vol. 9.6 fl (6.2-12.0); Monocyte# 0.39 X10^3/uL; Monocyte% 10.3 % (0-10); NRBC Flagged by Analyzer 0 % (0-5); Neutrophil # 1.74 X10^3/uL (2.7-7.7); Neutrophil % 45.8 % (47-70); Platelet Count 220 K/mm3 (150-450); RBC Distribution Width CV 12.9 % (11.6-14.6); RBC Distribution Width SD 45.4 fl (35.1-43.9); Red Blood Count 2.63 M/mm3 (4.2-5.4); White Blood Count 3.8 K/mm3 (4.4-11.0)
[2019-10-24] MEDS: Levothyroxine 25 MCG TABLET PO (05:48)
[2019-10-24 05:58] LABS: ALB/GLOB Ratio 0.8 RATIO (0.9-2.4); AST(SGOT) 18 U/L (15-37); Alanine Aminotransfer ALT/SGPT 15 U/L (13-56); Albumin, Serum 2.3 g/dL (3.2-5.0); Alkaline Phosphatase 50 U/L (45-117); Anion Gap 1 (5-15); BUN 19 mg/dL (7-18); BUN/Creat Ratio 21.7 RATIO (10-20); Calcium,Total 8.8 mg/dL (8.5-10.1); Chloride 105 mmol/L (98-107); Creatinine, Serum 0.87 mg/dL (0.55-1.02); EST Glomerular Filtration Rate 67 mL/min (>60); Est Glom Filt Rate - Afr Amer 81 mL/min (>60); Estimated Creatinine Clearance 50.15 ml/min; Glucose 88 mg/dL (74-106); Magnesium 1.6 mg/dL (1.6-2.6); Phosphorus 4.4 mg/dL (2.5-4.9); Potassium 4.1 mmol/L (3.5-5.1); Protein, Total 5.3 g/dL (6.4-8.2); Sodium Level 141 mmol/L (136-145)
[2019-10-24] MEDS: oxyCODONE 5 MG Tablet PO (07:16)
[2019-10-24 07:45] VITALS: BP 144/68; PULSE 63; RESP 16; TEMP 36.8; O2SAT 96
[2019-10-24] MEDS: Multivitamins,Ther W-Minerals Tablet 1 TABLET PO (08:03)
[2019-10-24 08:04] VITALS: O2SAT 96
[2019-10-24] MEDS: Amiodarone 200 MG Tablet PO (08:04)
[2019-10-24] MEDS: Fluticasone 0.05% 1 SPRAY NASAL.SRY 2 SPRAY NASAL (08:04)
[2019-10-24] MEDS: Carvedilol 12.5 MG Tablet PO (08:04)
[2019-10-24] MEDS: Umeclidinium Bromide Inhaler 1 PUFF IH (08:05)
[2019-10-24] MEDS: Pantoprazole Sodium 40 MG Tablet PO (08:06)
[2019-10-24] MEDS: Isosorbide DN 30 MG Tablet PO (08:06)
[2019-10-24] MEDS: Calcium (Elemental) 500 MG Tablet PO (08:06)
[2019-10-24] MEDS: Montelukast 10 MG Tablet PO (08:06)
[2019-10-24] MEDS: Senna/Docusate Sodium 1 Tablet 2 TABLET PO ×2 (08:08→21:23)
--- NOTE | 2019-10-24 12:30 | HP.PCM_ITS ---
Problem List (1) Cervical stenosis of spinal canal Status: Chronic Comment: due to a fall in July of 2019 resulting in a fracture of the odontoid. she was treated conservatively with a [place] J cervical collar. (2) Malnutrition of mild degree Status: Chronic Comment: She has had a 17 lb weight loss from 04/20/19 to 10/24/19 (3) Dementia Status: Chronic Comment: Dr. Gutierrez discussed with Floresita and her son medication to slow down the memory loss however the family decided not to add another medication to her drug regimen (4) Essential hypertension Status: Chronic (5) Anemia Status: Chronic Qualifiers: Anemia type: iron deficiency (6) Carotid stenosis Status: Chronic Qualifiers: Laterality: bilateral Qualified Code(s): I65.23 - Occlusion and stenosis of bilateral carotid arteries Comment: less than 50% BL in Dec (7) GERD (gastroesophageal reflux disease) Status: Chronic (8) Lung nodule Status: Chronic (9) Atherosclerotic heart disease of [place] coronary artery without angina pectoris Status: Chronic Qualifiers: [place] vs. transplanted heart: [place] heart Qualified Code(s): I25.10 - Atherosclerotic heart disease of [place] coronary artery without angina pectoris Comment: Mild to moderate - Cardiac Cath @ [facility] 05/03/09 (10) Moderate persistent asthma Status: Chronic Qualifiers: Asthma complication type: uncomplicated Qualified Code(s): J45.40 - Moderate persistent asthma, uncomplicated (11) COPD (chronic obstructive pulmonary disease) Status: Chronic (12) Paroxysmal atrial fibrillation Status: Chronic (13) Hyperlipidemia Status: Chronic Qualifiers: Hyperlipidemia type: unspecified Qualified Code(s): E78.5 - Hyperlipidemia, unspecified (14) KATINA (obstructive sleep apnea) Status: Chronic (15) History of bone graft Status: Acute Comment: from the R iliac crest on for cervical fusion of C1-3 (16) S/P cervical spinal fusion Status: Acute Comment: [facility] 10/17/19 for cervical canal stenosis caused by fx of the Oontoid due to a fall in July of 2019 (treated conservatively with C collar initially) (17) Osteoporosis Status: Chronic Comment: on BMD in December of 2019 - she is on Prolia (18) Depression Status: Chronic (19) Vitamin D deficiency Status: Chronic (20) Leukopenia Status: Acute (21) Acute on chronic anemia Status: Acute Comment: likely due to blood loss from recent surgical fusion (22) Metabolic alkalosis Status: Acute Comment: due to dehydration/contraction alkalosis (23) History of migraine headaches Status: Chronic (24) Fibromyalgia Status: Chronic (25) Osteoarthritis Status: Chronic (26) Cholelithiasis Status: Chronic (27) Ovarian cyst, bilateral Status: Chronic History of Present Illness Date of Admission: 10/23/19 Chief Complaint: debility due to recent C1-C3 cervical fuion due to cervical canal stenosis resulting from traumatic fracture of the odontoid in July due to a fall. The patient is a 74 year old F with a past medical history of hypertension, iron deficiency anemia, carotid stenosis with less than 50% stenosis bilaterally in December 2018, GERD, lung nodule, coronary artery disease, moderate persistent asthma, COPD, paroxysmal atrial fibrillation, chronic anticoagulation with Xarelto, hyperlipidemia, obstructive sleep apnea, osteoporosis, depression, vitamin D deficiency and dementia who had a fall on Jul 22 2019 resulting in a fracture of the odontoid. She was evaluated by neurosurgery who did not feel that surgical intervention was indicated and she could be treated conservatively with a [place] J collar. 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 Imaging also showed evidence of autofusion from C3 distally and Dr. Price recommended she have C1 -C3 fusion. On 10/17/2019 Floresita underwent an instrumented fusion of C1-C3 with R iliac crest bone graft. The post operative course was unremarkable and without complication. She was transferred to the in acute rehab unit at [facility] on 10/23/2019 for greater than 3 hours of therapy daily to restore her to her prior level of function/independence. She lives with her son Elier in a private one-story home with 2 steps to enter. She moved in with Elier just a few months ago and when she started to talk about this she got very tearful. She wants to live by herself and is upset about loss of independence. She has not been eating well and she has lost 18 lbs since Feb. Past Medical History Past Medical History (Chronic Problems): Chronic Problems (Last Reviewed 04/20/19 @ 18:[address] Irina Carrillo DO) Cervical stenosis of spinal canal (Chronic) due to a fall in July of 2019 resulting in a fracture of the odontoid. she was treated conservatively with a [place] J cervical collar. Malnutrition of mild degree (Chronic) She has had a 17 lb weight loss from 04/20/19 to 10/24/19 KATINA (obstructive sleep apnea) (Chronic) Osteoporosis (Chronic) on BMD in December of 2019 - she is on Prolia Depression (Chronic) Vitamin D deficiency (Chronic) History of migraine headaches (Chronic) Fibromyalgia (Chronic) Osteoarthritis (Chronic) Cholelithiasis (Chronic) Ovarian cyst, bilateral (Chronic) Dementia (Chronic) Dr. Gutierrez discussed with Floresita and her son medication to slow down the memory loss however the family decided not to add another medication to her drug regimen Essential hypertension (Chronic) Anemia (Chronic) Carotid stenosis (Chronic) less than 50% BL in Dec GERD (gastroesophageal reflux disease) (Chronic) Lung nodule (Chronic) Atherosclerotic heart disease of [place] coronary artery without angina pectoris (Chronic) Mild to moderate - Cardiac Cath @ [facility] 05/03/09 Moderate persistent asthma (Chronic) COPD (chronic obstructive pulmonary disease) (Chronic) Paroxysmal atrial fibrillation (Chronic) Hyperlipidemia (Chronic) Medical History: Medical History (Last Reviewed 04/20/19 @ 18:[address] Irina Carrillo, ) Essential hypertension (Chronic) I10 Carotid stenosis (Chronic) I65.29 less than 50% BL in Dec GERD (gastroesophageal reflux disease) (Chronic) K21.9 Lung nodule (Chronic) R91.1 Atherosclerotic heart disease of [place] coronary artery without angina pectoris (Chronic) I25.10 Mild to moderate - Cardiac Cath @ [facility] 05/03/09 Moderate persistent asthma (Chronic) J45.40 COPD (chronic obstructive pulmonary disease) (Chronic) J44.9 Paroxysmal atrial fibrillation (Chronic) I48.0 Hyperlipidemia (Chronic) E78.5 SPINAL INJECTIONS FOR PAIN MANAGEMENT Fibromyalgia M79.7 History of pulmonary embolism Z86.711 Right Chest pain (Resolved) R07.9 Iron deficiency (Resolved) E61.1 Hypertension (Inactive) I10 Allergies No Known Allergies Allergy (Verified 10/11/19 10:43) Home Medications: Ambulatory Orders Medication Instructions Recorded Aspirin [Aspirin, Baby] 81 mg PO DAILY@1200 06/20/15 Atorvastatin Calcium [Lipitor] 80 mg PO QHS 06/20/15 Cholecalciferol (VIT D3) [Vitamin 2,000 unit PO DAILY@1200 06/20/15 D3] Montelukast [Singulair] 10 mg PO DAILY 06/20/15 isosorbide dinitrate 30 mg tablet 30 mg PO DAILY tab 07/01/17 ascorbic acid (vitamin C) 500 mg 500 mg PO DAILY@1200 cap 07/05/17 capsule ferrous sulfate 325 mg (65 mg 325 mg PO DAILY@1200 tab 07/05/17 iron) tablet Amiodarone HCl 200 mg PO DAILY 04/20/19 Calcium (Elemental) [Os-Tk 500] 500 mg PO DAILY 04/20/19 Carvedilol 12.5 mg PO BID 04/20/19 Denosumab [Prolia] 60 mg SQ UD 04/20/19 Dexlansoprazole [Dexilant] 60 mg PO DAILY 04/20/19 Duloxetine HCl 60 mg PO DAILY 04/20/19 Ipratropium [place] 2 spry NASAL TID PRN PRN 04/20/19 Levalbuterol Tartrate 2 puff IH Q6H PRN PRN 04/20/19 [Levalbuterol Tartrate Hfa] Levothyroxine Sodium [Synthroid] 25 mcg PO DAILY 04/20/19 Loratadine [Claritin] 10 mg PO QHS 04/20/19 Mometasone Furoate [Asmanex Hfa] 2 puff PO BID 04/20/19 Multivitamin with Minerals 1 tab PO DAILY 04/20/19 [Multiple Vitamin] Vitamin E (Dl,Tocopheryl Acet) 400 unit PO DAILY 04/20/19 [Vitamin E] Surgical History: Surgical History (Last Reviewed 10/26/19 @ 11:[address] Irina Carrillo, DO) History of foot surgery Z98.890 History of hand surgery Z98.890 History of mandibular surgery Z98.890 History of sinus surgery Z98.890 mole removal Surgical History: - Psychiatric History: No pertinent psych hx [employer] History: ovarian cysts Lives: With Family - A few months ago she moved in with her son Elier and his Caren. Elier told the move was because of her memory loss. Smoking Status: Former smoker - She smoked for approximately 1 year when she was in her 20s. Tobacco Use: Non-smoker Alcohol: None Drugs: None - *Family History Maternal Family History: Family History (Last Reviewed 10/26/19 @ 11:[address] Irina Carrillo DO) Sister Breast cancer Brother Heart disease Sister Diabetes History Items: - - Her mother passed in her 60s from ALS Paternal Family History: Family History (Last Reviewed 10/26/19 @ 11:[address] Irina Carrillo DO) Sister Breast cancer Brother Heart disease Sister Diabetes History Items: Cancer - Her father of bone cancer in his 60s. Sibling Family History: Family History (Last Reviewed 10/26/19 @ 11:[address] Irina Carrillo DO) Sister Breast cancer Brother Heart disease Sister Diabetes History Items: Cancer - She had a sister who in a motor vehicle accident but she had breast cancer as well., Heart Disease - She had a sister who in her early 70s from myocardial infarction. She had a brother who at the age of 70 with coronary artery disease who had CABG and valve problems, - - She had a sister who recently of complications secondary to Alzheimer's disease at the age of 81. Review of Systems Constitutional: Reports: Anorexia, Weakness, Weight Change. Denies: Chills, Fever Eyes: Denies: Blurred vision, Pain HEENT: Reports: Head Aches - has a hx of migraines. Denies: Difficulty Swallowing, Nasal Congestion, Post Nasal Drip, Sinus Congestion, Sinus Drainage, Sore Throat Cardiovascular: Denies: Chest Pain, Edema, Light Headedness, Palpitations Respiratory: Reports: Shortness of breath upon exertion, - - she can not tell me how she is to use her inhalers.....she did tell me that she does not use the inhaler often. Denies: Cough, Shortness of breath at rest, Sputum production, Wheezing Gastrointestinal: Denies: Abdominal Pain, Constipation, Diarrhea, Nausea, Vomiting Genitourinary: Denies: Dysuria Musculoskeletal: Reports: Neck Pain - due to odontoid fracture and then recent Cervical fusion. The bone graft was taken from the right iliac creat and she de nies pain at that site currently Skin: Reports: Wounds - surgical incision in the posterior cervical area. Denies: Jaundice, Rash Neurological: Reports: Balance problems, Confusion - she has poor short term memory. Denies: Change in Speech, Slurred speech, Difficulty swallowing, Focal weakness, Numbness, Tingling, Seizures Psychiatric: Denies: Anxiety, Depression, Homicidal Ideations, Suicidal Ideations Endocrine: Reports: Change in Body Habitus - she has been losing weight Hematologic/ Lymphatic: Reports: Anemia, Easy Bruising, Easy Bleeding, Hx of blood clot. Denies: Adenopathy VTE Information - Inpt Only VTE Present on Admission: No VTE Mechan Device Prophylaxis: SCD's VTE Pharm Prophylaxis ordered?: No Reason prophylaxis not ordered:: Treatment Not Indicated - Xarelto for proximal atrial fibrillation Patient Problems: Active and Suspected Problems (Last Reviewed 04/20/19 @ 18:[address] Irina Carrillo, DO) History of bone graft (Acute) from the R iliac crest on for cervical fusion of C1-3 S/P cervical spinal fusion (Acute) [facility] 10/17/19 for cervical canal stenosis caused by fx of the Oontoid due to a fall in July of 2019 (treated conservatively with C collar initially) Leukopenia (Acute) Acute on chronic anemia (Acute) likely due to blood loss from recent surgical fusion Metabolic alkalosis (Acute) due to dehydration/contraction alkalosis - Physical Exam Vitals/I&O's: Vital Signs Temp Pulse Resp BP Pulse Ox 98.2 F 63 16 144/68 H 96 10/24/19 07:45 10/24/19 07:45 10/24/19 07:45 10/24/19 07:45 10/24/19 08:04 Oxygen Delivery Method Nasal Cannula Weight: 123 lb 7.342 oz Body Mass Index (BMI) 19.9 Intake and Output for Last 24 Hours 10/22/19 10/23/19 10/24/19 23:59 23:59 23:59 Intake Total 860 / 860 Balance 860 / 860 General: Alert, Cooperative, - - thin...admits she has lost a lot of weight. S he is tearful when talking about moving in with her son a few months ago. Affect is flat. she is oriented to person and place but can not tell me the year or the month. She knew the president. HEENT: Atraumatic, PERRLA, EOMI, Normocephalic Oral: No Gingival or Mucosal Lesions/ Ulcerations, Dry Mucosa Neck: Negative Carotid Bruits - COULD NOT EVALUATE DUE TO THE CERVICAL COLLAR, - - can not adequately evaulate the neck due to the presence of a rigid C collar Lungs: Clear to auscultation, Normal air movement, No rhonchi, No wheeze, No rales, - - She is not tachypneic, has no conversational dyspnea and is not using accessory muscles of respiration. Cardiovascular: Regular rate, Regular Rhythm, Normal S1, Normal S2, No murmurs, No rub noted, No Gallop Abdomen: Bowel Sounds Present, Soft, Non Tender, Non-Distended, - - No guarding with palpation Extremities: No clubbing, No cyanosis, No edema, Capillary Refill Less than 3 Seconds, - - She has a trace of pretibial edema. She c/o calf pain but has a negative nissa's sign Skin: No rashes, No breakdown Musculoskeletal: No Tenderness to Palpation of Joints or Extremities, Arthritic Changes Neurological: Cranial nerves II-XII grossly intact, Neuro grossly intact, Motor Exam 5/5 strength throughout Psych/Mental Status: Appropriate, Flat Affect Laboratory Results 10/24/19 05:25: WBC 3.8 L, RBC 2.63 L, Hgb 8.1 L, Hct 25.5 L, MCV 97.0, MCH 30.8, MCHC 31.8 L, RDW Std Deviation 45.4 H, RDW Coeff of Reina 12.9, Plt Count 220, MPV 9.6, Immature Gran % (Auto) 0.300, Neut % (Auto) 45.8 L, Lymph % (Auto) 40.4, [place] % (Auto) 10.3 H, Eos % (Auto) 2.4, Baso % (Auto) 0.8, Absolute Neuts (auto) 1.7 L, Absolute Lymphs (auto) 1.53, Nucleated RBC % 0 10/24/19 05:25: Sodium 141, Potassium 4.1, Chloride 105, Carbon Dioxide 35.0 H, Anion Gap 1 L, BUN 19 H, Creatinine 0.87, Estim Creat Clear Calc 50.15, Est GFR (MDRD) Af Amer 81, Est GFR (MDRD) Non-Af 67, BUN/Creatinine Ratio 21.7 H, Glucose 88, Calcium 8.8, Phosphorus 4.4, Magnesium 1.6, Total Bilirubin 0.40, AST 18, ALT 15, Alkaline Phosphatase 50, Total Protein 5.3 L, Albumin 2.3 L, Globulin 3.0, Albumin/Globulin Ratio 0.8 L Current Medications Acetaminophen (Tylenol) 650 mg PO Q4H PRN PRN PRN Reason: Pain Score 1-3/10 Albuterol Sulfate (Proventil Hfa) 2 puff IH Q4H PRN PRN PRN Reason: SHORTNESS OF BREATH Amiodarone HCl (Cordarone) 200 mg PO DAILY [facility] Last Admin: 10/24/19 08:04 Dose: 200 mg Documented by: Ascorbic Acid (Vitamin C) 500 mg PO DAILY@1200 [facility] Aspirin (Aspirin, Baby) 81 mg PO DAILY@1200 [facility] Atorvastatin Calcium (Lipitor) 80 mg PO QHS [facility] Last Admin: 10/23/19 21:53 Dose: 80 mg Documented by: Bisacodyl (Dulcolax) 10 mg RECTAL .PRN X 1 PRN PRN Reason: Constipation Calcium Carbonate (Os-Tk 500) 500 mg PO DAILY [facility] Last Admin: 10/24/19 08:06 Dose: 500 mg Documented by: Carvedilol (Coreg) 3.125 mg PO BID [facility] Cholecalciferol (Vitamin D (25mcg)) 2,000 unit PO DAILY@1200 [facility] Cyclobenzaprine HCl (Cyclobenzaprine Hcl) 5 mg PO TID PRN PRN Reason: MUSCLE SPASM Ferrous Sulfate (Ferrous Sulfate) 325 mg PO DAILY@1200 [facility] Fluticasone Propionate (Flovent Diskus 250 Mcg) 1 puff INHALATION BID [facility] Last Admin: 10/24/19 08:05 Dose: 1 puff Documented by: Fluticasone Propionate (Flonase Nasal [place]) 2 spray NASAL DAILY [facility] Last Admin: 10/24/19 08:04 Dose: 2 sprays Documented by: Ipratropium [place] (Atrovent Nasal [place] (G)) 2 spray NASAL TID PRN PRN PRN Reason: Nasal Congestion/Breathing Isosorbide Dinitrate (Isordil) 30 mg PO DAILY [facility] Last Admin: 10/24/19 08:06 Dose: 30 mg Documented by: Levothyroxine Sodium (Synthroid) 25 mcg PO DAILY@0600 [facility] Last Admin: 10/24/19 05:48 Dose: 25 mcg Documented by: Magnesium Hydroxide (Milk Of Magnesia) 30 ml PO .PRN X 1 PRN PRN Reason: Constipation Montelukast Sodium (Singulair) 10 mg PO DAILY [facility] Last Admin: 10/24/19 08:06 Dose: 10 mg Documented by: Multivitamins/Minerals (Multivitamin With Minerals (Bkc)) 1 tablet PO DAILY@0800 [facility] Last Admin: 10/24/19 08:03 Dose: 1 tablet Documented by: Nutritional Formula (Lactose Free) (Ensure Enlive) 120 ml PO 4X/DAY [facility] Last Admin: 10/24/19 08:04 Dose: 120 ml Documented by: Oxycodone HCl (Oxyir) 5 mg PO Q4H PRN PRN PRN Reason: Pain Score 4-10/10 Last Admin: 10/24/19 07:16 Dose: 5 mg Documented by: Pantoprazole Sodium (Protonix) 40 mg PO DAILY [facility] Last Admin: 10/24/19 08:06 Dose: 40 mg Documented by: Rivaroxaban (Xarelto) 20 mg PO DAILY@1700 [facility] Senna/Docusate Sodium (Senokot-S, Yen[place]-Colace) 2 tablet PO BID [facility] Last Admin: 10/24/19 08:08 Dose: 2 tablet Documented by: Umeclidinium [place] (Incruse Ellipta Inhaler) 1 puff IH DAILY [facility] Last Admin: 10/24/19 08:05 Dose: 1 puff Documented by: Assessment/Plan All Active Problems (Last Reviewed 04/20/19 @ 18:[address] Irina Carrillo, ) History of bone graft (Acute) S/P cervical spinal fusion (Acute) Leukopenia (Acute) Acute on chronic anemia (Acute) Metabolic alkalosis (Acute) Acute kidney injury superimposed on chronic kidney disease (Resolved) Chest pain (Resolved) Dehydration (Resolved) Iron deficiency (Resolved) Leukopenia (Resolved) Near syncope (Resolved) Impressions 1. Debility secondary to posterior cervical fusion C1-C3 with bone graft from the right iliac crest on 10/17/[address] Price at [facility]. 2. Fracture of the odontoid due to fall on 07/22/2019 3. Metabolic alkalosis -due to dehydration/contraction alkalosis 4. Acute anemia secondary to blood loss on chronic iron deficiency anemia. 5. Leukopenia 6. Dehydration with a serum bicarb of 35 and a BUN/creatinine ratio of 21.7. 7. Borderline low magnesium at 1.6 in a patient with a history of atrial fibrillation. 8. Mildly increased T4 with a TSH of 2.3 9. Depression sx despite Duloxetine 60 mg daily 10. Chronic medical conditions: Hypertension/GERD/hyperlipidemia/coronary artery disease/migraine headaches/probable Alzheimer's dementia/fibromyalgia/bilateral carotid stenosis with less than 50% stenosis in December 2018/lung nodule/moderate persistent asthma/COPD/PAF/chronic anticoagulation with Xarelto/KATINA on CPAP/osteoporosis treated with Prolia//vitamin D deficiency/osteoarthritis/bilateral ovarian cysts/cholelithiasis. These conditions complicate management and prognosis. PLAN PT for gait stability OT for ADL's ST for evaluation Analgesics as needed Bowel protocol Fall precautions Assess for Anxiety/Depression GI prophylaxis with she is chronically on Dexilant DVT prophylaxis not necessary as patient is on Xarelto 20 mg daily for paroxysmal atrial fibrillation AM lab including CMP, CBC, Mag and Phos Start mirtazapine 7.5 mg p.o. nightly and if she tolerates this without daytime somnolence will increase to 15 mg in 7 to 10 days. Add vitamin C to be given with the ferrous sulfate daily to increase absorption since she is chronically on a PPI. Check iron studies. She had a normal B12 in the fall 2017. TSH is within normal limits and she has a very mildly increased T4. Will check an LITO to rule out vasculitis as etiolo gy of the dementia. Brain MRI in June 2019 showed no evidence of normal pressure hydrocephalus. Will defer whether or not to start a medication for suspected Alzheimer's to Dr. Gutierrez. Memory is likely more impaired than usual due to sleep depravation (can not wear CPAP with the cervical collar), undertreated depressions and narcotics for pain control. ST will work with her in addition to PT/OT. I will discuss the importance of starting a medication for memory loss to slow the process down. Follow up with Irina Morales CNP on 11/01/19 at the [facility] [place] We have a RX given to her at [facility] for Percocet #25 and she will be given this RX [place] if she still requires a narcotic for pain relief. Inpatient E&M: [id number] Init Hosp L3
[2019-10-24] MEDS: Ferrous Sulfate 325 MG Tablet PO (13:03)
[2019-10-24] MEDS: Ascorbic Acid 500 MG Tablet PO (13:03)
[2019-10-24] MEDS: Aspirin 81 MG TAB.CHEW PO (13:03)
--- NOTE | 2019-10-24 13:15 | REHABEVAL_ITS ---
Admission Information Primary Diagnosis:: Debility secondary to recent cervical fusion of C1-3 Status Changes from Prescreening?: No changes Identified Actual Problem List:: Falls, Skin Intergrity, Depression, Alteration in Nutrition, Mobility Impaired, Self Care Deficit, Know.Dfct of Medicaitons, BP, Hypertension, Fluid Change-Dehydration, Alteration-Leisure Activ. Potential Problem List:: DVT, Bleeding, Infection, UTI, Aspiration, Falls, Skin Integrity, Depression Risk of Complications DVT: ANCA [place], - - Xarelto 20 mg daily Bleeding: Monitor Lab Values, Nursing to Teach Precautions for anti-coagulation therapy., Wound, if applicable, to be assessed every shift., Stroke patients assessed for lethargy or change in status. Infection: Clinical Staff to Monitor for S/S of infection:, S/S of infection include fever, redness, warmth, etc. Urinary Tract Infection: Monitor for frequency, burning, discomfort, or incontinence., Nursing will obtain urine sample for urinalysis and C&S when ordered. Aspiration: Clinical staff will monitor for coughing, drooling, congestion., Speech will evaluate swallowing and dsyphasia., Nursing will monitor patient swallowing during meals. Falls: Patient will be evaluated for Fall Precautions, Patient will be placed on Fall Precautions as indicated per protocol. Skin Breakdown: Nursing will assess skin daily using assessment tool., Nursing will place on Skin Breakdown Precautions as indicated. Pain: Clinical staff will assess patient's pain level per protocol., Medications will be given, if needed, and the pain level reassessed., Other methods: Massage, distraction, decrease stimulus, etc. used PRN. Plan of Care Patient requires physician specializing in physical medicine and rehab oversight to provide close medical supervision of rehab issues including: Pain Management, Sleep Problems, Bowel and Bladder, Medical and co-morbidity Management, DVT prophylaxis, Rehabilitation Leadership, Coordination of treatment team Patient needs Physical Therapy: For a minimum of 1 hour, At least 5 out of 7 days Patient needs Physical Therapy to improve:: Mobility, Mobility, Mobility, Strengthening, Transfers, Stretching, ROM, Endurance, Stairs, Gait, Balance Patient needs Occupational Therapy: For a minimum of 1 hour, At least 5 out of 7 days Patient needs Occupational Therapy to improve ADL's incl.: Eating, Grooming, Bathing, Dressing, Toileting, Toilet transfers, Community Reintegration, Higher functioning activities, Household tasks, Adaptive Equipment, Splinting, Other activities as determined Patient requires speech therapy: For a minimum of 1 hour, At least 5 out of 7 days Patient requires speech therapy for: Cognition, Language Skills, Compensatory Strategies Patient requires 24/ Rehabilitation Nursing for: Pain Issues, Identifying and preventing risk factors, Monitoring and reporting current medical conditions, Assisting with ambulation, transfer, and all ADL's, Teaching patients about disease process and medications, Family teaching, Providing safe environment, Bowel and Bladder Issues, Skin integrity, Medication Management Patient needs Telephone Lineman/ Case Management for: Discharge Planning, Arranging Home Equipment or Services, Family Interventions Patient needs Dietary and Nutrition Services for: Adequate Nutrition, Nutritional Supplements, Nutritional Education Goals Patient will remain: free from falls, or injury at time of discharge. Patient will perform bed mobility at: MOD I level of assist. Patient will complete transfers from bed to chair at: MOD I level of assist. Patient will ambulate: with MOD I assist, with standby assist, with LRD, - - 300 feet Patient will propel wheelchair: - - N/A Patient will complete upper body dressing at: MOD I level of assist. Patient will complete lower body dressing at: MOD I level of assist. Patient will complete toileting at: MOD I level of assist. Patient will perform bathing at: Standby Assist. Patient will complete grooming at: MOD I level of assist. Patient will complete home management skills at: MOD I level of assist. Patient will achieve: at MOD I assist, with standby assist, - - 1 step Patient will have pain level of: of 3 or less Patient's skin will: remain intact, free from infection. Patient will receive: adequate nutrition. Discharge Planning Pt Prognosis for Sig. Practical Improv. w/in Reasonable Time: Good Estimated Length of stay (days): 14 Anticipated D/C Destination: Home with Home Health Was Preadmission Assessment Accurate?: Yes
[2019-10-24 16:14] LABS: Rheumatoid Factor < 10.0 IU/mL (<15); T4 Free Direct 1.53 ng/dL (0.76-1.46)
[2019-10-24] MEDS: Rivaroxaban 20 MG Tablet PO (16:34)
[2019-10-24] MEDS: Ipratropium Bromide 0.06% NASAL SPRAY 2 SPRAY NASAL (21:21)
[2019-10-24] MEDS: Mirtazapine 15 MG Tablet 7.5 MG PO (21:22)
[2019-10-24] MEDS: Atorvastatin Calcium 80 MG Tablet PO (21:22)
[2019-10-24] MEDS: Carvedilol 3.125 MG TABLET PO (21:22)
[2019-10-24 22:00] VITALS: BP 114/51; PULSE 59; RESP 16; TEMP 37; O2SAT 95
[2019-10-25] MEDS: Ipratropium Bromide 0.06% NASAL SPRAY 2 SPRAY NASAL ×3 (05:29→21:43)
[2019-10-25 05:30] VITALS: BP 141/57; BP 146/76; BP 151/78; PULSE 69; PULSE 71
[2019-10-25] MEDS: Levothyroxine 25 MCG TABLET PO (05:30)
[2019-10-25] MEDS: oxyCODONE 5 MG Tablet PO ×3 (05:39→20:55)
[2019-10-25 06:26] LABS: Blood Gas Specimen Type VEN; VBG BASE EXCESS 4 mmol/L (-1.0-3.5); VBG Bicarbonate 28 mmol/L (22-26); VBG Oxygen Content 30 mmol/L (23-33); VBG PO2 187 mmHg (25-40); VBG SO2 100 % (50-70); VBG pCO2 40.3 mmHg (41-51); VBG pH 7.45 (7.32-7.42)
[2019-10-25] MEDS: Pantoprazole Sodium 40 MG Tablet PO (08:01)
[2019-10-25] MEDS: Carvedilol 3.125 MG TABLET PO ×2 (08:02→20:54)
[2019-10-25] MEDS: Amiodarone 200 MG Tablet PO (08:02)
[2019-10-25] MEDS: Multivitamins,Ther W-Minerals Tablet 1 TABLET PO (08:02)
[2019-10-25] MEDS: Isosorbide DN 30 MG Tablet PO (08:02)
[2019-10-25] MEDS: Calcium (Elemental) 500 MG Tablet PO (08:02)
[2019-10-25] MEDS: Montelukast 10 MG Tablet PO (08:02)
[2019-10-25] MEDS: Senna/Docusate Sodium 1 Tablet 2 TABLET PO ×2 (08:04→20:55)
[2019-10-25] MEDS: Umeclidinium Bromide Inhaler 1 PUFF IH (08:25)
[2019-10-25 09:17] VITALS: BP 141/57; PULSE 69; RESP 16; TEMP 37.1; O2SAT 96
--- NOTE | 2019-10-25 10:20 | PCM.PN.BLA ---
Progress Note Fluid intake was 1580 yesterday BP is mildly elevated - I suspect due to pain and stress - no need to treat at this time oral intake is improved today All lab was reviewed. The VBG is consistent with contraction alkalosis and not with primary resp acidosis. TSH is normal but T4 is mildly increased. RA is negative and the LITO is pending. Alert, oriented to person and place. Pleasant. Lungs - CTA H-RRR, no gallop abd - soft, NT, BS's are present, no guarding with palpation no peripheral edema MM are still dry Palpebral conjunctiva is pale. Impressions 1. debility due to recent C1-C3 cervical fusion 2. contraction alkalosis 3. dehydration 4. Acute on chronic anemia 5. Dementia 6. Undertreated depression-Remeron was added to her drug regimen. Continue therapy Encourage her to increase her fluid intake Recheck lab in a few days Orthostatics were negative. Would like to talk with her son at some oint about how she was doing at home and any assistance they may need post DC. STROKE Vital Signs/Narrative: Vital Signs Temp Pulse Resp BP Pulse Ox 10/25/19 09:17 98.7 F 69 16 141/57 H 96 Inpatient E&M: 76698 Subs Hosp L2
[2019-10-25] MEDS: Ascorbic Acid 500 MG Tablet PO (11:51)
[2019-10-25] MEDS: Aspirin 81 MG TAB.CHEW PO (11:51)
[2019-10-25] MEDS: Ferrous Sulfate 325 MG Tablet PO (11:51)
[2019-10-25] MEDS: Acetaminophen 325 MG Tablet 650 MG PO ×2 (13:38→20:55)
--- NOTE | 2019-10-25 14:35 | CHAPLAIN ---
Type of Pastoral Visit ___ Initial Visit ___ Follow-up Visit ___ On-call Visit ___ General Patient Visit ___ Spiritual Assessment ___ Family Conference ___ Bereavement ___ Rapid Response ___ Code Blue ___ Other (describe below) Pastoral Care Referral From ___ Patient ___ Family ___ Nurse ___ Physician ___ Compatibility Test Engineer ___ Butter Grader ___ Other (describe below) Sacrament/Intervention ___ Active listening ___ Anointing ___ Latter-Day ___ Bereavement ___ Communion ___ Tiny exploration ___ ___ Life review ___ Prayer ___ Reconciliation ___ Sacrament of Sick ___ Supportive presence ___ Wedding ___ Other (describe below) Pastoral Comments attempts made to visit with patient but she was occupied with therapy sessions
[2019-10-25] MEDS: Rivaroxaban 20 MG Tablet PO (17:41)
[2019-10-25 19:43] VITALS: BP 110/48; PULSE 65; RESP 16; TEMP 36.9; O2SAT 97
[2019-10-25 20:52] VITALS: BP 138/58; PULSE 65
[2019-10-25] MEDS: Atorvastatin Calcium 80 MG Tablet PO (20:54)
[2019-10-25] MEDS: Mirtazapine 15 MG Tablet 7.5 MG PO (20:54)
[2019-10-26] MEDS: Levothyroxine 25 MCG TABLET PO (05:35)
[2019-10-26] MEDS: Ipratropium Bromide 0.06% NASAL SPRAY 2 SPRAY NASAL ×3 (05:36→22:28)
[2019-10-26] MEDS: oxyCODONE 5 MG Tablet PO ×4 (05:42→22:27)
[2019-10-26] MEDS: Acetaminophen 325 MG Tablet 650 MG PO ×2 (05:43→19:57)
[2019-10-26 07:37] VITALS: O2SAT 95
[2019-10-26] MEDS: Umeclidinium Bromide Inhaler 1 PUFF IH (08:15)
[2019-10-26] MEDS: Carvedilol 3.125 MG TABLET PO ×2 (08:16→22:28)
[2019-10-26] MEDS: Multivitamins,Ther W-Minerals Tablet 1 TABLET PO (08:16)
[2019-10-26] MEDS: Amiodarone 200 MG Tablet PO (08:16)
[2019-10-26] MEDS: Isosorbide DN 30 MG Tablet PO (08:17)
[2019-10-26] MEDS: Calcium (Elemental) 500 MG Tablet PO (08:17)
[2019-10-26] MEDS: Senna/Docusate Sodium 1 Tablet 2 TABLET PO (08:17)
[2019-10-26] MEDS: Montelukast 10 MG Tablet PO (08:17)
[2019-10-26] MEDS: Pantoprazole Sodium 40 MG Tablet PO (08:17)
[2019-10-26 08:22] VITALS: BP 129/67; PULSE 66; RESP 18; TEMP 36.4; O2SAT 96
[2019-10-26] MEDS: Aspirin 81 MG TAB.CHEW PO (11:43)
[2019-10-26] MEDS: Ascorbic Acid 500 MG Tablet PO (11:43)
[2019-10-26] MEDS: Ferrous Sulfate 325 MG Tablet PO (11:43)
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
[2019-10-26 13:42] LABS: ANTINUCLEAR ANTIBODIES DIRECT Negative (Negative)
--- NOTE | 2019-10-26 14:18 | CASEMGMT ---
Social Work IDT met with patient for Team meeting. Discussed patient's progress in therapy. Pt is SBA for transfers, ambulating with FWW and will trial w/o device as it may do more harm than good due to neck brace. Pt is SBA to CGA for all ADLS. ST working with pt on cognition and safety awareness. Nursing is encouraging hydration. Explained [facility] GIRON with NRD 11/01 and continued stay is not guaranteed. The goal is for pt to return home with son and DIL; however, pt has flat affect and very soft spoken. Will continue to monitor and visit for support. Will speak with family prior to DC to assess home safety. Tova Keane, CAFE SITE ATTENDANT SUPERVISOR [employer]
[2019-10-26] MEDS: Rivaroxaban 20 MG Tablet PO (16:08)
--- NOTE | 2019-10-26 16:38 | CHAPLAIN ---
Type of Pastoral Visit _x__ Initial Visit ___ Follow-up Visit ___ On-call Visit ___ General Patient Visit ___ Spiritual Assessment ___ Family Conference ___ Bereavement ___ Rapid Response ___ Code Blue ___ Other (describe below) Pastoral Care Referral From _x__ Patient ___ Family ___ Nurse ___ Physician ___ Immigration Paralegal ___ Meat Scrubber ___ Other (describe below) Sacrament/Intervention _x__ Active listening ___ Anointing ___ Methodist ___ Bereavement ___ Communion ___ Tiny exploration ___ ___ Life review _x__ Prayer ___ Reconciliation ___ Sacrament of Sick _x__ Supportive presence ___ Wedding ___ Other (describe below) Pastoral Comments introduced self and role to patient; pt states that she has some nausea and may not want to visit long; pt is gracious and gives some summary of her life; pt welcomes a prayer and a future visit
[2019-10-26 19:35] VITALS: BP 118/72; PULSE 67; RESP 18; TEMP 36.6; O2SAT 98
[2019-10-26] MEDS: Mirtazapine 15 MG Tablet 7.5 MG PO (22:27)
[2019-10-26] MEDS: Atorvastatin Calcium 80 MG Tablet PO (22:28)
[2019-10-27] MEDS: Levothyroxine 25 MCG TABLET PO (05:16)
[2019-10-27] MEDS: Ipratropium Bromide 0.06% NASAL SPRAY 2 SPRAY NASAL ×3 (05:16→19:56)
[2019-10-27 05:43] LABS: Hematocrit 25.9 % (37-47); Hemoglobin 8.2 g/dL (12.0-15.0); Mean Corp Hgb Conc 31.7 g/dL (32-36); Mean Corpuscular Hgb 30.4 pg (27.0-32.0); Mean Corpuscular Volume 95.9 fL (81-99); Mean Platelet Vol. 9.5 fl (6.2-12.0); Platelet Count 317 K/mm3 (150-450); RBC Distribution Width CV 12.6 % (11.6-14.6); White Blood Count 4.3 K/mm3 (4.4-11.0)
[2019-10-27 06:05] LABS: Anion Gap 5 (5-15); BUN 25 mg/dL (7-18); Calcium,Total 9.1 mg/dL (8.5-10.1); Chloride 102 mmol/L (98-107); Creatinine, Serum 0.93 mg/dL (0.55-1.02); EST Glomerular Filtration Rate 63 mL/min (>60); Est Glom Filt Rate - Afr Amer 76 mL/min (>60); Estimated Creatinine Clearance 49.43 ml/min; Glucose 92 mg/dL (74-106); Magnesium 1.7 mg/dL (1.6-2.6); Potassium 3.7 mmol/L (3.5-5.1); Sodium Level 138 mmol/L (136-145)
[2019-10-27 07:25] VITALS: BP 138/69; PULSE 68; RESP 16; TEMP 36.6; O2SAT 97
[2019-10-27] MEDS: Multivitamins,Ther W-Minerals Tablet 1 TABLET PO (08:00)
[2019-10-27] MEDS: Amiodarone 200 MG Tablet PO (08:00)
[2019-10-27] MEDS: Carvedilol 3.125 MG TABLET PO ×2 (08:00→19:56)
[2019-10-27] MEDS: Pantoprazole Sodium 40 MG Tablet PO (08:01)
[2019-10-27] MEDS: Calcium (Elemental) 500 MG Tablet PO (08:01)
[2019-10-27] MEDS: Isosorbide DN 30 MG Tablet PO (08:01)
[2019-10-27] MEDS: Montelukast 10 MG Tablet PO (08:02)
[2019-10-27] MEDS: Umeclidinium Bromide Inhaler 1 PUFF IH (08:03)
[2019-10-27] MEDS: Ferrous Sulfate 325 MG Tablet PO (12:02)
[2019-10-27] MEDS: Ascorbic Acid 500 MG Tablet PO (12:02)
[2019-10-27] MEDS: Aspirin 81 MG TAB.CHEW PO (12:02)
[2019-10-27] MEDS: oxyCODONE 5 MG Tablet PO (12:02)
--- NOTE | 2019-10-27 15:53 | CASEMGMT ---
Social Work Spoke with pt's son to provide update from Team meeting. Explained insurance coverage and possible DC after NRD 11/01. Son is agreeable for pt to return home with them. Inquired about pt hx. Son explained pt was having difficulty remembering to take meds and eating meals when living alone, os they decided to move her in with son and DIL. DIl assists with bathing and dressing, if needed and going to 'jose appts. Son stated she sees Dr. Navarrete for neurology and sleep apnea, Dr. Gutierrez PCP. have completed tests to conclude pt has Dementia and discussed starting pt on meds but decided to not start meds. Son denied physician to start meds during stay. Inquired about pts mood and eating correlation. Son reported no issues with mood noted. Pt did use [facility] agency prior - DIL to notify SW of that agency to restart at DC. Son reports no DME needed. Encouraged son or DIL to attend Team . Will continue to follow. Tova Keane, DIP DYER DIGITAL ARTIST
[2019-10-27] MEDS: Rivaroxaban 20 MG Tablet PO (16:30)
[2019-10-27 19:38] VITALS: BP 113/66; PULSE 66; RESP 17; TEMP 36.7; O2SAT 96
--- NOTE | 2019-10-27 19:50 | NURSING ---
pt noted to be up walking near recliner and rearranging bedside table with pa still attached to shirt. this nurse re-educates pt on use of call light and asking for assistance. call light within reach. PA attached.
[2019-10-27] MEDS: Atorvastatin Calcium 80 MG Tablet PO (19:57)
[2019-10-27] MEDS: Mirtazapine 15 MG Tablet 7.5 MG PO (19:57)
[2019-10-28] MEDS: Levothyroxine 25 MCG TABLET PO (05:13)
[2019-10-28] MEDS: Ipratropium Bromide 0.06% NASAL SPRAY 2 SPRAY NASAL ×3 (05:14→21:04)
[2019-10-28] MEDS: oxyCODONE 5 MG Tablet PO ×3 (05:15→21:00)
[2019-10-28] MEDS: Umeclidinium Bromide Inhaler 1 PUFF IH (07:36)
[2019-10-28] MEDS: Amiodarone 200 MG Tablet PO (07:36)
[2019-10-28] MEDS: Multivitamins,Ther W-Minerals Tablet 1 TABLET PO (07:36)
[2019-10-28] MEDS: Carvedilol 3.125 MG TABLET PO ×2 (07:36→21:02)
[2019-10-28] MEDS: Calcium (Elemental) 500 MG Tablet PO (07:37)
[2019-10-28] MEDS: Pantoprazole Sodium 40 MG Tablet PO (07:37)
[2019-10-28] MEDS: Isosorbide DN 30 MG Tablet PO (07:37)
[2019-10-28] MEDS: Montelukast 10 MG Tablet PO (07:38)
[2019-10-28 07:41] VITALS: BP 155/91; PULSE 71; RESP 16; TEMP 36.6; O2SAT 97
[2019-10-28] MEDS: Ascorbic Acid 500 MG Tablet PO (13:00)
[2019-10-28] MEDS: Aspirin 81 MG TAB.CHEW PO (13:00)
[2019-10-28] MEDS: Ferrous Sulfate 325 MG Tablet PO (13:00)
[2019-10-28] MEDS: Rivaroxaban 20 MG Tablet PO (16:10)
[2019-10-28 19:42] VITALS: BP 118/60; PULSE 65; RESP 18; TEMP 36.8; O2SAT 98
[2019-10-28] MEDS: Senna/Docusate Sodium 1 Tablet 2 TABLET PO (21:01)
[2019-10-28] MEDS: Mirtazapine 15 MG Tablet 7.5 MG PO (21:02)
[2019-10-28] MEDS: Atorvastatin Calcium 80 MG Tablet PO (21:02)
[2019-10-28 21:09] VITALS: O2SAT 0
[2019-10-29] MEDS: Ipratropium Bromide 0.06% NASAL SPRAY 2 SPRAY NASAL ×3 (06:12→20:47)
[2019-10-29] MEDS: Levothyroxine 25 MCG TABLET PO (06:13)
[2019-10-29] MEDS: Amiodarone 200 MG Tablet PO (07:21)
[2019-10-29] MEDS: Multivitamins,Ther W-Minerals Tablet 1 TABLET PO (07:21)
[2019-10-29] MEDS: Umeclidinium Bromide Inhaler 1 PUFF IH (07:22)
[2019-10-29] MEDS: Carvedilol 3.125 MG TABLET PO ×2 (07:22→20:50)
[2019-10-29] MEDS: Isosorbide DN 30 MG Tablet PO (07:22)
[2019-10-29] MEDS: Calcium (Elemental) 500 MG Tablet PO (07:23)
[2019-10-29] MEDS: Montelukast 10 MG Tablet PO (07:23)
[2019-10-29] MEDS: Pantoprazole Sodium 40 MG Tablet PO (07:23)
[2019-10-29 07:29] VITALS: BP 128/58; PULSE 68; RESP 16; TEMP 36.6; O2SAT 95
[2019-10-29] MEDS: Ferrous Sulfate 325 MG Tablet PO (11:12)
[2019-10-29] MEDS: Aspirin 81 MG TAB.CHEW PO (11:12)
[2019-10-29] MEDS: Ascorbic Acid 500 MG Tablet PO (11:13)
[2019-10-29] MEDS: Rivaroxaban 20 MG Tablet PO (15:57)
[2019-10-29] MEDS: oxyCODONE 5 MG Tablet PO ×2 (15:57→20:55)
[2019-10-29 19:00] VITALS: BP 122/54; PULSE 68; RESP 16; TEMP 36.5; O2SAT 100
[2019-10-29] MEDS: Atorvastatin Calcium 80 MG Tablet PO (20:55)
[2019-10-29] MEDS: Senna/Docusate Sodium 1 Tablet 2 TABLET PO (20:57)
[2019-10-29] MEDS: Mirtazapine 15 MG Tablet 7.5 MG PO (20:58)
[2019-10-30] MEDS: Acetaminophen 325 MG Tablet 650 MG PO ×2 (03:15→21:20)
[2019-10-30] MEDS: Ipratropium Bromide 0.06% NASAL SPRAY 2 SPRAY NASAL ×3 (05:08→21:07)
[2019-10-30] MEDS: Levothyroxine 25 MCG TABLET PO (05:09)
[2019-10-30 07:20] VITALS: BP 141/56; PULSE 62; RESP 18; TEMP 36.6; O2SAT 98
[2019-10-30] MEDS: Multivitamins,Ther W-Minerals Tablet 1 TABLET PO (07:36)
[2019-10-30] MEDS: Carvedilol 3.125 MG TABLET PO ×2 (07:37→21:22)
[2019-10-30] MEDS: Amiodarone 200 MG Tablet PO (07:37)
[2019-10-30] MEDS: Umeclidinium Bromide Inhaler 1 PUFF IH (07:37)
[2019-10-30] MEDS: Senna/Docusate Sodium 1 Tablet 2 TABLET PO ×2 (07:38→21:21)
[2019-10-30] MEDS: Isosorbide DN 30 MG Tablet PO (07:38)
[2019-10-30] MEDS: Montelukast 10 MG Tablet PO (07:38)
[2019-10-30] MEDS: Pantoprazole Sodium 40 MG Tablet PO (07:38)
[2019-10-30] MEDS: Calcium (Elemental) 500 MG Tablet PO (07:38)
[2019-10-30] MEDS: oxyCODONE 5 MG Tablet PO ×3 (07:43→21:20)
--- NOTE | 2019-10-30 08:24 | PCM.PN.BLA ---
Progress Note Afebrile since admission VSS-blood pressure is well controlled and the heart rate is within normal limits. Maintaining appropriate oxygen saturation on RA Oral intake is very good Discussed with nursing - no problems that need addressed Reviewed the PT/OT/ST notes Medication list reviewed. Pleasant, NAD, alert and oriented X 3 Lungs - CTA H - regular with an occasional ectopic abd - soft NT no calf pain Impressions 1. hyponatremia 2. heme + stool in association with declining HGB in a pt on Apixaban for PAF 3. dehydration 4. Alzheimer's dementia check lab in the AM....if the BUN is still elevated then I suspect the elevation may be coming from a GI bleed and at some point she will need and endoscopy. Stool is heme +. She is on Protonix and an iron supplement however, she is also on Xarelto chronically STROKE Vital Signs/Narrative: Vital Signs Temp Pulse Resp BP Pulse Ox 10/30/19 07:20 97.9 F 62 18 141/56 H 98 Inpatient E&M: [id number] Subs Hosp L1
[2019-10-30] MEDS: Aspirin 81 MG TAB.CHEW PO (11:30)
[2019-10-30] MEDS: Ferrous Sulfate 325 MG Tablet PO (11:30)
[2019-10-30] MEDS: Ascorbic Acid 500 MG Tablet PO (11:30)
[2019-10-30] MEDS: Rivaroxaban 20 MG Tablet PO (16:45)
[2019-10-30 21:07] VITALS: BP 136/56; PULSE 67; RESP 16; TEMP 37.2; O2SAT 96
[2019-10-30] MEDS: Mirtazapine 15 MG Tablet 7.5 MG PO (21:21)
[2019-10-30] MEDS: Atorvastatin Calcium 80 MG Tablet PO (21:22)
[2019-10-31 05:36] LABS: Hematocrit 24.4 % (37-47); Hemoglobin 7.8 g/dL (12.0-15.0); Mean Corpuscular Hgb 30.6 pg (27.0-32.0); Mean Corpuscular Volume 95.7 fL (81-99); Mean Platelet Vol. 9.6 fl (6.2-12.0); Platelet Count 379 K/mm3 (150-450); RBC Distribution Width CV 12.6 % (11.6-14.6); Red Blood Count 2.55 M/mm3 (4.2-5.4)
[2019-10-31 05:52] LABS: Anion Gap 6 (5-15); BUN 35 mg/dL (7-18); Calcium,Total 8.6 mg/dL (8.5-10.1); Chloride 96 mmol/L (98-107); Creatinine, Serum 0.95 mg/dL (0.55-1.02); EST Glomerular Filtration Rate 61 mL/min (>60); Est Glom Filt Rate - Afr Amer 74 mL/min (>60); Estimated Creatinine Clearance 48.39 ml/min; Glucose 90 mg/dL (74-106); Magnesium 1.6 mg/dL (1.6-2.6); Phosphorus 4.1 mg/dL (2.5-4.9); Potassium 4.1 mmol/L (3.5-5.1); Sodium Level 133 mmol/L (136-145)
[2019-10-31] MEDS: Ipratropium Bromide 0.06% NASAL SPRAY 2 SPRAY NASAL ×3 (06:10→21:09)
[2019-10-31] MEDS: Levothyroxine 25 MCG TABLET PO (06:10)
[2019-10-31] MEDS: Acetaminophen 325 MG Tablet 650 MG PO ×2 (06:10→23:12)
[2019-10-31] MEDS: oxyCODONE 5 MG Tablet PO ×3 (06:10→21:17)
[2019-10-31] MEDS: Umeclidinium Bromide Inhaler 1 PUFF IH (07:50)
[2019-10-31] MEDS: Multivitamins,Ther W-Minerals Tablet 1 TABLET PO (07:50)
[2019-10-31] MEDS: Amiodarone 200 MG Tablet PO (07:51)
[2019-10-31] MEDS: Carvedilol 3.125 MG TABLET PO ×2 (07:51→21:14)
[2019-10-31] MEDS: Isosorbide DN 30 MG Tablet PO (07:51)
[2019-10-31] MEDS: Calcium (Elemental) 500 MG Tablet PO (07:51)
[2019-10-31] MEDS: Montelukast 10 MG Tablet PO (07:52)
[2019-10-31] MEDS: Pantoprazole Sodium 40 MG Tablet PO (07:52)
[2019-10-31 09:03] VITALS: BP 150/78; PULSE 66; RESP 14; TEMP 36.6; O2SAT 98
[2019-10-31] MEDS: Ferrous Sulfate 325 MG Tablet PO (11:26)
[2019-10-31] MEDS: Aspirin 81 MG TAB.CHEW PO (11:26)
[2019-10-31] MEDS: Ascorbic Acid 500 MG Tablet PO (11:27)
[2019-10-31] MEDS: Rivaroxaban 20 MG Tablet PO (16:21)
[2019-10-31] MEDS: Mirtazapine 15 MG Tablet 7.5 MG PO (21:13)
[2019-10-31] MEDS: Atorvastatin Calcium 80 MG Tablet PO (21:13)
[2019-10-31] MEDS: Senna/Docusate Sodium 1 Tablet 2 TABLET PO (21:13)
[2019-10-31 21:43] VITALS: BP 140/59; PULSE 69; RESP 18; TEMP 36.6; O2SAT 100
[2019-11-01] MEDS: Ipratropium Bromide 0.06% NASAL SPRAY 2 SPRAY NASAL ×3 (05:10→20:19)
[2019-11-01] MEDS: oxyCODONE 5 MG Tablet PO ×3 (05:10→20:18)
[2019-11-01] MEDS: Levothyroxine 25 MCG TABLET PO (05:10)
[2019-11-01] MEDS: Umeclidinium Bromide Inhaler 1 PUFF IH (07:46)
[2019-11-01] MEDS: Amiodarone 200 MG Tablet PO (07:48)
[2019-11-01] MEDS: Isosorbide DN 30 MG Tablet PO (07:48)
[2019-11-01] MEDS: Pantoprazole Sodium 40 MG Tablet PO (07:48)
[2019-11-01] MEDS: Calcium (Elemental) 500 MG Tablet PO (07:48)
[2019-11-01] MEDS: Montelukast 10 MG Tablet PO (07:48)
[2019-11-01] MEDS: Multivitamins,Ther W-Minerals Tablet 1 TABLET PO (07:48)
[2019-11-01] MEDS: Carvedilol 3.125 MG TABLET PO ×2 (07:48→20:21)
[2019-11-01 07:50] VITALS: BP 150/73; PULSE 72; RESP 16; TEMP 36.7; O2SAT 96
--- NOTE | 2019-11-01 09:54 | PN_ITS ---
Progress Note Afebrile VSS Maintaining appropriate oxygen saturation on RA Oral intake is good weight has decreased 1 and 1/2 lbs since admission to the rehab unit Discussed with nursing - no problems that need addressed Reviewed the PT/OT/ST notes Medication list reviewed. check urine sodium and spot creat.....she has had very good oral fluid intake so I doubt the increase in the BUN is due to dehydration. I suspect it is due to a GI bleed. she is on a PPI. No nausea and no vomiting and no c/o abd pain. Will transfuse if the HGB drops to less than 7.5. Recheck HH in AM. May need endoscopy following DC to ID the source of the bleeding. She will need to continue Xarelto for PAF but will consider holding for a few days if the HGB continues to drop She states that she is sleeping well. The collar is annoying but not painful. She is eating well and she is interactive with staff and smiling. Denies N/V/abd pain/dysuria. Likes going to therapy. Alert, pleasant, NAD Lungs - CTA HRRR abd soft and non-tender to palpation she has mild peripheral edema that is controlled by the compression stockings 1. S/P fall in July resulting in a fracture of the odontoid - initially treated conservatively with a [place] J collar however the pt was non-compliant with wearing the collar and then had to have a cervical fusion. She is unsupervised a good deal of the time at home because her dtr-in-law works nights and sleeps during the day and her son works days and sleeps at night. I feel she likely needs supervision 24 hours a day. I think she would benefit from possibly going to a senior center a couple times a week for socialization and planned activities. 2. Poor oral intake with dehydration. Has had falls in the past due to lightheadedness. You have to remind her to drink water. She does very well when reminded. 3. Alzheimer's dementia. Family declined a medication to slow down memory loss when Dr. Gutierrez explained this to them. I discussed this with the pt. Her sister of complications due to Alzheimers. Floresita told me that she would like to take a medication to slow down the memory loss if one was available. 4. chronic anticoagulation with Xarelto. 5. Heme + stool 6. hyponatremia 7. elevated BUN/CREAT ratio with decreasing HGB - suspect the elevated BUN may at least in part be due to blood in the GI tract check a urine sodium and creat and calculate a FENa. Will discuss with the SW possibly approaching the family about the senior center. They have not been in favor of any changes we have recommended so far but, I think the pt would benefit from more socialization with people her age and also seems to like activity and talking with the staff......seems to be thriving in rehab recheck an HH in the AM STROKE Vital Signs/Narrative: Vital Signs Temp Pulse Resp BP Pulse Ox 11/01/19 07:50 98.0 F 72 16 150/73 H 96 Inpatient E&M: [id number] Subs Hosp L2
[2019-11-01] MEDS: Ferrous Sulfate 325 MG Tablet PO (12:15)
[2019-11-01] MEDS: Ascorbic Acid 500 MG Tablet PO (12:15)
[2019-11-01] MEDS: Aspirin 81 MG TAB.CHEW PO (12:15)
[2019-11-01 14:00] LABS: Urine Sodium 36 mmol/L (Not Establ.)
[2019-11-01] MEDS: Rivaroxaban 20 MG Tablet PO (16:14)
[2019-11-01] MEDS: 0.9% Normal Saline 1,000 ML 100 ML IV (18:23)
--- NOTE | 2019-11-01 18:30 | NURSING ---
22G IV placed in Lt AC, Pt tolerated well. NS @100ml/hr started at this time.
[2019-11-01 20:02] VITALS: BP 105/63; PULSE 63; RESP 17; TEMP 36.8; O2SAT 97
[2019-11-01] MEDS: Atorvastatin Calcium 80 MG Tablet PO (20:20)
[2019-11-01] MEDS: Mirtazapine 15 MG Tablet 7.5 MG PO (20:20)
[2019-11-01] MEDS: Senna/Docusate Sodium 1 Tablet 2 TABLET PO (20:22)
[2019-11-01] MEDS: Acetaminophen 325 MG Tablet 650 MG PO (22:22)
[2019-11-02] VITALS (10 sets, daily range): BP systolic 120–161; BP diastolic 46–72; PULSE 62–69; RESP 16–18; TEMP 36.5–36.7; O2SAT 95–99
[2019-11-02] MEDS: 0.9% Normal Saline 1,000 ML 100 ML IV (04:15)
[2019-11-02] MEDS: Ipratropium Bromide 0.06% NASAL SPRAY 2 SPRAY NASAL ×3 (04:52→20:07)
[2019-11-02] MEDS: Acetaminophen 325 MG Tablet 650 MG PO ×2 (04:53→13:04)
[2019-11-02] MEDS: Levothyroxine 25 MCG TABLET PO (04:53)
[2019-11-02 05:48] LABS: Hematocrit 24.2 % (37-47); Hemoglobin 7.6 g/dL (12.0-15.0)
[2019-11-02] MEDS: Multivitamins,Ther W-Minerals Tablet 1 TABLET PO (07:36)
[2019-11-02] MEDS: Umeclidinium Bromide Inhaler 1 PUFF IH (07:36)
[2019-11-02] MEDS: Carvedilol 3.125 MG TABLET PO ×2 (07:36→20:06)
[2019-11-02] MEDS: Amiodarone 200 MG Tablet PO (07:36)
[2019-11-02] MEDS: Montelukast 10 MG Tablet PO (07:37)
[2019-11-02] MEDS: Isosorbide DN 30 MG Tablet PO (07:37)
[2019-11-02] MEDS: Pantoprazole Sodium 40 MG Tablet PO (07:37)
[2019-11-02] MEDS: Calcium (Elemental) 500 MG Tablet PO (07:37)
[2019-11-02] MEDS: oxyCODONE 5 MG Tablet PO ×2 (07:49→21:06)
--- NOTE | 2019-11-02 09:33 | NURSING ---
team meeting and collaborative discussion- during team, pt shares she would like medication to help with her memory.
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
[2019-11-02] MEDS: Ferrous Sulfate 325 MG Tablet PO (11:15)
[2019-11-02] MEDS: Aspirin 81 MG TAB.CHEW PO (11:15)
[2019-11-02] MEDS: Ascorbic Acid 500 MG Tablet PO (11:15)
--- NOTE | 2019-11-02 12:51 | PCM.PN.BLA ---
Progress Note Floresita was seen on TEAM rounds today. No family was present and her son did not answer the phone to participate in rounds. Neither her son or dtr-in-law has tried to contact me for an update during this admission but, the SW has been talking with her son. Alert, oriented X 3, sitting in the recliner in NAD She is pale and has some lightheadedness with standing. She denies CP. Lungs - CTA H - regular, no gallop abd - soft, BS's are not hyperactive, no pain with palpation some ankle edema which is controlled by ANCA hose no rashes, no skin breakdown no calf tenderness Impressions 1. Debility secondary to recent fusion of C1-C2 due to a nonhealing fracture of the odontoid which she is sustained in July from a fall. 2. Dehydration-improving however sodium is low and the fractional excretion of sodium was less than 1% yesterday so IV fluids were ordered. 3. Anemia with a decreasing hemoglobin and heme positive stools in a patient chronically on Xarelto for history of PAF. To her knowledge she has never had endoscopy. 4. Depression-patient has done very well in the inpatient rehab unit and her mentation has improved. She enjoys talking with staff and activities. 5. Alzheimer's dementia with a positive family history in her sister who is secondary to Alzheimer's disease. I discussed the fact that she is anemic and the HGB is decreasing and also that there is blood in her stool and she is chronically on an anticoagulant. I recommended a blood transfusion and she is agreeable. We also discussed on TEAM rounds the diagnosis of Alzheimers and the fact that there are drugs that can potentially slow down the process. I asked her once again with the rest of the TEAM in the room if she would like to try a medication to help slow down the progression of the Alzheimer's and she said yes. I also made her aware that her son and dtr-in-law were not in agreement with starting a medication and she still wished to continue. She is alert and oriented today and I am going to start Aricept 5 mg daily. I think that she would benefit from increased socialization but, unfortunately all the local senior centers are closed down due to COVID. She will be discharged on Wednesday to home with her son. If the HGB continues to drop and the stool is repeatedly positive she may need endoscopy Transfuse 2 units of PRBC's today....she is in agreement with this Inpatient E&M: [id number] Subs Hosp L2
--- NOTE | 2019-11-02 13:18 | NURSING ---
teachback/education on blood/blood products provided. consent obtained.
--- NOTE | 2019-11-02 14:18 | PCA ---
Per nursing communication, pt was to have an appt. with Irina Morales CNP & Lizz Price MD. After calling Dr. Lizz Price's office & making an appointment for the pt., I was informed that these providers were in the same office and the pt. would not have to have an appointment with Irina Morales CNP.
[2019-11-02] MEDS: Rivaroxaban 20 MG Tablet PO (16:26)
[2019-11-02] MEDS: 0.9% Saline Lock 10 ML Syringe IV ×2 (18:33→21:40)
[2019-11-02] MEDS: Senna/Docusate Sodium 1 Tablet 2 TABLET PO (20:06)
[2019-11-02] MEDS: Donepezil HCl 5 MG Tablet PO (20:06)
[2019-11-02] MEDS: Mirtazapine 15 MG Tablet 7.5 MG PO (20:07)
[2019-11-02] MEDS: Atorvastatin Calcium 80 MG Tablet PO (20:07)
[2019-11-03 01:07] VITALS: BP 158/65; PULSE 73; RESP 18; TEMP 36.5; O2SAT 98
[2019-11-03] MEDS: Acetaminophen 325 MG Tablet 650 MG PO (01:08)
[2019-11-03 05:48] LABS: Hematocrit 33.3 % (37-47); Hemoglobin 10.7 g/dL (12.0-15.0); Mean Corp Hgb Conc 32.1 g/dL (32-36); Mean Corpuscular Hgb 29.6 pg (27.0-32.0); Mean Platelet Vol. 9.6 fl (6.2-12.0); Platelet Count 414 K/mm3 (150-450); RBC Distribution Width CV 13.4 % (11.6-14.6); RBC Distribution Width SD 45.3 fl (35.1-43.9); Red Blood Count 3.62 M/mm3 (4.2-5.4); White Blood Count 4.9 K/mm3 (4.4-11.0)
[2019-11-03] MEDS: Levothyroxine 25 MCG TABLET PO (05:59)
[2019-11-03] MEDS: Ipratropium Bromide 0.06% NASAL SPRAY 2 SPRAY NASAL ×2 (06:00→13:35)
[2019-11-03 06:08] LABS: Anion Gap 8 (5-15); BUN 23 mg/dL (7-18); BUN/Creat Ratio 27.6 RATIO (10-20); Calcium,Total 9.2 mg/dL (8.5-10.1); Chloride 98 mmol/L (98-107); Creatinine, Serum 0.83 mg/dL (0.55-1.02); EST Glomerular Filtration Rate 71 mL/min (>60); Est Glom Filt Rate - Afr Amer 86 mL/min (>60); Glucose 84 mg/dL (74-106); Potassium 3.8 mmol/L (3.5-5.1); Sodium Level 135 mmol/L (136-145)
[2019-11-03 07:59] VITALS: BP 165/78; PULSE 78; RESP 17; TEMP 36.7; O2SAT 97
[2019-11-03] MEDS: oxyCODONE 5 MG Tablet PO ×2 (08:38→20:54)
[2019-11-03] MEDS: Umeclidinium Bromide Inhaler 1 PUFF IH (08:39)
[2019-11-03] MEDS: Multivitamins,Ther W-Minerals Tablet 1 TABLET PO (08:40)
[2019-11-03] MEDS: Amiodarone 200 MG Tablet PO (08:40)
[2019-11-03] MEDS: Montelukast 10 MG Tablet PO (08:40)
[2019-11-03] MEDS: Calcium (Elemental) 500 MG Tablet PO (08:40)
[2019-11-03] MEDS: Carvedilol 3.125 MG TABLET PO (08:40)
[2019-11-03] MEDS: Pantoprazole Sodium 40 MG Tablet PO (08:41)
[2019-11-03] MEDS: Isosorbide DN 30 MG Tablet PO (08:41)
--- NOTE | 2019-11-03 08:59 | CASEMGMT ---
Social Work Son returned phone call. Spoke with him on Team information and DC date. Son agreeable to DC date and can transport pt. Explained [facility], transportation and [place] resources. Son appreciative of those resources. No issues noted. Plan: DC home 11/03 [facility] [place]
[2019-11-03] MEDS: Aspirin 81 MG TAB.CHEW PO (11:37)
[2019-11-03] MEDS: Ascorbic Acid 500 MG Tablet PO (11:37)
[2019-11-03] MEDS: Ferrous Sulfate 325 MG Tablet PO (11:37)
--- NOTE | 2019-11-03 14:43 | PCM.PN.BLA ---
Progress Note Afebrile Now that the patient has been adequately rehydrated and received blood products her systolic blood pressure is not adequately controlled and the number is consistently greater than 130. She is maintaining appropriate oxygen saturation on room air. Heart rate is within normal limits. Good oral intake. All lab was personally reviewed. The white blood cell count today is 4.9 and the hemoglobin is 10.7, up from 7.6 on 11/02/2019. Platelet count is within normal limits. Sodium is up to 135 following hydration and the potassium is 3.8. The BUN has come down from 35 to 23 and the creatinine is 0.83, down from 0.95. MM are moist She is alert and oriented X 3, pleasant, NAD, sitting in the recliner Lungs - excellent air exchange and she is CTA throughout H - RRR, no AF since admission to the rehab unit, , no gallop abd - soft, eating well, NT, ND, normal BS's, no guarding with palpation no pitting edema, no calf tenderness no rashes and no skin breakdown CN's II - XII are grossly intact, no focal neurologic deficits Mood is good. Makes good eye contact, good voice modulation, speech is fluid, sleeping well and eating well, interacts with staff and is talkative and engaged......good improvement since admission Impressions 1. debility due to cervical fusion at C1-C2 due to a non-healing fracture of the odontoid that failed conservative therapy 2. depression - much better since admission 3. Alzheimer's dementia - Aricept started at the request of the patient 4. Dehydration - resolved 5. hyponatremia due to prerenal azotemia 6. acute blood loss anemia 7. PAF 8. Chronic anticoagulation with Xarelto 9. HTN 10. Allergic rhinitis and cough due to PNdrip - not improved with Atrovent nasal spray - Will try a nasal steroid Plan DC tomorrow DC Atrovent nasal spray and start Flonase Plan Inpatient E&M: [id number] Subs Hosp L2
[2019-11-03] MEDS: Rivaroxaban 20 MG Tablet PO (17:00)
[2019-11-03] MEDS: 0.9% Saline Lock 10 ML Syringe IV (18:17)
[2019-11-03 19:26] VITALS: BP 147/72; PULSE 73; RESP 16; TEMP 36.6; O2SAT 96
[2019-11-03] MEDS: Mirtazapine 15 MG Tablet 7.5 MG PO (20:55)
[2019-11-03] MEDS: Atorvastatin Calcium 80 MG Tablet PO (20:56)
[2019-11-03] MEDS: Fluticasone 0.05% 1 SPRAY NASAL.SRY NASAL (20:57)
[2019-11-03] MEDS: Donepezil HCl 5 MG Tablet PO (20:58)
[2019-11-03] MEDS: Carvedilol 6.25 MG Tablet PO (20:58)
[2019-11-04] MEDS: oxyCODONE 5 MG Tablet PO (05:56)
[2019-11-04] MEDS: Levothyroxine 25 MCG TABLET PO (05:57)
[2019-11-04 07:22] VITALS: BP 158/76; PULSE 63; RESP 16; TEMP 36.7; O2SAT 95
[2019-11-04] MEDS: Calcium (Elemental) 500 MG Tablet PO (07:54)
[2019-11-04] MEDS: Montelukast 10 MG Tablet PO (07:54)
[2019-11-04] MEDS: Isosorbide DN 30 MG Tablet PO (07:54)
[2019-11-04] MEDS: Amiodarone 200 MG Tablet PO (07:55)
[2019-11-04] MEDS: Multivitamins,Ther W-Minerals Tablet 1 TABLET PO (07:55)
[2019-11-04] MEDS: Pantoprazole Sodium 40 MG Tablet PO (07:56)
[2019-11-04] MEDS: Carvedilol 6.25 MG Tablet PO (07:56)
[2019-11-04] MEDS: Umeclidinium Bromide Inhaler 1 PUFF IH (07:58)
[2019-11-04] MEDS: Fluticasone 0.05% 1 SPRAY NASAL.SRY NASAL (07:59)
--- NOTE | 2019-11-04 10:22 | PCM.DC ---
- Discharge Diagnoses Current Active Problems: Current Active and Chronic Problems (Last Reviewed 04/20/19 @ 18:[address] Irina Carrillo, ) Cervical stenosis of spinal canal (Chronic) due to a fall in July of 2019 resulting in a fracture of the odontoid. she was treated conservatively with a [place] [employer] [place] J cervical collar. Malnutrition of mild degree (Chronic) She has had a 17 lb weight loss from 04/20/19 to 10/24/19 KATINA (obstructive sleep apnea) (Chronic) History of bone graft (Acute) from the R iliac crest on for cervical fusion of C1-3 S/P cervical spinal fusion (Acute) [facility] 10/17/19 for cervical canal stenosis caused by fx of the Oontoid due to a fall in July of 2019 (treated conservatively with C collar initially) Osteoporosis (Chronic) on BMD in December of 2019 - she is on Prolia Depression (Chronic) Vitamin D deficiency (Chronic) Leukopenia (Acute) Acute on chronic anemia (Acute) likely due to blood loss from recent surgical fusion Metabolic alkalosis (Acute) due to dehydration/contraction alkalosis History of migraine headaches (Chronic) Fibromyalgia (Chronic) Osteoarthritis (Chronic) Cholelithiasis (Chronic) Ovarian cyst, bilateral (Chronic) You will use the following diet at home:: Cardiac - low fat and low salt Your food should be the consistency of: Regular Your liquids should be the consistency of: Regular/Thin Discharge Activity: - - Do the exercises given to you by the therapists twice a day. You must not take the neck collar off until the surgeon tells you it would be OK to remove. The bone must heal and fuse before you can take the collar off. Xrays will be done periodically to see if the bone is healed and the first 2 vertebrae in your neck are fused together. Weight Bearing Status: Full weight bearing Call your doctor if you observe: Fever of 101 or Higher, Numbness or Tingling, Inability to urinate, Inability to have a bowel movement, Fainting spells, Chest pain, Increased palpitations (irregular heartbeat), - - Call your family doctor if any unusual bleeding such as bleeding from the gums, blood from the anus, blood in the urine, nose bleeds, large bruises or bleeding from the vagina if female. Instructions: For Caregivers: Safety Tips for Dementia Patients, For Caregivers: Daily Care for Dementia Patients, Alzheimer's Disease Additional Instructions: 1. I have started you on a medication that may help to slow the progression of the memory loss due to Alzheimer's disease. I started a low dose and Dr. Gutierrez will likely increase the dose gradually IF you do not have any adverse side effects. Socialization is very important in dementia patients. It is mportant to maintain your language skills and your memory because conversation makes you think. You enjoy being around people and you like to do crafts and activities. Unfortunately because of COVID you are somewhat isolated. When things start to open up there are senior centers in [place] where you could go and interact with people your age and do projects/crafts/games. I think you would benefit greatly from this. You are a very social person and you have done remarkably well in the rehab unit. 2. Your BP has been a little high in the rehab unit and we went up on the dose of the Carvedilol. 3. You were on Cymbalta when you came to us in the rehab unit. You were not sleeping well and you were not eating or drinking enough. I discontinued the Cymbalta (also called Duloxetine) and started an antidepressant you take at night called Remeron. It helps with depression and it also helps you sleep and increases appetite. You are on a very low dose but, you now are sleeping well, your appetite has improved, your mentaion has improved and your language skills and memory have improved. I wrote you a prescription for the Remeron. 4. You lost blood with the surgery and you have some blood in your stool. Your blood count dropped and we gave you 2 units of blood. When people are on Anticoagulants for atrial fibrillation it is not uncommon to lose some blood. You are on an iron supplement. Take the iron supplement with a meal and with a Vitamin C. The Vitamin C (ascorbic acid) helps the iron to be better absorbed from your GI tract. Iron needs acid to be absorbed into your body and when you take a medication to suppress acid production in the stomach the iron is not absorbed......the ascorbic acid helps. 5. It was a pleasure meeting you Ninetta and wonderful to see you blossom in rehab. Your memory improved, speech improved and your mood improved greatly. The therapists all enjoyed working with you and we have all enjoyed talking with you. I hope things open up in the future and you can start going to a senior center.........I think you would benefit greatly having people your age to talk with and also the activities. Take care and be well. Pending Tests on Discharge: none Allergies/Adverse Reactions: Allergies No Known Allergies Allergy (Verified 10/11/19 10:43) Medications to take at Discharge Aspirin [Aspirin, Baby] 81 mg PO DAILY@1200 06/20/15 Cholecalciferol (VIT D3) [Vitamin D3] 2,000 unit PO DAILY@1200 06/20/15 Amiodarone HCl 200 mg PO DAILY 04/20/19 Dexlansoprazole [Dexilant] 60 mg PO DAILY 04/20/19 Levalbuterol Tartrate [Levalbuterol Tartrate Hfa] 2 puff IH Q6H PRN PRN 04/20/19 Mometasone Furoate [Asmanex Hfa] 2 puff PO BID 04/20/19 Multivitamin with Minerals [Multiple Vitamin] 1 tab PO DAILY 04/20/19 Acetaminophen [Tylenol Extra Strength] 1,000 mg PO Q8H #1 tab 11/04/19 Ascorbic Acid [Vitamin C] 500 mg PO DAILY #30 cap 11/04/19 Aspirin [[place] Aspirin EC] 81 mg PO DAILY #1 tablet. 11/04/19 Calcium Carbonate [Calcium] 500 mg PO DAILY #30 tab 11/04/19 Carvedilol [Coreg] 6.25 mg PO BID #60 tab 11/04/19 Ferrous Sulfate 325 mg PO DAILY #30 tab 11/04/19 Fluticasone 0.05% [Flonase Nasal [place]] 1 spray NASAL BID #1 bottle 11/04/19 Isosorbide DN [Isordil] 30 mg PO DAILY #30 tab 11/04/19 Levothyroxine [Synthroid] 25 mcg PO DAILY #30 tab 11/04/19 Memantine Hydrochloride [Namenda] 5 mg PO DAILY #30 tab 11/04/19 Mirtazapine [Remeron] 7.5 mg PO QHS #15 tab 11/04/19 Montelukast [Singulair] 10 mg PO DAILY #30 tab 11/04/19 Oxycodone [Oxyir] 5 mg PO Q6H PRN PRN 7 Days #20 tab 11/04/19 Rivaroxaban [Xarelto] 20 mg PO DAILY@1700 tablet 11/04/19 Umeclidinium [place] Inhaler [Incruse Ellipta Inhaler] 1 puff IH DAILY #1 inhaler 11/04/19 The following prescriptions were given: Calcium Carbonate [Calcium] 500 mg PO DAILY #30 tab Prescription Printed Carvedilol [Coreg] 6.25 mg PO BID #60 tab Transmission Status: Pending to [id number] Ferrous Sulfate 325 mg PO DAILY #30 tab Prescription Printed Fluticasone 0.05% [Flonase Nasal [place]] 1 spray NASAL BID #1 bottle Transmission Status: Pending to [id number] Umeclidinium [place] Inhaler [Incruse Ellipta Inhaler] 1 puff IH DAILY #1 inhaler Prescription Printed Isosorbide DN [Isordil] 30 mg PO DAILY #30 tab Prescription Printed Memantine Hydrochloride [Namenda] 5 mg PO DAILY #30 tab Transmission Status: Pending to [facility] Oxycodone [Oxyir] 5 mg PO Q6H PRN PRN 7 Days #20 tab PRN Reason: pain 4 - 10 Prescription Printed Mirtazapine [Remeron] 7.5 mg PO QHS #15 tab Transmission Status: Pending to [facility] Montelukast [Singulair] 10 mg PO DAILY #30 tab Prescription Printed Aspirin [[place] Aspirin EC] 81 mg PO DAILY #1 tablet. Prescription Printed Levothyroxine [Synthroid] 25 mcg PO DAILY #30 tab Prescription Printed Acetaminophen [Tylenol Extra Strength] 1,000 mg PO Q8H #1 tab Prescription Printed Ascorbic Acid [Vitamin C] 500 mg PO DAILY #30 cap Prescription Printed Primary Care Physician: Zuri Gutierrez DO [Primary Care Provider] - Test Results: Test results from this visit will be discussed in further detail at your follow-up appointment, if applicable. Please Follow Up With: Dr. Zuri Gutierrez - PCP When: Wednesday Please Follow Up With: Dr. Jimena Price When: Wednesday Proposed Discharge Date: 11/04/19
[2019-11-04 10:47] VITALS: BP 158/76; PULSE 63; RESP 16; TEMP 36.7; O2SAT 95
--- NOTE | 2019-11-04 10:48 | PCM.DC.SUM ---
Discharge Date and Diagnosis Date of Admission: 10/23/19 Date of Discharge: 11/04/19 - Primary Discharge Diagnosis Acute Problems: Active Problems (Last Reviewed 04/20/19 @ 18:[address] Irina Carrillo DO) Debility due to cervical fusion for non-healing fracture of the odontoid History of bone graft (Acute) from the R iliac crest on for cervical fusion of C1-3 S/P cervical spinal fusion (Acute) [facility] 10/17/19 for non-healing fx of the Odontoid due to a fall in July of 2019 (treated conservatively with C collar initially) Leukopenia (Acute) Acute blood loss anemia on chronic iron deficiency anemia (Acute) likely due to blood loss from recent surgical fusion Metabolic alkalosis (Acute) due to dehydration/contraction alkalosis Hyponatremia due to pre-renal azotemia Pre-renal azotemia hemoccult + stool Transfusion of 2 units of PRBC's for symptomatic anemia with HGB less than8 - Secondary Discharge Diagnosis Chronic Problems: Chronic Problems (Last Reviewed 04/20/19 @ 18:[address] Irina Carrillo DO) Non-healing odontoid fracture (Chronic) due to a fall in July of 2019 resulting in a fracture of the odontoid. She was treated conservatively with a Carlin J cervical collar. Malnutrition of mild degree (Chronic) She has had a 17 lb weight loss from 04/20/19 to 10/24/19 KATINA (obstructive sleep apnea) (Chronic) - has not been able to wear CPAP due to presence of the cervical collar Osteoporosis (Chronic) on BMD in December of 2019 - she is on Prolia Depression (Chronic) Vitamin D deficiency (Chronic) History of migraine headaches (Chronic) Fibromyalgia (Chronic) Osteoarthritis (Chronic) Cholelithiasis (Chronic) Ovarian cyst, bilateral (Chronic) Alzheimer's Dementia (Chronic) -there is a positive FH and her sister of complications due to Alzheimer's Essential hypertension (Chronic) chronic iron deficiency Anemia (Chronic) Carotid stenosis (Chronic) less than 50% BL in Dec GERD (gastroesophageal reflux disease) (Chronic) - on a PPI Lung nodule (Chronic) - followed by Dr. 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) Mild to moderate - Cardiac Cath @ [facility] 05/03/09 Moderate persistent asthma (Chronic) COPD (chronic obstructive pulmonary disease) (Chronic) Paroxysmal atrial fibrillation (Chronic) Hyperlipidemia (Chronic) Chronic anticoagulation with Xarelto Hospital Course and Treatment Imaging Results: Laboratory Last Values WBC 4.9 K/mm3 (4.4-11.0) 11/03/19 05:30 RBC 3.62 M/mm3 (4.2-5.4) L 11/03/19 05:30 Hgb 10.7 g/dL (12.0-15.0) L 11/03/19 05:30 Hct 33.3 % (37-47) L 11/03/19 05:30 MCV 92.0 fL (81-99) 11/03/19 05:30 MCH 29.6 pg (27.0-32.0) 11/03/19 05:30 MCHC 32.1 g/dL (32-36) 11/03/19 05:30 RDW Std Deviation 45.3 fl (35.1-43.9) H 11/03/19 05:30 RDW Coeff of Reina 13.4 % (11.6-14.6) 11/03/19 05:30 Plt Count 414 K/mm3 (150-450) 11/03/19 05:30 MPV 9.6 fl (6.2-12.0) 11/03/19 05:30 Immature Gran % (Auto) 0.300 % (0.0-0.9) 10/24/19 05:25 Neut % (Auto) 45.8 % (47-70) L 10/24/19 05:25 Lymph % (Auto) 40.4 % (19-41) 10/24/19 05:25 Finney % (Auto) 10.3 % (0-10) H 10/24/19 05:25 Eos % (Auto) 2.4 % (0-5) 10/24/19 05:25 Baso % (Auto) 0.8 % (0-1) 10/24/19 05:25 Absolute Neuts (auto) 1.7 X10^3/uL (2.0-7.7) L 10/24/19 05:25 Absolute Lymphs (auto) 1.53 X10^3/uL (0.83-4.51) 10/24/19 05:25 Nucleated RBC % 0 % (0-5) 10/24/19 05:25 Specimen Type SHRUTI 10/25/19 06:20 VBG pH 7.45 (7.32-7.42) H 10/25/19 06:20 VBG pO2 187 mmHg (25-40) H 10/25/19 06:20 VBG HCO3 28 mmol/L (22-26) H 10/25/19 06:20 VBG O2 Sat (Calc) 100 % (50-70) H 10/25/19 06:20 VBG O2 Content 30 mmol/L (23-33) 10/25/19 06:20 VBG Base Excess 4 mmol/L (-1.0-3.5) H 10/25/19 06:20 POC Mix VBG pCO2 Pt Tmp 40.3 mmHg (41-51) L 10/25/19 06:20 Sodium 135 mmol/L (136-145) L 11/03/19 05:30 Potassium 3.8 mmol/L (3.5-5.1) 11/03/19 05:30 Chloride 98 mmol/L (98-107) 11/03/19 05:30 Carbon Dioxide 29.0 mmol/L (21.0-32.0) 11/03/19 05:30 Anion Gap 8 (5-15) 11/03/19 05:30 BUN 23 mg/dL (7-18) H 11/03/19 05:30 Creatinine 0.83 mg/dL (0.55-1.02) 11/03/19 05:30 Estim Creat Clear Calc 55.20 ml/min 11/03/19 05:30 Est GFR (MDRD) Af Amer 86 mL/min (>60) 11/03/19 05:30 Est GFR (MDRD) Non-Af 71 mL/min (>60) 11/03/19 05:30 BUN/Creatinine Ratio 27.6 RATIO (10-20) H 11/03/19 05:30 Glucose 84 mg/dL (74-106) 11/03/19 05:30 Calcium 9.2 mg/dL (8.5-10.1) 11/03/19 05:30 Phosphorus 4.1 mg/dL (2.5-4.9) 10/31/19 05:20 Magnesium 1.6 mg/dL (1.6-2.6) 10/31/19 05:20 Total Bilirubin 0.40 mg/dL (0.20-1.00) 10/24/19 05:25 AST 18 U/L (15-37) 10/24/19 05:25 ALT 15 U/L (13-56) 10/24/19 05:25 Alkaline Phosphatase 50 U/L (45-117) 10/24/19 05:25 Total Protein 5.3 g/dL (6.4-8.2) L 10/24/19 05:25 Albumin 2.3 g/dL (3.2-5.0) L 10/24/19 05:25 Globulin 3.0 g/dL (2.2-4.2) 10/24/19 05:25 Albumin/Globulin Ratio 0.8 RATIO (0.9-2.4) L 10/24/19 05:25 TSH 2.30 uIU/mL (0.358-3.74) 10/24/19 15:20 Free T4 1.53 ng/dL (0.76-1.46) H 10/24/19 15:20 Ur Random Sodium 36 mmol/L (Not Establ.) 11/01/19 13:15 Urine Creatinine 77.90 mg/dL (NO RANGE EST.) 11/01/19 13:15 Rheumatoid Factor < 10.0 IU/mL (<15) 10/24/19 15:20 LITO Screen Negative (Negative) 10/24/19 15:20 BEN-1 Antibody Not Reportable 10/24/19 15:20 SS-A/Ro IgG Antibody Not Reportable 10/24/19 15:20 SS-B/La IgG Antibody Not Reportable 10/24/19 15:20 Sm (Young) Antibody Not Reportable 10/24/19 15:20 [employer] Antibody Not Reportable 10/24/19 15:20 Scl-70 Scleroderma Ab Not Reportable 10/24/19 15:20 Double Strand DNA Ab Not Reportable 10/24/19 15:20 Centromere B Antibody Not Reportable 10/24/19 15:20 Blood Type A POSITIVE 11/02/19 14:55 Antibody Screen NEGATIVE 11/02/19 14:55 Crossmatch See Detail 11/02/19 14:55 Microbiology 10/27/19 20:00 Stool Stool Occult Blood (NU) - Final Occult Blood Positive none Operations: None Procedures: EKG, - - transfusion of 2 units of PRBC's Summary of Care Provided: Floresita Pizarro is a 74 year old F with a past medical history of hypertension, iron deficiency anemia, carotid stenosis with less than 50% stenosis bilaterally in December 2018, GERD, lung nodule, coronary artery disease, moderate persistent asthma, COPD, paroxysmal atrial fibrillation, chronic anticoagulation with Xarelto, hyperlipidemia, obstructive sleep apnea, osteoporosis, depression, vitamin D deficiency and probable Alzheimer's dementia who had a fall on Jul 22 2019 resulting in a fracture of the odontoid. She was evaluated by neurosurgery who did not feel that surgical intervention was indicated and she could be treated conservatively with a Carlin J collar. 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 Imaging also showed evidence of autofusion from C3 distally and Dr. Price recommended she have C1 -C3 fusion. On 10/17/2019 Floresita underwent an instrumented fusion of C1-C3 with R iliac crest bone graft. The post operative course was unremarkable and without complication. She was transferred to the inpt acute rehab unit at [facility] on 10/23/2019 for greater than 3 hours of therapy daily to restore her to her prior level of function/independence. She lives with her son Elier and his Caren in a private one-story home with 2 steps to enter. She moved in with Elier approximately 1 year ago and when she started to talk about this she got very tearful. She wants to live by herself and is upset about loss of independence. She has not been eating well and she has lost 18 lbs since Feb. Floresita was initially oriented to person and place only. Her affect was flat and there was very little modulation to her speech. Her appetite was only fair. She was having trouble sleeping at night. She was started on Remeron 7.5 mg and the sleeping and appetite improved. She was very cooperative with therapy and enjoyed the daily interactions with the staff. She voiced that she liked having things to do. She became more talkative and with the assistance of ST her memory improved. I think the socialization also contributed to her significant improvement. Elier related that his mother's sister of complications due to Alzheimer's. I asked Floresita on more than one occasion if there was a drug that could potentially slow down the memory loss would you take it? She answered yes. Staff also witnessed her answering this question on TEAM rounds on 11/02/19. At the time she was alert, oriented X 3, making good eye contact and participating in rounds by asking questions. We elected not to start Aricept because she is on Amiodarone which prolongs the QT and Aricept also prolongs QT. She was started on Namenda and a RX was given at [facility]. She was also given a RX for Remeron. Unfortunately due to COVID-19 the senior centers are currently closed. Floresita thrives with stimulation and social interaction and she would likely benefit greatly from attendance at a senior center where she can interact with others her age and participate in scheduled activities. Prior to DC she was walking independently on various surfaces without an AD with a continuous step through pattern with no LOB. She is working toward a goal of being able to verbalize and demonstrate understanding of the cervical spinal precautions. She is able to demonstrate shower transfers/showering tasks at a supervision level and able to demonstrate toilet transfer/toileting tasks that moderately independent level. She is still requiring verbal cues to improve safety awareness and acknowledge limitations. Floresita was discharged on 11/04/2019 and will have outpatient therapy at [facility] for OP PT/OT/ST. Billgill told us that she used to go [facility] in the past for exercise and she would like to go again. Prior to DC the SW explained to [facility] referral, Transportation and [facility]. She has appointments to follow-up with Dr. Zuri Gutierrez on 11/06/[address] Jimena Price (neurosurgery) on Wednesday. MM are moist She is alert and oriented X 3, pleasant, NAD, sitting in the recliner Lungs - excellent air exchange and she is CTA throughout H - RRR, no AF since admission to the rehab unit, , no gallop abd - soft, eating well, NT, ND, normal BS's, no guarding with palpation no pitting edema, no calf tenderness no rashes and no skin breakdown CN's II - XII are grossly intact, no focal neurologic deficits Mood is good. Makes good eye contact, good voice modulation, speech is fluid, sleeping well and eating well, interacts with staff and is talkative and engaged......good improvement since admission This note was generated with [employer] dictation software. It may contain incorrect words, spelling, and punctuation that were not noted in checking the note before signing. - Physical Exam Vitals/I&O's: Vital Signs Temp Pulse Resp BP Pulse Ox 98.1 F 63 16 158/76 H 95 11/04/19 07:22 11/04/19 07:22 11/04/19 07:22 11/04/19 07:22 11/04/19 07:22 Oxygen Delivery Method Room Air Weight: 129 lb 10.109 oz Body Mass Index (BMI) 19.9 Orthostatic Vital Signs Start: 10/24/19 14:35 Freq: Status: Active Protocol: Activity Type Activity Date Activity User E-Sign Co-Sign Detail Recorded Client Recorded Date Recorded By Document 10/25/19 05:30 MEP [id number] 10/25/19 05:35 MEP 10/25/19 05:30 Orthostatic Vitals Standing -Blood Pressure (90/60-120/80 mm Hg) 146/76 H -Extremity Use Left Arm -Pulse Rate (60-100 beats/min) 71 Sitting -Blood Pressure (90/60-120/80 mm Hg) 151/78 H -Extremity Use Left Arm -Pulse Rate (60-100 beats/min) 71 Lying -Blood Pressure (90/60-120/80 mm Hg) 141/57 H -Extremity Use Left Arm -Pulse Rate (60-100 beats/min) 69 Intake and Output for Last 24 Hours 11/02/19 11/03/19 11/04/19 23:59 23:59 23:59 Intake Total 3547.67 / 3547.67 1750 / 1750 340 / 340 Output Total 1400 / 1400 Balance 2147.67 / 2147.67 1750 / 1750 340 / 340 Current Medications Acetaminophen (Tylenol) 650 mg PO Q4H PRN PRN PRN Reason: Pain Score 1-3/10 Last Admin: 11/03/19 01:08 Dose: 650 mg Documented by: Albuterol Sulfate (Proventil Hfa) 2 puff IH Q4H PRN PRN PRN Reason: SHORTNESS OF BREATH Amiodarone HCl (Cordarone) 200 mg PO DAILY [facility] Last Admin: 11/04/19 07:55 Dose: 200 mg Documented by: Ascorbic Acid (Vitamin C) 500 mg PO DAILY@1200 [facility] Last Admin: 11/03/19 11:37 Dose: 500 mg Documented by: Aspirin (Aspirin, Baby) 81 mg PO DAILY@1200 [facility] Last Admin: 11/03/19 11:37 Dose: 81 mg Documented by: Atorvastatin Calcium (Lipitor) 80 mg PO QHS [facility] Last Admin: 11/03/19 20:56 Dose: 80 mg Documented by: Bisacodyl (Dulcolax) 10 mg RECTAL .PRN X 1 PRN PRN Reason: Constipation Calcium Carbonate (Os-Tk 500) 500 mg PO DAILY [facility] Last Admin: 11/04/19 07:54 Dose: 500 mg Documented by: Carvedilol (Coreg) 6.25 mg PO BID [facility] Last Admin: 11/04/19 07:56 Dose: 6.25 mg Documented by: Cholecalciferol (Vitamin D (25mcg)) 2,000 unit PO DAILY@1200 [facility] Last Admin: 11/03/19 11:37 Dose: 2,000 unit Documented by: Ferrous Sulfate (Ferrous Sulfate) 325 mg PO DAILY@1200 [facility] Last Admin: 11/03/19 11:37 Dose: 325 mg Documented by: Fluticasone Propionate (Flovent Diskus 250 Mcg) 1 puff INHALATION BID [facility] Last Admin: 11/04/19 07:58 Dose: 1 puff Documented by: Fluticasone Propionate (Flonase Nasal [place]) 1 spray NASAL BID [facility] Last Admin: 11/04/19 07:59 Dose: 1 spray Documented by: Sodium Chloride () 500 mls @ 15 mls/hr IV PRN PRN PRN Reason: Blood Transfusion Last Infusion: 11/02/19 18:38 Dose: 0 mls/hr Documented by: Isosorbide Dinitrate (Isordil) 30 mg PO DAILY [facility] Last Admin: 11/04/19 07:54 Dose: 30 mg Documented by: Levothyroxine Sodium (Synthroid) 25 mcg PO DAILY@0600 [facility] Last Admin: 11/04/19 05:57 Dose: 25 mcg Documented by: Magnesium Hydroxide (Milk Of Magnesia) 30 ml PO .PRN X 1 PRN PRN Reason: Constipation Mirtazapine (Remeron) 7.5 mg PO QHS [facility] Last Admin: 11/03/19 20:55 Dose: 7.5 mg Documented by: Montelukast Sodium (Singulair) 10 mg PO DAILY [facility] Last Admin: 11/04/19 07:54 Dose: 10 mg Documented by: Multivitamins/Minerals (Multivitamin With Minerals (Bkc)) 1 tablet PO DAILY@0800 [facility] Last Admin: 11/04/19 07:55 Dose: 1 tablet Documented by: Nutritional Formula (Lactose Free) (Ensure Enlive) 120 ml PO 4X/DAY [facility] Last Admin: 11/04/19 08:07 Dose: 120 ml Documented by: Oxycodone HCl (Oxyir) 5 mg PO Q4H PRN PRN PRN Reason: Pain Score 4-10/10 Last Admin: 11/04/19 05:56 Dose: 5 mg Documented by: Pantoprazole Sodium (Protonix) 40 mg PO DAILY [facility] Last Admin: 11/04/19 07:56 Dose: 40 mg Documented by: Rivaroxaban (Xarelto) 20 mg PO DAILY@1700 [facility] Last Admin: 11/03/19 17:00 Dose: 20 mg Documented by: Senna/Docusate Sodium (Senokot-S, Yeny-Colace) 2 tablet PO BID [facility] Last Admin: 11/04/19 07:58 Dose: Not Given Documented by: Sodium Chloride () 10 - 40 ml IV UD PRN PRN Reason: SALINE FLUSH Last Admin: 11/03/19 18:17 Dose: 10 ml Documented by: Umeclidinium [place] (Incruse Ellipta Inhaler) 1 puff IH DAILY [facility] Last Admin: 11/04/19 07:58 Dose: 1 puff Documented by: Discharge Activity: - - Do the exercises given to you by the therapists twice a day. You must not take the neck collar off until the surgeon tells you it would be OK to remove. The bone must heal and fuse before you can take the collar off. Xrays will be done periodically to see if the bone is healed and the first 2 vertebrae in your neck are fused together. Weight Bearing Status: Full weight bearing Call your doctor if you observe: Fever of 101 or Higher, Numbness or Tingling, Inability to urinate, Inability to have a bowel movement, Fainting spells, Chest pain, Increased palpitations (irregular heartbeat), - - Call your family doctor if any unusual bleeding such as bleeding from the gums, blood from the anus, blood in the urine, nose bleeds, large bruises or bleeding from the vagina if female. Home Medications: Medications to take at Discharge Aspirin [Aspirin, Baby] 81 mg PO DAILY@1200 06/20/15 Cholecalciferol (VIT D3) [Vitamin D3] 2,000 unit PO DAILY@1200 06/20/15 Amiodarone HCl 200 mg PO DAILY 04/20/19 Dexlansoprazole [Dexilant] 60 mg PO DAILY 04/20/19 Levalbuterol Tartrate [Levalbuterol Tartrate Hfa] 2 puff IH Q6H PRN PRN 04/20/19 Mometasone Furoate [Asmanex Hfa] 2 puff PO BID 04/20/19 Multivitamin with Minerals [Multiple Vitamin] 1 tab PO DAILY 04/20/19 Acetaminophen [Tylenol Extra Strength] 1,000 mg PO Q8H #1 tab 11/04/19 Ascorbic Acid [Vitamin C] 500 mg PO DAILY #30 cap 11/04/19 Aspirin [Dickens Aspirin EC] 81 mg PO DAILY #1 tablet. 11/04/19 Calcium Carbonate [Calcium] 500 mg PO DAILY #30 tab 11/04/19 Carvedilol [Coreg] 6.25 mg PO BID #60 tab 11/04/19 Ferrous Sulfate 325 mg PO DAILY #30 tab 11/04/19 Fluticasone 0.05% [Flonase Nasal [place]] 1 spray NASAL BID #1 bottle 11/04/19 Isosorbide DN [Isordil] 30 mg PO DAILY #30 tab 11/04/19 Levothyroxine [Synthroid] 25 mcg PO DAILY #30 tab 11/04/19 Memantine Hydrochloride [Namenda] 5 mg PO DAILY #30 tab 11/04/19 Mirtazapine [Remeron] 7.5 mg PO QHS #15 tab 11/04/19 Montelukast [Singulair] 10 mg PO DAILY #30 tab 11/04/19 Oxycodone [Oxyir] 5 mg PO Q6H PRN PRN 7 Days #20 tab 11/04/19 Rivaroxaban [Xarelto] 20 mg PO DAILY@1700 tab 11/04/19 Umeclidinium [place] Inhaler [Incruse Ellipta Inhaler] 1 puff IH DAILY #1 inhaler 11/04/19 Following Prescriptions Were Given to Patient: Calcium Carbonate [Calcium] 500 mg PO DAILY #30 tab Prescription Printed Carvedilol [Coreg] 6.25 mg PO BID #60 tab Transmission Status: Received by [facility] Ferrous Sulfate 325 mg PO DAILY #30 tab Prescription Printed Fluticasone 0.05% [Flonase Nasal [place]] 1 spray NASAL BID #1 bottle Transmission Status: Received by [facility] Umeclidinium [place] Inhaler [Incruse Ellipta Inhaler] 1 puff IH DAILY #1 inhaler Prescription Printed Isosorbide DN [Isordil] 30 mg PO DAILY #30 tab Prescription Printed Memantine Hydrochloride [Namenda] 5 mg PO DAILY #30 tab Transmission Status: Received by [facility] Oxycodone [Oxyir] 5 mg PO Q6H PRN PRN 7 Days #20 tab PRN Reason: pain 4 - 10 Prescription Printed Mirtazapine [Remeron] 7.5 mg PO QHS #15 tab Transmission Status: Received by [facility] Montelukast [Singulair] 10 mg PO DAILY #30 tab Prescription Printed Aspirin [Dickens Aspirin EC] 81 mg PO DAILY #1 tablet. Prescription Printed Levothyroxine [Synthroid] 25 mcg PO DAILY #30 tab Prescription Printed Acetaminophen [Tylenol Extra Strength] 1,000 mg PO Q8H #1 tab Prescription Printed Ascorbic Acid [Vitamin C] 500 mg PO DAILY #30 cap Prescription Printed Primary Care Physician: Zuri Gutierrez DO [Primary Care Provider] - Please Follow Up With: Dr. Zuri Gutierrez - PCP When: Wednesday Please Follow Up With: Dr. Jimena Price When: Wednesday Patient Instructions: For Caregivers: Safety Tips for Dementia Patients, For Caregivers: Daily Care for Dementia Patients, Alzheimer's Disease Disposition: Home - with OP PT/OT/ST at [facility] Minutes spent on discharge:: 45 Patient Condition:: Good Medical Necessity - Tobacco Use Smoking Status: Former smoker - She smoked for approximately 1 year when she was in her 20s. Tobacco Use: Non-smoker Meaningful Use Info Meaningful Use Diagnoses (Choose all that apply): None applicable Inpatient E&M: [id number] [facility]
[2019-11-04] MEDS: Aspirin 81 MG TAB.CHEW PO (13:15)
[2019-11-04] MEDS: Ascorbic Acid 500 MG Tablet PO (13:15)
[2019-11-04] MEDS: Ferrous Sulfate 325 MG Tablet PO (13:16)
--- NOTE | 2019-11-04 13:20 | NURSING ---
Son and patient aware of discharge instructions and verbalized understanding.
== END 2019-11-04 13:20 | disposition home health service (06) | DRG 560 ==
PROVIDERS: Admitting Provider Internal Medicine; PCP Internal Medicine; Visit Provider Internal Medicine
DX: Z47.89 Encounter for other orthopedic aftercare (principal); E44.1 Mild protein-calorie malnutrition; Z68.1 Body mass index [BMI] 19.9 or less, adult; E87.3 Alkalosis; E87.1 Hypo-osmolality and hyponatremia; D62 Acute posthemorrhagic anemia; Z98.1 Arthrodesis status; G47.33 Obstructive sleep apnea (adult) (pediatric); G30.9 Alzheimer's disease, unspecified; F02.80 Dementia in other diseases classified elsewhere, unspecified severity, without behavioral disturbance, psychotic disturbance, mood disturbance, and anxiety; M19.90 Unspecified osteoarthritis, unspecified site; K21.9 Gastro-esophageal reflux disease without esophagitis; I25.10 Atherosclerotic heart disease of native coronary artery without angina pectoris; E55.9 Vitamin D deficiency, unspecified; J44.9 Chronic obstructive pulmonary disease, unspecified; M79.7 Fibromyalgia; J45.40 Moderate persistent asthma, uncomplicated; E78.5 Hyperlipidemia, unspecified; I12.9 Hypertensive chronic kidney disease with stage 1 through stage 4 chronic kidney disease, or unspecified chronic kidney disease; N18.9 Chronic kidney disease, unspecified; I48.0 Paroxysmal atrial fibrillation; Z87.891 Personal history of nicotine dependence; F32.9 Major depressive disorder, single episode, unspecified
CPT/HCPCS: 36415; 80048; 80053; 82274; 82570; 82803; 83735; 84100; 84300; 84439; 84443; 85014; 85018; 85025; 85027; 86038; 86225; 86235; 86431; 86850; 86900; 86901; 86920; 86922; 92507; 92523; 92526; 97110; 97116; 97129; 97130; 97162; 97166; 97530; 97535; 97802; 99251; J7030; J7040; P9016; A4216; G0463

== ENCOUNTER → 2019-11-21 13:00 | Outpatient (CLI) | payer MEDICARE, SELFPAY ==
[2019-10-23 19:36] VITALS: BMI 19.9
== END ==
PROVIDERS: PCP Internal Medicine; Referring Provider Nurse Practitioner Acute Care; Visit Provider Nurse Practitioner Acute Care
DX: G47.33 Obstructive sleep apnea (adult) (pediatric) (principal)
CPT/HCPCS: 98960; G0463

== ENCOUNTER → 2019-12-28 12:37 | Outpatient (CLI) | payer MEDICARE, SELFPAY ==
[2019-10-23 19:36] VITALS: BMI 19.9
--- NOTE | 2019-12-28 13:38 | US_ITS ---
HISTORY: ovarian cysts seen on ct ADDITIONAL HISTORY: None provided. COMPARISON: CT 08/30/2019 and 08/04/2019 TECHNIQUE: Transabdominal sonographic images of the pelvis were acquired utilizing grayscale and color Doppler imaging. FINDINGS: UTERUS: Small in size measuring 4.4 x 2.6 x 4.2 cm consistent with postmenopausal state. Small calcifications noted. ENDOMETRIUM: Not distinctly visualized. OVARIES: Right ovary measures 3.0 x 1.8 x 2.4 cm and contains a 1.7 cm appearing cyst with thin septation and no nodularity. Left ovary measures 4.2 x 2.8 x 3.0 cm and contains 2 adjacent cysts, larger measuring 2.1 x 2.1 x 2.5 cm and smaller measuring 1.5 x 1.8 x 1.7 cm. No soft tissue nodularity is seen. No flow is seen within the lesions on color Doppler imaging. ADNEXA: No mass. FREE FLUID: None detected. BLADDER: Unremarkable. US/Pelvic (Non ) IMPRESSION: Small bilateral ovarian cysts. These are grossly similar in size compared to CT dated 08/04/2019. Gynecologic follow-up suggested. at 0545 Reported and signed by: Christy Santiago MD Electronically Signed: Christy Santiago MD at 5:45 EDT Tel , Service support ,
--- NOTE | 2019-12-30 09:13 | PFT ---
INTRODUCTION: The patient is a 74-year-old female that presents for pulmonary function studies secondary to a diagnosis of KATINA. Respiratory therapy reports good patient effort. Bronchodilators were used during testing. INTERPRETATION: Forced expiration spirometry demonstrates the presence of a moderate large airways obstructive ventilatory defect. There was no significant response to aerosolized bronchodilators. Spirograms are of good quality and plateau normally. Body plethysmography was performed and reveals lung volumes to be within normal limits. Diffusing capacity by single breath CO is reduced to 67% of predicted. When compared to previous pulmonary function studies from June 2018, there has been a 20% reduction in DLCO. IMPRESSION: Irreversible moderate large airways obstructive ventilatory defect with preserved lung volumes and mild reduction in diffusing capacity. There has been a 20% reduction in DLCO since 2019, as noted above.
== END ==
PROVIDERS: PCP Internal Medicine; Referring Provider Internal Medicine; Visit Provider Nurse Practitioner Acute Care
DX: J44.9 Chronic obstructive pulmonary disease, unspecified (principal); I65.23 Occlusion and stenosis of bilateral carotid arteries; N83.201 Unspecified ovarian cyst, right side; N83.202 Unspecified ovarian cyst, left side
CPT/HCPCS: 76856; 94060; 94726; 94729

== ENCOUNTER → 2019-12-29 12:28 | Outpatient (CLI) | payer MEDICARE, SELFPAY ==
[2019-10-23 19:36] VITALS: BMI 19.9
[2019-12-29 12:30] VITALS: PULSE 60; PULSE 63; PULSE 70; PULSE 73; PULSE 74; PULSE 75; PULSE 76; PULSE 77; O2SAT 94; O2SAT 95; O2SAT 96; O2SAT 97; O2SAT 98; O2SAT 99
--- NOTE | 2020-01-01 08:59 | WT_ITS ---
PSN 6 Minute Walk Test - 6 Minute Walk Test 6 Minute Walk Test: 6 Minute Walk Test PSN:6-Minute Walk Test Start: 12/29/19 13:26 Freq: Status: Active Protocol: [id number] Document 12/29/19 12:30 EW (Rec: 12/29/19 13:30 EW [id number]) 6 Minute Walk Test Date Performed 12/29/19 Time Performed 12:30 Height 5 ft 7 in Weight: 130 lb Weight in Pounds 130.[address]: Kirsten Padilla [employer] Assistive device used: None Pre-test Oxygen Delivery Method Room Air Pulse Ox (%) 96 Pulse Rate (60-100 beats/min) 60 Dyspnea Masood Scale (0-10) 0 Exertion Masood Scale (6-20) 6 1st minute Oxygen Delivery Method Room Air Pulse Ox (%) 97 Pulse Rate (60-100 beats/min) 70 2nd minute Oxygen Delivery Method Room Air Pulse Ox (%) 99 Pulse Rate (60-100 beats/min) 77 3rd minute Oxygen Delivery Method Room Air Pulse Ox (%) 98 Pulse Rate (60-100 beats/min) 74 4th minute Oxygen Delivery Method Room Air Pulse Ox (%) 95 Pulse Rate (60-100 beats/min) 75 5th minute Oxygen Delivery Method Room Air Pulse Ox (%) 95 Pulse Rate (60-100 beats/min) 73 6th minute Oxygen Delivery Method Room Air Pulse Ox (%) 98 Pulse Rate (60-100 beats/min) 76 Post-test Oxygen Delivery Method Room Air Pulse Ox (%) 94 Pulse Rate (60-100 beats/min) 63 Dyspnea Masood Scale (0-10) 1 Exertion Masood Scale (6-20) 8 Full Laps Walked 12 Partial Lap, Number of Tiles Walked 45 Total Distance Walked (ft) 753 - Interpretation Interpretation: The patient ambulated 753 feet over the course of 6 minutes beginning on room air without assistive devices or breaks. Pretesting oxygen saturation was noted to be 96% on room air. With ambulation, the yassine oxygen saturation was 95%. Although there was evidence of impaired walk distance, there was no significant exertional oxygen desaturation. - Recommendations Recommendations: There is no indication for the use of supplemental oxygen at this time.
== END ==
PROVIDERS: PCP Internal Medicine; Referring Provider Nurse Practitioner Acute Care; Visit Provider Nurse Practitioner Acute Care
DX: J44.9 Chronic obstructive pulmonary disease, unspecified (principal)
CPT/HCPCS: 94618

== ENCOUNTER → 2020-01-24 12:33 | Outpatient (CLI) | payer MEDICARE, SELFPAY ==
[2019-10-23 19:36] VITALS: BMI 19.9
--- NOTE | 2020-01-24 12:36 | BI_ITS ---
MAMMOGRAPHY - BILATERAL SCREENING REASON FOR EXAM: Female, 74 years old. Routine annual screening examination. PERTINENT HISTORY: Sister with breast cancer. TECHNIQUE: Digital bilateral breast malcolm (3D mammographic acquisition) in the CC and MLO projections. 2-D mediolateral oblique (MLO) and craniocaudad (CC) views of both breasts were obtained. CAD: Full Field Digital Mammography with Computer Added Detection was performed. COMPARISON: Comparison is made with prior study dated 01/12/2019 and 12/10/2017 FINDINGS: Breast Composition: The breasts are extremely dense, which lowers the sensitivity of mammography. There are no dominant masses or suspicious calcifications. Stable bilateral secretory calcifications. No other significant abnormalities are identified. There has been no significant change since the prior study. BI/SCREEN MAMM (CAD) W/MALCOLM BILAT IMPRESSION: Stable bilateral screening mammogram. Yearly follow-up mammogram recommended. (A) ASSESSMENT CATEGORY: BIRADS Category 1: Negative. A letter regarding these results will be sent to the patient by the facility within 30 days. Approximately 10% of breast cancers are not detected by mammography. A normal mammogram should not delay biopsy of a clinically suspicious abnormality. [id number] Electronically Signed: Johnny Gilman, at 14:10 EST , Service support ,
== END ==
PROVIDERS: PCP Internal Medicine; Referring Provider Internal Medicine; Visit Provider Internal Medicine
DX: Z12.31 Encounter for screening mammogram for malignant neoplasm of breast (principal); Z80.3 Family history of malignant neoplasm of breast
CPT/HCPCS: 77063; 77067

== ENCOUNTER → 2020-02-23 07:42 | Outpatient (CLI) | payer MEDICARE, SELFPAY ==
[2019-10-23 19:36] VITALS: BMI 19.9
--- NOTE | 2020-02-23 07:45 | CDU_ITS ---
Reason For Study: Bilateral Carotid Stenosis Rt. Velocities/BP Lt. Velocities/BP Prox CCA 96.9/ 12.1 cm/sec. Prox CCA 59.0/ 10.1 cm/sec. Mid CCA 91.6/ 16.0 cm/sec. Mid CCA 67.7/ 12.7 cm/sec. Dist CCA 72.1/ 17.3 cm/sec. Dist CCA 68.8/ 19.3 cm/sec. Prox ICA 53.4/ 16.0 cm/sec. Prox ICA 56.7/ 10.1 cm/sec. Mid ICA 116.2/ 32.1 cm/sec. Mid ICA 88.0/ 11.3 cm/sec. Dist ICA 69.1/ 19.2 cm/sec. Dist ICA 96.6/ 23.6 cm/sec. Rt. ICA/CCA = 1.27. Lt. ICA/CCA = 1.43. Prox ECA 107.0/ 10.2 cm/sec. Prox ECA 77.2/ 7.2 cm/sec. Rt. Vert. 42.4/ 6.6 cm/sec. Lt. Vert. 69.1/ 15.3 cm/sec. Right Extracranial There is intimal thickening but no significant atherosclerotic plaque noted in the right common carotid artery. There is heterogeneous, irregular atherosclerotic plaque noted in the right internal carotid artery. There is heterogeneous, irregular atherosclerotic plaque noted in the right external carotid artery. Antegrade flow is noted in the right vertebral artery. Left Extracranial There is intimal thickening but no significant atherosclerotic plaque noted in the left common carotid artery. There is heterogeneous, irregular atherosclerotic plaque noted in the left internal carotid artery. There is homogeneous, smooth atherosclerotic plaque noted in the left external carotid artery. Antegrade flow is noted in the left vertebral artery. There is heterogeneous, irregular atherosclerotic plaque noted in the left bulb. Procedure This is a Carotid Duplex examination using B-mode, color flow and specral Doppler. Carotid Duplex [id number]. Exam performed in department. Interpretation Summary Mild (<50%) stenosis right extracranial internal carotid. Mild (<50%) stenosis left extracranial internal carotid. Flow within the vertebral arteries is antegrade bilaterally. Heterogeneous, irregular atherosclerotic plaque is noted in the left carotid bulb, which does not appear to be hemodynamically significant. Ordering Physician: Zuri Gutierrez Referring Physician: Zuri Gutierrez Performed By: Lizz De Jesus RVT and Student
== END ==
PROVIDERS: PCP Internal Medicine; Referring Provider Internal Medicine; Visit Provider Internal Medicine
DX: I65.23 Occlusion and stenosis of bilateral carotid arteries (principal)
CPT/HCPCS: 93880

== ENCOUNTER → 2021-02-26 14:19 | Outpatient (CLI) | payer MEDICARE, SELFPAY ==
[2021-02-26 14:42] VITALS: BP 170/68; PULSE 70; RESP 16; TEMP 36.5; O2SAT 100
[2021-02-26] MEDS: DENOSUMAB 60 MG/ML SC (14:43)
== END ==
PROVIDERS: PCP Internal Medicine; Referring Provider Internal Medicine; Visit Provider Internal Medicine
DX: M81.8 Other osteoporosis without current pathological fracture (principal)
CPT/HCPCS: 96372; J0897

== ENCOUNTER → 2021-02-27 13:02 | Outpatient (CLI) | payer MEDICARE, SELFPAY ==
--- NOTE | 2021-02-27 13:04 | CDU_ITS ---
Reason For Study: carotid stenosis Rt. Velocities/BP Lt. Velocities/BP Prox CCA 102.1/16.0 cm/sec. Prox CCA 83.8/4.7 cm/sec. Mid CCA 90.4/13.4 cm/sec. Mid CCA 82.7/17.9 cm/sec. Dist CCA 87.8/16.0 cm/sec. Dist CCA 88.2/16.8 cm/sec. Prox ICA 75.1/17.9 cm/sec. Prox ICA 108.3/17.0 cm/sec. Mid ICA 95.9/27.8 cm/sec. Mid ICA 91.2/18.8 cm/sec. Dist ICA 75.0/23.4 cm/sec. Dist ICA 74.1/18.8 cm/sec. Rt. ICA/CCA = 1.1. Lt. ICA/CCA = 1.3. Prox ECA 189.4/7.2 cm/sec. Prox ECA 108.4 cm/sec. Rt. Vert. 50.9/13.5 cm/sec. Lt. Vert. 65.5/12.6 cm/sec. Right Extracranial There is homogeneous, smooth atherosclerotic plaque noted in the right common carotid artery. There is heterogeneous, irregular atherosclerotic plaque noted in the right internal carotid artery. There is heterogeneous, irregular atherosclerotic plaque noted in the right external carotid artery. Antegrade flow is noted in the right vertebral artery. Left Extracranial There is intimal thickening but no significant atherosclerotic plaque noted in the left common carotid artery. There is heterogeneous, irregular atherosclerotic plaque noted in the left internal carotid artery. There is heterogeneous, irregular atherosclerotic plaque noted in the left external carotid artery. Antegrade flow is noted in the left vertebral artery. Procedure Carotid Duplex [id number]. This is a Carotid Duplex examination using B-mode, color flow and specral Doppler. The exam was diagnostic. Exam performed in department. VL/Carotid Duplex Ultrasound Interpretation Summary Mild (<50%) stenosis right extracranial internal carotid. Mild (<50%) stenosis left extracranial internal carotid. Flow within the vertebral arteries is antegrade bilaterally. Ordering Physician: Zuri Gutierrez Performed By: Rufino Ashley RVT
== END ==
PROVIDERS: PCP Internal Medicine; Referring Provider Internal Medicine; Visit Provider Internal Medicine
DX: I65.23 Occlusion and stenosis of bilateral carotid arteries (principal)
CPT/HCPCS: 93880

== ENCOUNTER 2021-04-03 13:24 | Outpatient (CLI) | payer MEDICARE, SELFPAY ==
--- NOTE | 2021-04-03 13:28 | BD_ITS ---
STUDY: DUAL ENERGY X-RAY ABSORPTIOMETRY / DXA REASON FOR EXAM: Female, 76 years old. Z780. The patient is postmenopausal. TECHNIQUE: Bone Mineral Density (BMD) measurements of lumbar spine and bilateral hips were obtained. COMPARISON: Comparison is made with prior study dated 01/12/2019. FINDINGS: Lumbar Spine (L1-L4): g/cm2 (0.766) / T-score (-1.9) / Z-score (0.4) Findings are suggestive of osteopenia with a moderate fracture risk. Left Femur Total: g/cm2 (0.591) / T-score (-2.9) / Z-score (-1.0) Left Femoral Neck: g/cm2 (0.522) / T-score (-2.9) / Z-score (-0.8) Right Femur Total: g/cm2 (0.557) / T-score (-3.2) / Z-score (-1.3) Right Femoral Neck: g/cm2 (0.463) / T-score (-3.5) / Z-score (-1.3) The T-Scores on the most recent prior examination were: Lumbar Spine (L1-L4): There has been worsening of bone density since the previous examination. Left Femur Total: which represents a worsening of 5.4%. Right Femur Total: which represents a worsening of 10.8%. BD/Dexa Bone Density Study IMPRESSION: The patient is considered osteoporotic as outlined below according to World Kade Organization (WHO) criteria with a high fracture risk. There has been worsening of bone density since the previous examination. Reference Information: The T-score is the number of standard deviations above or below the standard which is normal for young adults at their peak bone mineral density. The World Health Organization (WHO) interprets the T-scores as follows: Above -1 Normal bone density Between -1 and -2.5 Osteopenia Equal to / or below -2.5 Osteoporosis As a practical clinical guideline, osteopenia may be graded as follows: Mild -1 through -1.5 Moderate -1.6 through -2.0 Severe -2.1 through -2.4 The Z-score is the number of standard deviations above or below age-matched controls. A Z-score of less than -1.5 would be considered abnormal. References: 1. NIH Osteoporosis and Related Bone Diseases www osteo.org 2. International Society for Clinical Densitometry www iscd.org 3. National Osteoporosis Foundation www nof.org Electronically Signed: Johnny Gilman MD at 14:28 EST , Service support ,
== END 2021-04-03 23:59 | disposition short-term general hospital (02) ==
LOC: OPBD 13:25
PROVIDERS: PCP Internal Medicine; Referring Provider Internal Medicine; Visit Provider Internal Medicine
DX: Z78.0 Asymptomatic menopausal state (principal)
CPT/HCPCS: 77080

== ENCOUNTER 2021-05-04 13:03 | Emergency (ER) | payer MEDICARE, SELFPAY ==
[2021-05-04 13:05] VITALS: BP 136/66; PULSE 74; RESP 17; TEMP 36.6; O2SAT 97; BMI 20.5
--- NOTE | 2021-05-04 13:27 | CT_ITS ---
HISTORY: confusion, dizziness. TECHNIQUE: Multiple axial images were obtained of the brain without intravenous contrast. A radiation dose optimization technique was used for this scan. # of images incl. paperwork: 246. COMPARISON: 07/22/2019. FINDINGS: BRAIN PARENCHYMA:Multiple small foci and zones of low attenuation in the cerebral white matter most compatible with chronic small vessel ischemic gliosis. INTRACRANIAL HEMORRHAGE: No acute intracranial hemorrhage. CSF SPACES/MASS EFFECT: Diffuse atrophy with compensatory ventricular enlargement. No midline shift or other significant mass effect. ORBITS: Bilateral lens resections. CALVARIUM: Intact. PARANASAL SINUSES AND MASTOID AIR CELLS: Sinonasal postoperative change with mild paranasal sinus because of thickening. Hardware in the maxilla and cervical spine. CT/Brain/Head without Contrast IMPRESSION: No acute intracranial process identified. Chronic small vessel ischemic gliosis. Individualized dose optimization techniques were used for this CT. at 1505 Reported and signed by: Sabina Wharton MD Electronically Signed: Sabina Wharton MD at 15:04 EST ,
--- NOTE | 2021-05-04 13:28 | EKG12_ITS ---
Test Reason : NEAR SYNCOPE Blood Pressure : / mmHG Vent. Rate : 074 BPM Atrial Rate : 074 BPM P-R Int : 242 ms QRS Dur : 078 ms QT Int : 398 ms P-R-T Axes : 056 011 003 degrees QTc Int : 441 ms Sinus rhythm with 1st degree A-V block with Premature supraventricular complexes and with occasional Premature ventricular complexes Otherwise normal ECG Confirmed by MONICA JC, EMILY ([id number]), commissioning editor LORENZO MOREL ([id number]) on 05/06/2021 12:46:02 PM Referred By: CHRIS Confirmed By:EMILY ANDERSON MD
--- NOTE | 2021-05-04 13:29 | EX.ED.DYSGE1 ---
HPI History of Present Illness Chief Complaint: Syncope Detail of Chief Complaint: Not feeling well and dizziness for about 2 days Informant: patient and family Narrative Narrative: Patient presents to the emergency department with her son with complaint of of not feeling well for the last 2 days. Patient has a hard time explaining how she is not feeling well. Son states that she does have the start of Alzheimer's dementia. Patient has been complaining of feeling lightheaded and dizzy over the last 2 days. The son has been checking her vital signs and she has had some readings of systolic blood pressure in the 70s and 80s at times. Son's been trying to hydrate her. Patient denies any chest pain currently but had some discomfort last evening. She denies abdominal pain. She is had no vomiting. Patient has a chronic cough. Patient has not had Covid and is not immunized against COVID-19. Patient denies urinary symptoms. Patient has not had any syncopal episodes. Prior similar symptoms: No PFSH PFSH Medical History (Updated 05/04/21 @ 16:[address] Diallo Sevilla, ) Atherosclerotic heart disease of [place] coronary artery without angina pectoris Carotid stenosis Chest pain COPD (chronic obstructive pulmonary disease) Essential hypertension Fibromyalgia GERD (gastroesophageal reflux disease) History of pulmonary embolism Hyperlipidemia Hypertension Iron deficiency Lung nodule Moderate persistent asthma Paroxysmal atrial fibrillation [employer] Home Medications cholecalciferol (vitamin D3) 2,000 unit PO DAILY@1200 06/20/15 [History Last Taken 04/19/19] levalbuterol tartrate 2 puff IH Q6H PRN PRN 04/20/19 [History Last Taken 04/20/19] mometasone 2 puff PO BID 04/20/19 [History Last Taken 04/20/19] multivitamin with minerals 1 tab PO DAILY 04/20/19 [History Last Taken 04/19/19] acetaminophen 1,000 mg PO Q8H #1 tab 11/04/19 [Rx Last Taken Unknown] ascorbic acid (vitamin C) 500 mg PO DAILY #30 cap 11/04/19 [Rx Last Taken Unknown] aspirin 81 mg PO DAILY #1 tablet. 11/04/19 [Rx Last Taken Unknown] calcium carbonate 500 mg PO DAILY #30 tab 11/04/19 [Rx Last Taken Unknown] ferrous sulfate 325 mg PO DAILY #30 tab 11/04/19 [Rx Last Taken Unknown] fluticasone propionate 1 spray NASAL BID #1 bottle 11/04/19 [Rx Last Taken Unknown] isosorbide dinitrate 30 mg PO DAILY #30 tab 11/04/19 [Rx Last Taken Unknown] levothyroxine 25 mcg PO DAILY #30 tab 11/04/19 [Rx Last Taken Unknown] montelukast 10 mg PO DAILY #30 tab 11/04/19 [Rx Last Taken Unknown] rivaroxaban 20 mg PO DAILY@1700 tab 11/04/19 [Rx Last Taken Unknown] vitamin E 200 unit capsule 200 unit PO DAILY 01/15/21 [History Last Taken Unknown] carvedilol 6.25 mg tablet 6.25 mg PO BID #180 tab 02/28/21 [Rx Last Taken Unknown] Allergy/AdvReac Type Severity Reaction Status Date / Time No Known Allergies Allergy Verified 05/04/21 13:05 Family History Sister Breast cancer Brother Heart disease Sister Diabetes Surgical History History of foot surgery History of hand surgery History of mandibular surgery History of sinus surgery mole removal Social History Smoking Status: Former smoker second hand exposure: No alcohol intake: never substance use type: does not use ROS ROS ED Constitutional Constitutional ED: Reports systems reviewed and no addt'l complaints, except as documented; Denies body ache(s), change in weight or chills Eyes Eyes: Denies acute decrease in peripheral vision, change in vision, double vision or loss of vision ENT ENT ED: Reports none; Denies ear pain, lip swelling, loss taste/smell, neck pain, otalgia or sore throat Cardiovascular Cardiovascular: Reports none and chest pain; Denies abdominal pain, chest pain with activity, leg edema, lightheadedness, palpitations, rapid heart rate or syncope Respiratory/Chest Respiratory/Chest: Reports none and cough; Denies change in mental status, dry cough, dyspnea, hemoptysis, shortness of breath at rest or shortness of breath with exertion Gastrointestinal Gastrointestinal: Reports none; Denies abdominal pain, change in stool character, diarrhea, hematemesis, hematochezia, melena, rectal bleeding or vomiting Genitourinary Genitourinary ED: Reports none; Denies abdominal discomfort, anuria, dysuria, genital pain or polyuria Musculoskeletal Musculoskeletal: Reports none; Denies arthralgias, back pain, difficulty walking, extremity pain, muscle weakness or myalgias Integumentary Reports none; Denies abscess or rash Neurologic Neurologic: Reports none, headache(s) and other Details: Dizziness ; Denies abnormal gait, confusion, focal weakness, frequent falls, loss of vision, numbness, paresthesias, radicular pain, vertigo or weakness Psychiatric Psychiatric: Reports systems reviewed and no addt'l complaints, except as documented and none; Denies behavioral changes, confusion, difficulty concentrating, hallucinations, suicidal ideation, tactile hallucinations or visual hallucinations Endocrine Endocrinology: Denies none, cold intolerance, excessive sweating, fatigue or heat intolerance Hematologic/Lymphatic Hematologic/Lymphatic: Reports none; Denies anemia, easy bleeding or easy bruising Allergic/Immunologic Allergic/Immunologic ED: Denies as per HPI, none, lip swelling, mouth swelling, throat swelling, tongue swelling or hives EXAM Physical Exam Const Vital Signs: 05/04/21 13:05 05/04/21 13:26 05/04/21 15:13 Temperature 97.8 F Temperature Source Temporal Pulse Rate 74 80 Pulse Rate [Lying] Pulse Rate [Sitting] Pulse Rate [Standing] Respiratory Rate 17 20 H Respiratory Effort Normal Respiratory Pattern Normal Blood Pressure 136/66 H 127/112 H Blood Pressure [Lying] Blood Pressure [Sitting] Blood Pressure [Standing] Blood Pressure Mean 89 117 Blood Pressure Mean [Lying] Blood Pressure Mean [Sitting] Blood Pressure Mean [Standing] Pulse Ox 97 96 Oxygen Delivery Method Room Air Room Air 05/04/21 15:36 Temperature Temperature Source Pulse Rate Pulse Rate [Lying] 73 Pulse Rate [Sitting] 71 Pulse Rate [Standing] 110 H Respiratory Rate Respiratory Effort Respiratory Pattern Blood Pressure Blood Pressure [Lying] 155/82 H Blood Pressure [Sitting] 133/79 H Blood Pressure [Standing] 153/92 H Blood Pressure Mean Blood Pressure Mean [Lying] 106 Blood Pressure Mean [Sitting] 97 Blood Pressure Mean [Standing] 112 Pulse Ox Oxygen Delivery Method Positive well nourished and well developed General Appearance ED: well developed and NAD HEENT Reports TM's clear and moist mucous membranes normocephalic and atraumatic; Negative for trauma or tenderness Tympanic Membrane ED: Yes TM's clear Eyes PERRL and EOMs intact bilaterally General Eye ED: Negative for pale conjunctiva or scleral icterus Neck no lymphadenopathy, supple and no JVD General: Negative for tenderness Chest Wall inspection of chest normal and palpation of chest normal Chest: Negative for tenderness Resp normal respiratory effort and clear to auscultation bilaterally Effort and Inspection: Negative for respiratory distress or pain with movement Auscultation: Negative for rhonchi, wheezes or diminished lung sounds Cardio S1 normal heart sound, S2 normal heart sound and no murmurs Rate: other Other Details: Irregularly irregular Peripheral Pulses: pulses 2+ throughout GI normal to inspection, nondistended, normoactive bowel sounds, soft to palpation, non-tender, non-distended and no masses Back/Spine no CVA tenderness and no thoracic nor lumbar tenderness Extremity normal to inspection General Extremety ED: Negative for edema General Extremity: Negative for edema Neuro oriented x3, CN's II-XII intact bilaterally, no sensory deficits noted and gait normal Neuro Narrative: No focal deficits noted Sensorium / Orientation: awake, alert, oriented to person, oriented to place and oriented to time Motor Exam: strength 5/5 throughout and strength abnormal Psych mental status grossly normal Skin no rashes or lesions noted and no wounds MDM MDM MDM Narrative Medical decision making narrative: IV line established on arrival. Patient placed on a secured entrance monitor. Lab work-up unremarkable. Patient was noted to be positive for COVID-19 on rapid test. Lab Data Attestation: I reviewed the patient's lab results. Labs: Laboratory Results - last 24 hr 05/04/21 05/04/21 05/04/21 14:00 14:00 14:00 WBC 3.2 L RBC 4.02 L Hgb 12.2 Hct 37.6 MCV 93.5 MCH 30.3 MCHC 32.4 RDW Std Deviation 42.5 RDW Coeff of Reina 12.3 Plt Count 179 MPV 10.9 Immature Gran % (Auto) 0.300 Neut % (Auto) 51.1 Lymph % (Auto) 39.6 [place] % (Auto) 8.7 Eos % (Auto) 0.0 Baso % (Auto) 0.3 Absolute Neuts (auto) 1.7 L Absolute Lymphs (auto) 1.28 Nucleated RBC % 0 Sodium 138 Potassium 4.7 Chloride 105 Carbon Dioxide 26.0 Anion Gap 7 BUN 24 H Creatinine 1.03 H Estim Creat Clear Calc 42.46 Est GFR (MDRD) Af Amer 67 Est GFR (MDRD) Non-Af 55 L BUN/Creatinine Ratio 23.3 H Glucose 103 Lactic Acid 1.5 Calcium 8.4 L Troponin I High Sens 18 Urine Color Urine Clarity Urine pH Ur Specific [place] Urine Protein Urine Glucose (UA) Urine Ketones Urine Occult Blood Urine Nitrite Urine Bilirubin Urine Urobilinogen Ur Leukocyte Esterase Urine RBC Urine WBC Ur Squamous Epith Cells Urine Bacteria Urine Mucus 05/04/21 16:00 WBC RBC Hgb Hct MCV MCH MCHC RDW Std Deviation RDW Coeff of Reina Plt Count MPV Immature Gran % (Auto) Neut % (Auto) Lymph % (Auto) [place] % (Auto) Eos % (Auto) Baso % (Auto) Absolute Neuts (auto) Absolute Lymphs (auto) Nucleated RBC % Sodium Potassium Chloride Carbon Dioxide Anion Gap BUN Creatinine Estim Creat Clear Calc Est GFR (MDRD) Af Amer Est GFR (MDRD) Non-Af BUN/Creatinine Ratio Glucose Lactic Acid Calcium Troponin I High Sens Urine Color Yellow Urine Clarity Clear Urine pH 7.0 Ur Specific [place] 1.010 Urine Protein Negative Urine Glucose (UA) Normal Urine Ketones 15 H Urine Occult Blood Negative Urine Nitrite Positive H Urine Bilirubin Negative Urine Urobilinogen Normal Ur Leukocyte Esterase 25 H Urine RBC 0-5 SEEN Urine WBC 10-25 SEEN Ur Squamous Epith Cells 25-50 SEEN Urine Bacteria 3+ Urine Mucus 0 SEEN Radiography Diagnostic Testing: Clinical Impression(s) from Imaging Studies Brain CT 05/04/21 13:27 IMPRESSION: No acute intracranial process identified. Chronic small vessel ischemic gliosis. Individualized dose optimization techniques were used for this CT. at 1505 Reported and signed by: Sabina Wharton MD Electronically Signed: Sabina Wharton MD at 15:04 EST , Chest X-Ray 05/04/21 14:00 IMPRESSION: Left lower lobe atelectatic change abutting the hemidiaphragm with superimposed airspace disease/infiltrate not excluded, clinically correlate. Electronically Signed: Jose Luis Olivo DO at 14:17 EST , 1 view chest creatinine interpreted by myself as no acute disease process. Radiology felt there may be a left lower lobe atelectatic change abutting the diaphragm with superimposed airspace disease/infiltrate not excluded. EKG Initial EKG: Attestation: I personally reviewed and interpreted this EKG as follows: Comments: Sinus rhythm with a ventricular rate of 72 bpm with a first-degree AV block Prior EKG tracings: available for review Prior: Unchanged Discharge Plan Triage Chief Complaint: Syncope ED Provider: Diallo Sevilla Dx/Rx/DC Orders Clinical Impression: COVID-19, Weakness Instructions: Caring for Someone Who Has COVID-19 Prescriptions: No Action vitamin E 200 unit capsule 200 unit PO DAILY RF: 0 cholecalciferol (vitamin D3) 1,000 UNIT tablet 2,000 unit PO DAILY@1200 RF: 0 multivitamin with minerals 1 EACH tablet 1 tab PO DAILY RF: 0 levalbuterol tartrate 15 GM HFA aerosol inhaler 2 puff IH Q6H PRN PRN (Reason: Sob &/Or Wheezing) RF: 0 mometasone 13 GM HFA aerosol inhaler 2 puff PO BID RF: 0 aspirin 81 MG tablet,delayed release (DR/EC) 81 mg PO DAILY Qty: 1 RF: 0 acetaminophen 500 MG tablet 1,000 mg PO Q8H Qty: 1 RF: 0 levothyroxine 25 MCG tablet 25 mcg PO DAILY Qty: 30 RF: 0 isosorbide dinitrate 30 MG tablet 30 mg PO DAILY Qty: 30 RF: 0 calcium carbonate 500 MG tablet 500 mg PO DAILY Qty: 30 RF: 0 ferrous sulfate 325 MG tablet 325 mg PO DAILY Qty: 30 RF: 0 montelukast 10 MG tablet 10 mg PO DAILY Qty: 30 RF: 0 fluticasone propionate 1 SPRAY spray,suspension 1 spray NASAL BID Qty: 1 RF: 0 rivaroxaban 20 MG tablet 20 mg PO DAILY@1700 RF: 0 ascorbic acid (vitamin C) 500 MG capsule 500 mg PO DAILY Qty: 30 RF: 0 carvedilol 6.25 mg tablet 6.25 mg PO BID Qty: 180 RF: 4 Primary Care Provider: Zuri Gutierrez Referrals: Zuri Gutierrez DO [Primary Care Provider] - 5-7 Days Disposition Disposition: Home, Self Care
--- NOTE | 2021-05-04 14:00 | RAD_ITS ---
STUDY: X-RAY CHEST REASON FOR EXAM: Female, 76 years old. cough TECHNIQUE: 04/20/2019 COMPARISON: None. FINDINGS: Left lower lung atelectatic change with mild basilar airspace disease not excluded. There is no demonstrated pleural abnormality. Normal size heart. Normal mediastinum and iglesia. Normal visualized pulmonary arteries. There is atherosclerotic calcification of the aortic arch with tortuosity. There is demineralization of the osseous structures. Normal visualized ribs, clavicles, and shoulders. There is no demonstrated abnormality of the visualized soft tissue structures of the upper abdomen. RAD/Chest 1 View (Portable) IMPRESSION: Left lower lobe atelectatic change abutting the hemidiaphragm with superimposed airspace disease/infiltrate not excluded, clinically correlate. Electronically Signed: Jose Luis Olivo DO at 14:17 EST ,
[2021-05-04 14:16] LABS: Absolute Lymphocyte Count 1.28 X10^3/uL (0.83-4.51); Absolute Neutrophil Count 1.7 X10^3/uL (2.0-7.7); Basophil# 0.01 X10^3/uL; Basophil% 0.3 % (0-1); Hematocrit 37.6 % (37-47); Hemoglobin 12.2 g/dL (12.0-15.0); Lymphocyte # 1.28 X10^3/ul (0.83-4.51); Lymphocyte % 39.6 % (19-41); Mean Corp Hgb Conc 32.4 g/dL (32-36); Mean Corpuscular Hgb 30.3 pg (27.0-32.0); Mean Corpuscular Volume 93.5 fL (81-99); Mean Platelet Vol. 10.9 fl (6.2-12.0); Monocyte# 0.28 X10^3/uL; Monocyte% 8.7 % (0-10); NRBC Flagged by Analyzer 0 % (0-5); Neutrophil # 1.65 X10^3/uL (2.7-7.7); Neutrophil % 51.1 % (47-70); Platelet Count 179 K/mm3 (150-450); RBC Distribution Width CV 12.3 % (11.6-14.6); RBC Distribution Width SD 42.5 fl (35.1-43.9); Red Blood Count 4.02 M/mm3 (4.2-5.4); White Blood Count 3.2 K/mm3 (4.4-11.0)
[2021-05-04 14:38] LABS: Anion Gap 7 (5-15); BUN 24 mg/dL (7-18); BUN/Creat Ratio 23.3 RATIO (10-20); Calcium,Total 8.4 mg/dL (8.5-10.1); Chloride 105 mmol/L (98-107); Creatinine, Serum 1.03 mg/dL (0.55-1.02); EST Glomerular Filtration Rate 55 mL/min (>60); Est Glom Filt Rate - Afr Amer 67 mL/min (>60); Estimated Creatinine Clearance 42.46 ml/min; Glucose 103 mg/dL (74-106); Lactic Acid 1.5 mmol/L (0.4-1.9); Potassium 4.7 mmol/L (3.5-5.1); Sodium Level 138 mmol/L (136-145); Troponin-I HS 18 pg/mL (3.0-54.0)
[2021-05-04] MEDS: 0.9% Normal Saline 1,000 ML 150 ML IV (14:41)
[2021-05-04 15:13] VITALS: BP 127/112; PULSE 80; RESP 20; O2SAT 96
[2021-05-04 15:36] VITALS: BP 133/79; BP 153/92; BP 155/82; PULSE 110; PULSE 71; PULSE 73
[2021-05-04 16:05] LABS: Mucous, Urine 0 SEEN /hpf (<or=2+)
[2021-05-04 16:12] LABS: Color, Urine Yellow (Yellow); Glucose, Dipstick Normal (Normal); Ketone-Dipstick 15 mg/dl (Negative); Leukocyte Esterase-Dipstick 25 /ul (Negative); Nitrite-Dipstick Positive (Negative); Occult Blood-Urine Negative /ul (Negative); Protein-Dipstick Negative (Negative); Urine Bilirubin Dipstick Negative (Negative); Urine Clarity Clear (Clear); Urine Urobilinogen Normal (Normal)
[2021-05-04 16:18] LABS: Bacteria 3+ /hpf (None Seen); Red Blood Cells-Urine 0-5 SEEN /hpf (0-5); Squamous Epithelial Cells - UA 25-50 SEEN /hpf (5-10); White Blood Cells 10-25 SEEN /hpf (0-5)
[2021-05-04 16:44] VITALS: BP 129/73; PULSE 74; RESP 20; O2SAT 98
== END 2021-05-04 16:55 | disposition home or self-care (01) ==
PROVIDERS: Emergency Provider Emergency Medicine; PCP Internal Medicine; Visit Provider Emergency Medicine
DX: U07.1 COVID-19 (principal); J44.9 Chronic obstructive pulmonary disease, unspecified; I48.0 Paroxysmal atrial fibrillation; R53.1 Weakness; E78.5 Hyperlipidemia, unspecified; I10 Essential (primary) hypertension; I25.10 Atherosclerotic heart disease of native coronary artery without angina pectoris; E61.1 Iron deficiency; M79.7 Fibromyalgia; Z79.82 Long term (current) use of aspirin; Z79.899 Other long term (current) drug therapy; Z87.891 Personal history of nicotine dependence
CPT/HCPCS: 70450; 71045; 80048; 81001; 83605; 84484; 85025; 87040; 87426; 93005; 96360; 96361; 99285; J7030

== ENCOUNTER → 2021-07-08 | Outpatient (CLI) | payer MEDICARE, SELFPAY ==
[2021-07-08 11:13] LABS: Absolute Lymphocyte Count 1.17 X10^3/uL (0.83-4.51); Absolute Neutrophil Count 2.2 X10^3/uL (2.0-7.7); Basophil# 0.04 X10^3/uL; Eosinophil# 0.17 X10^3/uL; Eosinophils% 4.3 % (0-5); Hematocrit 34.7 % (37-47); Hemoglobin 11.1 g/dL (12.0-15.0); Lymphocyte # 1.17 X10^3/ul (0.83-4.51); Lymphocyte % 29.8 % (19-41); Mean Corpuscular Hgb 30.2 pg (27.0-32.0); Mean Corpuscular Volume 94.6 fL (81-99); Mean Platelet Vol. 10.8 fl (6.2-12.0); Monocyte# 0.36 X10^3/uL; Monocyte% 9.2 % (0-10); NRBC Flagged by Analyzer 0 % (0-5); Neutrophil # 2.18 X10^3/uL (2.7-7.7); Neutrophil % 55.4 % (47-70); Platelet Count 229 K/mm3 (150-450); RBC Distribution Width CV 13.3 % (11.6-14.6); RBC Distribution Width SD 45.7 fl (35.1-43.9); Red Blood Count 3.67 M/mm3 (4.2-5.4); White Blood Count 3.9 K/mm3 (4.4-11.0)
[2021-07-08 11:37] LABS: AST(SGOT) 18 U/L (15-37); Alanine Aminotransfer ALT/SGPT 17 U/L (13-56); Albumin, Serum 3.4 g/dL (3.2-5.0); Alkaline Phosphatase 50 U/L (45-117); Anion Gap 5 (5-15); BUN 27 mg/dL (7-18); BUN/Creat Ratio 27.9 RATIO (10-20); Calcium,Total 8.9 mg/dL (8.5-10.1); Chloride 110 mmol/L (98-107); Creatinine, Serum 0.97 mg/dL (0.55-1.02); EST Glomerular Filtration Rate 59 mL/min (>60); Est Glom Filt Rate - Afr Amer 72 mL/min (>60); Globulin 3.4 g/dL (2.2-4.2); Glucose 88 mg/dL (74-106); Potassium 4.3 mmol/L (3.5-5.1); Protein, Total 6.8 g/dL (6.4-8.2); Sodium Level 142 mmol/L (136-145); Thyroid Stim Hormone (TSH) 1.78 uIU/mL (0.358-3.74); Troponin-I HS 6 pg/mL (3.0-54.0)
== END | disposition home or self-care (01) ==
LOC: LABSPEC 11:05
PROVIDERS: PCP Internal Medicine; Visit Provider Internal Medicine
DX: I95.9 Hypotension, unspecified (principal)
CPT/HCPCS: 80053; 84443; 84484; 85025

== ENCOUNTER → 2021-07-11 | Outpatient (CLI) | payer MEDICARE, SELFPAY | END | disposition home or self-care (01) | LOC: PSN 09:20 | PROVIDERS: PCP Internal Medicine; Visit Provider Internal Medicine | DX: I49.3 Ventricular premature depolarization (principal) | CPT/HCPCS: 93225; 93226 ==

== ENCOUNTER → 2021-08-05 | Outpatient (CLI) | payer MEDICARE, SELFPAY ==
--- NOTE | 2021-08-05 10:43 | TELEMED_ITS ---
[facility] has confirmed receipt of a request for visit. This document confirms receipt of the order initiating the consult. To find the results of the consultation, please view the patient's reports for the scanned Telemed Consult.
== END | disposition home or self-care (01) ==
LOC: PSN 08:14
PROVIDERS: PCP Internal Medicine; Visit Provider Internal Medicine
DX: R55 Syncope and collapse (principal)
CPT/HCPCS: 95819

== ENCOUNTER → 2021-11-11 | Outpatient (CLI) | payer MEDICARE, SELFPAY ==
--- NOTE | 2021-11-11 07:58 | ECHOD_ITS ---
[id number] ECHO^ECHOD^Echo Complete [id number] Reason For Study: SYNCOPE Procedure This was a 2D Doppler, Color Flow transthoracic echocardiogram. The exam was of adequate technical quality. Exam performed in department. Left Ventricle Normal LV size. Sigmoid septum. Left ventricular systolic function is normal. The estimated ejection fraction is 65 %. Diastolic function is indeterminate. No regional wall motion abnormalities noted. Right Ventricle Normal RV size. Normal systolic function. Atria The left atrium is mildly enlarged. Normal right atrium. No doppler evidence for ASD. Mitral Valve There is moderate mitral annular calcification. Extension of the mitral annular calcification onto the base of the posterior mitral valve leaflet. Anterior leaflet diffuse mitral valve thickening. Mild (1+) mitral valve insufficiency. Tricuspid Valve Normal tricuspid valve. Mild tricuspid valve insufficiency. Right ventricular systolic pressure estimated to be 37 mmHg. Aortic Valve Trisinus/trileaflet aortic valve. Mild diffuse aortic valve thickening. Mild focal aortic valve calcification. Aortic sclerosis, no stenosis. Trivial aortic valve insufficiency. Pulmonic Valve The pulmonic valve is not well visualized. Great Vessels Normal sized aortic root. Pericardium/Pleural No pericardial effusion. MMode/2D Measurements & Calculations RVDd: 3.6 cm LVIDd: 4.5 cm FS: 15.9 % IVSd: 1.0 cm LVIDs: 3.7 cm LVPWd: 0.77 cm ESV(MOD-sp4): 28.3 ml Ao root diam: 2.9 cm LAV(MOD-bp): 73.2 ml LAV(MOD-bp) Indexed: 42.2 ml/m2 LAV(MOD-sp2): 66.9 ml LAV(MOD-sp4): 70.9 ml SV(MOD-sp4): 44.6 ml SV(sp4-el): 47.5 ml LVAd ap4: 25.5 cm2 LVLd ap4: 7.2 cm EDV(MOD-sp4): 72.9 ml EDV(sp4-el): 76.6 ml LVAs ap4: 14.1 cm2 LVLs ap4: 5.8 cm ESV(sp4-el): 29.1 ml EF(MOD-sp4): 61.2 % EF(sp4-el): 62.0 % LA A4 area: 22.6 cm2 LA dimension(2D): 3.8 cm RA A4 area: 19.1 cm2 Time Measurements MV dec time: 0.21 sec Doppler Measurements & Calculations MV E max jose: 104.1 cm/sec MV V2 max: 107.2 cm/sec MV dec slope: 538.3 cm/sec2 MV A max jose: 65.2 cm/sec MV max P.6 mmHg MV E/A: 1.6 MV V2 mean: 64.3 cm/sec MV mean P.9 mmHg MV V2 VTI: 28.9 cm Ao V2 max: 124.7 cm/sec LV V1 max P.1 mmHg PA V2 max: 91.3 cm/sec Ao max P.3 mmHg LV V1 mean P.7 mmHg Ao V2 mean: 91.1 cm/sec LV V1 max: 88.4 cm/sec Ao mean P.7 mmHg LV V1 mean: 61.6 cm/sec Ao V2 VTI: 31.9 cm LV V1 VTI: 25.1 cm TR max jose: 292.1 cm/sec TR max P.1 mmHg ECHO/Echo Complete Interpretation Summary Left ventricular systolic function is normal. The estimated ejection fraction is 65 %. Sigmoid septum. The left atrium is mildly enlarged. There is moderate mitral annular calcification. Extension of the mitral annular calcification onto the base of the posterior mi tral valve leaflet. Anterior leaflet diffuse mitral valve thickening. Mild (1+) mitral valve insufficiency. Mild tricuspid valve insufficiency. Aortic sclerosis, no stenosis. Trivial aortic valve insufficiency. Right ventricular systolic pressure estimated to be 37 mmHg. Diastolic function is indeterminate. Ordering Physician: Viki Green Referring Physician: Viki Green Performed By: Kerri Branham RCS
== END | disposition home or self-care (01) ==
PROVIDERS: PCP Internal Medicine; Referring Provider Physician Assistant Medical; Visit Provider Physician Assistant Medical
DX: I25.10 Atherosclerotic heart disease of native coronary artery without angina pectoris (principal)
CPT/HCPCS: 93306

== ENCOUNTER → 2022-05-18 | Outpatient (CLI) | payer MEDICARE, SELFPAY ==
--- NOTE | 2022-05-18 07:46 | MRI_ITS ---
HISTORY: SYNCOPE, DIZZINESS. TECHNIQUE: Multiplanar and multisequence MR images of the brain were obtained before and after the intravenous administration of 14 mL Dotarem. 335 images. COMPARISON: CT 05/04/2021, MR 06/30/2019. FINDINGS: BRAIN PARENCHYMA: Multiple foci and small zones of increased T2 FLAIR signal in the bilateral cerebral white matter. No enhancing mass. No abnormal focus of restricted diffusion. No acute intracranial hemorrhage identified. CSF SPACES: Mild-moderate generalized volume loss. No significant midline shift or other mass effect.No extra-axial fluid collection. VASCULAR SYSTEM: Major intracranial flow voids are maintained. OTHER: Artifact from cervical spinal fusion hardware. Sinonasal postoperative change with mild mucosal thickening. Bilateral lens resections. MRI/Brain W/WO Contrast IMPRESSION: No evidence for enhancing intracranial mass, acute infarct, or acute intracranial hemorrhage. Chronic involutional and white matter changes. Electronically Signed: Sabina Wharton MD at 9:56 EST ,
[2022-05-18 08:35] LABS: CREATININE FINGERSTICK < 0.9 mg/dL (0.55-1.02); EGFR FINGERSTICK > 60.0000 mL/min (>60)
== END | disposition home or self-care (01) ==
PROVIDERS: PCP Internal Medicine; Referring Provider Psychiatry & Neurology Neurology; Visit Provider Psychiatry & Neurology Neurology
DX: R55 Syncope and collapse (principal)
CPT/HCPCS: 70553; A9575

== ENCOUNTER → 2022-06-29 | Outpatient (CLI) | payer MEDICARE, SELFPAY ==
--- NOTE | 2022-06-29 14:41 | CDU_ITS ---
Reason For Study: BILATERAL CAROTID STENOSIS, DIZZINESS Rt. Velocities/BP Lt. Velocities/BP Prox CCA 62.0/5.3 cm/sec. Prox CCA 90.8/9.5 cm/sec. Mid CCA 73.3/15.7 cm/sec. Mid CCA 62.2/11.7 cm/sec. Dist CCA 59.1/13.8 cm/sec. Dist CCA 72.1/12.7 cm/sec. Prox ICA 60.4/15.0 cm/sec. Prox ICA 68.0/17.5 cm/sec. Mid ICA 81.3/26.0 cm/sec. Mid ICA 80.1/24.1 cm/sec. Dist ICA 68.6/19.1 cm/sec. Dist ICA 75.6/20.4 cm/sec. Rt. ICA/CCA = 81.3/73.3=1.1. Lt. ICA/CCA = 80.1/62.2=1.3. Prox ECA 150.9/6.6 cm/sec. Prox ECA 61.1/0.0 cm/sec. Rt. Vert. 44.3/11.2 cm/sec. Lt. Vert. 53.5/17.9 cm/sec. Right Extracranial There is heterogeneous, irregular atherosclerotic plaque noted in the right common carotid artery. There is heterogeneous, irregular atherosclerotic plaque noted in the right internal carotid artery. There is heterogeneous, irregular atherosclerotic plaque noted in the right external carotid artery. Antegrade flow is noted in the right vertebral artery. Left Extracranial There is heterogeneous, irregular atherosclerotic plaque noted in the left common carotid artery. There is heterogeneous, irregular atherosclerotic plaque noted in the left internal carotid artery. There is intimal thickening but no significant atherosclerotic plaque noted in the left external carotid artery. Antegrade flow is noted in the left vertebral artery. Procedure Carotid Duplex [id number]. This is a Carotid Duplex examination using B-mode, color flow and specral Doppler. Exam performed in department. VL/Carotid Duplex Ultrasound Interpretation Summary Mild (<50%) stenosis right extracranial internal carotid. Mild (<50%) stenosis left extracranial internal carotid. Patent and antegrade vertebrals bilaterally. Ordering Physician: Zuri Gutierrez Referring Physician: Zuri Gutierrez Performed By: Wendy López, STEVE, RVT
== END | disposition home or self-care (01) ==
LOC: CVS 14:39
PROVIDERS: PCP Internal Medicine; Referring Provider Internal Medicine; Visit Provider Internal Medicine
DX: I65.23 Occlusion and stenosis of bilateral carotid arteries (principal)
CPT/HCPCS: 93880

== ENCOUNTER → 2023-03-09 | Outpatient (CLI) | payer MEDICARE, SELFPAY ==
--- NOTE | 2023-03-09 13:45 | SP.MBSS_ITS ---
Modified Barium Swallow Patient Information Study Date: 03/09/23 Study Time: 13:00 Direct Billable Minutes: 150 Total Minutes procedure & reportin Diagnosis: Dysphagia, oropharyngeal phase (R13.12) Referring Physician: Zuri Gutierrez Reason for Referral: Objectively assess swallow function, risk for aspiration and to determine recommendations for LRD and compensatory strategies to improve safety of swallow. Medical History: Patient is a 78 year old female w/ PMHx including but not limited to anemia, dementia, malnutrition, KATINA, osteoporosis, osteoarthritis, depression, fibromyalgia, hypertension, GERD, COPD, atrial fibrillation and hyperlipidemia here for Modified Barium Swallow Study. Patient is accompanied by her daughter in law. D/t dementia - patient is a poor historian and majority of the history is provided by DIL. DIL reports increased difficulty taking medication, coughing w/ PO intake. DIL reports patient having MBSS done in the past, no record of MBSS in [facility] EMR. Denies hx of PNA. Current Diet Ordered: Regular / Thin Liquids Dentition: WNL and Natural Teeth Mental Status: Impaired Comment: Dementia Respiratory Status: Oxygenating on Room Air Penetration-Aspiration Scale Penetration-Aspiration Scale: OBJECTIVE ASSESSMENT OF SWALLOW FUNCTION (QUANTITATIVE ? PER TRIAL): PENETRATION / ASPIRATION SCALE ([place]): 1 = does not enter airway 2 = enters airway/above vocal folds/ejected 3 = enters airway/above vocal folds/not ejected 4 = enters airway/contacts vocal folds/ejected 5 = enters airway/contacts vocal folds/not ejected 6 = enters airway/below vocal folds/ejected 7 = enters airway/below vocal folds/not ejected despite effort 8 = enters airway/below vocal folds/no effort VIDEOFLOROSCOPIC SCALE SCORE ([place]): Grade I = aspiration of material that has penetrated into the laryngeal vestibule, intact cough reflex Grade II = aspiration < 10 % of the bolus, intact cough reflex Grade III = aspiration of < 10 % of the bolus, reduced cough reflex or aspiration of > 10 % of the bolus, intact cough reflex Grade IV = aspiration of > 10 % of the bolus, reduced cough reflex Penetration-Aspiration Scale Score Thin Liquid via teaspoon: Result: 1= does not enter airway Thin Liquid via sequential sips: cup: Result: 2= enter airway/above vocal folds/ejected Comment: un-cued sequential sips Thin Liquid via small single sip: cup: Result: 2= enter airway/above vocal folds/ejected Comment: cued for small sips Cecilia Thick Liquid via small single sip: cup: Result: 2= enter airway/above vocal folds/ejected Honey Thick Liquid via small single sip: cup: Result: 1= does not enter airway Pudding: Result: 1= does not enter airway Thin Liquid via sequential sips: cup Trial 2: Result: 2= enter airway/above vocal folds/ejected Cookie: Result: 1= does not enter airway Barium Tablet via small single sip: cup: Result: 1= does not enter airway Barium Tablet Other: Result: 1= does not enter airway Comment: Barium tablet in puree Oral Phase Labial Seal: No Labial Escape Tongue Control During Bolus Hold: Posterior escape of less than half of bolus Bolus Preparation/Mastication: Slow prolonged chewing/mashing with complete recollection Bolus Transport/Lingual Motion: Repetitive/disorganized tongue motion Oral Residue: Residue collection on oral structures Pharyngeal Phase Initiation of Pharyngeal Swallow: Bolus head in valleculae Soft Palate Elevation: No bolus between soft palate and pharyngeal wall Laryngeal Elevation: Partial superior movement thyroid cart/partial apprx aryt- epig petiole Anterior Hyoid Excursion: Partial anterior movement Epiglottic Movement: Partial inversion Laryngeal Vestibule Closure at Height of Swallow: Incomplete; narrow column of air/contrast in laryngeal vestibule Pharyngeal Stripping Wave: Present - diminished Pharyngoesophageal Segment Opening: Parital distension and partial duration; parital obstruction of flow Tongue Base Retraction: Wide column of contrast between tongue base & post. pharyngeal wall Pharyngeal Residue: Collection of residue within or on pharyngeal structures Esophageal Phase Esophageal Clearance: Esophageal retention w/ retrograde flow below pharyngoesophageal seg. Diagnosis/Impression Diagnosis: Mild-mod Dysphagia, oropharyngeal phase (R13.12) Impression: Oral phase primarily characterized by.... - swallow onset delay resulting in premature bolus (<1/2) to the vallecula observed w/ several trials contributing to preprandial penetration - poor bolus control w/ loss to the floor prior to AP transit w/ HTL and pudding trials - mastication inefficiency w/ cookie - suboptimal lingual control w/ noted lingual rolling pattern + piecemeal deglutition contributing to poor oral clearance and reduced lingual lateralization w/ cookie - minimal oral residue spilling to the vallecula observed. Independently cleared w/ use of double swallow. Pharyngeal phase primarily characterized by... - delayed pharyngeal onset timing resulting in suboptimal bolus location upon swallow onset. - reduced closure of airway during the swallow attributed to decreased laryngeal elevation and reduced anterior excursion resulting in insufficient/ inconsistent epiglottic inversion - penetration observed w/ thin via tsp., thin via cup (single + sequential) and NTL that was completely ejected - poor pharyngeal motility attributed to reduced tongue base retraction and reduced posterior pharyngeal stripping wave resulting in pharyngeal retention within the vallecula that spills to the pyriforms. Pharyngeal residues decreased w/ use of double swallow. * Daughter's initial concern was increased difficulty w/ medications. TUBE LASER OPERATOR trialed barium tablet w/ solar hot water installer w/ mildly delayed AP transit requiring 2 swallows w/ no suspected aspiration. TUBE LASER OPERATOR trialed barium tablet coated in pudding w/ lingual pumping, severely delayed AP transit w/ piecemeal deglutition. Patient required >15s-20s to swallow 1 pill d/t oral deficits. Recommending medications 1x/time w/ solar hot water installer. Esophageal phase primarily characterized by... - retention w/ retrograde flow observed. Somewhat improved w/ use of liquid wash. - recommend GI referral - hx of GERD. Recommendations Diet: Mechanical Soft Textures and Thin Liquids Compensatory Strategies: Small Bites, Small Sips, Multiple Swallows, Alternate bites/solids and sips/liquids, Sitting upright, Remain sitting upright for 30 minutes after PO intake, Minimize/decrease distractions and Assist with verbal cues to use recommended strategies Supervision: Assist as needed and Distant Supervision Recommend Repeat Modified Barium Swallow: TBD Need for Skilled Speech Therapy Services: Yes Comment: Patient would benefit from skilled ST services to target continued diet texture management, training / implementation of recommended compensatory strategies and training / implementation of recommended oropharyngeal exercises to improve swallow function. Recommended Referrals: GI Consult Education Completed: 1. Described result of evaluation., 2. Pt understands evaluation & agrees with goals and treatment plan. and 4. Family/caregivers understand evaluation & agree w/ goals & tx plan. Status Active ST Patient: Active Contact Information [facility]:: Kalina Pearson M.A. [facility]TUBE LASER OPERATOR Speech-Language Pathologist [facility] [address] [place] [address] [email or web address] [phone]
== END | disposition home or self-care (01) ==
LOC: RAD 12:57
PROVIDERS: PCP Internal Medicine; Referring Provider Internal Medicine; Visit Provider Internal Medicine
DX: R05.9 Cough, unspecified (principal)
CPT/HCPCS: 74230; 92611

== ENCOUNTER → 2023-06-09 | Outpatient (CLI) | payer MEDICARE, SELFPAY ==
--- NOTE | 2023-06-09 15:29 | BD_ITS ---
STUDY: DUAL ENERGY X-RAY ABSORPTIOMETRY / DXA REASON FOR EXAM: Female, 78 years old. [id number] TECHNIQUE: Bone Mineral Density (BMD) measurements of lumbar spine and bilateral hips were obtained. COMPARISON: Comparison is made with prior study dated April 03, 2021. FINDINGS: Lumbar Spine (L1-L4): g/cm2 (0.775) / T-score (-1.9) / Z-score (0.6) Findings are suggestive of osteopenia with a moderate fracture risk. Left Femur Total: g/cm2 (0.618) / T-score (-2.7) / Z-score (-0.7) Left Femoral Neck: g/cm2 (0.542) / T-score (-2.8) / Z-score (-0.5) Right Femur Total: g/cm2 (0.552) / T-score (-3.2) / Z-score (-1.2) Right Femoral Neck: g/cm2 (0.470) / T-score (-3.4) / Z-score (-1.2) The T-Scores on the most recent prior examination were: Lumbar Spine (L1-L4): There has been improvement of bone density since the previous examination. Left Femur Total: which represents an improvement of 4.4%. Right Femur Total: which represents a worsening of 0.8%. BD/Dexa Bone Density Study IMPRESSION: The patient is considered osteoporotic as outlined below according to World Kade Organization (WHO) criteria with a high fracture risk. There has been improvement of bone density since the previous examination. Reference Information: The T-score is the number of standard deviations above or below the standard which is normal for young adults at their peak bone mineral density. The World Health Organization (WHO) interprets the T-scores as follows: Above -1 Normal bone density Between -1 and -2.5 Osteopenia Equal to / or below -2.5 Osteoporosis As a practical clinical guideline, osteopenia may be graded as follows: Mild -1 through -1.5 Moderate -1.6 through -2.0 Severe -2.1 through -2.4 The Z-score is the number of standard deviations above or below age-matched controls. A Z-score of less than -1.5 would be considered abnormal. References: 1. NIH Osteoporosis and Related Bone Diseases www osteo.org 2. International Society for Clinical Densitometry www iscd.org 3. National Osteoporosis Foundation www nof.org Electronically Signed: Johnny Gilman MD at 12:58 EDT ,
== END | disposition home or self-care (01) ==
PROVIDERS: PCP Internal Medicine; Referring Provider Internal Medicine; Visit Provider Internal Medicine
DX: M81.0 Age-related osteoporosis without current pathological fracture (principal); Z78.0 Asymptomatic menopausal state
CPT/HCPCS: 77080

== ENCOUNTER 2023-10-01 08:46 | Outpatient (CLI) | payer MEDICARE, SELFPAY ==
[2023-10-01 09:06] VITALS: BP 146/63; PULSE 72; RESP 16; TEMP 36; O2SAT 99; BMI 24.9
[2023-10-01] MEDS: Zoledronic Acid 5 MG 100 ML 300 MG IV (09:18)
[2023-10-01] MEDS: 0.9% NaCl Peripheral Flush Adult/Peds IV (09:21)
[2023-10-01 09:53] VITALS: BP 122/58; PULSE 73; RESP 16; TEMP 36.4; O2SAT 97
== END 2023-10-01 23:59 | disposition home or self-care (01) ==
LOC: MEDOUTP 08:47
PROVIDERS: PCP Internal Medicine; Referring Provider Internal Medicine; Visit Provider Internal Medicine
DX: M81.8 Other osteoporosis without current pathological fracture (principal)
CPT/HCPCS: 96365; A4216; J3489

== ENCOUNTER → 2024-05-08 | Outpatient (CLI) | payer MEDICARE, SELFPAY ==
[2024-05-08 13:54] LABS: Mucous, Urine 0 SEEN /hpf (<or=2+); Squamous Epithelial Cells - UA 0 SEEN /hpf (5-10)
[2024-05-08 13:58] LABS: Color, Urine Yellow (Yellow); Glucose, Dipstick Normal (Normal); Ketone-Dipstick Negative (Negative); Leukocyte Esterase-Dipstick 500 /ul (Negative); Nitrite-Dipstick Negative (Negative); Occult Blood-Urine 250 /ul (Negative); Protein-Dipstick 100 mg/dl (Negative); Specific Gravity, Urine 1.025 (1.002-1.030); Urine Bilirubin Dipstick Negative (Negative); Urine Clarity Turbid (Clear); Urine Urobilinogen Normal (Normal)
[2024-05-08 14:15] LABS: White Blood Cells >100 SEEN /hpf (0-5)
[2024-05-08 14:17] LABS: Bacteria 2+ /hpf (None Seen); Red Blood Cells-Urine 10-25 SEEN /hpf (0-5)
== END | disposition home or self-care (01) ==
LOC: LABSPEC 13:18
PROVIDERS: PCP Internal Medicine; Referring Provider Emergency Medicine; Visit Provider Emergency Medicine
DX: R82.90 Unspecified abnormal findings in urine (principal)
CPT/HCPCS: 81001